=== PATIENT | male | born 1965 | race African-American/Black ===

== ENCOUNTER 2019-10-07 11:35 | Emergency (ER) | payer MEDICAID, OTHER ==
[~2019-10-07] VITALS: Ht 157.5 cm; Wt 63.5 kg
--- NOTE | 2019-10-07 11:35 | NUR ---
ED Nurse Note: Pt brought in by ambulance from [facility] d/t hgb < 7. Pt is A+Ox0, nonverbal. Per EMS, this is pt's baseline. Respirations are even and unlabored on cool aerosol T-piece. O2 saturation 100%. All other vitals stable as documented. BP 90s sytolic. ED MD aware and NS will be ordered and administered. G-tube noted. Pt placed in monitored bed.
--- NOTE | 2019-10-07 11:42 | Emergency Room Report ---
History of Present Illness General Chief Complaint: Abnormal Labs Source: EMS Present Illness HPI Disclaimer: Please note that this report is being documented using DRAGON technology. This can lead to erroneous entry secondary to incorrect interpretation by the dictating instrument. HPI: This is a 54-year-old male presenting from assisted living facility for evaluation of anemia and elevated BUN. The patient has a history of intracranial bleed with resultant paraplegia, nonverbal, trach to humidified air and G-tube dependent feeding. He does not follow commands. According to transport paperwork the patient was found to have a hemoglobin of 6.6 and hematocrit of 22.9% this morning on labs. Also found to have an elevated BUN. Paperwork also states he is being treated for a left eye infection with ophthalmic drops. Patient is nonverbal cannot provide any history. PMH: Intracranial hemorrhage, paraplegia, nonverbal baseline, trach dependent, G -tube feeding dependent PSH: Tracheostomy, G-tube feeds Allergies: Reviewed Social Hx: Unable to obtain Allergies: Coded Allergies: No Known Allergies (Unverified , 10/07/19) Review of Systems All Other Systems: limited - Patient clinical condition Physical Exam Vital Signs Date Time Temp Pulse Resp B/P (MAP) Pulse Ox O2 Delivery O2 Flow Rate FiO2 10/07/19 11:26 98.4 80 18 94/60 (71) 100 Room Air General: Awake HEENT: NC/AT. Left eye is closed, right eyes open. Right eye is normal in appearance. Left cornea is opacified and sclera is erythematous. No active exudate at this time. Neck: Tracheostomy collar in place Cardiovascular: RRR. S1 and S2 normal. No murmur appreciated Resp: Normal work of breathing. No cough, wheezing or crackles appreciated Abdomen: Abdomen is soft, nondistended. G-tube site clean dry and intact MSK: Decreased bulk. Spasticity in the left upper extremity Neuro: Awake. Nonverbal. No spontaneous movements. Spasticity in the left upper extremity. Flaccid on the right. Medical Decision Making Diagnostic Impression: Primary Impression: Anemia Additional Impressions: Leukocytosis Thrombocytosis TR (acute kidney injury) ER Course 54-year-old male presents from his surgical nursing facility for evaluation of elevated BUN and low hemoglobin. He has a history of anemia. Will repeat labs to confirm these values and prepare for transfusion. He will require admission. Laboratory Tests Test 10/07/19 11:50 White Blood Count 20.1 K/UL (4.8-10.8) H Red Blood Count 2.61 M/UL (4.70-6.10) L Hemoglobin 7.5 G/DL (14.2-18.0) L Hematocrit 22.7 % (42.0-52.0) L Mean Corpuscular Volume 87 FL (80-99) Mean Corpuscular Hemoglobin 28.9 PG (27.0-31.0) Mean Corpuscular Hemoglobin Concent 33.2 G/DL (32.0-36.0) Red Cell Distribution Width 15.1 % (11.6-14.8) H Platelet Count 533 K/UL (150-450) H Mean Platelet Volume 7.9 FL (6.5-10.1) Neutrophils (%) (Auto) % (45.0-75.0) Lymphocytes (%) (Auto) % (20.0-45.0) Monocytes (%) (Auto) % (1.0-10.0) Eosinophils (%) (Auto) % (0.0-3.0) Basophils (%) (Auto) % (0.0-2.0) Differential Total Cells Counted 100 Neutrophils % (Manual) 71 % (45-75) Lymphocytes % (Manual) 20 % (20-45) Monocytes % (Manual) 7 % (1-10) Eosinophils % (Manual) 2 % (0-3) Basophils % (Manual) 0 % (0-2) Band Neutrophils 0 % (0-8) Platelet Estimate Adequate Platelet Morphology Normal Hypochromasia 3+ Anisocytosis 1+ Sodium Level 138 MMOL/L (136-145) Potassium Level 4.2 MMOL/L (3.5-5.1) Chloride Level 103 MMOL/L (98-107) Carbon Dioxide Level 35 MMOL/L (21-32) H Anion Gap 0 mmol/L (5-15) L Blood Urea Nitrogen 106 mg/dL (7-18) H Creatinine 1.9 MG/DL (0.55-1.30) H Estimate Glomerular Filtration Rate 45.2 mL/min (>60) Glucose Level 129 MG/DL (74-106) H Calcium Level 10.5 MG/DL (8.5-10.1) H Total Bilirubin 0.1 MG/DL (0.2-1.0) L Aspartate Amino Transferase (AST) 32 U/L (15-37) Alanine Aminotransferase (ALT) 23 U/L (12-78) Alkaline Phosphatase 108 U/L (46-116) Total Protein 8.7 G/DL (6.4-8.2) H Albumin 1.7 G/DL (3.4-5.0) L Globulin 7.0 g/dL Albumin/Globulin Ratio 0.2 (1.0-2.7) L Reevaluation Time: 13:35 Last Vital Signs Date Time Temp Pulse Resp B/P (MAP) Pulse Ox O2 Delivery O2 Flow Rate FiO2 10/07/19 11:26 98.4 80 18 94/60 (71) 100 Room Air Reevaluation Impression Labs do show anemia with a hemoglobin of 7.5. Also show a leukocytosis and thrombocytosis. Creatinine elevated 1.9 with a BUN of 108. Discussed with [facility] physician who is excepted for transfer on telemetry. Asked for a FOBT stool. Stool is dark but negative for blood. He states the anemia, leukocytosis and elevated platelets are the patient's baseline. He is not recommending transfusion at this time. We will continue IV fluids and transfer the patient to a [facility] hospital. Disposition: XFER SHT-TRM HOSP Condition: Stable Jai Buck MD Oct 07, 2019 11:42
[2019-10-07 11:45] VITALS: BP 90/55
[2019-10-07 12:11] LABS: HEMATOCRIT 22.7 % (42.0-52.0); HEMOGLOBIN 7.5 G/DL (14.2-18.0); MEAN CORPUSCULAR VOLUME 87 FL (80-99); PLATELET COUNT 533 K/UL (150-450); RED BLOOD COUNT 2.61 M/UL (4.70-6.10); RED CELL DISTRIBUTION WIDTH 15.1 % (11.6-14.8); WHITE BLOOD COUNT 20.1 K/UL (4.8-10.8)
[2019-10-07 12:28] LABS: ALANINE AMINOTRANSFERASE 23 U/L (12-78); ALBUMIN 1.7 G/DL (3.4-5.0); ALBUMIN/GLOBULIN RATIO 0.2 (1.0-2.7); ALKALINE PHOSPHATASE 108 U/L (46-116); ANION GAP 0 mmol/L (5-15); ASPARTATE AMINO TRANSFERASE 32 U/L (15-37); BILIRUBIN,TOTAL 0.1 MG/DL (0.2-1.0); BLOOD UREA NITROGEN 106 mg/dL (7-18); CARBON DIOXIDE 35 MMOL/L (21-32); CHLORIDE 103 MMOL/L (98-107); CREATININE 1.9 MG/DL (0.55-1.30); POTASSIUM 4.2 MMOL/L (3.5-5.1); SODIUM 138 MMOL/L (136-145)
[2019-10-07] MEDS ORDERED: ZINC SULFATE220 M1 GT (12:32)
[2019-10-07] MEDS ORDERED: COLACE100 MG GT (12:32)
[2019-10-07] MEDS ORDERED: VITAMIN C500 M1 GT (12:32)
[2019-10-07] MEDS ORDERED: MILK OF MA400 MG/51 ESINUS (12:32)
[2019-10-07] MEDS ORDERED: ALBUTEROL2.5 MG/3 M INH (12:32)
[2019-10-07] MEDS ORDERED: SENNA S TABLET1 EAC1 PO (12:32)
[2019-10-07] MEDS ORDERED: BACTRIM-DS1 EA ORAL (12:32)
[2019-10-07] MEDS ORDERED: FERROUS SULFAT325 MG GT (12:32)
[2019-10-07 13:10] LABS: CALCIUM 10.5 MG/DL (8.5-10.1)
--- NOTE | 2019-10-07 13:52 | NUR ---
ED Nurse Note: Rectal exam done by ERMD and assisted by 1 RN.
--- NOTE | 2019-10-07 14:53 | NUR ---
ED Nurse Note: Report given to NICOLE Sainz @ [facility].
--- NOTE | 2019-10-07 14:56 | NUR ---
ED Nurse Note: [facility] 26 @ bedside. Report given to ambulance personnel
[2019-10-07 15:10] VITALS: BP 94/59
--- NOTE | 2019-10-07 15:10 | NUR ---
ED Nurse Note: Pt in stable condition, discharging with IVs accompanied by ambulance personnel. Vitals stable as documented. Respirations even and unlabored on cool aerosol on the tracheostomy. Pt discharged safely en route to [facility]. ID band removed.
--- NOTE | 2019-10-07 15:14 | NUR ---
patients daughter has been notified regarding the transfer to [facility]
== END 2019-10-07 15:10 | disposition short-term general hospital (02) ==
LOC: EDBD 11:35 → EMR 12:00 → CANBEDREQ 12:36 → EDBEDREQ 13:26 → EMR 15:10
DX: D64.9 Anemia, unspecified (principal); D72.829 Elevated white blood cell count, unspecified; D47.3 Essential (hemorrhagic) thrombocythemia; N17.9 Acute kidney failure, unspecified; G82.20 Paraplegia, unspecified; Z93.0 Tracheostomy status; Z93.1 Gastrostomy status; Z86.79 Personal history of other diseases of the circulatory system
CPT/HCPCS: 36415; 80053; 85007; 85025; 86850; 86900; 86901; 96360; J7030; Z7502; 99284

== ENCOUNTER 2019-12-30 19:26 | Inpatient (IN) | payer MEDICAID, OTHER ==
[~2019-12-30] VITALS: Ht 165.1 cm; Wt 84.4 kg
[~2019-12-30 19:26] MED LIST: ALBUTEROL2.5 MG/3 M INH; BACTRIM-DS1 EA ORAL; COLACE100 MG GT; FERROUS SULFAT325 MG GT; MILK OF MA400 MG/51 ESINUS; SENNA S TABLET1 EAC1 PO; VITAMIN C500 M1 GT; ZINC SULFATE220 M1 GT
[2019-12-30 19:30] VITALS: BP 102/51
--- NOTE | 2019-12-30 19:33 | Emergency Room Report ---
History of Present Illness General Chief Complaint: Coffee-ground emesis Source: Medical Record, EMS Present Illness HPI Disclaimer: Please note that this report is being documented using DRAGON technology. This can lead to erroneous entry secondary to incorrect interpretation by the dictating instrument. HPI: This is a 54-year-old male who is trach and vent dependent presenting from convalescent home for evaluation of coffee-ground emesis. The patient has a history of intracranial bleed with resultant paraplegia, nonverbal, trach and G- tube dependent. He does not follow commands. According to transport paperwork the patient was f at 1 hour of coffee-ground emesis prior to arrival. Also found to have an elevated BUN. Patient is nonverbal cannot provide any history. No reports of fever or changes in vital signs. PMH: Intracranial hemorrhage, paraplegia, nonverbal baseline, trach dependent, G -tube feeding dependent PSH: Tracheostomy, G-tube feeds Allergies: Reviewed in chart Social Hx: Unable to obtain Allergies: Coded Allergies: No Known Allergies (Unverified , 10/07/19) Nursing Documentation-PMH Hx Hypertension: Yes Hx Diabetes: Yes Hx Cerebrovascular Accident: Yes - BRAIN BLEED Review of Systems All Other Systems: limited - Unable to obtain from patient due to Physical Exam General: Sleeping comfortably, no distress HEENT: NC/AT. Arrives in an [place] collar. Dark emesis stains around collar Neck: Tracheostomy collar in place, arrives in [place] collar Cardiovascular: RRR. S1 and S2 normal. No murmur appreciated Resp: Vent dependent. Normal work of breathing. No cough, wheezing or crackles appreciated Abdomen: Abdomen is soft, nondistended. G-tube site clean dry and intact MSK: Decreased bulk. Spasticity in the left upper extremity Neuro: Awake. Nonverbal. No spontaneous movements. Spasticity in the left upper extremity. Flaccid on the right. Procedures Critical Care Time Critical Care Time Total critical care time: Approximately 45 minutes Due to a high probability of clinically significant, life threatening deterioration, the patient required the highest level of preparedness to intervene emergently and I personally spent this critical care time directly and personally managing the patient. This critical care time included obtaining a history, examining the patient, pulse oximetry, ordering and reviewing studies , ordering treatments, evaluating response to treatment and updating management plan as needed, frequent reassessment and discussion with other providers as well as arranging for ultimate disposition. This critical to care time was performed to assess and manage the high probability of life-threatening deterioration that could result in multiorgan failure. This critical care time is separate from the separately billable procedures and treating other patients. Medical Decision Making Diagnostic Impression: Primary Impression: Upper GI bleed Additional Impressions: Hyperkalemia ARF (acute renal failure) Hyponatremia ER Course 54-year-old male who is trach and G-tube dependent presents for evaluation of coffee-ground emesis. Concern for upper GI bleed. On arrival the patient had one episode of coffee-ground emesis witnessed by nursing staff as well as some bright red vomitus as well. Will obtain broad labs, give Protonix, ceftriaxone and the patient will require admission. Patient was swabbed for COVID at his facility 1 week ago but the results are still pending. We will keep in respiratory isolation. Patient will be admitted to D, Dr. De Dios Laboratory Tests Test 12/30/19 19:50 12/30/19 21:45 Prothrombin Time 13.8 SEC (9.30-11.50) H Prothrombin Time INR 1.3 (0.9-1.1) H Activated Partial Thromboplast Time 29 SEC (23-33) White Blood Count 17.7 K/UL (4.8-10.8) H Red Blood Count 2.65 M/UL (4.70-6.10) L Hemoglobin 7.8 G/DL (14.2-18.0) L Hematocrit 24.4 % (42.0-52.0) L Mean Corpuscular Volume 92 FL (80-99) Mean Corpuscular Hemoglobin 29.6 PG (27.0-31.0) Mean Corpuscular Hemoglobin Concent 32.2 G/DL (32.0-36.0) Red Cell Distribution Width 16.6 % (11.6-14.8) H Platelet Count 78 K/UL (150-450) L Mean Platelet Volume 13.2 FL (6.5-10.1) H Neutrophils (%) (Auto) % (45.0-75.0) Lymphocytes (%) (Auto) % (20.0-45.0) Monocytes (%) (Auto) % (1.0-10.0) Eosinophils (%) (Auto) % (0.0-3.0) Basophils (%) (Auto) % (0.0-2.0) Neutrophils % (Manual) Pending Lymphocytes % (Manual) Pending Platelet Estimate Pending Platelet Morphology Pending Sodium Level 122 MMOL/L (136-145) L Potassium Level 7.2 MMOL/L (3.5-5.1) *H Chloride Level 86 MMOL/L (98-107) L Carbon Dioxide Level 23 MMOL/L (21-32) Anion Gap 13 mmol/L (5-15) Blood Urea Nitrogen 220 mg/dL (7-18) H Creatinine 5.3 MG/DL (0.55-1.30) H Estimated Glomerular Filtration Rate 13.8 mL/min (>60) Glucose Level 170 MG/DL (74-106) H Calcium Level 10.5 MG/DL (8.5-10.1) H Total Bilirubin 0.3 MG/DL (0.2-1.0) Aspartate Amino Transferase (AST) 63 U/L (15-37) H Alanine Aminotransferase (ALT) 50 U/L (12-78) Alkaline Phosphatase 127 U/L (46-116) H Total Protein 6.5 G/DL (6.4-8.2) Albumin 0.8 G/DL (3.4-5.0) L Globulin 5.7 g/dL Albumin/Globulin Ratio 0.1 (1.0-2.7) L EKG Diagnostic Results EKG Time: 19:45 Rate: normal Rhythm: NSR ST Segments: no acute changes Other Impression Sinus rhythm, slight left axis, first-degree block with IL interval 224 ms, slight peaking of T waves in V1 and V2 Rhythm Strip Diag. Results Rhythm Strip Time: 19:45 EP Interpretation: yes Rate: 80s Rhythm: NSR, no PVC's, no ectopy Chest X-Ray Diagnostic Results Chest X-Ray Diagnostic Results : Chest X-Ray Ordered: Yes # of Views/Limited/Complete: 1 View Indication: Other - Vomiting EP Interpretation: Yes Interpretation: other - Bilateral lower lobe congestion Impression: Other - Bilateral hazy opacities lower lobes Electronically Signed by: Electronically signed by Dr. Jai Buck Reevaluation Time: 22:18 Status: unchanged Reevaluation Impression Hemoglobin below 8, patient will be transfused. Elevated white count at 17.7. COVID swab is pending from outpatient facility. Treat with ceftriaxone send blood cultures. Chemistry shows a critical potassium at 7.2, sodium of 122, acute renal failure with a GFR of 5.3 and a BUN of 220. There is peaking of the T waves in V1 and V2. Patient was treated with calcium gluconate, insulin and dextrose. Admitted to [facility]. Disposition: ADMITTED INPATIENT Condition: Serious Jai Buck MD December 30, 2019 19:33
[2019-12-30] MEDS ORDERED: Pantoprazole Inj IVP ONE (19:45)
[2019-12-30 20:40] LABS: INR 1.3 (0.9-1.1)
[2019-12-30 21:00] VITALS: BP 113/56
[2019-12-30] MEDS ORDERED: cefTRIAXone 1 GM in NS 55 ML IVPB ONE (21:00)
[2019-12-30 21:55] LABS: HEMATOCRIT 24.4 % (42.0-52.0); HEMOGLOBIN 7.8 G/DL (14.2-18.0); MEAN CORPUSCULAR VOLUME 92 FL (80-99); PLATELET COUNT 78 K/UL (150-450); RED BLOOD COUNT 2.65 M/UL (4.70-6.10); RED CELL DISTRIBUTION WIDTH 16.6 % (11.6-14.8); WHITE BLOOD COUNT 17.7 K/UL (4.8-10.8)
[2019-12-30 22:11] LABS: ALANINE AMINOTRANSFERASE 50 U/L (12-78); ALBUMIN 0.8 G/DL (3.4-5.0); ALBUMIN/GLOBULIN RATIO 0.1 (1.0-2.7); ALKALINE PHOSPHATASE 127 U/L (46-116); ANION GAP 13 mmol/L (5-15); ASPARTATE AMINO TRANSFERASE 63 U/L (15-37); BILIRUBIN,TOTAL 0.3 MG/DL (0.2-1.0); BLOOD UREA NITROGEN 220 mg/dL (7-18); CALCIUM 10.5 MG/DL (8.5-10.1); CARBON DIOXIDE 23 MMOL/L (21-32); CHLORIDE 86 MMOL/L (98-107); CREATININE 5.3 MG/DL (0.55-1.30); SODIUM 122 MMOL/L (136-145)
[2019-12-30 22:13] LABS: POTASSIUM 7.2 MMOL/L (3.5-5.1)
[2019-12-30] MEDS ORDERED: Calcium Gluconate 1gm/10ml vial IVP ONE (22:30)
[2019-12-30] MEDS ORDERED: Insulin Human Regular 100units/ml 3ml IV ONE (22:30)
[2019-12-30 23:33] VITALS: BP 107/52
[2019-12-31] MEDS ORDERED: TYLENOL EXTRA500 MG GT ×2 (01:38→01:39)
[2019-12-31] MEDS ORDERED: LANTUS SOL100 UNIT/1 SUBQ (01:40)
[2019-12-31 01:45] VITALS: BP 140/55
[2019-12-31] MEDS ORDERED: HUMALOG100 UNIT/1 SUBQ (01:49)
[2019-12-31] MEDS ORDERED: ARTIFICIAL TEAR15 ML BOTH EYES (01:53)
[2019-12-31] MEDS ORDERED: ATORVASTATIN CA80 MG ORAL (01:53)
[2019-12-31] MEDS ORDERED: ZYVOX600 MG GT (01:53)
[2019-12-31] MEDS ORDERED: ATORVASTATIN CA80 MG GT (01:54)
[2019-12-31 04:00] VITALS: BP 128/80
[2019-12-31] MEDS ORDERED: Albuterol ud Inhalation HHN PRN (07:45)
[2019-12-31] MEDS ORDERED: Acetaminophen 650mg/20.3ml GT PRN ×2 (07:45)
[2019-12-31 07:56] LABS: HEMATOCRIT 19.2 % (42.0-52.0); MEAN CORPUSCULAR VOLUME 85 FL (80-99); PLATELET COUNT 62 K/UL (150-450); RED BLOOD COUNT 2.26 M/UL (4.70-6.10); RED CELL DISTRIBUTION WIDTH 14.2 % (11.6-14.8); WHITE BLOOD COUNT 21.4 K/UL (4.8-10.8)
[2019-12-31 08:00] VITALS: BP 130/52
[2019-12-31 08:01] LABS: HEMOGLOBIN 6.7 G/DL (14.2-18.0)
[2019-12-31 08:09] LABS: CREATINE KINASE 20 U/L (26-308)
--- NOTE | 2019-12-31 08:09 | History & Physical ---
History and Physical History & Physicial 54-year-old male who is trach and vent dependent presenting from convalescent home for evaluation of coffee-ground emesis. The patient found to be in acute renal failure with elevated K and sever anemia care noted. patient has been in and out of the acute hospital now for the past several months PMH: Intracranial hemorrhage, paraplegia, bed bound, renal failure, trach dependent, G-tube feeding dependent, anemia PSH: Tracheostomy, G-tube feeds Allergies: Reviewed in chart Social Hx: Unable to obtain Allergies: No Known Allergies (Unverified , 10/07/19) Physical WDWN ill appearing clear breath sounds bilaterally without rhonchi or wheeze [id number] without MRG NABS nontender no HSM no CCE trach and GT in place poor LOC Labs Test 12/30/19 19:50 12/30/19 21:45 12/31/19 07:30 Prothrombin Time 13.8 SEC (9.30-11.50) Prothromb Time International Ratio 1.3 (0.9-1.1) Activated Partial Thromboplast Time 29 SEC (23-33) White Blood Count 17.7 K/UL (4.8-10.8) 21.4 K/UL (4.8-10.8) Red Blood Count 2.65 M/UL (4.70-6.10) 2.26 M/UL (4.70-6.10) Hemoglobin 7.8 G/DL (14.2-18.0) 6.7 G/DL (14.2-18.0) Hematocrit 24.4 % (42.0-52.0) 19.2 % (42.0-52.0) Mean Corpuscular Volume 92 FL (80-99) 85 FL (80-99) Mean Corpuscular Hemoglobin 29.6 PG (27.0-31.0) 29.8 PG (27.0-31.0) Mean Corpuscular Hemoglobin Concent 32.2 G/DL (32.0-36.0) 35.1 G/DL (32.0-36.0) Red Cell Distribution Width 16.6 % (11.6-14.8) 14.2 % (11.6-14.8) Platelet Count 78 K/UL (150-450) 62 K/UL (150-450) Mean Platelet Volume 13.2 FL (6.5-10.1) 10.3 FL (6.5-10.1) Neutrophils (%) (Auto) % (45.0-75.0) % (45.0-75.0) Lymphocytes (%) (Auto) % (20.0-45.0) % (20.0-45.0) Monocytes (%) (Auto) % (1.0-10.0) % (1.0-10.0) Eosinophils (%) (Auto) % (0.0-3.0) % (0.0-3.0) Basophils (%) (Auto) % (0.0-2.0) % (0.0-2.0) Differential Total Cells Counted 100 Neutrophils % (Manual) 87 % (45-75) Lymphocytes % (Manual) 11 % (20-45) Monocytes % (Manual) 2 % (1-10) Eosinophils % (Manual) 0 % (0-3) Basophils % (Manual) 0 % (0-2) Band Neutrophils 0 % (0-8) Platelet Estimate Decreased Platelet Morphology Normal Polychromasia 1+ Anisocytosis 1+ Sodium Level 122 MMOL/L (136-145) Potassium Level 7.2 MMOL/L (3.5-5.1) Chloride Level 86 MMOL/L (98-107) Carbon Dioxide Level 23 MMOL/L (21-32) Anion Gap 13 mmol/L (5-15) Blood Urea Nitrogen 220 mg/dL (7-18) Creatinine 5.3 MG/DL (0.55-1.30) Estimat Glomerular Filtration Rate 13.8 mL/min (>60) Glucose Level 170 MG/DL (74-106) Calcium Level 10.5 MG/DL (8.5-10.1) Total Bilirubin 0.3 MG/DL (0.2-1.0) Aspartate Amino Transf (AST/SGOT) 63 U/L (15-37) Alanine Aminotransferase (ALT/SGPT) 50 U/L (12-78) Alkaline Phosphatase 127 U/L (46-116) Total Protein 6.5 G/DL (6.4-8.2) Albumin 0.8 G/DL (3.4-5.0) Globulin 5.7 g/dL Albumin/Globulin Ratio 0.1 (1.0-2.7) IMPRESSION chronic respiratory failure Acute on chronic renal failure elevated K anemia GIB leukocytosis possible sepsis PLAN transfuse IV hydration iv antibiotics ID , GI and renal to see vent hold feeds resume snf meds will d/w family as to advance directives prognosis poor impression, plan, and exam edited and reviewed in detail care discussed with Lorenzo Chase MD December 31, 2019 08:09
--- NOTE | 2019-12-31 08:09 | General Progress Note ---
Subjective Allergies: Coded Allergies: No Known Allergies (Unverified , 10/07/19) Objective Last 24 Hour Vital Signs Date Time Temp Pulse Resp B/P (MAP) Pulse Ox O2 Delivery O2 Flow Rate FiO2 12/31/19 07:20 57 24 40 12/31/19 05:15 67 24 40 12/31/19 04:00 Mechanical Ventilator 5.0 12/31/19 04:00 5.0 40 12/31/19 04:00 96.1 24 128/80 (96) 12/31/19 03:55 66 12/31/19 03:27 Mechanical Ventilator 5.0 12/31/19 02:30 83 24 40 12/31/19 02:15 98.1 75 21 158/59 98 Mechanical Ventilator 5.0 40 12/31/19 01:55 98.1 75 24 12/31/19 01:50 98.1 75 24 12/31/19 01:45 98.1 72 24 12/31/19 01:45 98.1 72 24 140/55 98 Mechanical Ventilator 5.0 40 12/31/19 01:05 80 24 40 12/31/19 00:27 98.2 66 18 12/31/19 00:22 98.1 66 18 12/31/19 00:17 98.2 66 18 12/30/19 23:33 98.1 63 18 107/52 98 Endotracheal Tube 5.0 12/30/19 23:28 64 24 40 12/30/19 21:15 64 24 40 12/30/19 21:00 98.1 64 16 113/56 98 Endotracheal Tube 5.0 12/30/19 19:30 68 18 Mechanical Ventilator 5.0 12/30/19 19:30 75 24 40 12/30/19 19:30 98.1 68 18 102/51 98 Endotracheal Tube 12/30/19 19:29 98.1 106 18 145/85 (105) 98 Endotracheal Tube Intake and Output 12/30/19 12/31/19 19:00 07:00 Intake Total 1652 ml Output Total 700 ml Balance 952 ml Intake IV Total 1127 ml Blood Product 525 ml Output Urine Total 500 ml Stool Total 200 ml # Voids 2 # Bowel Movements 1 Laboratory Tests 12/30/19 19:50: Prothrombin Time 13.8H, Prothromb Time International Ratio 1.3H, Activated Partial Thromboplast Time 29 12/30/19 21:45: White Blood Count 17.7H, Red Blood Count 2.65L, Hemoglobin 7.8L, Hematocrit 24.4L, Mean Corpuscular Volume 92, Mean Corpuscular Hemoglobin 29.6, Mean Corpuscular Hemoglobin Concent 32.2, Red Cell Distribution Width 16.6H, Platelet Count 78L, Mean Platelet Volume 13.2H, Neutrophils (%) (Auto) , Lymphocytes (%) (Auto) , Monocytes (%) (Auto) , Eosinophils (%) (Auto) , Basophils (%) (Auto) , Differential Total Cells Counted 100, Neutrophils % ( Manual) 87H, Lymphocytes % (Manual) 11L, Monocytes % (Manual) 2, Eosinophils % ( Manual) 0, Basophils % (Manual) 0, Band Neutrophils 0, Platelet Estimate DecreasedL, Platelet Morphology Normal, Polychromasia 1+, Anisocytosis 1+, Sodium Level 122L, Potassium Level 7.2*H, Chloride Level 86L, Carbon Dioxide Level 23, Anion Gap 13, Blood Urea Nitrogen 220H, Creatinine 5.3H, Estimat Glomerular Filtration Rate 13.8, Glucose Level 170H, Calcium Level 10.5H, Total Bilirubin 0.3, Aspartate Amino Transf (AST/SGOT) 63H, Alanine Aminotransferase ( ALT/SGPT) 50, Alkaline Phosphatase 127H, Total Protein 6.5, Albumin 0.8L, Globulin 5.7, Albumin/Globulin Ratio 0.1L 12/31/19 07:30: White Blood Count 21.4H, Red Blood Count 2.26L, Hemoglobin 6.7*L, Hematocrit 19.2L, Mean Corpuscular Volume 85, Mean Corpuscular Hemoglobin 29.8, Mean Corpuscular Hemoglobin Concent 35.1, Red Cell Distribution Width 14.2, Platelet Count 62L, Mean Platelet Volume 10.3H, Neutrophils (%) (Auto) , Lymphocytes (%) (Auto) , Monocytes (%) (Auto) , Eosinophils (%) (Auto) , Basophils (%) (Auto) , Neutrophils % (Manual) [Pending], Lymphocytes % (Manual) [Pending], Platelet Estimate [Pending], Platelet Morphology [Pending], Sodium Level [Pending], Potassium Level [Pending], Chloride Level [Pending], Carbon Dioxide Level [ Pending], Blood Urea Nitrogen [Pending], Creatinine [Pending], Estimat Glomerular Filtration Rate [Pending], Glucose Level [Pending], Calcium Level [ Pending], Uric Acid [Pending], Total Creatine Kinase [Pending] Height (Feet): 5 Height (Inches): 5.00 Weight (Pounds): 146 Lorenzo De Dios MD December 31, 2019 08:09
[2019-12-31 08:29] LABS: ANION GAP 16 mmol/L (5-15); BLOOD UREA NITROGEN 217 mg/dL (7-18); CARBON DIOXIDE 20 MMOL/L (21-32); CHLORIDE 88 MMOL/L (98-107); CREATININE 5.2 MG/DL (0.55-1.30); SODIUM 124 MMOL/L (136-145)
[2019-12-31 08:30] LABS: POTASSIUM 6.5 MMOL/L (3.5-5.1)
[2019-12-31] MEDS: Lokelma 10gm Pkt ORAL SCH ×3 (08:40→22:29)
[2019-12-31] MEDS ORDERED: Ascorbic Acid 500mg tab GT SCH (09:00)
--- NOTE | 2019-12-31 09:31 | Diagnostic Imaging Report ---
Procedure: XRAY Chest 1v Reason for study: Reason For Exam: SOB Comparison films: None. FINDINGS: There is a tracheostomy in place. Vascularity is normal. Hazy densities in the lung bases may be layering effusions. Cardiac and mediastinal silhouette are within normal limits. The bony thorax appear unremarkable. IMPRESSION: Bibasilar hazy densities perhaps layering effusions.
[2019-12-31] MEDS: Docusate 100mg/10ml Liq GT SCH (10:01)
[2019-12-31] MEDS: Ferrous Sulfate 300 MG/5 ML UDC GT SCH (10:01)
[2019-12-31] MEDS: Milk of Magnesia 30ml Ud GT SCH (10:01)
[2019-12-31] MEDS: Ascorbic Acid 500mg tab GT SCH (10:02)
[2019-12-31] MEDS: Zinc Sulfate 220mg GT SCH (10:02)
[2019-12-31] MEDS: Pantoprazole Inj IVP SCH (10:02)
[2019-12-31] MEDS: Piperacillin/Tazobactam 3.375 GM in NS 110 ML IVPB SCH ×2 (10:02→22:21)
[2019-12-31] MEDS: Levemir Flexpen SUBQ SCH ×2 (10:06→21:00)
--- NOTE | 2019-12-31 11:09 | General Progress Note ---
Assessment/Plan Assessment/Plan: sepsis anemia GIB thrombocytopenia hyponatremia ARF DM dysphagia with GT pending blood transfusion ppi bid keep npo GI procedures on hold pending COVID clearance fu H&H fu nephrology plan TF tomorrow if stable Subjective ROS Limited/Unobtainable: No Allergies: Coded Allergies: No Known Allergies (Unverified , 10/07/19) Objective Last 24 Hour Vital Signs Date Time Temp Pulse Resp B/P (MAP) Pulse Ox O2 Delivery O2 Flow Rate FiO2 12/31/19 11:03 54 24 40 12/31/19 09:15 64 24 40 12/31/19 08:00 77 12/31/19 08:00 96.3 18 130/52 (78) 100 12/31/19 08:00 5.0 40 12/31/19 08:00 Mechanical Ventilator 5.0 12/31/19 08:00 57 12/31/19 07:20 57 24 40 12/31/19 05:15 67 24 40 12/31/19 04:00 Mechanical Ventilator 5.0 12/31/19 04:00 5.0 40 12/31/19 04:00 96.1 24 128/80 (96) 12/31/19 03:55 66 12/31/19 03:27 Mechanical Ventilator 5.0 12/31/19 02:30 83 24 40 12/31/19 02:15 98.1 75 21 158/59 98 Mechanical Ventilator 5.0 40 12/31/19 01:55 98.1 75 24 12/31/19 01:50 98.1 75 24 12/31/19 01:45 98.1 72 24 12/31/19 01:45 98.1 72 24 140/55 98 Mechanical Ventilator 5.0 40 12/31/19 01:05 80 24 40 12/31/19 00:27 98.2 66 18 12/31/19 00:22 98.1 66 18 12/31/19 00:17 98.2 66 18 12/30/19 23:33 98.1 63 18 107/52 98 Endotracheal Tube 5.0 12/30/19 23:28 64 24 40 12/30/19 21:15 64 24 40 12/30/19 21:00 98.1 64 16 113/56 98 Endotracheal Tube 5.0 12/30/19 19:30 68 18 Mechanical Ventilator 5.0 12/30/19 19:30 75 24 40 12/30/19 19:30 98.1 68 18 102/51 98 Endotracheal Tube 12/30/19 19:29 98.1 106 18 145/85 (105) 98 Endotracheal Tube Intake and Output 12/30/19 12/31/19 19:00 07:00 Intake Total 1652 ml Output Total 700 ml Balance 952 ml Intake IV Total 1127 ml Blood Product 525 ml Output Urine Total 500 ml Stool Total 200 ml # Voids 2 # Bowel Movements 1 Laboratory Tests 12/30/19 19:50: Prothrombin Time 13.8H, Prothromb Time International Ratio 1.3H, Activated Partial Thromboplast Time 29 12/30/19 21:45: White Blood Count 17.7H, Red Blood Count 2.65L, Hemoglobin 7.8L, Hematocrit 24.4L, Mean Corpuscular Volume 92, Mean Corpuscular Hemoglobin 29.6, Mean Corpuscular Hemoglobin Concent 32.2, Red Cell Distribution Width 16.6H, Platelet Count 78L, Mean Platelet Volume 13.2H, Neutrophils (%) (Auto) , Lymphocytes (%) (Auto) , Monocytes (%) (Auto) , Eosinophils (%) (Auto) , Basophils (%) (Auto) , Differential Total Cells Counted 100, Neutrophils % ( Manual) 87H, Lymphocytes % (Manual) 11L, Monocytes % (Manual) 2, Eosinophils % ( Manual) 0, Basophils % (Manual) 0, Band Neutrophils 0, Platelet Estimate DecreasedL, Platelet Morphology Normal, Polychromasia 1+, Anisocytosis 1+, Sodium Level 122L, Potassium Level 7.2*H, Chloride Level 86L, Carbon Dioxide Level 23, Anion Gap 13, Blood Urea Nitrogen 220H, Creatinine 5.3H, Estimat Glomerular Filtration Rate 13.8, Glucose Level 170H, Calcium Level 10.5H, Total Bilirubin 0.3, Aspartate Amino Transf (AST/SGOT) 63H, Alanine Aminotransferase ( ALT/SGPT) 50, Alkaline Phosphatase 127H, Total Protein 6.5, Albumin 0.8L, Globulin 5.7, Albumin/Globulin Ratio 0.1L 12/31/19 07:30: White Blood Count 21.4H, Red Blood Count 2.26L, Hemoglobin 6.7*L, Hematocrit 19.2L, Mean Corpuscular Volume 85, Mean Corpuscular Hemoglobin 29.8, Mean Corpuscular Hemoglobin Concent 35.1, Red Cell Distribution Width 14.2, Platelet Count 62L, Mean Platelet Volume 10.3H, Neutrophils (%) (Auto) , Lymphocytes (%) (Auto) , Monocytes (%) (Auto) , Eosinophils (%) (Auto) , Basophils (%) (Auto) , Differential Total Cells Counted 100, Neutrophils % (Manual) 81H, Lymphocytes % (Manual) 9L, Monocytes % (Manual) 5, Eosinophils % (Manual) 5H, Basophils % ( Manual) 0, Band Neutrophils 0, Platelet Estimate DecreasedL, Platelet Morphology Normal, Sodium Level 124L, Potassium Level 6.5*H, Chloride Level 88L , Carbon Dioxide Level 20L, Anion Gap 16H, Blood Urea Nitrogen 217H, Creatinine 5.2H, Estimat Glomerular Filtration Rate 14.2, Glucose Level 132H, Calcium Level 10.0, Hypochromasia 4+, Uric Acid 8.3H, Total Creatine Kinase 20L Height (Feet): 5 Height (Inches): 5.00 Weight (Pounds): 146 General Appearance: no apparent distress EENT: normal ENT inspection Neck: supple Cardiovascular: tachycardia Respiratory/Chest: decreased breath sounds Abdomen: normal bowel sounds, non tender, soft Extremities: non-tender Toni Mckenzie MD December 31, 2019 11:09
[2019-12-31 12:00] VITALS: BP 131/54
[2019-12-31] MEDS: Insulin NovoLOG Flexpen S/S (Mod) SUBQ SCH ×3 (12:00→23:40)
[2019-12-31] MEDS ORDERED: Phytonadione 1 MG in D5W 55 ML IVPB SCH (12:00)
--- NOTE | 2019-12-31 13:06 | Consultation ---
History of Present Illness General Date patient seen: December 31, 2019 Reason for Hospitalization: Vomiting Present Illness HPI This is a 54-year-old male who is trach and vent dependent presenting from convalescent home for evaluation of coffee-ground emesis. The patient has a history of intracranial bleed with resultant paraplegia, nonverbal, trach and G- tube dependent. He does not follow commands. According to transport paperwork the patient was f at 1 hour of coffee-ground emesis prior to arrival. Also found to have an elevated BUN. Patient is nonverbal cannot provide any history. No reports of fever or changes in vital signs. Admitted for further care management. Identified to have abnormal labs, sepsis, decubitus ulcers, malnutrition. Surgery called to evaluate and assist with care. Patient seen, patient evaluated, chart reviewed PMH: Intracranial hemorrhage, paraplegia, nonverbal baseline, trach dependent, G -tube feeding dependent PSH: Tracheostomy, G-tube feeds Allergies: Coded Allergies: No Known Allergies (Unverified , 10/07/19) COVID-19 Screening Contact w/high risk pt: No Recent Travel to affected area: No Experienced COVID-19 symptoms?: No Medication History Scheduled Acetaminophen* (Tylenol Extra Strength*), 640 MG GT DAILY, (Reported) Ascorbic Acid* (Vitamin C*), 500 MG GT DAILY, (Reported) Atorvastatin Calcium* (Lipitor*), 80 MG ORAL BEDTIME, (Reported) Atorvastatin Calcium* (Lipitor*), 80 MG GT BEDTIME, (Reported) Dextran 70/Hypromellose (Artificial Tears Eye Drops*), 1 DROP BOTH EYES BID, ( Reported) Docusate Sodium* (Colace*), 100 MG GT DAILY, (Reported) Ferrous Sulfate* (Ferrous Sulfate*), 325 MG GT DAILY, (Reported) Insulin Glargine (Lantus), 25 SUBQ Q12HR, (Reported) Insulin Lispro (Humalog), 0 SUBQ EVERY 6 HOURS, (Reported) Linezolid* (Zyvox*), 600 MG GT EVERY 12 HOURS, (Reported) Magnesium Hydroxide* (Milk Of Magnesia*), 30 ML ESINUS DAILY, (Reported) Trimethoprim/Sulfamethoxazole (Bactrim Ds Tablet), 1 TAB ORAL TWICE A DAY, ( Reported) Zinc Sulfate (Zinc Sulfate*), 220 MG GT DAILY, (Reported) Scheduled PRN Acetaminophen* (Tylenol Extra Strength*), 640 MG GT Q6H PRN for For Pain, ( Reported) Albuterol Sulfate* (Albuterol Sulfate Hhn*), 3 ML INH Q6H PRN for Shortness of Breath, (Reported) Miscellaneous Medications Sennosides/Docusate Sodium (Senna S Tablet), 1 EACH PO, (Reported) Patient History Limited by: medical condition History Provided By: Medical Record, PMD Healthcare decision maker Resuscitation status Advanced Directive on File Review of Systems Review of Symptoms General ROS: no weight loss or fever Psychological ROS: no depression or mood changes, no memory loss Ophthalmic ROS: no visual changes or eye irritation ENT ROS: no nasal congestion, hearing loss, dizziness Allergy and Immunology ROS: no allergic symptoms or urticaria Hematological and Lymphatic ROS: no swollen glands, unusual bleeding or bruising Endocrine ROS: no polyuria, polydipsia, weight changes, temperature intolerance Respiratory ROS: no cough, shortness of breath, or wheezing Cardiovascular ROS: no chest pain or dyspnea on exertion Gastrointestinal ROS: denies abdominal pain, bright red blood in stool. Musculoskeletal ROS: no myalgias or arthralgias Neurological ROS: no TIA or stroke symptoms Dermatological ROS: no new or changing skin lesions, rashes or pruritis Physical Exam Physical Exam General appearance: alert, cooperative, no distress, appears stated age Head: Normocephalic, without obvious abnormality, atraumatic Eyes: conjunctivae/corneas clear. PERRL, EOM's intact. Fundi benign Throat: Lips, mucosa, and tongue normal. Teeth and gums normal Neck: supple, symmetrical, trach++, no adenopathy, thyroid: not enlarged, symmetric, no tenderness/mass/nodules, no carotid bruit and no JVD Lungs: clear to auscultation bilaterally Heart: regular rate and rhythm, S1, S2 normal, no murmur, click, rub or gallop Abdomen: soft, non-tender. Bowel sounds normal. No masses, no organomegaly ++ PEG Extremities: extremities normal, atraumatic, no cyanosis or edema Pulses: 2+ and symmetric Skin: Skindecubitus Neurologic: Grossly normal Last 24 Hour Vital Signs Date Time Temp Pulse Resp B/P (MAP) Pulse Ox O2 Delivery O2 Flow Rate FiO2 12/31/19 11:03 54 24 40 12/31/19 09:15 64 24 40 12/31/19 08:00 77 12/31/19 08:00 96.3 18 130/52 (78) 100 12/31/19 08:00 5.0 40 12/31/19 08:00 Mechanical Ventilator 5.0 12/31/19 08:00 57 12/31/19 07:20 57 24 40 12/31/19 05:15 67 24 40 12/31/19 04:00 Mechanical Ventilator 5.0 12/31/19 04:00 5.0 40 12/31/19 04:00 96.1 24 128/80 (96) 12/31/19 03:55 66 12/31/19 03:27 Mechanical Ventilator 5.0 12/31/19 02:30 83 24 40 12/31/19 02:15 98.1 75 21 158/59 98 Mechanical Ventilator 5.0 40 12/31/19 01:55 98.1 75 24 12/31/19 01:50 98.1 75 24 12/31/19 01:45 98.1 72 24 12/31/19 01:45 98.1 72 24 140/55 98 Mechanical Ventilator 5.0 40 12/31/19 01:05 80 24 40 12/31/19 00:27 98.2 66 18 12/31/19 00:22 98.1 66 18 12/31/19 00:17 98.2 66 18 12/30/19 23:33 98.1 63 18 107/52 98 Endotracheal Tube 5.0 12/30/19 23:28 64 24 40 12/30/19 21:15 64 24 40 12/30/19 21:00 98.1 64 16 113/56 98 Endotracheal Tube 5.0 12/30/19 19:30 68 18 Mechanical Ventilator 5.0 12/30/19 19:30 75 24 40 12/30/19 19:30 98.1 68 18 102/51 98 Endotracheal Tube 12/30/19 19:29 98.1 106 18 145/85 (105) 98 Endotracheal Tube Intake and Output 12/30/19 12/31/19 19:00 07:00 Intake Total 1652 ml Output Total 700 ml Balance 952 ml Intake IV Total 1127 ml Blood Product 525 ml Output Urine Total 500 ml Stool Total 200 ml # Voids 2 # Bowel Movements 1 Laboratory Tests Test 12/30/19 19:50 5/18/20 21:45 12/31/19 07:30 Prothrombin Time 13.8 SEC (9.30-11.50) H Prothromb Time International Ratio 1.3 (0.9-1.1) H Activated Partial Thromboplast Time 29 SEC (23-33) White Blood Count 17.7 K/UL (4.8-10.8) H 21.4 K/UL (4.8-10.8) H Red Blood Count 2.65 M/UL (4.70-6.10) L 2.26 M/UL (4.70-6.10) L Hemoglobin 7.8 G/DL (14.2-18.0) L 6.7 G/DL (14.2-18.0) *L Hematocrit 24.4 % (42.0-52.0) L 19.2 % (42.0-52.0) L Mean Corpuscular Volume 92 FL (80-99) 85 FL (80-99) Mean Corpuscular Hemoglobin 29.6 PG (27.0-31.0) 29.8 PG (27.0-31.0) Mean Corpuscular Hemoglobin Concent 32.2 G/DL (32.0-36.0) 35.1 G/DL (32.0-36.0) Red Cell Distribution Width 16.6 % (11.6-14.8) H 14.2 % (11.6-14.8) Platelet Count 78 K/UL (150-450) L 62 K/UL (150-450) L Mean Platelet Volume 13.2 FL (6.5-10.1) H 10.3 FL (6.5-10.1) H Neutrophils (%) (Auto) % (45.0-75.0) % (45.0-75.0) Lymphocytes (%) (Auto) % (20.0-45.0) % (20.0-45.0) Monocytes (%) (Auto) % (1.0-10.0) % (1.0-10.0) Eosinophils (%) (Auto) % (0.0-3.0) % (0.0-3.0) Basophils (%) (Auto) % (0.0-2.0) % (0.0-2.0) Differential Total Cells Counted 100 100 Neutrophils % (Manual) 87 % (45-75) H 81 % (45-75) H Lymphocytes % (Manual) 11 % (20-45) L 9 % (20-45) L Monocytes % (Manual) 2 % (1-10) 5 % (1-10) Eosinophils % (Manual) 0 % (0-3) 5 % (0-3) H Basophils % (Manual) 0 % (0-2) 0 % (0-2) Band Neutrophils 0 % (0-8) 0 % (0-8) Platelet Estimate Decreased L Decreased L Platelet Morphology Normal Normal Polychromasia 1+ Anisocytosis 1+ Sodium Level 122 MMOL/L (136-145) L 124 MMOL/L (136-145) L Potassium Level 7.2 MMOL/L (3.5-5.1) *H 6.5 MMOL/L (3.5-5.1) *H Chloride Level 86 MMOL/L (98-107) L 88 MMOL/L (98-107) L Carbon Dioxide Level 23 MMOL/L (21-32) 20 MMOL/L (21-32) L Anion Gap 13 mmol/L (5-15) 16 mmol/L (5-15) H Blood Urea Nitrogen 220 mg/dL (7-18) H 217 mg/dL (7-18) H Creatinine 5.3 MG/DL (0.55-1.30) H 5.2 MG/DL (0.55-1.30) H Estimat Glomerular Filtration Rate 13.8 mL/min (>60) 14.2 mL/min (>60) Glucose Level 170 MG/DL (74-106) H 132 MG/DL (74-106) H Calcium Level 10.5 MG/DL (8.5-10.1) H 10.0 MG/DL (8.5-10.1) Total Bilirubin 0.3 MG/DL (0.2-1.0) Aspartate Amino Transf (AST/SGOT) 63 U/L (15-37) H Alanine Aminotransferase (ALT/SGPT) 50 U/L (12-78) Alkaline Phosphatase 127 U/L (46-116) H Total Protein 6.5 G/DL (6.4-8.2) Albumin 0.8 G/DL (3.4-5.0) L Globulin 5.7 g/dL Albumin/Globulin Ratio 0.1 (1.0-2.7) L Hypochromasia 4+ Uric Acid 8.3 MG/DL (2.6-7.2) H Total Creatine Kinase 20 U/L (26-308) L Height (Feet): 5 Height (Inches): 5.00 Weight (Pounds): 146 Medications Current Medications Medications (Trade) Dose Ordered Sig/[place] Route PRN Reason Start Time Stop Time Status Last Admin Dose Admin Acetaminophen (Tylenol) 650 mg Q4H PRN GT Mild Pain (Pain Scale 1-3) 12/31/19 07:45 01/30/20 07:44 Acetaminophen (Tylenol) 650 mg Q4H PRN GT Temp >100.5 12/31/19 07:45 01/30/20 07:44 Al Hydroxide/Mg Hydroxide (Mylanta) 30 ml QIDPRN PRN GT stomach upset 12/31/19 08:00 01/30/20 07:59 Albuterol Sulfate (Proventil) 2.5 mg Q6H PRN HHN Shortness of Breath 12/31/19 07:45 01/05/20 07:44 Artificial Tears (Akwa-Tears) 1 drop BID BOTH EYES 12/31/19 11:00 01/30/20 10:59 12/31/19 11:55 Ascorbic Acid (Vitamin C) 500 mg DAILY GT 12/31/19 09:00 01/30/20 08:59 12/31/19 10:02 Atorvastatin Calcium (Lipitor) 80 mg BEDTIME GT 12/31/19 21:00 03/30/20 20:59 Dextrose (Dextrose 50%) 25 ml Q30M PRN IV Hypoglycemia 12/31/19 08:45 01/30/20 08:37 Dextrose (Dextrose 50%) 50 ml Q30M PRN IV hypoglycemia 12/31/19 08:45 03/30/20 08:44 Docusate Sodium (Colace) 100 mg DAILY GT 12/31/19 09:00 01/30/20 08:59 12/31/19 10:01 Ferrous Sulfate (Feosol) 325 mg DAILY GT 12/31/19 09:00 03/30/20 08:59 12/31/19 10:01 Insulin Aspart (NovoLOG) No Dose Q6HR SUBQ 12/31/19 12:00 03/30/20 11:59 Insulin Detemir (Levemir) 25 units Q12HR SUBQ 12/31/19 10:00 03/30/20 09:59 12/31/19 10:06 Magnesium Hydroxide (Mom) 30 ml DAILY GT 12/31/19 09:00 01/30/20 08:59 12/31/19 10:01 Pantoprazole (Protonix) 40 mg DAILY IVP 12/31/19 09:00 01/30/20 08:59 12/31/19 10:02 Phytonadione 1 mg/ Dextrose 55.5 ml @ 222 mls/hr ONCE IVPB 12/31/19 12:00 12/31/19 14:00 Piperacillin Sod/ Tazobactam Sod 3.375 gm/Sodium Chloride 110 ml @ 27.5 mls/hr Q12HR IVPB 12/31/19 09:00 01/07/20 08:59 12/31/19 10:02 Sodium Chloride 1,000 ml @ 200 mls/hr Q5H IV 12/31/19 06:33 01/30/20 06:32 12/31/19 11:56 Sodium Zirconium Cyclosilicate (Lokelma) 10 gm Q8HR ORAL 12/31/19 08:00 01/01/20 22:01 12/31/19 08:40 Zinc Sulfate (Zinc Sulfate) 220 mg DAILY GT 12/31/19 09:00 03/30/20 08:59 12/31/19 10:02 Assessment/Plan Problem List: (1) Hyponatremia ICD Codes: E87.1 - Hypo-osmolality and hyponatremia SNOMED: 22982301 (2) ARF (acute renal failure) ICD Codes: N17.9 - Acute kidney failure, unspecified SNOMED: 99392361 (3) Hyperkalemia ICD Codes: E87.5 - Hyperkalemia SNOMED: 58724775 (4) Pressure sore on sacrum Assessment & Plan: Pt presented on admission with Sacral Pressure injury and Necrosis Both Both R lower ext, R foot and L foot. Generalized edema noted. Both upper ext noted to have multiple serous blisters ,some of which are weeping serous exudate. Full thickness Sacral Pressure Injury with undermined Borders. Base of wound is 75% loose necrotic tissue,25% bree. Bone exposure at base of wound. Area of necrosis noted at distal aspect of wound in space between wound and anus.Edges are macerated. Wound is malodorous.(L)9.5cm x (W)9.2cm x (D)2.9cm,undermining clockwise 10-3 by 3.8cm @12 o'clock. Scattered areas of hyperpigmentation noted to R and L clefts of buttocks. Unable to determine exudate as pt is continuously oozing large amt of semi soft black stool and leaking into wound because of close proximity to his rectum. At upper, R gluteal cheek is additional Pressure Injury with small amt Biofilm at base of wound. Edges are pink and adherent to base of wound. No exudate noted.(L)3cm x (W)2.6cm. Medially to distal Tibia,and extending to R foot is necrotic and malodorous.Wound is partially opened at posterior R tibia but is dry . L foot is necrotic and malodorous. No exudate noted. Tx.Plan: Cleanse Sacral wound with Dakin's 0.25% archana.. Loosely Pack wound with Dakin's moistened Kerlix.Apply Moisture Barrier Paste periwound.Cover with Optifoam drsg.Change Daily and PRN. Cleanse R lower ext and R foot with Dakin's 0.25% Archana. Cover wounds with ABD Pads.Wrap with Kerlix Daily and prn. Cleanse L foot Wounds with Dakin's 0.25% Archana. Cover wounds with ABD Pads and wrap with Kerlix Daily and prn. ICD Codes: L89.159 - Pressure ulcer of sacral region, unspecified stage SNOMED: 012330545 (5) Upper GI bleed Assessment & Plan: Patient with sepsis, abnormal labs, GI bleed, pending COVID eval. Labs noted. Exam reviewed. Chest x-ray noted as below. Discussed with GI. Plan for endoscopy once COVID status evaluated. Trend hemoglobin for now transfuse PRN. G-tube is functional and okay for medications and will plan tube feeds accordingly. No acute surgical intervention as patient is actively bleeding. Proton pump inhibitor recommended and Rx as written. Will follow with recommendations thank you for let me participate in patient's care There is a tracheostomy in place. Vascularity is normal. Hazy densities in the lung bases may be layering effusions. Cardiac and mediastinal silhouette are within normal limits. The bony thorax appear unremarkable. IMPRESSION: Bibasilar hazy densities perhaps layering effusions. ICD Codes: K92.2 - Gastrointestinal hemorrhage, unspecified SNOMED: 29184523 Javid Singh December 31, 2019 13:06
[2019-12-31] MEDS ORDERED: Lokelma 10gm Pkt ORAL SCH (14:00)
[2019-12-31] MEDS ORDERED: Vancomycin 1.25gm/NS Premix q24h IVPB SCH (14:00)
[2019-12-31 16:00] VITALS: BP 144/75
[2019-12-31] MEDS: Dextrose 50% 25ml Syringe IV PRN ×2 (18:32→18:56)
--- NOTE | 2019-12-31 19:45 | Consultation ---
DATE OF CONSULTATION: 12/31/2019 INFECTIOUS DISEASES CONSULTATION CONSULTING PHYSICIAN: Tony Apple MD. REFERRING PHYSICIAN: Lorenzo De Dios MD. REASON FOR CONSULTATION: Pneumonia. HISTORY OF PRESENTING ILLNESS: This is a 54-year-old gentleman with history of respiratory failure, status post tracheostomy, who came in with vomiting and was found to have acute renal failure. There was a concern for aspiration pneumonia and an Infectious Diseases consultation has been obtained for antibiotics. PAST MEDICAL HISTORY: 1. History of intracranial hemorrhage. 2. Paraplegia. 3. Renal failure. 4. Respiratory failure, status post tracheostomy. 5. G-tube placement. SOCIAL HISTORY: Unknown. FAMILY HISTORY: Unknown. REVIEW OF SYSTEMS: Unable to obtain currently. MEDICATIONS: As an inpatient, he is on atorvastatin, IV vancomycin, insulin, , artificial tears, insulin, Zosyn, ascorbic acid, docusate, ferrous sulfate, milk of magnesia, zinc sulfate, Protonix, Mylanta, albuterol, Tylenol, IV vancomycin. ALLERGIES: No known drug allergies. PHYSICAL EXAMINATION: VITAL SIGNS: Temperature of 96.3, T-max of 98.2, pulse of 54, respiratory rate 24, blood pressure 130/52. He is on a ventilator, FiO2 of 40% with O2 saturation of 100% and PEEP of 5. Examination deferred due to possibility of COVID-19. LABORATORY AND DIAGNOSTIC DATA: White count 21.4, hemoglobin 6.7, hematocrit 19.2, MCV 85, platelet count of 62. Sodium 124, potassium 6.5, chloride 88, bicarb 20, BUN 217, creatinine 5.2, glucose 132, calcium 10.5. COVID-19 test is pending. Blood cultures are pending. Chest x-ray is showing bilateral hazy densities. ASSESSMENT: This is a 54-year-old gentleman with history of intracranial hemorrhage, paraplegia, respiratory failure, status post tracheostomy, who comes in with coffee-ground emesis would be concerned regarding. 1. Aspiration pneumonia. 2. Leukocytosis. 3. Renal failure. 4. Respiratory failure. PLAN: 1. Continue Zosyn. 2. We will follow up cultures. 3. We will follow up on COVID-19 testing. 4. Discontinue IV vancomycin. 5. We will order sputum cultures. 6. We will follow up cultures and adjust antibiotics accordingly. I would like to thank, Dr. De Dios, for this consultation. Tony Apple M.D. DR: Cristal JOB#: [id number] CC: Lorenzo De Dios M.D.; Fax#: [phone]
[2019-12-31 20:00] VITALS: BP 129/76
[2019-12-31] MEDS: Atorvastatin 80mg tab GT SCH (22:12)
--- NOTE | 2019-12-31 22:29 | Consultation ---
DATE OF CONSULTATION: 12/31/2019 CONSULTING PHYSICIAN: Martin Yee MD. REFERRING PHYSICIAN: Lorenzo De Dios MD. REASON FOR CONSULTATION: Acute kidney injury and hyperkalemia. HISTORY OF PRESENT ILLNESS: The patient is a 54-year-old man who is long-term on a ventilator, who presents with abnormal labs, coffee-ground emesis, severe anemia. He is unable to give a history. There is a prior history of intracranial hemorrhage, paraplegia, respiratory failure, G-tube feeding, and anemia. ALLERGIES: None known. MEDICATIONS: At the facility include Lantus insulin, sliding-scale insulin, Tylenol, albuterol inhalation, ascorbic acid, atorvastatin, various eyedrops, DSS, ferrous sulfate. He was on linezolid, milk of magnesia, senna, Bactrim, zinc. PAST MEDICAL HISTORY: Listed from the skilled nursing other than the above include diabetes, cerebral infarction, chronic kidney disease, hyperlipidemia, and protein-calorie malnutrition. PHYSICAL EXAMINATION: GENERAL: The patient is lying in bed, on a ventilator, lethargic. VITAL SIGNS: Temperature 96.3, pulse 77, blood pressure 130/52. HEAD, EYES, EARS, NOSE, THROAT: Eyes are closed. Oral mucosa slightly dry. NECK: With tracheostomy. LUNGS: Rhonchi. HEART: Regular rhythm. ABDOMEN: Soft with gastrostomy. EXTREMITIES: Show severe muscle wasting. GENITOURINARY: A Kaba has been placed. NEUROLOGIC: He is obtunded. PERTINENT LABORATORY DATA: Show white count of 21.4, hemoglobin is 6.7. Initial sodium 122, potassium 7.2, BUN 220, and creatinine 5.3. Repeat sodium 124, potassium 6.5, BUN 217, creatinine is 5.2. Glucose 170 and 132. IMPRESSION: 1. Acute kidney injury, likely dehydration and possibly from obstruction. A Kaba was placed. He is making good amount of urine. 2. Chronic kidney disease. Prior labs not available. 3. Sepsis. 4. GI bleed. 5. Pleural effusion. 6. Respiratory failure. 7. Moderate protein-calorie malnutrition. 8. Diabetes. PLAN: Vigorous hydration. Treatment of hyperkalemia and we will try to get his prior labs and compare. Martin Yee M.D. DR: Carlos JOB#: [id number] CC:
[2020-01-01] VITALS (7 sets, daily range): BP systolic 99–120; BP diastolic 45–86
[2020-01-01] MEDS: Lokelma 10gm Pkt ORAL SCH ×3 (05:27→22:00)
[2020-01-01 06:00] LABS: ALANINE AMINOTRANSFERASE 40 U/L (12-78); ALBUMIN 0.6 G/DL (3.4-5.0); ALBUMIN/GLOBULIN RATIO 0.1 (1.0-2.7); ALKALINE PHOSPHATASE 98 U/L (46-116); ANION GAP 14 mmol/L (5-15); ASPARTATE AMINO TRANSFERASE 60 U/L (15-37); BILIRUBIN,TOTAL 0.3 MG/DL (0.2-1.0); BLOOD UREA NITROGEN 215 mg/dL (7-18); CALCIUM 9.3 MG/DL (8.5-10.1); CARBON DIOXIDE 19 MMOL/L (21-32); CHLORIDE 90 MMOL/L (98-107); CREATININE 5.2 MG/DL (0.55-1.30); SODIUM 124 MMOL/L (136-145)
[2020-01-01] MEDS: Insulin NovoLOG Flexpen S/S (Mod) SUBQ SCH ×4 (06:00→23:58)
[2020-01-01 06:14] LABS: POTASSIUM 6.7 MMOL/L (3.5-5.1)
[2020-01-01 06:40] LABS: AMYLASE 66 U/L (25-115)
[2020-01-01] MEDS: Levemir Flexpen SUBQ SCH ×2 (08:11→21:00)
[2020-01-01] MEDS: Piperacillin/Tazobactam 3.375 GM in NS 110 ML IVPB SCH ×2 (08:14→21:51)
[2020-01-01] MEDS: Dakin's 0.25% (Half Strength) 16oz TOPIC SCH (08:15)
[2020-01-01] MEDS: Ferrous Sulfate 300 MG/5 ML UDC GT SCH (08:15)
[2020-01-01] MEDS: Ascorbic Acid 500mg tab GT SCH (08:15)
[2020-01-01] MEDS: Docusate 100mg/10ml Liq GT SCH (08:15)
[2020-01-01] MEDS: Milk of Magnesia 30ml Ud GT SCH (08:15)
[2020-01-01] MEDS: Zinc Sulfate 220mg GT SCH (08:16)
[2020-01-01] MEDS: Pantoprazole Inj IVP SCH (08:16)
--- NOTE | 2020-01-01 09:08 | Pulmonology Progress Note ---
Subjective ROS Limited/Unobtainable: No Allergies: Coded Allergies: No Known Allergies (Unverified , 10/07/19) Subjective care noted on vent renal function poor Objective Last 24 Hour Vital Signs Date Time Temp Pulse Resp B/P (MAP) Pulse Ox O2 Delivery O2 Flow Rate FiO2 01/01/20 08:00 5.0 40 01/01/20 08:00 96.9 86 19 106/54 (71) 100 01/01/20 08:00 Mechanical Ventilator 5.0 01/01/20 07:20 87 24 40 01/01/20 04:00 97.3 82 19 101/45 (63) 100 01/01/20 04:00 Mechanical Ventilator 5.0 01/01/20 04:00 5.0 40 01/01/20 03:59 79 01/01/20 02:34 65 24 40 01/01/20 00:43 93.3 68 19 104/58 (73) 100 01/01/20 00:00 Mechanical Ventilator 5.0 01/01/20 00:00 5.0 40 12/31/19 23:32 64 12/31/19 23:20 72 24 40 12/31/19 20:00 96.3 19 129/76 (93) 100 12/31/19 20:00 5.0 40 12/31/19 20:00 Mechanical Ventilator 5.0 12/31/19 19:34 64 12/31/19 19:04 67 24 40 12/31/19 16:23 55 12/31/19 16:11 59 12/31/19 16:00 5.0 40 12/31/19 16:00 Mechanical Ventilator 5.0 12/31/19 16:00 96.2 19 144/75 (98) 100 12/31/19 15:37 55 24 40 12/31/19 12:00 96.0 20 131/54 (79) 100 12/31/19 12:00 5.0 40 12/31/19 12:00 61 12/31/19 12:00 Mechanical Ventilator 5.0 12/31/19 11:03 54 24 40 12/31/19 09:15 64 24 40 Intake and Output 12/31/19 01/01/20 19:00 07:00 Intake Total 93 ml 2381.667 ml Output Total 350 ml 410 ml Balance -257 ml 1971.667 ml Intake IV Total 93 ml 2381.667 ml Output Urine Total 350 ml 400 ml Stool Total 10 ml # Voids 1 # Bowel Movements 1 2 Objective WDWN trach clear breath sounds bilaterally without rhonchi or wheeze [id number] without MRG NABS nontender no HSM no CCE poor LOC Microbiology Date/Time Source Procedure Growth Status 12/30/19 21:50 Blood Blood Culture - Preliminary NO GROWTH AFTER 24 HOURS Resulted 12/30/19 21:50 Blood Blood Culture - Preliminary NO GROWTH AFTER 24 HOURS Resulted 12/31/19 02:10 Sputum Induced Gram Stain - Final Resulted 12/31/19 02:10 Sputum Culture - Preliminary Gram Negative Bacillus 1 Resulted Laboratory Tests 12/31/19 22:40: Urine Random Sodium 48, Urine Creatinine 7.2L 12/31/19 23:00: Stool Occult Blood [Pending] 01/01/20 04:45: Sodium Level 124L, Potassium Level 6.7*H, Chloride Level 90L, Carbon Dioxide Level 19L, Anion Gap 14, Blood Urea Nitrogen 215H, Creatinine 5.2H, Estimat Glomerular Filtration Rate 14.2, Glucose Level 108H, Calcium Level 9.3, Total Bilirubin 0.3, Aspartate Amino Transf (AST/SGOT) 60H, Alanine Aminotransferase ( ALT/SGPT) 40, Alkaline Phosphatase 98, Total Protein 5.6L, Albumin 0.6L, Globulin 5.0, Albumin/Globulin Ratio 0.1L, Amylase Level 66, Lipase 1832H 01/01/20 09:05: White Blood Count [Pending], Red Blood Count [Pending], Hemoglobin [Pending], Hematocrit [Pending], Mean Corpuscular Volume [Pending], Mean Corpuscular Hemoglobin [Pending], Mean Corpuscular Hemoglobin Concent [Pending], Red Cell Distribution Width [Pending], Platelet Count [Pending], Mean Platelet Volume [ Pending], Neutrophils (%) (Auto) [Pending], Lymphocytes (%) (Auto) [Pending], Monocytes (%) (Auto) [Pending], Eosinophils (%) (Auto) [Pending], Basophils (%) (Auto) [Pending] Current Medications Medications (Trade) Dose Ordered Sig/[place] Route PRN Reason Start Time Stop Time Status Last Admin Dose Admin Acetaminophen (Tylenol) 650 mg Q4H PRN GT Mild Pain (Pain Scale 1-3) 12/31/19 07:45 01/30/20 07:44 Acetaminophen (Tylenol) 650 mg Q4H PRN GT Temp >100.5 12/31/19 07:45 01/30/20 07:44 Al Hydroxide/Mg Hydroxide (Mylanta) 30 ml QIDPRN PRN GT stomach upset 12/31/19 08:00 01/30/20 07:59 Albuterol Sulfate (Proventil) 2.5 mg Q6H PRN HHN Shortness of Breath 12/31/19 07:45 01/05/20 07:44 Artificial Tears (Akwa-Tears) 1 drop BID BOTH EYES 12/31/19 11:00 01/30/20 10:59 01/01/20 08:28 Ascorbic Acid (Vitamin C) 500 mg DAILY GT 12/31/19 09:00 01/30/20 08:59 01/01/20 08:15 Atorvastatin Calcium (Lipitor) 80 mg BEDTIME GT 12/31/19 21:00 03/30/20 20:59 12/31/19 22:12 Dextrose (Dextrose 50%) 25 ml Q30M PRN IV Hypoglycemia 12/31/19 08:45 01/30/20 08:37 12/31/19 18:56 Dextrose (Dextrose 50%) 50 ml Q30M PRN IV hypoglycemia 12/31/19 08:45 03/30/20 08:44 Docusate Sodium (Colace) 100 mg DAILY GT 12/31/19 09:00 01/30/20 08:59 01/01/20 08:15 Ferrous Sulfate (Feosol) 325 mg DAILY GT 12/31/19 09:00 03/30/20 08:59 01/01/20 08:15 Insulin Aspart (NovoLOG) No Dose Q6HR SUBQ 12/31/19 12:00 03/30/20 11:59 Insulin Detemir (Levemir) 25 units Q12HR SUBQ 12/31/19 10:00 03/30/20 09:59 12/31/19 10:06 Magnesium Hydroxide (Mom) 30 ml DAILY GT 12/31/19 09:00 01/30/20 08:59 01/01/20 08:15 Pantoprazole (Protonix) 40 mg DAILY IVP 12/31/19 09:00 01/30/20 08:59 01/01/20 08:16 Piperacillin Sod/ Tazobactam Sod 3.375 gm/Sodium Chloride 110 ml @ 27.5 mls/hr Q12HR IVPB 12/31/19 09:00 01/07/20 08:59 01/01/20 08:14 Sodium Hypochlorite (Dakin's Half Strength) 1 applic DAILY TOPIC 01/01/20 09:00 01/31/20 08:59 01/01/20 08:15 Sodium Chloride 1,000 ml @ 200 mls/hr Q5H IV 12/31/19 06:33 01/30/20 06:32 01/01/20 05:27 Sodium Zirconium Cyclosilicate (Lokelma) 10 gm Q8HR ORAL 12/31/19 08:00 01/01/20 22:01 01/01/20 05:27 Zinc Sulfate (Zinc Sulfate) 220 mg DAILY GT 12/31/19 09:00 03/30/20 08:59 01/01/20 08:16 Assessment/Plan Assessment/Plan IMPRESSION chronic respiratory failure Acute on chronic renal failure elevated K anemia GIB leukocytosis possible sepsis PLAN transfuse IV hydration iv antibiotics ID , GI and renal vent hold feeds snf meds will d/w family as to advance directives prognosis poor impression, plan, and exam edited and reviewed in detail care discussed with Lorenzo Chase MD January 01, 2020 09:08
[2020-01-01 09:12] LABS: HEMATOCRIT 16.4 % (42.0-52.0); HEMOGLOBIN 5.6 G/DL (14.2-18.0); MEAN CORPUSCULAR VOLUME 85 FL (80-99); PLATELET COUNT 49 K/UL (150-450); RED BLOOD COUNT 1.93 M/UL (4.70-6.10); RED CELL DISTRIBUTION WIDTH 13.8 % (11.6-14.8); WHITE BLOOD COUNT 23.2 K/UL (4.8-10.8)
[2020-01-01] MEDS ORDERED: Sodium Polystyrene Sulfonate 15gm Powder ORAL SCH (09:30)
--- NOTE | 2020-01-01 09:48 | General Progress Note ---
Assessment/Plan Assessment/Plan: sepsis anemia GIB thrombocytopenia hyponatremia ARF DM dysphagia with GT pending blood transfusion for today ppi bid keep npo GI procedures on hold pending COVID clearance fu H&H fu nephrology urology for hematuria Subjective ROS Limited/Unobtainable: No Allergies: Coded Allergies: No Known Allergies (Unverified , 10/07/19) Objective Last 24 Hour Vital Signs Date Time Temp Pulse Resp B/P (MAP) Pulse Ox O2 Delivery O2 Flow Rate FiO2 01/01/20 08:00 5.0 40 01/01/20 08:00 96.9 86 19 106/54 (71) 100 01/01/20 08:00 Mechanical Ventilator 5.0 01/01/20 07:27 83 01/01/20 07:20 87 24 40 01/01/20 04:00 97.3 82 19 101/45 (63) 100 01/01/20 04:00 Mechanical Ventilator 5.0 01/01/20 04:00 5.0 40 01/01/20 03:59 79 01/01/20 02:34 65 24 40 01/01/20 00:43 93.3 68 19 104/58 (73) 100 01/01/20 00:00 Mechanical Ventilator 5.0 01/01/20 00:00 5.0 40 12/31/19 23:32 64 12/31/19 23:20 72 24 40 12/31/19 20:00 96.3 19 129/76 (93) 100 12/31/19 20:00 5.0 40 12/31/19 20:00 Mechanical Ventilator 5.0 12/31/19 19:34 64 12/31/19 19:04 67 24 40 12/31/19 16:23 55 12/31/19 16:11 59 12/31/19 16:00 5.0 40 12/31/19 16:00 Mechanical Ventilator 5.0 12/31/19 16:00 96.2 19 144/75 (98) 100 12/31/19 15:37 55 24 40 12/31/19 12:00 96.0 20 131/54 (79) 100 12/31/19 12:00 5.0 40 12/31/19 12:00 61 12/31/19 12:00 Mechanical Ventilator 5.0 12/31/19 11:03 54 24 40 Intake and Output 12/31/19 01/01/20 19:00 07:00 Intake Total 93 ml 2381.667 ml Output Total 350 ml 410 ml Balance -257 ml 1971.667 ml Intake IV Total 93 ml 2381.667 ml Output Urine Total 350 ml 400 ml Stool Total 10 ml # Voids 1 # Bowel Movements 1 2 Laboratory Tests 12/31/19 22:40: Urine Random Sodium 48, Urine Creatinine 7.2L 12/31/19 23:00: Stool Occult Blood [Pending] 01/01/20 04:45: Sodium Level 124L, Potassium Level 6.7*H, Chloride Level 90L, Carbon Dioxide Level 19L, Anion Gap 14, Blood Urea Nitrogen 215H, Creatinine 5.2H, Estimat Glomerular Filtration Rate 14.2, Glucose Level 108H, Calcium Level 9.3, Total Bilirubin 0.3, Aspartate Amino Transf (AST/SGOT) 60H, Alanine Aminotransferase ( ALT/SGPT) 40, Alkaline Phosphatase 98, Total Protein 5.6L, Albumin 0.6L, Globulin 5.0, Albumin/Globulin Ratio 0.1L, Amylase Level 66, Lipase 1832H 01/01/20 09:05: White Blood Count 23.2*H, Red Blood Count 1.93L, Hemoglobin 5.6*L, Hematocrit 16.4L, Mean Corpuscular Volume 85, Mean Corpuscular Hemoglobin 29.1, Mean Corpuscular Hemoglobin Concent 34.5, Red Cell Distribution Width 13.8, Platelet Count 49L, Mean Platelet Volume 12.4H, Neutrophils (%) (Auto) , Lymphocytes (%) (Auto) , Monocytes (%) (Auto) , Eosinophils (%) (Auto) , Basophils (%) (Auto) , Neutrophils % (Manual) [Pending], Lymphocytes % (Manual) [Pending], Platelet Estimate [Pending], Platelet Morphology [Pending] Height (Feet): 5 Height (Inches): 5.00 Weight (Pounds): 184 General Appearance: lethargic EENT: normal ENT inspection Neck: supple Cardiovascular: tachycardia Respiratory/Chest: decreased breath sounds Abdomen: normal bowel sounds, non tender, soft Toni Mckenzie MD January 01, 2020 09:48
--- NOTE | 2020-01-01 10:32 | Infectious Diseases Prog Note ---
Assessment/Plan Assessment/Plan antibiotics : zosyn A 1. gram negative pneumonia 2. renal failure 3. respiratory failure 4. intracranial hemorrhage 5. paraplegia 6. leucocytosis increasing P 1. continue zosyn 2. will follow up cultures 3. will follow up COVID 19 test Subjective ROS Limited/Unobtainable: Yes Allergies: Coded Allergies: No Known Allergies (Unverified , 10/07/19) Objective Vital Signs Last 24 Hour Vital Signs Date Time Temp Pulse Resp B/P (MAP) Pulse Ox O2 Delivery O2 Flow Rate FiO2 01/01/20 09:05 81 24 40 01/01/20 08:00 5.0 40 01/01/20 08:00 96.9 86 19 106/54 (71) 100 01/01/20 08:00 Mechanical Ventilator 5.0 01/01/20 07:27 83 01/01/20 07:20 87 24 40 01/01/20 04:00 97.3 82 19 101/45 (63) 100 01/01/20 04:00 Mechanical Ventilator 5.0 01/01/20 04:00 5.0 40 01/01/20 03:59 79 01/01/20 02:34 65 24 40 01/01/20 00:43 93.3 68 19 104/58 (73) 100 01/01/20 00:00 Mechanical Ventilator 5.0 01/01/20 00:00 5.0 40 12/31/19 23:32 64 12/31/19 23:20 72 24 40 12/31/19 20:00 96.3 19 129/76 (93) 100 12/31/19 20:00 5.0 40 12/31/19 20:00 Mechanical Ventilator 5.0 12/31/19 19:34 64 12/31/19 19:04 67 24 40 12/31/19 16:23 55 12/31/19 16:11 59 12/31/19 16:00 5.0 40 12/31/19 16:00 Mechanical Ventilator 5.0 12/31/19 16:00 96.2 19 144/75 (98) 100 12/31/19 15:37 55 24 40 12/31/19 12:00 96.0 20 131/54 (79) 100 12/31/19 12:00 5.0 40 12/31/19 12:00 61 12/31/19 12:00 Mechanical Ventilator 5.0 12/31/19 11:03 54 24 40 Height (Feet): 5 Height (Inches): 5.00 Weight (Pounds): 184 HEENT: status post trach Microbiology Date/Time Source Procedure Growth Status 12/30/19 21:50 Blood Blood Culture - Preliminary NO GROWTH AFTER 24 HOURS Resulted 12/30/19 21:50 Blood Blood Culture - Preliminary NO GROWTH AFTER 24 HOURS Resulted 12/31/19 02:10 Sputum Induced Gram Stain - Final Resulted 12/31/19 02:10 Sputum Culture - Preliminary Gram Negative Bacillus 1 Resulted Laboratory Tests Test 12/31/19 22:40 12/31/19 23:00 01/01/20 04:45 01/01/20 09:05 Urine Random Sodium 48 mmol/L (20-110) Urine Creatinine 7.2 MG/DL (30.0-125.0) L Stool Occult Blood Pending Sodium Level 124 MMOL/L (136-145) L Potassium Level 6.7 MMOL/L (3.5-5.1) *H Chloride Level 90 MMOL/L (98-107) L Carbon Dioxide Level 19 MMOL/L (21-32) L Anion Gap 14 mmol/L (5-15) Blood Urea Nitrogen 215 mg/dL (7-18) H Creatinine 5.2 MG/DL (0.55-1.30) H Estimat Glomerular Filtration Rate 14.2 mL/min (>60) Glucose Level 108 MG/DL (74-106) H Calcium Level 9.3 MG/DL (8.5-10.1) Total Bilirubin 0.3 MG/DL (0.2-1.0) Aspartate Amino Transf (AST/SGOT) 60 U/L (15-37) H Alanine Aminotransferase (ALT/SGPT) 40 U/L (12-78) Alkaline Phosphatase 98 U/L (46-116) Total Protein 5.6 G/DL (6.4-8.2) L Albumin 0.6 G/DL (3.4-5.0) L Globulin 5.0 g/dL Albumin/Globulin Ratio 0.1 (1.0-2.7) L Amylase Level 66 U/L (25-115) Lipase 1832 U/L (73-393) H White Blood Count 23.2 K/UL (4.8-10.8) *H Red Blood Count 1.93 M/UL (4.70-6.10) L Hemoglobin 5.6 G/DL (14.2-18.0) *L Hematocrit 16.4 % (42.0-52.0) L Mean Corpuscular Volume 85 FL (80-99) Mean Corpuscular Hemoglobin 29.1 PG (27.0-31.0) Mean Corpuscular Hemoglobin Concent 34.5 G/DL (32.0-36.0) Red Cell Distribution Width 13.8 % (11.6-14.8) Platelet Count 49 K/UL (150-450) L Mean Platelet Volume 12.4 FL (6.5-10.1) H Neutrophils (%) (Auto) % (45.0-75.0) Lymphocytes (%) (Auto) % (20.0-45.0) Monocytes (%) (Auto) % (1.0-10.0) Eosinophils (%) (Auto) % (0.0-3.0) Basophils (%) (Auto) % (0.0-2.0) Differential Total Cells Counted 100 Neutrophils % (Manual) 82 % (45-75) H Lymphocytes % (Manual) 9 % (20-45) L Monocytes % (Manual) 8 % (1-10) Eosinophils % (Manual) 1 % (0-3) Basophils % (Manual) 0 % (0-2) Band Neutrophils 0 % (0-8) Platelet Estimate Decreased L Platelet Morphology Normal Hypochromasia 2+ Current Medications Medications (Trade) Dose Ordered Sig/[place] Route PRN Reason Start Time Stop Time Status Last Admin Dose Admin Acetaminophen (Tylenol) 650 mg Q4H PRN GT Mild Pain (Pain Scale 1-3) 12/31/19 07:45 01/30/20 07:44 Acetaminophen (Tylenol) 650 mg Q4H PRN GT Temp >100.5 12/31/19 07:45 01/30/20 07:44 Al Hydroxide/Mg Hydroxide (Mylanta) 30 ml QIDPRN PRN GT stomach upset 12/31/19 08:00 01/30/20 07:59 Albuterol Sulfate (Proventil) 2.5 mg Q6H PRN HHN Shortness of Breath 12/31/19 07:45 01/05/20 07:44 Artificial Tears (Akwa-Tears) 1 drop BID BOTH EYES 12/31/19 11:00 01/30/20 10:59 01/01/20 08:28 Ascorbic Acid (Vitamin C) 500 mg DAILY GT 12/31/19 09:00 01/30/20 08:59 01/01/20 08:15 Atorvastatin Calcium (Lipitor) 80 mg BEDTIME GT 12/31/19 21:00 03/30/20 20:59 12/31/19 22:12 Dextrose (Dextrose 50%) 25 ml Q30M PRN IV Hypoglycemia 12/31/19 08:45 01/30/20 08:37 12/31/19 18:56 Dextrose (Dextrose 50%) 50 ml Q30M PRN IV hypoglycemia 12/31/19 08:45 03/30/20 08:44 Docusate Sodium (Colace) 100 mg DAILY GT 12/31/19 09:00 01/30/20 08:59 01/01/20 08:15 Ferrous Sulfate (Feosol) 325 mg DAILY GT 12/31/19 09:00 03/30/20 08:59 01/01/20 08:15 Insulin Aspart (NovoLOG) No Dose Q6HR SUBQ 12/31/19 12:00 03/30/20 11:59 Insulin Detemir (Levemir) 25 units Q12HR SUBQ 12/31/19 10:00 03/30/20 09:59 12/31/19 10:06 Magnesium Hydroxide (Mom) 30 ml DAILY GT 12/31/19 09:00 01/30/20 08:59 01/01/20 08:15 Pantoprazole (Protonix) 40 mg DAILY IVP 12/31/19 09:00 01/30/20 08:59 01/01/20 08:16 Piperacillin Sod/ Tazobactam Sod 3.375 gm/Sodium Chloride 110 ml @ 27.5 mls/hr Q12HR IVPB 12/31/19 09:00 01/07/20 08:59 01/01/20 08:14 Sodium Hypochlorite (Dakin's Half Strength) 1 applic DAILY TOPIC 01/01/20 09:00 01/31/20 08:59 01/01/20 08:15 Sodium Polystyrene Sulfonate (Kayexalate) 30 gm ONCE ORAL 01/01/20 09:30 01/01/20 10:30 01/01/20 09:59 Sodium Chloride 1,000 ml @ 200 mls/hr Q5H IV 12/31/19 06:33 01/30/20 06:32 01/01/20 05:27 Sodium Zirconium Cyclosilicate (Lokelma) 10 gm Q8HR ORAL 12/31/19 08:00 01/01/20 22:01 01/01/20 05:27 Zinc Sulfate (Zinc Sulfate) 220 mg DAILY GT 12/31/19 09:00 03/30/20 08:59 01/01/20 08:16 Tony Apple MD January 01, 2020 10:32
[2020-01-01] MEDS ORDERED: Lidocaine 1% Plain 30 ml INJ PRN (12:03)
--- NOTE | 2020-01-01 14:17 | Operative Note - PDOC ---
Operative Note Operative Note Date of Operation/Procedure: January 01, 2020 Pre-op Diagnosis: sepsis anemia leukocytosis Procedure: right femoral central venous catheter insertion Post-op Diagnosis: same as pre-op Surgeon: brunilda singh md Anesthesia: local Specimen: none Complications: none Condition: unstable Estimated Blood Loss: none Drains: none Implant(s) used?: No Indications for Procedure 54-year-old male currently in SDU ill-appearing on vent support [place] collar anemic leukocytosis septic requiring multiple medications transfusions and resuscitation. Upper extremity edema significant with blistering in the arm possibly needs central venous catheter with multiple lumens surgery called to evaluate this mid Description of Procedure Patient was made comfortable at bedside in supine position. Vent support stable. Given patient's renal insufficiency central venous access in the subclavian's will be temporarily held and patient with a [place] collar therefore decision made to proceed with femoral placement temporarily for resuscitation and transfusion products emergently. Patient is fairly ill severely anemic requiring support and resuscitation. Consent obtained from the family. The right femoral region was prepped draped and prepped in the same surgical fashion. Local aspect was infiltrated. The right femoral vein was cannulated on first stick without complication. Good venous flow noted. Guidewire placed over needle needle removed. Small skin incision made around the guidewire. Dilator used. Triple-lumen catheter placed under the guidewire without complication. Guidewire removed and discarded. All 3 ports flushed and aspirated appropriately. Line sutured in place dressings applied patient procedure well okay to use line Brunilda Singh January 01, 2020 14:17
[2020-01-01 15:54] LABS: ANION GAP 15 mmol/L (5-15); BLOOD UREA NITROGEN 203 mg/dL (7-18); CALCIUM 8.9 MG/DL (8.5-10.1); CARBON DIOXIDE 20 MMOL/L (21-32); CHLORIDE 92 MMOL/L (98-107); CREATININE 4.9 MG/DL (0.55-1.30); POTASSIUM 4.9 MMOL/L (3.5-5.1); SODIUM 127 MMOL/L (136-145)
[2020-01-01] MEDS: D5NS 1,000 ML IV SCH ×2 (16:19→22:48)
--- NOTE | 2020-01-01 20:43 | Nephrology Progress Note ---
Assessment/Plan Problem List: (1) Respiratory failure (2) ARF (acute renal failure) (3) Hyponatremia (4) Hyperkalemia (5) Upper GI bleed (6) Pressure sore on sacrum Plan K better, continue iv fluids, Subjective ROS Limited/Unobtainable: Yes Objective Objective Last 24 Hour Vital Signs Date Time Temp Pulse Resp B/P (MAP) Pulse Ox O2 Delivery O2 Flow Rate FiO2 01/01/20 20:00 Mechanical Ventilator 5.0 01/01/20 20:00 96.8 86 24 118/64 (82) 100 01/01/20 20:00 5.0 40 01/01/20 19:30 85 24 40 01/01/20 18:49 120/86 (97) 01/01/20 16:00 87 01/01/20 16:00 Mechanical Ventilator 5.0 01/01/20 16:00 97.5 88 19 99/56 (70) 100 01/01/20 16:00 5.0 40 01/01/20 15:25 87 24 40 01/01/20 12:00 5.0 40 01/01/20 12:00 76 01/01/20 12:00 Mechanical Ventilator 5.0 01/01/20 11:46 96.8 82 19 103/58 (73) 100 01/01/20 10:40 86 24 40 01/01/20 09:05 81 24 40 01/01/20 08:00 5.0 40 01/01/20 08:00 96.9 86 19 106/54 (71) 100 01/01/20 08:00 Mechanical Ventilator 5.0 01/01/20 07:27 83 01/01/20 07:20 87 24 40 01/01/20 04:00 97.3 82 19 101/45 (63) 100 01/01/20 04:00 Mechanical Ventilator 5.0 01/01/20 04:00 5.0 40 01/01/20 03:59 79 01/01/20 02:34 65 24 40 01/01/20 00:43 93.3 68 19 104/58 (73) 100 01/01/20 00:00 Mechanical Ventilator 5.0 01/01/20 00:00 5.0 40 12/31/19 23:32 64 12/31/19 23:20 72 24 40 Intake and Output 12/31/19 01/01/20 19:00 07:00 Intake Total 93 ml 2381.667 ml Output Total 350 ml 410 ml Balance -257 ml 1971.667 ml Intake IV Total 93 ml 2381.667 ml Output Urine Total 350 ml 400 ml Stool Total 10 ml # Voids 1 # Bowel Movements 1 2 Laboratory Tests 12/31/19 22:40: Urine Random Sodium 48, Urine Creatinine 7.2L 12/31/19 23:00: Stool Occult Blood Positive 01/01/20 04:45: Sodium Level 124L, Potassium Level 6.7*H, Chloride Level 90L, Carbon Dioxide Level 19L, Anion Gap 14, Blood Urea Nitrogen 215H, Creatinine 5.2H, Estimat Glomerular Filtration Rate 14.2, Glucose Level 108H, Calcium Level 9.3, Total Bilirubin 0.3, Aspartate Amino Transf (AST/SGOT) 60H, Alanine Aminotransferase ( ALT/SGPT) 40, Alkaline Phosphatase 98, Total Protein 5.6L, Albumin 0.6L, Globulin 5.0, Albumin/Globulin Ratio 0.1L, Amylase Level 66, Lipase 1832H 01/01/20 09:05: White Blood Count 23.2*H, Red Blood Count 1.93L, Hemoglobin 5.6*L, Hematocrit 16.4L, Mean Corpuscular Volume 85, Mean Corpuscular Hemoglobin 29.1, Mean Corpuscular Hemoglobin Concent 34.5, Red Cell Distribution Width 13.8, Platelet Count 49L, Mean Platelet Volume 12.4H, Neutrophils (%) (Auto) , Lymphocytes (%) (Auto) , Monocytes (%) (Auto) , Eosinophils (%) (Auto) , Basophils (%) (Auto) , Differential Total Cells Counted 100, Neutrophils % (Manual) 82H, Lymphocytes % (Manual) 9L, Monocytes % (Manual) 8, Eosinophils % (Manual) 1, Basophils % ( Manual) 0, Band Neutrophils 0, Platelet Estimate DecreasedL, Platelet Morphology Normal, Hypochromasia 2+ 01/01/20 15:15: Sodium Level 127L, Potassium Level 4.9, Chloride Level 92L, Carbon Dioxide Level 20L, Anion Gap 15, Blood Urea Nitrogen 203H, Creatinine 4.9H, Estimat Glomerular Filtration Rate 15.2, Glucose Level 174H, Calcium Level 8.9 Height (Feet): 5 Height (Inches): 5.00 Weight (Pounds): 184 General Appearance: lethargic, other - on vent Cardiovascular: regular rhythm Respiratory/Chest: rhonchi - bilaterally Abdomen: non tender Extremities: no edema Neurologic: unresponsive Martin Yee MD January 01, 2020 20:43
[2020-01-01] MEDS ORDERED: NS 275ml ONE ×2 (21:00→21:02)
[2020-01-01] MEDS ORDERED: D5NS 1000ml IV ONE (21:00)
[2020-01-01] MEDS ORDERED: Tubing Blood Filter IV ONE ×2 (21:00→21:02)
[2020-01-01] MEDS ORDERED: Tubing IV Secondary IV ONE (21:02)
[2020-01-01] MEDS: Atorvastatin 80mg tab GT SCH (21:51)
[2020-01-02] VITALS: BP 103/65
[2020-01-02 04:00] VITALS: BP 134/71
[2020-01-02 04:57] LABS: HEMATOCRIT 22.7 % (42.0-52.0); HEMOGLOBIN 8.1 G/DL (14.2-18.0); MEAN CORPUSCULAR VOLUME 85 FL (80-99); PLATELET COUNT 31 K/UL (150-450); RED BLOOD COUNT 2.66 M/UL (4.70-6.10); RED CELL DISTRIBUTION WIDTH 13.5 % (11.6-14.8); WHITE BLOOD COUNT 19.1 K/UL (4.8-10.8)
[2020-01-02 05:18] LABS: INR 1.3 (0.9-1.1)
[2020-01-02 05:24] LABS: ALANINE AMINOTRANSFERASE 32 U/L (12-78); ALBUMIN 0.6 G/DL (3.4-5.0); ALBUMIN/GLOBULIN RATIO 0.1 (1.0-2.7); ALKALINE PHOSPHATASE 91 U/L (46-116); ANION GAP 16 mmol/L (5-15); ASPARTATE AMINO TRANSFERASE 36 U/L (15-37); BILIRUBIN,TOTAL 0.4 MG/DL (0.2-1.0); BLOOD UREA NITROGEN 196 mg/dL (7-18); CALCIUM 8.8 MG/DL (8.5-10.1); CARBON DIOXIDE 19 MMOL/L (21-32); CHLORIDE 94 MMOL/L (98-107); POTASSIUM 4.3 MMOL/L (3.5-5.1); SODIUM 129 MMOL/L (136-145)
[2020-01-02] MEDS: D5NS 1,000 ML IV SCH ×3 (05:36→17:40)
[2020-01-02] MEDS: Insulin NovoLOG Flexpen S/S (Mod) SUBQ SCH ×3 (05:36→17:33)
[2020-01-02] MEDS: Lokelma 10gm Pkt ORAL SCH ×3 (07:19→20:52)
[2020-01-02 08:00] VITALS: BP 137/75
[2020-01-02] MEDS: Ascorbic Acid 500mg tab GT SCH (08:42)
[2020-01-02] MEDS: Piperacillin/Tazobactam 3.375 GM in NS 110 ML IVPB SCH ×2 (08:42→20:26)
[2020-01-02] MEDS: Ferrous Sulfate 300 MG/5 ML UDC GT SCH (08:42)
[2020-01-02] MEDS: Docusate 100mg/10ml Liq GT SCH (08:42)
[2020-01-02] MEDS: Levemir Flexpen SUBQ SCH ×2 (08:42→20:23)
[2020-01-02] MEDS: Milk of Magnesia 30ml Ud GT SCH (08:42)
[2020-01-02] MEDS: Pantoprazole Inj IVP SCH ×2 (08:42→20:26)
[2020-01-02] MEDS: Zinc Sulfate 220mg GT SCH (08:42)
--- NOTE | 2020-01-02 08:49 | Pulmonology Progress Note ---
Subjective ROS Limited/Unobtainable: Yes Allergies: Coded Allergies: No Known Allergies (Unverified , 10/07/19) Subjective care noted on vent renal function poor hematuria noted Objective Last 24 Hour Vital Signs Date Time Temp Pulse Resp B/P (MAP) Pulse Ox O2 Delivery O2 Flow Rate FiO2 01/02/20 07:20 88 24 40 01/02/20 06:00 Mechanical Ventilator 5.0 01/02/20 04:00 5.0 40 01/02/20 04:00 96.4 83 24 134/71 (92) 100 01/02/20 04:00 Mechanical Ventilator 5.0 01/02/20 03:25 84 24 40 01/02/20 03:23 86 01/02/20 00:00 97.0 86 24 103/65 (78) 100 01/02/20 00:00 5.0 40 01/02/20 00:00 Mechanical Ventilator 5.0 01/01/20 23:39 92 01/01/20 23:30 87 24 40 01/01/20 20:00 Mechanical Ventilator 5.0 01/01/20 20:00 96.8 86 24 118/64 (82) 100 01/01/20 20:00 5.0 40 01/01/20 19:30 85 24 40 01/01/20 19:05 84 01/01/20 18:49 120/86 (97) 01/01/20 16:00 87 01/01/20 16:00 Mechanical Ventilator 5.0 01/01/20 16:00 97.5 88 19 99/56 (70) 100 01/01/20 16:00 5.0 40 01/01/20 15:25 87 24 40 01/01/20 12:00 5.0 40 01/01/20 12:00 76 01/01/20 12:00 Mechanical Ventilator 5.0 01/01/20 11:46 96.8 82 19 103/58 (73) 100 01/01/20 10:40 86 24 40 01/01/20 09:05 81 24 40 Intake and Output 01/01/20 01/02/20 19:00 07:00 Intake Total 1887.5 ml Output Total 800 ml 750 ml Balance -800 ml 1137.5 ml Intake IV Total 1887.5 ml Output Urine Total 600 ml 450 ml Stool Total 200 ml 300 ml Objective WDWN trach clear breath sounds bilaterally without rhonchi or wheeze [id number] without MRG NABS nontender no HSM no CCE poor LOC Microbiology Date/Time Source Procedure Growth Status 12/30/19 21:50 Blood Blood Culture - Preliminary NO GROWTH AFTER 48 HOURS Resulted 12/30/19 21:50 Blood Blood Culture - Preliminary NO GROWTH AFTER 48 HOURS Resulted 12/31/19 02:10 Sputum Induced Gram Stain - Final Resulted 12/31/19 02:10 Sputum Culture - Preliminary Gram Negative Bacillus 1 Gram Negative Bacillus 2 Gram Negative Bacillus 3 Resulted 12/30/19 22:30 Rectum - Final NO CARBAPENEM-RESISTANT ENTEROBACTERI... Complete Laboratory Tests 01/01/20 09:05: White Blood Count 23.2*H, Red Blood Count 1.93L, Hemoglobin 5.6*L, Hematocrit 16.4L, Mean Corpuscular Volume 85, Mean Corpuscular Hemoglobin 29.1, Mean Corpuscular Hemoglobin Concent 34.5, Red Cell Distribution Width 13.8, Platelet Count 49L, Mean Platelet Volume 12.4H, Neutrophils (%) (Auto) , Lymphocytes (%) (Auto) , Monocytes (%) (Auto) , Eosinophils (%) (Auto) , Basophils (%) (Auto) , Differential Total Cells Counted 100, Neutrophils % (Manual) 82H, Lymphocytes % (Manual) 9L, Monocytes % (Manual) 8, Eosinophils % (Manual) 1, Basophils % ( Manual) 0, Band Neutrophils 0, Platelet Estimate DecreasedL, Platelet Morphology Normal, Hypochromasia 2+ 01/01/20 15:15: Sodium Level 127L, Potassium Level 4.9, Chloride Level 92L, Carbon Dioxide Level 20L, Anion Gap 15, Blood Urea Nitrogen 203H, Creatinine 4.9H, Estimat Glomerular Filtration Rate 15.2, Glucose Level 174H, Calcium Level 8.9 01/02/20 04:00: White Blood Count 19.1H, Red Blood Count 2.66L, Hemoglobin 8.1#L, Hematocrit 22.7#L, Mean Corpuscular Volume 85, Mean Corpuscular Hemoglobin 30.6, Mean Corpuscular Hemoglobin Concent 35.9, Red Cell Distribution Width 13.5, Platelet Count 31L, Mean Platelet Volume 14.7H, Neutrophils (%) (Auto) , Lymphocytes (%) (Auto) , Monocytes (%) (Auto) , Eosinophils (%) (Auto) , Basophils (%) (Auto) , Differential Total Cells Counted 100, Neutrophils % (Manual) 77H, Lymphocytes % (Manual) 13L, Monocytes % (Manual) 6, Eosinophils % (Manual) 4H, Basophils % ( Manual) 0, Band Neutrophils 0, Platelet Estimate DecreasedL, Platelet Morphology Normal, Sodium Level 129L, Potassium Level 4.3, Chloride Level 94L, Carbon Dioxide Level 19L, Anion Gap 16H, Blood Urea Nitrogen 196H, Creatinine 5.0H, Estimat Glomerular Filtration Rate 14.8, Glucose Level 106, Calcium Level 8.8, Anisocytosis 1+, Prothrombin Time 14.3H, Prothromb Time International Ratio 1.3H, Activated Partial Thromboplast Time 35H, Uric Acid 8.8H, Total Bilirubin 0.4, Aspartate Amino Transf (AST/SGOT) 36, Alanine Aminotransferase ( ALT/SGPT) 32, Alkaline Phosphatase 91, Total Protein 5.0L, Albumin 0.6L, Globulin 4.4, Albumin/Globulin Ratio 0.1L Current Medications Medications (Trade) Dose Ordered Sig/[place] Route PRN Reason Start Time Stop Time Status Last Admin Dose Admin Acetaminophen (Tylenol) 650 mg Q4H PRN GT Mild Pain (Pain Scale 1-3) 12/31/19 07:45 01/30/20 07:44 Acetaminophen (Tylenol) 650 mg Q4H PRN GT Temp >100.5 12/31/19 07:45 01/30/20 07:44 Al Hydroxide/Mg Hydroxide (Mylanta) 30 ml QIDPRN PRN GT stomach upset 12/31/19 08:00 01/30/20 07:59 Albuterol Sulfate (Proventil) 2.5 mg Q6H PRN HHN Shortness of Breath 12/31/19 07:45 01/05/20 07:44 Artificial Tears (Akwa-Tears) 1 drop BID BOTH EYES 12/31/19 11:00 01/30/20 10:59 01/01/20 17:29 Ascorbic Acid (Vitamin C) 500 mg DAILY GT 12/31/19 09:00 01/30/20 08:59 01/02/20 08:42 Atorvastatin Calcium (Lipitor) 80 mg BEDTIME GT 12/31/19 21:00 03/30/20 20:59 01/01/20 21:51 Chlorhexidine Gluconate (Sheela-Hex 2%) 1 applic DAILY@2000 TOPIC 01/02/20 20:00 04/01/20 19:59 Dextrose (Dextrose 50%) 25 ml Q30M PRN IV Hypoglycemia 12/31/19 08:45 01/30/20 08:37 12/31/19 18:56 Dextrose (Dextrose 50%) 50 ml Q30M PRN IV hypoglycemia 12/31/19 08:45 03/30/20 08:44 01/01/20 13:05 Dextrose/Sodium Chloride 1,000 ml @ 150 mls/hr Q6H40M IV 01/01/20 16:00 01/31/20 15:59 01/02/20 05:36 Docusate Sodium (Colace) 100 mg DAILY GT 12/31/19 09:00 01/30/20 08:59 01/02/20 08:42 Ferrous Sulfate (Feosol) 325 mg DAILY GT 12/31/19 09:00 03/30/20 08:59 01/02/20 08:42 Insulin Aspart (NovoLOG) No Dose Q6HR SUBQ 12/31/19 12:00 03/30/20 11:59 Insulin Detemir (Levemir) 25 units Q12HR SUBQ 12/31/19 10:00 03/30/20 09:59 12/31/19 10:06 Magnesium Hydroxide (Mom) 30 ml DAILY GT 12/31/19 09:00 01/30/20 08:59 01/02/20 08:42 Pantoprazole (Protonix) 40 mg DAILY IVP 12/31/19 09:00 01/30/20 08:59 01/02/20 08:42 Piperacillin Sod/ Tazobactam Sod 3.375 gm/Sodium Chloride 110 ml @ 27.5 mls/hr Q12HR IVPB 12/31/19 09:00 01/07/20 08:59 01/02/20 08:42 Sodium Hypochlorite (Dakin's Half Strength) 1 applic DAILY TOPIC 01/01/20 09:00 01/31/20 08:59 01/01/20 08:15 Sodium Zirconium Cyclosilicate (Lokelma) 10 gm Q8HR ORAL 01/01/20 22:00 01/03/20 14:01 01/02/20 07:19 Zinc Sulfate (Zinc Sulfate) 220 mg DAILY GT 12/31/19 09:00 03/30/20 08:59 01/02/20 08:42 Assessment/Plan Assessment/Plan IMPRESSION chronic respiratory failure Acute on chronic renal failure elevated K anemia GIB leukocytosis possible sepsis PLAN transfused uro to see IV hydration iv antibiotics ID , GI and renal vent hold feeds snf meds will d/w family as to advance directives prognosis very poor impression, plan, and exam edited and reviewed in detail care discussed with Lorenzo Chase MD January 02, 2020 08:49
[2020-01-02] MEDS: Dakin's 0.25% (Half Strength) 16oz TOPIC SCH (08:56)
--- NOTE | 2020-01-02 09:37 | General Progress Note ---
Assessment/Plan Assessment/Plan: sepsis anemia GIB thrombocytopenia hyponatremia ARF DM dysphagia with GT s/p blood transfusion ppi bid keep npo GI procedures on hold pending COVID clearance fu H&H fu nephrology urology for hematuria plan EGD for tomorrow if stable and if off isolation Subjective ROS Limited/Unobtainable: No Allergies: Coded Allergies: No Known Allergies (Unverified , 10/07/19) Objective Last 24 Hour Vital Signs Date Time Temp Pulse Resp B/P (MAP) Pulse Ox O2 Delivery O2 Flow Rate FiO2 01/02/20 08:00 89 01/02/20 08:00 5.0 40 01/02/20 08:00 96.8 88 24 137/75 (95) 100 01/02/20 08:00 Mechanical Ventilator 5.0 01/02/20 07:20 88 24 40 01/02/20 06:00 Mechanical Ventilator 5.0 01/02/20 04:00 5.0 40 01/02/20 04:00 96.4 83 24 134/71 (92) 100 01/02/20 04:00 Mechanical Ventilator 5.0 01/02/20 03:25 84 24 40 01/02/20 03:23 86 01/02/20 00:00 97.0 86 24 103/65 (78) 100 01/02/20 00:00 5.0 40 01/02/20 00:00 Mechanical Ventilator 5.0 01/01/20 23:39 92 01/01/20 23:30 87 24 40 01/01/20 20:00 Mechanical Ventilator 5.0 01/01/20 20:00 96.8 86 24 118/64 (82) 100 01/01/20 20:00 5.0 40 01/01/20 19:30 85 24 40 01/01/20 19:05 84 01/01/20 18:49 120/86 (97) 01/01/20 16:00 87 01/01/20 16:00 Mechanical Ventilator 5.0 01/01/20 16:00 97.5 88 19 99/56 (70) 100 01/01/20 16:00 5.0 40 01/01/20 15:25 87 24 40 01/01/20 12:00 5.0 40 01/01/20 12:00 76 01/01/20 12:00 Mechanical Ventilator 5.0 01/01/20 11:46 96.8 82 19 103/58 (73) 100 01/01/20 10:40 86 24 40 Intake and Output 01/01/20 01/02/20 19:00 07:00 Intake Total 1887.5 ml Output Total 800 ml 750 ml Balance -800 ml 1137.5 ml Intake IV Total 1887.5 ml Output Urine Total 600 ml 450 ml Stool Total 200 ml 300 ml Laboratory Tests 01/01/20 15:15: Sodium Level 127L, Potassium Level 4.9, Chloride Level 92L, Carbon Dioxide Level 20L, Anion Gap 15, Blood Urea Nitrogen 203H, Creatinine 4.9H, Estimat Glomerular Filtration Rate 15.2, Glucose Level 174H, Calcium Level 8.9 01/02/20 04:00: Sodium Level 129L, Potassium Level 4.3, Chloride Level 94L, Carbon Dioxide Level 19L, Anion Gap 16H, Blood Urea Nitrogen 196H, Creatinine 5.0H, Estimat Glomerular Filtration Rate 14.8, Glucose Level 106, Calcium Level 8.8, White Blood Count 19.1H, Red Blood Count 2.66L, Hemoglobin 8.1#L, Hematocrit 22.7#L, Mean Corpuscular Volume 85, Mean Corpuscular Hemoglobin 30.6, Mean Corpuscular Hemoglobin Concent 35.9, Red Cell Distribution Width 13.5, Platelet Count 31L, Mean Platelet Volume 14.7H, Neutrophils (%) (Auto) , Lymphocytes (%) (Auto) , Monocytes (%) (Auto) , Eosinophils (%) (Auto) , Basophils (%) (Auto) , Differential Total Cells Counted 100, Neutrophils % (Manual) 77H, Lymphocytes % (Manual) 13L, Monocytes % (Manual) 6, Eosinophils % (Manual) 4H, Basophils % ( Manual) 0, Band Neutrophils 0, Platelet Estimate DecreasedL, Platelet Morphology Normal, Anisocytosis 1+, Prothrombin Time 14.3H, Prothromb Time International Ratio 1.3H, Activated Partial Thromboplast Time 35H, Uric Acid 8.8H, Total Bilirubin 0.4, Aspartate Amino Transf (AST/SGOT) 36, Alanine Aminotransferase (ALT/SGPT) 32, Alkaline Phosphatase 91, Total Protein 5.0L, Albumin 0.6L, Globulin 4.4, Albumin/Globulin Ratio 0.1L Height (Feet): 5 Height (Inches): 5.00 Weight (Pounds): 184 General Appearance: no apparent distress EENT: normal ENT inspection Neck: supple Cardiovascular: normal rate Respiratory/Chest: decreased breath sounds Abdomen: normal bowel sounds, non tender, soft Extremities: non-tender Toni Mckenzie MD January 02, 2020 09:37
--- NOTE | 2020-01-02 10:41 | Infectious Diseases Prog Note ---
Assessment/Plan Assessment/Plan A 1. Gram negative pneumonia 2. Acute renal failure 3. Ventilator dependent respiratory failure 4. intracranial hemorrhage 5. paraplegia 6. leucocytosis improving 7. GI bleeding 8. Anemia P 1. continue zosyn 2. will follow up cultures 3. will follow up COVID 19 test Subjective ROS Limited/Unobtainable: Yes Constitutional: Denies: fever Gastrointestinal/Abdominal: Reports: diarrhea Allergies: Coded Allergies: No Known Allergies (Unverified , 10/07/19) Objective Vital Signs Last 24 Hour Vital Signs Date Time Temp Pulse Resp B/P (MAP) Pulse Ox O2 Delivery O2 Flow Rate FiO2 01/02/20 08:00 89 01/02/20 08:00 5.0 40 01/02/20 08:00 96.8 88 24 137/75 (95) 100 01/02/20 08:00 Mechanical Ventilator 5.0 01/02/20 07:20 88 24 40 01/02/20 06:00 Mechanical Ventilator 5.0 01/02/20 04:00 5.0 40 01/02/20 04:00 96.4 83 24 134/71 (92) 100 01/02/20 04:00 Mechanical Ventilator 5.0 01/02/20 03:25 84 24 40 01/02/20 03:23 86 01/02/20 00:00 97.0 86 24 103/65 (78) 100 01/02/20 00:00 5.0 40 01/02/20 00:00 Mechanical Ventilator 5.0 01/01/20 23:39 92 01/01/20 23:30 87 24 40 01/01/20 20:00 Mechanical Ventilator 5.0 01/01/20 20:00 96.8 86 24 118/64 (82) 100 01/01/20 20:00 5.0 40 01/01/20 19:30 85 24 40 01/01/20 19:05 84 01/01/20 18:49 120/86 (97) 01/01/20 16:00 87 01/01/20 16:00 Mechanical Ventilator 5.0 01/01/20 16:00 97.5 88 19 99/56 (70) 100 01/01/20 16:00 5.0 40 01/01/20 15:25 87 24 40 01/01/20 12:00 5.0 40 01/01/20 12:00 76 5/20/20 12:00 Mechanical Ventilator 5.0 01/01/20 11:46 96.8 82 19 103/58 (73) 100 01/01/20 10:40 86 24 40 Height (Feet): 5 Height (Inches): 5.00 Weight (Pounds): 184 HEENT: status post trach Respiratory/Chest: other - on ventilator Cardiovascular: normal rate, other - femoral line Abdomen: soft, non tender, other - GT in place Extremities: other - edema Skin: ulcers, other - sacral stagr IV, bilateral feet nectronic lesions Neurologic/Psychiatric: unresponsiveness Microbiology Date/Time Source Procedure Growth Status 12/30/19 21:50 Blood Blood Culture - Preliminary NO GROWTH AFTER 48 HOURS Resulted 12/30/19 21:50 Blood Blood Culture - Preliminary NO GROWTH AFTER 48 HOURS Resulted 12/31/19 02:10 Sputum Induced Gram Stain - Final Resulted 12/31/19 02:10 Sputum Culture - Preliminary Gram Negative Bacillus 1 Gram Negative Bacillus 2 Gram Negative Bacillus 3 Resulted 12/30/19 22:30 Nasal Nares MRSA Culture - Final NO METHICILLIN RESISTANT STAPH AUREUS... Complete 12/30/19 22:30 Rectum - Final NO CARBAPENEM-RESISTANT ENTEROBACTERI... Complete Laboratory Tests Test 01/01/20 15:15 01/02/20 04:00 Sodium Level 127 MMOL/L (136-145) L 129 MMOL/L (136-145) L Potassium Level 4.9 MMOL/L (3.5-5.1) 4.3 MMOL/L (3.5-5.1) Chloride Level 92 MMOL/L (98-107) L 94 MMOL/L (98-107) L Carbon Dioxide Level 20 MMOL/L (21-32) L 19 MMOL/L (21-32) L Anion Gap 15 mmol/L (5-15) 16 mmol/L (5-15) H Blood Urea Nitrogen 203 mg/dL (7-18) H 196 mg/dL (7-18) H Creatinine 4.9 MG/DL (0.55-1.30) H 5.0 MG/DL (0.55-1.30) H Estimat Glomerular Filtration Rate 15.2 mL/min (>60) 14.8 mL/min (>60) Glucose Level 174 MG/DL (74-106) H 106 MG/DL (74-106) Calcium Level 8.9 MG/DL (8.5-10.1) 8.8 MG/DL (8.5-10.1) White Blood Count 19.1 K/UL (4.8-10.8) H Red Blood Count 2.66 M/UL (4.70-6.10) L Hemoglobin 8.1 G/DL (14.2-18.0) #L Hematocrit 22.7 % (42.0-52.0) #L Mean Corpuscular Volume 85 FL (80-99) Mean Corpuscular Hemoglobin 30.6 PG (27.0-31.0) Mean Corpuscular Hemoglobin Concent 35.9 G/DL (32.0-36.0) Red Cell Distribution Width 13.5 % (11.6-14.8) Platelet Count 31 K/UL (150-450) L Mean Platelet Volume 14.7 FL (6.5-10.1) H Neutrophils (%) (Auto) % (45.0-75.0) Lymphocytes (%) (Auto) % (20.0-45.0) Monocytes (%) (Auto) % (1.0-10.0) Eosinophils (%) (Auto) % (0.0-3.0) Basophils (%) (Auto) % (0.0-2.0) Differential Total Cells Counted 100 Neutrophils % (Manual) 77 % (45-75) H Lymphocytes % (Manual) 13 % (20-45) L Monocytes % (Manual) 6 % (1-10) Eosinophils % (Manual) 4 % (0-3) H Basophils % (Manual) 0 % (0-2) Band Neutrophils 0 % (0-8) Platelet Estimate Decreased L Platelet Morphology Normal Anisocytosis 1+ Prothrombin Time 14.3 SEC (9.30-11.50) H Prothromb Time International Ratio 1.3 (0.9-1.1) H Activated Partial Thromboplast Time 35 SEC (23-33) H Uric Acid 8.8 MG/DL (2.6-7.2) H Total Bilirubin 0.4 MG/DL (0.2-1.0) Aspartate Amino Transf (AST/SGOT) 36 U/L (15-37) Alanine Aminotransferase (ALT/SGPT) 32 U/L (12-78) Alkaline Phosphatase 91 U/L (46-116) Total Protein 5.0 G/DL (6.4-8.2) L Albumin 0.6 G/DL (3.4-5.0) L Globulin 4.4 g/dL Albumin/Globulin Ratio 0.1 (1.0-2.7) L Current Medications Medications (Trade) Dose Ordered Sig/[place] Route PRN Reason Start Time Stop Time Status Last Admin Dose Admin Acetaminophen (Tylenol) 650 mg Q4H PRN GT Mild Pain (Pain Scale 1-3) 12/31/19 07:45 01/30/20 07:44 Acetaminophen (Tylenol) 650 mg Q4H PRN GT Temp >100.5 12/31/19 07:45 01/30/20 07:44 Al Hydroxide/Mg Hydroxide (Mylanta) 30 ml QIDPRN PRN GT stomach upset 12/31/19 08:00 01/30/20 07:59 Albuterol Sulfate (Proventil) 2.5 mg Q6H PRN HHN Shortness of Breath 12/31/19 07:45 01/05/20 07:44 Artificial Tears (Akwa-Tears) 1 drop BID BOTH EYES 12/31/19 11:00 01/30/20 10:59 01/02/20 08:56 Ascorbic Acid (Vitamin C) 500 mg DAILY GT 12/31/19 09:00 01/30/20 08:59 01/02/20 08:42 Atorvastatin Calcium (Lipitor) 80 mg BEDTIME GT 12/31/19 21:00 03/30/20 20:59 01/01/20 21:51 Chlorhexidine Gluconate (Sheela-Hex 2%) 1 applic DAILY@2000 TOPIC 01/02/20 20:00 04/01/20 19:59 Dextrose (Dextrose 50%) 25 ml Q30M PRN IV Hypoglycemia 12/31/19 08:45 01/30/20 08:37 12/31/19 18:56 Dextrose (Dextrose 50%) 50 ml Q30M PRN IV hypoglycemia 12/31/19 08:45 03/30/20 08:44 01/01/20 13:05 Dextrose/Sodium Chloride 1,000 ml @ 150 mls/hr Q6H40M IV 01/01/20 16:00 01/31/20 15:59 01/02/20 05:36 Docusate Sodium (Colace) 100 mg DAILY GT 12/31/19 09:00 01/30/20 08:59 01/02/20 08:42 Ferrous Sulfate (Feosol) 325 mg DAILY GT 12/31/19 09:00 03/30/20 08:59 01/02/20 08:42 Insulin Aspart (NovoLOG) No Dose Q6HR SUBQ 12/31/19 12:00 03/30/20 11:59 Insulin Detemir (Levemir) 25 units Q12HR SUBQ 12/31/19 10:00 03/30/20 09:59 12/31/19 10:06 Magnesium Hydroxide (Mom) 30 ml DAILY GT 12/31/19 09:00 01/30/20 08:59 01/02/20 08:42 Pantoprazole (Protonix) 40 mg Q12H IVP 01/02/20 21:00 02/01/20 20:59 Piperacillin Sod/ Tazobactam Sod 3.375 gm/Sodium Chloride 110 ml @ 27.5 mls/hr Q12HR IVPB 12/31/19 09:00 01/07/20 08:59 01/02/20 08:42 Sodium Hypochlorite (Dakin's Half Strength) 1 applic DAILY TOPIC 01/01/20 09:00 01/31/20 08:59 01/02/20 08:56 Sodium Zirconium Cyclosilicate (Lokelma) 10 gm Q8HR ORAL 01/01/20 22:00 01/03/20 14:01 01/02/20 07:19 Zinc Sulfate (Zinc Sulfate) 220 mg DAILY GT 12/31/19 09:00 03/30/20 08:59 01/02/20 08:42 Anastacio Bustillo MD January 02, 2020 10:41
[2020-01-02 12:00] VITALS: BP 131/70
--- NOTE | 2020-01-02 12:24 | Nephrology Progress Note ---
Assessment/Plan Problem List: (1) Respiratory failure (2) ARF (acute renal failure) (3) Hyponatremia (4) Hyperkalemia (5) Upper GI bleed (6) Pressure sore on sacrum Plan K better, continue iv fluids,BUN/creatinine 70/.91 11/2019 Subjective ROS Limited/Unobtainable: Yes Objective Objective Last 24 Hour Vital Signs Date Time Temp Pulse Resp B/P (MAP) Pulse Ox O2 Delivery O2 Flow Rate FiO2 01/02/20 10:42 83 24 40 01/02/20 08:00 89 01/02/20 08:00 5.0 40 01/02/20 08:00 96.8 88 24 137/75 (95) 100 01/02/20 08:00 Mechanical Ventilator 5.0 01/02/20 07:20 88 24 40 01/02/20 06:00 Mechanical Ventilator 5.0 01/02/20 04:00 5.0 40 01/02/20 04:00 96.4 83 24 134/71 (92) 100 01/02/20 04:00 Mechanical Ventilator 5.0 01/02/20 03:25 84 24 40 01/02/20 03:23 86 01/02/20 00:00 97.0 86 24 103/65 (78) 100 01/02/20 00:00 5.0 40 01/02/20 00:00 Mechanical Ventilator 5.0 01/01/20 23:39 92 01/01/20 23:30 87 24 40 01/01/20 20:00 Mechanical Ventilator 5.0 01/01/20 20:00 96.8 86 24 118/64 (82) 100 01/01/20 20:00 5.0 40 01/01/20 19:30 85 24 40 01/01/20 19:05 84 01/01/20 18:49 120/86 (97) 01/01/20 16:00 87 01/01/20 16:00 Mechanical Ventilator 5.0 01/01/20 16:00 97.5 88 19 99/56 (70) 100 01/01/20 16:00 5.0 40 01/01/20 15:25 87 24 40 Intake and Output 01/01/20 01/02/20 19:00 07:00 Intake Total 1887.5 ml Output Total 800 ml 750 ml Balance -800 ml 1137.5 ml Intake IV Total 1887.5 ml Output Urine Total 600 ml 450 ml Stool Total 200 ml 300 ml Laboratory Tests 01/01/20 15:15: Sodium Level 127L, Potassium Level 4.9, Chloride Level 92L, Carbon Dioxide Level 20L, Anion Gap 15, Blood Urea Nitrogen 203H, Creatinine 4.9H, Estimat Glomerular Filtration Rate 15.2, Glucose Level 174H, Calcium Level 8.9 01/02/20 04:00: Sodium Level 129L, Potassium Level 4.3, Chloride Level 94L, Carbon Dioxide Level 19L, Anion Gap 16H, Blood Urea Nitrogen 196H, Creatinine 5.0H, Estimat Glomerular Filtration Rate 14.8, Glucose Level 106, Calcium Level 8.8, White Blood Count 19.1H, Red Blood Count 2.66L, Hemoglobin 8.1#L, Hematocrit 22.7#L, Mean Corpuscular Volume 85, Mean Corpuscular Hemoglobin 30.6, Mean Corpuscular Hemoglobin Concent 35.9, Red Cell Distribution Width 13.5, Platelet Count 31L, Mean Platelet Volume 14.7H, Neutrophils (%) (Auto) , Lymphocytes (%) (Auto) , Monocytes (%) (Auto) , Eosinophils (%) (Auto) , Basophils (%) (Auto) , Differential Total Cells Counted 100, Neutrophils % (Manual) 77H, Lymphocytes % (Manual) 13L, Monocytes % (Manual) 6, Eosinophils % (Manual) 4H, Basophils % ( Manual) 0, Band Neutrophils 0, Platelet Estimate DecreasedL, Platelet Morphology Normal, Anisocytosis 1+, Prothrombin Time 14.3H, Prothromb Time International Ratio 1.3H, Activated Partial Thromboplast Time 35H, Uric Acid 8.8H, Total Bilirubin 0.4, Aspartate Amino Transf (AST/SGOT) 36, Alanine Aminotransferase (ALT/SGPT) 32, Alkaline Phosphatase 91, Total Protein 5.0L, Albumin 0.6L, Globulin 4.4, Albumin/Globulin Ratio 0.1L 01/02/20 12:05: Reticulocyte Count [Pending], Sickle Cell Screen [Pending], Fibrinogen [Pending] , Iron Level [Pending], Unsaturated Iron Binding [Pending], Ferritin [Pending], Lactate Dehydrogenase [Pending], Carcinoembryonic Antigen [Pending], Vitamin B12 Level [Pending], Hepatitis A IgM Antibody [Pending], Hepatitis B Surface Antigen [Pending], Hepatitis B Core IgM Antibody [Pending], Hepatitis C Antibody [Pending], HIV (1&2) Antibody Rapid [Pending] Height (Feet): 5 Height (Inches): 5.00 Weight (Pounds): 184 General Appearance: lethargic, other - on vent Cardiovascular: regular rhythm Respiratory/Chest: rhonchi - bilaterally Abdomen: soft Extremities: no edema Neurologic: unresponsive Martin Yee MD January 02, 2020 12:24
[2020-01-02 14:16] LABS: FERRITIN 1687 NG/ML (8-388); LACTATE DEHYDROGENASE 196 U/L (81-234)
[2020-01-02 14:17] LABS: % IRON SATURATION 118 % (15-50); IRON 122 ug/dL (50-175); TOTAL IRON BINDING CAPACITY 103 ug/dL (250-450)
[2020-01-02 16:00] VITALS: BP 122/66
--- NOTE | 2020-01-02 16:02 | Surgery Progress Note ---
Surgery Progress Note Subjective Procedure Performed right femoral central venous catheter insertion Symptoms: improved, tolerating diet, voiding well, passing flatus Objective Last 24 Hour Vital Signs Date Time Temp Pulse Resp B/P (MAP) Pulse Ox O2 Delivery O2 Flow Rate FiO2 01/02/20 15:03 86 24 40 01/02/20 12:00 Mechanical Ventilator 5.0 01/02/20 12:00 96.8 85 24 131/70 (90) 100 01/02/20 12:00 5.0 40 01/02/20 11:31 82 01/02/20 10:42 83 24 40 01/02/20 08:00 89 01/02/20 08:00 5.0 40 01/02/20 08:00 96.8 88 24 137/75 (95) 100 01/02/20 08:00 Mechanical Ventilator 5.0 01/02/20 07:20 88 24 40 01/02/20 06:00 Mechanical Ventilator 5.0 01/02/20 04:00 5.0 40 01/02/20 04:00 96.4 83 24 134/71 (92) 100 01/02/20 04:00 Mechanical Ventilator 5.0 01/02/20 03:25 84 24 40 01/02/20 03:23 86 01/02/20 00:00 97.0 86 24 103/65 (78) 100 01/02/20 00:00 5.0 40 01/02/20 00:00 Mechanical Ventilator 5.0 01/01/20 23:39 92 01/01/20 23:30 87 24 40 01/01/20 20:00 Mechanical Ventilator 5.0 01/01/20 20:00 96.8 86 24 118/64 (82) 100 01/01/20 20:00 5.0 40 01/01/20 19:30 85 24 40 01/01/20 19:05 84 01/01/20 18:49 120/86 (97) I&O Intake and Output 01/01/20 01/02/20 19:00 07:00 Intake Total 1887.5 ml Output Total 800 ml 750 ml Balance -800 ml 1137.5 ml Intake IV Total 1887.5 ml Output Urine Total 600 ml 450 ml Stool Total 200 ml 300 ml Dressing: saturated Wound: other Drains: other Cardiovascular: RSR Respiratory: decreased breath sounds Abdomen: non-tender, present bowel sounds Extremities: no tenderness, no cyanosis Laboratory Tests Test 01/02/20 04:00 01/02/20 12:05 White Blood Count 19.1 K/UL (4.8-10.8) H Red Blood Count 2.66 M/UL (4.70-6.10) L Hemoglobin 8.1 G/DL (14.2-18.0) #L Hematocrit 22.7 % (42.0-52.0) #L Mean Corpuscular Volume 85 FL (80-99) Mean Corpuscular Hemoglobin 30.6 PG (27.0-31.0) Mean Corpuscular Hemoglobin Concent 35.9 G/DL (32.0-36.0) Red Cell Distribution Width 13.5 % (11.6-14.8) Platelet Count 31 K/UL (150-450) L Mean Platelet Volume 14.7 FL (6.5-10.1) H Neutrophils (%) (Auto) % (45.0-75.0) Lymphocytes (%) (Auto) % (20.0-45.0) Monocytes (%) (Auto) % (1.0-10.0) Eosinophils (%) (Auto) % (0.0-3.0) Basophils (%) (Auto) % (0.0-2.0) Differential Total Cells Counted 100 Neutrophils % (Manual) 77 % (45-75) H Lymphocytes % (Manual) 13 % (20-45) L Monocytes % (Manual) 6 % (1-10) Eosinophils % (Manual) 4 % (0-3) H Basophils % (Manual) 0 % (0-2) Band Neutrophils 0 % (0-8) Platelet Estimate Decreased L Platelet Morphology Normal Anisocytosis 1+ Prothrombin Time 14.3 SEC (9.30-11.50) H Prothromb Time International Ratio 1.3 (0.9-1.1) H Activated Partial Thromboplast Time 35 SEC (23-33) H Sodium Level 129 MMOL/L (136-145) L Potassium Level 4.3 MMOL/L (3.5-5.1) Chloride Level 94 MMOL/L (98-107) L Carbon Dioxide Level 19 MMOL/L (21-32) L Anion Gap 16 mmol/L (5-15) H Blood Urea Nitrogen 196 mg/dL (7-18) H Creatinine 5.0 MG/DL (0.55-1.30) H Estimat Glomerular Filtration Rate 14.8 mL/min (>60) Glucose Level 106 MG/DL (74-106) Uric Acid 8.8 MG/DL (2.6-7.2) H Calcium Level 8.8 MG/DL (8.5-10.1) Total Bilirubin 0.4 MG/DL (0.2-1.0) Aspartate Amino Transf (AST/SGOT) 36 U/L (15-37) Alanine Aminotransferase (ALT/SGPT) 32 U/L (12-78) Alkaline Phosphatase 91 U/L (46-116) Total Protein 5.0 G/DL (6.4-8.2) L Albumin 0.6 G/DL (3.4-5.0) L Globulin 4.4 g/dL Albumin/Globulin Ratio 0.1 (1.0-2.7) L Reticulocyte Count 0.4 % (0.5-2.0) L Sickle Cell Screen Pending Fibrinogen 441 mg/dL (200-400) H Iron Level 122 ug/dL (50-175) Total Iron Binding Capacity 103 ug/dL (250-450) L Percent Iron Saturation 118 % (15-50) H Unsaturated Iron Binding -19 ug/dL (112-346) L Ferritin 1687 NG/ML (8-388) H Lactate Dehydrogenase 196 U/L (81-234) Carcinoembryonic Antigen Pending Vitamin B12 Level > 2000 PG/ML (193-986) H Hepatitis A IgM Antibody Pending Hepatitis B Surface Antigen Pending Hepatitis B Core IgM Antibody Pending Hepatitis C Antibody Pending HIV (1&2) Antibody Rapid Negative (NEGATIVE) Plan Problems: (1) Hyponatremia (2) ARF (acute renal failure) (3) Hyperkalemia (4) Pressure sore on sacrum Assessment & Plan: Pt presented on admission with Sacral Pressure injury and Necrosis Both Both R lower ext, R foot and L foot. Generalized edema noted. Both upper ext noted to have multiple serous blisters ,some of which are weeping serous exudate. Full thickness Sacral Pressure Injury with undermined Borders. Base of wound is 75% loose necrotic tissue,25% bree. Bone exposure at base of wound. Area of necrosis noted at distal aspect of wound in space between wound and anus.Edges are macerated. Wound is malodorous.(L)9.5cm x (W)9.2cm x (D)2.9cm,undermining clockwise 10-3 by 3.8cm @12 o'clock. Scattered areas of hyperpigmentation noted to R and L clefts of buttocks. Unable to determine exudate as pt is continuously oozing large amt of semi soft black stool and leaking into wound because of close proximity to his rectum. At upper, R gluteal cheek is additional Pressure Injury with small amt Biofilm at base of wound. Edges are pink and adherent to base of wound. No exudate noted.(L)3cm x (W)2.6cm. Medially to distal Tibia,and extending to R foot is necrotic and malodorous.Wound is partially opened at posterior R tibia but is dry . L foot is necrotic and malodorous. No exudate noted. Tx.Plan: Cleanse Sacral wound with Dakin's 0.25% jose.. Loosely Pack wound with Dakin's moistened Kerlix.Apply Moisture Barrier Paste periwound.Cover with Optifoam drsg.Change Daily and PRN. Cleanse R lower ext and R foot with Dakin's 0.25% Jose. Cover wounds with ABD Pads.Wrap with Kerlix Daily and prn. Cleanse L foot Wounds with Dakin's 0.25% Jose. Cover wounds with ABD Pads and wrap with Kerlix Daily and prn. (5) Upper GI bleed Assessment & Plan: Patient with sepsis, abnormal labs, GI bleed, pending COVID eval. Labs noted. Exam reviewed. Chest x-ray noted as below. Discussed with GI. Plan for endoscopy once COVID status evaluated. Trend hemoglobin for now transfuse PRN. G-tube is functional and okay for medications and will plan tube feeds accordingly. No acute surgical intervention as patient is actively bleeding. Proton pump inhibitor recommended and Rx as written. Will follow with recommendations thank you for let me participate in patient's care There is a tracheostomy in place. Vascularity is normal. Hazy densities in the lung bases may be layering effusions. Cardiac and mediastinal silhouette are within normal limits. The bony thorax appear unremarkable. IMPRESSION: Bibasilar hazy densities perhaps layering effusions. Benyamini,Javid January 02, 2020 16:02
[2020-01-02 20:00] VITALS: BP 128/71
[2020-01-02] MEDS: Atorvastatin 80mg tab GT SCH (20:26)
[2020-01-02] MEDS: Dyna-Hex 2% Top Sol 2oz TOPIC SCH (20:26)
[2020-01-03] VITALS (7 sets, daily range): BP systolic 120–148; BP diastolic 68–80
[2020-01-03] MEDS: Insulin NovoLOG Flexpen S/S (Mod) SUBQ SCH ×4 (00:22→17:45)
[2020-01-03] MEDS: D5NS 1,000 ML IV SCH ×2 (00:24→09:41)
[2020-01-03 05:31] LABS: HEMATOCRIT 17.9 % (42.0-52.0); MEAN CORPUSCULAR VOLUME 86 FL (80-99); PLATELET COUNT 21 K/UL (150-450); RED BLOOD COUNT 2.09 M/UL (4.70-6.10); RED CELL DISTRIBUTION WIDTH 13.4 % (11.6-14.8); WHITE BLOOD COUNT 13.3 K/UL (4.8-10.8)
[2020-01-03] MEDS: Lokelma 10gm Pkt ORAL SCH ×2 (05:53→15:56)
[2020-01-03 05:59] LABS: HEMOGLOBIN 6.2 G/DL (14.2-18.0)
[2020-01-03 06:03] LABS: ANION GAP 19 mmol/L (5-15); BLOOD UREA NITROGEN 179 mg/dL (7-18); CALCIUM 7.6 MG/DL (8.5-10.1); CARBON DIOXIDE 16 MMOL/L (21-32); CHLORIDE 102 MMOL/L (98-107); CREATININE 4.5 MG/DL (0.55-1.30); POTASSIUM 2.9 MMOL/L (3.5-5.1); SODIUM 136 MMOL/L (136-145)
[2020-01-03] MEDS: Ferrous Sulfate 300 MG/5 ML UDC GT SCH (09:00)
[2020-01-03] MEDS: Docusate 100mg/10ml Liq GT SCH (09:00)
[2020-01-03] MEDS: Zinc Sulfate 220mg GT SCH (09:00)
[2020-01-03] MEDS: Ascorbic Acid 500mg tab GT SCH (09:00)
[2020-01-03] MEDS: Milk of Magnesia 30ml Ud GT SCH (09:00)
--- NOTE | 2020-01-03 09:23 | Pre-Procedure Note/Attestation ---
Pre-Procedure Note/Attestation Complete Prior to Procedure Planned Procedure: not applicable Procedure Narrative: egd Indications for Procedure Pre-Operative Diagnosis: GIB Attestation I attest that I discussed the nature of the procedure; its benefits; risks and complications; and alternatives (and the risks and benefits of such alternatives ), prior to the procedure, with the patient (or the patient's legal order entry representative). I attest that, if there was a reasonable possibility of needing a blood transfusion, the patient (or the patient's legal order entry representative) was given the [facility] standardized written summary, pursuant to the Renan Anil Blood Safety Act ([place] Health and Safety Code # 1645, as amended). I attest that I re-evaluated the patient just prior to the surgery and that there has been no change in the patient's H&P, except as documented below: Toni Mckenzie MD January 03, 2020 09:22
[2020-01-03] MEDS: Dakin's 0.25% (Half Strength) 16oz TOPIC SCH (09:44)
[2020-01-03] MEDS: Levemir Flexpen SUBQ SCH ×2 (09:46→21:10)
[2020-01-03] MEDS: Piperacillin/Tazobactam 3.375 GM in NS 110 ML IVPB SCH (09:46)
[2020-01-03] MEDS: Pantoprazole Inj IVP SCH ×2 (09:50→21:09)
--- NOTE | 2020-01-03 10:28 | Consultation ---
History of Present Illness General Chief Complaint: Vomiting Present Illness Allergies: Coded Allergies: No Known Allergies (Unverified , 10/07/19) Medication History Scheduled Acetaminophen* (Tylenol Extra Strength*), 640 MG GT DAILY, (Reported) Ascorbic Acid* (Vitamin C*), 500 MG GT DAILY, (Reported) Atorvastatin Calcium* (Lipitor*), 80 MG ORAL BEDTIME, (Reported) Atorvastatin Calcium* (Lipitor*), 80 MG GT BEDTIME, (Reported) Dextran 70/Hypromellose (Artificial Tears Eye Drops*), 1 DROP BOTH EYES BID, ( Reported) Docusate Sodium* (Colace*), 100 MG GT DAILY, (Reported) Ferrous Sulfate* (Ferrous Sulfate*), 325 MG GT DAILY, (Reported) Insulin Glargine (Lantus), 25 SUBQ Q12HR, (Reported) Insulin Lispro (Humalog), 0 SUBQ EVERY 6 HOURS, (Reported) Linezolid* (Zyvox*), 600 MG GT EVERY 12 HOURS, (Reported) Magnesium Hydroxide* (Milk Of Magnesia*), 30 ML ESINUS DAILY, (Reported) Trimethoprim/Sulfamethoxazole (Bactrim Ds Tablet), 1 TAB ORAL TWICE A DAY, ( Reported) Zinc Sulfate (Zinc Sulfate*), 220 MG GT DAILY, (Reported) Scheduled PRN Acetaminophen* (Tylenol Extra Strength*), 640 MG GT Q6H PRN for For Pain, ( Reported) Albuterol Sulfate* (Albuterol Sulfate Hhn*), 3 ML INH Q6H PRN for Shortness of Breath, (Reported) Miscellaneous Medications Sennosides/Docusate Sodium (Senna S Tablet), 1 EACH PO, (Reported) Patient History Healthcare decision maker Resuscitation status Advanced Directive on File Physical Exam Last 24 Hour Vital Signs Date Time Temp Pulse Resp B/P (MAP) Pulse Ox O2 Delivery O2 Flow Rate FiO2 01/03/20 08:00 95.9 82 20 135/74 (94) 100 01/03/20 07:23 81 25 40 01/03/20 04:00 Mechanical Ventilator 5.0 01/03/20 04:00 96.2 79 20 136/73 (94) 99 01/03/20 04:00 80 01/03/20 04:00 5.0 40 5/22/20 03:00 75 24 40 01/03/20 00:00 96.2 72 20 123/73 (90) 99 01/03/20 00:00 75 01/03/20 00:00 Mechanical Ventilator 5.0 01/03/20 00:00 5.0 40 01/02/20 22:46 78 24 40 01/02/20 20:00 79 01/02/20 20:00 96.2 81 20 128/71 (90) 100 01/02/20 20:00 5.0 40 01/02/20 20:00 Mechanical Ventilator 5.0 01/02/20 19:08 66 24 40 01/02/20 16:00 Mechanical Ventilator 5.0 01/02/20 16:00 5.0 40 01/02/20 16:00 88 01/02/20 16:00 96.4 85 20 122/66 (84) 100 01/02/20 15:03 86 24 40 01/02/20 12:00 Mechanical Ventilator 5.0 01/02/20 12:00 96.8 85 24 131/70 (90) 100 01/02/20 12:00 5.0 40 01/02/20 11:31 82 01/02/20 10:42 83 24 40 Intake and Output 01/02/20 01/03/20 19:00 07:00 Intake Total 1610.0 ml 1960.0 ml Output Total 800 ml 700 ml Balance 810.0 ml 1260.0 ml Intake Free Water 600 ml 100 ml IV Total 1010.0 ml 1860.0 ml Output Urine Total 600 ml 500 ml Stool Total 200 ml 200 ml Laboratory Tests Test 01/02/20 12:05 01/03/20 04:00 Reticulocyte Count 0.4 % (0.5-2.0) L Sickle Cell Screen Pending Fibrinogen 441 mg/dL (200-400) H Iron Level 122 ug/dL (50-175) Total Iron Binding Capacity 103 ug/dL (250-450) L Percent Iron Saturation 118 % (15-50) H Unsaturated Iron Binding -19 ug/dL (112-346) L Ferritin 1687 NG/ML (8-388) H Lactate Dehydrogenase 196 U/L (81-234) Carcinoembryonic Antigen 3.1 ng/mL (0.0-4.7) Vitamin B12 Level > 2000 PG/ML (193-986) H Hepatitis A IgM Antibody Negative (Negative) Hepatitis B Surface Antigen Negative (Negative) Hepatitis B Core IgM Antibody Negative (Negative) Hepatitis C Antibody <0.1 s/co ratio HIV (1&2) Antibody Rapid Negative (NEGATIVE) White Blood Count 13.3 K/UL (4.8-10.8) H Red Blood Count 2.09 M/UL (4.70-6.10) L Hemoglobin 6.2 G/DL (14.2-18.0) *L Hematocrit 17.9 % (42.0-52.0) L Mean Corpuscular Volume 86 FL (80-99) Mean Corpuscular Hemoglobin 29.7 PG (27.0-31.0) Mean Corpuscular Hemoglobin Concent 34.7 G/DL (32.0-36.0) Red Cell Distribution Width 13.4 % (11.6-14.8) Platelet Count 21 K/UL (150-450) L Mean Platelet Volume 16.0 FL (6.5-10.1) H Neutrophils (%) (Auto) % (45.0-75.0) Lymphocytes (%) (Auto) % (20.0-45.0) Monocytes (%) (Auto) % (1.0-10.0) Eosinophils (%) (Auto) % (0.0-3.0) Basophils (%) (Auto) % (0.0-2.0) Differential Total Cells Counted 100 Neutrophils % (Manual) 80 % (45-75) H Lymphocytes % (Manual) 13 % (20-45) L Monocytes % (Manual) 4 % (1-10) Eosinophils % (Manual) 2 % (0-3) Basophils % (Manual) 1 % (0-2) Band Neutrophils 0 % (0-8) Platelet Estimate Decreased L Platelet Morphology Normal Hypochromasia 4+ Anisocytosis 1+ Spherocytes 2+ Sodium Level 136 MMOL/L (136-145) Potassium Level 2.9 MMOL/L (3.5-5.1) L Chloride Level 102 MMOL/L (98-107) Carbon Dioxide Level 16 MMOL/L (21-32) L Anion Gap 19 mmol/L (5-15) H Blood Urea Nitrogen 179 mg/dL (7-18) H Creatinine 4.5 MG/DL (0.55-1.30) H Estimat Glomerular Filtration Rate 16.7 mL/min (>60) Glucose Level 285 MG/DL (74-106) #H Calcium Level 7.6 MG/DL (8.5-10.1) L Height (Feet): 5 Height (Inches): 5.00 Weight (Pounds): 157 Medications Current Medications Medications (Trade) Dose Ordered Sig/[place] Route PRN Reason Start Time Stop Time Status Last Admin Dose Admin Acetaminophen (Tylenol) 650 mg Q4H PRN GT Mild Pain (Pain Scale 1-3) 12/31/19 07:45 01/30/20 07:44 Acetaminophen (Tylenol) 650 mg Q4H PRN GT Temp >100.5 12/31/19 07:45 01/30/20 07:44 Al Hydroxide/Mg Hydroxide (Mylanta) 30 ml QIDPRN PRN GT stomach upset 12/31/19 08:00 01/30/20 07:59 Albuterol Sulfate (Proventil) 2.5 mg Q6H PRN HHN Shortness of Breath 12/31/19 07:45 01/05/20 07:44 Artificial Tears (Akwa-Tears) 1 drop BID BOTH EYES 12/31/19 11:00 01/30/20 10:59 01/03/20 09:41 Ascorbic Acid (Vitamin C) 500 mg DAILY GT 12/31/19 09:00 01/30/20 08:59 01/02/20 08:42 Atorvastatin Calcium (Lipitor) 80 mg BEDTIME GT 12/31/19 21:00 03/30/20 20:59 01/02/20 20:26 Chlorhexidine Gluconate (Sheela-Hex 2%) 1 applic DAILY@2000 TOPIC 01/02/20 20:00 04/01/20 19:59 01/02/20 20:26 Dextrose (Dextrose 50%) 25 ml Q30M PRN IV Hypoglycemia 12/31/19 08:45 01/30/20 08:37 12/31/19 18:56 Dextrose (Dextrose 50%) 50 ml Q30M PRN IV hypoglycemia 12/31/19 08:45 03/30/20 08:44 01/01/20 13:05 Dextrose/Sodium Chloride 1,000 ml @ 150 mls/hr Q6H40M IV 01/01/20 16:00 01/31/20 15:59 01/03/20 09:41 Docusate Sodium (Colace) 100 mg DAILY GT 12/31/19 09:00 01/30/20 08:59 01/02/20 08:42 Ferrous Sulfate (Feosol) 325 mg DAILY GT 12/31/19 09:00 03/30/20 08:59 01/02/20 08:42 Insulin Aspart (NovoLOG) No Dose Q6HR SUBQ 12/31/19 12:00 03/30/20 11:59 01/03/20 05:54 Insulin Detemir (Levemir) 25 units Q12HR SUBQ 12/31/19 10:00 03/30/20 09:59 01/03/20 09:46 Magnesium Hydroxide (Mom) 30 ml DAILY GT 12/31/19 09:00 01/30/20 08:59 01/02/20 08:42 Pantoprazole (Protonix) 40 mg Q12H IVP 01/02/20 21:00 02/01/20 20:59 01/03/20 09:50 Piperacillin Sod/ Tazobactam Sod 3.375 gm/Sodium Chloride 110 ml @ 27.5 mls/hr Q12HR IVPB 12/31/19 09:00 01/07/20 08:59 01/03/20 09:46 Sodium Hypochlorite (Dakin's Half Strength) 1 applic DAILY TOPIC 01/01/20 09:00 01/31/20 08:59 01/03/20 09:44 Sodium Zirconium Cyclosilicate (Lokelma) 10 gm Q8HR ORAL 01/01/20 22:00 01/03/20 14:01 01/03/20 05:53 Zinc Sulfate (Zinc Sulfate) 220 mg DAILY GT 12/31/19 09:00 03/30/20 08:59 01/02/20 08:42 Assessment/Plan Assessment/Plan: Hematology Consultation REQ : Sahil De Dios [facility] Thrombocytopenia DOS 01/02/2020 ID [id number]-year-old male who is trach and vent dependent presenting from convalescent home for evaluation of coffee-ground emesis. The patient has a history of intracranial bleed with resultant paraplegia, nonverbal, trach and G-tube dependent. He does not follow commands. According to transport paperwork the patient was f at 1 hour of coffee-ground emesis prior to arrival. Also found to have an elevated BUN. Patient is nonverbal cannot provide any history. No reports of fever or changes in vital signs. At this time,has been seen by several servics, recs noted, has a plt count that is 31k, continues to drop as well as hgb, is pending potential gi procedure, have ordered for DIC panel PMH: Intracranial hemorrhage, paraplegia, nonverbal baseline, trach dependent, G -tube feeding dependent PSH: Tracheostomy, G-tube feeds Allergies: Reviewed in chart Social Hx: Unable to obtain Allergies: Coded Allergies: No Known Allergies (Unverified , 10/07/19) Nursing Documentation-PMH Hx Hypertension: Yes Hx Diabetes: Yes Hx Cerebrovascular Accident: Yes - BRAIN BLEED Review of Systems All Other Systems: limited - Unable to obtain from patient due to mental status Physical Exam: Vitals: reviewed General: NAD HEENT: nc, at Neck: supple++trach Chest: clear breath sounds bilaterally Cardiovascular: RRR, no s3, s4 Abdomen: soft, nontender, nd ++gtube Extremities: no cce, normal range of motion, ++ Spasticity in the left upper extremity. Flaccid on the right. Neuro: nonfocal Labs noted Imaging noted Assessment and recs # Thrombocytopenia - potential causes multifactorial, evaluate liver and viral etiologies to begin, also could be related to underlying medications patient has received. May be due to DIC in this case, or consumption --> Hep panel and HIV negative --> US abd to evaluate for cirrhosis and hsm pending --> Peripheral smear ordered to evaluate for blasts /schistocytes --> abx and other meds have been reviewed --> ok for ppx if plt >50k w/ either heparin or lovenox --> Transfuse if Plt < 20k and fever, or if Plt < 10k without fever --> plt trend 41-->32-->21k --> for sepsis is on abx # Anemia due to Upper GI bleed --> no evidence of hemolysis is noted --> smear noted --> anemia panel reviewed, ferritin high --> no iron or epo needed --> po iron ok --> for hematuria as per urology --> Pending endoscopy when clear from covid19 # Hyperkalemia --> kayxelate as needed # ARF (acute renal failure) --> per renal # Hyponatremia # Gram negative pneumonia # Ventilator dependent respiratory failure # intracranial hemorrhage # paraplegia # Dysphagia with gtube The timing of this note does not necessarily reflect the time of the patient was seen. Greatly appreciate consultation. Wilmer Turner MD January 03, 2020 10:28
--- NOTE | 2020-01-03 10:39 | Diagnostic Imaging Report ---
EXAM: ULTRASOUND US ABD Complete CLINICAL HISTORY: Reason For Exam: ABD PAIN. COMPARISON: None TECHNIQUE: Ultrasound examination of the abdomen includes grayscale images, and color and spectral doppler analysis. FINDINGS: The liver is enlarged. Spleen is homogeneous. Dependent sludge noted in the gallbladder. There is slight wall thickening. Common bile duct measures 4 mm. Midline structures including the pancreas, aorta and cava are obscured. Right kidney has a small cyst. There may be some cortical scarring at the lower pole. Slight fullness of the left collecting system noted without any distinct stone. There is a small amount of ascites. Urinary bladder appears grossly unremarkable. Please note that the balloon catheter is below the bladder. IMPRESSION: DEPENDENT SLUDGE IN THE GALLBLADDER. SLIGHT WALL THICKENING. RIGHT RENAL CYST AND CORTICAL SCARRING. MILD FULLNESS OF THE LEFT COLLECTING SYSTEM. SMALL AMOUNT OF ASCITES. X-RAY FINDING OF PERDOMO BALLOON CATHETER INFERIOR TO THE BLADDER IN THE URETHRA. PATIENT'S NURSE, SOWMYA WAS NOTIFIED.
--- NOTE | 2020-01-03 10:41 | Infectious Diseases Prog Note ---
"Assessment/Plan Assessment/Plan antibiotics : zosyn A 1. e.coli | klebsiella | pseudomonas pneumonia 2. renal failure 3. respiratory failure 4. intracranial hemorrhage 5. paraplegia 6. leucocytosis improving 7. COVID 19 test negative x 1 P 1. d/c zosyn 2. start meropenem, levoquin 3. will follow up cultures 4. COVID 19 test Subjective ROS Limited/Unobtainable: Yes Allergies: Coded Allergies: No Known Allergies (Unverified , 10/07/19) Objective Vital Signs Last 24 Hour Vital Signs Date Time Temp Pulse Resp B/P (MAP) Pulse Ox O2 Delivery O2 Flow Rate FiO2 01/03/20 08:00 95.9 82 20 135/74 (94) 100 01/03/20 07:23 81 25 40 01/03/20 04:00 Mechanical Ventilator 5.0 01/03/20 04:00 96.2 79 20 136/73 (94) 99 01/03/20 04:00 80 01/03/20 04:00 5.0 40 01/03/20 03:00 75 24 40 01/03/20 00:00 96.2 72 20 123/73 (90) 99 01/03/20 00:00 75 01/03/20 00:00 Mechanical Ventilator 5.0 01/03/20 00:00 5.0 40 01/02/20 22:46 78 24 40 01/02/20 20:00 79 01/02/20 20:00 96.2 81 20 128/71 (90) 100 01/02/20 20:00 5.0 40 01/02/20 20:00 Mechanical Ventilator 5.0 01/02/20 19:08 66 24 40 01/02/20 16:00 Mechanical Ventilator 5.0 01/02/20 16:00 5.0 40 01/02/20 16:00 88 01/02/20 16:00 96.4 85 20 122/66 (84) 100 01/02/20 15:03 86 24 40 01/02/20 12:00 Mechanical Ventilator 5.0 01/02/20 12:00 96.8 85 24 131/70 (90) 100 01/02/20 12:00 5.0 40 01/02/20 11:31 82 01/02/20 10:42 83 24 40 Height (Feet): 5 Height (Inches): 5.00 Weight (Pounds): 157 HEENT: status post trach Microbiology Date/Time Source Procedure Growth Status 12/31/19 14:30 Nasopharynx Coronavirus COVID-19 PCR (ABDULKADIR) - Final Complete Laboratory Tests Test 01/02/20 12:05 01/03/20 04:00 Reticulocyte Count 0.4 % (0.5-2.0) L Sickle Cell Screen Pending Fibrinogen 441 mg/dL (200-400) H Iron Level 122 ug/dL (50-175) Total Iron Binding Capacity 103 ug/dL (250-450) L Percent Iron Saturation 118 % (15-50) H Unsaturated Iron Binding -19 ug/dL (112-346) L Ferritin 1687 NG/ML (8-388) H Lactate Dehydrogenase 196 U/L (81-234) Carcinoembryonic Antigen 3.1 ng/mL (0.0-4.7) Vitamin B12 Level > 2000 PG/ML (193-986) H Hepatitis A IgM Antibody Negative (Negative) Hepatitis B Surface Antigen Negative (Negative) Hepatitis B Core IgM Antibody Negative (Negative) Hepatitis C Antibody <0.1 s/co ratio HIV (1&2) Antibody Rapid Negative (NEGATIVE) White Blood Count 13.3 K/UL (4.8-10.8) H Red Blood Count 2.09 M/UL (4.70-6.10) L Hemoglobin 6.2 G/DL (14.2-18.0) *L Hematocrit 17.9 % (42.0-52.0) L Mean Corpuscular Volume 86 FL (80-99) Mean Corpuscular Hemoglobin 29.7 PG (27.0-31.0) Mean Corpuscular Hemoglobin Concent 34.7 G/DL (32.0-36.0) Red Cell Distribution Width 13.4 % (11.6-14.8) Platelet Count 21 K/UL (150-450) L Mean Platelet Volume 16.0 FL (6.5-10.1) H Neutrophils (%) (Auto) % (45.0-75.0) Lymphocytes (%) (Auto) % (20.0-45.0) Monocytes (%) (Auto) % (1.0-10.0) Eosinophils (%) (Auto) % (0.0-3.0) Basophils (%) (Auto) % (0.0-2.0) Differential Total Cells Counted 100 Neutrophils % (Manual) 80 % (45-75) H Lymphocytes % (Manual) 13 % (20-45) L Monocytes % (Manual) 4 % (1-10) Eosinophils % (Manual) 2 % (0-3) Basophils % (Manual) 1 % (0-2) Band Neutrophils 0 % (0-8) Platelet Estimate Decreased L Platelet Morphology Normal Hypochromasia 4+ Anisocytosis 1+ Spherocytes 2+ Sodium Level 136 MMOL/L (136-145) Potassium Level 2.9 MMOL/L (3.5-5.1) L Chloride Level 102 MMOL/L (98-107) Carbon Dioxide Level 16 MMOL/L (21-32) L Anion Gap 19 mmol/L (5-15) H Blood Urea Nitrogen 179 mg/dL (7-18) H Creatinine 4.5 MG/DL (0.55-1.30) H Estimat Glomerular Filtration Rate 16.7 mL/min (>60) Glucose Level 285 MG/DL (74-106) #H Calcium Level 7.6 MG/DL (8.5-10.1) L Current Medications Medications (Trade) Dose Ordered Sig/[place] Route PRN Reason Start Time Stop Time Status Last Admin Dose Admin Acetaminophen (Tylenol) 650 mg Q4H PRN GT Mild Pain (Pain Scale 1-3) 12/31/19 07:45 01/30/20 07:44 Acetaminophen (Tylenol) 650 mg Q4H PRN GT Temp >100.5 12/31/19 07:45 01/30/20 07:44 Al Hydroxide/Mg Hydroxide (Mylanta) 30 ml QIDPRN PRN GT stomach upset 12/31/19 08:00 01/30/20 07:59 Albuterol Sulfate (Proventil) 2.5 mg Q6H PRN HHN Shortness of Breath 12/31/19 07:45 01/05/20 07:44 Artificial Tears (Akwa-Tears) 1 drop BID BOTH EYES 12/31/19 11:00 01/30/20 10:59 01/03/20 09:41 Ascorbic Acid (Vitamin C) 500 mg DAILY GT 12/31/19 09:00 01/30/20 08:59 01/02/20 08:42 Atorvastatin Calcium (Lipitor) 80 mg BEDTIME GT 12/31/19 21:00 03/30/20 20:59 01/02/20 20:26 Chlorhexidine Gluconate (Sheela-Hex 2%) 1 applic DAILY@2000 TOPIC 01/02/20 20:00 04/01/20 19:59 01/02/20 20:26 Dextrose (Dextrose 50%) 25 ml Q30M PRN IV Hypoglycemia 12/31/19 08:45 01/30/20 08:37 12/31/19 18:56 Dextrose (Dextrose 50%) 50 ml Q30M PRN IV hypoglycemia 12/31/19 08:45 03/30/20 08:44 01/01/20 13:05 Dextrose/Sodium Chloride 1,000 ml @ 150 mls/hr Q6H40M IV 01/01/20 16:00 01/31/20 15:59 01/03/20 09:41 Docusate Sodium (Colace) 100 mg DAILY GT 12/31/19 09:00 01/30/20 08:59 01/02/20 08:42 Ferrous Sulfate (Feosol) 325 mg DAILY GT 12/31/19 09:00 03/30/20 08:59 01/02/20 08:42 Insulin Aspart (NovoLOG) No Dose Q6HR SUBQ 12/31/19 12:00 03/30/20 11:59 01/03/20 05:54 Insulin Detemir (Levemir) 25 units Q12HR SUBQ 12/31/19 10:00 03/30/20 09:59 01/03/20 09:46 Magnesium Hydroxide (Mom) 30 ml DAILY GT 12/31/19 09:00 01/30/20 08:59 01/02/20 08:42 Pantoprazole (Protonix) 40 mg Q12H IVP 01/02/20 21:00 02/01/20 20:59 01/03/20 09:50 Piperacillin Sod/ Tazobactam Sod 3.375 gm/Sodium Chloride 110 ml @ 27.5 mls/hr Q12HR IVPB 12/31/19 09:00 01/07/20 08:59 01/03/20 09:46 Sodium Hypochlorite (Dakin's Half Strength) 1 applic DAILY TOPIC 01/01/20 09:00 01/31/20 08:59 01/03/20 09:44 Sodium Zirconium Cyclosilicate (Lokelma) 10 gm Q8HR ORAL 01/01/20 22:00 01/03/20 14:01 01/03/20 05:53 Zinc Sulfate (Zinc Sulfate) 220 mg DAILY GT 12/31/19 09:00 03/30/20 08:59 01/02/20 08:42 Tony Apple MD January 03, 2020 10:41"
--- NOTE | 2020-01-03 10:56 | General Progress Note ---
Assessment/Plan Assessment/Plan: sepsis anemia GIB thrombocytopenia hyponatremia ARF DM dysphagia with GT EGD was canceled today given still pending blood transfusion and still in isolation transfuse fu H&H ppi bid EGD when more stable Subjective ROS Limited/Unobtainable: No Allergies: Coded Allergies: No Known Allergies (Unverified , 10/07/19) Objective Last 24 Hour Vital Signs Date Time Temp Pulse Resp B/P (MAP) Pulse Ox O2 Delivery O2 Flow Rate FiO2 01/03/20 08:00 95.9 82 20 135/74 (94) 100 01/03/20 07:23 81 25 40 01/03/20 04:00 Mechanical Ventilator 5.0 01/03/20 04:00 96.2 79 20 136/73 (94) 99 01/03/20 04:00 80 01/03/20 04:00 5.0 40 01/03/20 03:00 75 24 40 01/03/20 00:00 96.2 72 20 123/73 (90) 99 01/03/20 00:00 75 01/03/20 00:00 Mechanical Ventilator 5.0 01/03/20 00:00 5.0 40 01/02/20 22:46 78 24 40 01/02/20 20:00 79 01/02/20 20:00 96.2 81 20 128/71 (90) 100 01/02/20 20:00 5.0 40 01/02/20 20:00 Mechanical Ventilator 5.0 01/02/20 19:08 66 24 40 01/02/20 16:00 Mechanical Ventilator 5.0 01/02/20 16:00 5.0 40 01/02/20 16:00 88 01/02/20 16:00 96.4 85 20 122/66 (84) 100 01/02/20 15:03 86 24 40 01/02/20 12:00 Mechanical Ventilator 5.0 01/02/20 12:00 96.8 85 24 131/70 (90) 100 01/02/20 12:00 5.0 40 01/02/20 11:31 82 Intake and Output 01/02/20 01/03/20 19:00 07:00 Intake Total 1610.0 ml 1960.0 ml Output Total 800 ml 700 ml Balance 810.0 ml 1260.0 ml Intake Free Water 600 ml 100 ml IV Total 1010.0 ml 1860.0 ml Output Urine Total 600 ml 500 ml Stool Total 200 ml 200 ml Laboratory Tests 01/02/20 12:05: Reticulocyte Count 0.4L, Sickle Cell Screen [Pending], Fibrinogen 441H, Iron Level 122, Total Iron Binding Capacity 103L, Percent Iron Saturation 118H, Unsaturated Iron Binding -19L, Ferritin 1687H, Lactate Dehydrogenase 196, Carcinoembryonic Antigen 3.1, Vitamin B12 Level > 2000H, Hepatitis A IgM Antibody Negative, Hepatitis B Surface Antigen Negative, Hepatitis B Core IgM Antibody Negative, Hepatitis C Antibody <0.1, HIV (1&2) Antibody Rapid Negative 01/03/20 04:00: White Blood Count 13.3H, Red Blood Count 2.09L, Hemoglobin 6.2*L, Hematocrit 17.9L, Mean Corpuscular Volume 86, Mean Corpuscular Hemoglobin 29.7, Mean Corpuscular Hemoglobin Concent 34.7, Red Cell Distribution Width 13.4, Platelet Count 21L, Mean Platelet Volume 16.0H, Neutrophils (%) (Auto) , Lymphocytes (%) (Auto) , Monocytes (%) (Auto) , Eosinophils (%) (Auto) , Basophils (%) (Auto) , Differential Total Cells Counted 100, Neutrophils % (Manual) 80H, Lymphocytes % (Manual) 13L, Monocytes % (Manual) 4, Eosinophils % (Manual) 2, Basophils % ( Manual) 1, Band Neutrophils 0, Platelet Estimate DecreasedL, Platelet Morphology Normal, Hypochromasia 4+, Anisocytosis 1+, Spherocytes 2+, Haptoglobin [Pending], Sodium Level 136, Potassium Level 2.9L, Chloride Level 102, Carbon Dioxide Level 16L, Anion Gap 19H, Blood Urea Nitrogen 179H, Creatinine 4.5H, Estimat Glomerular Filtration Rate 16.7, Glucose Level 285#H, Calcium Level 7.6L Height (Feet): 5 Height (Inches): 5.00 Weight (Pounds): 157 General Appearance: lethargic EENT: normal ENT inspection Neck: supple Cardiovascular: normal rate Respiratory/Chest: decreased breath sounds Abdomen: normal bowel sounds, non tender, soft Extremities: non-tender Toni Mckenzie MD January 03, 2020 10:56
--- NOTE | 2020-01-03 11:34 | Pulmonology Progress Note ---
Subjective ROS Limited/Unobtainable: Yes Constitutional: Denies: fever Gastrointestinal/Abdominal: Reports: diarrhea Allergies: Coded Allergies: No Known Allergies (Unverified , 10/07/19) Subjective care noted on vent anemia worse renal function poor hematuria Objective Last 24 Hour Vital Signs Date Time Temp Pulse Resp B/P (MAP) Pulse Ox O2 Delivery O2 Flow Rate FiO2 01/03/20 11:07 82 26 40 01/03/20 08:00 95.9 82 20 135/74 (94) 100 01/03/20 07:23 81 25 40 01/03/20 04:00 Mechanical Ventilator 5.0 01/03/20 04:00 96.2 79 20 136/73 (94) 99 01/03/20 04:00 80 01/03/20 04:00 5.0 40 01/03/20 03:00 75 24 40 01/03/20 00:00 96.2 72 20 123/73 (90) 99 01/03/20 00:00 75 01/03/20 00:00 Mechanical Ventilator 5.0 01/03/20 00:00 5.0 40 01/02/20 22:46 78 24 40 01/02/20 20:00 79 01/02/20 20:00 96.2 81 20 128/71 (90) 100 01/02/20 20:00 5.0 40 01/02/20 20:00 Mechanical Ventilator 5.0 01/02/20 19:08 66 24 40 01/02/20 16:00 Mechanical Ventilator 5.0 01/02/20 16:00 5.0 40 01/02/20 16:00 88 01/02/20 16:00 96.4 85 20 122/66 (84) 100 01/02/20 15:03 86 24 40 01/02/20 12:00 Mechanical Ventilator 5.0 01/02/20 12:00 96.8 85 24 131/70 (90) 100 01/02/20 12:00 5.0 40 Intake and Output 01/02/20 01/03/20 19:00 07:00 Intake Total 1610.0 ml 1960.0 ml Output Total 800 ml 700 ml Balance 810.0 ml 1260.0 ml Intake Free Water 600 ml 100 ml IV Total 1010.0 ml 1860.0 ml Output Urine Total 600 ml 500 ml Stool Total 200 ml 200 ml Objective WDWN trach clear breath sounds bilaterally without rhonchi or wheeze [id number] without MRG NABS nontender no HSM no CCE poor LOC Microbiology Date/Time Source Procedure Growth Status 12/31/19 14:30 Nasopharynx Coronavirus COVID-19 PCR (ABDULKADIR) - Final Complete Laboratory Tests 01/02/20 12:05: Reticulocyte Count 0.4L, Sickle Cell Screen [Pending], Fibrinogen 441H, Iron Level 122, Total Iron Binding Capacity 103L, Percent Iron Saturation 118H, Unsaturated Iron Binding -19L, Ferritin 1687H, Lactate Dehydrogenase 196, Carcinoembryonic Antigen 3.1, Vitamin B12 Level > 2000H, Hepatitis A IgM Antibody Negative, Hepatitis B Surface Antigen Negative, Hepatitis B Core IgM Antibody Negative, Hepatitis C Antibody <0.1, HIV (1&2) Antibody Rapid Negative 01/03/20 04:00: White Blood Count 13.3H, Red Blood Count 2.09L, Hemoglobin 6.2*L, Hematocrit 17.9L, Mean Corpuscular Volume 86, Mean Corpuscular Hemoglobin 29.7, Mean Corpuscular Hemoglobin Concent 34.7, Red Cell Distribution Width 13.4, Platelet Count 21L, Mean Platelet Volume 16.0H, Neutrophils (%) (Auto) , Lymphocytes (%) (Auto) , Monocytes (%) (Auto) , Eosinophils (%) (Auto) , Basophils (%) (Auto) , Differential Total Cells Counted 100, Neutrophils % (Manual) 80H, Lymphocytes % (Manual) 13L, Monocytes % (Manual) 4, Eosinophils % (Manual) 2, Basophils % ( Manual) 1, Band Neutrophils 0, Platelet Estimate DecreasedL, Platelet Morphology Normal, Hypochromasia 4+, Anisocytosis 1+, Spherocytes 2+, Haptoglobin [Pending], Sodium Level 136, Potassium Level 2.9L, Chloride Level 102, Carbon Dioxide Level 16L, Anion Gap 19H, Blood Urea Nitrogen 179H, Creatinine 4.5H, Estimat Glomerular Filtration Rate 16.7, Glucose Level 285#H, Calcium Level 7.6L Current Medications Medications (Trade) Dose Ordered Sig/[place] Route PRN Reason Start Time Stop Time Status Last Admin Dose Admin Acetaminophen (Tylenol) 650 mg Q4H PRN GT Mild Pain (Pain Scale 1-3) 12/31/19 07:45 01/30/20 07:44 Acetaminophen (Tylenol) 650 mg Q4H PRN GT Temp >100.5 12/31/19 07:45 01/30/20 07:44 Al Hydroxide/Mg Hydroxide (Mylanta) 30 ml QIDPRN PRN GT stomach upset 12/31/19 08:00 01/30/20 07:59 Albuterol Sulfate (Proventil) 2.5 mg Q6H PRN HHN Shortness of Breath 12/31/19 07:45 01/05/20 07:44 Artificial Tears (Akwa-Tears) 1 drop BID BOTH EYES 12/31/19 11:00 01/30/20 10:59 01/03/20 09:41 Ascorbic Acid (Vitamin C) 500 mg DAILY GT 12/31/19 09:00 01/30/20 08:59 01/02/20 08:42 Atorvastatin Calcium (Lipitor) 80 mg BEDTIME GT 12/31/19 21:00 03/30/20 20:59 01/02/20 20:26 Chlorhexidine Gluconate (Sheela-Hex 2%) 1 applic DAILY@2000 TOPIC 01/02/20 20:00 04/01/20 19:59 01/02/20 20:26 Dextrose (Dextrose 50%) 25 ml Q30M PRN IV Hypoglycemia 12/31/19 08:45 01/30/20 08:37 12/31/19 18:56 Dextrose (Dextrose 50%) 50 ml Q30M PRN IV hypoglycemia 12/31/19 08:45 03/30/20 08:44 01/01/20 13:05 Dextrose/Sodium Chloride 1,000 ml @ 150 mls/hr Q6H40M IV 01/01/20 16:00 01/31/20 15:59 01/03/20 09:41 Docusate Sodium (Colace) 100 mg DAILY GT 12/31/19 09:00 01/30/20 08:59 01/02/20 08:42 Ferrous Sulfate (Feosol) 325 mg DAILY GT 12/31/19 09:00 03/30/20 08:59 01/02/20 08:42 Insulin Aspart (NovoLOG) No Dose Q6HR SUBQ 12/31/19 12:00 03/30/20 11:59 01/03/20 05:54 Insulin Detemir (Levemir) 25 units Q12HR SUBQ 12/31/19 10:00 03/30/20 09:59 01/03/20 09:46 Levofloxacin (Levaquin) 500 mg Q48H ORAL 01/03/20 12:00 01/10/20 11:59 Magnesium Hydroxide (Mom) 30 ml DAILY GT 12/31/19 09:00 01/30/20 08:59 01/02/20 08:42 Meropenem 500 mg/ Sodium Chloride 55 ml @ 110 mls/hr Q24H IVPB 01/03/20 11:00 01/08/20 10:59 Pantoprazole (Protonix) 40 mg Q12H IVP 01/02/20 21:00 02/01/20 20:59 01/03/20 09:50 Sodium Hypochlorite (Dakin's Half Strength) 1 applic DAILY TOPIC 01/01/20 09:00 01/31/20 08:59 01/03/20 09:44 Sodium Zirconium Cyclosilicate (Lokelma) 10 gm Q8HR ORAL 01/01/20 22:00 01/03/20 14:01 01/03/20 05:53 Zinc Sulfate (Zinc Sulfate) 220 mg DAILY GT 12/31/19 09:00 03/30/20 08:59 01/02/20 08:42 Assessment/Plan Assessment/Plan IMPRESSION chronic respiratory failure Acute on chronic renal failure elevated K anemia GIB leukocytosis possible sepsis PLAN transfusion needed uro IV hydration iv antibiotics ID , GI and renal vent hold feeds snf meds will d/w family as to advance directives- per , still wants full code prognosis very poor impression, plan, and exam edited and reviewed in detail care discussed with Lorenzo Chase MD January 03, 2020 11:34
--- NOTE | 2020-01-03 11:59 | Diagnostic Imaging Report ---
EXAM: ULTRASOUND Venous Duplex Scan Prieto Leg CLINICAL HISTORY: Leg pain and edema. COMPARISON: None TECHNIQUE: Doppler examination include grayscale images obtained with and without compression, and color and spectral doppler analysis. FINDINGS: Doppler examination shows normal spontaneity, phasicity, compressibility in the bilateral lower extremities. There is no thrombus identified by grayscale. Normal color and spectral flow is identified. There is no evidence of valvular incompetency or insufficiency. IMPRESSION: UNREMARKABLE VENOUS DUPLEX.
[2020-01-03] MEDS: Meropenem 500 MG in NS 55 ML IVPB SCH (13:00)
[2020-01-03] MEDS: Levofloxacin 500mg tab ORAL SCH (13:00)
--- NOTE | 2020-01-03 13:16 | Surgery Progress Note ---
Surgery Progress Note Subjective Procedure Performed right femoral central venous catheter insertion Additional Comments ill appearing anemia worse plt low heme input noted no n/v//f/c Objective Last 24 Hour Vital Signs Date Time Temp Pulse Resp B/P (MAP) Pulse Ox O2 Delivery O2 Flow Rate FiO2 01/03/20 11:07 82 26 40 01/03/20 08:00 85 01/03/20 08:00 95.9 82 20 135/74 (94) 100 01/03/20 08:00 5.0 40 01/03/20 08:00 Mechanical Ventilator 5.0 01/03/20 07:23 81 25 40 01/03/20 04:00 Mechanical Ventilator 5.0 01/03/20 04:00 96.2 79 20 136/73 (94) 99 01/03/20 04:00 80 01/03/20 04:00 5.0 40 01/03/20 03:00 75 24 40 01/03/20 00:00 96.2 72 20 123/73 (90) 99 01/03/20 00:00 75 01/03/20 00:00 Mechanical Ventilator 5.0 01/03/20 00:00 5.0 40 01/02/20 22:46 78 24 40 01/02/20 20:00 79 01/02/20 20:00 96.2 81 20 128/71 (90) 100 01/02/20 20:00 5.0 40 01/02/20 20:00 Mechanical Ventilator 5.0 01/02/20 19:08 66 24 40 01/02/20 16:00 Mechanical Ventilator 5.0 01/02/20 16:00 5.0 40 01/02/20 16:00 88 01/02/20 16:00 96.4 85 20 122/66 (84) 100 01/02/20 15:03 86 24 40 I&O Intake and Output 01/02/20 01/03/20 19:00 07:00 Intake Total 1610.0 ml 1960.0 ml Output Total 800 ml 700 ml Balance 810.0 ml 1260.0 ml Intake Free Water 600 ml 100 ml IV Total 1010.0 ml 1860.0 ml Output Urine Total 600 ml 500 ml Stool Total 200 ml 200 ml Dressing: saturated Cardiovascular: RSR Respiratory: decreased breath sounds Abdomen: soft, non-tender, present bowel sounds Extremities: no cyanosis Laboratory Tests Test 01/03/20 04:00 White Blood Count 13.3 K/UL (4.8-10.8) H Red Blood Count 2.09 M/UL (4.70-6.10) L Hemoglobin 6.2 G/DL (14.2-18.0) *L Hematocrit 17.9 % (42.0-52.0) L Mean Corpuscular Volume 86 FL (80-99) Mean Corpuscular Hemoglobin 29.7 PG (27.0-31.0) Mean Corpuscular Hemoglobin Concent 34.7 G/DL (32.0-36.0) Red Cell Distribution Width 13.4 % (11.6-14.8) Platelet Count 21 K/UL (150-450) L Mean Platelet Volume 16.0 FL (6.5-10.1) H Neutrophils (%) (Auto) % (45.0-75.0) Lymphocytes (%) (Auto) % (20.0-45.0) Monocytes (%) (Auto) % (1.0-10.0) Eosinophils (%) (Auto) % (0.0-3.0) Basophils (%) (Auto) % (0.0-2.0) Differential Total Cells Counted 100 Neutrophils % (Manual) 80 % (45-75) H Lymphocytes % (Manual) 13 % (20-45) L Monocytes % (Manual) 4 % (1-10) Eosinophils % (Manual) 2 % (0-3) Basophils % (Manual) 1 % (0-2) Band Neutrophils 0 % (0-8) Platelet Estimate Decreased L Platelet Morphology Normal Hypochromasia 4+ Anisocytosis 1+ Spherocytes 2+ Haptoglobin Pending Sodium Level 136 MMOL/L (136-145) Potassium Level 2.9 MMOL/L (3.5-5.1) L Chloride Level 102 MMOL/L (98-107) Carbon Dioxide Level 16 MMOL/L (21-32) L Anion Gap 19 mmol/L (5-15) H Blood Urea Nitrogen 179 mg/dL (7-18) H Creatinine 4.5 MG/DL (0.55-1.30) H Estimat Glomerular Filtration Rate 16.7 mL/min (>60) Glucose Level 285 MG/DL (74-106) #H Calcium Level 7.6 MG/DL (8.5-10.1) L Plan Problems: (1) Hyponatremia (2) ARF (acute renal failure) (3) Hyperkalemia (4) Pressure sore on sacrum Assessment & Plan: Pt presented on admission with Sacral Pressure injury and Necrosis Both Both R lower ext, R foot and L foot. Generalized edema noted. Both upper ext noted to have multiple serous blisters ,some of which are weeping serous exudate. Full thickness Sacral Pressure Injury with undermined Borders. Base of wound is 75% loose necrotic tissue,25% bree. Bone exposure at base of wound. Area of necrosis noted at distal aspect of wound in space between wound and anus.Edges are macerated. Wound is malodorous.(L)9.5cm x (W)9.2cm x (D)2.9cm,undermining clockwise 10-3 by 3.8cm @12 o'clock. Scattered areas of hyperpigmentation noted to R and L clefts of buttocks. Unable to determine exudate as pt is continuously oozing large amt of semi soft black stool and leaking into wound because of close proximity to his rectum. At upper, R gluteal cheek is additional Pressure Injury with small amt Biofilm at base of wound. Edges are pink and adherent to base of wound. No exudate noted.(L)3cm x (W)2.6cm. Medially to distal Tibia,and extending to R foot is necrotic and malodorous.Wound is partially opened at posterior R tibia but is dry . L foot is necrotic and malodorous. No exudate noted. Tx.Plan: Cleanse Sacral wound with Dakin's 0.25% jose.. Loosely Pack wound with Dakin's moistened Kerlix.Apply Moisture Barrier Paste periwound.Cover with Optifoam drsg.Change Daily and PRN. Cleanse R lower ext and R foot with Dakin's 0.25% Jose. Cover wounds with ABD Pads.Wrap with Kerlix Daily and prn. Cleanse L foot Wounds with Dakin's 0.25% Jose. Cover wounds with ABD Pads and wrap with Kerlix Daily and prn. (5) Upper GI bleed Assessment & Plan: Patient with sepsis, abnormal labs, GI bleed, pending COVID eval. Labs noted. Exam reviewed. Chest x-ray noted as below. Discussed with GI. Plan for endoscopy once COVID status evaluated. Trend hemoglobin for now transfuse PRN. G-tube is functional and okay for medications and will plan tube feeds accordingly. No acute surgical intervention as patient is actively bleeding. Proton pump inhibitor recommended and Rx as written. Will follow with recommendations thank you for let me participate in patient's care There is a tracheostomy in place. Vascularity is normal. Hazy densities in the lung bases may be layering effusions. Cardiac and mediastinal silhouette are within normal limits. The bony thorax appear unremarkable. IMPRESSION: Bibasilar hazy densities perhaps layering effusions. Javid Singh January 03, 2020 13:16
--- NOTE | 2020-01-03 14:45 | Nephrology Progress Note ---
Assessment/Plan Problem List: (1) Respiratory failure (2) ARF (acute renal failure) (3) Hyponatremia (4) Hyperkalemia (5) Upper GI bleed (6) Pressure sore on sacrum Plan K kayy to correct, continue iv fluids,BUN/creatinine 70/.91 11/2019 Subjective ROS Limited/Unobtainable: Yes Objective Objective Last 24 Hour Vital Signs Date Time Temp Pulse Resp B/P (MAP) Pulse Ox O2 Delivery O2 Flow Rate FiO2 01/03/20 11:07 82 26 40 01/03/20 08:00 85 01/03/20 08:00 95.9 82 20 135/74 (94) 100 01/03/20 08:00 5.0 40 01/03/20 08:00 Mechanical Ventilator 5.0 01/03/20 07:23 81 25 40 01/03/20 04:00 Mechanical Ventilator 5.0 01/03/20 04:00 96.2 79 20 136/73 (94) 99 01/03/20 04:00 80 01/03/20 04:00 5.0 40 01/03/20 03:00 75 24 40 01/03/20 00:00 96.2 72 20 123/73 (90) 99 01/03/20 00:00 75 01/03/20 00:00 Mechanical Ventilator 5.0 01/03/20 00:00 5.0 40 01/02/20 22:46 78 24 40 01/02/20 20:00 79 01/02/20 20:00 96.2 81 20 128/71 (90) 100 01/02/20 20:00 5.0 40 01/02/20 20:00 Mechanical Ventilator 5.0 01/02/20 19:08 66 24 40 01/02/20 16:00 Mechanical Ventilator 5.0 01/02/20 16:00 5.0 40 01/02/20 16:00 88 01/02/20 16:00 96.4 85 20 122/66 (84) 100 01/02/20 15:03 86 24 40 Intake and Output 01/02/20 01/03/20 19:00 07:00 Intake Total 1610.0 ml 1960.0 ml Output Total 800 ml 700 ml Balance 810.0 ml 1260.0 ml Intake Free Water 600 ml 100 ml IV Total 1010.0 ml 1860.0 ml Output Urine Total 600 ml 500 ml Stool Total 200 ml 200 ml Laboratory Tests 01/03/20 04:00: White Blood Count 13.3H, Red Blood Count 2.09L, Hemoglobin 6.2*L, Hematocrit 17.9L, Mean Corpuscular Volume 86, Mean Corpuscular Hemoglobin 29.7, Mean Corpuscular Hemoglobin Concent 34.7, Red Cell Distribution Width 13.4, Platelet Count 21L, Mean Platelet Volume 16.0H, Neutrophils (%) (Auto) , Lymphocytes (%) (Auto) , Monocytes (%) (Auto) , Eosinophils (%) (Auto) , Basophils (%) (Auto) , Differential Total Cells Counted 100, Neutrophils % (Manual) 80H, Lymphocytes % (Manual) 13L, Monocytes % (Manual) 4, Eosinophils % (Manual) 2, Basophils % ( Manual) 1, Band Neutrophils 0, Platelet Estimate DecreasedL, Platelet Morphology Normal, Hypochromasia 4+, Anisocytosis 1+, Spherocytes 2+, Haptoglobin [Pending], Sodium Level 136, Potassium Level 2.9L, Chloride Level 102, Carbon Dioxide Level 16L, Anion Gap 19H, Blood Urea Nitrogen 179H, Creatinine 4.5H, Estimat Glomerular Filtration Rate 16.7, Glucose Level 285#H, Calcium Level 7.6L Height (Feet): 5 Height (Inches): 5.00 Weight (Pounds): 157 General Appearance: lethargic, other - on vent Cardiovascular: regular rhythm Respiratory/Chest: rhonchi - bilaterally Abdomen: non tender Extremities: no edema Neurologic: unresponsive Martin Yee MD January 03, 2020 14:45
[2020-01-03] MEDS ORDERED: LORazepam Inj 2mg/ml 1ml IV PRN (18:00)
[2020-01-03] MEDS: Atorvastatin 80mg tab GT SCH (21:09)
[2020-01-03] MEDS: Dyna-Hex 2% Top Sol 2oz TOPIC SCH (21:09)
[2020-01-04] VITALS: BP 149/74
[2020-01-04 04:00] VITALS: BP 119/75
[2020-01-04] MEDS: Insulin NovoLOG Flexpen S/S (Mod) SUBQ SCH ×5 (05:03→23:13)
[2020-01-04 06:01] LABS: HEMATOCRIT 25.7 % (42.0-52.0); HEMOGLOBIN 9.1 G/DL (14.2-18.0); MEAN CORPUSCULAR VOLUME 84 FL (80-99); PLATELET COUNT 20 K/UL (150-450); RED BLOOD COUNT 3.07 M/UL (4.70-6.10); WHITE BLOOD COUNT 12.9 K/UL (4.8-10.8)
[2020-01-04 06:39] LABS: ALANINE AMINOTRANSFERASE 29 U/L (12-78); ALBUMIN 0.6 G/DL (3.4-5.0); ALKALINE PHOSPHATASE 69 U/L (46-116); ANION GAP 17 mmol/L (5-15); ASPARTATE AMINO TRANSFERASE 31 U/L (15-37); BILIRUBIN,TOTAL 0.3 MG/DL (0.2-1.0); BLOOD UREA NITROGEN 160 mg/dL (7-18); CALCIUM 7.2 MG/DL (8.5-10.1); CARBON DIOXIDE 15 MMOL/L (21-32); CHLORIDE 109 MMOL/L (98-107); CREATININE 4.5 MG/DL (0.55-1.30); POTASSIUM 3.4 MMOL/L (3.5-5.1); SODIUM 141 MMOL/L (136-145)
[2020-01-04 08:00] VITALS: BP 117/84
--- NOTE | 2020-01-04 08:51 | Pulmonology Progress Note ---
Subjective ROS Limited/Unobtainable: Yes Constitutional: Denies: fever Gastrointestinal/Abdominal: Reports: diarrhea Allergies: Coded Allergies: No Known Allergies (Unverified , 10/07/19) Subjective care noted on vent anemia noted oral bleeding now better with mouth guard renal function poor hematuria Objective Last 24 Hour Vital Signs Date Time Temp Pulse Resp B/P (MAP) Pulse Ox O2 Delivery O2 Flow Rate FiO2 01/04/20 07:10 79 25 40 01/04/20 04:00 Mechanical Ventilator 5.0 01/04/20 04:00 78 01/04/20 04:00 95.7 78 24 119/75 (90) 100 01/04/20 04:00 5.0 40 01/04/20 03:13 63 25 40 01/04/20 00:00 95.7 79 24 149/74 (99) 100 01/04/20 00:00 5.0 40 01/04/20 00:00 Mechanical Ventilator 5.0 01/04/20 00:00 81 01/03/20 23:22 84 25 40 01/03/20 20:00 80 01/03/20 20:00 98.5 85 25 148/80 (102) 100 01/03/20 20:00 5.0 40 01/03/20 20:00 Mechanical Ventilator 5.0 01/03/20 19:23 66 24 40 01/03/20 17:31 80 25 100 01/03/20 16:08 Mechanical Ventilator 5.0 01/03/20 16:06 5.0 40 01/03/20 16:05 96.0 76 20 120/72 (88) 100 01/03/20 16:00 73 01/03/20 15:42 76 25 40 01/03/20 12:00 79 01/03/20 12:00 Mechanical Ventilator 5.0 01/03/20 12:00 5.0 40 01/03/20 12:00 96.0 79 20 139/68 (91) 100 01/03/20 11:07 82 26 40 Intake and Output 01/03/20 01/04/20 19:00 07:00 Intake Total 950 ml 1600 ml Output Total 700 ml 650 ml Balance 250 ml 950 ml Intake Free Water 100 ml IV Total 450 ml 1500 ml Blood Product 500 ml Output Urine Total 600 ml 600 ml Stool Total 100 ml 50 ml Objective WDWN trach clear breath sounds bilaterally without rhonchi or wheeze [id number] without MRG NABS nontender no HSM no CCE poor LOC Laboratory Tests 01/04/20 05:00: White Blood Count 12.9H, Red Blood Count 3.07L, Hemoglobin 9.1#L, Hematocrit 25.7#L, Mean Corpuscular Volume 84, Mean Corpuscular Hemoglobin 29.7, Mean Corpuscular Hemoglobin Concent 35.6, Red Cell Distribution Width 13.0, Platelet Count 20L, Mean Platelet Volume 10.9H, Neutrophils (%) (Auto) , Lymphocytes (%) (Auto) , Monocytes (%) (Auto) , Eosinophils (%) (Auto) , Basophils (%) (Auto) , Differential Total Cells Counted 100, Neutrophils % (Manual) 82H, Lymphocytes % (Manual) 9L, Monocytes % (Manual) 5, Eosinophils % (Manual) 4H, Basophils % ( Manual) 0, Band Neutrophils 0, Platelet Estimate DecreasedL, Platelet Morphology Normal, Hypochromasia 2+, Anisocytosis 1+, Sodium Level 141, Potassium Level 3.4L, Chloride Level 109H, Carbon Dioxide Level 15L, Anion Gap 17H, Blood Urea Nitrogen 160H, Creatinine 4.5H, Estimat Glomerular Filtration Rate 16.7, Glucose Level 141#H, Calcium Level 7.2L, Total Bilirubin 0.3, Aspartate Amino Transf (AST/SGOT) 31, Alanine Aminotransferase (ALT/SGPT) 29, Alkaline Phosphatase 69, Total Protein 4.5L, Albumin 0.6L, Globulin 3.9 Current Medications Medications (Trade) Dose Ordered Sig/[place] Route PRN Reason Start Time Stop Time Status Last Admin Dose Admin Acetaminophen (Tylenol) 650 mg Q4H PRN GT Mild Pain (Pain Scale 1-3) 12/31/19 07:45 01/30/20 07:44 Acetaminophen (Tylenol) 650 mg Q4H PRN GT Temp >100.5 12/31/19 07:45 01/30/20 07:44 Al Hydroxide/Mg Hydroxide (Mylanta) 30 ml QIDPRN PRN GT stomach upset 12/31/19 08:00 01/30/20 07:59 Albuterol Sulfate (Proventil) 2.5 mg Q6H PRN HHN Shortness of Breath 12/31/19 07:45 01/05/20 07:44 Artificial Tears (Akwa-Tears) 1 drop BID BOTH EYES 12/31/19 11:00 01/30/20 10:59 01/03/20 17:45 Ascorbic Acid (Vitamin C) 500 mg DAILY GT 12/31/19 09:00 01/30/20 08:59 01/02/20 08:42 Atorvastatin Calcium (Lipitor) 80 mg BEDTIME GT 12/31/19 21:00 03/30/20 20:59 01/03/20 21:09 Chlorhexidine Gluconate (Sheela-Hex 2%) 1 applic DAILY@1999 TOPIC 01/02/20 20:00 04/01/20 19:59 01/03/20 21:09 Dextrose (Dextrose 50%) 25 ml Q30M PRN IV Hypoglycemia 12/31/19 08:45 01/30/20 08:37 12/31/19 18:56 Dextrose (Dextrose 50%) 50 ml Q30M PRN IV hypoglycemia 12/31/19 08:45 03/30/20 08:44 01/01/20 13:05 Docusate Sodium (Colace) 100 mg DAILY GT 12/31/19 09:00 01/30/20 08:59 01/02/20 08:42 Ferrous Sulfate (Feosol) 325 mg DAILY GT 12/31/19 09:00 03/30/20 08:59 01/02/20 08:42 Insulin Aspart (NovoLOG) No Dose Q6HR SUBQ 12/31/19 12:00 03/30/20 11:59 01/03/20 05:54 Insulin Detemir (Levemir) 25 units Q12HR SUBQ 12/31/19 10:00 03/30/20 09:59 01/03/20 21:10 Levofloxacin (Levaquin) 500 mg Q48H ORAL 01/03/20 12:00 01/10/20 11:59 01/03/20 13:00 Lorazepam (Ativan 2mg/ml 1ml) 1 mg Q2H PRN IV For Anxiety 01/03/20 18:00 01/10/20 17:59 01/03/20 17:57 Magnesium Hydroxide (Mom) 30 ml DAILY GT 12/31/19 09:00 01/30/20 08:59 01/02/20 08:42 Meropenem 500 mg/ Sodium Chloride 55 ml @ 110 mls/hr Q24H IVPB 01/03/20 11:00 01/08/20 10:59 01/03/20 13:00 Pantoprazole (Protonix) 40 mg Q12H IVP 01/02/20 21:00 02/01/20 20:59 01/03/20 21:09 Potassium Chloride 20 meq/ Dextrose/Sodium Chloride 1,010 ml @ 150 mls/hr Q6H44M IV 01/03/20 16:00 02/02/20 15:59 01/04/20 04:51 Sodium Hypochlorite (Dakin's Half Strength) 1 applic DAILY TOPIC 01/01/20 09:00 01/31/20 08:59 01/03/20 09:44 Zinc Sulfate (Zinc Sulfate) 220 mg DAILY GT 12/31/19 09:00 03/30/20 08:59 01/02/20 08:42 Assessment/Plan Assessment/Plan IMPRESSION chronic respiratory failure Acute on chronic renal failure elevated K anemia GIB leukocytosis possible sepsis oral bleeding PLAN transfusion completed uro IV hydration iv antibiotics ID , GI and renal vent hold feeds snf meds d/w family as to advance directives- per , still wants full code prognosis very poor impression, plan, and exam edited and reviewed in detail care discussed with Lorenzo Chase MD January 04, 2020 08:51
[2020-01-04] MEDS: Levemir Flexpen SUBQ SCH ×2 (09:00→21:00)
--- NOTE | 2020-01-04 09:10 | Hematology/Onc Progress Note ---
Assessment/Plan Assessment/Plan Assessment and recs # Thrombocytopenia - potential causes multifactorial, evaluate liver and viral etiologies to begin, also could be related to underlying medications patient has received. May be due to DIC in this case, or consumption --> Hep panel and HIV negative --> US abd to evaluate for cirrhosis and hsm pending --> Peripheral smear ordered to evaluate for blasts /schistocytes --> abx and other meds have been reviewed --> ok for ppx if plt >50k w/ either heparin or lovenox --> Transfuse if Plt < 20k and fever, or if Plt < 10k without fever --> plt trend 41-->32-->21k-->20 --> for sepsis is on abx # Anemia due to Upper GI bleed, hematuria --> no evidence of hemolysis is noted --> smear noted --> anemia panel reviewed, ferritin high --> no iron or epo needed --> po iron ok --> for hematuria as per urology --> Pending endoscopy when clear from covid19 --> hgb trend: 9.1 --> prbc: 2 units 01/02, # Hyperkalemia --> kayxelate as needed # ARF (acute renal failure) --> per renal # Hyponatremia # Gram negative pneumonia # Ventilator dependent respiratory failure # intracranial hemorrhage # paraplegia # Dysphagia with gtube The timing of this note does not necessarily reflect the time of the patient was seen. Greatly appreciate consultation. Subjective Allergies: Coded Allergies: No Known Allergies (Unverified , 10/07/19) Subjective 01/03 s/p rbc x2, hgb improved to 9.1, us abd reviewed, hematuria+ Objective Objective Current Medications Medications (Trade) Dose Ordered Sig/[place] Route PRN Reason Start Time Stop Time Status Last Admin Dose Admin Acetaminophen (Tylenol) 650 mg Q4H PRN GT Mild Pain (Pain Scale 1-3) 12/31/19 07:45 01/30/20 07:44 Acetaminophen (Tylenol) 650 mg Q4H PRN GT Temp >100.5 12/31/19 07:45 01/30/20 07:44 Al Hydroxide/Mg Hydroxide (Mylanta) 30 ml QIDPRN PRN GT stomach upset 12/31/19 08:00 6/18/20 07:59 Albuterol Sulfate (Proventil) 2.5 mg Q6H PRN HHN Shortness of Breath 12/31/19 07:45 01/05/20 07:44 Artificial Tears (Akwa-Tears) 1 drop BID BOTH EYES 12/31/19 11:00 01/30/20 10:59 01/03/20 17:45 Ascorbic Acid (Vitamin C) 500 mg DAILY GT 12/31/19 09:00 01/30/20 08:59 01/02/20 08:42 Atorvastatin Calcium (Lipitor) 80 mg BEDTIME GT 12/31/19 21:00 03/30/20 20:59 01/03/20 21:09 Chlorhexidine Gluconate (Sheela-Hex 2%) 1 applic DAILY@1999 TOPIC 01/02/20 20:00 04/01/20 19:59 01/03/20 21:09 Dextrose (Dextrose 50%) 25 ml Q30M PRN IV Hypoglycemia 12/31/19 08:45 01/30/20 08:37 12/31/19 18:56 Dextrose (Dextrose 50%) 50 ml Q30M PRN IV hypoglycemia 12/31/19 08:45 03/30/20 08:44 01/01/20 13:05 Docusate Sodium (Colace) 100 mg DAILY GT 12/31/19 09:00 01/30/20 08:59 01/02/20 08:42 Ferrous Sulfate (Feosol) 325 mg DAILY GT 12/31/19 09:00 03/30/20 08:59 01/02/20 08:42 Insulin Aspart (NovoLOG) No Dose Q6HR SUBQ 12/31/19 12:00 03/30/20 11:59 01/03/20 05:54 Insulin Detemir (Levemir) 25 units Q12HR SUBQ 12/31/19 10:00 03/30/20 09:59 01/03/20 21:10 Levofloxacin (Levaquin) 500 mg Q48H ORAL 01/03/20 12:00 01/10/20 11:59 01/03/20 13:00 Lorazepam (Ativan 2mg/ml 1ml) 1 mg Q2H PRN IV For Anxiety 01/03/20 18:00 01/10/20 17:59 01/03/20 17:57 Magnesium Hydroxide (Mom) 30 ml DAILY GT 12/31/19 09:00 01/30/20 08:59 01/02/20 08:42 Meropenem 500 mg/ Sodium Chloride 55 ml @ 110 mls/hr Q24H IVPB 01/03/20 11:00 01/08/20 10:59 01/03/20 13:00 Pantoprazole (Protonix) 40 mg Q12H IVP 01/02/20 21:00 02/01/20 20:59 01/03/20 21:09 Potassium Chloride 20 meq/ Dextrose/Sodium Chloride 1,010 ml @ 150 mls/hr Q6H44M IV 01/03/20 16:00 02/02/20 15:59 01/04/20 04:51 Sodium Hypochlorite (Dakin's Half Strength) 1 applic DAILY TOPIC 01/01/20 09:00 01/31/20 08:59 01/03/20 09:44 Zinc Sulfate (Zinc Sulfate) 220 mg DAILY GT 12/31/19 09:00 03/30/20 08:59 01/02/20 08:42 Last 24 Hour Vital Signs Date Time Temp Pulse Resp B/P (MAP) Pulse Ox O2 Delivery O2 Flow Rate FiO2 01/04/20 07:10 79 25 40 01/04/20 04:00 Mechanical Ventilator 5.0 01/04/20 04:00 78 01/04/20 04:00 95.7 78 24 119/75 (90) 100 01/04/20 04:00 5.0 40 01/04/20 03:13 63 25 40 01/04/20 00:00 95.7 79 24 149/74 (99) 100 01/04/20 00:00 5.0 40 01/04/20 00:00 Mechanical Ventilator 5.0 01/04/20 00:00 81 01/03/20 23:22 84 25 40 01/03/20 20:00 80 01/03/20 20:00 98.5 85 25 148/80 (102) 100 01/03/20 20:00 5.0 40 01/03/20 20:00 Mechanical Ventilator 5.0 01/03/20 19:23 66 24 40 01/03/20 17:31 80 25 100 01/03/20 16:08 Mechanical Ventilator 5.0 01/03/20 16:06 5.0 40 01/03/20 16:05 96.0 76 20 120/72 (88) 100 01/03/20 16:00 73 01/03/20 15:42 76 25 40 01/03/20 12:00 79 01/03/20 12:00 Mechanical Ventilator 5.0 01/03/20 12:00 5.0 40 01/03/20 12:00 96.0 79 20 139/68 (91) 100 01/03/20 11:07 82 26 40 01/03/20 08:00 85 01/03/20 08:00 95.9 82 20 135/74 (94) 100 01/03/20 08:00 5.0 40 01/03/20 08:00 Mechanical Ventilator 5.0 01/03/20 07:23 81 25 40 01/03/20 04:00 Mechanical Ventilator 5.0 01/03/20 04:00 96.2 79 20 136/73 (94) 99 01/03/20 04:00 80 01/03/20 04:00 5.0 40 01/03/20 03:00 75 24 40 01/03/20 00:00 96.2 72 20 123/73 (90) 99 01/03/20 00:00 75 01/03/20 00:00 Mechanical Ventilator 5.0 01/03/20 00:00 5.0 40 01/02/20 22:46 78 24 40 01/02/20 20:00 79 01/02/20 20:00 96.2 81 20 128/71 (90) 100 01/02/20 20:00 5.0 40 01/02/20 20:00 Mechanical Ventilator 5.0 01/02/20 19:08 66 24 40 01/02/20 16:00 Mechanical Ventilator 5.0 01/02/20 16:00 5.0 40 01/02/20 16:00 88 01/02/20 16:00 96.4 85 20 122/66 (84) 100 01/02/20 15:03 86 24 40 01/02/20 12:00 Mechanical Ventilator 5.0 01/02/20 12:00 96.8 85 24 131/70 (90) 100 01/02/20 12:00 5.0 40 01/02/20 11:31 82 01/02/20 10:42 83 24 40 Intake and Output 01/03/20 01/04/20 19:00 07:00 Intake Total 950 ml 1600 ml Output Total 700 ml 650 ml Balance 250 ml 950 ml Intake Free Water 100 ml IV Total 450 ml 1500 ml Blood Product 500 ml Output Urine Total 600 ml 600 ml Stool Total 100 ml 50 ml Labs Test 01/01/20 09:05 01/01/20 15:15 01/02/20 04:00 01/02/20 12:05 White Blood Count 23.2 K/UL (4.8-10.8) 19.1 K/UL (4.8-10.8) Red Blood Count 1.93 M/UL (4.70-6.10) 2.66 M/UL (4.70-6.10) Hemoglobin 5.6 G/DL (14.2-18.0) 8.1 G/DL (14.2-18.0) Hematocrit 16.4 % (42.0-52.0) 22.7 % (42.0-52.0) Mean Corpuscular Volume 85 FL (80-99) 85 FL (80-99) Mean Corpuscular Hemoglobin 29.1 PG (27.0-31.0) 30.6 PG (27.0-31.0) Mean Corpuscular Hemoglobin Concent 34.5 G/DL (32.0-36.0) 35.9 G/DL (32.0-36.0) Red Cell Distribution Width 13.8 % (11.6-14.8) 13.5 % (11.6-14.8) Platelet Count 49 K/UL (150-450) 31 K/UL (150-450) Mean Platelet Volume 12.4 FL (6.5-10.1) 14.7 FL (6.5-10.1) Neutrophils (%) (Auto) % (45.0-75.0) % (45.0-75.0) Lymphocytes (%) (Auto) % (20.0-45.0) % (20.0-45.0) Monocytes (%) (Auto) % (1.0-10.0) % (1.0-10.0) Eosinophils (%) (Auto) % (0.0-3.0) % (0.0-3.0) Basophils (%) (Auto) % (0.0-2.0) % (0.0-2.0) Differential Total Cells Counted 100 100 Neutrophils % (Manual) 82 % (45-75) 77 % (45-75) Lymphocytes % (Manual) 9 % (20-45) 13 % (20-45) Monocytes % (Manual) 8 % (1-10) 6 % (1-10) Eosinophils % (Manual) 1 % (0-3) 4 % (0-3) Basophils % (Manual) 0 % (0-2) 0 % (0-2) Band Neutrophils 0 % (0-8) 0 % (0-8) Platelet Estimate Decreased Decreased Platelet Morphology Normal Normal Hypochromasia 2+ Sodium Level 127 MMOL/L (136-145) 129 MMOL/L (136-145) Potassium Level 4.9 MMOL/L (3.5-5.1) 4.3 MMOL/L (3.5-5.1) Chloride Level 92 MMOL/L (98-107) 94 MMOL/L (98-107) Carbon Dioxide Level 20 MMOL/L (21-32) 19 MMOL/L (21-32) Anion Gap 15 mmol/L (5-15) 16 mmol/L (5-15) Blood Urea Nitrogen 203 mg/dL (7-18) 196 mg/dL (7-18) Creatinine 4.9 MG/DL (0.55-1.30) 5.0 MG/DL (0.55-1.30) Estimat Glomerular Filtration Rate 15.2 mL/min (>60) 14.8 mL/min (>60) Glucose Level 174 MG/DL (74-106) 106 MG/DL (74-106) Calcium Level 8.9 MG/DL (8.5-10.1) 8.8 MG/DL (8.5-10.1) Other Cell Type Pathologist review Anisocytosis 1+ Prothrombin Time 14.3 SEC (9.30-11.50) Prothromb Time International Ratio 1.3 (0.9-1.1) Activated Partial Thromboplast Time 35 SEC (23-33) Uric Acid 8.8 MG/DL (2.6-7.2) Total Bilirubin 0.4 MG/DL (0.2-1.0) Aspartate Amino Transf (AST/SGOT) 36 U/L (15-37) Alanine Aminotransferase (ALT/SGPT) 32 U/L (12-78) Alkaline Phosphatase 91 U/L (46-116) Total Protein 5.0 G/DL (6.4-8.2) Albumin 0.6 G/DL (3.4-5.0) Globulin 4.4 g/dL Albumin/Globulin Ratio 0.1 (1.0-2.7) Reticulocyte Count 0.4 % (0.5-2.0) Fibrinogen 441 mg/dL (200-400) Iron Level 122 ug/dL (50-175) Total Iron Binding Capacity 103 ug/dL (250-450) Percent Iron Saturation 118 % (15-50) Unsaturated Iron Binding -19 ug/dL (112-346) Ferritin 1687 NG/ML (8-388) Lactate Dehydrogenase 196 U/L (81-234) Carcinoembryonic Antigen 3.1 ng/mL (0.0-4.7) Vitamin B12 Level > 2000 PG/ML (193-986) Hepatitis A IgM Antibody Negative (Negative) Hepatitis B Surface Antigen Negative (Negative) Hepatitis B Core IgM Antibody Negative (Negative) Hepatitis C Antibody <0.1 s/co ratio HIV (1&2) Antibody Rapid Negative (NEGATIVE) Test 01/03/20 04:00 01/04/20 05:00 White Blood Count 13.3 K/UL (4.8-10.8) 12.9 K/UL (4.8-10.8) Red Blood Count 2.09 M/UL (4.70-6.10) 3.07 M/UL (4.70-6.10) Hemoglobin 6.2 G/DL (14.2-18.0) 9.1 G/DL (14.2-18.0) Hematocrit 17.9 % (42.0-52.0) 25.7 % (42.0-52.0) Mean Corpuscular Volume 86 FL (80-99) 84 FL (80-99) Mean Corpuscular Hemoglobin 29.7 PG (27.0-31.0) 29.7 PG (27.0-31.0) Mean Corpuscular Hemoglobin Concent 34.7 G/DL (32.0-36.0) 35.6 G/DL (32.0-36.0) Red Cell Distribution Width 13.4 % (11.6-14.8) 13.0 % (11.6-14.8) Platelet Count 21 K/UL (150-450) 20 K/UL (150-450) Mean Platelet Volume 16.0 FL (6.5-10.1) 10.9 FL (6.5-10.1) Neutrophils (%) (Auto) % (45.0-75.0) % (45.0-75.0) Lymphocytes (%) (Auto) % (20.0-45.0) % (20.0-45.0) Monocytes (%) (Auto) % (1.0-10.0) % (1.0-10.0) Eosinophils (%) (Auto) % (0.0-3.0) % (0.0-3.0) Basophils (%) (Auto) % (0.0-2.0) % (0.0-2.0) Differential Total Cells Counted 100 100 Neutrophils % (Manual) 80 % (45-75) 82 % (45-75) Lymphocytes % (Manual) 13 % (20-45) 9 % (20-45) Monocytes % (Manual) 4 % (1-10) 5 % (1-10) Eosinophils % (Manual) 2 % (0-3) 4 % (0-3) Basophils % (Manual) 1 % (0-2) 0 % (0-2) Band Neutrophils 0 % (0-8) 0 % (0-8) Platelet Estimate Decreased Decreased Platelet Morphology Normal Normal Hypochromasia 4+ 2+ Anisocytosis 1+ 1+ Spherocytes 2+ Sodium Level 136 MMOL/L (136-145) 141 MMOL/L (136-145) Potassium Level 2.9 MMOL/L (3.5-5.1) 3.4 MMOL/L (3.5-5.1) Chloride Level 102 MMOL/L (98-107) 109 MMOL/L (98-107) Carbon Dioxide Level 16 MMOL/L (21-32) 15 MMOL/L (21-32) Anion Gap 19 mmol/L (5-15) 17 mmol/L (5-15) Blood Urea Nitrogen 179 mg/dL (7-18) 160 mg/dL (7-18) Creatinine 4.5 MG/DL (0.55-1.30) 4.5 MG/DL (0.55-1.30) Estimat Glomerular Filtration Rate 16.7 mL/min (>60) 16.7 mL/min (>60) Glucose Level 285 MG/DL (74-106) 141 MG/DL (74-106) Calcium Level 7.6 MG/DL (8.5-10.1) 7.2 MG/DL (8.5-10.1) Total Bilirubin 0.3 MG/DL (0.2-1.0) Aspartate Amino Transf (AST/SGOT) 31 U/L (15-37) Alanine Aminotransferase (ALT/SGPT) 29 U/L (12-78) Alkaline Phosphatase 69 U/L (46-116) Total Protein 4.5 G/DL (6.4-8.2) Albumin 0.6 G/DL (3.4-5.0) Globulin 3.9 g/dL Height (Feet): 5 Height (Inches): 5.00 Weight (Pounds): 158 Objective Physical Exam: Vitals: reviewed General: NAD HEENT: nc, at, mouth guard+ Neck: supple++trach Chest: clear breath sounds bilaterally Cardiovascular: RRR, no s3, s4 Abdomen: soft, nontender, nd ++gtube Extremities: no cce, normal range of motion, ++ Spasticity in the left upper extremity. Flaccid on the right. Neuro: nonfocal : babb+, hematuria+ Wilmer Turner MD January 04, 2020 09:10
[2020-01-04] MEDS ORDERED: NS 275ml ONE (10:23)
[2020-01-04] MEDS ORDERED: Tubing IV Secondary IV ONE (10:23)
[2020-01-04] MEDS ORDERED: NS Irrig 1000ml ONE (10:23)
[2020-01-04] MEDS ORDERED: D5NS 1000ml IV ONE (10:23)
[2020-01-04] MEDS ORDERED: Tubing Blood Filter IV ONE (10:23)
[2020-01-04] MEDS: Pantoprazole Inj IVP SCH ×2 (10:33→21:01)
[2020-01-04] MEDS: Zinc Sulfate 220mg GT SCH (10:34)
[2020-01-04] MEDS: Ascorbic Acid 500mg tab GT SCH (10:34)
[2020-01-04] MEDS: Docusate 100mg/10ml Liq GT SCH (10:34)
[2020-01-04] MEDS: Ferrous Sulfate 300 MG/5 ML UDC GT SCH (10:34)
[2020-01-04] MEDS: Milk of Magnesia 30ml Ud GT SCH (10:34)
[2020-01-04] MEDS: Dextrose 50% 25ml Syringe IV PRN ×3 (10:44→21:25)
--- NOTE | 2020-01-04 10:44 | Surgery Progress Note ---
Surgery Progress Note Subjective Procedure Performed right femoral central venous catheter insertion Additional Comments no acute events labs reviewed exam stable comfortable Objective Last 24 Hour Vital Signs Date Time Temp Pulse Resp B/P (MAP) Pulse Ox O2 Delivery O2 Flow Rate FiO2 01/04/20 08:00 78 01/04/20 07:10 79 25 40 01/04/20 04:00 Mechanical Ventilator 5.0 01/04/20 04:00 78 01/04/20 04:00 95.7 78 24 119/75 (90) 100 01/04/20 04:00 5.0 40 01/04/20 03:13 63 25 40 01/04/20 00:00 95.7 79 24 149/74 (99) 100 01/04/20 00:00 5.0 40 01/04/20 00:00 Mechanical Ventilator 5.0 01/04/20 00:00 81 01/03/20 23:22 84 25 40 01/03/20 20:00 80 01/03/20 20:00 98.5 85 25 148/80 (102) 100 01/03/20 20:00 5.0 40 01/03/20 20:00 Mechanical Ventilator 5.0 01/03/20 19:23 66 24 40 01/03/20 17:31 80 25 100 01/03/20 16:08 Mechanical Ventilator 5.0 01/03/20 16:06 5.0 40 01/03/20 16:05 96.0 76 20 120/72 (88) 100 01/03/20 16:00 73 01/03/20 15:42 76 25 40 01/03/20 12:00 79 01/03/20 12:00 Mechanical Ventilator 5.0 01/03/20 12:00 5.0 40 01/03/20 12:00 96.0 79 20 139/68 (91) 100 01/03/20 11:07 82 26 40 I&O Intake and Output 01/03/20 01/04/20 19:00 07:00 Intake Total 950 ml 1600 ml Output Total 700 ml 650 ml Balance 250 ml 950 ml Intake Free Water 100 ml IV Total 450 ml 1500 ml Blood Product 500 ml Output Urine Total 600 ml 600 ml Stool Total 100 ml 50 ml Dressing: other Wound: other Drains: other Cardiovascular: RSR Respiratory: decreased breath sounds Abdomen: soft, non-tender, present bowel sounds Extremities: no cyanosis Laboratory Tests Test 5/23/20 05:00 White Blood Count 12.9 K/UL (4.8-10.8) H Red Blood Count 3.07 M/UL (4.70-6.10) L Hemoglobin 9.1 G/DL (14.2-18.0) #L Hematocrit 25.7 % (42.0-52.0) #L Mean Corpuscular Volume 84 FL (80-99) Mean Corpuscular Hemoglobin 29.7 PG (27.0-31.0) Mean Corpuscular Hemoglobin Concent 35.6 G/DL (32.0-36.0) Red Cell Distribution Width 13.0 % (11.6-14.8) Platelet Count 20 K/UL (150-450) L Mean Platelet Volume 10.9 FL (6.5-10.1) H Neutrophils (%) (Auto) % (45.0-75.0) Lymphocytes (%) (Auto) % (20.0-45.0) Monocytes (%) (Auto) % (1.0-10.0) Eosinophils (%) (Auto) % (0.0-3.0) Basophils (%) (Auto) % (0.0-2.0) Differential Total Cells Counted 100 Neutrophils % (Manual) 82 % (45-75) H Lymphocytes % (Manual) 9 % (20-45) L Monocytes % (Manual) 5 % (1-10) Eosinophils % (Manual) 4 % (0-3) H Basophils % (Manual) 0 % (0-2) Band Neutrophils 0 % (0-8) Platelet Estimate Decreased L Platelet Morphology Normal Hypochromasia 2+ Anisocytosis 1+ Sodium Level 141 MMOL/L (136-145) Potassium Level 3.4 MMOL/L (3.5-5.1) L Chloride Level 109 MMOL/L (98-107) H Carbon Dioxide Level 15 MMOL/L (21-32) L Anion Gap 17 mmol/L (5-15) H Blood Urea Nitrogen 160 mg/dL (7-18) H Creatinine 4.5 MG/DL (0.55-1.30) H Estimat Glomerular Filtration Rate 16.7 mL/min (>60) Glucose Level 141 MG/DL (74-106) #H Calcium Level 7.2 MG/DL (8.5-10.1) L Total Bilirubin 0.3 MG/DL (0.2-1.0) Aspartate Amino Transf (AST/SGOT) 31 U/L (15-37) Alanine Aminotransferase (ALT/SGPT) 29 U/L (12-78) Alkaline Phosphatase 69 U/L (46-116) Total Protein 4.5 G/DL (6.4-8.2) L Albumin 0.6 G/DL (3.4-5.0) L Globulin 3.9 g/dL Plan Problems: (1) Hyponatremia (2) ARF (acute renal failure) (3) Hyperkalemia (4) Pressure sore on sacrum Assessment & Plan: Pt presented on admission with Sacral Pressure injury and Necrosis Both Both R lower ext, R foot and L foot. Generalized edema noted. Both upper ext noted to have multiple serous blisters ,some of which are weeping serous exudate. Full thickness Sacral Pressure Injury with undermined Borders. Base of wound is 75% loose necrotic tissue,25% bree. Bone exposure at base of wound. Area of necrosis noted at distal aspect of wound in space between wound and anus.Edges are macerated. Wound is malodorous.(L)9.5cm x (W)9.2cm x (D)2.9cm,undermining clockwise 10-3 by 3.8cm @12 o'clock. Scattered areas of hyperpigmentation noted to R and L clefts of buttocks. Unable to determine exudate as pt is continuously oozing large amt of semi soft black stool and leaking into wound because of close proximity to his rectum. At upper, R gluteal cheek is additional Pressure Injury with small amt Biofilm at base of wound. Edges are pink and adherent to base of wound. No exudate noted.(L)3cm x (W)2.6cm. Medially to distal Tibia,and extending to R foot is necrotic and malodorous.Wound is partially opened at posterior R tibia but is dry . L foot is necrotic and malodorous. No exudate noted. Tx.Plan: Cleanse Sacral wound with Dakin's 0.25% jose.. Loosely Pack wound with Dakin's moistened Kerlix.Apply Moisture Barrier Paste periwound.Cover with Optifoam drsg.Change Daily and PRN. Cleanse R lower ext and R foot with Dakin's 0.25% Jose. Cover wounds with ABD Pads.Wrap with Kerlix Daily and prn. Cleanse L foot Wounds with Dakin's 0.25% Jose. Cover wounds with ABD Pads and wrap with Kerlix Daily and prn. (5) Upper GI bleed Assessment & Plan: Patient with sepsis, abnormal labs, GI bleed, pending COVID eval. Labs noted. Exam reviewed. Chest x-ray noted as below. Discussed with GI. Plan for endoscopy once COVID status evaluated. Trend hemoglobin for now transfuse PRN. G-tube is functional and okay for medications and will plan tube feeds accordingly. No acute surgical intervention as patient is actively bleeding. Proton pump inhibitor recommended and Rx as written. Will follow with recommendations thank you for let me participate in patient's care There is a tracheostomy in place. Vascularity is normal. Hazy densities in the lung bases may be layering effusions. Cardiac and mediastinal silhouette are within normal limits. The bony thorax appear unremarkable. IMPRESSION: Bibasilar hazy densities perhaps layering effusions. Javid Singh January 04, 2020 10:44
[2020-01-04] MEDS: Meropenem 500 MG in NS 55 ML IVPB SCH (11:16)
[2020-01-04] MEDS: Dakin's 0.25% (Half Strength) 16oz TOPIC SCH (11:18)
[2020-01-04 12:00] VITALS: BP 109/63
[2020-01-04 16:00] VITALS: BP 119/61
--- NOTE | 2020-01-04 18:58 | General Progress Note ---
Assessment/Plan Assessment/Plan: Assessment/Plan: sepsis anemia GIB severe thrombocytopenia Renal failure DM dysphagia with GT Recommendations - Consider platelet transfusion - d/w heme - monitor CBC closely - EGD on hold - not a candidate due to severe thrombocytopenia - d/c vitamin C - d/c po FeSO4 - guarded Subjective Allergies: Coded Allergies: No Known Allergies (Unverified , 10/07/19) Subjective Above noted d/w RN patient NPO H&H higher after transfusion Objective Last 24 Hour Vital Signs Date Time Temp Pulse Resp B/P (MAP) Pulse Ox O2 Delivery O2 Flow Rate FiO2 01/04/20 16:00 98.2 86 20 119/61 (80) 100 01/04/20 15:10 87 26 40 01/04/20 12:00 5.0 40 01/04/20 12:00 Mechanical Ventilator 5.0 01/04/20 12:00 98.6 88 20 109/63 (78) 100 01/04/20 12:00 87 01/04/20 11:05 89 24 40 01/04/20 08:00 Mechanical Ventilator 5.0 01/04/20 08:00 98.2 84 19 117/84 (95) 98 01/04/20 08:00 5.0 40 01/04/20 08:00 78 01/04/20 07:10 79 25 40 01/04/20 04:00 Mechanical Ventilator 5.0 01/04/20 04:00 78 01/04/20 04:00 95.7 78 24 119/75 (90) 100 01/04/20 04:00 5.0 40 01/04/20 03:13 63 25 40 01/04/20 00:00 95.7 79 24 149/74 (99) 100 01/04/20 00:00 5.0 40 01/04/20 00:00 Mechanical Ventilator 5.0 01/04/20 00:00 81 01/03/20 23:22 84 25 40 01/03/20 20:00 80 01/03/20 20:00 98.5 85 25 148/80 (102) 100 01/03/20 20:00 5.0 40 01/03/20 20:00 Mechanical Ventilator 5.0 01/03/20 19:23 66 24 40 Intake and Output 01/03/20 01/04/20 19:00 07:00 Intake Total 950 ml 1600 ml Output Total 700 ml 650 ml Balance 250 ml 950 ml Intake Free Water 100 ml IV Total 450 ml 1500 ml Blood Product 500 ml Output Urine Total 600 ml 600 ml Stool Total 100 ml 50 ml Laboratory Tests 01/04/20 05:00: White Blood Count 12.9H, Red Blood Count 3.07L, Hemoglobin 9.1#L, Hematocrit 25.7#L, Mean Corpuscular Volume 84, Mean Corpuscular Hemoglobin 29.7, Mean Corpuscular Hemoglobin Concent 35.6, Red Cell Distribution Width 13.0, Platelet Count 20L, Mean Platelet Volume 10.9H, Neutrophils (%) (Auto) , Lymphocytes (%) (Auto) , Monocytes (%) (Auto) , Eosinophils (%) (Auto) , Basophils (%) (Auto) , Differential Total Cells Counted 100, Neutrophils % (Manual) 82H, Lymphocytes % (Manual) 9L, Monocytes % (Manual) 5, Eosinophils % (Manual) 4H, Basophils % ( Manual) 0, Band Neutrophils 0, Platelet Estimate DecreasedL, Platelet Morphology Normal, Hypochromasia 2+, Anisocytosis 1+, Sodium Level 141, Potassium Level 3.4L, Chloride Level 109H, Carbon Dioxide Level 15L, Anion Gap 17H, Blood Urea Nitrogen 160H, Creatinine 4.5H, Estimat Glomerular Filtration Rate 16.7, Glucose Level 141#H, Calcium Level 7.2L, Total Bilirubin 0.3, Aspartate Amino Transf (AST/SGOT) 31, Alanine Aminotransferase (ALT/SGPT) 29, Alkaline Phosphatase 69, Total Protein 4.5L, Albumin 0.6L, Globulin 3.9 Height (Feet): 5 Height (Inches): 5.00 Weight (Pounds): 158 Objective Debilitated Neck C-spine collar coarse BS RR abd soft Rah Diaz MD January 04, 2020 18:58
--- NOTE | 2020-01-04 19:56 | Nephrology Progress Note ---
Assessment/Plan Problem List: (1) Respiratory failure (2) ARF (acute renal failure) (3) Hyponatremia (4) Hyperkalemia (5) Upper GI bleed (6) Pressure sore on sacrum Plan K low to correct, continue iv fluids,BUN/creatinine 70/.91 11/2019, bicitra for acidosis Subjective ROS Limited/Unobtainable: Yes Constitutional: Reports: no symptoms Objective Objective Last 24 Hour Vital Signs Date Time Temp Pulse Resp B/P (MAP) Pulse Ox O2 Delivery O2 Flow Rate FiO2 01/04/20 16:00 Mechanical Ventilator 5.0 01/04/20 16:00 86 01/04/20 16:00 98.2 86 20 119/61 (80) 100 01/04/20 16:00 5.0 40 01/04/20 15:10 87 26 40 01/04/20 12:00 5.0 40 01/04/20 12:00 Mechanical Ventilator 5.0 01/04/20 12:00 98.6 88 20 109/63 (78) 100 01/04/20 12:00 87 01/04/20 11:05 89 24 40 01/04/20 08:00 Mechanical Ventilator 5.0 01/04/20 08:00 98.2 84 19 117/84 (95) 98 01/04/20 08:00 5.0 40 01/04/20 08:00 78 01/04/20 07:10 79 25 40 01/04/20 04:00 Mechanical Ventilator 5.0 01/04/20 04:00 78 01/04/20 04:00 95.7 78 24 119/75 (90) 100 01/04/20 04:00 5.0 40 01/04/20 03:13 63 25 40 01/04/20 00:00 95.7 79 24 149/74 (99) 100 01/04/20 00:00 5.0 40 01/04/20 00:00 Mechanical Ventilator 5.0 01/04/20 00:00 81 01/03/20 23:22 84 25 40 01/03/20 20:00 80 01/03/20 20:00 98.5 85 25 148/80 (102) 100 01/03/20 20:00 5.0 40 01/03/20 20:00 Mechanical Ventilator 5.0 Intake and Output 01/03/20 01/04/20 19:00 07:00 Intake Total 950 ml 1600 ml Output Total 700 ml 650 ml Balance 250 ml 950 ml Intake Free Water 100 ml IV Total 450 ml 1500 ml Blood Product 500 ml Output Urine Total 600 ml 600 ml Stool Total 100 ml 50 ml Laboratory Tests 01/04/20 05:00: White Blood Count 12.9H, Red Blood Count 3.07L, Hemoglobin 9.1#L, Hematocrit 25.7#L, Mean Corpuscular Volume 84, Mean Corpuscular Hemoglobin 29.7, Mean Corpuscular Hemoglobin Concent 35.6, Red Cell Distribution Width 13.0, Platelet Count 20L, Mean Platelet Volume 10.9H, Neutrophils (%) (Auto) , Lymphocytes (%) (Auto) , Monocytes (%) (Auto) , Eosinophils (%) (Auto) , Basophils (%) (Auto) , Differential Total Cells Counted 100, Neutrophils % (Manual) 82H, Lymphocytes % (Manual) 9L, Monocytes % (Manual) 5, Eosinophils % (Manual) 4H, Basophils % ( Manual) 0, Band Neutrophils 0, Platelet Estimate DecreasedL, Platelet Morphology Normal, Hypochromasia 2+, Anisocytosis 1+, Sodium Level 141, Potassium Level 3.4L, Chloride Level 109H, Carbon Dioxide Level 15L, Anion Gap 17H, Blood Urea Nitrogen 160H, Creatinine 4.5H, Estimat Glomerular Filtration Rate 16.7, Glucose Level 141#H, Calcium Level 7.2L, Total Bilirubin 0.3, Aspartate Amino Transf (AST/SGOT) 31, Alanine Aminotransferase (ALT/SGPT) 29, Alkaline Phosphatase 69, Total Protein 4.5L, Albumin 0.6L, Globulin 3.9 Height (Feet): 5 Height (Inches): 5.00 Weight (Pounds): 158 General Appearance: lethargic, cachetic EENT: other - on vent Cardiovascular: regular rhythm Respiratory/Chest: crackles/rales Abdomen: soft Extremities: no edema Neurologic: unresponsive Martin Yee MD January 04, 2020 19:56
[2020-01-04 20:00] VITALS: BP 125/75
[2020-01-04] MEDS: Dyna-Hex 2% Top Sol 2oz TOPIC SCH (20:43)
[2020-01-04] MEDS: Atorvastatin 80mg tab GT SCH (20:44)
[2020-01-04] MEDS: Sodium Citrate 30ml GT SCH (21:00)
[2020-01-04 21:22] LABS: HEMOGLOBIN 8.8 G/DL (14.2-18.0); MEAN CORPUSCULAR VOLUME 89 FL (80-99); PLATELET COUNT 20 K/UL (150-450); RED BLOOD COUNT 3.02 M/UL (4.70-6.10); RED CELL DISTRIBUTION WIDTH 15.1 % (11.6-14.8); WHITE BLOOD COUNT 13.8 K/UL (4.8-10.8)
[2020-01-05] VITALS (7 sets, daily range): BP systolic 145–155; BP diastolic 65–87
[2020-01-05] MEDS: Insulin NovoLOG Flexpen S/S (Mod) SUBQ SCH ×3 (05:01→18:00)
[2020-01-05 05:35] LABS: HEMOGLOBIN 8.6 G/DL (14.2-18.0); MEAN CORPUSCULAR VOLUME 85 FL (80-99); PLATELET COUNT 61 K/UL (150-450); RED BLOOD COUNT 2.83 M/UL (4.70-6.10); RED CELL DISTRIBUTION WIDTH 13.7 % (11.6-14.8)
[2020-01-05 05:44] LABS: ANION GAP 18 mmol/L (5-15); BLOOD UREA NITROGEN 161 mg/dL (7-18); CALCIUM 8.1 MG/DL (8.5-10.1); CARBON DIOXIDE 15 MMOL/L (21-32); CHLORIDE 111 MMOL/L (98-107); CREATININE 4.8 MG/DL (0.55-1.30); SODIUM 144 MMOL/L (136-145)
[2020-01-05 05:55] LABS: WHITE BLOOD COUNT 27.7 K/UL (4.8-10.8)
--- NOTE | 2020-01-05 08:00 | Pulmonology Progress Note ---
Subjective ROS Limited/Unobtainable: Yes Constitutional: Denies: fever Gastrointestinal/Abdominal: Reports: diarrhea Allergies: Coded Allergies: No Known Allergies (Unverified , 10/07/19) Subjective care noted on vent wbc spike noted oral bleeding controlled renal function poor Objective Last 24 Hour Vital Signs Date Time Temp Pulse Resp B/P (MAP) Pulse Ox O2 Delivery O2 Flow Rate FiO2 01/05/20 04:00 5.0 40 01/05/20 04:00 Mechanical Ventilator 5.0 01/05/20 04:00 98.4 97 22 151/65 (93) 100 01/05/20 03:57 94 01/05/20 03:03 103 14 40 01/05/20 00:00 Mechanical Ventilator 5.0 01/05/20 00:00 98.6 103 24 145/78 (100) 100 01/05/20 00:00 5.0 40 01/04/20 23:55 103 01/04/20 23:01 101 26 40 01/04/20 20:00 5.0 40 01/04/20 20:00 99.0 91 22 125/75 (92) 100 01/04/20 20:00 Mechanical Ventilator 5.0 01/04/20 19:30 95 23 40 01/04/20 19:26 91 01/04/20 16:00 Mechanical Ventilator 5.0 01/04/20 16:00 86 01/04/20 16:00 98.2 86 20 119/61 (80) 100 01/04/20 16:00 5.0 40 01/04/20 15:10 87 26 40 01/04/20 12:00 5.0 40 01/04/20 12:00 Mechanical Ventilator 5.0 01/04/20 12:00 98.6 88 20 109/63 (78) 100 01/04/20 12:00 87 01/04/20 11:05 89 24 40 01/04/20 08:00 Mechanical Ventilator 5.0 01/04/20 08:00 98.2 84 19 117/84 (95) 98 01/04/20 08:00 5.0 40 01/04/20 08:00 78 Intake and Output 01/04/20 01/05/20 19:00 07:00 Intake Total 350 ml 1495 ml Output Total 600 ml 875 ml Balance -250 ml 620 ml Intake Free Water 200 ml IV Total 150 ml 1495 ml Output Urine Total 450 ml 800 ml Stool Total 150 ml 75 ml # Bowel Movements 1 Objective WDWN trach clear breath sounds bilaterally without rhonchi or wheeze [id number] without MRG NABS nontender no HSM no CCE poor LOC Laboratory Tests 01/04/20 21:00: White Blood Count 13.8H, Red Blood Count 3.02L, Hemoglobin 8.8L, Hematocrit 27.0L, Mean Corpuscular Volume 89, Mean Corpuscular Hemoglobin 29.2, Mean Corpuscular Hemoglobin Concent 32.7, Red Cell Distribution Width 15.1H, Platelet Count 20L, Mean Platelet Volume 16.4H, Neutrophils (%) (Auto) , Lymphocytes (%) (Auto) , Monocytes (%) (Auto) , Eosinophils (%) (Auto) , Basophils (%) (Auto) , Differential Total Cells Counted 100, Neutrophils % ( Manual) 87H, Lymphocytes % (Manual) 7L, Monocytes % (Manual) 5, Eosinophils % ( Manual) 1, Basophils % (Manual) 0, Band Neutrophils 0, Platelet Estimate DecreasedL, Platelet Morphology Normal, Anisocytosis 1+ 01/05/20 04:00: White Blood Count 27.7#*H, Red Blood Count 2.83L, Hemoglobin 8.6L, Hematocrit 24.0L, Mean Corpuscular Volume 85, Mean Corpuscular Hemoglobin 30.3, Mean Corpuscular Hemoglobin Concent 35.7, Red Cell Distribution Width 13.7, Platelet Count 61#L, Mean Platelet Volume 8.6, Neutrophils (%) (Auto) , Lymphocytes (%) ( Auto) , Monocytes (%) (Auto) , Eosinophils (%) (Auto) , Basophils (%) (Auto) , Neutrophils % (Manual) [Pending], Lymphocytes % (Manual) [Pending], Platelet Estimate [Pending], Platelet Morphology [Pending], Sodium Level 144, Potassium Level 5.0, Chloride Level 111H, Carbon Dioxide Level 15L, Anion Gap 18H, Blood Urea Nitrogen 161H, Creatinine 4.8H, Estimat Glomerular Filtration Rate 15.5, Glucose Level 205H, Calcium Level 8.1L Current Medications Medications (Trade) Dose Ordered Sig/[place] Route PRN Reason Start Time Stop Time Status Last Admin Dose Admin Acetaminophen (Tylenol) 650 mg Q4H PRN GT Mild Pain (Pain Scale 1-3) 12/31/19 07:45 01/30/20 07:44 Acetaminophen (Tylenol) 650 mg Q4H PRN GT Temp >100.5 12/31/19 07:45 01/30/20 07:44 Al Hydroxide/Mg Hydroxide (Mylanta) 30 ml QIDPRN PRN GT stomach upset 12/31/19 08:00 01/30/20 07:59 Artificial Tears (Akwa-Tears) 1 drop BID BOTH EYES 12/31/19 11:00 01/30/20 10:59 01/04/20 18:24 Atorvastatin Calcium (Lipitor) 80 mg BEDTIME GT 12/31/19 21:00 03/30/20 20:59 01/04/20 20:44 Chlorhexidine Gluconate (Sheela-Hex 2%) 1 applic DAILY@2000 TOPIC 01/02/20 20:00 04/01/20 19:59 01/04/20 20:43 Dextrose (Dextrose 50%) 25 ml Q30M PRN IV Hypoglycemia 12/31/19 08:45 01/30/20 08:37 01/04/20 21:25 Dextrose (Dextrose 50%) 50 ml Q30M PRN IV hypoglycemia 12/31/19 08:45 03/30/20 08:44 01/01/20 13:05 Docusate Sodium (Colace) 100 mg DAILY GT 12/31/19 09:00 01/30/20 08:59 01/04/20 10:34 Insulin Aspart (NovoLOG) No Dose Q6HR SUBQ 12/31/19 12:00 03/30/20 11:59 01/03/20 05:54 Insulin Detemir (Levemir) 25 units Q12HR SUBQ 12/31/19 10:00 03/30/20 09:59 01/03/20 21:10 Levofloxacin (Levaquin) 500 mg Q48H ORAL 01/03/20 12:00 01/10/20 11:59 01/03/20 13:00 Lorazepam (Ativan 2mg/ml 1ml) 1 mg Q2H PRN IV For Anxiety 01/03/20 18:00 01/10/20 17:59 01/03/20 17:57 Magnesium Hydroxide (Mom) 30 ml DAILY GT 12/31/19 09:00 01/30/20 08:59 01/04/20 10:34 Meropenem 500 mg/ Sodium Chloride 55 ml @ 110 mls/hr Q24H IVPB 01/03/20 11:00 01/08/20 10:59 01/04/20 11:16 Pantoprazole (Protonix) 40 mg Q12H IVP 01/02/20 21:00 02/01/20 20:59 01/04/20 21:01 Potassium Chloride 20 meq/ Dextrose/Sodium Chloride 1,010 ml @ 150 mls/hr Q6H44M IV 01/03/20 16:00 02/02/20 15:59 01/05/20 02:04 Sodium Hypochlorite (Dakin's Half Strength) 1 applic DAILY TOPIC 01/01/20 09:00 01/31/20 08:59 01/04/20 11:18 Sodium Citrate (Bicitra) 30 ml TID GT 01/04/20 20:00 02/03/20 19:59 01/04/20 21:00 Zinc Sulfate (Zinc Sulfate) 220 mg DAILY GT 12/31/19 09:00 03/30/20 08:59 01/04/20 10:34 Assessment/Plan Assessment/Plan IMPRESSION chronic respiratory failure Acute on chronic renal failure elevated K anemia GIB leukocytosis possible sepsis oral bleeding PLAN transfusion as needed monitor wbc IV hydration iv antibiotics ID , GI and renal vent as is hold feeds snf meds full code prognosis very poor impression, plan, and exam edited and reviewed in detail care discussed with Lorenzo Chase MD January 05, 2020 08:00
[2020-01-05] MEDS ORDERED: LR 1000ml 1,000 ML IV SCH (09:30)
--- NOTE | 2020-01-05 09:30 | Nephrology Progress Note ---
Assessment/Plan Problem List: (1) Respiratory failure (2) ARF (acute renal failure) (3) Hyponatremia (4) Hyperkalemia (5) Upper GI bleed (6) Pressure sore on sacrum Plan K low to correct, continue iv fluids,BUN/creatinine 70/.91 11/2019, bicitra for acidosis Subjective ROS Limited/Unobtainable: Yes Objective Objective Last 24 Hour Vital Signs Date Time Temp Pulse Resp B/P (MAP) Pulse Ox O2 Delivery O2 Flow Rate FiO2 01/05/20 07:44 95 01/05/20 07:10 95 27 40 01/05/20 04:00 5.0 40 01/05/20 04:00 Mechanical Ventilator 5.0 01/05/20 04:00 98.4 97 22 151/65 (93) 100 01/05/20 03:57 94 01/05/20 03:03 103 14 40 01/05/20 00:00 Mechanical Ventilator 5.0 01/05/20 00:00 98.6 103 24 145/78 (100) 100 01/05/20 00:00 5.0 40 01/04/20 23:55 103 01/04/20 23:01 101 26 40 01/04/20 20:00 5.0 40 01/04/20 20:00 99.0 91 22 125/75 (92) 100 01/04/20 20:00 Mechanical Ventilator 5.0 01/04/20 19:30 95 23 40 01/04/20 19:26 91 01/04/20 16:00 Mechanical Ventilator 5.0 01/04/20 16:00 86 01/04/20 16:00 98.2 86 20 119/61 (80) 100 01/04/20 16:00 5.0 40 01/04/20 15:10 87 26 40 01/04/20 12:00 5.0 40 01/04/20 12:00 Mechanical Ventilator 5.0 01/04/20 12:00 98.6 88 20 109/63 (78) 100 01/04/20 12:00 87 01/04/20 11:05 89 24 40 Intake and Output 01/04/20 01/05/20 19:00 07:00 Intake Total 350 ml 1495 ml Output Total 600 ml 875 ml Balance -250 ml 620 ml Intake Free Water 200 ml IV Total 150 ml 1495 ml Output Urine Total 450 ml 800 ml Stool Total 150 ml 75 ml # Bowel Movements 1 Laboratory Tests 01/04/20 21:00: White Blood Count 13.8H, Red Blood Count 3.02L, Hemoglobin 8.8L, Hematocrit 27.0L, Mean Corpuscular Volume 89, Mean Corpuscular Hemoglobin 29.2, Mean Corpuscular Hemoglobin Concent 32.7, Red Cell Distribution Width 15.1H, Platelet Count 20L, Mean Platelet Volume 16.4H, Neutrophils (%) (Auto) , Lymphocytes (%) (Auto) , Monocytes (%) (Auto) , Eosinophils (%) (Auto) , Basophils (%) (Auto) , Differential Total Cells Counted 100, Neutrophils % ( Manual) 87H, Lymphocytes % (Manual) 7L, Monocytes % (Manual) 5, Eosinophils % ( Manual) 1, Basophils % (Manual) 0, Band Neutrophils 0, Platelet Estimate DecreasedL, Platelet Morphology Normal, Anisocytosis 1+ 01/05/20 04:00: White Blood Count 27.7#*H, Red Blood Count 2.83L, Hemoglobin 8.6L, Hematocrit 24.0L, Mean Corpuscular Volume 85, Mean Corpuscular Hemoglobin 30.3, Mean Corpuscular Hemoglobin Concent 35.7, Red Cell Distribution Width 13.7, Platelet Count 61#L, Mean Platelet Volume 8.6, Neutrophils (%) (Auto) , Lymphocytes (%) ( Auto) , Monocytes (%) (Auto) , Eosinophils (%) (Auto) , Basophils (%) (Auto) , Neutrophils % (Manual) [Pending], Lymphocytes % (Manual) [Pending], Platelet Estimate [Pending], Platelet Morphology [Pending], Sodium Level 144, Potassium Level 5.0, Chloride Level 111H, Carbon Dioxide Level 15L, Anion Gap 18H, Blood Urea Nitrogen 161H, Creatinine 4.8H, Estimat Glomerular Filtration Rate 15.5, Glucose Level 205H, Calcium Level 8.1L Height (Feet): 5 Height (Inches): 5.00 Weight (Pounds): 157 General Appearance: alert, other - on vent Cardiovascular: regular rhythm Respiratory/Chest: rhonchi - bilaterally Abdomen: soft Extremities: no edema Neurologic: unresponsive Martin Yee MD January 05, 2020 09:30
[2020-01-05] MEDS ORDERED: NS 275ml ONE (09:34)
--- NOTE | 2020-01-05 10:36 | Hematology/Onc Progress Note ---
Assessment/Plan Assessment/Plan Assessment and recs # Thrombocytopenia - potential causes multifactorial, evaluate liver and viral etiologies to begin, also could be related to underlying medications patient has received. May be due to DIC in this case, or consumption --> Hep panel and HIV negative --> US abd to evaluate for cirrhosis and hsm --> neg for cirrhosis and hsm --> Peripheral smear ordered to evaluate for blasts /schistocytes --> abx and other meds have been reviewed --> ok for ppx if plt >50k w/ either heparin or lovenox --> Transfuse if Plt < 20k and fever, or if Plt < 10k without fever --> plt trend 41-->32-->21k-->20 -->61k --> plt transfusion 01/04 --> for sepsis is on abx # Anemia due to Upper GI bleed, hematuria --> no evidence of hemolysis is noted --> smear noted --> anemia panel reviewed, ferritin high --> no iron or epo needed --> po iron ok --> for hematuria as per urology --> Pending endoscopy when clear from covid19 --> hgb trend: 9.1 --> prbc: 2 units 01/02, # Hyperkalemia --> kayxelate as needed # ARF (acute renal failure) --> per renal # Hyponatremia # Gram negative pneumonia # Ventilator dependent respiratory failure # intracranial hemorrhage # paraplegia # Dysphagia with gtube The timing of this note does not necessarily reflect the time of the patient was seen. Greatly appreciate consultation. Subjective HEENT: Denies: no symptoms, eye pain, blurred vision, tearing, double vision, ear pain, ear discharge, nose pain, nose congestion, throat pain, throat swelling, mouth pain, mouth swelling, other Allergies: Coded Allergies: No Known Allergies (Unverified , 10/07/19) All Systems: reviewed and negative except above Subjective 01/03 s/p rbc x2, hgb improved to 9.1, us abd reviewed, hematuria+ 01/04 plt are better, got 1 unit pf platets today as well, plt now 61k, less gi bleed overnight, some black tarry stool noted Objective Objective Current Medications Medications (Trade) Dose Ordered Sig/[place] Route PRN Reason Start Time Stop Time Status Last Admin Dose Admin Acetaminophen (Tylenol) 650 mg Q4H PRN GT Mild Pain (Pain Scale 1-3) 12/31/19 07:45 01/30/20 07:44 Acetaminophen (Tylenol) 650 mg Q4H PRN GT Temp >100.5 12/31/19 07:45 01/30/20 07:44 Al Hydroxide/Mg Hydroxide (Mylanta) 30 ml QIDPRN PRN GT stomach upset 12/31/19 08:00 01/30/20 07:59 Artificial Tears (Akwa-Tears) 1 drop BID BOTH EYES 12/31/19 11:00 01/30/20 10:59 01/04/20 18:24 Atorvastatin Calcium (Lipitor) 80 mg BEDTIME GT 12/31/19 21:00 03/30/20 20:59 01/04/20 20:44 Chlorhexidine Gluconate (Sheela-Hex 2%) 1 applic DAILY@2000 TOPIC 01/02/20 20:00 04/01/20 19:59 01/04/20 20:43 Dextrose (Dextrose 50%) 25 ml Q30M PRN IV Hypoglycemia 12/31/19 08:45 01/30/20 08:37 01/04/20 21:25 Dextrose (Dextrose 50%) 50 ml Q30M PRN IV hypoglycemia 12/31/19 08:45 03/30/20 08:44 01/01/20 13:05 Docusate Sodium (Colace) 100 mg DAILY GT 12/31/19 09:00 01/30/20 08:59 01/04/20 10:34 Insulin Aspart (NovoLOG) No Dose Q6HR SUBQ 12/31/19 12:00 03/30/20 11:59 01/03/20 05:54 Insulin Detemir (Levemir) 25 units Q12HR SUBQ 12/31/19 10:00 03/30/20 09:59 01/03/20 21:10 Lactated Ringer's 1,000 ml @ 150 mls/hr Q6H40M IV 01/05/20 09:30 02/04/20 09:29 Levofloxacin (Levaquin) 500 mg Q48H ORAL 01/03/20 12:00 01/10/20 11:59 01/03/20 13:00 Lorazepam (Ativan 2mg/ml 1ml) 1 mg Q2H PRN IV For Anxiety 01/03/20 18:00 01/10/20 17:59 01/03/20 17:57 Magnesium Hydroxide (Mom) 30 ml DAILY GT 12/31/19 09:00 01/30/20 08:59 01/04/20 10:34 Meropenem 500 mg/ Sodium Chloride 55 ml @ 110 mls/hr Q24H IVPB 01/03/20 11:00 01/08/20 10:59 01/04/20 11:16 Pantoprazole (Protonix) 40 mg Q12H IVP 01/02/20 21:00 02/01/20 20:59 01/04/20 21:01 Sodium Hypochlorite (Dakin's Half Strength) 1 applic DAILY TOPIC 01/01/20 09:00 01/31/20 08:59 01/04/20 11:18 Sodium Citrate (Bicitra) 30 ml TID GT 01/04/20 20:00 02/03/20 19:59 01/04/20 21:00 Zinc Sulfate (Zinc Sulfate) 220 mg DAILY GT 12/31/19 09:00 03/30/20 08:59 01/04/20 10:34 Last 24 Hour Vital Signs Date Time Temp Pulse Resp B/P (MAP) Pulse Ox O2 Delivery O2 Flow Rate FiO2 01/05/20 07:44 95 01/05/20 07:10 95 27 40 01/05/20 04:00 5.0 40 01/05/20 04:00 Mechanical Ventilator 5.0 01/05/20 04:00 98.4 97 22 151/65 (93) 100 01/05/20 03:57 94 01/05/20 03:03 103 14 40 01/05/20 00:00 Mechanical Ventilator 5.0 01/05/20 00:00 98.6 103 24 145/78 (100) 100 01/05/20 00:00 5.0 40 01/04/20 23:55 103 01/04/20 23:01 101 26 40 01/04/20 20:00 5.0 40 01/04/20 20:00 99.0 91 22 125/75 (92) 100 01/04/20 20:00 Mechanical Ventilator 5.0 01/04/20 19:30 95 23 40 5/23/20 19:26 91 01/04/20 16:00 Mechanical Ventilator 5.0 01/04/20 16:00 86 01/04/20 16:00 98.2 86 20 119/61 (80) 100 01/04/20 16:00 5.0 40 01/04/20 15:10 87 26 40 01/04/20 12:00 5.0 40 01/04/20 12:00 Mechanical Ventilator 5.0 01/04/20 12:00 98.6 88 20 109/63 (78) 100 01/04/20 12:00 87 01/04/20 11:05 89 24 40 01/04/20 08:00 Mechanical Ventilator 5.0 01/04/20 08:00 98.2 84 19 117/84 (95) 98 01/04/20 08:00 5.0 40 01/04/20 08:00 78 01/04/20 07:10 79 25 40 01/04/20 04:00 Mechanical Ventilator 5.0 01/04/20 04:00 78 01/04/20 04:00 95.7 78 24 119/75 (90) 100 01/04/20 04:00 5.0 40 01/04/20 03:13 63 25 40 01/04/20 00:00 95.7 79 24 149/74 (99) 100 01/04/20 00:00 5.0 40 01/04/20 00:00 Mechanical Ventilator 5.0 01/04/20 00:00 81 01/03/20 23:22 84 25 40 01/03/20 20:00 80 01/03/20 20:00 98.5 85 25 148/80 (102) 100 01/03/20 20:00 5.0 40 01/03/20 20:00 Mechanical Ventilator 5.0 01/03/20 19:23 66 24 40 01/03/20 17:31 80 25 100 01/03/20 16:08 Mechanical Ventilator 5.0 01/03/20 16:06 5.0 40 01/03/20 16:05 96.0 76 20 120/72 (88) 100 01/03/20 16:00 73 01/03/20 15:42 76 25 40 01/03/20 12:00 79 01/03/20 12:00 Mechanical Ventilator 5.0 01/03/20 12:00 5.0 40 01/03/20 12:00 96.0 79 20 139/68 (91) 100 01/03/20 11:07 82 26 40 Intake and Output 01/04/20 01/05/20 19:00 07:00 Intake Total 350 ml 1495 ml Output Total 600 ml 875 ml Balance -250 ml 620 ml Intake Free Water 200 ml IV Total 150 ml 1495 ml Output Urine Total 450 ml 800 ml Stool Total 150 ml 75 ml # Bowel Movements 1 Labs Test 01/02/20 12:05 01/03/20 04:00 01/04/20 05:00 01/04/20 21:00 Reticulocyte Count 0.4 % (0.5-2.0) Fibrinogen 441 mg/dL (200-400) Iron Level 122 ug/dL (50-175) Total Iron Binding Capacity 103 ug/dL (250-450) Percent Iron Saturation 118 % (15-50) Unsaturated Iron Binding -19 ug/dL (112-346) Ferritin 1687 NG/ML (8-388) Lactate Dehydrogenase 196 U/L (81-234) Carcinoembryonic Antigen 3.1 ng/mL (0.0-4.7) Vitamin B12 Level > 2000 PG/ML (193-986) Hepatitis A IgM Antibody Negative (Negative) Hepatitis B Surface Antigen Negative (Negative) Hepatitis B Core IgM Antibody Negative (Negative) Hepatitis C Antibody <0.1 s/co ratio HIV (1&2) Antibody Rapid Negative (NEGATIVE) White Blood Count 13.3 K/UL (4.8-10.8) 12.9 K/UL (4.8-10.8) 13.8 K/UL (4.8-10.8) Red Blood Count 2.09 M/UL (4.70-6.10) 3.07 M/UL (4.70-6.10) 3.02 M/UL (4.70-6.10) Hemoglobin 6.2 G/DL (14.2-18.0) 9.1 G/DL (14.2-18.0) 8.8 G/DL (14.2-18.0) Hematocrit 17.9 % (42.0-52.0) 25.7 % (42.0-52.0) 27.0 % (42.0-52.0) Mean Corpuscular Volume 86 FL (80-99) 84 FL (80-99) 89 FL (80-99) Mean Corpuscular Hemoglobin 29.7 PG (27.0-31.0) 29.7 PG (27.0-31.0) 29.2 PG (27.0-31.0) Mean Corpuscular Hemoglobin Concent 34.7 G/DL (32.0-36.0) 35.6 G/DL (32.0-36.0) 32.7 G/DL (32.0-36.0) Red Cell Distribution Width 13.4 % (11.6-14.8) 13.0 % (11.6-14.8) 15.1 % (11.6-14.8) Platelet Count 21 K/UL (150-450) 20 K/UL (150-450) 20 K/UL (150-450) Mean Platelet Volume 16.0 FL (6.5-10.1) 10.9 FL (6.5-10.1) 16.4 FL (6.5-10.1) Neutrophils (%) (Auto) % (45.0-75.0) % (45.0-75.0) % (45.0-75.0) Lymphocytes (%) (Auto) % (20.0-45.0) % (20.0-45.0) % (20.0-45.0) Monocytes (%) (Auto) % (1.0-10.0) % (1.0-10.0) % (1.0-10.0) Eosinophils (%) (Auto) % (0.0-3.0) % (0.0-3.0) % (0.0-3.0) Basophils (%) (Auto) % (0.0-2.0) % (0.0-2.0) % (0.0-2.0) Differential Total Cells Counted 100 100 100 Neutrophils % (Manual) 80 % (45-75) 82 % (45-75) 87 % (45-75) Lymphocytes % (Manual) 13 % (20-45) 9 % (20-45) 7 % (20-45) Monocytes % (Manual) 4 % (1-10) 5 % (1-10) 5 % (1-10) Eosinophils % (Manual) 2 % (0-3) 4 % (0-3) 1 % (0-3) Basophils % (Manual) 1 % (0-2) 0 % (0-2) 0 % (0-2) Band Neutrophils 0 % (0-8) 0 % (0-8) 0 % (0-8) Platelet Estimate Decreased Decreased Decreased Platelet Morphology Normal Normal Normal Hypochromasia 4+ 2+ Anisocytosis 1+ 1+ 1+ Spherocytes 2+ Sodium Level 136 MMOL/L (136-145) 141 MMOL/L (136-145) Potassium Level 2.9 MMOL/L (3.5-5.1) 3.4 MMOL/L (3.5-5.1) Chloride Level 102 MMOL/L (98-107) 109 MMOL/L (98-107) Carbon Dioxide Level 16 MMOL/L (21-32) 15 MMOL/L (21-32) Anion Gap 19 mmol/L (5-15) 17 mmol/L (5-15) Blood Urea Nitrogen 179 mg/dL (7-18) 160 mg/dL (7-18) Creatinine 4.5 MG/DL (0.55-1.30) 4.5 MG/DL (0.55-1.30) Estimat Glomerular Filtration Rate 16.7 mL/min (>60) 16.7 mL/min (>60) Glucose Level 285 MG/DL (74-106) 141 MG/DL (74-106) Calcium Level 7.6 MG/DL (8.5-10.1) 7.2 MG/DL (8.5-10.1) Total Bilirubin 0.3 MG/DL (0.2-1.0) Aspartate Amino Transf (AST/SGOT) 31 U/L (15-37) Alanine Aminotransferase (ALT/SGPT) 29 U/L (12-78) Alkaline Phosphatase 69 U/L (46-116) Total Protein 4.5 G/DL (6.4-8.2) Albumin 0.6 G/DL (3.4-5.0) Globulin 3.9 g/dL Test 01/05/20 04:00 White Blood Count 27.7 K/UL (4.8-10.8) Red Blood Count 2.83 M/UL (4.70-6.10) Hemoglobin 8.6 G/DL (14.2-18.0) Hematocrit 24.0 % (42.0-52.0) Mean Corpuscular Volume 85 FL (80-99) Mean Corpuscular Hemoglobin 30.3 PG (27.0-31.0) Mean Corpuscular Hemoglobin Concent 35.7 G/DL (32.0-36.0) Red Cell Distribution Width 13.7 % (11.6-14.8) Platelet Count 61 K/UL (150-450) Mean Platelet Volume 8.6 FL (6.5-10.1) Neutrophils (%) (Auto) % (45.0-75.0) Lymphocytes (%) (Auto) % (20.0-45.0) Monocytes (%) (Auto) % (1.0-10.0) Eosinophils (%) (Auto) % (0.0-3.0) Basophils (%) (Auto) % (0.0-2.0) Differential Total Cells Counted 100 Neutrophils % (Manual) 86 % (45-75) Lymphocytes % (Manual) 8 % (20-45) Monocytes % (Manual) 5 % (1-10) Eosinophils % (Manual) 0 % (0-3) Basophils % (Manual) 1 % (0-2) Band Neutrophils 0 % (0-8) Platelet Estimate Decreased Platelet Morphology Normal Hypochromasia 2+ Anisocytosis 1+ Spherocytes 2+ Sodium Level 144 MMOL/L (136-145) Potassium Level 5.0 MMOL/L (3.5-5.1) Chloride Level 111 MMOL/L (98-107) Carbon Dioxide Level 15 MMOL/L (21-32) Anion Gap 18 mmol/L (5-15) Blood Urea Nitrogen 161 mg/dL (7-18) Creatinine 4.8 MG/DL (0.55-1.30) Estimat Glomerular Filtration Rate 15.5 mL/min (>60) Glucose Level 205 MG/DL (74-106) Calcium Level 8.1 MG/DL (8.5-10.1) Height (Feet): 5 Height (Inches): 5.00 Weight (Pounds): 157 Objective Physical Exam: Vitals: reviewed General: NAD HEENT: nc, at, mouth guard+ Neck: supple++trach Chest: clear breath sounds bilaterally Cardiovascular: RRR, no s3, s4 Abdomen: soft, nontender, nd ++gtube Extremities: no cce, normal range of motion, ++ Spasticity in the left upper extremity. Flaccid on the right. Neuro: nonfocal : babb+, hematuria+ Wilmer Turner MD January 05, 2020 10:36
[2020-01-05] MEDS: Docusate 100mg/10ml Liq GT SCH (11:06)
[2020-01-05] MEDS: Zinc Sulfate 220mg GT SCH (11:06)
[2020-01-05] MEDS: Milk of Magnesia 30ml Ud GT SCH (11:06)
[2020-01-05] MEDS: Meropenem 500 MG in NS 55 ML IVPB SCH (11:06)
[2020-01-05] MEDS: Dakin's 0.25% (Half Strength) 16oz TOPIC SCH (11:07)
[2020-01-05] MEDS: Levemir Flexpen SUBQ SCH ×2 (11:18→20:39)
[2020-01-05] MEDS: LR 1000ml 1,000 ML IV SCH ×2 (11:19→17:44)
[2020-01-05] MEDS: Pantoprazole Inj IVP SCH ×2 (11:52→20:38)
[2020-01-05] MEDS: Sodium Citrate 30ml GT SCH ×3 (11:52→17:45)
--- NOTE | 2020-01-05 11:52 | Infectious Diseases Prog Note ---
Assessment/Plan Assessment/Plan A 1. E. coli, Klebsiella & Pseudomonas pneumonia 2. Acute renal failure 3. Ventilator dependent respiratory failure 4. intracranial hemorrhage 5. paraplegia 6. leucocytosis improving 7. GI bleeding 8. Anemia 9. COVID 19 test X 1: negative 10- Leukocytosis 11. Thrombocytopenia P 1. continue Meropenem & Levaquin 2. will follow up cultures & CBC Subjective ROS Limited/Unobtainable: Yes Constitutional: Denies: fever HEENT: Reports: other - mouth bleeding because of self biting Allergies: Coded Allergies: No Known Allergies (Unverified , 10/07/19) Objective Vital Signs Last 24 Hour Vital Signs Date Time Temp Pulse Resp B/P (MAP) Pulse Ox O2 Delivery O2 Flow Rate FiO2 01/05/20 07:44 95 01/05/20 07:10 95 27 40 01/05/20 04:00 5.0 40 01/05/20 04:00 Mechanical Ventilator 5.0 01/05/20 04:00 98.4 97 22 151/65 (93) 100 01/05/20 03:57 94 01/05/20 03:03 103 14 40 01/05/20 00:00 Mechanical Ventilator 5.0 01/05/20 00:00 98.6 103 24 145/78 (100) 100 01/05/20 00:00 5.0 40 01/04/20 23:55 103 01/04/20 23:01 101 26 40 01/04/20 20:00 5.0 40 01/04/20 20:00 99.0 91 22 125/75 (92) 100 01/04/20 20:00 Mechanical Ventilator 5.0 01/04/20 19:30 95 23 40 01/04/20 19:26 91 01/04/20 16:00 Mechanical Ventilator 5.0 01/04/20 16:00 86 01/04/20 16:00 98.2 86 20 119/61 (80) 100 01/04/20 16:00 5.0 40 01/04/20 15:10 87 26 40 01/04/20 12:00 5.0 40 01/04/20 12:00 Mechanical Ventilator 5.0 01/04/20 12:00 98.6 88 20 109/63 (78) 100 01/04/20 12:00 87 Height (Feet): 5 Height (Inches): 5.00 Weight (Pounds): 157 HEENT: status post trach Respiratory/Chest: other - on ventilator Cardiovascular: normal rate Abdomen: soft, non tender, other - GT feeding Neurologic/Psychiatric: disoriented Laboratory Tests Test 01/04/20 21:00 01/05/20 04:00 White Blood Count 13.8 K/UL (4.8-10.8) H 27.7 K/UL (4.8-10.8) #*H Red Blood Count 3.02 M/UL (4.70-6.10) L 2.83 M/UL (4.70-6.10) L Hemoglobin 8.8 G/DL (14.2-18.0) L 8.6 G/DL (14.2-18.0) L Hematocrit 27.0 % (42.0-52.0) L 24.0 % (42.0-52.0) L Mean Corpuscular Volume 89 FL (80-99) 85 FL (80-99) Mean Corpuscular Hemoglobin 29.2 PG (27.0-31.0) 30.3 PG (27.0-31.0) Mean Corpuscular Hemoglobin Concent 32.7 G/DL (32.0-36.0) 35.7 G/DL (32.0-36.0) Red Cell Distribution Width 15.1 % (11.6-14.8) H 13.7 % (11.6-14.8) Platelet Count 20 K/UL (150-450) L 61 K/UL (150-450) #L Mean Platelet Volume 16.4 FL (6.5-10.1) H 8.6 FL (6.5-10.1) Neutrophils (%) (Auto) % (45.0-75.0) % (45.0-75.0) Lymphocytes (%) (Auto) % (20.0-45.0) % (20.0-45.0) Monocytes (%) (Auto) % (1.0-10.0) % (1.0-10.0) Eosinophils (%) (Auto) % (0.0-3.0) % (0.0-3.0) Basophils (%) (Auto) % (0.0-2.0) % (0.0-2.0) Differential Total Cells Counted 100 100 Neutrophils % (Manual) 87 % (45-75) H 86 % (45-75) H Lymphocytes % (Manual) 7 % (20-45) L 8 % (20-45) L Monocytes % (Manual) 5 % (1-10) 5 % (1-10) Eosinophils % (Manual) 1 % (0-3) 0 % (0-3) Basophils % (Manual) 0 % (0-2) 1 % (0-2) Band Neutrophils 0 % (0-8) 0 % (0-8) Platelet Estimate Decreased L Decreased L Platelet Morphology Normal Normal Anisocytosis 1+ 1+ Hypochromasia 2+ Spherocytes 2+ Sodium Level 144 MMOL/L (136-145) Potassium Level 5.0 MMOL/L (3.5-5.1) Chloride Level 111 MMOL/L (98-107) H Carbon Dioxide Level 15 MMOL/L (21-32) L Anion Gap 18 mmol/L (5-15) H Blood Urea Nitrogen 161 mg/dL (7-18) H Creatinine 4.8 MG/DL (0.55-1.30) H Estimat Glomerular Filtration Rate 15.5 mL/min (>60) Glucose Level 205 MG/DL (74-106) H Calcium Level 8.1 MG/DL (8.5-10.1) L Current Medications Medications (Trade) Dose Ordered Sig/[place] Route PRN Reason Start Time Stop Time Status Last Admin Dose Admin Acetaminophen (Tylenol) 650 mg Q4H PRN GT Mild Pain (Pain Scale 1-3) 12/31/19 07:45 01/30/20 07:44 Acetaminophen (Tylenol) 650 mg Q4H PRN GT Temp >100.5 12/31/19 07:45 01/30/20 07:44 Al Hydroxide/Mg Hydroxide (Mylanta) 30 ml QIDPRN PRN GT stomach upset 12/31/19 08:00 01/30/20 07:59 Artificial Tears (Akwa-Tears) 1 drop BID BOTH EYES 12/31/19 11:00 01/30/20 10:59 01/05/20 09:00 Atorvastatin Calcium (Lipitor) 80 mg BEDTIME GT 12/31/19 21:00 03/30/20 20:59 01/04/20 20:44 Chlorhexidine Gluconate (Sheela-Hex 2%) 1 applic DAILY@2000 TOPIC 01/02/20 20:00 04/01/20 19:59 01/04/20 20:43 Dextrose (Dextrose 50%) 25 ml Q30M PRN IV Hypoglycemia 12/31/19 08:45 01/30/20 08:37 01/04/20 21:25 Dextrose (Dextrose 50%) 50 ml Q30M PRN IV hypoglycemia 12/31/19 08:45 03/30/20 08:44 01/01/20 13:05 Docusate Sodium (Colace) 100 mg DAILY GT 12/31/19 09:00 01/30/20 08:59 01/05/20 11:06 Insulin Aspart (NovoLOG) No Dose Q6HR SUBQ 12/31/19 12:00 03/30/20 11:59 01/03/20 05:54 Insulin Detemir (Levemir) 25 units Q12HR SUBQ 12/31/19 10:00 03/30/20 09:59 01/05/20 11:18 Lactated Ringer's 1,000 ml @ 150 mls/hr Q6H40M IV 01/05/20 11:15 02/04/20 11:14 01/05/20 11:19 Levofloxacin (Levaquin) 500 mg Q48H ORAL 01/03/20 12:00 01/10/20 11:59 01/03/20 13:00 Lorazepam (Ativan 2mg/ml 1ml) 1 mg Q2H PRN IV For Anxiety 01/03/20 18:00 01/10/20 17:59 01/03/20 17:57 Magnesium Hydroxide (Mom) 30 ml DAILY GT 12/31/19 09:00 01/30/20 08:59 01/05/20 11:06 Meropenem 500 mg/ Sodium Chloride 55 ml @ 110 mls/hr Q24H IVPB 01/03/20 11:00 01/08/20 10:59 01/05/20 11:06 Pantoprazole (Protonix) 40 mg Q12H IVP 01/02/20 21:00 02/01/20 20:59 01/04/20 21:01 Sodium Hypochlorite (Dakin's Half Strength) 1 applic DAILY TOPIC 01/01/20 09:00 01/31/20 08:59 01/05/20 11:07 Sodium Citrate (Bicitra) 30 ml TID GT 01/04/20 20:00 02/03/20 19:59 01/04/20 21:00 Zinc Sulfate (Zinc Sulfate) 220 mg DAILY GT 12/31/19 09:00 03/30/20 08:59 01/05/20 11:06 Anastacio Bustillo MD January 05, 2020 11:52
[2020-01-05] MEDS: Levofloxacin 500mg tab ORAL SCH (11:53)
[2020-01-05 14:09] LABS: HEMATOCRIT 23.9 % (42.0-52.0); HEMOGLOBIN 8.2 G/DL (14.2-18.0); MEAN CORPUSCULAR VOLUME 85 FL (80-99); PLATELET COUNT 113 K/UL (150-450); RED BLOOD COUNT 2.81 M/UL (4.70-6.10); RED CELL DISTRIBUTION WIDTH 13.3 % (11.6-14.8); WHITE BLOOD COUNT 20.1 K/UL (4.8-10.8)
--- NOTE | 2020-01-05 14:25 | Surgery Progress Note ---
Surgery Progress Note Subjective Procedure Performed right femoral central venous catheter insertion Additional Comments leukocytosis anemia transfused plt no active bleeding Objective Last 24 Hour Vital Signs Date Time Temp Pulse Resp B/P (MAP) Pulse Ox O2 Delivery O2 Flow Rate FiO2 01/05/20 12:00 97.7 95 22 150/78 (102) 100 01/05/20 11:45 97.9 95 22 155/87 (109) 100 01/05/20 11:37 94 01/05/20 11:05 90 27 40 01/05/20 08:00 98.3 97 22 154/81 (105) 100 01/05/20 07:44 95 01/05/20 07:10 95 27 40 01/05/20 04:00 5.0 40 01/05/20 04:00 Mechanical Ventilator 5.0 01/05/20 04:00 98.4 97 22 151/65 (93) 100 01/05/20 03:57 94 01/05/20 03:03 103 14 40 01/05/20 00:00 Mechanical Ventilator 5.0 01/05/20 00:00 98.6 103 24 145/78 (100) 100 01/05/20 00:00 5.0 40 01/04/20 23:55 103 01/04/20 23:01 101 26 40 01/04/20 20:00 5.0 40 01/04/20 20:00 99.0 91 22 125/75 (92) 100 01/04/20 20:00 Mechanical Ventilator 5.0 01/04/20 19:30 95 23 40 01/04/20 19:26 91 01/04/20 16:00 Mechanical Ventilator 5.0 01/04/20 16:00 86 01/04/20 16:00 98.2 86 20 119/61 (80) 100 01/04/20 16:00 5.0 40 01/04/20 15:10 87 26 40 I&O Intake and Output 01/04/20 01/05/20 19:00 07:00 Intake Total 350 ml 1495 ml Output Total 600 ml 875 ml Balance -250 ml 620 ml Intake Free Water 200 ml IV Total 150 ml 1495 ml Output Urine Total 450 ml 800 ml Stool Total 150 ml 75 ml # Bowel Movements 1 Dressing: other Wound: other Drains: other Cardiovascular: RSR Respiratory: decreased breath sounds Abdomen: soft, non-tender, present bowel sounds Extremities: no tenderness, no cyanosis Laboratory Tests Test 01/04/20 21:00 01/05/20 04:00 01/05/20 13:30 White Blood Count 13.8 K/UL (4.8-10.8) H 27.7 K/UL (4.8-10.8) #*H 20.1 K/UL (4.8-10.8) H Red Blood Count 3.02 M/UL (4.70-6.10) L 2.83 M/UL (4.70-6.10) L 2.81 M/UL (4.70-6.10) L Hemoglobin 8.8 G/DL (14.2-18.0) L 8.6 G/DL (14.2-18.0) L 8.2 G/DL (14.2-18.0) L Hematocrit 27.0 % (42.0-52.0) L 24.0 % (42.0-52.0) L 23.9 % (42.0-52.0) L Mean Corpuscular Volume 89 FL (80-99) 85 FL (80-99) 85 FL (80-99) Mean Corpuscular Hemoglobin 29.2 PG (27.0-31.0) 30.3 PG (27.0-31.0) 29.3 PG (27.0-31.0) Mean Corpuscular Hemoglobin Concent 32.7 G/DL (32.0-36.0) 35.7 G/DL (32.0-36.0) 34.5 G/DL (32.0-36.0) Red Cell Distribution Width 15.1 % (11.6-14.8) H 13.7 % (11.6-14.8) 13.3 % (11.6-14.8) Platelet Count 20 K/UL (150-450) L 61 K/UL (150-450) #L 113 K/UL (150-450) #L Mean Platelet Volume 16.4 FL (6.5-10.1) H 8.6 FL (6.5-10.1) 6.0 FL (6.5-10.1) L Neutrophils (%) (Auto) % (45.0-75.0) % (45.0-75.0) % (45.0-75.0) Lymphocytes (%) (Auto) % (20.0-45.0) % (20.0-45.0) % (20.0-45.0) Monocytes (%) (Auto) % (1.0-10.0) % (1.0-10.0) % (1.0-10.0) Eosinophils (%) (Auto) % (0.0-3.0) % (0.0-3.0) % (0.0-3.0) Basophils (%) (Auto) % (0.0-2.0) % (0.0-2.0) % (0.0-2.0) Differential Total Cells Counted 100 100 Neutrophils % (Manual) 87 % (45-75) H 86 % (45-75) H Pending Lymphocytes % (Manual) 7 % (20-45) L 8 % (20-45) L Pending Monocytes % (Manual) 5 % (1-10) 5 % (1-10) Eosinophils % (Manual) 1 % (0-3) 0 % (0-3) Basophils % (Manual) 0 % (0-2) 1 % (0-2) Band Neutrophils 0 % (0-8) 0 % (0-8) Platelet Estimate Decreased L Decreased L Pending Platelet Morphology Normal Normal Pending Anisocytosis 1+ 1+ Hypochromasia 2+ Spherocytes 2+ Sodium Level 144 MMOL/L (136-145) Potassium Level 5.0 MMOL/L (3.5-5.1) Chloride Level 111 MMOL/L (98-107) H Carbon Dioxide Level 15 MMOL/L (21-32) L Anion Gap 18 mmol/L (5-15) H Blood Urea Nitrogen 161 mg/dL (7-18) H Creatinine 4.8 MG/DL (0.55-1.30) H Estimat Glomerular Filtration Rate 15.5 mL/min (>60) Glucose Level 205 MG/DL (74-106) H Calcium Level 8.1 MG/DL (8.5-10.1) L Plan Problems: (1) Hyponatremia (2) ARF (acute renal failure) (3) Hyperkalemia (4) Pressure sore on sacrum Assessment & Plan: Pt presented on admission with Sacral Pressure injury and Necrosis Both Both R lower ext, R foot and L foot. Generalized edema noted. Both upper ext noted to have multiple serous blisters ,some of which are weeping serous exudate. Full thickness Sacral Pressure Injury with undermined Borders. Base of wound is 75% loose necrotic tissue,25% bree. Bone exposure at base of wound. Area of necrosis noted at distal aspect of wound in space between wound and anus.Edges are macerated. Wound is malodorous.(L)9.5cm x (W)9.2cm x (D)2.9cm,undermining clockwise 10-3 by 3.8cm @12 o'clock. Scattered areas of hyperpigmentation noted to R and L clefts of buttocks. Unable to determine exudate as pt is continuously oozing large amt of semi soft black stool and leaking into wound because of close proximity to his rectum. At upper, R gluteal cheek is additional Pressure Injury with small amt Biofilm at base of wound. Edges are pink and adherent to base of wound. No exudate noted.(L)3cm x (W)2.6cm. Medially to distal Tibia,and extending to R foot is necrotic and malodorous.Wound is partially opened at posterior R tibia but is dry . L foot is necrotic and malodorous. No exudate noted. Tx.Plan: Cleanse Sacral wound with Dakin's 0.25% jose.. Loosely Pack wound with Dakin's moistened Kerlix.Apply Moisture Barrier Paste periwound.Cover with Optifoam drsg.Change Daily and PRN. Cleanse R lower ext and R foot with Dakin's 0.25% Jose. Cover wounds with ABD Pads.Wrap with Kerlix Daily and prn. Cleanse L foot Wounds with Dakin's 0.25% Jose. Cover wounds with ABD Pads and wrap with Kerlix Daily and prn. (5) Upper GI bleed Assessment & Plan: Patient with sepsis, abnormal labs, GI bleed, pending COVID eval. Labs noted. Exam reviewed. Chest x-ray noted as below. Discussed with GI. Plan for endoscopy once COVID status evaluated. Trend hemoglobin for now transfuse PRN. G-tube is functional and okay for medications and will plan tube feeds accordingly. No acute surgical intervention as patient is actively bleeding. Proton pump inhibitor recommended and Rx as written. Will follow with recommendations thank you for let me participate in patient's care There is a tracheostomy in place. Vascularity is normal. Hazy densities in the lung bases may be layering effusions. Cardiac and mediastinal silhouette are within normal limits. The bony thorax appear unremarkable. IMPRESSION: Bibasilar hazy densities perhaps layering effusions. Javid Singh January 05, 2020 14:25
--- NOTE | 2020-01-05 18:35 | General Progress Note ---
Assessment/Plan Assessment/Plan: Assessment/Plan: sepsis anemia GIB severe thrombocytopenia - now 113 after transfusions Renal failure DM dysphagia with GT Recommendations - Platelet transfusion per heme - monitor CBC closely - possible EGD next week - guarded Subjective Allergies: Coded Allergies: No Known Allergies (Unverified , 10/07/19) Subjective Above noted d/w RN patient NPO no melena received platelets last night and this am Objective Last 24 Hour Vital Signs Date Time Temp Pulse Resp B/P (MAP) Pulse Ox O2 Delivery O2 Flow Rate FiO2 01/05/20 16:00 Mechanical Ventilator 5.0 01/05/20 16:00 5.0 40 01/05/20 15:21 95 01/05/20 15:05 94 27 40 01/05/20 12:00 Mechanical Ventilator 5.0 01/05/20 12:00 97.7 95 22 150/78 (102) 100 01/05/20 12:00 5.0 40 01/05/20 11:45 97.9 95 22 155/87 (109) 100 01/05/20 11:37 94 01/05/20 11:05 90 27 40 01/05/20 08:00 Mechanical Ventilator 5.0 01/05/20 08:00 5.0 40 01/05/20 08:00 98.3 97 22 154/81 (105) 100 01/05/20 07:44 95 01/05/20 07:10 95 27 40 01/05/20 04:00 5.0 40 01/05/20 04:00 Mechanical Ventilator 5.0 01/05/20 04:00 98.4 97 22 151/65 (93) 100 01/05/20 03:57 94 01/05/20 03:03 103 14 40 01/05/20 00:00 Mechanical Ventilator 5.0 01/05/20 00:00 98.6 103 24 145/78 (100) 100 01/05/20 00:00 5.0 40 01/04/20 23:55 103 01/04/20 23:01 101 26 40 01/04/20 20:00 5.0 40 01/04/20 20:00 99.0 91 22 125/75 (92) 100 01/04/20 20:00 Mechanical Ventilator 5.0 01/04/20 19:30 95 23 40 01/04/20 19:26 91 Intake and Output 01/04/20 01/05/20 19:00 07:00 Intake Total 350 ml 1495 ml Output Total 600 ml 875 ml Balance -250 ml 620 ml Intake Free Water 200 ml IV Total 150 ml 1495 ml Output Urine Total 450 ml 800 ml Stool Total 150 ml 75 ml # Bowel Movements 1 Laboratory Tests 01/04/20 21:00: White Blood Count 13.8H, Red Blood Count 3.02L, Hemoglobin 8.8L, Hematocrit 27.0L, Mean Corpuscular Volume 89, Mean Corpuscular Hemoglobin 29.2, Mean Corpuscular Hemoglobin Concent 32.7, Red Cell Distribution Width 15.1H, Platelet Count 20L, Mean Platelet Volume 16.4H, Neutrophils (%) (Auto) , Lymphocytes (%) (Auto) , Monocytes (%) (Auto) , Eosinophils (%) (Auto) , Basophils (%) (Auto) , Differential Total Cells Counted 100, Neutrophils % ( Manual) 87H, Lymphocytes % (Manual) 7L, Monocytes % (Manual) 5, Eosinophils % ( Manual) 1, Basophils % (Manual) 0, Band Neutrophils 0, Platelet Estimate DecreasedL, Platelet Morphology Normal, Anisocytosis 1+ 01/05/20 04:00: White Blood Count 27.7#*H, Red Blood Count 2.83L, Hemoglobin 8.6L, Hematocrit 24.0L, Mean Corpuscular Volume 85, Mean Corpuscular Hemoglobin 30.3, Mean Corpuscular Hemoglobin Concent 35.7, Red Cell Distribution Width 13.7, Platelet Count 61#L, Mean Platelet Volume 8.6, Neutrophils (%) (Auto) , Lymphocytes (%) ( Auto) , Monocytes (%) (Auto) , Eosinophils (%) (Auto) , Basophils (%) (Auto) , Differential Total Cells Counted 100, Neutrophils % (Manual) 86H, Lymphocytes % (Manual) 8L, Monocytes % (Manual) 5, Eosinophils % (Manual) 0, Basophils % ( Manual) 1, Band Neutrophils 0, Platelet Estimate DecreasedL, Platelet Morphology Normal, Anisocytosis 1+, Hypochromasia 2+, Spherocytes 2+, Sodium Level 144, Potassium Level 5.0, Chloride Level 111H, Carbon Dioxide Level 15L, Anion Gap 18H, Blood Urea Nitrogen 161H, Creatinine 4.8H, Estimat Glomerular Filtration Rate 15.5, Glucose Level 205H, Calcium Level 8.1L 01/05/20 13:30: White Blood Count 20.1H, Red Blood Count 2.81L, Hemoglobin 8.2L, Hematocrit 23.9L, Mean Corpuscular Volume 85, Mean Corpuscular Hemoglobin 29.3, Mean Corpuscular Hemoglobin Concent 34.5, Red Cell Distribution Width 13.3, Platelet Count 113#L, Mean Platelet Volume 6.0L, Neutrophils (%) (Auto) , Lymphocytes (% ) (Auto) , Monocytes (%) (Auto) , Eosinophils (%) (Auto) , Basophils (%) (Auto) , Differential Total Cells Counted 100, Neutrophils % (Manual) 81H, Lymphocytes % (Manual) 13L, Monocytes % (Manual) 5, Eosinophils % (Manual) 0, Basophils % ( Manual) 1, Band Neutrophils 0, Platelet Estimate DecreasedL, Platelet Morphology Normal, Anisocytosis 1+, Hypochromasia 2+, Spherocytes 1+ Height (Feet): 5 Height (Inches): 5.00 Weight (Pounds): 157 Objective Debilitated Neck C-spine collar coarse BS RR abd soft Rah Diaz MD January 05, 2020 18:35
[2020-01-05] MEDS: Dyna-Hex 2% Top Sol 2oz TOPIC SCH (20:38)
[2020-01-05] MEDS: Atorvastatin 80mg tab GT SCH (20:38)
[2020-01-06] VITALS: BP 137/67
[2020-01-06] MEDS: LR 1000ml 1,000 ML IV SCH ×2 (00:18→07:47)
[2020-01-06] MEDS: Dextrose 50% 25ml Syringe IV PRN ×3 (00:44→10:32)
[2020-01-06 04:00] VITALS: BP 147/77
[2020-01-06] MEDS: Insulin NovoLOG Flexpen S/S (Mod) SUBQ SCH ×4 (06:00→17:49)
[2020-01-06 06:19] LABS: ANION GAP 17 mmol/L (5-15); BLOOD UREA NITROGEN 148 mg/dL (7-18); CALCIUM 8.6 MG/DL (8.5-10.1); CARBON DIOXIDE 16 MMOL/L (21-32); CHLORIDE 112 MMOL/L (98-107); CREATININE 4.6 MG/DL (0.55-1.30); POTASSIUM 4.4 MMOL/L (3.5-5.1); SODIUM 145 MMOL/L (136-145)
[2020-01-06 06:28] LABS: HEMATOCRIT 24.2 % (42.0-52.0); HEMOGLOBIN 8.5 G/DL (14.2-18.0); MEAN CORPUSCULAR VOLUME 85 FL (80-99); PLATELET COUNT 92 K/UL (150-450); RED BLOOD COUNT 2.86 M/UL (4.70-6.10); RED CELL DISTRIBUTION WIDTH 13.4 % (11.6-14.8); WHITE BLOOD COUNT 20.2 K/UL (4.8-10.8)
[2020-01-06 08:00] VITALS: BP 137/60
[2020-01-06] MEDS ORDERED: D5NS 1,000 ML IV SCH ×2 (08:00→16:00)
--- NOTE | 2020-01-06 08:13 | General Progress Note ---
Assessment/Plan Assessment/Plan: sepsis anemia GIB thrombocytopenia hyponatremia ARF DM dysphagia with GT s/p platelet transfusion npo ivf ppi plan EGD for tomorrow if stable Subjective ROS Limited/Unobtainable: No Allergies: Coded Allergies: No Known Allergies (Unverified , 10/07/19) Objective Last 24 Hour Vital Signs Date Time Temp Pulse Resp B/P (MAP) Pulse Ox O2 Delivery O2 Flow Rate FiO2 01/06/20 07:18 80 28 40 01/06/20 04:00 5.0 40 01/06/20 04:00 Mechanical Ventilator 5.0 01/06/20 04:00 97.0 77 33 147/77 (100) 100 01/06/20 04:00 82 01/06/20 02:49 98 26 40 01/06/20 00:00 87 01/06/20 00:00 Mechanical Ventilator 5.0 01/06/20 00:00 97.8 88 35 137/67 (90) 100 01/05/20 22:50 93 28 40 01/05/20 20:00 5.0 40 01/05/20 20:00 97.3 92 30 151/80 (103) 100 01/05/20 20:00 Mechanical Ventilator 5.0 01/05/20 19:21 92 01/05/20 18:35 94 24 40 01/05/20 16:00 97.6 98 22 152/76 (101) 100 01/05/20 16:00 Mechanical Ventilator 5.0 01/05/20 16:00 5.0 40 01/05/20 15:21 95 01/05/20 15:05 94 27 40 01/05/20 12:00 Mechanical Ventilator 5.0 01/05/20 12:00 97.7 95 22 150/78 (102) 100 01/05/20 12:00 5.0 40 01/05/20 11:45 97.9 95 22 155/87 (109) 100 01/05/20 11:37 94 01/05/20 11:05 90 27 40 Intake and Output 01/05/20 01/06/20 19:00 07:00 Intake Total 150 ml 1605 ml Output Total 600 ml 650 ml Balance -450 ml 955 ml IV Total 150 ml 1605 ml Output Urine Total 450 ml 600 ml Stool Total 150 ml 50 ml Laboratory Tests 01/05/20 13:30: White Blood Count 20.1H, Red Blood Count 2.81L, Hemoglobin 8.2L, Hematocrit 23.9L, Mean Corpuscular Volume 85, Mean Corpuscular Hemoglobin 29.3, Mean Corpuscular Hemoglobin Concent 34.5, Red Cell Distribution Width 13.3, Platelet Count 113#L, Mean Platelet Volume 6.0L, Neutrophils (%) (Auto) , Lymphocytes (% ) (Auto) , Monocytes (%) (Auto) , Eosinophils (%) (Auto) , Basophils (%) (Auto) , Differential Total Cells Counted 100, Neutrophils % (Manual) 81H, Lymphocytes % (Manual) 13L, Monocytes % (Manual) 5, Eosinophils % (Manual) 0, Basophils % ( Manual) 1, Band Neutrophils 0, Platelet Estimate DecreasedL, Platelet Morphology Normal, Hypochromasia 2+, Anisocytosis 1+, Spherocytes 1+ 01/06/20 04:53: White Blood Count 20.2H, Red Blood Count 2.86L, Hemoglobin 8.5L, Hematocrit 24.2L, Mean Corpuscular Volume 85, Mean Corpuscular Hemoglobin 29.9, Mean Corpuscular Hemoglobin Concent 35.3, Red Cell Distribution Width 13.4, Platelet Count 92L, Mean Platelet Volume 6.3L, Neutrophils (%) (Auto) , Lymphocytes (%) ( Auto) , Monocytes (%) (Auto) , Eosinophils (%) (Auto) , Basophils (%) (Auto) , Neutrophils % (Manual) [Pending], Lymphocytes % (Manual) [Pending], Platelet Estimate [Pending], Platelet Morphology [Pending], Sodium Level 145, Potassium Level 4.4, Chloride Level 112H, Carbon Dioxide Level 16L, Anion Gap 17H, Blood Urea Nitrogen 148H, Creatinine 4.6H, Estimat Glomerular Filtration Rate 16.2, Glucose Level 74#, Calcium Level 8.6 Height (Feet): 5 Height (Inches): 5.00 Weight (Pounds): 168 General Appearance: no apparent distress EENT: normal ENT inspection Neck: supple Cardiovascular: normal rate Respiratory/Chest: decreased breath sounds Abdomen: normal bowel sounds, non tender, soft Extremities: non-tender Toni Mckenzie MD January 06, 2020 08:13
--- NOTE | 2020-01-06 08:59 | Pulmonology Progress Note ---
Subjective ROS Limited/Unobtainable: Yes Constitutional: Denies: fever Gastrointestinal/Abdominal: Reports: diarrhea Allergies: Coded Allergies: No Known Allergies (Unverified , 10/07/19) All Systems: reviewed and negative except above Subjective care noted on vent wbc noted oral bleeding controlled at present renal function poor for EGD in am Objective Last 24 Hour Vital Signs Date Time Temp Pulse Resp B/P (MAP) Pulse Ox O2 Delivery O2 Flow Rate FiO2 01/06/20 07:18 80 28 40 01/06/20 04:00 5.0 40 01/06/20 04:00 Mechanical Ventilator 5.0 01/06/20 04:00 97.0 77 33 147/77 (100) 100 01/06/20 04:00 82 01/06/20 02:49 98 26 40 01/06/20 00:00 87 01/06/20 00:00 Mechanical Ventilator 5.0 01/06/20 00:00 97.8 88 35 137/67 (90) 100 01/05/20 22:50 93 28 40 01/05/20 20:00 5.0 40 01/05/20 20:00 97.3 92 30 151/80 (103) 100 01/05/20 20:00 Mechanical Ventilator 5.0 01/05/20 19:21 92 01/05/20 18:35 94 24 40 01/05/20 16:00 97.6 98 22 152/76 (101) 100 01/05/20 16:00 Mechanical Ventilator 5.0 01/05/20 16:00 5.0 40 01/05/20 15:21 95 01/05/20 15:05 94 27 40 01/05/20 12:00 Mechanical Ventilator 5.0 01/05/20 12:00 97.7 95 22 150/78 (102) 100 01/05/20 12:00 5.0 40 01/05/20 11:45 97.9 95 22 155/87 (109) 100 01/05/20 11:37 94 01/05/20 11:05 90 27 40 Intake and Output 01/05/20 01/06/20 19:00 07:00 Intake Total 150 ml 1605 ml Output Total 600 ml 650 ml Balance -450 ml 955 ml IV Total 150 ml 1605 ml Output Urine Total 450 ml 600 ml Stool Total 150 ml 50 ml Objective WDWN trach clear breath sounds bilaterally without rhonchi or wheeze [id number] without MRG NABS nontender no HSM no CCE poor LOC Laboratory Tests 01/05/20 13:30: White Blood Count 20.1H, Red Blood Count 2.81L, Hemoglobin 8.2L, Hematocrit 23.9L, Mean Corpuscular Volume 85, Mean Corpuscular Hemoglobin 29.3, Mean Corpuscular Hemoglobin Concent 34.5, Red Cell Distribution Width 13.3, Platelet Count 113#L, Mean Platelet Volume 6.0L, Neutrophils (%) (Auto) , Lymphocytes (% ) (Auto) , Monocytes (%) (Auto) , Eosinophils (%) (Auto) , Basophils (%) (Auto) , Differential Total Cells Counted 100, Neutrophils % (Manual) 81H, Lymphocytes % (Manual) 13L, Monocytes % (Manual) 5, Eosinophils % (Manual) 0, Basophils % ( Manual) 1, Band Neutrophils 0, Platelet Estimate DecreasedL, Platelet Morphology Normal, Hypochromasia 2+, Anisocytosis 1+, Spherocytes 1+ 01/06/20 04:53: White Blood Count 20.2H, Red Blood Count 2.86L, Hemoglobin 8.5L, Hematocrit 24.2L, Mean Corpuscular Volume 85, Mean Corpuscular Hemoglobin 29.9, Mean Corpuscular Hemoglobin Concent 35.3, Red Cell Distribution Width 13.4, Platelet Count 92L, Mean Platelet Volume 6.3L, Neutrophils (%) (Auto) , Lymphocytes (%) ( Auto) , Monocytes (%) (Auto) , Eosinophils (%) (Auto) , Basophils (%) (Auto) , Neutrophils % (Manual) [Pending], Lymphocytes % (Manual) [Pending], Platelet Estimate [Pending], Platelet Morphology [Pending], Sodium Level 145, Potassium Level 4.4, Chloride Level 112H, Carbon Dioxide Level 16L, Anion Gap 17H, Blood Urea Nitrogen 148H, Creatinine 4.6H, Estimat Glomerular Filtration Rate 16.2, Glucose Level 74#, Calcium Level 8.6 Current Medications Medications (Trade) Dose Ordered Sig/[place] Route PRN Reason Start Time Stop Time Status Last Admin Dose Admin Acetaminophen (Tylenol) 650 mg Q4H PRN GT Mild Pain (Pain Scale 1-3) 12/31/19 07:45 01/30/20 07:44 Acetaminophen (Tylenol) 650 mg Q4H PRN GT Temp >100.5 12/31/19 07:45 01/30/20 07:44 Al Hydroxide/Mg Hydroxide (Mylanta) 30 ml QIDPRN PRN GT stomach upset 12/31/19 08:00 01/30/20 07:59 Artificial Tears (Akwa-Tears) 1 drop BID BOTH EYES 12/31/19 11:00 01/30/20 10:59 01/05/20 17:45 Atorvastatin Calcium (Lipitor) 80 mg BEDTIME GT 12/31/19 21:00 03/30/20 20:59 01/05/20 20:38 Chlorhexidine Gluconate (Sheela-Hex 2%) 1 applic DAILY@2000 TOPIC 01/02/20 20:00 04/01/20 19:59 01/05/20 20:38 Dextrose (Dextrose 50%) 25 ml Q30M PRN IV Hypoglycemia 12/31/19 08:45 01/30/20 08:37 01/06/20 02:16 Dextrose (Dextrose 50%) 50 ml Q30M PRN IV hypoglycemia 12/31/19 08:45 03/30/20 08:44 01/06/20 05:36 Dextrose/Sodium Chloride 1,000 ml @ 150 mls/hr Q6H40M IV 01/06/20 08:00 02/05/20 07:59 01/06/20 08:02 Insulin Aspart (NovoLOG) No Dose Q6HR SUBQ 12/31/19 12:00 03/30/20 11:59 01/03/20 05:54 Insulin Detemir (Levemir) 25 units Q12HR SUBQ 12/31/19 10:00 03/30/20 09:59 01/05/20 11:18 Levofloxacin (Levaquin) 500 mg Q48H ORAL 01/03/20 12:00 01/10/20 11:59 01/05/20 11:53 Lorazepam (Ativan 2mg/ml 1ml) 1 mg Q2H PRN IV For Anxiety 01/03/20 18:00 01/10/20 17:59 01/03/20 17:57 Meropenem 500 mg/ Sodium Chloride 55 ml @ 110 mls/hr Q24H IVPB 01/03/20 11:00 01/08/20 10:59 01/05/20 11:06 Pantoprazole (Protonix) 40 mg Q12H IVP 01/02/20 21:00 02/01/20 20:59 01/05/20 20:38 Sodium Hypochlorite (Dakin's Half Strength) 1 applic DAILY TOPIC 01/01/20 09:00 01/31/20 08:59 01/05/20 11:07 Zinc Sulfate (Zinc Sulfate) 220 mg DAILY GT 12/31/19 09:00 03/30/20 08:59 01/05/20 11:06 Assessment/Plan Assessment/Plan IMPRESSION chronic respiratory failure Acute on chronic renal failure elevated K anemia GIB leukocytosis possible sepsis oral bleeding PLAN monitor HH monitor wbc IV hydration per renal iv antibiotics ID , GI and renal vent as is EGD planned monitor vitals hold feeds snf meds full code prognosis very poor impression, plan, and exam edited and reviewed in detail care discussed with Lorenzo Chase MD January 06, 2020 08:59
[2020-01-06] MEDS: Zinc Sulfate 220mg GT SCH ×2 (09:00→09:06)
[2020-01-06] MEDS: Levemir Flexpen SUBQ SCH ×2 (09:00→21:00)
[2020-01-06] MEDS: Pantoprazole Inj IVP SCH ×2 (09:07→20:50)
--- NOTE | 2020-01-06 09:41 | Infectious Diseases Prog Note ---
"Assessment/Plan Assessment/Plan antibiotics : meropenem, levoquin A 1. e.coli | klebsiella | pseudomonas pneumonia 2. renal failure 3. respiratory failure 4. intracranial hemorrhage 5. paraplegia 6. leucocytosis improving 7. COVID 19 test negative x 2 P 1. continue meropenem, levoquin 3 more days 2. will follow up cultures Subjective ROS Limited/Unobtainable: Yes Allergies: Coded Allergies: No Known Allergies (Unverified , 10/07/19) Objective Vital Signs Last 24 Hour Vital Signs Date Time Temp Pulse Resp B/P (MAP) Pulse Ox O2 Delivery O2 Flow Rate FiO2 01/06/20 08:00 97.0 74 28 137/60 (85) 100 01/06/20 07:18 80 28 40 01/06/20 04:00 5.0 40 01/06/20 04:00 Mechanical Ventilator 5.0 01/06/20 04:00 97.0 77 33 147/77 (100) 100 01/06/20 04:00 82 01/06/20 02:49 98 26 40 01/06/20 00:00 87 01/06/20 00:00 Mechanical Ventilator 5.0 01/06/20 00:00 97.8 88 35 137/67 (90) 100 01/05/20 22:50 93 28 40 01/05/20 20:00 5.0 40 01/05/20 20:00 97.3 92 30 151/80 (103) 100 01/05/20 20:00 Mechanical Ventilator 5.0 01/05/20 19:21 92 01/05/20 18:35 94 24 40 01/05/20 16:00 97.6 98 22 152/76 (101) 100 01/05/20 16:00 Mechanical Ventilator 5.0 01/05/20 16:00 5.0 40 01/05/20 15:21 95 01/05/20 15:05 94 27 40 01/05/20 12:00 Mechanical Ventilator 5.0 01/05/20 12:00 97.7 95 22 150/78 (102) 100 01/05/20 12:00 5.0 40 01/05/20 11:45 97.9 95 22 155/87 (109) 100 01/05/20 11:37 94 01/05/20 11:05 90 27 40 Height (Feet): 5 Height (Inches): 5.00 Weight (Pounds): 168 HEENT: status post trach Microbiology Date/Time Source Procedure Growth Status 01/03/20 15:00 Nasopharynx Coronavirus COVID-19 PCR ([id number]) - Final Complete Laboratory Tests Test 01/05/20 13:30 01/06/20 04:53 White Blood Count 20.1 K/UL (4.8-10.8) H 20.2 K/UL (4.8-10.8) H Red Blood Count 2.81 M/UL (4.70-6.10) L 2.86 M/UL (4.70-6.10) L Hemoglobin 8.2 G/DL (14.2-18.0) L 8.5 G/DL (14.2-18.0) L Hematocrit 23.9 % (42.0-52.0) L 24.2 % (42.0-52.0) L Mean Corpuscular Volume 85 FL (80-99) 85 FL (80-99) Mean Corpuscular Hemoglobin 29.3 PG (27.0-31.0) 29.9 PG (27.0-31.0) Mean Corpuscular Hemoglobin Concent 34.5 G/DL (32.0-36.0) 35.3 G/DL (32.0-36.0) Red Cell Distribution Width 13.3 % (11.6-14.8) 13.4 % (11.6-14.8) Platelet Count 113 K/UL (150-450) #L 92 K/UL (150-450) L Mean Platelet Volume 6.0 FL (6.5-10.1) L 6.3 FL (6.5-10.1) L Neutrophils (%) (Auto) % (45.0-75.0) % (45.0-75.0) Lymphocytes (%) (Auto) % (20.0-45.0) % (20.0-45.0) Monocytes (%) (Auto) % (1.0-10.0) % (1.0-10.0) Eosinophils (%) (Auto) % (0.0-3.0) % (0.0-3.0) Basophils (%) (Auto) % (0.0-2.0) % (0.0-2.0) Differential Total Cells Counted 100 100 Neutrophils % (Manual) 81 % (45-75) H 87 % (45-75) H Lymphocytes % (Manual) 13 % (20-45) L 9 % (20-45) L Monocytes % (Manual) 5 % (1-10) 2 % (1-10) Eosinophils % (Manual) 0 % (0-3) 2 % (0-3) Basophils % (Manual) 1 % (0-2) 0 % (0-2) Band Neutrophils 0 % (0-8) 0 % (0-8) Platelet Estimate Decreased L Decreased L Platelet Morphology Normal Normal Hypochromasia 2+ 1+ Anisocytosis 1+ Spherocytes 1+ Sodium Level 145 MMOL/L (136-145) Potassium Level 4.4 MMOL/L (3.5-5.1) Chloride Level 112 MMOL/L (98-107) H Carbon Dioxide Level 16 MMOL/L (21-32) L Anion Gap 17 mmol/L (5-15) H Blood Urea Nitrogen 148 mg/dL (7-18) H Creatinine 4.6 MG/DL (0.55-1.30) H Estimat Glomerular Filtration Rate 16.2 mL/min (>60) Glucose Level 74 MG/DL (74-106) # Calcium Level 8.6 MG/DL (8.5-10.1) Current Medications Medications (Trade) Dose Ordered Sig/[place] Route PRN Reason Start Time Stop Time Status Last Admin Dose Admin Acetaminophen (Tylenol) 650 mg Q4H PRN GT Mild Pain (Pain Scale 1-3) 12/31/19 07:45 01/30/20 07:44 Acetaminophen (Tylenol) 650 mg Q4H PRN GT Temp >100.5 12/31/19 07:45 01/30/20 07:44 Al Hydroxide/Mg Hydroxide (Mylanta) 30 ml QIDPRN PRN GT stomach upset 12/31/19 08:00 01/30/20 07:59 Artificial Tears (Akwa-Tears) 1 drop BID BOTH EYES 12/31/19 11:00 01/30/20 10:59 01/06/20 09:06 Atorvastatin Calcium (Lipitor) 80 mg BEDTIME GT 12/31/19 21:00 03/30/20 20:59 01/05/20 20:38 Chlorhexidine Gluconate (Sheela-Hex 2%) 1 applic DAILY@2000 TOPIC 01/02/20 20:00 04/01/20 19:59 01/05/20 20:38 Dextrose (Dextrose 50%) 25 ml Q30M PRN IV Hypoglycemia 12/31/19 08:45 01/30/20 08:37 01/06/20 02:16 Dextrose (Dextrose 50%) 50 ml Q30M PRN IV hypoglycemia 12/31/19 08:45 03/30/20 08:44 01/06/20 05:36 Dextrose/Sodium Chloride 1,000 ml @ 150 mls/hr Q6H40M IV 01/06/20 08:00 02/05/20 07:59 01/06/20 08:02 Insulin Aspart (NovoLOG) No Dose Q6HR SUBQ 12/31/19 12:00 03/30/20 11:59 01/03/20 05:54 Insulin Detemir (Levemir) 25 units Q12HR SUBQ 12/31/19 10:00 03/30/20 09:59 01/05/20 11:18 Levofloxacin (Levaquin) 500 mg Q48H ORAL 01/03/20 12:00 01/10/20 11:59 01/05/20 11:53 Lorazepam (Ativan 2mg/ml 1ml) 1 mg Q2H PRN IV For Anxiety 01/03/20 18:00 01/10/20 17:59 01/03/20 17:57 Meropenem 500 mg/ Sodium Chloride 55 ml @ 110 mls/hr Q24H IVPB 01/03/20 11:00 01/08/20 10:59 01/05/20 11:06 Pantoprazole (Protonix) 40 mg Q12H IVP 01/02/20 21:00 02/01/20 20:59 01/06/20 09:07 Sodium Hypochlorite (Dakin's Half Strength) 1 applic DAILY TOPIC 01/01/20 09:00 01/31/20 08:59 01/05/20 11:07 Zinc Sulfate (Zinc Sulfate) 220 mg DAILY GT 12/31/19 09:00 03/30/20 08:59 01/05/20 11:06 Tony Apple MD January 06, 2020 09:41"
--- NOTE | 2020-01-06 09:56 | Hematology/Onc Progress Note ---
Assessment/Plan Assessment/Plan Assessment and recs # Thrombocytopenia - potential causes multifactorial, evaluate liver and viral etiologies to begin, also could be related to underlying medications patient has received. May be due to DIC in this case, or consumption --> Hep panel and HIV negative --> US abd to evaluate for cirrhosis and hsm --> neg for cirrhosis and hsm --> Peripheral smear ordered to evaluate for blasts /schistocytes --> abx and other meds have been reviewed --> ok for ppx if plt >50k w/ either heparin or lovenox --> Transfuse if Plt < 20k and fever, or if Plt < 10k without fever --> plt trend 41-->32-->21k-->20 -->61k --> plt transfusion 01/04 --> for sepsis is on abx # Anemia due to Upper GI bleed, hematuria --> no evidence of hemolysis is noted --> smear noted --> anemia panel reviewed, ferritin high --> no iron or epo needed --> po iron ok --> for hematuria as per urology --> Pending endoscopy when clear from covid19 --> hgb trend: 9.1 --> prbc: 2 units 01/02, # Hyperkalemia --> kayxelate as needed # ARF (acute renal failure) --> per renal # Hyponatremia # Gram negative pneumonia # Ventilator dependent respiratory failure # intracranial hemorrhage # paraplegia # Dysphagia with gtube The timing of this note does not necessarily reflect the time of the patient was seen. Greatly appreciate consultation. Subjective HEENT: Denies: no symptoms, eye pain, blurred vision, tearing, double vision, ear pain, ear discharge, nose pain, nose congestion, throat pain, throat swelling, mouth pain, mouth swelling, other Allergies: Coded Allergies: No Known Allergies (Unverified , 10/07/19) All Systems: reviewed and negative except above Subjective 01/03obtunded, s/p rbc x2, hgb improved to 9.1, us abd reviewed, hematuria+ 01/04 plt are better, got 1 unit pf platets today as well, plt now 61k, less gi bleed overnight, some black tarry stool noted 01/05 nv, labs noted, hgb 8.5, no hemolysis noted, no bleeding, plt 83, egd tomorrow Objective Objective Current Medications Medications (Trade) Dose Ordered Sig/[place] Route PRN Reason Start Time Stop Time Status Last Admin Dose Admin Acetaminophen (Tylenol) 650 mg Q4H PRN GT Mild Pain (Pain Scale 1-3) 12/31/19 07:45 01/30/20 07:44 Acetaminophen (Tylenol) 650 mg Q4H PRN GT Temp >100.5 12/31/19 07:45 01/30/20 07:44 Al Hydroxide/Mg Hydroxide (Mylanta) 30 ml QIDPRN PRN GT stomach upset 12/31/19 08:00 01/30/20 07:59 Artificial Tears (Akwa-Tears) 1 drop BID BOTH EYES 12/31/19 11:00 01/30/20 10:59 01/06/20 09:06 Atorvastatin Calcium (Lipitor) 80 mg BEDTIME GT 12/31/19 21:00 03/30/20 20:59 01/05/20 20:38 Chlorhexidine Gluconate (Sheela-Hex 2%) 1 applic DAILY@2000 TOPIC 01/02/20 20:00 04/01/20 19:59 01/05/20 20:38 Dextrose (Dextrose 50%) 25 ml Q30M PRN IV Hypoglycemia 12/31/19 08:45 01/30/20 08:37 01/06/20 02:16 Dextrose (Dextrose 50%) 50 ml Q30M PRN IV hypoglycemia 12/31/19 08:45 03/30/20 08:44 01/06/20 05:36 Dextrose/Sodium Chloride 1,000 ml @ 150 mls/hr Q6H40M IV 01/06/20 08:00 02/05/20 07:59 01/06/20 08:02 Insulin Aspart (NovoLOG) No Dose Q6HR SUBQ 12/31/19 12:00 03/30/20 11:59 01/03/20 05:54 Insulin Detemir (Levemir) 25 units Q12HR SUBQ 12/31/19 10:00 03/30/20 09:59 01/05/20 11:18 Levofloxacin (Levaquin) 500 mg Q48H ORAL 01/03/20 12:00 01/10/20 11:59 01/05/20 11:53 Lorazepam (Ativan 2mg/ml 1ml) 1 mg Q2H PRN IV For Anxiety 01/03/20 18:00 01/10/20 17:59 01/03/20 17:57 Meropenem 500 mg/ Sodium Chloride 55 ml @ 110 mls/hr Q24H IVPB 01/03/20 11:00 01/08/20 10:59 01/05/20 11:06 Pantoprazole (Protonix) 40 mg Q12H IVP 01/02/20 21:00 02/01/20 20:59 01/06/20 09:07 Sodium Hypochlorite (Dakin's Half Strength) 1 applic DAILY TOPIC 01/01/20 09:00 01/31/20 08:59 01/05/20 11:07 Zinc Sulfate (Zinc Sulfate) 220 mg DAILY GT 12/31/19 09:00 03/30/20 08:59 01/05/20 11:06 Last 24 Hour Vital Signs Date Time Temp Pulse Resp B/P (MAP) Pulse Ox O2 Delivery O2 Flow Rate FiO2 01/06/20 08:00 97.0 74 28 137/60 (85) 100 01/06/20 07:18 80 28 40 01/06/20 04:00 5.0 40 01/06/20 04:00 Mechanical Ventilator 5.0 01/06/20 04:00 97.0 77 33 147/77 (100) 100 01/06/20 04:00 82 01/06/20 02:49 98 26 40 01/06/20 00:00 87 01/06/20 00:00 Mechanical Ventilator 5.0 01/06/20 00:00 97.8 88 35 137/67 (90) 100 01/05/20 22:50 93 28 40 01/05/20 20:00 5.0 40 01/05/20 20:00 97.3 92 30 151/80 (103) 100 01/05/20 20:00 Mechanical Ventilator 5.0 01/05/20 19:21 92 01/05/20 18:35 94 24 40 01/05/20 16:00 97.6 98 22 152/76 (101) 100 01/05/20 16:00 Mechanical Ventilator 5.0 01/05/20 16:00 5.0 40 01/05/20 15:21 95 01/05/20 15:05 94 27 40 01/05/20 12:00 Mechanical Ventilator 5.0 01/05/20 12:00 97.7 95 22 150/78 (102) 100 01/05/20 12:00 5.0 40 01/05/20 11:45 97.9 95 22 155/87 (109) 100 01/05/20 11:37 94 01/05/20 11:05 90 27 40 01/05/20 08:00 Mechanical Ventilator 5.0 01/05/20 08:00 5.0 40 01/05/20 08:00 98.3 97 22 154/81 (105) 100 01/05/20 07:44 95 01/05/20 07:10 95 27 40 01/05/20 04:00 5.0 40 01/05/20 04:00 Mechanical Ventilator 5.0 01/05/20 04:00 98.4 97 22 151/65 (93) 100 01/05/20 03:57 94 01/05/20 03:03 103 14 40 01/05/20 00:00 Mechanical Ventilator 5.0 01/05/20 00:00 98.6 103 24 145/78 (100) 100 01/05/20 00:00 5.0 40 01/04/20 23:55 103 01/04/20 23:01 101 26 40 01/04/20 20:00 5.0 40 01/04/20 20:00 99.0 91 22 125/75 (92) 100 01/04/20 20:00 Mechanical Ventilator 5.0 01/04/20 19:30 95 23 40 01/04/20 19:26 91 01/04/20 16:00 Mechanical Ventilator 5.0 01/04/20 16:00 86 01/04/20 16:00 98.2 86 20 119/61 (80) 100 01/04/20 16:00 5.0 40 01/04/20 15:10 87 26 40 01/04/20 12:00 5.0 40 01/04/20 12:00 Mechanical Ventilator 5.0 01/04/20 12:00 98.6 88 20 109/63 (78) 100 01/04/20 12:00 87 01/04/20 11:05 89 24 40 Intake and Output 01/05/20 01/06/20 19:00 07:00 Intake Total 150 ml 1605 ml Output Total 600 ml 650 ml Balance -450 ml 955 ml IV Total 150 ml 1605 ml Output Urine Total 450 ml 600 ml Stool Total 150 ml 50 ml Labs Test 01/04/20 05:00 01/04/20 21:00 01/05/20 04:00 01/05/20 13:30 White Blood Count 12.9 K/UL (4.8-10.8) 13.8 K/UL (4.8-10.8) 27.7 K/UL (4.8-10.8) 20.1 K/UL (4.8-10.8) Red Blood Count 3.07 M/UL (4.70-6.10) 3.02 M/UL (4.70-6.10) 2.83 M/UL (4.70-6.10) 2.81 M/UL (4.70-6.10) Hemoglobin 9.1 G/DL (14.2-18.0) 8.8 G/DL (14.2-18.0) 8.6 G/DL (14.2-18.0) 8.2 G/DL (14.2-18.0) Hematocrit 25.7 % (42.0-52.0) 27.0 % (42.0-52.0) 24.0 % (42.0-52.0) 23.9 % (42.0-52.0) Mean Corpuscular Volume 84 FL (80-99) 89 FL (80-99) 85 FL (80-99) 85 FL (80- 99) Mean Corpuscular Hemoglobin 29.7 PG (27.0-31.0) 29.2 PG (27.0-31.0) 30.3 PG (27.0-31.0) 29.3 PG (27.0-31.0) Mean Corpuscular Hemoglobin Concent 35.6 G/DL (32.0-36.0) 32.7 G/DL (32.0-36.0) 35.7 G/DL (32.0-36.0) 34.5 G/DL (32.0-36.0) Red Cell Distribution Width 13.0 % (11.6-14.8) 15.1 % (11.6-14.8) 13.7 % (11.6-14.8) 13.3 % (11.6-14.8) Platelet Count 20 K/UL (150-450) 20 K/UL (150-450) 61 K/UL (150-450) 113 K/UL (150-450) Mean Platelet Volume 10.9 FL (6.5-10.1) 16.4 FL (6.5-10.1) 8.6 FL (6.5-10.1) 6.0 FL (6.5-10.1) Neutrophils (%) (Auto) % (45.0-75.0) % (45.0-75.0) % (45.0-75.0) % (45.0- 75.0) Lymphocytes (%) (Auto) % (20.0-45.0) % (20.0-45.0) % (20.0-45.0) % (20.0- 45.0) Monocytes (%) (Auto) % (1.0-10.0) % (1.0-10.0) % (1.0-10.0) % (1.0-10.0) Eosinophils (%) (Auto) % (0.0-3.0) % (0.0-3.0) % (0.0-3.0) % (0.0-3.0) Basophils (%) (Auto) % (0.0-2.0) % (0.0-2.0) % (0.0-2.0) % (0.0-2.0) Differential Total Cells Counted 100 100 100 100 Neutrophils % (Manual) 82 % (45-75) 87 % (45-75) 86 % (45-75) 81 % (45-75) Lymphocytes % (Manual) 9 % (20-45) 7 % (20-45) 8 % (20-45) 13 % (20-45) Monocytes % (Manual) 5 % (1-10) 5 % (1-10) 5 % (1-10) 5 % (1-10) Eosinophils % (Manual) 4 % (0-3) 1 % (0-3) 0 % (0-3) 0 % (0-3) Basophils % (Manual) 0 % (0-2) 0 % (0-2) 1 % (0-2) 1 % (0-2) Band Neutrophils 0 % (0-8) 0 % (0-8) 0 % (0-8) 0 % (0-8) Platelet Estimate Decreased Decreased Decreased Decreased Platelet Morphology Normal Normal Normal Normal Hypochromasia 2+ 2+ 2+ Anisocytosis 1+ 1+ 1+ 1+ Sodium Level 141 MMOL/L (136-145) 144 MMOL/L (136-145) Potassium Level 3.4 MMOL/L (3.5-5.1) 5.0 MMOL/L (3.5-5.1) Chloride Level 109 MMOL/L (98-107) 111 MMOL/L (98-107) Carbon Dioxide Level 15 MMOL/L (21-32) 15 MMOL/L (21-32) Anion Gap 17 mmol/L (5-15) 18 mmol/L (5-15) Blood Urea Nitrogen 160 mg/dL (7-18) 161 mg/dL (7-18) Creatinine 4.5 MG/DL (0.55-1.30) 4.8 MG/DL (0.55-1.30) Estimat Glomerular Filtration Rate 16.7 mL/min (>60) 15.5 mL/min (>60) Glucose Level 141 MG/DL (74-106) 205 MG/DL (74-106) Calcium Level 7.2 MG/DL (8.5-10.1) 8.1 MG/DL (8.5-10.1) Total Bilirubin 0.3 MG/DL (0.2-1.0) Aspartate Amino Transf (AST/SGOT) 31 U/L (15-37) Alanine Aminotransferase (ALT/SGPT) 29 U/L (12-78) Alkaline Phosphatase 69 U/L (46-116) Total Protein 4.5 G/DL (6.4-8.2) Albumin 0.6 G/DL (3.4-5.0) Globulin 3.9 g/dL Spherocytes 2+ 1+ Test 01/06/20 04:53 White Blood Count 20.2 K/UL (4.8-10.8) Red Blood Count 2.86 M/UL (4.70-6.10) Hemoglobin 8.5 G/DL (14.2-18.0) Hematocrit 24.2 % (42.0-52.0) Mean Corpuscular Volume 85 FL (80-99) Mean Corpuscular Hemoglobin 29.9 PG (27.0-31.0) Mean Corpuscular Hemoglobin Concent 35.3 G/DL (32.0-36.0) Red Cell Distribution Width 13.4 % (11.6-14.8) Platelet Count 92 K/UL (150-450) Mean Platelet Volume 6.3 FL (6.5-10.1) Neutrophils (%) (Auto) % (45.0-75.0) Lymphocytes (%) (Auto) % (20.0-45.0) Monocytes (%) (Auto) % (1.0-10.0) Eosinophils (%) (Auto) % (0.0-3.0) Basophils (%) (Auto) % (0.0-2.0) Differential Total Cells Counted 100 Neutrophils % (Manual) 87 % (45-75) Lymphocytes % (Manual) 9 % (20-45) Monocytes % (Manual) 2 % (1-10) Eosinophils % (Manual) 2 % (0-3) Basophils % (Manual) 0 % (0-2) Band Neutrophils 0 % (0-8) Platelet Estimate Decreased Platelet Morphology Normal Hypochromasia 1+ Sodium Level 145 MMOL/L (136-145) Potassium Level 4.4 MMOL/L (3.5-5.1) Chloride Level 112 MMOL/L (98-107) Carbon Dioxide Level 16 MMOL/L (21-32) Anion Gap 17 mmol/L (5-15) Blood Urea Nitrogen 148 mg/dL (7-18) Creatinine 4.6 MG/DL (0.55-1.30) Estimat Glomerular Filtration Rate 16.2 mL/min (>60) Glucose Level 74 MG/DL (74-106) Calcium Level 8.6 MG/DL (8.5-10.1) Height (Feet): 5 Height (Inches): 5.00 Weight (Pounds): 168 Objective Physical Exam: Vitals: reviewed General: NAD ++obtunded HEENT: nc, at, mouth guard+ Neck: supple++trach Chest: clear breath sounds bilaterally Cardiovascular: RRR, no s3, s4 Abdomen: soft, nontender, nd ++gtube Extremities: no cce, normal range of motion, ++ Spasticity in the left upper extremity. Flaccid on the right. Neuro: nonfocal : skinny+ Wilmer Turner MD January 06, 2020 09:56
--- NOTE | 2020-01-06 11:15 | Surgery Progress Note ---
Surgery Progress Note Subjective Procedure Performed right femoral central venous catheter insertion Additional Comments right fem line not functional noted manipulation as suture was dislodged. line replaced Objective Last 24 Hour Vital Signs Date Time Temp Pulse Resp B/P (MAP) Pulse Ox O2 Delivery O2 Flow Rate FiO2 01/06/20 08:00 97.0 74 28 137/60 (85) 100 01/06/20 08:00 Mechanical Ventilator 01/06/20 07:18 80 28 40 01/06/20 04:00 5.0 40 01/06/20 04:00 Mechanical Ventilator 5.0 01/06/20 04:00 97.0 77 33 147/77 (100) 100 01/06/20 04:00 82 01/06/20 02:49 98 26 40 01/06/20 00:00 87 01/06/20 00:00 Mechanical Ventilator 5.0 01/06/20 00:00 97.8 88 35 137/67 (90) 100 01/05/20 22:50 93 28 40 01/05/20 20:00 5.0 40 01/05/20 20:00 97.3 92 30 151/80 (103) 100 01/05/20 20:00 Mechanical Ventilator 5.0 01/05/20 19:21 92 01/05/20 18:35 94 24 40 01/05/20 16:00 97.6 98 22 152/76 (101) 100 01/05/20 16:00 Mechanical Ventilator 5.0 01/05/20 16:00 5.0 40 01/05/20 15:21 95 01/05/20 15:05 94 27 40 01/05/20 12:00 Mechanical Ventilator 5.0 01/05/20 12:00 97.7 95 22 150/78 (102) 100 01/05/20 12:00 5.0 40 01/05/20 11:45 97.9 95 22 155/87 (109) 100 01/05/20 11:37 94 I&O Intake and Output 01/05/20 01/06/20 19:00 07:00 Intake Total 150 ml 1605 ml Output Total 600 ml 650 ml Balance -450 ml 955 ml IV Total 150 ml 1605 ml Output Urine Total 450 ml 600 ml Stool Total 150 ml 50 ml Dressing: other Wound: other Drains: other Cardiovascular: RSR Respiratory: decreased breath sounds Abdomen: soft, non-tender, present bowel sounds Extremities: no cyanosis, other Laboratory Tests Test 01/05/20 13:30 01/06/20 04:53 White Blood Count 20.1 K/UL (4.8-10.8) H 20.2 K/UL (4.8-10.8) H Red Blood Count 2.81 M/UL (4.70-6.10) L 2.86 M/UL (4.70-6.10) L Hemoglobin 8.2 G/DL (14.2-18.0) L 8.5 G/DL (14.2-18.0) L Hematocrit 23.9 % (42.0-52.0) L 24.2 % (42.0-52.0) L Mean Corpuscular Volume 85 FL (80-99) 85 FL (80-99) Mean Corpuscular Hemoglobin 29.3 PG (27.0-31.0) 29.9 PG (27.0-31.0) Mean Corpuscular Hemoglobin Concent 34.5 G/DL (32.0-36.0) 35.3 G/DL (32.0-36.0) Red Cell Distribution Width 13.3 % (11.6-14.8) 13.4 % (11.6-14.8) Platelet Count 113 K/UL (150-450) #L 92 K/UL (150-450) L Mean Platelet Volume 6.0 FL (6.5-10.1) L 6.3 FL (6.5-10.1) L Neutrophils (%) (Auto) % (45.0-75.0) % (45.0-75.0) Lymphocytes (%) (Auto) % (20.0-45.0) % (20.0-45.0) Monocytes (%) (Auto) % (1.0-10.0) % (1.0-10.0) Eosinophils (%) (Auto) % (0.0-3.0) % (0.0-3.0) Basophils (%) (Auto) % (0.0-2.0) % (0.0-2.0) Differential Total Cells Counted 100 100 Neutrophils % (Manual) 81 % (45-75) H 87 % (45-75) H Lymphocytes % (Manual) 13 % (20-45) L 9 % (20-45) L Monocytes % (Manual) 5 % (1-10) 2 % (1-10) Eosinophils % (Manual) 0 % (0-3) 2 % (0-3) Basophils % (Manual) 1 % (0-2) 0 % (0-2) Band Neutrophils 0 % (0-8) 0 % (0-8) Platelet Estimate Decreased L Decreased L Platelet Morphology Normal Normal Hypochromasia 2+ 1+ Anisocytosis 1+ Spherocytes 1+ Sodium Level 145 MMOL/L (136-145) Potassium Level 4.4 MMOL/L (3.5-5.1) Chloride Level 112 MMOL/L (98-107) H Carbon Dioxide Level 16 MMOL/L (21-32) L Anion Gap 17 mmol/L (5-15) H Blood Urea Nitrogen 148 mg/dL (7-18) H Creatinine 4.6 MG/DL (0.55-1.30) H Estimat Glomerular Filtration Rate 16.2 mL/min (>60) Glucose Level 74 MG/DL (74-106) # Calcium Level 8.6 MG/DL (8.5-10.1) Plan Problems: (1) Hyponatremia (2) ARF (acute renal failure) (3) Hyperkalemia (4) Pressure sore on sacrum Assessment & Plan: Pt presented on admission with Sacral Pressure injury and Necrosis Both Both R lower ext, R foot and L foot. Generalized edema noted. Both upper ext noted to have multiple serous blisters ,some of which are weeping serous exudate. Full thickness Sacral Pressure Injury with undermined Borders. Base of wound is 75% loose necrotic tissue,25% bree. Bone exposure at base of wound. Area of necrosis noted at distal aspect of wound in space between wound and anus.Edges are macerated. Wound is malodorous.(L)9.5cm x (W)9.2cm x (D)2.9cm,undermining clockwise 10-3 by 3.8cm @12 o'clock. Scattered areas of hyperpigmentation noted to R and L clefts of buttocks. Unable to determine exudate as pt is continuously oozing large amt of semi soft black stool and leaking into wound because of close proximity to his rectum. At upper, R gluteal cheek is additional Pressure Injury with small amt Biofilm at base of wound. Edges are pink and adherent to base of wound. No exudate noted.(L)3cm x (W)2.6cm. Medially to distal Tibia,and extending to R foot is necrotic and malodorous.Wound is partially opened at posterior R tibia but is dry . L foot is necrotic and malodorous. No exudate noted. Tx.Plan: Cleanse Sacral wound with Dakin's 0.25% jose.. Loosely Pack wound with Dakin's moistened Kerlix.Apply Moisture Barrier Paste periwound.Cover with Optifoam drsg.Change Daily and PRN. Cleanse R lower ext and R foot with Dakin's 0.25% Jose. Cover wounds with ABD Pads.Wrap with Kerlix Daily and prn. Cleanse L foot Wounds with Dakin's 0.25% Jose. Cover wounds with ABD Pads and wrap with Kerlix Daily and prn. (5) Upper GI bleed Assessment & Plan: Patient with sepsis, abnormal labs, GI bleed, pending COVID eval. Labs noted. Exam reviewed. Chest x-ray noted as below. Discussed with GI. Plan for endoscopy once COVID status evaluated. Trend hemoglobin for now transfuse PRN. G-tube is functional and okay for medications and will plan tube feeds accordingly. No acute surgical intervention as patient is actively bleeding. Proton pump inhibitor recommended and Rx as written. Will follow with recommendations thank you for let me participate in patient's care There is a tracheostomy in place. Vascularity is normal. Hazy densities in the lung bases may be layering effusions. Cardiac and mediastinal silhouette are within normal limits. The bony thorax appear unremarkable. IMPRESSION: Bibasilar hazy densities perhaps layering effusions. right fem line not functional noted manipulation as suture was dislodged. line replaced Scope tomorrow Javid Singh January 06, 2020 11:15
--- NOTE | 2020-01-06 11:16 | Operative Note - PDOC ---
Operative Note Operative Note Date of Operation/Procedure: January 06, 2020 Pre-op Diagnosis: sepsis anemia leukocytosis Procedure: right femoral central venous catheter insertion Post-op Diagnosis: same as pre-op Surgeon: brunilda singh md Anesthesia: local Specimen: none Complications: none Condition: unstable Estimated Blood Loss: none Drains: none Implant(s) used?: No Indications for Procedure right fem line not functional noted manipulation as suture was dislodged. line replaced at bedside with new line Description of Procedure Patient was identified to have a manipulated right femoral line that was not functional. The ports not flushed. On closer evaluation was noted that the suture was ripped likely alignment and pulled out someone and someone had tried to place it back in but cannot the tube as it was clearly obvious that the tube was kinked within the subcutaneous tissue and not flushing properly. The right groin region was prepped draped and sent surgical fashion. The prior line was cut and removed over guidewire. Guidewire in place appropriately fashion. New triple-lumen central venous catheter placed over guidewire without complication. Guidewire removed and discarded. All 3 ports flushed and aspirated appropriately. Line sutured in place dressings applied. Patient taught procedure well Brunilda Singh January 06, 2020 11:16
[2020-01-06] MEDS: Dakin's 0.25% (Half Strength) 16oz TOPIC SCH (11:29)
[2020-01-06] MEDS: Meropenem 500 MG in NS 55 ML IVPB SCH (11:59)
[2020-01-06 12:00] VITALS: BP 156/87
[2020-01-06] MEDS: Dextrose 10% 1,000 ML IV SCH (15:59)
[2020-01-06 16:00] VITALS: BP 156/94
[2020-01-06] MEDS ORDERED: Dextrose 10%/0.9% SOD CHL 1,000 ML IV SCH (16:30)
--- NOTE | 2020-01-06 19:51 | Nephrology Progress Note ---
Assessment/Plan Problem List: (1) Respiratory failure (2) ARF (acute renal failure) (3) Hyponatremia (4) Hyperkalemia (5) Upper GI bleed (6) Pressure sore on sacrum Plan K low to correct, continue iv fluids,BUN/creatinine 70/.91 11/2019, Subjective ROS Limited/Unobtainable: Yes Objective Objective Last 24 Hour Vital Signs Date Time Temp Pulse Resp B/P (MAP) Pulse Ox O2 Delivery O2 Flow Rate FiO2 01/06/20 16:00 97.2 82 22 156/94 (114) 100 01/06/20 16:00 5.0 40 01/06/20 16:00 Mechanical Ventilator 01/06/20 16:00 74 01/06/20 15:29 76 27 40 01/06/20 12:00 5.0 40 01/06/20 12:00 Mechanical Ventilator 01/06/20 12:00 76 01/06/20 12:00 97.1 79 24 156/87 (110) 100 01/06/20 11:34 77 27 40 01/06/20 08:00 97.0 74 28 137/60 (85) 100 01/06/20 08:00 76 01/06/20 08:00 5.0 40 01/06/20 08:00 Mechanical Ventilator 01/06/20 07:18 80 28 40 01/06/20 04:00 5.0 40 01/06/20 04:00 Mechanical Ventilator 5.0 01/06/20 04:00 97.0 77 33 147/77 (100) 100 01/06/20 04:00 82 01/06/20 02:49 98 26 40 01/06/20 00:00 87 01/06/20 00:00 Mechanical Ventilator 5.0 01/06/20 00:00 97.8 88 35 137/67 (90) 100 01/05/20 22:50 93 28 40 01/05/20 20:00 5.0 40 01/05/20 20:00 97.3 92 30 151/80 (103) 100 01/05/20 20:00 Mechanical Ventilator 5.0 Intake and Output 01/05/20 01/06/20 19:00 07:00 Intake Total 150 ml 1755 ml Output Total 600 ml 650 ml Balance -450 ml 1105 ml IV Total 150 ml 1755 ml Output Urine Total 450 ml 600 ml Stool Total 150 ml 50 ml Laboratory Tests 01/06/20 04:53: White Blood Count 20.2H, Red Blood Count 2.86L, Hemoglobin 8.5L, Hematocrit 24.2L, Mean Corpuscular Volume 85, Mean Corpuscular Hemoglobin 29.9, Mean Corpuscular Hemoglobin Concent 35.3, Red Cell Distribution Width 13.4, Platelet Count 92L, Mean Platelet Volume 6.3L, Neutrophils (%) (Auto) , Lymphocytes (%) ( Auto) , Monocytes (%) (Auto) , Eosinophils (%) (Auto) , Basophils (%) (Auto) , Differential Total Cells Counted 100, Neutrophils % (Manual) 87H, Lymphocytes % (Manual) 9L, Monocytes % (Manual) 2, Eosinophils % (Manual) 2, Basophils % ( Manual) 0, Band Neutrophils 0, Platelet Estimate DecreasedL, Platelet Morphology Normal, Hypochromasia 1+, Sodium Level 145, Potassium Level 4.4, Chloride Level 112H, Carbon Dioxide Level 16L, Anion Gap 17H, Blood Urea Nitrogen 148H, Creatinine 4.6H, Estimat Glomerular Filtration Rate 16.2, Glucose Level 74#, Calcium Level 8.6 Height (Feet): 5 Height (Inches): 5.00 Weight (Pounds): 168 General Appearance: lethargic, other - on vent Cardiovascular: regular rhythm Respiratory/Chest: rhonchi - bilaterally Abdomen: soft Extremities: no edema Neurologic: unresponsive Martin Yee MD January 06, 2020 19:51
[2020-01-06 20:00] VITALS: BP 154/86
[2020-01-06] MEDS ORDERED: NS 275ml ONE ×2 (20:44→20:45)
[2020-01-06] MEDS ORDERED: Tubing IV Secondary IV ONE (20:45)
[2020-01-06] MEDS ORDERED: D5NS 1000ml IV ONE (20:45)
[2020-01-06] MEDS ORDERED: Tubing Blood Filter IV ONE (20:45)
[2020-01-06] MEDS: Dyna-Hex 2% Top Sol 2oz TOPIC SCH (20:49)
[2020-01-06] MEDS: Atorvastatin 80mg tab GT SCH (20:49)
[2020-01-07] VITALS: BP 150/84
[2020-01-07] MEDS: Dextrose 10% 1,000 ML IV SCH (02:00)
[2020-01-07 04:00] VITALS: BP 142/73
[2020-01-07 05:20] LABS: HEMATOCRIT 23.4 % (42.0-52.0); HEMOGLOBIN 8.3 G/DL (14.2-18.0); MEAN CORPUSCULAR VOLUME 86 FL (80-99); PLATELET COUNT 61 K/UL (150-450); RED BLOOD COUNT 2.73 M/UL (4.70-6.10); RED CELL DISTRIBUTION WIDTH 13.8 % (11.6-14.8)
[2020-01-07 05:41] LABS: ANION GAP 17 mmol/L (5-15); BLOOD UREA NITROGEN 135 mg/dL (7-18); CALCIUM 7.7 MG/DL (8.5-10.1); CARBON DIOXIDE 14 MMOL/L (21-32); CHLORIDE 113 MMOL/L (98-107); POTASSIUM 3.6 MMOL/L (3.5-5.1); SODIUM 144 MMOL/L (136-145)
[2020-01-07] MEDS: Insulin NovoLOG Flexpen S/S (Mod) SUBQ SCH ×5 (05:48→23:01)
[2020-01-07 06:01] LABS: WHITE BLOOD COUNT 25.7 K/UL (4.8-10.8)
[2020-01-07 08:00] VITALS: BP 150/82
--- NOTE | 2020-01-07 08:00 | Pulmonology Progress Note ---
Subjective ROS Limited/Unobtainable: Yes Constitutional: Denies: fever Gastrointestinal/Abdominal: Reports: diarrhea Allergies: Coded Allergies: No Known Allergies (Unverified , 10/07/19) All Systems: reviewed and negative except above Subjective care noted on vent wbc again worsening renal function poor for EGD in am Objective Last 24 Hour Vital Signs Date Time Temp Pulse Resp B/P (MAP) Pulse Ox O2 Delivery O2 Flow Rate FiO2 01/07/20 07:03 70 26 40 01/07/20 05:10 80 30 40 01/07/20 04:00 74 01/07/20 04:00 97.0 74 28 142/73 (96) 99 01/07/20 04:00 5.0 40 01/07/20 04:00 Mechanical Ventilator 01/07/20 03:14 76 26 40 01/07/20 01:48 73 27 40 01/07/20 00:00 76 01/07/20 00:00 5.0 40 01/07/20 00:00 Mechanical Ventilator 01/07/20 00:00 97.1 75 27 150/84 (106) 99 01/06/20 23:21 75 25 40 01/06/20 21:09 77 29 40 01/06/20 20:00 97.0 67 24 154/86 (108) 100 01/06/20 20:00 5.0 40 01/06/20 20:00 Mechanical Ventilator 01/06/20 19:54 84 25 40 01/06/20 19:01 65 01/06/20 16:00 97.2 82 22 156/94 (114) 100 01/06/20 16:00 5.0 40 01/06/20 16:00 Mechanical Ventilator 01/06/20 16:00 74 01/06/20 15:29 76 27 40 01/06/20 12:00 5.0 40 01/06/20 12:00 Mechanical Ventilator 01/06/20 12:00 76 01/06/20 12:00 97.1 79 24 156/87 (110) 100 01/06/20 11:34 77 27 40 01/06/20 08:00 97.0 74 28 137/60 (85) 100 01/06/20 08:00 76 01/06/20 08:00 5.0 40 01/06/20 08:00 Mechanical Ventilator Intake and Output 01/06/20 01/07/20 19:00 07:00 Intake Total 1580 ml 750 ml Output Total 720 ml 770 ml Balance 860 ml -20 ml IV Total 1580 ml 750 ml Output Urine Total 700 ml 750 ml Stool Total 20 ml 20 ml Objective WDWN trach clear breath sounds bilaterally without rhonchi or wheeze [id number] without MRG NABS nontender no HSM no CCE poor LOC reviewed and edited Laboratory Tests 01/07/20 04:00: White Blood Count 25.7*H, Red Blood Count 2.73L, Hemoglobin 8.3L, Hematocrit 23.4L, Mean Corpuscular Volume 86, Mean Corpuscular Hemoglobin 30.3, Mean Corpuscular Hemoglobin Concent 35.4, Red Cell Distribution Width 13.8, Platelet Count 61L, Mean Platelet Volume 7.3, Neutrophils (%) (Auto) , Lymphocytes (%) ( Auto) , Monocytes (%) (Auto) , Eosinophils (%) (Auto) , Basophils (%) (Auto) , Neutrophils % (Manual) [Pending], Lymphocytes % (Manual) [Pending], Platelet Estimate [Pending], Platelet Morphology [Pending], Sodium Level 144, Potassium Level 3.6, Chloride Level 113H, Carbon Dioxide Level 14L, Anion Gap 17H, Blood Urea Nitrogen 135H, Creatinine 4.0H, Estimat Glomerular Filtration Rate 19.1, Glucose Level 165H, Calcium Level 7.7L Current Medications Medications (Trade) Dose Ordered Sig/[place] Route PRN Reason Start Time Stop Time Status Last Admin Dose Admin Acetaminophen (Tylenol) 650 mg Q4H PRN GT Mild Pain (Pain Scale 1-3) 12/31/19 07:45 01/30/20 07:44 Acetaminophen (Tylenol) 650 mg Q4H PRN GT Temp >100.5 12/31/19 07:45 01/30/20 07:44 Al Hydroxide/Mg Hydroxide (Mylanta) 30 ml QIDPRN PRN GT stomach upset 12/31/19 08:00 01/30/20 07:59 Artificial Tears (Akwa-Tears) 1 drop BID BOTH EYES 12/31/19 11:00 01/30/20 10:59 01/06/20 17:49 Atorvastatin Calcium (Lipitor) 80 mg BEDTIME GT 12/31/19 21:00 03/30/20 20:59 01/06/20 20:49 Chlorhexidine Gluconate (Sheela-Hex 2%) 1 applic DAILY@2000 TOPIC 01/02/20 20:00 04/01/20 19:59 01/06/20 20:49 Dextrose 1,000 ml @ 100 mls/hr Q10H IV 01/06/20 16:00 02/05/20 15:59 01/06/20 15:59 Dextrose (Dextrose 50%) 25 ml Q30M PRN IV Hypoglycemia 12/31/19 08:45 01/30/20 08:37 01/06/20 10:32 Dextrose (Dextrose 50%) 50 ml Q30M PRN IV hypoglycemia 12/31/19 08:45 03/30/20 08:44 01/06/20 05:36 Dextrose/Sodium Chloride 1,000 ml @ 50 mls/hr Q20H IV 01/06/20 16:00 02/05/20 15:59 01/06/20 15:34 Insulin Aspart (NovoLOG) No Dose Q6HR SUBQ 12/31/19 12:00 03/30/20 11:59 01/03/20 05:54 Insulin Detemir (Levemir) 25 units Q12HR SUBQ 12/31/19 10:00 03/30/20 09:59 01/05/20 11:18 Levofloxacin (Levaquin) 500 mg Q48H ORAL 01/03/20 12:00 01/10/20 11:59 01/05/20 11:53 Lorazepam (Ativan 2mg/ml 1ml) 1 mg Q2H PRN IV For Anxiety 01/03/20 18:00 01/10/20 17:59 01/03/20 17:57 Meropenem 500 mg/ Sodium Chloride 55 ml @ 110 mls/hr Q24H IVPB 01/03/20 11:00 01/09/20 23:59 01/06/20 11:59 Pantoprazole (Protonix) 40 mg Q12H IVP 01/02/20 21:00 02/01/20 20:59 01/06/20 20:50 Sodium Hypochlorite (Dakin's Half Strength) 1 applic DAILY TOPIC 01/01/20 09:00 01/31/20 08:59 01/06/20 11:29 Zinc Sulfate (Zinc Sulfate) 220 mg DAILY GT 12/31/19 09:00 03/30/20 08:59 01/05/20 11:06 Assessment/Plan Assessment/Plan IMPRESSION chronic respiratory failure Acute on chronic renal failure elevated K anemia GIB leukocytosis possible sepsis oral bleeding PLAN monitor HH monitor wbc IV hydration iv antibiotics ID , GI and renal vent as is EGD monitor vitals hold feeds snf meds full code prognosis very poor for recovery impression, plan, and exam edited and reviewed in detail care discussed with Lorenzo Chase MD January 07, 2020 08:00
[2020-01-07] MEDS: Dakin's 0.25% (Half Strength) 16oz TOPIC SCH (08:23)
[2020-01-07] MEDS: Pantoprazole Inj IVP SCH ×2 (08:25→20:22)
[2020-01-07] MEDS: Levemir Flexpen SUBQ SCH ×2 (08:40→20:28)
[2020-01-07] MEDS: Zinc Sulfate 220mg GT SCH (09:00)
--- NOTE | 2020-01-07 09:45 | Pre-Procedure Note/Attestation ---
Pre-Procedure Note/Attestation Complete Prior to Procedure Planned Procedure: not applicable Procedure Narrative: egd Indications for Procedure Pre-Operative Diagnosis: GIB Attestation I attest that I discussed the nature of the procedure; its benefits; risks and complications; and alternatives (and the risks and benefits of such alternatives ), prior to the procedure, with the patient (or the patient's legal real estate representative). I attest that, if there was a reasonable possibility of needing a blood transfusion, the patient (or the patient's legal real estate representative) was given the [facility] standardized written summary, pursuant to the Renan Anil Blood Safety Act ([place] Health and Safety Code # 1645, as amended). I attest that I re-evaluated the patient just prior to the surgery and that there has been no change in the patient's H&P, except as documented below: Toni Mckenzie MD January 07, 2020 09:45
--- NOTE | 2020-01-07 10:44 | Hematology/Onc Progress Note ---
Assessment/Plan Assessment/Plan Assessment and recs # Thrombocytopenia - potential causes multifactorial, evaluate liver and viral etiologies to begin, also could be related to underlying medications patient has received. May be due to DIC in this case, or consumption --> Hep panel and HIV negative --> US abd to evaluate for cirrhosis and hsm --> neg for cirrhosis and hsm --> Peripheral smear ordered to evaluate for blasts /schistocytes --> abx and other meds have been reviewed --> ok for ppx if plt >50k w/ either heparin or lovenox --> Transfuse if Plt < 20k and fever, or if Plt < 10k without fever --> plt trend 41-->32-->21k-->20 -->61k --> plt transfusion 01/04 --> for sepsis is on abx # Anemia due to Upper GI bleed, hematuria --> no evidence of hemolysis is noted --> smear noted --> anemia panel reviewed, ferritin high --> no iron or epo needed --> po iron ok --> for hematuria as per urology --> Pending endoscopy when clear from covid19 --> hgb trend: 9.1 ->8.3 --> prbc: 2 units 01/02, # Leukocytosis due to e/coli/kleb pna --> on connor/wilma --> wbc trend 23 # Hyperkalemia --> kayxelate as needed # ARF (acute renal failure) --> per renal # Hyponatremia # Gram negative pneumonia # Ventilator dependent respiratory failure # intracranial hemorrhage # paraplegia # Dysphagia with gtube The timing of this note does not necessarily reflect the time of the patient was seen. Greatly appreciate consultation. Subjective Allergies: Coded Allergies: No Known Allergies (Unverified , 10/07/19) All Systems: reviewed and negative except above Subjective 01/03obtunded, s/p rbc x2, hgb improved to 9.1, us abd reviewed, hematuria+ 01/04 plt are better, got 1 unit pf platets today as well, plt now 61k, less gi bleed overnight, some black tarry stool noted 01/05 nv, labs noted, hgb 8.5, no hemolysis noted, no bleeding, plt 83, egd tomorrow 01/06 egd for this am, results are pending, labs noted Objective Objective Current Medications Medications (Trade) Dose Ordered Sig/[place] Route PRN Reason Start Time Stop Time Status Last Admin Dose Admin Acetaminophen (Tylenol) 650 mg Q4H PRN GT Mild Pain (Pain Scale 1-3) 12/31/19 07:45 01/30/20 07:44 Acetaminophen (Tylenol) 650 mg Q4H PRN GT Temp >100.5 12/31/19 07:45 01/30/20 07:44 Al Hydroxide/Mg Hydroxide (Mylanta) 30 ml QIDPRN PRN GT stomach upset 12/31/19 08:00 01/30/20 07:59 Artificial Tears (Akwa-Tears) 1 drop EVERY 12 HOURS BOTH EYES 01/07/20 21:00 01/30/20 10:59 Atorvastatin Calcium (Lipitor) 80 mg BEDTIME GT 12/31/19 21:00 03/30/20 20:59 01/06/20 20:49 Chlorhexidine Gluconate (Sheela-Hex 2%) 1 applic DAILY@2000 TOPIC 01/02/20 20:00 04/01/20 19:59 01/06/20 20:49 Dextrose (Dextrose 50%) 25 ml Q30M PRN IV Hypoglycemia 12/31/19 08:45 01/30/20 08:37 01/06/20 10:32 Dextrose (Dextrose 50%) 50 ml Q30M PRN IV hypoglycemia 12/31/19 08:45 03/30/20 08:44 01/06/20 05:36 Dextrose/Sodium Chloride 1,000 ml @ 50 mls/hr Q20H IV 01/06/20 16:00 02/05/20 15:59 01/06/20 15:34 Insulin Aspart (NovoLOG) No Dose Q6HR SUBQ 12/31/19 12:00 03/30/20 11:59 01/03/20 05:54 Insulin Detemir (Levemir) 25 units Q12HR SUBQ 12/31/19 10:00 03/30/20 09:59 01/07/20 08:40 Levofloxacin (Levaquin) 500 mg Q48H ORAL 01/03/20 12:00 01/10/20 11:59 01/05/20 11:53 Lorazepam (Ativan 2mg/ml 1ml) 1 mg Q2H PRN IV For Anxiety 01/03/20 18:00 01/10/20 17:59 01/03/20 17:57 Meropenem 500 mg/ Sodium Chloride 55 ml @ 110 mls/hr Q24H IVPB 01/03/20 11:00 01/09/20 23:59 01/06/20 11:59 Pantoprazole (Protonix) 40 mg Q12H IVP 01/02/20 21:00 02/01/20 20:59 01/07/20 08:25 Sodium Hypochlorite (Dakin's Half Strength) 1 applic DAILY TOPIC 01/01/20 09:00 01/31/20 08:59 01/07/20 08:23 Zinc Sulfate (Zinc Sulfate) 220 mg DAILY GT 12/31/19 09:00 03/30/20 08:59 01/05/20 11:06 Last 24 Hour Vital Signs Date Time Temp Pulse Resp B/P (MAP) Pulse Ox O2 Delivery O2 Flow Rate FiO2 01/07/20 08:57 69 29 40 01/07/20 08:52 70 01/07/20 08:00 90.7 73 27 150/82 (104) 96 01/07/20 07:03 70 26 40 01/07/20 05:10 80 30 40 01/07/20 04:00 74 01/07/20 04:00 97.0 74 28 142/73 (96) 99 01/07/20 04:00 5.0 40 01/07/20 04:00 Mechanical Ventilator 01/07/20 03:14 76 26 40 01/07/20 01:48 73 27 40 01/07/20 00:00 76 01/07/20 00:00 5.0 40 01/07/20 00:00 Mechanical Ventilator 01/07/20 00:00 97.1 75 27 150/84 (106) 99 01/06/20 23:21 75 25 40 01/06/20 21:09 77 29 40 01/06/20 20:00 97.0 67 24 154/86 (108) 100 01/06/20 20:00 5.0 40 01/06/20 20:00 Mechanical Ventilator 01/06/20 19:54 84 25 40 01/06/20 19:01 65 01/06/20 16:00 97.2 82 22 156/94 (114) 100 5/25/20 16:00 5.0 40 01/06/20 16:00 Mechanical Ventilator 01/06/20 16:00 74 01/06/20 15:29 76 27 40 01/06/20 12:00 5.0 40 01/06/20 12:00 Mechanical Ventilator 01/06/20 12:00 76 01/06/20 12:00 97.1 79 24 156/87 (110) 100 01/06/20 11:34 77 27 40 01/06/20 08:00 97.0 74 28 137/60 (85) 100 01/06/20 08:00 76 01/06/20 08:00 5.0 40 01/06/20 08:00 Mechanical Ventilator 01/06/20 07:18 80 28 40 01/06/20 04:00 5.0 40 01/06/20 04:00 Mechanical Ventilator 5.0 01/06/20 04:00 97.0 77 33 147/77 (100) 100 01/06/20 04:00 82 01/06/20 02:49 98 26 40 01/06/20 00:00 87 01/06/20 00:00 Mechanical Ventilator 5.0 01/06/20 00:00 97.8 88 35 137/67 (90) 100 01/05/20 22:50 93 28 40 01/05/20 20:00 5.0 40 01/05/20 20:00 97.3 92 30 151/80 (103) 100 01/05/20 20:00 Mechanical Ventilator 5.0 01/05/20 19:21 92 01/05/20 18:35 94 24 40 01/05/20 16:00 97.6 98 22 152/76 (101) 100 01/05/20 16:00 Mechanical Ventilator 5.0 01/05/20 16:00 5.0 40 01/05/20 15:21 95 01/05/20 15:05 94 27 40 01/05/20 12:00 Mechanical Ventilator 5.0 01/05/20 12:00 97.7 95 22 150/78 (102) 100 01/05/20 12:00 5.0 40 01/05/20 11:45 97.9 95 22 155/87 (109) 100 01/05/20 11:37 94 01/05/20 11:05 90 27 40 Intake and Output 01/06/20 01/07/20 19:00 07:00 Intake Total 1580 ml 750 ml Output Total 720 ml 770 ml Balance 860 ml -20 ml IV Total 1580 ml 750 ml Output Urine Total 700 ml 750 ml Stool Total 20 ml 20 ml Labs Test 01/04/20 21:00 01/05/20 04:00 01/05/20 13:30 01/06/20 04:53 White Blood Count 13.8 K/UL (4.8-10.8) 27.7 K/UL (4.8-10.8) 20.1 K/UL (4.8-10.8) 20.2 K/UL (4.8-10.8) Red Blood Count 3.02 M/UL (4.70-6.10) 2.83 M/UL (4.70-6.10) 2.81 M/UL (4.70-6.10) 2.86 M/UL (4.70-6.10) Hemoglobin 8.8 G/DL (14.2-18.0) 8.6 G/DL (14.2-18.0) 8.2 G/DL (14.2-18.0) 8.5 G/DL (14.2-18.0) Hematocrit 27.0 % (42.0-52.0) 24.0 % (42.0-52.0) 23.9 % (42.0-52.0) 24.2 % (42.0-52.0) Mean Corpuscular Volume 89 FL (80-99) 85 FL (80-99) 85 FL (80-99) 85 FL (80- 99) Mean Corpuscular Hemoglobin 29.2 PG (27.0-31.0) 30.3 PG (27.0-31.0) 29.3 PG (27.0-31.0) 29.9 PG (27.0-31.0) Mean Corpuscular Hemoglobin Concent 32.7 G/DL (32.0-36.0) 35.7 G/DL (32.0-36.0) 34.5 G/DL (32.0-36.0) 35.3 G/DL (32.0-36.0) Red Cell Distribution Width 15.1 % (11.6-14.8) 13.7 % (11.6-14.8) 13.3 % (11.6-14.8) 13.4 % (11.6-14.8) Platelet Count 20 K/UL (150-450) 61 K/UL (150-450) 113 K/UL (150-450) 92 K/UL (150-450) Mean Platelet Volume 16.4 FL (6.5-10.1) 8.6 FL (6.5-10.1) 6.0 FL (6.5-10.1) 6.3 FL (6.5-10.1) Neutrophils (%) (Auto) % (45.0-75.0) % (45.0-75.0) % (45.0-75.0) % (45.0- 75.0) Lymphocytes (%) (Auto) % (20.0-45.0) % (20.0-45.0) % (20.0-45.0) % (20.0- 45.0) Monocytes (%) (Auto) % (1.0-10.0) % (1.0-10.0) % (1.0-10.0) % (1.0-10.0) Eosinophils (%) (Auto) % (0.0-3.0) % (0.0-3.0) % (0.0-3.0) % (0.0-3.0) Basophils (%) (Auto) % (0.0-2.0) % (0.0-2.0) % (0.0-2.0) % (0.0-2.0) Differential Total Cells Counted 100 100 100 100 Neutrophils % (Manual) 87 % (45-75) 86 % (45-75) 81 % (45-75) 87 % (45-75) Lymphocytes % (Manual) 7 % (20-45) 8 % (20-45) 13 % (20-45) 9 % (20-45) Monocytes % (Manual) 5 % (1-10) 5 % (1-10) 5 % (1-10) 2 % (1-10) Eosinophils % (Manual) 1 % (0-3) 0 % (0-3) 0 % (0-3) 2 % (0-3) Basophils % (Manual) 0 % (0-2) 1 % (0-2) 1 % (0-2) 0 % (0-2) Band Neutrophils 0 % (0-8) 0 % (0-8) 0 % (0-8) 0 % (0-8) Platelet Estimate Decreased Decreased Decreased Decreased Platelet Morphology Normal Normal Normal Normal Anisocytosis 1+ 1+ 1+ Hypochromasia 2+ 2+ 1+ Spherocytes 2+ 1+ Sodium Level 144 MMOL/L (136-145) 145 MMOL/L (136-145) Potassium Level 5.0 MMOL/L (3.5-5.1) 4.4 MMOL/L (3.5-5.1) Chloride Level 111 MMOL/L (98-107) 112 MMOL/L (98-107) Carbon Dioxide Level 15 MMOL/L (21-32) 16 MMOL/L (21-32) Anion Gap 18 mmol/L (5-15) 17 mmol/L (5-15) Blood Urea Nitrogen 161 mg/dL (7-18) 148 mg/dL (7-18) Creatinine 4.8 MG/DL (0.55-1.30) 4.6 MG/DL (0.55-1.30) Estimat Glomerular Filtration Rate 15.5 mL/min (>60) 16.2 mL/min (>60) Glucose Level 205 MG/DL (74-106) 74 MG/DL (74-106) Calcium Level 8.1 MG/DL (8.5-10.1) 8.6 MG/DL (8.5-10.1) Test 01/07/20 04:00 White Blood Count 25.7 K/UL (4.8-10.8) Red Blood Count 2.73 M/UL (4.70-6.10) Hemoglobin 8.3 G/DL (14.2-18.0) Hematocrit 23.4 % (42.0-52.0) Mean Corpuscular Volume 86 FL (80-99) Mean Corpuscular Hemoglobin 30.3 PG (27.0-31.0) Mean Corpuscular Hemoglobin Concent 35.4 G/DL (32.0-36.0) Red Cell Distribution Width 13.8 % (11.6-14.8) Platelet Count 61 K/UL (150-450) Mean Platelet Volume 7.3 FL (6.5-10.1) Neutrophils (%) (Auto) % (45.0-75.0) Lymphocytes (%) (Auto) % (20.0-45.0) Monocytes (%) (Auto) % (1.0-10.0) Eosinophils (%) (Auto) % (0.0-3.0) Basophils (%) (Auto) % (0.0-2.0) Differential Total Cells Counted 100 Neutrophils % (Manual) 93 % (45-75) Lymphocytes % (Manual) 3 % (20-45) Monocytes % (Manual) 3 % (1-10) Eosinophils % (Manual) 1 % (0-3) Basophils % (Manual) 0 % (0-2) Band Neutrophils 0 % (0-8) Platelet Estimate Decreased Platelet Morphology Normal Hypochromasia 1+ Sodium Level 144 MMOL/L (136-145) Potassium Level 3.6 MMOL/L (3.5-5.1) Chloride Level 113 MMOL/L (98-107) Carbon Dioxide Level 14 MMOL/L (21-32) Anion Gap 17 mmol/L (5-15) Blood Urea Nitrogen 135 mg/dL (7-18) Creatinine 4.0 MG/DL (0.55-1.30) Estimat Glomerular Filtration Rate 19.1 mL/min (>60) Glucose Level 165 MG/DL (74-106) Calcium Level 7.7 MG/DL (8.5-10.1) Height (Feet): 5 Height (Inches): 5.00 Weight (Pounds): 162 Objective Physical Exam: Vitals: reviewed General: NAD ++obtunded HEENT: nc, at, mouth guard+ Neck: supple++trach Chest: clear breath sounds bilaterally Cardiovascular: RRR, no s3, s4 Abdomen: soft, nontender, nd ++gtube Extremities: no cce, normal range of motion, ++ Spasticity in the left upper extremity. Flaccid on the right. Neuro: nonfocal : skinny+ Wlimer Turner MD January 07, 2020 10:44
--- NOTE | 2020-01-07 10:46 | Infectious Diseases Prog Note ---
"Assessment/Plan Assessment/Plan antibiotics : meropenem, levoquin A 1. e.coli | klebsiella | pseudomonas pneumonia 2. renal failure 3. respiratory failure 4. intracranial hemorrhage 5. paraplegia 6. leucocytosis 7. COVID 19 test negative x 2 P 1. continue meropenem, levoquin 2 more days 2. will follow up cultures Subjective ROS Limited/Unobtainable: Yes Allergies: Coded Allergies: No Known Allergies (Unverified , 10/07/19) Objective Vital Signs Last 24 Hour Vital Signs Date Time Temp Pulse Resp B/P (MAP) Pulse Ox O2 Delivery O2 Flow Rate FiO2 01/07/20 08:57 69 29 40 01/07/20 08:52 70 01/07/20 08:00 90.7 73 27 150/82 (104) 96 01/07/20 07:03 70 26 40 01/07/20 05:10 80 30 40 01/07/20 04:00 74 01/07/20 04:00 97.0 74 28 142/73 (96) 99 01/07/20 04:00 5.0 40 01/07/20 04:00 Mechanical Ventilator 01/07/20 03:14 76 26 40 01/07/20 01:48 73 27 40 01/07/20 00:00 76 01/07/20 00:00 5.0 40 01/07/20 00:00 Mechanical Ventilator 01/07/20 00:00 97.1 75 27 150/84 (106) 99 01/06/20 23:21 75 25 40 01/06/20 21:09 77 29 40 01/06/20 20:00 97.0 67 24 154/86 (108) 100 01/06/20 20:00 5.0 40 01/06/20 20:00 Mechanical Ventilator 01/06/20 19:54 84 25 40 01/06/20 19:01 65 01/06/20 16:00 97.2 82 22 156/94 (114) 100 01/06/20 16:00 5.0 40 01/06/20 16:00 Mechanical Ventilator 01/06/20 16:00 74 01/06/20 15:29 76 27 40 01/06/20 12:00 5.0 40 01/06/20 12:00 Mechanical Ventilator 01/06/20 12:00 76 01/06/20 12:00 97.1 79 24 156/87 (110) 100 01/06/20 11:34 77 27 40 Height (Feet): 5 Height (Inches): 5.00 Weight (Pounds): 162 HEENT: status post trach Respiratory/Chest: lungs clear Cardiovascular: normal rate, regular rhythm, no gallop/murmur Abdomen: soft, non tender, other - GT Extremities: no edema Microbiology Date/Time Source Procedure Growth Status 01/06/20 09:30 Stool Clostridium difficile Toxin Assay - Final Complete Laboratory Tests Test 01/07/20 04:00 White Blood Count 25.7 K/UL (4.8-10.8) *H Red Blood Count 2.73 M/UL (4.70-6.10) L Hemoglobin 8.3 G/DL (14.2-18.0) L Hematocrit 23.4 % (42.0-52.0) L Mean Corpuscular Volume 86 FL (80-99) Mean Corpuscular Hemoglobin 30.3 PG (27.0-31.0) Mean Corpuscular Hemoglobin Concent 35.4 G/DL (32.0-36.0) Red Cell Distribution Width 13.8 % (11.6-14.8) Platelet Count 61 K/UL (150-450) L Mean Platelet Volume 7.3 FL (6.5-10.1) Neutrophils (%) (Auto) % (45.0-75.0) Lymphocytes (%) (Auto) % (20.0-45.0) Monocytes (%) (Auto) % (1.0-10.0) Eosinophils (%) (Auto) % (0.0-3.0) Basophils (%) (Auto) % (0.0-2.0) Differential Total Cells Counted 100 Neutrophils % (Manual) 93 % (45-75) H Lymphocytes % (Manual) 3 % (20-45) L Monocytes % (Manual) 3 % (1-10) Eosinophils % (Manual) 1 % (0-3) Basophils % (Manual) 0 % (0-2) Band Neutrophils 0 % (0-8) Platelet Estimate Decreased L Platelet Morphology Normal Hypochromasia 1+ Sodium Level 144 MMOL/L (136-145) Potassium Level 3.6 MMOL/L (3.5-5.1) Chloride Level 113 MMOL/L (98-107) H Carbon Dioxide Level 14 MMOL/L (21-32) L Anion Gap 17 mmol/L (5-15) H Blood Urea Nitrogen 135 mg/dL (7-18) H Creatinine 4.0 MG/DL (0.55-1.30) H Estimat Glomerular Filtration Rate 19.1 mL/min (>60) Glucose Level 165 MG/DL (74-106) H Calcium Level 7.7 MG/DL (8.5-10.1) L Current Medications Medications (Trade) Dose Ordered Sig/[place] Route PRN Reason Start Time Stop Time Status Last Admin Dose Admin Acetaminophen (Tylenol) 650 mg Q4H PRN GT Mild Pain (Pain Scale 1-3) 12/31/19 07:45 01/30/20 07:44 Acetaminophen (Tylenol) 650 mg Q4H PRN GT Temp >100.5 12/31/19 07:45 01/30/20 07:44 Al Hydroxide/Mg Hydroxide (Mylanta) 30 ml QIDPRN PRN GT stomach upset 12/31/19 08:00 01/30/20 07:59 Artificial Tears (Akwa-Tears) 1 drop EVERY 12 HOURS BOTH EYES 01/07/20 21:00 01/30/20 10:59 Atorvastatin Calcium (Lipitor) 80 mg BEDTIME GT 12/31/19 21:00 03/30/20 20:59 01/06/20 20:49 Chlorhexidine Gluconate (Sheela-Hex 2%) 1 applic DAILY@2000 TOPIC 01/02/20 20:00 04/01/20 19:59 01/06/20 20:49 Dextrose (Dextrose 50%) 25 ml Q30M PRN IV Hypoglycemia 12/31/19 08:45 01/30/20 08:37 01/06/20 10:32 Dextrose (Dextrose 50%) 50 ml Q30M PRN IV hypoglycemia 12/31/19 08:45 03/30/20 08:44 01/06/20 05:36 Dextrose/Sodium Chloride 1,000 ml @ 50 mls/hr Q20H IV 01/06/20 16:00 02/05/20 15:59 01/06/20 15:34 Insulin Aspart (NovoLOG) No Dose Q6HR SUBQ 12/31/19 12:00 03/30/20 11:59 01/03/20 05:54 Insulin Detemir (Levemir) 25 units Q12HR SUBQ 12/31/19 10:00 03/30/20 09:59 01/07/20 08:40 Levofloxacin (Levaquin) 500 mg Q48H ORAL 01/03/20 12:00 01/10/20 11:59 01/05/20 11:53 Lorazepam (Ativan 2mg/ml 1ml) 1 mg Q2H PRN IV For Anxiety 01/03/20 18:00 01/10/20 17:59 01/03/20 17:57 Meropenem 500 mg/ Sodium Chloride 55 ml @ 110 mls/hr Q24H IVPB 01/03/20 11:00 01/09/20 23:59 01/06/20 11:59 Pantoprazole (Protonix) 40 mg Q12H IVP 01/02/20 21:00 02/01/20 20:59 01/07/20 08:25 Sodium Hypochlorite (Dakin's Half Strength) 1 applic DAILY TOPIC 01/01/20 09:00 01/31/20 08:59 01/07/20 08:23 Zinc Sulfate (Zinc Sulfate) 220 mg DAILY GT 12/31/19 09:00 03/30/20 08:59 01/05/20 11:06 Tony Apple MD January 07, 2020 10:46"
--- NOTE | 2020-01-07 11:13 | Anethesia Preoperative Eval ---
Anesthesia Pre-op PMH/ROS General Date of Evaluation: January 07, 2020 Time of Evaluation: 11:10 Anesthesiologist: Akua ASA Score: ASA 4 Mallampati Score Class I : Soft palate, uvula, fauces, pillars visible Class II: Soft palate, uvula, fauces visible Class III: Soft palate, base of uvula visible Class IV: Only hard plate visible Mallampati Classification: Class III Surgeon: Magaly Diagnosis: Anemia GI bleed Surgical Procedure: EGD Anesthesia History: none Family History: no anesthesia problems Allergies: Coded Allergies: No Known Allergies (Unverified , 10/07/19) Patient NPO?: Yes Past Medical History Cardiovascular: Reports: HTN; Denies: CAD, NC, valve dz, arrhythmia, other Pulmonary: Reports: other - Reswpiratory failure vent dependent; Denies: asthma, COPD, LAISHA Gastrointestinal/Genitourinary: Reports: GERD, CRI; Denies: ESRD, other Neurologic/Psychiatric: Reports: dementia, CVA; Denies: depression/anxiety, TIA, other Endocrine: Reports: hypothyroidism, steroids; Denies: DM, other HEENT: Denies: cataract (L), cataract (R), glaucoma, KNIK (L), KNIK (R), other Hematology/Immune: Reports: anemia Musculoskeletal/Integumentary: Reports: other - contructed; Denies: OA, RA, DJD, DDD, edema PMH Narrative: as above PSxH Narrative: see H&P Anesthesia Pre-op Phys. Exam Physician Exam Last Vital Signs Date Time Temp Pulse Resp B/P (MAP) Pulse Ox O2 Delivery O2 Flow Rate FiO2 01/07/20 08:57 69 29 40 01/07/20 08:00 90.7 150/82 (104) 96 01/07/20 04:00 5.0 01/07/20 04:00 Mechanical Ventilator Constitutional: NAD Neurologic: other - unable to obtaine Cardiovascular: RRR Respiratory: other - on vent some weheezing and rhales Gastrointestinal: S/NT/ND Airway Exam Mallampati Score: Class III - trach in place MO: limited Neck: short,cervical collar ROM: limited Teeth: missing Dentures: no upper, no lower Anesthesia Pre-op A/P Labs Hematology Test 01/07/20 04:00 White Blood Count 25.7 K/UL (4.8-10.8) *H Red Blood Count 2.73 M/UL (4.70-6.10) L Hemoglobin 8.3 G/DL (14.2-18.0) L Hematocrit 23.4 % (42.0-52.0) L Mean Corpuscular Volume 86 FL (80-99) Mean Corpuscular Hemoglobin 30.3 PG (27.0-31.0) Mean Corpuscular Hemoglobin Concent 35.4 G/DL (32.0-36.0) Red Cell Distribution Width 13.8 % (11.6-14.8) Platelet Count 61 K/UL (150-450) L Mean Platelet Volume 7.3 FL (6.5-10.1) Neutrophils (%) (Auto) % (45.0-75.0) Lymphocytes (%) (Auto) % (20.0-45.0) Monocytes (%) (Auto) % (1.0-10.0) Eosinophils (%) (Auto) % (0.0-3.0) Basophils (%) (Auto) % (0.0-2.0) Differential Total Cells Counted 100 Neutrophils % (Manual) 93 % (45-75) H Lymphocytes % (Manual) 3 % (20-45) L Monocytes % (Manual) 3 % (1-10) Eosinophils % (Manual) 1 % (0-3) Basophils % (Manual) 0 % (0-2) Band Neutrophils 0 % (0-8) Platelet Estimate Decreased L Platelet Morphology Normal Hypochromasia 1+ Chemistry Test 01/07/20 04:00 Sodium Level 144 MMOL/L (136-145) Potassium Level 3.6 MMOL/L (3.5-5.1) Chloride Level 113 MMOL/L (98-107) H Carbon Dioxide Level 14 MMOL/L (21-32) L Anion Gap 17 mmol/L (5-15) H Blood Urea Nitrogen 135 mg/dL (7-18) H Creatinine 4.0 MG/DL (0.55-1.30) H Estimat Glomerular Filtration Rate 19.1 mL/min (>60) Glucose Level 165 MG/DL (74-106) H Calcium Level 7.7 MG/DL (8.5-10.1) L Risk Assessment & Plan Assessment: ASA 4 Plan: MAC Status Change Before Surgery: No Pre-Antibiotics Drug: as scheduled Tam Fatima MD January 07, 2020 11:13
[2020-01-07 12:00] VITALS: BP 157/84
[2020-01-07] MEDS: Levofloxacin 500mg tab ORAL SCH (12:18)
[2020-01-07] MEDS: Meropenem 500 MG in NS 55 ML IVPB SCH (12:19)
--- NOTE | 2020-01-07 13:06 | Endoscopy Procedure Note ---
Endoscopy Procedure Note General Indication for Procedure: gib Procedures Performed: EGD Operative Findings/Diagnosis: Specimen: none Pt Tolerated Procedure Well: Yes Estimated Blood Loss: none Anesthesia Anesthesiologist: humberto Anesthesia: general, MAC Inserted Devices Implant(s) used?: No GI Core Measures 50 yrs or older w/o bx or poly: Not Applicable 10yrs. F/U recommended: Not Applicable Toni Mckenzie MD January 07, 2020 13:06
--- NOTE | 2020-01-07 13:11 | Immediate Post-Op Evaluation ---
Immediate Post-Op Evalulation Immediate Post-Op Evalulation Procedure: EGD ulcer ablasion Date of Evaluation: January 07, 2020 Time of Evaluation: 13:09 IV Fluids: 150 Blood Products: none Estimated Blood Loss: min Urinary Output: none Blood Pressure Systolic: 154 Blood Pressure Diastolic: 72 Pulse Rate: 68 Respiratory Rate: 20 O2 Sat by Pulse Oximetry: 98 Temperature (Fahrenheit): 97.6 Pain Score (1-10): 1 Nausea: No Vomiting: No Complications none Patient Status: no response, ventilated, none Hydration Status: adequate Tam Fatima MD January 07, 2020 13:11
--- NOTE | 2020-01-07 13:13 | 48 Hour Post Anesthesia Eval ---
Post Anesthesia Evaluation Procedure: EGD ulcer ablasion Date of Evaluation: January 07, 2020 Time of Evaluation: 14:50 Blood Pressure Systolic: 152 0: 74 Pulse Rate: 78 Respiratory Rate: 18 Temperature (Fahrenheit): 97.6 O2 Sat by Pulse Oximetry: 98 Airway: other - tracheostomy Nausea: No Vomiting: No Pain Intensity: 1 Hydration Status: adequate Cardiopulmonary Status: stable Mental Status/LOC: patient returned to baseline Follow-up Care/Observations: n/a Post-Anesthesia Complications: none Follow-up care needed: N/A Tam Fatima MD January 07, 2020 13:13
[2020-01-07] MEDS: Sodium Bicarbonate 50 ML in D5W 1000ml 1,000 ML IV SCH ×2 (13:37→23:01)
--- NOTE | 2020-01-07 14:20 | Surgery Progress Note ---
Surgery Progress Note Subjective Procedure Performed right femoral central venous catheter insertion Additional Comments ill appearing leukocytosis exam stable anemia micro reviewed Objective Last 24 Hour Vital Signs Date Time Temp Pulse Resp B/P (MAP) Pulse Ox O2 Delivery O2 Flow Rate FiO2 01/07/20 13:13 78 18 98 01/07/20 13:11 68 20 98 01/07/20 12:33 69 01/07/20 12:00 40 01/07/20 12:00 90.7 70 27 157/84 (108) 97 01/07/20 12:00 Mechanical Ventilator 01/07/20 10:46 68 27 40 01/07/20 08:57 69 29 40 01/07/20 08:52 70 01/07/20 08:00 90.7 73 27 150/82 (104) 96 01/07/20 08:00 Mechanical Ventilator 01/07/20 08:00 40 01/07/20 07:03 70 26 40 01/07/20 05:10 80 30 40 01/07/20 04:00 74 01/07/20 04:00 97.0 74 28 142/73 (96) 99 01/07/20 04:00 5.0 40 01/07/20 04:00 Mechanical Ventilator 01/07/20 03:14 76 26 40 01/07/20 01:48 73 27 40 01/07/20 00:00 76 01/07/20 00:00 5.0 40 01/07/20 00:00 Mechanical Ventilator 01/07/20 00:00 97.1 75 27 150/84 (106) 99 01/06/20 23:21 75 25 40 01/06/20 21:09 77 29 40 01/06/20 20:00 97.0 67 24 154/86 (108) 100 01/06/20 20:00 5.0 40 01/06/20 20:00 Mechanical Ventilator 01/06/20 19:54 84 25 40 01/06/20 19:01 65 01/06/20 16:00 97.2 82 22 156/94 (114) 100 01/06/20 16:00 5.0 40 01/06/20 16:00 Mechanical Ventilator 01/06/20 16:00 74 01/06/20 15:29 76 27 40 I&O Intake and Output 01/06/20 01/07/20 19:00 07:00 Intake Total 1580 ml 750 ml Output Total 720 ml 770 ml Balance 860 ml -20 ml IV Total 1580 ml 750 ml Output Urine Total 700 ml 750 ml Stool Total 20 ml 20 ml Dressing: other Wound: other Drains: other Cardiovascular: RSR Respiratory: decreased breath sounds Abdomen: soft, non-tender, present bowel sounds Extremities: no cyanosis Laboratory Tests Test 01/07/20 04:00 White Blood Count 25.7 K/UL (4.8-10.8) *H Red Blood Count 2.73 M/UL (4.70-6.10) L Hemoglobin 8.3 G/DL (14.2-18.0) L Hematocrit 23.4 % (42.0-52.0) L Mean Corpuscular Volume 86 FL (80-99) Mean Corpuscular Hemoglobin 30.3 PG (27.0-31.0) Mean Corpuscular Hemoglobin Concent 35.4 G/DL (32.0-36.0) Red Cell Distribution Width 13.8 % (11.6-14.8) Platelet Count 61 K/UL (150-450) L Mean Platelet Volume 7.3 FL (6.5-10.1) Neutrophils (%) (Auto) % (45.0-75.0) Lymphocytes (%) (Auto) % (20.0-45.0) Monocytes (%) (Auto) % (1.0-10.0) Eosinophils (%) (Auto) % (0.0-3.0) Basophils (%) (Auto) % (0.0-2.0) Differential Total Cells Counted 100 Neutrophils % (Manual) 93 % (45-75) H Lymphocytes % (Manual) 3 % (20-45) L Monocytes % (Manual) 3 % (1-10) Eosinophils % (Manual) 1 % (0-3) Basophils % (Manual) 0 % (0-2) Band Neutrophils 0 % (0-8) Platelet Estimate Decreased L Platelet Morphology Normal Hypochromasia 1+ Sodium Level 144 MMOL/L (136-145) Potassium Level 3.6 MMOL/L (3.5-5.1) Chloride Level 113 MMOL/L (98-107) H Carbon Dioxide Level 14 MMOL/L (21-32) L Anion Gap 17 mmol/L (5-15) H Blood Urea Nitrogen 135 mg/dL (7-18) H Creatinine 4.0 MG/DL (0.55-1.30) H Estimat Glomerular Filtration Rate 19.1 mL/min (>60) Glucose Level 165 MG/DL (74-106) H Calcium Level 7.7 MG/DL (8.5-10.1) L Plan Problems: (1) Hyponatremia (2) ARF (acute renal failure) (3) Hyperkalemia (4) Pressure sore on sacrum Assessment & Plan: Pt presented on admission with Sacral Pressure injury and Necrosis Both Both R lower ext, R foot and L foot. Generalized edema noted. Both upper ext noted to have multiple serous blisters ,some of which are weeping serous exudate. Full thickness Sacral Pressure Injury with undermined Borders. Base of wound is 75% loose necrotic tissue,25% bree. Bone exposure at base of wound. Area of necrosis noted at distal aspect of wound in space between wound and anus.Edges are macerated. Wound is malodorous.(L)9.5cm x (W)9.2cm x (D)2.9cm,undermining clockwise 10-3 by 3.8cm @12 o'clock. Scattered areas of hyperpigmentation noted to R and L clefts of buttocks. Unable to determine exudate as pt is continuously oozing large amt of semi soft black stool and leaking into wound because of close proximity to his rectum. At upper, R gluteal cheek is additional Pressure Injury with small amt Biofilm at base of wound. Edges are pink and adherent to base of wound. No exudate noted.(L)3cm x (W)2.6cm. Medially to distal Tibia,and extending to R foot is necrotic and malodorous.Wound is partially opened at posterior R tibia but is dry . L foot is necrotic and malodorous. No exudate noted. Tx.Plan: Cleanse Sacral wound with Dakin's 0.25% jose.. Loosely Pack wound with Dakin's moistened Kerlix.Apply Moisture Barrier Paste periwound.Cover with Optifoam drsg.Change Daily and PRN. Cleanse R lower ext and R foot with Dakin's 0.25% Jose. Cover wounds with ABD Pads.Wrap with Kerlix Daily and prn. Cleanse L foot Wounds with Dakin's 0.25% Jose. Cover wounds with ABD Pads and wrap with Kerlix Daily and prn. (5) Upper GI bleed Assessment & Plan: Patient with sepsis, abnormal labs, GI bleed, pending COVID eval. Labs noted. Exam reviewed. Chest x-ray noted as below. Discussed with GI. Plan for endoscopy once COVID status evaluated. Trend hemoglobin for now transfuse PRN. G-tube is functional and okay for medications and will plan tube feeds accordingly. No acute surgical intervention as patient is actively bleeding. Proton pump inhibitor recommended and Rx as written. Will follow with recommendations thank you for let me participate in patient's care There is a tracheostomy in place. Vascularity is normal. Hazy densities in the lung bases may be layering effusions. Cardiac and mediastinal silhouette are within normal limits. The bony thorax appear unremarkable. IMPRESSION: Bibasilar hazy densities perhaps layering effusions. right fem line not functional noted manipulation as suture was dislodged. line replaced Scope tomorrow Javid Singh January 07, 2020 14:20
[2020-01-07 16:00] VITALS: BP 153/78
[2020-01-07 19:50] VITALS: BP 153/83
--- NOTE | 2020-01-07 20:14 | Nephrology Progress Note ---
Assessment/Plan Problem List: (1) Respiratory failure (2) ARF (acute renal failure) (3) Hyponatremia (4) Hyperkalemia (5) Upper GI bleed (6) Pressure sore on sacrum Plan K low to correct, continue iv fluids,BUN/creatinine 70/.91 11/2019, bicarb for acidosis Subjective ROS Limited/Unobtainable: Yes Objective Objective Last 24 Hour Vital Signs Date Time Temp Pulse Resp B/P (MAP) Pulse Ox O2 Delivery O2 Flow Rate FiO2 01/07/20 20:00 68 01/07/20 19:50 93.8 69 25 153/83 (106) 97 01/07/20 19:01 70 28 40 01/07/20 18:00 Mechanical Ventilator 01/07/20 17:24 76 28 40 01/07/20 16:00 90.7 71 31 153/78 (103) 100 01/07/20 16:00 40 01/07/20 16:00 Mechanical Ventilator 01/07/20 15:23 69 01/07/20 14:36 76 29 40 01/07/20 13:27 71 27 40 01/07/20 13:13 78 18 98 01/07/20 13:11 68 20 98 01/07/20 12:33 69 01/07/20 12:00 40 01/07/20 12:00 90.7 70 27 157/84 (108) 97 01/07/20 12:00 Mechanical Ventilator 01/07/20 10:46 68 27 40 01/07/20 08:57 69 29 40 01/07/20 08:52 70 01/07/20 08:00 90.7 73 27 150/82 (104) 96 01/07/20 08:00 Mechanical Ventilator 01/07/20 08:00 40 01/07/20 07:03 70 26 40 01/07/20 05:10 80 30 40 01/07/20 04:00 74 01/07/20 04:00 97.0 74 28 142/73 (96) 99 01/07/20 04:00 5.0 40 01/07/20 04:00 Mechanical Ventilator 01/07/20 03:14 76 26 40 01/07/20 01:48 73 27 40 01/07/20 00:00 76 01/07/20 00:00 5.0 40 01/07/20 00:00 Mechanical Ventilator 01/07/20 00:00 97.1 75 27 150/84 (106) 99 01/06/20 23:21 75 25 40 01/06/20 21:09 77 29 40 Intake and Output 01/06/20 01/07/20 19:00 07:00 Intake Total 1580 ml 750 ml Output Total 720 ml 770 ml Balance 860 ml -20 ml IV Total 1580 ml 750 ml Output Urine Total 700 ml 750 ml Stool Total 20 ml 20 ml Laboratory Tests 01/07/20 04:00: White Blood Count 25.7*H, Red Blood Count 2.73L, Hemoglobin 8.3L, Hematocrit 23.4L, Mean Corpuscular Volume 86, Mean Corpuscular Hemoglobin 30.3, Mean Corpuscular Hemoglobin Concent 35.4, Red Cell Distribution Width 13.8, Platelet Count 61L, Mean Platelet Volume 7.3, Neutrophils (%) (Auto) , Lymphocytes (%) ( Auto) , Monocytes (%) (Auto) , Eosinophils (%) (Auto) , Basophils (%) (Auto) , Differential Total Cells Counted 100, Neutrophils % (Manual) 93H, Lymphocytes % (Manual) 3L, Monocytes % (Manual) 3, Eosinophils % (Manual) 1, Basophils % ( Manual) 0, Band Neutrophils 0, Platelet Estimate DecreasedL, Platelet Morphology Normal, Hypochromasia 1+, Sodium Level 144, Potassium Level 3.6, Chloride Level 113H, Carbon Dioxide Level 14L, Anion Gap 17H, Blood Urea Nitrogen 135H, Creatinine 4.0H, Estimat Glomerular Filtration Rate 19.1, Glucose Level 165H, Calcium Level 7.7L Height (Feet): 5 Height (Inches): 5.00 Weight (Pounds): 157 General Appearance: other - on vent Cardiovascular: regular rhythm Respiratory/Chest: rhonchi - bilaterally Abdomen: soft Extremities: no edema Neurologic: unresponsive Martin Yee MD January 07, 2020 20:14
[2020-01-07] MEDS: Dyna-Hex 2% Top Sol 2oz TOPIC SCH (20:22)
[2020-01-07] MEDS: Atorvastatin 80mg tab GT SCH ×2 (20:22→20:42)
--- NOTE | 2020-01-07 21:00 | Procedure Note ---
DATE OF PROCEDURE: 01/07/2020 SURGEON: Toni Mckenzie MD. PROCEDURE: Upper endoscopy with hemostasis. ANESTHESIA: Per Dr. Fatima. INSTRUMENT: Olympus adult flexible upper endoscope. INDICATION: GI bleeding. REASON FOR PROCEDURE: The procedure, risks, benefits, and possible consequences, including hemorrhage, aspiration, perforation and infection, and alternative treatments, were explained to the patient/legal guardian by Dr. Toni Mckenzie and the patient/legal guardian understood and accepted these risks. DESCRIPTION OF PROCEDURE: After informed consent was obtained and patient was adequately sedated, Olympus upper endoscope was advanced from mouth into the second portion of duodenum and retroflexion was performed in the stomach. Patient had some blood clots seen in the proximal body of the stomach suggestive of recent bleed. There were 1 or 2 AVMs. I doubt that they were source of bleeding. There was also an ulcer with a small visible vessel in the proximal body of the stomach. Then, we used a gold probe to cauterize the ulcer successfully without any active bleeding. At this time, the scope was retrieved and procedure was terminated. SUMMARY OF FINDINGS: 1. Two or three gastric AVMs. 2. Ulcer with a small visible vessel, status post gold probe bipolar cauterization. RECOMMENDATIONS: 1. Follow hemoglobin and hematocrit. 2. Transfuse as needed. 3. Continue on PPI. 4. Resume feeding and advance as tolerated. Toni Mckenzie M.D. DR: JOANNE JOB#: [id number] CC:
[2020-01-08] VITALS: BP 148/62
[2020-01-08 04:00] VITALS: BP 150/81
[2020-01-08] MEDS: Insulin NovoLOG Flexpen S/S (Mod) SUBQ SCH ×4 (05:02→21:00)
[2020-01-08 05:58] LABS: ANION GAP 18 mmol/L (5-15); BLOOD UREA NITROGEN 145 mg/dL (7-18); CALCIUM 8.1 MG/DL (8.5-10.1); CARBON DIOXIDE 16 MMOL/L (21-32); CHLORIDE 109 MMOL/L (98-107); CREATININE 4.4 MG/DL (0.55-1.30); POTASSIUM 3.6 MMOL/L (3.5-5.1); SODIUM 143 MMOL/L (136-145)
[2020-01-08 07:25] VITALS: BP 134/77
[2020-01-08 07:39] LABS: HEMATOCRIT 23.2 % (42.0-52.0); HEMOGLOBIN 8.1 G/DL (14.2-18.0); MEAN CORPUSCULAR VOLUME 85 FL (80-99); PLATELET COUNT 47 K/UL (150-450); RED BLOOD COUNT 2.72 M/UL (4.70-6.10); RED CELL DISTRIBUTION WIDTH 13.9 % (11.6-14.8)
[2020-01-08 07:42] LABS: WHITE BLOOD COUNT 24.2 K/UL (4.8-10.8)
[2020-01-08] MEDS: Pantoprazole Inj IVP SCH ×2 (08:56→22:05)
[2020-01-08] MEDS: Zinc Sulfate 220mg GT SCH (08:56)
[2020-01-08] MEDS: Levemir Flexpen SUBQ SCH ×2 (08:58→21:00)
[2020-01-08] MEDS: Dakin's 0.25% (Half Strength) 16oz TOPIC SCH (08:58)
[2020-01-08] MEDS: Sodium Bicarbonate 50 ML in D5W 1000ml 1,000 ML IV SCH ×2 (08:59→21:00)
--- NOTE | 2020-01-08 09:23 | Pulmonology Progress Note ---
Subjective ROS Limited/Unobtainable: Yes Constitutional: Denies: fever Gastrointestinal/Abdominal: Reports: diarrhea Allergies: Coded Allergies: No Known Allergies (Unverified , 10/07/19) All Systems: reviewed and negative except above Subjective care noted on vent wbc not improving renal function poor for EGD Objective Last 24 Hour Vital Signs Date Time Temp Pulse Resp B/P (MAP) Pulse Ox O2 Delivery O2 Flow Rate FiO2 01/08/20 07:25 96.1 71 24 134/77 (96) 99 01/08/20 04:00 Mechanical Ventilator 01/08/20 04:00 94.5 69 24 150/81 (104) 99 01/08/20 04:00 40 01/08/20 03:32 68 01/08/20 02:58 67 29 40 01/08/20 00:00 Mechanical Ventilator 01/08/20 00:00 66 01/08/20 00:00 93.4 69 24 148/62 (90) 98 01/08/20 00:00 40 01/07/20 22:43 68 27 40 01/07/20 20:49 68 27 40 01/07/20 20:00 Mechanical Ventilator 01/07/20 20:00 40 01/07/20 20:00 68 01/07/20 19:50 93.8 69 25 153/83 (106) 97 01/07/20 19:01 70 28 40 01/07/20 18:00 Mechanical Ventilator 01/07/20 17:24 76 28 40 01/07/20 16:00 90.7 71 31 153/78 (103) 100 01/07/20 16:00 40 01/07/20 16:00 Mechanical Ventilator 01/07/20 15:23 69 01/07/20 14:36 76 29 40 01/07/20 13:27 71 27 40 01/07/20 13:13 78 18 98 01/07/20 13:11 68 20 98 01/07/20 12:33 69 01/07/20 12:00 40 01/07/20 12:00 90.7 70 27 157/84 (108) 97 01/07/20 12:00 Mechanical Ventilator 01/07/20 10:46 68 27 40 Intake and Output 01/07/20 01/08/20 19:00 07:00 Intake Total 593.333 ml 1199 ml Output Total 710 ml 500 ml Balance -116.667 ml 699 ml IV Total 593.333 ml 1199 ml Output Urine Total 700 ml 500 ml Stool Total 10 ml # Bowel Movements 1 4 Objective WDWN trach clear breath sounds bilaterally without rhonchi or wheeze [id number] without MRG NABS nontender no HSM no CCE poor LOC reviewed and edited Microbiology Date/Time Source Procedure Growth Status 01/06/20 09:30 Stool Clostridium difficile Toxin Assay - Final Complete Laboratory Tests 01/08/20 04:50: White Blood Count 24.2*H, Red Blood Count 2.72L, Hemoglobin 8.1L, Hematocrit 23.2L, Mean Corpuscular Volume 85, Mean Corpuscular Hemoglobin 29.8, Mean Corpuscular Hemoglobin Concent 34.8, Red Cell Distribution Width 13.9, Platelet Count 47L, Mean Platelet Volume 7.4, Neutrophils (%) (Auto) , Lymphocytes (%) ( Auto) , Monocytes (%) (Auto) , Eosinophils (%) (Auto) , Basophils (%) (Auto) , Differential Total Cells Counted 100, Neutrophils % (Manual) 92H, Lymphocytes % (Manual) 2L, Monocytes % (Manual) 4, Eosinophils % (Manual) 2, Basophils % ( Manual) 0, Band Neutrophils 0, Platelet Estimate DecreasedL, Platelet Morphology Normal, Hypochromasia 1+, Sodium Level 143, Potassium Level 3.6, Chloride Level 109H, Carbon Dioxide Level 16L, Anion Gap 18H, Blood Urea Nitrogen 145H, Creatinine 4.4H, Estimat Glomerular Filtration Rate 17.1, Glucose Level 163H, Calcium Level 8.1L Current Medications Medications (Trade) Dose Ordered Sig/[place] Route PRN Reason Start Time Stop Time Status Last Admin Dose Admin Acetaminophen (Tylenol) 650 mg Q4H PRN GT Mild Pain (Pain Scale 1-3) 12/31/19 07:45 01/30/20 07:44 Acetaminophen (Tylenol) 650 mg Q4H PRN GT Temp >100.5 12/31/19 07:45 01/30/20 07:44 Al Hydroxide/Mg Hydroxide (Mylanta) 30 ml QIDPRN PRN GT stomach upset 12/31/19 08:00 01/30/20 07:59 Artificial Tears (Akwa-Tears) 1 drop EVERY 12 HOURS BOTH EYES 01/07/20 21:00 01/30/20 10:59 01/08/20 08:56 Atorvastatin Calcium (Lipitor) 80 mg BEDTIME GT 12/31/19 21:00 03/30/20 20:59 01/06/20 20:49 Chlorhexidine Gluconate (Sheela-Hex 2%) 1 applic DAILY@2000 TOPIC 01/02/20 20:00 04/01/20 19:59 01/07/20 20:22 Dextrose (Dextrose 50%) 25 ml Q30M PRN IV Hypoglycemia 12/31/19 08:45 01/30/20 08:37 01/06/20 10:32 Dextrose (Dextrose 50%) 50 ml Q30M PRN IV hypoglycemia 12/31/19 08:45 03/30/20 08:44 01/06/20 05:36 Insulin Aspart (NovoLOG) No Dose Q6HR SUBQ 12/31/19 12:00 03/30/20 11:59 01/07/20 18:16 Insulin Detemir (Levemir) 25 units Q12HR SUBQ 12/31/19 10:00 03/30/20 09:59 01/08/20 08:58 Levofloxacin (Levaquin) 500 mg Q48H ORAL 01/03/20 12:00 01/10/20 11:59 01/07/20 12:18 Lorazepam (Ativan 2mg/ml 1ml) 1 mg Q2H PRN IV For Anxiety 01/03/20 18:00 01/10/20 17:59 01/03/20 17:57 Meropenem 500 mg/ Sodium Chloride 55 ml @ 110 mls/hr Q24H IVPB 01/03/20 11:00 01/09/20 23:59 01/07/20 12:19 Pantoprazole (Protonix) 40 mg Q12H IVP 01/02/20 21:00 02/01/20 20:59 01/08/20 08:56 Sodium Bicarbonate 50 ml/ Dextrose 1,050 ml @ 100 mls/hr [id number] IV 01/07/20 13:30 02/06/20 13:29 01/08/20 08:59 Sodium Hypochlorite (Dakin's Half Strength) 1 applic DAILY TOPIC 01/01/20 09:00 01/31/20 08:59 01/08/20 08:58 Zinc Sulfate (Zinc Sulfate) 220 mg DAILY GT 12/31/19 09:00 03/30/20 08:59 01/05/20 11:06 Assessment/Plan Assessment/Plan IMPRESSION chronic respiratory failure Acute on chronic renal failure elevated K anemia GIB leukocytosis possible sepsis oral bleeding PLAN monitor HH monitor wbc IV hydration iv antibiotics ID , GI and renal vent as is EGD monitor vitals hold feeds snf meds full code prognosis very poor for recovery impression, plan, and exam edited and reviewed in detail care discussed with Lorenzo Chase MD January 08, 2020 09:23
--- NOTE | 2020-01-08 09:38 | Pre-Procedure Note/Attestation ---
Pre-Procedure Note/Attestation Complete Prior to Procedure Planned Procedure: not applicable Procedure Narrative: egd/peg Indications for Procedure Pre-Operative Diagnosis: dysphagia Attestation I attest that I discussed the nature of the procedure; its benefits; risks and complications; and alternatives (and the risks and benefits of such alternatives ), prior to the procedure, with the patient (or the patient's legal logistics service representative). I attest that, if there was a reasonable possibility of needing a blood transfusion, the patient (or the patient's legal logistics service representative) was given the [facility] standardized written summary, pursuant to the Renan Anil Blood Safety Act ([place] Health and Safety Code # 1645, as amended). I attest that I re-evaluated the patient just prior to the surgery and that there has been no change in the patient's H&P, except as documented below: Toni Mckenzie MD January 08, 2020 09:38
[2020-01-08] MEDS ORDERED: fentaNYL 100 mcg/2 mL IV ONE (10:00)
[2020-01-08] MEDS: Meropenem 500 MG in NS 55 ML IVPB SCH (10:05)
--- NOTE | 2020-01-08 10:34 | Immediate Post-Op Evaluation ---
Immediate Post-Op Evalulation Immediate Post-Op Evalulation Procedure: EGD PEG tube replacement Date of Evaluation: January 08, 2020 Time of Evaluation: 10:33 IV Fluids: 100 Blood Products: none Estimated Blood Loss: min Urinary Output: none Blood Pressure Systolic: 136 Blood Pressure Diastolic: 72 Pulse Rate: 68 Respiratory Rate: 18 O2 Sat by Pulse Oximetry: 98 Temperature (Fahrenheit): 97.2 Pain Score (1-10): 1 Nausea: No Vomiting: No Complications none Patient Status: no response, ventilated, none Hydration Status: adequate Tam Fatima MD January 08, 2020 10:34
--- NOTE | 2020-01-08 10:38 | Infectious Diseases Prog Note ---
"Assessment/Plan Assessment/Plan antibiotics : meropenem, levoquin A 1. e.coli | klebsiella | pseudomonas pneumonia 2. renal failure 3. respiratory failure 4. intracranial hemorrhage 5. paraplegia 6. leucocytosis improving 7. COVID 19 test negative x 2 P 1. continue meropenem, levoquin 1 more day 2. will follow up cultures 3. dc right groin catheter Subjective ROS Limited/Unobtainable: Yes Allergies: Coded Allergies: No Known Allergies (Unverified , 10/07/19) Objective Vital Signs Last 24 Hour Vital Signs Date Time Temp Pulse Resp B/P (MAP) Pulse Ox O2 Delivery O2 Flow Rate FiO2 01/08/20 10:34 68 18 98 01/08/20 07:25 96.1 71 24 134/77 (96) 99 01/08/20 04:00 Mechanical Ventilator 01/08/20 04:00 94.5 69 24 150/81 (104) 99 01/08/20 04:00 40 01/08/20 03:32 68 01/08/20 02:58 67 29 40 01/08/20 00:00 Mechanical Ventilator 01/08/20 00:00 66 01/08/20 00:00 93.4 69 24 148/62 (90) 98 01/08/20 00:00 40 01/07/20 22:43 68 27 40 01/07/20 20:49 68 27 40 01/07/20 20:00 Mechanical Ventilator 01/07/20 20:00 40 01/07/20 20:00 68 01/07/20 19:50 93.8 69 25 153/83 (106) 97 01/07/20 19:01 70 28 40 01/07/20 18:00 Mechanical Ventilator 01/07/20 17:24 76 28 40 01/07/20 16:00 90.7 71 31 153/78 (103) 100 01/07/20 16:00 40 01/07/20 16:00 Mechanical Ventilator 01/07/20 15:23 69 01/07/20 14:36 76 29 40 01/07/20 13:27 71 27 40 01/07/20 13:13 78 18 98 01/07/20 13:11 68 20 98 01/07/20 12:33 69 01/07/20 12:00 40 01/07/20 12:00 90.7 70 27 157/84 (108) 97 01/07/20 12:00 Mechanical Ventilator 01/07/20 10:46 68 27 40 Height (Feet): 5 Height (Inches): 5.00 Weight (Pounds): 182 Respiratory/Chest: lungs clear Cardiovascular: normal rate, regular rhythm, no gallop/murmur Abdomen: soft, non tender, other - GT Extremities: no edema, other - right groin catheter Microbiology Date/Time Source Procedure Growth Status 01/06/20 09:30 Stool Clostridium difficile Toxin Assay - Final Complete Laboratory Tests Test 01/08/20 04:50 White Blood Count 24.2 K/UL (4.8-10.8) *H Red Blood Count 2.72 M/UL (4.70-6.10) L Hemoglobin 8.1 G/DL (14.2-18.0) L Hematocrit 23.2 % (42.0-52.0) L Mean Corpuscular Volume 85 FL (80-99) Mean Corpuscular Hemoglobin 29.8 PG (27.0-31.0) Mean Corpuscular Hemoglobin Concent 34.8 G/DL (32.0-36.0) Red Cell Distribution Width 13.9 % (11.6-14.8) Platelet Count 47 K/UL (150-450) L Mean Platelet Volume 7.4 FL (6.5-10.1) Neutrophils (%) (Auto) % (45.0-75.0) Lymphocytes (%) (Auto) % (20.0-45.0) Monocytes (%) (Auto) % (1.0-10.0) Eosinophils (%) (Auto) % (0.0-3.0) Basophils (%) (Auto) % (0.0-2.0) Differential Total Cells Counted 100 Neutrophils % (Manual) 92 % (45-75) H Lymphocytes % (Manual) 2 % (20-45) L Monocytes % (Manual) 4 % (1-10) Eosinophils % (Manual) 2 % (0-3) Basophils % (Manual) 0 % (0-2) Band Neutrophils 0 % (0-8) Platelet Estimate Decreased L Platelet Morphology Normal Hypochromasia 1+ Sodium Level 143 MMOL/L (136-145) Potassium Level 3.6 MMOL/L (3.5-5.1) Chloride Level 109 MMOL/L (98-107) H Carbon Dioxide Level 16 MMOL/L (21-32) L Anion Gap 18 mmol/L (5-15) H Blood Urea Nitrogen 145 mg/dL (7-18) H Creatinine 4.4 MG/DL (0.55-1.30) H Estimat Glomerular Filtration Rate 17.1 mL/min (>60) Glucose Level 163 MG/DL (74-106) H Calcium Level 8.1 MG/DL (8.5-10.1) L Current Medications Medications (Trade) Dose Ordered Sig/[place] Route PRN Reason Start Time Stop Time Status Last Admin Dose Admin Acetaminophen (Tylenol) 650 mg Q4H PRN GT Mild Pain (Pain Scale 1-3) 12/31/19 07:45 01/30/20 07:44 Acetaminophen (Tylenol) 650 mg Q4H PRN GT Temp >100.5 12/31/19 07:45 01/30/20 07:44 Al Hydroxide/Mg Hydroxide (Mylanta) 30 ml QIDPRN PRN GT stomach upset 12/31/19 08:00 01/30/20 07:59 Artificial Tears (Akwa-Tears) 1 drop EVERY 12 HOURS BOTH EYES 01/07/20 21:00 01/30/20 10:59 01/08/20 08:56 Atorvastatin Calcium (Lipitor) 80 mg BEDTIME GT 12/31/19 21:00 03/30/20 20:59 01/06/20 20:49 Chlorhexidine Gluconate (Sheela-Hex 2%) 1 applic DAILY@2000 TOPIC 01/02/20 20:00 04/01/20 19:59 01/07/20 20:22 Dextrose (Dextrose 50%) 25 ml Q30M PRN IV Hypoglycemia 12/31/19 08:45 01/30/20 08:37 01/06/20 10:32 Dextrose (Dextrose 50%) 50 ml Q30M PRN IV hypoglycemia 12/31/19 08:45 03/30/20 08:44 01/06/20 05:36 Insulin Aspart (NovoLOG) No Dose Q6HR SUBQ 12/31/19 12:00 03/30/20 11:59 01/07/20 18:16 Insulin Detemir (Levemir) 25 units Q12HR SUBQ 12/31/19 10:00 03/30/20 09:59 01/08/20 08:58 Levofloxacin (Levaquin) 500 mg Q48H ORAL 01/03/20 12:00 01/10/20 11:59 01/07/20 12:18 Lorazepam (Ativan 2mg/ml 1ml) 1 mg Q2H PRN IV For Anxiety 01/03/20 18:00 01/10/20 17:59 01/03/20 17:57 Meropenem 500 mg/ Sodium Chloride 55 ml @ 110 mls/hr Q24H IVPB 01/03/20 11:00 01/09/20 23:59 01/08/20 10:05 Pantoprazole (Protonix) 40 mg Q12H IVP 01/02/20 21:00 02/01/20 20:59 01/08/20 08:56 Sodium Bicarbonate 50 ml/ Dextrose 1,050 ml @ 100 mls/hr [id number] IV 01/07/20 13:30 02/06/20 13:29 01/08/20 08:59 Sodium Hypochlorite (Dakin's Half Strength) 1 applic DAILY TOPIC 01/01/20 09:00 01/31/20 08:59 01/08/20 08:58 Zinc Sulfate (Zinc Sulfate) 220 mg DAILY GT 12/31/19 09:00 03/30/20 08:59 01/05/20 11:06 Tony Apple MD January 08, 2020 10:38"
--- NOTE | 2020-01-08 11:09 | Endoscopy Procedure Note ---
Endoscopy Procedure Note General Indication for Procedure: dysphagia Procedures Performed: EGD, PEG Operative Findings/Diagnosis: same Specimen: none Pt Tolerated Procedure Well: Yes Estimated Blood Loss: none Anesthesia Anesthesiologist: humberto Anesthesia: MAC Inserted Devices Implant(s) used?: No GI Core Measures 50 yrs or older w/o bx or poly: Not Applicable 10yrs. F/U recommended: Not Applicable Toni Mckenzie MD January 08, 2020 11:09
[2020-01-08 12:00] VITALS: BP 128/65
--- NOTE | 2020-01-08 12:21 | 48 Hour Post Anesthesia Eval ---
Post Anesthesia Evaluation Procedure: EGD PEG tube replacement Date of Evaluation: January 08, 2020 Time of Evaluation: 12:19 Blood Pressure Systolic: 124 0: 56 Pulse Rate: 72 Respiratory Rate: 18 Temperature (Fahrenheit): 97.1 O2 Sat by Pulse Oximetry: 98 Airway: other - trach Nausea: No Vomiting: No Pain Intensity: 1 Hydration Status: adequate Cardiopulmonary Status: stable Mental Status/LOC: patient returned to baseline Follow-up Care/Observations: n/a Post-Anesthesia Complications: none Follow-up care needed: N/A Tam Fatima MD January 08, 2020 12:20
--- NOTE | 2020-01-08 12:26 | Nephrology Progress Note ---
Assessment/Plan Problem List: (1) Respiratory failure (2) ARF (acute renal failure) (3) Hyponatremia (4) Hyperkalemia (5) Upper GI bleed (6) Pressure sore on sacrum Plan continue iv fluids,BUN/creatinine 70/.91 11/2019, bicarb for acidosis Subjective ROS Limited/Unobtainable: Yes Objective Objective Last 24 Hour Vital Signs Date Time Temp Pulse Resp B/P (MAP) Pulse Ox O2 Delivery O2 Flow Rate FiO2 01/08/20 12:20 72 18 98 01/08/20 12:00 96.4 68 24 128/65 (86) 98 01/08/20 12:00 40 01/08/20 12:00 Mechanical Ventilator 01/08/20 10:34 68 18 98 01/08/20 08:00 69 01/08/20 08:00 Mechanical Ventilator 01/08/20 08:00 40 01/08/20 07:25 96.1 71 24 134/77 (96) 99 01/08/20 04:00 Mechanical Ventilator 01/08/20 04:00 94.5 69 24 150/81 (104) 99 01/08/20 04:00 40 01/08/20 03:32 68 01/08/20 02:58 67 29 40 01/08/20 00:00 Mechanical Ventilator 01/08/20 00:00 66 01/08/20 00:00 93.4 69 24 148/62 (90) 98 01/08/20 00:00 40 01/07/20 22:43 68 27 40 01/07/20 20:49 68 27 40 01/07/20 20:00 Mechanical Ventilator 01/07/20 20:00 40 01/07/20 20:00 68 01/07/20 19:50 93.8 69 25 153/83 (106) 97 01/07/20 19:01 70 28 40 01/07/20 18:00 Mechanical Ventilator 01/07/20 17:24 76 28 40 01/07/20 16:00 90.7 71 31 153/78 (103) 100 01/07/20 16:00 40 01/07/20 16:00 Mechanical Ventilator 01/07/20 15:23 69 01/07/20 14:36 76 29 40 01/07/20 13:27 71 27 40 01/07/20 13:13 78 18 98 01/07/20 13:11 68 20 98 01/07/20 12:33 69 Intake and Output 01/07/20 01/08/20 19:00 07:00 Intake Total 593.333 ml 1199 ml Output Total 710 ml 500 ml Balance -116.667 ml 699 ml IV Total 593.333 ml 1199 ml Output Urine Total 700 ml 500 ml Stool Total 10 ml # Bowel Movements 1 4 Laboratory Tests 01/08/20 04:50: White Blood Count 24.2*H, Red Blood Count 2.72L, Hemoglobin 8.1L, Hematocrit 23.2L, Mean Corpuscular Volume 85, Mean Corpuscular Hemoglobin 29.8, Mean Corpuscular Hemoglobin Concent 34.8, Red Cell Distribution Width 13.9, Platelet Count 47L, Mean Platelet Volume 7.4, Neutrophils (%) (Auto) , Lymphocytes (%) ( Auto) , Monocytes (%) (Auto) , Eosinophils (%) (Auto) , Basophils (%) (Auto) , Differential Total Cells Counted 100, Neutrophils % (Manual) 92H, Lymphocytes % (Manual) 2L, Monocytes % (Manual) 4, Eosinophils % (Manual) 2, Basophils % ( Manual) 0, Band Neutrophils 0, Platelet Estimate DecreasedL, Platelet Morphology Normal, Hypochromasia 1+, Sodium Level 143, Potassium Level 3.6, Chloride Level 109H, Carbon Dioxide Level 16L, Anion Gap 18H, Blood Urea Nitrogen 145H, Creatinine 4.4H, Estimat Glomerular Filtration Rate 17.1, Glucose Level 163H, Calcium Level 8.1L Height (Feet): 5 Height (Inches): 5.00 Weight (Pounds): 182 General Appearance: lethargic, other - on vent Cardiovascular: regular rhythm Respiratory/Chest: crackles/rales Abdomen: non tender Extremities: no edema Neurologic: unresponsive Martin Yee MD January 08, 2020 12:26
[2020-01-08 15:35] VITALS: BP 115/63
--- NOTE | 2020-01-08 17:30 | Surgery Progress Note ---
Surgery Progress Note Subjective Procedure Performed right femoral central venous catheter insertion Additional Comments EGD pending results 1. Two or three gastric AVMs. 2. Ulcer with a small visible vessel, status post gold probe bipolar cauterization. Objective Last 24 Hour Vital Signs Date Time Temp Pulse Resp B/P (MAP) Pulse Ox O2 Delivery O2 Flow Rate FiO2 01/08/20 16:00 Mechanical Ventilator 01/08/20 16:00 68 01/08/20 16:00 40 01/08/20 15:35 96.8 68 24 115/63 (80) 98 01/08/20 12:20 72 18 98 01/08/20 12:00 96.4 68 24 128/65 (86) 98 01/08/20 12:00 40 01/08/20 12:00 Mechanical Ventilator 01/08/20 11:47 67 01/08/20 10:34 68 18 98 01/08/20 08:00 69 01/08/20 08:00 Mechanical Ventilator 01/08/20 08:00 40 01/08/20 07:25 96.1 71 24 134/77 (96) 99 01/08/20 04:00 Mechanical Ventilator 01/08/20 04:00 94.5 69 24 150/81 (104) 99 01/08/20 04:00 40 01/08/20 03:32 68 01/08/20 02:58 67 29 40 01/08/20 00:00 Mechanical Ventilator 01/08/20 00:00 66 01/08/20 00:00 93.4 69 24 148/62 (90) 98 01/08/20 00:00 40 01/07/20 22:43 68 27 40 01/07/20 20:49 68 27 40 01/07/20 20:00 Mechanical Ventilator 01/07/20 20:00 40 01/07/20 20:00 68 01/07/20 19:50 93.8 69 25 153/83 (106) 97 01/07/20 19:01 70 28 40 01/07/20 18:00 Mechanical Ventilator I&O Intake and Output 01/07/20 01/08/20 19:00 07:00 Intake Total 593.333 ml 1199 ml Output Total 710 ml 500 ml Balance -116.667 ml 699 ml IV Total 593.333 ml 1199 ml Output Urine Total 700 ml 500 ml Stool Total 10 ml # Bowel Movements 1 4 Dressing: other Wound: other Drains: none Cardiovascular: RSR Respiratory: decreased breath sounds Abdomen: non-tender, present bowel sounds Extremities: no cyanosis Laboratory Tests Test 01/08/20 04:50 White Blood Count 24.2 K/UL (4.8-10.8) *H Red Blood Count 2.72 M/UL (4.70-6.10) L Hemoglobin 8.1 G/DL (14.2-18.0) L Hematocrit 23.2 % (42.0-52.0) L Mean Corpuscular Volume 85 FL (80-99) Mean Corpuscular Hemoglobin 29.8 PG (27.0-31.0) Mean Corpuscular Hemoglobin Concent 34.8 G/DL (32.0-36.0) Red Cell Distribution Width 13.9 % (11.6-14.8) Platelet Count 47 K/UL (150-450) L Mean Platelet Volume 7.4 FL (6.5-10.1) Neutrophils (%) (Auto) % (45.0-75.0) Lymphocytes (%) (Auto) % (20.0-45.0) Monocytes (%) (Auto) % (1.0-10.0) Eosinophils (%) (Auto) % (0.0-3.0) Basophils (%) (Auto) % (0.0-2.0) Differential Total Cells Counted 100 Neutrophils % (Manual) 92 % (45-75) H Lymphocytes % (Manual) 2 % (20-45) L Monocytes % (Manual) 4 % (1-10) Eosinophils % (Manual) 2 % (0-3) Basophils % (Manual) 0 % (0-2) Band Neutrophils 0 % (0-8) Platelet Estimate Decreased L Platelet Morphology Normal Hypochromasia 1+ Sodium Level 143 MMOL/L (136-145) Potassium Level 3.6 MMOL/L (3.5-5.1) Chloride Level 109 MMOL/L (98-107) H Carbon Dioxide Level 16 MMOL/L (21-32) L Anion Gap 18 mmol/L (5-15) H Blood Urea Nitrogen 145 mg/dL (7-18) H Creatinine 4.4 MG/DL (0.55-1.30) H Estimat Glomerular Filtration Rate 17.1 mL/min (>60) Glucose Level 163 MG/DL (74-106) H Calcium Level 8.1 MG/DL (8.5-10.1) L Plan Problems: (1) Hyponatremia (2) ARF (acute renal failure) (3) Hyperkalemia (4) Pressure sore on sacrum Assessment & Plan: Pt presented on admission with Sacral Pressure injury and Necrosis Both Both R lower ext, R foot and L foot. Generalized edema noted. Both upper ext noted to have multiple serous blisters ,some of which are weeping serous exudate. Full thickness Sacral Pressure Injury with undermined Borders. Base of wound is 75% loose necrotic tissue,25% bree. Bone exposure at base of wound. Area of necrosis noted at distal aspect of wound in space between wound and anus.Edges are macerated. Wound is malodorous.(L)9.5cm x (W)9.2cm x (D)2.9cm,undermining clockwise 10-3 by 3.8cm @12 o'clock. Scattered areas of hyperpigmentation noted to R and L clefts of buttocks. Unable to determine exudate as pt is continuously oozing large amt of semi soft black stool and leaking into wound because of close proximity to his rectum. At upper, R gluteal cheek is additional Pressure Injury with small amt Biofilm at base of wound. Edges are pink and adherent to base of wound. No exudate noted.(L)3cm x (W)2.6cm. Medially to distal Tibia,and extending to R foot is necrotic and malodorous.Wound is partially opened at posterior R tibia but is dry . L foot is necrotic and malodorous. No exudate noted. Tx.Plan: Cleanse Sacral wound with Dakin's 0.25% jose.. Loosely Pack wound with Dakin's moistened Kerlix.Apply Moisture Barrier Paste periwound.Cover with Optifoam drsg.Change Daily and PRN. Cleanse R lower ext and R foot with Dakin's 0.25% Ojse. Cover wounds with ABD Pads.Wrap with Kerlix Daily and prn. Cleanse L foot Wounds with Dakin's 0.25% Jose. Cover wounds with ABD Pads and wrap with Kerlix Daily and prn. (5) Upper GI bleed Assessment & Plan: Patient with sepsis, abnormal labs, GI bleed, pending COVID eval. Labs noted. Exam reviewed. Chest x-ray noted as below. Discussed with GI. Plan for endoscopy once COVID status evaluated. Trend hemoglobin for now transfuse PRN. G-tube is functional and okay for medications and will plan tube feeds accordingly. No acute surgical intervention as patient is actively bleeding. Proton pump inhibitor recommended and Rx as written. Will follow with recommendations thank you for let me participate in patient's care There is a tracheostomy in place. Vascularity is normal. Hazy densities in the lung bases may be layering effusions. Cardiac and mediastinal silhouette are within normal limits. The bony thorax appear unremarkable. IMPRESSION: Bibasilar hazy densities perhaps layering effusions. right fem line not functional noted manipulation as suture was dislodged. line replaced 1. Two or three gastric AVMs. 2. Ulcer with a small visible vessel, status post gold probe bipolar cauterization. Javid Singh January 08, 2020 17:30
--- NOTE | 2020-01-08 17:45 | Procedure Note ---
DATE OF PROCEDURE: 01/08/2020 SURGEON: Toni Mckenzie M.D. PROCEDURE: Upper endoscopy with PEG placement. ANESTHESIA: Per Dr. Fatima. INSTRUMENT: Olympus adult flexible upper endoscope. INDICATION: Dysphagia. REASON FOR PROCEDURE: The procedure, risks, benefits, and possible consequences, including hemorrhage, aspiration, perforation and infection, and alternative treatments, were explained to the patient/legal guardian by Dr. Toni Mckenzie and the patient/legal guardian understood and accepted these risks. DESCRIPTION OF PROCEDURE: After informed consent was obtained and patient was adequately sedated, Olympus upper endoscope was advanced from mouth into the second portion of the duodenum and retroflexion was performed in the stomach. The patient had AVM in the proximal body of the stomach. G-tube was not in the proper place, it was actually under the skin. So, old G-tube was removed and then under endoscopic guidance under sterile condition, a 20-Tamazight pull type of G-tube was successfully placed. Distance from the tip of the tube to skin was about 3 cm in size. The patient tolerated procedure very well without any complications. SUMMARY OF FINDINGS: Status post successful PEG placement. RECOMMENDATIONS: 1. Abdominal binder. 2. Elevate the head of the bed at all times. 3. G-tube flush. 4. G-tube care. 5. Start tube feeding later today. I want to thank, Dr. De Dios, for this kind referral kind referral. Toni Mckenzie M.D. DR: Florentin JOB#: [id number] CC: Lorenzo De Dios M.D.; Fax#: [phone]
[2020-01-08 20:00] VITALS: BP 122/69
[2020-01-08] MEDS: Atorvastatin 80mg tab GT SCH (22:06)
[2020-01-08] MEDS: Dyna-Hex 2% Top Sol 2oz TOPIC SCH (22:17)
[2020-01-09] VITALS: BP 124/64
[2020-01-09 04:00] VITALS: BP 122/63
[2020-01-09] MEDS: Insulin NovoLOG Flexpen S/S (Mod) SUBQ SCH ×3 (06:00→17:22)
[2020-01-09] MEDS: Sodium Bicarbonate 50 ML in D5W 1000ml 1,000 ML IV SCH ×3 (06:29→10:59)
[2020-01-09 08:00] VITALS: BP 124/71
[2020-01-09] MEDS: Levemir Flexpen SUBQ SCH ×2 (08:04→20:09)
[2020-01-09] MEDS: Zinc Sulfate 220mg GT SCH (08:11)
[2020-01-09] MEDS: Dakin's 0.25% (Half Strength) 16oz TOPIC SCH (08:11)
[2020-01-09] MEDS: Pantoprazole Inj IVP SCH ×2 (08:29→20:14)
--- NOTE | 2020-01-09 08:54 | Pulmonology Progress Note ---
Subjective ROS Limited/Unobtainable: Yes Constitutional: Denies: fever Gastrointestinal/Abdominal: Reports: diarrhea Allergies: Coded Allergies: No Known Allergies (Unverified , 10/07/19) All Systems: reviewed and negative except above Subjective care noted on vent wbc not improving renal function poor for EGD Objective Last 24 Hour Vital Signs Date Time Temp Pulse Resp B/P (MAP) Pulse Ox O2 Delivery O2 Flow Rate FiO2 01/09/20 08:00 97.2 73 20 124/71 (88) 95 01/09/20 08:00 Mechanical Ventilator 01/09/20 08:00 40 01/09/20 04:00 40 01/09/20 04:00 97.0 82 26 122/63 (82) 99 01/09/20 04:00 Mechanical Ventilator 01/09/20 03:29 77 01/09/20 03:18 77 26 40 01/09/20 00:00 96.7 80 24 124/64 (84) 97 01/09/20 00:00 40 01/09/20 00:00 Mechanical Ventilator 01/08/20 23:43 78 01/08/20 22:56 74 25 40 01/08/20 20:00 68 01/08/20 20:00 96.6 70 24 122/69 (86) 97 01/08/20 19:01 71 26 40 01/08/20 17:30 69 24 40 01/08/20 16:00 Mechanical Ventilator 01/08/20 16:00 68 01/08/20 16:00 40 01/08/20 15:35 96.8 68 24 115/63 (80) 98 01/08/20 14:44 68 28 40 01/08/20 12:33 70 28 40 01/08/20 12:20 72 18 98 01/08/20 12:00 96.4 68 24 128/65 (86) 98 01/08/20 12:00 40 01/08/20 12:00 Mechanical Ventilator 01/08/20 11:47 67 01/08/20 10:38 67 24 40 01/08/20 10:34 68 18 98 01/08/20 08:59 68 18 40 Intake and Output 01/08/20 01/09/20 19:00 07:00 Intake Total 1455 ml 1400 ml Output Total 400 ml Balance 1055 ml 1400 ml Intake Free Water 50 ml 130 ml IV Total 1255 ml 1000 ml Tube Feeding 150 ml 270 ml Output Urine Total 400 ml # Bowel Movements 2 Objective WDWN trach clear breath sounds bilaterally without rhonchi or wheeze [id number] without MRG NABS nontender no HSM no CCE poor LOC reviewed and edited Microbiology Date/Time Source Procedure Growth Status 01/06/20 09:30 Stool Clostridium difficile Toxin Assay - Final Complete Current Medications Medications (Trade) Dose Ordered Sig/[place] Route PRN Reason Start Time Stop Time Status Last Admin Dose Admin Acetaminophen (Tylenol) 650 mg Q4H PRN GT Mild Pain (Pain Scale 1-3) 12/31/19 07:45 01/30/20 07:44 Acetaminophen (Tylenol) 650 mg Q4H PRN GT Temp >100.5 12/31/19 07:45 01/30/20 07:44 Al Hydroxide/Mg Hydroxide (Mylanta) 30 ml QIDPRN PRN GT stomach upset 12/31/19 08:00 01/30/20 07:59 Artificial Tears (Akwa-Tears) 1 drop EVERY 12 HOURS BOTH EYES 01/07/20 21:00 01/30/20 10:59 01/09/20 08:11 Atorvastatin Calcium (Lipitor) 80 mg BEDTIME GT 12/31/19 21:00 03/30/20 20:59 01/08/20 22:06 Chlorhexidine Gluconate (Sheela-Hex 2%) 1 applic DAILY@2000 TOPIC 01/02/20 20:00 04/01/20 19:59 01/08/20 22:17 Dextrose (Dextrose 50%) 25 ml Q30M PRN IV Hypoglycemia 12/31/19 08:45 01/30/20 08:37 01/06/20 10:32 Dextrose (Dextrose 50%) 50 ml Q30M PRN IV hypoglycemia 12/31/19 08:45 03/30/20 08:44 01/06/20 05:36 Insulin Aspart (NovoLOG) No Dose Q6HR SUBQ 12/31/19 12:00 03/30/20 11:59 01/07/20 18:16 Insulin Detemir (Levemir) 25 units Q12HR SUBQ 12/31/19 10:00 03/30/20 09:59 01/08/20 08:58 Levofloxacin (Levaquin) 500 mg Q48H ORAL 01/03/20 12:00 01/10/20 11:59 01/07/20 12:18 Lorazepam (Ativan 2mg/ml 1ml) 1 mg Q2H PRN IV For Anxiety 01/03/20 18:00 01/10/20 17:59 01/03/20 17:57 Meropenem 500 mg/ Sodium Chloride 55 ml @ 110 mls/hr Q24H IVPB 01/03/20 11:00 01/09/20 23:59 01/08/20 10:05 Pantoprazole (Protonix) 40 mg Q12H IVP 01/02/20 21:00 02/01/20 20:59 01/09/20 08:29 Sodium Bicarbonate 50 ml/ Dextrose 1,050 ml @ 100 mls/hr [id number] IV 01/07/20 13:30 02/06/20 13:29 01/08/20 21:00 Sodium Hypochlorite (Dakin's Half Strength) 1 applic DAILY TOPIC 01/01/20 09:00 01/31/20 08:59 01/09/20 08:11 Zinc Sulfate (Zinc Sulfate) 220 mg DAILY GT 12/31/19 09:00 03/30/20 08:59 01/09/20 08:11 Assessment/Plan Assessment/Plan IMPRESSION chronic respiratory failure Acute on chronic renal failure elevated K anemia GIB leukocytosis possible sepsis oral bleeding PLAN monitor HH monitor wbc IV hydration iv antibiotics ID , GI and renal vent as is EGD monitor vitals hold feeds snf meds full code prognosis very poor for recovery impression, plan, and exam edited and reviewed in detail care discussed with Lorenzo Chase MD January 09, 2020 08:54
--- NOTE | 2020-01-09 09:46 | General Progress Note ---
Assessment/Plan Assessment/Plan: sepsis anemia GIB thrombocytopenia hyponatremia ARF DM dysphagia with GT s/p EGD/PEG on GTF no recurrent bleed will fu Subjective ROS Limited/Unobtainable: No Allergies: Coded Allergies: No Known Allergies (Unverified , 10/07/19) Objective Last 24 Hour Vital Signs Date Time Temp Pulse Resp B/P (MAP) Pulse Ox O2 Delivery O2 Flow Rate FiO2 01/09/20 08:00 72 01/09/20 08:00 97.2 73 20 124/71 (88) 95 01/09/20 08:00 Mechanical Ventilator 01/09/20 08:00 40 01/09/20 07:24 74 27 40 01/09/20 04:00 40 01/09/20 04:00 97.0 82 26 122/63 (82) 99 01/09/20 04:00 Mechanical Ventilator 01/09/20 03:29 77 01/09/20 03:18 77 26 40 01/09/20 00:00 96.7 80 24 124/64 (84) 97 01/09/20 00:00 40 01/09/20 00:00 Mechanical Ventilator 01/08/20 23:43 78 01/08/20 22:56 74 25 40 01/08/20 20:00 68 01/08/20 20:00 96.6 70 24 122/69 (86) 97 01/08/20 19:01 71 26 40 01/08/20 17:30 69 24 40 01/08/20 16:00 Mechanical Ventilator 01/08/20 16:00 68 01/08/20 16:00 40 01/08/20 15:35 96.8 68 24 115/63 (80) 98 01/08/20 14:44 68 28 40 01/08/20 12:33 70 28 40 01/08/20 12:20 72 18 98 01/08/20 12:00 96.4 68 24 128/65 (86) 98 01/08/20 12:00 40 01/08/20 12:00 Mechanical Ventilator 01/08/20 11:47 67 01/08/20 10:38 67 24 40 01/08/20 10:34 68 18 98 Intake and Output 01/08/20 01/09/20 19:00 07:00 Intake Total 1455 ml 1400 ml Output Total 400 ml Balance 1055 ml 1400 ml Intake Free Water 50 ml 130 ml IV Total 1255 ml 1000 ml Tube Feeding 150 ml 270 ml Output Urine Total 400 ml # Bowel Movements 2 Height (Feet): 5 Height (Inches): 5.00 Weight (Pounds): 160 General Appearance: lethargic EENT: normal ENT inspection Neck: supple Cardiovascular: tachycardia Respiratory/Chest: decreased breath sounds Abdomen: normal bowel sounds, non tender, soft Extremities: non-tender Toni Mckenzie MD January 09, 2020 09:46
[2020-01-09] MEDS: Meropenem 500 MG in NS 55 ML IVPB SCH (10:18)
--- NOTE | 2020-01-09 10:30 | Surgery Progress Note ---
Surgery Progress Note Subjective Procedure Performed right femoral central venous catheter insertion Additional Comments s/p peg and egd exam stable comfortable no n/v/f/c Objective Last 24 Hour Vital Signs Date Time Temp Pulse Resp B/P (MAP) Pulse Ox O2 Delivery O2 Flow Rate FiO2 01/09/20 08:00 72 01/09/20 08:00 97.2 73 20 124/71 (88) 95 01/09/20 08:00 Mechanical Ventilator 01/09/20 08:00 40 01/09/20 07:24 74 27 40 01/09/20 04:00 40 01/09/20 04:00 97.0 82 26 122/63 (82) 99 01/09/20 04:00 Mechanical Ventilator 01/09/20 03:29 77 01/09/20 03:18 77 26 40 01/09/20 00:00 96.7 80 24 124/64 (84) 97 01/09/20 00:00 40 01/09/20 00:00 Mechanical Ventilator 01/08/20 23:43 78 01/08/20 22:56 74 25 40 01/08/20 20:00 68 01/08/20 20:00 96.6 70 24 122/69 (86) 97 01/08/20 19:01 71 26 40 01/08/20 17:30 69 24 40 01/08/20 16:00 Mechanical Ventilator 01/08/20 16:00 68 01/08/20 16:00 40 01/08/20 15:35 96.8 68 24 115/63 (80) 98 01/08/20 14:44 68 28 40 01/08/20 12:33 70 28 40 01/08/20 12:20 72 18 98 01/08/20 12:00 96.4 68 24 128/65 (86) 98 01/08/20 12:00 40 01/08/20 12:00 Mechanical Ventilator 01/08/20 11:47 67 01/08/20 10:38 67 24 40 01/08/20 10:34 68 18 98 I&O Intake and Output 01/08/20 01/09/20 19:00 07:00 Intake Total 1455 ml 1400 ml Output Total 400 ml Balance 1055 ml 1400 ml Intake Free Water 50 ml 130 ml IV Total 1255 ml 1000 ml Tube Feeding 150 ml 270 ml Output Urine Total 400 ml # Bowel Movements 2 Dressing: other Wound: other Drains: other Cardiovascular: RSR Respiratory: decreased breath sounds Abdomen: soft, non-tender, present bowel sounds Extremities: no cyanosis Plan Problems: (1) Hyponatremia (2) ARF (acute renal failure) (3) Hyperkalemia (4) Pressure sore on sacrum Assessment & Plan: Pt presented on admission with Sacral Pressure injury and Necrosis Both Both R lower ext, R foot and L foot. Generalized edema noted. Both upper ext noted to have multiple serous blisters ,some of which are weeping serous exudate. Full thickness Sacral Pressure Injury with undermined Borders. Base of wound is 75% loose necrotic tissue,25% bree. Bone exposure at base of wound. Area of necrosis noted at distal aspect of wound in space between wound and anus.Edges are macerated. Wound is malodorous.(L)9.5cm x (W)9.2cm x (D)2.9cm,undermining clockwise 10-3 by 3.8cm @12 o'clock. Scattered areas of hyperpigmentation noted to R and L clefts of buttocks. Unable to determine exudate as pt is continuously oozing large amt of semi soft black stool and leaking into wound because of close proximity to his rectum. At upper, R gluteal cheek is additional Pressure Injury with small amt Biofilm at base of wound. Edges are pink and adherent to base of wound. No exudate noted.(L)3cm x (W)2.6cm. Medially to distal Tibia,and extending to R foot is necrotic and malodorous.Wound is partially opened at posterior R tibia but is dry . L foot is necrotic and malodorous. No exudate noted. Tx.Plan: Cleanse Sacral wound with Dakin's 0.25% jose.. Loosely Pack wound with Dakin's moistened Kerlix.Apply Moisture Barrier Paste periwound.Cover with Optifoam drsg.Change Daily and PRN. Cleanse R lower ext and R foot with Dakin's 0.25% Jose. Cover wounds with ABD Pads.Wrap with Kerlix Daily and prn. Cleanse L foot Wounds with Dakin's 0.25% Jose. Cover wounds with ABD Pads and wrap with Kerlix Daily and prn. (5) Upper GI bleed Assessment & Plan: Patient with sepsis, abnormal labs, GI bleed, pending COVID eval. Labs noted. Exam reviewed. Chest x-ray noted as below. Discussed with GI. Plan for endoscopy once COVID status evaluated. Trend hemoglobin for now transfuse PRN. G-tube is functional and okay for medications and will plan tube feeds accordingly. No acute surgical intervention as patient is actively bleeding. Proton pump inhibitor recommended and Rx as written. Will follow with recommendations thank you for let me participate in patient's care There is a tracheostomy in place. Vascularity is normal. Hazy densities in the lung bases may be layering effusions. Cardiac and mediastinal silhouette are within normal limits. The bony thorax appear unremarkable. IMPRESSION: Bibasilar hazy densities perhaps layering effusions. right fem line not functional noted manipulation as suture was dislodged. line replaced 1. Two or three gastric AVMs. 2. Ulcer with a small visible vessel, status post gold probe bipolar cauterization. Javid Singh January 09, 2020 10:30
--- NOTE | 2020-01-09 10:44 | Nephrology Progress Note ---
Assessment/Plan Problem List: (1) Respiratory failure (2) ARF (acute renal failure) (3) Hyponatremia (4) Hyperkalemia (5) Upper GI bleed (6) Pressure sore on sacrum Plan continue iv fluids,BUN/creatinine 70/.91 11/2019, bicarb for acidosis Subjective ROS Limited/Unobtainable: Yes Objective Objective Last 24 Hour Vital Signs Date Time Temp Pulse Resp B/P (MAP) Pulse Ox O2 Delivery O2 Flow Rate FiO2 01/09/20 08:00 72 01/09/20 08:00 97.2 73 20 124/71 (88) 95 01/09/20 08:00 Mechanical Ventilator 01/09/20 08:00 40 01/09/20 07:24 74 27 40 01/09/20 04:00 40 01/09/20 04:00 97.0 82 26 122/63 (82) 99 01/09/20 04:00 Mechanical Ventilator 01/09/20 03:29 77 01/09/20 03:18 77 26 40 01/09/20 00:00 96.7 80 24 124/64 (84) 97 01/09/20 00:00 40 01/09/20 00:00 Mechanical Ventilator 01/08/20 23:43 78 01/08/20 22:56 74 25 40 01/08/20 20:00 68 01/08/20 20:00 96.6 70 24 122/69 (86) 97 01/08/20 19:01 71 26 40 01/08/20 17:30 69 24 40 01/08/20 16:00 Mechanical Ventilator 01/08/20 16:00 68 01/08/20 16:00 40 01/08/20 15:35 96.8 68 24 115/63 (80) 98 01/08/20 14:44 68 28 40 01/08/20 12:33 70 28 40 01/08/20 12:20 72 18 98 01/08/20 12:00 96.4 68 24 128/65 (86) 98 01/08/20 12:00 40 01/08/20 12:00 Mechanical Ventilator 01/08/20 11:47 67 Intake and Output 01/08/20 01/09/20 19:00 07:00 Intake Total 1455 ml 1400 ml Output Total 400 ml Balance 1055 ml 1400 ml Intake Free Water 50 ml 130 ml IV Total 1255 ml 1000 ml Tube Feeding 150 ml 270 ml Output Urine Total 400 ml # Bowel Movements 2 Height (Feet): 5 Height (Inches): 5.00 Weight (Pounds): 160 General Appearance: lethargic, other - on vent Cardiovascular: regular rhythm Respiratory/Chest: rhonchi - bilaterally Extremities: trace edema Neurologic: unresponsive Martin Yee MD January 09, 2020 10:43
--- NOTE | 2020-01-09 10:55 | Infectious Diseases Prog Note ---
Assessment/Plan Assessment/Plan A 1. E. coli, Klebsiella & Pseudomonas pneumonia 2. Acute renal failure 3. Ventilator dependent respiratory failure 4. intracranial hemorrhage 5. paraplegia 6. leucocytosis 7. GI bleeding 8. Anemia 9. COVID 19 test X 2: negative 10- Leukocytosis 11. Thrombocytopenia P 1. Discontinue Meropenem & Levaquin Subjective ROS Limited/Unobtainable: Yes Constitutional: Reports: other - on warming blanket Allergies: Coded Allergies: No Known Allergies (Unverified , 10/07/19) Objective Vital Signs Last 24 Hour Vital Signs Date Time Temp Pulse Resp B/P (MAP) Pulse Ox O2 Delivery O2 Flow Rate FiO2 01/09/20 08:00 72 01/09/20 08:00 97.2 73 20 124/71 (88) 95 01/09/20 08:00 Mechanical Ventilator 01/09/20 08:00 40 01/09/20 07:24 74 27 40 01/09/20 04:00 40 01/09/20 04:00 97.0 82 26 122/63 (82) 99 01/09/20 04:00 Mechanical Ventilator 01/09/20 03:29 77 01/09/20 03:18 77 26 40 01/09/20 00:00 96.7 80 24 124/64 (84) 97 01/09/20 00:00 40 01/09/20 00:00 Mechanical Ventilator 01/08/20 23:43 78 01/08/20 22:56 74 25 40 01/08/20 20:00 68 01/08/20 20:00 96.6 70 24 122/69 (86) 97 01/08/20 19:01 71 26 40 01/08/20 17:30 69 24 40 01/08/20 16:00 Mechanical Ventilator 01/08/20 16:00 68 01/08/20 16:00 40 01/08/20 15:35 96.8 68 24 115/63 (80) 98 01/08/20 14:44 68 28 40 01/08/20 12:33 70 28 40 01/08/20 12:20 72 18 98 01/08/20 12:00 96.4 68 24 128/65 (86) 98 01/08/20 12:00 40 01/08/20 12:00 Mechanical Ventilator 01/08/20 11:47 67 Height (Feet): 5 Height (Inches): 5.00 Weight (Pounds): 160 HEENT: status post trach Respiratory/Chest: lungs clear, other - on ventilator Cardiovascular: normal rate Abdomen: soft, non tender, other - GT in placece Extremities: other - severe edema Neurologic/Psychiatric: unresponsiveness Current Medications Medications (Trade) Dose Ordered Sig/[place] Route PRN Reason Start Time Stop Time Status Last Admin Dose Admin Acetaminophen (Tylenol) 650 mg Q4H PRN GT Mild Pain (Pain Scale 1-3) 12/31/19 07:45 01/30/20 07:44 Acetaminophen (Tylenol) 650 mg Q4H PRN GT Temp >100.5 12/31/19 07:45 01/30/20 07:44 Al Hydroxide/Mg Hydroxide (Mylanta) 30 ml QIDPRN PRN GT stomach upset 12/31/19 08:00 01/30/20 07:59 Artificial Tears (Akwa-Tears) 1 drop EVERY 12 HOURS BOTH EYES 01/07/20 21:00 01/30/20 10:59 01/09/20 08:11 Atorvastatin Calcium (Lipitor) 80 mg BEDTIME GT 12/31/19 21:00 03/30/20 20:59 01/08/20 22:06 Chlorhexidine Gluconate (Sheela-Hex 2%) 1 applic DAILY@1999 TOPIC 01/02/20 20:00 04/01/20 19:59 01/08/20 22:17 Dextrose (Dextrose 50%) 25 ml Q30M PRN IV Hypoglycemia 12/31/19 08:45 01/30/20 08:37 01/06/20 10:32 Dextrose (Dextrose 50%) 50 ml Q30M PRN IV hypoglycemia 12/31/19 08:45 03/30/20 08:44 01/06/20 05:36 Insulin Aspart (NovoLOG) No Dose Q6HR SUBQ 12/31/19 12:00 03/30/20 11:59 01/07/20 18:16 Insulin Detemir (Levemir) 25 units Q12HR SUBQ 12/31/19 10:00 03/30/20 09:59 01/08/20 08:58 Levofloxacin (Levaquin) 500 mg Q48H ORAL 01/03/20 12:00 01/10/20 11:59 01/07/20 12:18 Lorazepam (Ativan 2mg/ml 1ml) 1 mg Q2H PRN IV For Anxiety 01/03/20 18:00 01/10/20 17:59 01/03/20 17:57 Meropenem 500 mg/ Sodium Chloride 55 ml @ 110 mls/hr Q24H IVPB 01/03/20 11:00 01/09/20 23:59 01/09/20 10:18 Pantoprazole (Protonix) 40 mg Q12H IVP 01/02/20 21:00 02/01/20 20:59 01/09/20 08:29 Sodium Bicarbonate 50 ml/ Dextrose 1,050 ml @ 75 mls/hr Q14H IV 01/09/20 10:46 02/08/20 10:45 Sodium Hypochlorite (Dakin's Half Strength) 1 applic DAILY TOPIC 01/01/20 09:00 01/31/20 08:59 01/09/20 08:11 Zinc Sulfate (Zinc Sulfate) 220 mg DAILY GT 12/31/19 09:00 03/30/20 08:59 01/09/20 08:11 Anastacio Bustillo MD January 09, 2020 10:55
[2020-01-09 12:00] VITALS: BP 125/67
[2020-01-09] MEDS ORDERED: Vancomycin 1 GM in D5W 275 ML IVPB ONE (13:00)
[2020-01-09 16:00] VITALS: BP 122/72
[2020-01-09] MEDS: Metoclopramide 10mg/2ml Inj IVP SCH (18:56)
[2020-01-09 19:18] LABS: HEMATOCRIT 21.6 % (42.0-52.0); MEAN CORPUSCULAR VOLUME 93 FL (80-99); PLATELET COUNT 44 K/UL (150-450); RED BLOOD COUNT 2.33 M/UL (4.70-6.10); RED CELL DISTRIBUTION WIDTH 15.5 % (11.6-14.8)
[2020-01-09 19:32] LABS: HEMOGLOBIN 6.9 G/DL (14.2-18.0); WHITE BLOOD COUNT 22.9 K/UL (4.8-10.8)
[2020-01-09 20:00] VITALS: BP 147/79
[2020-01-09] MEDS: Atorvastatin 80mg tab GT SCH (20:05)
[2020-01-09] MEDS: Dyna-Hex 2% Top Sol 2oz TOPIC SCH (20:05)
[2020-01-10] VITALS: BP 147/82
[2020-01-10] MEDS: Sodium Bicarbonate 50 ML in D5W 1000ml 1,000 ML IV SCH ×2 (00:50→15:40)
[2020-01-10] MEDS: Metoclopramide 10mg/2ml Inj IVP SCH ×5 (00:50→23:24)
[2020-01-10 04:00] VITALS: BP 145/79
[2020-01-10 05:23] LABS: HEMATOCRIT 23.7 % (42.0-52.0); HEMOGLOBIN 8.1 G/DL (14.2-18.0); MEAN CORPUSCULAR VOLUME 85 FL (80-99); PLATELET COUNT 45 K/UL (150-450); RED BLOOD COUNT 2.78 M/UL (4.70-6.10); RED CELL DISTRIBUTION WIDTH 13.5 % (11.6-14.8)
[2020-01-10 05:43] LABS: WHITE BLOOD COUNT 40.3 K/UL (4.8-10.8)
[2020-01-10 05:47] LABS: ANION GAP 15 mmol/L (5-15); BLOOD UREA NITROGEN 137 mg/dL (7-18); CALCIUM 8.6 MG/DL (8.5-10.1); CARBON DIOXIDE 19 MMOL/L (21-32); CHLORIDE 103 MMOL/L (98-107); CREATININE 4.3 MG/DL (0.55-1.30); POTASSIUM 3.3 MMOL/L (3.5-5.1); SODIUM 137 MMOL/L (136-145)
[2020-01-10] MEDS: Insulin NovoLOG Flexpen S/S (Mod) SUBQ SCH ×4 (06:00→17:30)
[2020-01-10 06:49] LABS: INR 1.4 (0.9-1.1)
[2020-01-10 08:00] VITALS: BP 134/75
--- NOTE | 2020-01-10 08:45 | Pulmonology Progress Note ---
Subjective ROS Limited/Unobtainable: Yes Constitutional: Reports: other - on warming blanket Gastrointestinal/Abdominal: Reports: diarrhea Allergies: Coded Allergies: No Known Allergies (Unverified , 10/07/19) All Systems: reviewed and negative except above Subjective care noted on vent HH dropped and transfused renal function poor Objective Last 24 Hour Vital Signs Date Time Temp Pulse Resp B/P (MAP) Pulse Ox O2 Delivery O2 Flow Rate FiO2 01/10/20 08:00 40 01/10/20 08:00 97.2 67 24 134/75 (94) 96 01/10/20 07:15 66 26 40 01/10/20 04:00 Mechanical Ventilator 01/10/20 04:00 97.2 77 24 145/79 (101) 100 01/10/20 04:00 40 01/10/20 04:00 76 01/10/20 03:28 73 27 40 01/10/20 00:00 97.4 82 22 147/82 (103) 96 01/10/20 00:00 78 01/10/20 00:00 Mechanical Ventilator 01/09/20 23:25 79 29 40 01/09/20 20:00 97.3 81 22 147/79 (101) 95 01/09/20 20:00 Mechanical Ventilator 01/09/20 20:00 40 01/09/20 19:22 89 01/09/20 19:00 85 30 40 01/09/20 16:00 Mechanical Ventilator 01/09/20 16:00 97.2 83 20 122/72 (89) 95 01/09/20 16:00 40 01/09/20 16:00 82 01/09/20 15:28 81 27 40 01/09/20 12:00 Mechanical Ventilator 01/09/20 12:00 97.3 73 20 125/67 (86) 97 01/09/20 12:00 72 01/09/20 12:00 40 01/09/20 11:23 72 26 40 Intake and Output 01/09/20 01/10/20 18:59 06:59 Intake Total 830 ml 1278.75 ml Output Total 700 ml 600 ml Balance 130 ml 678.75 ml Intake Free Water 400 ml 120 ml IV Total 898.75 ml Tube Feeding 430 ml 10 ml Blood Product 250 ml Output Urine Total 700 ml 600 ml # Bowel Movements 4 3 Objective WDWN trach clear breath sounds bilaterally without rhonchi or wheeze [id number] without MRG NABS nontender no HSM no CCE poor LOC reviewed and edited Laboratory Tests 01/09/20 18:35: White Blood Count 22.9*H, Red Blood Count 2.33L, Hemoglobin 6.9*L, Hematocrit 21.6L, Mean Corpuscular Volume 93, Mean Corpuscular Hemoglobin 29.4, Mean Corpuscular Hemoglobin Concent 31.8L, Red Cell Distribution Width 15.5H, Platelet Count 44L, Mean Platelet Volume 16.0H, Neutrophils (%) (Auto) , Lymphocytes (%) (Auto) , Monocytes (%) (Auto) , Eosinophils (%) (Auto) , Basophils (%) (Auto) , Differential Total Cells Counted 100, Neutrophils % ( Manual) 92H, Lymphocytes % (Manual) 2L, Monocytes % (Manual) 3, Eosinophils % ( Manual) 3, Basophils % (Manual) 0, Band Neutrophils 0, Platelet Estimate DecreasedL, Platelet Morphology Normal, Hypochromasia 1+ 01/10/20 03:00: Stool Occult Blood [Pending] 01/10/20 04:00: White Blood Count 40.3#*H, Red Blood Count 2.78L, Hemoglobin 8.1L, Hematocrit 23.7L, Mean Corpuscular Volume 85#, Mean Corpuscular Hemoglobin 29.3, Mean Corpuscular Hemoglobin Concent 34.3, Red Cell Distribution Width 13.5, Platelet Count 45L, Mean Platelet Volume 13.4H, Neutrophils (%) (Auto) , Lymphocytes (%) (Auto) , Monocytes (%) (Auto) , Eosinophils (%) (Auto) , Basophils (%) (Auto) , Differential Total Cells Counted 100, Neutrophils % (Manual) 93H, Lymphocytes % (Manual) 3L, Monocytes % (Manual) 4, Eosinophils % (Manual) 0, Basophils % ( Manual) 0, Band Neutrophils 0, Platelet Estimate DecreasedL, Platelet Morphology Normal, Sodium Level 137, Potassium Level 3.3L, Chloride Level 103, Carbon Dioxide Level 19L, Anion Gap 15, Blood Urea Nitrogen 137H, Creatinine 4.3H, Estimat Glomerular Filtration Rate 17.6, Glucose Level 164H, Calcium Level 8.6 01/10/20 06:15: Prothrombin Time 15.3H, Prothromb Time International Ratio 1.4H, Lactic Acid Level 0.90 Current Medications Medications (Trade) Dose Ordered Sig/[place] Route PRN Reason Start Time Stop Time Status Last Admin Dose Admin Acetaminophen (Tylenol) 650 mg Q4H PRN GT Mild Pain (Pain Scale 1-3) 12/31/19 07:45 01/30/20 07:44 Acetaminophen (Tylenol) 650 mg Q4H PRN GT Temp >100.5 12/31/19 07:45 01/30/20 07:44 Al Hydroxide/Mg Hydroxide (Mylanta) 30 ml QIDPRN PRN GT stomach upset 12/31/19 08:00 01/30/20 07:59 Artificial Tears (Akwa-Tears) 1 drop EVERY 12 HOURS BOTH EYES 01/07/20 21:00 01/30/20 10:59 01/09/20 20:06 Atorvastatin Calcium (Lipitor) 80 mg BEDTIME GT 12/31/19 21:00 03/30/20 20:59 01/09/20 20:05 Chlorhexidine Gluconate (Sheela-Hex 2%) 1 applic DAILY@2000 TOPIC 01/02/20 20:00 04/01/20 19:59 01/09/20 20:05 Dextrose (Dextrose 50%) 25 ml Q30M PRN IV Hypoglycemia 12/31/19 08:45 01/30/20 08:37 01/06/20 10:32 Dextrose (Dextrose 50%) 50 ml Q30M PRN IV hypoglycemia 12/31/19 08:45 03/30/20 08:44 01/06/20 05:36 Insulin Aspart (NovoLOG) No Dose Q6HR SUBQ 12/31/19 12:00 03/30/20 11:59 01/07/20 18:16 Insulin Detemir (Levemir) 25 units Q12HR SUBQ 12/31/19 10:00 03/30/20 09:59 01/09/20 20:09 Lorazepam (Ativan 2mg/ml 1ml) 1 mg Q2H PRN IV For Anxiety 01/03/20 18:00 01/10/20 17:59 01/03/20 17:57 Metoclopramide HCl (Reglan) 10 mg Q6H IVP 01/09/20 18:00 02/08/20 17:59 01/10/20 00:50 Pantoprazole (Protonix) 40 mg Q12H IVP 01/02/20 21:00 02/01/20 20:59 01/09/20 20:14 Sodium Bicarbonate 50 ml/ Dextrose 1,050 ml @ 75 mls/hr Q14H IV 01/09/20 10:46 02/08/20 10:45 01/10/20 00:50 Sodium Hypochlorite (Dakin's Half Strength) 1 applic DAILY TOPIC 01/01/20 09:00 01/31/20 08:59 01/09/20 08:11 Zinc Sulfate (Zinc Sulfate) 220 mg DAILY GT 12/31/19 09:00 03/30/20 08:59 01/09/20 08:11 Assessment/Plan Assessment/Plan IMPRESSION chronic respiratory failure Acute on chronic renal failure elevated K anemia GIB leukocytosis possible sepsis oral bleeding PLAN monitor HH- transfuse as needed monitor wbc IV hydration iv antibiotics ID , GI and renal vent as is monitor vitals hold feeds snf meds full code prognosis very poor for recovery difficult to optimize impression, plan, and exam edited and reviewed in detail care discussed with Lorenzo Chase MD January 10, 2020 08:45
[2020-01-10] MEDS: Pantoprazole Inj IVP SCH ×2 (08:53→20:26)
[2020-01-10] MEDS: Zinc Sulfate 220mg GT SCH (08:54)
[2020-01-10] MEDS: Levemir Flexpen SUBQ SCH ×3 (08:57→20:53)
[2020-01-10] MEDS: Dakin's 0.25% (Half Strength) 16oz TOPIC SCH (08:57)
--- NOTE | 2020-01-10 10:19 | Infectious Diseases Prog Note ---
"Assessment/Plan Assessment/Plan antibiotics : none A 1. e.coli | klebsiella | pseudomonas pneumonia s/p rx 2. renal failure 3. respiratory failure 4. intracranial hemorrhage 5. paraplegia 6. leucocytosis increased 7. COVID 19 test negative x 2 P 1. start po vancomycin 2. blood culture 3. sputum culture 4. stool for c.diff 5. will follow up cultures 3. dc right groin catheter Subjective ROS Limited/Unobtainable: Yes Allergies: Coded Allergies: No Known Allergies (Unverified , 10/07/19) Objective Vital Signs Last 24 Hour Vital Signs Date Time Temp Pulse Resp B/P (MAP) Pulse Ox O2 Delivery O2 Flow Rate FiO2 01/10/20 08:00 40 01/10/20 08:00 97.2 67 24 134/75 (94) 96 01/10/20 07:15 66 26 40 01/10/20 04:00 Mechanical Ventilator 01/10/20 04:00 97.2 77 24 145/79 (101) 100 01/10/20 04:00 40 01/10/20 04:00 76 01/10/20 03:28 73 27 40 01/10/20 00:00 97.4 82 22 147/82 (103) 96 01/10/20 00:00 78 01/10/20 00:00 Mechanical Ventilator 01/09/20 23:25 79 29 40 01/09/20 20:00 97.3 81 22 147/79 (101) 95 01/09/20 20:00 Mechanical Ventilator 01/09/20 20:00 40 01/09/20 19:22 89 01/09/20 19:00 85 30 40 01/09/20 16:00 Mechanical Ventilator 01/09/20 16:00 97.2 83 20 122/72 (89) 95 01/09/20 16:00 40 01/09/20 16:00 82 01/09/20 15:28 81 27 40 01/09/20 12:00 Mechanical Ventilator 01/09/20 12:00 97.3 73 20 125/67 (86) 97 01/09/20 12:00 72 01/09/20 12:00 40 01/09/20 11:23 72 26 40 Height (Feet): 5 Height (Inches): 5.00 Weight (Pounds): 177 HEENT: status post trach Respiratory/Chest: lungs clear Cardiovascular: normal rate, regular rhythm, no gallop/murmur Abdomen: soft, non tender Extremities: no edema Laboratory Tests Test 01/09/20 18:35 01/10/20 03:00 01/10/20 04:00 01/10/20 06:15 White Blood Count 22.9 K/UL (4.8-10.8) *H 40.3 K/UL (4.8-10.8) #*H Red Blood Count 2.33 M/UL (4.70-6.10) L 2.78 M/UL (4.70-6.10) L Hemoglobin 6.9 G/DL (14.2-18.0) *L 8.1 G/DL (14.2-18.0) L Hematocrit 21.6 % (42.0-52.0) L 23.7 % (42.0-52.0) L Mean Corpuscular Volume 93 FL (80-99) 85 FL (80-99) # Mean Corpuscular Hemoglobin 29.4 PG (27.0-31.0) 29.3 PG (27.0-31.0) Mean Corpuscular Hemoglobin Concent 31.8 G/DL (32.0-36.0) L 34.3 G/DL (32.0-36.0) Red Cell Distribution Width 15.5 % (11.6-14.8) H 13.5 % (11.6-14.8) Platelet Count 44 K/UL (150-450) L 45 K/UL (150-450) L Mean Platelet Volume 16.0 FL (6.5-10.1) H 13.4 FL (6.5-10.1) H Neutrophils (%) (Auto) % (45.0-75.0) % (45.0-75.0) Lymphocytes (%) (Auto) % (20.0-45.0) % (20.0-45.0) Monocytes (%) (Auto) % (1.0-10.0) % (1.0-10.0) Eosinophils (%) (Auto) % (0.0-3.0) % (0.0-3.0) Basophils (%) (Auto) % (0.0-2.0) % (0.0-2.0) Differential Total Cells Counted 100 100 Neutrophils % (Manual) 92 % (45-75) H 93 % (45-75) H Lymphocytes % (Manual) 2 % (20-45) L 3 % (20-45) L Monocytes % (Manual) 3 % (1-10) 4 % (1-10) Eosinophils % (Manual) 3 % (0-3) 0 % (0-3) Basophils % (Manual) 0 % (0-2) 0 % (0-2) Band Neutrophils 0 % (0-8) 0 % (0-8) Platelet Estimate Decreased L Decreased L Platelet Morphology Normal Normal Hypochromasia 1+ Stool Occult Blood Positive (NEGATIVE) Sodium Level 137 MMOL/L (136-145) Potassium Level 3.3 MMOL/L (3.5-5.1) L Chloride Level 103 MMOL/L (98-107) Carbon Dioxide Level 19 MMOL/L (21-32) L Anion Gap 15 mmol/L (5-15) Blood Urea Nitrogen 137 mg/dL (7-18) H Creatinine 4.3 MG/DL (0.55-1.30) H Estimat Glomerular Filtration Rate 17.6 mL/min (>60) Glucose Level 164 MG/DL (74-106) H Calcium Level 8.6 MG/DL (8.5-10.1) Prothrombin Time 15.3 SEC (9.30-11.50) H Prothromb Time International Ratio 1.4 (0.9-1.1) H Lactic Acid Level 0.90 mmol/L (0.4-2.0) Current Medications Medications (Trade) Dose Ordered Sig/[place] Route PRN Reason Start Time Stop Time Status Last Admin Dose Admin Acetaminophen (Tylenol) 650 mg Q4H PRN GT Mild Pain (Pain Scale 1-3) 12/31/19 07:45 01/30/20 07:44 Acetaminophen (Tylenol) 650 mg Q4H PRN GT Temp >100.5 12/31/19 07:45 01/30/20 07:44 Al Hydroxide/Mg Hydroxide (Mylanta) 30 ml QIDPRN PRN GT stomach upset 12/31/19 08:00 01/30/20 07:59 Artificial Tears (Akwa-Tears) 1 drop EVERY 12 HOURS BOTH EYES 01/07/20 21:00 01/30/20 10:59 01/10/20 08:55 Atorvastatin Calcium (Lipitor) 80 mg BEDTIME GT 12/31/19 21:00 03/30/20 20:59 01/09/20 20:05 Chlorhexidine Gluconate (Sheela-Hex 2%) 1 applic DAILY@2000 TOPIC 01/02/20 20:00 04/01/20 19:59 01/09/20 20:05 Dextrose (Dextrose 50%) 25 ml Q30M PRN IV Hypoglycemia 12/31/19 08:45 01/30/20 08:37 01/06/20 10:32 Dextrose (Dextrose 50%) 50 ml Q30M PRN IV hypoglycemia 12/31/19 08:45 03/30/20 08:44 01/06/20 05:36 Insulin Aspart (NovoLOG) No Dose Q6HR SUBQ 12/31/19 12:00 03/30/20 11:59 01/07/20 18:16 Insulin Detemir (Levemir) 25 units Q12HR SUBQ 12/31/19 10:00 03/30/20 09:59 01/10/20 09:20 Lorazepam (Ativan 2mg/ml 1ml) 1 mg Q2H PRN IV For Anxiety 01/03/20 18:00 01/10/20 17:59 01/03/20 17:57 Metoclopramide HCl (Reglan) 10 mg Q6H IVP 01/09/20 18:00 02/08/20 17:59 01/10/20 00:50 Pantoprazole (Protonix) 40 mg Q12H IVP 01/02/20 21:00 02/01/20 20:59 01/10/20 08:53 Sodium Bicarbonate 50 ml/ Dextrose 1,050 ml @ 75 mls/hr Q14H IV 01/09/20 10:46 02/08/20 10:45 01/10/20 00:50 Sodium Hypochlorite (Dakin's Half Strength) 1 applic DAILY TOPIC 01/01/20 09:00 01/31/20 08:59 01/10/20 08:57 Zinc Sulfate (Zinc Sulfate) 220 mg DAILY GT 12/31/19 09:00 03/30/20 08:59 01/10/20 08:54 Tony Apple MD January 10, 2020 10:19"
--- NOTE | 2020-01-10 11:58 | Hematology/Onc Progress Note ---
Assessment/Plan Assessment/Plan Assessment and recs # Thrombocytopenia - potential causes multifactorial, evaluate liver and viral etiologies to begin, also could be related to underlying medications patient has received. May be due to DIC in this case, or consumption --> Hep panel and HIV negative --> US abd to evaluate for cirrhosis and hsm --> neg for cirrhosis and hsm --> Peripheral smear ordered to evaluate for blasts /schistocytes --> abx and other meds have been reviewed --> ok for ppx if plt >50k w/ either heparin or lovenox --> Transfuse if Plt < 20k and fever, or if Plt < 10k without fever --> plt trend 41-->32-->21k-->20 -->61k-->45 --> plt transfusion 01/04 --> for sepsis is on abx # Anemia due to Upper GI bleed, hematuria --> no evidence of hemolysis is noted --> smear noted --> anemia panel reviewed, ferritin high --> no iron or epo needed --> po iron ok --> for hematuria as per urology --> Pending endoscopy when clear from covid19 --> hgb trend: 9.1 ->8.3->6.9-->8.1 --> prbc: 2 units 01/02, # Leukocytosis due to e/coli/kleb pna --> on connor/wilma--> vanc --> wbc trend 23-->32 # Hyperkalemia --> kayxelate as needed --> k trend # ARF (acute renal failure) --> per renal # Hyponatremia # Gram negative pneumonia # Ventilator dependent respiratory failure # intracranial hemorrhage # paraplegia # Dysphagia with gtube The timing of this note does not necessarily reflect the time of the patient was seen. Greatly appreciate consultation. Subjective Gastrointestinal/Abdominal: Denies: no symptoms, abdomen distended, abdominal pain, black stools, tarry stools, blood in stool, constipated, diarrhea, difficulty swallowing, nausea, poor appetite, poor fluid intake, rectal bleeding , vomiting, other Neurologic/Psychiatric: Denies: no symptoms, anxiety, depressed, emotional problems, headache, numbness, paresthesia, pre-existing deficit, seizure, tingling, tremors, weakness, other Endocrine: Denies: no symptoms, excessive sweating, flushing, intolerance to cold, intolerance to heat, increased hunger, increased thirst, increased urine, unexplained weight gain, unexplained weight loss, other Allergies: Coded Allergies: No Known Allergies (Unverified , 10/07/19) Subjective 01/03obtunded, s/p rbc x2, hgb improved to 9.1, us abd reviewed, hematuria+ 01/04 plt are better, got 1 unit pf platets today as well, plt now 61k, less gi bleed overnight, some black tarry stool noted 01/05 nv, labs noted, hgb 8.5, no hemolysis noted, no bleeding, plt 83, egd tomorrow 01/06 egd for this am, results are pending, labs noted 01/09 no major changes, labs noted, no bleeding wbc higher, on abx Objective Objective Current Medications Medications (Trade) Dose Ordered Sig/[place] Route PRN Reason Start Time Stop Time Status Last Admin Dose Admin Acetaminophen (Tylenol) 650 mg Q4H PRN GT Mild Pain (Pain Scale 1-3) 12/31/19 07:45 01/30/20 07:44 Acetaminophen (Tylenol) 650 mg Q4H PRN GT Temp >100.5 12/31/19 07:45 01/30/20 07:44 Al Hydroxide/Mg Hydroxide (Mylanta) 30 ml QIDPRN PRN GT stomach upset 12/31/19 08:00 01/30/20 07:59 Artificial Tears (Akwa-Tears) 1 drop EVERY 12 HOURS BOTH EYES 01/07/20 21:00 01/30/20 10:59 01/10/20 08:55 Atorvastatin Calcium (Lipitor) 80 mg BEDTIME GT 12/31/19 21:00 03/30/20 20:59 01/09/20 20:05 Chlorhexidine Gluconate (Sheela-Hex 2%) 1 applic DAILY@1999 TOPIC 01/02/20 20:00 04/01/20 19:59 01/09/20 20:05 Dextrose (Dextrose 50%) 25 ml Q30M PRN IV Hypoglycemia 12/31/19 08:45 01/30/20 08:37 01/06/20 10:32 Dextrose (Dextrose 50%) 50 ml Q30M PRN IV hypoglycemia 12/31/19 08:45 03/30/20 08:44 01/06/20 05:36 Insulin Aspart (NovoLOG) No Dose Q6HR SUBQ 12/31/19 12:00 03/30/20 11:59 01/07/20 18:16 Insulin Detemir (Levemir) 25 units Q12HR SUBQ 12/31/19 10:00 03/30/20 09:59 01/10/20 09:20 Lorazepam (Ativan 2mg/ml 1ml) 1 mg Q2H PRN IV For Anxiety 01/03/20 18:00 01/10/20 17:59 01/03/20 17:57 Metoclopramide HCl (Reglan) 10 mg Q6H IVP 01/09/20 18:00 02/08/20 17:59 01/10/20 00:50 Pantoprazole (Protonix) 40 mg Q12H IVP 01/02/20 21:00 02/01/20 20:59 01/10/20 08:53 Sodium Bicarbonate 50 ml/ Dextrose 1,050 ml @ 75 mls/hr Q14H IV 01/09/20 10:46 02/08/20 10:45 01/10/20 00:50 Sodium Hypochlorite (Dakin's Half Strength) 1 applic DAILY TOPIC 01/01/20 09:00 01/31/20 08:59 01/10/20 08:57 Vancomycin HCl (Firvanq) 125 mg FOUR TIMES A DAY ORAL 01/10/20 13:00 01/17/20 12:59 Zinc Sulfate (Zinc Sulfate) 220 mg DAILY GT 12/31/19 09:00 03/30/20 08:59 01/10/20 08:54 Last 24 Hour Vital Signs Date Time Temp Pulse Resp B/P (MAP) Pulse Ox O2 Delivery O2 Flow Rate FiO2 01/10/20 11:10 72 26 40 01/10/20 08:00 Mechanical Ventilator 01/10/20 08:00 40 01/10/20 08:00 97.2 67 24 134/75 (94) 96 01/10/20 07:46 68 01/10/20 07:15 66 26 40 01/10/20 04:00 Mechanical Ventilator 01/10/20 04:00 97.2 77 24 145/79 (101) 100 01/10/20 04:00 40 01/10/20 04:00 76 01/10/20 03:28 73 27 40 01/10/20 00:00 97.4 82 22 147/82 (103) 96 01/10/20 00:00 78 01/10/20 00:00 Mechanical Ventilator 01/09/20 23:25 79 29 40 01/09/20 20:00 97.3 81 22 147/79 (101) 95 01/09/20 20:00 Mechanical Ventilator 01/09/20 20:00 40 01/09/20 19:22 89 01/09/20 19:00 85 30 40 01/09/20 16:00 Mechanical Ventilator 01/09/20 16:00 97.2 83 20 122/72 (89) 95 01/09/20 16:00 40 01/09/20 16:00 82 01/09/20 15:28 81 27 40 01/09/20 12:00 Mechanical Ventilator 01/09/20 12:00 97.3 73 20 125/67 (86) 97 01/09/20 12:00 72 01/09/20 12:00 40 01/09/20 11:23 72 26 40 01/09/20 08:00 72 01/09/20 08:00 97.2 73 20 124/71 (88) 95 01/09/20 08:00 Mechanical Ventilator 01/09/20 08:00 40 01/09/20 07:24 74 27 40 01/09/20 04:00 40 01/09/20 04:00 97.0 82 26 122/63 (82) 99 01/09/20 04:00 Mechanical Ventilator 01/09/20 03:29 77 01/09/20 03:18 77 26 40 01/09/20 00:00 96.7 80 24 124/64 (84) 97 01/09/20 00:00 40 01/09/20 00:00 Mechanical Ventilator 01/08/20 23:43 78 01/08/20 22:56 74 25 40 01/08/20 20:00 68 01/08/20 20:00 96.6 70 24 122/69 (86) 97 01/08/20 19:01 71 26 40 01/08/20 17:30 69 24 40 01/08/20 16:00 Mechanical Ventilator 01/08/20 16:00 68 5/27/20 16:00 40 01/08/20 15:35 96.8 68 24 115/63 (80) 98 01/08/20 14:44 68 28 40 01/08/20 12:33 70 28 40 01/08/20 12:20 72 18 98 01/08/20 12:00 96.4 68 24 128/65 (86) 98 01/08/20 12:00 40 01/08/20 12:00 Mechanical Ventilator Intake and Output 01/09/20 01/10/20 19:00 07:00 Intake Total 875 ml 1203.75 ml Output Total 700 ml 600 ml Balance 175 ml 603.75 ml Intake Free Water 400 ml 120 ml IV Total 75 ml 823.75 ml Tube Feeding 400 ml 10 ml Blood Product 250 ml Output Urine Total 700 ml 600 ml # Bowel Movements 4 3 Labs Test 01/08/20 04:50 01/09/20 18:35 01/10/20 03:00 01/10/20 04:00 White Blood Count 24.2 K/UL (4.8-10.8) 22.9 K/UL (4.8-10.8) 40.3 K/UL (4.8-10.8) Red Blood Count 2.72 M/UL (4.70-6.10) 2.33 M/UL (4.70-6.10) 2.78 M/UL (4.70-6.10) Hemoglobin 8.1 G/DL (14.2-18.0) 6.9 G/DL (14.2-18.0) 8.1 G/DL (14.2-18.0) Hematocrit 23.2 % (42.0-52.0) 21.6 % (42.0-52.0) 23.7 % (42.0-52.0) Mean Corpuscular Volume 85 FL (80-99) 93 FL (80-99) 85 FL (80-99) Mean Corpuscular Hemoglobin 29.8 PG (27.0-31.0) 29.4 PG (27.0-31.0) 29.3 PG (27.0-31.0) Mean Corpuscular Hemoglobin Concent 34.8 G/DL (32.0-36.0) 31.8 G/DL (32.0-36.0) 34.3 G/DL (32.0-36.0) Red Cell Distribution Width 13.9 % (11.6-14.8) 15.5 % (11.6-14.8) 13.5 % (11.6-14.8) Platelet Count 47 K/UL (150-450) 44 K/UL (150-450) 45 K/UL (150-450) Mean Platelet Volume 7.4 FL (6.5-10.1) 16.0 FL (6.5-10.1) 13.4 FL (6.5-10.1) Neutrophils (%) (Auto) % (45.0-75.0) % (45.0-75.0) % (45.0-75.0) Lymphocytes (%) (Auto) % (20.0-45.0) % (20.0-45.0) % (20.0-45.0) Monocytes (%) (Auto) % (1.0-10.0) % (1.0-10.0) % (1.0-10.0) Eosinophils (%) (Auto) % (0.0-3.0) % (0.0-3.0) % (0.0-3.0) Basophils (%) (Auto) % (0.0-2.0) % (0.0-2.0) % (0.0-2.0) Differential Total Cells Counted 100 100 100 Neutrophils % (Manual) 92 % (45-75) 92 % (45-75) 93 % (45-75) Lymphocytes % (Manual) 2 % (20-45) 2 % (20-45) 3 % (20-45) Monocytes % (Manual) 4 % (1-10) 3 % (1-10) 4 % (1-10) Eosinophils % (Manual) 2 % (0-3) 3 % (0-3) 0 % (0-3) Basophils % (Manual) 0 % (0-2) 0 % (0-2) 0 % (0-2) Band Neutrophils 0 % (0-8) 0 % (0-8) 0 % (0-8) Platelet Estimate Decreased Decreased Decreased Platelet Morphology Normal Normal Normal Hypochromasia 1+ 1+ Sodium Level 143 MMOL/L (136-145) 137 MMOL/L (136-145) Potassium Level 3.6 MMOL/L (3.5-5.1) 3.3 MMOL/L (3.5-5.1) Chloride Level 109 MMOL/L (98-107) 103 MMOL/L (98-107) Carbon Dioxide Level 16 MMOL/L (21-32) 19 MMOL/L (21-32) Anion Gap 18 mmol/L (5-15) 15 mmol/L (5-15) Blood Urea Nitrogen 145 mg/dL (7-18) 137 mg/dL (7-18) Creatinine 4.4 MG/DL (0.55-1.30) 4.3 MG/DL (0.55-1.30) Estimat Glomerular Filtration Rate 17.1 mL/min (>60) 17.6 mL/min (>60) Glucose Level 163 MG/DL (74-106) 164 MG/DL (74-106) Calcium Level 8.1 MG/DL (8.5-10.1) 8.6 MG/DL (8.5-10.1) Stool Occult Blood Positive (NEGATIVE) Test 01/10/20 06:15 Prothrombin Time 15.3 SEC (9.30-11.50) Prothromb Time International Ratio 1.4 (0.9-1.1) Lactic Acid Level 0.90 mmol/L (0.4-2.0) Height (Feet): 5 Height (Inches): 5.00 Weight (Pounds): 177 Objective Physical Exam: Vitals: reviewed General: NAD ++obtunded HEENT: nc, at, mouth guard+ Neck: supple++trach Chest: clear breath sounds bilaterally Cardiovascular: RRR, no s3, s4 Abdomen: soft, nontender, nd ++gtube Extremities: no cce, normal range of motion, ++ Spasticity in the left upper extremity. Flaccid on the right. Neuro: nonfocal : skinny+ Wilmer Turner MD January 10, 2020 11:58
[2020-01-10 12:00] VITALS: BP 133/107
--- NOTE | 2020-01-10 12:19 | General Progress Note ---
Assessment/Plan Assessment/Plan: sepsis anemia GIB thrombocytopenia hyponatremia ARF DM dysphagia with GT s/p EGD/PEG ? recurrent bleeding over night hold GTF ppi will fu Subjective ROS Limited/Unobtainable: No Allergies: Coded Allergies: No Known Allergies (Unverified , 10/07/19) Objective Last 24 Hour Vital Signs Date Time Temp Pulse Resp B/P (MAP) Pulse Ox O2 Delivery O2 Flow Rate FiO2 01/10/20 11:10 72 26 40 01/10/20 08:00 Mechanical Ventilator 01/10/20 08:00 40 01/10/20 08:00 97.2 67 24 134/75 (94) 96 01/10/20 07:46 68 01/10/20 07:15 66 26 40 01/10/20 04:00 Mechanical Ventilator 01/10/20 04:00 97.2 77 24 145/79 (101) 100 01/10/20 04:00 40 01/10/20 04:00 76 01/10/20 03:28 73 27 40 01/10/20 00:00 97.4 82 22 147/82 (103) 96 01/10/20 00:00 78 01/10/20 00:00 Mechanical Ventilator 01/09/20 23:25 79 29 40 01/09/20 20:00 97.3 81 22 147/79 (101) 95 01/09/20 20:00 Mechanical Ventilator 01/09/20 20:00 40 01/09/20 19:22 89 01/09/20 19:00 85 30 40 01/09/20 16:00 Mechanical Ventilator 01/09/20 16:00 97.2 83 20 122/72 (89) 95 01/09/20 16:00 40 01/09/20 16:00 82 01/09/20 15:28 81 27 40 Intake and Output 01/09/20 01/10/20 19:00 07:00 Intake Total 875 ml 1203.75 ml Output Total 700 ml 600 ml Balance 175 ml 603.75 ml Intake Free Water 400 ml 120 ml IV Total 75 ml 823.75 ml Tube Feeding 400 ml 10 ml Blood Product 250 ml Output Urine Total 700 ml 600 ml # Bowel Movements 4 3 Laboratory Tests 01/09/20 18:35: White Blood Count 22.9*H, Red Blood Count 2.33L, Hemoglobin 6.9*L, Hematocrit 21.6L, Mean Corpuscular Volume 93, Mean Corpuscular Hemoglobin 29.4, Mean Corpuscular Hemoglobin Concent 31.8L, Red Cell Distribution Width 15.5H, Platelet Count 44L, Mean Platelet Volume 16.0H, Neutrophils (%) (Auto) , Lymphocytes (%) (Auto) , Monocytes (%) (Auto) , Eosinophils (%) (Auto) , Basophils (%) (Auto) , Differential Total Cells Counted 100, Neutrophils % ( Manual) 92H, Lymphocytes % (Manual) 2L, Monocytes % (Manual) 3, Eosinophils % ( Manual) 3, Basophils % (Manual) 0, Band Neutrophils 0, Platelet Estimate DecreasedL, Platelet Morphology Normal, Hypochromasia 1+ 01/10/20 03:00: Stool Occult Blood Positive 01/10/20 04:00: White Blood Count 40.3#*H, Red Blood Count 2.78L, Hemoglobin 8.1L, Hematocrit 23.7L, Mean Corpuscular Volume 85#, Mean Corpuscular Hemoglobin 29.3, Mean Corpuscular Hemoglobin Concent 34.3, Red Cell Distribution Width 13.5, Platelet Count 45L, Mean Platelet Volume 13.4H, Neutrophils (%) (Auto) , Lymphocytes (%) (Auto) , Monocytes (%) (Auto) , Eosinophils (%) (Auto) , Basophils (%) (Auto) , Differential Total Cells Counted 100, Neutrophils % (Manual) 93H, Lymphocytes % (Manual) 3L, Monocytes % (Manual) 4, Eosinophils % (Manual) 0, Basophils % ( Manual) 0, Band Neutrophils 0, Platelet Estimate DecreasedL, Platelet Morphology Normal, Sodium Level 137, Potassium Level 3.3L, Chloride Level 103, Carbon Dioxide Level 19L, Anion Gap 15, Blood Urea Nitrogen 137H, Creatinine 4.3H, Estimat Glomerular Filtration Rate 17.6, Glucose Level 164H, Calcium Level 8.6 01/10/20 06:15: Prothrombin Time 15.3H, Prothromb Time International Ratio 1.4H, Lactic Acid Level 0.90 Height (Feet): 5 Height (Inches): 5.00 Weight (Pounds): 177 General Appearance: no apparent distress EENT: normal ENT inspection Neck: supple Cardiovascular: tachycardia Respiratory/Chest: decreased breath sounds Abdomen: non tender, soft Extremities: non-tender Vosoghi,Toni MD January 10, 2020 12:19
[2020-01-10] MEDS: Vancomycin oral 125mg/2.5ml ORAL SCH ×3 (13:11→20:21)
--- NOTE | 2020-01-10 15:32 | Surgery Progress Note ---
Surgery Progress Note Subjective Procedure Performed right femoral central venous catheter insertion Additional Comments worsening leukocytosis plt in the 40's exam unchanged c collar changed trach okay Objective Last 24 Hour Vital Signs Date Time Temp Pulse Resp B/P (MAP) Pulse Ox O2 Delivery O2 Flow Rate FiO2 01/10/20 12:00 Mechanical Ventilator 01/10/20 12:00 40 01/10/20 12:00 96.7 75 24 133/107 (116) 100 01/10/20 11:28 74 01/10/20 11:10 72 26 40 01/10/20 08:00 Mechanical Ventilator 01/10/20 08:00 40 01/10/20 08:00 97.2 67 24 134/75 (94) 96 01/10/20 07:46 68 01/10/20 07:15 66 26 40 01/10/20 04:00 Mechanical Ventilator 01/10/20 04:00 97.2 77 24 145/79 (101) 100 01/10/20 04:00 40 01/10/20 04:00 76 01/10/20 03:28 73 27 40 01/10/20 00:00 97.4 82 22 147/82 (103) 96 01/10/20 00:00 78 01/10/20 00:00 Mechanical Ventilator 01/09/20 23:25 79 29 40 01/09/20 20:00 97.3 81 22 147/79 (101) 95 01/09/20 20:00 Mechanical Ventilator 01/09/20 20:00 40 01/09/20 19:22 89 01/09/20 19:00 85 30 40 01/09/20 16:00 Mechanical Ventilator 01/09/20 16:00 97.2 83 20 122/72 (89) 95 01/09/20 16:00 40 01/09/20 16:00 82 I&O Intake and Output 01/09/20 01/10/20 19:00 07:00 Intake Total 875 ml 1278.75 ml Output Total 700 ml 600 ml Balance 175 ml 678.75 ml Intake Free Water 400 ml 120 ml IV Total 75 ml 898.75 ml Tube Feeding 400 ml 10 ml Blood Product 250 ml Output Urine Total 700 ml 600 ml # Bowel Movements 4 3 Dressing: other Wound: other Drains: other Cardiovascular: RSR Respiratory: decreased breath sounds Abdomen: soft, non-tender, present bowel sounds Extremities: no cyanosis Laboratory Tests Test 01/09/20 18:35 01/10/20 03:00 01/10/20 04:00 01/10/20 06:15 White Blood Count 22.9 K/UL (4.8-10.8) *H 40.3 K/UL (4.8-10.8) #*H Red Blood Count 2.33 M/UL (4.70-6.10) L 2.78 M/UL (4.70-6.10) L Hemoglobin 6.9 G/DL (14.2-18.0) *L 8.1 G/DL (14.2-18.0) L Hematocrit 21.6 % (42.0-52.0) L 23.7 % (42.0-52.0) L Mean Corpuscular Volume 93 FL (80-99) 85 FL (80-99) # Mean Corpuscular Hemoglobin 29.4 PG (27.0-31.0) 29.3 PG (27.0-31.0) Mean Corpuscular Hemoglobin Concent 31.8 G/DL (32.0-36.0) L 34.3 G/DL (32.0-36.0) Red Cell Distribution Width 15.5 % (11.6-14.8) H 13.5 % (11.6-14.8) Platelet Count 44 K/UL (150-450) L 45 K/UL (150-450) L Mean Platelet Volume 16.0 FL (6.5-10.1) H 13.4 FL (6.5-10.1) H Neutrophils (%) (Auto) % (45.0-75.0) % (45.0-75.0) Lymphocytes (%) (Auto) % (20.0-45.0) % (20.0-45.0) Monocytes (%) (Auto) % (1.0-10.0) % (1.0-10.0) Eosinophils (%) (Auto) % (0.0-3.0) % (0.0-3.0) Basophils (%) (Auto) % (0.0-2.0) % (0.0-2.0) Differential Total Cells Counted 100 100 Neutrophils % (Manual) 92 % (45-75) H 93 % (45-75) H Lymphocytes % (Manual) 2 % (20-45) L 3 % (20-45) L Monocytes % (Manual) 3 % (1-10) 4 % (1-10) Eosinophils % (Manual) 3 % (0-3) 0 % (0-3) Basophils % (Manual) 0 % (0-2) 0 % (0-2) Band Neutrophils 0 % (0-8) 0 % (0-8) Platelet Estimate Decreased L Decreased L Platelet Morphology Normal Normal Hypochromasia 1+ Stool Occult Blood Positive (NEGATIVE) Sodium Level 137 MMOL/L (136-145) Potassium Level 3.3 MMOL/L (3.5-5.1) L Chloride Level 103 MMOL/L (98-107) Carbon Dioxide Level 19 MMOL/L (21-32) L Anion Gap 15 mmol/L (5-15) Blood Urea Nitrogen 137 mg/dL (7-18) H Creatinine 4.3 MG/DL (0.55-1.30) H Estimat Glomerular Filtration Rate 17.6 mL/min (>60) Glucose Level 164 MG/DL (74-106) H Calcium Level 8.6 MG/DL (8.5-10.1) Prothrombin Time 15.3 SEC (9.30-11.50) H Prothromb Time International Ratio 1.4 (0.9-1.1) H Lactic Acid Level 0.90 mmol/L (0.4-2.0) Plan Problems: (1) Hyponatremia (2) ARF (acute renal failure) (3) Hyperkalemia (4) Pressure sore on sacrum Assessment & Plan: Pt presented on admission with Sacral Pressure injury and Necrosis Both Both R lower ext, R foot and L foot. Generalized edema noted. Both upper ext noted to have multiple serous blisters ,some of which are weeping serous exudate. Full thickness Sacral Pressure Injury with undermined Borders. Base of wound is 75% loose necrotic tissue,25% bree. Bone exposure at base of wound. Area of necrosis noted at distal aspect of wound in space between wound and anus.Edges are macerated. Wound is malodorous.(L)9.5cm x (W)9.2cm x (D)2.9cm,undermining clockwise 10-3 by 3.8cm @12 o'clock. Scattered areas of hyperpigmentation noted to R and L clefts of buttocks. Unable to determine exudate as pt is continuously oozing large amt of semi soft black stool and leaking into wound because of close proximity to his rectum. At upper, R gluteal cheek is additional Pressure Injury with small amt Biofilm at base of wound. Edges are pink and adherent to base of wound. No exudate noted.(L)3cm x (W)2.6cm. Medially to distal Tibia,and extending to R foot is necrotic and malodorous.Wound is partially opened at posterior R tibia but is dry . L foot is necrotic and malodorous. No exudate noted. Tx.Plan: Cleanse Sacral wound with Dakin's 0.25% jose.. Loosely Pack wound with Dakin's moistened Kerlix.Apply Moisture Barrier Paste periwound.Cover with Optifoam drsg.Change Daily and PRN. Cleanse R lower ext and R foot with Dakin's 0.25% Jose. Cover wounds with ABD Pads.Wrap with Kerlix Daily and prn. Cleanse L foot Wounds with Dakin's 0.25% Jose. Cover wounds with ABD Pads and wrap with Kerlix Daily and prn. (5) Upper GI bleed Assessment & Plan: Patient with sepsis, abnormal labs, GI bleed, pending COVID eval. Labs noted. Exam reviewed. Chest x-ray noted as below. Discussed with GI. Plan for endoscopy once COVID status evaluated. Trend hemoglobin for now transfuse PRN. G-tube is functional and okay for medications and will plan tube feeds accordingly. No acute surgical intervention as patient is actively bleeding. Proton pump inhibitor recommended and Rx as written. Will follow with recommendations thank you for let me participate in patient's care There is a tracheostomy in place. Vascularity is normal. Hazy densities in the lung bases may be layering effusions. Cardiac and mediastinal silhouette are within normal limits. The bony thorax appear unremarkable. IMPRESSION: Bibasilar hazy densities perhaps layering effusions. right fem line not functional noted manipulation as suture was dislodged. line replaced 1. Two or three gastric AVMs. 2. Ulcer with a small visible vessel, status post gold probe bipolar cauterization. Javid Singh January 10, 2020 15:32
[2020-01-10 16:00] VITALS: BP 132/98
[2020-01-10] MEDS: Dextrose 50% 25ml Syringe IV PRN ×3 (17:22→23:24)
[2020-01-10 20:00] VITALS: BP 139/79
--- NOTE | 2020-01-10 20:13 | Nephrology Progress Note ---
Assessment/Plan Assessment 1) TR with azotemia 2) Probable UGI bleed 3) VDRF Plan: Will watch evolution of kidney fx Subjective Subjective He is on the vent, lethargic, creat is 4.3, black tarry stools Objective Objective Last 24 Hour Vital Signs Date Time Temp Pulse Resp B/P (MAP) Pulse Ox O2 Delivery O2 Flow Rate FiO2 01/10/20 19:25 73 01/10/20 16:00 97.2 72 24 132/98 (109) 100 01/10/20 16:00 Mechanical Ventilator 01/10/20 16:00 40 01/10/20 15:46 70 01/10/20 15:25 74 30 40 01/10/20 12:00 Mechanical Ventilator 01/10/20 12:00 40 01/10/20 12:00 96.7 75 24 133/107 (116) 100 01/10/20 11:28 74 01/10/20 11:10 72 26 40 01/10/20 08:00 Mechanical Ventilator 01/10/20 08:00 40 01/10/20 08:00 97.2 67 24 134/75 (94) 96 01/10/20 07:46 68 01/10/20 07:15 66 26 40 01/10/20 04:00 Mechanical Ventilator 01/10/20 04:00 97.2 77 24 145/79 (101) 100 01/10/20 04:00 40 01/10/20 04:00 76 01/10/20 03:28 73 27 40 01/10/20 00:00 97.4 82 22 147/82 (103) 96 01/10/20 00:00 78 01/10/20 00:00 Mechanical Ventilator 01/09/20 23:25 79 29 40 Intake and Output 01/09/20 01/10/20 19:00 07:00 Intake Total 875 ml 1278.75 ml Output Total 700 ml 600 ml Balance 175 ml 678.75 ml Intake Free Water 400 ml 120 ml IV Total 75 ml 898.75 ml Tube Feeding 400 ml 10 ml Blood Product 250 ml Output Urine Total 700 ml 600 ml # Bowel Movements 4 3 Laboratory Tests 01/10/20 03:00: Stool Occult Blood Positive 01/10/20 04:00: White Blood Count 40.3#*H, Red Blood Count 2.78L, Hemoglobin 8.1L, Hematocrit 23.7L, Mean Corpuscular Volume 85#, Mean Corpuscular Hemoglobin 29.3, Mean Corpuscular Hemoglobin Concent 34.3, Red Cell Distribution Width 13.5, Platelet Count 45L, Mean Platelet Volume 13.4H, Neutrophils (%) (Auto) , Lymphocytes (%) (Auto) , Monocytes (%) (Auto) , Eosinophils (%) (Auto) , Basophils (%) (Auto) , Differential Total Cells Counted 100, Neutrophils % (Manual) 93H, Lymphocytes % (Manual) 3L, Monocytes % (Manual) 4, Eosinophils % (Manual) 0, Basophils % ( Manual) 0, Band Neutrophils 0, Platelet Estimate DecreasedL, Platelet Morphology Normal, Sodium Level 137, Potassium Level 3.3L, Chloride Level 103, Carbon Dioxide Level 19L, Anion Gap 15, Blood Urea Nitrogen 137H, Creatinine 4.3H, Estimat Glomerular Filtration Rate 17.6, Glucose Level 164H, Calcium Level 8.6 01/10/20 06:15: Prothrombin Time 15.3H, Prothromb Time International Ratio 1.4H, Lactic Acid Level 0.90 Height (Feet): 5 Height (Inches): 5.00 Weight (Pounds): 177 General Appearance: no apparent distress, lethargic, other - on thwe vent Neck: other - tracheostomy Cardiovascular: normal rate, regular rhythm Respiratory/Chest: rhonchi - bilaterally Abdomen: non tender, soft Neurologic: other - Lethargy Keanu Fitzpatrick MD January 10, 2020 20:13
[2020-01-10] MEDS: Atorvastatin 80mg tab GT SCH (20:21)
[2020-01-10] MEDS: Dyna-Hex 2% Top Sol 2oz TOPIC SCH (20:21)
[2020-01-10] MEDS ORDERED: DEXTROSE IV SCH (23:45)
[2020-01-10] MEDS ORDERED: SODIUM BICARBONATE IV SCH (23:45)
[2020-01-11] VITALS: BP 136/75
[2020-01-11] MEDS: SODIUM BICARBONATE IV SCH ×2 (00:09→12:21)
[2020-01-11] MEDS: DEXTROSE IV SCH ×2 (00:09→12:21)
[2020-01-11 04:00] VITALS: BP 134/72
[2020-01-11] MEDS: Insulin NovoLOG Flexpen S/S (Mod) SUBQ SCH ×4 (06:00→17:37)
[2020-01-11] MEDS: Metoclopramide 10mg/2ml Inj IVP SCH ×3 (06:00→17:37)
[2020-01-11 07:14] LABS: ANION GAP 14 mmol/L (5-15); BLOOD UREA NITROGEN 134 mg/dL (7-18); CALCIUM 8.3 MG/DL (8.5-10.1); CARBON DIOXIDE 19 MMOL/L (21-32); CHLORIDE 103 MMOL/L (98-107); CREATININE 4.3 MG/DL (0.55-1.30); POTASSIUM 3.8 MMOL/L (3.5-5.1); SODIUM 136 MMOL/L (136-145)
[2020-01-11 07:41] LABS: HEMATOCRIT 22.7 % (42.0-52.0); HEMOGLOBIN 8.3 G/DL (14.2-18.0); MEAN CORPUSCULAR VOLUME 83 FL (80-99); PLATELET COUNT 62 K/UL (150-450); RED BLOOD COUNT 2.72 M/UL (4.70-6.10); RED CELL DISTRIBUTION WIDTH 13.2 % (11.6-14.8); WHITE BLOOD COUNT 17.1 K/UL (4.8-10.8)
[2020-01-11 07:50] LABS: INR 1.4 (0.9-1.1)
--- NOTE | 2020-01-11 07:58 | Pulmonology Progress Note ---
Subjective ROS Limited/Unobtainable: No Constitutional: Reports: other - on warming blanket Gastrointestinal/Abdominal: Reports: diarrhea Allergies: Coded Allergies: No Known Allergies (Unverified , 10/07/19) All Systems: reviewed and negative except above Objective Last 24 Hour Vital Signs Date Time Temp Pulse Resp B/P (MAP) Pulse Ox O2 Delivery O2 Flow Rate FiO2 01/11/20 07:01 67 57 40 01/11/20 05:25 66 26 40 01/11/20 04:00 40 01/11/20 04:00 Mechanical Ventilator 01/11/20 04:00 97.4 81 22 134/72 (92) 98 01/11/20 03:48 70 01/11/20 03:19 68 26 40 01/11/20 00:43 72 26 40 01/11/20 00:04 77 01/11/20 00:00 Mechanical Ventilator 01/11/20 00:00 97.2 72 24 136/75 (95) 99 01/10/20 23:34 73 28 40 01/10/20 20:31 64 25 40 01/10/20 20:00 40 01/10/20 20:00 Mechanical Ventilator 01/10/20 20:00 97.4 67 24 139/79 (99) 100 01/10/20 19:25 73 01/10/20 19:16 69 25 40 01/10/20 16:00 97.2 72 24 132/98 (109) 100 01/10/20 16:00 Mechanical Ventilator 01/10/20 16:00 40 01/10/20 15:46 70 01/10/20 15:25 74 30 40 01/10/20 12:00 Mechanical Ventilator 01/10/20 12:00 40 01/10/20 12:00 96.7 75 24 133/107 (116) 100 01/10/20 11:28 74 01/10/20 11:10 72 26 40 01/10/20 08:00 Mechanical Ventilator 01/10/20 08:00 40 01/10/20 08:00 97.2 67 24 134/75 (94) 96 Intake and Output 01/10/20 01/11/20 19:00 07:00 Intake Total 1220 ml 808.75 ml Output Total 600 ml 500 ml Balance 620 ml 308.75 ml Intake Free Water 20 ml 60 ml IV Total 1200 ml 748.75 ml Output Urine Total 600 ml 500 ml # Bowel Movements 7 2 Laboratory Tests 01/11/20 06:08: White Blood Count 17.1#H, Red Blood Count 2.72L, Hemoglobin 8.3L, Hematocrit 22.7L, Mean Corpuscular Volume 83, Mean Corpuscular Hemoglobin 30.5, Mean Corpuscular Hemoglobin Concent 36.6H, Red Cell Distribution Width 13.2, Platelet Count 62L, Mean Platelet Volume 16.5H, Neutrophils (%) (Auto) , Lymphocytes (%) (Auto) , Monocytes (%) (Auto) , Eosinophils (%) (Auto) , Basophils (%) (Auto) , Neutrophils % (Manual) [Pending], Lymphocytes % (Manual) [Pending], Platelet Estimate [Pending], Platelet Morphology [Pending], Prothrombin Time [Pending], Prothromb Time International Ratio [Pending], Sodium Level 136, Potassium Level 3.8, Chloride Level 103, Carbon Dioxide Level 19L, Anion Gap 14, Blood Urea Nitrogen 134H, Creatinine 4.3H, Estimat Glomerular Filtration Rate 17.6, Glucose Level 113H, Calcium Level 8.3L Current Medications Medications (Trade) Dose Ordered Sig/[place] Route PRN Reason Start Time Stop Time Status Last Admin Dose Admin Acetaminophen (Tylenol) 650 mg Q4H PRN GT Mild Pain (Pain Scale 1-3) 12/31/19 07:45 01/30/20 07:44 Acetaminophen (Tylenol) 650 mg Q4H PRN GT Temp >100.5 12/31/19 07:45 01/30/20 07:44 Al Hydroxide/Mg Hydroxide (Mylanta) 30 ml QIDPRN PRN GT stomach upset 12/31/19 08:00 01/30/20 07:59 Artificial Tears (Akwa-Tears) 1 drop EVERY 12 HOURS BOTH EYES 01/07/20 21:00 01/30/20 10:59 01/10/20 20:21 Atorvastatin Calcium (Lipitor) 80 mg BEDTIME GT 12/31/19 21:00 03/30/20 20:59 01/10/20 20:21 Chlorhexidine Gluconate (Sheela-Hex 2%) 1 applic DAILY@2000 TOPIC 01/02/20 20:00 04/01/20 19:59 01/10/20 20:21 Dextrose (Dextrose 50%) 25 ml Q30M PRN IV Hypoglycemia 12/31/19 08:45 01/30/20 08:37 01/10/20 23:24 Dextrose (Dextrose 50%) 50 ml Q30M PRN IV hypoglycemia 12/31/19 08:45 03/30/20 08:44 01/10/20 12:06 Insulin Aspart (NovoLOG) No Dose Q6HR SUBQ 12/31/19 12:00 03/30/20 11:59 01/07/20 18:16 Insulin Detemir (Levemir) 25 units Q12HR SUBQ 12/31/19 10:00 03/30/20 09:59 01/10/20 09:20 Metoclopramide HCl (Reglan) 10 mg Q6H IVP 01/09/20 18:00 02/08/20 17:59 01/10/20 00:50 Pantoprazole (Protonix) 40 mg Q12H IVP 01/02/20 21:00 02/01/20 20:59 01/10/20 20:26 Sodium Bicarbonate 50 ml/ Dextrose 1,050 ml @ 75 mls/hr Q14H IV 01/10/20 23:45 02/09/20 23:44 01/11/20 00:09 Sodium Hypochlorite (Dakin's Half Strength) 1 applic DAILY TOPIC 01/01/20 09:00 01/31/20 08:59 01/10/20 08:57 Vancomycin HCl (Firvanq) 125 mg FOUR TIMES A DAY ORAL 01/10/20 13:00 01/17/20 12:59 01/10/20 20:21 Zinc Sulfate (Zinc Sulfate) 220 mg DAILY GT 12/31/19 09:00 03/30/20 08:59 01/10/20 08:54 Assessment/Plan Assessment/Plan Pulmonary Progress Note Subjective ROS Limited/Unobtainable: Yes Constitutional: Reports: other - on warming blanket Gastrointestinal/Abdominal: Reports: diarrhea Allergies: Coded Allergies: No Known Allergies (Unverified , 10/07/19) All Systems: reviewed and negative except above Subjective care noted on vent sp transfusion renal function poor Objective Vital Signs noted Objective WDWN trach clear breath sounds bilaterally without rhonchi or wheeze [id number] without MRG NABS nontender no HSM no CCE poor LOC reviewed and edited Laboratory Tests 01/09/20 18:35: White Blood Count 22.9*H, Red Blood Count 2.33L, Hemoglobin 6.9*L, Hematocrit 21.6L, Mean Corpuscular Volume 93, Mean Corpuscular Hemoglobin 29.4, Mean Corpuscular Hemoglobin Concent 31.8L, Red Cell Distribution Width 15.5H, Platelet Count 44L, Mean Platelet Volume 16.0H, Neutrophils (%) (Auto) , Lymphocytes (%) (Auto) , Monocytes (%) (Auto) , Eosinophils (%) (Auto) , Basophils (%) (Auto) , Differential Total Cells Counted 100, Neutrophils % ( Manual) 92H, Lymphocytes % (Manual) 2L, Monocytes % (Manual) 3, Eosinophils % ( Manual) 3, Basophils % (Manual) 0, Band Neutrophils 0, Platelet Estimate DecreasedL, Platelet Morphology Normal, Hypochromasia 1+ 01/10/20 03:00: Stool Occult Blood [Pending] 01/10/20 04:00: White Blood Count 40.3#*H, Red Blood Count 2.78L, Hemoglobin 8.1L, Hematocrit 23.7L, Mean Corpuscular Volume 85#, Mean Corpuscular Hemoglobin 29.3, Mean Corpuscular Hemoglobin Concent 34.3, Red Cell Distribution Width 13.5, Platelet Count 45L, Mean Platelet Volume 13.4H, Neutrophils (%) (Auto) , Lymphocytes (%) (Auto) , Monocytes (%) (Auto) , Eosinophils (%) (Auto) , Basophils (%) (Auto) , Differential Total Cells Counted 100, Neutrophils % (Manual) 93H, Lymphocytes % (Manual) 3L, Monocytes % (Manual) 4, Eosinophils % (Manual) 0, Basophils % ( Manual) 0, Band Neutrophils 0, Platelet Estimate DecreasedL, Platelet Morphology Normal, Sodium Level 137, Potassium Level 3.3L, Chloride Level 103, Carbon Dioxide Level 19L, Anion Gap 15, Blood Urea Nitrogen 137H, Creatinine 4.3H, Estimat Glomerular Filtration Rate 17.6, Glucose Level 164H, Calcium Level 8.6 01/10/20 06:15: Prothrombin Time 15.3H, Prothromb Time International Ratio 1.4H, Lactic Acid Level 0.90 Current Medications Medications (Trade) Dose Ordered Sig/[place] Route PRN Reason Start Time Stop Time Status Last Admin Dose Admin Acetaminophen (Tylenol) 650 mg Q4H PRN GT Mild Pain (Pain Scale 1-3) 12/31/19 07:45 01/30/20 07:44 Acetaminophen (Tylenol) 650 mg Q4H PRN GT Temp >100.5 12/31/19 07:45 01/30/20 07:44 Al Hydroxide/Mg Hydroxide (Mylanta) 30 ml QIDPRN PRN GT stomach upset 12/31/19 08:00 01/30/20 07:59 Artificial Tears (Akwa-Tears) 1 drop EVERY 12 HOURS BOTH EYES 01/07/20 21:00 01/30/20 10:59 01/09/20 20:06 Atorvastatin Calcium (Lipitor) 80 mg BEDTIME GT 12/31/19 21:00 03/30/20 20:59 01/09/20 20:05 Chlorhexidine Gluconate (Sheela-Hex 2%) 1 applic DAILY@2000 TOPIC 01/02/20 20:00 04/01/20 19:59 01/09/20 20:05 Dextrose (Dextrose 50%) 25 ml Q30M PRN IV Hypoglycemia 12/31/19 08:45 01/30/20 08:37 01/06/20 10:32 Dextrose (Dextrose 50%) 50 ml Q30M PRN IV hypoglycemia 12/31/19 08:45 03/30/20 08:44 01/06/20 05:36 Insulin Aspart (NovoLOG) No Dose Q6HR SUBQ 12/31/19 12:00 03/30/20 11:59 01/07/20 18:16 Insulin Detemir (Levemir) 25 units Q12HR SUBQ 12/31/19 10:00 03/30/20 09:59 01/09/20 20:09 Lorazepam (Ativan 2mg/ml 1ml) 1 mg Q2H PRN IV For Anxiety 01/03/20 18:00 01/10/20 17:59 01/03/20 17:57 Metoclopramide HCl (Reglan) 10 mg Q6H IVP 01/09/20 18:00 02/08/20 17:59 01/10/20 00:50 Pantoprazole (Protonix) 40 mg Q12H IVP 01/02/20 21:00 02/01/20 20:59 01/09/20 20:14 Sodium Bicarbonate 50 ml/ Dextrose 1,050 ml @ 75 mls/hr Q14H IV 01/09/20 10:46 02/08/20 10:45 01/10/20 00:50 Sodium Hypochlorite (Dakin's Half Strength) 1 applic DAILY TOPIC 01/01/20 09:00 01/31/20 08:59 01/09/20 08:11 Zinc Sulfate (Zinc Sulfate) 220 mg DAILY GT 12/31/19 09:00 03/30/20 08:59 01/09/20 08:11 Assessment/Plan IMPRESSION chronic respiratory failure Acute on chronic renal failure elevated K anemia GIB leukocytosis possible sepsis oral bleeding PLAN monitor HH- transfuse as needed monitor wbc IV hydration iv antibiotics ID , GI and renal vent as is monitor vitals hold feeds snf meds full code prognosis very poor for recovery difficult to optimize impression, plan, and exam edited and reviewed in detail care discussed with Jovi Newsome MD January 11, 2020 07:58
[2020-01-11 08:00] VITALS: BP 154/88
[2020-01-11] MEDS: Zinc Sulfate 220mg GT SCH (08:12)
[2020-01-11] MEDS: Pantoprazole Inj IVP SCH ×2 (08:12→20:46)
[2020-01-11] MEDS: Vancomycin oral 125mg/2.5ml ORAL SCH ×4 (08:13→20:47)
[2020-01-11] MEDS: Dakin's 0.25% (Half Strength) 16oz TOPIC SCH (08:15)
[2020-01-11] MEDS: Levemir Flexpen SUBQ SCH ×2 (08:15→20:46)
--- NOTE | 2020-01-11 08:25 | Hematology/Onc Progress Note ---
Assessment/Plan Assessment/Plan Assessment and recs # Thrombocytopenia - potential causes multifactorial, evaluate liver and viral etiologies to begin, also could be related to underlying medications patient has received. May be due to DIC in this case, or consumption --> Hep panel and HIV negative --> US abd to evaluate for cirrhosis and hsm --> neg for cirrhosis and hsm --> Peripheral smear ordered to evaluate for blasts /schistocytes --> abx and other meds have been reviewed --> ok for ppx if plt >50k w/ either heparin or lovenox --> Transfuse if Plt < 20k and fever, or if Plt < 10k without fever --> plt trend 41-->32-->21k-->20 -->61k-->45-->62 --> plt transfusion 01/04 --> for sepsis is on abx # Anemia due to Upper GI bleed, hematuria --> no evidence of hemolysis is noted --> smear noted --> anemia panel reviewed, ferritin high --> no iron or epo needed --> po iron ok --> for hematuria as per urology --> Pending endoscopy when clear from covid19 --> hgb trend: 9.1 ->8.3->6.9-->8.1-->8.3 --> prbc: 2 units 01/02, # Leukocytosis due to e/coli/kleb pna --> on connor/wilma--> vanc --> wbc trend 23-->32-->17.1 # Hyperkalemia --> kayxelate as needed --> k trend # ARF (acute renal failure) --> per renal # Hyponatremia # Gram negative pneumonia # Ventilator dependent respiratory failure # intracranial hemorrhage # paraplegia # Dysphagia with gtube The timing of this note does not necessarily reflect the time of the patient was seen. Greatly appreciate consultation. Subjective Allergies: Coded Allergies: No Known Allergies (Unverified , 10/07/19) Subjective 01/03obtunded, s/p rbc x2, hgb improved to 9.1, us abd reviewed, hematuria+ 01/04 plt are better, got 1 unit pf platets today as well, plt now 61k, less gi bleed overnight, some black tarry stool noted 01/05 nv, labs noted, hgb 8.5, no hemolysis noted, no bleeding, plt 83, egd tomorrow 01/06 egd for this am, results are pending, labs noted 01/09 no major changes, labs noted, no bleeding wbc higher, on abx 01/10 sdu, wbc improving, inr 1.4, vent, h/h stable, no distress Objective Objective Current Medications Medications (Trade) Dose Ordered Sig/[place] Route PRN Reason Start Time Stop Time Status Last Admin Dose Admin Acetaminophen (Tylenol) 650 mg Q4H PRN GT Mild Pain (Pain Scale 1-3) 12/31/19 07:45 01/30/20 07:44 Acetaminophen (Tylenol) 650 mg Q4H PRN GT Temp >100.5 12/31/19 07:45 01/30/20 07:44 Al Hydroxide/Mg Hydroxide (Mylanta) 30 ml QIDPRN PRN GT stomach upset 12/31/19 08:00 01/30/20 07:59 Artificial Tears (Akwa-Tears) 1 drop EVERY 12 HOURS BOTH EYES 01/07/20 21:00 01/30/20 10:59 01/10/20 20:21 Atorvastatin Calcium (Lipitor) 80 mg BEDTIME GT 12/31/19 21:00 03/30/20 20:59 01/10/20 20:21 Chlorhexidine Gluconate (Sheela-Hex 2%) 1 applic DAILY@2000 TOPIC 01/02/20 20:00 04/01/20 19:59 01/10/20 20:21 Dextrose (Dextrose 50%) 25 ml Q30M PRN IV Hypoglycemia 12/31/19 08:45 01/30/20 08:37 01/10/20 23:24 Dextrose (Dextrose 50%) 50 ml Q30M PRN IV hypoglycemia 12/31/19 08:45 03/30/20 08:44 01/10/20 12:06 Insulin Aspart (NovoLOG) No Dose Q6HR SUBQ 12/31/19 12:00 03/30/20 11:59 01/07/20 18:16 Insulin Detemir (Levemir) 25 units Q12HR SUBQ 12/31/19 10:00 03/30/20 09:59 01/10/20 09:20 Metoclopramide HCl (Reglan) 10 mg Q6H IVP 01/09/20 18:00 02/08/20 17:59 01/10/20 00:50 Pantoprazole (Protonix) 40 mg Q12H IVP 01/02/20 21:00 02/01/20 20:59 01/10/20 20:26 Sodium Bicarbonate 50 ml/ Dextrose 1,050 ml @ 75 mls/hr Q14H IV 01/10/20 23:45 02/09/20 23:44 01/11/20 00:09 Sodium Hypochlorite (Dakin's Half Strength) 1 applic DAILY TOPIC 01/01/20 09:00 01/31/20 08:59 01/10/20 08:57 Vancomycin HCl (Firvanq) 125 mg FOUR TIMES A DAY ORAL 01/10/20 13:00 01/17/20 12:59 01/10/20 20:21 Zinc Sulfate (Zinc Sulfate) 220 mg DAILY GT 12/31/19 09:00 03/30/20 08:59 01/10/20 08:54 Last 24 Hour Vital Signs Date Time Temp Pulse Resp B/P (MAP) Pulse Ox O2 Delivery O2 Flow Rate FiO2 01/11/20 07:01 67 57 40 01/11/20 05:25 66 26 40 01/11/20 04:00 40 01/11/20 04:00 Mechanical Ventilator 01/11/20 04:00 97.4 81 22 134/72 (92) 98 01/11/20 03:48 70 01/11/20 03:19 68 26 40 01/11/20 00:43 72 26 40 01/11/20 00:04 77 01/11/20 00:00 Mechanical Ventilator 01/11/20 00:00 97.2 72 24 136/75 (95) 99 01/10/20 23:34 73 28 40 01/10/20 20:31 64 25 40 01/10/20 20:00 40 01/10/20 20:00 Mechanical Ventilator 01/10/20 20:00 97.4 67 24 139/79 (99) 100 01/10/20 19:25 73 01/10/20 19:16 69 25 40 01/10/20 16:00 97.2 72 24 132/98 (109) 100 01/10/20 16:00 Mechanical Ventilator 01/10/20 16:00 40 01/10/20 15:46 70 01/10/20 15:25 74 30 40 01/10/20 12:00 Mechanical Ventilator 01/10/20 12:00 40 01/10/20 12:00 96.7 75 24 133/107 (116) 100 01/10/20 11:28 74 01/10/20 11:10 72 26 40 01/10/20 08:00 Mechanical Ventilator 01/10/20 08:00 40 01/10/20 08:00 97.2 67 24 134/75 (94) 96 01/10/20 07:46 68 01/10/20 07:15 66 26 40 01/10/20 04:00 Mechanical Ventilator 01/10/20 04:00 97.2 77 24 145/79 (101) 100 01/10/20 04:00 40 01/10/20 04:00 76 01/10/20 03:28 73 27 40 01/10/20 00:00 97.4 82 22 147/82 (103) 96 01/10/20 00:00 78 01/10/20 00:00 Mechanical Ventilator 01/09/20 23:25 79 29 40 01/09/20 20:00 97.3 81 22 147/79 (101) 95 01/09/20 20:00 Mechanical Ventilator 01/09/20 20:00 40 01/09/20 19:22 89 01/09/20 19:00 85 30 40 01/09/20 16:00 Mechanical Ventilator 01/09/20 16:00 97.2 83 20 122/72 (89) 95 01/09/20 16:00 40 01/09/20 16:00 82 01/09/20 15:28 81 27 40 01/09/20 12:00 Mechanical Ventilator 01/09/20 12:00 97.3 73 20 125/67 (86) 97 01/09/20 12:00 72 01/09/20 12:00 40 01/09/20 11:23 72 26 40 Intake and Output 01/10/20 01/11/20 19:00 07:00 Intake Total 1220 ml 808.75 ml Output Total 600 ml 500 ml Balance 620 ml 308.75 ml Intake Free Water 20 ml 60 ml IV Total 1200 ml 748.75 ml Output Urine Total 600 ml 500 ml # Bowel Movements 7 2 Labs Test 01/09/20 18:35 01/10/20 03:00 01/10/20 04:00 01/10/20 06:15 White Blood Count 22.9 K/UL (4.8-10.8) 40.3 K/UL (4.8-10.8) Red Blood Count 2.33 M/UL (4.70-6.10) 2.78 M/UL (4.70-6.10) Hemoglobin 6.9 G/DL (14.2-18.0) 8.1 G/DL (14.2-18.0) Hematocrit 21.6 % (42.0-52.0) 23.7 % (42.0-52.0) Mean Corpuscular Volume 93 FL (80-99) 85 FL (80-99) Mean Corpuscular Hemoglobin 29.4 PG (27.0-31.0) 29.3 PG (27.0-31.0) Mean Corpuscular Hemoglobin Concent 31.8 G/DL (32.0-36.0) 34.3 G/DL (32.0-36.0) Red Cell Distribution Width 15.5 % (11.6-14.8) 13.5 % (11.6-14.8) Platelet Count 44 K/UL (150-450) 45 K/UL (150-450) Mean Platelet Volume 16.0 FL (6.5-10.1) 13.4 FL (6.5-10.1) Neutrophils (%) (Auto) % (45.0-75.0) % (45.0-75.0) Lymphocytes (%) (Auto) % (20.0-45.0) % (20.0-45.0) Monocytes (%) (Auto) % (1.0-10.0) % (1.0-10.0) Eosinophils (%) (Auto) % (0.0-3.0) % (0.0-3.0) Basophils (%) (Auto) % (0.0-2.0) % (0.0-2.0) Differential Total Cells Counted 100 100 Neutrophils % (Manual) 92 % (45-75) 93 % (45-75) Lymphocytes % (Manual) 2 % (20-45) 3 % (20-45) Monocytes % (Manual) 3 % (1-10) 4 % (1-10) Eosinophils % (Manual) 3 % (0-3) 0 % (0-3) Basophils % (Manual) 0 % (0-2) 0 % (0-2) Band Neutrophils 0 % (0-8) 0 % (0-8) Platelet Estimate Decreased Decreased Platelet Morphology Normal Normal Hypochromasia 1+ Stool Occult Blood Positive (NEGATIVE) Sodium Level 137 MMOL/L (136-145) Potassium Level 3.3 MMOL/L (3.5-5.1) Chloride Level 103 MMOL/L (98-107) Carbon Dioxide Level 19 MMOL/L (21-32) Anion Gap 15 mmol/L (5-15) Blood Urea Nitrogen 137 mg/dL (7-18) Creatinine 4.3 MG/DL (0.55-1.30) Estimat Glomerular Filtration Rate 17.6 mL/min (>60) Glucose Level 164 MG/DL (74-106) Calcium Level 8.6 MG/DL (8.5-10.1) Prothrombin Time 15.3 SEC (9.30-11.50) Prothromb Time International Ratio 1.4 (0.9-1.1) Lactic Acid Level 0.90 mmol/L (0.4-2.0) Test 01/11/20 06:08 White Blood Count 17.1 K/UL (4.8-10.8) Red Blood Count 2.72 M/UL (4.70-6.10) Hemoglobin 8.3 G/DL (14.2-18.0) Hematocrit 22.7 % (42.0-52.0) Mean Corpuscular Volume 83 FL (80-99) Mean Corpuscular Hemoglobin 30.5 PG (27.0-31.0) Mean Corpuscular Hemoglobin Concent 36.6 G/DL (32.0-36.0) Red Cell Distribution Width 13.2 % (11.6-14.8) Platelet Count 62 K/UL (150-450) Mean Platelet Volume 16.5 FL (6.5-10.1) Neutrophils (%) (Auto) % (45.0-75.0) Lymphocytes (%) (Auto) % (20.0-45.0) Monocytes (%) (Auto) % (1.0-10.0) Eosinophils (%) (Auto) % (0.0-3.0) Basophils (%) (Auto) % (0.0-2.0) Prothrombin Time 15.1 SEC (9.30-11.50) Prothromb Time International Ratio 1.4 (0.9-1.1) Sodium Level 136 MMOL/L (136-145) Potassium Level 3.8 MMOL/L (3.5-5.1) Chloride Level 103 MMOL/L (98-107) Carbon Dioxide Level 19 MMOL/L (21-32) Anion Gap 14 mmol/L (5-15) Blood Urea Nitrogen 134 mg/dL (7-18) Creatinine 4.3 MG/DL (0.55-1.30) Estimat Glomerular Filtration Rate 17.6 mL/min (>60) Glucose Level 113 MG/DL (74-106) Calcium Level 8.3 MG/DL (8.5-10.1) Height (Feet): 5 Height (Inches): 5.00 Weight (Pounds): 176 Objective Physical Exam: Vitals: reviewed General: NAD ++obtunded HEENT: nc, at, mouth guard+ Neck: supple++trach Chest: clear breath sounds bilaterally Cardiovascular: RRR, no s3, s4 Abdomen: soft, nontender, nd ++gtube Extremities: no cce, normal range of motion, ++ Spasticity in the left upper extremity. Flaccid on the right. Neuro: nonfocal : skinny+ Wilmer Turner MD January 11, 2020 08:25
--- NOTE | 2020-01-11 08:59 | General Progress Note ---
Assessment/Plan Assessment/Plan: sepsis anemia GIB thrombocytopenia hyponatremia ARF DM dysphagia with GT s/p EGD/PEG atable H&H will resume GTF ppi will fu Subjective ROS Limited/Unobtainable: No Allergies: Coded Allergies: No Known Allergies (Unverified , 10/07/19) Objective Last 24 Hour Vital Signs Date Time Temp Pulse Resp B/P (MAP) Pulse Ox O2 Delivery O2 Flow Rate FiO2 01/11/20 08:34 68 26 40 01/11/20 08:00 95.7 67 24 154/88 (110) 98 01/11/20 07:01 67 27 40 01/11/20 05:25 66 26 40 01/11/20 04:00 40 01/11/20 04:00 Mechanical Ventilator 01/11/20 04:00 97.4 81 22 134/72 (92) 98 01/11/20 03:48 70 01/11/20 03:19 68 26 40 01/11/20 00:43 72 26 40 01/11/20 00:04 77 01/11/20 00:00 Mechanical Ventilator 01/11/20 00:00 97.2 72 24 136/75 (95) 99 01/10/20 23:34 73 28 40 01/10/20 20:31 64 25 40 01/10/20 20:00 40 01/10/20 20:00 Mechanical Ventilator 01/10/20 20:00 97.4 67 24 139/79 (99) 100 01/10/20 19:25 73 01/10/20 19:16 69 25 40 01/10/20 16:00 97.2 72 24 132/98 (109) 100 01/10/20 16:00 Mechanical Ventilator 01/10/20 16:00 40 01/10/20 15:46 70 01/10/20 15:25 74 30 40 01/10/20 12:00 Mechanical Ventilator 01/10/20 12:00 40 01/10/20 12:00 96.7 75 24 133/107 (116) 100 01/10/20 11:28 74 01/10/20 11:10 72 26 40 Intake and Output 01/10/20 01/11/20 18:59 06:59 Intake Total 1220 ml 883.75 ml Output Total 600 ml 500 ml Balance 620 ml 383.75 ml Intake Free Water 20 ml 60 ml IV Total 1200 ml 823.75 ml Output Urine Total 600 ml 500 ml # Bowel Movements 7 2 Laboratory Tests 01/11/20 06:08: White Blood Count 17.1#H, Red Blood Count 2.72L, Hemoglobin 8.3L, Hematocrit 22.7L, Mean Corpuscular Volume 83, Mean Corpuscular Hemoglobin 30.5, Mean Corpuscular Hemoglobin Concent 36.6H, Red Cell Distribution Width 13.2, Platelet Count 62L, Mean Platelet Volume 16.5H, Neutrophils (%) (Auto) , Lymphocytes (%) (Auto) , Monocytes (%) (Auto) , Eosinophils (%) (Auto) , Basophils (%) (Auto) , Neutrophils % (Manual) [Pending], Lymphocytes % (Manual) [Pending], Platelet Estimate [Pending], Platelet Morphology [Pending], Prothrombin Time 15.1H, Prothromb Time International Ratio 1.4H, Sodium Level 136, Potassium Level 3.8, Chloride Level 103, Carbon Dioxide Level 19L, Anion Gap 14, Blood Urea Nitrogen 134H, Creatinine 4.3H, Estimat Glomerular Filtration Rate 17.6, Glucose Level 113H, Calcium Level 8.3L Height (Feet): 5 Height (Inches): 5.00 Weight (Pounds): 176 General Appearance: lethargic EENT: normal ENT inspection Neck: supple Cardiovascular: normal rate Respiratory/Chest: decreased breath sounds Abdomen: normal bowel sounds, non tender, soft Extremities: non-tender Toni Mckenzie MD January 11, 2020 08:59
[2020-01-11 12:00] VITALS: BP 153/81
--- NOTE | 2020-01-11 13:31 | Surgery Progress Note ---
Surgery Progress Note Subjective Procedure Performed right femoral central venous catheter insertion Additional Comments ill appearing care dressings doing at bedside with nursing overall very deconditioned Objective Last 24 Hour Vital Signs Date Time Temp Pulse Resp B/P (MAP) Pulse Ox O2 Delivery O2 Flow Rate FiO2 01/11/20 12:54 70 25 40 01/11/20 12:00 Mechanical Ventilator 01/11/20 12:00 40 01/11/20 12:00 95.5 66 27 153/81 (105) 97 01/11/20 10:49 67 26 40 01/11/20 08:34 68 26 40 01/11/20 08:00 40 01/11/20 08:00 95.7 67 24 154/88 (110) 98 01/11/20 08:00 66 01/11/20 08:00 Mechanical Ventilator 01/11/20 07:01 67 27 40 01/11/20 05:25 66 26 40 01/11/20 04:00 40 01/11/20 04:00 Mechanical Ventilator 01/11/20 04:00 97.4 81 22 134/72 (92) 98 01/11/20 03:48 70 01/11/20 03:19 68 26 40 01/11/20 00:43 72 26 40 01/11/20 00:04 77 01/11/20 00:00 Mechanical Ventilator 01/11/20 00:00 97.2 72 24 136/75 (95) 99 01/10/20 23:34 73 28 40 01/10/20 20:31 64 25 40 01/10/20 20:00 40 01/10/20 20:00 Mechanical Ventilator 01/10/20 20:00 97.4 67 24 139/79 (99) 100 01/10/20 19:25 73 01/10/20 19:16 69 25 40 01/10/20 16:00 97.2 72 24 132/98 (109) 100 01/10/20 16:00 Mechanical Ventilator 01/10/20 16:00 40 01/10/20 15:46 70 01/10/20 15:25 74 30 40 I&O Intake and Output 01/10/20 01/11/20 19:00 07:00 Intake Total 1220 ml 808.75 ml Output Total 600 ml 500 ml Balance 620 ml 308.75 ml Intake Free Water 20 ml 60 ml IV Total 1200 ml 748.75 ml Output Urine Total 600 ml 500 ml # Bowel Movements 7 2 Dressing: other Wound: other Drains: other Cardiovascular: RSR Respiratory: decreased breath sounds Abdomen: soft, non-tender, present bowel sounds Extremities: cyanosis, other Laboratory Tests Test 01/11/20 06:08 White Blood Count 17.1 K/UL (4.8-10.8) #H Red Blood Count 2.72 M/UL (4.70-6.10) L Hemoglobin 8.3 G/DL (14.2-18.0) L Hematocrit 22.7 % (42.0-52.0) L Mean Corpuscular Volume 83 FL (80-99) Mean Corpuscular Hemoglobin 30.5 PG (27.0-31.0) Mean Corpuscular Hemoglobin Concent 36.6 G/DL (32.0-36.0) H Red Cell Distribution Width 13.2 % (11.6-14.8) Platelet Count 62 K/UL (150-450) L Mean Platelet Volume 16.5 FL (6.5-10.1) H Neutrophils (%) (Auto) % (45.0-75.0) Lymphocytes (%) (Auto) % (20.0-45.0) Monocytes (%) (Auto) % (1.0-10.0) Eosinophils (%) (Auto) % (0.0-3.0) Basophils (%) (Auto) % (0.0-2.0) Differential Total Cells Counted 100 Neutrophils % (Manual) 87 % (45-75) H Lymphocytes % (Manual) 4 % (20-45) L Monocytes % (Manual) 7 % (1-10) Eosinophils % (Manual) 2 % (0-3) Basophils % (Manual) 0 % (0-2) Band Neutrophils 0 % (0-8) Platelet Estimate Decreased L Platelet Morphology Normal Anisocytosis 1+ Prothrombin Time 15.1 SEC (9.30-11.50) H Prothromb Time International Ratio 1.4 (0.9-1.1) H Sodium Level 136 MMOL/L (136-145) Potassium Level 3.8 MMOL/L (3.5-5.1) Chloride Level 103 MMOL/L (98-107) Carbon Dioxide Level 19 MMOL/L (21-32) L Anion Gap 14 mmol/L (5-15) Blood Urea Nitrogen 134 mg/dL (7-18) H Creatinine 4.3 MG/DL (0.55-1.30) H Estimat Glomerular Filtration Rate 17.6 mL/min (>60) Glucose Level 113 MG/DL (74-106) H Calcium Level 8.3 MG/DL (8.5-10.1) L Plan Problems: (1) Hyponatremia (2) ARF (acute renal failure) (3) Hyperkalemia (4) Pressure sore on sacrum Assessment & Plan: Pt presented on admission with Sacral Pressure injury and Necrosis Both Both R lower ext, R foot and L foot. Generalized edema noted. Both upper ext noted to have multiple serous blisters ,some of which are weeping serous exudate. Full thickness Sacral Pressure Injury with undermined Borders. Base of wound is 75% loose necrotic tissue,25% bree. Bone exposure at base of wound. Area of necrosis noted at distal aspect of wound in space between wound and anus.Edges are macerated. Wound is malodorous.(L)9.5cm x (W)9.2cm x (D)2.9cm,undermining clockwise 10-3 by 3.8cm @12 o'clock. Scattered areas of hyperpigmentation noted to R and L clefts of buttocks. Unable to determine exudate as pt is continuously oozing large amt of semi soft black stool and leaking into wound because of close proximity to his rectum. At upper, R gluteal cheek is additional Pressure Injury with small amt Biofilm at base of wound. Edges are pink and adherent to base of wound. No exudate noted.(L)3cm x (W)2.6cm. Medially to distal Tibia,and extending to R foot is necrotic and malodorous.Wound is partially opened at posterior R tibia but is dry . L foot is necrotic and malodorous. No exudate noted. Tx.Plan: Cleanse Sacral wound with Dakin's 0.25% archana.. Loosely Pack wound with Dakin's moistened Kerlix.Apply Moisture Barrier Paste periwound.Cover with Optifoam drsg.Change Daily and PRN. Cleanse R lower ext and R foot with Dakin's 0.25% Archana. Cover wounds with ABD Pads.Wrap with Kerlix Daily and prn. Cleanse L foot Wounds with Dakin's 0.25% Archana. Cover wounds with ABD Pads and wrap with Kerlix Daily and prn. (5) Upper GI bleed Assessment & Plan: Patient with sepsis, abnormal labs, GI bleed, pending COVID eval. Labs noted. Exam reviewed. Chest x-ray noted as below. Discussed with GI. Plan for endoscopy once COVID status evaluated. Trend hemoglobin for now transfuse PRN. G-tube is functional and okay for medications and will plan tube feeds accordingly. No acute surgical intervention as patient is actively bleeding. Proton pump inhibitor recommended and Rx as written. Will follow with recommendations thank you for let me participate in patient's care There is a tracheostomy in place. Vascularity is normal. Hazy densities in the lung bases may be layering effusions. Cardiac and mediastinal silhouette are within normal limits. The bony thorax appear unremarkable. IMPRESSION: Bibasilar hazy densities perhaps layering effusions. right fem line not functional noted manipulation as suture was dislodged. line replaced 1. Two or three gastric AVMs. 2. Ulcer with a small visible vessel, status post gold probe bipolar cauterization. DAILY ESTIMATED NEEDS: Needs based on Critical Care, Wounds, TR / 61kg 25-30 kcals/kg 8425-7362 total kcals 0.8-1.25 (increase w/ renal improvement) g protein/kg 49-76 g total protein 25-30 mL/kg 4850-4353 total fluid mLs NUTRITION DIAGNOSIS: * Swallowing difficulty R/T respiratory status, dysphagia as evidenced by trach/vent dep, PEG dep. * Increased kcal/prot intake needs R/T wound healing as evidenced by admitted w/ multiple wounds including full thickness wound @ sacrum, pressure Injury with small amt Biofilm at base of wound @ upper R gluteal cheek, necrotic wound @ medial to distal Tibia,and extending to R foot and L foot * Altered nutrition related lab R/T TR as evidenced by elev BUN (215-> 134), elev creat (5.2->4.3), low Na (124 -> wnl), elev K (6.7 -> wnl) CURRENT TF:TF HELD ENTERAL NUTRITION RECOMMENDATIONS: Nepro @ 38ml/hr x 24 hrs to provide 912ml, 1642kcal, 74g prot, 663ml free water * Once medically appropriate to feed, initiate TF -> rec Nepro at this time given TR (Creat 5.2 -> 4.3) w/ elev K upon adm * Initiate Nepro @ 18ml/hr x 6hrs, advance 10ml q 4-6 hrs as tolerated to goal rate * HOB over 30 degrees/ water flush per MD Monitor renal fxn closely, need to continue renal TF formula ADDITIONAL RECOMMENDATIONS: * Per SNF: HT=62" WT= 135lbs (12/25/19) * Monitor renal fxn and lytes (slowly improving renal fxn) * Monitor ability to resume TF- TF holding cont to be needed, consider initiating parenteral nutrition * Wound healing: add Ajay BID w/ TF order * Monitor for hypoglycemia: rec to hold ALL insulin while pt is NPO Javid Singh January 11, 2020 13:31
[2020-01-11 16:00] VITALS: BP 155/99
--- NOTE | 2020-01-11 18:17 | Nephrology Progress Note ---
Assessment/Plan Assessment 1) TR with azotemia 2) Probable UGI bleed 3) VDRF Plan: Will watch evolution of kidney fx Subjective Subjective He is still on the vent, WBC is down to 17 K, Objective Objective Last 24 Hour Vital Signs Date Time Temp Pulse Resp B/P (MAP) Pulse Ox O2 Delivery O2 Flow Rate FiO2 01/11/20 16:54 66 27 40 01/11/20 16:00 40 01/11/20 16:00 67 01/11/20 14:58 66 27 40 01/11/20 12:54 70 25 40 01/11/20 12:00 Mechanical Ventilator 01/11/20 12:00 40 01/11/20 12:00 95.5 66 27 153/81 (105) 97 01/11/20 11:43 65 01/11/20 10:49 67 26 40 01/11/20 08:34 68 26 40 01/11/20 08:00 40 01/11/20 08:00 95.7 67 24 154/88 (110) 98 01/11/20 08:00 66 01/11/20 08:00 Mechanical Ventilator 01/11/20 07:01 67 27 40 01/11/20 05:25 66 26 40 01/11/20 04:00 40 01/11/20 04:00 Mechanical Ventilator 01/11/20 04:00 97.4 81 22 134/72 (92) 98 01/11/20 03:48 70 01/11/20 03:19 68 26 40 01/11/20 00:43 72 26 40 01/11/20 00:04 77 01/11/20 00:00 Mechanical Ventilator 01/11/20 00:00 97.2 72 24 136/75 (95) 99 01/10/20 23:34 73 28 40 01/10/20 20:31 64 25 40 01/10/20 20:00 40 01/10/20 20:00 Mechanical Ventilator 01/10/20 20:00 97.4 67 24 139/79 (99) 100 01/10/20 19:25 73 01/10/20 19:16 69 25 40 Intake and Output 01/10/20 01/11/20 19:00 07:00 Intake Total 1220 ml 808.75 ml Output Total 600 ml 500 ml Balance 620 ml 308.75 ml Intake Free Water 20 ml 60 ml IV Total 1200 ml 748.75 ml Output Urine Total 600 ml 500 ml # Bowel Movements 7 2 Laboratory Tests 01/11/20 06:08: White Blood Count 17.1#H, Red Blood Count 2.72L, Hemoglobin 8.3L, Hematocrit 22.7L, Mean Corpuscular Volume 83, Mean Corpuscular Hemoglobin 30.5, Mean Corpuscular Hemoglobin Concent 36.6H, Red Cell Distribution Width 13.2, Platelet Count 62L, Mean Platelet Volume 16.5H, Neutrophils (%) (Auto) , Lymphocytes (%) (Auto) , Monocytes (%) (Auto) , Eosinophils (%) (Auto) , Basophils (%) (Auto) , Differential Total Cells Counted 100, Neutrophils % ( Manual) 87H, Lymphocytes % (Manual) 4L, Monocytes % (Manual) 7, Eosinophils % ( Manual) 2, Basophils % (Manual) 0, Band Neutrophils 0, Platelet Estimate DecreasedL, Platelet Morphology Normal, Anisocytosis 1+, Prothrombin Time 15.1H , Prothromb Time International Ratio 1.4H, Sodium Level 136, Potassium Level 3.8 , Chloride Level 103, Carbon Dioxide Level 19L, Anion Gap 14, Blood Urea Nitrogen 134H, Creatinine 4.3H, Estimat Glomerular Filtration Rate 17.6, Glucose Level 113H, Calcium Level 8.3L Height (Feet): 5 Height (Inches): 5.00 Weight (Pounds): 176 Keanu Fitzpatrick MD January 11, 2020 18:17
--- NOTE | 2020-01-11 18:43 | Nephrology Progress Note ---
Assessment/Plan Assessment 1) TR with azotemia 2) Probable UGI bleed 3) VDRF Plan: Will watch evolution of kidney fx Will need dialysis Subjective Subjective He is still on the vent, WBC is down to 17 K, unresponsive, still balck stools, BUN 134, creat is 4.3 Objective Objective Last 24 Hour Vital Signs Date Time Temp Pulse Resp B/P (MAP) Pulse Ox O2 Delivery O2 Flow Rate FiO2 01/11/20 16:54 66 27 40 01/11/20 16:00 40 01/11/20 16:00 67 01/11/20 16:00 95.7 68 25 155/99 (117) 99 01/11/20 14:58 66 27 40 01/11/20 12:54 70 25 40 01/11/20 12:00 Mechanical Ventilator 01/11/20 12:00 40 01/11/20 12:00 95.5 66 27 153/81 (105) 97 01/11/20 11:43 65 01/11/20 10:49 67 26 40 01/11/20 08:34 68 26 40 01/11/20 08:00 40 01/11/20 08:00 95.7 67 24 154/88 (110) 98 01/11/20 08:00 66 01/11/20 08:00 Mechanical Ventilator 01/11/20 07:01 67 27 40 01/11/20 05:25 66 26 40 01/11/20 04:00 40 01/11/20 04:00 Mechanical Ventilator 01/11/20 04:00 97.4 81 22 134/72 (92) 98 01/11/20 03:48 70 01/11/20 03:19 68 26 40 01/11/20 00:43 72 26 40 01/11/20 00:04 77 01/11/20 00:00 Mechanical Ventilator 01/11/20 00:00 97.2 72 24 136/75 (95) 99 01/10/20 23:34 73 28 40 01/10/20 20:31 64 25 40 01/10/20 20:00 40 01/10/20 20:00 Mechanical Ventilator 01/10/20 20:00 97.4 67 24 139/79 (99) 100 01/10/20 19:25 73 01/10/20 19:16 69 25 40 Intake and Output 01/10/20 01/11/20 19:00 07:00 Intake Total 1220 ml 808.75 ml Output Total 600 ml 500 ml Balance 620 ml 308.75 ml Intake Free Water 20 ml 60 ml IV Total 1200 ml 748.75 ml Output Urine Total 600 ml 500 ml # Bowel Movements 7 2 Laboratory Tests 01/11/20 06:08: White Blood Count 17.1#H, Red Blood Count 2.72L, Hemoglobin 8.3L, Hematocrit 22.7L, Mean Corpuscular Volume 83, Mean Corpuscular Hemoglobin 30.5, Mean Corpuscular Hemoglobin Concent 36.6H, Red Cell Distribution Width 13.2, Platelet Count 62L, Mean Platelet Volume 16.5H, Neutrophils (%) (Auto) , Lymphocytes (%) (Auto) , Monocytes (%) (Auto) , Eosinophils (%) (Auto) , Basophils (%) (Auto) , Differential Total Cells Counted 100, Neutrophils % ( Manual) 87H, Lymphocytes % (Manual) 4L, Monocytes % (Manual) 7, Eosinophils % ( Manual) 2, Basophils % (Manual) 0, Band Neutrophils 0, Platelet Estimate DecreasedL, Platelet Morphology Normal, Anisocytosis 1+, Prothrombin Time 15.1H , Prothromb Time International Ratio 1.4H, Sodium Level 136, Potassium Level 3.8 , Chloride Level 103, Carbon Dioxide Level 19L, Anion Gap 14, Blood Urea Nitrogen 134H, Creatinine 4.3H, Estimat Glomerular Filtration Rate 17.6, Glucose Level 113H, Calcium Level 8.3L Height (Feet): 5 Height (Inches): 5.00 Weight (Pounds): 176 General Appearance: no apparent distress, other - on thwe vent EENT: normal ENT inspection Neck: non-tender, normal alignment Respiratory/Chest: crackles/rales, rhonchi - bilaterally Abdomen: normal bowel sounds Extremities: no edema Neurologic: unresponsive, other Keanu Fitzpatrick MD January 11, 2020 18:43
[2020-01-11 20:00] VITALS: BP 143/79
[2020-01-11] MEDS: Dyna-Hex 2% Top Sol 2oz TOPIC SCH (20:45)
[2020-01-11] MEDS: Atorvastatin 80mg tab GT SCH (20:46)
[2020-01-12] VITALS (7 sets, daily range): BP systolic 106–133; BP diastolic 54–79
[2020-01-12] MEDS: DEXTROSE IV SCH ×2 (04:24→17:50)
[2020-01-12] MEDS: SODIUM BICARBONATE IV SCH ×2 (04:24→17:50)
[2020-01-12] MEDS: Insulin NovoLOG Flexpen S/S (Mod) SUBQ SCH ×5 (05:04→23:51)
[2020-01-12] MEDS: Metoclopramide 10mg/2ml Inj IVP SCH ×5 (05:05→23:38)
[2020-01-12 05:28] LABS: HEMATOCRIT 20.6 % (42.0-52.0); HEMOGLOBIN 7.6 G/DL (14.2-18.0); MEAN CORPUSCULAR VOLUME 82 FL (80-99); PLATELET COUNT 51 K/UL (150-450); RED CELL DISTRIBUTION WIDTH 12.8 % (11.6-14.8); WHITE BLOOD COUNT 13.9 K/UL (4.8-10.8)
--- NOTE | 2020-01-12 06:41 | General Progress Note ---
Assessment/Plan Assessment/Plan: sepsis anemia GIB thrombocytopenia hyponatremia ARF DM dysphagia with GT s/p EGD/PEG patient had some elevated residuals yesterday and TF was on hold minimum blood seen in GT aspirate will resume GTF add low dose erythromycin to reglan may need another PLT transfusion ppi will fu Subjective ROS Limited/Unobtainable: No Allergies: Coded Allergies: No Known Allergies (Unverified , 10/07/19) Objective Last 24 Hour Vital Signs Date Time Temp Pulse Resp B/P (MAP) Pulse Ox O2 Delivery O2 Flow Rate FiO2 01/12/20 04:49 65 24 40 01/12/20 04:00 96.3 67 24 122/74 (90) 100 01/12/20 04:00 40 01/12/20 04:00 67 01/12/20 04:00 Mechanical Ventilator 01/12/20 03:30 64 24 40 01/12/20 01:30 62 25 40 01/12/20 00:00 96.4 65 24 106/54 (71) 100 01/12/20 00:00 Mechanical Ventilator 01/12/20 00:00 65 01/11/20 23:30 64 24 40 01/11/20 21:30 65 24 40 01/11/20 20:00 96.3 68 24 143/79 (100) 98 01/11/20 20:00 Mechanical Ventilator 01/11/20 20:00 40 01/11/20 19:30 68 25 40 01/11/20 16:54 66 27 40 01/11/20 16:00 40 01/11/20 16:00 Mechanical Ventilator 01/11/20 16:00 67 01/11/20 16:00 95.7 68 25 155/99 (117) 99 01/11/20 14:58 66 27 40 01/11/20 12:54 70 25 40 01/11/20 12:00 Mechanical Ventilator 01/11/20 12:00 40 01/11/20 12:00 95.5 66 27 153/81 (105) 97 01/11/20 11:43 65 01/11/20 10:49 67 26 40 01/11/20 08:34 68 26 40 01/11/20 08:00 40 01/11/20 08:00 95.7 67 24 154/88 (110) 98 01/11/20 08:00 66 01/11/20 08:00 Mechanical Ventilator 01/11/20 07:01 67 27 40 Intake and Output 01/11/20 01/12/20 19:00 07:00 Intake Total 913.75 ml 600 ml Output Total 750 ml 700 ml Balance 163.75 ml -100 ml IV Total 873.75 ml 600 ml Tube Feeding 40 ml Output Urine Total 750 ml 700 ml # Bowel Movements 5 1 Laboratory Tests 01/12/20 04:00: White Blood Count 13.9H, Red Blood Count 2.50L, Hemoglobin 7.6L, Hematocrit 20.6L, Mean Corpuscular Volume 82, Mean Corpuscular Hemoglobin 30.4, Mean Corpuscular Hemoglobin Concent 36.9H, Red Cell Distribution Width 12.8, Platelet Count 51L, Mean Platelet Volume 13.8H, Neutrophils (%) (Auto) , Lymphocytes (%) (Auto) , Monocytes (%) (Auto) , Eosinophils (%) (Auto) , Basophils (%) (Auto) , Neutrophils % (Manual) [Pending], Lymphocytes % (Manual) [Pending], Platelet Estimate [Pending], Platelet Morphology [Pending] Height (Feet): 5 Height (Inches): 5.00 Weight (Pounds): 176 General Appearance: lethargic EENT: normal ENT inspection Neck: supple Cardiovascular: normal rate Respiratory/Chest: decreased breath sounds Abdomen: normal bowel sounds, non tender, soft Extremities: non-tender Toni Mckenzie MD January 12, 2020 06:41
--- NOTE | 2020-01-12 07:46 | Hematology/Onc Progress Note ---
Assessment/Plan Assessment/Plan Assessment and recs # Thrombocytopenia - potential causes multifactorial, evaluate liver and viral etiologies to begin, also could be related to underlying medications patient has received. May be due to DIC in this case, or consumption --> Hep panel and HIV negative --> US abd to evaluate for cirrhosis and hsm --> neg for cirrhosis and hsm --> Peripheral smear ordered to evaluate for blasts /schistocytes --> abx and other meds have been reviewed --> ok for ppx if plt >50k w/ either heparin or lovenox --> Transfuse if Plt < 20k and fever, or if Plt < 10k without fever --> plt trend 41-->32-->21k-->20 -->61k-->45-->62-->51 --> plt transfusion 01/04 --> for sepsis is on abx # Anemia due to Upper GI bleed, hematuria --> no evidence of hemolysis is noted --> smear noted --> anemia panel reviewed, ferritin high --> no iron or epo needed --> po iron ok --> for hematuria as per urology --> Pending endoscopy when clear from covid19 --> hgb trend: 9.1 ->8.3->6.9-->8.1-->8.3-->7.6 --> prbc: 2 units 01/02, # Leukocytosis due to e/coli/kleb pna --> on connor/wilma--> vanc --> wbc trend 23-->32-->17.1-->13.9 # Hyperkalemia --> kayxelate as needed --> k trend # ARF (acute renal failure) --> per renal # Hyponatremia # Gram negative pneumonia # Ventilator dependent respiratory failure # intracranial hemorrhage # paraplegia # Dysphagia with gtube The timing of this note does not necessarily reflect the time of the patient was seen. Greatly appreciate consultation. Subjective Allergies: Coded Allergies: No Known Allergies (Unverified , 10/07/19) Subjective 01/03obtunded, s/p rbc x2, hgb improved to 9.1, us abd reviewed, hematuria+ 01/04 plt are better, got 1 unit pf platets today as well, plt now 61k, less gi bleed overnight, some black tarry stool noted 01/05 nv, labs noted, hgb 8.5, no hemolysis noted, no bleeding, plt 83, egd tomorrow 01/06 egd for this am, results are pending, labs noted 01/09 no major changes, labs noted, no bleeding wbc higher, on abx 01/10 sdu, wbc improving, inr 1.4, vent, h/h stable, no distress 01/11 hgb 7.6, no tx required, repeat cbc for tomorrow, on vent Objective Objective Current Medications Medications (Trade) Dose Ordered Sig/[place] Route PRN Reason Start Time Stop Time Status Last Admin Dose Admin Acetaminophen (Tylenol) 650 mg Q4H PRN GT Mild Pain (Pain Scale 1-3) 12/31/19 07:45 01/30/20 07:44 Acetaminophen (Tylenol) 650 mg Q4H PRN GT Temp >100.5 12/31/19 07:45 01/30/20 07:44 Al Hydroxide/Mg Hydroxide (Mylanta) 30 ml QIDPRN PRN GT stomach upset 12/31/19 08:00 01/30/20 07:59 Artificial Tears (Akwa-Tears) 1 drop EVERY 12 HOURS BOTH EYES 01/07/20 21:00 01/30/20 10:59 01/11/20 20:45 Atorvastatin Calcium (Lipitor) 80 mg BEDTIME GT 12/31/19 21:00 03/30/20 20:59 01/11/20 20:46 Chlorhexidine Gluconate (Sheela-Hex 2%) 1 applic DAILY@1999 TOPIC 01/02/20 20:00 04/01/20 19:59 01/11/20 20:45 Chlorhexidine Gluconate (Sheela-Hex 2%) 1 applic DAILY@1999 TOPIC 01/13/20 20:00 01/13/20 22:00 Dextrose (Dextrose 50%) 25 ml Q30M PRN IV Hypoglycemia 12/31/19 08:45 01/30/20 08:37 01/10/20 23:24 Dextrose (Dextrose 50%) 50 ml Q30M PRN IV hypoglycemia 12/31/19 08:45 03/30/20 08:44 01/10/20 12:06 Erythromycin (Alexis-Ped) 50 mg Q6HR ORAL 01/12/20 12:00 01/19/20 11:59 Insulin Aspart (NovoLOG) No Dose Q6HR SUBQ 12/31/19 12:00 03/30/20 11:59 01/07/20 18:16 Insulin Detemir (Levemir) 25 units Q12HR SUBQ 12/31/19 10:00 03/30/20 09:59 01/10/20 09:20 Lidocaine HCl (Xylocaine 1% 30ml) 30 ml ONCE INJ 01/13/20 06:00 01/13/20 18:00 Metoclopramide HCl (Reglan) 10 mg Q6H IVP 01/09/20 18:00 02/08/20 17:59 01/10/20 00:50 Pantoprazole (Protonix) 40 mg Q12H IVP 01/02/20 21:00 02/01/20 20:59 01/11/20 20:46 Sodium Bicarbonate 50 ml/ Dextrose 1,050 ml @ 75 mls/hr Q14H IV 01/10/20 23:45 02/09/20 23:44 01/12/20 04:24 Sodium Hypochlorite (Dakin's Half Strength) 1 applic DAILY TOPIC 01/01/20 09:00 01/31/20 08:59 01/11/20 08:15 Vancomycin HCl (Firvanq) 125 mg FOUR TIMES A DAY ORAL 01/10/20 13:00 01/17/20 12:59 01/11/20 20:47 Zinc Sulfate (Zinc Sulfate) 220 mg DAILY GT 12/31/19 09:00 03/30/20 08:59 01/11/20 08:12 Last 24 Hour Vital Signs Date Time Temp Pulse Resp B/P (MAP) Pulse Ox O2 Delivery O2 Flow Rate FiO2 01/12/20 06:54 63 25 40 01/12/20 04:49 65 24 40 01/12/20 04:00 96.3 67 24 122/74 (90) 100 01/12/20 04:00 40 01/12/20 04:00 67 01/12/20 04:00 Mechanical Ventilator 01/12/20 03:30 64 24 40 01/12/20 01:30 62 25 40 01/12/20 00:00 96.4 65 24 106/54 (71) 100 01/12/20 00:00 Mechanical Ventilator 01/12/20 00:00 65 01/11/20 23:30 64 24 40 01/11/20 21:30 65 24 40 01/11/20 20:00 96.3 68 24 143/79 (100) 98 01/11/20 20:00 Mechanical Ventilator 01/11/20 20:00 40 01/11/20 19:30 68 25 40 01/11/20 16:54 66 27 40 01/11/20 16:00 40 01/11/20 16:00 Mechanical Ventilator 01/11/20 16:00 67 01/11/20 16:00 95.7 68 25 155/99 (117) 99 01/11/20 14:58 66 27 40 01/11/20 12:54 70 25 40 01/11/20 12:00 Mechanical Ventilator 01/11/20 12:00 40 01/11/20 12:00 95.5 66 27 153/81 (105) 97 01/11/20 11:43 65 01/11/20 10:49 67 26 40 01/11/20 08:34 68 26 40 01/11/20 08:00 40 01/11/20 08:00 95.7 67 24 154/88 (110) 98 01/11/20 08:00 66 01/11/20 08:00 Mechanical Ventilator 01/11/20 07:01 67 27 40 01/11/20 05:25 66 26 40 01/11/20 04:00 40 01/11/20 04:00 Mechanical Ventilator 01/11/20 04:00 97.4 81 22 134/72 (92) 98 01/11/20 03:48 70 01/11/20 03:19 68 26 40 01/11/20 00:43 72 26 40 01/11/20 00:04 77 01/11/20 00:00 Mechanical Ventilator 01/11/20 00:00 97.2 72 24 136/75 (95) 99 01/10/20 23:34 73 28 40 01/10/20 20:31 64 25 40 01/10/20 20:00 40 01/10/20 20:00 Mechanical Ventilator 01/10/20 20:00 97.4 67 24 139/79 (99) 100 01/10/20 19:25 73 01/10/20 19:16 69 25 40 01/10/20 16:00 97.2 72 24 132/98 (109) 100 01/10/20 16:00 Mechanical Ventilator 01/10/20 16:00 40 01/10/20 15:46 70 01/10/20 15:25 74 30 40 01/10/20 12:00 Mechanical Ventilator 01/10/20 12:00 40 01/10/20 12:00 96.7 75 24 133/107 (116) 100 01/10/20 11:28 74 01/10/20 11:10 72 26 40 01/10/20 08:00 Mechanical Ventilator 01/10/20 08:00 40 01/10/20 08:00 97.2 67 24 134/75 (94) 96 01/10/20 07:46 68 Intake and Output 01/11/20 01/12/20 19:00 07:00 Intake Total 913.75 ml 600 ml Output Total 750 ml 700 ml Balance 163.75 ml -100 ml IV Total 873.75 ml 600 ml Tube Feeding 40 ml Output Urine Total 750 ml 700 ml # Bowel Movements 5 1 Labs Test 01/09/20 18:35 01/10/20 03:00 01/10/20 04:00 01/10/20 06:15 White Blood Count 22.9 K/UL (4.8-10.8) 40.3 K/UL (4.8-10.8) Red Blood Count 2.33 M/UL (4.70-6.10) 2.78 M/UL (4.70-6.10) Hemoglobin 6.9 G/DL (14.2-18.0) 8.1 G/DL (14.2-18.0) Hematocrit 21.6 % (42.0-52.0) 23.7 % (42.0-52.0) Mean Corpuscular Volume 93 FL (80-99) 85 FL (80-99) Mean Corpuscular Hemoglobin 29.4 PG (27.0-31.0) 29.3 PG (27.0-31.0) Mean Corpuscular Hemoglobin Concent 31.8 G/DL (32.0-36.0) 34.3 G/DL (32.0-36.0) Red Cell Distribution Width 15.5 % (11.6-14.8) 13.5 % (11.6-14.8) Platelet Count 44 K/UL (150-450) 45 K/UL (150-450) Mean Platelet Volume 16.0 FL (6.5-10.1) 13.4 FL (6.5-10.1) Neutrophils (%) (Auto) % (45.0-75.0) % (45.0-75.0) Lymphocytes (%) (Auto) % (20.0-45.0) % (20.0-45.0) Monocytes (%) (Auto) % (1.0-10.0) % (1.0-10.0) Eosinophils (%) (Auto) % (0.0-3.0) % (0.0-3.0) Basophils (%) (Auto) % (0.0-2.0) % (0.0-2.0) Differential Total Cells Counted 100 100 Neutrophils % (Manual) 92 % (45-75) 93 % (45-75) Lymphocytes % (Manual) 2 % (20-45) 3 % (20-45) Monocytes % (Manual) 3 % (1-10) 4 % (1-10) Eosinophils % (Manual) 3 % (0-3) 0 % (0-3) Basophils % (Manual) 0 % (0-2) 0 % (0-2) Band Neutrophils 0 % (0-8) 0 % (0-8) Platelet Estimate Decreased Decreased Platelet Morphology Normal Normal Hypochromasia 1+ Stool Occult Blood Positive (NEGATIVE) Sodium Level 137 MMOL/L (136-145) Potassium Level 3.3 MMOL/L (3.5-5.1) Chloride Level 103 MMOL/L (98-107) Carbon Dioxide Level 19 MMOL/L (21-32) Anion Gap 15 mmol/L (5-15) Blood Urea Nitrogen 137 mg/dL (7-18) Creatinine 4.3 MG/DL (0.55-1.30) Estimat Glomerular Filtration Rate 17.6 mL/min (>60) Glucose Level 164 MG/DL (74-106) Calcium Level 8.6 MG/DL (8.5-10.1) Prothrombin Time 15.3 SEC (9.30-11.50) Prothromb Time International Ratio 1.4 (0.9-1.1) Lactic Acid Level 0.90 mmol/L (0.4-2.0) Test 01/11/20 06:08 01/12/20 04:00 White Blood Count 17.1 K/UL (4.8-10.8) 13.9 K/UL (4.8-10.8) Red Blood Count 2.72 M/UL (4.70-6.10) 2.50 M/UL (4.70-6.10) Hemoglobin 8.3 G/DL (14.2-18.0) 7.6 G/DL (14.2-18.0) Hematocrit 22.7 % (42.0-52.0) 20.6 % (42.0-52.0) Mean Corpuscular Volume 83 FL (80-99) 82 FL (80-99) Mean Corpuscular Hemoglobin 30.5 PG (27.0-31.0) 30.4 PG (27.0-31.0) Mean Corpuscular Hemoglobin Concent 36.6 G/DL (32.0-36.0) 36.9 G/DL (32.0-36.0) Red Cell Distribution Width 13.2 % (11.6-14.8) 12.8 % (11.6-14.8) Platelet Count 62 K/UL (150-450) 51 K/UL (150-450) Mean Platelet Volume 16.5 FL (6.5-10.1) 13.8 FL (6.5-10.1) Neutrophils (%) (Auto) % (45.0-75.0) % (45.0-75.0) Lymphocytes (%) (Auto) % (20.0-45.0) % (20.0-45.0) Monocytes (%) (Auto) % (1.0-10.0) % (1.0-10.0) Eosinophils (%) (Auto) % (0.0-3.0) % (0.0-3.0) Basophils (%) (Auto) % (0.0-2.0) % (0.0-2.0) Differential Total Cells Counted 100 Neutrophils % (Manual) 87 % (45-75) Lymphocytes % (Manual) 4 % (20-45) Monocytes % (Manual) 7 % (1-10) Eosinophils % (Manual) 2 % (0-3) Basophils % (Manual) 0 % (0-2) Band Neutrophils 0 % (0-8) Platelet Estimate Decreased Platelet Morphology Normal Anisocytosis 1+ Prothrombin Time 15.1 SEC (9.30-11.50) Prothromb Time International Ratio 1.4 (0.9-1.1) Sodium Level 136 MMOL/L (136-145) Potassium Level 3.8 MMOL/L (3.5-5.1) Chloride Level 103 MMOL/L (98-107) Carbon Dioxide Level 19 MMOL/L (21-32) Anion Gap 14 mmol/L (5-15) Blood Urea Nitrogen 134 mg/dL (7-18) Creatinine 4.3 MG/DL (0.55-1.30) Estimat Glomerular Filtration Rate 17.6 mL/min (>60) Glucose Level 113 MG/DL (74-106) Calcium Level 8.3 MG/DL (8.5-10.1) Height (Feet): 5 Height (Inches): 5.00 Weight (Pounds): 168 Objective Physical Exam: Vitals: reviewed General: NAD ++obtunded HEENT: nc, at, mouth guard+ Neck: supple++trach Chest: clear breath sounds bilaterally Cardiovascular: RRR, no s3, s4 Abdomen: soft, nontender, nd ++gtube Extremities: no cce, normal range of motion, ++ Spasticity in the left upper extremity. Flaccid on the right. Neuro: nonfocal : skinny+ Wilmer Turner MD January 12, 2020 07:46
[2020-01-12] MEDS: Vancomycin oral 125mg/2.5ml ORAL SCH (08:41)
[2020-01-12] MEDS: Zinc Sulfate 220mg GT SCH (08:41)
[2020-01-12] MEDS: Dakin's 0.25% (Half Strength) 16oz TOPIC SCH (08:41)
[2020-01-12] MEDS: Pantoprazole Inj IVP SCH ×2 (08:41→20:32)
[2020-01-12] MEDS: Levemir Flexpen SUBQ SCH ×2 (08:44→20:34)
--- NOTE | 2020-01-12 11:14 | Infectious Diseases Prog Note ---
Assessment/Plan Assessment/Plan A 1. E. coli, Klebsiella & Pseudomonas pneumonia 2. Acute renal failure 3. Ventilator dependent respiratory failure 4. intracranial hemorrhage 5. paraplegia 6. leucocytosis improving 7. GI bleeding 8. Anemia 9. COVID19 test X 2: negative 10- Gangrene of feet 11. Thrombocytopenia P 1. continue PO Vancomycin 2. Poor prognosis Subjective Constitutional: Reports: other - hypothermia Gastrointestinal/Abdominal: Reports: diarrhea Allergies: Coded Allergies: No Known Allergies (Unverified , 10/07/19) Objective Vital Signs Last 24 Hour Vital Signs Date Time Temp Pulse Resp B/P (MAP) Pulse Ox O2 Delivery O2 Flow Rate FiO2 01/12/20 10:49 67 25 40 01/12/20 09:42 65 25 40 01/12/20 09:00 Mechanical Ventilator 01/12/20 08:00 63 01/12/20 08:00 40 01/12/20 08:00 95.7 64 25 131/77 (95) 99 01/12/20 06:54 63 25 40 01/12/20 04:49 65 24 40 01/12/20 04:00 96.3 67 24 122/74 (90) 100 01/12/20 04:00 40 01/12/20 04:00 67 01/12/20 04:00 Mechanical Ventilator 01/12/20 03:30 64 24 40 01/12/20 01:30 62 25 40 01/12/20 00:00 96.4 65 24 106/54 (71) 100 01/12/20 00:00 Mechanical Ventilator 01/12/20 00:00 65 01/11/20 23:30 64 24 40 01/11/20 21:30 65 24 40 01/11/20 20:00 96.3 68 24 143/79 (100) 98 01/11/20 20:00 Mechanical Ventilator 01/11/20 20:00 40 01/11/20 19:30 68 25 40 01/11/20 16:54 66 27 40 01/11/20 16:00 40 01/11/20 16:00 Mechanical Ventilator 01/11/20 16:00 67 01/11/20 16:00 95.7 68 25 155/99 (117) 99 01/11/20 14:58 66 27 40 01/11/20 12:54 70 25 40 01/11/20 12:00 Mechanical Ventilator 01/11/20 12:00 40 01/11/20 12:00 95.5 66 27 153/81 (105) 97 01/11/20 11:43 65 Height (Feet): 5 Height (Inches): 5.00 Weight (Pounds): 168 HEENT: status post trach Respiratory/Chest: lungs clear, other - on Ventilator Cardiovascular: normal rate Abdomen: soft, non tender, other - GT Extremities: other - generalized edema, feet gangrene Skin: ulcers, other - sacral ulcer Neurologic/Psychiatric: unresponsiveness Microbiology Date/Time Source Procedure Growth Status 01/10/20 11:50 Blood Blood Culture - Preliminary NO GROWTH AFTER 24 HOURS Resulted Laboratory Tests Test 01/12/20 04:00 White Blood Count 13.9 K/UL (4.8-10.8) H Red Blood Count 2.50 M/UL (4.70-6.10) L Hemoglobin 7.6 G/DL (14.2-18.0) L Hematocrit 20.6 % (42.0-52.0) L Mean Corpuscular Volume 82 FL (80-99) Mean Corpuscular Hemoglobin 30.4 PG (27.0-31.0) Mean Corpuscular Hemoglobin Concent 36.9 G/DL (32.0-36.0) H Red Cell Distribution Width 12.8 % (11.6-14.8) Platelet Count 51 K/UL (150-450) L Mean Platelet Volume 13.8 FL (6.5-10.1) H Neutrophils (%) (Auto) % (45.0-75.0) Lymphocytes (%) (Auto) % (20.0-45.0) Monocytes (%) (Auto) % (1.0-10.0) Eosinophils (%) (Auto) % (0.0-3.0) Basophils (%) (Auto) % (0.0-2.0) Differential Total Cells Counted 100 Neutrophils % (Manual) 84 % (45-75) H Lymphocytes % (Manual) 7 % (20-45) L Monocytes % (Manual) 2 % (1-10) Eosinophils % (Manual) 7 % (0-3) H Basophils % (Manual) 0 % (0-2) Band Neutrophils 0 % (0-8) Platelet Estimate Decreased L Platelet Morphology Giant Platelets Occasional Anisocytosis 1+ Current Medications Medications (Trade) Dose Ordered Sig/[place] Route PRN Reason Start Time Stop Time Status Last Admin Dose Admin Acetaminophen (Tylenol) 650 mg Q4H PRN GT Mild Pain (Pain Scale 1-3) 12/31/19 07:45 01/30/20 07:44 Acetaminophen (Tylenol) 650 mg Q4H PRN GT Temp >100.5 12/31/19 07:45 01/30/20 07:44 Al Hydroxide/Mg Hydroxide (Mylanta) 30 ml QIDPRN PRN GT stomach upset 12/31/19 08:00 01/30/20 07:59 Artificial Tears (Akwa-Tears) 1 drop EVERY 12 HOURS BOTH EYES 01/07/20 21:00 01/30/20 10:59 01/12/20 08:41 Atorvastatin Calcium (Lipitor) 80 mg BEDTIME GT 12/31/19 21:00 03/30/20 20:59 01/11/20 20:46 Chlorhexidine Gluconate (Sheela-Hex 2%) 1 applic DAILY@1999 TOPIC 01/02/20 20:00 04/01/20 19:59 01/11/20 20:45 Chlorhexidine Gluconate (Sheela-Hex 2%) 1 applic DAILY@1999 TOPIC 01/13/20 20:00 01/13/20 22:00 Dextrose (Dextrose 50%) 25 ml Q30M PRN IV Hypoglycemia 12/31/19 08:45 01/30/20 08:37 01/10/20 23:24 Dextrose (Dextrose 50%) 50 ml Q30M PRN IV hypoglycemia 12/31/19 08:45 03/30/20 08:44 01/10/20 12:06 Erythromycin (Alexis-Ped) 50 mg Q6HR ORAL 01/12/20 12:00 01/19/20 11:59 Insulin Aspart (NovoLOG) No Dose Q6HR SUBQ 12/31/19 12:00 03/30/20 11:59 01/07/20 18:16 Insulin Detemir (Levemir) 25 units Q12HR SUBQ 12/31/19 10:00 03/30/20 09:59 01/12/20 08:44 Lidocaine HCl (Xylocaine 1% 30ml) 30 ml ONCE INJ 01/13/20 06:00 01/13/20 18:00 Metoclopramide HCl (Reglan) 10 mg Q6H IVP 01/09/20 18:00 02/08/20 17:59 01/10/20 00:50 Pantoprazole (Protonix) 40 mg Q12H IVP 01/02/20 21:00 02/01/20 20:59 01/12/20 08:41 Sodium Bicarbonate 50 ml/ Dextrose 1,050 ml @ 75 mls/hr Q14H IV 01/10/20 23:45 02/09/20 23:44 01/12/20 04:24 Sodium Hypochlorite (Dakin's Half Strength) 1 applic DAILY TOPIC 01/01/20 09:00 01/31/20 08:59 01/12/20 08:41 Vancomycin HCl (Firvanq) 125 mg FOUR TIMES A DAY ORAL 01/10/20 13:00 01/17/20 12:59 01/12/20 08:41 Zinc Sulfate (Zinc Sulfate) 220 mg DAILY GT 12/31/19 09:00 03/30/20 08:59 01/12/20 08:41 Anastacio Bustillo MD January 12, 2020 11:14
[2020-01-12] MEDS ORDERED: Erythromycin Ethylsuccinate 200mg/5ml Susp ORAL SCH (12:00)
--- NOTE | 2020-01-12 12:27 | Surgery Progress Note ---
Surgery Progress Note Subjective Procedure Performed right femoral central venous catheter insertion Additional Comments wbc improved plt down h/h anemia exam poor unchanged Objective Last 24 Hour Vital Signs Date Time Temp Pulse Resp B/P (MAP) Pulse Ox O2 Delivery O2 Flow Rate FiO2 01/12/20 10:49 67 25 40 01/12/20 09:42 65 25 40 01/12/20 09:00 Mechanical Ventilator 01/12/20 08:00 63 01/12/20 08:00 40 01/12/20 08:00 95.7 64 25 131/77 (95) 99 01/12/20 06:54 63 25 40 01/12/20 04:49 65 24 40 01/12/20 04:00 96.3 67 24 122/74 (90) 100 01/12/20 04:00 40 01/12/20 04:00 67 01/12/20 04:00 Mechanical Ventilator 01/12/20 03:30 64 24 40 01/12/20 01:30 62 25 40 01/12/20 00:00 96.4 65 24 106/54 (71) 100 01/12/20 00:00 Mechanical Ventilator 01/12/20 00:00 65 01/11/20 23:30 64 24 40 01/11/20 21:30 65 24 40 01/11/20 20:00 96.3 68 24 143/79 (100) 98 01/11/20 20:00 Mechanical Ventilator 01/11/20 20:00 40 01/11/20 19:30 68 25 40 01/11/20 16:54 66 27 40 01/11/20 16:00 40 01/11/20 16:00 Mechanical Ventilator 01/11/20 16:00 67 01/11/20 16:00 95.7 68 25 155/99 (117) 99 01/11/20 14:58 66 27 40 01/11/20 12:54 70 25 40 I&O Intake and Output 01/11/20 01/12/20 19:00 07:00 Intake Total 913.75 ml 600 ml Output Total 750 ml 700 ml Balance 163.75 ml -100 ml IV Total 873.75 ml 600 ml Tube Feeding 40 ml Output Urine Total 750 ml 700 ml # Bowel Movements 5 1 Dressing: other Wound: other Cardiovascular: RSR Respiratory: decreased breath sounds Abdomen: soft, non-tender, present bowel sounds Extremities: no cyanosis Laboratory Tests Test 5/31/20 04:00 White Blood Count 13.9 K/UL (4.8-10.8) H Red Blood Count 2.50 M/UL (4.70-6.10) L Hemoglobin 7.6 G/DL (14.2-18.0) L Hematocrit 20.6 % (42.0-52.0) L Mean Corpuscular Volume 82 FL (80-99) Mean Corpuscular Hemoglobin 30.4 PG (27.0-31.0) Mean Corpuscular Hemoglobin Concent 36.9 G/DL (32.0-36.0) H Red Cell Distribution Width 12.8 % (11.6-14.8) Platelet Count 51 K/UL (150-450) L Mean Platelet Volume 13.8 FL (6.5-10.1) H Neutrophils (%) (Auto) % (45.0-75.0) Lymphocytes (%) (Auto) % (20.0-45.0) Monocytes (%) (Auto) % (1.0-10.0) Eosinophils (%) (Auto) % (0.0-3.0) Basophils (%) (Auto) % (0.0-2.0) Differential Total Cells Counted 100 Neutrophils % (Manual) 84 % (45-75) H Lymphocytes % (Manual) 7 % (20-45) L Monocytes % (Manual) 2 % (1-10) Eosinophils % (Manual) 7 % (0-3) H Basophils % (Manual) 0 % (0-2) Band Neutrophils 0 % (0-8) Platelet Estimate Decreased L Platelet Morphology Giant Platelets Occasional Anisocytosis 1+ Plan Problems: (1) Hyponatremia (2) ARF (acute renal failure) (3) Hyperkalemia (4) Pressure sore on sacrum Assessment & Plan: Pt presented on admission with Sacral Pressure injury and Necrosis Both Both R lower ext, R foot and L foot. Generalized edema noted. Both upper ext noted to have multiple serous blisters ,some of which are weeping serous exudate. Full thickness Sacral Pressure Injury with undermined Borders. Base of wound is 75% loose necrotic tissue,25% bree. Bone exposure at base of wound. Area of necrosis noted at distal aspect of wound in space between wound and anus.Edges are macerated. Wound is malodorous.(L)9.5cm x (W)9.2cm x (D)2.9cm,undermining clockwise 10-3 by 3.8cm @12 o'clock. Scattered areas of hyperpigmentation noted to R and L clefts of buttocks. Unable to determine exudate as pt is continuously oozing large amt of semi soft black stool and leaking into wound because of close proximity to his rectum. At upper, R gluteal cheek is additional Pressure Injury with small amt Biofilm at base of wound. Edges are pink and adherent to base of wound. No exudate noted.(L)3cm x (W)2.6cm. Medially to distal Tibia,and extending to R foot is necrotic and malodorous.Wound is partially opened at posterior R tibia but is dry . L foot is necrotic and malodorous. No exudate noted. Tx.Plan: Cleanse Sacral wound with Dakin's 0.25% archana.. Loosely Pack wound with Dakin's moistened Kerlix.Apply Moisture Barrier Paste periwound.Cover with Optifoam drsg.Change Daily and PRN. Cleanse R lower ext and R foot with Dakin's 0.25% Archana. Cover wounds with ABD Pads.Wrap with Kerlix Daily and prn. Cleanse L foot Wounds with Dakin's 0.25% Archana. Cover wounds with ABD Pads and wrap with Kerlix Daily and prn. (5) Upper GI bleed Assessment & Plan: Patient with sepsis, abnormal labs, GI bleed, pending COVID eval. Labs noted. Exam reviewed. Chest x-ray noted as below. Discussed with GI. Plan for endoscopy once COVID status evaluated. Trend hemoglobin for now transfuse PRN. G-tube is functional and okay for medications and will plan tube feeds accordingly. No acute surgical intervention as patient is actively bleeding. Proton pump inhibitor recommended and Rx as written. Will follow with recommendations thank you for let me participate in patient's care There is a tracheostomy in place. Vascularity is normal. Hazy densities in the lung bases may be layering effusions. Cardiac and mediastinal silhouette are within normal limits. The bony thorax appear unremarkable. IMPRESSION: Bibasilar hazy densities perhaps layering effusions. right fem line not functional noted manipulation as suture was dislodged. line replaced 1. Two or three gastric AVMs. 2. Ulcer with a small visible vessel, status post gold probe bipolar cauterization. DAILY ESTIMATED NEEDS: Needs based on Critical Care, Wounds, TR / 61kg 25-30 kcals/kg 7234-5970 total kcals 0.8-1.25 (increase w/ renal improvement) g protein/kg 49-76 g total protein 25-30 mL/kg [id number] total fluid mLs NUTRITION DIAGNOSIS: * Swallowing difficulty R/T respiratory status, dysphagia as evidenced by trach/vent dep, PEG dep. * Increased kcal/prot intake needs R/T wound healing as evidenced by admitted w/ multiple wounds including full thickness wound @ sacrum, pressure Injury with small amt Biofilm at base of wound @ upper R gluteal cheek, necrotic wound @ medial to distal Tibia,and extending to R foot and L foot * Altered nutrition related lab R/T TR as evidenced by elev BUN (215-> 134), elev creat (5.2->4.3), low Na (124 -> wnl), elev K (6.7 -> wnl) CURRENT TF:TF HELD ENTERAL NUTRITION RECOMMENDATIONS: Nepro @ 38ml/hr x 24 hrs to provide 912ml, 1642kcal, 74g prot, 663ml free water * Once medically appropriate to feed, initiate TF -> rec Nepro at this time given TR (Creat 5.2 -> 4.3) w/ elev K upon adm * Initiate Nepro @ 18ml/hr x 6hrs, advance 10ml q 4-6 hrs as tolerated to goal rate * HOB over 30 degrees/ water flush per MD Monitor renal fxn closely, need to continue renal TF formula ADDITIONAL RECOMMENDATIONS: * Per SNF: HT=62" WT= 135lbs (12/25/19) * Monitor renal fxn and lytes (slowly improving renal fxn) * Monitor ability to resume TF- TF holding cont to be needed, consider initiating parenteral nutrition * Wound healing: add Ajay BID w/ TF order * Monitor for hypoglycemia: rec to hold ALL insulin while pt is NPO Javid Singh January 12, 2020 12:27
--- NOTE | 2020-01-12 13:00 | Pulmonology Progress Note ---
Subjective ROS Limited/Unobtainable: No Constitutional: Reports: other - hypothermia Gastrointestinal/Abdominal: Reports: diarrhea Allergies: Coded Allergies: No Known Allergies (Unverified , 10/07/19) All Systems: reviewed and negative except above Objective Last 24 Hour Vital Signs Date Time Temp Pulse Resp B/P (MAP) Pulse Ox O2 Delivery O2 Flow Rate FiO2 01/12/20 10:49 67 25 40 01/12/20 09:42 65 25 40 01/12/20 09:00 Mechanical Ventilator 01/12/20 08:00 63 01/12/20 08:00 40 01/12/20 08:00 95.7 64 25 131/77 (95) 99 01/12/20 06:54 63 25 40 01/12/20 04:49 65 24 40 01/12/20 04:00 96.3 67 24 122/74 (90) 100 01/12/20 04:00 40 01/12/20 04:00 67 01/12/20 04:00 Mechanical Ventilator 01/12/20 03:30 64 24 40 01/12/20 01:30 62 25 40 01/12/20 00:00 96.4 65 24 106/54 (71) 100 01/12/20 00:00 Mechanical Ventilator 01/12/20 00:00 65 01/11/20 23:30 64 24 40 01/11/20 21:30 65 24 40 01/11/20 20:00 96.3 68 24 143/79 (100) 98 01/11/20 20:00 Mechanical Ventilator 01/11/20 20:00 40 01/11/20 19:30 68 25 40 01/11/20 16:54 66 27 40 01/11/20 16:00 40 01/11/20 16:00 Mechanical Ventilator 01/11/20 16:00 67 01/11/20 16:00 95.7 68 25 155/99 (117) 99 01/11/20 14:58 66 27 40 Intake and Output 01/11/20 01/12/20 19:00 07:00 Intake Total 913.75 ml 600 ml Output Total 750 ml 700 ml Balance 163.75 ml -100 ml IV Total 873.75 ml 600 ml Tube Feeding 40 ml Output Urine Total 750 ml 700 ml # Bowel Movements 5 1 Microbiology Date/Time Source Procedure Growth Status 01/10/20 11:50 Blood Blood Culture - Preliminary NO GROWTH AFTER 24 HOURS Resulted Laboratory Tests 01/12/20 04:00: White Blood Count 13.9H, Red Blood Count 2.50L, Hemoglobin 7.6L, Hematocrit 20.6L, Mean Corpuscular Volume 82, Mean Corpuscular Hemoglobin 30.4, Mean Corpuscular Hemoglobin Concent 36.9H, Red Cell Distribution Width 12.8, Platelet Count 51L, Mean Platelet Volume 13.8H, Neutrophils (%) (Auto) , Lymphocytes (%) (Auto) , Monocytes (%) (Auto) , Eosinophils (%) (Auto) , Basophils (%) (Auto) , Differential Total Cells Counted 100, Neutrophils % ( Manual) 84H, Lymphocytes % (Manual) 7L, Monocytes % (Manual) 2, Eosinophils % ( Manual) 7H, Basophils % (Manual) 0, Band Neutrophils 0, Platelet Estimate DecreasedL, Platelet Morphology , Giant Platelets Occasional, Anisocytosis 1+ Current Medications Medications (Trade) Dose Ordered Sig/[place] Route PRN Reason Start Time Stop Time Status Last Admin Dose Admin Acetaminophen (Tylenol) 650 mg Q4H PRN GT Mild Pain (Pain Scale 1-3) 12/31/19 07:45 01/30/20 07:44 Acetaminophen (Tylenol) 650 mg Q4H PRN GT Temp >100.5 12/31/19 07:45 01/30/20 07:44 Al Hydroxide/Mg Hydroxide (Mylanta) 30 ml QIDPRN PRN GT stomach upset 12/31/19 08:00 01/30/20 07:59 Artificial Tears (Akwa-Tears) 1 drop EVERY 12 HOURS BOTH EYES 01/07/20 21:00 01/30/20 10:59 01/12/20 08:41 Atorvastatin Calcium (Lipitor) 80 mg BEDTIME GT 12/31/19 21:00 03/30/20 20:59 01/11/20 20:46 Chlorhexidine Gluconate (Sheela-Hex 2%) 1 applic DAILY@1999 TOPIC 01/02/20 20:00 04/01/20 19:59 01/11/20 20:45 Chlorhexidine Gluconate (Sheela-Hex 2%) 1 applic DAILY@1999 TOPIC 01/13/20 20:00 01/13/20 22:00 Dextrose (Dextrose 50%) 25 ml Q30M PRN IV Hypoglycemia 12/31/19 08:45 01/30/20 08:37 01/10/20 23:24 Dextrose (Dextrose 50%) 50 ml Q30M PRN IV hypoglycemia 12/31/19 08:45 03/30/20 08:44 01/10/20 12:06 Erythromycin (Alexis-Ped) 50 mg Q6HR GT 01/12/20 12:00 01/19/20 11:59 Insulin Aspart (NovoLOG) No Dose Q6HR SUBQ 12/31/19 12:00 03/30/20 11:59 01/12/20 12:08 Insulin Detemir (Levemir) 25 units Q12HR SUBQ 12/31/19 10:00 03/30/20 09:59 01/12/20 08:44 Lidocaine HCl (Xylocaine 1% 30ml) 30 ml ONCE INJ 01/13/20 06:00 01/13/20 18:00 Metoclopramide HCl (Reglan) 10 mg Q6H IVP 01/09/20 18:00 02/08/20 17:59 01/10/20 00:50 Pantoprazole (Protonix) 40 mg Q12H IVP 01/02/20 21:00 02/01/20 20:59 01/12/20 08:41 Sodium Bicarbonate 50 ml/ Dextrose 1,050 ml @ 75 mls/hr Q14H IV 01/10/20 23:45 02/09/20 23:44 01/12/20 04:24 Sodium Hypochlorite (Dakin's Half Strength) 1 applic DAILY TOPIC 01/01/20 09:00 01/31/20 08:59 01/12/20 08:41 Vancomycin HCl (Firvanq) 125 mg FOUR TIMES A DAY GT 01/12/20 13:00 01/17/20 12:59 Zinc Sulfate (Zinc Sulfate) 220 mg DAILY GT 12/31/19 09:00 03/30/20 08:59 01/12/20 08:41 Assessment/Plan Assessment/Plan Pulmonary Progress Note Subjective ROS Limited/Unobtainable: Yes Constitutional: Reports: other - on warming blanket Gastrointestinal/Abdominal: Reports: diarrhea Allergies: No Known Allergies Subjective care noted on vent sp transfusion renal function impaired Objective Vital Signs noted Objective WDWN trach clear equal breath sounds bilaterally [id number] without MRG NABS nontender no HSM no CCE poor LOC reviewed and edited Laboratory Tests Noted Assessment/Plan IMPRESSION chronic respiratory failure Acute on chronic renal failure elevated K anemia GIB leukocytosis possible sepsis oral bleeding PLAN monitor HH- transfuse as needed monitor wbc IV hydration iv antibiotics ID , GI and renal vent as is monitor vitals hold feeds snf meds full code prognosis very poor for recovery difficult to optimize impression, plan, and exam edited and reviewed in detail care discussed with RN Jovi Dickey MD January 12, 2020 13:00
[2020-01-12] MEDS: Vancomycin oral 125mg/2.5ml GT SCH ×3 (13:13→20:28)
[2020-01-12] MEDS: Erythromycin Ethylsuccinate 200mg/5ml Susp GT SCH ×2 (13:13→17:04)
--- NOTE | 2020-01-12 15:51 | Nephrology Progress Note ---
Assessment/Plan Assessment 1) TR with azotemia 2) Probable UGI bleed 3) VDRF Plan: Will watch evolution of kidney fx Will need dialysis Subjective Subjective He is still on the vent, WBC is down to 13k Objective Objective Last 24 Hour Vital Signs Date Time Temp Pulse Resp B/P (MAP) Pulse Ox O2 Delivery O2 Flow Rate FiO2 01/12/20 15:05 63 24 40 01/12/20 13:10 65 27 40 01/12/20 12:00 75 01/12/20 12:00 96.1 71 24 129/78 (95) 94 01/12/20 12:00 40 01/12/20 12:00 40 01/12/20 12:00 Mechanical Ventilator 01/12/20 10:49 67 25 40 01/12/20 09:42 65 25 40 01/12/20 09:00 Mechanical Ventilator 01/12/20 08:00 63 01/12/20 08:00 40 01/12/20 08:00 95.7 64 25 131/77 (95) 99 01/12/20 06:54 63 25 40 01/12/20 04:49 65 24 40 01/12/20 04:00 96.3 67 24 122/74 (90) 100 01/12/20 04:00 40 01/12/20 04:00 67 01/12/20 04:00 Mechanical Ventilator 01/12/20 03:30 64 24 40 01/12/20 01:30 62 25 40 01/12/20 00:00 96.4 65 24 106/54 (71) 100 01/12/20 00:00 Mechanical Ventilator 01/12/20 00:00 65 01/11/20 23:30 64 24 40 01/11/20 21:30 65 24 40 01/11/20 20:00 96.3 68 24 143/79 (100) 98 01/11/20 20:00 Mechanical Ventilator 01/11/20 20:00 40 01/11/20 19:30 68 25 40 01/11/20 16:54 66 27 40 01/11/20 16:00 40 01/11/20 16:00 Mechanical Ventilator 01/11/20 16:00 67 01/11/20 16:00 95.7 68 25 155/99 (117) 99 Intake and Output 01/11/20 01/12/20 18:59 06:59 Intake Total 865 ml 648.75 ml Output Total 750 ml 700 ml Balance 115 ml -51.25 ml IV Total 825 ml 648.75 ml Tube Feeding 40 ml Output Urine Total 750 ml 700 ml # Bowel Movements 5 1 Laboratory Tests 01/12/20 04:00: White Blood Count 13.9H, Red Blood Count 2.50L, Hemoglobin 7.6L, Hematocrit 20.6L, Mean Corpuscular Volume 82, Mean Corpuscular Hemoglobin 30.4, Mean Corpuscular Hemoglobin Concent 36.9H, Red Cell Distribution Width 12.8, Platelet Count 51L, Mean Platelet Volume 13.8H, Neutrophils (%) (Auto) , Lymphocytes (%) (Auto) , Monocytes (%) (Auto) , Eosinophils (%) (Auto) , Basophils (%) (Auto) , Differential Total Cells Counted 100, Neutrophils % ( Manual) 84H, Lymphocytes % (Manual) 7L, Monocytes % (Manual) 2, Eosinophils % ( Manual) 7H, Basophils % (Manual) 0, Band Neutrophils 0, Platelet Estimate DecreasedL, Platelet Morphology , Giant Platelets Occasional, Anisocytosis 1+ Height (Feet): 5 Height (Inches): 5.00 Weight (Pounds): 168 General Appearance: WD/WN, no apparent distress EENT: PERRL/EOMI Neck: non-tender, normal alignment Cardiovascular: normal rate, regular rhythm Respiratory/Chest: chest wall non-tender Abdomen: normal bowel sounds, non tender Extremities: normal capillary refill Neurologic: unresponsive Keanu Fitzpatrick MD January 12, 2020 15:51
[2020-01-12] MEDS ORDERED: NS 275ml ONE (18:01)
[2020-01-12] MEDS: Dyna-Hex 2% Top Sol 2oz TOPIC SCH (20:28)
[2020-01-12] MEDS: Atorvastatin 80mg tab GT SCH (20:28)
[2020-01-13] MEDS: Erythromycin Ethylsuccinate 200mg/5ml Susp GT SCH ×4 (01:39→17:06)
[2020-01-13 04:00] VITALS: BP 127/72
[2020-01-13 05:25] LABS: ANION GAP 13 mmol/L (5-15); BLOOD UREA NITROGEN 122 mg/dL (7-18); CALCIUM 7.6 MG/DL (8.5-10.1); CARBON DIOXIDE 22 MMOL/L (21-32); CHLORIDE 103 MMOL/L (98-107); CREATININE 4.3 MG/DL (0.55-1.30); SODIUM 137 MMOL/L (136-145)
[2020-01-13] MEDS: Insulin NovoLOG Flexpen S/S (Mod) SUBQ SCH ×3 (05:54→17:06)
[2020-01-13] MEDS ORDERED: Lidocaine 1% Plain 30 ml INJ SCH (06:00)
[2020-01-13] MEDS: Metoclopramide 10mg/2ml Inj IVP SCH ×3 (06:04→17:06)
[2020-01-13 08:00] VITALS: BP 127/71
--- NOTE | 2020-01-13 08:32 | Pulmonology Progress Note ---
Subjective ROS Limited/Unobtainable: Yes Constitutional: Reports: other - hypothermia Gastrointestinal/Abdominal: Reports: diarrhea Allergies: Coded Allergies: No Known Allergies (Unverified , 10/07/19) All Systems: reviewed and negative except above Subjective care noted on vent HH dropped and transfused renal function poor Objective Last 24 Hour Vital Signs Date Time Temp Pulse Resp B/P (MAP) Pulse Ox O2 Delivery O2 Flow Rate FiO2 01/13/20 05:08 72 25 40 01/13/20 04:00 40 01/13/20 04:00 Mechanical Ventilator 01/13/20 04:00 97.9 73 29 127/72 (90) 97 01/13/20 04:00 71 01/13/20 03:26 71 27 40 01/13/20 01:03 69 24 40 01/13/20 00:00 40 01/13/20 00:00 Mechanical Ventilator 01/13/20 00:00 69 01/12/20 23:50 97.1 70 24 113/62 (79) 98 01/12/20 23:18 69 24 40 01/12/20 21:32 70 27 40 01/12/20 20:00 Mechanical Ventilator 01/12/20 20:00 40 01/12/20 20:00 96.8 69 30 133/79 (97) 95 01/12/20 20:00 68 01/12/20 19:36 63 26 40 01/12/20 16:59 68 28 40 01/12/20 16:00 40 01/12/20 16:00 63 01/12/20 16:00 96.1 62 21 109/73 (85) 96 01/12/20 16:00 Mechanical Ventilator 01/12/20 15:05 63 24 40 01/12/20 13:10 65 27 40 01/12/20 12:00 75 01/12/20 12:00 96.1 71 24 129/78 (95) 94 01/12/20 12:00 40 01/12/20 12:00 40 01/12/20 12:00 Mechanical Ventilator 01/12/20 10:49 67 25 40 01/12/20 09:42 65 25 40 01/12/20 09:00 Mechanical Ventilator Intake and Output 01/12/20 01/13/20 18:59 06:59 Intake Total 645 ml 1295 ml Output Total 650 ml Balance -5 ml 1295 ml Intake Free Water 20 ml 100 ml IV Total 525 ml 975 ml Tube Feeding 100 ml 220 ml Output Urine Total 650 ml # Bowel Movements 1 Objective WDWN trach clear breath sounds bilaterally without rhonchi or wheeze [id number] without MRG NABS nontender no HSM no CCE poor LOC reviewed and edited Microbiology Date/Time Source Procedure Growth Status 01/10/20 11:50 Blood Blood Culture - Preliminary NO GROWTH AFTER 48 HOURS Resulted Laboratory Tests 01/13/20 03:45: White Blood Count [Pending], Red Blood Count [Pending], Hemoglobin [Pending], Hematocrit [Pending], Mean Corpuscular Volume [Pending], Mean Corpuscular Hemoglobin [Pending], Mean Corpuscular Hemoglobin Concent [Pending], Red Cell Distribution Width [Pending], Platelet Count [Pending], Mean Platelet Volume [ Pending], Neutrophils (%) (Auto) [Pending], Lymphocytes (%) (Auto) [Pending], Monocytes (%) (Auto) [Pending], Eosinophils (%) (Auto) [Pending], Basophils (%) (Auto) [Pending], Sodium Level 137, Potassium Level 3.0L, Chloride Level 103, Carbon Dioxide Level 22, Anion Gap 13, Blood Urea Nitrogen 122H, Creatinine 4.3H , Estimat Glomerular Filtration Rate 17.6, Glucose Level 150H, Calcium Level 7.6L Current Medications Medications (Trade) Dose Ordered Sig/[place] Route PRN Reason Start Time Stop Time Status Last Admin Dose Admin Acetaminophen (Tylenol) 650 mg Q4H PRN GT Mild Pain (Pain Scale 1-3) 12/31/19 07:45 01/30/20 07:44 Acetaminophen (Tylenol) 650 mg Q4H PRN GT Temp >100.5 12/31/19 07:45 01/30/20 07:44 Al Hydroxide/Mg Hydroxide (Mylanta) 30 ml QIDPRN PRN GT stomach upset 12/31/19 08:00 01/30/20 07:59 Artificial Tears (Akwa-Tears) 1 drop EVERY 12 HOURS BOTH EYES 01/07/20 21:00 01/30/20 10:59 01/13/20 06:03 Atorvastatin Calcium (Lipitor) 80 mg BEDTIME GT 12/31/19 21:00 03/30/20 20:59 01/12/20 20:28 Chlorhexidine Gluconate (Sheela-Hex 2%) 1 applic DAILY@1999 TOPIC 01/02/20 20:00 04/01/20 19:59 01/12/20 20:28 Chlorhexidine Gluconate (Sheela-Hex 2%) 1 applic DAILY@1999 TOPIC 01/13/20 20:00 01/13/20 22:00 Dextrose (Dextrose 50%) 25 ml Q30M PRN IV Hypoglycemia 12/31/19 08:45 01/30/20 08:37 01/10/20 23:24 Dextrose (Dextrose 50%) 50 ml Q30M PRN IV hypoglycemia 12/31/19 08:45 03/30/20 08:44 01/10/20 12:06 Erythromycin (Alexis-Ped) 50 mg Q6HR GT 01/12/20 12:00 01/19/20 11:59 01/13/20 06:03 Insulin Aspart (NovoLOG) No Dose Q6HR SUBQ 12/31/19 12:00 03/30/20 11:59 01/12/20 12:08 Insulin Detemir (Levemir) 25 units Q12HR SUBQ 12/31/19 10:00 03/30/20 09:59 01/12/20 08:44 Lidocaine HCl (Xylocaine 1% 30ml) 30 ml ONCE INJ 01/13/20 06:00 01/13/20 18:00 Metoclopramide HCl (Reglan) 10 mg Q6H IVP 01/09/20 18:00 02/08/20 17:59 01/13/20 06:04 Pantoprazole (Protonix) 40 mg Q12H IVP 01/02/20 21:00 02/01/20 20:59 01/12/20 20:32 Sodium Bicarbonate 50 ml/ Dextrose 1,050 ml @ 75 mls/hr Q14H IV 01/10/20 23:45 02/09/20 23:44 01/12/20 17:50 Sodium Hypochlorite (Dakin's Half Strength) 1 applic DAILY TOPIC 01/01/20 09:00 01/31/20 08:59 01/12/20 08:41 Vancomycin HCl (Firvanq) 125 mg FOUR TIMES A DAY GT 01/12/20 13:00 6/5/20 12:59 01/12/20 20:28 Zinc Sulfate (Zinc Sulfate) 220 mg DAILY GT 12/31/19 09:00 03/30/20 08:59 01/12/20 08:41 Assessment/Plan Assessment/Plan IMPRESSION chronic respiratory failure Acute on chronic renal failure elevated K anemia GIB leukocytosis possible sepsis oral bleeding PLAN monitor HH- likely need repeat transfusion monitor wbc IV hydration iv antibiotics ID , GI and renal likely needs HD vent as is monitor vitals hold feeds snf meds full code prognosis very poor for recovery difficult to optimize impression, plan, and exam edited and reviewed in detail care discussed with Lorenzo Chase MD Jan 13, 2020 08:32
[2020-01-13] MEDS: SODIUM BICARBONATE IV SCH ×2 (08:43→22:25)
[2020-01-13] MEDS: DEXTROSE IV SCH (08:43)
[2020-01-13] MEDS: Levemir Flexpen SUBQ SCH ×2 (08:44→22:28)
[2020-01-13] MEDS: Pantoprazole Inj IVP SCH ×3 (08:44→22:33)
[2020-01-13] MEDS: Zinc Sulfate 220mg GT SCH (08:44)
[2020-01-13] MEDS: Vancomycin oral 125mg/2.5ml GT SCH ×4 (08:44→22:32)
[2020-01-13] MEDS: Dakin's 0.25% (Half Strength) 16oz TOPIC SCH (08:45)
[2020-01-13] MEDS ORDERED: Tubing Blood Filter IV ONE (09:29)
[2020-01-13] MEDS ORDERED: NS 275ml ONE (09:29)
[2020-01-13] MEDS ORDERED: Tubing IV Secondary IV ONE (09:29)
--- NOTE | 2020-01-13 09:53 | General Progress Note ---
Assessment/Plan Assessment/Plan: sepsis anemia GIB thrombocytopenia hyponatremia ARF DM dysphagia with GT s/p EGD/PEG patient had some elevated residuals yesterday and TF was on hold minimum blood seen in GT aspirate GTF add low dose erythromycin to reglan ppi will fu Subjective ROS Limited/Unobtainable: No Allergies: Coded Allergies: No Known Allergies (Unverified , 10/07/19) Objective Last 24 Hour Vital Signs Date Time Temp Pulse Resp B/P (MAP) Pulse Ox O2 Delivery O2 Flow Rate FiO2 01/13/20 08:00 97.1 68 18 127/71 (89) 99 01/13/20 08:00 Mechanical Ventilator 01/13/20 08:00 40 01/13/20 07:07 71 24 40 01/13/20 05:08 72 25 40 01/13/20 04:00 40 01/13/20 04:00 Mechanical Ventilator 01/13/20 04:00 97.9 73 29 127/72 (90) 97 01/13/20 04:00 71 01/13/20 03:26 71 27 40 01/13/20 01:03 69 24 40 01/13/20 00:00 40 01/13/20 00:00 Mechanical Ventilator 01/13/20 00:00 69 01/12/20 23:50 97.1 70 24 113/62 (79) 98 01/12/20 23:18 69 24 40 01/12/20 21:32 70 27 40 01/12/20 20:00 Mechanical Ventilator 01/12/20 20:00 40 01/12/20 20:00 96.8 69 30 133/79 (97) 95 01/12/20 20:00 68 01/12/20 19:36 63 26 40 01/12/20 16:59 68 28 40 01/12/20 16:00 40 01/12/20 16:00 63 01/12/20 16:00 96.1 62 21 109/73 (85) 96 01/12/20 16:00 Mechanical Ventilator 01/12/20 15:05 63 24 40 01/12/20 13:10 65 27 40 01/12/20 12:00 75 01/12/20 12:00 96.1 71 24 129/78 (95) 94 01/12/20 12:00 40 01/12/20 12:00 40 01/12/20 12:00 Mechanical Ventilator 01/12/20 10:49 67 25 40 Intake and Output 01/12/20 01/13/20 18:59 06:59 Intake Total 645 ml 1295 ml Output Total 650 ml Balance -5 ml 1295 ml Intake Free Water 20 ml 100 ml IV Total 525 ml 975 ml Tube Feeding 100 ml 220 ml Output Urine Total 650 ml # Bowel Movements 1 Laboratory Tests 01/13/20 03:45: White Blood Count [Pending], Red Blood Count [Pending], Hemoglobin [Pending], Hematocrit [Pending], Mean Corpuscular Volume [Pending], Mean Corpuscular Hemoglobin [Pending], Mean Corpuscular Hemoglobin Concent [Pending], Red Cell Distribution Width [Pending], Platelet Count [Pending], Mean Platelet Volume [ Pending], Neutrophils (%) (Auto) [Pending], Lymphocytes (%) (Auto) [Pending], Monocytes (%) (Auto) [Pending], Eosinophils (%) (Auto) [Pending], Basophils (%) (Auto) [Pending], Sodium Level 137, Potassium Level 3.0L, Chloride Level 103, Carbon Dioxide Level 22, Anion Gap 13, Blood Urea Nitrogen 122H, Creatinine 4.3H , Estimat Glomerular Filtration Rate 17.6, Glucose Level 150H, Calcium Level 7.6L Height (Feet): 5 Height (Inches): 5.00 Weight (Pounds): 170 General Appearance: lethargic EENT: normal ENT inspection Neck: normal alignment Cardiovascular: normal rate Respiratory/Chest: decreased breath sounds Abdomen: normal bowel sounds, non tender, soft Extremities: non-tender Toni Mckenzie MD Jan 13, 2020 09:53
[2020-01-13 10:59] LABS: HEMATOCRIT 18.3 % (42.0-52.0); HEMOGLOBIN 6.6 G/DL (14.2-18.0); MEAN CORPUSCULAR VOLUME 84 FL (80-99); PLATELET COUNT 38 K/UL (150-450); RED CELL DISTRIBUTION WIDTH 13.4 % (11.6-14.8); WHITE BLOOD COUNT 6.8 K/UL (4.8-10.8)
--- NOTE | 2020-01-13 10:59 | Infectious Diseases Prog Note ---
"Assessment/Plan Assessment/Plan antibiotics : po vancomycin 5.29.20 - A 1. e.coli | klebsiella | pseudomonas pneumonia s/p rx 2. renal failure 3. respiratory failure 4. intracranial hemorrhage 5. paraplegia 6. leucocytosis improving 7. COVID 19 test negative x 2 8. gangrene of feet bilaterally P 1. continue po vancomycin 10 more days 2. will follow up cultures 3. dc right groin catheter Subjective ROS Limited/Unobtainable: Yes Allergies: Coded Allergies: No Known Allergies (Unverified , 10/07/19) Objective Vital Signs Last 24 Hour Vital Signs Date Time Temp Pulse Resp B/P (MAP) Pulse Ox O2 Delivery O2 Flow Rate FiO2 01/13/20 08:00 97.1 68 18 127/71 (89) 99 01/13/20 08:00 Mechanical Ventilator 01/13/20 08:00 67 01/13/20 08:00 40 01/13/20 07:07 71 24 40 01/13/20 05:08 72 25 40 01/13/20 04:00 40 01/13/20 04:00 Mechanical Ventilator 01/13/20 04:00 97.9 73 29 127/72 (90) 97 01/13/20 04:00 71 01/13/20 03:26 71 27 40 01/13/20 01:03 69 24 40 01/13/20 00:00 40 01/13/20 00:00 Mechanical Ventilator 01/13/20 00:00 69 01/12/20 23:50 97.1 70 24 113/62 (79) 98 01/12/20 23:18 69 24 40 01/12/20 21:32 70 27 40 01/12/20 20:00 Mechanical Ventilator 01/12/20 20:00 40 01/12/20 20:00 96.8 69 30 133/79 (97) 95 01/12/20 20:00 68 01/12/20 19:36 63 26 40 01/12/20 16:59 68 28 40 01/12/20 16:00 40 01/12/20 16:00 63 01/12/20 16:00 96.1 62 21 109/73 (85) 96 01/12/20 16:00 Mechanical Ventilator 01/12/20 15:05 63 24 40 01/12/20 13:10 65 27 40 01/12/20 12:00 75 01/12/20 12:00 96.1 71 24 129/78 (95) 94 01/12/20 12:00 40 01/12/20 12:00 40 01/12/20 12:00 Mechanical Ventilator Height (Feet): 5 Height (Inches): 5.00 Weight (Pounds): 170 HEENT: status post trach Respiratory/Chest: lungs clear Cardiovascular: normal rate, regular rhythm, no gallop/murmur Abdomen: soft, non tender, other - GT Extremities: other - + edema, necrotic feet bilaterally, right groin catheter Microbiology Date/Time Source Procedure Growth Status 01/10/20 11:50 Blood Blood Culture - Preliminary NO GROWTH AFTER 48 HOURS Resulted Laboratory Tests Test 01/13/20 03:45 01/13/20 10:44 Sodium Level 137 MMOL/L (136-145) Potassium Level 3.0 MMOL/L (3.5-5.1) L Chloride Level 103 MMOL/L (98-107) Carbon Dioxide Level 22 MMOL/L (21-32) Anion Gap 13 mmol/L (5-15) Blood Urea Nitrogen 122 mg/dL (7-18) H Creatinine 4.3 MG/DL (0.55-1.30) H Estimat Glomerular Filtration Rate 17.6 mL/min (>60) Glucose Level 150 MG/DL (74-106) H Calcium Level 7.6 MG/DL (8.5-10.1) L White Blood Count Pending Red Blood Count Pending Hemoglobin Pending Hematocrit Pending Mean Corpuscular Volume Pending Mean Corpuscular Hemoglobin Pending Mean Corpuscular Hemoglobin Concent Pending Red Cell Distribution Width Pending Platelet Count Pending Mean Platelet Volume Pending Neutrophils (%) (Auto) Pending Lymphocytes (%) (Auto) Pending Monocytes (%) (Auto) Pending Eosinophils (%) (Auto) Pending Basophils (%) (Auto) Pending Current Medications Medications (Trade) Dose Ordered Sig/[place] Route PRN Reason Start Time Stop Time Status Last Admin Dose Admin Acetaminophen (Tylenol) 650 mg Q4H PRN GT Mild Pain (Pain Scale 1-3) 12/31/19 07:45 01/30/20 07:44 Acetaminophen (Tylenol) 650 mg Q4H PRN GT Temp >100.5 12/31/19 07:45 01/30/20 07:44 Al Hydroxide/Mg Hydroxide (Mylanta) 30 ml QIDPRN PRN GT stomach upset 12/31/19 08:00 01/30/20 07:59 Artificial Tears (Akwa-Tears) 1 drop EVERY 12 HOURS BOTH EYES 01/07/20 21:00 01/30/20 10:59 01/13/20 06:03 Atorvastatin Calcium (Lipitor) 80 mg BEDTIME GT 12/31/19 21:00 03/30/20 20:59 01/12/20 20:28 Chlorhexidine Gluconate (Sheela-Hex 2%) 1 applic DAILY@1999 TOPIC 01/02/20 20:00 04/01/20 19:59 01/12/20 20:28 Chlorhexidine Gluconate (Sheela-Hex 2%) 1 applic DAILY@1999 TOPIC 01/13/20 20:00 01/13/20 22:00 Dextrose (Dextrose 50%) 25 ml Q30M PRN IV Hypoglycemia 12/31/19 08:45 01/30/20 08:37 01/10/20 23:24 Dextrose (Dextrose 50%) 50 ml Q30M PRN IV hypoglycemia 12/31/19 08:45 03/30/20 08:44 01/10/20 12:06 Erythromycin (Alexis-Ped) 50 mg Q6HR GT 01/12/20 12:00 01/19/20 11:59 01/13/20 06:03 Insulin Aspart (NovoLOG) No Dose Q6HR SUBQ 12/31/19 12:00 03/30/20 11:59 01/12/20 12:08 Insulin Detemir (Levemir) 25 units Q12HR SUBQ 12/31/19 10:00 03/30/20 09:59 01/12/20 08:44 Lidocaine HCl (Xylocaine 1% 30ml) 30 ml ONCE INJ 01/13/20 06:00 01/13/20 18:00 Metoclopramide HCl (Reglan) 10 mg Q6H IVP 01/09/20 18:00 02/08/20 17:59 01/13/20 06:04 Pantoprazole (Protonix) 40 mg Q12H IVP 01/02/20 21:00 02/01/20 20:59 01/13/20 10:22 Potassium Chloride (K-Dur) 40 meq ONCE GT 01/13/20 09:45 01/13/20 11:44 01/13/20 10:22 Sodium Bicarbonate 50 ml/ Dextrose 1,050 ml @ 75 mls/hr Q14H IV 01/10/20 23:45 02/09/20 23:44 01/13/20 08:43 Sodium Hypochlorite (Dakin's Half Strength) 1 applic DAILY TOPIC 01/01/20 09:00 01/31/20 08:59 01/13/20 08:45 Vancomycin HCl (Firvanq) 125 mg FOUR TIMES A DAY GT 01/12/20 13:00 01/17/20 12:59 01/13/20 08:44 Zinc Sulfate (Zinc Sulfate) 220 mg DAILY GT 12/31/19 09:00 03/30/20 08:59 01/13/20 08:44 Tony Apple MD Jan 13, 2020 10:59"
[2020-01-13 12:00] VITALS: BP 133/67
--- NOTE | 2020-01-13 12:39 | Surgery Progress Note ---
Surgery Progress Note Subjective Procedure Performed right femoral central venous catheter insertion Additional Comments leukocytosis resolved anemia plt 38 pending picc Objective Last 24 Hour Vital Signs Date Time Temp Pulse Resp B/P (MAP) Pulse Ox O2 Delivery O2 Flow Rate FiO2 01/13/20 12:00 40 01/13/20 12:00 Mechanical Ventilator 01/13/20 11:10 72 26 40 01/13/20 09:22 72 26 40 01/13/20 08:00 97.1 68 18 127/71 (89) 99 01/13/20 08:00 Mechanical Ventilator 01/13/20 08:00 67 01/13/20 08:00 40 01/13/20 07:07 71 24 40 01/13/20 05:08 72 25 40 01/13/20 04:00 40 01/13/20 04:00 Mechanical Ventilator 01/13/20 04:00 97.9 73 29 127/72 (90) 97 01/13/20 04:00 71 01/13/20 03:26 71 27 40 01/13/20 01:03 69 24 40 01/13/20 00:00 40 01/13/20 00:00 Mechanical Ventilator 01/13/20 00:00 69 01/12/20 23:50 97.1 70 24 113/62 (79) 98 01/12/20 23:18 69 24 40 01/12/20 21:32 70 27 40 01/12/20 20:00 Mechanical Ventilator 01/12/20 20:00 40 01/12/20 20:00 96.8 69 30 133/79 (97) 95 01/12/20 20:00 68 01/12/20 19:36 63 26 40 01/12/20 16:59 68 28 40 01/12/20 16:00 40 01/12/20 16:00 63 01/12/20 16:00 96.1 62 21 109/73 (85) 96 01/12/20 16:00 Mechanical Ventilator 01/12/20 15:05 63 24 40 01/12/20 13:10 65 27 40 I&O Intake and Output 01/12/20 01/13/20 19:00 07:00 Intake Total 735 ml 1305 ml Output Total 650 ml 550 ml Balance 85 ml 755 ml Intake Free Water 20 ml 100 ml IV Total 600 ml 975 ml Tube Feeding 115 ml 230 ml Output Urine Total 650 ml 550 ml # Voids 1 # Bowel Movements 1 Dressing: other Wound: other Drains: other Cardiovascular: RSR Respiratory: decreased breath sounds Abdomen: soft, non-tender, present bowel sounds Extremities: no tenderness, no cyanosis Laboratory Tests Test 01/13/20 03:45 01/13/20 10:44 Sodium Level 137 MMOL/L (136-145) Potassium Level 3.0 MMOL/L (3.5-5.1) L Chloride Level 103 MMOL/L (98-107) Carbon Dioxide Level 22 MMOL/L (21-32) Anion Gap 13 mmol/L (5-15) Blood Urea Nitrogen 122 mg/dL (7-18) H Creatinine 4.3 MG/DL (0.55-1.30) H Estimat Glomerular Filtration Rate 17.6 mL/min (>60) Glucose Level 150 MG/DL (74-106) H Calcium Level 7.6 MG/DL (8.5-10.1) L White Blood Count 6.8 K/UL (4.8-10.8) # Red Blood Count 2.20 M/UL (4.70-6.10) L Hemoglobin 6.6 G/DL (14.2-18.0) *L Hematocrit 18.3 % (42.0-52.0) L Mean Corpuscular Volume 84 FL (80-99) Mean Corpuscular Hemoglobin 29.9 PG (27.0-31.0) Mean Corpuscular Hemoglobin Concent 35.8 G/DL (32.0-36.0) Red Cell Distribution Width 13.4 % (11.6-14.8) Platelet Count 38 K/UL (150-450) L Mean Platelet Volume 15.6 FL (6.5-10.1) H Neutrophils (%) (Auto) % (45.0-75.0) Lymphocytes (%) (Auto) % (20.0-45.0) Monocytes (%) (Auto) % (1.0-10.0) Eosinophils (%) (Auto) % (0.0-3.0) Basophils (%) (Auto) % (0.0-2.0) Differential Total Cells Counted 100 Neutrophils % (Manual) 77 % (45-75) H Lymphocytes % (Manual) 10 % (20-45) L Monocytes % (Manual) 7 % (1-10) Eosinophils % (Manual) 6 % (0-3) H Basophils % (Manual) 0 % (0-2) Band Neutrophils 0 % (0-8) Platelet Estimate Decreased L Platelet Morphology Normal Hypochromasia 1+ Plan Problems: (1) Hyponatremia (2) ARF (acute renal failure) (3) Hyperkalemia (4) Pressure sore on sacrum Assessment & Plan: Pt presented on admission with Sacral Pressure injury and Necrosis Both Both R lower ext, R foot and L foot. Generalized edema noted. Both upper ext noted to have multiple serous blisters ,some of which are weeping serous exudate. Full thickness Sacral Pressure Injury with undermined Borders. Base of wound is 75% loose necrotic tissue,25% bree. Bone exposure at base of wound. Area of necrosis noted at distal aspect of wound in space between wound and anus.Edges are macerated. Wound is malodorous.(L)9.5cm x (W)9.2cm x (D)2.9cm,undermining clockwise 10-3 by 3.8cm @12 o'clock. Scattered areas of hyperpigmentation noted to R and L clefts of buttocks. Unable to determine exudate as pt is continuously oozing large amt of semi soft black stool and leaking into wound because of close proximity to his rectum. At upper, R gluteal cheek is additional Pressure Injury with small amt Biofilm at base of wound. Edges are pink and adherent to base of wound. No exudate noted.(L)3cm x (W)2.6cm. Medially to distal Tibia,and extending to R foot is necrotic and malodorous.Wound is partially opened at posterior R tibia but is dry . L foot is necrotic and malodorous. No exudate noted. Tx.Plan: Cleanse Sacral wound with Dakin's 0.25% archana.. Loosely Pack wound with Dakin's moistened Kerlix.Apply Moisture Barrier Paste periwound.Cover with Optifoam drsg.Change Daily and PRN. Cleanse R lower ext and R foot with Dakin's 0.25% Archana. Cover wounds with ABD Pads.Wrap with Kerlix Daily and prn. Cleanse L foot Wounds with Dakin's 0.25% Archana. Cover wounds with ABD Pads and wrap with Kerlix Daily and prn. (5) Upper GI bleed Assessment & Plan: Patient with sepsis, abnormal labs, GI bleed, pending COVID eval. Labs noted. Exam reviewed. Chest x-ray noted as below. Discussed with GI. Plan for endoscopy once COVID status evaluated. Trend hemoglobin for now transfuse PRN. G-tube is functional and okay for medications and will plan tube feeds accordingly. No acute surgical intervention as patient is actively bleeding. Proton pump inhibitor recommended and Rx as written. Will follow with recommendations thank you for let me participate in patient's care plt low anemia prognosis guarded no active GI bleeding noted There is a tracheostomy in place. Vascularity is normal. Hazy densities in the lung bases may be layering effusions. Cardiac and mediastinal silhouette are within normal limits. The bony thorax appear unremarkable. IMPRESSION: Bibasilar hazy densities perhaps layering effusions. right fem line not functional noted manipulation as suture was dislodged. line replaced 1. Two or three gastric AVMs. 2. Ulcer with a small visible vessel, status post gold probe bipolar cauterization. DAILY ESTIMATED NEEDS: Needs based on Critical Care, Wounds, TR / 61kg 25-30 kcals/kg 4315-9976 total kcals 0.8-1.25 (increase w/ renal improvement) g protein/kg 49-76 g total protein 25-30 mL/kg 0422-2018 total fluid mLs NUTRITION DIAGNOSIS: * Swallowing difficulty R/T respiratory status, dysphagia as evidenced by trach/vent dep, PEG dep. * Increased kcal/prot intake needs R/T wound healing as evidenced by admitted w/ multiple wounds including full thickness wound @ sacrum, pressure Injury with small amt Biofilm at base of wound @ upper R gluteal cheek, necrotic wound @ medial to distal Tibia,and extending to R foot and L foot * Altered nutrition related lab R/T TR as evidenced by elev BUN (215-> 134), elev creat (5.2->4.3), low Na (124 -> wnl), elev K (6.7 -> wnl) CURRENT TF:TF HELD ENTERAL NUTRITION RECOMMENDATIONS: Nepro @ 38ml/hr x 24 hrs to provide 912ml, 1642kcal, 74g prot, 663ml free water * Once medically appropriate to feed, initiate TF -> rec Nepro at this time given TR (Creat 5.2 -> 4.3) w/ elev K upon adm * Initiate Nepro @ 18ml/hr x 6hrs, advance 10ml q 4-6 hrs as tolerated to goal rate * HOB over 30 degrees/ water flush per MD Monitor renal fxn closely, need to continue renal TF formula ADDITIONAL RECOMMENDATIONS: * Per SNF: HT=62" WT= 135lbs (12/25/19) * Monitor renal fxn and lytes (slowly improving renal fxn) * Monitor ability to resume TF- TF holding cont to be needed, consider initiating parenteral nutrition * Wound healing: add Ajay BID w/ TF order * Monitor for hypoglycemia: rec to hold ALL insulin while pt is NPO Javid Singh Jan 13, 2020 12:39
[2020-01-13 16:00] VITALS: BP 122/68
[2020-01-13 20:00] VITALS: BP 139/74
[2020-01-13] MEDS ORDERED: Dyna-Hex 2% Top Sol 2oz TOPIC SCH (20:00)
--- NOTE | 2020-01-13 20:31 | Hematology/Onc Progress Note ---
Assessment/Plan Assessment/Plan Assessment and recs # Thrombocytopenia - potential causes multifactorial, evaluate liver and viral etiologies to begin, also could be related to underlying medications patient has received. May be due to DIC in this case, or consumption --> Hep panel and HIV negative --> US abd to evaluate for cirrhosis and hsm --> neg for cirrhosis and hsm --> Peripheral smear ordered to evaluate for blasts /schistocytes --> abx and other meds have been reviewed --> ok for ppx if plt >50k w/ either heparin or lovenox --> Transfuse if Plt < 20k and fever, or if Plt < 10k without fever --> plt trend 41-->32-->21k-->20 -->61k-->45-->62-->51->38 --> plt transfusion 01/04 --> for sepsis is on abx # Anemia due to Upper GI bleed, hematuria --> no evidence of hemolysis is noted --> smear noted --> anemia panel reviewed, ferritin high --> no iron or epo needed --> po iron ok --> for hematuria as per urology --> Pending endoscopy when clear from covid19 --> hgb trend: 9.1 ->8.3->6.9-->8.1-->8.3-->7.6 -->6.6 --> prbc: 2 units 01/02, 01/12 # Leukocytosis due to e/coli/kleb pna --> on connor/wilma--> vanc --> wbc trend 23-->32-->17.1-->13.9 # Hyperkalemia --> kayxelate as needed --> k trend # ARF (acute renal failure) --> per renal # Hyponatremia # Gram negative pneumonia # Ventilator dependent respiratory failure # intracranial hemorrhage # paraplegia # Dysphagia with gtube The timing of this note does not necessarily reflect the time of the patient was seen. Greatly appreciate consultation. Subjective Allergies: Coded Allergies: No Known Allergies (Unverified , 10/07/19) All Systems: reviewed and negative except above Subjective 01/03obtunded, s/p rbc x2, hgb improved to 9.1, us abd reviewed, hematuria+ 01/04 plt are better, got 1 unit pf platets today as well, plt now 61k, less gi bleed overnight, some black tarry stool noted 01/05 nv, labs noted, hgb 8.5, no hemolysis noted, no bleeding, plt 83, egd tomorrow 01/06 egd for this am, results are pending, labs noted 01/09 no major changes, labs noted, no bleeding wbc higher, on abx 01/10 sdu, wbc improving, inr 1.4, vent, h/h stable, no distress 01/11 hgb 7.6, no tx required, repeat cbc for tomorrow, on vent 01/12 remains on vent, hgb 6.6, getting 2 iunits prbc today, will need picc Objective Objective Current Medications Medications (Trade) Dose Ordered Sig/[place] Route PRN Reason Start Time Stop Time Status Last Admin Dose Admin Acetaminophen (Tylenol) 650 mg Q4H PRN GT Mild Pain (Pain Scale 1-3) 12/31/19 07:45 01/30/20 07:44 Acetaminophen (Tylenol) 650 mg Q4H PRN GT Temp >100.5 12/31/19 07:45 01/30/20 07:44 Al Hydroxide/Mg Hydroxide (Mylanta) 30 ml QIDPRN PRN GT stomach upset 12/31/19 08:00 01/30/20 07:59 Artificial Tears (Akwa-Tears) 1 drop EVERY 12 HOURS BOTH EYES 01/07/20 21:00 01/30/20 10:59 01/13/20 06:03 Atorvastatin Calcium (Lipitor) 80 mg BEDTIME GT 12/31/19 21:00 03/30/20 20:59 01/12/20 20:28 Chlorhexidine Gluconate (Sheela-Hex 2%) 1 applic DAILY@1999 TOPIC 01/13/20 20:00 01/13/20 22:00 Dextrose (Dextrose 50%) 25 ml Q30M PRN IV Hypoglycemia 12/31/19 08:45 01/30/20 08:37 01/10/20 23:24 Dextrose (Dextrose 50%) 50 ml Q30M PRN IV hypoglycemia 12/31/19 08:45 03/30/20 08:44 01/10/20 12:06 Erythromycin (Alexis-Ped) 50 mg Q6HR GT 01/12/20 12:00 01/19/20 11:59 01/13/20 17:06 Insulin Aspart (NovoLOG) No Dose Q6HR SUBQ 12/31/19 12:00 03/30/20 11:59 01/13/20 12:41 Insulin Detemir (Levemir) 25 units Q12HR SUBQ 12/31/19 10:00 03/30/20 09:59 01/12/20 08:44 Metoclopramide HCl (Reglan) 10 mg Q6H IVP 01/09/20 18:00 02/08/20 17:59 01/13/20 12:38 Pantoprazole (Protonix) 40 mg Q12H IVP 01/02/20 21:00 02/01/20 20:59 01/13/20 10:22 Sodium Bicarbonate 50 ml/ Dextrose 1,050 ml @ 75 mls/hr Q14H IV 01/10/20 23:45 02/09/20 23:44 01/13/20 08:43 Sodium Hypochlorite (Dakin's Half Strength) 1 applic DAILY TOPIC 01/01/20 09:00 01/31/20 08:59 01/13/20 08:45 Vancomycin HCl (Firvanq) 125 mg FOUR TIMES A DAY GT 01/12/20 13:00 01/17/20 12:59 01/13/20 17:06 Zinc Sulfate (Zinc Sulfate) 220 mg DAILY GT 12/31/19 09:00 03/30/20 08:59 01/13/20 08:44 Last 24 Hour Vital Signs Date Time Temp Pulse Resp B/P (MAP) Pulse Ox O2 Delivery O2 Flow Rate FiO2 01/13/20 19:18 70 27 40 01/13/20 17:28 71 26 40 01/13/20 16:00 Mechanical Ventilator 01/13/20 16:00 40 01/13/20 16:00 97.1 71 18 122/68 (86) 99 01/13/20 16:00 70 01/13/20 14:33 72 25 40 01/13/20 13:13 71 24 40 01/13/20 12:00 40 01/13/20 12:00 70 01/13/20 12:00 Mechanical Ventilator 01/13/20 12:00 96.8 71 18 133/67 (89) 100 01/13/20 11:10 72 26 40 01/13/20 09:22 72 26 40 01/13/20 08:00 97.1 68 18 127/71 (89) 99 01/13/20 08:00 Mechanical Ventilator 01/13/20 08:00 67 01/13/20 08:00 40 01/13/20 07:07 71 24 40 01/13/20 05:08 72 25 40 01/13/20 04:00 40 01/13/20 04:00 Mechanical Ventilator 01/13/20 04:00 97.9 73 29 127/72 (90) 97 01/13/20 04:00 71 01/13/20 03:26 71 27 40 01/13/20 01:03 69 24 40 01/13/20 00:00 40 01/13/20 00:00 Mechanical Ventilator 01/13/20 00:00 69 01/12/20 23:50 97.1 70 24 113/62 (79) 98 01/12/20 23:18 69 24 40 01/12/20 21:32 70 27 40 01/12/20 20:00 Mechanical Ventilator 01/12/20 20:00 40 01/12/20 20:00 96.8 69 30 133/79 (97) 95 01/12/20 20:00 68 01/12/20 19:36 63 26 40 01/12/20 16:59 68 28 40 01/12/20 16:00 40 01/12/20 16:00 63 01/12/20 16:00 96.1 62 21 109/73 (85) 96 01/12/20 16:00 Mechanical Ventilator 01/12/20 15:05 63 24 40 01/12/20 13:10 65 27 40 01/12/20 12:00 75 01/12/20 12:00 96.1 71 24 129/78 (95) 94 01/12/20 12:00 40 01/12/20 12:00 40 01/12/20 12:00 Mechanical Ventilator 01/12/20 10:49 67 25 40 01/12/20 09:42 65 25 40 01/12/20 09:00 Mechanical Ventilator 01/12/20 08:00 63 01/12/20 08:00 40 01/12/20 08:00 95.7 64 25 131/77 (95) 99 5/31/20 06:54 63 25 40 01/12/20 04:49 65 24 40 01/12/20 04:00 96.3 67 24 122/74 (90) 100 01/12/20 04:00 40 01/12/20 04:00 67 01/12/20 04:00 Mechanical Ventilator 01/12/20 03:30 64 24 40 01/12/20 01:30 62 25 40 01/12/20 00:00 96.4 65 24 106/54 (71) 100 01/12/20 00:00 Mechanical Ventilator 01/12/20 00:00 65 01/11/20 23:30 64 24 40 01/11/20 21:30 65 24 40 Intake and Output 01/12/20 01/13/20 19:00 07:00 Intake Total 735 ml 1305 ml Output Total 650 ml 550 ml Balance 85 ml 755 ml Intake Free Water 20 ml 100 ml IV Total 600 ml 975 ml Tube Feeding 115 ml 230 ml Output Urine Total 650 ml 550 ml # Voids 1 # Bowel Movements 1 Labs Test 01/11/20 06:08 01/12/20 04:00 01/13/20 03:45 01/13/20 10:44 White Blood Count 17.1 K/UL (4.8-10.8) 13.9 K/UL (4.8-10.8) 6.8 K/UL (4.8-10.8) Red Blood Count 2.72 M/UL (4.70-6.10) 2.50 M/UL (4.70-6.10) 2.20 M/UL (4.70-6.10) Hemoglobin 8.3 G/DL (14.2-18.0) 7.6 G/DL (14.2-18.0) 6.6 G/DL (14.2-18.0) Hematocrit 22.7 % (42.0-52.0) 20.6 % (42.0-52.0) 18.3 % (42.0-52.0) Mean Corpuscular Volume 83 FL (80-99) 82 FL (80-99) 84 FL (80-99) Mean Corpuscular Hemoglobin 30.5 PG (27.0-31.0) 30.4 PG (27.0-31.0) 29.9 PG (27.0-31.0) Mean Corpuscular Hemoglobin Concent 36.6 G/DL (32.0-36.0) 36.9 G/DL (32.0-36.0) 35.8 G/DL (32.0-36.0) Red Cell Distribution Width 13.2 % (11.6-14.8) 12.8 % (11.6-14.8) 13.4 % (11.6-14.8) Platelet Count 62 K/UL (150-450) 51 K/UL (150-450) 38 K/UL (150-450) Mean Platelet Volume 16.5 FL (6.5-10.1) 13.8 FL (6.5-10.1) 15.6 FL (6.5-10.1) Neutrophils (%) (Auto) % (45.0-75.0) % (45.0-75.0) % (45.0-75.0) Lymphocytes (%) (Auto) % (20.0-45.0) % (20.0-45.0) % (20.0-45.0) Monocytes (%) (Auto) % (1.0-10.0) % (1.0-10.0) % (1.0-10.0) Eosinophils (%) (Auto) % (0.0-3.0) % (0.0-3.0) % (0.0-3.0) Basophils (%) (Auto) % (0.0-2.0) % (0.0-2.0) % (0.0-2.0) Differential Total Cells Counted 100 100 100 Neutrophils % (Manual) 87 % (45-75) 84 % (45-75) 77 % (45-75) Lymphocytes % (Manual) 4 % (20-45) 7 % (20-45) 10 % (20-45) Monocytes % (Manual) 7 % (1-10) 2 % (1-10) 7 % (1-10) Eosinophils % (Manual) 2 % (0-3) 7 % (0-3) 6 % (0-3) Basophils % (Manual) 0 % (0-2) 0 % (0-2) 0 % (0-2) Band Neutrophils 0 % (0-8) 0 % (0-8) 0 % (0-8) Platelet Estimate Decreased Decreased Decreased Platelet Morphology Normal Normal Anisocytosis 1+ 1+ Prothrombin Time 15.1 SEC (9.30-11.50) Prothromb Time International Ratio 1.4 (0.9-1.1) Sodium Level 136 MMOL/L (136-145) 137 MMOL/L (136-145) Potassium Level 3.8 MMOL/L (3.5-5.1) 3.0 MMOL/L (3.5-5.1) Chloride Level 103 MMOL/L (98-107) 103 MMOL/L (98-107) Carbon Dioxide Level 19 MMOL/L (21-32) 22 MMOL/L (21-32) Anion Gap 14 mmol/L (5-15) 13 mmol/L (5-15) Blood Urea Nitrogen 134 mg/dL (7-18) 122 mg/dL (7-18) Creatinine 4.3 MG/DL (0.55-1.30) 4.3 MG/DL (0.55-1.30) Estimat Glomerular Filtration Rate 17.6 mL/min (>60) 17.6 mL/min (>60) Glucose Level 113 MG/DL (74-106) 150 MG/DL (74-106) Calcium Level 8.3 MG/DL (8.5-10.1) 7.6 MG/DL (8.5-10.1) Giant Platelets Occasional Hypochromasia 1+ Height (Feet): 5 Height (Inches): 5.00 Weight (Pounds): 170 Objective Physical Exam: Vitals: reviewed General: NAD ++obtunded HEENT: nc, at, mouth guard+ Neck: supple++trach Chest: clear breath sounds bilaterally Cardiovascular: RRR, no s3, s4 Abdomen: soft, nontender, nd ++gtube Extremities: no cce, normal range of motion, ++ Spasticity in the left upper extremity. Flaccid on the right. Neuro: nonfocal : skinny+ Wilmer Turner MD Jan 13, 2020 20:30
--- NOTE | 2020-01-13 21:17 | Nephrology Progress Note ---
Assessment/Plan Problem List: (1) Respiratory failure (2) ARF (acute renal failure) (3) Hyponatremia (4) Hyperkalemia (5) Upper GI bleed (6) Pressure sore on sacrum Plan continue iv fluids,BUN/creatinine 70/.91 11/2019, bicarb for acidosis , kcl BUN lower Subjective ROS Limited/Unobtainable: Yes Objective Objective Last 24 Hour Vital Signs Date Time Temp Pulse Resp B/P (MAP) Pulse Ox O2 Delivery O2 Flow Rate FiO2 01/13/20 19:18 70 27 40 01/13/20 17:28 71 26 40 01/13/20 16:00 Mechanical Ventilator 01/13/20 16:00 40 01/13/20 16:00 97.1 71 18 122/68 (86) 99 01/13/20 16:00 70 01/13/20 14:33 72 25 40 01/13/20 13:13 71 24 40 01/13/20 12:00 40 01/13/20 12:00 70 01/13/20 12:00 Mechanical Ventilator 01/13/20 12:00 96.8 71 18 133/67 (89) 100 01/13/20 11:10 72 26 40 01/13/20 09:22 72 26 40 01/13/20 08:00 97.1 68 18 127/71 (89) 99 01/13/20 08:00 Mechanical Ventilator 01/13/20 08:00 67 01/13/20 08:00 40 01/13/20 07:07 71 24 40 01/13/20 05:08 72 25 40 01/13/20 04:00 40 01/13/20 04:00 Mechanical Ventilator 01/13/20 04:00 97.9 73 29 127/72 (90) 97 01/13/20 04:00 71 01/13/20 03:26 71 27 40 01/13/20 01:03 69 24 40 01/13/20 00:00 40 01/13/20 00:00 Mechanical Ventilator 01/13/20 00:00 69 01/12/20 23:50 97.1 70 24 113/62 (79) 98 01/12/20 23:18 69 24 40 01/12/20 21:32 70 27 40 Intake and Output 01/12/20 01/13/20 19:00 07:00 Intake Total 735 ml 1305 ml Output Total 650 ml 550 ml Balance 85 ml 755 ml Intake Free Water 20 ml 100 ml IV Total 600 ml 975 ml Tube Feeding 115 ml 230 ml Output Urine Total 650 ml 550 ml # Voids 1 # Bowel Movements 1 Laboratory Tests 01/13/20 03:45: Sodium Level 137, Potassium Level 3.0L, Chloride Level 103, Carbon Dioxide Level 22, Anion Gap 13, Blood Urea Nitrogen 122H, Creatinine 4.3H, Estimat Glomerular Filtration Rate 17.6, Glucose Level 150H, Calcium Level 7.6L 01/13/20 10:44: White Blood Count 6.8#, Red Blood Count 2.20L, Hemoglobin 6.6*L, Hematocrit 18.3L, Mean Corpuscular Volume 84, Mean Corpuscular Hemoglobin 29.9, Mean Corpuscular Hemoglobin Concent 35.8, Red Cell Distribution Width 13.4, Platelet Count 38L, Mean Platelet Volume 15.6H, Neutrophils (%) (Auto) , Lymphocytes (%) (Auto) , Monocytes (%) (Auto) , Eosinophils (%) (Auto) , Basophils (%) (Auto) , Differential Total Cells Counted 100, Neutrophils % (Manual) 77H, Lymphocytes % (Manual) 10L, Monocytes % (Manual) 7, Eosinophils % (Manual) 6H, Basophils % ( Manual) 0, Band Neutrophils 0, Platelet Estimate DecreasedL, Platelet Morphology Normal, Hypochromasia 1+ Height (Feet): 5 Height (Inches): 5.00 Weight (Pounds): 170 General Appearance: other - on vent Cardiovascular: regular rhythm Respiratory/Chest: crackles/rales Abdomen: soft Extremities: trace edema, other - gangrene feet Neurologic: unresponsive Martin Yee MD Jan 13, 2020 21:17
[2020-01-13] MEDS: Atorvastatin 80mg tab GT SCH (22:19)
[2020-01-13] MEDS: DEXTROSE 10% IV SCH (22:25)
[2020-01-13] MEDS: POTASSIUM CHLORIDE IV SCH (22:25)
[2020-01-14] VITALS (7 sets, daily range): BP systolic 135–152; BP diastolic 70–89
[2020-01-14] MEDS: Metoclopramide 10mg/2ml Inj IVP SCH ×5 (00:12→23:28)
[2020-01-14] MEDS: Erythromycin Ethylsuccinate 200mg/5ml Susp GT SCH ×6 (00:12→23:26)
[2020-01-14 04:50] LABS: HEMATOCRIT 29.3 % (42.0-52.0); HEMOGLOBIN 10.5 G/DL (14.2-18.0); MEAN CORPUSCULAR VOLUME 81 FL (80-99); PLATELET COUNT 55 K/UL (150-450); RED BLOOD COUNT 3.62 M/UL (4.70-6.10); RED CELL DISTRIBUTION WIDTH 15.2 % (11.6-14.8)
[2020-01-14 05:08] LABS: INR 1.4 (0.9-1.1)
[2020-01-14 05:36] LABS: ALANINE AMINOTRANSFERASE 174 U/L (12-78); ALBUMIN 0.8 G/DL (3.4-5.0); ALBUMIN/GLOBULIN RATIO 0.2 (1.0-2.7); ALKALINE PHOSPHATASE 200 U/L (46-116); ANION GAP 14 mmol/L (5-15); ASPARTATE AMINO TRANSFERASE 254 U/L (15-37); BLOOD UREA NITROGEN 120 mg/dL (7-18); CALCIUM 8.1 MG/DL (8.5-10.1); CARBON DIOXIDE 21 MMOL/L (21-32); CHLORIDE 102 MMOL/L (98-107); CREATININE 4.3 MG/DL (0.55-1.30); POTASSIUM 3.4 MMOL/L (3.5-5.1); SODIUM 137 MMOL/L (136-145)
[2020-01-14] MEDS: Insulin NovoLOG Flexpen S/S (Mod) SUBQ SCH ×5 (05:40→23:26)
--- NOTE | 2020-01-14 08:25 | Pulmonology Progress Note ---
Subjective ROS Limited/Unobtainable: Yes Constitutional: Reports: other - hypothermia Gastrointestinal/Abdominal: Reports: diarrhea Allergies: Coded Allergies: No Known Allergies (Unverified , 10/07/19) All Systems: reviewed and negative except above Subjective care noted on vent HH dropped and transfused again renal function poor and not improved Objective Last 24 Hour Vital Signs Date Time Temp Pulse Resp B/P (MAP) Pulse Ox O2 Delivery O2 Flow Rate FiO2 01/14/20 07:26 67 24 40 01/14/20 05:20 76 24 40 01/14/20 04:01 70 25 40 01/14/20 04:00 96.9 70 30 137/70 (92) 100 01/14/20 04:00 68 01/14/20 04:00 40 01/14/20 04:00 Mechanical Ventilator 01/14/20 01:21 72 24 40 01/14/20 00:00 68 01/14/20 00:00 Mechanical Ventilator 01/14/20 00:00 96.6 67 25 135/75 (95) 100 01/14/20 00:00 40 01/13/20 22:54 66 24 40 01/13/20 21:05 70 24 40 01/13/20 20:00 97.0 70 23 139/74 (95) 100 01/13/20 20:00 Mechanical Ventilator 01/13/20 20:00 40 01/13/20 19:18 70 27 40 01/13/20 19:08 71 01/13/20 17:28 71 26 40 01/13/20 16:00 Mechanical Ventilator 01/13/20 16:00 40 01/13/20 16:00 97.1 71 18 122/68 (86) 99 01/13/20 16:00 70 01/13/20 14:33 72 25 40 01/13/20 13:13 71 24 40 01/13/20 12:00 40 01/13/20 12:00 70 01/13/20 12:00 Mechanical Ventilator 01/13/20 12:00 96.8 71 18 133/67 (89) 100 01/13/20 11:10 72 26 40 01/13/20 09:22 72 26 40 Intake and Output 01/13/20 01/14/20 19:00 07:00 Intake Total 575 ml 1244.75 ml Output Total 600 ml 625 ml Balance -25 ml 619.75 ml Intake Free Water 200 ml 200 ml IV Total 75 ml 718.75 ml Tube Feeding 300 ml 326 ml Output Urine Total 600 ml 625 ml # Voids 1 # Bowel Movements 1 2 Objective WDWN trach clear breath sounds bilaterally without rhonchi or wheeze [id number] without MRG NABS nontender no HSM no CCE poor LOC reviewed and edited Laboratory Tests 01/13/20 10:44: White Blood Count 6.8#, Red Blood Count 2.20L, Hemoglobin 6.6*L, Hematocrit 18.3L, Mean Corpuscular Volume 84, Mean Corpuscular Hemoglobin 29.9, Mean Corpuscular Hemoglobin Concent 35.8, Red Cell Distribution Width 13.4, Platelet Count 38L, Mean Platelet Volume 15.6H, Neutrophils (%) (Auto) , Lymphocytes (%) (Auto) , Monocytes (%) (Auto) , Eosinophils (%) (Auto) , Basophils (%) (Auto) , Differential Total Cells Counted 100, Neutrophils % (Manual) 77H, Lymphocytes % (Manual) 10L, Monocytes % (Manual) 7, Eosinophils % (Manual) 6H, Basophils % ( Manual) 0, Band Neutrophils 0, Platelet Estimate DecreasedL, Platelet Morphology Normal, Hypochromasia 1+ 01/14/20 03:15: White Blood Count 9.0, Red Blood Count 3.62L, Hemoglobin 10.5#L, Hematocrit 29.3 #L, Mean Corpuscular Volume 81, Mean Corpuscular Hemoglobin 29.0, Mean Corpuscular Hemoglobin Concent 35.8, Red Cell Distribution Width 15.2H, Platelet Count 55L, Mean Platelet Volume , Neutrophils (%) (Auto) , Lymphocytes (%) (Auto) , Monocytes (%) (Auto) , Eosinophils (%) (Auto) , Basophils (%) (Auto ) , Differential Total Cells Counted 100, Neutrophils % (Manual) 80H, Lymphocytes % (Manual) 4L, Monocytes % (Manual) 9, Eosinophils % (Manual) 7H, Basophils % (Manual) 0, Band Neutrophils 0, Platelet Estimate DecreasedL, Platelet Morphology Normal, Hypochromasia 1+, Anisocytosis 1+, Prothrombin Time 15.1H, Prothromb Time International Ratio 1.4H, Activated Partial Thromboplast Time 39H, Sodium Level 137, Potassium Level 3.4L, Chloride Level 102, Carbon Dioxide Level 21, Anion Gap 14, Blood Urea Nitrogen 120H, Creatinine 4.3H, Estimat Glomerular Filtration Rate 17.6, Glucose Level 131H, Calcium Level 8.1L , Total Bilirubin 1.0, Aspartate Amino Transf (AST/SGOT) 254H, Alanine Aminotransferase (ALT/SGPT) 174H, Alkaline Phosphatase 200H, Total Protein 5.6L , Albumin 0.8L, Globulin 4.8, Albumin/Globulin Ratio 0.2L Current Medications Medications (Trade) Dose Ordered Sig/[place] Route PRN Reason Start Time Stop Time Status Last Admin Dose Admin Acetaminophen (Tylenol) 650 mg Q4H PRN GT Mild Pain (Pain Scale 1-3) 12/31/19 07:45 01/30/20 07:44 Acetaminophen (Tylenol) 650 mg Q4H PRN GT Temp >100.5 12/31/19 07:45 01/30/20 07:44 Al Hydroxide/Mg Hydroxide (Mylanta) 30 ml QIDPRN PRN GT stomach upset 12/31/19 08:00 01/30/20 07:59 Artificial Tears (Akwa-Tears) 1 drop EVERY 12 HOURS BOTH EYES 01/07/20 21:00 01/30/20 10:59 01/13/20 22:20 Atorvastatin Calcium (Lipitor) 80 mg BEDTIME GT 12/31/19 21:00 03/30/20 20:59 01/13/20 22:19 Dextrose (Dextrose 50%) 25 ml Q30M PRN IV Hypoglycemia 12/31/19 08:45 01/30/20 08:37 01/10/20 23:24 Dextrose (Dextrose 50%) 50 ml Q30M PRN IV hypoglycemia 12/31/19 08:45 03/30/20 08:44 01/10/20 12:06 Erythromycin (Alexis-Ped) 50 mg Q6HR GT 01/12/20 12:00 01/19/20 11:59 01/14/20 05:40 Insulin Aspart (NovoLOG) No Dose Q6HR SUBQ 12/31/19 12:00 03/30/20 11:59 01/13/20 12:41 Insulin Detemir (Levemir) 25 units Q12HR SUBQ 12/31/19 10:00 03/30/20 09:59 01/13/20 22:28 Metoclopramide HCl (Reglan) 10 mg Q6H IVP 01/09/20 18:00 02/08/20 17:59 01/14/20 05:40 Pantoprazole (Protonix) 40 mg Q12H IVP 01/02/20 21:00 02/01/20 20:59 01/13/20 22:33 Sodium Bicarbonate 50 ml/ Potassium Chloride 30 meq/ Dextrose 1,065 ml @ 75 mls/hr [id number] IV 01/13/20 22:00 02/12/20 21:59 01/13/20 22:25 Sodium Hypochlorite (Dakin's Half Strength) 1 applic DAILY TOPIC 01/01/20 09:00 01/31/20 08:59 01/13/20 08:45 Vancomycin HCl (Firvanq) 125 mg FOUR TIMES A DAY GT 01/12/20 13:00 01/17/20 12:59 01/13/20 22:32 Zinc Sulfate (Zinc Sulfate) 220 mg DAILY GT 12/31/19 09:00 03/30/20 08:59 01/13/20 08:44 Assessment/Plan Assessment/Plan IMPRESSION chronic respiratory failure Acute on chronic renal failure elevated K anemia GIB leukocytosis possible sepsis oral bleeding PLAN monitor HH- post transfusion monitor wbc IV hydration iv antibiotics ID , GI and renal likely needs HD- defer to renal vent as is monitor vitals hold feeds snf meds full code prognosis very poor for recovery difficult to optimize impression, plan, and exam edited and reviewed in detail care discussed with Lorenzo Chase MD Jan 14, 2020 08:25
[2020-01-14] MEDS: Levemir Flexpen SUBQ SCH ×2 (09:00→21:00)
[2020-01-14] MEDS: Zinc Sulfate 220mg GT SCH (09:36)
[2020-01-14] MEDS: Vancomycin oral 125mg/2.5ml GT SCH ×4 (09:37→18:01)
[2020-01-14] MEDS: Dakin's 0.25% (Half Strength) 16oz TOPIC SCH (09:37)
[2020-01-14] MEDS: Pantoprazole Inj IVP SCH ×2 (09:37→21:26)
--- NOTE | 2020-01-14 10:14 | Infectious Diseases Prog Note ---
"Assessment/Plan Assessment/Plan antibiotics : po vancomycin 5.29.20 - A 1. e.coli | klebsiella | pseudomonas pneumonia s/p rx 2. renal failure 3. respiratory failure 4. intracranial hemorrhage 5. paraplegia 6. leucocytosis improving 7. COVID 19 test negative x 2 8. gangrene of feet bilaterally P 1. continue po vancomycin 9 more days 2. will follow up cultures 3. dc right groin catheter Subjective ROS Limited/Unobtainable: Yes Allergies: Coded Allergies: No Known Allergies (Unverified , 10/07/19) Objective Vital Signs Last 24 Hour Vital Signs Date Time Temp Pulse Resp B/P (MAP) Pulse Ox O2 Delivery O2 Flow Rate FiO2 01/14/20 08:33 66 01/14/20 07:26 67 24 40 01/14/20 05:20 76 24 40 01/14/20 04:01 70 25 40 01/14/20 04:00 96.9 70 30 137/70 (92) 100 01/14/20 04:00 68 01/14/20 04:00 40 01/14/20 04:00 Mechanical Ventilator 01/14/20 01:21 72 24 40 01/14/20 00:00 68 01/14/20 00:00 Mechanical Ventilator 01/14/20 00:00 96.6 67 25 135/75 (95) 100 01/14/20 00:00 40 01/13/20 22:54 66 24 40 01/13/20 21:05 70 24 40 01/13/20 20:00 97.0 70 23 139/74 (95) 100 01/13/20 20:00 Mechanical Ventilator 01/13/20 20:00 40 01/13/20 19:18 70 27 40 01/13/20 19:08 71 01/13/20 17:28 71 26 40 01/13/20 16:00 Mechanical Ventilator 01/13/20 16:00 40 01/13/20 16:00 97.1 71 18 122/68 (86) 99 01/13/20 16:00 70 01/13/20 14:33 72 25 40 01/13/20 13:13 71 24 40 01/13/20 12:00 40 01/13/20 12:00 70 01/13/20 12:00 Mechanical Ventilator 01/13/20 12:00 96.8 71 18 133/67 (89) 100 01/13/20 11:10 72 26 40 Height (Feet): 5 Height (Inches): 5.00 Weight (Pounds): 171 HEENT: status post trach Respiratory/Chest: lungs clear Cardiovascular: normal rate, regular rhythm, no gallop/murmur Abdomen: soft, non tender, other - GT Extremities: other - + edema, right groin catheter, necrotic feet bilaterally Laboratory Tests Test 01/13/20 10:44 01/14/20 03:15 White Blood Count 6.8 K/UL (4.8-10.8) # 9.0 K/UL (4.8-10.8) Red Blood Count 2.20 M/UL (4.70-6.10) L 3.62 M/UL (4.70-6.10) L Hemoglobin 6.6 G/DL (14.2-18.0) *L 10.5 G/DL (14.2-18.0) #L Hematocrit 18.3 % (42.0-52.0) L 29.3 % (42.0-52.0) #L Mean Corpuscular Volume 84 FL (80-99) 81 FL (80-99) Mean Corpuscular Hemoglobin 29.9 PG (27.0-31.0) 29.0 PG (27.0-31.0) Mean Corpuscular Hemoglobin Concent 35.8 G/DL (32.0-36.0) 35.8 G/DL (32.0-36.0) Red Cell Distribution Width 13.4 % (11.6-14.8) 15.2 % (11.6-14.8) H Platelet Count 38 K/UL (150-450) L 55 K/UL (150-450) L Mean Platelet Volume 15.6 FL (6.5-10.1) H FL (6.5-10.1) Neutrophils (%) (Auto) % (45.0-75.0) % (45.0-75.0) Lymphocytes (%) (Auto) % (20.0-45.0) % (20.0-45.0) Monocytes (%) (Auto) % (1.0-10.0) % (1.0-10.0) Eosinophils (%) (Auto) % (0.0-3.0) % (0.0-3.0) Basophils (%) (Auto) % (0.0-2.0) % (0.0-2.0) Differential Total Cells Counted 100 100 Neutrophils % (Manual) 77 % (45-75) H 80 % (45-75) H Lymphocytes % (Manual) 10 % (20-45) L 4 % (20-45) L Monocytes % (Manual) 7 % (1-10) 9 % (1-10) Eosinophils % (Manual) 6 % (0-3) H 7 % (0-3) H Basophils % (Manual) 0 % (0-2) 0 % (0-2) Band Neutrophils 0 % (0-8) 0 % (0-8) Platelet Estimate Decreased L Decreased L Platelet Morphology Normal Normal Hypochromasia 1+ 1+ Anisocytosis 1+ Prothrombin Time 15.1 SEC (9.30-11.50) H Prothromb Time International Ratio 1.4 (0.9-1.1) H Activated Partial Thromboplast Time 39 SEC (23-33) H Sodium Level 137 MMOL/L (136-145) Potassium Level 3.4 MMOL/L (3.5-5.1) L Chloride Level 102 MMOL/L (98-107) Carbon Dioxide Level 21 MMOL/L (21-32) Anion Gap 14 mmol/L (5-15) Blood Urea Nitrogen 120 mg/dL (7-18) H Creatinine 4.3 MG/DL (0.55-1.30) H Estimat Glomerular Filtration Rate 17.6 mL/min (>60) Glucose Level 131 MG/DL (74-106) H Calcium Level 8.1 MG/DL (8.5-10.1) L Total Bilirubin 1.0 MG/DL (0.2-1.0) Aspartate Amino Transf (AST/SGOT) 254 U/L (15-37) H Alanine Aminotransferase (ALT/SGPT) 174 U/L (12-78) H Alkaline Phosphatase 200 U/L (46-116) H Total Protein 5.6 G/DL (6.4-8.2) L Albumin 0.8 G/DL (3.4-5.0) L Globulin 4.8 g/dL Albumin/Globulin Ratio 0.2 (1.0-2.7) L Current Medications Medications (Trade) Dose Ordered Sig/[place] Route PRN Reason Start Time Stop Time Status Last Admin Dose Admin Acetaminophen (Tylenol) 650 mg Q4H PRN GT Mild Pain (Pain Scale 1-3) 12/31/19 07:45 01/30/20 07:44 Acetaminophen (Tylenol) 650 mg Q4H PRN GT Temp >100.5 12/31/19 07:45 01/30/20 07:44 Al Hydroxide/Mg Hydroxide (Mylanta) 30 ml QIDPRN PRN GT stomach upset 12/31/19 08:00 01/30/20 07:59 Artificial Tears (Akwa-Tears) 1 drop EVERY 12 HOURS BOTH EYES 01/07/20 21:00 01/30/20 10:59 01/14/20 09:39 Atorvastatin Calcium (Lipitor) 80 mg BEDTIME GT 12/31/19 21:00 03/30/20 20:59 01/13/20 22:19 Dextrose (Dextrose 50%) 25 ml Q30M PRN IV Hypoglycemia 12/31/19 08:45 01/30/20 08:37 01/10/20 23:24 Dextrose (Dextrose 50%) 50 ml Q30M PRN IV hypoglycemia 12/31/19 08:45 03/30/20 08:44 01/10/20 12:06 Erythromycin (Alexis-Ped) 50 mg Q6HR GT 01/12/20 12:00 01/19/20 11:59 01/14/20 05:40 Insulin Aspart (NovoLOG) No Dose Q6HR SUBQ 12/31/19 12:00 03/30/20 11:59 01/13/20 12:41 Insulin Detemir (Levemir) 25 units Q12HR SUBQ 12/31/19 10:00 03/30/20 09:59 01/14/20 09:00 Metoclopramide HCl (Reglan) 10 mg Q6H IVP 01/09/20 18:00 02/08/20 17:59 01/14/20 05:40 Pantoprazole (Protonix) 40 mg Q12H IVP 01/02/20 21:00 02/01/20 20:59 01/14/20 09:37 Sodium Bicarbonate 50 ml/ Potassium Chloride 30 meq/ Dextrose 1,065 ml @ 75 mls/hr [id number] IV 01/13/20 22:00 02/12/20 21:59 01/13/20 22:25 Sodium Hypochlorite (Dakin's Half Strength) 1 applic DAILY TOPIC 01/01/20 09:00 01/31/20 08:59 01/14/20 09:37 Vancomycin HCl (Firvanq) 125 mg FOUR TIMES A DAY GT 01/12/20 13:00 01/17/20 12:59 01/14/20 09:37 Zinc Sulfate (Zinc Sulfate) 220 mg DAILY GT 12/31/19 09:00 03/30/20 08:59 01/14/20 09:36 Tony Apple MD Jan 14, 2020 10:13"
[2020-01-14] MEDS: SODIUM BICARBONATE IV SCH ×2 (11:54→21:26)
[2020-01-14] MEDS: DEXTROSE 10% IV SCH ×2 (11:54→21:26)
[2020-01-14] MEDS: POTASSIUM CHLORIDE IV SCH ×2 (11:54→21:26)
--- NOTE | 2020-01-14 12:22 | General Progress Note ---
Assessment/Plan Assessment/Plan: sepsis anemia GIB thrombocytopenia hyponatremia ARF DM dysphagia with GT s/p EGD/PEG GTF low dose erythromycin reglan ppi diarrhea back on ectal tube will fu Subjective ROS Limited/Unobtainable: No Allergies: Coded Allergies: No Known Allergies (Unverified , 10/07/19) Objective Last 24 Hour Vital Signs Date Time Temp Pulse Resp B/P (MAP) Pulse Ox O2 Delivery O2 Flow Rate FiO2 01/14/20 11:17 65 26 40 01/14/20 08:33 66 01/14/20 08:00 40 01/14/20 08:00 Mechanical Ventilator 01/14/20 08:00 97.1 68 20 145/89 (107) 100 01/14/20 07:26 67 24 40 01/14/20 05:20 76 24 40 01/14/20 04:01 70 25 40 01/14/20 04:00 96.9 70 30 137/70 (92) 100 01/14/20 04:00 68 01/14/20 04:00 40 01/14/20 04:00 Mechanical Ventilator 01/14/20 01:21 72 24 40 01/14/20 00:00 68 01/14/20 00:00 Mechanical Ventilator 01/14/20 00:00 96.6 67 25 135/75 (95) 100 01/14/20 00:00 40 01/13/20 22:54 66 24 40 01/13/20 21:05 70 24 40 01/13/20 20:00 97.0 70 23 139/74 (95) 100 01/13/20 20:00 Mechanical Ventilator 01/13/20 20:00 40 01/13/20 19:18 70 27 40 01/13/20 19:08 71 01/13/20 17:28 71 26 40 01/13/20 16:00 Mechanical Ventilator 01/13/20 16:00 40 01/13/20 16:00 97.1 71 18 122/68 (86) 99 01/13/20 16:00 70 01/13/20 14:33 72 25 40 01/13/20 13:13 71 24 40 Intake and Output 01/13/20 01/14/20 19:00 07:00 Intake Total 575 ml 1244.75 ml Output Total 600 ml 625 ml Balance -25 ml 619.75 ml Intake Free Water 200 ml 200 ml IV Total 75 ml 718.75 ml Tube Feeding 300 ml 326 ml Output Urine Total 600 ml 625 ml # Voids 1 # Bowel Movements 1 2 Laboratory Tests 01/14/20 03:15: White Blood Count 9.0, Red Blood Count 3.62L, Hemoglobin 10.5#L, Hematocrit 29.3 #L, Mean Corpuscular Volume 81, Mean Corpuscular Hemoglobin 29.0, Mean Corpuscular Hemoglobin Concent 35.8, Red Cell Distribution Width 15.2H, Platelet Count 55L, Mean Platelet Volume , Neutrophils (%) (Auto) , Lymphocytes (%) (Auto) , Monocytes (%) (Auto) , Eosinophils (%) (Auto) , Basophils (%) (Auto ) , Differential Total Cells Counted 100, Neutrophils % (Manual) 80H, Lymphocytes % (Manual) 4L, Monocytes % (Manual) 9, Eosinophils % (Manual) 7H, Basophils % (Manual) 0, Band Neutrophils 0, Platelet Estimate DecreasedL, Platelet Morphology Normal, Hypochromasia 1+, Anisocytosis 1+, Prothrombin Time 15.1H, Prothromb Time International Ratio 1.4H, Activated Partial Thromboplast Time 39H, Sodium Level 137, Potassium Level 3.4L, Chloride Level 102, Carbon Dioxide Level 21, Anion Gap 14, Blood Urea Nitrogen 120H, Creatinine 4.3H, Estimat Glomerular Filtration Rate 17.6, Glucose Level 131H, Calcium Level 8.1L , Total Bilirubin 1.0, Aspartate Amino Transf (AST/SGOT) 254H, Alanine Aminotransferase (ALT/SGPT) 174H, Alkaline Phosphatase 200H, Total Protein 5.6L , Albumin 0.8L, Globulin 4.8, Albumin/Globulin Ratio 0.2L Height (Feet): 5 Height (Inches): 5.00 Weight (Pounds): 171 General Appearance: no apparent distress EENT: normal ENT inspection Neck: supple Cardiovascular: normal rate Respiratory/Chest: decreased breath sounds Abdomen: normal bowel sounds, non tender, soft Extremities: non-tender Toni Mckenzie MD Jan 14, 2020 12:22
--- NOTE | 2020-01-14 12:25 | Hematology/Onc Progress Note ---
Assessment/Plan Assessment/Plan Assessment and recs # Thrombocytopenia - potential causes multifactorial, evaluate liver and viral etiologies to begin, also could be related to underlying medications patient has received. May be due to DIC in this case, or consumption --> Hep panel and HIV negative --> US abd to evaluate for cirrhosis and hsm --> neg for cirrhosis and hsm --> Peripheral smear ordered to evaluate for blasts /schistocytes --> abx and other meds have been reviewed --> ok for ppx if plt >50k w/ either heparin or lovenox --> Transfuse if Plt < 20k and fever, or if Plt < 10k without fever --> plt trend 41-->32-->21k-->20 -->61k-->45-->62-->51->38->55 --> plt transfusion 01/04 --> for sepsis is on abx # Anemia due to Upper GI bleed, hematuria --> no evidence of hemolysis is noted --> smear noted --> anemia panel reviewed, ferritin high --> no iron or epo needed --> po iron ok --> for hematuria as per urology --> Pending endoscopy when clear from covid19 --> hgb trend: 9.1 ->8.3->6.9-->8.1-->8.3-->7.6 -->6.6-->10.5 --> prbc: 2 units 01/02, 01/12 # Leukocytosis due to e/coli/kleb pna --> on connor/wilma--> vanc --> wbc trend 23-->32-->17.1-->13.9 # Hyperkalemia --> kayxelate as needed --> k trend # ARF (acute renal failure) --> per renal # Hyponatremia # Gram negative pneumonia # Ventilator dependent respiratory failure # intracranial hemorrhage # paraplegia # Dysphagia with gtube The timing of this note does not necessarily reflect the time of the patient was seen. Greatly appreciate consultation. Subjective Neurologic/Psychiatric: Denies: no symptoms, anxiety, depressed, emotional problems, headache, numbness, paresthesia, pre-existing deficit, seizure, tingling, tremors, weakness, other Endocrine: Denies: no symptoms, excessive sweating, flushing, intolerance to cold, intolerance to heat, increased hunger, increased thirst, increased urine, unexplained weight gain, unexplained weight loss, other Allergies: Coded Allergies: No Known Allergies (Unverified , 10/07/19) All Systems: reviewed and negative except above Subjective 01/03obtunded, s/p rbc x2, hgb improved to 9.1, us abd reviewed, hematuria+ 01/04 plt are better, got 1 unit pf platets today as well, plt now 61k, less gi bleed overnight, some black tarry stool noted 01/05 nv, labs noted, hgb 8.5, no hemolysis noted, no bleeding, plt 83, egd tomorrow 01/06 egd for this am, results are pending, labs noted 01/09 no major changes, labs noted, no bleeding wbc higher, on abx 01/10 sdu, wbc improving, inr 1.4, vent, h/h stable, no distress 01/11 hgb 7.6, no tx required, repeat cbc for tomorrow, on vent 01/12 remains on vent, hgb 6.6, getting 2 iunits prbc today, will need picc 01/13 trach to vent, nepro feeds ongoing, hgb improved 10.5 Objective Objective Current Medications Medications (Trade) Dose Ordered Sig/[place] Route PRN Reason Start Time Stop Time Status Last Admin Dose Admin Acetaminophen (Tylenol) 650 mg Q4H PRN GT Mild Pain (Pain Scale 1-3) 12/31/19 07:45 01/30/20 07:44 Acetaminophen (Tylenol) 650 mg Q4H PRN GT Temp >100.5 12/31/19 07:45 01/30/20 07:44 Al Hydroxide/Mg Hydroxide (Mylanta) 30 ml QIDPRN PRN GT stomach upset 12/31/19 08:00 01/30/20 07:59 Artificial Tears (Akwa-Tears) 1 drop EVERY 12 HOURS BOTH EYES 01/07/20 21:00 01/30/20 10:59 01/14/20 09:39 Atorvastatin Calcium (Lipitor) 80 mg BEDTIME GT 12/31/19 21:00 03/30/20 20:59 01/13/20 22:19 Dextrose (Dextrose 50%) 25 ml Q30M PRN IV Hypoglycemia 12/31/19 08:45 01/30/20 08:37 01/10/20 23:24 Dextrose (Dextrose 50%) 50 ml Q30M PRN IV hypoglycemia 12/31/19 08:45 03/30/20 08:44 01/10/20 12:06 Erythromycin (Alexis-Ped) 50 mg Q6HR GT 01/12/20 12:00 01/19/20 11:59 01/14/20 11:53 Insulin Aspart (NovoLOG) No Dose Q6HR SUBQ 12/31/19 12:00 03/30/20 11:59 01/13/20 12:41 Insulin Detemir (Levemir) 25 units Q12HR SUBQ 12/31/19 10:00 03/30/20 09:59 01/14/20 09:00 Metoclopramide HCl (Reglan) 10 mg Q6H IVP 01/09/20 18:00 02/08/20 17:59 01/14/20 11:53 Pantoprazole (Protonix) 40 mg Q12H IVP 01/02/20 21:00 02/01/20 20:59 01/14/20 09:37 Sodium Bicarbonate 50 ml/ Potassium Chloride 30 meq/ Dextrose 1,065 ml @ 75 mls/hr [id number] IV 01/13/20 22:00 02/12/20 21:59 01/14/20 11:54 Sodium Hypochlorite (Dakin's Half Strength) 1 applic DAILY TOPIC 01/01/20 09:00 01/31/20 08:59 01/14/20 09:37 Vancomycin HCl (Firvanq) 125 mg FOUR TIMES A DAY GT 01/12/20 13:00 01/17/20 12:59 01/14/20 12:12 Zinc Sulfate (Zinc Sulfate) 220 mg DAILY GT 12/31/19 09:00 03/30/20 08:59 01/14/20 09:36 Last 24 Hour Vital Signs Date Time Temp Pulse Resp B/P (MAP) Pulse Ox O2 Delivery O2 Flow Rate FiO2 01/14/20 12:00 Mechanical Ventilator 01/14/20 12:00 40 01/14/20 11:17 65 26 40 01/14/20 08:33 66 01/14/20 08:00 40 01/14/20 08:00 Mechanical Ventilator 01/14/20 08:00 97.1 68 20 145/89 (107) 100 01/14/20 07:26 67 24 40 01/14/20 05:20 76 24 40 01/14/20 04:01 70 25 40 01/14/20 04:00 96.9 70 30 137/70 (92) 100 01/14/20 04:00 68 01/14/20 04:00 40 01/14/20 04:00 Mechanical Ventilator 01/14/20 01:21 72 24 40 01/14/20 00:00 68 01/14/20 00:00 Mechanical Ventilator 01/14/20 00:00 96.6 67 25 135/75 (95) 100 01/14/20 00:00 40 01/13/20 22:54 66 24 40 01/13/20 21:05 70 24 40 01/13/20 20:00 97.0 70 23 139/74 (95) 100 01/13/20 20:00 Mechanical Ventilator 01/13/20 20:00 40 01/13/20 19:18 70 27 40 01/13/20 19:08 71 01/13/20 17:28 71 26 40 01/13/20 16:00 Mechanical Ventilator 01/13/20 16:00 40 01/13/20 16:00 97.1 71 18 122/68 (86) 99 01/13/20 16:00 70 01/13/20 14:33 72 25 40 01/13/20 13:13 71 24 40 01/13/20 12:00 40 01/13/20 12:00 70 01/13/20 12:00 Mechanical Ventilator 01/13/20 12:00 96.8 71 18 133/67 (89) 100 01/13/20 11:10 72 26 40 01/13/20 09:22 72 26 40 01/13/20 08:00 97.1 68 18 127/71 (89) 99 01/13/20 08:00 Mechanical Ventilator 01/13/20 08:00 67 01/13/20 08:00 40 01/13/20 07:07 71 24 40 01/13/20 05:08 72 25 40 01/13/20 04:00 40 01/13/20 04:00 Mechanical Ventilator 01/13/20 04:00 97.9 73 29 127/72 (90) 97 01/13/20 04:00 71 01/13/20 03:26 71 27 40 01/13/20 01:03 69 24 40 01/13/20 00:00 40 01/13/20 00:00 Mechanical Ventilator 01/13/20 00:00 69 01/12/20 23:50 97.1 70 24 113/62 (79) 98 01/12/20 23:18 69 24 40 01/12/20 21:32 70 27 40 01/12/20 20:00 Mechanical Ventilator 01/12/20 20:00 40 01/12/20 20:00 96.8 69 30 133/79 (97) 95 01/12/20 20:00 68 01/12/20 19:36 63 26 40 01/12/20 16:59 68 28 40 01/12/20 16:00 40 01/12/20 16:00 63 01/12/20 16:00 96.1 62 21 109/73 (85) 96 01/12/20 16:00 Mechanical Ventilator 01/12/20 15:05 63 24 40 01/12/20 13:10 65 27 40 Intake and Output 01/13/20 01/14/20 19:00 07:00 Intake Total 575 ml 1244.75 ml Output Total 600 ml 625 ml Balance -25 ml 619.75 ml Intake Free Water 200 ml 200 ml IV Total 75 ml 718.75 ml Tube Feeding 300 ml 326 ml Output Urine Total 600 ml 625 ml # Voids 1 # Bowel Movements 1 2 Labs Test 01/12/20 04:00 01/13/20 03:45 01/13/20 10:44 01/14/20 03:15 White Blood Count 13.9 K/UL (4.8-10.8) 6.8 K/UL (4.8-10.8) 9.0 K/UL (4.8-10.8) Red Blood Count 2.50 M/UL (4.70-6.10) 2.20 M/UL (4.70-6.10) 3.62 M/UL (4.70-6.10) Hemoglobin 7.6 G/DL (14.2-18.0) 6.6 G/DL (14.2-18.0) 10.5 G/DL (14.2-18.0) Hematocrit 20.6 % (42.0-52.0) 18.3 % (42.0-52.0) 29.3 % (42.0-52.0) Mean Corpuscular Volume 82 FL (80-99) 84 FL (80-99) 81 FL (80-99) Mean Corpuscular Hemoglobin 30.4 PG (27.0-31.0) 29.9 PG (27.0-31.0) 29.0 PG (27.0-31.0) Mean Corpuscular Hemoglobin Concent 36.9 G/DL (32.0-36.0) 35.8 G/DL (32.0-36.0) 35.8 G/DL (32.0-36.0) Red Cell Distribution Width 12.8 % (11.6-14.8) 13.4 % (11.6-14.8) 15.2 % (11.6-14.8) Platelet Count 51 K/UL (150-450) 38 K/UL (150-450) 55 K/UL (150-450) Mean Platelet Volume 13.8 FL (6.5-10.1) 15.6 FL (6.5-10.1) FL (6.5-10.1) Neutrophils (%) (Auto) % (45.0-75.0) % (45.0-75.0) % (45.0-75.0) Lymphocytes (%) (Auto) % (20.0-45.0) % (20.0-45.0) % (20.0-45.0) Monocytes (%) (Auto) % (1.0-10.0) % (1.0-10.0) % (1.0-10.0) Eosinophils (%) (Auto) % (0.0-3.0) % (0.0-3.0) % (0.0-3.0) Basophils (%) (Auto) % (0.0-2.0) % (0.0-2.0) % (0.0-2.0) Differential Total Cells Counted 100 100 100 Neutrophils % (Manual) 84 % (45-75) 77 % (45-75) 80 % (45-75) Lymphocytes % (Manual) 7 % (20-45) 10 % (20-45) 4 % (20-45) Monocytes % (Manual) 2 % (1-10) 7 % (1-10) 9 % (1-10) Eosinophils % (Manual) 7 % (0-3) 6 % (0-3) 7 % (0-3) Basophils % (Manual) 0 % (0-2) 0 % (0-2) 0 % (0-2) Band Neutrophils 0 % (0-8) 0 % (0-8) 0 % (0-8) Platelet Estimate Decreased Decreased Decreased Platelet Morphology Normal Normal Giant Platelets Occasional Anisocytosis 1+ 1+ Sodium Level 137 MMOL/L (136-145) 137 MMOL/L (136-145) Potassium Level 3.0 MMOL/L (3.5-5.1) 3.4 MMOL/L (3.5-5.1) Chloride Level 103 MMOL/L (98-107) 102 MMOL/L (98-107) Carbon Dioxide Level 22 MMOL/L (21-32) 21 MMOL/L (21-32) Anion Gap 13 mmol/L (5-15) 14 mmol/L (5-15) Blood Urea Nitrogen 122 mg/dL (7-18) 120 mg/dL (7-18) Creatinine 4.3 MG/DL (0.55-1.30) 4.3 MG/DL (0.55-1.30) Estimat Glomerular Filtration Rate 17.6 mL/min (>60) 17.6 mL/min (>60) Glucose Level 150 MG/DL (74-106) 131 MG/DL (74-106) Calcium Level 7.6 MG/DL (8.5-10.1) 8.1 MG/DL (8.5-10.1) Hypochromasia 1+ 1+ Prothrombin Time 15.1 SEC (9.30-11.50) Prothromb Time International Ratio 1.4 (0.9-1.1) Activated Partial Thromboplast Time 39 SEC (23-33) Total Bilirubin 1.0 MG/DL (0.2-1.0) Aspartate Amino Transf (AST/SGOT) 254 U/L (15-37) Alanine Aminotransferase (ALT/SGPT) 174 U/L (12-78) Alkaline Phosphatase 200 U/L (46-116) Total Protein 5.6 G/DL (6.4-8.2) Albumin 0.8 G/DL (3.4-5.0) Globulin 4.8 g/dL Albumin/Globulin Ratio 0.2 (1.0-2.7) Height (Feet): 5 Height (Inches): 5.00 Weight (Pounds): 171 Objective Physical Exam: Vitals: reviewed General: NAD ++obtunded HEENT: nc, at, mouth guard+ Neck: supple++trach Chest: clear breath sounds bilaterally Cardiovascular: RRR, no s3, s4 Abdomen: soft, nontender, nd ++gtube Extremities: no cce, normal range of motion, ++ Spasticity in the left upper extremity. Flaccid on the right. Neuro: nonfocal : skinny+ Wilmer Turner MD Jan 14, 2020 12:25
--- NOTE | 2020-01-14 15:57 | Surgery Progress Note ---
Surgery Progress Note Subjective Procedure Performed right femoral central venous catheter insertion Additional Comments off abx.improving labs noted exam with edema trach collar okay on tf diarrhea line removed Objective Last 24 Hour Vital Signs Date Time Temp Pulse Resp B/P (MAP) Pulse Ox O2 Delivery O2 Flow Rate FiO2 01/14/20 15:16 63 24 40 01/14/20 12:00 97.2 65 20 145/71 (95) 99 01/14/20 12:00 Mechanical Ventilator 01/14/20 12:00 66 01/14/20 12:00 40 01/14/20 11:17 65 26 40 01/14/20 08:33 66 01/14/20 08:00 40 01/14/20 08:00 Mechanical Ventilator 01/14/20 08:00 97.1 68 20 145/89 (107) 100 01/14/20 07:26 67 24 40 01/14/20 05:20 76 24 40 01/14/20 04:01 70 25 40 01/14/20 04:00 96.9 70 30 137/70 (92) 100 01/14/20 04:00 68 01/14/20 04:00 40 01/14/20 04:00 Mechanical Ventilator 01/14/20 01:21 72 24 40 01/14/20 00:00 68 01/14/20 00:00 Mechanical Ventilator 01/14/20 00:00 96.6 67 25 135/75 (95) 100 01/14/20 00:00 40 01/13/20 22:54 66 24 40 01/13/20 21:05 70 24 40 01/13/20 20:00 97.0 70 23 139/74 (95) 100 01/13/20 20:00 Mechanical Ventilator 01/13/20 20:00 40 01/13/20 19:18 70 27 40 01/13/20 19:08 71 01/13/20 17:28 71 26 40 01/13/20 16:00 Mechanical Ventilator 01/13/20 16:00 40 01/13/20 16:00 97.1 71 18 122/68 (86) 99 01/13/20 16:00 70 I&O Intake and Output 01/13/20 01/14/20 19:00 07:00 Intake Total 575 ml 1244.75 ml Output Total 600 ml 625 ml Balance -25 ml 619.75 ml Intake Free Water 200 ml 200 ml IV Total 75 ml 718.75 ml Tube Feeding 300 ml 326 ml Output Urine Total 600 ml 625 ml # Voids 1 # Bowel Movements 1 2 Dressing: other Wound: other Drains: other Cardiovascular: RSR Respiratory: decreased breath sounds Abdomen: soft, non-tender, present bowel sounds Extremities: edema, no cyanosis, other Laboratory Tests Test 01/14/20 03:15 White Blood Count 9.0 K/UL (4.8-10.8) Red Blood Count 3.62 M/UL (4.70-6.10) L Hemoglobin 10.5 G/DL (14.2-18.0) #L Hematocrit 29.3 % (42.0-52.0) #L Mean Corpuscular Volume 81 FL (80-99) Mean Corpuscular Hemoglobin 29.0 PG (27.0-31.0) Mean Corpuscular Hemoglobin Concent 35.8 G/DL (32.0-36.0) Red Cell Distribution Width 15.2 % (11.6-14.8) H Platelet Count 55 K/UL (150-450) L Mean Platelet Volume FL (6.5-10.1) Neutrophils (%) (Auto) % (45.0-75.0) Lymphocytes (%) (Auto) % (20.0-45.0) Monocytes (%) (Auto) % (1.0-10.0) Eosinophils (%) (Auto) % (0.0-3.0) Basophils (%) (Auto) % (0.0-2.0) Differential Total Cells Counted 100 Neutrophils % (Manual) 80 % (45-75) H Lymphocytes % (Manual) 4 % (20-45) L Monocytes % (Manual) 9 % (1-10) Eosinophils % (Manual) 7 % (0-3) H Basophils % (Manual) 0 % (0-2) Band Neutrophils 0 % (0-8) Platelet Estimate Decreased L Platelet Morphology Normal Hypochromasia 1+ Anisocytosis 1+ Prothrombin Time 15.1 SEC (9.30-11.50) H Prothromb Time International Ratio 1.4 (0.9-1.1) H Activated Partial Thromboplast Time 39 SEC (23-33) H Sodium Level 137 MMOL/L (136-145) Potassium Level 3.4 MMOL/L (3.5-5.1) L Chloride Level 102 MMOL/L (98-107) Carbon Dioxide Level 21 MMOL/L (21-32) Anion Gap 14 mmol/L (5-15) Blood Urea Nitrogen 120 mg/dL (7-18) H Creatinine 4.3 MG/DL (0.55-1.30) H Estimat Glomerular Filtration Rate 17.6 mL/min (>60) Glucose Level 131 MG/DL (74-106) H Calcium Level 8.1 MG/DL (8.5-10.1) L Total Bilirubin 1.0 MG/DL (0.2-1.0) Aspartate Amino Transf (AST/SGOT) 254 U/L (15-37) H Alanine Aminotransferase (ALT/SGPT) 174 U/L (12-78) H Alkaline Phosphatase 200 U/L (46-116) H Total Protein 5.6 G/DL (6.4-8.2) L Albumin 0.8 G/DL (3.4-5.0) L Globulin 4.8 g/dL Albumin/Globulin Ratio 0.2 (1.0-2.7) L Plan Problems: (1) Hyponatremia (2) ARF (acute renal failure) (3) Hyperkalemia (4) Pressure sore on sacrum Assessment & Plan: Pt presented on admission with Sacral Pressure injury and Necrosis Both Both R lower ext, R foot and L foot. Generalized edema noted. Both upper ext noted to have multiple serous blisters ,some of which are weeping serous exudate. Full thickness Sacral Pressure Injury with undermined Borders. Base of wound is 75% loose necrotic tissue,25% bree. Bone exposure at base of wound. Area of necrosis noted at distal aspect of wound in space between wound and anus.Edges are macerated. Wound is malodorous.(L)9.5cm x (W)9.2cm x (D)2.9cm,undermining clockwise 10-3 by 3.8cm @12 o'clock. Scattered areas of hyperpigmentation noted to R and L clefts of buttocks. Unable to determine exudate as pt is continuously oozing large amt of semi soft black stool and leaking into wound because of close proximity to his rectum. At upper, R gluteal cheek is additional Pressure Injury with small amt Biofilm at base of wound. Edges are pink and adherent to base of wound. No exudate noted.(L)3cm x (W)2.6cm. Medially to distal Tibia,and extending to R foot is necrotic and malodorous.Wound is partially opened at posterior R tibia but is dry . L foot is necrotic and malodorous. No exudate noted. Tx.Plan: Cleanse Sacral wound with Dakin's 0.25% archana.. Loosely Pack wound with Dakin's moistened Kerlix.Apply Moisture Barrier Paste periwound.Cover with Optifoam drsg.Change Daily and PRN. Cleanse R lower ext and R foot with Dakin's 0.25% Archana. Cover wounds with ABD Pads.Wrap with Kerlix Daily and prn. Cleanse L foot Wounds with Dakin's 0.25% Archana. Cover wounds with ABD Pads and wrap with Kerlix Daily and prn. (5) Upper GI bleed Assessment & Plan: Patient with sepsis, abnormal labs, GI bleed, pending COVID eval. Labs noted. Exam reviewed. Chest x-ray noted as below. Discussed with GI. Plan for endoscopy once COVID status evaluated. Trend hemoglobin for now transfuse PRN. G-tube is functional and okay for medications and will plan tube feeds accordingly. No acute surgical intervention as patient is actively bleeding. Proton pump inhibitor recommended and Rx as written. Will follow with recommendations thank you for let me participate in patient's care plt low anemia prognosis guarded no active GI bleeding noted There is a tracheostomy in place. Vascularity is normal. Hazy densities in the lung bases may be layering effusions. Cardiac and mediastinal silhouette are within normal limits. The bony thorax appear unremarkable. line removed will monitor for bleeding IMPRESSION: Bibasilar hazy densities perhaps layering effusions. right fem line not functional noted manipulation as suture was dislodged. line replaced 1. Two or three gastric AVMs. 2. Ulcer with a small visible vessel, status post gold probe bipolar cauterization. DAILY ESTIMATED NEEDS: Needs based on Critical Care, Wounds, TR / 61kg 25-30 kcals/kg [id number] total kcals 0.8-1.25 (increase w/ renal improvement) g protein/kg 49-76 g total protein 25-30 mL/kg 0692-0904 total fluid mLs NUTRITION DIAGNOSIS: * Swallowing difficulty R/T respiratory status, dysphagia as evidenced by trach/vent dep, PEG dep. * Increased kcal/prot intake needs R/T wound healing as evidenced by admitted w/ multiple wounds including full thickness wound @ sacrum, pressure Injury with small amt Biofilm at base of wound @ upper R gluteal cheek, necrotic wound @ medial to distal Tibia,and extending to R foot and L foot * Altered nutrition related lab R/T TR as evidenced by elev BUN (215-> 134), elev creat (5.2->4.3), low Na (124 -> wnl), elev K (6.7 -> wnl) CURRENT TF:TF HELD ENTERAL NUTRITION RECOMMENDATIONS: Nepro @ 38ml/hr x 24 hrs to provide 912ml, 1642kcal, 74g prot, 663ml free water * Once medically appropriate to feed, initiate TF -> rec Nepro at this time given TR (Creat 5.2 -> 4.3) w/ elev K upon adm * Initiate Nepro @ 18ml/hr x 6hrs, advance 10ml q 4-6 hrs as tolerated to goal rate * HOB over 30 degrees/ water flush per MD Monitor renal fxn closely, need to continue renal TF formula ADDITIONAL RECOMMENDATIONS: * Per SNF: HT=62" WT= 135lbs (12/25/19) * Monitor renal fxn and lytes (slowly improving renal fxn) * Monitor ability to resume TF- TF holding cont to be needed, consider initiating parenteral nutrition * Wound healing: add Ajay BID w/ TF order * Monitor for hypoglycemia: rec to hold ALL insulin while pt is NPO Javid Singh Jan 14, 2020 15:57
--- NOTE | 2020-01-14 16:01 | Operative Note - PDOC ---
Operative Note Operative Note Pre-op Diagnosis: sepsis anemia leukocytosis Procedure: right femoral central venous catheter removal Post-op Diagnosis: same as pre-op Surgeon: brunilda singh md Anesthesiologist: humberto Anesthesia: MAC, other Specimen: none Complications: none Condition: stable Estimated Blood Loss: none Drains: none Implant(s) used?: No Indications for Procedure off support no abx tolerating tube feeds line fem and in for a while line ready for removal Description of Procedure made comfortable in supine position dressings removed site cleaned sutures cut line removed pressure held until hemostasis monitored for hemostasis until noted Brunilda Singh Jan 14, 2020 16:01
[2020-01-14] MEDS ORDERED: Acetaminophen 650mg/20.3ml GT PRN ×2 (16:35→16:45)
[2020-01-14] MEDS ORDERED: Pantoprazole Inj IVP SCH (16:45)
[2020-01-14] MEDS ORDERED: Dextrose 50% 25ml Syringe IV PRN (16:45)
--- NOTE | 2020-01-14 20:44 | Nephrology Progress Note ---
Assessment/Plan Problem List: (1) Respiratory failure (2) ARF (acute renal failure) (3) Hyponatremia (4) Hyperkalemia (5) Upper GI bleed (6) Pressure sore on sacrum Plan dis continue iv fluids,BUN/creatinine 70/.91 11/2019, bicarb for acidosis , kcl BUN lower enteral fluids Subjective ROS Limited/Unobtainable: Yes Objective Objective Last 24 Hour Vital Signs Date Time Temp Pulse Resp B/P (MAP) Pulse Ox O2 Delivery O2 Flow Rate FiO2 01/14/20 19:35 72 27 40 01/14/20 16:00 63 01/14/20 16:00 40 01/14/20 16:00 97.7 67 20 139/84 (102) 99 01/14/20 16:00 Mechanical Ventilator 01/14/20 15:16 63 24 40 01/14/20 12:00 97.2 65 20 145/71 (95) 99 01/14/20 12:00 Mechanical Ventilator 01/14/20 12:00 66 01/14/20 12:00 40 01/14/20 11:17 65 26 40 01/14/20 08:33 66 01/14/20 08:00 40 01/14/20 08:00 Mechanical Ventilator 01/14/20 08:00 97.1 68 20 145/89 (107) 100 01/14/20 07:26 67 24 40 01/14/20 05:20 76 24 40 01/14/20 04:01 70 25 40 01/14/20 04:00 96.9 70 30 137/70 (92) 100 01/14/20 04:00 68 01/14/20 04:00 40 01/14/20 04:00 Mechanical Ventilator 01/14/20 01:21 72 24 40 01/14/20 00:00 68 01/14/20 00:00 Mechanical Ventilator 01/14/20 00:00 96.6 67 25 135/75 (95) 100 01/14/20 00:00 40 01/13/20 22:54 66 24 40 01/13/20 21:05 70 24 40 Intake and Output 01/13/20 01/14/20 19:00 07:00 Intake Total 575 ml 1244.75 ml Output Total 600 ml 625 ml Balance -25 ml 619.75 ml Intake Free Water 200 ml 200 ml IV Total 75 ml 718.75 ml Tube Feeding 300 ml 326 ml Output Urine Total 600 ml 625 ml # Voids 1 # Bowel Movements 1 2 Laboratory Tests 01/14/20 03:15: White Blood Count 9.0, Red Blood Count 3.62L, Hemoglobin 10.5#L, Hematocrit 29.3 #L, Mean Corpuscular Volume 81, Mean Corpuscular Hemoglobin 29.0, Mean Corpuscular Hemoglobin Concent 35.8, Red Cell Distribution Width 15.2H, Platelet Count 55L, Mean Platelet Volume , Neutrophils (%) (Auto) , Lymphocytes (%) (Auto) , Monocytes (%) (Auto) , Eosinophils (%) (Auto) , Basophils (%) (Auto ) , Differential Total Cells Counted 100, Neutrophils % (Manual) 80H, Lymphocytes % (Manual) 4L, Monocytes % (Manual) 9, Eosinophils % (Manual) 7H, Basophils % (Manual) 0, Band Neutrophils 0, Platelet Estimate DecreasedL, Platelet Morphology Normal, Hypochromasia 1+, Anisocytosis 1+, Prothrombin Time 15.1H, Prothromb Time International Ratio 1.4H, Activated Partial Thromboplast Time 39H, Sodium Level 137, Potassium Level 3.4L, Chloride Level 102, Carbon Dioxide Level 21, Anion Gap 14, Blood Urea Nitrogen 120H, Creatinine 4.3H, Estimat Glomerular Filtration Rate 17.6, Glucose Level 131H, Calcium Level 8.1L , Total Bilirubin 1.0, Aspartate Amino Transf (AST/SGOT) 254H, Alanine Aminotransferase (ALT/SGPT) 174H, Alkaline Phosphatase 200H, Total Protein 5.6L , Albumin 0.8L, Globulin 4.8, Albumin/Globulin Ratio 0.2L Height (Feet): 5 Height (Inches): 5.00 Weight (Pounds): 171 General Appearance: other - on vent Cardiovascular: regular rhythm Respiratory/Chest: rhonchi - bilaterally Abdomen: soft Extremities: other - gangrene Neurologic: unresponsive Martin Yee MD Jan 14, 2020 20:44
[2020-01-14] MEDS: Atorvastatin 80mg tab GT SCH (21:26)
[2020-01-15] VITALS: BP 148/77
[2020-01-15 04:00] VITALS: BP 139/82
[2020-01-15 05:18] LABS: HEMATOCRIT 27.2 % (42.0-52.0); HEMOGLOBIN 9.8 G/DL (14.2-18.0); MEAN CORPUSCULAR VOLUME 81 FL (80-99); PLATELET COUNT 55 K/UL (150-450); RED BLOOD COUNT 3.38 M/UL (4.70-6.10); RED CELL DISTRIBUTION WIDTH 15.6 % (11.6-14.8)
[2020-01-15 05:26] LABS: ANION GAP 13 mmol/L (5-15); BLOOD UREA NITROGEN 120 mg/dL (7-18); CARBON DIOXIDE 21 MMOL/L (21-32); CHLORIDE 102 MMOL/L (98-107); CREATININE 4.2 MG/DL (0.55-1.30); POTASSIUM 4.1 MMOL/L (3.5-5.1); SODIUM 136 MMOL/L (136-145)
[2020-01-15] MEDS: Insulin NovoLOG Flexpen S/S (Mod) SUBQ SCH ×3 (05:36→17:50)
[2020-01-15] MEDS: Metoclopramide 10mg/2ml Inj IVP SCH ×3 (05:36→17:49)
[2020-01-15] MEDS: Erythromycin Ethylsuccinate 200mg/5ml Susp GT SCH ×3 (05:36→17:48)
[2020-01-15 08:00] VITALS: BP 152/94
--- NOTE | 2020-01-15 09:22 | Pulmonology Progress Note ---
Subjective ROS Limited/Unobtainable: Yes Constitutional: Reports: other - hypothermia Gastrointestinal/Abdominal: Reports: diarrhea Allergies: Coded Allergies: No Known Allergies (Unverified , 10/07/19) All Systems: reviewed and negative except above Subjective care noted on vent diarrhea rectal tube no IV access renal function poor and not improved Objective Last 24 Hour Vital Signs Date Time Temp Pulse Resp B/P (MAP) Pulse Ox O2 Delivery O2 Flow Rate FiO2 01/15/20 08:00 Mechanical Ventilator 01/15/20 08:00 40 01/15/20 08:00 96.3 71 26 152/94 (113) 99 01/15/20 08:00 69 01/15/20 07:15 69 29 40 01/15/20 04:00 Mechanical Ventilator 01/15/20 04:00 99.6 90 16 139/82 (101) 100 01/15/20 04:00 40 01/15/20 04:00 72 01/15/20 03:35 71 26 40 01/15/20 00:00 97.0 67 24 148/77 (100) 99 01/15/20 00:00 Mechanical Ventilator 01/14/20 23:43 69 25 40 01/14/20 23:31 69 01/14/20 20:00 97.2 70 25 152/83 (106) 98 01/14/20 20:00 Mechanical Ventilator 01/14/20 20:00 40 01/14/20 19:35 72 27 40 01/14/20 19:27 75 01/14/20 16:00 63 01/14/20 16:00 40 01/14/20 16:00 97.7 67 20 139/84 (102) 99 01/14/20 16:00 Mechanical Ventilator 01/14/20 15:16 63 24 40 01/14/20 12:00 97.2 65 20 145/71 (95) 99 01/14/20 12:00 Mechanical Ventilator 01/14/20 12:00 66 01/14/20 12:00 40 01/14/20 11:17 65 26 40 Intake and Output 01/14/20 01/15/20 19:00 07:00 Intake Total 37 ml 1139.5 ml Output Total 1300 ml 300 ml Balance -1263 ml 839.5 ml Intake Free Water 90 ml IV Total 642.5 ml Tube Feeding 37 ml 407 ml Output Urine Total 1300 ml 300 ml # Bowel Movements 2 5 Objective WDWN trach clear breath sounds bilaterally without rhonchi or wheeze [id number] without MRG NABS nontender no HSM no CCE poor LOC reviewed and edited Laboratory Tests 01/15/20 03:50: White Blood Count 10.0, Red Blood Count 3.38L, Hemoglobin 9.8L, Hematocrit 27.2L , Mean Corpuscular Volume 81, Mean Corpuscular Hemoglobin 29.1, Mean Corpuscular Hemoglobin Concent 36.1H, Red Cell Distribution Width 15.6H, Platelet Count 55L, Mean Platelet Volume 14.8H, Neutrophils (%) (Auto) , Lymphocytes (%) (Auto) , Monocytes (%) (Auto) , Eosinophils (%) (Auto) , Basophils (%) (Auto) , Neutrophils % (Manual) [Pending], Lymphocytes % (Manual) [Pending], Platelet Estimate [Pending], Platelet Morphology [Pending], Sodium Level 136, Potassium Level 4.1, Chloride Level 102, Carbon Dioxide Level 21, Anion Gap 13, Blood Urea Nitrogen 120H, Creatinine 4.2H, Estimat Glomerular Filtration Rate 18.1, Glucose Level 89, Calcium Level 8.0L Current Medications Medications (Trade) Dose Ordered Sig/[place] Route PRN Reason Start Time Stop Time Status Last Admin Dose Admin Acetaminophen (Tylenol) 650 mg Q4H PRN GT Temp >100.5 01/14/20 16:35 02/13/20 16:34 Acetaminophen (Tylenol) 650 mg Q4H PRN GT Mild Pain (Pain Scale 1-3) 01/14/20 16:45 02/13/20 16:44 Al Hydroxide/Mg Hydroxide (Mylanta) 30 ml QIDPRN PRN GT stomach upset 01/14/20 16:45 02/13/20 16:44 Artificial Tears (Akwa-Tears) 1 drop EVERY 12 HOURS BOTH EYES 01/14/20 21:00 02/13/20 20:59 01/14/20 18:02 Atorvastatin Calcium (Lipitor) 80 mg BEDTIME GT 01/14/20 21:00 04/13/20 20:59 01/14/20 21:26 Dextrose (Dextrose 50%) 25 ml Q30M PRN IV Hypoglycemia 01/14/20 16:45 04/13/20 16:44 Dextrose (Dextrose 50%) 50 ml Q30M PRN IV hypoglycemia 01/14/20 16:45 04/13/20 16:44 01/14/20 21:25 Erythromycin (Alexis-Ped) 50 mg Q6HR GT 01/14/20 18:00 01/21/20 17:59 01/15/20 05:36 Insulin Aspart (NovoLOG) No Dose Q6HR SUBQ 01/14/20 18:00 04/13/20 17:59 Insulin Detemir (Levemir) 25 units Q12HR SUBQ 01/14/20 21:00 04/13/20 20:59 Metoclopramide HCl (Reglan) 10 mg Q6H IVP 01/14/20 18:00 02/13/20 17:59 01/15/20 05:36 Pantoprazole (Protonix) 40 mg Q12HR IVP 01/14/20 21:00 02/13/20 20:59 01/14/20 21:26 Sodium Bicarbonate 50 ml/ Potassium Chloride 30 meq/ Dextrose 1,065 ml @ 75 mls/hr [id number] IV 01/14/20 22:00 02/13/20 21:59 01/14/20 21:26 Sodium Hypochlorite (Dakin's Half Strength) 1 applic DAILY TOPIC 01/15/20 09:00 02/14/20 08:59 Vancomycin HCl (Firvanq) 125 mg FOUR TIMES A DAY GT 01/14/20 18:00 01/21/20 17:59 01/14/20 18:01 Zinc Sulfate (Zinc Sulfate) 220 mg DAILY GT 01/15/20 09:00 04/14/20 08:59 Assessment/Plan Assessment/Plan IMPRESSION chronic respiratory failure Acute on chronic renal failure elevated K anemia GIB leukocytosis possible sepsis oral bleeding diarrhea PLAN monitor HH monitor wbc IV hydration iv antibiotics ID , GI and renal HD per renal vent as is monitor vitals hold feeds snf meds full code prognosis very poor for recovery difficult to optimize impression, plan, and exam edited and reviewed in detail care discussed with Lorenzo Chase MD Jan 15, 2020 09:22
[2020-01-15] MEDS: Dakin's 0.25% (Half Strength) 16oz TOPIC SCH (10:06)
[2020-01-15] MEDS: Levemir Flexpen SUBQ SCH ×2 (10:09→20:36)
[2020-01-15] MEDS: Zinc Sulfate 220mg GT SCH (10:10)
[2020-01-15] MEDS: Vancomycin oral 125mg/2.5ml GT SCH ×4 (10:15→20:35)
[2020-01-15] MEDS: Pantoprazole Inj IVP SCH ×2 (10:36→20:36)
--- NOTE | 2020-01-15 10:38 | Infectious Diseases Prog Note ---
"Assessment/Plan Assessment/Plan antibiotics : po vancomycin 5.29.20 - A 1. e.coli | klebsiella | pseudomonas pneumonia s/p rx 2. renal failure 3. respiratory failure 4. intracranial hemorrhage 5. paraplegia 6. leucocytosis improving 7. COVID 19 test negative x 2 8. gangrene of feet bilaterally P 1. continue po vancomycin 8 more days 2. will follow up cultures Subjective ROS Limited/Unobtainable: Yes Allergies: Coded Allergies: No Known Allergies (Unverified , 10/07/19) Objective Vital Signs Last 24 Hour Vital Signs Date Time Temp Pulse Resp B/P (MAP) Pulse Ox O2 Delivery O2 Flow Rate FiO2 01/15/20 08:00 Mechanical Ventilator 01/15/20 08:00 40 01/15/20 08:00 96.3 71 26 152/94 (113) 99 01/15/20 08:00 69 01/15/20 07:15 69 29 40 01/15/20 04:00 Mechanical Ventilator 01/15/20 04:00 99.6 90 16 139/82 (101) 100 01/15/20 04:00 40 01/15/20 04:00 72 01/15/20 03:35 71 26 40 01/15/20 00:00 97.0 67 24 148/77 (100) 99 01/15/20 00:00 Mechanical Ventilator 01/14/20 23:43 69 25 40 01/14/20 23:31 69 01/14/20 20:00 97.2 70 25 152/83 (106) 98 01/14/20 20:00 Mechanical Ventilator 01/14/20 20:00 40 01/14/20 19:35 72 27 40 01/14/20 19:27 75 01/14/20 16:00 63 01/14/20 16:00 40 01/14/20 16:00 97.7 67 20 139/84 (102) 99 01/14/20 16:00 Mechanical Ventilator 01/14/20 15:16 63 24 40 01/14/20 12:00 97.2 65 20 145/71 (95) 99 01/14/20 12:00 Mechanical Ventilator 01/14/20 12:00 66 01/14/20 12:00 40 01/14/20 11:17 65 26 40 Height (Feet): 5 Height (Inches): 5.00 Weight (Pounds): 172 HEENT: status post trach Respiratory/Chest: lungs clear Cardiovascular: normal rate, regular rhythm, no gallop/murmur Abdomen: soft, non tender, other - GT Extremities: other - + edema, necrotic feet bilaterally Laboratory Tests Test 01/15/20 03:50 White Blood Count 10.0 K/UL (4.8-10.8) Red Blood Count 3.38 M/UL (4.70-6.10) L Hemoglobin 9.8 G/DL (14.2-18.0) L Hematocrit 27.2 % (42.0-52.0) L Mean Corpuscular Volume 81 FL (80-99) Mean Corpuscular Hemoglobin 29.1 PG (27.0-31.0) Mean Corpuscular Hemoglobin Concent 36.1 G/DL (32.0-36.0) H Red Cell Distribution Width 15.6 % (11.6-14.8) H Platelet Count 55 K/UL (150-450) L Mean Platelet Volume 14.8 FL (6.5-10.1) H Neutrophils (%) (Auto) % (45.0-75.0) Lymphocytes (%) (Auto) % (20.0-45.0) Monocytes (%) (Auto) % (1.0-10.0) Eosinophils (%) (Auto) % (0.0-3.0) Basophils (%) (Auto) % (0.0-2.0) Differential Total Cells Counted 100 Neutrophils % (Manual) 75 % (45-75) Lymphocytes % (Manual) 9 % (20-45) L Monocytes % (Manual) 8 % (1-10) Eosinophils % (Manual) 8 % (0-3) H Basophils % (Manual) 0 % (0-2) Band Neutrophils 0 % (0-8) Platelet Estimate Decreased L Platelet Morphology Normal Polychromasia 1+ Anisocytosis 1+ Sodium Level 136 MMOL/L (136-145) Potassium Level 4.1 MMOL/L (3.5-5.1) Chloride Level 102 MMOL/L (98-107) Carbon Dioxide Level 21 MMOL/L (21-32) Anion Gap 13 mmol/L (5-15) Blood Urea Nitrogen 120 mg/dL (7-18) H Creatinine 4.2 MG/DL (0.55-1.30) H Estimat Glomerular Filtration Rate 18.1 mL/min (>60) Glucose Level 89 MG/DL (74-106) Calcium Level 8.0 MG/DL (8.5-10.1) L Current Medications Medications (Trade) Dose Ordered Sig/[place] Route PRN Reason Start Time Stop Time Status Last Admin Dose Admin Acetaminophen (Tylenol) 650 mg Q4H PRN GT Temp >100.5 01/14/20 16:35 02/13/20 16:34 Acetaminophen (Tylenol) 650 mg Q4H PRN GT Mild Pain (Pain Scale 1-3) 01/14/20 16:45 02/13/20 16:44 Al Hydroxide/Mg Hydroxide (Mylanta) 30 ml QIDPRN PRN GT stomach upset 01/14/20 16:45 02/13/20 16:44 Artificial Tears (Akwa-Tears) 1 drop EVERY 12 HOURS BOTH EYES 01/14/20 21:00 02/13/20 20:59 01/15/20 10:11 Atorvastatin Calcium (Lipitor) 80 mg BEDTIME GT 01/14/20 21:00 04/13/20 20:59 01/14/20 21:26 Dextrose (Dextrose 50%) 25 ml Q30M PRN IV Hypoglycemia 01/14/20 16:45 04/13/20 16:44 Dextrose (Dextrose 50%) 50 ml Q30M PRN IV hypoglycemia 01/14/20 16:45 04/13/20 16:44 01/14/20 21:25 Erythromycin (Alexis-Ped) 50 mg Q6HR GT 01/14/20 18:00 01/21/20 17:59 01/15/20 10:05 Insulin Aspart (NovoLOG) No Dose Q6HR SUBQ 01/14/20 18:00 04/13/20 17:59 Insulin Detemir (Levemir) 25 units Q12HR SUBQ 01/14/20 21:00 04/13/20 20:59 01/15/20 10:09 Metoclopramide HCl (Reglan) 10 mg Q6H IVP 01/14/20 18:00 02/13/20 17:59 01/15/20 05:36 Pantoprazole (Protonix) 40 mg Q12HR IVP 01/14/20 21:00 02/13/20 20:59 01/14/20 21:26 Sodium Bicarbonate 50 ml/ Potassium Chloride 30 meq/ Dextrose 1,065 ml @ 75 mls/hr [id number] IV 01/14/20 22:00 02/13/20 21:59 01/14/20 21:26 Sodium Hypochlorite (Dakin's Half Strength) 1 applic DAILY TOPIC 01/15/20 09:00 02/14/20 08:59 01/15/20 10:06 Vancomycin HCl (Firvanq) 125 mg FOUR TIMES A DAY GT 01/14/20 18:00 01/21/20 17:59 01/15/20 10:15 Zinc Sulfate (Zinc Sulfate) 220 mg DAILY GT 01/15/20 09:00 04/14/20 08:59 01/15/20 10:10 Tony Apple MD Jan 15, 2020 10:38"
[2020-01-15 12:00] VITALS: BP 151/74
--- NOTE | 2020-01-15 12:16 | General Progress Note ---
Assessment/Plan Assessment/Plan: sepsis anemia GIB thrombocytopenia hyponatremia ARF DM dysphagia with GT s/p EGD/PEG GTF low dose erythromycin reglan ppi diarrhea back on ectal tube will fu Subjective ROS Limited/Unobtainable: No Allergies: Coded Allergies: No Known Allergies (Unverified , 10/07/19) Objective Last 24 Hour Vital Signs Date Time Temp Pulse Resp B/P (MAP) Pulse Ox O2 Delivery O2 Flow Rate FiO2 01/15/20 11:15 70 26 40 01/15/20 08:00 Mechanical Ventilator 01/15/20 08:00 40 01/15/20 08:00 96.3 71 26 152/94 (113) 99 01/15/20 08:00 69 01/15/20 07:15 69 29 40 01/15/20 04:00 Mechanical Ventilator 01/15/20 04:00 99.6 90 16 139/82 (101) 100 01/15/20 04:00 40 01/15/20 04:00 72 01/15/20 03:35 71 26 40 01/15/20 00:00 97.0 67 24 148/77 (100) 99 01/15/20 00:00 Mechanical Ventilator 01/14/20 23:43 69 25 40 01/14/20 23:31 69 01/14/20 20:00 97.2 70 25 152/83 (106) 98 01/14/20 20:00 Mechanical Ventilator 01/14/20 20:00 40 01/14/20 19:35 72 27 40 01/14/20 19:27 75 01/14/20 16:00 63 01/14/20 16:00 40 01/14/20 16:00 97.7 67 20 139/84 (102) 99 01/14/20 16:00 Mechanical Ventilator 01/14/20 15:16 63 24 40 Intake and Output 01/14/20 01/15/20 18:59 06:59 Intake Total 105 ml 1176.5 ml Output Total 1300 ml 300 ml Balance -1195 ml 876.5 ml Intake Free Water 90 ml IV Total 75 ml 642.5 ml Tube Feeding 30 ml 444 ml Output Urine Total 1300 ml 300 ml # Bowel Movements 2 5 Laboratory Tests 01/15/20 03:50: White Blood Count 10.0, Red Blood Count 3.38L, Hemoglobin 9.8L, Hematocrit 27.2L , Mean Corpuscular Volume 81, Mean Corpuscular Hemoglobin 29.1, Mean Corpuscular Hemoglobin Concent 36.1H, Red Cell Distribution Width 15.6H, Platelet Count 55L, Mean Platelet Volume 14.8H, Neutrophils (%) (Auto) , Lymphocytes (%) (Auto) , Monocytes (%) (Auto) , Eosinophils (%) (Auto) , Basophils (%) (Auto) , Differential Total Cells Counted 100, Neutrophils % ( Manual) 75, Lymphocytes % (Manual) 9L, Monocytes % (Manual) 8, Eosinophils % ( Manual) 8H, Basophils % (Manual) 0, Band Neutrophils 0, Platelet Estimate DecreasedL, Platelet Morphology Normal, Polychromasia 1+, Anisocytosis 1+, Sodium Level 136, Potassium Level 4.1, Chloride Level 102, Carbon Dioxide Level 21, Anion Gap 13, Blood Urea Nitrogen 120H, Creatinine 4.2H, Estimat Glomerular Filtration Rate 18.1, Glucose Level 89, Calcium Level 8.0L Height (Feet): 5 Height (Inches): 5.00 Weight (Pounds): 172 General Appearance: no apparent distress EENT: normal ENT inspection Neck: supple Cardiovascular: normal rate Respiratory/Chest: decreased breath sounds Abdomen: normal bowel sounds, non tender, soft Extremities: non-tender Toni Mckenzie MD Jan 15, 2020 12:16
[2020-01-15] MEDS: SODIUM BICARBONATE IV SCH (12:26)
[2020-01-15] MEDS: POTASSIUM CHLORIDE IV SCH (12:26)
[2020-01-15] MEDS: DEXTROSE 10% IV SCH (12:26)
--- NOTE | 2020-01-15 12:46 | Hematology/Onc Progress Note ---
Assessment/Plan Assessment/Plan Assessment and recs # Thrombocytopenia - potential causes multifactorial, evaluate liver and viral etiologies to begin, also could be related to underlying medications patient has received. May be due to DIC in this case, or consumption --> Hep panel and HIV negative --> US abd to evaluate for cirrhosis and hsm --> neg for cirrhosis and hsm --> Peripheral smear ordered to evaluate for blasts /schistocytes --> abx and other meds have been reviewed --> ok for ppx if plt >50k w/ either heparin or lovenox --> Transfuse if Plt < 20k and fever, or if Plt < 10k without fever --> plt trend 41-->32-->21k-->20 -->61k-->45-->62-->51->38->55 --> plt transfusion 01/04 --> for sepsis is on abx # Anemia due to Upper GI bleed, hematuria --> no evidence of hemolysis is noted --> smear noted --> anemia panel reviewed, ferritin high --> no iron or epo needed --> po iron ok --> for hematuria as per urology --> Pending endoscopy when clear from covid19 --> hgb trend: 9.1 ->8.3->6.9-->8.1-->8.3-->7.6 -->6.6-->10.5-->9.8 --> prbc: 2 units 01/02, 01/12 # Leukocytosis due to e/coli/kleb pna --> on connor/wilma--> vanc --> wbc trend 23-->32-->17.1-->13.9-->10 # Hyperkalemia --> kayxelate as needed --> k trend # ARF (acute renal failure) --> per renal # Hyponatremia # Gram negative pneumonia # Ventilator dependent respiratory failure # intracranial hemorrhage # paraplegia # Dysphagia with gtube The timing of this note does not necessarily reflect the time of the patient was seen. Greatly appreciate consultation. Subjective Allergies: Coded Allergies: No Known Allergies (Unverified , 10/07/19) Subjective 01/03obtunded, s/p rbc x2, hgb improved to 9.1, us abd reviewed, hematuria+ 01/04 plt are better, got 1 unit pf platets today as well, plt now 61k, less gi bleed overnight, some black tarry stool noted 01/05 nv, labs noted, hgb 8.5, no hemolysis noted, no bleeding, plt 83, egd tomorrow 01/06 egd for this am, results are pending, labs noted 01/09 no major changes, labs noted, no bleeding wbc higher, on abx 01/10 sdu, wbc improving, inr 1.4, vent, h/h stable, no distress 01/11 hgb 7.6, no tx required, repeat cbc for tomorrow, on vent 01/12 remains on vent, hgb 6.6, getting 2 iunits prbc today, will need picc 01/13 trach to vent, nepro feeds ongoing, hgb improved 10.5 01/14 s/p egd w/ peg, rectal tube, no acute events, h/h stable Objective Objective Current Medications Medications (Trade) Dose Ordered Sig/[place] Route PRN Reason Start Time Stop Time Status Last Admin Dose Admin Acetaminophen (Tylenol) 650 mg Q4H PRN GT Temp >100.5 01/14/20 16:35 02/13/20 16:34 Acetaminophen (Tylenol) 650 mg Q4H PRN GT Mild Pain (Pain Scale 1-3) 01/14/20 16:45 02/13/20 16:44 Al Hydroxide/Mg Hydroxide (Mylanta) 30 ml QIDPRN PRN GT stomach upset 01/14/20 16:45 02/13/20 16:44 Artificial Tears (Akwa-Tears) 1 drop EVERY 12 HOURS BOTH EYES 01/14/20 21:00 02/13/20 20:59 01/15/20 10:11 Atorvastatin Calcium (Lipitor) 80 mg BEDTIME GT 01/14/20 21:00 04/13/20 20:59 01/14/20 21:26 Dextrose (Dextrose 50%) 25 ml Q30M PRN IV Hypoglycemia 01/14/20 16:45 04/13/20 16:44 Dextrose (Dextrose 50%) 50 ml Q30M PRN IV hypoglycemia 01/14/20 16:45 04/13/20 16:44 01/14/20 21:25 Erythromycin (Alexis-Ped) 50 mg Q6HR GT 01/14/20 18:00 01/21/20 17:59 01/15/20 10:05 Insulin Aspart (NovoLOG) No Dose Q6HR SUBQ 01/14/20 18:00 04/13/20 17:59 Insulin Detemir (Levemir) 25 units Q12HR SUBQ 01/14/20 21:00 04/13/20 20:59 01/15/20 10:09 Metoclopramide HCl (Reglan) 10 mg Q6H IVP 01/14/20 18:00 02/13/20 17:59 01/15/20 12:30 Pantoprazole (Protonix) 40 mg Q12HR IVP 01/14/20 21:00 02/13/20 20:59 01/15/20 10:36 Sodium Bicarbonate 50 ml/ Potassium Chloride 30 meq/ Dextrose 1,065 ml @ 75 mls/hr [id number] IV 01/14/20 22:00 02/13/20 21:59 01/15/20 12:26 Sodium Hypochlorite (Dakin's Half Strength) 1 applic DAILY TOPIC 01/15/20 09:00 02/14/20 08:59 01/15/20 10:06 Vancomycin HCl (Firvanq) 125 mg FOUR TIMES A DAY GT 01/14/20 18:00 01/21/20 17:59 01/15/20 12:31 Zinc Sulfate (Zinc Sulfate) 220 mg DAILY GT 01/15/20 09:00 04/14/20 08:59 01/15/20 10:10 Last 24 Hour Vital Signs Date Time Temp Pulse Resp B/P (MAP) Pulse Ox O2 Delivery O2 Flow Rate FiO2 01/15/20 12:00 Mechanical Ventilator 01/15/20 11:15 70 26 40 01/15/20 08:00 Mechanical Ventilator 01/15/20 08:00 40 01/15/20 08:00 96.3 71 26 152/94 (113) 99 01/15/20 08:00 69 01/15/20 07:15 69 29 40 01/15/20 04:00 Mechanical Ventilator 01/15/20 04:00 99.6 90 16 139/82 (101) 100 01/15/20 04:00 40 01/15/20 04:00 72 01/15/20 03:35 71 26 40 01/15/20 00:00 97.0 67 24 148/77 (100) 99 01/15/20 00:00 Mechanical Ventilator 01/14/20 23:43 69 25 40 01/14/20 23:31 69 01/14/20 20:00 97.2 70 25 152/83 (106) 98 01/14/20 20:00 Mechanical Ventilator 01/14/20 20:00 40 01/14/20 19:35 72 27 40 01/14/20 19:27 75 01/14/20 16:00 63 01/14/20 16:00 40 01/14/20 16:00 97.7 67 20 139/84 (102) 99 01/14/20 16:00 Mechanical Ventilator 01/14/20 15:16 63 24 40 01/14/20 12:00 97.2 65 20 145/71 (95) 99 01/14/20 12:00 Mechanical Ventilator 01/14/20 12:00 66 01/14/20 12:00 40 01/14/20 11:17 65 26 40 01/14/20 08:33 66 01/14/20 08:00 40 01/14/20 08:00 Mechanical Ventilator 01/14/20 08:00 97.1 68 20 145/89 (107) 100 01/14/20 07:26 67 24 40 01/14/20 05:20 76 24 40 01/14/20 04:01 70 25 40 01/14/20 04:00 96.9 70 30 137/70 (92) 100 01/14/20 04:00 68 01/14/20 04:00 40 01/14/20 04:00 Mechanical Ventilator 01/14/20 01:21 72 24 40 01/14/20 00:00 68 01/14/20 00:00 Mechanical Ventilator 01/14/20 00:00 96.6 67 25 135/75 (95) 100 01/14/20 00:00 40 01/13/20 22:54 66 24 40 01/13/20 21:05 70 24 40 01/13/20 20:00 97.0 70 23 139/74 (95) 100 01/13/20 20:00 Mechanical Ventilator 01/13/20 20:00 40 01/13/20 19:18 70 27 40 01/13/20 19:08 71 01/13/20 17:28 71 26 40 01/13/20 16:00 Mechanical Ventilator 01/13/20 16:00 40 01/13/20 16:00 97.1 71 18 122/68 (86) 99 01/13/20 16:00 70 01/13/20 14:33 72 25 40 01/13/20 13:13 71 24 40 Intake and Output 01/14/20 01/15/20 19:00 07:00 Intake Total 37 ml 1139.5 ml Output Total 1300 ml 300 ml Balance -1263 ml 839.5 ml Intake Free Water 90 ml IV Total 642.5 ml Tube Feeding 37 ml 407 ml Output Urine Total 1300 ml 300 ml # Bowel Movements 2 5 Labs Test 01/13/20 03:45 01/13/20 10:44 01/14/20 03:15 01/15/20 03:50 Sodium Level 137 MMOL/L (136-145) 137 MMOL/L (136-145) 136 MMOL/L (136-145) Potassium Level 3.0 MMOL/L (3.5-5.1) 3.4 MMOL/L (3.5-5.1) 4.1 MMOL/L (3.5-5.1) Chloride Level 103 MMOL/L (98-107) 102 MMOL/L (98-107) 102 MMOL/L (98-107) Carbon Dioxide Level 22 MMOL/L (21-32) 21 MMOL/L (21-32) 21 MMOL/L (21-32) Anion Gap 13 mmol/L (5-15) 14 mmol/L (5-15) 13 mmol/L (5-15) Blood Urea Nitrogen 122 mg/dL (7-18) 120 mg/dL (7-18) 120 mg/dL (7-18) Creatinine 4.3 MG/DL (0.55-1.30) 4.3 MG/DL (0.55-1.30) 4.2 MG/DL (0.55-1.30) Estimat Glomerular Filtration Rate 17.6 mL/min (>60) 17.6 mL/min (>60) 18.1 mL/min (>60) Glucose Level 150 MG/DL (74-106) 131 MG/DL (74-106) 89 MG/DL (74-106) Calcium Level 7.6 MG/DL (8.5-10.1) 8.1 MG/DL (8.5-10.1) 8.0 MG/DL (8.5-10.1) White Blood Count 6.8 K/UL (4.8-10.8) 9.0 K/UL (4.8-10.8) 10.0 K/UL (4.8-10.8) Red Blood Count 2.20 M/UL (4.70-6.10) 3.62 M/UL (4.70-6.10) 3.38 M/UL (4.70-6.10) Hemoglobin 6.6 G/DL (14.2-18.0) 10.5 G/DL (14.2-18.0) 9.8 G/DL (14.2-18.0) Hematocrit 18.3 % (42.0-52.0) 29.3 % (42.0-52.0) 27.2 % (42.0-52.0) Mean Corpuscular Volume 84 FL (80-99) 81 FL (80-99) 81 FL (80-99) Mean Corpuscular Hemoglobin 29.9 PG (27.0-31.0) 29.0 PG (27.0-31.0) 29.1 PG (27.0-31.0) Mean Corpuscular Hemoglobin Concent 35.8 G/DL (32.0-36.0) 35.8 G/DL (32.0-36.0) 36.1 G/DL (32.0-36.0) Red Cell Distribution Width 13.4 % (11.6-14.8) 15.2 % (11.6-14.8) 15.6 % (11.6-14.8) Platelet Count 38 K/UL (150-450) 55 K/UL (150-450) 55 K/UL (150-450) Mean Platelet Volume 15.6 FL (6.5-10.1) FL (6.5-10.1) 14.8 FL (6.5-10.1) Neutrophils (%) (Auto) % (45.0-75.0) % (45.0-75.0) % (45.0-75.0) Lymphocytes (%) (Auto) % (20.0-45.0) % (20.0-45.0) % (20.0-45.0) Monocytes (%) (Auto) % (1.0-10.0) % (1.0-10.0) % (1.0-10.0) Eosinophils (%) (Auto) % (0.0-3.0) % (0.0-3.0) % (0.0-3.0) Basophils (%) (Auto) % (0.0-2.0) % (0.0-2.0) % (0.0-2.0) Differential Total Cells Counted 100 100 100 Neutrophils % (Manual) 77 % (45-75) 80 % (45-75) 75 % (45-75) Lymphocytes % (Manual) 10 % (20-45) 4 % (20-45) 9 % (20-45) Monocytes % (Manual) 7 % (1-10) 9 % (1-10) 8 % (1-10) Eosinophils % (Manual) 6 % (0-3) 7 % (0-3) 8 % (0-3) Basophils % (Manual) 0 % (0-2) 0 % (0-2) 0 % (0-2) Band Neutrophils 0 % (0-8) 0 % (0-8) 0 % (0-8) Platelet Estimate Decreased Decreased Decreased Platelet Morphology Normal Normal Normal Hypochromasia 1+ 1+ Anisocytosis 1+ 1+ Prothrombin Time 15.1 SEC (9.30-11.50) Prothromb Time International Ratio 1.4 (0.9-1.1) Activated Partial Thromboplast Time 39 SEC (23-33) Total Bilirubin 1.0 MG/DL (0.2-1.0) Aspartate Amino Transf (AST/SGOT) 254 U/L (15-37) Alanine Aminotransferase (ALT/SGPT) 174 U/L (12-78) Alkaline Phosphatase 200 U/L (46-116) Total Protein 5.6 G/DL (6.4-8.2) Albumin 0.8 G/DL (3.4-5.0) Globulin 4.8 g/dL Albumin/Globulin Ratio 0.2 (1.0-2.7) Polychromasia 1+ Height (Feet): 5 Height (Inches): 5.00 Weight (Pounds): 172 Objective Physical Exam: Vitals: reviewed General: NAD ++obtunded HEENT: nc, at, mouth guard+ Neck: supple++trach Chest: clear breath sounds bilaterally Cardiovascular: RRR, no s3, s4 Abdomen/GI: soft, nontender, nd ++gtube, rectal tube+ Extremities: no cce, normal range of motion, ++ Spasticity in the left upper extremity. Flaccid on the right. Neuro: nonfocal : skinny+ Wilmer Turner MD Jan 15, 2020 12:46
[2020-01-15 16:00] VITALS: BP 155/75
[2020-01-15 20:00] VITALS: BP 152/76
[2020-01-15] MEDS: Atorvastatin 80mg tab GT SCH (20:36)
--- NOTE | 2020-01-15 20:46 | Surgery Progress Note ---
Surgery Progress Note Subjective Procedure Performed right femoral central venous catheter removal Additional Comments No active bleeding site okay labs noted. Tolerating tube feeds after PEG placement still with diarrhea rectal tube would not hold Discussed with medical teams plan and course of care Objective Last 24 Hour Vital Signs Date Time Temp Pulse Resp B/P (MAP) Pulse Ox O2 Delivery O2 Flow Rate FiO2 01/15/20 16:00 97.2 70 28 155/75 (101) 99 01/15/20 16:00 40 01/15/20 16:00 Mechanical Ventilator 01/15/20 16:00 69 01/15/20 14:45 70 26 40 01/15/20 12:00 96.8 69 26 151/74 (99) 99 01/15/20 12:00 40 01/15/20 12:00 Mechanical Ventilator 01/15/20 12:00 69 01/15/20 11:15 70 26 40 01/15/20 08:00 Mechanical Ventilator 01/15/20 08:00 40 01/15/20 08:00 96.3 71 26 152/94 (113) 99 01/15/20 08:00 69 01/15/20 07:15 69 29 40 01/15/20 04:00 Mechanical Ventilator 01/15/20 04:00 99.6 90 16 139/82 (101) 100 01/15/20 04:00 40 01/15/20 04:00 72 01/15/20 03:35 71 26 40 01/15/20 00:00 97.0 67 24 148/77 (100) 99 01/15/20 00:00 Mechanical Ventilator 01/14/20 23:43 69 25 40 01/14/20 23:31 69 I&O Intake and Output 01/14/20 01/15/20 19:00 07:00 Intake Total 37 ml 1251.5 ml Output Total 1300 ml 300 ml Balance -1263 ml 951.5 ml Intake Free Water 90 ml IV Total 717.5 ml Tube Feeding 37 ml 444 ml Output Urine Total 1300 ml 300 ml # Bowel Movements 2 5 Dressing: saturated Wound: other Drains: other Cardiovascular: RSR Respiratory: decreased breath sounds Abdomen: soft, present bowel sounds, non-distended Extremities: edema, no cyanosis Laboratory Tests Test 01/15/20 03:50 White Blood Count 10.0 K/UL (4.8-10.8) Red Blood Count 3.38 M/UL (4.70-6.10) L Hemoglobin 9.8 G/DL (14.2-18.0) L Hematocrit 27.2 % (42.0-52.0) L Mean Corpuscular Volume 81 FL (80-99) Mean Corpuscular Hemoglobin 29.1 PG (27.0-31.0) Mean Corpuscular Hemoglobin Concent 36.1 G/DL (32.0-36.0) H Red Cell Distribution Width 15.6 % (11.6-14.8) H Platelet Count 55 K/UL (150-450) L Mean Platelet Volume 14.8 FL (6.5-10.1) H Neutrophils (%) (Auto) % (45.0-75.0) Lymphocytes (%) (Auto) % (20.0-45.0) Monocytes (%) (Auto) % (1.0-10.0) Eosinophils (%) (Auto) % (0.0-3.0) Basophils (%) (Auto) % (0.0-2.0) Differential Total Cells Counted 100 Neutrophils % (Manual) 75 % (45-75) Lymphocytes % (Manual) 9 % (20-45) L Monocytes % (Manual) 8 % (1-10) Eosinophils % (Manual) 8 % (0-3) H Basophils % (Manual) 0 % (0-2) Band Neutrophils 0 % (0-8) Platelet Estimate Decreased L Platelet Morphology Normal Polychromasia 1+ Anisocytosis 1+ Sodium Level 136 MMOL/L (136-145) Potassium Level 4.1 MMOL/L (3.5-5.1) Chloride Level 102 MMOL/L (98-107) Carbon Dioxide Level 21 MMOL/L (21-32) Anion Gap 13 mmol/L (5-15) Blood Urea Nitrogen 120 mg/dL (7-18) H Creatinine 4.2 MG/DL (0.55-1.30) H Estimat Glomerular Filtration Rate 18.1 mL/min (>60) Glucose Level 89 MG/DL (74-106) Calcium Level 8.0 MG/DL (8.5-10.1) L Plan Problems: (1) Hyponatremia (2) ARF (acute renal failure) (3) Hyperkalemia (4) Pressure sore on sacrum Assessment & Plan: Pt presented on admission with Sacral Pressure injury and Necrosis Both Both R lower ext, R foot and L foot. Generalized edema noted. Both upper ext noted to have multiple serous blisters ,some of which are weeping serous exudate. Full thickness Sacral Pressure Injury with undermined Borders. Base of wound is 75% loose necrotic tissue,25% bree. Bone exposure at base of wound. Area of necrosis noted at distal aspect of wound in space between wound and anus.Edges are macerated. Wound is malodorous.(L)9.5cm x (W)9.2cm x (D)2.9cm,undermining clockwise 10-3 by 3.8cm @12 o'clock. Scattered areas of hyperpigmentation noted to R and L clefts of buttocks. Unable to determine exudate as pt is continuously oozing large amt of semi soft black stool and leaking into wound because of close proximity to his rectum. At upper, R gluteal cheek is additional Pressure Injury with small amt Biofilm at base of wound. Edges are pink and adherent to base of wound. No exudate noted.(L)3cm x (W)2.6cm. Medially to distal Tibia,and extending to R foot is necrotic and malodorous.Wound is partially opened at posterior R tibia but is dry . L foot is necrotic and malodorous. No exudate noted. Tx.Plan: Cleanse Sacral wound with Dakin's 0.25% archana.. Loosely Pack wound with Dakin's moistened Kerlix.Apply Moisture Barrier Paste periwound.Cover with Optifoam drsg.Change Daily and PRN. Cleanse R lower ext and R foot with Dakin's 0.25% Archana. Cover wounds with ABD Pads.Wrap with Kerlix Daily and prn. Cleanse L foot Wounds with Dakin's 0.25% Archana. Cover wounds with ABD Pads and wrap with Kerlix Daily and prn. (5) Upper GI bleed Assessment & Plan: Patient with sepsis, abnormal labs, GI bleed, pending COVID eval. Labs noted. Exam reviewed. Chest x-ray noted as below. Discussed with GI. Plan for endoscopy once COVID status evaluated. Trend hemoglobin for now transfuse PRN. G-tube is functional and okay for medications and will plan tube feeds accordingly. No acute surgical intervention as patient is actively bleeding. Proton pump inhibitor recommended and Rx as written. Will follow with recommendations thank you for let me participate in patient's care plt low anemia prognosis guarded no active GI bleeding noted Status post PEG Tolerating tube feeds but still having diarrhea Difficult with rectal tube slides right out likely from spinal injury Anasarca stable No active bleeding line Free currently will monitor closely There is a tracheostomy in place. Vascularity is normal. Hazy densities in the lung bases may be layering effusions. Cardiac and mediastinal silhouette are within normal limits. The bony thorax appear unremarkable. line removed will monitor for bleeding IMPRESSION: Bibasilar hazy densities perhaps layering effusions. right fem line not functional noted manipulation as suture was dislodged. line replaced 1. Two or three gastric AVMs. 2. Ulcer with a small visible vessel, status post gold probe bipolar cauterization. DAILY ESTIMATED NEEDS: Needs based on Critical Care, Wounds, TR / 61kg 25-30 kcals/kg 8837-2403 total kcals 0.8-1.25 (increase w/ renal improvement) g protein/kg 49-76 g total protein 25-30 mL/kg 9509-5554 total fluid mLs NUTRITION DIAGNOSIS: * Swallowing difficulty R/T respiratory status, dysphagia as evidenced by trach/vent dep, PEG dep. * Increased kcal/prot intake needs R/T wound healing as evidenced by admitted w/ multiple wounds including full thickness wound @ sacrum, pressure Injury with small amt Biofilm at base of wound @ upper R gluteal cheek, necrotic wound @ medial to distal Tibia,and extending to R foot and L foot * Altered nutrition related lab R/T TR as evidenced by elev BUN (215-> 134), elev creat (5.2->4.3), low Na (124 -> wnl), elev K (6.7 -> wnl) CURRENT TF:TF HELD ENTERAL NUTRITION RECOMMENDATIONS: Nepro @ 38ml/hr x 24 hrs to provide 912ml, 1642kcal, 74g prot, 663ml free water * Once medically appropriate to feed, initiate TF -> rec Nepro at this time given TR (Creat 5.2 -> 4.3) w/ elev K upon adm * Initiate Nepro @ 18ml/hr x 6hrs, advance 10ml q 4-6 hrs as tolerated to goal rate * HOB over 30 degrees/ water flush per MD Monitor renal fxn closely, need to continue renal TF formula ADDITIONAL RECOMMENDATIONS: * Per SNF: HT=62" WT= 135lbs (12/25/19) * Monitor renal fxn and lytes (slowly improving renal fxn) * Monitor ability to resume TF- TF holding cont to be needed, consider initiating parenteral nutrition * Wound healing: add Ajay BID w/ TF order * Monitor for hypoglycemia: rec to hold ALL insulin while pt is NPO Javid Singh Jan 15, 2020 20:46
--- NOTE | 2020-01-15 20:52 | Nephrology Progress Note ---
Assessment/Plan Problem List: (1) Respiratory failure (2) ARF (acute renal failure) (3) Hyponatremia (4) Hyperkalemia (5) Upper GI bleed (6) Pressure sore on sacrum Plan dis continue iv fluids,BUN/creatinine 70/.91 11/2019, enteral hydration , BUN lower enteral fluids Subjective ROS Limited/Unobtainable: Yes Objective Objective Last 24 Hour Vital Signs Date Time Temp Pulse Resp B/P (MAP) Pulse Ox O2 Delivery O2 Flow Rate FiO2 01/15/20 20:00 Mechanical Ventilator 01/15/20 20:00 97.0 74 30 152/76 (101) 100 01/15/20 20:00 40 01/15/20 16:00 97.2 70 28 155/75 (101) 99 01/15/20 16:00 40 01/15/20 16:00 Mechanical Ventilator 01/15/20 16:00 69 01/15/20 14:45 70 26 40 01/15/20 12:00 96.8 69 26 151/74 (99) 99 01/15/20 12:00 40 01/15/20 12:00 Mechanical Ventilator 01/15/20 12:00 69 01/15/20 11:15 70 26 40 01/15/20 08:00 Mechanical Ventilator 01/15/20 08:00 40 01/15/20 08:00 96.3 71 26 152/94 (113) 99 01/15/20 08:00 69 01/15/20 07:15 69 29 40 01/15/20 04:00 Mechanical Ventilator 01/15/20 04:00 99.6 90 16 139/82 (101) 100 01/15/20 04:00 40 01/15/20 04:00 72 01/15/20 03:35 71 26 40 01/15/20 00:00 97.0 67 24 148/77 (100) 99 01/15/20 00:00 Mechanical Ventilator 01/14/20 23:43 69 25 40 01/14/20 23:31 69 Intake and Output 01/14/20 01/15/20 19:00 07:00 Intake Total 37 ml 1251.5 ml Output Total 1300 ml 300 ml Balance -1263 ml 951.5 ml Intake Free Water 90 ml IV Total 717.5 ml Tube Feeding 37 ml 444 ml Output Urine Total 1300 ml 300 ml # Bowel Movements 2 5 Laboratory Tests 01/15/20 03:50: White Blood Count 10.0, Red Blood Count 3.38L, Hemoglobin 9.8L, Hematocrit 27.2L , Mean Corpuscular Volume 81, Mean Corpuscular Hemoglobin 29.1, Mean Corpuscular Hemoglobin Concent 36.1H, Red Cell Distribution Width 15.6H, Platelet Count 55L, Mean Platelet Volume 14.8H, Neutrophils (%) (Auto) , Lymphocytes (%) (Auto) , Monocytes (%) (Auto) , Eosinophils (%) (Auto) , Basophils (%) (Auto) , Differential Total Cells Counted 100, Neutrophils % ( Manual) 75, Lymphocytes % (Manual) 9L, Monocytes % (Manual) 8, Eosinophils % ( Manual) 8H, Basophils % (Manual) 0, Band Neutrophils 0, Platelet Estimate DecreasedL, Platelet Morphology Normal, Polychromasia 1+, Anisocytosis 1+, Sodium Level 136, Potassium Level 4.1, Chloride Level 102, Carbon Dioxide Level 21, Anion Gap 13, Blood Urea Nitrogen 120H, Creatinine 4.2H, Estimat Glomerular Filtration Rate 18.1, Glucose Level 89, Calcium Level 8.0L Height (Feet): 5 Height (Inches): 5.00 Weight (Pounds): 172 General Appearance: other - on vent Cardiovascular: regular rhythm Respiratory/Chest: rhonchi - bilaterally Abdomen: soft Extremities: trace edema, other - gangrene feet Neurologic: unresponsive Martin Yee MD Jan 15, 2020 20:52
[2020-01-15] MEDS ORDERED: Dextrose 10% 1,000 ML IV SCH (21:15)
[2020-01-15] MEDS ORDERED: POTASSIUM CHLORIDE IV SCH ×4 (22:00)
[2020-01-15] MEDS ORDERED: SODIUM BICARBONATE IV SCH ×4 (22:00)
[2020-01-15] MEDS ORDERED: DEXTROSE 10% IV SCH ×4 (22:00)
[2020-01-16] VITALS: BP 103/55
[2020-01-16] MEDS: Erythromycin Ethylsuccinate 200mg/5ml Susp GT SCH ×2 (00:22→05:13)
[2020-01-16] MEDS: Metoclopramide 10mg/2ml Inj IVP SCH ×5 (00:22→23:22)
[2020-01-16 04:00] VITALS: BP 130/61
[2020-01-16 04:37] LABS: HEMOGLOBIN 9.6 G/DL (14.2-18.0); MEAN CORPUSCULAR VOLUME 81 FL (80-99); PLATELET COUNT 50 K/UL (150-450); RED BLOOD COUNT 3.34 M/UL (4.70-6.10); RED CELL DISTRIBUTION WIDTH 15.9 % (11.6-14.8); WHITE BLOOD COUNT 10.6 K/UL (4.8-10.8)
[2020-01-16] MEDS: Insulin NovoLOG Flexpen S/S (Mod) SUBQ SCH ×5 (05:13→23:22)
[2020-01-16 05:17] LABS: ANION GAP 13 mmol/L (5-15); BLOOD UREA NITROGEN 117 mg/dL (7-18); CALCIUM 8.1 MG/DL (8.5-10.1); CARBON DIOXIDE 21 MMOL/L (21-32); CHLORIDE 103 MMOL/L (98-107); CREATININE 4.3 MG/DL (0.55-1.30); POTASSIUM 4.5 MMOL/L (3.5-5.1); SODIUM 137 MMOL/L (136-145)
[2020-01-16 08:00] VITALS: BP 134/71
--- NOTE | 2020-01-16 08:04 | Pulmonology Progress Note ---
Subjective ROS Limited/Unobtainable: Yes Constitutional: Reports: other - hypothermia Gastrointestinal/Abdominal: Reports: diarrhea Allergies: Coded Allergies: No Known Allergies (Unverified , 10/07/19) All Systems: reviewed and negative except above Subjective care noted on vent rectal tube poor IV access renal function poor and not improved Objective Last 24 Hour Vital Signs Date Time Temp Pulse Resp B/P (MAP) Pulse Ox O2 Delivery O2 Flow Rate FiO2 01/16/20 04:00 40 01/16/20 04:00 Mechanical Ventilator 01/16/20 04:00 97.9 74 26 130/61 (84) 100 01/16/20 03:46 66 26 40 01/16/20 03:27 74 01/16/20 00:00 Mechanical Ventilator 01/16/20 00:00 97.5 72 25 103/55 (71) 100 01/16/20 00:00 40 01/15/20 23:53 68 24 40 01/15/20 23:28 71 01/15/20 21:01 73 24 40 01/15/20 20:00 Mechanical Ventilator 01/15/20 20:00 97.0 74 30 152/76 (101) 100 01/15/20 20:00 40 01/15/20 19:05 69 01/15/20 16:00 97.2 70 28 155/75 (101) 99 01/15/20 16:00 40 01/15/20 16:00 Mechanical Ventilator 01/15/20 16:00 69 01/15/20 14:45 70 26 40 01/15/20 12:00 96.8 69 26 151/74 (99) 99 01/15/20 12:00 40 01/15/20 12:00 Mechanical Ventilator 01/15/20 12:00 69 01/15/20 11:15 70 26 40 Intake and Output 01/15/20 01/16/20 18:59 06:59 Intake Total 1464 ml 904 ml Output Total 626 ml 700 ml Balance 838 ml 204 ml Intake Free Water 120 ml 110 ml IV Total 900 ml 570 ml Tube Feeding 444 ml 224 ml Output Urine Total 625 ml 700 ml Stool Total 1 ml # Bowel Movements 9 8 Objective WDWN trach clear breath sounds bilaterally without rhonchi or wheeze [id number] without MRG NABS nontender no HSM no CCE poor LOC reviewed and edited Laboratory Tests 01/16/20 03:40: White Blood Count 10.6, Red Blood Count 3.34L, Hemoglobin 9.6L, Hematocrit 27.0L , Mean Corpuscular Volume 81, Mean Corpuscular Hemoglobin 28.6, Mean Corpuscular Hemoglobin Concent 35.5, Red Cell Distribution Width 15.9H, Platelet Count 50L, Mean Platelet Volume 13.5H, Neutrophils (%) (Auto) , Lymphocytes (%) (Auto) , Monocytes (%) (Auto) , Eosinophils (%) (Auto) , Basophils (%) (Auto) , Neutrophils % (Manual) [Pending], Lymphocytes % (Manual) [Pending], Platelet Estimate [Pending], Platelet Morphology [Pending], Sodium Level 137, Potassium Level 4.5, Chloride Level 103, Carbon Dioxide Level 21, Anion Gap 13, Blood Urea Nitrogen 117H, Creatinine 4.3H, Estimat Glomerular Filtration Rate 17.6, Glucose Level 83, Calcium Level 8.1L Current Medications Medications (Trade) Dose Ordered Sig/[place] Route PRN Reason Start Time Stop Time Status Last Admin Dose Admin Acetaminophen (Tylenol) 650 mg Q4H PRN GT Temp >100.5 01/14/20 16:35 02/13/20 16:34 Acetaminophen (Tylenol) 650 mg Q4H PRN GT Mild Pain (Pain Scale 1-3) 01/14/20 16:45 02/13/20 16:44 Al Hydroxide/Mg Hydroxide (Mylanta) 30 ml QIDPRN PRN GT stomach upset 01/14/20 16:45 02/13/20 16:44 Artificial Tears (Akwa-Tears) 1 drop EVERY 12 HOURS BOTH EYES 01/14/20 21:00 02/13/20 20:59 01/15/20 20:35 Atorvastatin Calcium (Lipitor) 80 mg BEDTIME GT 01/14/20 21:00 04/13/20 20:59 01/15/20 20:36 Dextrose (Dextrose 50%) 25 ml Q30M PRN IV Hypoglycemia 01/14/20 16:45 04/13/20 16:44 Dextrose (Dextrose 50%) 50 ml Q30M PRN IV hypoglycemia 01/14/20 16:45 04/13/20 16:44 01/14/20 21:25 Erythromycin (Alexis-Ped) 50 mg Q6HR GT 01/14/20 18:00 01/21/20 17:59 01/16/20 05:13 Insulin Aspart (NovoLOG) No Dose Q6HR SUBQ 01/14/20 18:00 04/13/20 17:59 Insulin Detemir (Levemir) 25 units Q12HR SUBQ 01/14/20 21:00 04/13/20 20:59 01/15/20 10:09 Metoclopramide HCl (Reglan) 10 mg Q6H IVP 01/14/20 18:00 02/13/20 17:59 01/16/20 05:12 Pantoprazole (Protonix) 40 mg Q12HR IVP 01/14/20 21:00 02/13/20 20:59 01/15/20 20:36 Sodium Bicarbonate 50 ml/ Potassium Chloride 30 meq/ Dextrose 1,065 ml @ 30 mls/hr Q24H IV 01/15/20 22:00 02/14/20 21:59 01/15/20 21:51 Sodium Hypochlorite (Dakin's Half Strength) 1 applic DAILY TOPIC 01/15/20 09:00 02/14/20 08:59 01/15/20 10:06 Vancomycin HCl (Firvanq) 125 mg FOUR TIMES A DAY GT 01/14/20 18:00 01/23/20 23:59 01/15/20 20:35 Zinc Sulfate (Zinc Sulfate) 220 mg DAILY GT 01/15/20 09:00 04/14/20 08:59 01/15/20 10:10 Assessment/Plan Assessment/Plan IMPRESSION chronic respiratory failure Acute on chronic renal failure elevated K anemia GIB leukocytosis possible sepsis oral bleeding diarrhea PLAN monitor HH monitor wbc- now normal IV hydration per renal iv antibiotics ID , GI and renal HD per renal vent as is monitor vitals hold feeds snf meds full code prognosis very poor for recovery consider dc to snf if all agree impression, plan, and exam edited and reviewed in detail care discussed with Lorenzo Chase MD Jan 16, 2020 08:04
--- NOTE | 2020-01-16 08:48 | General Progress Note ---
Assessment/Plan Assessment/Plan: sepsis anemia GIB thrombocytopenia hyponatremia ARF DM dysphagia with GT s/p EGD/PEG GTF reglan ppi diarrhea back on ectal tube will fu Subjective ROS Limited/Unobtainable: No Allergies: Coded Allergies: No Known Allergies (Unverified , 10/07/19) Objective Last 24 Hour Vital Signs Date Time Temp Pulse Resp B/P (MAP) Pulse Ox O2 Delivery O2 Flow Rate FiO2 01/16/20 04:00 40 01/16/20 04:00 Mechanical Ventilator 01/16/20 04:00 97.9 74 26 130/61 (84) 100 01/16/20 03:46 66 26 40 01/16/20 03:27 74 01/16/20 00:00 Mechanical Ventilator 01/16/20 00:00 97.5 72 25 103/55 (71) 100 01/16/20 00:00 40 01/15/20 23:53 68 24 40 01/15/20 23:28 71 01/15/20 21:01 73 24 40 01/15/20 20:00 Mechanical Ventilator 01/15/20 20:00 97.0 74 30 152/76 (101) 100 01/15/20 20:00 40 01/15/20 19:05 69 01/15/20 16:00 97.2 70 28 155/75 (101) 99 01/15/20 16:00 40 01/15/20 16:00 Mechanical Ventilator 01/15/20 16:00 69 01/15/20 14:45 70 26 40 01/15/20 12:00 96.8 69 26 151/74 (99) 99 01/15/20 12:00 40 01/15/20 12:00 Mechanical Ventilator 01/15/20 12:00 69 01/15/20 11:15 70 26 40 Intake and Output 01/15/20 01/16/20 18:59 06:59 Intake Total 1464 ml 904 ml Output Total 626 ml 700 ml Balance 838 ml 204 ml Intake Free Water 120 ml 110 ml IV Total 900 ml 570 ml Tube Feeding 444 ml 224 ml Output Urine Total 625 ml 700 ml Stool Total 1 ml # Bowel Movements 9 8 Laboratory Tests 01/16/20 03:40: White Blood Count 10.6, Red Blood Count 3.34L, Hemoglobin 9.6L, Hematocrit 27.0L , Mean Corpuscular Volume 81, Mean Corpuscular Hemoglobin 28.6, Mean Corpuscular Hemoglobin Concent 35.5, Red Cell Distribution Width 15.9H, Platelet Count 50L, Mean Platelet Volume 13.5H, Neutrophils (%) (Auto) , Lymphocytes (%) (Auto) , Monocytes (%) (Auto) , Eosinophils (%) (Auto) , Basophils (%) (Auto) , Neutrophils % (Manual) [Pending], Lymphocytes % (Manual) [Pending], Platelet Estimate [Pending], Platelet Morphology [Pending], Sodium Level 137, Potassium Level 4.5, Chloride Level 103, Carbon Dioxide Level 21, Anion Gap 13, Blood Urea Nitrogen 117H, Creatinine 4.3H, Estimat Glomerular Filtration Rate 17.6, Glucose Level 83, Calcium Level 8.1L Height (Feet): 5 Height (Inches): 5.00 Weight (Pounds): 170 General Appearance: no apparent distress EENT: normal ENT inspection Neck: supple Cardiovascular: normal rate Respiratory/Chest: decreased breath sounds Abdomen: normal bowel sounds, non tender, soft Extremities: non-tender Toni Mckenzie MD Jan 16, 2020 08:48
[2020-01-16] MEDS: Dakin's 0.25% (Half Strength) 16oz TOPIC SCH (10:00)
[2020-01-16] MEDS: Vancomycin oral 125mg/2.5ml GT SCH ×4 (10:01→20:39)
[2020-01-16] MEDS: Zinc Sulfate 220mg GT SCH (10:02)
[2020-01-16] MEDS: Pantoprazole Inj IVP SCH ×2 (10:02→20:39)
[2020-01-16] MEDS: Levemir Flexpen SUBQ SCH ×2 (11:25→20:48)
--- NOTE | 2020-01-16 11:56 | Infectious Diseases Prog Note ---
Assessment/Plan Assessment/Plan A 1. E. coli, Klebsiella & Pseudomonas pneumonia 2. Acute renal failure 3. Ventilator dependent respiratory failure 4. intracranial hemorrhage 5. paraplegia 6. leucocytosis improving 7. GI bleeding 8. Anemia 9. COVID19 test X 2: negative 10- Gangrene of feet 11. Thrombocytopenia P 1. continue PO Vancomycin 2. Poor prognosis Subjective ROS Limited/Unobtainable: Yes Constitutional: Denies: fever Allergies: Coded Allergies: No Known Allergies (Unverified , 10/07/19) Objective Vital Signs Last 24 Hour Vital Signs Date Time Temp Pulse Resp B/P (MAP) Pulse Ox O2 Delivery O2 Flow Rate FiO2 01/16/20 11:02 72 24 40 01/16/20 08:00 97.2 74 24 134/71 (92) 99 01/16/20 08:00 74 01/16/20 08:00 40 01/16/20 08:00 Mechanical Ventilator 01/16/20 06:50 71 24 40 01/16/20 04:00 40 01/16/20 04:00 Mechanical Ventilator 01/16/20 04:00 97.9 74 26 130/61 (84) 100 01/16/20 03:46 66 26 40 01/16/20 03:27 74 01/16/20 00:00 Mechanical Ventilator 01/16/20 00:00 97.5 72 25 103/55 (71) 100 01/16/20 00:00 40 01/15/20 23:53 68 24 40 01/15/20 23:28 71 01/15/20 21:01 73 24 40 01/15/20 20:00 Mechanical Ventilator 01/15/20 20:00 97.0 74 30 152/76 (101) 100 01/15/20 20:00 40 01/15/20 19:05 69 01/15/20 16:00 97.2 70 28 155/75 (101) 99 01/15/20 16:00 40 01/15/20 16:00 Mechanical Ventilator 01/15/20 16:00 69 01/15/20 14:45 70 26 40 01/15/20 12:00 96.8 69 26 151/74 (99) 99 01/15/20 12:00 40 01/15/20 12:00 Mechanical Ventilator 01/15/20 12:00 69 Height (Feet): 5 Height (Inches): 5.00 Weight (Pounds): 170 HEENT: status post trach Respiratory/Chest: lungs clear, other - on ventilator Cardiovascular: normal rate Abdomen: soft, non tender, other - GT feeding Extremities: other - edema, feet gangerene Neurologic/Psychiatric: other - opens eyes Laboratory Tests Test 01/16/20 03:40 White Blood Count 10.6 K/UL (4.8-10.8) Red Blood Count 3.34 M/UL (4.70-6.10) L Hemoglobin 9.6 G/DL (14.2-18.0) L Hematocrit 27.0 % (42.0-52.0) L Mean Corpuscular Volume 81 FL (80-99) Mean Corpuscular Hemoglobin 28.6 PG (27.0-31.0) Mean Corpuscular Hemoglobin Concent 35.5 G/DL (32.0-36.0) Red Cell Distribution Width 15.9 % (11.6-14.8) H Platelet Count 50 K/UL (150-450) L Mean Platelet Volume 13.5 FL (6.5-10.1) H Neutrophils (%) (Auto) % (45.0-75.0) Lymphocytes (%) (Auto) % (20.0-45.0) Monocytes (%) (Auto) % (1.0-10.0) Eosinophils (%) (Auto) % (0.0-3.0) Basophils (%) (Auto) % (0.0-2.0) Differential Total Cells Counted 100 Neutrophils % (Manual) 74 % (45-75) Lymphocytes % (Manual) 9 % (20-45) L Monocytes % (Manual) 11 % (1-10) H Eosinophils % (Manual) 6 % (0-3) H Basophils % (Manual) 0 % (0-2) Band Neutrophils 0 % (0-8) Platelet Estimate Decreased L Platelet Morphology Giant Platelets Occasional Hypochromasia 1+ Anisocytosis 1+ Sodium Level 137 MMOL/L (136-145) Potassium Level 4.5 MMOL/L (3.5-5.1) Chloride Level 103 MMOL/L (98-107) Carbon Dioxide Level 21 MMOL/L (21-32) Anion Gap 13 mmol/L (5-15) Blood Urea Nitrogen 117 mg/dL (7-18) H Creatinine 4.3 MG/DL (0.55-1.30) H Estimat Glomerular Filtration Rate 17.6 mL/min (>60) Glucose Level 83 MG/DL (74-106) Calcium Level 8.1 MG/DL (8.5-10.1) L Current Medications Medications (Trade) Dose Ordered Sig/[place] Route PRN Reason Start Time Stop Time Status Last Admin Dose Admin Acetaminophen (Tylenol) 650 mg Q4H PRN GT Temp >100.5 01/14/20 16:35 02/13/20 16:34 Acetaminophen (Tylenol) 650 mg Q4H PRN GT Mild Pain (Pain Scale 1-3) 01/14/20 16:45 02/13/20 16:44 Al Hydroxide/Mg Hydroxide (Mylanta) 30 ml QIDPRN PRN GT stomach upset 01/14/20 16:45 02/13/20 16:44 Artificial Tears (Akwa-Tears) 1 drop EVERY 12 HOURS BOTH EYES 01/14/20 21:00 02/13/20 20:59 01/16/20 10:01 Atorvastatin Calcium (Lipitor) 80 mg BEDTIME GT 01/14/20 21:00 04/13/20 20:59 01/15/20 20:36 Dextrose (Dextrose 50%) 25 ml Q30M PRN IV Hypoglycemia 01/14/20 16:45 04/13/20 16:44 Dextrose (Dextrose 50%) 50 ml Q30M PRN IV hypoglycemia 01/14/20 16:45 04/13/20 16:44 01/14/20 21:25 Insulin Aspart (NovoLOG) No Dose Q6HR SUBQ 01/14/20 18:00 04/13/20 17:59 Insulin Detemir (Levemir) 25 units Q12HR SUBQ 01/14/20 21:00 04/13/20 20:59 01/16/20 11:25 Metoclopramide HCl (Reglan) 10 mg Q6H IVP 01/14/20 18:00 02/13/20 17:59 01/16/20 11:44 Pantoprazole (Protonix) 40 mg Q12HR IVP 01/14/20 21:00 02/13/20 20:59 01/16/20 10:02 Sodium Bicarbonate 50 ml/ Potassium Chloride 30 meq/ Dextrose 1,065 ml @ 30 mls/hr Q24H IV 01/15/20 22:00 02/14/20 21:59 01/15/20 21:51 Sodium Hypochlorite (Dakin's Half Strength) 1 applic DAILY TOPIC 01/15/20 09:00 02/14/20 08:59 01/16/20 10:00 Vancomycin HCl (Firvanq) 125 mg FOUR TIMES A DAY GT 01/14/20 18:00 01/23/20 23:59 01/16/20 10:01 Zinc Sulfate (Zinc Sulfate) 220 mg DAILY GT 01/15/20 09:00 04/14/20 08:59 01/16/20 10:02 Anastacio Bustillo MD Jan 16, 2020 11:56
[2020-01-16 12:00] VITALS: BP 123/66
--- NOTE | 2020-01-16 14:58 | Hematology/Onc Progress Note ---
Assessment/Plan Assessment/Plan Assessment and recs # Thrombocytopenia - potential causes multifactorial, evaluate liver and viral etiologies to begin, also could be related to underlying medications patient has received. May be due to DIC in this case, or consumption --> Hep panel and HIV negative --> US abd to evaluate for cirrhosis and hsm --> neg for cirrhosis and hsm --> Peripheral smear ordered to evaluate for blasts /schistocytes --> abx and other meds have been reviewed --> ok for ppx if plt >50k w/ either heparin or lovenox --> Transfuse if Plt < 20k and fever, or if Plt < 10k without fever --> plt trend 41-->32-->21k-->20 -->61k-->45-->62-->51->38->55->50 --> plt transfusion 01/04 --> for sepsis is on abx # Anemia due to Upper GI bleed, hematuria --> no evidence of hemolysis is noted --> smear noted --> anemia panel reviewed, ferritin high --> no iron or epo needed --> po iron ok --> for hematuria as per urology --> Pending endoscopy when clear from covid19 --> hgb trend: 9.1 ->8.3->6.9-->8.1-->8.3-->7.6 -->6.6-->10.5-->9.8 --> prbc: 2 units 01/02, 01/12 # Leukocytosis due to e/coli/kleb pna --> on connor/wilma--> vanc --> wbc trend 23-->32-->17.1-->13.9-->10 # Hyperkalemia --> kayxelate as needed --> k trend # ARF (acute renal failure) --> per renal # Hyponatremia # Gram negative pneumonia # Ventilator dependent respiratory failure # intracranial hemorrhage # paraplegia # Dysphagia with gtube The timing of this note does not necessarily reflect the time of the patient was seen. Greatly appreciate consultation. Subjective Endocrine: Denies: no symptoms, excessive sweating, flushing, intolerance to cold, intolerance to heat, increased hunger, increased thirst, increased urine, unexplained weight gain, unexplained weight loss, other Allergies: Coded Allergies: No Known Allergies (Unverified , 10/07/19) Subjective 01/03obtunded, s/p rbc x2, hgb improved to 9.1, us abd reviewed, hematuria+ 01/04 plt are better, got 1 unit pf platets today as well, plt now 61k, less gi bleed overnight, some black tarry stool noted 01/05 nv, labs noted, hgb 8.5, no hemolysis noted, no bleeding, plt 83, egd tomorrow 01/06 egd for this am, results are pending, labs noted 01/09 no major changes, labs noted, no bleeding wbc higher, on abx 01/10 sdu, wbc improving, inr 1.4, vent, h/h stable, no distress 01/11 hgb 7.6, no tx required, repeat cbc for tomorrow, on vent 01/12 remains on vent, hgb 6.6, getting 2 iunits prbc today, will need picc 01/13 trach to vent, nepro feeds ongoing, hgb improved 10.5 01/14 s/p egd w/ peg, rectal tube, no acute events, h/h stable 01/15 remains obtunded, minimal blood in stool, will hold off on platelet administration Objective Objective Current Medications Medications (Trade) Dose Ordered Sig/[place] Route PRN Reason Start Time Stop Time Status Last Admin Dose Admin Acetaminophen (Tylenol) 650 mg Q4H PRN GT Temp >100.5 01/14/20 16:35 02/13/20 16:34 Acetaminophen (Tylenol) 650 mg Q4H PRN GT Mild Pain (Pain Scale 1-3) 01/14/20 16:45 02/13/20 16:44 Al Hydroxide/Mg Hydroxide (Mylanta) 30 ml QIDPRN PRN GT stomach upset 01/14/20 16:45 02/13/20 16:44 Artificial Tears (Akwa-Tears) 1 drop EVERY 12 HOURS BOTH EYES 01/14/20 21:00 02/13/20 20:59 01/16/20 10:01 Atorvastatin Calcium (Lipitor) 80 mg BEDTIME GT 01/14/20 21:00 04/13/20 20:59 01/15/20 20:36 Dextrose (Dextrose 50%) 25 ml Q30M PRN IV Hypoglycemia 01/14/20 16:45 04/13/20 16:44 Dextrose (Dextrose 50%) 50 ml Q30M PRN IV hypoglycemia 01/14/20 16:45 04/13/20 16:44 01/14/20 21:25 Insulin Aspart (NovoLOG) No Dose Q6HR SUBQ 01/14/20 18:00 04/13/20 17:59 Insulin Detemir (Levemir) 25 units Q12HR SUBQ 01/14/20 21:00 04/13/20 20:59 01/16/20 11:25 Metoclopramide HCl (Reglan) 10 mg Q6H IVP 01/14/20 18:00 02/13/20 17:59 01/16/20 11:44 Pantoprazole (Protonix) 40 mg Q12HR IVP 01/14/20 21:00 02/13/20 20:59 01/16/20 10:02 Sodium Bicarbonate 50 ml/ Potassium Chloride 30 meq/ Dextrose 1,065 ml @ 30 mls/hr Q24H IV 01/15/20 22:00 02/14/20 21:59 01/15/20 21:51 Sodium Hypochlorite (Dakin's Half Strength) 1 applic DAILY TOPIC 01/15/20 09:00 02/14/20 08:59 01/16/20 10:00 Vancomycin HCl (Firvanq) 125 mg FOUR TIMES A DAY GT 01/14/20 18:00 01/23/20 23:59 01/16/20 13:56 Zinc Sulfate (Zinc Sulfate) 220 mg DAILY GT 01/15/20 09:00 04/14/20 08:59 01/16/20 10:02 Last 24 Hour Vital Signs Date Time Temp Pulse Resp B/P (MAP) Pulse Ox O2 Delivery O2 Flow Rate FiO2 01/16/20 12:00 76 01/16/20 12:00 Mechanical Ventilator 01/16/20 12:00 97.5 74 24 123/66 (85) 100 01/16/20 12:00 40 01/16/20 11:02 72 24 40 01/16/20 08:00 97.2 74 24 134/71 (92) 99 01/16/20 08:00 74 01/16/20 08:00 40 01/16/20 08:00 Mechanical Ventilator 01/16/20 06:50 71 24 40 01/16/20 04:00 40 01/16/20 04:00 Mechanical Ventilator 01/16/20 04:00 97.9 74 26 130/61 (84) 100 01/16/20 03:46 66 26 40 01/16/20 03:27 74 01/16/20 00:00 Mechanical Ventilator 01/16/20 00:00 97.5 72 25 103/55 (71) 100 01/16/20 00:00 40 01/15/20 23:53 68 24 40 01/15/20 23:28 71 01/15/20 21:01 73 24 40 01/15/20 20:00 Mechanical Ventilator 01/15/20 20:00 97.0 74 30 152/76 (101) 100 01/15/20 20:00 40 01/15/20 19:05 69 01/15/20 16:00 97.2 70 28 155/75 (101) 99 01/15/20 16:00 40 01/15/20 16:00 Mechanical Ventilator 01/15/20 16:00 69 01/15/20 14:45 70 26 40 01/15/20 12:00 96.8 69 26 151/74 (99) 99 01/15/20 12:00 40 01/15/20 12:00 Mechanical Ventilator 01/15/20 12:00 69 01/15/20 11:15 70 26 40 01/15/20 08:00 Mechanical Ventilator 01/15/20 08:00 40 01/15/20 08:00 96.3 71 26 152/94 (113) 99 01/15/20 08:00 69 01/15/20 07:15 69 29 40 01/15/20 04:00 Mechanical Ventilator 01/15/20 04:00 99.6 90 16 139/82 (101) 100 01/15/20 04:00 40 01/15/20 04:00 72 01/15/20 03:35 71 26 40 01/15/20 00:00 97.0 67 24 148/77 (100) 99 01/15/20 00:00 Mechanical Ventilator 01/14/20 23:43 69 25 40 01/14/20 23:31 69 01/14/20 20:00 97.2 70 25 152/83 (106) 98 01/14/20 20:00 Mechanical Ventilator 01/14/20 20:00 40 01/14/20 19:35 72 27 40 01/14/20 19:27 75 01/14/20 16:00 63 01/14/20 16:00 40 01/14/20 16:00 97.7 67 20 139/84 (102) 99 01/14/20 16:00 Mechanical Ventilator 01/14/20 15:16 63 24 40 Intake and Output 01/15/20 01/16/20 19:00 07:00 Intake Total 1464 ml 792 ml Output Total 626 ml 700 ml Balance 838 ml 92 ml Intake Free Water 120 ml 110 ml IV Total 900 ml 495 ml Tube Feeding 444 ml 187 ml Output Urine Total 625 ml 700 ml Stool Total 1 ml # Bowel Movements 9 8 Labs Test 01/14/20 03:15 01/15/20 03:50 01/16/20 03:40 White Blood Count 9.0 K/UL (4.8-10.8) 10.0 K/UL (4.8-10.8) 10.6 K/UL (4.8-10.8) Red Blood Count 3.62 M/UL (4.70-6.10) 3.38 M/UL (4.70-6.10) 3.34 M/UL (4.70-6.10) Hemoglobin 10.5 G/DL (14.2-18.0) 9.8 G/DL (14.2-18.0) 9.6 G/DL (14.2-18.0) Hematocrit 29.3 % (42.0-52.0) 27.2 % (42.0-52.0) 27.0 % (42.0-52.0) Mean Corpuscular Volume 81 FL (80-99) 81 FL (80-99) 81 FL (80-99) Mean Corpuscular Hemoglobin 29.0 PG (27.0-31.0) 29.1 PG (27.0-31.0) 28.6 PG (27.0-31.0) Mean Corpuscular Hemoglobin Concent 35.8 G/DL (32.0-36.0) 36.1 G/DL (32.0-36.0) 35.5 G/DL (32.0-36.0) Red Cell Distribution Width 15.2 % (11.6-14.8) 15.6 % (11.6-14.8) 15.9 % (11.6-14.8) Platelet Count 55 K/UL (150-450) 55 K/UL (150-450) 50 K/UL (150-450) Mean Platelet Volume FL (6.5-10.1) 14.8 FL (6.5-10.1) 13.5 FL (6.5-10.1) Neutrophils (%) (Auto) % (45.0-75.0) % (45.0-75.0) % (45.0-75.0) Lymphocytes (%) (Auto) % (20.0-45.0) % (20.0-45.0) % (20.0-45.0) Monocytes (%) (Auto) % (1.0-10.0) % (1.0-10.0) % (1.0-10.0) Eosinophils (%) (Auto) % (0.0-3.0) % (0.0-3.0) % (0.0-3.0) Basophils (%) (Auto) % (0.0-2.0) % (0.0-2.0) % (0.0-2.0) Differential Total Cells Counted 100 100 100 Neutrophils % (Manual) 80 % (45-75) 75 % (45-75) 74 % (45-75) Lymphocytes % (Manual) 4 % (20-45) 9 % (20-45) 9 % (20-45) Monocytes % (Manual) 9 % (1-10) 8 % (1-10) 11 % (1-10) Eosinophils % (Manual) 7 % (0-3) 8 % (0-3) 6 % (0-3) Basophils % (Manual) 0 % (0-2) 0 % (0-2) 0 % (0-2) Band Neutrophils 0 % (0-8) 0 % (0-8) 0 % (0-8) Platelet Estimate Decreased Decreased Decreased Platelet Morphology Normal Normal Hypochromasia 1+ 1+ Anisocytosis 1+ 1+ 1+ Prothrombin Time 15.1 SEC (9.30-11.50) Prothromb Time International Ratio 1.4 (0.9-1.1) Activated Partial Thromboplast Time 39 SEC (23-33) Sodium Level 137 MMOL/L (136-145) 136 MMOL/L (136-145) 137 MMOL/L (136-145) Potassium Level 3.4 MMOL/L (3.5-5.1) 4.1 MMOL/L (3.5-5.1) 4.5 MMOL/L (3.5-5.1) Chloride Level 102 MMOL/L (98-107) 102 MMOL/L (98-107) 103 MMOL/L (98-107) Carbon Dioxide Level 21 MMOL/L (21-32) 21 MMOL/L (21-32) 21 MMOL/L (21-32) Anion Gap 14 mmol/L (5-15) 13 mmol/L (5-15) 13 mmol/L (5-15) Blood Urea Nitrogen 120 mg/dL (7-18) 120 mg/dL (7-18) 117 mg/dL (7-18) Creatinine 4.3 MG/DL (0.55-1.30) 4.2 MG/DL (0.55-1.30) 4.3 MG/DL (0.55-1.30) Estimat Glomerular Filtration Rate 17.6 mL/min (>60) 18.1 mL/min (>60) 17.6 mL/min (>60) Glucose Level 131 MG/DL (74-106) 89 MG/DL (74-106) 83 MG/DL (74-106) Calcium Level 8.1 MG/DL (8.5-10.1) 8.0 MG/DL (8.5-10.1) 8.1 MG/DL (8.5-10.1) Total Bilirubin 1.0 MG/DL (0.2-1.0) Aspartate Amino Transf (AST/SGOT) 254 U/L (15-37) Alanine Aminotransferase (ALT/SGPT) 174 U/L (12-78) Alkaline Phosphatase 200 U/L (46-116) Total Protein 5.6 G/DL (6.4-8.2) Albumin 0.8 G/DL (3.4-5.0) Globulin 4.8 g/dL Albumin/Globulin Ratio 0.2 (1.0-2.7) Polychromasia 1+ Giant Platelets Occasional Height (Feet): 5 Height (Inches): 5.00 Weight (Pounds): 170 Objective Physical Exam: Vitals: reviewed General: NAD ++obtunded HEENT: nc, at, mouth guard+ Neck: supple++trach Chest: clear breath sounds bilaterally Cardiovascular: RRR, no s3, s4 Abdomen/GI: soft, nontender, nd ++gtube, rectal tube+ Extremities: no cce, normal range of motion, ++ Spasticity in the left upper extremity. Flaccid on the right. Neuro: nonfocal : skinny+ Wilmer Turner MD Jan 16, 2020 14:58
[2020-01-16 16:00] VITALS: BP 141/68
--- NOTE | 2020-01-16 16:06 | Surgery Progress Note ---
Surgery Progress Note Subjective Procedure Performed right femoral central venous catheter removal Additional Comments h/h relatively stable plt low discussed with heme no active bleeding currently hold on plt transfusion trend labs Objective Last 24 Hour Vital Signs Date Time Temp Pulse Resp B/P (MAP) Pulse Ox O2 Delivery O2 Flow Rate FiO2 01/16/20 14:46 73 24 40 01/16/20 12:00 76 01/16/20 12:00 Mechanical Ventilator 01/16/20 12:00 97.5 74 24 123/66 (85) 100 01/16/20 12:00 40 01/16/20 11:02 72 24 40 01/16/20 08:00 97.2 74 24 134/71 (92) 99 01/16/20 08:00 74 01/16/20 08:00 40 01/16/20 08:00 Mechanical Ventilator 01/16/20 06:50 71 24 40 01/16/20 04:00 40 01/16/20 04:00 Mechanical Ventilator 01/16/20 04:00 97.9 74 26 130/61 (84) 100 01/16/20 03:46 66 26 40 01/16/20 03:27 74 01/16/20 00:00 Mechanical Ventilator 01/16/20 00:00 97.5 72 25 103/55 (71) 100 01/16/20 00:00 40 01/15/20 23:53 68 24 40 01/15/20 23:28 71 01/15/20 21:01 73 24 40 01/15/20 20:00 Mechanical Ventilator 01/15/20 20:00 97.0 74 30 152/76 (101) 100 01/15/20 20:00 40 01/15/20 19:05 69 I&O Intake and Output 01/15/20 01/16/20 19:00 07:00 Intake Total 1464 ml 792 ml Output Total 626 ml 700 ml Balance 838 ml 92 ml Intake Free Water 120 ml 110 ml IV Total 900 ml 495 ml Tube Feeding 444 ml 187 ml Output Urine Total 625 ml 700 ml Stool Total 1 ml # Bowel Movements 9 8 Dressing: other Wound: other Drains: other Cardiovascular: RSR Respiratory: decreased breath sounds Abdomen: soft, present bowel sounds Extremities: edema, no cyanosis Laboratory Tests Test 01/16/20 03:40 White Blood Count 10.6 K/UL (4.8-10.8) Red Blood Count 3.34 M/UL (4.70-6.10) L Hemoglobin 9.6 G/DL (14.2-18.0) L Hematocrit 27.0 % (42.0-52.0) L Mean Corpuscular Volume 81 FL (80-99) Mean Corpuscular Hemoglobin 28.6 PG (27.0-31.0) Mean Corpuscular Hemoglobin Concent 35.5 G/DL (32.0-36.0) Red Cell Distribution Width 15.9 % (11.6-14.8) H Platelet Count 50 K/UL (150-450) L Mean Platelet Volume 13.5 FL (6.5-10.1) H Neutrophils (%) (Auto) % (45.0-75.0) Lymphocytes (%) (Auto) % (20.0-45.0) Monocytes (%) (Auto) % (1.0-10.0) Eosinophils (%) (Auto) % (0.0-3.0) Basophils (%) (Auto) % (0.0-2.0) Differential Total Cells Counted 100 Neutrophils % (Manual) 74 % (45-75) Lymphocytes % (Manual) 9 % (20-45) L Monocytes % (Manual) 11 % (1-10) H Eosinophils % (Manual) 6 % (0-3) H Basophils % (Manual) 0 % (0-2) Band Neutrophils 0 % (0-8) Platelet Estimate Decreased L Platelet Morphology Giant Platelets Occasional Hypochromasia 1+ Anisocytosis 1+ Sodium Level 137 MMOL/L (136-145) Potassium Level 4.5 MMOL/L (3.5-5.1) Chloride Level 103 MMOL/L (98-107) Carbon Dioxide Level 21 MMOL/L (21-32) Anion Gap 13 mmol/L (5-15) Blood Urea Nitrogen 117 mg/dL (7-18) H Creatinine 4.3 MG/DL (0.55-1.30) H Estimat Glomerular Filtration Rate 17.6 mL/min (>60) Glucose Level 83 MG/DL (74-106) Calcium Level 8.1 MG/DL (8.5-10.1) L Plan Problems: (1) Hyponatremia (2) ARF (acute renal failure) (3) Hyperkalemia (4) Pressure sore on sacrum Assessment & Plan: Pt presented on admission with Sacral Pressure injury and Necrosis Both Both R lower ext, R foot and L foot. Generalized edema noted. Both upper ext noted to have multiple serous blisters ,some of which are weeping serous exudate. Full thickness Sacral Pressure Injury with undermined Borders. Base of wound is 75% loose necrotic tissue,25% bree. Bone exposure at base of wound. Area of necrosis noted at distal aspect of wound in space between wound and anus.Edges are macerated. Wound is malodorous.(L)9.5cm x (W)9.2cm x (D)2.9cm,undermining clockwise 10-3 by 3.8cm @12 o'clock. Scattered areas of hyperpigmentation noted to R and L clefts of buttocks. Unable to determine exudate as pt is continuously oozing large amt of semi soft black stool and leaking into wound because of close proximity to his rectum. At upper, R gluteal cheek is additional Pressure Injury with small amt Biofilm at base of wound. Edges are pink and adherent to base of wound. No exudate noted.(L)3cm x (W)2.6cm. Medially to distal Tibia,and extending to R foot is necrotic and malodorous.Wound is partially opened at posterior R tibia but is dry . L foot is necrotic and malodorous. No exudate noted. Tx.Plan: Cleanse Sacral wound with Dakin's 0.25% archana.. Loosely Pack wound with Dakin's moistened Kerlix.Apply Moisture Barrier Paste periwound.Cover with Optifoam drsg.Change Daily and PRN. Cleanse R lower ext and R foot with Dakin's 0.25% Archana. Cover wounds with ABD Pads.Wrap with Kerlix Daily and prn. Cleanse L foot Wounds with Dakin's 0.25% Archana. Cover wounds with ABD Pads and wrap with Kerlix Daily and prn. (5) Upper GI bleed Assessment & Plan: Patient with sepsis, abnormal labs, GI bleed, pending COVID eval. Labs noted. Exam reviewed. Chest x-ray noted as below. Discussed with GI. Plan for endoscopy once COVID status evaluated. Trend hemoglobin for now transfuse PRN. G-tube is functional and okay for medications and will plan tube feeds accordingly. No acute surgical intervention as patient is actively bleeding. Proton pump inhibitor recommended and Rx as written. Will follow with recommendations thank you for let me participate in patient's care plt low anemia prognosis guarded no active GI bleeding noted Status post PEG Tolerating tube feeds but still having diarrhea Difficult with rectal tube slides right out likely from spinal injury Anasarca stable No active bleeding line Free currently will monitor closely There is a tracheostomy in place. Vascularity is normal. Hazy densities in the lung bases may be layering effusions. Cardiac and mediastinal silhouette are within normal limits. The bony thorax appear unremarkable. line removed will monitor for bleeding IMPRESSION: Bibasilar hazy densities perhaps layering effusions. right fem line not functional noted manipulation as suture was dislodged. line replaced 1. Two or three gastric AVMs. 2. Ulcer with a small visible vessel, status post gold probe bipolar cauterization. DAILY ESTIMATED NEEDS: Needs based on Critical Care, Wounds, TR / 61kg 25-30 kcals/kg 8081-3157 total kcals 0.8-1.25 (increase w/ renal improvement) g protein/kg 49-76 g total protein 25-30 mL/kg 1249-9176 total fluid mLs NUTRITION DIAGNOSIS: * Swallowing difficulty R/T respiratory status, dysphagia as evidenced by trach/vent dep, PEG dep. * Increased kcal/prot intake needs R/T wound healing as evidenced by admitted w/ multiple wounds including full thickness wound @ sacrum, pressure Injury with small amt Biofilm at base of wound @ upper R gluteal cheek, necrotic wound @ medial to distal Tibia,and extending to R foot and L foot * Altered nutrition related lab R/T TR as evidenced by elev BUN (215-> 134), elev creat (5.2->4.3), low Na (124 -> wnl), elev K (6.7 -> wnl) CURRENT TF:TF HELD ENTERAL NUTRITION RECOMMENDATIONS: Nepro @ 38ml/hr x 24 hrs to provide 912ml, 1642kcal, 74g prot, 663ml free water * Once medically appropriate to feed, initiate TF -> rec Nepro at this time given TR (Creat 5.2 -> 4.3) w/ elev K upon adm * Initiate Nepro @ 18ml/hr x 6hrs, advance 10ml q 4-6 hrs as tolerated to goal rate * HOB over 30 degrees/ water flush per MD Monitor renal fxn closely, need to continue renal TF formula ADDITIONAL RECOMMENDATIONS: * Per SNF: HT=62" WT= 135lbs (12/25/19) * Monitor renal fxn and lytes (slowly improving renal fxn) * Monitor ability to resume TF- TF holding cont to be needed, consider initiating parenteral nutrition * Wound healing: add Ajay BID w/ TF order * Monitor for hypoglycemia: rec to hold ALL insulin while pt is NPO Javid Singh Jan 16, 2020 16:06
--- NOTE | 2020-01-16 19:59 | Nephrology Progress Note ---
Assessment/Plan Problem List: (1) Respiratory failure (2) ARF (acute renal failure) (3) Hyponatremia (4) Hyperkalemia (5) Upper GI bleed (6) Pressure sore on sacrum (7) Diarrhea (8) Severe malnutrition Plan diarrhea, reorder iv fluids,BUN/creatinine 70/.91 11/2019, enteral hydration , BUN lower enteral fluids Subjective ROS Limited/Unobtainable: Yes Objective Objective Last 24 Hour Vital Signs Date Time Temp Pulse Resp B/P (MAP) Pulse Ox O2 Delivery O2 Flow Rate FiO2 01/16/20 18:45 71 24 40 01/16/20 16:00 97.5 73 25 141/68 (92) 100 01/16/20 16:00 73 01/16/20 16:00 40 01/16/20 16:00 Mechanical Ventilator 01/16/20 14:46 73 24 40 01/16/20 12:00 76 01/16/20 12:00 Mechanical Ventilator 01/16/20 12:00 97.5 74 24 123/66 (85) 100 01/16/20 12:00 40 01/16/20 11:02 72 24 40 01/16/20 08:00 97.2 74 24 134/71 (92) 99 01/16/20 08:00 74 01/16/20 08:00 40 01/16/20 08:00 Mechanical Ventilator 01/16/20 06:50 71 24 40 01/16/20 04:00 40 01/16/20 04:00 Mechanical Ventilator 01/16/20 04:00 97.9 74 26 130/61 (84) 100 01/16/20 03:46 66 26 40 01/16/20 03:27 74 01/16/20 00:00 Mechanical Ventilator 01/16/20 00:00 97.5 72 25 103/55 (71) 100 01/16/20 00:00 40 01/15/20 23:53 68 24 40 01/15/20 23:28 71 01/15/20 21:01 73 24 40 01/15/20 20:00 Mechanical Ventilator 01/15/20 20:00 97.0 74 30 152/76 (101) 100 01/15/20 20:00 40 Intake and Output 01/15/20 01/16/20 19:00 07:00 Intake Total 1464 ml 792 ml Output Total 626 ml 700 ml Balance 838 ml 92 ml Intake Free Water 120 ml 110 ml IV Total 900 ml 495 ml Tube Feeding 444 ml 187 ml Output Urine Total 625 ml 700 ml Stool Total 1 ml # Bowel Movements 9 8 Laboratory Tests 01/16/20 03:40: White Blood Count 10.6, Red Blood Count 3.34L, Hemoglobin 9.6L, Hematocrit 27.0L , Mean Corpuscular Volume 81, Mean Corpuscular Hemoglobin 28.6, Mean Corpuscular Hemoglobin Concent 35.5, Red Cell Distribution Width 15.9H, Platelet Count 50L, Mean Platelet Volume 13.5H, Neutrophils (%) (Auto) , Lymphocytes (%) (Auto) , Monocytes (%) (Auto) , Eosinophils (%) (Auto) , Basophils (%) (Auto) , Differential Total Cells Counted 100, Neutrophils % ( Manual) 74, Lymphocytes % (Manual) 9L, Monocytes % (Manual) 11H, Eosinophils % ( Manual) 6H, Basophils % (Manual) 0, Band Neutrophils 0, Platelet Estimate DecreasedL, Platelet Morphology , Giant Platelets Occasional, Hypochromasia 1+, Anisocytosis 1+, Sodium Level 137, Potassium Level 4.5, Chloride Level 103, Carbon Dioxide Level 21, Anion Gap 13, Blood Urea Nitrogen 117H, Creatinine 4.3H , Estimat Glomerular Filtration Rate 17.6, Glucose Level 83, Calcium Level 8.1L Height (Feet): 5 Height (Inches): 5.00 Weight (Pounds): 170 General Appearance: lethargic, other - on vent Cardiovascular: regular rhythm Respiratory/Chest: rhonchi - bilaterally Abdomen: soft Extremities: trace edema, other - gangrene toes Neurologic: unresponsive Martin Yee MD Jan 16, 2020 19:59
[2020-01-16 20:00] VITALS: BP 126/64
[2020-01-16] MEDS: Atorvastatin 80mg tab GT SCH (20:39)
[2020-01-16] MEDS: SODIUM BICARBONATE IV SCH (21:39)
[2020-01-16] MEDS: POTASSIUM CHLORIDE IV SCH (21:39)
[2020-01-16] MEDS: DEXTROSE 10% IV SCH (21:39)
[2020-01-17] VITALS: BP 116/70
[2020-01-17 04:00] VITALS: BP 106/74
[2020-01-17] MEDS: Insulin NovoLOG Flexpen S/S (Mod) SUBQ SCH ×4 (05:44→23:32)
[2020-01-17] MEDS: SODIUM BICARBONATE IV SCH ×3 (05:46→23:30)
[2020-01-17] MEDS: DEXTROSE 10% IV SCH ×3 (05:46→23:30)
[2020-01-17] MEDS: POTASSIUM CHLORIDE IV SCH ×3 (05:46→23:30)
[2020-01-17] MEDS: Metoclopramide 10mg/2ml Inj IVP SCH ×4 (05:46→23:30)
[2020-01-17 06:54] LABS: INR 1.5 (0.9-1.1)
[2020-01-17 07:36] LABS: HEMATOCRIT 26.3 % (42.0-52.0); HEMOGLOBIN 9.3 G/DL (14.2-18.0); MEAN CORPUSCULAR VOLUME 81 FL (80-99); PLATELET COUNT 70 K/UL (150-450); RED BLOOD COUNT 3.24 M/UL (4.70-6.10); RED CELL DISTRIBUTION WIDTH 16.3 % (11.6-14.8); WHITE BLOOD COUNT 7.5 K/UL (4.8-10.8)
[2020-01-17 08:00] VITALS: BP 133/70
[2020-01-17 08:05] LABS: ALANINE AMINOTRANSFERASE 462 U/L (12-78); ALBUMIN 0.6 G/DL (3.4-5.0); ALBUMIN/GLOBULIN RATIO 0.1 (1.0-2.7); ALKALINE PHOSPHATASE 196 U/L (46-116); ANION GAP 15 mmol/L (5-15); ASPARTATE AMINO TRANSFERASE 929 U/L (15-37); BILIRUBIN,TOTAL 1.6 MG/DL (0.2-1.0); BLOOD UREA NITROGEN 121 mg/dL (7-18); CALCIUM 8.4 MG/DL (8.5-10.1); CARBON DIOXIDE 19 MMOL/L (21-32); CHLORIDE 104 MMOL/L (98-107); CREATININE 4.5 MG/DL (0.55-1.30); POTASSIUM 3.8 MMOL/L (3.5-5.1); SODIUM 138 MMOL/L (136-145)
[2020-01-17 08:07] LABS: BILIRUBIN,DIRECT 1.3 MG/DL (0.0-0.3)
[2020-01-17] MEDS: Zinc Sulfate 220mg GT SCH (08:30)
[2020-01-17] MEDS: Levemir Flexpen SUBQ SCH ×2 (08:30→20:22)
[2020-01-17] MEDS: Dakin's 0.25% (Half Strength) 16oz TOPIC SCH (08:30)
[2020-01-17] MEDS: Pantoprazole Inj IVP SCH ×2 (08:31→20:19)
[2020-01-17] MEDS: Vancomycin oral 125mg/2.5ml GT SCH ×4 (08:33→20:20)
--- NOTE | 2020-01-17 09:08 | Pulmonology Progress Note ---
Subjective ROS Limited/Unobtainable: Yes Constitutional: Denies: fever Gastrointestinal/Abdominal: Reports: diarrhea Allergies: Coded Allergies: No Known Allergies (Unverified , 10/07/19) All Systems: reviewed and negative except above Subjective care noted on vent rectal tube poor IV access renal function poor and not improved Objective Last 24 Hour Vital Signs Date Time Temp Pulse Resp B/P (MAP) Pulse Ox O2 Delivery O2 Flow Rate FiO2 01/17/20 08:00 Mechanical Ventilator 01/17/20 08:00 96.4 72 20 133/70 (91) 100 01/17/20 08:00 40 01/17/20 06:39 64 25 30 01/17/20 04:00 Mechanical Ventilator 01/17/20 04:00 97.6 72 20 106/74 (85) 100 01/17/20 04:00 40 01/17/20 03:56 67 01/17/20 03:07 67 25 35 01/17/20 00:00 Mechanical Ventilator 01/17/20 00:00 40 01/17/20 00:00 97.5 71 20 116/70 (85) 100 01/16/20 23:59 69 01/16/20 22:57 69 24 40 01/16/20 20:00 97.5 73 22 126/64 (84) 99 01/16/20 20:00 40 01/16/20 20:00 Mechanical Ventilator 01/16/20 19:24 71 01/16/20 18:45 71 24 40 01/16/20 16:00 97.5 73 25 141/68 (92) 100 01/16/20 16:00 73 01/16/20 16:00 40 01/16/20 16:00 Mechanical Ventilator 01/16/20 14:46 73 24 40 01/16/20 12:00 76 01/16/20 12:00 Mechanical Ventilator 01/16/20 12:00 97.5 74 24 123/66 (85) 100 01/16/20 12:00 40 01/16/20 11:02 72 24 40 Intake and Output 01/16/20 01/17/20 19:00 07:00 Intake Total 830 ml 1521.66 ml Output Total 500 ml 600 ml Balance 330 ml 921.66 ml Intake Free Water 110 ml 90 ml IV Total 390 ml 1101.66 ml Tube Feeding 330 ml 330 ml Output Urine Total 500 ml 600 ml # Bowel Movements 6 5 Objective WDWN trach clear breath sounds bilaterally without rhonchi or wheeze [id number] without MRG NABS nontender no HSM no CCE poor LOC reviewed and edited Laboratory Tests 01/17/20 03:30: White Blood Count 7.5, Red Blood Count 3.24L, Hemoglobin 9.3L, Hematocrit 26.3L , Mean Corpuscular Volume 81, Mean Corpuscular Hemoglobin 28.6, Mean Corpuscular Hemoglobin Concent 35.3, Red Cell Distribution Width 16.3H, Platelet Count 70L, Mean Platelet Volume 13.4H, Neutrophils (%) (Auto) , Lymphocytes (%) (Auto) , Monocytes (%) (Auto) , Eosinophils (%) (Auto) , Basophils (%) (Auto) , Neutrophils % (Manual) [Pending], Lymphocytes % (Manual) [Pending], Platelet Estimate [Pending], Platelet Morphology [Pending], Prothrombin Time 15.9H, Prothromb Time International Ratio 1.5H, Activated Partial Thromboplast Time 40H, Sodium Level 138, Potassium Level 3.8, Chloride Level 104, Carbon Dioxide Level 19L, Anion Gap 15, Blood Urea Nitrogen 121H, Creatinine 4.5H, Estimat Glomerular Filtration Rate 16.7, Glucose Level 119H, Calcium Level 8.4L, Total Bilirubin 1.6H, Direct Bilirubin 1.3H, Aspartate Amino Transf (AST/SGOT) 929H, Alanine Aminotransferase (ALT/SGPT) 462H, Alkaline Phosphatase 196H, Total Protein 5.2L, Albumin 0.6L, Globulin 4.6, Albumin/Globulin Ratio 0.1L Current Medications Medications (Trade) Dose Ordered Sig/[place] Route PRN Reason Start Time Stop Time Status Last Admin Dose Admin Acetaminophen (Tylenol) 650 mg Q4H PRN GT Temp >100.5 01/14/20 16:35 02/13/20 16:34 Acetaminophen (Tylenol) 650 mg Q4H PRN GT Mild Pain (Pain Scale 1-3) 01/14/20 16:45 02/13/20 16:44 Al Hydroxide/Mg Hydroxide (Mylanta) 30 ml QIDPRN PRN GT stomach upset 01/14/20 16:45 02/13/20 16:44 Artificial Tears (Akwa-Tears) 1 drop EVERY 12 HOURS BOTH EYES 01/14/20 21:00 02/13/20 20:59 01/17/20 08:30 Atorvastatin Calcium (Lipitor) 80 mg BEDTIME GT 01/14/20 21:00 04/13/20 20:59 01/16/20 20:39 Dextrose (Dextrose 50%) 25 ml Q30M PRN IV Hypoglycemia 01/14/20 16:45 04/13/20 16:44 Dextrose (Dextrose 50%) 50 ml Q30M PRN IV hypoglycemia 01/14/20 16:45 04/13/20 16:44 01/14/20 21:25 Insulin Aspart (NovoLOG) No Dose Q6HR SUBQ 01/14/20 18:00 04/13/20 17:59 Insulin Detemir (Levemir) 25 units Q12HR SUBQ 01/14/20 21:00 04/13/20 20:59 01/16/20 11:25 Metoclopramide HCl (Reglan) 10 mg Q6H IVP 01/14/20 18:00 02/13/20 17:59 01/17/20 05:46 Pantoprazole (Protonix) 40 mg Q12HR IVP 01/14/20 21:00 02/13/20 20:59 01/17/20 08:31 Sodium Bicarbonate 50 ml/ Potassium Chloride 30 meq/ Dextrose 1,065 ml @ 125 mls/hr Q8H32M IV 01/16/20 22:00 02/15/20 21:59 01/17/20 05:46 Sodium Hypochlorite (Dakin's Half Strength) 1 applic DAILY TOPIC 01/15/20 09:00 02/14/20 08:59 01/17/20 08:30 Vancomycin HCl (Firvanq) 125 mg FOUR TIMES A DAY GT 01/14/20 18:00 01/23/20 23:59 01/17/20 08:33 Zinc Sulfate (Zinc Sulfate) 220 mg DAILY GT 01/15/20 09:00 04/14/20 08:59 01/17/20 08:30 Assessment/Plan Assessment/Plan IMPRESSION chronic respiratory failure Acute on chronic renal failure elevated K anemia GIB leukocytosis possible sepsis oral bleeding diarrhea PLAN IV hydration per renal iv antibiotics ID , GI and renal HD per renal vent as is monitor vitals hold feeds snf meds full code prognosis very poor for recovery consider dc to snf if all agree; per renal- will await until monday impression, plan, and exam edited and reviewed in detail care discussed with Lorenzo Chase MD Jan 17, 2020 09:08
--- NOTE | 2020-01-17 10:10 | General Progress Note ---
Assessment/Plan Assessment/Plan: sepsis anemia GIB thrombocytopenia hyponatremia ARF DM dysphagia with GT s/p EGD/PEG GTF reglan>>> will decrease to 5 mg add imodium prn ppi repeat LFTS>>> ? shock liver will fu Subjective ROS Limited/Unobtainable: No Allergies: Coded Allergies: No Known Allergies (Unverified , 10/07/19) Objective Last 24 Hour Vital Signs Date Time Temp Pulse Resp B/P (MAP) Pulse Ox O2 Delivery O2 Flow Rate FiO2 01/17/20 08:00 Mechanical Ventilator 01/17/20 08:00 96.4 72 20 133/70 (91) 100 01/17/20 08:00 64 01/17/20 08:00 40 01/17/20 06:39 64 25 30 01/17/20 04:00 Mechanical Ventilator 01/17/20 04:00 97.6 72 20 106/74 (85) 100 01/17/20 04:00 40 01/17/20 03:56 67 01/17/20 03:07 67 25 35 01/17/20 00:00 Mechanical Ventilator 01/17/20 00:00 40 01/17/20 00:00 97.5 71 20 116/70 (85) 100 01/16/20 23:59 69 01/16/20 22:57 69 24 40 01/16/20 20:00 97.5 73 22 126/64 (84) 99 01/16/20 20:00 40 01/16/20 20:00 Mechanical Ventilator 01/16/20 19:24 71 01/16/20 18:45 71 24 40 01/16/20 16:00 97.5 73 25 141/68 (92) 100 01/16/20 16:00 73 01/16/20 16:00 40 01/16/20 16:00 Mechanical Ventilator 01/16/20 14:46 73 24 40 01/16/20 12:00 76 01/16/20 12:00 Mechanical Ventilator 01/16/20 12:00 97.5 74 24 123/66 (85) 100 01/16/20 12:00 40 01/16/20 11:02 72 24 40 Intake and Output 01/16/20 01/17/20 19:00 07:00 Intake Total 830 ml 1521.66 ml Output Total 500 ml 600 ml Balance 330 ml 921.66 ml Intake Free Water 110 ml 90 ml IV Total 390 ml 1101.66 ml Tube Feeding 330 ml 330 ml Output Urine Total 500 ml 600 ml # Bowel Movements 6 5 Laboratory Tests 01/17/20 03:30: White Blood Count 7.5, Red Blood Count 3.24L, Hemoglobin 9.3L, Hematocrit 26.3L , Mean Corpuscular Volume 81, Mean Corpuscular Hemoglobin 28.6, Mean Corpuscular Hemoglobin Concent 35.3, Red Cell Distribution Width 16.3H, Platelet Count 70L, Mean Platelet Volume 13.4H, Neutrophils (%) (Auto) , Lymphocytes (%) (Auto) , Monocytes (%) (Auto) , Eosinophils (%) (Auto) , Basophils (%) (Auto) , Differential Total Cells Counted 100, Neutrophils % ( Manual) 79H, Lymphocytes % (Manual) 12L, Monocytes % (Manual) 8, Eosinophils % ( Manual) 1, Basophils % (Manual) 0, Band Neutrophils 0, Platelet Estimate DecreasedL, Platelet Morphology , Giant Platelets Occasional, Hypochromasia 1+, Anisocytosis 1+, Prothrombin Time 15.9H, Prothromb Time International Ratio 1.5H , Activated Partial Thromboplast Time 40H, Sodium Level 138, Potassium Level 3.8 , Chloride Level 104, Carbon Dioxide Level 19L, Anion Gap 15, Blood Urea Nitrogen 121H, Creatinine 4.5H, Estimat Glomerular Filtration Rate 16.7, Glucose Level 119H, Calcium Level 8.4L, Total Bilirubin 1.6H, Direct Bilirubin 1.3H, Aspartate Amino Transf (AST/SGOT) 929H, Alanine Aminotransferase (ALT/SGPT ) 462H, Alkaline Phosphatase 196H, Total Protein 5.2L, Albumin 0.6L, Globulin 4.6, Albumin/Globulin Ratio 0.1L Height (Feet): 5 Height (Inches): 5.00 Weight (Pounds): 171 General Appearance: no apparent distress EENT: normal ENT inspection Neck: supple Cardiovascular: normal rate Respiratory/Chest: decreased breath sounds, accessory muscle use Abdomen: normal bowel sounds, non tender, soft Extremities: non-tender Toni Mckenzie MD Jan 17, 2020 10:10
--- NOTE | 2020-01-17 11:11 | Infectious Diseases Prog Note ---
"Assessment/Plan Assessment/Plan antibiotics : po vancomycin 5.29.20 - A 1. e.coli | klebsiella | pseudomonas pneumonia s/p rx 2. renal failure 3. respiratory failure 4. intracranial hemorrhage 5. paraplegia 6. leucocytosis improving 7. COVID 19 test negative x 2 8. gangrene of feet bilaterally P 1. continue po vancomycin 6 more days 2. will follow up cultures Subjective ROS Limited/Unobtainable: Yes Allergies: Coded Allergies: No Known Allergies (Unverified , 10/07/19) Objective Vital Signs Last 24 Hour Vital Signs Date Time Temp Pulse Resp B/P (MAP) Pulse Ox O2 Delivery O2 Flow Rate FiO2 01/17/20 11:03 65 24 30 01/17/20 08:00 Mechanical Ventilator 01/17/20 08:00 96.4 72 20 133/70 (91) 100 01/17/20 08:00 64 01/17/20 08:00 40 01/17/20 06:39 64 25 30 01/17/20 04:00 Mechanical Ventilator 01/17/20 04:00 97.6 72 20 106/74 (85) 100 01/17/20 04:00 40 01/17/20 03:56 67 01/17/20 03:07 67 25 35 01/17/20 00:00 Mechanical Ventilator 01/17/20 00:00 40 01/17/20 00:00 97.5 71 20 116/70 (85) 100 01/16/20 23:59 69 01/16/20 22:57 69 24 40 01/16/20 20:00 97.5 73 22 126/64 (84) 99 01/16/20 20:00 40 01/16/20 20:00 Mechanical Ventilator 01/16/20 19:24 71 01/16/20 18:45 71 24 40 01/16/20 16:00 97.5 73 25 141/68 (92) 100 01/16/20 16:00 73 01/16/20 16:00 40 01/16/20 16:00 Mechanical Ventilator 01/16/20 14:46 73 24 40 01/16/20 12:00 76 01/16/20 12:00 Mechanical Ventilator 01/16/20 12:00 97.5 74 24 123/66 (85) 100 01/16/20 12:00 40 Height (Feet): 5 Height (Inches): 5.00 Weight (Pounds): 171 HEENT: status post trach Respiratory/Chest: lungs clear Cardiovascular: normal rate, regular rhythm, no gallop/murmur Abdomen: soft, non tender, other - GT Extremities: other - + edema, bilateral necrotic feet Laboratory Tests Test 01/17/20 03:30 White Blood Count 7.5 K/UL (4.8-10.8) Red Blood Count 3.24 M/UL (4.70-6.10) L Hemoglobin 9.3 G/DL (14.2-18.0) L Hematocrit 26.3 % (42.0-52.0) L Mean Corpuscular Volume 81 FL (80-99) Mean Corpuscular Hemoglobin 28.6 PG (27.0-31.0) Mean Corpuscular Hemoglobin Concent 35.3 G/DL (32.0-36.0) Red Cell Distribution Width 16.3 % (11.6-14.8) H Platelet Count 70 K/UL (150-450) L Mean Platelet Volume 13.4 FL (6.5-10.1) H Neutrophils (%) (Auto) % (45.0-75.0) Lymphocytes (%) (Auto) % (20.0-45.0) Monocytes (%) (Auto) % (1.0-10.0) Eosinophils (%) (Auto) % (0.0-3.0) Basophils (%) (Auto) % (0.0-2.0) Differential Total Cells Counted 100 Neutrophils % (Manual) 79 % (45-75) H Lymphocytes % (Manual) 12 % (20-45) L Monocytes % (Manual) 8 % (1-10) Eosinophils % (Manual) 1 % (0-3) Basophils % (Manual) 0 % (0-2) Band Neutrophils 0 % (0-8) Platelet Estimate Decreased L Platelet Morphology Giant Platelets Occasional Hypochromasia 1+ Anisocytosis 1+ Prothrombin Time 15.9 SEC (9.30-11.50) H Prothromb Time International Ratio 1.5 (0.9-1.1) H Activated Partial Thromboplast Time 40 SEC (23-33) H Sodium Level 138 MMOL/L (136-145) Potassium Level 3.8 MMOL/L (3.5-5.1) Chloride Level 104 MMOL/L (98-107) Carbon Dioxide Level 19 MMOL/L (21-32) L Anion Gap 15 mmol/L (5-15) Blood Urea Nitrogen 121 mg/dL (7-18) H Creatinine 4.5 MG/DL (0.55-1.30) H Estimat Glomerular Filtration Rate 16.7 mL/min (>60) Glucose Level 119 MG/DL (74-106) H Calcium Level 8.4 MG/DL (8.5-10.1) L Total Bilirubin 1.6 MG/DL (0.2-1.0) H Direct Bilirubin 1.3 MG/DL (0.0-0.3) H Aspartate Amino Transf (AST/SGOT) 929 U/L (15-37) H Alanine Aminotransferase (ALT/SGPT) 462 U/L (12-78) H Alkaline Phosphatase 196 U/L (46-116) H Total Protein 5.2 G/DL (6.4-8.2) L Albumin 0.6 G/DL (3.4-5.0) L Globulin 4.6 g/dL Albumin/Globulin Ratio 0.1 (1.0-2.7) L Current Medications Medications (Trade) Dose Ordered Sig/[place] Route PRN Reason Start Time Stop Time Status Last Admin Dose Admin Acetaminophen (Tylenol) 650 mg Q4H PRN GT Temp >100.5 01/14/20 16:35 02/13/20 16:34 Acetaminophen (Tylenol) 650 mg Q4H PRN GT Mild Pain (Pain Scale 1-3) 01/14/20 16:45 02/13/20 16:44 Al Hydroxide/Mg Hydroxide (Mylanta) 30 ml QIDPRN PRN GT stomach upset 01/14/20 16:45 02/13/20 16:44 Artificial Tears (Akwa-Tears) 1 drop EVERY 12 HOURS BOTH EYES 01/14/20 21:00 02/13/20 20:59 01/17/20 08:30 Atorvastatin Calcium (Lipitor) 80 mg BEDTIME GT 01/14/20 21:00 04/13/20 20:59 01/16/20 20:39 Dextrose (Dextrose 50%) 25 ml Q30M PRN IV Hypoglycemia 01/14/20 16:45 04/13/20 16:44 Dextrose (Dextrose 50%) 50 ml Q30M PRN IV hypoglycemia 01/14/20 16:45 04/13/20 16:44 01/14/20 21:25 Insulin Aspart (NovoLOG) No Dose Q6HR SUBQ 01/14/20 18:00 04/13/20 17:59 Insulin Detemir (Levemir) 25 units Q12HR SUBQ 01/14/20 21:00 04/13/20 20:59 01/16/20 11:25 Loperamide HCl (Imodium) 2 mg Q4H PRN GT Diarrhea 01/17/20 10:30 02/16/20 10:29 01/17/20 10:54 Metoclopramide HCl (Reglan) 5 mg Q6H IVP 01/17/20 12:00 02/16/20 11:59 Pantoprazole (Protonix) 40 mg Q12HR IVP 01/14/20 21:00 02/13/20 20:59 01/17/20 08:31 Sodium Bicarbonate 50 ml/ Potassium Chloride 30 meq/ Dextrose 1,065 ml @ 125 mls/hr Q8H32M IV 01/16/20 22:00 02/15/20 21:59 01/17/20 05:46 Sodium Hypochlorite (Dakin's Half Strength) 1 applic DAILY TOPIC 01/15/20 09:00 02/14/20 08:59 01/17/20 08:30 Vancomycin HCl (Firvanq) 125 mg FOUR TIMES A DAY GT 01/14/20 18:00 01/23/20 23:59 01/17/20 08:33 Zinc Sulfate (Zinc Sulfate) 220 mg DAILY GT 01/15/20 09:00 04/14/20 08:59 01/17/20 08:30 Tony Apple MD Jan 17, 2020 11:11"
--- NOTE | 2020-01-17 11:26 | Hematology/Onc Progress Note ---
Assessment/Plan Assessment/Plan Assessment and recs # Thrombocytopenia - potential causes multifactorial, evaluate liver and viral etiologies to begin, also could be related to underlying medications patient has received. May be due to DIC in this case, or consumption --> Hep panel and HIV negative --> US abd to evaluate for cirrhosis and hsm --> neg for cirrhosis and hsm --> Peripheral smear ordered to evaluate for blasts /schistocytes --> abx and other meds have been reviewed --> ok for ppx if plt >50k w/ either heparin or lovenox --> Transfuse if Plt < 20k and fever, or if Plt < 10k without fever --> plt trend 41-->32-->21k-->20 -->61k-->45-->62-->51->38->55->50->70 --> plt transfusion 01/04 --> for sepsis is on abx # Anemia due to Upper GI bleed, hematuria --> no evidence of hemolysis is noted --> smear noted --> anemia panel reviewed, ferritin high --> no iron or epo needed --> po iron ok --> for hematuria as per urology --> Pending endoscopy when clear from covid19 --> hgb trend: 9.1 ->8.3->6.9-->8.1-->8.3-->7.6 -->6.6-->10.5-->9.8-->9.3 --> prbc: 2 units 01/02, 01/12 # Leukocytosis due to e/coli/kleb pna --> on connor/wilma--> vanc --> wbc trend 23-->32-->17.1-->13.9-->10 # Hyperkalemia --> kayxelate as needed --> k trend # ARF (acute renal failure) --> per renal # Hyponatremia # Gram negative pneumonia # Ventilator dependent respiratory failure # intracranial hemorrhage # paraplegia # Dysphagia with gtube The timing of this note does not necessarily reflect the time of the patient was seen. Greatly appreciate consultation. Subjective HEENT: Denies: no symptoms, eye pain, blurred vision, tearing, double vision, ear pain, ear discharge, nose pain, nose congestion, throat pain, throat swelling, mouth pain, mouth swelling, other Cardiovascular: Denies: no symptoms, chest pain, edema, irregular heart rate, lightheadedness, palpitations, syncope, other Respiratory: Denies: no symptoms, cough, shortness of breath, SOB with excertion, SOB at rest, sputum, wheezing, other Gastrointestinal/Abdominal: Denies: no symptoms, abdomen distended, abdominal pain, black stools, tarry stools, blood in stool, constipated, diarrhea, difficulty swallowing, nausea, poor appetite, poor fluid intake, rectal bleeding , vomiting, other Genitourinary: Denies: no symptoms, burning, discharge, frequency, flank pain, hematuria, incontinence, pain, urgency, other Neurologic/Psychiatric: Denies: no symptoms, anxiety, depressed, emotional problems, headache, numbness, paresthesia, pre-existing deficit, seizure, tingling, tremors, weakness, other Hematologic/Lymphatic: Denies: no symptoms, anemia, easy bleeding, easy bruising, adenopathy, other Allergies: Coded Allergies: No Known Allergies (Unverified , 10/07/19) Subjective 01/03obtunded, s/p rbc x2, hgb improved to 9.1, us abd reviewed, hematuria+ 01/04 plt are better, got 1 unit pf platets today as well, plt now 61k, less gi bleed overnight, some black tarry stool noted 01/05 nv, labs noted, hgb 8.5, no hemolysis noted, no bleeding, plt 83, egd tomorrow 01/06 egd for this am, results are pending, labs noted 01/09 no major changes, labs noted, no bleeding wbc higher, on abx 01/10 sdu, wbc improving, inr 1.4, vent, h/h stable, no distress 01/11 hgb 7.6, no tx required, repeat cbc for tomorrow, on vent 01/12 remains on vent, hgb 6.6, getting 2 iunits prbc today, will need picc 01/13 trach to vent, nepro feeds ongoing, hgb improved 10.5 01/14 s/p egd w/ peg, rectal tube, no acute events, h/h stable 01/15 remains obtunded, minimal blood in stool, will hold off on platelet administration 01/16 labs noted, nob leeding, meds reviewed, plt higher Objective Objective Current Medications Medications (Trade) Dose Ordered Sig/[place] Route PRN Reason Start Time Stop Time Status Last Admin Dose Admin Acetaminophen (Tylenol) 650 mg Q4H PRN GT Temp >100.5 01/14/20 16:35 02/13/20 16:34 Acetaminophen (Tylenol) 650 mg Q4H PRN GT Mild Pain (Pain Scale 1-3) 01/14/20 16:45 02/13/20 16:44 Al Hydroxide/Mg Hydroxide (Mylanta) 30 ml QIDPRN PRN GT stomach upset 01/14/20 16:45 02/13/20 16:44 Artificial Tears (Akwa-Tears) 1 drop EVERY 12 HOURS BOTH EYES 01/14/20 21:00 02/13/20 20:59 01/17/20 08:30 Atorvastatin Calcium (Lipitor) 80 mg BEDTIME GT 01/14/20 21:00 04/13/20 20:59 01/16/20 20:39 Dextrose (Dextrose 50%) 25 ml Q30M PRN IV Hypoglycemia 01/14/20 16:45 04/13/20 16:44 Dextrose (Dextrose 50%) 50 ml Q30M PRN IV hypoglycemia 01/14/20 16:45 04/13/20 16:44 01/14/20 21:25 Insulin Aspart (NovoLOG) No Dose Q6HR SUBQ 01/14/20 18:00 04/13/20 17:59 Insulin Detemir (Levemir) 25 units Q12HR SUBQ 01/14/20 21:00 04/13/20 20:59 01/16/20 11:25 Loperamide HCl (Imodium) 2 mg Q4H PRN GT Diarrhea 01/17/20 10:30 02/16/20 10:29 01/17/20 10:54 Metoclopramide HCl (Reglan) 5 mg Q6H IVP 01/17/20 12:00 02/16/20 11:59 Pantoprazole (Protonix) 40 mg Q12HR IVP 01/14/20 21:00 02/13/20 20:59 01/17/20 08:31 Sodium Bicarbonate 50 ml/ Potassium Chloride 30 meq/ Dextrose 1,065 ml @ 125 mls/hr Q8H32M IV 01/16/20 22:00 02/15/20 21:59 01/17/20 05:46 Sodium Hypochlorite (Dakin's Half Strength) 1 applic DAILY TOPIC 01/15/20 09:00 02/14/20 08:59 01/17/20 08:30 Vancomycin HCl (Firvanq) 125 mg FOUR TIMES A DAY GT 01/14/20 18:00 01/23/20 23:59 01/17/20 08:33 Zinc Sulfate (Zinc Sulfate) 220 mg DAILY GT 01/15/20 09:00 04/14/20 08:59 01/17/20 08:30 Last 24 Hour Vital Signs Date Time Temp Pulse Resp B/P (MAP) Pulse Ox O2 Delivery O2 Flow Rate FiO2 01/17/20 11:03 65 24 30 01/17/20 08:00 Mechanical Ventilator 01/17/20 08:00 96.4 72 20 133/70 (91) 100 01/17/20 08:00 64 01/17/20 08:00 40 01/17/20 06:39 64 25 30 01/17/20 04:00 Mechanical Ventilator 01/17/20 04:00 97.6 72 20 106/74 (85) 100 01/17/20 04:00 40 01/17/20 03:56 67 01/17/20 03:07 67 25 35 01/17/20 00:00 Mechanical Ventilator 01/17/20 00:00 40 01/17/20 00:00 97.5 71 20 116/70 (85) 100 01/16/20 23:59 69 01/16/20 22:57 69 24 40 01/16/20 20:00 97.5 73 22 126/64 (84) 99 01/16/20 20:00 40 01/16/20 20:00 Mechanical Ventilator 01/16/20 19:24 71 01/16/20 18:45 71 24 40 01/16/20 16:00 97.5 73 25 141/68 (92) 100 01/16/20 16:00 73 01/16/20 16:00 40 01/16/20 16:00 Mechanical Ventilator 01/16/20 14:46 73 24 40 01/16/20 12:00 76 01/16/20 12:00 Mechanical Ventilator 01/16/20 12:00 97.5 74 24 123/66 (85) 100 01/16/20 12:00 40 01/16/20 11:02 72 24 40 01/16/20 08:00 97.2 74 24 134/71 (92) 99 01/16/20 08:00 74 01/16/20 08:00 40 01/16/20 08:00 Mechanical Ventilator 01/16/20 06:50 71 24 40 01/16/20 04:00 40 01/16/20 04:00 Mechanical Ventilator 01/16/20 04:00 97.9 74 26 130/61 (84) 100 01/16/20 03:46 66 26 40 01/16/20 03:27 74 01/16/20 00:00 Mechanical Ventilator 01/16/20 00:00 97.5 72 25 103/55 (71) 100 01/16/20 00:00 40 01/15/20 23:53 68 24 40 01/15/20 23:28 71 01/15/20 21:01 73 24 40 01/15/20 20:00 Mechanical Ventilator 01/15/20 20:00 97.0 74 30 152/76 (101) 100 01/15/20 20:00 40 01/15/20 19:05 69 01/15/20 16:00 97.2 70 28 155/75 (101) 99 01/15/20 16:00 40 01/15/20 16:00 Mechanical Ventilator 01/15/20 16:00 69 01/15/20 14:45 70 26 40 01/15/20 12:00 96.8 69 26 151/74 (99) 99 01/15/20 12:00 40 01/15/20 12:00 Mechanical Ventilator 01/15/20 12:00 69 Intake and Output 01/16/20 01/17/20 19:00 07:00 Intake Total 830 ml 1521.66 ml Output Total 500 ml 600 ml Balance 330 ml 921.66 ml Intake Free Water 110 ml 90 ml IV Total 390 ml 1101.66 ml Tube Feeding 330 ml 330 ml Output Urine Total 500 ml 600 ml # Bowel Movements 6 5 Labs Test 01/15/20 03:50 01/16/20 03:40 01/17/20 03:30 White Blood Count 10.0 K/UL (4.8-10.8) 10.6 K/UL (4.8-10.8) 7.5 K/UL (4.8-10.8) Red Blood Count 3.38 M/UL (4.70-6.10) 3.34 M/UL (4.70-6.10) 3.24 M/UL (4.70-6.10) Hemoglobin 9.8 G/DL (14.2-18.0) 9.6 G/DL (14.2-18.0) 9.3 G/DL (14.2-18.0) Hematocrit 27.2 % (42.0-52.0) 27.0 % (42.0-52.0) 26.3 % (42.0-52.0) Mean Corpuscular Volume 81 FL (80-99) 81 FL (80-99) 81 FL (80-99) Mean Corpuscular Hemoglobin 29.1 PG (27.0-31.0) 28.6 PG (27.0-31.0) 28.6 PG (27.0-31.0) Mean Corpuscular Hemoglobin Concent 36.1 G/DL (32.0-36.0) 35.5 G/DL (32.0-36.0) 35.3 G/DL (32.0-36.0) Red Cell Distribution Width 15.6 % (11.6-14.8) 15.9 % (11.6-14.8) 16.3 % (11.6-14.8) Platelet Count 55 K/UL (150-450) 50 K/UL (150-450) 70 K/UL (150-450) Mean Platelet Volume 14.8 FL (6.5-10.1) 13.5 FL (6.5-10.1) 13.4 FL (6.5-10.1) Neutrophils (%) (Auto) % (45.0-75.0) % (45.0-75.0) % (45.0-75.0) Lymphocytes (%) (Auto) % (20.0-45.0) % (20.0-45.0) % (20.0-45.0) Monocytes (%) (Auto) % (1.0-10.0) % (1.0-10.0) % (1.0-10.0) Eosinophils (%) (Auto) % (0.0-3.0) % (0.0-3.0) % (0.0-3.0) Basophils (%) (Auto) % (0.0-2.0) % (0.0-2.0) % (0.0-2.0) Differential Total Cells Counted 100 100 100 Neutrophils % (Manual) 75 % (45-75) 74 % (45-75) 79 % (45-75) Lymphocytes % (Manual) 9 % (20-45) 9 % (20-45) 12 % (20-45) Monocytes % (Manual) 8 % (1-10) 11 % (1-10) 8 % (1-10) Eosinophils % (Manual) 8 % (0-3) 6 % (0-3) 1 % (0-3) Basophils % (Manual) 0 % (0-2) 0 % (0-2) 0 % (0-2) Band Neutrophils 0 % (0-8) 0 % (0-8) 0 % (0-8) Platelet Estimate Decreased Decreased Decreased Platelet Morphology Normal Polychromasia 1+ Anisocytosis 1+ 1+ 1+ Sodium Level 136 MMOL/L (136-145) 137 MMOL/L (136-145) 138 MMOL/L (136-145) Potassium Level 4.1 MMOL/L (3.5-5.1) 4.5 MMOL/L (3.5-5.1) 3.8 MMOL/L (3.5-5.1) Chloride Level 102 MMOL/L (98-107) 103 MMOL/L (98-107) 104 MMOL/L (98-107) Carbon Dioxide Level 21 MMOL/L (21-32) 21 MMOL/L (21-32) 19 MMOL/L (21-32) Anion Gap 13 mmol/L (5-15) 13 mmol/L (5-15) 15 mmol/L (5-15) Blood Urea Nitrogen 120 mg/dL (7-18) 117 mg/dL (7-18) 121 mg/dL (7-18) Creatinine 4.2 MG/DL (0.55-1.30) 4.3 MG/DL (0.55-1.30) 4.5 MG/DL (0.55-1.30) Estimat Glomerular Filtration Rate 18.1 mL/min (>60) 17.6 mL/min (>60) 16.7 mL/min (>60) Glucose Level 89 MG/DL (74-106) 83 MG/DL (74-106) 119 MG/DL (74-106) Calcium Level 8.0 MG/DL (8.5-10.1) 8.1 MG/DL (8.5-10.1) 8.4 MG/DL (8.5-10.1) Giant Platelets Occasional Occasional Hypochromasia 1+ 1+ Prothrombin Time 15.9 SEC (9.30-11.50) Prothromb Time International Ratio 1.5 (0.9-1.1) Activated Partial Thromboplast Time 40 SEC (23-33) Total Bilirubin 1.6 MG/DL (0.2-1.0) Direct Bilirubin 1.3 MG/DL (0.0-0.3) Aspartate Amino Transf (AST/SGOT) 929 U/L (15-37) Alanine Aminotransferase (ALT/SGPT) 462 U/L (12-78) Alkaline Phosphatase 196 U/L (46-116) Total Protein 5.2 G/DL (6.4-8.2) Albumin 0.6 G/DL (3.4-5.0) Globulin 4.6 g/dL Albumin/Globulin Ratio 0.1 (1.0-2.7) Height (Feet): 5 Height (Inches): 5.00 Weight (Pounds): 171 Objective Physical Exam: Vitals: reviewed General: NAD ++obtunded HEENT: nc, at, mouth guard+ Neck: supple++trach Chest: clear breath sounds bilaterally Cardiovascular: RRR, no s3, s4 Abdomen/GI: soft, nontender, nd ++gtube, rectal tube+ Extremities: no cce, normal range of motion, ++ Spasticity in the left upper extremity. Flaccid on the right. Neuro: nonfocal : skinny+ Wilmer Turner MD Jan 17, 2020 11:26
[2020-01-17 12:59] VITALS: BP 125/71
--- NOTE | 2020-01-17 15:11 | Surgery Progress Note ---
Surgery Progress Note Subjective Procedure Performed right femoral central venous catheter removal Additional Comments hb stable plt improved exam unchanged ill appearing Objective Last 24 Hour Vital Signs Date Time Temp Pulse Resp B/P (MAP) Pulse Ox O2 Delivery O2 Flow Rate FiO2 01/17/20 12:59 96.4 65 20 125/71 (89) 100 01/17/20 12:00 40 01/17/20 12:00 66 01/17/20 12:00 Mechanical Ventilator 01/17/20 11:03 65 24 30 01/17/20 08:00 Mechanical Ventilator 01/17/20 08:00 96.4 72 20 133/70 (91) 100 01/17/20 08:00 64 01/17/20 08:00 40 01/17/20 06:39 64 25 30 01/17/20 04:00 Mechanical Ventilator 01/17/20 04:00 97.6 72 20 106/74 (85) 100 01/17/20 04:00 40 01/17/20 03:56 67 01/17/20 03:07 67 25 35 01/17/20 00:00 Mechanical Ventilator 01/17/20 00:00 40 01/17/20 00:00 97.5 71 20 116/70 (85) 100 01/16/20 23:59 69 01/16/20 22:57 69 24 40 01/16/20 20:00 97.5 73 22 126/64 (84) 99 01/16/20 20:00 40 01/16/20 20:00 Mechanical Ventilator 01/16/20 19:24 71 01/16/20 18:45 71 24 40 01/16/20 16:00 97.5 73 25 141/68 (92) 100 01/16/20 16:00 73 01/16/20 16:00 40 01/16/20 16:00 Mechanical Ventilator I&O Intake and Output 01/16/20 01/17/20 19:00 07:00 Intake Total 830 ml 1521.66 ml Output Total 500 ml 600 ml Balance 330 ml 921.66 ml Intake Free Water 110 ml 90 ml IV Total 390 ml 1101.66 ml Tube Feeding 330 ml 330 ml Output Urine Total 500 ml 600 ml # Bowel Movements 6 5 Dressing: other Wound: other Drains: other Cardiovascular: RSR Respiratory: decreased breath sounds Abdomen: soft, present bowel sounds Extremities: edema, no cyanosis Laboratory Tests Test 01/17/20 03:30 White Blood Count 7.5 K/UL (4.8-10.8) Red Blood Count 3.24 M/UL (4.70-6.10) L Hemoglobin 9.3 G/DL (14.2-18.0) L Hematocrit 26.3 % (42.0-52.0) L Mean Corpuscular Volume 81 FL (80-99) Mean Corpuscular Hemoglobin 28.6 PG (27.0-31.0) Mean Corpuscular Hemoglobin Concent 35.3 G/DL (32.0-36.0) Red Cell Distribution Width 16.3 % (11.6-14.8) H Platelet Count 70 K/UL (150-450) L Mean Platelet Volume 13.4 FL (6.5-10.1) H Neutrophils (%) (Auto) % (45.0-75.0) Lymphocytes (%) (Auto) % (20.0-45.0) Monocytes (%) (Auto) % (1.0-10.0) Eosinophils (%) (Auto) % (0.0-3.0) Basophils (%) (Auto) % (0.0-2.0) Differential Total Cells Counted 100 Neutrophils % (Manual) 79 % (45-75) H Lymphocytes % (Manual) 12 % (20-45) L Monocytes % (Manual) 8 % (1-10) Eosinophils % (Manual) 1 % (0-3) Basophils % (Manual) 0 % (0-2) Band Neutrophils 0 % (0-8) Platelet Estimate Decreased L Platelet Morphology Giant Platelets Occasional Hypochromasia 1+ Anisocytosis 1+ Prothrombin Time 15.9 SEC (9.30-11.50) H Prothromb Time International Ratio 1.5 (0.9-1.1) H Activated Partial Thromboplast Time 40 SEC (23-33) H Sodium Level 138 MMOL/L (136-145) Potassium Level 3.8 MMOL/L (3.5-5.1) Chloride Level 104 MMOL/L (98-107) Carbon Dioxide Level 19 MMOL/L (21-32) L Anion Gap 15 mmol/L (5-15) Blood Urea Nitrogen 121 mg/dL (7-18) H Creatinine 4.5 MG/DL (0.55-1.30) H Estimat Glomerular Filtration Rate 16.7 mL/min (>60) Glucose Level 119 MG/DL (74-106) H Calcium Level 8.4 MG/DL (8.5-10.1) L Total Bilirubin 1.6 MG/DL (0.2-1.0) H Direct Bilirubin 1.3 MG/DL (0.0-0.3) H Aspartate Amino Transf (AST/SGOT) 929 U/L (15-37) H Alanine Aminotransferase (ALT/SGPT) 462 U/L (12-78) H Alkaline Phosphatase 196 U/L (46-116) H Total Protein 5.2 G/DL (6.4-8.2) L Albumin 0.6 G/DL (3.4-5.0) L Globulin 4.6 g/dL Albumin/Globulin Ratio 0.1 (1.0-2.7) L Plan Problems: (1) Hyponatremia (2) ARF (acute renal failure) (3) Hyperkalemia (4) Pressure sore on sacrum Assessment & Plan: Pt presented on admission with Sacral Pressure injury and Necrosis Both Both R lower ext, R foot and L foot. Generalized edema noted. Both upper ext noted to have multiple serous blisters ,some of which are weeping serous exudate. Full thickness Sacral Pressure Injury with undermined Borders. Base of wound is 75% loose necrotic tissue,25% bree. Bone exposure at base of wound. Area of necrosis noted at distal aspect of wound in space between wound and anus.Edges are macerated. Wound is malodorous.(L)9.5cm x (W)9.2cm x (D)2.9cm,undermining clockwise 10-3 by 3.8cm @12 o'clock. Scattered areas of hyperpigmentation noted to R and L clefts of buttocks. Unable to determine exudate as pt is continuously oozing large amt of semi soft black stool and leaking into wound because of close proximity to his rectum. At upper, R gluteal cheek is additional Pressure Injury with small amt Biofilm at base of wound. Edges are pink and adherent to base of wound. No exudate noted.(L)3cm x (W)2.6cm. Medially to distal Tibia,and extending to R foot is necrotic and malodorous.Wound is partially opened at posterior R tibia but is dry . L foot is necrotic and malodorous. No exudate noted. Tx.Plan: Cleanse Sacral wound with Dakin's 0.25% archana.. Loosely Pack wound with Dakin's moistened Kerlix.Apply Moisture Barrier Paste periwound.Cover with Optifoam drsg.Change Daily and PRN. Cleanse R lower ext and R foot with Dakin's 0.25% Archana. Cover wounds with ABD Pads.Wrap with Kerlix Daily and prn. Cleanse L foot Wounds with Dakin's 0.25% Archana. Cover wounds with ABD Pads and wrap with Kerlix Daily and prn. (5) Upper GI bleed Assessment & Plan: Patient with sepsis, abnormal labs, GI bleed, pending COVID eval. Labs noted. Exam reviewed. Chest x-ray noted as below. Discussed with GI. Plan for endoscopy once COVID status evaluated. Trend hemoglobin for now transfuse PRN. G-tube is functional and okay for medications and will plan tube feeds accordingly. No acute surgical intervention as patient is actively bleeding. Proton pump inhibitor recommended and Rx as written. Will follow with recommendations thank you for let me participate in patient's care plt low anemia prognosis guarded no active GI bleeding noted Status post PEG Tolerating tube feeds but still having diarrhea Difficult with rectal tube slides right out likely from spinal injury Anasarca stable No active bleeding line Free currently will monitor closely There is a tracheostomy in place. Vascularity is normal. Hazy densities in the lung bases may be layering effusions. Cardiac and mediastinal silhouette are within normal limits. The bony thorax appear unremarkable. line removed will monitor for bleeding IMPRESSION: Bibasilar hazy densities perhaps layering effusions. right fem line not functional noted manipulation as suture was dislodged. line replaced 1. Two or three gastric AVMs. 2. Ulcer with a small visible vessel, status post gold probe bipolar cauterization. DAILY ESTIMATED NEEDS: Needs based on Critical Care, Wounds, TR / 61kg 25-30 kcals/kg 0310-7735 total kcals 0.8-1.25 (increase w/ renal improvement) g protein/kg 49-76 g total protein 25-30 mL/kg 6900-8956 total fluid mLs NUTRITION DIAGNOSIS: * Swallowing difficulty R/T respiratory status, dysphagia as evidenced by trach/vent dep, PEG dep. * Increased kcal/prot intake needs R/T wound healing as evidenced by admitted w/ multiple wounds including full thickness wound @ sacrum, pressure Injury with small amt Biofilm at base of wound @ upper R gluteal cheek, necrotic wound @ medial to distal Tibia,and extending to R foot and L foot * Altered nutrition related lab R/T TR as evidenced by elev BUN (215-> 134), elev creat (5.2->4.3), low Na (124 -> wnl), elev K (6.7 -> wnl) CURRENT TF:TF HELD ENTERAL NUTRITION RECOMMENDATIONS: Nepro @ 38ml/hr x 24 hrs to provide 912ml, 1642kcal, 74g prot, 663ml free water * Once medically appropriate to feed, initiate TF -> rec Nepro at this time given TR (Creat 5.2 -> 4.3) w/ elev K upon adm * Initiate Nepro @ 18ml/hr x 6hrs, advance 10ml q 4-6 hrs as tolerated to goal rate * HOB over 30 degrees/ water flush per MD Monitor renal fxn closely, need to continue renal TF formula ADDITIONAL RECOMMENDATIONS: * Per SNF: HT=62" WT= 135lbs (12/25/19) * Monitor renal fxn and lytes (slowly improving renal fxn) * Monitor ability to resume TF- TF holding cont to be needed, consider initiating parenteral nutrition * Wound healing: add Ajay BID w/ TF order * Monitor for hypoglycemia: rec to hold ALL insulin while pt is NPO Javid Singh Jan 17, 2020 15:11
[2020-01-17 16:00] VITALS: BP 137/78
--- NOTE | 2020-01-17 19:48 | Nephrology Progress Note ---
Assessment/Plan Problem List: (1) Respiratory failure (2) ARF (acute renal failure) (3) Hyponatremia (4) Hyperkalemia (5) Upper GI bleed (6) Pressure sore on sacrum (7) Diarrhea (8) Severe malnutrition Plan diarrhea, reorder iv fluids,BUN/creatinine 70/.91 11/2019, enteral hydration , BUN lower enteral fluids Subjective ROS Limited/Unobtainable: Yes Objective Objective Last 24 Hour Vital Signs Date Time Temp Pulse Resp B/P (MAP) Pulse Ox O2 Delivery O2 Flow Rate FiO2 01/17/20 16:00 96.8 66 16 137/78 (97) 100 01/17/20 16:00 66 01/17/20 16:00 Mechanical Ventilator 01/17/20 16:00 40 01/17/20 15:33 64 26 30 01/17/20 12:59 96.4 65 20 125/71 (89) 100 01/17/20 12:00 40 01/17/20 12:00 66 01/17/20 12:00 Mechanical Ventilator 01/17/20 11:03 65 24 30 01/17/20 08:00 Mechanical Ventilator 01/17/20 08:00 96.4 72 20 133/70 (91) 100 01/17/20 08:00 64 01/17/20 08:00 40 01/17/20 06:39 64 25 30 01/17/20 04:00 Mechanical Ventilator 01/17/20 04:00 97.6 72 20 106/74 (85) 100 01/17/20 04:00 40 01/17/20 03:56 67 01/17/20 03:07 67 25 35 01/17/20 00:00 Mechanical Ventilator 01/17/20 00:00 40 01/17/20 00:00 97.5 71 20 116/70 (85) 100 01/16/20 23:59 69 01/16/20 22:57 69 24 40 01/16/20 20:00 97.5 73 22 126/64 (84) 99 01/16/20 20:00 40 01/16/20 20:00 Mechanical Ventilator Intake and Output 01/16/20 01/17/20 19:00 07:00 Intake Total 830 ml 1551.66 ml Output Total 500 ml 600 ml Balance 330 ml 951.66 ml Intake Free Water 110 ml 90 ml IV Total 390 ml 1101.66 ml Tube Feeding 330 ml 360 ml Output Urine Total 500 ml 600 ml # Bowel Movements 6 5 Laboratory Tests 01/17/20 03:30: White Blood Count 7.5, Red Blood Count 3.24L, Hemoglobin 9.3L, Hematocrit 26.3L , Mean Corpuscular Volume 81, Mean Corpuscular Hemoglobin 28.6, Mean Corpuscular Hemoglobin Concent 35.3, Red Cell Distribution Width 16.3H, Platelet Count 70L, Mean Platelet Volume 13.4H, Neutrophils (%) (Auto) , Lymphocytes (%) (Auto) , Monocytes (%) (Auto) , Eosinophils (%) (Auto) , Basophils (%) (Auto) , Differential Total Cells Counted 100, Neutrophils % ( Manual) 79H, Lymphocytes % (Manual) 12L, Monocytes % (Manual) 8, Eosinophils % ( Manual) 1, Basophils % (Manual) 0, Band Neutrophils 0, Platelet Estimate DecreasedL, Platelet Morphology , Giant Platelets Occasional, Hypochromasia 1+, Anisocytosis 1+, Prothrombin Time 15.9H, Prothromb Time International Ratio 1.5H , Activated Partial Thromboplast Time 40H, Sodium Level 138, Potassium Level 3.8 , Chloride Level 104, Carbon Dioxide Level 19L, Anion Gap 15, Blood Urea Nitrogen 121H, Creatinine 4.5H, Estimat Glomerular Filtration Rate 16.7, Glucose Level 119H, Calcium Level 8.4L, Total Bilirubin 1.6H, Direct Bilirubin 1.3H, Aspartate Amino Transf (AST/SGOT) 929H, Alanine Aminotransferase (ALT/SGPT ) 462H, Alkaline Phosphatase 196H, Total Protein 5.2L, Albumin 0.6L, Globulin 4.6, Albumin/Globulin Ratio 0.1L Height (Feet): 5 Height (Inches): 5.00 Weight (Pounds): 171 General Appearance: lethargic, other - on vent Cardiovascular: regular rhythm Respiratory/Chest: rhonchi - bilaterally Abdomen: soft Extremities: other - gangrene feet Neurologic: unresponsive Martin Yee MD Jan 17, 2020 19:48
[2020-01-17 20:00] VITALS: BP 112/61
[2020-01-17] MEDS: Atorvastatin 80mg tab GT SCH (20:19)
[2020-01-18] VITALS: BP 114/67
[2020-01-18 04:00] VITALS: BP 116/56
[2020-01-18] MEDS: Metoclopramide 10mg/2ml Inj IVP SCH ×3 (05:16→17:39)
[2020-01-18] MEDS: Insulin NovoLOG Flexpen S/S (Mod) SUBQ SCH ×4 (05:17→23:26)
[2020-01-18 07:17] LABS: HEMATOCRIT 27.2 % (42.0-52.0); HEMOGLOBIN 9.3 G/DL (14.2-18.0); MEAN CORPUSCULAR VOLUME 83 FL (80-99); PLATELET COUNT 62 K/UL (150-450); RED BLOOD COUNT 3.28 M/UL (4.70-6.10); RED CELL DISTRIBUTION WIDTH 17.1 % (11.6-14.8); WHITE BLOOD COUNT 9.9 K/UL (4.8-10.8)
[2020-01-18 07:55] VITALS: BP 107/58
[2020-01-18 08:00] LABS: ALANINE AMINOTRANSFERASE 434 U/L (12-78); ALBUMIN 0.6 G/DL (3.4-5.0); ALKALINE PHOSPHATASE 202 U/L (46-116); ANION GAP 13 mmol/L (5-15); ASPARTATE AMINO TRANSFERASE 753 U/L (15-37); BILIRUBIN,TOTAL 1.8 MG/DL (0.2-1.0); BLOOD UREA NITROGEN 119 mg/dL (7-18); CALCIUM 8.3 MG/DL (8.5-10.1); CARBON DIOXIDE 19 MMOL/L (21-32); CHLORIDE 103 MMOL/L (98-107); CREATININE 4.3 MG/DL (0.55-1.30); POTASSIUM 3.9 MMOL/L (3.5-5.1); SODIUM 135 MMOL/L (136-145)
--- NOTE | 2020-01-18 08:00 | Pulmonology Progress Note ---
Subjective ROS Limited/Unobtainable: Yes Constitutional: Denies: fever Gastrointestinal/Abdominal: Reports: diarrhea Allergies: Coded Allergies: No Known Allergies (Unverified , 10/07/19) All Systems: reviewed and negative except above Subjective care noted on vent rectal tube poor IV access renal function poor and not improved Objective Last 24 Hour Vital Signs Date Time Temp Pulse Resp B/P (MAP) Pulse Ox O2 Delivery O2 Flow Rate FiO2 01/18/20 07:55 95.9 61 27 107/58 (74) 100 01/18/20 07:11 60 26 30 01/18/20 04:00 40 01/18/20 04:00 Mechanical Ventilator 01/18/20 04:00 95.9 62 24 116/56 (76) 100 01/18/20 03:51 63 01/18/20 03:03 62 25 30 01/18/20 00:00 98.7 62 24 114/67 (83) 100 01/18/20 00:00 Mechanical Ventilator 01/17/20 23:43 59 01/17/20 23:16 60 27 30 01/17/20 20:00 Mechanical Ventilator 01/17/20 20:00 40 01/17/20 20:00 95.9 61 24 112/61 (78) 100 01/17/20 19:50 61 24 30 01/17/20 19:22 63 01/17/20 16:00 96.8 66 16 137/78 (97) 100 01/17/20 16:00 66 01/17/20 16:00 Mechanical Ventilator 01/17/20 16:00 40 01/17/20 15:33 64 26 30 01/17/20 12:59 96.4 65 20 125/71 (89) 100 01/17/20 12:00 40 01/17/20 12:00 66 01/17/20 12:00 Mechanical Ventilator 01/17/20 11:03 65 24 30 Intake and Output 01/17/20 01/18/20 19:00 07:00 Intake Total 630 ml 1928 ml Output Total 300 ml 600 ml Balance 330 ml 1328 ml Intake Free Water 300 ml 100 ml IV Total 1498 ml Tube Feeding 330 ml 330 ml Output Urine Total 300 ml 600 ml # Bowel Movements 10 5 Objective WDWN trach clear breath sounds bilaterally without rhonchi or wheeze [id number] without MRG NABS nontender no HSM no CCE poor LOC reviewed and edited Laboratory Tests 01/18/20 03:47: White Blood Count 9.9, Red Blood Count 3.28L, Hemoglobin 9.3L, Hematocrit 27.2L , Mean Corpuscular Volume 83, Mean Corpuscular Hemoglobin 28.2, Mean Corpuscular Hemoglobin Concent 34.0, Red Cell Distribution Width 17.1H, Platelet Count 62L, Mean Platelet Volume 14.1H, Neutrophils (%) (Auto) , Lymphocytes (%) (Auto) , Monocytes (%) (Auto) , Eosinophils (%) (Auto) , Basophils (%) (Auto) , Neutrophils % (Manual) [Pending], Lymphocytes % (Manual) [Pending], Platelet Estimate [Pending], Platelet Morphology [Pending], Sodium Level [Pending], Potassium Level [Pending], Chloride Level [Pending], Carbon Dioxide Level [Pending], Blood Urea Nitrogen [Pending], Creatinine [Pending], Estimat Glomerular Filtration Rate [Pending], Glucose Level [Pending], Calcium Level [Pending], Total Bilirubin [Pending], Aspartate Amino Transf (AST/SGOT) [ Pending], Alanine Aminotransferase (ALT/SGPT) [Pending], Alkaline Phosphatase [ Pending], Total Protein [Pending], Albumin [Pending], Globulin [Pending] Current Medications Medications (Trade) Dose Ordered Sig/[place] Route PRN Reason Start Time Stop Time Status Last Admin Dose Admin Acetaminophen (Tylenol) 650 mg Q4H PRN GT Temp >100.5 01/14/20 16:35 02/13/20 16:34 Acetaminophen (Tylenol) 650 mg Q4H PRN GT Mild Pain (Pain Scale 1-3) 01/14/20 16:45 02/13/20 16:44 Al Hydroxide/Mg Hydroxide (Mylanta) 30 ml QIDPRN PRN GT stomach upset 01/14/20 16:45 02/13/20 16:44 Artificial Tears (Akwa-Tears) 1 drop EVERY 12 HOURS BOTH EYES 01/14/20 21:00 02/13/20 20:59 01/17/20 20:20 Atorvastatin Calcium (Lipitor) 80 mg BEDTIME GT 01/14/20 21:00 04/13/20 20:59 01/17/20 20:19 Dextrose (Dextrose 50%) 25 ml Q30M PRN IV Hypoglycemia 01/14/20 16:45 04/13/20 16:44 Dextrose (Dextrose 50%) 50 ml Q30M PRN IV hypoglycemia 01/14/20 16:45 04/13/20 16:44 01/14/20 21:25 Insulin Aspart (NovoLOG) No Dose Q6HR SUBQ 01/14/20 18:00 04/13/20 17:59 01/18/20 05:17 Insulin Detemir (Levemir) 25 units Q12HR SUBQ 01/14/20 21:00 04/13/20 20:59 01/17/20 20:22 Loperamide HCl (Imodium) 2 mg Q4H PRN GT Diarrhea 01/17/20 10:30 02/16/20 10:29 01/17/20 10:54 Metoclopramide HCl (Reglan) 5 mg Q6H IVP 01/17/20 12:00 02/16/20 11:59 01/18/20 05:16 Pantoprazole (Protonix) 40 mg Q12HR IVP 01/14/20 21:00 02/13/20 20:59 01/17/20 20:19 Sodium Bicarbonate 50 ml/ Potassium Chloride 30 meq/ Dextrose 1,065 ml @ 125 mls/hr Q8H32M IV 01/16/20 22:00 02/15/20 21:59 01/17/20 23:30 Sodium Hypochlorite (Dakin's Half Strength) 1 applic DAILY TOPIC 01/15/20 09:00 02/14/20 08:59 01/17/20 08:30 Vancomycin HCl (Firvanq) 125 mg FOUR TIMES A DAY GT 01/14/20 18:00 01/23/20 23:59 01/17/20 20:20 Zinc Sulfate (Zinc Sulfate) 220 mg DAILY GT 01/15/20 09:00 04/14/20 08:59 01/17/20 08:30 Assessment/Plan Assessment/Plan IMPRESSION chronic respiratory failure Acute on chronic renal failure elevated K anemia GIB leukocytosis possible sepsis oral bleeding diarrhea PLAN IV hydration per renal iv antibiotics ID , GI and renal HD per renal vent as is monitor vitals hold feeds snf meds full code prognosis very poor for recovery consider dc to snf if all agree; per renal- will await until monday impression, plan, and exam edited and reviewed in detail care discussed with Lorenzo Chase MD Jan 18, 2020 08:00
[2020-01-18 08:01] LABS: ALBUMIN/GLOBULIN RATIO 0.1 (1.0-2.7)
[2020-01-18 08:02] LABS: BILIRUBIN,DIRECT 1.4 MG/DL (0.0-0.3)
[2020-01-18] MEDS: Zinc Sulfate 220mg GT SCH (08:17)
[2020-01-18] MEDS: POTASSIUM CHLORIDE IV SCH ×2 (08:17→17:32)
[2020-01-18] MEDS: DEXTROSE 10% IV SCH ×2 (08:17→17:32)
[2020-01-18] MEDS: Pantoprazole Inj IVP SCH ×2 (08:17→20:34)
[2020-01-18] MEDS: SODIUM BICARBONATE IV SCH ×2 (08:17→17:32)
[2020-01-18] MEDS: Levemir Flexpen SUBQ SCH ×2 (08:19→20:39)
[2020-01-18] MEDS: Dakin's 0.25% (Half Strength) 16oz TOPIC SCH (08:20)
[2020-01-18] MEDS: Vancomycin oral 125mg/2.5ml GT SCH ×4 (08:21→20:45)
--- NOTE | 2020-01-18 10:42 | Infectious Diseases Prog Note ---
"Assessment/Plan Assessment/Plan antibiotics : po vancomycin 5.29.20 - A 1. e.coli | klebsiella | pseudomonas pneumonia s/p rx 2. renal failure 3. respiratory failure 4. intracranial hemorrhage 5. paraplegia 6. leucocytosis improving 7. COVID 19 test negative x 2 8. gangrene of feet bilaterally P 1. continue po vancomycin 5 more days 2. will follow up cultures Subjective ROS Limited/Unobtainable: Yes Allergies: Coded Allergies: No Known Allergies (Unverified , 10/07/19) Objective Vital Signs Last 24 Hour Vital Signs Date Time Temp Pulse Resp B/P (MAP) Pulse Ox O2 Delivery O2 Flow Rate FiO2 01/18/20 10:15 96.1 01/18/20 08:41 61 01/18/20 08:00 40 01/18/20 08:00 Mechanical Ventilator 01/18/20 07:55 95.9 61 27 107/58 (74) 100 01/18/20 07:11 60 26 30 01/18/20 04:00 40 01/18/20 04:00 Mechanical Ventilator 01/18/20 04:00 95.9 62 24 116/56 (76) 100 01/18/20 03:51 63 01/18/20 03:03 62 25 30 01/18/20 00:00 98.7 62 24 114/67 (83) 100 01/18/20 00:00 Mechanical Ventilator 01/17/20 23:43 59 01/17/20 23:16 60 27 30 01/17/20 20:00 Mechanical Ventilator 01/17/20 20:00 40 01/17/20 20:00 95.9 61 24 112/61 (78) 100 01/17/20 19:50 61 24 30 01/17/20 19:22 63 01/17/20 16:00 96.8 66 16 137/78 (97) 100 01/17/20 16:00 66 01/17/20 16:00 Mechanical Ventilator 01/17/20 16:00 40 01/17/20 15:33 64 26 30 01/17/20 12:59 96.4 65 20 125/71 (89) 100 01/17/20 12:00 40 01/17/20 12:00 66 01/17/20 12:00 Mechanical Ventilator 01/17/20 11:03 65 24 30 Height (Feet): 5 Height (Inches): 5.00 Weight (Pounds): 183 HEENT: status post trach Respiratory/Chest: lungs clear Cardiovascular: normal rate, regular rhythm, no gallop/murmur Abdomen: soft, non tender, other - GT Extremities: other - + edema, necrotic feet bilaterally Laboratory Tests Test 01/18/20 03:47 White Blood Count 9.9 K/UL (4.8-10.8) Red Blood Count 3.28 M/UL (4.70-6.10) L Hemoglobin 9.3 G/DL (14.2-18.0) L Hematocrit 27.2 % (42.0-52.0) L Mean Corpuscular Volume 83 FL (80-99) Mean Corpuscular Hemoglobin 28.2 PG (27.0-31.0) Mean Corpuscular Hemoglobin Concent 34.0 G/DL (32.0-36.0) Red Cell Distribution Width 17.1 % (11.6-14.8) H Platelet Count 62 K/UL (150-450) L Mean Platelet Volume 14.1 FL (6.5-10.1) H Neutrophils (%) (Auto) % (45.0-75.0) Lymphocytes (%) (Auto) % (20.0-45.0) Monocytes (%) (Auto) % (1.0-10.0) Eosinophils (%) (Auto) % (0.0-3.0) Basophils (%) (Auto) % (0.0-2.0) Differential Total Cells Counted 100 Neutrophils % (Manual) 72 % (45-75) Lymphocytes % (Manual) 16 % (20-45) L Monocytes % (Manual) 7 % (1-10) Eosinophils % (Manual) 4 % (0-3) H Basophils % (Manual) 1 % (0-2) Band Neutrophils 0 % (0-8) Platelet Estimate Decreased L Platelet Morphology Normal Hypochromasia 2+ Anisocytosis 1+ Sodium Level 135 MMOL/L (136-145) L Potassium Level 3.9 MMOL/L (3.5-5.1) Chloride Level 103 MMOL/L (98-107) Carbon Dioxide Level 19 MMOL/L (21-32) L Anion Gap 13 mmol/L (5-15) Blood Urea Nitrogen 119 mg/dL (7-18) H Creatinine 4.3 MG/DL (0.55-1.30) H Estimat Glomerular Filtration Rate 17.6 mL/min (>60) Glucose Level 251 MG/DL (74-106) #H Calcium Level 8.3 MG/DL (8.5-10.1) L Total Bilirubin 1.8 MG/DL (0.2-1.0) H Direct Bilirubin 1.4 MG/DL (0.0-0.3) H Aspartate Amino Transf (AST/SGOT) 753 U/L (15-37) H Alanine Aminotransferase (ALT/SGPT) 434 U/L (12-78) H Alkaline Phosphatase 202 U/L (46-116) H Total Protein 5.0 G/DL (6.4-8.2) L Albumin 0.6 G/DL (3.4-5.0) L Globulin 4.4 g/dL Albumin/Globulin Ratio 0.1 (1.0-2.7) L Current Medications Medications (Trade) Dose Ordered Sig/[place] Route PRN Reason Start Time Stop Time Status Last Admin Dose Admin Acetaminophen (Tylenol) 650 mg Q4H PRN GT Temp >100.5 01/14/20 16:35 02/13/20 16:34 Acetaminophen (Tylenol) 650 mg Q4H PRN GT Mild Pain (Pain Scale 1-3) 01/14/20 16:45 02/13/20 16:44 Al Hydroxide/Mg Hydroxide (Mylanta) 30 ml QIDPRN PRN GT stomach upset 01/14/20 16:45 02/13/20 16:44 Artificial Tears (Akwa-Tears) 1 drop EVERY 12 HOURS BOTH EYES 01/14/20 21:00 02/13/20 20:59 01/18/20 08:17 Atorvastatin Calcium (Lipitor) 80 mg BEDTIME GT 01/14/20 21:00 04/13/20 20:59 01/17/20 20:19 Dextrose (Dextrose 50%) 25 ml Q30M PRN IV Hypoglycemia 01/14/20 16:45 04/13/20 16:44 Dextrose (Dextrose 50%) 50 ml Q30M PRN IV hypoglycemia 01/14/20 16:45 04/13/20 16:44 01/14/20 21:25 Insulin Aspart (NovoLOG) No Dose Q6HR SUBQ 01/14/20 18:00 04/13/20 17:59 01/18/20 05:17 Insulin Detemir (Levemir) 25 units Q12HR SUBQ 01/14/20 21:00 04/13/20 20:59 01/18/20 08:19 Loperamide HCl (Imodium) 2 mg Q4H PRN GT Diarrhea 01/17/20 10:30 02/16/20 10:29 01/18/20 08:17 Metoclopramide HCl (Reglan) 5 mg Q6H IVP 01/17/20 12:00 02/16/20 11:59 01/18/20 05:16 Pantoprazole (Protonix) 40 mg Q12HR IVP 01/14/20 21:00 02/13/20 20:59 01/18/20 08:17 Sodium Bicarbonate 50 ml/ Potassium Chloride 30 meq/ Dextrose 1,065 ml @ 125 mls/hr Q8H32M IV 01/16/20 22:00 02/15/20 21:59 01/18/20 08:17 Sodium Hypochlorite (Dakin's Half Strength) 1 applic DAILY TOPIC 01/15/20 09:00 02/14/20 08:59 01/18/20 08:20 Vancomycin HCl (Firvanq) 125 mg FOUR TIMES A DAY GT 01/14/20 18:00 01/23/20 23:59 01/18/20 08:21 Zinc Sulfate (Zinc Sulfate) 220 mg DAILY GT 01/15/20 09:00 04/14/20 08:59 01/18/20 08:17 Tony Apple MD Jan 18, 2020 10:42"
[2020-01-18 12:00] VITALS: BP 129/72
--- NOTE | 2020-01-18 13:51 | Surgery Progress Note ---
Surgery Progress Note Subjective Procedure Performed right femoral central venous catheter removal Additional Comments h/h stable no active bleeding exam stable plt noted Objective Last 24 Hour Vital Signs Date Time Temp Pulse Resp B/P (MAP) Pulse Ox O2 Delivery O2 Flow Rate FiO2 01/18/20 12:45 62 01/18/20 12:00 Mechanical Ventilator 01/18/20 12:00 97.2 63 26 129/72 (91) 100 01/18/20 12:00 40 01/18/20 11:02 63 26 30 01/18/20 10:15 96.1 01/18/20 08:41 61 01/18/20 08:00 40 01/18/20 08:00 Mechanical Ventilator 01/18/20 07:55 95.9 61 27 107/58 (74) 100 01/18/20 07:11 60 26 30 01/18/20 04:00 40 01/18/20 04:00 Mechanical Ventilator 01/18/20 04:00 95.9 62 24 116/56 (76) 100 01/18/20 03:51 63 01/18/20 03:03 62 25 30 01/18/20 00:00 98.7 62 24 114/67 (83) 100 01/18/20 00:00 Mechanical Ventilator 01/17/20 23:43 59 01/17/20 23:16 60 27 30 01/17/20 20:00 Mechanical Ventilator 01/17/20 20:00 40 01/17/20 20:00 95.9 61 24 112/61 (78) 100 01/17/20 19:50 61 24 30 01/17/20 19:22 63 01/17/20 16:00 96.8 66 16 137/78 (97) 100 01/17/20 16:00 66 01/17/20 16:00 Mechanical Ventilator 01/17/20 16:00 40 01/17/20 15:33 64 26 30 I&O Intake and Output 01/17/20 01/18/20 19:00 07:00 Intake Total 630 ml 1928 ml Output Total 300 ml 600 ml Balance 330 ml 1328 ml Intake Free Water 300 ml 100 ml IV Total 1498 ml Tube Feeding 330 ml 330 ml Output Urine Total 300 ml 600 ml # Bowel Movements 10 5 Dressing: other Wound: other Drains: other Cardiovascular: RSR Respiratory: decreased breath sounds Abdomen: soft, present bowel sounds Extremities: edema, no cyanosis, other Laboratory Tests Test 01/18/20 03:47 White Blood Count 9.9 K/UL (4.8-10.8) Red Blood Count 3.28 M/UL (4.70-6.10) L Hemoglobin 9.3 G/DL (14.2-18.0) L Hematocrit 27.2 % (42.0-52.0) L Mean Corpuscular Volume 83 FL (80-99) Mean Corpuscular Hemoglobin 28.2 PG (27.0-31.0) Mean Corpuscular Hemoglobin Concent 34.0 G/DL (32.0-36.0) Red Cell Distribution Width 17.1 % (11.6-14.8) H Platelet Count 62 K/UL (150-450) L Mean Platelet Volume 14.1 FL (6.5-10.1) H Neutrophils (%) (Auto) % (45.0-75.0) Lymphocytes (%) (Auto) % (20.0-45.0) Monocytes (%) (Auto) % (1.0-10.0) Eosinophils (%) (Auto) % (0.0-3.0) Basophils (%) (Auto) % (0.0-2.0) Differential Total Cells Counted 100 Neutrophils % (Manual) 72 % (45-75) Lymphocytes % (Manual) 16 % (20-45) L Monocytes % (Manual) 7 % (1-10) Eosinophils % (Manual) 4 % (0-3) H Basophils % (Manual) 1 % (0-2) Band Neutrophils 0 % (0-8) Platelet Estimate Decreased L Platelet Morphology Normal Hypochromasia 2+ Anisocytosis 1+ Sodium Level 135 MMOL/L (136-145) L Potassium Level 3.9 MMOL/L (3.5-5.1) Chloride Level 103 MMOL/L (98-107) Carbon Dioxide Level 19 MMOL/L (21-32) L Anion Gap 13 mmol/L (5-15) Blood Urea Nitrogen 119 mg/dL (7-18) H Creatinine 4.3 MG/DL (0.55-1.30) H Estimat Glomerular Filtration Rate 17.6 mL/min (>60) Glucose Level 251 MG/DL (74-106) #H Calcium Level 8.3 MG/DL (8.5-10.1) L Total Bilirubin 1.8 MG/DL (0.2-1.0) H Direct Bilirubin 1.4 MG/DL (0.0-0.3) H Aspartate Amino Transf (AST/SGOT) 753 U/L (15-37) H Alanine Aminotransferase (ALT/SGPT) 434 U/L (12-78) H Alkaline Phosphatase 202 U/L (46-116) H Total Protein 5.0 G/DL (6.4-8.2) L Albumin 0.6 G/DL (3.4-5.0) L Globulin 4.4 g/dL Albumin/Globulin Ratio 0.1 (1.0-2.7) L Plan Problems: (1) Hyponatremia (2) ARF (acute renal failure) (3) Hyperkalemia (4) Pressure sore on sacrum Assessment & Plan: Pt presented on admission with Sacral Pressure injury and Necrosis Both Both R lower ext, R foot and L foot. Generalized edema noted. Both upper ext noted to have multiple serous blisters ,some of which are weeping serous exudate. Full thickness Sacral Pressure Injury with undermined Borders. Base of wound is 75% loose necrotic tissue,25% bree. Bone exposure at base of wound. Area of necrosis noted at distal aspect of wound in space between wound and anus.Edges are macerated. Wound is malodorous.(L)9.5cm x (W)9.2cm x (D)2.9cm,undermining clockwise 10-3 by 3.8cm @12 o'clock. Scattered areas of hyperpigmentation noted to R and L clefts of buttocks. Unable to determine exudate as pt is continuously oozing large amt of semi soft black stool and leaking into wound because of close proximity to his rectum. At upper, R gluteal cheek is additional Pressure Injury with small amt Biofilm at base of wound. Edges are pink and adherent to base of wound. No exudate noted.(L)3cm x (W)2.6cm. Medially to distal Tibia,and extending to R foot is necrotic and malodorous.Wound is partially opened at posterior R tibia but is dry . L foot is necrotic and malodorous. No exudate noted. Tx.Plan: Cleanse Sacral wound with Dakin's 0.25% archana.. Loosely Pack wound with Dakin's moistened Kerlix.Apply Moisture Barrier Paste periwound.Cover with Optifoam drsg.Change Daily and PRN. Cleanse R lower ext and R foot with Dakin's 0.25% Archana. Cover wounds with ABD Pads.Wrap with Kerlix Daily and prn. Cleanse L foot Wounds with Dakin's 0.25% Archana. Cover wounds with ABD Pads and wrap with Kerlix Daily and prn. (5) Upper GI bleed Assessment & Plan: Patient with sepsis, abnormal labs, GI bleed, pending COVID eval. Labs noted. Exam reviewed. Chest x-ray noted as below. Discussed with GI. Plan for endoscopy once COVID status evaluated. Trend hemoglobin for now transfuse PRN. G-tube is functional and okay for medications and will plan tube feeds accordingly. No acute surgical intervention as patient is actively bleeding. Proton pump inhibitor recommended and Rx as written. Will follow with recommendations thank you for let me participate in patient's care plt low anemia prognosis guarded no active GI bleeding noted Status post PEG Tolerating tube feeds but still having diarrhea Difficult with rectal tube slides right out likely from spinal injury Anasarca stable No active bleeding line Free currently will monitor closely There is a tracheostomy in place. Vascularity is normal. Hazy densities in the lung bases may be layering effusions. Cardiac and mediastinal silhouette are within normal limits. The bony thorax appear unremarkable. line removed will monitor for bleeding IMPRESSION: Bibasilar hazy densities perhaps layering effusions. right fem line not functional noted manipulation as suture was dislodged. line replaced 1. Two or three gastric AVMs. 2. Ulcer with a small visible vessel, status post gold probe bipolar cauterization. DAILY ESTIMATED NEEDS: Needs based on Critical Care, Wounds, TR / 61kg 25-30 kcals/kg 2973-2690 total kcals 0.8-1.25 (increase w/ renal improvement) g protein/kg 49-76 g total protein 25-30 mL/kg 7782-1621 total fluid mLs NUTRITION DIAGNOSIS: * Swallowing difficulty R/T respiratory status, dysphagia as evidenced by trach/vent dep, PEG dep. * Increased kcal/prot intake needs R/T wound healing as evidenced by admitted w/ multiple wounds including full thickness wound @ sacrum, pressure Injury with small amt Biofilm at base of wound @ upper R gluteal cheek, necrotic wound @ medial to distal Tibia,and extending to R foot and L foot * Altered nutrition related lab R/T TR as evidenced by elev BUN (215-> 134), elev creat (5.2->4.3), low Na (124 -> wnl), elev K (6.7 -> wnl) CURRENT TF:TF HELD ENTERAL NUTRITION RECOMMENDATIONS: Nepro @ 38ml/hr x 24 hrs to provide 912ml, 1642kcal, 74g prot, 663ml free water * Once medically appropriate to feed, initiate TF -> rec Nepro at this time given TR (Creat 5.2 -> 4.3) w/ elev K upon adm * Initiate Nepro @ 18ml/hr x 6hrs, advance 10ml q 4-6 hrs as tolerated to goal rate * HOB over 30 degrees/ water flush per MD Monitor renal fxn closely, need to continue renal TF formula ADDITIONAL RECOMMENDATIONS: * Per SNF: HT=62" WT= 135lbs (12/25/19) * Monitor renal fxn and lytes (slowly improving renal fxn) * Monitor ability to resume TF- TF holding cont to be needed, consider initiating parenteral nutrition * Wound healing: add Ajay BID w/ TF order * Monitor for hypoglycemia: rec to hold ALL insulin while pt is NPO Javid Singh Jan 18, 2020 13:51
[2020-01-18] MEDS ORDERED: D5 1/2NS 1000ml IV ONE (14:46)
[2020-01-18 16:00] VITALS: BP 118/65
[2020-01-18 20:00] VITALS: BP 113/57
[2020-01-18] MEDS: Atorvastatin 80mg tab GT SCH (20:35)
--- NOTE | 2020-01-18 21:25 | General Progress Note ---
Assessment/Plan Assessment/Plan: Assessment/Plan Assessment/Plan: sepsis anemia GIB thrombocytopenia hyponatremia ARF DM dysphagia with GT Recommendations s/p EGD/PEG GTF reglan>>> ecreased to 5 mg add imodium prn ppi repeat LFTS - ? shock liver - check CK - r/o rhabdo - Hold statin - Check CT will f/u Subjective Allergies: Coded Allergies: No Known Allergies (Unverified , 10/07/19) All Systems: reviewed and negative except above Subjective Above noted d/w RN tolerating TF Objective Last 24 Hour Vital Signs Date Time Temp Pulse Resp B/P (MAP) Pulse Ox O2 Delivery O2 Flow Rate FiO2 01/18/20 20:10 60 25 30 01/18/20 20:00 40 01/18/20 20:00 Mechanical Ventilator 01/18/20 20:00 97.7 61 26 113/57 (75) 99 01/18/20 19:31 59 01/18/20 16:00 66 01/18/20 16:00 Mechanical Ventilator 01/18/20 16:00 40 01/18/20 16:00 97.7 65 26 118/65 (82) 99 01/18/20 14:56 65 25 30 01/18/20 12:45 62 01/18/20 12:00 Mechanical Ventilator 01/18/20 12:00 97.2 63 26 129/72 (91) 100 01/18/20 12:00 40 01/18/20 11:02 63 26 30 01/18/20 10:15 96.1 01/18/20 08:41 61 01/18/20 08:00 40 01/18/20 08:00 Mechanical Ventilator 01/18/20 07:55 95.9 61 27 107/58 (74) 100 01/18/20 07:11 60 26 30 01/18/20 04:00 40 01/18/20 04:00 Mechanical Ventilator 01/18/20 04:00 95.9 62 24 116/56 (76) 100 01/18/20 03:51 63 01/18/20 03:03 62 25 30 01/18/20 00:00 98.7 62 24 114/67 (83) 100 01/18/20 00:00 Mechanical Ventilator 01/17/20 23:43 59 01/17/20 23:16 60 27 30 Intake and Output 01/17/20 01/18/20 19:00 07:00 Intake Total 630 ml 1958 ml Output Total 300 ml 600 ml Balance 330 ml 1358 ml Intake Free Water 300 ml 100 ml IV Total 1498 ml Tube Feeding 330 ml 360 ml Output Urine Total 300 ml 600 ml # Bowel Movements 10 5 Laboratory Tests 01/18/20 03:47: White Blood Count 9.9, Red Blood Count 3.28L, Hemoglobin 9.3L, Hematocrit 27.2L , Mean Corpuscular Volume 83, Mean Corpuscular Hemoglobin 28.2, Mean Corpuscular Hemoglobin Concent 34.0, Red Cell Distribution Width 17.1H, Platelet Count 62L, Mean Platelet Volume 14.1H, Neutrophils (%) (Auto) , Lymphocytes (%) (Auto) , Monocytes (%) (Auto) , Eosinophils (%) (Auto) , Basophils (%) (Auto) , Differential Total Cells Counted 100, Neutrophils % ( Manual) 72, Lymphocytes % (Manual) 16L, Monocytes % (Manual) 7, Eosinophils % ( Manual) 4H, Basophils % (Manual) 1, Band Neutrophils 0, Platelet Estimate DecreasedL, Platelet Morphology Normal, Hypochromasia 2+, Anisocytosis 1+, Sodium Level 135L, Potassium Level 3.9, Chloride Level 103, Carbon Dioxide Level 19L, Anion Gap 13, Blood Urea Nitrogen 119H, Creatinine 4.3H, Estimat Glomerular Filtration Rate 17.6, Glucose Level 251#H, Calcium Level 8.3L, Total Bilirubin 1.8H, Direct Bilirubin 1.4H, Aspartate Amino Transf (AST/SGOT) 753H, Alanine Aminotransferase (ALT/SGPT) 434H, Alkaline Phosphatase 202H, Total Protein 5.0L, Albumin 0.6L, Globulin 4.4, Albumin/Globulin Ratio 0.1L Height (Feet): 5 Height (Inches): 5.00 Weight (Pounds): 183 Objective Debilitated coarse BS RR abd soft, ND (+) b// foot dressing Rah Diaz MD Jan 18, 2020 21:25
--- NOTE | 2020-01-18 21:52 | Nephrology Progress Note ---
Assessment/Plan Problem List: (1) Respiratory failure (2) ARF (acute renal failure) (3) Hyponatremia (4) Hyperkalemia (5) Upper GI bleed (6) Pressure sore on sacrum (7) Diarrhea (8) Severe malnutrition Plan diarrhea, reorder iv fluids,BUN/creatinine 70/.91 11/2019, enteral hydration , BUN lower enteral fluids reji likely from infection, severe hypoalbuminemia with poor prognosis Subjective ROS Limited/Unobtainable: Yes Objective Objective Last 24 Hour Vital Signs Date Time Temp Pulse Resp B/P (MAP) Pulse Ox O2 Delivery O2 Flow Rate FiO2 01/18/20 20:10 60 25 30 01/18/20 20:00 40 01/18/20 20:00 Mechanical Ventilator 01/18/20 20:00 97.7 61 26 113/57 (75) 99 01/18/20 19:31 59 01/18/20 16:00 66 01/18/20 16:00 Mechanical Ventilator 01/18/20 16:00 40 01/18/20 16:00 97.7 65 26 118/65 (82) 99 01/18/20 14:56 65 25 30 01/18/20 12:45 62 01/18/20 12:00 Mechanical Ventilator 01/18/20 12:00 97.2 63 26 129/72 (91) 100 01/18/20 12:00 40 01/18/20 11:02 63 26 30 01/18/20 10:15 96.1 01/18/20 08:41 61 01/18/20 08:00 40 01/18/20 08:00 Mechanical Ventilator 01/18/20 07:55 95.9 61 27 107/58 (74) 100 01/18/20 07:11 60 26 30 01/18/20 04:00 40 01/18/20 04:00 Mechanical Ventilator 01/18/20 04:00 95.9 62 24 116/56 (76) 100 01/18/20 03:51 63 01/18/20 03:03 62 25 30 01/18/20 00:00 98.7 62 24 114/67 (83) 100 01/18/20 00:00 Mechanical Ventilator 01/17/20 23:43 59 01/17/20 23:16 60 27 30 Intake and Output 01/17/20 01/18/20 19:00 07:00 Intake Total 630 ml 1958 ml Output Total 300 ml 600 ml Balance 330 ml 1358 ml Intake Free Water 300 ml 100 ml IV Total 1498 ml Tube Feeding 330 ml 360 ml Output Urine Total 300 ml 600 ml # Bowel Movements 10 5 Laboratory Tests 01/18/20 03:47: White Blood Count 9.9, Red Blood Count 3.28L, Hemoglobin 9.3L, Hematocrit 27.2L , Mean Corpuscular Volume 83, Mean Corpuscular Hemoglobin 28.2, Mean Corpuscular Hemoglobin Concent 34.0, Red Cell Distribution Width 17.1H, Platelet Count 62L, Mean Platelet Volume 14.1H, Neutrophils (%) (Auto) , Lymphocytes (%) (Auto) , Monocytes (%) (Auto) , Eosinophils (%) (Auto) , Basophils (%) (Auto) , Differential Total Cells Counted 100, Neutrophils % ( Manual) 72, Lymphocytes % (Manual) 16L, Monocytes % (Manual) 7, Eosinophils % ( Manual) 4H, Basophils % (Manual) 1, Band Neutrophils 0, Platelet Estimate DecreasedL, Platelet Morphology Normal, Hypochromasia 2+, Anisocytosis 1+, Sodium Level 135L, Potassium Level 3.9, Chloride Level 103, Carbon Dioxide Level 19L, Anion Gap 13, Blood Urea Nitrogen 119H, Creatinine 4.3H, Estimat Glomerular Filtration Rate 17.6, Glucose Level 251#H, Calcium Level 8.3L, Total Bilirubin 1.8H, Direct Bilirubin 1.4H, Aspartate Amino Transf (AST/SGOT) 753H, Alanine Aminotransferase (ALT/SGPT) 434H, Alkaline Phosphatase 202H, Total Protein 5.0L, Albumin 0.6L, Globulin 4.4, Albumin/Globulin Ratio 0.1L Height (Feet): 5 Height (Inches): 5.00 Weight (Pounds): 183 General Appearance: lethargic, other - on vent Cardiovascular: regular rhythm, regularly irregular Respiratory/Chest: crackles/rales Abdomen: non tender, soft Extremities: trace edema, other - gangrene Neurologic: unresponsive Martin Yee MD Jan 18, 2020 21:52
[2020-01-19] VITALS (7 sets, daily range): BP systolic 100–144; BP diastolic 54–86
[2020-01-19] MEDS: Metoclopramide 10mg/2ml Inj IVP SCH ×5 (00:20→23:18)
[2020-01-19] MEDS: SODIUM BICARBONATE IV SCH ×2 (01:17→09:04)
[2020-01-19] MEDS: POTASSIUM CHLORIDE IV SCH ×2 (01:17→09:04)
[2020-01-19] MEDS: DEXTROSE 10% IV SCH ×2 (01:17→09:04)
[2020-01-19] MEDS: Insulin NovoLOG Flexpen S/S (Mod) SUBQ SCH ×4 (05:24→23:10)
[2020-01-19 06:12] LABS: ALANINE AMINOTRANSFERASE 436 U/L (12-78); ALBUMIN 0.6 G/DL (3.4-5.0); ALKALINE PHOSPHATASE 193 U/L (46-116); ANION GAP 12 mmol/L (5-15); ASPARTATE AMINO TRANSFERASE 708 U/L (15-37); BLOOD UREA NITROGEN 115 mg/dL (7-18); CALCIUM 7.7 MG/DL (8.5-10.1); CARBON DIOXIDE 19 MMOL/L (21-32); CHLORIDE 99 MMOL/L (98-107); CREATINE KINASE 44 U/L (26-308); CREATININE 4.1 MG/DL (0.55-1.30); POTASSIUM 4.5 MMOL/L (3.5-5.1); SODIUM 130 MMOL/L (136-145)
[2020-01-19 06:14] LABS: BILIRUBIN,DIRECT 1.7 MG/DL (0.0-0.3)
--- NOTE | 2020-01-19 07:25 | Hematology/Onc Progress Note ---
Assessment/Plan Assessment/Plan Assessment and recs # Thrombocytopenia - potential causes multifactorial, evaluate liver and viral etiologies to begin, also could be related to underlying medications patient has received. May be due to DIC in this case, or consumption --> Hep panel and HIV negative --> US abd to evaluate for cirrhosis and hsm --> neg for cirrhosis and hsm --> Peripheral smear ordered to evaluate for blasts /schistocytes --> abx and other meds have been reviewed --> ok for ppx if plt >50k w/ either heparin or lovenox --> Transfuse if Plt < 20k and fever, or if Plt < 10k without fever --> plt trend 41-->32-->21k-->20 -->61k-->45-->62-->51->38->55->50->70 --> plt transfusion 01/04 --> for sepsis is on abx # Anemia due to Upper GI bleed, hematuria --> no evidence of hemolysis is noted --> smear noted --> anemia panel reviewed, ferritin high --> no iron or epo needed --> po iron ok --> for hematuria as per urology --> Pending endoscopy when clear from covid19 --> hgb trend: 9.1 ->8.3->6.9-->8.1-->8.3-->7.6 -->6.6-->10.5-->9.8-->9.3 --> prbc: 2 units 01/02, 01/12 # Leukocytosis due to e/coli/kleb pna --> on connor/wilma--> vanc --> wbc trend 23-->32-->17.1-->13.9-->10 # Hyperkalemia --> kayxelate as needed --> k trend # ARF (acute renal failure) --> per renal # Hyponatremia # Gram negative pneumonia # Ventilator dependent respiratory failure # intracranial hemorrhage # paraplegia # Dysphagia with gtube The timing of this note does not necessarily reflect the time of the patient was seen. Greatly appreciate consultation. Subjective Allergies: Coded Allergies: No Known Allergies (Unverified , 10/07/19) Subjective 01/03obtunded, s/p rbc x2, hgb improved to 9.1, us abd reviewed, hematuria+ 01/04 plt are better, got 1 unit pf platets today as well, plt now 61k, less gi bleed overnight, some black tarry stool noted 01/05 nv, labs noted, hgb 8.5, no hemolysis noted, no bleeding, plt 83, egd tomorrow 01/06 egd for this am, results are pending, labs noted 01/09 no major changes, labs noted, no bleeding wbc higher, on abx 01/10 sdu, wbc improving, inr 1.4, vent, h/h stable, no distress 01/11 hgb 7.6, no tx required, repeat cbc for tomorrow, on vent 01/12 remains on vent, hgb 6.6, getting 2 iunits prbc today, will need picc 01/13 trach to vent, nepro feeds ongoing, hgb improved 10.5 01/14 s/p egd w/ peg, rectal tube, no acute events, h/h stable 01/15 remains obtunded, minimal blood in stool, will hold off on platelet administration 01/16 labs noted, nob leeding, meds reviewed, plt higher 01/18 sdu, nonverbal, no acute events, vent, vanc Objective Objective Current Medications Medications (Trade) Dose Ordered Sig/[place] Route PRN Reason Start Time Stop Time Status Last Admin Dose Admin Acetaminophen (Tylenol) 650 mg Q4H PRN GT Temp >100.5 01/14/20 16:35 02/13/20 16:34 Acetaminophen (Tylenol) 650 mg Q4H PRN GT Mild Pain (Pain Scale 1-3) 01/14/20 16:45 02/13/20 16:44 Al Hydroxide/Mg Hydroxide (Mylanta) 30 ml QIDPRN PRN GT stomach upset 01/14/20 16:45 02/13/20 16:44 Artificial Tears (Akwa-Tears) 1 drop EVERY 12 HOURS BOTH EYES 01/14/20 21:00 02/13/20 20:59 01/18/20 20:35 Dextrose (Dextrose 50%) 25 ml Q30M PRN IV Hypoglycemia 01/14/20 16:45 04/13/20 16:44 Dextrose (Dextrose 50%) 50 ml Q30M PRN IV hypoglycemia 01/14/20 16:45 04/13/20 16:44 01/14/20 21:25 Insulin Aspart (NovoLOG) No Dose Q6HR SUBQ 01/14/20 18:00 04/13/20 17:59 01/19/20 05:24 Insulin Detemir (Levemir) 25 units Q12HR SUBQ 01/14/20 21:00 04/13/20 20:59 01/18/20 20:39 Loperamide HCl (Imodium) 2 mg Q4H PRN GT Diarrhea 01/17/20 10:30 02/16/20 10:29 01/19/20 03:30 Metoclopramide HCl (Reglan) 5 mg Q6H IVP 01/17/20 12:00 02/16/20 11:59 01/19/20 05:25 Pantoprazole (Protonix) 40 mg Q12HR IVP 01/14/20 21:00 02/13/20 20:59 01/18/20 20:34 Sodium Bicarbonate 50 ml/ Potassium Chloride 30 meq/ Dextrose 1,065 ml @ 125 mls/hr Q8H32M IV 01/16/20 22:00 02/15/20 21:59 01/19/20 01:17 Sodium Hypochlorite (Dakin's Half Strength) 1 applic DAILY TOPIC 01/15/20 09:00 02/14/20 08:59 01/18/20 08:20 Vancomycin HCl (Firvanq) 125 mg FOUR TIMES A DAY GT 01/14/20 18:00 01/23/20 23:59 01/18/20 20:45 Zinc Sulfate (Zinc Sulfate) 220 mg DAILY GT 01/15/20 09:00 04/14/20 08:59 01/18/20 08:17 Last 24 Hour Vital Signs Date Time Temp Pulse Resp B/P (MAP) Pulse Ox O2 Delivery O2 Flow Rate FiO2 01/19/20 04:00 Mechanical Ventilator 01/19/20 04:00 40 01/19/20 04:00 97.3 63 26 114/54 (74) 99 01/19/20 04:00 63 01/19/20 03:10 63 24 30 01/19/20 00:00 59 01/19/20 00:00 40 01/19/20 00:00 Mechanical Ventilator 01/19/20 00:00 97.3 60 26 100/60 (73) 99 01/18/20 23:15 57 25 30 01/18/20 20:10 60 25 30 01/18/20 20:00 40 01/18/20 20:00 Mechanical Ventilator 01/18/20 20:00 97.7 61 26 113/57 (75) 99 01/18/20 19:31 59 01/18/20 16:00 66 01/18/20 16:00 Mechanical Ventilator 01/18/20 16:00 40 01/18/20 16:00 97.7 65 26 118/65 (82) 99 01/18/20 14:56 65 25 30 01/18/20 12:45 62 01/18/20 12:00 Mechanical Ventilator 01/18/20 12:00 97.2 63 26 129/72 (91) 100 01/18/20 12:00 40 01/18/20 11:02 63 26 30 01/18/20 10:15 96.1 01/18/20 08:41 61 01/18/20 08:00 40 01/18/20 08:00 Mechanical Ventilator 01/18/20 07:55 95.9 61 27 107/58 (74) 100 01/18/20 07:11 60 26 30 01/18/20 04:00 40 01/18/20 04:00 Mechanical Ventilator 01/18/20 04:00 95.9 62 24 116/56 (76) 100 01/18/20 03:51 63 01/18/20 03:03 62 25 30 01/18/20 00:00 98.7 62 24 114/67 (83) 100 01/18/20 00:00 Mechanical Ventilator 01/17/20 23:43 59 01/17/20 23:16 60 27 30 01/17/20 20:00 Mechanical Ventilator 01/17/20 20:00 40 01/17/20 20:00 95.9 61 24 112/61 (78) 100 01/17/20 19:50 61 24 30 01/17/20 19:22 63 01/17/20 16:00 96.8 66 16 137/78 (97) 100 01/17/20 16:00 66 01/17/20 16:00 Mechanical Ventilator 01/17/20 16:00 40 01/17/20 15:33 64 26 30 01/17/20 12:59 96.4 65 20 125/71 (89) 100 01/17/20 12:00 40 01/17/20 12:00 66 01/17/20 12:00 Mechanical Ventilator 01/17/20 11:03 65 24 30 01/17/20 08:00 Mechanical Ventilator 01/17/20 08:00 96.4 72 20 133/70 (91) 100 01/17/20 08:00 64 01/17/20 08:00 40 Intake and Output 01/18/20 01/19/20 19:00 07:00 Intake Total 630 ml 1858 ml Output Total 600 ml Balance 30 ml 1858 ml Intake Free Water 300 ml IV Total 1498 ml Tube Feeding 330 ml 360 ml Output Urine Total 600 ml # Bowel Movements 5 3 Labs Test 01/17/20 03:30 01/18/20 03:47 01/19/20 04:50 White Blood Count 7.5 K/UL (4.8-10.8) 9.9 K/UL (4.8-10.8) Red Blood Count 3.24 M/UL (4.70-6.10) 3.28 M/UL (4.70-6.10) Hemoglobin 9.3 G/DL (14.2-18.0) 9.3 G/DL (14.2-18.0) Hematocrit 26.3 % (42.0-52.0) 27.2 % (42.0-52.0) Mean Corpuscular Volume 81 FL (80-99) 83 FL (80-99) Mean Corpuscular Hemoglobin 28.6 PG (27.0-31.0) 28.2 PG (27.0-31.0) Mean Corpuscular Hemoglobin Concent 35.3 G/DL (32.0-36.0) 34.0 G/DL (32.0-36.0) Red Cell Distribution Width 16.3 % (11.6-14.8) 17.1 % (11.6-14.8) Platelet Count 70 K/UL (150-450) 62 K/UL (150-450) Mean Platelet Volume 13.4 FL (6.5-10.1) 14.1 FL (6.5-10.1) Neutrophils (%) (Auto) % (45.0-75.0) % (45.0-75.0) Lymphocytes (%) (Auto) % (20.0-45.0) % (20.0-45.0) Monocytes (%) (Auto) % (1.0-10.0) % (1.0-10.0) Eosinophils (%) (Auto) % (0.0-3.0) % (0.0-3.0) Basophils (%) (Auto) % (0.0-2.0) % (0.0-2.0) Differential Total Cells Counted 100 100 Neutrophils % (Manual) 79 % (45-75) 72 % (45-75) Lymphocytes % (Manual) 12 % (20-45) 16 % (20-45) Monocytes % (Manual) 8 % (1-10) 7 % (1-10) Eosinophils % (Manual) 1 % (0-3) 4 % (0-3) Basophils % (Manual) 0 % (0-2) 1 % (0-2) Band Neutrophils 0 % (0-8) 0 % (0-8) Platelet Estimate Decreased Decreased Platelet Morphology Normal Giant Platelets Occasional Hypochromasia 1+ 2+ Anisocytosis 1+ 1+ Prothrombin Time 15.9 SEC (9.30-11.50) Prothromb Time International Ratio 1.5 (0.9-1.1) Activated Partial Thromboplast Time 40 SEC (23-33) Sodium Level 138 MMOL/L (136-145) 135 MMOL/L (136-145) 130 MMOL/L (136-145) Potassium Level 3.8 MMOL/L (3.5-5.1) 3.9 MMOL/L (3.5-5.1) 4.5 MMOL/L (3.5-5.1) Chloride Level 104 MMOL/L (98-107) 103 MMOL/L (98-107) 99 MMOL/L (98-107) Carbon Dioxide Level 19 MMOL/L (21-32) 19 MMOL/L (21-32) 19 MMOL/L (21-32) Anion Gap 15 mmol/L (5-15) 13 mmol/L (5-15) 12 mmol/L (5-15) Blood Urea Nitrogen 121 mg/dL (7-18) 119 mg/dL (7-18) 115 mg/dL (7-18) Creatinine 4.5 MG/DL (0.55-1.30) 4.3 MG/DL (0.55-1.30) 4.1 MG/DL (0.55-1.30) Estimat Glomerular Filtration Rate 16.7 mL/min (>60) 17.6 mL/min (>60) 18.5 mL/min (>60) Glucose Level 119 MG/DL (74-106) 251 MG/DL (74-106) 156 MG/DL (74-106) Calcium Level 8.4 MG/DL (8.5-10.1) 8.3 MG/DL (8.5-10.1) 7.7 MG/DL (8.5-10.1) Total Bilirubin 1.6 MG/DL (0.2-1.0) 1.8 MG/DL (0.2-1.0) 2.0 MG/DL (0.2-1.0) Direct Bilirubin 1.3 MG/DL (0.0-0.3) 1.4 MG/DL (0.0-0.3) 1.7 MG/DL (0.0-0.3) Aspartate Amino Transf (AST/SGOT) 929 U/L (15-37) 753 U/L (15-37) 708 U/L (15-37) Alanine Aminotransferase (ALT/SGPT) 462 U/L (12-78) 434 U/L (12-78) 436 U/L (12-78) Alkaline Phosphatase 196 U/L (46-116) 202 U/L (46-116) 193 U/L (46-116) Total Protein 5.2 G/DL (6.4-8.2) 5.0 G/DL (6.4-8.2) 5.1 G/DL (6.4-8.2) Albumin 0.6 G/DL (3.4-5.0) 0.6 G/DL (3.4-5.0) 0.6 G/DL (3.4-5.0) Globulin 4.6 g/dL 4.4 g/dL 4.5 g/dL Albumin/Globulin Ratio 0.1 (1.0-2.7) 0.1 (1.0-2.7) Total Creatine Kinase 44 U/L (26-308) Height (Feet): 5 Height (Inches): 5.00 Weight (Pounds): 189 Objective Physical Exam: Vitals: reviewed General: NAD ++obtunded HEENT: nc, at, mouth guard+ Neck: supple++trach Chest: clear breath sounds bilaterally Cardiovascular: RRR, no s3, s4 Abdomen/GI: soft, nontender, nd ++gtube, rectal tube+ Extremities: no cce, normal range of motion, ++ Spasticity in the left upper extremity. Flaccid on the right. Neuro: nonfocal : skinny+ Wilmer Turner MD Jan 19, 2020 07:24
[2020-01-19] MEDS: Levemir Flexpen SUBQ SCH ×2 (08:10→20:17)
[2020-01-19] MEDS: Pantoprazole Inj IVP SCH ×2 (08:12→20:27)
[2020-01-19] MEDS: Zinc Sulfate 220mg GT SCH (08:12)
[2020-01-19] MEDS: Dakin's 0.25% (Half Strength) 16oz TOPIC SCH (08:12)
[2020-01-19] MEDS: Vancomycin oral 125mg/2.5ml GT SCH ×4 (08:12→20:27)
--- NOTE | 2020-01-19 08:55 | Pulmonology Progress Note ---
Subjective ROS Limited/Unobtainable: Yes Constitutional: Denies: fever Gastrointestinal/Abdominal: Reports: diarrhea Allergies: Coded Allergies: No Known Allergies (Unverified , 10/07/19) All Systems: reviewed and negative except above Subjective care noted on vent no significant improvement renal function poor and not improved Objective Last 24 Hour Vital Signs Date Time Temp Pulse Resp B/P (MAP) Pulse Ox O2 Delivery O2 Flow Rate FiO2 01/19/20 08:00 95.9 57 26 114/69 (84) 99 01/19/20 07:05 58 24 30 01/19/20 04:00 Mechanical Ventilator 01/19/20 04:00 40 01/19/20 04:00 97.3 63 26 114/54 (74) 99 01/19/20 04:00 63 01/19/20 03:10 63 24 30 01/19/20 00:00 59 01/19/20 00:00 40 01/19/20 00:00 Mechanical Ventilator 01/19/20 00:00 97.3 60 26 100/60 (73) 99 01/18/20 23:15 57 25 30 01/18/20 20:10 60 25 30 01/18/20 20:00 40 01/18/20 20:00 Mechanical Ventilator 01/18/20 20:00 97.7 61 26 113/57 (75) 99 01/18/20 19:31 59 01/18/20 16:00 66 01/18/20 16:00 Mechanical Ventilator 01/18/20 16:00 40 01/18/20 16:00 97.7 65 26 118/65 (82) 99 01/18/20 14:56 65 25 30 01/18/20 12:45 62 01/18/20 12:00 Mechanical Ventilator 01/18/20 12:00 97.2 63 26 129/72 (91) 100 01/18/20 12:00 40 01/18/20 11:02 63 26 30 01/18/20 10:15 96.1 Intake and Output 01/18/20 01/19/20 19:00 07:00 Intake Total 630 ml 1858 ml Output Total 600 ml Balance 30 ml 1858 ml Intake Free Water 300 ml IV Total 1498 ml Tube Feeding 330 ml 360 ml Output Urine Total 600 ml # Bowel Movements 5 3 Objective WDWN trach clear breath sounds bilaterally without rhonchi or wheeze [id number] without MRG NABS nontender no HSM no CCE poor LOC reviewed and edited Laboratory Tests 01/19/20 04:50: Sodium Level 130L, Potassium Level 4.5, Chloride Level 99, Carbon Dioxide Level 19L, Anion Gap 12, Blood Urea Nitrogen 115H, Creatinine 4.1H, Estimat Glomerular Filtration Rate 18.5, Glucose Level 156H, Calcium Level 7.7L, Total Bilirubin 2.0H, Direct Bilirubin 1.7H, Aspartate Amino Transf (AST/SGOT) 708H, Alanine Aminotransferase (ALT/SGPT) 436H, Alkaline Phosphatase 193H, Total Creatine Kinase 44, Total Protein 5.1L, Albumin 0.6L, Globulin 4.5 Current Medications Medications (Trade) Dose Ordered Sig/[place] Route PRN Reason Start Time Stop Time Status Last Admin Dose Admin Acetaminophen (Tylenol) 650 mg Q4H PRN GT Temp >100.5 01/14/20 16:35 02/13/20 16:34 Acetaminophen (Tylenol) 650 mg Q4H PRN GT Mild Pain (Pain Scale 1-3) 01/14/20 16:45 02/13/20 16:44 Al Hydroxide/Mg Hydroxide (Mylanta) 30 ml QIDPRN PRN GT stomach upset 01/14/20 16:45 02/13/20 16:44 Artificial Tears (Akwa-Tears) 1 drop EVERY 12 HOURS BOTH EYES 01/14/20 21:00 02/13/20 20:59 01/19/20 08:13 Dextrose (Dextrose 50%) 25 ml Q30M PRN IV Hypoglycemia 01/14/20 16:45 04/13/20 16:44 Dextrose (Dextrose 50%) 50 ml Q30M PRN IV hypoglycemia 01/14/20 16:45 04/13/20 16:44 01/14/20 21:25 Insulin Aspart (NovoLOG) No Dose Q6HR SUBQ 01/14/20 18:00 04/13/20 17:59 01/19/20 05:24 Insulin Detemir (Levemir) 25 units Q12HR SUBQ 01/14/20 21:00 04/13/20 20:59 01/18/20 20:39 Loperamide HCl (Imodium) 2 mg Q4H PRN GT Diarrhea 01/17/20 10:30 02/16/20 10:29 01/19/20 03:30 Metoclopramide HCl (Reglan) 5 mg Q6H IVP 01/17/20 12:00 02/16/20 11:59 01/19/20 05:25 Pantoprazole (Protonix) 40 mg Q12HR IVP 01/14/20 21:00 02/13/20 20:59 01/19/20 08:12 Sodium Bicarbonate 50 ml/ Potassium Chloride 30 meq/ Dextrose 1,065 ml @ 125 mls/hr Q8H32M IV 01/16/20 22:00 02/15/20 21:59 01/19/20 01:17 Sodium Hypochlorite (Dakin's Half Strength) 1 applic DAILY TOPIC 01/15/20 09:00 02/14/20 08:59 01/19/20 08:12 Vancomycin HCl (Firvanq) 125 mg FOUR TIMES A DAY GT 01/14/20 18:00 01/23/20 23:59 01/19/20 08:12 Zinc Sulfate (Zinc Sulfate) 220 mg DAILY GT 01/15/20 09:00 04/14/20 08:59 01/19/20 08:12 Assessment/Plan Assessment/Plan IMPRESSION chronic respiratory failure Acute on chronic renal failure elevated K anemia GIB leukocytosis possible sepsis oral bleeding diarrhea transaminitis PLAN ID , GI and renal clearance HD per renal vent as is monitor vitals hold feeds snf meds full code prognosis very poor for recovery consider dc to snf if all agree; per renal- will await until monday impression, plan, and exam edited and reviewed in detail care discussed with Lorenzo Chase MD Jan 19, 2020 08:55
[2020-01-19] MEDS: 1/2NS w/KCl 20mEq 1000ml 1,000 ML IV SCH ×3 (10:36→23:18)
--- NOTE | 2020-01-19 10:58 | Infectious Diseases Prog Note ---
Assessment/Plan Assessment/Plan A 1. E. coli, Klebsiella & Pseudomonas pneumonia 2. Acute renal failure 3. Ventilator dependent respiratory failure 4. intracranial hemorrhage 5. paraplegia 6. leucocytosis improving 7. GI bleeding 8. Anemia 9. COVID19 test X 2: negative 10- Gangrene of feet 11. Thrombocytopenia P 1. continue PO Vancomycin 2. Poor prognosis Subjective ROS Limited/Unobtainable: Yes Constitutional: Denies: fever Allergies: Coded Allergies: No Known Allergies (Unverified , 10/07/19) Objective Vital Signs Last 24 Hour Vital Signs Date Time Temp Pulse Resp B/P (MAP) Pulse Ox O2 Delivery O2 Flow Rate FiO2 01/19/20 08:00 40 01/19/20 08:00 Mechanical Ventilator 01/19/20 08:00 95.9 57 26 114/69 (84) 99 01/19/20 08:00 53 01/19/20 07:05 58 24 30 01/19/20 04:00 Mechanical Ventilator 01/19/20 04:00 40 01/19/20 04:00 97.3 63 26 114/54 (74) 99 01/19/20 04:00 63 01/19/20 03:10 63 24 30 01/19/20 00:00 59 01/19/20 00:00 40 01/19/20 00:00 Mechanical Ventilator 01/19/20 00:00 97.3 60 26 100/60 (73) 99 01/18/20 23:15 57 25 30 01/18/20 20:10 60 25 30 01/18/20 20:00 40 01/18/20 20:00 Mechanical Ventilator 01/18/20 20:00 97.7 61 26 113/57 (75) 99 01/18/20 19:31 59 01/18/20 16:00 66 01/18/20 16:00 Mechanical Ventilator 01/18/20 16:00 40 01/18/20 16:00 97.7 65 26 118/65 (82) 99 01/18/20 14:56 65 25 30 01/18/20 12:45 62 01/18/20 12:00 Mechanical Ventilator 01/18/20 12:00 97.2 63 26 129/72 (91) 100 01/18/20 12:00 40 01/18/20 11:02 63 26 30 Height (Feet): 5 Height (Inches): 5.00 Weight (Pounds): 189 HEENT: status post trach Respiratory/Chest: lungs clear, other - on ventilator Cardiovascular: bradycardia Abdomen: soft, non tender, other - GT feeding Extremities: other - edema Skin: ulcers, other - gangrene of feet Neurologic/Psychiatric: aphasia Laboratory Tests Test 01/19/20 04:50 Sodium Level 130 MMOL/L (136-145) L Potassium Level 4.5 MMOL/L (3.5-5.1) Chloride Level 99 MMOL/L (98-107) Carbon Dioxide Level 19 MMOL/L (21-32) L Anion Gap 12 mmol/L (5-15) Blood Urea Nitrogen 115 mg/dL (7-18) H Creatinine 4.1 MG/DL (0.55-1.30) H Estimat Glomerular Filtration Rate 18.5 mL/min (>60) Glucose Level 156 MG/DL (74-106) H Calcium Level 7.7 MG/DL (8.5-10.1) L Total Bilirubin 2.0 MG/DL (0.2-1.0) H Direct Bilirubin 1.7 MG/DL (0.0-0.3) H Aspartate Amino Transf (AST/SGOT) 708 U/L (15-37) H Alanine Aminotransferase (ALT/SGPT) 436 U/L (12-78) H Alkaline Phosphatase 193 U/L (46-116) H Total Creatine Kinase 44 U/L (26-308) Total Protein 5.1 G/DL (6.4-8.2) L Albumin 0.6 G/DL (3.4-5.0) L Globulin 4.5 g/dL Current Medications Medications (Trade) Dose Ordered Sig/[place] Route PRN Reason Start Time Stop Time Status Last Admin Dose Admin Acetaminophen (Tylenol) 650 mg Q4H PRN GT Temp >100.5 01/14/20 16:35 02/13/20 16:34 Acetaminophen (Tylenol) 650 mg Q4H PRN GT Mild Pain (Pain Scale 1-3) 01/14/20 16:45 02/13/20 16:44 Al Hydroxide/Mg Hydroxide (Mylanta) 30 ml QIDPRN PRN GT stomach upset 01/14/20 16:45 02/13/20 16:44 Artificial Tears (Akwa-Tears) 1 drop EVERY 12 HOURS BOTH EYES 01/14/20 21:00 02/13/20 20:59 01/19/20 08:13 Dextrose (Dextrose 50%) 25 ml Q30M PRN IV Hypoglycemia 01/14/20 16:45 04/13/20 16:44 Dextrose (Dextrose 50%) 50 ml Q30M PRN IV hypoglycemia 01/14/20 16:45 04/13/20 16:44 01/14/20 21:25 Insulin Aspart (NovoLOG) No Dose Q6HR SUBQ 01/14/20 18:00 04/13/20 17:59 01/19/20 05:24 Insulin Detemir (Levemir) 18 units Q12HR SUBQ 01/19/20 21:00 04/18/20 20:59 Loperamide HCl (Imodium) 2 mg Q4H PRN GT Diarrhea 01/17/20 10:30 02/16/20 10:29 01/19/20 03:30 Metoclopramide HCl (Reglan) 5 mg Q6H IVP 01/17/20 12:00 02/16/20 11:59 01/19/20 05:25 Pantoprazole (Protonix) 40 mg Q12HR IVP 01/14/20 21:00 02/13/20 20:59 01/19/20 08:12 Sodium 1,000 ml @ 150 mls/hr Q6H40M IV 01/19/20 10:30 02/18/20 10:29 01/19/20 10:36 Sodium Hypochlorite (Dakin's Half Strength) 1 applic DAILY TOPIC 01/15/20 09:00 02/14/20 08:59 01/19/20 08:12 Vancomycin HCl (Firvanq) 125 mg FOUR TIMES A DAY GT 01/14/20 18:00 01/23/20 23:59 01/19/20 08:12 Zinc Sulfate (Zinc Sulfate) 220 mg DAILY GT 01/15/20 09:00 04/14/20 08:59 01/19/20 08:12 Anastacio Bustillo MD Jan 19, 2020 10:58
--- NOTE | 2020-01-19 13:29 | Nephrology Progress Note ---
Assessment/Plan Problem List: (1) Respiratory failure (2) ARF (acute renal failure) (3) Hyponatremia (4) Hyperkalemia (5) Upper GI bleed (6) Pressure sore on sacrum (7) Diarrhea (8) Severe malnutrition Plan diarrhea, reorder iv fluids,BUN/creatinine 70/.91 11/2019, enteral hydration , BUN lower enteral fluids reji likely from infection, severe hypoalbuminemia with poor prognosis Subjective ROS Limited/Unobtainable: Yes Objective Objective Last 24 Hour Vital Signs Date Time Temp Pulse Resp B/P (MAP) Pulse Ox O2 Delivery O2 Flow Rate FiO2 01/19/20 12:00 96.4 59 27 138/60 (86) 98 01/19/20 12:00 40 01/19/20 12:00 Mechanical Ventilator 01/19/20 10:50 58 24 30 01/19/20 08:00 40 01/19/20 08:00 Mechanical Ventilator 01/19/20 08:00 95.9 57 26 114/69 (84) 99 01/19/20 08:00 53 01/19/20 07:05 58 24 30 01/19/20 04:00 Mechanical Ventilator 01/19/20 04:00 40 01/19/20 04:00 97.3 63 26 114/54 (74) 99 01/19/20 04:00 63 01/19/20 03:10 63 24 30 01/19/20 00:00 59 01/19/20 00:00 40 01/19/20 00:00 Mechanical Ventilator 01/19/20 00:00 97.3 60 26 100/60 (73) 99 01/18/20 23:15 57 25 30 01/18/20 20:10 60 25 30 01/18/20 20:00 40 01/18/20 20:00 Mechanical Ventilator 01/18/20 20:00 97.7 61 26 113/57 (75) 99 01/18/20 19:31 59 01/18/20 16:00 66 01/18/20 16:00 Mechanical Ventilator 01/18/20 16:00 40 01/18/20 16:00 97.7 65 26 118/65 (82) 99 01/18/20 14:56 65 25 30 Intake and Output 01/18/20 01/19/20 19:00 07:00 Intake Total 630 ml 1858 ml Output Total 600 ml Balance 30 ml 1858 ml Intake Free Water 300 ml IV Total 1498 ml Tube Feeding 330 ml 360 ml Output Urine Total 600 ml # Bowel Movements 5 3 Laboratory Tests 01/19/20 04:50: Sodium Level 130L, Potassium Level 4.5, Chloride Level 99, Carbon Dioxide Level 19L, Anion Gap 12, Blood Urea Nitrogen 115H, Creatinine 4.1H, Estimat Glomerular Filtration Rate 18.5, Glucose Level 156H, Calcium Level 7.7L, Total Bilirubin 2.0H, Direct Bilirubin 1.7H, Aspartate Amino Transf (AST/SGOT) 708H, Alanine Aminotransferase (ALT/SGPT) 436H, Alkaline Phosphatase 193H, Total Creatine Kinase 44, Total Protein 5.1L, Albumin 0.6L, Globulin 4.5 Height (Feet): 5 Height (Inches): 5.00 Weight (Pounds): 189 General Appearance: lethargic, other - on vent Cardiovascular: regular rhythm Respiratory/Chest: rhonchi - bilaterally Abdomen: soft Extremities: trace edema, other - gangrene Neurologic: unresponsive Martin Yee MD Jan 19, 2020 13:29
--- NOTE | 2020-01-19 15:57 | General Progress Note ---
Assessment/Plan Assessment/Plan: Assessment/Plan Assessment/Plan: sepsis anemia GIB thrombocytopenia hyponatremia ARF DM dysphagia with GT Recommendations s/p EGD/PEG GTF reglan>>> decreased to 5 mg add imodium prn ppi repeat LFTS - ? shock liver - check CK - r/o rhabdo - Hold statin - Check CT - ordered will f/u Subjective Allergies: Coded Allergies: No Known Allergies (Unverified , 10/07/19) Subjective Above noted d/w RN tolerating TF no events overnight Objective Last 24 Hour Vital Signs Date Time Temp Pulse Resp B/P (MAP) Pulse Ox O2 Delivery O2 Flow Rate FiO2 01/19/20 12:00 96.4 59 27 138/60 (86) 98 01/19/20 12:00 62 01/19/20 12:00 40 01/19/20 12:00 Mechanical Ventilator 01/19/20 10:50 58 24 30 01/19/20 08:00 40 01/19/20 08:00 Mechanical Ventilator 01/19/20 08:00 95.9 57 26 114/69 (84) 99 01/19/20 08:00 53 01/19/20 07:05 58 24 30 01/19/20 04:00 Mechanical Ventilator 01/19/20 04:00 40 01/19/20 04:00 97.3 63 26 114/54 (74) 99 01/19/20 04:00 63 01/19/20 03:10 63 24 30 01/19/20 00:00 59 01/19/20 00:00 40 01/19/20 00:00 Mechanical Ventilator 01/19/20 00:00 97.3 60 26 100/60 (73) 99 01/18/20 23:15 57 25 30 01/18/20 20:10 60 25 30 01/18/20 20:00 40 01/18/20 20:00 Mechanical Ventilator 01/18/20 20:00 97.7 61 26 113/57 (75) 99 01/18/20 19:31 59 01/18/20 16:00 66 01/18/20 16:00 Mechanical Ventilator 01/18/20 16:00 40 01/18/20 16:00 97.7 65 26 118/65 (82) 99 Intake and Output 01/18/20 01/19/20 19:00 07:00 Intake Total 630 ml 1858 ml Output Total 600 ml Balance 30 ml 1858 ml Intake Free Water 300 ml IV Total 1498 ml Tube Feeding 330 ml 360 ml Output Urine Total 600 ml # Bowel Movements 5 3 Laboratory Tests 01/19/20 04:50: Sodium Level 130L, Potassium Level 4.5, Chloride Level 99, Carbon Dioxide Level 19L, Anion Gap 12, Blood Urea Nitrogen 115H, Creatinine 4.1H, Estimat Glomerular Filtration Rate 18.5, Glucose Level 156H, Calcium Level 7.7L, Total Bilirubin 2.0H, Direct Bilirubin 1.7H, Aspartate Amino Transf (AST/SGOT) 708H, Alanine Aminotransferase (ALT/SGPT) 436H, Alkaline Phosphatase 193H, Total Creatine Kinase 44, Total Protein 5.1L, Albumin 0.6L, Globulin 4.5 Height (Feet): 5 Height (Inches): 5.00 Weight (Pounds): 189 Objective Debilitated coarse BS RR abd soft, ND (+) b// foot dressing Rah Diaz MD Jan 19, 2020 15:57
--- NOTE | 2020-01-19 17:40 | Surgery Progress Note ---
Surgery Progress Note Subjective Procedure Performed right femoral central venous catheter removal Additional Comments comfortable stable no labs no bleeding Objective Last 24 Hour Vital Signs Date Time Temp Pulse Resp B/P (MAP) Pulse Ox O2 Delivery O2 Flow Rate FiO2 01/19/20 16:39 64 01/19/20 16:00 40 01/19/20 16:00 97.0 60 26 144/73 (96) 99 01/19/20 16:00 Mechanical Ventilator 01/19/20 15:05 68 27 30 01/19/20 12:00 96.4 59 27 138/60 (86) 98 01/19/20 12:00 62 01/19/20 12:00 40 01/19/20 12:00 Mechanical Ventilator 01/19/20 10:50 58 24 30 01/19/20 08:00 40 01/19/20 08:00 Mechanical Ventilator 01/19/20 08:00 95.9 57 26 114/69 (84) 99 01/19/20 08:00 53 01/19/20 07:05 58 24 30 01/19/20 04:00 Mechanical Ventilator 01/19/20 04:00 40 01/19/20 04:00 97.3 63 26 114/54 (74) 99 01/19/20 04:00 63 01/19/20 03:10 63 24 30 01/19/20 00:00 59 01/19/20 00:00 40 01/19/20 00:00 Mechanical Ventilator 01/19/20 00:00 97.3 60 26 100/60 (73) 99 01/18/20 23:15 57 25 30 01/18/20 20:10 60 25 30 01/18/20 20:00 40 01/18/20 20:00 Mechanical Ventilator 01/18/20 20:00 97.7 61 26 113/57 (75) 99 01/18/20 19:31 59 I&O Intake and Output 01/18/20 01/19/20 19:00 07:00 Intake Total 630 ml 1858 ml Output Total 600 ml Balance 30 ml 1858 ml Intake Free Water 300 ml IV Total 1498 ml Tube Feeding 330 ml 360 ml Output Urine Total 600 ml # Bowel Movements 5 3 Dressing: other Wound: other Drains: other Cardiovascular: RSR Respiratory: decreased breath sounds Abdomen: soft, present bowel sounds Extremities: no cyanosis Laboratory Tests Test 01/19/20 04:50 Sodium Level 130 MMOL/L (136-145) L Potassium Level 4.5 MMOL/L (3.5-5.1) Chloride Level 99 MMOL/L (98-107) Carbon Dioxide Level 19 MMOL/L (21-32) L Anion Gap 12 mmol/L (5-15) Blood Urea Nitrogen 115 mg/dL (7-18) H Creatinine 4.1 MG/DL (0.55-1.30) H Estimat Glomerular Filtration Rate 18.5 mL/min (>60) Glucose Level 156 MG/DL (74-106) H Calcium Level 7.7 MG/DL (8.5-10.1) L Total Bilirubin 2.0 MG/DL (0.2-1.0) H Direct Bilirubin 1.7 MG/DL (0.0-0.3) H Aspartate Amino Transf (AST/SGOT) 708 U/L (15-37) H Alanine Aminotransferase (ALT/SGPT) 436 U/L (12-78) H Alkaline Phosphatase 193 U/L (46-116) H Total Creatine Kinase 44 U/L (26-308) Total Protein 5.1 G/DL (6.4-8.2) L Albumin 0.6 G/DL (3.4-5.0) L Globulin 4.5 g/dL Plan Problems: (1) Hyponatremia (2) ARF (acute renal failure) (3) Hyperkalemia (4) Pressure sore on sacrum Assessment & Plan: Pt presented on admission with Sacral Pressure injury and Necrosis Both Both R lower ext, R foot and L foot. Generalized edema noted. Both upper ext noted to have multiple serous blisters ,some of which are weeping serous exudate. Full thickness Sacral Pressure Injury with undermined Borders. Base of wound is 75% loose necrotic tissue,25% bree. Bone exposure at base of wound. Area of necrosis noted at distal aspect of wound in space between wound and anus.Edges are macerated. Wound is malodorous.(L)9.5cm x (W)9.2cm x (D)2.9cm,undermining clockwise 10-3 by 3.8cm @12 o'clock. Scattered areas of hyperpigmentation noted to R and L clefts of buttocks. Unable to determine exudate as pt is continuously oozing large amt of semi soft black stool and leaking into wound because of close proximity to his rectum. At upper, R gluteal cheek is additional Pressure Injury with small amt Biofilm at base of wound. Edges are pink and adherent to base of wound. No exudate noted.(L)3cm x (W)2.6cm. Medially to distal Tibia,and extending to R foot is necrotic and malodorous.Wound is partially opened at posterior R tibia but is dry . L foot is necrotic and malodorous. No exudate noted. Tx.Plan: Cleanse Sacral wound with Dakin's 0.25% archana.. Loosely Pack wound with Dakin's moistened Kerlix.Apply Moisture Barrier Paste periwound.Cover with Optifoam drsg.Change Daily and PRN. Cleanse R lower ext and R foot with Dakin's 0.25% Archana. Cover wounds with ABD Pads.Wrap with Kerlix Daily and prn. Cleanse L foot Wounds with Dakin's 0.25% Archana. Cover wounds with ABD Pads and wrap with Kerlix Daily and prn. (5) Upper GI bleed Assessment & Plan: Patient with sepsis, abnormal labs, GI bleed, pending COVID eval. Labs noted. Exam reviewed. Chest x-ray noted as below. Discussed with GI. Plan for endoscopy once COVID status evaluated. Trend hemoglobin for now transfuse PRN. G-tube is functional and okay for medications and will plan tube feeds accordingly. No acute surgical intervention as patient is actively bleeding. Proton pump inhibitor recommended and Rx as written. Will follow with recommendations thank you for let me participate in patient's care plt low anemia prognosis guarded no active GI bleeding noted Status post PEG Tolerating tube feeds but still having diarrhea Difficult with rectal tube slides right out likely from spinal injury Anasarca stable No active bleeding line Free currently will monitor closely There is a tracheostomy in place. Vascularity is normal. Hazy densities in the lung bases may be layering effusions. Cardiac and mediastinal silhouette are within normal limits. The bony thorax appear unremarkable. line removed will monitor for bleeding IMPRESSION: Bibasilar hazy densities perhaps layering effusions. right fem line not functional noted manipulation as suture was dislodged. line replaced 1. Two or three gastric AVMs. 2. Ulcer with a small visible vessel, status post gold probe bipolar cauterization. DAILY ESTIMATED NEEDS: Needs based on Critical Care, Wounds, TR / 61kg 25-30 kcals/kg 1406-8280 total kcals 0.8-1.25 (increase w/ renal improvement) g protein/kg 49-76 g total protein 25-30 mL/kg 7403-5828 total fluid mLs NUTRITION DIAGNOSIS: * Swallowing difficulty R/T respiratory status, dysphagia as evidenced by trach/vent dep, PEG dep. * Increased kcal/prot intake needs R/T wound healing as evidenced by admitted w/ multiple wounds including full thickness wound @ sacrum, pressure Injury with small amt Biofilm at base of wound @ upper R gluteal cheek, necrotic wound @ medial to distal Tibia,and extending to R foot and L foot * Altered nutrition related lab R/T TR as evidenced by elev BUN (215-> 134), elev creat (5.2->4.3), low Na (124 -> wnl), elev K (6.7 -> wnl) CURRENT TF:TF HELD ENTERAL NUTRITION RECOMMENDATIONS: Nepro @ 38ml/hr x 24 hrs to provide 912ml, 1642kcal, 74g prot, 663ml free water * Once medically appropriate to feed, initiate TF -> rec Nepro at this time given TR (Creat 5.2 -> 4.3) w/ elev K upon adm * Initiate Nepro @ 18ml/hr x 6hrs, advance 10ml q 4-6 hrs as tolerated to goal rate * HOB over 30 degrees/ water flush per MD Monitor renal fxn closely, need to continue renal TF formula ADDITIONAL RECOMMENDATIONS: * Per SNF: HT=62" WT= 135lbs (12/25/19) * Monitor renal fxn and lytes (slowly improving renal fxn) * Monitor ability to resume TF- TF holding cont to be needed, consider initiating parenteral nutrition * Wound healing: add Ajay BID w/ TF order * Monitor for hypoglycemia: rec to hold ALL insulin while pt is NPO Javid Singh Jan 19, 2020 17:40
[2020-01-20 04:00] VITALS: BP 110/84
[2020-01-20] MEDS: Insulin NovoLOG Flexpen S/S (Mod) SUBQ SCH ×4 (05:00→23:22)
[2020-01-20] MEDS: 1/2NS w/KCl 20mEq 1000ml 1,000 ML IV SCH (05:03)
[2020-01-20] MEDS: Metoclopramide 10mg/2ml Inj IVP SCH ×4 (05:04→23:23)
--- NOTE | 2020-01-20 06:24 | General Progress Note ---
Assessment/Plan Assessment/Plan: sepsis anemia GIB thrombocytopenia hyponatremia ARF DM dysphagia with GT s/p EGD/PEG GTF reglan imodium prn ppi repeat LFTS>>> ? shock liver>>>stable dc tylenol fu abd CT decrease protonix to daily will fu Subjective ROS Limited/Unobtainable: No Allergies: Coded Allergies: No Known Allergies (Unverified , 10/07/19) Objective Last 24 Hour Vital Signs Date Time Temp Pulse Resp B/P (MAP) Pulse Ox O2 Delivery O2 Flow Rate FiO2 01/20/20 04:00 40 01/20/20 04:00 98.1 96 22 110/84 (93) 100 01/20/20 04:00 Mechanical Ventilator 01/20/20 04:00 58 01/20/20 03:33 74 25 30 01/20/20 00:00 40 01/20/20 00:00 63 01/20/20 00:00 Mechanical Ventilator 01/19/20 23:50 97.8 74 22 107/69 (82) 100 01/19/20 22:38 78 27 30 01/19/20 20:00 63 01/19/20 20:00 40 01/19/20 20:00 Mechanical Ventilator 01/19/20 20:00 97.3 85 22 114/86 (95) 99 01/19/20 19:19 67 28 30 01/19/20 16:39 64 01/19/20 16:00 40 01/19/20 16:00 97.0 60 26 144/73 (96) 99 01/19/20 16:00 Mechanical Ventilator 01/19/20 15:05 68 27 30 01/19/20 12:00 96.4 59 27 138/60 (86) 98 01/19/20 12:00 62 01/19/20 12:00 40 01/19/20 12:00 Mechanical Ventilator 01/19/20 10:50 58 24 30 01/19/20 08:00 40 01/19/20 08:00 Mechanical Ventilator 01/19/20 08:00 95.9 57 26 114/69 (84) 99 01/19/20 08:00 53 01/19/20 07:05 58 24 30 Intake and Output 01/19/20 01/20/20 19:00 07:00 Intake Total 810 ml 1995 ml Output Total 350 ml 600 ml Balance 460 ml 1395 ml Intake Free Water 300 ml 300 ml IV Total 150 ml 1545 ml Tube Feeding 360 ml 150 ml Output Urine Total 350 ml 600 ml # Bowel Movements 1 1 Laboratory Tests 01/20/20 05:00: Sodium Level [Pending], Potassium Level [Pending], Chloride Level [Pending], Carbon Dioxide Level [Pending], Blood Urea Nitrogen [Pending], Creatinine [ Pending], Estimat Glomerular Filtration Rate [Pending], Glucose Level [Pending] , Calcium Level [Pending], Total Bilirubin [Pending], Aspartate Amino Transf ( AST/SGOT) [Pending], Alanine Aminotransferase (ALT/SGPT) [Pending], Alkaline Phosphatase [Pending], Total Protein [Pending], Albumin [Pending], Globulin [ Pending] Height (Feet): 5 Height (Inches): 5.00 Weight (Pounds): 189 General Appearance: no apparent distress EENT: normal ENT inspection Neck: supple Cardiovascular: normal rate Respiratory/Chest: decreased breath sounds Abdomen: normal bowel sounds, non tender, soft Extremities: non-tender Toni Mckenzie MD Jan 20, 2020 06:24
[2020-01-20 08:00] VITALS: BP 114/69
--- NOTE | 2020-01-20 08:13 | Pulmonology Progress Note ---
Subjective ROS Limited/Unobtainable: Yes Constitutional: Denies: fever Gastrointestinal/Abdominal: Reports: diarrhea Allergies: Coded Allergies: No Known Allergies (Unverified , 10/07/19) All Systems: reviewed and negative except above Subjective care noted on vent no significant improvement renal function poor labs noted Objective Last 24 Hour Vital Signs Date Time Temp Pulse Resp B/P (MAP) Pulse Ox O2 Delivery O2 Flow Rate FiO2 01/20/20 07:18 75 24 30 01/20/20 04:00 40 01/20/20 04:00 98.1 96 22 110/84 (93) 100 01/20/20 04:00 Mechanical Ventilator 01/20/20 04:00 58 01/20/20 03:33 74 25 30 01/20/20 00:00 40 01/20/20 00:00 63 01/20/20 00:00 Mechanical Ventilator 01/19/20 23:50 97.8 74 22 107/69 (82) 100 01/19/20 22:38 78 27 30 01/19/20 20:00 63 01/19/20 20:00 40 01/19/20 20:00 Mechanical Ventilator 01/19/20 20:00 97.3 85 22 114/86 (95) 99 01/19/20 19:19 67 28 30 01/19/20 16:39 64 01/19/20 16:00 40 01/19/20 16:00 97.0 60 26 144/73 (96) 99 01/19/20 16:00 Mechanical Ventilator 01/19/20 15:05 68 27 30 01/19/20 12:00 96.4 59 27 138/60 (86) 98 01/19/20 12:00 62 01/19/20 12:00 40 01/19/20 12:00 Mechanical Ventilator 01/19/20 10:50 58 24 30 Intake and Output 01/19/20 01/20/20 19:00 07:00 Intake Total 810 ml 1995 ml Output Total 350 ml 600 ml Balance 460 ml 1395 ml Intake Free Water 300 ml 300 ml IV Total 150 ml 1545 ml Tube Feeding 360 ml 150 ml Output Urine Total 350 ml 600 ml # Bowel Movements 1 1 Objective WDWN trach clear breath sounds bilaterally without rhonchi or wheeze [id number] without MRG NABS nontender no HSM no CCE poor LOC reviewed and edited Laboratory Tests 01/20/20 05:00: Sodium Level [Pending], Potassium Level [Pending], Chloride Level [Pending], Carbon Dioxide Level [Pending], Blood Urea Nitrogen [Pending], Creatinine [ Pending], Estimat Glomerular Filtration Rate [Pending], Glucose Level [Pending] , Calcium Level [Pending], Total Bilirubin [Pending], Aspartate Amino Transf ( AST/SGOT) [Pending], Alanine Aminotransferase (ALT/SGPT) [Pending], Alkaline Phosphatase [Pending], Total Protein [Pending], Albumin [Pending], Globulin [ Pending] Current Medications Medications (Trade) Dose Ordered Sig/[place] Route PRN Reason Start Time Stop Time Status Last Admin Dose Admin Al Hydroxide/Mg Hydroxide (Mylanta) 30 ml QIDPRN PRN GT stomach upset 01/14/20 16:45 02/13/20 16:44 Artificial Tears (Akwa-Tears) 1 drop EVERY 12 HOURS BOTH EYES 01/14/20 21:00 02/13/20 20:59 01/19/20 20:26 Barium Sulfate (Readi-Cat 2) 450 ml NOW PRN ORAL Radiology Procedure 01/19/20 16:00 01/21/20 15:52 Dextrose (Dextrose 50%) 25 ml Q30M PRN IV Hypoglycemia 01/14/20 16:45 04/13/20 16:44 Dextrose (Dextrose 50%) 50 ml Q30M PRN IV hypoglycemia 01/14/20 16:45 04/13/20 16:44 01/14/20 21:25 Insulin Aspart (NovoLOG) No Dose Q6HR SUBQ 01/14/20 18:00 04/13/20 17:59 01/19/20 05:24 Insulin Detemir (Levemir) 18 units Q12HR SUBQ 01/19/20 21:00 04/18/20 20:59 Loperamide HCl (Imodium) 2 mg Q4H PRN ORAL Diarrhea 01/19/20 16:00 02/16/20 10:29 Metoclopramide HCl (Reglan) 5 mg Q6H IVP 01/17/20 12:00 02/16/20 11:59 01/20/20 05:04 Pantoprazole (Protonix) 40 mg DAILY IVP 01/20/20 09:00 02/19/20 08:59 Sodium 1,000 ml @ 150 mls/hr Q6H40M IV 01/19/20 10:30 02/18/20 10:29 01/20/20 05:03 Sodium Hypochlorite (Dakin's Half Strength) 1 applic DAILY TOPIC 01/15/20 09:00 02/14/20 08:59 01/19/20 08:12 Vancomycin HCl (Firvanq) 125 mg FOUR TIMES A DAY GT 01/14/20 18:00 01/23/20 23:59 01/19/20 20:27 Zinc Sulfate (Zinc Sulfate) 220 mg DAILY GT 01/15/20 09:00 04/14/20 08:59 01/19/20 08:12 Assessment/Plan Assessment/Plan IMPRESSION chronic respiratory failure Acute on chronic renal failure elevated K anemia GIB leukocytosis possible sepsis oral bleeding diarrhea transaminitis PLAN ID , GI and renal clearance vent as is monitor vitals hold feeds snf meds full code prognosis very poor for recovery consider dc to snf impression, plan, and exam edited and reviewed in detail care discussed with Lorenzo Chase MD Jan 20, 2020 08:13
[2020-01-20] MEDS: Levemir Flexpen SUBQ SCH ×2 (09:00→20:45)
[2020-01-20] MEDS: Zinc Sulfate 220mg GT SCH (09:11)
[2020-01-20] MEDS: Pantoprazole Inj IVP SCH (09:11)
[2020-01-20] MEDS: Dakin's 0.25% (Half Strength) 16oz TOPIC SCH (09:12)
[2020-01-20] MEDS: D5NS 1,000 ML IV SCH ×3 (09:24→20:46)
[2020-01-20 09:50] LABS: HEMATOCRIT 24.7 % (42.0-52.0); HEMOGLOBIN 8.5 G/DL (14.2-18.0); MEAN CORPUSCULAR VOLUME 84 FL (80-99); PLATELET COUNT 90 K/UL (150-450); RED BLOOD COUNT 2.93 M/UL (4.70-6.10); RED CELL DISTRIBUTION WIDTH 17.8 % (11.6-14.8); WHITE BLOOD COUNT 15.1 K/UL (4.8-10.8)
[2020-01-20 10:06] LABS: ALANINE AMINOTRANSFERASE 396 U/L (12-78); ALKALINE PHOSPHATASE 191 U/L (46-116); ANION GAP 13 mmol/L (5-15); ASPARTATE AMINO TRANSFERASE 679 U/L (15-37); BILIRUBIN,TOTAL 1.9 MG/DL (0.2-1.0); BLOOD UREA NITROGEN 109 mg/dL (7-18); CALCIUM 7.3 MG/DL (8.5-10.1); CARBON DIOXIDE 16 MMOL/L (21-32); CHLORIDE 100 MMOL/L (98-107); CREATININE 3.9 MG/DL (0.55-1.30); POTASSIUM 5.3 MMOL/L (3.5-5.1); SODIUM 129 MMOL/L (136-145)
[2020-01-20 10:07] LABS: BILIRUBIN,DIRECT 1.8 MG/DL (0.0-0.3)
[2020-01-20 10:13] LABS: ALBUMIN 0.6 G/DL (3.4-5.0)
[2020-01-20] MEDS: Vancomycin oral 125mg/2.5ml GT SCH ×4 (10:31→20:46)
[2020-01-20 11:15] VITALS: BP 115/70
--- NOTE | 2020-01-20 11:48 | Hematology/Onc Progress Note ---
Assessment/Plan Assessment/Plan Assessment and recs # Thrombocytopenia - potential causes multifactorial, evaluate liver and viral etiologies to begin, also could be related to underlying medications patient has received. May be due to DIC in this case, or consumption --> Hep panel and HIV negative --> US abd to evaluate for cirrhosis and hsm --> neg for cirrhosis and hsm --> Peripheral smear ordered to evaluate for blasts /schistocytes --> abx and other meds have been reviewed --> ok for ppx if plt >50k w/ either heparin or lovenox --> Transfuse if Plt < 20k and fever, or if Plt < 10k without fever --> plt trend 41-->32-->21k-->20 -->61k-->45-->62-->51->38->55->50->70->90 --> plt transfusion 01/04 --> for sepsis is on abx # Anemia due to Upper GI bleed, hematuria --> no evidence of hemolysis is noted --> smear noted --> anemia panel reviewed, ferritin high --> no iron or epo needed --> po iron ok --> for hematuria as per urology --> Pending endoscopy when clear from covid19 --> hgb trend: 9.1 ->8.3->6.9-->8.1-->8.3-->7.6 -->6.6-->10.5-->9.8-->9.3->8.5 --> prbc: 2 units 01/02, 01/12 # Leukocytosis due to e/coli/kleb pna --> on connor/wilma--> vanc --> wbc trend 23-->32-->17.1-->13.9-->10-->15 # Hyperkalemia --> kayxelate as needed --> k trend # ARF (acute renal failure) --> per renal # Hyponatremia # Gram negative pneumonia # Ventilator dependent respiratory failure # intracranial hemorrhage # paraplegia # Dysphagia with gtube The timing of this note does not necessarily reflect the time of the patient was seen. Greatly appreciate consultation. Subjective Allergies: Coded Allergies: No Known Allergies (Unverified , 10/07/19) All Systems: reviewed and negative except above Subjective 01/03obtunded, s/p rbc x2, hgb improved to 9.1, us abd reviewed, hematuria+ 01/04 plt are better, got 1 unit pf platets today as well, plt now 61k, less gi bleed overnight, some black tarry stool noted 01/05 nv, labs noted, hgb 8.5, no hemolysis noted, no bleeding, plt 83, egd tomorrow 01/06 egd for this am, results are pending, labs noted 01/09 no major changes, labs noted, no bleeding wbc higher, on abx 01/10 sdu, wbc improving, inr 1.4, vent, h/h stable, no distress 01/11 hgb 7.6, no tx required, repeat cbc for tomorrow, on vent 01/12 remains on vent, hgb 6.6, getting 2 iunits prbc today, will need picc 01/13 trach to vent, nepro feeds ongoing, hgb improved 10.5 01/14 s/p egd w/ peg, rectal tube, no acute events, h/h stable 01/15 remains obtunded, minimal blood in stool, will hold off on platelet administration 01/16 labs noted, nob leeding, meds reviewed, plt higher 01/18 sdu, nonverbal, no acute events, vent, vanc 01/19 remains on vent, with po vanc, wbc higher as is plt Objective Objective Current Medications Medications (Trade) Dose Ordered Sig/[place] Route PRN Reason Start Time Stop Time Status Last Admin Dose Admin Al Hydroxide/Mg Hydroxide (Mylanta) 30 ml QIDPRN PRN GT stomach upset 01/14/20 16:45 02/13/20 16:44 Artificial Tears (Akwa-Tears) 1 drop EVERY 12 HOURS BOTH EYES 01/14/20 21:00 02/13/20 20:59 01/20/20 09:10 Barium Sulfate (Readi-Cat 2) 450 ml NOW PRN ORAL Radiology Procedure 01/19/20 16:00 01/21/20 15:52 Dextrose (Dextrose 50%) 25 ml Q30M PRN IV Hypoglycemia 01/14/20 16:45 04/13/20 16:44 01/20/20 09:08 Dextrose (Dextrose 50%) 50 ml Q30M PRN IV hypoglycemia 01/14/20 16:45 04/13/20 16:44 01/14/20 21:25 Dextrose/Sodium Chloride 1,000 ml @ 150 mls/hr Q6H40M IV 01/20/20 09:30 02/19/20 09:29 01/20/20 09:24 Insulin Aspart (NovoLOG) No Dose Q6HR SUBQ 01/14/20 18:00 04/13/20 17:59 01/19/20 05:24 Insulin Detemir (Levemir) 18 units Q12HR SUBQ 01/19/20 21:00 04/18/20 20:59 Loperamide HCl (Imodium) 2 mg Q4H PRN ORAL Diarrhea 01/19/20 16:00 02/16/20 10:29 Metoclopramide HCl (Reglan) 5 mg Q6H IVP 01/17/20 12:00 02/16/20 11:59 01/20/20 11:21 Pantoprazole (Protonix) 40 mg DAILY IVP 01/20/20 09:00 02/19/20 08:59 01/20/20 09:11 Sodium Hypochlorite (Dakin's Half Strength) 1 applic DAILY TOPIC 01/15/20 09:00 02/14/20 08:59 01/20/20 09:12 Vancomycin HCl (Firvanq) 125 mg FOUR TIMES A DAY GT 01/14/20 18:00 01/23/20 23:59 01/20/20 10:31 Zinc Sulfate (Zinc Sulfate) 220 mg DAILY GT 01/15/20 09:00 04/14/20 08:59 01/20/20 09:11 Last 24 Hour Vital Signs Date Time Temp Pulse Resp B/P (MAP) Pulse Ox O2 Delivery O2 Flow Rate FiO2 01/20/20 11:15 95.9 58 20 115/70 (85) 100 01/20/20 11:00 60 24 30 01/20/20 07:18 75 24 30 01/20/20 04:00 40 01/20/20 04:00 98.1 96 22 110/84 (93) 100 01/20/20 04:00 Mechanical Ventilator 01/20/20 04:00 58 01/20/20 03:33 74 25 30 01/20/20 00:00 40 01/20/20 00:00 63 01/20/20 00:00 Mechanical Ventilator 01/19/20 23:50 97.8 74 22 107/69 (82) 100 01/19/20 22:38 78 27 30 01/19/20 20:00 63 01/19/20 20:00 40 01/19/20 20:00 Mechanical Ventilator 01/19/20 20:00 97.3 85 22 114/86 (95) 99 01/19/20 19:19 67 28 30 01/19/20 16:39 64 01/19/20 16:00 40 01/19/20 16:00 97.0 60 26 144/73 (96) 99 01/19/20 16:00 Mechanical Ventilator 01/19/20 15:05 68 27 30 01/19/20 12:00 96.4 59 27 138/60 (86) 98 01/19/20 12:00 62 01/19/20 12:00 40 01/19/20 12:00 Mechanical Ventilator 01/19/20 10:50 58 24 30 01/19/20 08:00 40 01/19/20 08:00 Mechanical Ventilator 01/19/20 08:00 95.9 57 26 114/69 (84) 99 01/19/20 08:00 53 01/19/20 07:05 58 24 30 01/19/20 04:00 Mechanical Ventilator 01/19/20 04:00 40 01/19/20 04:00 97.3 63 26 114/54 (74) 99 01/19/20 04:00 63 01/19/20 03:10 63 24 30 01/19/20 00:00 59 01/19/20 00:00 40 01/19/20 00:00 Mechanical Ventilator 01/19/20 00:00 97.3 60 26 100/60 (73) 99 01/18/20 23:15 57 25 30 01/18/20 20:10 60 25 30 01/18/20 20:00 40 01/18/20 20:00 Mechanical Ventilator 01/18/20 20:00 97.7 61 26 113/57 (75) 99 01/18/20 19:31 59 01/18/20 16:00 66 01/18/20 16:00 Mechanical Ventilator 01/18/20 16:00 40 01/18/20 16:00 97.7 65 26 118/65 (82) 99 01/18/20 14:56 65 25 30 01/18/20 12:45 62 01/18/20 12:00 Mechanical Ventilator 01/18/20 12:00 97.2 63 26 129/72 (91) 100 01/18/20 12:00 40 Intake and Output 01/19/20 01/20/20 19:00 07:00 Intake Total 810 ml 1995 ml Output Total 350 ml 600 ml Balance 460 ml 1395 ml Intake Free Water 300 ml 300 ml IV Total 150 ml 1545 ml Tube Feeding 360 ml 150 ml Output Urine Total 350 ml 600 ml # Bowel Movements 1 1 Labs Test 01/18/20 03:47 01/19/20 04:50 01/20/20 09:26 White Blood Count 9.9 K/UL (4.8-10.8) 15.1 K/UL (4.8-10.8) Red Blood Count 3.28 M/UL (4.70-6.10) 2.93 M/UL (4.70-6.10) Hemoglobin 9.3 G/DL (14.2-18.0) 8.5 G/DL (14.2-18.0) Hematocrit 27.2 % (42.0-52.0) 24.7 % (42.0-52.0) Mean Corpuscular Volume 83 FL (80-99) 84 FL (80-99) Mean Corpuscular Hemoglobin 28.2 PG (27.0-31.0) 29.0 PG (27.0-31.0) Mean Corpuscular Hemoglobin Concent 34.0 G/DL (32.0-36.0) 34.5 G/DL (32.0-36.0) Red Cell Distribution Width 17.1 % (11.6-14.8) 17.8 % (11.6-14.8) Platelet Count 62 K/UL (150-450) 90 K/UL (150-450) Mean Platelet Volume 14.1 FL (6.5-10.1) 16.4 FL (6.5-10.1) Neutrophils (%) (Auto) % (45.0-75.0) % (45.0-75.0) Lymphocytes (%) (Auto) % (20.0-45.0) % (20.0-45.0) Monocytes (%) (Auto) % (1.0-10.0) % (1.0-10.0) Eosinophils (%) (Auto) % (0.0-3.0) % (0.0-3.0) Basophils (%) (Auto) % (0.0-2.0) % (0.0-2.0) Differential Total Cells Counted 100 100 Neutrophils % (Manual) 72 % (45-75) 83 % (45-75) Lymphocytes % (Manual) 16 % (20-45) 6 % (20-45) Monocytes % (Manual) 7 % (1-10) 9 % (1-10) Eosinophils % (Manual) 4 % (0-3) 2 % (0-3) Basophils % (Manual) 1 % (0-2) 0 % (0-2) Band Neutrophils 0 % (0-8) 0 % (0-8) Platelet Estimate Decreased Decreased Platelet Morphology Normal Normal Hypochromasia 2+ Anisocytosis 1+ 1+ Sodium Level 135 MMOL/L (136-145) 130 MMOL/L (136-145) 129 MMOL/L (136-145) Potassium Level 3.9 MMOL/L (3.5-5.1) 4.5 MMOL/L (3.5-5.1) 5.3 MMOL/L (3.5-5.1) Chloride Level 103 MMOL/L (98-107) 99 MMOL/L (98-107) 100 MMOL/L (98-107) Carbon Dioxide Level 19 MMOL/L (21-32) 19 MMOL/L (21-32) 16 MMOL/L (21-32) Anion Gap 13 mmol/L (5-15) 12 mmol/L (5-15) 13 mmol/L (5-15) Blood Urea Nitrogen 119 mg/dL (7-18) 115 mg/dL (7-18) 109 mg/dL (7-18) Creatinine 4.3 MG/DL (0.55-1.30) 4.1 MG/DL (0.55-1.30) 3.9 MG/DL (0.55-1.30) Estimat Glomerular Filtration Rate 17.6 mL/min (>60) 18.5 mL/min (>60) 19.8 mL/min (>60) Glucose Level 251 MG/DL (74-106) 156 MG/DL (74-106) 167 MG/DL (74-106) Calcium Level 8.3 MG/DL (8.5-10.1) 7.7 MG/DL (8.5-10.1) 7.3 MG/DL (8.5-10.1) Total Bilirubin 1.8 MG/DL (0.2-1.0) 2.0 MG/DL (0.2-1.0) 1.9 MG/DL (0.2-1.0) Direct Bilirubin 1.4 MG/DL (0.0-0.3) 1.7 MG/DL (0.0-0.3) 1.8 MG/DL (0.0-0.3) Aspartate Amino Transf (AST/SGOT) 753 U/L (15-37) 708 U/L (15-37) 679 U/L (15-37) Alanine Aminotransferase (ALT/SGPT) 434 U/L (12-78) 436 U/L (12-78) 396 U/L (12-78) Alkaline Phosphatase 202 U/L (46-116) 193 U/L (46-116) 191 U/L (46-116) Total Protein 5.0 G/DL (6.4-8.2) 5.1 G/DL (6.4-8.2) 4.4 G/DL (6.4-8.2) Albumin 0.6 G/DL (3.4-5.0) 0.6 G/DL (3.4-5.0) 0.6 G/DL (3.4-5.0) Globulin 4.4 g/dL 4.5 g/dL 3.8 g/dL Albumin/Globulin Ratio 0.1 (1.0-2.7) Total Creatine Kinase 44 U/L (26-308) Height (Feet): 5 Height (Inches): 5.00 Weight (Pounds): 194 Objective Physical Exam: Vitals: reviewed General: NAD ++obtunded HEENT: nc, at, mouth guard+ Neck: supple++trach Chest: clear breath sounds bilaterally Cardiovascular: RRR, no s3, s4 Abdomen/GI: soft, nontender, nd ++gtube, rectal tube+ Extremities: no cce, normal range of motion, ++ Spasticity in the left upper extremity. Flaccid on the right. Neuro: nonfocal : skinny+ Wilmer Turner MD Jan 20, 2020 11:48
--- NOTE | 2020-01-20 11:58 | Infectious Diseases Prog Note ---
"Assessment/Plan Assessment/Plan antibiotics : po vancomycin 5.29.20 - A 1. e.coli | klebsiella | pseudomonas pneumonia s/p rx 2. renal failure 3. respiratory failure 4. intracranial hemorrhage 5. paraplegia 6. leucocytosis increased 7. COVID 19 test negative x 2 8. gangrene of feet bilaterally P 1. continue po vancomycin 3 more days 2. will follow up cultures Subjective ROS Limited/Unobtainable: Yes Allergies: Coded Allergies: No Known Allergies (Unverified , 10/07/19) Objective Vital Signs Last 24 Hour Vital Signs Date Time Temp Pulse Resp B/P (MAP) Pulse Ox O2 Delivery O2 Flow Rate FiO2 01/20/20 11:15 95.9 58 20 115/70 (85) 100 01/20/20 11:00 60 24 30 01/20/20 07:18 75 24 30 01/20/20 04:00 40 01/20/20 04:00 98.1 96 22 110/84 (93) 100 01/20/20 04:00 Mechanical Ventilator 01/20/20 04:00 58 01/20/20 03:33 74 25 30 01/20/20 00:00 40 01/20/20 00:00 63 01/20/20 00:00 Mechanical Ventilator 01/19/20 23:50 97.8 74 22 107/69 (82) 100 01/19/20 22:38 78 27 30 01/19/20 20:00 63 01/19/20 20:00 40 01/19/20 20:00 Mechanical Ventilator 01/19/20 20:00 97.3 85 22 114/86 (95) 99 01/19/20 19:19 67 28 30 01/19/20 16:39 64 01/19/20 16:00 40 01/19/20 16:00 97.0 60 26 144/73 (96) 99 01/19/20 16:00 Mechanical Ventilator 01/19/20 15:05 68 27 30 01/19/20 12:00 96.4 59 27 138/60 (86) 98 01/19/20 12:00 62 01/19/20 12:00 40 01/19/20 12:00 Mechanical Ventilator Height (Feet): 5 Height (Inches): 5.00 Weight (Pounds): 194 HEENT: status post trach Respiratory/Chest: lungs clear Cardiovascular: normal rate, regular rhythm, no gallop/murmur Abdomen: soft, non tender Extremities: other - + edema, necrotic feet bilaterally Laboratory Tests Test 01/20/20 09:26 White Blood Count 15.1 K/UL (4.8-10.8) H Red Blood Count 2.93 M/UL (4.70-6.10) L Hemoglobin 8.5 G/DL (14.2-18.0) L Hematocrit 24.7 % (42.0-52.0) L Mean Corpuscular Volume 84 FL (80-99) Mean Corpuscular Hemoglobin 29.0 PG (27.0-31.0) Mean Corpuscular Hemoglobin Concent 34.5 G/DL (32.0-36.0) Red Cell Distribution Width 17.8 % (11.6-14.8) H Platelet Count 90 K/UL (150-450) L Mean Platelet Volume 16.4 FL (6.5-10.1) H Neutrophils (%) (Auto) % (45.0-75.0) Lymphocytes (%) (Auto) % (20.0-45.0) Monocytes (%) (Auto) % (1.0-10.0) Eosinophils (%) (Auto) % (0.0-3.0) Basophils (%) (Auto) % (0.0-2.0) Differential Total Cells Counted 100 Neutrophils % (Manual) 83 % (45-75) H Lymphocytes % (Manual) 6 % (20-45) L Monocytes % (Manual) 9 % (1-10) Eosinophils % (Manual) 2 % (0-3) Basophils % (Manual) 0 % (0-2) Band Neutrophils 0 % (0-8) Platelet Estimate Decreased L Platelet Morphology Normal Anisocytosis 1+ Sodium Level 129 MMOL/L (136-145) L Potassium Level 5.3 MMOL/L (3.5-5.1) H Chloride Level 100 MMOL/L (98-107) Carbon Dioxide Level 16 MMOL/L (21-32) L Anion Gap 13 mmol/L (5-15) Blood Urea Nitrogen 109 mg/dL (7-18) H Creatinine 3.9 MG/DL (0.55-1.30) H Estimat Glomerular Filtration Rate 19.8 mL/min (>60) Glucose Level 167 MG/DL (74-106) H Calcium Level 7.3 MG/DL (8.5-10.1) L Total Bilirubin 1.9 MG/DL (0.2-1.0) H Direct Bilirubin 1.8 MG/DL (0.0-0.3) H Aspartate Amino Transf (AST/SGOT) 679 U/L (15-37) H Alanine Aminotransferase (ALT/SGPT) 396 U/L (12-78) H Alkaline Phosphatase 191 U/L (46-116) H Total Protein 4.4 G/DL (6.4-8.2) L Albumin 0.6 G/DL (3.4-5.0) L Globulin 3.8 g/dL Current Medications Medications (Trade) Dose Ordered Sig/[place] Route PRN Reason Start Time Stop Time Status Last Admin Dose Admin Al Hydroxide/Mg Hydroxide (Mylanta) 30 ml QIDPRN PRN GT stomach upset 01/14/20 16:45 02/13/20 16:44 Artificial Tears (Akwa-Tears) 1 drop EVERY 12 HOURS BOTH EYES 01/14/20 21:00 02/13/20 20:59 01/20/20 09:10 Barium Sulfate (Readi-Cat 2) 450 ml NOW PRN ORAL Radiology Procedure 01/19/20 16:00 01/21/20 15:52 Dextrose (Dextrose 50%) 25 ml Q30M PRN IV Hypoglycemia 01/14/20 16:45 04/13/20 16:44 01/20/20 09:08 Dextrose (Dextrose 50%) 50 ml Q30M PRN IV hypoglycemia 01/14/20 16:45 04/13/20 16:44 01/14/20 21:25 Dextrose/Sodium Chloride 1,000 ml @ 150 mls/hr Q6H40M IV 01/20/20 09:30 02/19/20 09:29 01/20/20 09:24 Insulin Aspart (NovoLOG) No Dose Q6HR SUBQ 01/14/20 18:00 04/13/20 17:59 01/19/20 05:24 Insulin Detemir (Levemir) 18 units Q12HR SUBQ 01/19/20 21:00 04/18/20 20:59 Loperamide HCl (Imodium) 2 mg Q4H PRN ORAL Diarrhea 01/19/20 16:00 02/16/20 10:29 Metoclopramide HCl (Reglan) 5 mg Q6H IVP 01/17/20 12:00 02/16/20 11:59 01/20/20 11:21 Pantoprazole (Protonix) 40 mg DAILY IVP 01/20/20 09:00 02/19/20 08:59 01/20/20 09:11 Sodium Hypochlorite (Dakin's Half Strength) 1 applic DAILY TOPIC 01/15/20 09:00 02/14/20 08:59 01/20/20 09:12 Vancomycin HCl (Firvanq) 125 mg FOUR TIMES A DAY GT 01/14/20 18:00 01/23/20 23:59 01/20/20 10:31 Zinc Sulfate (Zinc Sulfate) 220 mg DAILY GT 01/15/20 09:00 04/14/20 08:59 01/20/20 09:11 Tony Apple MD Jan 20, 2020 11:58"
--- NOTE | 2020-01-20 13:45 | Surgery Progress Note ---
Surgery Progress Note Subjective Procedure Performed right femoral central venous catheter removal Additional Comments remains on vent, with po vanc, wbc up. plt improved Objective Last 24 Hour Vital Signs Date Time Temp Pulse Resp B/P (MAP) Pulse Ox O2 Delivery O2 Flow Rate FiO2 01/20/20 12:00 57 01/20/20 11:15 95.9 58 20 115/70 (85) 100 01/20/20 11:00 60 24 30 01/20/20 08:00 57 01/20/20 07:18 75 24 30 01/20/20 04:00 40 01/20/20 04:00 98.1 96 22 110/84 (93) 100 01/20/20 04:00 Mechanical Ventilator 01/20/20 04:00 58 01/20/20 03:33 74 25 30 01/20/20 00:00 40 01/20/20 00:00 63 01/20/20 00:00 Mechanical Ventilator 01/19/20 23:50 97.8 74 22 107/69 (82) 100 01/19/20 22:38 78 27 30 01/19/20 20:00 63 01/19/20 20:00 40 01/19/20 20:00 Mechanical Ventilator 01/19/20 20:00 97.3 85 22 114/86 (95) 99 01/19/20 19:19 67 28 30 01/19/20 16:39 64 01/19/20 16:00 40 01/19/20 16:00 97.0 60 26 144/73 (96) 99 01/19/20 16:00 Mechanical Ventilator 01/19/20 15:05 68 27 30 I&O Intake and Output 01/19/20 01/20/20 19:00 07:00 Intake Total 810 ml 1995 ml Output Total 350 ml 600 ml Balance 460 ml 1395 ml Intake Free Water 300 ml 300 ml IV Total 150 ml 1545 ml Tube Feeding 360 ml 150 ml Output Urine Total 350 ml 600 ml # Bowel Movements 1 1 Dressing: other Wound: other Drains: other Cardiovascular: RSR Respiratory: decreased breath sounds Abdomen: soft, non-tender, present bowel sounds Extremities: no cyanosis Laboratory Tests Test 01/20/20 09:26 White Blood Count 15.1 K/UL (4.8-10.8) H Red Blood Count 2.93 M/UL (4.70-6.10) L Hemoglobin 8.5 G/DL (14.2-18.0) L Hematocrit 24.7 % (42.0-52.0) L Mean Corpuscular Volume 84 FL (80-99) Mean Corpuscular Hemoglobin 29.0 PG (27.0-31.0) Mean Corpuscular Hemoglobin Concent 34.5 G/DL (32.0-36.0) Red Cell Distribution Width 17.8 % (11.6-14.8) H Platelet Count 90 K/UL (150-450) L Mean Platelet Volume 16.4 FL (6.5-10.1) H Neutrophils (%) (Auto) % (45.0-75.0) Lymphocytes (%) (Auto) % (20.0-45.0) Monocytes (%) (Auto) % (1.0-10.0) Eosinophils (%) (Auto) % (0.0-3.0) Basophils (%) (Auto) % (0.0-2.0) Differential Total Cells Counted 100 Neutrophils % (Manual) 83 % (45-75) H Lymphocytes % (Manual) 6 % (20-45) L Monocytes % (Manual) 9 % (1-10) Eosinophils % (Manual) 2 % (0-3) Basophils % (Manual) 0 % (0-2) Band Neutrophils 0 % (0-8) Platelet Estimate Decreased L Platelet Morphology Normal Anisocytosis 1+ Sodium Level 129 MMOL/L (136-145) L Potassium Level 5.3 MMOL/L (3.5-5.1) H Chloride Level 100 MMOL/L (98-107) Carbon Dioxide Level 16 MMOL/L (21-32) L Anion Gap 13 mmol/L (5-15) Blood Urea Nitrogen 109 mg/dL (7-18) H Creatinine 3.9 MG/DL (0.55-1.30) H Estimat Glomerular Filtration Rate 19.8 mL/min (>60) Glucose Level 167 MG/DL (74-106) H Calcium Level 7.3 MG/DL (8.5-10.1) L Total Bilirubin 1.9 MG/DL (0.2-1.0) H Direct Bilirubin 1.8 MG/DL (0.0-0.3) H Aspartate Amino Transf (AST/SGOT) 679 U/L (15-37) H Alanine Aminotransferase (ALT/SGPT) 396 U/L (12-78) H Alkaline Phosphatase 191 U/L (46-116) H Total Protein 4.4 G/DL (6.4-8.2) L Albumin 0.6 G/DL (3.4-5.0) L Globulin 3.8 g/dL Plan Problems: (1) Hyponatremia (2) ARF (acute renal failure) (3) Hyperkalemia (4) Pressure sore on sacrum Assessment & Plan: Pt presented on admission with Sacral Pressure injury and Necrosis Both Both R lower ext, R foot and L foot. Generalized edema noted. Both upper ext noted to have multiple serous blisters ,some of which are weeping serous exudate. Full thickness Sacral Pressure Injury with undermined Borders. Base of wound is 75% loose necrotic tissue,25% bree. Bone exposure at base of wound. Area of necrosis noted at distal aspect of wound in space between wound and anus.Edges are macerated. Wound is malodorous.(L)9.5cm x (W)9.2cm x (D)2.9cm,undermining clockwise 10-3 by 3.8cm @12 o'clock. Scattered areas of hyperpigmentation noted to R and L clefts of buttocks. Unable to determine exudate as pt is continuously oozing large amt of semi soft black stool and leaking into wound because of close proximity to his rectum. At upper, R gluteal cheek is additional Pressure Injury with small amt Biofilm at base of wound. Edges are pink and adherent to base of wound. No exudate noted.(L)3cm x (W)2.6cm. Medially to distal Tibia,and extending to R foot is necrotic and malodorous.Wound is partially opened at posterior R tibia but is dry . L foot is necrotic and malodorous. No exudate noted. Tx.Plan: Cleanse Sacral wound with Dakin's 0.25% archana.. Loosely Pack wound with Dakin's moistened Kerlix.Apply Moisture Barrier Paste periwound.Cover with Optifoam drsg.Change Daily and PRN. Cleanse R lower ext and R foot with Dakin's 0.25% Archana. Cover wounds with ABD Pads.Wrap with Kerlix Daily and prn. Cleanse L foot Wounds with Dakin's 0.25% Archana. Cover wounds with ABD Pads and wrap with Kerlix Daily and prn. (5) Upper GI bleed Assessment & Plan: Patient with sepsis, abnormal labs, GI bleed, pending COVID eval. Labs noted. Exam reviewed. Chest x-ray noted as below. Discussed with GI. Plan for endoscopy once COVID status evaluated. Trend hemoglobin for now transfuse PRN. G-tube is functional and okay for medications and will plan tube feeds accordingly. No acute surgical intervention as patient is actively bleeding. Proton pump inhibitor recommended and Rx as written. Will follow with recommendations thank you for let me participate in patient's care plt low anemia prognosis guarded no active GI bleeding noted Status post PEG Tolerating tube feeds but still having diarrhea Difficult with rectal tube slides right out likely from spinal injury Anasarca stable No active bleeding line Free currently will monitor closely There is a tracheostomy in place. Vascularity is normal. Hazy densities in the lung bases may be layering effusions. Cardiac and mediastinal silhouette are within normal limits. The bony thorax appear unremarkable. line removed will monitor for bleeding IMPRESSION: Bibasilar hazy densities perhaps layering effusions. right fem line not functional noted manipulation as suture was dislodged. line replaced 1. Two or three gastric AVMs. 2. Ulcer with a small visible vessel, status post gold probe bipolar cauterization. DAILY ESTIMATED NEEDS: Needs based on Critical Care, Wounds, TR / 61kg 25-30 kcals/kg 4552-9750 total kcals 0.8-1.25 (increase w/ renal improvement) g protein/kg 49-76 g total protein 25-30 mL/kg 4313-9991 total fluid mLs NUTRITION DIAGNOSIS: * Swallowing difficulty R/T respiratory status, dysphagia as evidenced by trach/vent dep, PEG dep. * Increased kcal/prot intake needs R/T wound healing as evidenced by admitted w/ multiple wounds including full thickness wound @ sacrum, pressure Injury with small amt Biofilm at base of wound @ upper R gluteal cheek, necrotic wound @ medial to distal Tibia,and extending to R foot and L foot * Altered nutrition related lab R/T TR as evidenced by elev BUN (215-> 134), elev creat (5.2->4.3), low Na (124 -> wnl), elev K (6.7 -> wnl) CURRENT TF:TF HELD ENTERAL NUTRITION RECOMMENDATIONS: Nepro @ 38ml/hr x 24 hrs to provide 912ml, 1642kcal, 74g prot, 663ml free water * Once medically appropriate to feed, initiate TF -> rec Nepro at this time given TR (Creat 5.2 -> 4.3) w/ elev K upon adm * Initiate Nepro @ 18ml/hr x 6hrs, advance 10ml q 4-6 hrs as tolerated to goal rate * HOB over 30 degrees/ water flush per MD Monitor renal fxn closely, need to continue renal TF formula ADDITIONAL RECOMMENDATIONS: * Per SN[facility]: HT=62" WT= 135lbs (12/25/19) * Monitor renal fxn and lytes (slowly improving renal fxn) * Monitor ability to resume TF- TF holding cont to be needed, consider initiating parenteral nutrition * Wound healing: add Ajay BID w/ TF order * Monitor for hypoglycemia: rec to hold ALL insulin while pt is NPO Jaivd Singh Jan 20, 2020 13:45
[2020-01-20 16:00] VITALS: BP 115/69
[2020-01-20] MEDS: Sodium Citrate 30ml GT SCH ×2 (17:34→23:23)
[2020-01-20 20:00] VITALS: BP 117/62
--- NOTE | 2020-01-20 20:12 | Nephrology Progress Note ---
Assessment/Plan Problem List: (1) Respiratory failure (2) ARF (acute renal failure) (3) Hyponatremia (4) Hyperkalemia (5) Upper GI bleed (6) Pressure sore on sacrum (7) Diarrhea (8) Severe malnutrition Plan diarrhea, reorder iv fluids,BUN/creatinine 70/.91 11/2019, enteral hydration , BUN lower enteral fluids reji likely from infection, severe hypoalbuminemia with poor prognosis Na 129 K 5.3 iv adjusted, bicitra started for acidosis Subjective ROS Limited/Unobtainable: Yes Objective Objective Last 24 Hour Vital Signs Date Time Temp Pulse Resp B/P (MAP) Pulse Ox O2 Delivery O2 Flow Rate FiO2 01/20/20 19:12 73 25 30 01/20/20 18:00 Mechanical Ventilator 01/20/20 16:00 Mechanical Ventilator 01/20/20 16:00 63 01/20/20 16:00 96.3 63 20 115/69 (84) 100 01/20/20 16:00 40 01/20/20 15:30 66 26 30 01/20/20 12:00 40 01/20/20 12:00 Mechanical Ventilator 01/20/20 12:00 57 01/20/20 11:15 95.9 58 20 115/70 (85) 100 01/20/20 11:00 60 24 30 01/20/20 08:00 57 01/20/20 08:00 92.7 56 20 114/69 (84) 100 01/20/20 08:00 Mechanical Ventilator 01/20/20 08:00 40 01/20/20 07:18 75 24 30 01/20/20 04:00 40 01/20/20 04:00 98.1 96 22 110/84 (93) 100 01/20/20 04:00 Mechanical Ventilator 01/20/20 04:00 58 01/20/20 03:33 74 25 30 01/20/20 00:00 40 01/20/20 00:00 63 01/20/20 00:00 Mechanical Ventilator 01/19/20 23:50 97.8 74 22 107/69 (82) 100 01/19/20 22:38 78 27 30 Intake and Output 01/19/20 01/20/20 19:00 07:00 Intake Total 810 ml 1995 ml Output Total 350 ml 600 ml Balance 460 ml 1395 ml Intake Free Water 300 ml 300 ml IV Total 150 ml 1545 ml Tube Feeding 360 ml 150 ml Output Urine Total 350 ml 600 ml # Bowel Movements 1 1 Laboratory Tests 01/20/20 09:26: White Blood Count 15.1H, Red Blood Count 2.93L, Hemoglobin 8.5L, Hematocrit 24.7L, Mean Corpuscular Volume 84, Mean Corpuscular Hemoglobin 29.0, Mean Corpuscular Hemoglobin Concent 34.5, Red Cell Distribution Width 17.8H, Platelet Count 90L, Mean Platelet Volume 16.4H, Neutrophils (%) (Auto) , Lymphocytes (%) (Auto) , Monocytes (%) (Auto) , Eosinophils (%) (Auto) , Basophils (%) (Auto) , Differential Total Cells Counted 100, Neutrophils % ( Manual) 83H, Lymphocytes % (Manual) 6L, Monocytes % (Manual) 9, Eosinophils % ( Manual) 2, Basophils % (Manual) 0, Band Neutrophils 0, Platelet Estimate DecreasedL, Platelet Morphology Normal, Anisocytosis 1+, Sodium Level 129L, Potassium Level 5.3H, Chloride Level 100, Carbon Dioxide Level 16L, Anion Gap 13 , Blood Urea Nitrogen 109H, Creatinine 3.9H, Estimat Glomerular Filtration Rate 19.8, Glucose Level 167H, Calcium Level 7.3L, Total Bilirubin 1.9H, Direct Bilirubin 1.8H, Aspartate Amino Transf (AST/SGOT) 679H, Alanine Aminotransferase (ALT/SGPT) 396H, Alkaline Phosphatase 191H, Total Protein 4.4L , Albumin 0.6L, Globulin 3.8 Height (Feet): 5 Height (Inches): 5.00 Weight (Pounds): 194 General Appearance: lethargic, other - on vent Cardiovascular: regular rhythm Respiratory/Chest: rhonchi - bilaterally Abdomen: soft Extremities: other - gangrene feet Neurologic: unresponsive Martin Yee MD Jan 20, 2020 20:12
[2020-01-21] VITALS: BP 113/60
[2020-01-21] MEDS: D5NS 1,000 ML IV SCH ×3 (03:21→18:53)
[2020-01-21 04:00] VITALS: BP 111/56
[2020-01-21] MEDS: Insulin NovoLOG Flexpen S/S (Mod) SUBQ SCH ×4 (05:13→23:10)
[2020-01-21] MEDS: Sodium Citrate 30ml GT SCH ×4 (05:23→23:10)
[2020-01-21] MEDS: Metoclopramide 10mg/2ml Inj IVP SCH ×4 (05:24→23:10)
[2020-01-21 05:58] LABS: BASOPHILS % (AUTO) 0.8 % (0.0-2.0); EOSINOPHILS % (AUTO) 2.4 % (0.0-3.0); HEMATOCRIT 25.1 % (42.0-52.0); HEMOGLOBIN 8.6 G/DL (14.2-18.0); LYMPHOCYTES % (AUTO) 3.5 % (20.0-45.0); MEAN CORPUSCULAR VOLUME 84 FL (80-99); NEUTROPHILS % (AUTO) 84.3 % (45.0-75.0); PLATELET COUNT 112 K/UL (150-450); RED CELL DISTRIBUTION WIDTH 17.4 % (11.6-14.8); WHITE BLOOD COUNT 17.7 K/UL (4.8-10.8)
[2020-01-21 06:21] LABS: ALANINE AMINOTRANSFERASE 339 U/L (12-78); ALKALINE PHOSPHATASE 209 U/L (46-116); ANION GAP 13 mmol/L (5-15); ASPARTATE AMINO TRANSFERASE 475 U/L (15-37); BILIRUBIN,TOTAL 1.8 MG/DL (0.2-1.0); BLOOD UREA NITROGEN 99 mg/dL (7-18); CALCIUM 7.8 MG/DL (8.5-10.1); CARBON DIOXIDE 16 MMOL/L (21-32); CHLORIDE 103 MMOL/L (98-107); CREATININE 3.9 MG/DL (0.55-1.30); POTASSIUM 4.4 MMOL/L (3.5-5.1); SODIUM 132 MMOL/L (136-145)
[2020-01-21 06:45] LABS: ALBUMIN 0.5 G/DL (3.4-5.0); BILIRUBIN,DIRECT 1.5 MG/DL (0.0-0.3)
[2020-01-21 06:46] LABS: ALBUMIN/GLOBULIN RATIO 0.1 (1.0-2.7)
--- NOTE | 2020-01-21 07:24 | General Progress Note ---
Assessment/Plan Assessment/Plan: sepsis anemia GIB thrombocytopenia hyponatremia ARF DM dysphagia with GT s/p EGD/PEG GTF reglan imodium prn ppi repeat LFTS>>> ? shock liver>>>stable>>>ordered abd us fu abd CT protonix daily will fu Subjective ROS Limited/Unobtainable: No Allergies: Coded Allergies: No Known Allergies (Unverified , 10/07/19) Objective Last 24 Hour Vital Signs Date Time Temp Pulse Resp B/P (MAP) Pulse Ox O2 Delivery O2 Flow Rate FiO2 01/21/20 07:04 78 24 30 01/21/20 04:00 Mechanical Ventilator 01/21/20 04:00 97.9 79 24 111/56 (74) 99 01/21/20 04:00 40 01/21/20 03:30 78 01/21/20 03:00 76 26 30 01/21/20 00:00 Mechanical Ventilator 01/21/20 00:00 40 01/21/20 00:00 97.6 77 24 113/60 (77) 100 01/20/20 23:30 74 01/20/20 22:58 75 26 30 01/20/20 20:00 Mechanical Ventilator 01/20/20 20:00 40 01/20/20 20:00 97.2 71 24 117/62 (80) 100 01/20/20 19:13 70 01/20/20 19:12 73 25 30 01/20/20 18:00 Mechanical Ventilator 01/20/20 16:00 Mechanical Ventilator 01/20/20 16:00 63 01/20/20 16:00 96.3 63 20 115/69 (84) 100 01/20/20 16:00 40 01/20/20 15:30 66 26 30 01/20/20 12:00 40 01/20/20 12:00 Mechanical Ventilator 01/20/20 12:00 57 01/20/20 11:15 95.9 58 20 115/70 (85) 100 01/20/20 11:00 60 24 30 01/20/20 08:00 57 01/20/20 08:00 92.7 56 20 114/69 (84) 100 01/20/20 08:00 Mechanical Ventilator 01/20/20 08:00 40 Intake and Output 01/20/20 01/21/20 19:00 07:00 Intake Total 1730 ml 1897 ml Output Total 400 ml 306 ml Balance 1330 ml 1591 ml Intake Free Water 100 ml 300 ml IV Total 1500 ml 1487 ml Tube Feeding 130 ml 110 ml Output Urine Total 400 ml 306 ml # Bowel Movements 2 1 Laboratory Tests 01/20/20 09:26: White Blood Count 15.1H, Red Blood Count 2.93L, Hemoglobin 8.5L, Hematocrit 24.7L, Mean Corpuscular Volume 84, Mean Corpuscular Hemoglobin 29.0, Mean Corpuscular Hemoglobin Concent 34.5, Red Cell Distribution Width 17.8H, Platelet Count 90L, Mean Platelet Volume 16.4H, Neutrophils (%) (Auto) , Lymphocytes (%) (Auto) , Monocytes (%) (Auto) , Eosinophils (%) (Auto) , Basophils (%) (Auto) , Differential Total Cells Counted 100, Neutrophils % ( Manual) 83H, Lymphocytes % (Manual) 6L, Monocytes % (Manual) 9, Eosinophils % ( Manual) 2, Basophils % (Manual) 0, Band Neutrophils 0, Platelet Estimate DecreasedL, Platelet Morphology Normal, Anisocytosis 1+, Sodium Level 129L, Potassium Level 5.3H, Chloride Level 100, Carbon Dioxide Level 16L, Anion Gap 13 , Blood Urea Nitrogen 109H, Creatinine 3.9H, Estimat Glomerular Filtration Rate 19.8, Glucose Level 167H, Calcium Level 7.3L, Total Bilirubin 1.9H, Direct Bilirubin 1.8H, Aspartate Amino Transf (AST/SGOT) 679H, Alanine Aminotransferase (ALT/SGPT) 396H, Alkaline Phosphatase 191H, Total Protein 4.4L , Albumin 0.6L, Globulin 3.8 01/21/20 05:08: White Blood Count 17.7H, Red Blood Count 3.00L, Hemoglobin 8.6L, Hematocrit 25.1L, Mean Corpuscular Volume 84, Mean Corpuscular Hemoglobin 28.6, Mean Corpuscular Hemoglobin Concent 34.0, Red Cell Distribution Width 17.4H, Platelet Count 112L, Mean Platelet Volume 11.5H, Neutrophils (%) (Auto) 84.3H, Lymphocytes (%) (Auto) 3.5L, Monocytes (%) (Auto) 9.0, Eosinophils (%) (Auto) 2.4, Basophils (%) (Auto) 0.8, Sodium Level 132L, Potassium Level 4.4, Chloride Level 103, Carbon Dioxide Level 16L, Anion Gap 13, Blood Urea Nitrogen 99H, Creatinine 3.9H, Estimat Glomerular Filtration Rate 19.8, Glucose Level 151H, Calcium Level 7.8L, Total Bilirubin 1.8H, Direct Bilirubin 1.5H, Aspartate Amino Transf (AST/SGOT) 475H, Alanine Aminotransferase (ALT/SGPT) 339H, Alkaline Phosphatase 209H, Total Protein 5.0L, Albumin 0.5L, Globulin 4.5, Albumin/Globulin Ratio 0.1L Height (Feet): 5 Height (Inches): 5.00 Weight (Pounds): 201 General Appearance: no apparent distress EENT: normal ENT inspection Neck: supple Cardiovascular: normal rate Respiratory/Chest: decreased breath sounds Abdomen: normal bowel sounds, non tender, soft Extremities: non-tender Toni Mckenzie MD Jan 21, 2020 07:24
--- NOTE | 2020-01-21 07:38 | Hematology/Onc Progress Note ---
Assessment/Plan Assessment/Plan Assessment and recs # Thrombocytopenia - potential causes multifactorial, evaluate liver and viral etiologies to begin, also could be related to underlying medications patient has received. May be due to DIC in this case, or consumption --> Hep panel and HIV negative --> US abd to evaluate for cirrhosis and hsm --> neg for cirrhosis and hsm --> Peripheral smear ordered to evaluate for blasts /schistocytes --> abx and other meds have been reviewed --> ok for ppx if plt >50k w/ either heparin or lovenox --> Transfuse if Plt < 20k and fever, or if Plt < 10k without fever --> plt trend 41-->32-->21k-->20 -->61k-->45-->62-->51->38->55->50->70-->90--> 112 # Anemia due to Upper GI bleed, hematuria --> no evidence of hemolysis is noted --> smear noted --> anemia panel reviewed, ferritin high --> po iron ok --> for hematuria as per urology --> Pending endoscopy when clear from covid19 --> hgb trend: 9.1 ->8.3->6.9-->8.1-->8.3-->7.6 -->6.6-->10.5-->9.8-->9.3->8.5-- >8.6 --> prbc: 2 units 01/02, 01/12 # Leukocytosis due to e/coli/kleb pna --> on connor/wilma--> vanc --> wbc trend 23-->32-->17.1-->13.9-->10-->15-->17.7 # Hyperkalemia --> kayxelate as needed --> k trend # ARF (acute renal failure) --> per renal # Hyponatremia # Gram negative pneumonia # Ventilator dependent respiratory failure # intracranial hemorrhage # paraplegia # Dysphagia with gtube The timing of this note does not necessarily reflect the time of the patient was seen. Greatly appreciate consultation. Subjective Allergies: Coded Allergies: No Known Allergies (Unverified , 10/07/19) Subjective 01/03obtunded, s/p rbc x2, hgb improved to 9.1, us abd reviewed, hematuria+ 01/04 plt are better, got 1 unit pf platets today as well, plt now 61k, less gi bleed overnight, some black tarry stool noted 01/05 nv, labs noted, hgb 8.5, no hemolysis noted, no bleeding, plt 83, egd tomorrow 01/06 egd for this am, results are pending, labs noted 01/09 no major changes, labs noted, no bleeding wbc higher, on abx 01/10 sdu, wbc improving, inr 1.4, vent, h/h stable, no distress 01/11 hgb 7.6, no tx required, repeat cbc for tomorrow, on vent 01/12 remains on vent, hgb 6.6, getting 2 iunits prbc today, will need picc 01/13 trach to vent, nepro feeds ongoing, hgb improved 10.5 01/14 s/p egd w/ peg, rectal tube, no acute events, h/h stable 01/15 remains obtunded, minimal blood in stool, will hold off on platelet administration 01/16 labs noted, nob leeding, meds reviewed, plt higher 01/18 sdu, nonverbal, no acute events, vent, vanc 01/19 remains on vent, with po vanc, wbc higher as is plt 01/20 sdu, obtunded, blisters to groin/scrotum area, labs reviewed Objective Objective Current Medications Medications (Trade) Dose Ordered Sig/[place] Route PRN Reason Start Time Stop Time Status Last Admin Dose Admin Al Hydroxide/Mg Hydroxide (Mylanta) 30 ml QIDPRN PRN GT stomach upset 01/14/20 16:45 02/13/20 16:44 Artificial Tears (Akwa-Tears) 1 drop EVERY 12 HOURS BOTH EYES 01/14/20 21:00 02/13/20 20:59 01/20/20 20:46 Barium Sulfate (Readi-Cat 2) 450 ml NOW PRN ORAL Radiology Procedure 01/19/20 16:00 01/21/20 15:52 Dextrose (Dextrose 50%) 25 ml Q30M PRN IV Hypoglycemia 01/14/20 16:45 04/13/20 16:44 01/20/20 09:08 Dextrose (Dextrose 50%) 50 ml Q30M PRN IV hypoglycemia 01/14/20 16:45 04/13/20 16:44 01/14/20 21:25 Dextrose/Sodium Chloride 1,000 ml @ 150 mls/hr Q6H40M IV 01/20/20 09:30 02/19/20 09:29 01/21/20 03:21 Insulin Aspart (NovoLOG) No Dose Q6HR SUBQ 01/14/20 18:00 04/13/20 17:59 01/20/20 17:40 Insulin Detemir (Levemir) 18 units Q12HR SUBQ 01/19/20 21:00 04/18/20 20:59 Loperamide HCl (Imodium) 2 mg Q4H PRN ORAL Diarrhea 01/19/20 16:00 02/16/20 10:29 Metoclopramide HCl (Reglan) 5 mg Q6H IVP 01/17/20 12:00 02/16/20 11:59 01/21/20 05:24 Pantoprazole (Protonix) 40 mg DAILY IVP 01/20/20 09:00 02/19/20 08:59 01/20/20 09:11 Sodium Hypochlorite (Dakin's Half Strength) 1 applic DAILY TOPIC 01/15/20 09:00 02/14/20 08:59 01/20/20 09:12 Sodium Citrate (Bicitra) 30 ml EVERY 6 HOURS GT 01/20/20 18:00 02/19/20 17:59 01/21/20 05:23 Vancomycin HCl (Firvanq) 125 mg FOUR TIMES A DAY GT 01/14/20 18:00 01/23/20 23:59 01/20/20 20:46 Zinc Sulfate (Zinc Sulfate) 220 mg DAILY GT 01/15/20 09:00 04/14/20 08:59 01/20/20 09:11 Last 24 Hour Vital Signs Date Time Temp Pulse Resp B/P (MAP) Pulse Ox O2 Delivery O2 Flow Rate FiO2 01/21/20 07:04 78 24 30 01/21/20 04:00 Mechanical Ventilator 01/21/20 04:00 97.9 79 24 111/56 (74) 99 01/21/20 04:00 40 01/21/20 03:30 78 01/21/20 03:00 76 26 30 01/21/20 00:00 Mechanical Ventilator 01/21/20 00:00 40 01/21/20 00:00 97.6 77 24 113/60 (77) 100 01/20/20 23:30 74 01/20/20 22:58 75 26 30 01/20/20 20:00 Mechanical Ventilator 01/20/20 20:00 40 01/20/20 20:00 97.2 71 24 117/62 (80) 100 01/20/20 19:13 70 01/20/20 19:12 73 25 30 01/20/20 18:00 Mechanical Ventilator 01/20/20 16:00 Mechanical Ventilator 01/20/20 16:00 63 01/20/20 16:00 96.3 63 20 115/69 (84) 100 01/20/20 16:00 40 01/20/20 15:30 66 26 30 01/20/20 12:00 40 01/20/20 12:00 Mechanical Ventilator 01/20/20 12:00 57 01/20/20 11:15 95.9 58 20 115/70 (85) 100 01/20/20 11:00 60 24 30 01/20/20 08:00 57 01/20/20 08:00 92.7 56 20 114/69 (84) 100 01/20/20 08:00 Mechanical Ventilator 01/20/20 08:00 40 01/20/20 07:18 75 24 30 01/20/20 04:00 40 01/20/20 04:00 98.1 96 22 110/84 (93) 100 01/20/20 04:00 Mechanical Ventilator 01/20/20 04:00 58 01/20/20 03:33 74 25 30 01/20/20 00:00 40 01/20/20 00:00 63 01/20/20 00:00 Mechanical Ventilator 01/19/20 23:50 97.8 74 22 107/69 (82) 100 01/19/20 22:38 78 27 30 01/19/20 20:00 63 01/19/20 20:00 40 01/19/20 20:00 Mechanical Ventilator 01/19/20 20:00 97.3 85 22 114/86 (95) 99 01/19/20 19:19 67 28 30 01/19/20 16:39 64 01/19/20 16:00 40 01/19/20 16:00 97.0 60 26 144/73 (96) 99 01/19/20 16:00 Mechanical Ventilator 01/19/20 15:05 68 27 30 01/19/20 12:00 96.4 59 27 138/60 (86) 98 01/19/20 12:00 62 01/19/20 12:00 40 01/19/20 12:00 Mechanical Ventilator 01/19/20 10:50 58 24 30 01/19/20 08:00 40 01/19/20 08:00 Mechanical Ventilator 01/19/20 08:00 95.9 57 26 114/69 (84) 99 01/19/20 08:00 53 Intake and Output 01/20/20 01/21/20 19:00 07:00 Intake Total 1730 ml 1897 ml Output Total 400 ml 306 ml Balance 1330 ml 1591 ml Intake Free Water 100 ml 300 ml IV Total 1500 ml 1487 ml Tube Feeding 130 ml 110 ml Output Urine Total 400 ml 306 ml # Bowel Movements 2 1 Labs Test 01/19/20 04:50 01/20/20 09:26 01/21/20 05:08 Sodium Level 130 MMOL/L (136-145) 129 MMOL/L (136-145) 132 MMOL/L (136-145) Potassium Level 4.5 MMOL/L (3.5-5.1) 5.3 MMOL/L (3.5-5.1) 4.4 MMOL/L (3.5-5.1) Chloride Level 99 MMOL/L (98-107) 100 MMOL/L (98-107) 103 MMOL/L (98-107) Carbon Dioxide Level 19 MMOL/L (21-32) 16 MMOL/L (21-32) 16 MMOL/L (21-32) Anion Gap 12 mmol/L (5-15) 13 mmol/L (5-15) 13 mmol/L (5-15) Blood Urea Nitrogen 115 mg/dL (7-18) 109 mg/dL (7-18) 99 mg/dL (7-18) Creatinine 4.1 MG/DL (0.55-1.30) 3.9 MG/DL (0.55-1.30) 3.9 MG/DL (0.55-1.30) Estimat Glomerular Filtration Rate 18.5 mL/min (>60) 19.8 mL/min (>60) 19.8 mL/min (>60) Glucose Level 156 MG/DL (74-106) 167 MG/DL (74-106) 151 MG/DL (74-106) Calcium Level 7.7 MG/DL (8.5-10.1) 7.3 MG/DL (8.5-10.1) 7.8 MG/DL (8.5-10.1) Total Bilirubin 2.0 MG/DL (0.2-1.0) 1.9 MG/DL (0.2-1.0) 1.8 MG/DL (0.2-1.0) Direct Bilirubin 1.7 MG/DL (0.0-0.3) 1.8 MG/DL (0.0-0.3) 1.5 MG/DL (0.0-0.3) Aspartate Amino Transf (AST/SGOT) 708 U/L (15-37) 679 U/L (15-37) 475 U/L (15-37) Alanine Aminotransferase (ALT/SGPT) 436 U/L (12-78) 396 U/L (12-78) 339 U/L (12-78) Alkaline Phosphatase 193 U/L (46-116) 191 U/L (46-116) 209 U/L (46-116) Total Creatine Kinase 44 U/L (26-308) Total Protein 5.1 G/DL (6.4-8.2) 4.4 G/DL (6.4-8.2) 5.0 G/DL (6.4-8.2) Albumin 0.6 G/DL (3.4-5.0) 0.6 G/DL (3.4-5.0) 0.5 G/DL (3.4-5.0) Globulin 4.5 g/dL 3.8 g/dL 4.5 g/dL White Blood Count 15.1 K/UL (4.8-10.8) 17.7 K/UL (4.8-10.8) Red Blood Count 2.93 M/UL (4.70-6.10) 3.00 M/UL (4.70-6.10) Hemoglobin 8.5 G/DL (14.2-18.0) 8.6 G/DL (14.2-18.0) Hematocrit 24.7 % (42.0-52.0) 25.1 % (42.0-52.0) Mean Corpuscular Volume 84 FL (80-99) 84 FL (80-99) Mean Corpuscular Hemoglobin 29.0 PG (27.0-31.0) 28.6 PG (27.0-31.0) Mean Corpuscular Hemoglobin Concent 34.5 G/DL (32.0-36.0) 34.0 G/DL (32.0-36.0) Red Cell Distribution Width 17.8 % (11.6-14.8) 17.4 % (11.6-14.8) Platelet Count 90 K/UL (150-450) 112 K/UL (150-450) Mean Platelet Volume 16.4 FL (6.5-10.1) 11.5 FL (6.5-10.1) Neutrophils (%) (Auto) % (45.0-75.0) 84.3 % (45.0-75.0) Lymphocytes (%) (Auto) % (20.0-45.0) 3.5 % (20.0-45.0) Monocytes (%) (Auto) % (1.0-10.0) 9.0 % (1.0-10.0) Eosinophils (%) (Auto) % (0.0-3.0) 2.4 % (0.0-3.0) Basophils (%) (Auto) % (0.0-2.0) 0.8 % (0.0-2.0) Differential Total Cells Counted 100 Neutrophils % (Manual) 83 % (45-75) Lymphocytes % (Manual) 6 % (20-45) Monocytes % (Manual) 9 % (1-10) Eosinophils % (Manual) 2 % (0-3) Basophils % (Manual) 0 % (0-2) Band Neutrophils 0 % (0-8) Platelet Estimate Decreased Platelet Morphology Normal Anisocytosis 1+ Albumin/Globulin Ratio 0.1 (1.0-2.7) Height (Feet): 5 Height (Inches): 5.00 Weight (Pounds): 201 Objective Physical Exam: Vitals: reviewed General: NAD ++obtunded HEENT: nc, at, mouth guard+ Neck: supple++trach Chest: clear breath sounds bilaterally Cardiovascular: RRR, no s3, s4 Abdomen/GI: soft, nontender, nd ++gtube, rectal tube+ Extremities: no cce, normal range of motion, ++ Spasticity in the left upper extremity. Flaccid on the right, scrotal blisters++ Neuro: nonfocal : babb+ Wilmer Turner MD Jan 21, 2020 07:38
[2020-01-21 08:00] VITALS: BP 142/72
[2020-01-21] MEDS: Pantoprazole Inj IVP SCH (08:41)
--- NOTE | 2020-01-21 08:44 | Pulmonology Progress Note ---
Subjective ROS Limited/Unobtainable: No Constitutional: Denies: fever Gastrointestinal/Abdominal: Reports: diarrhea Allergies: Coded Allergies: No Known Allergies (Unverified , 10/07/19) All Systems: reviewed and negative except above Subjective care noted on vent no significant improvement renal function poor but sl improved wbc worse labs noted Objective Last 24 Hour Vital Signs Date Time Temp Pulse Resp B/P (MAP) Pulse Ox O2 Delivery O2 Flow Rate FiO2 01/21/20 07:04 78 24 30 01/21/20 04:00 Mechanical Ventilator 01/21/20 04:00 97.9 79 24 111/56 (74) 99 01/21/20 04:00 40 01/21/20 03:30 78 01/21/20 03:00 76 26 30 01/21/20 00:00 Mechanical Ventilator 01/21/20 00:00 40 01/21/20 00:00 97.6 77 24 113/60 (77) 100 01/20/20 23:30 74 01/20/20 22:58 75 26 30 01/20/20 20:00 Mechanical Ventilator 01/20/20 20:00 40 01/20/20 20:00 97.2 71 24 117/62 (80) 100 01/20/20 19:13 70 01/20/20 19:12 73 25 30 01/20/20 18:00 Mechanical Ventilator 01/20/20 16:00 Mechanical Ventilator 01/20/20 16:00 63 01/20/20 16:00 96.3 63 20 115/69 (84) 100 01/20/20 16:00 40 01/20/20 15:30 66 26 30 01/20/20 12:00 40 01/20/20 12:00 Mechanical Ventilator 01/20/20 12:00 57 01/20/20 11:15 95.9 58 20 115/70 (85) 100 01/20/20 11:00 60 24 30 Intake and Output 01/20/20 01/21/20 19:00 07:00 Intake Total 1730 ml 1897 ml Output Total 400 ml 306 ml Balance 1330 ml 1591 ml Intake Free Water 100 ml 300 ml IV Total 1500 ml 1487 ml Tube Feeding 130 ml 110 ml Output Urine Total 400 ml 306 ml # Bowel Movements 2 1 Objective WDWN trach clear breath sounds bilaterally without rhonchi or wheeze [id number] without MRG NABS nontender no HSM no CCE poor LOC reviewed and edited Laboratory Tests 01/20/20 09:26: White Blood Count 15.1H, Red Blood Count 2.93L, Hemoglobin 8.5L, Hematocrit 24.7L, Mean Corpuscular Volume 84, Mean Corpuscular Hemoglobin 29.0, Mean Corpuscular Hemoglobin Concent 34.5, Red Cell Distribution Width 17.8H, Platelet Count 90L, Mean Platelet Volume 16.4H, Neutrophils (%) (Auto) , Lymphocytes (%) (Auto) , Monocytes (%) (Auto) , Eosinophils (%) (Auto) , Basophils (%) (Auto) , Differential Total Cells Counted 100, Neutrophils % ( Manual) 83H, Lymphocytes % (Manual) 6L, Monocytes % (Manual) 9, Eosinophils % ( Manual) 2, Basophils % (Manual) 0, Band Neutrophils 0, Platelet Estimate DecreasedL, Platelet Morphology Normal, Anisocytosis 1+, Sodium Level 129L, Potassium Level 5.3H, Chloride Level 100, Carbon Dioxide Level 16L, Anion Gap 13 , Blood Urea Nitrogen 109H, Creatinine 3.9H, Estimat Glomerular Filtration Rate 19.8, Glucose Level 167H, Calcium Level 7.3L, Total Bilirubin 1.9H, Direct Bilirubin 1.8H, Aspartate Amino Transf (AST/SGOT) 679H, Alanine Aminotransferase (ALT/SGPT) 396H, Alkaline Phosphatase 191H, Total Protein 4.4L , Albumin 0.6L, Globulin 3.8 01/21/20 05:08: White Blood Count 17.7H, Red Blood Count 3.00L, Hemoglobin 8.6L, Hematocrit 25.1L, Mean Corpuscular Volume 84, Mean Corpuscular Hemoglobin 28.6, Mean Corpuscular Hemoglobin Concent 34.0, Red Cell Distribution Width 17.4H, Platelet Count 112L, Mean Platelet Volume 11.5H, Neutrophils (%) (Auto) 84.3H, Lymphocytes (%) (Auto) 3.5L, Monocytes (%) (Auto) 9.0, Eosinophils (%) (Auto) 2.4, Basophils (%) (Auto) 0.8, Sodium Level 132L, Potassium Level 4.4, Chloride Level 103, Carbon Dioxide Level 16L, Anion Gap 13, Blood Urea Nitrogen 99H, Creatinine 3.9H, Estimat Glomerular Filtration Rate 19.8, Glucose Level 151H, Calcium Level 7.8L, Total Bilirubin 1.8H, Direct Bilirubin 1.5H, Aspartate Amino Transf (AST/SGOT) 475H, Alanine Aminotransferase (ALT/SGPT) 339H, Alkaline Phosphatase 209H, Total Protein 5.0L, Albumin 0.5L, Globulin 4.5, Albumin/Globulin Ratio 0.1L Current Medications Medications (Trade) Dose Ordered Sig/[place] Route PRN Reason Start Time Stop Time Status Last Admin Dose Admin Al Hydroxide/Mg Hydroxide (Mylanta) 30 ml QIDPRN PRN GT stomach upset 01/14/20 16:45 02/13/20 16:44 Artificial Tears (Akwa-Tears) 1 drop EVERY 12 HOURS BOTH EYES 01/14/20 21:00 02/13/20 20:59 01/20/20 20:46 Barium Sulfate (Readi-Cat 2) 450 ml NOW PRN ORAL Radiology Procedure 01/19/20 16:00 01/21/20 15:52 Dextrose (Dextrose 50%) 25 ml Q30M PRN IV Hypoglycemia 01/14/20 16:45 04/13/20 16:44 01/20/20 09:08 Dextrose (Dextrose 50%) 50 ml Q30M PRN IV hypoglycemia 01/14/20 16:45 04/13/20 16:44 01/14/20 21:25 Dextrose/Sodium Chloride 1,000 ml @ 150 mls/hr Q6H40M IV 01/20/20 09:30 02/19/20 09:29 01/21/20 03:21 Insulin Aspart (NovoLOG) No Dose Q6HR SUBQ 01/14/20 18:00 04/13/20 17:59 01/20/20 17:40 Insulin Detemir (Levemir) 18 units Q12HR SUBQ 01/19/20 21:00 04/18/20 20:59 Loperamide HCl (Imodium) 2 mg Q4H PRN ORAL Diarrhea 01/19/20 16:00 02/16/20 10:29 Metoclopramide HCl (Reglan) 5 mg Q6H IVP 01/17/20 12:00 02/16/20 11:59 01/21/20 05:24 Pantoprazole (Protonix) 40 mg DAILY IVP 01/20/20 09:00 02/19/20 08:59 01/21/20 08:41 Sodium Hypochlorite (Dakin's Half Strength) 1 applic DAILY TOPIC 01/15/20 09:00 02/14/20 08:59 01/20/20 09:12 Sodium Citrate (Bicitra) 30 ml EVERY 6 HOURS GT 01/20/20 18:00 02/19/20 17:59 01/21/20 05:23 Vancomycin HCl (Firvanq) 125 mg FOUR TIMES A DAY GT 01/14/20 18:00 01/23/20 23:59 01/20/20 20:46 Zinc Sulfate (Zinc Sulfate) 220 mg DAILY GT 01/15/20 09:00 04/14/20 08:59 01/20/20 09:11 Assessment/Plan Assessment/Plan IMPRESSION chronic respiratory failure Acute on chronic renal failure elevated K anemia GIB leukocytosis possible sepsis oral bleeding diarrhea transaminitis PLAN ID , GI and renal clearance vent as is monitor vitals hold feeds snf meds full code prognosis very poor for recovery - still with poor liver enzymes, renal function and leukocytosis consider dc to snf when labs improved impression, plan, and exam edited and reviewed in detail care discussed with Lorenzo Chase MD Jan 21, 2020 08:44
[2020-01-21] MEDS: Dakin's 0.25% (Half Strength) 16oz TOPIC SCH (08:53)
[2020-01-21] MEDS: Zinc Sulfate 220mg GT SCH (09:00)
[2020-01-21] MEDS: Levemir Flexpen SUBQ SCH ×2 (09:00→20:32)
--- NOTE | 2020-01-21 10:59 | Infectious Diseases Prog Note ---
"Assessment/Plan Assessment/Plan antibiotics : po vancomycin 5.29.20 - A 1. e.coli | klebsiella | pseudomonas pneumonia s/p rx 2. renal failure 3. respiratory failure 4. intracranial hemorrhage 5. paraplegia 6. leucocytosis increased 7. COVID 19 test negative x 2 8. gangrene of feet bilaterally P 1. d.c po vancomycin 2. sputum culture 3. start zosyn 4. will follow up cultures Subjective ROS Limited/Unobtainable: Yes Allergies: Coded Allergies: No Known Allergies (Unverified , 10/07/19) Objective Vital Signs Last 24 Hour Vital Signs Date Time Temp Pulse Resp B/P (MAP) Pulse Ox O2 Delivery O2 Flow Rate FiO2 01/21/20 08:00 80 01/21/20 07:04 78 24 30 01/21/20 04:00 Mechanical Ventilator 01/21/20 04:00 97.9 79 24 111/56 (74) 99 01/21/20 04:00 40 01/21/20 03:30 78 01/21/20 03:00 76 26 30 01/21/20 00:00 Mechanical Ventilator 01/21/20 00:00 40 01/21/20 00:00 97.6 77 24 113/60 (77) 100 01/20/20 23:30 74 01/20/20 22:58 75 26 30 01/20/20 20:00 Mechanical Ventilator 01/20/20 20:00 40 01/20/20 20:00 97.2 71 24 117/62 (80) 100 01/20/20 19:13 70 01/20/20 19:12 73 25 30 01/20/20 18:00 Mechanical Ventilator 01/20/20 16:00 Mechanical Ventilator 01/20/20 16:00 63 01/20/20 16:00 96.3 63 20 115/69 (84) 100 01/20/20 16:00 40 01/20/20 15:30 66 26 30 01/20/20 12:00 40 01/20/20 12:00 Mechanical Ventilator 01/20/20 12:00 57 01/20/20 11:15 95.9 58 20 115/70 (85) 100 01/20/20 11:00 60 24 30 Height (Feet): 5 Height (Inches): 5.00 Weight (Pounds): 201 HEENT: status post trach Respiratory/Chest: lungs clear Cardiovascular: normal rate, regular rhythm, no gallop/murmur Abdomen: soft, non tender, other - GT Extremities: other - + edema, necrotic feet bilaterally Laboratory Tests Test 01/21/20 05:08 White Blood Count 17.7 K/UL (4.8-10.8) H Red Blood Count 3.00 M/UL (4.70-6.10) L Hemoglobin 8.6 G/DL (14.2-18.0) L Hematocrit 25.1 % (42.0-52.0) L Mean Corpuscular Volume 84 FL (80-99) Mean Corpuscular Hemoglobin 28.6 PG (27.0-31.0) Mean Corpuscular Hemoglobin Concent 34.0 G/DL (32.0-36.0) Red Cell Distribution Width 17.4 % (11.6-14.8) H Platelet Count 112 K/UL (150-450) L Mean Platelet Volume 11.5 FL (6.5-10.1) H Neutrophils (%) (Auto) 84.3 % (45.0-75.0) H Lymphocytes (%) (Auto) 3.5 % (20.0-45.0) L Monocytes (%) (Auto) 9.0 % (1.0-10.0) Eosinophils (%) (Auto) 2.4 % (0.0-3.0) Basophils (%) (Auto) 0.8 % (0.0-2.0) Sodium Level 132 MMOL/L (136-145) L Potassium Level 4.4 MMOL/L (3.5-5.1) Chloride Level 103 MMOL/L (98-107) Carbon Dioxide Level 16 MMOL/L (21-32) L Anion Gap 13 mmol/L (5-15) Blood Urea Nitrogen 99 mg/dL (7-18) H Creatinine 3.9 MG/DL (0.55-1.30) H Estimat Glomerular Filtration Rate 19.8 mL/min (>60) Glucose Level 151 MG/DL (74-106) H Calcium Level 7.8 MG/DL (8.5-10.1) L Total Bilirubin 1.8 MG/DL (0.2-1.0) H Direct Bilirubin 1.5 MG/DL (0.0-0.3) H Aspartate Amino Transf (AST/SGOT) 475 U/L (15-37) H Alanine Aminotransferase (ALT/SGPT) 339 U/L (12-78) H Alkaline Phosphatase 209 U/L (46-116) H Total Protein 5.0 G/DL (6.4-8.2) L Albumin 0.5 G/DL (3.4-5.0) L Globulin 4.5 g/dL Albumin/Globulin Ratio 0.1 (1.0-2.7) L Current Medications Medications (Trade) Dose Ordered Sig/[place] Route PRN Reason Start Time Stop Time Status Last Admin Dose Admin Al Hydroxide/Mg Hydroxide (Mylanta) 30 ml QIDPRN PRN GT stomach upset 01/14/20 16:45 02/13/20 16:44 Artificial Tears (Akwa-Tears) 1 drop EVERY 12 HOURS BOTH EYES 01/14/20 21:00 02/13/20 20:59 01/21/20 08:45 Barium Sulfate (Readi-Cat 2) 450 ml NOW PRN ORAL Radiology Procedure 01/19/20 16:00 01/21/20 15:52 Dextrose (Dextrose 50%) 25 ml Q30M PRN IV Hypoglycemia 01/14/20 16:45 04/13/20 16:44 01/20/20 09:08 Dextrose (Dextrose 50%) 50 ml Q30M PRN IV hypoglycemia 01/14/20 16:45 04/13/20 16:44 01/14/20 21:25 Dextrose/Sodium Chloride 1,000 ml @ 150 mls/hr Q6H40M IV 01/20/20 09:30 02/19/20 09:29 01/21/20 03:21 Insulin Aspart (NovoLOG) No Dose Q6HR SUBQ 01/14/20 18:00 04/13/20 17:59 01/20/20 17:40 Insulin Detemir (Levemir) 18 units Q12HR SUBQ 01/19/20 21:00 04/18/20 20:59 Loperamide HCl (Imodium) 2 mg Q4H PRN ORAL Diarrhea 01/19/20 16:00 02/16/20 10:29 Metoclopramide HCl (Reglan) 5 mg Q6H IVP 01/17/20 12:00 02/16/20 11:59 01/21/20 05:24 Pantoprazole (Protonix) 40 mg DAILY IVP 01/20/20 09:00 02/19/20 08:59 01/21/20 08:41 Sodium Hypochlorite (Dakin's Half Strength) 1 applic DAILY TOPIC 01/15/20 09:00 02/14/20 08:59 01/21/20 08:53 Sodium Citrate (Bicitra) 30 ml EVERY 6 HOURS GT 01/20/20 18:00 02/19/20 17:59 01/21/20 05:23 Vancomycin HCl (Firvanq) 125 mg FOUR TIMES A DAY GT 01/14/20 18:00 01/23/20 23:59 01/20/20 20:46 Zinc Sulfate (Zinc Sulfate) 220 mg DAILY GT 01/15/20 09:00 04/14/20 08:59 01/20/20 09:11 Tony Apple MD Jan 21, 2020 10:59"
[2020-01-21 12:00] VITALS: BP 145/72
[2020-01-21] MEDS: Piperacillin/Tazobactam 3.375 GM in NS 110 ML IVPB SCH ×2 (15:30→21:11)
--- NOTE | 2020-01-21 15:40 | Diagnostic Imaging Report ---
Indication: Abdominal pain Technique: Avina-scale and duplex images of the upper abdomen were obtained Comparison: 01/03/2020 Findings: Study is somewhat limited due to anasarca and overlying bowel gas, midline gastrostomy bandages. Gallbladder demonstrates sludge and tiny stones. The gallbladder wall is mildly thickened. Sonographic Velázquez sign could not be assessed. Common bile duct measures 4 mm in diameter. No intrahepatic biliary ductal dilatation. The liver is enlarged. It demonstrates normal echogenicity. No focal abnormality. Small amount of ascites fluid is seen at the anterior liver surface and adjacent to the gallbladder, left upper quadrant, and in the pelvis Portal vein and hepatic veins are patent. Pancreas is obscured by bowel gas. Spleen is unremarkable. Left kidney measures 11.4 cm in length. Right kidney measures 10.9 cm length. Both kidneys demonstrate normal echogenicity. There is no hydronephrosis. No focal abnormality . Abdominal aorta is partially obscured by bowel gas, visualized portions are non-aneurysmal . There are small bilateral pleural effusions Impression: Mild hepatomegaly Ascites and small bilateral pleural effusions Cholelithiasis. Gallbladder wall thickening, likely related to the process causing the ascites and pleural fluid, but the possibility of acute cholecystitis should also be considered. Consider nuclear medicine hepatobiliary scan if there is high clinical suspicion. Negative for dilated bile ducts Note inability to visualize the pancreas and portions of the abdominal aorta
[2020-01-21 16:00] VITALS: BP 94/70
--- NOTE | 2020-01-21 17:01 | Surgery Progress Note ---
Surgery Progress Note Subjective Procedure Performed right femoral central venous catheter removal Additional Comments leukocytosis anemia plt improved ill appearing abx change by ID US noted Objective Last 24 Hour Vital Signs Date Time Temp Pulse Resp B/P (MAP) Pulse Ox O2 Delivery O2 Flow Rate FiO2 01/21/20 16:00 97.9 78 18 94/70 (78) 99 01/21/20 16:00 76 01/21/20 16:00 Mechanical Ventilator 01/21/20 16:00 30 01/21/20 12:00 Mechanical Ventilator 01/21/20 12:00 40 01/21/20 12:00 97.9 78 28 145/72 (96) 99 01/21/20 11:41 74 01/21/20 11:22 75 24 30 01/21/20 08:00 97.8 83 28 142/72 (95) 99 01/21/20 08:00 80 01/21/20 08:00 40 01/21/20 08:00 Mechanical Ventilator 01/21/20 07:04 78 24 30 01/21/20 04:00 Mechanical Ventilator 01/21/20 04:00 97.9 79 24 111/56 (74) 99 01/21/20 04:00 40 01/21/20 03:30 78 01/21/20 03:00 76 26 30 01/21/20 00:00 Mechanical Ventilator 01/21/20 00:00 40 01/21/20 00:00 97.6 77 24 113/60 (77) 100 01/20/20 23:30 74 01/20/20 22:58 75 26 30 01/20/20 20:00 Mechanical Ventilator 01/20/20 20:00 40 01/20/20 20:00 97.2 71 24 117/62 (80) 100 01/20/20 19:13 70 01/20/20 19:12 73 25 30 01/20/20 18:00 Mechanical Ventilator I&O Intake and Output 01/20/20 01/21/20 19:00 07:00 Intake Total 1730 ml 1897 ml Output Total 400 ml 306 ml Balance 1330 ml 1591 ml Intake Free Water 100 ml 300 ml IV Total 1500 ml 1487 ml Tube Feeding 130 ml 110 ml Output Urine Total 400 ml 306 ml # Bowel Movements 2 1 Dressing: other Wound: other Drains: other Cardiovascular: RSR Respiratory: decreased breath sounds Abdomen: soft, present bowel sounds, non-distended Extremities: edema, tenderness, cyanosis Laboratory Tests Test 01/21/20 05:08 White Blood Count 17.7 K/UL (4.8-10.8) H Red Blood Count 3.00 M/UL (4.70-6.10) L Hemoglobin 8.6 G/DL (14.2-18.0) L Hematocrit 25.1 % (42.0-52.0) L Mean Corpuscular Volume 84 FL (80-99) Mean Corpuscular Hemoglobin 28.6 PG (27.0-31.0) Mean Corpuscular Hemoglobin Concent 34.0 G/DL (32.0-36.0) Red Cell Distribution Width 17.4 % (11.6-14.8) H Platelet Count 112 K/UL (150-450) L Mean Platelet Volume 11.5 FL (6.5-10.1) H Neutrophils (%) (Auto) 84.3 % (45.0-75.0) H Lymphocytes (%) (Auto) 3.5 % (20.0-45.0) L Monocytes (%) (Auto) 9.0 % (1.0-10.0) Eosinophils (%) (Auto) 2.4 % (0.0-3.0) Basophils (%) (Auto) 0.8 % (0.0-2.0) Sodium Level 132 MMOL/L (136-145) L Potassium Level 4.4 MMOL/L (3.5-5.1) Chloride Level 103 MMOL/L (98-107) Carbon Dioxide Level 16 MMOL/L (21-32) L Anion Gap 13 mmol/L (5-15) Blood Urea Nitrogen 99 mg/dL (7-18) H Creatinine 3.9 MG/DL (0.55-1.30) H Estimat Glomerular Filtration Rate 19.8 mL/min (>60) Glucose Level 151 MG/DL (74-106) H Calcium Level 7.8 MG/DL (8.5-10.1) L Total Bilirubin 1.8 MG/DL (0.2-1.0) H Direct Bilirubin 1.5 MG/DL (0.0-0.3) H Aspartate Amino Transf (AST/SGOT) 475 U/L (15-37) H Alanine Aminotransferase (ALT/SGPT) 339 U/L (12-78) H Alkaline Phosphatase 209 U/L (46-116) H Total Protein 5.0 G/DL (6.4-8.2) L Albumin 0.5 G/DL (3.4-5.0) L Globulin 4.5 g/dL Albumin/Globulin Ratio 0.1 (1.0-2.7) L Plan Problems: (1) Hyponatremia (2) ARF (acute renal failure) (3) Hyperkalemia (4) Pressure sore on sacrum Assessment & Plan: Pt presented on admission with Sacral Pressure injury and Necrosis Both Both R lower ext, R foot and L foot. Generalized edema noted. Both upper ext noted to have multiple serous blisters ,some of which are weeping serous exudate. Full thickness Sacral Pressure Injury with undermined Borders. Base of wound is 75% loose necrotic tissue,25% bree. Bone exposure at base of wound. Area of necrosis noted at distal aspect of wound in space between wound and anus.Edges are macerated. Wound is malodorous.(L)9.5cm x (W)9.2cm x (D)2.9cm,undermining clockwise 10-3 by 3.8cm @12 o'clock. Scattered areas of hyperpigmentation noted to R and L clefts of buttocks. Unable to determine exudate as pt is continuously oozing large amt of semi soft black stool and leaking into wound because of close proximity to his rectum. At upper, R gluteal cheek is additional Pressure Injury with small amt Biofilm at base of wound. Edges are pink and adherent to base of wound. No exudate noted.(L)3cm x (W)2.6cm. Medially to distal Tibia,and extending to R foot is necrotic and malodorous.Wound is partially opened at posterior R tibia but is dry . L foot is necrotic and malodorous. No exudate noted. Tx.Plan: Cleanse Sacral wound with Dakin's 0.25% archana.. Loosely Pack wound with Dakin's moistened Kerlix.Apply Moisture Barrier Paste periwound.Cover with Optifoam drsg.Change Daily and PRN. Cleanse R lower ext and R foot with Dakin's 0.25% Archana. Cover wounds with ABD Pads.Wrap with Kerlix Daily and prn. Cleanse L foot Wounds with Dakin's 0.25% Archana. Cover wounds with ABD Pads and wrap with Kerlix Daily and prn. (5) Upper GI bleed Assessment & Plan: Patient with sepsis, abnormal labs, GI bleed, pending COVID eval. Labs noted. Exam reviewed. Chest x-ray noted as below. Discussed with GI. Plan for endoscopy once COVID status evaluated. Trend hemoglobin for now transfuse PRN. G-tube is functional and okay for medications and will plan tube feeds accordingly. No acute surgical intervention as patient is actively bleeding. Proton pump inhibitor recommended and Rx as written. Will follow with recommendations thank you for let me participate in patient's care plt low anemia prognosis guarded no active GI bleeding noted Status post PEG Tolerating tube feeds but still having diarrhea Difficult with rectal tube slides right out likely from spinal injury Anasarca stable No active bleeding line Free currently will monitor closely There is a tracheostomy in place. Vascularity is normal. Hazy densities in the lung bases may be layering effusions. Cardiac and mediastinal silhouette are within normal limits. The bony thorax appear unremarkable. line removed will monitor for bleeding IMPRESSION: Bibasilar hazy densities perhaps layering effusions. right fem line not functional noted manipulation as suture was dislodged. line replaced 1. Two or three gastric AVMs. 2. Ulcer with a small visible vessel, status post gold probe bipolar cauterization. DAILY ESTIMATED NEEDS: Needs based on Critical Care, Wounds, TR / 61kg 25-30 kcals/kg 7354-6229 total kcals 0.8-1.25 (increase w/ renal improvement) g protein/kg 49-76 g total protein 25-30 mL/kg 8034-0532 total fluid mLs NUTRITION DIAGNOSIS: * Swallowing difficulty R/T respiratory status, dysphagia as evidenced by trach/vent dep, PEG dep. * Increased kcal/prot intake needs R/T wound healing as evidenced by admitted w/ multiple wounds including full thickness wound @ sacrum, pressure Injury with small amt Biofilm at base of wound @ upper R gluteal cheek, necrotic wound @ medial to distal Tibia,and extending to R foot and L foot * Altered nutrition related lab R/T TR as evidenced by elev BUN (215-> 134), elev creat (5.2->4.3), low Na (124 -> wnl), elev K (6.7 -> wnl) CURRENT TF:TF HELD ENTERAL NUTRITION RECOMMENDATIONS: Nepro @ 38ml/hr x 24 hrs to provide 912ml, 1642kcal, 74g prot, 663ml free water * Once medically appropriate to feed, initiate TF -> rec Nepro at this time given TR (Creat 5.2 -> 4.3) w/ elev K upon adm * Initiate Nepro @ 18ml/hr x 6hrs, advance 10ml q 4-6 hrs as tolerated to goal rate * HOB over 30 degrees/ water flush per MD Monitor renal fxn closely, need to continue renal TF formula ADDITIONAL RECOMMENDATIONS: * Per [facility]: HT=62" WT= 135lbs (12/25/19) * Monitor renal fxn and lytes (slowly improving renal fxn) * Monitor ability to resume TF- TF holding cont to be needed, consider initiating parenteral nutrition * Wound healing: add Ajay BID w/ TF order * Monitor for hypoglycemia: rec to hold ALL insulin while pt is NPO Study is somewhat limited due to anasarca and overlying bowel gas, midline gastrostomy bandages. Gallbladder demonstrates sludge and tiny stones. The gallbladder wall is mildly thickened. Sonographic Velázquez sign could not be assessed. Common bile duct measures 4 mm in diameter. No intrahepatic biliary ductal dilatation. The liver is enlarged. It demonstrates normal echogenicity. No focal abnormality. Small amount of ascites fluid is seen at the anterior liver surface and adjacent to the gallbladder, left upper quadrant, and in the pelvis Portal vein and hepatic veins are patent. Pancreas is obscured by bowel gas. Spleen is unremarkable. Left kidney measures 11.4 cm in length. Right kidney measures 10.9 cm length. Both kidneys demonstrate normal echogenicity. There is no hydronephrosis. No focal abnormality . Abdominal aorta is partially obscured by bowel gas, visualized portions are non-aneurysmal . There are small bilateral pleural effusions Javid Singh Jan 21, 2020 17:01
--- NOTE | 2020-01-21 19:20 | Diagnostic Imaging Report ---
Indication: Abdominal pain Technique: Spiral acquisitions obtained through the abdomen and pelvis. Patient given a small amount of enteric contrast. No IV contrast utilized, per referring physician request.. Multiplanar reconstructions were generated. Total dose length product 685 mGycm. CTDIvol(s) 12 mGy. Dose reduction achieved using automated exposure control Comparison: None Findings: There is anasarca. The subcutaneous fat is diffusely edematous circumferentially. The abdominal fat is likewise edematous, although somewhat less so. There is a small amount of ascites fluid. There are moderate to large bilateral pleural effusions. There is diffuse wall thickening of the colon. The appendix is normal. No small bowel distention. No free intraperitoneal gas is demonstrated. There is a gastrostomy in good position. The distal esophagus is unremarkable. Lack of IV contrast limits assessment of the solid organs. The liver is unremarkable. The gallbladder demonstrates some mural edema and small gallstones. No biliary ductal dilatation. The pancreas, spleen, right adrenal are unremarkable. The left adrenal demonstrates a 13 mm nodule. This demonstrates nonspecific soft tissue attenuation. There is some scarring of the lower pole of the right kidney. The left kidney is unremarkable. No renal or ureteral calculi, hydronephrosis, or hydroureter. The bladder contains a Kaba catheter. A metallic fixator is seen bridging the anterior right and left iliac bones, with metallic uziel running through the anterior pelvic wall musculature connecting the 2 iliac screws there is considerable heterotopic new bone above the right acetabulum. There is an old partially healed fracture deformity of the right inferior pubic ramus. There is an old partially healed fracture deformity of the right acetabulum. A fracture line, ununited, runs through the right side of the distal sacrum. Heterotopic new bone is seen surrounding the posterior acetabulum and ischium. There is evidence of a large decubitus ulcer in the retrosacral/retrococcygeal region. This appears to be filled with packing material. However, a tract of gas is seen extending cephalad from the packing material in the retrosacral region. Above-mentioned bilateral pleural effusions are demonstrated at the lung bases, resulting in compressive atelectatic changes. There is also dense consolidation of much of the right middle and lower lobes and diffuse groundglass and dense consolidative opacities in the aerated upper and lower lobes. Impression: Anasarca, with diffuse edema of the subcutaneous and abdominal fat, ascites, bilateral pleural effusions Marked wall thickening of the colon, less severe wall thickening of the small bowel. While possibly a manifestation of anasarca, this is suspicious for colitis/enteritis, nonspecific as regards etiology Cholelithiasis. Mural edema of the gallbladder is probably a manifestation of anasarca although acute cholecystitis is also possible Large retrococcygeal/retrosacral decubitus ulcer, as described Extensive pulmonary parenchymal disease as described, infiltrates versus edema Postsurgical and posttraumatic changes of the pelvis 13 mm left adrenal nodule. Attenuation nonspecific. Consider further evaluation with renal protocol MRI or CT Gastrostomy Kaba catheter Findings discussed by phone with Dr. Mckenzie at the time of interpretation The CT scanner at [facility] is accredited by the [employer] and the scans are performed using protocols designed to limit radiation exposure to as low as reasonably achievable to attain images of sufficient resolution adequate for diagnostic evaluation.
[2020-01-21 20:00] VITALS: BP 124/70
[2020-01-21] MEDS ORDERED: D5NS 1000ml IV ONE (20:16)
--- NOTE | 2020-01-21 21:06 | Nephrology Progress Note ---
Assessment/Plan Problem List: (1) Respiratory failure (2) ARF (acute renal failure) (3) Hyponatremia (4) Hyperkalemia (5) Upper GI bleed (6) Pressure sore on sacrum (7) Diarrhea (8) Severe malnutrition Plan diarrhea, reorder iv fluids,BUN/creatinine 70/.91 11/2019, enteral hydration , BUN lower enteral fluids reji likely from infection, severe hypoalbuminemia with poor prognosis iv adjusted, bicitra started for acidosis Subjective ROS Limited/Unobtainable: Yes Objective Objective Last 24 Hour Vital Signs Date Time Temp Pulse Resp B/P (MAP) Pulse Ox O2 Delivery O2 Flow Rate FiO2 01/21/20 20:00 97.2 72 18 124/70 (88) 100 01/21/20 19:30 71 24 30 01/21/20 16:00 97.9 78 18 94/70 (78) 99 01/21/20 16:00 76 01/21/20 16:00 Mechanical Ventilator 01/21/20 16:00 30 01/21/20 15:14 76 24 30 01/21/20 12:00 Mechanical Ventilator 01/21/20 12:00 40 01/21/20 12:00 97.9 78 28 145/72 (96) 99 01/21/20 11:41 74 01/21/20 11:22 75 24 30 01/21/20 08:00 97.8 83 28 142/72 (95) 99 01/21/20 08:00 80 01/21/20 08:00 40 01/21/20 08:00 Mechanical Ventilator 01/21/20 07:04 78 24 30 01/21/20 04:00 Mechanical Ventilator 01/21/20 04:00 97.9 79 24 111/56 (74) 99 01/21/20 04:00 40 01/21/20 03:30 78 01/21/20 03:00 76 26 30 01/21/20 00:00 Mechanical Ventilator 01/21/20 00:00 40 01/21/20 00:00 97.6 77 24 113/60 (77) 100 01/20/20 23:30 74 01/20/20 22:58 75 26 30 Intake and Output 01/20/20 01/21/20 19:00 07:00 Intake Total 1730 ml 1897 ml Output Total 400 ml 306 ml Balance 1330 ml 1591 ml Intake Free Water 100 ml 300 ml IV Total 1500 ml 1487 ml Tube Feeding 130 ml 110 ml Output Urine Total 400 ml 306 ml # Bowel Movements 2 1 Laboratory Tests 01/21/20 05:08: White Blood Count 17.7H, Red Blood Count 3.00L, Hemoglobin 8.6L, Hematocrit 25.1L, Mean Corpuscular Volume 84, Mean Corpuscular Hemoglobin 28.6, Mean Corpuscular Hemoglobin Concent 34.0, Red Cell Distribution Width 17.4H, Platelet Count 112L, Mean Platelet Volume 11.5H, Neutrophils (%) (Auto) 84.3H, Lymphocytes (%) (Auto) 3.5L, Monocytes (%) (Auto) 9.0, Eosinophils (%) (Auto) 2.4, Basophils (%) (Auto) 0.8, Sodium Level 132L, Potassium Level 4.4, Chloride Level 103, Carbon Dioxide Level 16L, Anion Gap 13, Blood Urea Nitrogen 99H, Creatinine 3.9H, Estimat Glomerular Filtration Rate 19.8, Glucose Level 151H, Calcium Level 7.8L, Total Bilirubin 1.8H, Direct Bilirubin 1.5H, Aspartate Amino Transf (AST/SGOT) 475H, Alanine Aminotransferase (ALT/SGPT) 339H, Alkaline Phosphatase 209H, Total Protein 5.0L, Albumin 0.5L, Globulin 4.5, Albumin/Globulin Ratio 0.1L Height (Feet): 5 Height (Inches): 5.00 Weight (Pounds): 201 General Appearance: lethargic, other - on vent Cardiovascular: regular rhythm Respiratory/Chest: rhonchi - bilaterally Abdomen: non tender Neurologic: unresponsive Martin Yee MD Jan 21, 2020 21:06
[2020-01-22] VITALS: BP 123/79
[2020-01-22] MEDS: D5NS 1,000 ML IV SCH ×4 (00:40→20:20)
[2020-01-22 04:00] VITALS: BP 111/61
[2020-01-22] MEDS: Sodium Citrate 30ml GT SCH ×4 (05:00→23:01)
[2020-01-22] MEDS: Piperacillin/Tazobactam 3.375 GM in NS 110 ML IVPB SCH ×3 (05:00→21:07)
[2020-01-22] MEDS: Insulin NovoLOG Flexpen S/S (Mod) SUBQ SCH ×4 (05:00→23:02)
[2020-01-22] MEDS: Metoclopramide 10mg/2ml Inj IVP SCH (05:02)
[2020-01-22 06:13] LABS: HEMOGLOBIN 8.5 G/DL (14.2-18.0); MEAN CORPUSCULAR VOLUME 84 FL (80-99); PLATELET COUNT 118 K/UL (150-450); RED BLOOD COUNT 2.97 M/UL (4.70-6.10); RED CELL DISTRIBUTION WIDTH 17.6 % (11.6-14.8); WHITE BLOOD COUNT 21.8 K/UL (4.8-10.8)
[2020-01-22 06:30] LABS: INR 1.8 (0.9-1.1)
[2020-01-22 06:55] LABS: ALANINE AMINOTRANSFERASE 245 U/L (12-78); ALKALINE PHOSPHATASE 209 U/L (46-116); ANION GAP 14 mmol/L (5-15); ASPARTATE AMINO TRANSFERASE 261 U/L (15-37); BILIRUBIN,TOTAL 1.8 MG/DL (0.2-1.0); BLOOD UREA NITROGEN 90 mg/dL (7-18); CALCIUM 7.8 MG/DL (8.5-10.1); CARBON DIOXIDE 16 MMOL/L (21-32); CHLORIDE 107 MMOL/L (98-107); CREATININE 4.1 MG/DL (0.55-1.30); POTASSIUM 3.8 MMOL/L (3.5-5.1); SODIUM 137 MMOL/L (136-145)
[2020-01-22 06:56] LABS: ALBUMIN 0.5 G/DL (3.4-5.0)
[2020-01-22 06:57] LABS: BILIRUBIN,DIRECT 1.4 MG/DL (0.0-0.3)
[2020-01-22 08:00] VITALS: BP 105/69
--- NOTE | 2020-01-22 08:17 | Hematology/Onc Progress Note ---
Assessment/Plan Assessment/Plan Assessment and recs # Thrombocytopenia - potential causes multifactorial, evaluate liver and viral etiologies to begin, also could be related to underlying medications patient has received. May be due to DIC in this case, or consumption --> Hep panel and HIV negative --> US abd to evaluate for cirrhosis and hsm --> positive for mild hepatomegaly --> Peripheral smear ordered to evaluate for blasts /schistocytes --> abx and other meds have been reviewed --> ok for ppx if plt >50k w/ either heparin or lovenox --> Transfuse if Plt < 20k and fever, or if Plt < 10k without fever --> plt trend 41-->32-->21k-->20 -->61k-->45-->62-->51->38->55->50->70-->90--> 112 -->118 # Anemia due to Upper GI bleed, hematuria --> no evidence of hemolysis is noted --> smear noted --> anemia panel reviewed, ferritin high --> po iron ok --> for hematuria as per urology --> Pending endoscopy when clear from covid19 --> hgb trend: 9.1 ->8.3->6.9-->8.1-->8.3-->7.6 -->6.6-->10.5-->9.8-->9.3->8.5-- >8.6 -->8.5 --> prbc: 2 units 01/02, 01/12 # Leukocytosis due to e/coli/kleb pna --> on connor/wilma--> vanc --> wbc trend 23-->32-->17.1-->13.9-->10-->15-->17.7-->21.8 # Hyperkalemia --> kayxelate as needed --> k trend # ARF (acute renal failure) --> per renal # Hyponatremia # Gram negative pneumonia # Ventilator dependent respiratory failure # intracranial hemorrhage # paraplegia # Dysphagia with gtube The timing of this note does not necessarily reflect the time of the patient was seen. Greatly appreciate consultation. Subjective Allergies: Coded Allergies: No Known Allergies (Unverified , 10/07/19) Subjective 01/03obtunded, s/p rbc x2, hgb improved to 9.1, us abd reviewed, hematuria+ 01/04 plt are better, got 1 unit pf platets today as well, plt now 61k, less gi bleed overnight, some black tarry stool noted 01/05 nv, labs noted, hgb 8.5, no hemolysis noted, no bleeding, plt 83, egd tomorrow 01/06 egd for this am, results are pending, labs noted 01/09 no major changes, labs noted, no bleeding wbc higher, on abx 01/10 sdu, wbc improving, inr 1.4, vent, h/h stable, no distress 01/11 hgb 7.6, no tx required, repeat cbc for tomorrow, on vent 01/12 remains on vent, hgb 6.6, getting 2 iunits prbc today, will need picc 01/13 trach to vent, nepro feeds ongoing, hgb improved 10.5 01/14 s/p egd w/ peg, rectal tube, no acute events, h/h stable 01/15 remains obtunded, minimal blood in stool, will hold off on platelet administration 01/16 labs noted, nob leeding, meds reviewed, plt higher 01/18 sdu, nonverbal, no acute events, vent, vanc 01/19 remains on vent, with po vanc, wbc higher as is plt 01/20 sdu, obtunded, blisters to groin/scrotum area, labs reviewed 01/21 ctap and us abd reviewed, mild hepatomegaly, hgb 8.5, inr 1.8 Objective Objective Current Medications Medications (Trade) Dose Ordered Sig/[place] Route PRN Reason Start Time Stop Time Status Last Admin Dose Admin Al Hydroxide/Mg Hydroxide (Mylanta) 30 ml QIDPRN PRN GT stomach upset 01/14/20 16:45 02/13/20 16:44 Artificial Tears (Akwa-Tears) 1 drop EVERY 12 HOURS BOTH EYES 01/14/20 21:00 02/13/20 20:59 01/21/20 20:32 Dextrose (Dextrose 50%) 25 ml Q30M PRN IV Hypoglycemia 01/14/20 16:45 04/13/20 16:44 01/20/20 09:08 Dextrose (Dextrose 50%) 50 ml Q30M PRN IV hypoglycemia 01/14/20 16:45 04/13/20 16:44 01/14/20 21:25 Dextrose/Sodium Chloride 1,000 ml @ 150 mls/hr Q6H40M IV 01/20/20 09:30 02/19/20 09:29 01/22/20 00:40 Insulin Aspart (NovoLOG) No Dose Q6HR SUBQ 01/14/20 18:00 04/13/20 17:59 01/20/20 17:40 Insulin Detemir (Levemir) 18 units Q12HR SUBQ 01/19/20 21:00 04/18/20 20:59 Loperamide HCl (Imodium) 2 mg Q4H PRN ORAL Diarrhea 01/19/20 16:00 02/16/20 10:29 Metoclopramide HCl (Reglan) 5 mg Q6H IVP 01/17/20 12:00 02/16/20 11:59 01/22/20 05:02 Pantoprazole (Protonix) 40 mg DAILY IVP 01/20/20 09:00 02/19/20 08:59 01/21/20 08:41 Piperacillin Sod/ Tazobactam Sod 3.375 gm/Sodium Chloride 110 ml @ 27.5 mls/hr Q8H IVPB 01/21/20 14:00 01/28/20 13:59 01/22/20 05:00 Sodium Hypochlorite (Dakin's Half Strength) 1 applic DAILY TOPIC 01/15/20 09:00 02/14/20 08:59 01/21/20 08:53 Sodium Citrate (Bicitra) 30 ml EVERY 6 HOURS GT 01/20/20 18:00 02/19/20 17:59 01/22/20 05:00 Zinc Sulfate (Zinc Sulfate) 220 mg DAILY GT 01/15/20 09:00 04/14/20 08:59 01/20/20 09:11 Last 24 Hour Vital Signs Date Time Temp Pulse Resp B/P (MAP) Pulse Ox O2 Delivery O2 Flow Rate FiO2 01/22/20 04:00 30 01/22/20 04:00 Mechanical Ventilator 01/22/20 04:00 98.3 69 18 111/61 (78) 100 01/22/20 03:30 72 24 30 01/22/20 03:28 72 01/22/20 00:00 72 01/22/20 00:00 Mechanical Ventilator 01/22/20 00:00 30 01/22/20 00:00 98.9 79 18 123/79 (94) 99 01/21/20 22:56 70 24 30 01/21/20 20:00 Mechanical Ventilator 01/21/20 20:00 97.2 72 18 124/70 (88) 100 01/21/20 20:00 30 01/21/20 19:31 75 01/21/20 19:30 71 24 30 01/21/20 16:00 97.9 78 18 94/70 (78) 99 01/21/20 16:00 76 01/21/20 16:00 Mechanical Ventilator 01/21/20 16:00 30 01/21/20 15:14 76 24 30 01/21/20 12:00 Mechanical Ventilator 01/21/20 12:00 40 01/21/20 12:00 97.9 78 28 145/72 (96) 99 01/21/20 11:41 74 01/21/20 11:22 75 24 30 01/21/20 08:00 97.8 83 28 142/72 (95) 99 01/21/20 08:00 80 01/21/20 08:00 40 01/21/20 08:00 Mechanical Ventilator 01/21/20 07:04 78 24 30 01/21/20 04:00 Mechanical Ventilator 01/21/20 04:00 97.9 79 24 111/56 (74) 99 01/21/20 04:00 40 01/21/20 03:30 78 01/21/20 03:00 76 26 30 01/21/20 00:00 Mechanical Ventilator 01/21/20 00:00 40 01/21/20 00:00 97.6 77 24 113/60 (77) 100 01/20/20 23:30 74 01/20/20 22:58 75 26 30 01/20/20 20:00 Mechanical Ventilator 01/20/20 20:00 40 01/20/20 20:00 97.2 71 24 117/62 (80) 100 01/20/20 19:13 70 01/20/20 19:12 73 25 30 6/8/20 18:00 Mechanical Ventilator 01/20/20 16:00 Mechanical Ventilator 01/20/20 16:00 63 01/20/20 16:00 96.3 63 20 115/69 (84) 100 01/20/20 16:00 40 01/20/20 15:30 66 26 30 01/20/20 12:00 40 01/20/20 12:00 Mechanical Ventilator 01/20/20 12:00 57 01/20/20 11:15 95.9 58 20 115/70 (85) 100 01/20/20 11:00 60 24 30 Intake and Output 01/21/20 01/22/20 19:00 07:00 Intake Total 1832.5 ml 2315.5 ml Output Total 330 ml 375 ml Balance 1502.5 ml 1940.5 ml Intake Free Water 300 ml IV Total 1742.5 ml 1687.5 ml Tube Feeding 90 ml 328 ml Output Urine Total 330 ml 375 ml # Bowel Movements 4 4 Labs Test 01/20/20 09:26 01/21/20 05:08 01/22/20 05:20 White Blood Count 15.1 K/UL (4.8-10.8) 17.7 K/UL (4.8-10.8) 21.8 K/UL (4.8-10.8) Red Blood Count 2.93 M/UL (4.70-6.10) 3.00 M/UL (4.70-6.10) 2.97 M/UL (4.70-6.10) Hemoglobin 8.5 G/DL (14.2-18.0) 8.6 G/DL (14.2-18.0) 8.5 G/DL (14.2-18.0) Hematocrit 24.7 % (42.0-52.0) 25.1 % (42.0-52.0) 25.0 % (42.0-52.0) Mean Corpuscular Volume 84 FL (80-99) 84 FL (80-99) 84 FL (80-99) Mean Corpuscular Hemoglobin 29.0 PG (27.0-31.0) 28.6 PG (27.0-31.0) 28.8 PG (27.0-31.0) Mean Corpuscular Hemoglobin Concent 34.5 G/DL (32.0-36.0) 34.0 G/DL (32.0-36.0) 34.2 G/DL (32.0-36.0) Red Cell Distribution Width 17.8 % (11.6-14.8) 17.4 % (11.6-14.8) 17.6 % (11.6-14.8) Platelet Count 90 K/UL (150-450) 112 K/UL (150-450) 118 K/UL (150-450) Mean Platelet Volume 16.4 FL (6.5-10.1) 11.5 FL (6.5-10.1) 11.5 FL (6.5-10.1) Neutrophils (%) (Auto) % (45.0-75.0) 84.3 % (45.0-75.0) % (45.0-75.0) Lymphocytes (%) (Auto) % (20.0-45.0) 3.5 % (20.0-45.0) % (20.0-45.0) Monocytes (%) (Auto) % (1.0-10.0) 9.0 % (1.0-10.0) % (1.0-10.0) Eosinophils (%) (Auto) % (0.0-3.0) 2.4 % (0.0-3.0) % (0.0-3.0) Basophils (%) (Auto) % (0.0-2.0) 0.8 % (0.0-2.0) % (0.0-2.0) Differential Total Cells Counted 100 Neutrophils % (Manual) 83 % (45-75) Lymphocytes % (Manual) 6 % (20-45) Monocytes % (Manual) 9 % (1-10) Eosinophils % (Manual) 2 % (0-3) Basophils % (Manual) 0 % (0-2) Band Neutrophils 0 % (0-8) Platelet Estimate Decreased Platelet Morphology Normal Anisocytosis 1+ Sodium Level 129 MMOL/L (136-145) 132 MMOL/L (136-145) 137 MMOL/L (136-145) Potassium Level 5.3 MMOL/L (3.5-5.1) 4.4 MMOL/L (3.5-5.1) 3.8 MMOL/L (3.5-5.1) Chloride Level 100 MMOL/L (98-107) 103 MMOL/L (98-107) 107 MMOL/L (98-107) Carbon Dioxide Level 16 MMOL/L (21-32) 16 MMOL/L (21-32) 16 MMOL/L (21-32) Anion Gap 13 mmol/L (5-15) 13 mmol/L (5-15) 14 mmol/L (5-15) Blood Urea Nitrogen 109 mg/dL (7-18) 99 mg/dL (7-18) 90 mg/dL (7-18) Creatinine 3.9 MG/DL (0.55-1.30) 3.9 MG/DL (0.55-1.30) 4.1 MG/DL (0.55-1.30) Estimat Glomerular Filtration Rate 19.8 mL/min (>60) 19.8 mL/min (>60) 18.5 mL/min (>60) Glucose Level 167 MG/DL (74-106) 151 MG/DL (74-106) 184 MG/DL (74-106) Calcium Level 7.3 MG/DL (8.5-10.1) 7.8 MG/DL (8.5-10.1) 7.8 MG/DL (8.5-10.1) Total Bilirubin 1.9 MG/DL (0.2-1.0) 1.8 MG/DL (0.2-1.0) 1.8 MG/DL (0.2-1.0) Direct Bilirubin 1.8 MG/DL (0.0-0.3) 1.5 MG/DL (0.0-0.3) 1.4 MG/DL (0.0-0.3) Aspartate Amino Transf (AST/SGOT) 679 U/L (15-37) 475 U/L (15-37) 261 U/L (15-37) Alanine Aminotransferase (ALT/SGPT) 396 U/L (12-78) 339 U/L (12-78) 245 U/L (12-78) Alkaline Phosphatase 191 U/L (46-116) 209 U/L (46-116) 209 U/L (46-116) Total Protein 4.4 G/DL (6.4-8.2) 5.0 G/DL (6.4-8.2) 5.0 G/DL (6.4-8.2) Albumin 0.6 G/DL (3.4-5.0) 0.5 G/DL (3.4-5.0) 0.5 G/DL (3.4-5.0) Globulin 3.8 g/dL 4.5 g/dL 4.5 g/dL Albumin/Globulin Ratio 0.1 (1.0-2.7) Erythrocyte Sedimentation Rate 121 MM/HR (0-20) Prothrombin Time 19.1 SEC (9.30-11.50) Prothromb Time International Ratio 1.8 (0.9-1.1) Activated Partial Thromboplast Time 48 SEC (23-33) C-Reactive Protein, Quantitative 26.4 mg/dL (0.00-0.90) Amylase Level 40 U/L (25-115) Lipase 369 U/L (73-393) Height (Feet): 5 Height (Inches): 5.00 Weight (Pounds): 181 Objective Physical Exam: Vitals: reviewed General: NAD ++obtunded HEENT: nc, at, mouth guard+ Neck: supple++trach Chest: clear breath sounds bilaterally Cardiovascular: RRR, no s3, s4 Abdomen/GI: soft, nontender, nd ++gtube, rectal tube+ Extremities: no cce, normal range of motion, ++ Spasticity in the left upper extremity. Flaccid on the right, scrotal blisters++ Neuro: nonfocal : skinny+ Wilmer Turner MD Jan 22, 2020 08:17
[2020-01-22] MEDS: Dakin's 0.25% (Half Strength) 16oz TOPIC SCH (08:20)
[2020-01-22] MEDS: Pantoprazole Inj IVP SCH (08:20)
[2020-01-22] MEDS: Zinc Sulfate 220mg GT SCH (08:20)
[2020-01-22] MEDS: Levemir Flexpen SUBQ SCH ×2 (08:20→20:21)
--- NOTE | 2020-01-22 11:53 | General Progress Note ---
Assessment/Plan Assessment/Plan: sepsis anemia GIB thrombocytopenia hyponatremia ARF DM dysphagia with GT s/p EGD/PEG GTF reglan>>> will dc add lomotil imodium prn ppi repeat LFTS>>> ? shock liver>>>stable>>>ordered abd us fu abd CT, reviewed protonix daily will fu Subjective ROS Limited/Unobtainable: No Allergies: Coded Allergies: No Known Allergies (Unverified , 10/07/19) Objective Last 24 Hour Vital Signs Date Time Temp Pulse Resp B/P (MAP) Pulse Ox O2 Delivery O2 Flow Rate FiO2 01/22/20 08:00 Mechanical Ventilator 01/22/20 08:00 30 01/22/20 08:00 96.6 77 24 105/69 (81) 100 01/22/20 07:30 78 01/22/20 07:14 76 25 30 01/22/20 04:00 30 01/22/20 04:00 Mechanical Ventilator 01/22/20 04:00 98.3 69 18 111/61 (78) 100 01/22/20 03:30 72 24 30 01/22/20 03:28 72 01/22/20 00:00 72 01/22/20 00:00 Mechanical Ventilator 01/22/20 00:00 30 01/22/20 00:00 98.9 79 18 123/79 (94) 99 01/21/20 22:56 70 24 30 01/21/20 20:00 Mechanical Ventilator 01/21/20 20:00 97.2 72 18 124/70 (88) 100 01/21/20 20:00 30 01/21/20 19:31 75 01/21/20 19:30 71 24 30 01/21/20 16:00 97.9 78 18 94/70 (78) 99 01/21/20 16:00 76 01/21/20 16:00 Mechanical Ventilator 01/21/20 16:00 30 01/21/20 15:14 76 24 30 01/21/20 12:00 Mechanical Ventilator 01/21/20 12:00 40 01/21/20 12:00 97.9 78 28 145/72 (96) 99 Intake and Output 01/21/20 01/22/20 19:00 07:00 Intake Total 1832.5 ml 2315.5 ml Output Total 330 ml 375 ml Balance 1502.5 ml 1940.5 ml Intake Free Water 300 ml IV Total 1742.5 ml 1687.5 ml Tube Feeding 90 ml 328 ml Output Urine Total 330 ml 375 ml # Bowel Movements 4 4 Laboratory Tests 01/22/20 05:20: White Blood Count 21.8H, Red Blood Count 2.97L, Hemoglobin 8.5L, Hematocrit 25.0L, Mean Corpuscular Volume 84, Mean Corpuscular Hemoglobin 28.8, Mean Corpuscular Hemoglobin Concent 34.2, Red Cell Distribution Width 17.6H, Platelet Count 118L, Mean Platelet Volume 11.5H, Neutrophils (%) (Auto) , Lymphocytes (%) (Auto) , Monocytes (%) (Auto) , Eosinophils (%) (Auto) , Basophils (%) (Auto) , Differential Total Cells Counted 100, Neutrophils % ( Manual) 88H, Lymphocytes % (Manual) 3L, Monocytes % (Manual) 8, Eosinophils % ( Manual) 1, Basophils % (Manual) 0, Band Neutrophils 0, Platelet Estimate DecreasedL, Platelet Morphology Normal, Hypochromasia 2+, Anisocytosis 1+, Erythrocyte Sedimentation Rate 121H, Prothrombin Time 19.1H, Prothromb Time International Ratio 1.8H, Activated Partial Thromboplast Time 48H, Sodium Level 137, Potassium Level 3.8, Chloride Level 107, Carbon Dioxide Level 16L, Anion Gap 14, Blood Urea Nitrogen 90H, Creatinine 4.1H, Estimat Glomerular Filtration Rate 18.5, Glucose Level 184H, Calcium Level 7.8L, Total Bilirubin 1.8H, Direct Bilirubin 1.4H, Aspartate Amino Transf (AST/SGOT) 261H, Alanine Aminotransferase (ALT/SGPT) 245H, Alkaline Phosphatase 209H, C-Reactive Protein , Quantitative 26.4H, Total Protein 5.0L, Albumin 0.5L, Globulin 4.5, Amylase Level 40, Lipase 369 Height (Feet): 5 Height (Inches): 5.00 Weight (Pounds): 181 General Appearance: lethargic EENT: normal ENT inspection Neck: supple Cardiovascular: normal rate Respiratory/Chest: decreased breath sounds Abdomen: soft, hypoactive bowel sounds, distended Extremities: non-tender Toni Mckenzie MD Jan 22, 2020 11:53
[2020-01-22 12:00] VITALS: BP 104/59
[2020-01-22] MEDS ORDERED: Lomotil 2.5mg tab ORAL PRN (12:00)
--- NOTE | 2020-01-22 12:54 | Pulmonology Progress Note ---
Subjective ROS Limited/Unobtainable: No Constitutional: Denies: fever Gastrointestinal/Abdominal: Reports: diarrhea Allergies: Coded Allergies: No Known Allergies (Unverified , 10/07/19) All Systems: reviewed and negative except above Subjective care noted on vent no significant improvement renal function poor but sl improved wbc worse labs noted Objective Last 24 Hour Vital Signs Date Time Temp Pulse Resp B/P (MAP) Pulse Ox O2 Delivery O2 Flow Rate FiO2 01/22/20 08:00 Mechanical Ventilator 01/22/20 08:00 30 01/22/20 08:00 96.6 77 24 105/69 (81) 100 01/22/20 07:30 78 01/22/20 07:14 76 25 30 01/22/20 04:00 30 01/22/20 04:00 Mechanical Ventilator 01/22/20 04:00 98.3 69 18 111/61 (78) 100 01/22/20 03:30 72 24 30 01/22/20 03:28 72 01/22/20 00:00 72 01/22/20 00:00 Mechanical Ventilator 01/22/20 00:00 30 01/22/20 00:00 98.9 79 18 123/79 (94) 99 01/21/20 22:56 70 24 30 01/21/20 20:00 Mechanical Ventilator 01/21/20 20:00 97.2 72 18 124/70 (88) 100 01/21/20 20:00 30 01/21/20 19:31 75 01/21/20 19:30 71 24 30 01/21/20 16:00 97.9 78 18 94/70 (78) 99 01/21/20 16:00 76 01/21/20 16:00 Mechanical Ventilator 01/21/20 16:00 30 01/21/20 15:14 76 24 30 Intake and Output 01/21/20 01/22/20 19:00 07:00 Intake Total 1832.5 ml 2315.5 ml Output Total 330 ml 375 ml Balance 1502.5 ml 1940.5 ml Intake Free Water 300 ml IV Total 1742.5 ml 1687.5 ml Tube Feeding 90 ml 328 ml Output Urine Total 330 ml 375 ml # Bowel Movements 4 4 Objective WDWN trach clear breath sounds bilaterally without rhonchi or wheeze [id number] without MRG NABS nontender no HSM no CCE poor LOC reviewed and edited Laboratory Tests 01/22/20 05:20: White Blood Count 21.8H, Red Blood Count 2.97L, Hemoglobin 8.5L, Hematocrit 25.0L, Mean Corpuscular Volume 84, Mean Corpuscular Hemoglobin 28.8, Mean Corpuscular Hemoglobin Concent 34.2, Red Cell Distribution Width 17.6H, Platelet Count 118L, Mean Platelet Volume 11.5H, Neutrophils (%) (Auto) , Lymphocytes (%) (Auto) , Monocytes (%) (Auto) , Eosinophils (%) (Auto) , Basophils (%) (Auto) , Differential Total Cells Counted 100, Neutrophils % ( Manual) 88H, Lymphocytes % (Manual) 3L, Monocytes % (Manual) 8, Eosinophils % ( Manual) 1, Basophils % (Manual) 0, Band Neutrophils 0, Platelet Estimate DecreasedL, Platelet Morphology Normal, Hypochromasia 2+, Anisocytosis 1+, Erythrocyte Sedimentation Rate 121H, Prothrombin Time 19.1H, Prothromb Time International Ratio 1.8H, Activated Partial Thromboplast Time 48H, Sodium Level 137, Potassium Level 3.8, Chloride Level 107, Carbon Dioxide Level 16L, Anion Gap 14, Blood Urea Nitrogen 90H, Creatinine 4.1H, Estimat Glomerular Filtration Rate 18.5, Glucose Level 184H, Calcium Level 7.8L, Total Bilirubin 1.8H, Direct Bilirubin 1.4H, Aspartate Amino Transf (AST/SGOT) 261H, Alanine Aminotransferase (ALT/SGPT) 245H, Alkaline Phosphatase 209H, C-Reactive Protein , Quantitative 26.4H, Total Protein 5.0L, Albumin 0.5L, Globulin 4.5, Amylase Level 40, Lipase 369 Current Medications Medications (Trade) Dose Ordered Sig/[place] Route PRN Reason Start Time Stop Time Status Last Admin Dose Admin Al Hydroxide/Mg Hydroxide (Mylanta) 30 ml QIDPRN PRN GT stomach upset 01/14/20 16:45 02/13/20 16:44 Artificial Tears (Akwa-Tears) 1 drop EVERY 12 HOURS BOTH EYES 01/14/20 21:00 02/13/20 20:59 01/22/20 08:23 Dextrose (Dextrose 50%) 25 ml Q30M PRN IV Hypoglycemia 01/14/20 16:45 04/13/20 16:44 01/20/20 09:08 Dextrose (Dextrose 50%) 50 ml Q30M PRN IV hypoglycemia 01/14/20 16:45 04/13/20 16:44 01/14/20 21:25 Dextrose/Sodium Chloride 1,000 ml @ 150 mls/hr Q6H40M IV 01/20/20 09:30 02/19/20 09:29 01/22/20 08:23 Diphenoxylate HCl/ Atropine (Lomotil) 2.5 mg Q4H PRN ORAL Diarrhea 01/22/20 12:00 02/21/20 11:59 Insulin Aspart (NovoLOG) No Dose Q6HR SUBQ 01/14/20 18:00 04/13/20 17:59 01/20/20 17:40 Insulin Detemir (Levemir) 18 units Q12HR SUBQ 01/19/20 21:00 04/18/20 20:59 Loperamide HCl (Imodium) 2 mg Q4H PRN ORAL Diarrhea 01/19/20 16:00 02/16/20 10:29 Pantoprazole (Protonix) 40 mg DAILY IVP 01/20/20 09:00 02/19/20 08:59 01/22/20 08:20 Piperacillin Sod/ Tazobactam Sod 3.375 gm/Sodium Chloride 110 ml @ 27.5 mls/hr Q8H IVPB 01/21/20 14:00 01/28/20 13:59 01/22/20 05:00 Sodium Hypochlorite (Dakin's Half Strength) 1 applic DAILY TOPIC 01/15/20 09:00 02/14/20 08:59 01/22/20 08:20 Sodium Citrate (Bicitra) 30 ml EVERY 6 HOURS GT 01/20/20 18:00 02/19/20 17:59 01/22/20 05:00 Zinc Sulfate (Zinc Sulfate) 220 mg DAILY GT 01/15/20 09:00 04/14/20 08:59 01/22/20 08:20 Assessment/Plan Assessment/Plan IMPRESSION chronic respiratory failure Acute on chronic renal failure elevated K anemia GIB leukocytosis possible sepsis oral bleeding diarrhea transaminitis PLAN ID , GI and renal clearance vent as is monitor vitals hold feeds snf meds full code prognosis very poor for recovery - still with poor liver enzymes, renal function and leukocytosis consider dc to snf when labs improved impression, plan, and exam edited and reviewed in detail care discussed with Lorenzo Chase MD Jan 22, 2020 12:54
--- NOTE | 2020-01-22 13:05 | Infectious Diseases Prog Note ---
Assessment/Plan Assessment/Plan A 1. E. coli, Klebsiella & Pseudomonas pneumonia 2. Acute renal failure 3. Ventilator dependent respiratory failure 4. intracranial hemorrhage 5. paraplegia 6. leucocytosis 7. GI bleeding 8. Anemia 9. COVID19 test X 2: negative 10- Gangrene of feet 11. Thrombocytopenia 12. Hepatomegaly 13. sacral pressure ulcer 14. Cholelithiasis P 1. continue Zosyn 2. Poor prognosis Subjective ROS Limited/Unobtainable: Yes Constitutional: Denies: fever Allergies: Coded Allergies: No Known Allergies (Unverified , 10/07/19) Objective Vital Signs Last 24 Hour Vital Signs Date Time Temp Pulse Resp B/P (MAP) Pulse Ox O2 Delivery O2 Flow Rate FiO2 01/22/20 08:00 Mechanical Ventilator 01/22/20 08:00 30 01/22/20 08:00 96.6 77 24 105/69 (81) 100 01/22/20 07:30 78 01/22/20 07:14 76 25 30 01/22/20 04:00 30 01/22/20 04:00 Mechanical Ventilator 01/22/20 04:00 98.3 69 18 111/61 (78) 100 01/22/20 03:30 72 24 30 01/22/20 03:28 72 01/22/20 00:00 72 01/22/20 00:00 Mechanical Ventilator 01/22/20 00:00 30 01/22/20 00:00 98.9 79 18 123/79 (94) 99 01/21/20 22:56 70 24 30 01/21/20 20:00 Mechanical Ventilator 01/21/20 20:00 97.2 72 18 124/70 (88) 100 01/21/20 20:00 30 01/21/20 19:31 75 01/21/20 19:30 71 24 30 01/21/20 16:00 97.9 78 18 94/70 (78) 99 01/21/20 16:00 76 01/21/20 16:00 Mechanical Ventilator 01/21/20 16:00 30 01/21/20 15:14 76 24 30 Height (Feet): 5 Height (Inches): 5.00 Weight (Pounds): 181 HEENT: status post trach Respiratory/Chest: rhonchi - bilaterally, other - on ventilator Cardiovascular: normal rate Abdomen: soft, non tender, other - GT feeding Extremities: other - generalized edema, feet gagrene Skin: ulcers, other - sacral Neurologic/Psychiatric: unresponsiveness Laboratory Tests Test 01/22/20 05:20 White Blood Count 21.8 K/UL (4.8-10.8) H Red Blood Count 2.97 M/UL (4.70-6.10) L Hemoglobin 8.5 G/DL (14.2-18.0) L Hematocrit 25.0 % (42.0-52.0) L Mean Corpuscular Volume 84 FL (80-99) Mean Corpuscular Hemoglobin 28.8 PG (27.0-31.0) Mean Corpuscular Hemoglobin Concent 34.2 G/DL (32.0-36.0) Red Cell Distribution Width 17.6 % (11.6-14.8) H Platelet Count 118 K/UL (150-450) L Mean Platelet Volume 11.5 FL (6.5-10.1) H Neutrophils (%) (Auto) % (45.0-75.0) Lymphocytes (%) (Auto) % (20.0-45.0) Monocytes (%) (Auto) % (1.0-10.0) Eosinophils (%) (Auto) % (0.0-3.0) Basophils (%) (Auto) % (0.0-2.0) Differential Total Cells Counted 100 Neutrophils % (Manual) 88 % (45-75) H Lymphocytes % (Manual) 3 % (20-45) L Monocytes % (Manual) 8 % (1-10) Eosinophils % (Manual) 1 % (0-3) Basophils % (Manual) 0 % (0-2) Band Neutrophils 0 % (0-8) Platelet Estimate Decreased L Platelet Morphology Normal Hypochromasia 2+ Anisocytosis 1+ Erythrocyte Sedimentation Rate 121 MM/HR (0-20) H Prothrombin Time 19.1 SEC (9.30-11.50) H Prothromb Time International Ratio 1.8 (0.9-1.1) H Activated Partial Thromboplast Time 48 SEC (23-33) H Sodium Level 137 MMOL/L (136-145) Potassium Level 3.8 MMOL/L (3.5-5.1) Chloride Level 107 MMOL/L (98-107) Carbon Dioxide Level 16 MMOL/L (21-32) L Anion Gap 14 mmol/L (5-15) Blood Urea Nitrogen 90 mg/dL (7-18) H Creatinine 4.1 MG/DL (0.55-1.30) H Estimat Glomerular Filtration Rate 18.5 mL/min (>60) Glucose Level 184 MG/DL (74-106) H Calcium Level 7.8 MG/DL (8.5-10.1) L Total Bilirubin 1.8 MG/DL (0.2-1.0) H Direct Bilirubin 1.4 MG/DL (0.0-0.3) H Aspartate Amino Transf (AST/SGOT) 261 U/L (15-37) H Alanine Aminotransferase (ALT/SGPT) 245 U/L (12-78) H Alkaline Phosphatase 209 U/L (46-116) H C-Reactive Protein, Quantitative 26.4 mg/dL (0.00-0.90) H Total Protein 5.0 G/DL (6.4-8.2) L Albumin 0.5 G/DL (3.4-5.0) L Globulin 4.5 g/dL Amylase Level 40 U/L (25-115) Lipase 369 U/L (73-393) Current Medications Medications (Trade) Dose Ordered Sig/[place] Route PRN Reason Start Time Stop Time Status Last Admin Dose Admin Al Hydroxide/Mg Hydroxide (Mylanta) 30 ml QIDPRN PRN GT stomach upset 01/14/20 16:45 02/13/20 16:44 Artificial Tears (Akwa-Tears) 1 drop EVERY 12 HOURS BOTH EYES 01/14/20 21:00 02/13/20 20:59 01/22/20 08:23 Dextrose (Dextrose 50%) 25 ml Q30M PRN IV Hypoglycemia 01/14/20 16:45 04/13/20 16:44 01/20/20 09:08 Dextrose (Dextrose 50%) 50 ml Q30M PRN IV hypoglycemia 01/14/20 16:45 04/13/20 16:44 01/14/20 21:25 Dextrose/Sodium Chloride 1,000 ml @ 150 mls/hr Q6H40M IV 01/20/20 09:30 02/19/20 09:29 01/22/20 08:23 Diphenoxylate HCl/ Atropine (Lomotil) 2.5 mg Q4H PRN ORAL Diarrhea 01/22/20 12:00 02/21/20 11:59 Insulin Aspart (NovoLOG) No Dose Q6HR SUBQ 01/14/20 18:00 04/13/20 17:59 01/20/20 17:40 Insulin Detemir (Levemir) 18 units Q12HR SUBQ 01/19/20 21:00 04/18/20 20:59 Loperamide HCl (Imodium) 2 mg Q4H PRN ORAL Diarrhea 01/19/20 16:00 02/16/20 10:29 Pantoprazole (Protonix) 40 mg DAILY IVP 01/20/20 09:00 02/19/20 08:59 01/22/20 08:20 Piperacillin Sod/ Tazobactam Sod 3.375 gm/Sodium Chloride 110 ml @ 27.5 mls/hr Q8H IVPB 01/21/20 14:00 01/28/20 13:59 01/22/20 05:00 Sodium Hypochlorite (Dakin's Half Strength) 1 applic DAILY TOPIC 01/15/20 09:00 02/14/20 08:59 01/22/20 08:20 Sodium Citrate (Bicitra) 30 ml EVERY 6 HOURS GT 01/20/20 18:00 02/19/20 17:59 01/22/20 05:00 Zinc Sulfate (Zinc Sulfate) 220 mg DAILY GT 01/15/20 09:00 04/14/20 08:59 01/22/20 08:20 Anastacio Bustillo MD Jan 22, 2020 13:05
--- NOTE | 2020-01-22 14:15 | Surgery Progress Note ---
Surgery Progress Note Subjective Procedure Performed right femoral central venous catheter removal Additional Comments no acute events labs noted exam stable comfortable micro reviewed Objective Last 24 Hour Vital Signs Date Time Temp Pulse Resp B/P (MAP) Pulse Ox O2 Delivery O2 Flow Rate FiO2 01/22/20 12:00 30 01/22/20 12:00 Mechanical Ventilator 01/22/20 12:00 95.7 77 24 104/59 (74) 100 01/22/20 08:00 Mechanical Ventilator 01/22/20 08:00 30 01/22/20 08:00 96.6 77 24 105/69 (81) 100 01/22/20 07:30 78 01/22/20 07:14 76 25 30 01/22/20 04:00 30 01/22/20 04:00 Mechanical Ventilator 01/22/20 04:00 98.3 69 18 111/61 (78) 100 01/22/20 03:30 72 24 30 01/22/20 03:28 72 01/22/20 00:00 72 01/22/20 00:00 Mechanical Ventilator 01/22/20 00:00 30 01/22/20 00:00 98.9 79 18 123/79 (94) 99 01/21/20 22:56 70 24 30 01/21/20 20:00 Mechanical Ventilator 01/21/20 20:00 97.2 72 18 124/70 (88) 100 01/21/20 20:00 30 01/21/20 19:31 75 01/21/20 19:30 71 24 30 01/21/20 16:00 97.9 78 18 94/70 (78) 99 01/21/20 16:00 76 01/21/20 16:00 Mechanical Ventilator 01/21/20 16:00 30 01/21/20 15:14 76 24 30 I&O Intake and Output 01/21/20 01/22/20 19:00 07:00 Intake Total 1832.5 ml 2315.5 ml Output Total 330 ml 375 ml Balance 1502.5 ml 1940.5 ml Intake Free Water 300 ml IV Total 1742.5 ml 1687.5 ml Tube Feeding 90 ml 328 ml Output Urine Total 330 ml 375 ml # Bowel Movements 4 4 Dressing: other Wound: other Drains: other Cardiovascular: RSR Respiratory: decreased breath sounds Abdomen: soft, non-tender, present bowel sounds Extremities: no cyanosis Laboratory Tests Test 01/22/20 05:20 White Blood Count 21.8 K/UL (4.8-10.8) H Red Blood Count 2.97 M/UL (4.70-6.10) L Hemoglobin 8.5 G/DL (14.2-18.0) L Hematocrit 25.0 % (42.0-52.0) L Mean Corpuscular Volume 84 FL (80-99) Mean Corpuscular Hemoglobin 28.8 PG (27.0-31.0) Mean Corpuscular Hemoglobin Concent 34.2 G/DL (32.0-36.0) Red Cell Distribution Width 17.6 % (11.6-14.8) H Platelet Count 118 K/UL (150-450) L Mean Platelet Volume 11.5 FL (6.5-10.1) H Neutrophils (%) (Auto) % (45.0-75.0) Lymphocytes (%) (Auto) % (20.0-45.0) Monocytes (%) (Auto) % (1.0-10.0) Eosinophils (%) (Auto) % (0.0-3.0) Basophils (%) (Auto) % (0.0-2.0) Differential Total Cells Counted 100 Neutrophils % (Manual) 88 % (45-75) H Lymphocytes % (Manual) 3 % (20-45) L Monocytes % (Manual) 8 % (1-10) Eosinophils % (Manual) 1 % (0-3) Basophils % (Manual) 0 % (0-2) Band Neutrophils 0 % (0-8) Platelet Estimate Decreased L Platelet Morphology Normal Hypochromasia 2+ Anisocytosis 1+ Erythrocyte Sedimentation Rate 121 MM/HR (0-20) H Prothrombin Time 19.1 SEC (9.30-11.50) H Prothromb Time International Ratio 1.8 (0.9-1.1) H Activated Partial Thromboplast Time 48 SEC (23-33) H Sodium Level 137 MMOL/L (136-145) Potassium Level 3.8 MMOL/L (3.5-5.1) Chloride Level 107 MMOL/L (98-107) Carbon Dioxide Level 16 MMOL/L (21-32) L Anion Gap 14 mmol/L (5-15) Blood Urea Nitrogen 90 mg/dL (7-18) H Creatinine 4.1 MG/DL (0.55-1.30) H Estimat Glomerular Filtration Rate 18.5 mL/min (>60) Glucose Level 184 MG/DL (74-106) H Calcium Level 7.8 MG/DL (8.5-10.1) L Total Bilirubin 1.8 MG/DL (0.2-1.0) H Direct Bilirubin 1.4 MG/DL (0.0-0.3) H Aspartate Amino Transf (AST/SGOT) 261 U/L (15-37) H Alanine Aminotransferase (ALT/SGPT) 245 U/L (12-78) H Alkaline Phosphatase 209 U/L (46-116) H C-Reactive Protein, Quantitative 26.4 mg/dL (0.00-0.90) H Total Protein 5.0 G/DL (6.4-8.2) L Albumin 0.5 G/DL (3.4-5.0) L Globulin 4.5 g/dL Amylase Level 40 U/L (25-115) Lipase 369 U/L (73-393) Plan Problems: (1) Hyponatremia (2) ARF (acute renal failure) (3) Hyperkalemia (4) Pressure sore on sacrum Assessment & Plan: Pt presented on admission with Sacral Pressure injury and Necrosis Both Both R lower ext, R foot and L foot. Generalized edema noted. Both upper ext noted to have multiple serous blisters ,some of which are weeping serous exudate. Full thickness Sacral Pressure Injury with undermined Borders. Base of wound is 75% loose necrotic tissue,25% bree. Bone exposure at base of wound. Area of necrosis noted at distal aspect of wound in space between wound and anus.Edges are macerated. Wound is malodorous.(L)9.5cm x (W)9.2cm x (D)2.9cm,undermining clockwise 10-3 by 3.8cm @12 o'clock. Scattered areas of hyperpigmentation noted to R and L clefts of buttocks. Unable to determine exudate as pt is continuously oozing large amt of semi soft black stool and leaking into wound because of close proximity to his rectum. At upper, R gluteal cheek is additional Pressure Injury with small amt Biofilm at base of wound. Edges are pink and adherent to base of wound. No exudate noted.(L)3cm x (W)2.6cm. Medially to distal Tibia,and extending to R foot is necrotic and malodorous.Wound is partially opened at posterior R tibia but is dry . L foot is necrotic and malodorous. No exudate noted. Tx.Plan: Cleanse Sacral wound with Dakin's 0.25% archana.. Loosely Pack wound with Dakin's moistened Kerlix.Apply Moisture Barrier Paste periwound.Cover with Optifoam drsg.Change Daily and PRN. Cleanse R lower ext and R foot with Dakin's 0.25% Archana. Cover wounds with ABD Pads.Wrap with Kerlix Daily and prn. Cleanse L foot Wounds with Dakin's 0.25% Archana. Cover wounds with ABD Pads and wrap with Kerlix Daily and prn. (5) Upper GI bleed Assessment & Plan: Patient with sepsis, abnormal labs, GI bleed, pending COVID eval. Labs noted. Exam reviewed. Chest x-ray noted as below. Discussed with GI. Plan for endoscopy once COVID status evaluated. Trend hemoglobin for now transfuse PRN. G-tube is functional and okay for medications and will plan tube feeds accordingly. No acute surgical intervention as patient is actively bleeding. Proton pump inhibitor recommended and Rx as written. Will follow with recommendations thank you for let me participate in patient's care plt low anemia prognosis guarded no active GI bleeding noted Status post PEG Tolerating tube feeds but still having diarrhea Difficult with rectal tube slides right out likely from spinal injury Anasarca stable No active bleeding line Free currently will monitor closely There is a tracheostomy in place. Vascularity is normal. Hazy densities in the lung bases may be layering effusions. Cardiac and mediastinal silhouette are within normal limits. The bony thorax appear unremarkable. line removed will monitor for bleeding IMPRESSION: Bibasilar hazy densities perhaps layering effusions. right fem line not functional noted manipulation as suture was dislodged. line replaced 1. Two or three gastric AVMs. 2. Ulcer with a small visible vessel, status post gold probe bipolar cauterization. DAILY ESTIMATED NEEDS: Needs based on Critical Care, Wounds, TR / 61kg 25-30 kcals/kg 5670-7673 total kcals 0.8-1.25 (increase w/ renal improvement) g protein/kg 49-76 g total protein 25-30 mL/kg 3148-8183 total fluid mLs NUTRITION DIAGNOSIS: * Swallowing difficulty R/T respiratory status, dysphagia as evidenced by trach/vent dep, PEG dep. * Increased kcal/prot intake needs R/T wound healing as evidenced by admitted w/ multiple wounds including full thickness wound @ sacrum, pressure Injury with small amt Biofilm at base of wound @ upper R gluteal cheek, necrotic wound @ medial to distal Tibia,and extending to R foot and L foot * Altered nutrition related lab R/T TR as evidenced by elev BUN (215-> 134), elev creat (5.2->4.3), low Na (124 -> wnl), elev K (6.7 -> wnl) CURRENT TF:TF HELD ENTERAL NUTRITION RECOMMENDATIONS: Nepro @ 38ml/hr x 24 hrs to provide 912ml, 1642kcal, 74g prot, 663ml free water * Once medically appropriate to feed, initiate TF -> rec Nepro at this time given TR (Creat 5.2 -> 4.3) w/ elev K upon adm * Initiate Nepro @ 18ml/hr x 6hrs, advance 10ml q 4-6 hrs as tolerated to goal rate * HOB over 30 degrees/ water flush per MD Monitor renal fxn closely, need to continue renal TF formula ADDITIONAL RECOMMENDATIONS: * Per SNF: HT=62" WT= 135lbs (12/25/19) * Monitor renal fxn and lytes (slowly improving renal fxn) * Monitor ability to resume TF- TF holding cont to be needed, consider initiating parenteral nutrition * Wound healing: add Ajay BID w/ TF order * Monitor for hypoglycemia: rec to hold ALL insulin while pt is NPO Study is somewhat limited due to anasarca and overlying bowel gas, midline gastrostomy bandages. Gallbladder demonstrates sludge and tiny stones. The gallbladder wall is mildly thickened. Sonographic Velázquez sign could not be assessed. Common bile duct measures 4 mm in diameter. No intrahepatic biliary ductal dilatation. The liver is enlarged. It demonstrates normal echogenicity. No focal abnormality. Small amount of ascites fluid is seen at the anterior liver surface and adjacent to the gallbladder, left upper quadrant, and in the pelvis Portal vein and hepatic veins are patent. Pancreas is obscured by bowel gas. Spleen is unremarkable. Left kidney measures 11.4 cm in length. Right kidney measures 10.9 cm length. Both kidneys demonstrate normal echogenicity. There is no hydronephrosis. No focal abnormality . Abdominal aorta is partially obscured by bowel gas, visualized portions are non-aneurysmal . There are small bilateral pleural effusions Javid Singh Jan 22, 2020 14:15
[2020-01-22 16:00] VITALS: BP 101/51
[2020-01-22] MEDS ORDERED: NS 275ml ONE (18:51)
[2020-01-22] MEDS ORDERED: D5NS 1000ml IV ONE (18:51)
[2020-01-22 20:00] VITALS: BP 117/71
[2020-01-22] MEDS ORDERED: D5NS 1,000 ML IV SCH (20:51)
--- NOTE | 2020-01-22 20:52 | Nephrology Progress Note ---
Assessment/Plan Problem List: (1) Respiratory failure (2) ARF (acute renal failure) (3) Hyponatremia (4) Hyperkalemia (5) Upper GI bleed (6) Pressure sore on sacrum (7) Diarrhea (8) Severe malnutrition Plan diarrhea, reorder iv fluids,BUN/creatinine 70/.91 11/2019, enteral hydration , BUN lower enteral fluids reji likely from infection, severe hypoalbuminemia and anasarca with poor prognosis iv adjusted, bicitra started for acidosis Subjective ROS Limited/Unobtainable: Yes Objective Objective Last 24 Hour Vital Signs Date Time Temp Pulse Resp B/P (MAP) Pulse Ox O2 Delivery O2 Flow Rate FiO2 01/22/20 20:00 97.7 78 24 117/71 (86) 99 01/22/20 19:08 78 27 30 01/22/20 16:00 30 01/22/20 16:00 Mechanical Ventilator 01/22/20 16:00 97.2 71 24 101/51 (68) 100 01/22/20 16:00 78 01/22/20 15:12 71 25 30 01/22/20 12:00 30 01/22/20 12:00 Mechanical Ventilator 01/22/20 12:00 95.7 77 24 104/59 (74) 100 01/22/20 11:39 71 01/22/20 10:48 78 26 30 01/22/20 08:00 Mechanical Ventilator 01/22/20 08:00 30 01/22/20 08:00 96.6 77 24 105/69 (81) 100 01/22/20 07:30 78 01/22/20 07:14 76 25 30 01/22/20 04:00 30 01/22/20 04:00 Mechanical Ventilator 01/22/20 04:00 98.3 69 18 111/61 (78) 100 01/22/20 03:30 72 24 30 01/22/20 03:28 72 01/22/20 00:00 72 01/22/20 00:00 Mechanical Ventilator 01/22/20 00:00 30 01/22/20 00:00 98.9 79 18 123/79 (94) 99 01/21/20 22:56 70 24 30 Intake and Output 01/21/20 01/22/20 19:00 07:00 Intake Total 1832.5 ml 2315.5 ml Output Total 330 ml 375 ml Balance 1502.5 ml 1940.5 ml Intake Free Water 300 ml IV Total 1742.5 ml 1687.5 ml Tube Feeding 90 ml 328 ml Output Urine Total 330 ml 375 ml # Bowel Movements 4 4 Laboratory Tests 01/22/20 05:20: White Blood Count 21.8H, Red Blood Count 2.97L, Hemoglobin 8.5L, Hematocrit 25.0L, Mean Corpuscular Volume 84, Mean Corpuscular Hemoglobin 28.8, Mean Corpuscular Hemoglobin Concent 34.2, Red Cell Distribution Width 17.6H, Platelet Count 118L, Mean Platelet Volume 11.5H, Neutrophils (%) (Auto) , Lymphocytes (%) (Auto) , Monocytes (%) (Auto) , Eosinophils (%) (Auto) , Basophils (%) (Auto) , Differential Total Cells Counted 100, Neutrophils % ( Manual) 88H, Lymphocytes % (Manual) 3L, Monocytes % (Manual) 8, Eosinophils % ( Manual) 1, Basophils % (Manual) 0, Band Neutrophils 0, Platelet Estimate DecreasedL, Platelet Morphology Normal, Hypochromasia 2+, Anisocytosis 1+, Erythrocyte Sedimentation Rate 121H, Prothrombin Time 19.1H, Prothromb Time International Ratio 1.8H, Activated Partial Thromboplast Time 48H, Sodium Level 137, Potassium Level 3.8, Chloride Level 107, Carbon Dioxide Level 16L, Anion Gap 14, Blood Urea Nitrogen 90H, Creatinine 4.1H, Estimat Glomerular Filtration Rate 18.5, Glucose Level 184H, Calcium Level 7.8L, Total Bilirubin 1.8H, Direct Bilirubin 1.4H, Aspartate Amino Transf (AST/SGOT) 261H, Alanine Aminotransferase (ALT/SGPT) 245H, Alkaline Phosphatase 209H, C-Reactive Protein , Quantitative 26.4H, Total Protein 5.0L, Albumin 0.5L, Globulin 4.5, Amylase Level 40, Lipase 369 Height (Feet): 5 Height (Inches): 5.00 Weight (Pounds): 181 General Appearance: lethargic, other - on vent Cardiovascular: regular rhythm Respiratory/Chest: rhonchi - bilaterally Abdomen: soft Extremities: moderate edema, other - gangrene Neurologic: unresponsive Martin Yee MD Jan 22, 2020 20:52
[2020-01-23] VITALS (7 sets, daily range): BP systolic 103–148; BP diastolic 56–74
[2020-01-23 05:02] LABS: HEMATOCRIT 24.4 % (42.0-52.0); HEMOGLOBIN 8.3 G/DL (14.2-18.0); MEAN CORPUSCULAR VOLUME 86 FL (80-99); PLATELET COUNT 106 K/UL (150-450); RED BLOOD COUNT 2.84 M/UL (4.70-6.10); RED CELL DISTRIBUTION WIDTH 17.4 % (11.6-14.8); WHITE BLOOD COUNT 16.9 K/UL (4.8-10.8)
[2020-01-23] MEDS: Piperacillin/Tazobactam 3.375 GM in NS 110 ML IVPB SCH ×3 (05:02→21:14)
[2020-01-23] MEDS: Sodium Citrate 30ml GT SCH ×3 (05:02→18:41)
[2020-01-23] MEDS: Insulin NovoLOG Flexpen S/S (Mod) SUBQ SCH ×3 (05:03→18:00)
[2020-01-23 05:40] LABS: ANION GAP 15 mmol/L (5-15); BLOOD UREA NITROGEN 89 mg/dL (7-18); CALCIUM 8.1 MG/DL (8.5-10.1); CARBON DIOXIDE 16 MMOL/L (21-32); CHLORIDE 111 MMOL/L (98-107); CREATININE 4.1 MG/DL (0.55-1.30); SODIUM 142 MMOL/L (136-145)
--- NOTE | 2020-01-23 08:43 | Pulmonology Progress Note ---
Subjective ROS Limited/Unobtainable: Yes Constitutional: Denies: fever Gastrointestinal/Abdominal: Reports: diarrhea Allergies: Coded Allergies: No Known Allergies (Unverified , 10/07/19) All Systems: reviewed and negative except above Subjective care noted on vent no significant improvement renal function poor wbc better labs noted Objective Last 24 Hour Vital Signs Date Time Temp Pulse Resp B/P (MAP) Pulse Ox O2 Delivery O2 Flow Rate FiO2 01/23/20 07:30 77 25 30 01/23/20 04:00 97.8 73 22 113/74 (87) 100 01/23/20 04:00 Mechanical Ventilator 01/23/20 04:00 30 01/23/20 03:32 76 01/23/20 03:12 76 30 30 01/23/20 00:00 97.2 74 24 103/56 (72) 100 01/23/20 00:00 30 01/23/20 00:00 Mechanical Ventilator 01/22/20 23:29 77 01/22/20 22:46 74 26 30 01/22/20 20:00 Mechanical Ventilator 01/22/20 20:00 97.7 78 24 117/71 (86) 99 01/22/20 20:00 30 01/22/20 19:08 78 27 30 01/22/20 19:03 78 01/22/20 16:00 30 01/22/20 16:00 Mechanical Ventilator 01/22/20 16:00 97.2 71 24 101/51 (68) 100 01/22/20 16:00 78 01/22/20 15:12 71 25 30 01/22/20 12:00 30 01/22/20 12:00 Mechanical Ventilator 01/22/20 12:00 95.7 77 24 104/59 (74) 100 01/22/20 11:39 71 01/22/20 10:48 78 26 30 Intake and Output 01/22/20 01/23/20 19:00 07:00 Intake Total 2096.5 ml 1436.5 ml Output Total 250 ml 235 ml Balance 1846.5 ml 1201.5 ml Intake Free Water 70 ml 300 ml IV Total 1582.5 ml 729.5 ml Tube Feeding 444 ml 407 ml Output Urine Total 250 ml 235 ml # Bowel Movements 4 4 Objective WDWN trach clear breath sounds bilaterally without rhonchi or wheeze [id number] without MRG NABS nontender no HSM no CCE poor LOC reviewed and edited Laboratory Tests 01/23/20 02:55: White Blood Count 16.9H, Red Blood Count 2.84L, Hemoglobin 8.3L, Hematocrit 24.4L, Mean Corpuscular Volume 86, Mean Corpuscular Hemoglobin 29.1, Mean Corpuscular Hemoglobin Concent 33.9, Red Cell Distribution Width 17.4H, Platelet Count 106L, Mean Platelet Volume 9.2, Neutrophils (%) (Auto) , Lymphocytes (%) (Auto) , Monocytes (%) (Auto) , Eosinophils (%) (Auto) , Basophils (%) (Auto) , Neutrophils % (Manual) [Pending], Lymphocytes % (Manual) [Pending], Platelet Estimate [Pending], Platelet Morphology [Pending], Sodium Level 142, Potassium Level 3.0L, Chloride Level 111H, Carbon Dioxide Level 16L, Anion Gap 15, Blood Urea Nitrogen 89H, Creatinine 4.1H, Estimat Glomerular Filtration Rate 18.5, Glucose Level 194H, Calcium Level 8.1L Current Medications Medications (Trade) Dose Ordered Sig/[place] Route PRN Reason Start Time Stop Time Status Last Admin Dose Admin Al Hydroxide/Mg Hydroxide (Mylanta) 30 ml QIDPRN PRN GT stomach upset 01/14/20 16:45 02/13/20 16:44 Artificial Tears (Akwa-Tears) 1 drop EVERY 12 HOURS BOTH EYES 01/14/20 21:00 02/13/20 20:59 01/22/20 20:21 Dextrose (Dextrose 50%) 25 ml Q30M PRN IV Hypoglycemia 01/14/20 16:45 04/13/20 16:44 01/20/20 09:08 Dextrose (Dextrose 50%) 50 ml Q30M PRN IV hypoglycemia 01/14/20 16:45 04/13/20 16:44 01/14/20 21:25 Dextrose/Sodium Chloride 1,000 ml @ 50 mls/hr Q20H IV 01/22/20 20:51 02/21/20 20:50 01/22/20 21:08 Diphenoxylate HCl/ Atropine (Lomotil) 2.5 mg Q4H PRN ORAL Diarrhea 01/22/20 12:00 02/21/20 11:59 Insulin Aspart (NovoLOG) No Dose Q6HR SUBQ 01/14/20 18:00 04/13/20 17:59 01/23/20 05:03 Insulin Detemir (Levemir) 18 units Q12HR SUBQ 01/19/20 21:00 04/18/20 20:59 Loperamide HCl (Imodium) 2 mg Q4H PRN ORAL Diarrhea 01/19/20 16:00 02/16/20 10:29 Pantoprazole (Protonix) 40 mg DAILY IVP 01/20/20 09:00 02/19/20 08:59 01/22/20 08:20 Piperacillin Sod/ Tazobactam Sod 3.375 gm/Sodium Chloride 110 ml @ 27.5 mls/hr Q8H IVPB 01/21/20 14:00 01/28/20 13:59 01/23/20 05:02 Sodium Hypochlorite (Dakin's Half Strength) 1 applic DAILY TOPIC 01/15/20 09:00 02/14/20 08:59 01/22/20 08:20 Sodium Citrate (Bicitra) 30 ml EVERY 6 HOURS GT 01/20/20 18:00 02/19/20 17:59 01/23/20 05:02 Zinc Sulfate (Zinc Sulfate) 220 mg DAILY GT 01/15/20 09:00 04/14/20 08:59 01/22/20 08:20 Assessment/Plan Assessment/Plan IMPRESSION chronic respiratory failure Acute on chronic renal failure elevated K anemia GIB leukocytosis possible sepsis oral bleeding diarrhea transaminitis PLAN ID , GI and renal clearance vent as is monitor vitals snf meds full code replace K prognosis very poor for recovery - still with poor liver enzymes, renal function and leukocytosis consider dc to snf when labs improved impression, plan, and exam edited and reviewed in detail care discussed with Lorenzo Chase MD Jan 23, 2020 08:43
[2020-01-23] MEDS: Dakin's 0.25% (Half Strength) 16oz TOPIC SCH (09:00)
[2020-01-23] MEDS: Levemir Flexpen SUBQ SCH ×2 (09:00→21:00)
[2020-01-23] MEDS: Zinc Sulfate 220mg GT SCH (10:19)
[2020-01-23] MEDS: Pantoprazole Inj IVP SCH (10:19)
--- NOTE | 2020-01-23 10:45 | General Progress Note ---
Assessment/Plan Assessment/Plan: sepsis anemia GIB thrombocytopenia hyponatremia ARF DM dysphagia with GT s/p EGD/PEG GTF lomotil prn imodium prn ppi elevated LFTS>>> stable us reviewed fu abd CT, reviewed protonix daily will fu Subjective ROS Limited/Unobtainable: No Allergies: Coded Allergies: No Known Allergies (Unverified , 10/07/19) Objective Last 24 Hour Vital Signs Date Time Temp Pulse Resp B/P (MAP) Pulse Ox O2 Delivery O2 Flow Rate FiO2 01/23/20 07:30 77 25 30 01/23/20 04:00 97.8 73 22 113/74 (87) 100 01/23/20 04:00 Mechanical Ventilator 01/23/20 04:00 30 01/23/20 03:32 76 01/23/20 03:12 76 30 30 01/23/20 00:00 97.2 74 24 103/56 (72) 100 01/23/20 00:00 30 01/23/20 00:00 Mechanical Ventilator 01/22/20 23:29 77 01/22/20 22:46 74 26 30 01/22/20 20:00 Mechanical Ventilator 01/22/20 20:00 97.7 78 24 117/71 (86) 99 01/22/20 20:00 30 01/22/20 19:08 78 27 30 01/22/20 19:03 78 01/22/20 16:00 30 01/22/20 16:00 Mechanical Ventilator 01/22/20 16:00 97.2 71 24 101/51 (68) 100 01/22/20 16:00 78 01/22/20 15:12 71 25 30 01/22/20 12:00 30 01/22/20 12:00 Mechanical Ventilator 01/22/20 12:00 95.7 77 24 104/59 (74) 100 01/22/20 11:39 71 01/22/20 10:48 78 26 30 Intake and Output 01/22/20 01/23/20 19:00 07:00 Intake Total 2096.5 ml 1436.5 ml Output Total 250 ml 235 ml Balance 1846.5 ml 1201.5 ml Intake Free Water 70 ml 300 ml IV Total 1582.5 ml 729.5 ml Tube Feeding 444 ml 407 ml Output Urine Total 250 ml 235 ml # Bowel Movements 4 4 Laboratory Tests 01/23/20 02:55: White Blood Count 16.9H, Red Blood Count 2.84L, Hemoglobin 8.3L, Hematocrit 24.4L, Mean Corpuscular Volume 86, Mean Corpuscular Hemoglobin 29.1, Mean Corpuscular Hemoglobin Concent 33.9, Red Cell Distribution Width 17.4H, Platelet Count 106L, Mean Platelet Volume 9.2, Neutrophils (%) (Auto) , Lymphocytes (%) (Auto) , Monocytes (%) (Auto) , Eosinophils (%) (Auto) , Basophils (%) (Auto) , Differential Total Cells Counted 100, Neutrophils % ( Manual) 91H, Lymphocytes % (Manual) 3L, Monocytes % (Manual) 6, Eosinophils % ( Manual) 0, Basophils % (Manual) 0, Band Neutrophils 0, Platelet Estimate DecreasedL, Platelet Morphology Normal, Hypochromasia 2+, Anisocytosis 1+, Spherocytes 1+, Sodium Level 142, Potassium Level 3.0L, Chloride Level 111H, Carbon Dioxide Level 16L, Anion Gap 15, Blood Urea Nitrogen 89H, Creatinine 4.1H , Estimat Glomerular Filtration Rate 18.5, Glucose Level 194H, Calcium Level 8.1L Height (Feet): 5 Height (Inches): 5.00 Weight (Pounds): 183 General Appearance: no apparent distress EENT: normal ENT inspection Neck: supple Cardiovascular: normal rate Respiratory/Chest: decreased breath sounds Abdomen: normal bowel sounds, non tender, soft Extremities: non-tender Toni Mckenzie MD Jan 23, 2020 10:45
--- NOTE | 2020-01-23 11:44 | Surgery Progress Note ---
Surgery Progress Note Subjective Procedure Performed right femoral central venous catheter removal Additional Comments wbc improving h/h stable no n/v/f/c Objective Last 24 Hour Vital Signs Date Time Temp Pulse Resp B/P (MAP) Pulse Ox O2 Delivery O2 Flow Rate FiO2 01/23/20 11:20 76 28 30 01/23/20 07:30 77 25 30 01/23/20 04:00 97.8 73 22 113/74 (87) 100 01/23/20 04:00 Mechanical Ventilator 01/23/20 04:00 30 01/23/20 03:32 76 01/23/20 03:12 76 30 30 01/23/20 00:00 97.2 74 24 103/56 (72) 100 01/23/20 00:00 30 01/23/20 00:00 Mechanical Ventilator 01/22/20 23:29 77 01/22/20 22:46 74 26 30 01/22/20 20:00 Mechanical Ventilator 01/22/20 20:00 97.7 78 24 117/71 (86) 99 01/22/20 20:00 30 01/22/20 19:08 78 27 30 01/22/20 19:03 78 01/22/20 16:00 30 01/22/20 16:00 Mechanical Ventilator 01/22/20 16:00 97.2 71 24 101/51 (68) 100 01/22/20 16:00 78 01/22/20 15:12 71 25 30 01/22/20 12:00 30 01/22/20 12:00 Mechanical Ventilator 01/22/20 12:00 95.7 77 24 104/59 (74) 100 I&O Intake and Output 01/22/20 01/23/20 19:00 07:00 Intake Total 2096.5 ml 1436.5 ml Output Total 250 ml 235 ml Balance 1846.5 ml 1201.5 ml Intake Free Water 70 ml 300 ml IV Total 1582.5 ml 729.5 ml Tube Feeding 444 ml 407 ml Output Urine Total 250 ml 235 ml # Bowel Movements 4 4 Dressing: other Wound: other Drains: other Cardiovascular: RSR Respiratory: decreased breath sounds Abdomen: soft, non-tender, present bowel sounds Extremities: no cyanosis Laboratory Tests Test 01/23/20 02:55 White Blood Count 16.9 K/UL (4.8-10.8) H Red Blood Count 2.84 M/UL (4.70-6.10) L Hemoglobin 8.3 G/DL (14.2-18.0) L Hematocrit 24.4 % (42.0-52.0) L Mean Corpuscular Volume 86 FL (80-99) Mean Corpuscular Hemoglobin 29.1 PG (27.0-31.0) Mean Corpuscular Hemoglobin Concent 33.9 G/DL (32.0-36.0) Red Cell Distribution Width 17.4 % (11.6-14.8) H Platelet Count 106 K/UL (150-450) L Mean Platelet Volume 9.2 FL (6.5-10.1) Neutrophils (%) (Auto) % (45.0-75.0) Lymphocytes (%) (Auto) % (20.0-45.0) Monocytes (%) (Auto) % (1.0-10.0) Eosinophils (%) (Auto) % (0.0-3.0) Basophils (%) (Auto) % (0.0-2.0) Differential Total Cells Counted 100 Neutrophils % (Manual) 91 % (45-75) H Lymphocytes % (Manual) 3 % (20-45) L Monocytes % (Manual) 6 % (1-10) Eosinophils % (Manual) 0 % (0-3) Basophils % (Manual) 0 % (0-2) Band Neutrophils 0 % (0-8) Platelet Estimate Decreased L Platelet Morphology Normal Hypochromasia 2+ Anisocytosis 1+ Spherocytes 1+ Sodium Level 142 MMOL/L (136-145) Potassium Level 3.0 MMOL/L (3.5-5.1) L Chloride Level 111 MMOL/L (98-107) H Carbon Dioxide Level 16 MMOL/L (21-32) L Anion Gap 15 mmol/L (5-15) Blood Urea Nitrogen 89 mg/dL (7-18) H Creatinine 4.1 MG/DL (0.55-1.30) H Estimat Glomerular Filtration Rate 18.5 mL/min (>60) Glucose Level 194 MG/DL (74-106) H Calcium Level 8.1 MG/DL (8.5-10.1) L Plan Problems: (1) Hyponatremia (2) ARF (acute renal failure) (3) Hyperkalemia (4) Pressure sore on sacrum Assessment & Plan: Pt presented on admission with Sacral Pressure injury and Necrosis Both Both R lower ext, R foot and L foot. Generalized edema noted. Both upper ext noted to have multiple serous blisters ,some of which are weeping serous exudate. Full thickness Sacral Pressure Injury with undermined Borders. Base of wound is 75% loose necrotic tissue,25% bree. Bone exposure at base of wound. Area of necrosis noted at distal aspect of wound in space between wound and anus.Edges are macerated. Wound is malodorous.(L)9.5cm x (W)9.2cm x (D)2.9cm,undermining clockwise 10-3 by 3.8cm @12 o'clock. Scattered areas of hyperpigmentation noted to R and L clefts of buttocks. Unable to determine exudate as pt is continuously oozing large amt of semi soft black stool and leaking into wound because of close proximity to his rectum. At upper, R gluteal cheek is additional Pressure Injury with small amt Biofilm at base of wound. Edges are pink and adherent to base of wound. No exudate noted.(L)3cm x (W)2.6cm. Medially to distal Tibia,and extending to R foot is necrotic and malodorous.Wound is partially opened at posterior R tibia but is dry . L foot is necrotic and malodorous. No exudate noted. Tx.Plan: Cleanse Sacral wound with Dakin's 0.25% archana.. Loosely Pack wound with Dakin's moistened Kerlix.Apply Moisture Barrier Paste periwound.Cover with Optifoam drsg.Change Daily and PRN. Cleanse R lower ext and R foot with Dakin's 0.25% Archana. Cover wounds with ABD Pads.Wrap with Kerlix Daily and prn. Cleanse L foot Wounds with Dakin's 0.25% Archana. Cover wounds with ABD Pads and wrap with Kerlix Daily and prn. (5) Upper GI bleed Assessment & Plan: Patient with sepsis, abnormal labs, GI bleed, pending COVID eval. Labs noted. Exam reviewed. Chest x-ray noted as below. Discussed with GI. Plan for endoscopy once COVID status evaluated. Trend hemoglobin for now transfuse PRN. G-tube is functional and okay for medications and will plan tube feeds accordingly. No acute surgical intervention as patient is actively bleeding. Proton pump inhibitor recommended and Rx as written. Will follow with recommendations thank you for let me participate in patient's care plt low anemia prognosis guarded no active GI bleeding noted Status post PEG Tolerating tube feeds but still having diarrhea Difficult with rectal tube slides right out likely from spinal injury Anasarca stable No active bleeding line Free currently will monitor closely There is a tracheostomy in place. Vascularity is normal. Hazy densities in the lung bases may be layering effusions. Cardiac and mediastinal silhouette are within normal limits. The bony thorax appear unremarkable. line removed will monitor for bleeding IMPRESSION: Bibasilar hazy densities perhaps layering effusions. right fem line not functional noted manipulation as suture was dislodged. line replaced 1. Two or three gastric AVMs. 2. Ulcer with a small visible vessel, status post gold probe bipolar cauterization. DAILY ESTIMATED NEEDS: Needs based on Critical Care, Wounds, TR / 61kg 25-30 kcals/kg 3472-7361 total kcals 0.8-1.25 (increase w/ renal improvement) g protein/kg 49-76 g total protein 25-30 mL/kg 1672-0256 total fluid mLs NUTRITION DIAGNOSIS: * Swallowing difficulty R/T respiratory status, dysphagia as evidenced by trach/vent dep, PEG dep. * Increased kcal/prot intake needs R/T wound healing as evidenced by admitted w/ multiple wounds including full thickness wound @ sacrum, pressure Injury with small amt Biofilm at base of wound @ upper R gluteal cheek, necrotic wound @ medial to distal Tibia,and extending to R foot and L foot * Altered nutrition related lab R/T TR as evidenced by elev BUN (215-> 134), elev creat (5.2->4.3), low Na (124 -> wnl), elev K (6.7 -> wnl) CURRENT TF:TF HELD ENTERAL NUTRITION RECOMMENDATIONS: Nepro @ 38ml/hr x 24 hrs to provide 912ml, 1642kcal, 74g prot, 663ml free water * Once medically appropriate to feed, initiate TF -> rec Nepro at this time given TR (Creat 5.2 -> 4.3) w/ elev K upon adm * Initiate Nepro @ 18ml/hr x 6hrs, advance 10ml q 4-6 hrs as tolerated to goal rate * HOB over 30 degrees/ water flush per MD Monitor renal fxn closely, need to continue renal TF formula ADDITIONAL RECOMMENDATIONS: * Per SNF: HT=62" WT= 135lbs (12/25/19) * Monitor renal fxn and lytes (slowly improving renal fxn) * Monitor ability to resume TF- TF holding cont to be needed, consider initiating parenteral nutrition * Wound healing: add Ajay BID w/ TF order * Monitor for hypoglycemia: rec to hold ALL insulin while pt is NPO Study is somewhat limited due to anasarca and overlying bowel gas, midline gastrostomy bandages. Gallbladder demonstrates sludge and tiny stones. The gallbladder wall is mildly thickened. Sonographic Velázquez sign could not be assessed. Common bile duct measures 4 mm in diameter. No intrahepatic biliary ductal dilatation. The liver is enlarged. It demonstrates normal echogenicity. No focal abnormality. Small amount of ascites fluid is seen at the anterior liver surface and adjacent to the gallbladder, left upper quadrant, and in the pelvis Portal vein and hepatic veins are patent. Pancreas is obscured by bowel gas. Spleen is unremarkable. Left kidney measures 11.4 cm in length. Right kidney measures 10.9 cm length. Both kidneys demonstrate normal echogenicity. There is no hydronephrosis. No focal abnormality . Abdominal aorta is partially obscured by bowel gas, visualized portions are non-aneurysmal . There are small bilateral pleural effusions Javid Singh Jan 23, 2020 11:44
--- NOTE | 2020-01-23 12:35 | Nephrology Progress Note ---
Assessment/Plan Problem List: (1) Respiratory failure (2) ARF (acute renal failure) (3) Hyponatremia (4) Hyperkalemia (5) Upper GI bleed (6) Pressure sore on sacrum (7) Diarrhea (8) Severe malnutrition Plan diarrhea, reorder iv fluids,BUN/creatinine 70/.91 11/2019, enteral hydration , BUN lower enteral fluids reji likely from infection, severe hypoalbuminemia and anasarca with poor prognosis iv adjusted, bicitra started for acidosis, kcl Subjective ROS Limited/Unobtainable: Yes Objective Objective Last 24 Hour Vital Signs Date Time Temp Pulse Resp B/P (MAP) Pulse Ox O2 Delivery O2 Flow Rate FiO2 01/23/20 11: 76 28 30 01/23/20 07:30 77 25 30 01/23/20 04:00 97.8 73 22 113/74 (87) 100 01/23/20 04:00 Mechanical Ventilator 01/23/20 04:00 30 01/23/20 03:32 76 01/23/20 03:12 76 30 30 01/23/20 00:00 97.2 74 24 103/56 (72) 100 01/23/20 00:00 30 01/23/20 00:00 Mechanical Ventilator 01/22/20 23:29 77 01/22/20 22:46 74 26 30 01/22/20 20:00 Mechanical Ventilator 01/22/20 20:00 97.7 78 24 117/71 (86) 99 01/22/20 20:00 30 01/22/20 19:08 78 27 30 01/22/20 19:03 78 01/22/20 16:00 30 01/22/20 16:00 Mechanical Ventilator 01/22/20 16:00 97.2 71 24 101/51 (68) 100 01/22/20 16:00 78 01/22/20 15:12 71 25 30 Intake and Output 01/22/20 01/23/20 19:00 07:00 Intake Total 2096.5 ml 1436.5 ml Output Total 250 ml 235 ml Balance 1846.5 ml 1201.5 ml Intake Free Water 70 ml 300 ml IV Total 1582.5 ml 729.5 ml Tube Feeding 444 ml 407 ml Output Urine Total 250 ml 235 ml # Bowel Movements 4 4 Laboratory Tests 01/23/20 02:55: White Blood Count 16.9H, Red Blood Count 2.84L, Hemoglobin 8.3L, Hematocrit 24.4L, Mean Corpuscular Volume 86, Mean Corpuscular Hemoglobin 29.1, Mean Corpuscular Hemoglobin Concent 33.9, Red Cell Distribution Width 17.4H, Platelet Count 106L, Mean Platelet Volume 9.2, Neutrophils (%) (Auto) , Lymphocytes (%) (Auto) , Monocytes (%) (Auto) , Eosinophils (%) (Auto) , Basophils (%) (Auto) , Differential Total Cells Counted 100, Neutrophils % ( Manual) 91H, Lymphocytes % (Manual) 3L, Monocytes % (Manual) 6, Eosinophils % ( Manual) 0, Basophils % (Manual) 0, Band Neutrophils 0, Platelet Estimate DecreasedL, Platelet Morphology Normal, Hypochromasia 2+, Anisocytosis 1+, Spherocytes 1+, Sodium Level 142, Potassium Level 3.0L, Chloride Level 111H, Carbon Dioxide Level 16L, Anion Gap 15, Blood Urea Nitrogen 89H, Creatinine 4.1H , Estimat Glomerular Filtration Rate 18.5, Glucose Level 194H, Calcium Level 8.1L Height (Feet): 5 Height (Inches): 5.00 Weight (Pounds): 183 General Appearance: lethargic, other - on vent Cardiovascular: regular rhythm Respiratory/Chest: rhonchi - bilaterally Abdomen: soft Extremities: moderate edema Neurologic: unresponsive Martin Yee MD Jan 23, 2020 12:35
--- NOTE | 2020-01-23 13:02 | Infectious Diseases Prog Note ---
Assessment/Plan Assessment/Plan A 1. E. coli, Klebsiella & Pseudomonas pneumonia 2. Acute renal failure 3. Ventilator dependent respiratory failure 4. intracranial hemorrhage 5. paraplegia 6. leucocytosis 7. GI bleeding 8. Anemia 9. COVID19 test X 2: negative 10- Gangrene of feet 11. Thrombocytopenia 12. Hepatomegaly 13. sacral pressure ulcer 14. Cholelithiasis P 1. continue Zosyn 2. Poor prognosis Subjective ROS Limited/Unobtainable: Yes Constitutional: Denies: fever Allergies: Coded Allergies: No Known Allergies (Unverified , 10/07/19) Objective Vital Signs Last 24 Hour Vital Signs Date Time Temp Pulse Resp B/P (MAP) Pulse Ox O2 Delivery O2 Flow Rate FiO2 01/23/20 12:00 30 01/23/20 12:00 Mechanical Ventilator 01/23/20 12:00 98.1 65 22 135/71 (92) 100 01/23/20 11:20 76 28 30 01/23/20 08:00 79 01/23/20 08:00 30 01/23/20 08:00 97.9 77 22 125/65 (85) 100 01/23/20 08:00 Mechanical Ventilator 01/23/20 07:30 77 25 30 01/23/20 04:00 97.8 73 22 113/74 (87) 100 01/23/20 04:00 Mechanical Ventilator 01/23/20 04:00 30 01/23/20 03:32 76 01/23/20 03:12 76 30 30 01/23/20 00:00 97.2 74 24 103/56 (72) 100 01/23/20 00:00 30 01/23/20 00:00 Mechanical Ventilator 01/22/20 23:29 77 01/22/20 22:46 74 26 30 01/22/20 20:00 Mechanical Ventilator 01/22/20 20:00 97.7 78 24 117/71 (86) 99 01/22/20 20:00 30 01/22/20 19:08 78 27 30 01/22/20 19:03 78 01/22/20 16:00 30 01/22/20 16:00 Mechanical Ventilator 01/22/20 16:00 97.2 71 24 101/51 (68) 100 01/22/20 16:00 78 01/22/20 15:12 71 25 30 Height (Feet): 5 Height (Inches): 5.00 Weight (Pounds): 183 HEENT: status post trach Respiratory/Chest: lungs clear, other - on ventilator Cardiovascular: normal rate Abdomen: soft, non tender, other - GT feeding Extremities: other - generalized edema Skin: ulcers, other - feet necrotic lesions Neurologic/Psychiatric: unresponsiveness, aphasia Microbiology Date/Time Source Procedure Growth Status 01/21/20 16:40 Sputum Gram Stain - Final Resulted 01/21/20 16:40 Sputum Sputum Culture Pending Resulted Laboratory Tests Test 01/23/20 02:55 White Blood Count 16.9 K/UL (4.8-10.8) H Red Blood Count 2.84 M/UL (4.70-6.10) L Hemoglobin 8.3 G/DL (14.2-18.0) L Hematocrit 24.4 % (42.0-52.0) L Mean Corpuscular Volume 86 FL (80-99) Mean Corpuscular Hemoglobin 29.1 PG (27.0-31.0) Mean Corpuscular Hemoglobin Concent 33.9 G/DL (32.0-36.0) Red Cell Distribution Width 17.4 % (11.6-14.8) H Platelet Count 106 K/UL (150-450) L Mean Platelet Volume 9.2 FL (6.5-10.1) Neutrophils (%) (Auto) % (45.0-75.0) Lymphocytes (%) (Auto) % (20.0-45.0) Monocytes (%) (Auto) % (1.0-10.0) Eosinophils (%) (Auto) % (0.0-3.0) Basophils (%) (Auto) % (0.0-2.0) Differential Total Cells Counted 100 Neutrophils % (Manual) 91 % (45-75) H Lymphocytes % (Manual) 3 % (20-45) L Monocytes % (Manual) 6 % (1-10) Eosinophils % (Manual) 0 % (0-3) Basophils % (Manual) 0 % (0-2) Band Neutrophils 0 % (0-8) Platelet Estimate Decreased L Platelet Morphology Normal Hypochromasia 2+ Anisocytosis 1+ Spherocytes 1+ Sodium Level 142 MMOL/L (136-145) Potassium Level 3.0 MMOL/L (3.5-5.1) L Chloride Level 111 MMOL/L (98-107) H Carbon Dioxide Level 16 MMOL/L (21-32) L Anion Gap 15 mmol/L (5-15) Blood Urea Nitrogen 89 mg/dL (7-18) H Creatinine 4.1 MG/DL (0.55-1.30) H Estimat Glomerular Filtration Rate 18.5 mL/min (>60) Glucose Level 194 MG/DL (74-106) H Calcium Level 8.1 MG/DL (8.5-10.1) L Current Medications Medications (Trade) Dose Ordered Sig/[place] Route PRN Reason Start Time Stop Time Status Last Admin Dose Admin Al Hydroxide/Mg Hydroxide (Mylanta) 30 ml QIDPRN PRN GT stomach upset 01/14/20 16:45 02/13/20 16:44 Artificial Tears (Akwa-Tears) 1 drop EVERY 12 HOURS BOTH EYES 01/14/20 21:00 02/13/20 20:59 01/23/20 10:19 Dextrose (Dextrose 50%) 25 ml Q30M PRN IV Hypoglycemia 01/14/20 16:45 04/13/20 16:44 01/20/20 09:08 Dextrose (Dextrose 50%) 50 ml Q30M PRN IV hypoglycemia 01/14/20 16:45 04/13/20 16:44 01/14/20 21:25 Diphenoxylate HCl/ Atropine (Lomotil) 2.5 mg Q4H PRN ORAL Diarrhea 01/22/20 12:00 02/21/20 11:59 Insulin Aspart (NovoLOG) No Dose Q6HR SUBQ 01/14/20 18:00 04/13/20 17:59 01/23/20 05:03 Insulin Detemir (Levemir) 18 units Q12HR SUBQ 01/19/20 21:00 04/18/20 20:59 01/23/20 09:00 Loperamide HCl (Imodium) 2 mg Q4H PRN ORAL Diarrhea 01/19/20 16:00 02/16/20 10:29 Pantoprazole (Protonix) 40 mg DAILY IVP 01/20/20 09:00 02/19/20 08:59 01/23/20 10:19 Piperacillin Sod/ Tazobactam Sod 3.375 gm/Sodium Chloride 110 ml @ 27.5 mls/hr Q8H IVPB 01/21/20 14:00 01/28/20 13:59 01/23/20 05:02 Potassium Chloride 40 meq/ Dextrose/Sodium Chloride 1,020 ml @ 75 mls/hr [id number] IV 01/23/20 20:51 02/22/20 20:50 UNV Potassium Chloride (K-Dur) 40 meq ONCE ONCE ORAL 01/23/20 12:45 01/23/20 12:46 UNV Sodium Hypochlorite (Dakin's Half Strength) 1 applic DAILY TOPIC 01/15/20 09:00 02/14/20 08:59 01/23/20 09:00 Sodium Citrate (Bicitra) 30 ml EVERY 6 HOURS GT 01/20/20 18:00 02/19/20 17:59 01/23/20 05:02 Zinc Sulfate (Zinc Sulfate) 220 mg DAILY GT 01/15/20 09:00 04/14/20 08:59 01/23/20 10:19 Anastacio Bustillo MD Jan 23, 2020 13:02
--- NOTE | 2020-01-23 16:20 | Hematology/Onc Progress Note ---
Assessment/Plan Assessment/Plan Assessment and recs # Thrombocytopenia - potential causes multifactorial, evaluate liver and viral etiologies to begin, also could be related to underlying medications patient has received. May be due to DIC in this case, or consumption --> Hep panel and HIV negative --> US abd to evaluate for cirrhosis and hsm --> positive for mild hepatomegaly --> Peripheral smear ordered to evaluate for blasts /schistocytes --> abx and other meds have been reviewed --> ok for ppx if plt >50k w/ either heparin or lovenox --> Transfuse if Plt < 20k and fever, or if Plt < 10k without fever --> plt trend 41-->32-->21k-->20 -->61k-->45-->62-->51->38->55->50->70-->90--> 112 -->118 -->106 # Anemia due to Upper GI bleed, hematuria --> no evidence of hemolysis is noted --> smear noted --> anemia panel reviewed, ferritin high --> po iron ok --> for hematuria as per urology --> Pending endoscopy when clear from covid19 --> hgb trend: 9.1 ->8.3->6.9-->8.1-->8.3-->7.6 -->6.6-->10.5-->9.8-->9.3->8.5-- >8.6 -->8.5-->8.3 --> prbc: 2 units 01/02, 01/12 # Leukocytosis due to e/coli/kleb pna --> on connor/wilma--> vanc --> wbc trend 23-->32-->17.1-->13.9-->10-->15-->17.7-->21.8-->17 # Hyperkalemia --> kayxelate as needed --> k trend # ARF (acute renal failure) --> per renal # Hyponatremia # Gram negative pneumonia # Ventilator dependent respiratory failure # intracranial hemorrhage # paraplegia # Dysphagia with gtube The timing of this note does not necessarily reflect the time of the patient was seen. Greatly appreciate consultation. Subjective Constitutional: Denies: no symptoms, chills, fever, malaise, weakness, other HEENT: Denies: no symptoms, eye pain, blurred vision, tearing, double vision, ear pain, ear discharge, nose pain, nose congestion, throat pain, throat swelling, mouth pain, mouth swelling, other Cardiovascular: Denies: no symptoms, chest pain, edema, irregular heart rate, lightheadedness, palpitations, syncope, other Respiratory: Denies: no symptoms, cough, shortness of breath, SOB with excertion, SOB at rest, sputum, wheezing, other Gastrointestinal/Abdominal: Denies: no symptoms, abdomen distended, abdominal pain, black stools, tarry stools, blood in stool, constipated, diarrhea, difficulty swallowing, nausea, poor appetite, poor fluid intake, rectal bleeding , vomiting, other Neurologic/Psychiatric: Denies: no symptoms, anxiety, depressed, emotional problems, headache, numbness, paresthesia, pre-existing deficit, seizure, tingling, tremors, weakness, other Endocrine: Denies: no symptoms, excessive sweating, flushing, intolerance to cold, intolerance to heat, increased hunger, increased thirst, increased urine, unexplained weight gain, unexplained weight loss, other Allergies: Coded Allergies: No Known Allergies (Unverified , 10/07/19) Subjective 01/03obtunded, s/p rbc x2, hgb improved to 9.1, us abd reviewed, hematuria+ 01/04 plt are better, got 1 unit pf platets today as well, plt now 61k, less gi bleed overnight, some black tarry stool noted 01/05 nv, labs noted, hgb 8.5, no hemolysis noted, no bleeding, plt 83, egd tomorrow 01/06 egd for this am, results are pending, labs noted 01/09 no major changes, labs noted, no bleeding wbc higher, on abx 01/10 sdu, wbc improving, inr 1.4, vent, h/h stable, no distress 01/11 hgb 7.6, no tx required, repeat cbc for tomorrow, on vent 01/12 remains on vent, hgb 6.6, getting 2 iunits prbc today, will need picc 01/13 trach to vent, nepro feeds ongoing, hgb improved 10.5 01/14 s/p egd w/ peg, rectal tube, no acute events, h/h stable 01/15 remains obtunded, minimal blood in stool, will hold off on platelet administration 01/16 labs noted, nob leeding, meds reviewed, plt higher 01/18 sdu, nonverbal, no acute events, vent, vanc 01/19 remains on vent, with po vanc, wbc higher as is plt 01/20 sdu, obtunded, blisters to groin/scrotum area, labs reviewed 01/21 ctap and us abd reviewed, mild hepatomegaly, hgb 8.5, inr 1.8 01/22 remains on zosyn at this time, no bleeding, hgb .3, wbc 17 Objective Objective Current Medications Medications (Trade) Dose Ordered Sig/[place] Route PRN Reason Start Time Stop Time Status Last Admin Dose Admin Al Hydroxide/Mg Hydroxide (Mylanta) 30 ml QIDPRN PRN GT stomach upset 01/14/20 16:45 02/13/20 16:44 Artificial Tears (Akwa-Tears) 1 drop EVERY 12 HOURS BOTH EYES 01/14/20 21:00 02/13/20 20:59 01/23/20 10:19 Dextrose (Dextrose 50%) 25 ml Q30M PRN IV Hypoglycemia 01/14/20 16:45 04/13/20 16:44 01/20/20 09:08 Dextrose (Dextrose 50%) 50 ml Q30M PRN IV hypoglycemia 01/14/20 16:45 04/13/20 16:44 01/14/20 21:25 Dextrose/ Electrolytes 1,000 ml @ 75 mls/hr [id number] IV 01/23/20 14:30 02/22/20 14:29 Diphenoxylate HCl/ Atropine (Lomotil) 2.5 mg Q4H PRN ORAL Diarrhea 01/22/20 12:00 02/21/20 11:59 Insulin Aspart (NovoLOG) No Dose Q6HR SUBQ 01/14/20 18:00 04/13/20 17:59 01/23/20 13:18 Insulin Detemir (Levemir) 18 units Q12HR SUBQ 01/19/20 21:00 04/18/20 20:59 01/23/20 09:00 Loperamide HCl (Imodium) 2 mg Q4H PRN ORAL Diarrhea 01/19/20 16:00 02/16/20 10:29 Pantoprazole (Protonix) 40 mg DAILY IVP 01/20/20 09:00 02/19/20 08:59 01/23/20 10:19 Piperacillin Sod/ Tazobactam Sod 3.375 gm/Sodium Chloride 110 ml @ 27.5 mls/hr Q8H IVPB 01/21/20 14:00 01/28/20 13:59 01/23/20 16:10 Sodium Hypochlorite (Dakin's Half Strength) 1 applic DAILY TOPIC 01/15/20 09:00 02/14/20 08:59 01/23/20 09:00 Sodium Citrate (Bicitra) 30 ml EVERY 6 HOURS GT 01/20/20 18:00 02/19/20 17:59 01/23/20 13:24 Zinc Sulfate (Zinc Sulfate) 220 mg DAILY GT 01/15/20 09:00 04/14/20 08:59 01/23/20 10:19 Last 24 Hour Vital Signs Date Time Temp Pulse Resp B/P (MAP) Pulse Ox O2 Delivery O2 Flow Rate FiO2 01/23/20 15:49 74 27 30 01/23/20 12:00 30 01/23/20 12:00 Mechanical Ventilator 01/23/20 12:00 98.1 65 22 135/71 (92) 100 01/23/20 12:00 77 01/23/20 11:20 76 28 30 01/23/20 08:00 79 01/23/20 08:00 30 01/23/20 08:00 97.9 77 22 125/65 (85) 100 01/23/20 08:00 Mechanical Ventilator 01/23/20 07:30 77 25 30 01/23/20 04:00 97.8 73 22 113/74 (87) 100 01/23/20 04:00 Mechanical Ventilator 01/23/20 04:00 30 01/23/20 03:32 76 01/23/20 03:12 76 30 30 01/23/20 00:00 97.2 74 24 103/56 (72) 100 01/23/20 00:00 30 01/23/20 00:00 Mechanical Ventilator 01/22/20 23:29 77 01/22/20 22:46 74 26 30 01/22/20 20:00 Mechanical Ventilator 01/22/20 20:00 97.7 78 24 117/71 (86) 99 01/22/20 20:00 30 01/22/20 19:08 78 27 30 01/22/20 19:03 78 01/22/20 16:00 30 01/22/20 16:00 Mechanical Ventilator 01/22/20 16:00 97.2 71 24 101/51 (68) 100 01/22/20 16:00 78 01/22/20 15:12 71 25 30 01/22/20 12:00 30 01/22/20 12:00 Mechanical Ventilator 01/22/20 12:00 95.7 77 24 104/59 (74) 100 01/22/20 11:39 71 01/22/20 10:48 78 26 30 01/22/20 08:00 Mechanical Ventilator 01/22/20 08:00 30 01/22/20 08:00 96.6 77 24 105/69 (81) 100 01/22/20 07:30 78 01/22/20 07:14 76 25 30 01/22/20 04:00 30 01/22/20 04:00 Mechanical Ventilator 01/22/20 04:00 98.3 69 18 111/61 (78) 100 01/22/20 03:30 72 24 30 01/22/20 03:28 72 01/22/20 00:00 72 01/22/20 00:00 Mechanical Ventilator 01/22/20 00:00 30 01/22/20 00:00 98.9 79 18 123/79 (94) 99 01/21/20 22:56 70 24 30 01/21/20 20:00 Mechanical Ventilator 01/21/20 20:00 97.2 72 18 124/70 (88) 100 01/21/20 20:00 30 01/21/20 19:31 75 01/21/20 19:30 71 24 30 Intake and Output 01/22/20 01/23/20 19:00 07:00 Intake Total 2096.5 ml 1436.5 ml Output Total 250 ml 235 ml Balance 1846.5 ml 1201.5 ml Intake Free Water 70 ml 300 ml IV Total 1582.5 ml 729.5 ml Tube Feeding 444 ml 407 ml Output Urine Total 250 ml 235 ml # Bowel Movements 4 4 Labs Test 01/21/20 05:08 01/22/20 05:20 01/23/20 02:55 White Blood Count 17.7 K/UL (4.8-10.8) 21.8 K/UL (4.8-10.8) 16.9 K/UL (4.8-10.8) Red Blood Count 3.00 M/UL (4.70-6.10) 2.97 M/UL (4.70-6.10) 2.84 M/UL (4.70-6.10) Hemoglobin 8.6 G/DL (14.2-18.0) 8.5 G/DL (14.2-18.0) 8.3 G/DL (14.2-18.0) Hematocrit 25.1 % (42.0-52.0) 25.0 % (42.0-52.0) 24.4 % (42.0-52.0) Mean Corpuscular Volume 84 FL (80-99) 84 FL (80-99) 86 FL (80-99) Mean Corpuscular Hemoglobin 28.6 PG (27.0-31.0) 28.8 PG (27.0-31.0) 29.1 PG (27.0-31.0) Mean Corpuscular Hemoglobin Concent 34.0 G/DL (32.0-36.0) 34.2 G/DL (32.0-36.0) 33.9 G/DL (32.0-36.0) Red Cell Distribution Width 17.4 % (11.6-14.8) 17.6 % (11.6-14.8) 17.4 % (11.6-14.8) Platelet Count 112 K/UL (150-450) 118 K/UL (150-450) 106 K/UL (150-450) Mean Platelet Volume 11.5 FL (6.5-10.1) 11.5 FL (6.5-10.1) 9.2 FL (6.5-10.1) Neutrophils (%) (Auto) 84.3 % (45.0-75.0) % (45.0-75.0) % (45.0-75.0) Lymphocytes (%) (Auto) 3.5 % (20.0-45.0) % (20.0-45.0) % (20.0-45.0) Monocytes (%) (Auto) 9.0 % (1.0-10.0) % (1.0-10.0) % (1.0-10.0) Eosinophils (%) (Auto) 2.4 % (0.0-3.0) % (0.0-3.0) % (0.0-3.0) Basophils (%) (Auto) 0.8 % (0.0-2.0) % (0.0-2.0) % (0.0-2.0) Sodium Level 132 MMOL/L (136-145) 137 MMOL/L (136-145) 142 MMOL/L (136-145) Potassium Level 4.4 MMOL/L (3.5-5.1) 3.8 MMOL/L (3.5-5.1) 3.0 MMOL/L (3.5-5.1) Chloride Level 103 MMOL/L (98-107) 107 MMOL/L (98-107) 111 MMOL/L (98-107) Carbon Dioxide Level 16 MMOL/L (21-32) 16 MMOL/L (21-32) 16 MMOL/L (21-32) Anion Gap 13 mmol/L (5-15) 14 mmol/L (5-15) 15 mmol/L (5-15) Blood Urea Nitrogen 99 mg/dL (7-18) 90 mg/dL (7-18) 89 mg/dL (7-18) Creatinine 3.9 MG/DL (0.55-1.30) 4.1 MG/DL (0.55-1.30) 4.1 MG/DL (0.55-1.30) Estimat Glomerular Filtration Rate 19.8 mL/min (>60) 18.5 mL/min (>60) 18.5 mL/min (>60) Glucose Level 151 MG/DL (74-106) 184 MG/DL (74-106) 194 MG/DL (74-106) Calcium Level 7.8 MG/DL (8.5-10.1) 7.8 MG/DL (8.5-10.1) 8.1 MG/DL (8.5-10.1) Total Bilirubin 1.8 MG/DL (0.2-1.0) 1.8 MG/DL (0.2-1.0) Direct Bilirubin 1.5 MG/DL (0.0-0.3) 1.4 MG/DL (0.0-0.3) Aspartate Amino Transf (AST/SGOT) 475 U/L (15-37) 261 U/L (15-37) Alanine Aminotransferase (ALT/SGPT) 339 U/L (12-78) 245 U/L (12-78) Alkaline Phosphatase 209 U/L (46-116) 209 U/L (46-116) Total Protein 5.0 G/DL (6.4-8.2) 5.0 G/DL (6.4-8.2) Albumin 0.5 G/DL (3.4-5.0) 0.5 G/DL (3.4-5.0) Globulin 4.5 g/dL 4.5 g/dL Albumin/Globulin Ratio 0.1 (1.0-2.7) Differential Total Cells Counted 100 100 Neutrophils % (Manual) 88 % (45-75) 91 % (45-75) Lymphocytes % (Manual) 3 % (20-45) 3 % (20-45) Monocytes % (Manual) 8 % (1-10) 6 % (1-10) Eosinophils % (Manual) 1 % (0-3) 0 % (0-3) Basophils % (Manual) 0 % (0-2) 0 % (0-2) Band Neutrophils 0 % (0-8) 0 % (0-8) Platelet Estimate Decreased Decreased Platelet Morphology Normal Normal Hypochromasia 2+ 2+ Anisocytosis 1+ 1+ Erythrocyte Sedimentation Rate 121 MM/HR (0-20) Prothrombin Time 19.1 SEC (9.30-11.50) Prothromb Time International Ratio 1.8 (0.9-1.1) Activated Partial Thromboplast Time 48 SEC (23-33) C-Reactive Protein, Quantitative 26.4 mg/dL (0.00-0.90) Amylase Level 40 U/L (25-115) Lipase 369 U/L (73-393) Spherocytes 1+ Height (Feet): 5 Height (Inches): 5.00 Weight (Pounds): 183 Objective Physical Exam: Vitals: reviewed General: NAD ++obtunded HEENT: nc, at, mouth guard+ Neck: supple++trach Chest: clear breath sounds bilaterally Cardiovascular: RRR, no s3, s4 Abdomen/GI: soft, nontender, nd ++gtube, rectal tube+ Extremities: no cce, normal range of motion, ++ Spasticity in the left upper extremity. Flaccid on the right, scrotal blisters++ Neuro: nonfocal : babb+ Wilmer Turner MD Jan 23, 2020 16:20
[2020-01-23] MEDS: D5NS w/KCl 40mEq 1000ml 1,000 ML IV SCH (16:24)
[2020-01-24] VITALS: BP 134/68
[2020-01-24] MEDS: Sodium Citrate 30ml GT SCH ×5 (00:55→23:13)
[2020-01-24] MEDS: D5NS w/KCl 40mEq 1000ml 1,000 ML IV SCH ×2 (03:50→05:01)
[2020-01-24 04:00] VITALS: BP 136/70
[2020-01-24] MEDS: Piperacillin/Tazobactam 3.375 GM in NS 110 ML IVPB SCH ×3 (05:01→21:03)
[2020-01-24] MEDS: Insulin NovoLOG Flexpen S/S (Mod) SUBQ SCH ×5 (05:05→23:13)
[2020-01-24 05:54] LABS: HEMATOCRIT 25.2 % (42.0-52.0); MEAN CORPUSCULAR VOLUME 91 FL (80-99); PLATELET COUNT 109 K/UL (150-450); RED BLOOD COUNT 2.77 M/UL (4.70-6.10); RED CELL DISTRIBUTION WIDTH 17.3 % (11.6-14.8); WHITE BLOOD COUNT 20.2 K/UL (4.8-10.8)
[2020-01-24 06:16] LABS: ALANINE AMINOTRANSFERASE 126 U/L (12-78); ALKALINE PHOSPHATASE 191 U/L (46-116); ANION GAP 17 mmol/L (5-15); ASPARTATE AMINO TRANSFERASE 107 U/L (15-37); BILIRUBIN,DIRECT 1.6 MG/DL (0.0-0.3); BLOOD UREA NITROGEN 96 mg/dL (7-18); CALCIUM 8.3 MG/DL (8.5-10.1); CARBON DIOXIDE 15 MMOL/L (21-32); CHLORIDE 116 MMOL/L (98-107); CREATININE 4.2 MG/DL (0.55-1.30); POTASSIUM 3.7 MMOL/L (3.5-5.1); SODIUM 148 MMOL/L (136-145)
[2020-01-24 06:17] LABS: ALBUMIN 0.5 G/DL (3.4-5.0)
[2020-01-24 08:00] VITALS: BP 136/67
[2020-01-24] MEDS: Levemir Flexpen SUBQ SCH (08:29)
--- NOTE | 2020-01-24 08:47 | Pulmonology Progress Note ---
Subjective ROS Limited/Unobtainable: Yes Constitutional: Denies: fever Gastrointestinal/Abdominal: Reports: diarrhea Allergies: Coded Allergies: No Known Allergies (Unverified , 10/07/19) All Systems: reviewed and negative except above Subjective care noted on vent no significant improvement renal function poor wbc again worsening labs noted Objective Last 24 Hour Vital Signs Date Time Temp Pulse Resp B/P (MAP) Pulse Ox O2 Delivery O2 Flow Rate FiO2 01/24/20 08:00 97.9 82 28 136/67 (90) 100 01/24/20 08:00 Mechanical Ventilator 01/24/20 08:00 30 01/24/20 07:59 80 01/24/20 04:00 30 01/24/20 04:00 98.8 86 24 136/70 (92) 100 01/24/20 04:00 Mechanical Ventilator 01/24/20 03:56 86 27 30 01/24/20 03:50 87 01/24/20 00:00 84 01/24/20 00:00 Mechanical Ventilator 01/24/20 00:00 98.9 76 24 134/68 (90) 100 01/23/20 22:51 87 24 30 01/23/20 20:00 30 01/23/20 20:00 98.6 83 24 133/72 (92) 100 01/23/20 20:00 Mechanical Ventilator 01/23/20 19:52 82 26 30 01/23/20 19:26 81 01/23/20 18:48 98.2 81 22 148/71 (96) 100 01/23/20 16:00 Mechanical Ventilator 01/23/20 16:00 30 01/23/20 16:00 98.2 81 22 148/74 (98) 100 01/23/20 16:00 77 01/23/20 15:49 74 27 30 01/23/20 12:00 30 01/23/20 12:00 Mechanical Ventilator 01/23/20 12:00 98.1 65 22 135/71 (92) 100 01/23/20 12:00 77 01/23/20 11:20 76 28 30 Intake and Output 01/23/20 01/24/20 19:00 07:00 Intake Total 719 ml 1130.75 ml Output Total 150 ml 300 ml Balance 569 ml 830.75 ml Intake Free Water 200 ml 90 ml IV Total 75 ml 633.75 ml Tube Feeding 444 ml 407 ml Output Urine Total 150 ml 300 ml # Bowel Movements 2 7 Objective WDWN trach clear breath sounds bilaterally without rhonchi or wheeze [id number] without MRG NABS nontender no HSM no CCE poor LOC reviewed and edited Microbiology Date/Time Source Procedure Growth Status 01/21/20 16:40 Sputum Gram Stain - Final Resulted 01/21/20 16:40 Sputum Sputum Culture Pending Resulted Laboratory Tests 01/24/20 05:00: White Blood Count 20.2H, Red Blood Count 2.77L, Hemoglobin 8.0L, Hematocrit 25.2L, Mean Corpuscular Volume 91, Mean Corpuscular Hemoglobin 28.9, Mean Corpuscular Hemoglobin Concent 31.7L, Red Cell Distribution Width 17.3H, Platelet Count 109L, Mean Platelet Volume 11.6H, Neutrophils (%) (Auto) , Lymphocytes (%) (Auto) , Monocytes (%) (Auto) , Eosinophils (%) (Auto) , Basophils (%) (Auto) , Neutrophils % (Manual) [Pending], Lymphocytes % (Manual) [Pending], Platelet Estimate [Pending], Platelet Morphology [Pending], Sodium Level 148H, Potassium Level 3.7, Chloride Level 116H, Carbon Dioxide Level 15L, Anion Gap 17H, Blood Urea Nitrogen 96H, Creatinine 4.2H, Estimat Glomerular Filtration Rate 18.1, Glucose Level 92#, Calcium Level 8.3L, Total Bilirubin 2.0H, Direct Bilirubin 1.6H, Aspartate Amino Transf (AST/SGOT) 107H, Alanine Aminotransferase (ALT/SGPT) 126H, Alkaline Phosphatase 191H, Total Protein 5.1L , Albumin 0.5L, Globulin 4.5 Current Medications Medications (Trade) Dose Ordered Sig/[place] Route PRN Reason Start Time Stop Time Status Last Admin Dose Admin Al Hydroxide/Mg Hydroxide (Mylanta) 30 ml QIDPRN PRN GT stomach upset 01/14/20 16:45 02/13/20 16:44 Artificial Tears (Akwa-Tears) 1 drop EVERY 12 HOURS BOTH EYES 01/14/20 21:00 02/13/20 20:59 01/23/20 21:15 Dextrose (Dextrose 50%) 25 ml Q30M PRN IV Hypoglycemia 01/14/20 16:45 04/13/20 16:44 6/8/20 09:08 Dextrose (Dextrose 50%) 50 ml Q30M PRN IV hypoglycemia 01/14/20 16:45 04/13/20 16:44 01/14/20 21:25 Dextrose/ Electrolytes 1,000 ml @ 75 mls/hr [id number] IV 01/23/20 14:30 02/22/20 14:29 01/24/20 05:01 Diphenoxylate HCl/ Atropine (Lomotil) 2.5 mg Q4H PRN ORAL Diarrhea 01/22/20 12:00 02/21/20 11:59 Insulin Aspart (NovoLOG) No Dose Q6HR SUBQ 01/14/20 18:00 04/13/20 17:59 01/23/20 13:18 Insulin Detemir (Levemir) 18 units Q12HR SUBQ 01/19/20 21:00 04/18/20 20:59 01/23/20 09:00 Loperamide HCl (Imodium) 2 mg Q4H PRN ORAL Diarrhea 01/19/20 16:00 02/16/20 10:29 Pantoprazole (Protonix) 40 mg DAILY IVP 01/20/20 09:00 02/19/20 08:59 01/23/20 10:19 Piperacillin Sod/ Tazobactam Sod 3.375 gm/Sodium Chloride 110 ml @ 27.5 mls/hr Q8H IVPB 01/21/20 14:00 01/28/20 13:59 01/24/20 05:01 Sodium Hypochlorite (Dakin's Half Strength) 1 applic DAILY TOPIC 01/15/20 09:00 02/14/20 08:59 01/23/20 09:00 Sodium Citrate (Bicitra) 30 ml EVERY 6 HOURS GT 01/20/20 18:00 02/19/20 17:59 01/24/20 05:05 Zinc Sulfate (Zinc Sulfate) 220 mg DAILY GT 01/15/20 09:00 04/14/20 08:59 01/23/20 10:19 Assessment/Plan Assessment/Plan IMPRESSION chronic respiratory failure Acute on chronic renal failure elevated K anemia GIB leukocytosis possible sepsis oral bleeding diarrhea transaminitis PLAN ID , GI and renal clearance vent as is monitor vitals snf meds full code still not safe for dc as requires acute management prognosis very poor for recovery - still with poor liver enzymes, renal function and leukocytosis consider dc to snf when labs improved impression, plan, and exam edited and reviewed in detail care discussed with Lorenzo Chase MD Jan 24, 2020 08:47
[2020-01-24] MEDS: Pantoprazole Inj IVP SCH (08:49)
[2020-01-24] MEDS: Zinc Sulfate 220mg GT SCH (08:49)
[2020-01-24] MEDS: Dakin's 0.25% (Half Strength) 16oz TOPIC SCH (08:53)
--- NOTE | 2020-01-24 09:06 | Hematology/Onc Progress Note ---
Assessment/Plan Assessment/Plan Assessment and recs # Thrombocytopenia - potential causes multifactorial, evaluate liver and viral etiologies to begin, also could be related to underlying medications patient has received. May be due to DIC in this case, or consumption --> Hep panel and HIV negative --> US abd to evaluate for cirrhosis and hsm --> positive for mild hepatomegaly --> Peripheral smear ordered to evaluate for blasts /schistocytes --> abx and other meds have been reviewed --> ok for ppx if plt >50k w/ either heparin or lovenox --> Transfuse if Plt < 20k and fever, or if Plt < 10k without fever --> plt trend 41-->32-->21k-->20 -->61k-->45-->62-->51->38->55->50->70-->90--> 112 -->118 -->106-->109 # Anemia due to Upper GI bleed, hematuria --> no evidence of hemolysis is noted --> smear noted --> anemia panel reviewed, ferritin high --> po iron ok --> for hematuria as per urology --> Pending endoscopy when clear from covid19 --> hgb trend: 9.1 ->8.3->6.9-->8.1-->8.3-->7.6 -->6.6-->10.5-->9.8-->9.3->8.5-- >8.6 -->8.5-->8.3-->8 --> prbc: 2 units 01/02, 01/12 # Leukocytosis due to e/coli/kleb pna --> on connor/wilma--> vanc --> wbc trend 23-->32-->17.1-->13.9-->10-->15-->17.7-->21.8-->17-->20.2 # Hyperkalemia --> kayxelate as needed --> k trend # ARF (acute renal failure) --> per renal # Hyponatremia # Gram negative pneumonia # Ventilator dependent respiratory failure # intracranial hemorrhage # paraplegia # Dysphagia with gtube The timing of this note does not necessarily reflect the time of the patient was seen. Greatly appreciate consultation. Subjective Allergies: Coded Allergies: No Known Allergies (Unverified , 10/07/19) Subjective 01/03obtunded, s/p rbc x2, hgb improved to 9.1, us abd reviewed, hematuria+ 01/04 plt are better, got 1 unit pf platets today as well, plt now 61k, less gi bleed overnight, some black tarry stool noted 01/05 nv, labs noted, hgb 8.5, no hemolysis noted, no bleeding, plt 83, egd tomorrow 01/06 egd for this am, results are pending, labs noted 01/09 no major changes, labs noted, no bleeding wbc higher, on abx 01/10 sdu, wbc improving, inr 1.4, vent, h/h stable, no distress 01/11 hgb 7.6, no tx required, repeat cbc for tomorrow, on vent 01/12 remains on vent, hgb 6.6, getting 2 iunits prbc today, will need picc 01/13 trach to vent, nepro feeds ongoing, hgb improved 10.5 01/14 s/p egd w/ peg, rectal tube, no acute events, h/h stable 01/15 remains obtunded, minimal blood in stool, will hold off on platelet administration 01/16 labs noted, nob leeding, meds reviewed, plt higher 01/18 sdu, nonverbal, no acute events, vent, vanc 01/19 remains on vent, with po vanc, wbc higher as is plt 01/20 sdu, obtunded, blisters to groin/scrotum area, labs reviewed 01/21 ctap and us abd reviewed, mild hepatomegaly, hgb 8.5, inr 1.8 01/22 remains on zosyn at this time, no bleeding, hgb .3, wbc 17 01/23 wbc trending up, contact isolation, no acute events Objective Objective Current Medications Medications (Trade) Dose Ordered Sig/[place] Route PRN Reason Start Time Stop Time Status Last Admin Dose Admin Al Hydroxide/Mg Hydroxide (Mylanta) 30 ml QIDPRN PRN GT stomach upset 01/14/20 16:45 02/13/20 16:44 Artificial Tears (Akwa-Tears) 1 drop EVERY 12 HOURS BOTH EYES 01/14/20 21:00 02/13/20 20:59 01/24/20 08:50 Dextrose (Dextrose 50%) 25 ml Q30M PRN IV Hypoglycemia 01/14/20 16:45 04/13/20 16:44 01/20/20 09:08 Dextrose (Dextrose 50%) 50 ml Q30M PRN IV hypoglycemia 01/14/20 16:45 04/13/20 16:44 01/14/20 21:25 Dextrose/ Electrolytes 1,000 ml @ 75 mls/hr [id number] IV 01/23/20 14:30 02/22/20 14:29 01/24/20 05:01 Diphenoxylate HCl/ Atropine (Lomotil) 2.5 mg Q4H PRN ORAL Diarrhea 01/22/20 12:00 02/21/20 11:59 Insulin Aspart (NovoLOG) No Dose Q6HR SUBQ 01/14/20 18:00 04/13/20 17:59 01/23/20 13:18 Insulin Detemir (Levemir) 18 units Q12HR SUBQ 01/19/20 21:00 04/18/20 20:59 01/23/20 09:00 Loperamide HCl (Imodium) 2 mg Q4H PRN ORAL Diarrhea 01/19/20 16:00 02/16/20 10:29 Pantoprazole (Protonix) 40 mg DAILY IVP 01/20/20 09:00 02/19/20 08:59 01/24/20 08:49 Piperacillin Sod/ Tazobactam Sod 3.375 gm/Sodium Chloride 110 ml @ 27.5 mls/hr Q8H IVPB 01/21/20 14:00 01/28/20 13:59 01/24/20 05:01 Sodium Hypochlorite (Dakin's Half Strength) 1 applic DAILY TOPIC 01/15/20 09:00 02/14/20 08:59 01/24/20 08:53 Sodium Citrate (Bicitra) 30 ml EVERY 6 HOURS GT 01/20/20 18:00 02/19/20 17:59 01/24/20 05:05 Zinc Sulfate (Zinc Sulfate) 220 mg DAILY GT 01/15/20 09:00 04/14/20 08:59 01/24/20 08:49 Last 24 Hour Vital Signs Date Time Temp Pulse Resp B/P (MAP) Pulse Ox O2 Delivery O2 Flow Rate FiO2 01/24/20 08:00 97.9 82 28 136/67 (90) 100 01/24/20 08:00 Mechanical Ventilator 01/24/20 08:00 30 01/24/20 07:59 80 01/24/20 04:00 30 01/24/20 04:00 98.8 86 24 136/70 (92) 100 01/24/20 04:00 Mechanical Ventilator 01/24/20 03:56 86 27 30 01/24/20 03:50 87 01/24/20 00:00 84 01/24/20 00:00 Mechanical Ventilator 01/24/20 00:00 98.9 76 24 134/68 (90) 100 01/23/20 22:51 87 24 30 01/23/20 20:00 30 01/23/20 20:00 98.6 83 24 133/72 (92) 100 01/23/20 20:00 Mechanical Ventilator 01/23/20 19:52 82 26 30 01/23/20 19:26 81 01/23/20 18:48 98.2 81 22 148/71 (96) 100 01/23/20 16:00 Mechanical Ventilator 01/23/20 16:00 30 01/23/20 16:00 98.2 81 22 148/74 (98) 100 01/23/20 16:00 77 01/23/20 15:49 74 27 30 01/23/20 12:00 30 01/23/20 12:00 Mechanical Ventilator 01/23/20 12:00 98.1 65 22 135/71 (92) 100 01/23/20 12:00 77 01/23/20 11:20 76 28 30 01/23/20 08:00 79 01/23/20 08:00 30 01/23/20 08:00 97.9 77 22 125/65 (85) 100 01/23/20 08:00 Mechanical Ventilator 01/23/20 07:30 77 25 30 01/23/20 04:00 97.8 73 22 113/74 (87) 100 01/23/20 04:00 Mechanical Ventilator 01/23/20 04:00 30 01/23/20 03:32 76 01/23/20 03:12 76 30 30 01/23/20 00:00 97.2 74 24 103/56 (72) 100 01/23/20 00:00 30 01/23/20 00:00 Mechanical Ventilator 01/22/20 23:29 77 01/22/20 22:46 74 26 30 01/22/20 20:00 Mechanical Ventilator 01/22/20 20:00 97.7 78 24 117/71 (86) 99 01/22/20 20:00 30 01/22/20 19:08 78 27 30 01/22/20 19:03 78 01/22/20 16:00 30 01/22/20 16:00 Mechanical Ventilator 01/22/20 16:00 97.2 71 24 101/51 (68) 100 01/22/20 16:00 78 01/22/20 15:12 71 25 30 01/22/20 12:00 30 01/22/20 12:00 Mechanical Ventilator 01/22/20 12:00 95.7 77 24 104/59 (74) 100 01/22/20 11:39 71 01/22/20 10:48 78 26 30 Intake and Output 01/23/20 01/24/20 19:00 07:00 Intake Total 719 ml 1130.75 ml Output Total 150 ml 300 ml Balance 569 ml 830.75 ml Intake Free Water 200 ml 90 ml IV Total 75 ml 633.75 ml Tube Feeding 444 ml 407 ml Output Urine Total 150 ml 300 ml # Bowel Movements 2 7 Labs Test 01/22/20 05:20 01/23/20 02:55 01/24/20 05:00 White Blood Count 21.8 K/UL (4.8-10.8) 16.9 K/UL (4.8-10.8) 20.2 K/UL (4.8-10.8) Red Blood Count 2.97 M/UL (4.70-6.10) 2.84 M/UL (4.70-6.10) 2.77 M/UL (4.70-6.10) Hemoglobin 8.5 G/DL (14.2-18.0) 8.3 G/DL (14.2-18.0) 8.0 G/DL (14.2-18.0) Hematocrit 25.0 % (42.0-52.0) 24.4 % (42.0-52.0) 25.2 % (42.0-52.0) Mean Corpuscular Volume 84 FL (80-99) 86 FL (80-99) 91 FL (80-99) Mean Corpuscular Hemoglobin 28.8 PG (27.0-31.0) 29.1 PG (27.0-31.0) 28.9 PG (27.0-31.0) Mean Corpuscular Hemoglobin Concent 34.2 G/DL (32.0-36.0) 33.9 G/DL (32.0-36.0) 31.7 G/DL (32.0-36.0) Red Cell Distribution Width 17.6 % (11.6-14.8) 17.4 % (11.6-14.8) 17.3 % (11.6-14.8) Platelet Count 118 K/UL (150-450) 106 K/UL (150-450) 109 K/UL (150-450) Mean Platelet Volume 11.5 FL (6.5-10.1) 9.2 FL (6.5-10.1) 11.6 FL (6.5-10.1) Neutrophils (%) (Auto) % (45.0-75.0) % (45.0-75.0) % (45.0-75.0) Lymphocytes (%) (Auto) % (20.0-45.0) % (20.0-45.0) % (20.0-45.0) Monocytes (%) (Auto) % (1.0-10.0) % (1.0-10.0) % (1.0-10.0) Eosinophils (%) (Auto) % (0.0-3.0) % (0.0-3.0) % (0.0-3.0) Basophils (%) (Auto) % (0.0-2.0) % (0.0-2.0) % (0.0-2.0) Differential Total Cells Counted 100 100 Neutrophils % (Manual) 88 % (45-75) 91 % (45-75) Lymphocytes % (Manual) 3 % (20-45) 3 % (20-45) Monocytes % (Manual) 8 % (1-10) 6 % (1-10) Eosinophils % (Manual) 1 % (0-3) 0 % (0-3) Basophils % (Manual) 0 % (0-2) 0 % (0-2) Band Neutrophils 0 % (0-8) 0 % (0-8) Platelet Estimate Decreased Decreased Platelet Morphology Normal Normal Hypochromasia 2+ 2+ Anisocytosis 1+ 1+ Erythrocyte Sedimentation Rate 121 MM/HR (0-20) Prothrombin Time 19.1 SEC (9.30-11.50) Prothromb Time International Ratio 1.8 (0.9-1.1) Activated Partial Thromboplast Time 48 SEC (23-33) Sodium Level 137 MMOL/L (136-145) 142 MMOL/L (136-145) 148 MMOL/L (136-145) Potassium Level 3.8 MMOL/L (3.5-5.1) 3.0 MMOL/L (3.5-5.1) 3.7 MMOL/L (3.5-5.1) Chloride Level 107 MMOL/L (98-107) 111 MMOL/L (98-107) 116 MMOL/L (98-107) Carbon Dioxide Level 16 MMOL/L (21-32) 16 MMOL/L (21-32) 15 MMOL/L (21-32) Anion Gap 14 mmol/L (5-15) 15 mmol/L (5-15) 17 mmol/L (5-15) Blood Urea Nitrogen 90 mg/dL (7-18) 89 mg/dL (7-18) 96 mg/dL (7-18) Creatinine 4.1 MG/DL (0.55-1.30) 4.1 MG/DL (0.55-1.30) 4.2 MG/DL (0.55-1.30) Estimat Glomerular Filtration Rate 18.5 mL/min (>60) 18.5 mL/min (>60) 18.1 mL/min (>60) Glucose Level 184 MG/DL (74-106) 194 MG/DL (74-106) 92 MG/DL (74-106) Calcium Level 7.8 MG/DL (8.5-10.1) 8.1 MG/DL (8.5-10.1) 8.3 MG/DL (8.5-10.1) Total Bilirubin 1.8 MG/DL (0.2-1.0) 2.0 MG/DL (0.2-1.0) Direct Bilirubin 1.4 MG/DL (0.0-0.3) 1.6 MG/DL (0.0-0.3) Aspartate Amino Transf (AST/SGOT) 261 U/L (15-37) 107 U/L (15-37) Alanine Aminotransferase (ALT/SGPT) 245 U/L (12-78) 126 U/L (12-78) Alkaline Phosphatase 209 U/L (46-116) 191 U/L (46-116) C-Reactive Protein, Quantitative 26.4 mg/dL (0.00-0.90) Total Protein 5.0 G/DL (6.4-8.2) 5.1 G/DL (6.4-8.2) Albumin 0.5 G/DL (3.4-5.0) 0.5 G/DL (3.4-5.0) Globulin 4.5 g/dL 4.5 g/dL Amylase Level 40 U/L (25-115) Lipase 369 U/L (73-393) Spherocytes 1+ Height (Feet): 5 Height (Inches): 5.00 Weight (Pounds): 182 Objective Physical Exam: Vitals: reviewed General: NAD ++obtunded HEENT: nc, at, mouth guard+ Neck: supple++trach Chest: clear breath sounds bilaterally Cardiovascular: RRR, no s3, s4 Abdomen/GI: soft, nontender, nd ++gtube, rectal tube+ Extremities: no cce, normal range of motion, ++ Spasticity in the left upper extremity. Flaccid on the right, scrotal blisters++ Neuro: nonfocal : skinny+ Wilmer Turner MD Jan 24, 2020 09:06
--- NOTE | 2020-01-24 10:17 | General Progress Note ---
Assessment/Plan Assessment/Plan: sepsis anemia GIB thrombocytopenia hyponatremia ARF DM dysphagia with GT s/p EGD/PEG GTF lomotil prn imodium prn ppi elevated LFTS>>> stable us reviewed fu abd CT, reviewed protonix daily will fu Subjective ROS Limited/Unobtainable: No Allergies: Coded Allergies: No Known Allergies (Unverified , 10/07/19) Objective Last 24 Hour Vital Signs Date Time Temp Pulse Resp B/P (MAP) Pulse Ox O2 Delivery O2 Flow Rate FiO2 01/24/20 08:00 97.9 82 28 136/67 (90) 100 01/24/20 08:00 Mechanical Ventilator 01/24/20 08:00 30 01/24/20 07:59 80 01/24/20 07:30 82 27 30 01/24/20 04:00 30 01/24/20 04:00 98.8 86 24 136/70 (92) 100 01/24/20 04:00 Mechanical Ventilator 01/24/20 03:56 86 27 30 01/24/20 03:50 87 01/24/20 00:00 84 01/24/20 00:00 Mechanical Ventilator 01/24/20 00:00 98.9 76 24 134/68 (90) 100 01/23/20 22:51 87 24 30 01/23/20 20:00 30 01/23/20 20:00 98.6 83 24 133/72 (92) 100 01/23/20 20:00 Mechanical Ventilator 01/23/20 19:52 82 26 30 01/23/20 19:26 81 01/23/20 18:48 98.2 81 22 148/71 (96) 100 01/23/20 16:00 Mechanical Ventilator 01/23/20 16:00 30 01/23/20 16:00 98.2 81 22 148/74 (98) 100 01/23/20 16:00 77 01/23/20 15:49 74 27 30 01/23/20 12:00 30 01/23/20 12:00 Mechanical Ventilator 01/23/20 12:00 98.1 65 22 135/71 (92) 100 01/23/20 12:00 77 01/23/20 11:20 76 28 30 Intake and Output 01/23/20 01/24/20 19:00 07:00 Intake Total 719 ml 1130.75 ml Output Total 150 ml 300 ml Balance 569 ml 830.75 ml Intake Free Water 200 ml 90 ml IV Total 75 ml 633.75 ml Tube Feeding 444 ml 407 ml Output Urine Total 150 ml 300 ml # Bowel Movements 2 7 Laboratory Tests 01/24/20 05:00: White Blood Count 20.2H, Red Blood Count 2.77L, Hemoglobin 8.0L, Hematocrit 25.2L, Mean Corpuscular Volume 91, Mean Corpuscular Hemoglobin 28.9, Mean Corpuscular Hemoglobin Concent 31.7L, Red Cell Distribution Width 17.3H, Platelet Count 109L, Mean Platelet Volume 11.6H, Neutrophils (%) (Auto) , Lymphocytes (%) (Auto) , Monocytes (%) (Auto) , Eosinophils (%) (Auto) , Basophils (%) (Auto) , Differential Total Cells Counted 100, Neutrophils % ( Manual) 83H, Lymphocytes % (Manual) 6L, Monocytes % (Manual) 9, Eosinophils % ( Manual) 2, Basophils % (Manual) 0, Band Neutrophils 0, Platelet Estimate DecreasedL, Platelet Morphology Normal, Hypochromasia 2+, Anisocytosis 1+, Sodium Level 148H, Potassium Level 3.7, Chloride Level 116H, Carbon Dioxide Level 15L, Anion Gap 17H, Blood Urea Nitrogen 96H, Creatinine 4.2H, Estimat Glomerular Filtration Rate 18.1, Glucose Level 92#, Calcium Level 8.3L, Total Bilirubin 2.0H, Direct Bilirubin 1.6H, Aspartate Amino Transf (AST/SGOT) 107H, Alanine Aminotransferase (ALT/SGPT) 126H, Alkaline Phosphatase 191H, Total Protein 5.1L, Albumin 0.5L, Globulin 4.5 Height (Feet): 5 Height (Inches): 5.00 Weight (Pounds): 182 General Appearance: no apparent distress EENT: normal ENT inspection Neck: supple Cardiovascular: normal rate Respiratory/Chest: decreased breath sounds Abdomen: normal bowel sounds, non tender, soft Extremities: non-tender Toni Mckenzie MD Jan 24, 2020 10:17
--- NOTE | 2020-01-24 11:02 | Infectious Diseases Prog Note ---
Assessment/Plan Assessment/Plan antibiotics : zosyn po vancomycin 5.29.20 - A 1. gram negative pneumonia 2. renal failure 3. respiratory failure 4. intracranial hemorrhage 5. paraplegia 6. leucocytosis increased 7. COVID 19 test negative x 2 8. gangrene of feet bilaterally P 1. continue zosyn 2. will follow up cultures Subjective ROS Limited/Unobtainable: Yes Allergies: Coded Allergies: No Known Allergies (Unverified , 10/07/19) Objective Vital Signs Last 24 Hour Vital Signs Date Time Temp Pulse Resp B/P (MAP) Pulse Ox O2 Delivery O2 Flow Rate FiO2 01/24/20 08:00 97.9 82 28 136/67 (90) 100 01/24/20 08:00 Mechanical Ventilator 01/24/20 08:00 30 01/24/20 07:59 80 01/24/20 07:30 82 27 30 01/24/20 04:00 30 01/24/20 04:00 98.8 86 24 136/70 (92) 100 01/24/20 04:00 Mechanical Ventilator 01/24/20 03:56 86 27 30 01/24/20 03:50 87 01/24/20 00:00 84 01/24/20 00:00 Mechanical Ventilator 01/24/20 00:00 98.9 76 24 134/68 (90) 100 01/23/20 22:51 87 24 30 01/23/20 20:00 30 01/23/20 20:00 98.6 83 24 133/72 (92) 100 01/23/20 20:00 Mechanical Ventilator 01/23/20 19:52 82 26 30 01/23/20 19:26 81 01/23/20 18:48 98.2 81 22 148/71 (96) 100 01/23/20 16:00 Mechanical Ventilator 01/23/20 16:00 30 01/23/20 16:00 98.2 81 22 148/74 (98) 100 01/23/20 16:00 77 01/23/20 15:49 74 27 30 01/23/20 12:00 30 01/23/20 12:00 Mechanical Ventilator 01/23/20 12:00 98.1 65 22 135/71 (92) 100 01/23/20 12:00 77 01/23/20 11:20 76 28 30 Height (Feet): 5 Height (Inches): 5.00 Weight (Pounds): 182 HEENT: status post trach Respiratory/Chest: lungs clear Cardiovascular: normal rate, regular rhythm, no gallop/murmur Abdomen: soft, non tender, other - GT Extremities: other - + edema bilaterally, bilateral necrotic feet bilaterally Microbiology Date/Time Source Procedure Growth Status 01/21/20 16:40 Sputum Gram Stain - Final Resulted 01/21/20 16:40 Sputum Culture - Preliminary Gram Negative Bacillus 1 Gram Negative Bacillus 2 Gram Negative Bacillus 3 Resulted Laboratory Tests Test 01/24/20 05:00 White Blood Count 20.2 K/UL (4.8-10.8) H Red Blood Count 2.77 M/UL (4.70-6.10) L Hemoglobin 8.0 G/DL (14.2-18.0) L Hematocrit 25.2 % (42.0-52.0) L Mean Corpuscular Volume 91 FL (80-99) Mean Corpuscular Hemoglobin 28.9 PG (27.0-31.0) Mean Corpuscular Hemoglobin Concent 31.7 G/DL (32.0-36.0) L Red Cell Distribution Width 17.3 % (11.6-14.8) H Platelet Count 109 K/UL (150-450) L Mean Platelet Volume 11.6 FL (6.5-10.1) H Neutrophils (%) (Auto) % (45.0-75.0) Lymphocytes (%) (Auto) % (20.0-45.0) Monocytes (%) (Auto) % (1.0-10.0) Eosinophils (%) (Auto) % (0.0-3.0) Basophils (%) (Auto) % (0.0-2.0) Differential Total Cells Counted 100 Neutrophils % (Manual) 83 % (45-75) H Lymphocytes % (Manual) 6 % (20-45) L Monocytes % (Manual) 9 % (1-10) Eosinophils % (Manual) 2 % (0-3) Basophils % (Manual) 0 % (0-2) Band Neutrophils 0 % (0-8) Platelet Estimate Decreased L Platelet Morphology Normal Hypochromasia 2+ Anisocytosis 1+ Sodium Level 148 MMOL/L (136-145) H Potassium Level 3.7 MMOL/L (3.5-5.1) Chloride Level 116 MMOL/L (98-107) H Carbon Dioxide Level 15 MMOL/L (21-32) L Anion Gap 17 mmol/L (5-15) H Blood Urea Nitrogen 96 mg/dL (7-18) H Creatinine 4.2 MG/DL (0.55-1.30) H Estimat Glomerular Filtration Rate 18.1 mL/min (>60) Glucose Level 92 MG/DL (74-106) # Calcium Level 8.3 MG/DL (8.5-10.1) L Total Bilirubin 2.0 MG/DL (0.2-1.0) H Direct Bilirubin 1.6 MG/DL (0.0-0.3) H Aspartate Amino Transf (AST/SGOT) 107 U/L (15-37) H Alanine Aminotransferase (ALT/SGPT) 126 U/L (12-78) H Alkaline Phosphatase 191 U/L (46-116) H Total Protein 5.1 G/DL (6.4-8.2) L Albumin 0.5 G/DL (3.4-5.0) L Globulin 4.5 g/dL Current Medications Medications (Trade) Dose Ordered Sig/[place] Route PRN Reason Start Time Stop Time Status Last Admin Dose Admin Al Hydroxide/Mg Hydroxide (Mylanta) 30 ml QIDPRN PRN GT stomach upset 01/14/20 16:45 02/13/20 16:44 Artificial Tears (Akwa-Tears) 1 drop EVERY 12 HOURS BOTH EYES 01/14/20 21:00 02/13/20 20:59 01/24/20 08:50 Dextrose (Dextrose 50%) 25 ml Q30M PRN IV Hypoglycemia 01/14/20 16:45 04/13/20 16:44 01/20/20 09:08 Dextrose (Dextrose 50%) 50 ml Q30M PRN IV hypoglycemia 01/14/20 16:45 04/13/20 16:44 01/14/20 21:25 Dextrose/ Electrolytes 1,000 ml @ 75 mls/hr [id number] IV 01/23/20 14:30 02/22/20 14:29 01/24/20 05:01 Diphenoxylate HCl/ Atropine (Lomotil) 2.5 mg Q4H PRN ORAL Diarrhea 01/22/20 12:00 02/21/20 11:59 Insulin Aspart (NovoLOG) No Dose Q6HR SUBQ 01/14/20 18:00 04/13/20 17:59 01/23/20 13:18 Loperamide HCl (Imodium) 2 mg Q4H PRN ORAL Diarrhea 01/19/20 16:00 02/16/20 10:29 Pantoprazole (Protonix) 40 mg DAILY IVP 01/20/20 09:00 02/19/20 08:59 01/24/20 08:49 Piperacillin Sod/ Tazobactam Sod 3.375 gm/Sodium Chloride 110 ml @ 27.5 mls/hr Q8H IVPB 01/21/20 14:00 01/28/20 13:59 01/24/20 05:01 Sodium Hypochlorite (Dakin's Half Strength) 1 applic DAILY TOPIC 01/15/20 09:00 02/14/20 08:59 01/24/20 08:53 Sodium Citrate (Bicitra) 30 ml EVERY 6 HOURS GT 01/20/20 18:00 02/19/20 17:59 01/24/20 05:05 Zinc Sulfate (Zinc Sulfate) 220 mg DAILY GT 01/15/20 09:00 04/14/20 08:59 01/24/20 08:49 Tony Apple MD Jan 24, 2020 11:02
[2020-01-24 12:00] VITALS: BP 123/58
--- NOTE | 2020-01-24 14:30 | Nephrology Progress Note ---
Assessment/Plan Problem List: (1) Respiratory failure (2) ARF (acute renal failure) (3) Hyponatremia (4) Hyperkalemia (5) Upper GI bleed (6) Pressure sore on sacrum (7) Diarrhea (8) Severe malnutrition Plan diarrhea, reorder iv fluids,BUN/creatinine 70/.91 11/2019, enteral hydration , BUN lower enteral fluids reji likely from infection, severe hypoalbuminemia and anasarca with poor prognosis iv adjusted, bicitra started for acidosis, kcl Subjective ROS Limited/Unobtainable: Yes Objective Objective Last 24 Hour Vital Signs Date Time Temp Pulse Resp B/P (MAP) Pulse Ox O2 Delivery O2 Flow Rate FiO2 01/24/20 12:00 30 01/24/20 12:00 Mechanical Ventilator 01/24/20 12:00 97.7 78 26 123/58 (79) 100 01/24/20 11:33 77 01/24/20 11:30 78 24 30 01/24/20 08:00 97.9 82 28 136/67 (90) 100 01/24/20 08:00 Mechanical Ventilator 01/24/20 08:00 30 01/24/20 07:59 80 01/24/20 07:30 82 27 30 01/24/20 04:00 30 01/24/20 04:00 98.8 86 24 136/70 (92) 100 01/24/20 04:00 Mechanical Ventilator 01/24/20 03:56 86 27 30 01/24/20 03:50 87 01/24/20 00:00 84 01/24/20 00:00 Mechanical Ventilator 01/24/20 00:00 98.9 76 24 134/68 (90) 100 01/23/20 22:51 87 24 30 01/23/20 20:00 30 01/23/20 20:00 98.6 83 24 133/72 (92) 100 01/23/20 20:00 Mechanical Ventilator 01/23/20 19:52 82 26 30 01/23/20 19:26 81 01/23/20 18:48 98.2 81 22 148/71 (96) 100 01/23/20 16:00 Mechanical Ventilator 01/23/20 16:00 30 01/23/20 16:00 98.2 81 22 148/74 (98) 100 01/23/20 16:00 77 01/23/20 15:49 74 27 30 Intake and Output 01/23/20 01/24/20 19:00 07:00 Intake Total 719 ml 1130.75 ml Output Total 150 ml 300 ml Balance 569 ml 830.75 ml Intake Free Water 200 ml 90 ml IV Total 75 ml 633.75 ml Tube Feeding 444 ml 407 ml Output Urine Total 150 ml 300 ml # Bowel Movements 2 7 Laboratory Tests 01/24/20 05:00: White Blood Count 20.2H, Red Blood Count 2.77L, Hemoglobin 8.0L, Hematocrit 25.2L, Mean Corpuscular Volume 91, Mean Corpuscular Hemoglobin 28.9, Mean Corpuscular Hemoglobin Concent 31.7L, Red Cell Distribution Width 17.3H, Platelet Count 109L, Mean Platelet Volume 11.6H, Neutrophils (%) (Auto) , Lymphocytes (%) (Auto) , Monocytes (%) (Auto) , Eosinophils (%) (Auto) , Basophils (%) (Auto) , Differential Total Cells Counted 100, Neutrophils % ( Manual) 83H, Lymphocytes % (Manual) 6L, Monocytes % (Manual) 9, Eosinophils % ( Manual) 2, Basophils % (Manual) 0, Band Neutrophils 0, Platelet Estimate DecreasedL, Platelet Morphology Normal, Hypochromasia 2+, Anisocytosis 1+, Sodium Level 148H, Potassium Level 3.7, Chloride Level 116H, Carbon Dioxide Level 15L, Anion Gap 17H, Blood Urea Nitrogen 96H, Creatinine 4.2H, Estimat Glomerular Filtration Rate 18.1, Glucose Level 92#, Calcium Level 8.3L, Total Bilirubin 2.0H, Direct Bilirubin 1.6H, Aspartate Amino Transf (AST/SGOT) 107H, Alanine Aminotransferase (ALT/SGPT) 126H, Alkaline Phosphatase 191H, Total Protein 5.1L, Albumin 0.5L, Globulin 4.5 Height (Feet): 5 Height (Inches): 5.00 Weight (Pounds): 182 General Appearance: lethargic, other - on vent Cardiovascular: regular rhythm Respiratory/Chest: rhonchi - bilaterally Abdomen: soft Extremities: moderate edema Neurologic: unresponsive Martin Yee MD Jan 24, 2020 14:30
--- NOTE | 2020-01-24 15:42 | Surgery Progress Note ---
Surgery Progress Note Subjective Procedure Performed right femoral central venous catheter removal Additional Comments leukocytosis lft's noted h/h stable anasarca causing breakdown around collar Objective Last 24 Hour Vital Signs Date Time Temp Pulse Resp B/P (MAP) Pulse Ox O2 Delivery O2 Flow Rate FiO2 01/24/20 12:00 30 01/24/20 12:00 Mechanical Ventilator 01/24/20 12:00 97.7 78 26 123/58 (79) 100 01/24/20 11:33 77 01/24/20 11:30 78 24 30 01/24/20 08:00 97.9 82 28 136/67 (90) 100 01/24/20 08:00 Mechanical Ventilator 01/24/20 08:00 30 01/24/20 07:59 80 01/24/20 07:30 82 27 30 01/24/20 04:00 30 01/24/20 04:00 98.8 86 24 136/70 (92) 100 01/24/20 04:00 Mechanical Ventilator 01/24/20 03:56 86 27 30 01/24/20 03:50 87 01/24/20 00:00 84 01/24/20 00:00 Mechanical Ventilator 01/24/20 00:00 98.9 76 24 134/68 (90) 100 01/23/20 22:51 87 24 30 01/23/20 20:00 30 01/23/20 20:00 98.6 83 24 133/72 (92) 100 01/23/20 20:00 Mechanical Ventilator 01/23/20 19:52 82 26 30 01/23/20 19:26 81 01/23/20 18:48 98.2 81 22 148/71 (96) 100 01/23/20 16:00 Mechanical Ventilator 01/23/20 16:00 30 01/23/20 16:00 98.2 81 22 148/74 (98) 100 01/23/20 16:00 77 01/23/20 15:49 74 27 30 I&O Intake and Output 01/23/20 01/24/20 19:00 07:00 Intake Total 719 ml 1130.75 ml Output Total 150 ml 300 ml Balance 569 ml 830.75 ml Intake Free Water 200 ml 90 ml IV Total 75 ml 633.75 ml Tube Feeding 444 ml 407 ml Output Urine Total 150 ml 300 ml # Bowel Movements 2 7 Dressing: saturated Wound: other Drains: other Cardiovascular: RSR Respiratory: decreased breath sounds Abdomen: soft, non-tender, present bowel sounds, non-distended Extremities: edema, no tenderness, no cyanosis Laboratory Tests Test 01/24/20 05:00 White Blood Count 20.2 K/UL (4.8-10.8) H Red Blood Count 2.77 M/UL (4.70-6.10) L Hemoglobin 8.0 G/DL (14.2-18.0) L Hematocrit 25.2 % (42.0-52.0) L Mean Corpuscular Volume 91 FL (80-99) Mean Corpuscular Hemoglobin 28.9 PG (27.0-31.0) Mean Corpuscular Hemoglobin Concent 31.7 G/DL (32.0-36.0) L Red Cell Distribution Width 17.3 % (11.6-14.8) H Platelet Count 109 K/UL (150-450) L Mean Platelet Volume 11.6 FL (6.5-10.1) H Neutrophils (%) (Auto) % (45.0-75.0) Lymphocytes (%) (Auto) % (20.0-45.0) Monocytes (%) (Auto) % (1.0-10.0) Eosinophils (%) (Auto) % (0.0-3.0) Basophils (%) (Auto) % (0.0-2.0) Differential Total Cells Counted 100 Neutrophils % (Manual) 83 % (45-75) H Lymphocytes % (Manual) 6 % (20-45) L Monocytes % (Manual) 9 % (1-10) Eosinophils % (Manual) 2 % (0-3) Basophils % (Manual) 0 % (0-2) Band Neutrophils 0 % (0-8) Platelet Estimate Decreased L Platelet Morphology Normal Hypochromasia 2+ Anisocytosis 1+ Sodium Level 148 MMOL/L (136-145) H Potassium Level 3.7 MMOL/L (3.5-5.1) Chloride Level 116 MMOL/L (98-107) H Carbon Dioxide Level 15 MMOL/L (21-32) L Anion Gap 17 mmol/L (5-15) H Blood Urea Nitrogen 96 mg/dL (7-18) H Creatinine 4.2 MG/DL (0.55-1.30) H Estimat Glomerular Filtration Rate 18.1 mL/min (>60) Glucose Level 92 MG/DL (74-106) # Calcium Level 8.3 MG/DL (8.5-10.1) L Total Bilirubin 2.0 MG/DL (0.2-1.0) H Direct Bilirubin 1.6 MG/DL (0.0-0.3) H Aspartate Amino Transf (AST/SGOT) 107 U/L (15-37) H Alanine Aminotransferase (ALT/SGPT) 126 U/L (12-78) H Alkaline Phosphatase 191 U/L (46-116) H Total Protein 5.1 G/DL (6.4-8.2) L Albumin 0.5 G/DL (3.4-5.0) L Globulin 4.5 g/dL Plan Problems: (1) Hyponatremia (2) ARF (acute renal failure) (3) Hyperkalemia (4) Pressure sore on sacrum Assessment & Plan: Pt presented on admission with Sacral Pressure injury and Necrosis Both Both R lower ext, R foot and L foot. Generalized edema noted. Both upper ext noted to have multiple serous blisters ,some of which are weeping serous exudate. Full thickness Sacral Pressure Injury with undermined Borders. Base of wound is 75% loose necrotic tissue,25% bree. Bone exposure at base of wound. Area of necrosis noted at distal aspect of wound in space between wound and anus.Edges are macerated. Wound is malodorous.(L)9.5cm x (W)9.2cm x (D)2.9cm,undermining clockwise 10-3 by 3.8cm @12 o'clock. Scattered areas of hyperpigmentation noted to R and L clefts of buttocks. Unable to determine exudate as pt is continuously oozing large amt of semi soft black stool and leaking into wound because of close proximity to his rectum. At upper, R gluteal cheek is additional Pressure Injury with small amt Biofilm at base of wound. Edges are pink and adherent to base of wound. No exudate noted.(L)3cm x (W)2.6cm. Medially to distal Tibia,and extending to R foot is necrotic and malodorous.Wound is partially opened at posterior R tibia but is dry . L foot is necrotic and malodorous. No exudate noted. Tx.Plan: Cleanse Sacral wound with Dakin's 0.25% archana.. Loosely Pack wound with Dakin's moistened Kerlix.Apply Moisture Barrier Paste periwound.Cover with Optifoam drsg.Change Daily and PRN. Cleanse R lower ext and R foot with Dakin's 0.25% Archana. Cover wounds with ABD Pads.Wrap with Kerlix Daily and prn. Cleanse L foot Wounds with Dakin's 0.25% Archana. Cover wounds with ABD Pads and wrap with Kerlix Daily and prn. place abd between collar and neck daily and prn saturation (5) Upper GI bleed Assessment & Plan: Patient with sepsis, abnormal labs, GI bleed, pending COVID eval. Labs noted. Exam reviewed. Chest x-ray noted as below. Discussed with GI. Plan for endoscopy once COVID status evaluated. Trend hemoglobin for now transfuse PRN. G-tube is functional and okay for medications and will plan tube feeds accordingly. No acute surgical intervention as patient is actively bleeding. Proton pump inhibitor recommended and Rx as written. Will follow with recommendations thank you for let me participate in patient's care plt low anemia prognosis guarded no active GI bleeding noted Status post PEG Tolerating tube feeds but still having diarrhea Difficult with rectal tube slides right out likely from spinal injury Anasarca stable No active bleeding line Free currently will monitor closely There is a tracheostomy in place. Vascularity is normal. Hazy densities in the lung bases may be layering effusions. Cardiac and mediastinal silhouette are within normal limits. The bony thorax appear unremarkable. line removed will monitor for bleeding IMPRESSION: Bibasilar hazy densities perhaps layering effusions. right fem line not functional noted manipulation as suture was dislodged. line replaced 1. Two or three gastric AVMs. 2. Ulcer with a small visible vessel, status post gold probe bipolar cauterization. DAILY ESTIMATED NEEDS: Needs based on Critical Care, Wounds, TR / 61kg 25-30 kcals/kg 5502-3809 total kcals 0.8-1.25 (increase w/ renal improvement) g protein/kg 49-76 g total protein 25-30 mL/kg 9996-1959 total fluid mLs NUTRITION DIAGNOSIS: * Swallowing difficulty R/T respiratory status, dysphagia as evidenced by trach/vent dep, PEG dep. * Increased kcal/prot intake needs R/T wound healing as evidenced by admtited w/ multiple wounds including full thickness wound @ sacrum, pressure Injury with small amt Biofilm at base of wound @ uppera R gluteal cheek, necrotic wound @ medial to distal Tibia,and extending to R foot and L foot * Altered nutrition related lab R/T TR as evidenced by elev BUN (215-> 96), elev creat (5.2->4.2), low Na (124 ->148), elev K (6.7 -> wnl) CURRENT TF:Nepro @ 37ml/hr x 24 hrs ENTERAL NUTRITION RECOMMENDATIONS: Nepro @ 37ml/hr x 24 hrs to provide 888ml, 1598kcal, 72g prot, 646ml free water * Maintain current TF -> rec Nepro at this time given TR (Creat 5.2-> 4.3) w/ elev K upon adm * HOB over 30 degrees/ water flush per MD W/ CONTINUED DIARRHEA, consider trial of elemental formula of Vital AF 1.2 @ goal rate of 45ml/hr x 24 hrs to provide 1080ml, 1296kcal, 81g prot, 876lm free water: will meet 85% est kcal and 106% est prot needs. -----> W/ non renal TF, monitor lytes closely (K wnl at this time, phos level not available) ADDITIONAL RECOMMENDATIONS: * Per SNF: HT=62" WT= 135lbs (12/25/19) * Monitor renal fxn and lytes (Creat 5.3 -> 4.1) -> check phos and mag (not checked since adm) * Wound healing: Once TF well tolerated at goal, add Ajay BID * Monitor for hypoglycemia: no further episodes (now 70's) * Add probiotics to help improve gut ewelina- + diarrhea -> consider trial of elemental TF of Vital AF Study is somewhat limited due to anasarca and overlying bowel gas, midline gastrostomy bandages. Gallbladder demonstrates sludge and tiny stones. The gallbladder wall is mildly thickened. Sonographic Velázquez sign could not be assessed. Common bile duct measures 4 mm in diameter. No intrahepatic biliary ductal dilatation. The liver is enlarged. It demonstrates normal echogenicity. No focal abnormality. Small amount of ascites fluid is seen at the anterior liver surface and adjacent to the gallbladder, left upper quadrant, and in the pelvis Portal vein and hepatic veins are patent. Pancreas is obscured by bowel gas. Spleen is unremarkable. Left kidney measures 11.4 cm in length. Right kidney measures 10.9 cm length. Both kidneys demonstrate normal echogenicity. There is no hydronephrosis. No focal abnormality . Abdominal aorta is partially obscured by bowel gas, visualized portions are non-aneurysmal . There are small bilateral pleural effusions Javid Singh Jan 24, 2020 15:42
[2020-01-24] MEDS: 1/2NS w/KCl 20mEq 1000ml 1,000 ML IV SCH (15:44)
[2020-01-24 16:00] VITALS: BP 126/61
[2020-01-24 20:00] VITALS: BP 129/75
[2020-01-25] VITALS: BP 127/71
[2020-01-25 04:00] VITALS: BP 119/65
[2020-01-25] MEDS: 1/2NS w/KCl 20mEq 1000ml 1,000 ML IV SCH (05:08)
[2020-01-25] MEDS: Insulin NovoLOG Flexpen S/S (Mod) SUBQ SCH ×4 (05:10→23:15)
[2020-01-25] MEDS: Sodium Citrate 30ml GT SCH ×4 (05:10→23:13)
[2020-01-25] MEDS: Piperacillin/Tazobactam 3.375 GM in NS 110 ML IVPB SCH ×2 (05:10→18:20)
[2020-01-25 07:43] LABS: ALANINE AMINOTRANSFERASE 175 U/L (12-78); ALBUMIN < 0.6 G/DL (3.4-5.0); ALKALINE PHOSPHATASE 175 U/L (46-116); ANION GAP 20 mmol/L (5-15); ASPARTATE AMINO TRANSFERASE 195 U/L (15-37); BILIRUBIN,TOTAL 1.8 MG/DL (0.2-1.0); BLOOD UREA NITROGEN 107 mg/dL (7-18); CALCIUM 8.8 MG/DL (8.5-10.1); CARBON DIOXIDE 14 MMOL/L (21-32); CHLORIDE 117 MMOL/L (98-107); CREATININE 4.4 MG/DL (0.55-1.30); POTASSIUM 3.4 MMOL/L (3.5-5.1); SODIUM 151 MMOL/L (136-145)
[2020-01-25 07:46] LABS: BILIRUBIN,DIRECT 1.4 MG/DL (0.0-0.3)
[2020-01-25 08:00] VITALS: BP 116/52
[2020-01-25] MEDS: Pantoprazole Inj IVP SCH (08:29)
[2020-01-25] MEDS: Zinc Sulfate 220mg GT SCH (08:29)
[2020-01-25] MEDS: Dakin's 0.25% (Half Strength) 16oz TOPIC SCH (08:30)
[2020-01-25] MEDS ORDERED: D5NS 1000ml IV ONE (08:45)
[2020-01-25 09:39] LABS: HEMATOCRIT 25.4 % (42.0-52.0); HEMOGLOBIN 7.9 G/DL (14.2-18.0); MEAN CORPUSCULAR VOLUME 92 FL (80-99); PLATELET COUNT 92 K/UL (150-450); RED BLOOD COUNT 2.76 M/UL (4.70-6.10); RED CELL DISTRIBUTION WIDTH 17.7 % (11.6-14.8)
[2020-01-25 09:40] LABS: WHITE BLOOD COUNT 22.6 K/UL (4.8-10.8)
--- NOTE | 2020-01-25 10:55 | General Progress Note ---
Assessment/Plan Assessment/Plan: sepsis anemia GIB thrombocytopenia hyponatremia ARF DM dysphagia with GT s/p EGD/PEG GTF lomotil prn imodium prn ppi elevated LFTS>>> stable us reviewed fu abd CT, reviewed protonix daily will fu Subjective ROS Limited/Unobtainable: No Allergies: Coded Allergies: No Known Allergies (Unverified , 10/07/19) Objective Last 24 Hour Vital Signs Date Time Temp Pulse Resp B/P (MAP) Pulse Ox O2 Delivery O2 Flow Rate FiO2 01/25/20 10:27 66 25 30 01/25/20 08:00 97.3 73 21 116/52 (73) 100 01/25/20 08:00 72 01/25/20 08:00 Mechanical Ventilator 01/25/20 08:00 30 01/25/20 07:10 74 28 30 01/25/20 04:26 76 26 30 01/25/20 04:00 Mechanical Ventilator 01/25/20 04:00 30 01/25/20 04:00 97.5 71 24 119/65 (83) 100 01/25/20 04:00 77 01/25/20 00:00 80 01/25/20 00:00 Mechanical Ventilator 01/25/20 00:00 98.1 79 24 127/71 (89) 100 01/25/20 00:00 30 01/24/20 23:30 83 24 30 01/24/20 20:05 78 24 30 01/24/20 20:00 97.7 78 28 129/75 (93) 99 01/24/20 20:00 71 01/24/20 20:00 Mechanical Ventilator 01/24/20 20:00 30 01/24/20 16:00 Mechanical Ventilator 01/24/20 16:00 30 01/24/20 16:00 98.1 80 34 126/61 (82) 99 01/24/20 15:30 78 14 30 01/24/20 15:26 79 01/24/20 12:00 30 01/24/20 12:00 Mechanical Ventilator 01/24/20 12:00 97.7 78 26 123/58 (79) 100 01/24/20 11:33 77 01/24/20 11:30 78 24 30 Intake and Output 01/24/20 01/25/20 19:00 07:00 Intake Total 959.0 ml 1075.25 ml Output Total 400 ml 200 ml Balance 559.0 ml 875.25 ml Intake Free Water 60 ml IV Total 355.0 ml 571.25 ml Tube Feeding 444 ml 444 ml Other 160 ml Output Urine Total 400 ml 200 ml # Bowel Movements 2 5 Laboratory Tests 01/25/20 06:30: Sodium Level 151H, Potassium Level 3.4L, Chloride Level 117H, Carbon Dioxide Level 14L, Anion Gap 20H, Blood Urea Nitrogen 107H, Creatinine 4.4H, Estimat Glomerular Filtration Rate 17.1, Glucose Level 179H, Calcium Level 8.8, Total Bilirubin 1.8H, Direct Bilirubin 1.4H, Aspartate Amino Transf (AST/SGOT) 195H, Alanine Aminotransferase (ALT/SGPT) 175H, Alkaline Phosphatase 175H, Total Protein 5.2L, Albumin < 0.6L, Globulin 4.8 01/25/20 09:30: White Blood Count 22.6*H, Red Blood Count 2.76L, Hemoglobin 7.9L, Hematocrit 25.4L, Mean Corpuscular Volume 92, Mean Corpuscular Hemoglobin 28.6, Mean Corpuscular Hemoglobin Concent 31.1L, Red Cell Distribution Width 17.7H, Platelet Count 92L, Mean Platelet Volume 11.4H, Neutrophils (%) (Auto) , Lymphocytes (%) (Auto) , Monocytes (%) (Auto) , Eosinophils (%) (Auto) , Basophils (%) (Auto) , Neutrophils % (Manual) [Pending], Lymphocytes % (Manual) [Pending], Platelet Estimate [Pending], Platelet Morphology [Pending] Height (Feet): 5 Height (Inches): 5.00 Weight (Pounds): 183 General Appearance: no apparent distress EENT: normal ENT inspection Neck: supple Cardiovascular: normal rate Respiratory/Chest: decreased breath sounds Abdomen: normal bowel sounds, non tender, soft Extremities: non-tender Toni Mckenzie MD Jan 25, 2020 10:55
[2020-01-25] MEDS: D5W w/KCl 20mEq 1,000 ML IV SCH ×2 (11:58→21:02)
[2020-01-25 12:00] VITALS: BP 137/50
--- NOTE | 2020-01-25 13:04 | Surgery Progress Note ---
Surgery Progress Note Subjective Procedure Performed right femoral central venous catheter removal Additional Comments c collar changed given prior dirty and causing wounds Objective Last 24 Hour Vital Signs Date Time Temp Pulse Resp B/P (MAP) Pulse Ox O2 Delivery O2 Flow Rate FiO2 01/25/20 10:27 66 25 30 01/25/20 08:00 97.3 73 21 116/52 (73) 100 01/25/20 08:00 72 01/25/20 08:00 Mechanical Ventilator 01/25/20 08:00 30 01/25/20 07:10 74 28 30 01/25/20 04:26 76 26 30 01/25/20 04:00 Mechanical Ventilator 01/25/20 04:00 30 01/25/20 04:00 97.5 71 24 119/65 (83) 100 01/25/20 04:00 77 01/25/20 00:00 80 01/25/20 00:00 Mechanical Ventilator 01/25/20 00:00 98.1 79 24 127/71 (89) 100 01/25/20 00:00 30 01/24/20 23:30 83 24 30 01/24/20 20:05 78 24 30 01/24/20 20:00 97.7 78 28 129/75 (93) 99 01/24/20 20:00 71 01/24/20 20:00 Mechanical Ventilator 01/24/20 20:00 30 01/24/20 16:00 Mechanical Ventilator 01/24/20 16:00 30 01/24/20 16:00 98.1 80 34 126/61 (82) 99 01/24/20 15:30 78 14 30 01/24/20 15:26 79 I&O Intake and Output 01/24/20 01/25/20 19:00 07:00 Intake Total 959.0 ml 1075.25 ml Output Total 400 ml 200 ml Balance 559.0 ml 875.25 ml Intake Free Water 60 ml IV Total 355.0 ml 571.25 ml Tube Feeding 444 ml 444 ml Other 160 ml Output Urine Total 400 ml 200 ml # Bowel Movements 2 5 Dressing: saturated Cardiovascular: RSR Respiratory: decreased breath sounds Abdomen: soft, non-distended Extremities: edema, pulses, other Laboratory Tests Test 01/25/20 06:30 01/25/20 09:30 Sodium Level 151 MMOL/L (136-145) H Potassium Level 3.4 MMOL/L (3.5-5.1) L Chloride Level 117 MMOL/L (98-107) H Carbon Dioxide Level 14 MMOL/L (21-32) L Anion Gap 20 mmol/L (5-15) H Blood Urea Nitrogen 107 mg/dL (7-18) H Creatinine 4.4 MG/DL (0.55-1.30) H Estimat Glomerular Filtration Rate 17.1 mL/min (>60) Glucose Level 179 MG/DL (74-106) H Calcium Level 8.8 MG/DL (8.5-10.1) Total Bilirubin 1.8 MG/DL (0.2-1.0) H Direct Bilirubin 1.4 MG/DL (0.0-0.3) H Aspartate Amino Transf (AST/SGOT) 195 U/L (15-37) H Alanine Aminotransferase (ALT/SGPT) 175 U/L (12-78) H Alkaline Phosphatase 175 U/L (46-116) H Total Protein 5.2 G/DL (6.4-8.2) L Albumin < 0.6 G/DL (3.4-5.0) L Globulin 4.8 g/dL White Blood Count 22.6 K/UL (4.8-10.8) *H Red Blood Count 2.76 M/UL (4.70-6.10) L Hemoglobin 7.9 G/DL (14.2-18.0) L Hematocrit 25.4 % (42.0-52.0) L Mean Corpuscular Volume 92 FL (80-99) Mean Corpuscular Hemoglobin 28.6 PG (27.0-31.0) Mean Corpuscular Hemoglobin Concent 31.1 G/DL (32.0-36.0) L Red Cell Distribution Width 17.7 % (11.6-14.8) H Platelet Count 92 K/UL (150-450) L Mean Platelet Volume 11.4 FL (6.5-10.1) H Neutrophils (%) (Auto) % (45.0-75.0) Lymphocytes (%) (Auto) % (20.0-45.0) Monocytes (%) (Auto) % (1.0-10.0) Eosinophils (%) (Auto) % (0.0-3.0) Basophils (%) (Auto) % (0.0-2.0) Differential Total Cells Counted 100 Neutrophils % (Manual) 85 % (45-75) H Lymphocytes % (Manual) 6 % (20-45) L Monocytes % (Manual) 6 % (1-10) Eosinophils % (Manual) 1 % (0-3) Basophils % (Manual) 0 % (0-2) Band Neutrophils 2 % (0-8) Platelet Estimate Decreased L Platelet Morphology Normal Hypochromasia 1+ Anisocytosis 1+ Plan Problems: (1) Hyponatremia (2) ARF (acute renal failure) (3) Hyperkalemia (4) Pressure sore on sacrum Assessment & Plan: Pt presented on admission with Sacral Pressure injury and Necrosis Both Both R lower ext, R foot and L foot. Generalized edema noted. Both upper ext noted to have multiple serous blisters ,some of which are weeping serous exudate. Full thickness Sacral Pressure Injury with undermined Borders. Base of wound is 75% loose necrotic tissue,25% bree. Bone exposure at base of wound. Area of necrosis noted at distal aspect of wound in space between wound and anus.Edges are macerated. Wound is malodorous.(L)9.5cm x (W)9.2cm x (D)2.9cm,undermining clockwise 10-3 by 3.8cm @12 o'clock. Scattered areas of hyperpigmentation noted to R and L clefts of buttocks. Unable to determine exudate as pt is continuously oozing large amt of semi soft black stool and leaking into wound because of close proximity to his rectum. At upper, R gluteal cheek is additional Pressure Injury with small amt Biofilm at base of wound. Edges are pink and adherent to base of wound. No exudate noted.(L)3cm x (W)2.6cm. Medially to distal Tibia,and extending to R foot is necrotic and malodorous.Wound is partially opened at posterior R tibia but is dry . L foot is necrotic and malodorous. No exudate noted. Tx.Plan: Cleanse Sacral wound with Dakin's 0.25% archana.. Loosely Pack wound with Dakin's moistened Kerlix.Apply Moisture Barrier Paste periwound.Cover with Optifoam drsg.Change Daily and PRN. Cleanse R lower ext and R foot with Dakin's 0.25% Archana. Cover wounds with ABD Pads.Wrap with Kerlix Daily and prn. Cleanse L foot Wounds with Dakin's 0.25% Archana. Cover wounds with ABD Pads and wrap with Kerlix Daily and prn. soft collar placed (5) Upper GI bleed Assessment & Plan: Patient with sepsis, abnormal labs, GI bleed, pending COVID eval. Labs noted. Exam reviewed. Chest x-ray noted as below. Discussed with GI. Plan for endoscopy once COVID status evaluated. Trend hemoglobin for now transfuse PRN. G-tube is functional and okay for medications and will plan tube feeds accordingly. No acute surgical intervention as patient is actively bleeding. Proton pump inhibitor recommended and Rx as written. Will follow with recommendations thank you for let me participate in patient's care plt low anemia prognosis guarded no active GI bleeding noted Status post PEG Tolerating tube feeds but still having diarrhea Difficult with rectal tube slides right out likely from spinal injury Anasarca stable No active bleeding line Free currently will monitor closely There is a tracheostomy in place. Vascularity is normal. Hazy densities in the lung bases may be layering effusions. Cardiac and mediastinal silhouette are within normal limits. The bony thorax appear unremarkable. line removed will monitor for bleeding IMPRESSION: Bibasilar hazy densities perhaps layering effusions. right fem line not functional noted manipulation as suture was dislodged. line replaced 1. Two or three gastric AVMs. 2. Ulcer with a small visible vessel, status post gold probe bipolar cauterization. DAILY ESTIMATED NEEDS: Needs based on Critical Care, Wounds, TR / 61kg 25-30 kcals/kg 9105-0243 total kcals 0.8-1.25 (increase w/ renal improvement) g protein/kg 49-76 g total protein 25-30 mL/kg 4219-5549 total fluid mLs NUTRITION DIAGNOSIS: * Swallowing difficulty R/T respiratory status, dysphagia as evidenced by trach/vent dep, PEG dep. * Increased kcal/prot intake needs R/T wound healing as evidenced by admtited w/ multiple wounds including full thickness wound @ sacrum, pressure Injury with small amt Biofilm at base of wound @ uppera R gluteal cheek, necrotic wound @ medial to distal Tibia,and extending to R foot and L foot * Altered nutrition related lab R/T TR as evidenced by elev BUN (215-> 96), elev creat (5.2->4.2), low Na (124 ->148), elev K (6.7 -> wnl) CURRENT TF:Nepro @ 37ml/hr x 24 hrs ENTERAL NUTRITION RECOMMENDATIONS: Nepro @ 37ml/hr x 24 hrs to provide 888ml, 1598kcal, 72g prot, 646ml free water * Maintain current TF -> rec Nepro at this time given TR (Creat 5.2-> 4.3) w/ elev K upon adm * HOB over 30 degrees/ water flush per MD W/ CONTINUED DIARRHEA, consider trial of elemental formula of Vital AF 1.2 @ goal rate of 45ml/hr x 24 hrs to provide 1080ml, 1296kcal, 81g prot, 876lm free water: will meet 85% est kcal and 106% est prot needs. -----> W/ non renal TF, monitor lytes closely (K wnl at this time, phos level not available) ADDITIONAL RECOMMENDATIONS: * Per SNF: HT=62" WT= 135lbs (12/25/19) * Monitor renal fxn and lytes (Creat 5.3 -> 4.1) -> check phos and mag (not checked since adm) * Wound healing: Once TF well tolerated at goal, add Ajay BID * Monitor for hypoglycemia: no further episodes (now 70's) * Add probiotics to help improve gut ewelina- + diarrhea -> consider trial of elemental TF of Vital AF Study is somewhat limited due to anasarca and overlying bowel gas, midline gastrostomy bandages. Gallbladder demonstrates sludge and tiny stones. The gallbladder wall is mildly thickened. Sonographic Velázquez sign could not be assessed. Common bile duct measures 4 mm in diameter. No intrahepatic biliary ductal dilatation. The liver is enlarged. It demonstrates normal echogenicity. No focal abnormality. Small amount of ascites fluid is seen at the anterior liver surface and adjacent to the gallbladder, left upper quadrant, and in the pelvis Portal vein and hepatic veins are patent. Pancreas is obscured by bowel gas. Spleen is unremarkable. Left kidney measures 11.4 cm in length. Right kidney measures 10.9 cm length. Both kidneys demonstrate normal echogenicity. There is no hydronephrosis. No focal abnormality . Abdominal aorta is partially obscured by bowel gas, visualized portions are non-aneurysmal . There are small bilateral pleural effusions Javid Singh Jan 25, 2020 13:04
--- NOTE | 2020-01-25 14:00 | Nephrology Progress Note ---
Assessment/Plan Problem List: (1) Respiratory failure (2) ARF (acute renal failure) (3) Hyponatremia (4) Hyperkalemia (5) Upper GI bleed (6) Pressure sore on sacrum (7) Diarrhea (8) Severe malnutrition Plan diarrhea, reorder iv fluids,BUN/creatinine 70/.91 11/2019, enteral hydration , BUN lower enteral fluids reji likely from infection, severe hypoalbuminemia and anasarca with poor prognosis Na higher iv adjusted, bicitra started for acidosis, kcl Subjective ROS Limited/Unobtainable: Yes Objective Objective Last 24 Hour Vital Signs Date Time Temp Pulse Resp B/P (MAP) Pulse Ox O2 Delivery O2 Flow Rate FiO2 01/25/20 12:00 30 01/25/20 12:00 68 01/25/20 10:27 66 25 30 01/25/20 08:00 97.3 73 21 116/52 (73) 100 01/25/20 08:00 72 01/25/20 08:00 Mechanical Ventilator 01/25/20 08:00 30 01/25/20 07:10 74 28 30 01/25/20 04:26 76 26 30 01/25/20 04:00 Mechanical Ventilator 01/25/20 04:00 30 01/25/20 04:00 97.5 71 24 119/65 (83) 100 01/25/20 04:00 77 01/25/20 00:00 80 01/25/20 00:00 Mechanical Ventilator 01/25/20 00:00 98.1 79 24 127/71 (89) 100 01/25/20 00:00 30 01/24/20 23:30 83 24 30 01/24/20 20:05 78 24 30 01/24/20 20:00 97.7 78 28 129/75 (93) 99 01/24/20 20:00 71 01/24/20 20:00 Mechanical Ventilator 01/24/20 20:00 30 01/24/20 16:00 Mechanical Ventilator 01/24/20 16:00 30 01/24/20 16:00 98.1 80 34 126/61 (82) 99 01/24/20 15:30 78 14 30 01/24/20 15:26 79 Intake and Output 01/24/20 01/25/20 19:00 07:00 Intake Total 959.0 ml 1075.25 ml Output Total 400 ml 200 ml Balance 559.0 ml 875.25 ml Intake Free Water 60 ml IV Total 355.0 ml 571.25 ml Tube Feeding 444 ml 444 ml Other 160 ml Output Urine Total 400 ml 200 ml # Bowel Movements 2 5 Laboratory Tests 01/25/20 06:30: Sodium Level 151H, Potassium Level 3.4L, Chloride Level 117H, Carbon Dioxide Level 14L, Anion Gap 20H, Blood Urea Nitrogen 107H, Creatinine 4.4H, Estimat Glomerular Filtration Rate 17.1, Glucose Level 179H, Calcium Level 8.8, Total Bilirubin 1.8H, Direct Bilirubin 1.4H, Aspartate Amino Transf (AST/SGOT) 195H, Alanine Aminotransferase (ALT/SGPT) 175H, Alkaline Phosphatase 175H, Total Protein 5.2L, Albumin < 0.6L, Globulin 4.8 01/25/20 09:30: White Blood Count 22.6*H, Red Blood Count 2.76L, Hemoglobin 7.9L, Hematocrit 25.4L, Mean Corpuscular Volume 92, Mean Corpuscular Hemoglobin 28.6, Mean Corpuscular Hemoglobin Concent 31.1L, Red Cell Distribution Width 17.7H, Platelet Count 92L, Mean Platelet Volume 11.4H, Neutrophils (%) (Auto) , Lymphocytes (%) (Auto) , Monocytes (%) (Auto) , Eosinophils (%) (Auto) , Basophils (%) (Auto) , Differential Total Cells Counted 100, Neutrophils % ( Manual) 85H, Lymphocytes % (Manual) 6L, Monocytes % (Manual) 6, Eosinophils % ( Manual) 1, Basophils % (Manual) 0, Band Neutrophils 2, Platelet Estimate DecreasedL, Platelet Morphology Normal, Hypochromasia 1+, Anisocytosis 1+ Height (Feet): 5 Height (Inches): 5.00 Weight (Pounds): 183 General Appearance: lethargic, other - on vent Cardiovascular: regular rhythm Respiratory/Chest: rhonchi - bilaterally Abdomen: soft Extremities: moderate edema Neurologic: unresponsive Martin Yee MD Jan 25, 2020 14:00
[2020-01-25 16:00] VITALS: BP 104/65
--- NOTE | 2020-01-25 17:13 | Pulmonology Progress Note ---
Subjective ROS Limited/Unobtainable: No Constitutional: Denies: fever Gastrointestinal/Abdominal: Reports: diarrhea Allergies: Coded Allergies: No Known Allergies (Unverified , 10/07/19) All Systems: reviewed and negative except above Objective Last 24 Hour Vital Signs Date Time Temp Pulse Resp B/P (MAP) Pulse Ox O2 Delivery O2 Flow Rate FiO2 01/25/20 16:00 30 01/25/20 16:00 68 01/25/20 15:16 57 29 30 01/25/20 12:00 30 01/25/20 12:00 96.4 68 19 137/50 (79) 100 01/25/20 12:00 68 01/25/20 12:00 Mechanical Ventilator 01/25/20 10:27 66 25 30 01/25/20 08:00 97.3 73 21 116/52 (73) 100 01/25/20 08:00 72 01/25/20 08:00 Mechanical Ventilator 01/25/20 08:00 30 01/25/20 07:10 74 28 30 01/25/20 04:26 76 26 30 01/25/20 04:00 Mechanical Ventilator 01/25/20 04:00 30 01/25/20 04:00 97.5 71 24 119/65 (83) 100 01/25/20 04:00 77 01/25/20 00:00 80 01/25/20 00:00 Mechanical Ventilator 01/25/20 00:00 98.1 79 24 127/71 (89) 100 01/25/20 00:00 30 01/24/20 23:30 83 24 30 01/24/20 20:05 78 24 30 01/24/20 20:00 97.7 78 28 129/75 (93) 99 01/24/20 20:00 71 01/24/20 20:00 Mechanical Ventilator 01/24/20 20:00 30 Intake and Output 01/24/20 01/25/20 19:00 07:00 Intake Total 959.0 ml 1075.25 ml Output Total 400 ml 200 ml Balance 559.0 ml 875.25 ml Intake Free Water 60 ml IV Total 355.0 ml 571.25 ml Tube Feeding 444 ml 444 ml Other 160 ml Output Urine Total 400 ml 200 ml # Bowel Movements 2 5 Laboratory Tests 01/25/20 06:30: Sodium Level 151H, Potassium Level 3.4L, Chloride Level 117H, Carbon Dioxide Level 14L, Anion Gap 20H, Blood Urea Nitrogen 107H, Creatinine 4.4H, Estimat Glomerular Filtration Rate 17.1, Glucose Level 179H, Calcium Level 8.8, Total Bilirubin 1.8H, Direct Bilirubin 1.4H, Aspartate Amino Transf (AST/SGOT) 195H, Alanine Aminotransferase (ALT/SGPT) 175H, Alkaline Phosphatase 175H, Total Protein 5.2L, Albumin < 0.6L, Globulin 4.8 01/25/20 09:30: White Blood Count 22.6*H, Red Blood Count 2.76L, Hemoglobin 7.9L, Hematocrit 25.4L, Mean Corpuscular Volume 92, Mean Corpuscular Hemoglobin 28.6, Mean Corpuscular Hemoglobin Concent 31.1L, Red Cell Distribution Width 17.7H, Platelet Count 92L, Mean Platelet Volume 11.4H, Neutrophils (%) (Auto) , Lymphocytes (%) (Auto) , Monocytes (%) (Auto) , Eosinophils (%) (Auto) , Basophils (%) (Auto) , Differential Total Cells Counted 100, Neutrophils % ( Manual) 85H, Lymphocytes % (Manual) 6L, Monocytes % (Manual) 6, Eosinophils % ( Manual) 1, Basophils % (Manual) 0, Band Neutrophils 2, Platelet Estimate DecreasedL, Platelet Morphology Normal, Hypochromasia 1+, Anisocytosis 1+ Current Medications Medications (Trade) Dose Ordered Sig/[place] Route PRN Reason Start Time Stop Time Status Last Admin Dose Admin Al Hydroxide/Mg Hydroxide (Mylanta) 30 ml QIDPRN PRN GT stomach upset 01/14/20 16:45 02/13/20 16:44 Artificial Tears (Akwa-Tears) 1 drop EVERY 12 HOURS BOTH EYES 01/14/20 21:00 02/13/20 20:59 01/25/20 08:29 Dextrose (Dextrose 50%) 25 ml Q30M PRN IV Hypoglycemia 01/14/20 16:45 04/13/20 16:44 01/20/20 09:08 Dextrose (Dextrose 50%) 50 ml Q30M PRN IV hypoglycemia 01/14/20 16:45 04/13/20 16:44 01/14/20 21:25 Dextrose/ Electrolytes 1,000 ml @ 100 mls/hr Q10H IV 01/25/20 11:30 02/24/20 11:29 01/25/20 11:58 Diphenoxylate HCl/ Atropine (Lomotil) 2.5 mg Q4H PRN ORAL Diarrhea 01/22/20 12:00 02/21/20 11:59 Insulin Aspart (NovoLOG) No Dose Q6HR SUBQ 01/14/20 18:00 04/13/20 17:59 01/25/20 12:02 Loperamide HCl (Imodium) 2 mg Q4H PRN ORAL Diarrhea 01/19/20 16:00 02/16/20 10:29 Pantoprazole (Protonix) 40 mg DAILY IVP 01/20/20 09:00 02/19/20 08:59 01/25/20 08:29 Piperacillin Sod/ Tazobactam Sod 3.375 gm/Sodium Chloride 110 ml @ 27.5 mls/hr Q12H IVPB 01/25/20 18:00 02/01/20 17:59 Sodium Hypochlorite (Dakin's Half Strength) 1 applic DAILY TOPIC 01/15/20 09:00 02/14/20 08:59 01/25/20 08:30 Sodium Citrate (Bicitra) 30 ml EVERY 6 HOURS GT 01/20/20 18:00 02/19/20 17:59 01/25/20 11:58 Zinc Sulfate (Zinc Sulfate) 220 mg DAILY GT 01/15/20 09:00 04/14/20 08:59 01/25/20 08:29 Assessment/Plan Assessment/Plan Pulmonary Progress Note Subjective ROS Limited/Unobtainable: Yes Constitutional: no new complaints Allergies: No Known Allergies Subjective care noted on vent sp transfusion previously renal function impaired Objective Vital Signs noted Objective WDWN trach clear equal breath sounds bilaterally [id number] without MRG NABS nontender no HSM no CCE poor LOC reviewed and edited Laboratory Tests Noted Assessment/Plan IMPRESSION chronic respiratory failure Acute on chronic renal failure elevated K anemia GIB leukocytosis possible sepsis oral bleeding PLAN monitor HH- transfuse as needed monitor wbc IV hydration iv antibiotics ID , GI and renal vent as is monitor vitals hold feeds snf meds full code prognosis very poor for recovery difficult to optimize impression, plan, and exam edited and reviewed in detail care discussed with Jovi Newsome MD Jan 25, 2020 17:13
[2020-01-25 20:00] VITALS: BP 125/51
[2020-01-26] VITALS: BP 119/62
[2020-01-26 04:00] VITALS: BP 125/64
[2020-01-26] MEDS: Insulin NovoLOG Flexpen S/S (Mod) SUBQ SCH ×4 (05:03→23:58)
[2020-01-26] MEDS: Sodium Citrate 30ml GT SCH ×4 (05:03→23:58)
[2020-01-26] MEDS: Piperacillin/Tazobactam 3.375 GM in NS 110 ML IVPB SCH ×2 (05:04→17:41)
[2020-01-26 08:00] VITALS: BP 110/63
[2020-01-26] MEDS: D5W w/KCl 20mEq 1,000 ML IV SCH ×2 (08:55→17:45)
[2020-01-26] MEDS: Zinc Sulfate 220mg GT SCH (09:22)
[2020-01-26] MEDS: Pantoprazole Inj IVP SCH (09:22)
[2020-01-26] MEDS: Dakin's 0.25% (Half Strength) 16oz TOPIC SCH (09:24)
--- NOTE | 2020-01-26 09:32 | General Progress Note ---
Assessment/Plan Assessment/Plan: sepsis anemia GIB thrombocytopenia hyponatremia ARF DM dysphagia with GT s/p EGD/PEG GTF on hold given vomiting last night lomotil prn imodium prn ppi elevated LFTS>>> stable us reviewed fu abd CT, reviewed protonix daily will fu Subjective ROS Limited/Unobtainable: No Allergies: Coded Allergies: No Known Allergies (Unverified , 10/07/19) Objective Last 24 Hour Vital Signs Date Time Temp Pulse Resp B/P (MAP) Pulse Ox O2 Delivery O2 Flow Rate FiO2 01/26/20 08:00 96.3 60 18 110/63 (79) 100 01/26/20 07:39 62 24 30 01/26/20 04:00 97.9 72 20 125/64 (84) 100 01/26/20 04:00 Mechanical Ventilator 01/26/20 04:00 30 01/26/20 03:48 66 01/26/20 03:30 60 24 30 01/26/20 00:00 98.2 71 20 119/62 (81) 100 01/26/20 00:00 Mechanical Ventilator 01/25/20 23:47 38 01/25/20 23:34 68 01/25/20 23:09 70 26 30 01/25/20 20:00 30 01/25/20 20:00 Mechanical Ventilator 01/25/20 20:00 97.6 64 20 125/51 (75) 100 01/25/20 19:41 65 24 30 01/25/20 19:26 67 01/25/20 16:00 30 01/25/20 16:00 Mechanical Ventilator 01/25/20 16:00 68 01/25/20 16:00 97.0 70 20 104/65 (78) 100 01/25/20 15:16 57 29 30 01/25/20 12:00 30 01/25/20 12:00 96.4 68 19 137/50 (79) 100 01/25/20 12:00 68 01/25/20 12:00 Mechanical Ventilator 01/25/20 10:27 66 25 30 Intake and Output 01/25/20 01/26/20 19:00 07:00 Intake Total 1544 ml 1148.834 ml Output Total 200 ml 500 ml Balance 1344 ml 648.834 ml Intake Free Water 200 ml 90 ml IV Total 900 ml 910.834 ml Tube Feeding 444 ml 148 ml Output Urine Total 200 ml 500 ml # Bowel Movements 2 4 Height (Feet): 5 Height (Inches): 5.00 Weight (Pounds): 182 General Appearance: lethargic EENT: normal ENT inspection Neck: supple Cardiovascular: bradycardia Respiratory/Chest: decreased breath sounds Abdomen: soft, hypoactive bowel sounds Extremities: non-tender Toni Mckenzie MD Jan 26, 2020 09:32
--- NOTE | 2020-01-26 09:43 | Surgery Progress Note ---
Surgery Progress Note Subjective Procedure Performed right femoral central venous catheter removal Additional Comments Overnight had episode of emesis. Tube feeds held. Labs noted worsening leukocytosis. LFTs stable. Collar in place. Overall prognosis guarded Objective Last 24 Hour Vital Signs Date Time Temp Pulse Resp B/P (MAP) Pulse Ox O2 Delivery O2 Flow Rate FiO2 01/26/20 08:00 96.3 60 18 110/63 (79) 100 01/26/20 07:39 62 24 30 01/26/20 04:00 97.9 72 20 125/64 (84) 100 01/26/20 04:00 Mechanical Ventilator 01/26/20 04:00 30 01/26/20 03:48 66 01/26/20 03:30 60 24 30 01/26/20 00:00 98.2 71 20 119/62 (81) 100 01/26/20 00:00 Mechanical Ventilator 01/25/20 23:47 38 01/25/20 23:34 68 01/25/20 23:09 70 26 30 01/25/20 20:00 30 01/25/20 20:00 Mechanical Ventilator 01/25/20 20:00 97.6 64 20 125/51 (75) 100 01/25/20 19:41 65 24 30 01/25/20 19:26 67 01/25/20 16:00 30 01/25/20 16:00 Mechanical Ventilator 01/25/20 16:00 68 01/25/20 16:00 97.0 70 20 104/65 (78) 100 01/25/20 15:16 57 29 30 01/25/20 12:00 30 01/25/20 12:00 96.4 68 19 137/50 (79) 100 01/25/20 12:00 68 01/25/20 12:00 Mechanical Ventilator 01/25/20 10:27 66 25 30 I&O Intake and Output 01/25/20 01/26/20 19:00 07:00 Intake Total 1544 ml 1148.834 ml Output Total 200 ml 500 ml Balance 1344 ml 648.834 ml Intake Free Water 200 ml 90 ml IV Total 900 ml 910.834 ml Tube Feeding 444 ml 148 ml Output Urine Total 200 ml 500 ml # Bowel Movements 2 4 Dressing: saturated Wound: other Drains: other Cardiovascular: RSR Respiratory: decreased breath sounds Abdomen: soft, present bowel sounds, non-distended Extremities: edema, no tenderness, no cyanosis Plan Problems: (1) Hyponatremia (2) ARF (acute renal failure) (3) Hyperkalemia (4) Pressure sore on sacrum Assessment & Plan: Pt presented on admission with Sacral Pressure injury and Necrosis Both Both R lower ext, R foot and L foot. Generalized edema noted. Both upper ext noted to have multiple serous blisters ,some of which are weeping serous exudate. Full thickness Sacral Pressure Injury with undermined Borders. Base of wound is 75% loose necrotic tissue,25% bree. Bone exposure at base of wound. Area of necrosis noted at distal aspect of wound in space between wound and anus.Edges are macerated. Wound is malodorous.(L)9.5cm x (W)9.2cm x (D)2.9cm,undermining clockwise 10-3 by 3.8cm @12 o'clock. Scattered areas of hyperpigmentation noted to R and L clefts of buttocks. Unable to determine exudate as pt is continuously oozing large amt of semi soft black stool and leaking into wound because of close proximity to his rectum. At upper, R gluteal cheek is additional Pressure Injury with small amt Biofilm at base of wound. Edges are pink and adherent to base of wound. No exudate noted.(L)3cm x (W)2.6cm. Medially to distal Tibia,and extending to R foot is necrotic and malodorous.Wound is partially opened at posterior R tibia but is dry . L foot is necrotic and malodorous. No exudate noted. Tx.Plan: Cleanse Sacral wound with Dakin's 0.25% archana.. Loosely Pack wound with Dakin's moistened Kerlix.Apply Moisture Barrier Paste periwound.Cover with Optifoam drsg.Change Daily and PRN. Cleanse R lower ext and R foot with Dakin's 0.25% Archana. Cover wounds with ABD Pads.Wrap with Kerlix Daily and prn. Cleanse L foot Wounds with Dakin's 0.25% Archana. Cover wounds with ABD Pads and wrap with Kerlix Daily and prn. soft collar placed (5) Upper GI bleed Assessment & Plan: Patient with sepsis, abnormal labs, GI bleed, pending COVID eval. Labs noted. Exam reviewed. Chest x-ray noted as below. Discussed with GI. Plan for endoscopy once COVID status evaluated. Trend hemoglobin for now transfuse PRN. G-tube is functional and okay for medications and will plan tube feeds accordingly. No acute surgical intervention as patient is actively bleeding. Proton pump inhibitor recommended and Rx as written. Will follow with recommendations thank you for let me participate in patient's care plt low anemia prognosis guarded no active GI bleeding noted Status post PEG Tolerating tube feeds but still having diarrhea Difficult with rectal tube slides right out likely from spinal injury Anasarca stable No active bleeding line Free currently will monitor closely There is a tracheostomy in place. Vascularity is normal. Hazy densities in the lung bases may be layering effusions. Cardiac and mediastinal silhouette are within normal limits. The bony thorax appear unremarkable. line removed will monitor for bleeding IMPRESSION: Bibasilar hazy densities perhaps layering effusions. right fem line not functional noted manipulation as suture was dislodged. line replaced 1. Two or three gastric AVMs. 2. Ulcer with a small visible vessel, status post gold probe bipolar cauterization. DAILY ESTIMATED NEEDS: Needs based on Critical Care, Wounds, TR / 61kg 25-30 kcals/kg 7022-7634 total kcals 0.8-1.25 (increase w/ renal improvement) g protein/kg 49-76 g total protein 25-30 mL/kg 3632-1334 total fluid mLs NUTRITION DIAGNOSIS: * Swallowing difficulty R/T respiratory status, dysphagia as evidenced by trach/vent dep, PEG dep. * Increased kcal/prot intake needs R/T wound healing as evidenced by admtited w/ multiple wounds including full thickness wound @ sacrum, pressure Injury with small amt Biofilm at base of wound @ uppera R gluteal cheek, necrotic wound @ medial to distal Tibia,and extending to R foot and L foot * Altered nutrition related lab R/T TR as evidenced by elev BUN (215-> 96), elev creat (5.2->4.2), low Na (124 ->148), elev K (6.7 -> wnl) CURRENT TF:Nepro @ 37ml/hr x 24 hrs ENTERAL NUTRITION RECOMMENDATIONS: Nepro @ 37ml/hr x 24 hrs to provide 888ml, 1598kcal, 72g prot, 646ml free water * Maintain current TF -> rec Nepro at this time given TR (Creat 5.2-> 4.3) w/ elev K upon adm * HOB over 30 degrees/ water flush per MD W/ CONTINUED DIARRHEA, consider trial of elemental formula of Vital AF 1.2 @ goal rate of 45ml/hr x 24 hrs to provide 1080ml, 1296kcal, 81g prot, 876lm free water: will meet 85% est kcal and 106% est prot needs. -----> W/ non renal TF, monitor lytes closely (K wnl at this time, phos level not available) ADDITIONAL RECOMMENDATIONS: * Per SNF: HT=62" WT= 135lbs (12/25/19) * Monitor renal fxn and lytes (Creat 5.3 -> 4.1) -> check phos and mag (not checked since adm) * Wound healing: Once TF well tolerated at goal, add Ajay BID * Monitor for hypoglycemia: no further episodes (now 70's) * Add probiotics to help improve gut ewelina- + diarrhea -> consider trial of elemental TF of Vital AF Study is somewhat limited due to anasarca and overlying bowel gas, midline gastrostomy bandages. Gallbladder demonstrates sludge and tiny stones. The gallbladder wall is mildly thickened. Sonographic Velázquez sign could not be assessed. Common bile duct measures 4 mm in diameter. No intrahepatic biliary ductal dilatation. The liver is enlarged. It demonstrates normal echogenicity. No focal abnormality. Small amount of ascites fluid is seen at the anterior liver surface and adjacent to the gallbladder, left upper quadrant, and in the pelvis Portal vein and hepatic veins are patent. Pancreas is obscured by bowel gas. Spleen is unremarkable. Left kidney measures 11.4 cm in length. Right kidney measures 10.9 cm length. Both kidneys demonstrate normal echogenicity. There is no hydronephrosis. No focal abnormality . Abdominal aorta is partially obscured by bowel gas, visualized portions are non-aneurysmal . There are small bilateral pleural effusions (6) Severe malnutrition Assessment & Plan: emesis tf on hold monitor residuals (7) Respiratory failure Javid Singh Jan 26, 2020 09:43
[2020-01-26] MEDS: Metoclopramide 10mg/2ml Inj IVP SCH ×2 (10:10→17:42)
[2020-01-26 11:16] LABS: HEMATOCRIT 25.9 % (42.0-52.0); HEMOGLOBIN 7.7 G/DL (14.2-18.0); MEAN CORPUSCULAR VOLUME 94 FL (80-99); PLATELET COUNT 108 K/UL (150-450); RED BLOOD COUNT 2.77 M/UL (4.70-6.10); RED CELL DISTRIBUTION WIDTH 19.8 % (11.6-14.8)
[2020-01-26 11:17] LABS: WHITE BLOOD COUNT 23.3 K/UL (4.8-10.8)
[2020-01-26 11:30] LABS: ANION GAP 18 mmol/L (5-15); BLOOD UREA NITROGEN 118 mg/dL (7-18); CALCIUM 8.8 MG/DL (8.5-10.1); CARBON DIOXIDE 14 MMOL/L (21-32); CHLORIDE 117 MMOL/L (98-107); CREATININE 4.4 MG/DL (0.55-1.30); POTASSIUM 3.4 MMOL/L (3.5-5.1); SODIUM 149 MMOL/L (136-145)
[2020-01-26 12:00] VITALS: BP 102/73
--- NOTE | 2020-01-26 13:28 | Infectious Diseases Prog Note ---
Assessment/Plan Assessment/Plan A 1. E. coli, Providencia & Pseudomonas pneumonia 2. Acute renal failure 3. Ventilator dependent respiratory failure 4. intracranial hemorrhage 5. paraplegia 6. leucocytosis 7. GI bleeding 8. Anemia 9. COVID19 test X 2: negative 10- Gangrene of feet 11. Thrombocytopenia 12. Hepatomegaly 13. sacral pressure ulcer 14. Cholelithiasis P 1. continue Zosyn 2. Poor prognosis 3. Repeat CXR Subjective ROS Limited/Unobtainable: Yes Constitutional: Denies: fever Allergies: Coded Allergies: No Known Allergies (Unverified , 10/07/19) Objective Vital Signs Last 24 Hour Vital Signs Date Time Temp Pulse Resp B/P (MAP) Pulse Ox O2 Delivery O2 Flow Rate FiO2 01/26/20 12:57 62 24 30 01/26/20 12:00 30 01/26/20 12:00 Mechanical Ventilator 01/26/20 12:00 96.1 61 22 102/73 (83) 100 01/26/20 11:35 61 01/26/20 08:00 Mechanical Ventilator 01/26/20 08:00 30 01/26/20 08:00 96.3 60 18 110/63 (79) 100 01/26/20 07:55 61 01/26/20 07:39 62 24 30 01/26/20 04:00 97.9 72 20 125/64 (84) 100 01/26/20 04:00 Mechanical Ventilator 01/26/20 04:00 30 01/26/20 03:48 66 01/26/20 03:30 60 24 30 01/26/20 00:00 98.2 71 20 119/62 (81) 100 01/26/20 00:00 Mechanical Ventilator 01/25/20 23:47 38 01/25/20 23:34 68 01/25/20 23:09 70 26 30 01/25/20 20:00 30 01/25/20 20:00 Mechanical Ventilator 01/25/20 20:00 97.6 64 20 125/51 (75) 100 01/25/20 19:41 65 24 30 01/25/20 19:26 67 01/25/20 16:00 30 01/25/20 16:00 Mechanical Ventilator 01/25/20 16:00 68 01/25/20 16:00 97.0 70 20 104/65 (78) 100 01/25/20 15:16 57 29 30 Height (Feet): 5 Height (Inches): 5.00 Weight (Pounds): 182 HEENT: status post trach Respiratory/Chest: lungs clear, other - on ventilator Cardiovascular: normal rate Abdomen: soft, non tender, other - GT feeding Extremities: other - generalized edema Skin: other - feet gagrene Neurologic/Psychiatric: unresponsiveness Laboratory Tests Test 01/26/20 10:40 White Blood Count 23.3 K/UL (4.8-10.8) *H Red Blood Count 2.77 M/UL (4.70-6.10) L Hemoglobin 7.7 G/DL (14.2-18.0) L Hematocrit 25.9 % (42.0-52.0) L Mean Corpuscular Volume 94 FL (80-99) Mean Corpuscular Hemoglobin 28.0 PG (27.0-31.0) Mean Corpuscular Hemoglobin Concent 29.9 G/DL (32.0-36.0) L Red Cell Distribution Width 19.8 % (11.6-14.8) H Platelet Count 108 K/UL (150-450) L Mean Platelet Volume 12.2 FL (6.5-10.1) H Neutrophils (%) (Auto) % (45.0-75.0) Lymphocytes (%) (Auto) % (20.0-45.0) Monocytes (%) (Auto) % (1.0-10.0) Eosinophils (%) (Auto) % (0.0-3.0) Basophils (%) (Auto) % (0.0-2.0) Differential Total Cells Counted 100 Neutrophils % (Manual) 88 % (45-75) H Lymphocytes % (Manual) 8 % (20-45) L Monocytes % (Manual) 4 % (1-10) Eosinophils % (Manual) 0 % (0-3) Basophils % (Manual) 0 % (0-2) Band Neutrophils 0 % (0-8) Platelet Estimate Decreased L Platelet Morphology Normal Polychromasia 1+ Hypochromasia 1+ Anisocytosis 1+ Sodium Level 149 MMOL/L (136-145) H Potassium Level 3.4 MMOL/L (3.5-5.1) L Chloride Level 117 MMOL/L (98-107) H Carbon Dioxide Level 14 MMOL/L (21-32) L Anion Gap 18 mmol/L (5-15) H Blood Urea Nitrogen 118 mg/dL (7-18) H Creatinine 4.4 MG/DL (0.55-1.30) H Estimat Glomerular Filtration Rate 17.1 mL/min (>60) Glucose Level 139 MG/DL (74-106) H Calcium Level 8.8 MG/DL (8.5-10.1) Current Medications Medications (Trade) Dose Ordered Sig/[place] Route PRN Reason Start Time Stop Time Status Last Admin Dose Admin Al Hydroxide/Mg Hydroxide (Mylanta) 30 ml QIDPRN PRN GT stomach upset 01/14/20 16:45 02/13/20 16:44 Artificial Tears (Akwa-Tears) 1 drop EVERY 12 HOURS BOTH EYES 01/14/20 21:00 02/13/20 20:59 01/26/20 09:23 Dextrose (Dextrose 50%) 25 ml Q30M PRN IV Hypoglycemia 01/14/20 16:45 04/13/20 16:44 01/20/20 09:08 Dextrose (Dextrose 50%) 50 ml Q30M PRN IV hypoglycemia 01/14/20 16:45 04/13/20 16:44 01/14/20 21:25 Dextrose/ Electrolytes 1,000 ml @ 100 mls/hr Q10H IV 01/25/20 11:30 02/24/20 11:29 01/26/20 08:55 Diphenoxylate HCl/ Atropine (Lomotil) 2.5 mg Q4H PRN ORAL Diarrhea 01/22/20 12:00 02/21/20 11:59 Insulin Aspart (NovoLOG) No Dose Q6HR SUBQ 01/14/20 18:00 04/13/20 17:59 01/25/20 23:15 Loperamide HCl (Imodium) 2 mg Q4H PRN ORAL Diarrhea 01/19/20 16:00 02/16/20 10:29 Metoclopramide HCl (Reglan) 5 mg Q8H IVP 01/26/20 10:00 02/25/20 09:59 01/26/20 10:10 Ondansetron HCl (Zofran) 4 mg Q6H PRN IVP Nausea & Vomiting 01/26/20 09:15 02/25/20 09:14 Pantoprazole (Protonix) 40 mg DAILY IVP 01/20/20 09:00 02/19/20 08:59 01/26/20 09:22 Piperacillin Sod/ Tazobactam Sod 3.375 gm/Sodium Chloride 110 ml @ 27.5 mls/hr Q12H IVPB 01/25/20 18:00 02/01/20 17:59 01/26/20 05:04 Sodium Hypochlorite (Dakin's Half Strength) 1 applic DAILY TOPIC 01/15/20 09:00 02/14/20 08:59 01/26/20 09:24 Sodium Citrate (Bicitra) 30 ml EVERY 6 HOURS GT 01/20/20 18:00 02/19/20 17:59 01/26/20 11:48 Zinc Sulfate (Zinc Sulfate) 220 mg DAILY GT 01/15/20 09:00 04/14/20 08:59 01/26/20 09:22 Anastacio Bustillo MD Jan 26, 2020 13:28
--- NOTE | 2020-01-26 13:34 | Hematology/Onc Progress Note ---
Assessment/Plan Assessment/Plan Assessment and recs # Thrombocytopenia - potential causes multifactorial, evaluate liver and viral etiologies to begin, also could be related to underlying medications patient has received. May be due to DIC in this case, or consumption --> Hep panel and HIV negative --> US abd to evaluate for cirrhosis and hsm --> positive for mild hepatomegaly --> Peripheral smear ordered to evaluate for blasts /schistocytes --> abx and other meds have been reviewed --> ok for ppx if plt >50k w/ either heparin or lovenox --> Transfuse if Plt < 20k and fever, or if Plt < 10k without fever --> plt trend 41-->32-->21k-->20 -->61k-->45-->62-->51->38->55->50->70-->90--> 112 -->118 -->106-->109 # Anemia due to Upper GI bleed, hematuria --> no evidence of hemolysis is noted --> smear noted --> anemia panel reviewed, ferritin high --> po iron ok --> for hematuria as per urology --> Pending endoscopy when clear from covid19 --> hgb trend: 9.1 ->8.3->6.9-->8.1-->8.3-->7.6 -->6.6-->10.5-->9.8-->9.3->8.5-- >8.6 -->8.5-->8.3-->8 -->7.7 --> prbc: 2 units 01/02, 01/12 # Leukocytosis due to e/coli/kleb pna --> wbc trend 23-->32-->17.1-->13.9-->10-->15-->17.7-->21.8-->17-->20.2-->23 --> as per id recs --> on connor/wilma--> vanc-->zosyn # Hyperkalemia --> kayxelate as needed --> k trend # ARF (acute renal failure) --> per renal # Hyponatremia # Gram negative pneumonia # Ventilator dependent respiratory failure # intracranial hemorrhage # paraplegia # Dysphagia with gtube # Dvt ppx scds The timing of this note does not necessarily reflect the time of the patient was seen. Greatly appreciate consultation. Subjective Neurologic/Psychiatric: Denies: no symptoms, anxiety, depressed, emotional problems, headache, numbness, paresthesia, pre-existing deficit, seizure, tingling, tremors, weakness, other Endocrine: Denies: no symptoms, excessive sweating, flushing, intolerance to cold, intolerance to heat, increased hunger, increased thirst, increased urine, unexplained weight gain, unexplained weight loss, other Allergies: Coded Allergies: No Known Allergies (Unverified , 10/07/19) All Systems: reviewed and negative except above Subjective 01/03obtunded, s/p rbc x2, hgb improved to 9.1, us abd reviewed, hematuria+ 01/04 plt are better, got 1 unit pf platets today as well, plt now 61k, less gi bleed overnight, some black tarry stool noted 01/05 nv, labs noted, hgb 8.5, no hemolysis noted, no bleeding, plt 83, egd tomorrow 01/06 egd for this am, results are pending, labs noted 01/09 no major changes, labs noted, no bleeding wbc higher, on abx 01/10 sdu, wbc improving, inr 1.4, vent, h/h stable, no distress 01/11 hgb 7.6, no tx required, repeat cbc for tomorrow, on vent 01/12 remains on vent, hgb 6.6, getting 2 iunits prbc today, will need picc 01/13 trach to vent, nepro feeds ongoing, hgb improved 10.5 01/14 s/p egd w/ peg, rectal tube, no acute events, h/h stable 01/15 remains obtunded, minimal blood in stool, will hold off on platelet administration 01/16 labs noted, nob leeding, meds reviewed, plt higher 01/18 sdu, nonverbal, no acute events, vent, vanc 01/19 remains on vent, with po vanc, wbc higher as is plt 01/20 sdu, obtunded, blisters to groin/scrotum area, labs reviewed 01/21 ctap and us abd reviewed, mild hepatomegaly, hgb 8.5, inr 1.8 01/22 remains on zosyn at this time, no bleeding, hgb .3, wbc 17 01/23 wbc trending up, contact isolation, no acute events 01/25 remains obtunded, dw Rn, wbc 23, hgb 7.7, holding off transf Objective Objective Current Medications Medications (Trade) Dose Ordered Sig/[place] Route PRN Reason Start Time Stop Time Status Last Admin Dose Admin Al Hydroxide/Mg Hydroxide (Mylanta) 30 ml QIDPRN PRN GT stomach upset 01/14/20 16:45 02/13/20 16:44 Artificial Tears (Akwa-Tears) 1 drop EVERY 12 HOURS BOTH EYES 01/14/20 21:00 02/13/20 20:59 01/26/20 09:23 Dextrose (Dextrose 50%) 25 ml Q30M PRN IV Hypoglycemia 01/14/20 16:45 04/13/20 16:44 01/20/20 09:08 Dextrose (Dextrose 50%) 50 ml Q30M PRN IV hypoglycemia 01/14/20 16:45 04/13/20 16:44 01/14/20 21:25 Dextrose/ Electrolytes 1,000 ml @ 100 mls/hr Q10H IV 01/25/20 11:30 02/24/20 11:29 01/26/20 08:55 Diphenoxylate HCl/ Atropine (Lomotil) 2.5 mg Q4H PRN ORAL Diarrhea 01/22/20 12:00 02/21/20 11:59 Insulin Aspart (NovoLOG) No Dose Q6HR SUBQ 01/14/20 18:00 04/13/20 17:59 01/25/20 23:15 Loperamide HCl (Imodium) 2 mg Q4H PRN ORAL Diarrhea 01/19/20 16:00 02/16/20 10:29 Metoclopramide HCl (Reglan) 5 mg Q8H IVP 01/26/20 10:00 02/25/20 09:59 01/26/20 10:10 Ondansetron HCl (Zofran) 4 mg Q6H PRN IVP Nausea & Vomiting 01/26/20 09:15 02/25/20 09:14 Pantoprazole (Protonix) 40 mg DAILY IVP 01/20/20 09:00 02/19/20 08:59 01/26/20 09:22 Piperacillin Sod/ Tazobactam Sod 3.375 gm/Sodium Chloride 110 ml @ 27.5 mls/hr Q12H IVPB 01/25/20 18:00 02/01/20 17:59 01/26/20 05:04 Sodium Hypochlorite (Dakin's Half Strength) 1 applic DAILY TOPIC 01/15/20 09:00 02/14/20 08:59 01/26/20 09:24 Sodium Citrate (Bicitra) 30 ml EVERY 6 HOURS GT 01/20/20 18:00 02/19/20 17:59 01/26/20 11:48 Zinc Sulfate (Zinc Sulfate) 220 mg DAILY GT 01/15/20 09:00 04/14/20 08:59 01/26/20 09:22 Last 24 Hour Vital Signs Date Time Temp Pulse Resp B/P (MAP) Pulse Ox O2 Delivery O2 Flow Rate FiO2 01/26/20 12:57 62 24 30 01/26/20 12:00 30 01/26/20 12:00 Mechanical Ventilator 01/26/20 12:00 96.1 61 22 102/73 (83) 100 01/26/20 11:35 61 01/26/20 08:00 Mechanical Ventilator 01/26/20 08:00 30 01/26/20 08:00 96.3 60 18 110/63 (79) 100 01/26/20 07:55 61 01/26/20 07:39 62 24 30 01/26/20 04:00 97.9 72 20 125/64 (84) 100 01/26/20 04:00 Mechanical Ventilator 01/26/20 04:00 30 01/26/20 03:48 66 01/26/20 03:30 60 24 30 01/26/20 00:00 98.2 71 20 119/62 (81) 100 01/26/20 00:00 Mechanical Ventilator 01/25/20 23:47 38 01/25/20 23:34 68 01/25/20 23:09 70 26 30 01/25/20 20:00 30 01/25/20 20:00 Mechanical Ventilator 01/25/20 20:00 97.6 64 20 125/51 (75) 100 01/25/20 19:41 65 24 30 01/25/20 19:26 67 01/25/20 16:00 30 01/25/20 16:00 Mechanical Ventilator 01/25/20 16:00 68 01/25/20 16:00 97.0 70 20 104/65 (78) 100 01/25/20 15:16 57 29 30 01/25/20 12:00 30 01/25/20 12:00 96.4 68 19 137/50 (79) 100 01/25/20 12:00 68 01/25/20 12:00 Mechanical Ventilator 01/25/20 10:27 66 25 30 01/25/20 08:00 97.3 73 21 116/52 (73) 100 01/25/20 08:00 72 01/25/20 08:00 Mechanical Ventilator 01/25/20 08:00 30 01/25/20 07:10 74 28 30 01/25/20 04:26 76 26 30 01/25/20 04:00 Mechanical Ventilator 01/25/20 04:00 30 01/25/20 04:00 97.5 71 24 119/65 (83) 100 01/25/20 04:00 77 01/25/20 00:00 80 01/25/20 00:00 Mechanical Ventilator 01/25/20 00:00 98.1 79 24 127/71 (89) 100 01/25/20 00:00 30 01/24/20 23:30 83 24 30 01/24/20 20:05 78 24 30 01/24/20 20:00 97.7 78 28 129/75 (93) 99 01/24/20 20:00 71 01/24/20 20:00 Mechanical Ventilator 01/24/20 20:00 30 01/24/20 16:00 Mechanical Ventilator 01/24/20 16:00 30 01/24/20 16:00 98.1 80 34 126/61 (82) 99 01/24/20 15:30 78 14 30 01/24/20 15:26 79 Intake and Output 01/25/20 01/26/20 19:00 07:00 Intake Total 1544 ml 1148.834 ml Output Total 200 ml 500 ml Balance 1344 ml 648.834 ml Intake Free Water 200 ml 90 ml IV Total 900 ml 910.834 ml Tube Feeding 444 ml 148 ml Output Urine Total 200 ml 500 ml # Bowel Movements 2 4 Labs Test 01/24/20 05:00 01/25/20 06:30 01/25/20 09:30 01/26/20 10:40 White Blood Count 20.2 K/UL (4.8-10.8) 22.6 K/UL (4.8-10.8) 23.3 K/UL (4.8-10.8) Red Blood Count 2.77 M/UL (4.70-6.10) 2.76 M/UL (4.70-6.10) 2.77 M/UL (4.70-6.10) Hemoglobin 8.0 G/DL (14.2-18.0) 7.9 G/DL (14.2-18.0) 7.7 G/DL (14.2-18.0) Hematocrit 25.2 % (42.0-52.0) 25.4 % (42.0-52.0) 25.9 % (42.0-52.0) Mean Corpuscular Volume 91 FL (80-99) 92 FL (80-99) 94 FL (80-99) Mean Corpuscular Hemoglobin 28.9 PG (27.0-31.0) 28.6 PG (27.0-31.0) 28.0 PG (27.0-31.0) Mean Corpuscular Hemoglobin Concent 31.7 G/DL (32.0-36.0) 31.1 G/DL (32.0-36.0) 29.9 G/DL (32.0-36.0) Red Cell Distribution Width 17.3 % (11.6-14.8) 17.7 % (11.6-14.8) 19.8 % (11.6-14.8) Platelet Count 109 K/UL (150-450) 92 K/UL (150-450) 108 K/UL (150-450) Mean Platelet Volume 11.6 FL (6.5-10.1) 11.4 FL (6.5-10.1) 12.2 FL (6.5-10.1) Neutrophils (%) (Auto) % (45.0-75.0) % (45.0-75.0) % (45.0-75.0) Lymphocytes (%) (Auto) % (20.0-45.0) % (20.0-45.0) % (20.0-45.0) Monocytes (%) (Auto) % (1.0-10.0) % (1.0-10.0) % (1.0-10.0) Eosinophils (%) (Auto) % (0.0-3.0) % (0.0-3.0) % (0.0-3.0) Basophils (%) (Auto) % (0.0-2.0) % (0.0-2.0) % (0.0-2.0) Differential Total Cells Counted 100 100 100 Neutrophils % (Manual) 83 % (45-75) 85 % (45-75) 88 % (45-75) Lymphocytes % (Manual) 6 % (20-45) 6 % (20-45) 8 % (20-45) Monocytes % (Manual) 9 % (1-10) 6 % (1-10) 4 % (1-10) Eosinophils % (Manual) 2 % (0-3) 1 % (0-3) 0 % (0-3) Basophils % (Manual) 0 % (0-2) 0 % (0-2) 0 % (0-2) Band Neutrophils 0 % (0-8) 2 % (0-8) 0 % (0-8) Platelet Estimate Decreased Decreased Decreased Platelet Morphology Normal Normal Normal Hypochromasia 2+ 1+ 1+ Anisocytosis 1+ 1+ 1+ Sodium Level 148 MMOL/L (136-145) 151 MMOL/L (136-145) 149 MMOL/L (136-145) Potassium Level 3.7 MMOL/L (3.5-5.1) 3.4 MMOL/L (3.5-5.1) 3.4 MMOL/L (3.5-5.1) Chloride Level 116 MMOL/L (98-107) 117 MMOL/L (98-107) 117 MMOL/L (98-107) Carbon Dioxide Level 15 MMOL/L (21-32) 14 MMOL/L (21-32) 14 MMOL/L (21-32) Anion Gap 17 mmol/L (5-15) 20 mmol/L (5-15) 18 mmol/L (5-15) Blood Urea Nitrogen 96 mg/dL (7-18) 107 mg/dL (7-18) 118 mg/dL (7-18) Creatinine 4.2 MG/DL (0.55-1.30) 4.4 MG/DL (0.55-1.30) 4.4 MG/DL (0.55-1.30) Estimat Glomerular Filtration Rate 18.1 mL/min (>60) 17.1 mL/min (>60) 17.1 mL/min (>60) Glucose Level 92 MG/DL (74-106) 179 MG/DL (74-106) 139 MG/DL (74-106) Calcium Level 8.3 MG/DL (8.5-10.1) 8.8 MG/DL (8.5-10.1) 8.8 MG/DL (8.5-10.1) Total Bilirubin 2.0 MG/DL (0.2-1.0) 1.8 MG/DL (0.2-1.0) Direct Bilirubin 1.6 MG/DL (0.0-0.3) 1.4 MG/DL (0.0-0.3) Aspartate Amino Transf (AST/SGOT) 107 U/L (15-37) 195 U/L (15-37) Alanine Aminotransferase (ALT/SGPT) 126 U/L (12-78) 175 U/L (12-78) Alkaline Phosphatase 191 U/L (46-116) 175 U/L (46-116) Total Protein 5.1 G/DL (6.4-8.2) 5.2 G/DL (6.4-8.2) Albumin 0.5 G/DL (3.4-5.0) < 0.6 G/DL (3.4-5.0) Globulin 4.5 g/dL 4.8 g/dL Polychromasia 1+ Height (Feet): 5 Height (Inches): 5.00 Weight (Pounds): 182 Objective Physical Exam: Vitals: reviewed General: NAD ++obtunded HEENT: nc, at, mouth guard+ Neck: supple++trach Chest: clear breath sounds bilaterally Cardiovascular: RRR, no s3, s4 Abdomen/GI: soft, nontender, nd ++gtube, rectal tube+ Extremities: no cce, normal range of motion, ++ Spasticity in the left upper extremity. Flaccid on the right, scrotal blisters++ Neuro: nonfocal : skinny+ Wilmer Turner MD Jan 26, 2020 13:34
[2020-01-26 16:00] VITALS: BP 100/51
--- NOTE | 2020-01-26 17:14 | Pulmonology Progress Note ---
Subjective ROS Limited/Unobtainable: No Constitutional: Denies: fever Gastrointestinal/Abdominal: Reports: diarrhea Allergies: Coded Allergies: No Known Allergies (Unverified , 10/07/19) All Systems: reviewed and negative except above Objective Last 24 Hour Vital Signs Date Time Temp Pulse Resp B/P (MAP) Pulse Ox O2 Delivery O2 Flow Rate FiO2 01/26/20 16:00 Mechanical Ventilator 01/26/20 16:00 95.7 61 28 100/51 (67) 99 01/26/20 16:00 30 01/26/20 15:30 59 26 30 01/26/20 15:21 57 01/26/20 12:57 62 24 30 01/26/20 12:00 30 01/26/20 12:00 Mechanical Ventilator 01/26/20 12:00 96.1 61 22 102/73 (83) 100 01/26/20 11:35 61 01/26/20 08:00 Mechanical Ventilator 01/26/20 08:00 30 01/26/20 08:00 96.3 60 18 110/63 (79) 100 01/26/20 07:55 61 01/26/20 07:39 62 24 30 01/26/20 04:00 97.9 72 20 125/64 (84) 100 01/26/20 04:00 Mechanical Ventilator 01/26/20 04:00 30 01/26/20 03:48 66 01/26/20 03:30 60 24 30 01/26/20 00:00 98.2 71 20 119/62 (81) 100 01/26/20 00:00 Mechanical Ventilator 01/25/20 23:47 38 01/25/20 23:34 68 01/25/20 23:09 70 26 30 01/25/20 20:00 30 01/25/20 20:00 Mechanical Ventilator 01/25/20 20:00 97.6 64 20 125/51 (75) 100 01/25/20 19:41 65 24 30 01/25/20 19:26 67 Intake and Output 01/25/20 01/26/20 19:00 07:00 Intake Total 1544 ml 1148.834 ml Output Total 200 ml 500 ml Balance 1344 ml 648.834 ml Intake Free Water 200 ml 90 ml IV Total 900 ml 910.834 ml Tube Feeding 444 ml 148 ml Output Urine Total 200 ml 500 ml # Bowel Movements 2 4 Laboratory Tests 01/26/20 10:40: White Blood Count 23.3*H, Red Blood Count 2.77L, Hemoglobin 7.7L, Hematocrit 25.9L, Mean Corpuscular Volume 94, Mean Corpuscular Hemoglobin 28.0, Mean Corpuscular Hemoglobin Concent 29.9L, Red Cell Distribution Width 19.8H, Platelet Count 108L, Mean Platelet Volume 12.2H, Neutrophils (%) (Auto) , Lymphocytes (%) (Auto) , Monocytes (%) (Auto) , Eosinophils (%) (Auto) , Basophils (%) (Auto) , Differential Total Cells Counted 100, Neutrophils % ( Manual) 88H, Lymphocytes % (Manual) 8L, Monocytes % (Manual) 4, Eosinophils % ( Manual) 0, Basophils % (Manual) 0, Band Neutrophils 0, Platelet Estimate DecreasedL, Platelet Morphology Normal, Polychromasia 1+, Hypochromasia 1+, Anisocytosis 1+, Sodium Level 149H, Potassium Level 3.4L, Chloride Level 117H, Carbon Dioxide Level 14L, Anion Gap 18H, Blood Urea Nitrogen 118H, Creatinine 4.4H, Estimat Glomerular Filtration Rate 17.1, Glucose Level 139H, Calcium Level 8.8 Current Medications Medications (Trade) Dose Ordered Sig/[place] Route PRN Reason Start Time Stop Time Status Last Admin Dose Admin Al Hydroxide/Mg Hydroxide (Mylanta) 30 ml QIDPRN PRN GT stomach upset 01/14/20 16:45 02/13/20 16:44 Artificial Tears (Akwa-Tears) 1 drop EVERY 12 HOURS BOTH EYES 01/14/20 21:00 02/13/20 20:59 01/26/20 09:23 Dextrose (Dextrose 50%) 25 ml Q30M PRN IV Hypoglycemia 01/14/20 16:45 04/13/20 16:44 01/20/20 09:08 Dextrose (Dextrose 50%) 50 ml Q30M PRN IV hypoglycemia 01/14/20 16:45 04/13/20 16:44 01/14/20 21:25 Dextrose/ Electrolytes 1,000 ml @ 100 mls/hr Q10H IV 01/25/20 11:30 02/24/20 11:29 01/26/20 08:55 Diphenoxylate HCl/ Atropine (Lomotil) 2.5 mg Q4H PRN ORAL Diarrhea 01/22/20 12:00 02/21/20 11:59 Insulin Aspart (NovoLOG) No Dose Q6HR SUBQ 01/14/20 18:00 04/13/20 17:59 01/25/20 23:15 Loperamide HCl (Imodium) 2 mg Q4H PRN ORAL Diarrhea 01/19/20 16:00 02/16/20 10:29 Metoclopramide HCl (Reglan) 5 mg Q8H IVP 01/26/20 10:00 02/25/20 09:59 01/26/20 10:10 Ondansetron HCl (Zofran) 4 mg Q6H PRN IVP Nausea & Vomiting 01/26/20 09:15 02/25/20 09:14 Pantoprazole (Protonix) 40 mg DAILY IVP 01/20/20 09:00 02/19/20 08:59 01/26/20 09:22 Piperacillin Sod/ Tazobactam Sod 3.375 gm/Sodium Chloride 110 ml @ 27.5 mls/hr Q12H IVPB 01/25/20 18:00 02/01/20 17:59 01/26/20 05:04 Sodium Hypochlorite (Dakin's Half Strength) 1 applic DAILY TOPIC 01/15/20 09:00 02/14/20 08:59 01/26/20 09:24 Sodium Citrate (Bicitra) 30 ml EVERY 6 HOURS GT 01/20/20 18:00 02/19/20 17:59 01/26/20 11:48 Zinc Sulfate (Zinc Sulfate) 220 mg DAILY GT 01/15/20 09:00 04/14/20 08:59 01/26/20 09:22 Assessment/Plan Assessment/Plan Pulmonary Progress Note Subjective ROS Limited/Unobtainable: Yes Constitutional: no new complaints Allergies: No Known Allergies Subjective care noted on vent sp transfusion previously renal function impaired Objective Vital Signs noted Objective WDWN trach clear equal breath sounds bilaterally [id number] without MRG NABS nontender no HSM no CCE poor LOC reviewed and edited Laboratory Tests Noted Assessment/Plan IMPRESSION chronic respiratory failure Acute on chronic renal failure elevated K anemia GIB leukocytosis possible sepsis oral bleeding PLAN monitor HH- transfuse as needed monitor wbc IV hydration iv antibiotics ID , GI and renal vent as is monitor vitals hold feeds snf meds full code prognosis very poor for recovery difficult to optimize impression, plan, and exam edited and reviewed in detail care discussed with RN Jovi Dickey MD Jan 26, 2020 17:14
--- NOTE | 2020-01-26 17:22 | Nephrology Progress Note ---
Assessment/Plan Problem List: (1) Respiratory failure (2) ARF (acute renal failure) (3) Hyponatremia (4) Hyperkalemia (5) Upper GI bleed (6) Pressure sore on sacrum (7) Diarrhea (8) Severe malnutrition Plan diarrhea, reorder iv fluids,BUN/creatinine 70/.91 11/2019, enteral hydration , reji likely from infection, severe hypoalbuminemia and anasarca with poor prognosis Na higher iv adjusted, bicitra started for acidosis, emesis today Subjective ROS Limited/Unobtainable: Yes Objective Objective Last 24 Hour Vital Signs Date Time Temp Pulse Resp B/P (MAP) Pulse Ox O2 Delivery O2 Flow Rate FiO2 01/26/20 16:00 Mechanical Ventilator 01/26/20 16:00 95.7 61 28 100/51 (67) 99 01/26/20 16:00 30 01/26/20 15:30 59 26 30 01/26/20 15:21 57 01/26/20 12:57 62 24 30 01/26/20 12:00 30 01/26/20 12:00 Mechanical Ventilator 01/26/20 12:00 96.1 61 22 102/73 (83) 100 01/26/20 11:35 61 01/26/20 08:00 Mechanical Ventilator 01/26/20 08:00 30 01/26/20 08:00 96.3 60 18 110/63 (79) 100 01/26/20 07:55 61 01/26/20 07:39 62 24 30 01/26/20 04:00 97.9 72 20 125/64 (84) 100 01/26/20 04:00 Mechanical Ventilator 01/26/20 04:00 30 01/26/20 03:48 66 01/26/20 03:30 60 24 30 01/26/20 00:00 98.2 71 20 119/62 (81) 100 01/26/20 00:00 Mechanical Ventilator 01/25/20 23:47 38 01/25/20 23:34 68 01/25/20 23:09 70 26 30 01/25/20 20:00 30 01/25/20 20:00 Mechanical Ventilator 01/25/20 20:00 97.6 64 20 125/51 (75) 100 01/25/20 19:41 65 24 30 01/25/20 19:26 67 Intake and Output 01/25/20 01/26/20 19:00 07:00 Intake Total 1544 ml 1148.834 ml Output Total 200 ml 500 ml Balance 1344 ml 648.834 ml Intake Free Water 200 ml 90 ml IV Total 900 ml 910.834 ml Tube Feeding 444 ml 148 ml Output Urine Total 200 ml 500 ml # Bowel Movements 2 4 Laboratory Tests 01/26/20 10:40: White Blood Count 23.3*H, Red Blood Count 2.77L, Hemoglobin 7.7L, Hematocrit 25.9L, Mean Corpuscular Volume 94, Mean Corpuscular Hemoglobin 28.0, Mean Corpuscular Hemoglobin Concent 29.9L, Red Cell Distribution Width 19.8H, Platelet Count 108L, Mean Platelet Volume 12.2H, Neutrophils (%) (Auto) , Lymphocytes (%) (Auto) , Monocytes (%) (Auto) , Eosinophils (%) (Auto) , Basophils (%) (Auto) , Differential Total Cells Counted 100, Neutrophils % ( Manual) 88H, Lymphocytes % (Manual) 8L, Monocytes % (Manual) 4, Eosinophils % ( Manual) 0, Basophils % (Manual) 0, Band Neutrophils 0, Platelet Estimate DecreasedL, Platelet Morphology Normal, Polychromasia 1+, Hypochromasia 1+, Anisocytosis 1+, Sodium Level 149H, Potassium Level 3.4L, Chloride Level 117H, Carbon Dioxide Level 14L, Anion Gap 18H, Blood Urea Nitrogen 118H, Creatinine 4.4H, Estimat Glomerular Filtration Rate 17.1, Glucose Level 139H, Calcium Level 8.8 Height (Feet): 5 Height (Inches): 5.00 Weight (Pounds): 182 General Appearance: lethargic, other - on vent Cardiovascular: regular rhythm Respiratory/Chest: rhonchi - bilaterally Abdomen: soft Extremities: moderate edema Neurologic: unresponsive Martin Yee MD Jan 26, 2020 17:22
[2020-01-26] MEDS ORDERED: NS 275ml ONE ×2 (17:51)
[2020-01-26] MEDS ORDERED: Tubing IV Secondary IV ONE (17:51)
[2020-01-26 20:00] VITALS: BP 100/60
[2020-01-27] VITALS: BP 120/73
[2020-01-27] MEDS: Metoclopramide 10mg/2ml Inj IVP SCH ×3 (01:47→18:01)
[2020-01-27] MEDS: D5W w/KCl 20mEq 1,000 ML IV SCH ×3 (01:47→14:54)
[2020-01-27 04:00] VITALS: BP 112/65
[2020-01-27] MEDS: Insulin NovoLOG Flexpen S/S (Mod) SUBQ SCH ×3 (05:09→17:10)
[2020-01-27] MEDS: Sodium Citrate 30ml GT SCH ×3 (05:12→18:00)
[2020-01-27] MEDS: Piperacillin/Tazobactam 3.375 GM in NS 110 ML IVPB SCH ×2 (05:13→18:00)
[2020-01-27 08:00] VITALS: BP 122/64
--- NOTE | 2020-01-27 08:24 | Pulmonology Progress Note ---
Subjective ROS Limited/Unobtainable: Yes Constitutional: Denies: fever Gastrointestinal/Abdominal: Reports: diarrhea Allergies: Coded Allergies: No Known Allergies (Unverified , 10/07/19) All Systems: reviewed and negative except above Subjective care noted on vent no significant improvement renal function poor wbc noted labs noted Objective Last 24 Hour Vital Signs Date Time Temp Pulse Resp B/P (MAP) Pulse Ox O2 Delivery O2 Flow Rate FiO2 01/27/20 04:00 Mechanical Ventilator 01/27/20 04:00 71 01/27/20 04:00 30 01/27/20 04:00 97.0 71 25 112/65 (81) 99 01/27/20 02:53 65 24 30 01/27/20 00:00 30 01/27/20 00:00 97.2 60 26 120/73 (89) 99 01/27/20 00:00 62 01/27/20 00:00 Mechanical Ventilator 01/26/20 22:39 56 28 30 01/26/20 20:00 30 01/26/20 20:00 Mechanical Ventilator 01/26/20 20:00 97.6 61 28 100/60 (73) 100 01/26/20 19:34 63 28 30 01/26/20 19:25 58 01/26/20 16:00 Mechanical Ventilator 01/26/20 16:00 95.7 61 28 100/51 (67) 99 01/26/20 16:00 30 01/26/20 15:30 59 26 30 01/26/20 15:21 57 01/26/20 12:57 62 24 30 01/26/20 12:00 30 01/26/20 12:00 Mechanical Ventilator 01/26/20 12:00 96.1 61 22 102/73 (83) 100 01/26/20 11:35 61 Intake and Output 01/26/20 01/27/20 19:00 07:00 Intake Total 935.0 ml 537.5 ml Output Total 200 ml 600 ml Balance 735.0 ml -62.5 ml Intake Free Water 100 ml IV Total 835.0 ml 527.5 ml Tube Feeding 10 ml Output Urine Total 200 ml 600 ml # Bowel Movements 2 Objective WDWN trach clear breath sounds bilaterally without rhonchi or wheeze [id number] without MRG NABS nontender no HSM no CCE poor LOC reviewed and edited Laboratory Tests 01/26/20 10:40: White Blood Count 23.3*H, Red Blood Count 2.77L, Hemoglobin 7.7L, Hematocrit 25.9L, Mean Corpuscular Volume 94, Mean Corpuscular Hemoglobin 28.0, Mean Corpuscular Hemoglobin Concent 29.9L, Red Cell Distribution Width 19.8H, Platelet Count 108L, Mean Platelet Volume 12.2H, Neutrophils (%) (Auto) , Lymphocytes (%) (Auto) , Monocytes (%) (Auto) , Eosinophils (%) (Auto) , Basophils (%) (Auto) , Differential Total Cells Counted 100, Neutrophils % ( Manual) 88H, Lymphocytes % (Manual) 8L, Monocytes % (Manual) 4, Eosinophils % ( Manual) 0, Basophils % (Manual) 0, Band Neutrophils 0, Platelet Estimate DecreasedL, Platelet Morphology Normal, Polychromasia 1+, Hypochromasia 1+, Anisocytosis 1+, Sodium Level 149H, Potassium Level 3.4L, Chloride Level 117H, Carbon Dioxide Level 14L, Anion Gap 18H, Blood Urea Nitrogen 118H, Creatinine 4.4H, Estimat Glomerular Filtration Rate 17.1, Glucose Level 139H, Calcium Level 8.8 Current Medications Medications (Trade) Dose Ordered Sig/[place] Route PRN Reason Start Time Stop Time Status Last Admin Dose Admin Al Hydroxide/Mg Hydroxide (Mylanta) 30 ml QIDPRN PRN GT stomach upset 01/14/20 16:45 02/13/20 16:44 Artificial Tears (Akwa-Tears) 1 drop EVERY 12 HOURS BOTH EYES 01/14/20 21:00 02/13/20 20:59 01/26/20 20:50 Dextrose (Dextrose 50%) 25 ml Q30M PRN IV Hypoglycemia 01/14/20 16:45 04/13/20 16:44 01/20/20 09:08 Dextrose (Dextrose 50%) 50 ml Q30M PRN IV hypoglycemia 01/14/20 16:45 04/13/20 16:44 01/14/20 21:25 Dextrose/ Electrolytes 1,000 ml @ 125 mls/hr Q8H IV 01/26/20 18:30 02/25/20 18:29 01/27/20 01:47 Diphenoxylate HCl/ Atropine (Lomotil) 2.5 mg Q4H PRN ORAL Diarrhea 01/22/20 12:00 02/21/20 11:59 Insulin Aspart (NovoLOG) No Dose Q6HR SUBQ 01/14/20 18:00 04/13/20 17:59 01/25/20 23:15 Loperamide HCl (Imodium) 2 mg Q4H PRN ORAL Diarrhea 01/19/20 16:00 02/16/20 10:29 Metoclopramide HCl (Reglan) 5 mg Q8H IVP 01/26/20 10:00 02/25/20 09:59 01/27/20 01:47 Ondansetron HCl (Zofran) 4 mg Q6H PRN IVP Nausea & Vomiting 01/26/20 09:15 02/25/20 09:14 Pantoprazole (Protonix) 40 mg DAILY IVP 01/20/20 09:00 02/19/20 08:59 01/26/20 09:22 Piperacillin Sod/ Tazobactam Sod 3.375 gm/Sodium Chloride 110 ml @ 27.5 mls/hr Q12H IVPB 01/25/20 18:00 02/01/20 17:59 01/27/20 05:13 Sodium Hypochlorite (Dakin's Half Strength) 1 applic DAILY TOPIC 01/15/20 09:00 02/14/20 08:59 01/26/20 09:24 Sodium Citrate (Bicitra) 30 ml EVERY 6 HOURS GT 01/20/20 18:00 02/19/20 17:59 01/27/20 05:12 Zinc Sulfate (Zinc Sulfate) 220 mg DAILY GT 01/15/20 09:00 04/14/20 08:59 01/26/20 09:22 Assessment/Plan Assessment/Plan IMPRESSION chronic respiratory failure Acute on chronic renal failure elevated K anemia GIB leukocytosis possible sepsis oral bleeding diarrhea transaminitis PLAN ID , GI and renal clearance vent as is monitor vitals now again with worsening wbc snf meds full code prognosis very poor for recovery consider dc to snf when labs improved impression, plan, and exam edited and reviewed in detail care discussed with Lorenzo Chase MD Jan 27, 2020 08:24
--- NOTE | 2020-01-27 08:25 | Diagnostic Imaging Report ---
Procedure: XRAY Chest 1v Reason for study: Reason For Exam: INFECT Comparison films: 12/30/2019. FINDINGS: Tracheostomy remains in place. There is worsening of vascular congestion and bilateral hazy interstitial and alveolar densities likely worsening edema. Cardiac and mediastinal silhouette are within normal limits. Bilateral effusions unchanged. The bony thorax appear unremarkable. IMPRESSION: Worsening of congestion and edema.
--- NOTE | 2020-01-27 09:20 | General Progress Note ---
Assessment/Plan Assessment/Plan: sepsis anemia GIB thrombocytopenia hyponatremia ARF DM dysphagia with GT s/p EGD/PEG GTF will resume lomotil prn imodium prn ppi elevated LFTS>>> stable us reviewed fu abd CT, reviewed protonix daily will fu Subjective ROS Limited/Unobtainable: No Allergies: Coded Allergies: No Known Allergies (Unverified , 10/07/19) Objective Last 24 Hour Vital Signs Date Time Temp Pulse Resp B/P (MAP) Pulse Ox O2 Delivery O2 Flow Rate FiO2 01/27/20 07:20 71 28 30 01/27/20 04:00 Mechanical Ventilator 01/27/20 04:00 71 01/27/20 04:00 30 01/27/20 04:00 97.0 71 25 112/65 (81) 99 01/27/20 02:53 65 24 30 01/27/20 00:00 30 01/27/20 00:00 97.2 60 26 120/73 (89) 99 01/27/20 00:00 62 01/27/20 00:00 Mechanical Ventilator 01/26/20 22:39 56 28 30 01/26/20 20:00 30 01/26/20 20:00 Mechanical Ventilator 01/26/20 20:00 97.6 61 28 100/60 (73) 100 01/26/20 19:34 63 28 30 01/26/20 19:25 58 01/26/20 16:00 Mechanical Ventilator 01/26/20 16:00 95.7 61 28 100/51 (67) 99 01/26/20 16:00 30 01/26/20 15:30 59 26 30 01/26/20 15:21 57 01/26/20 12:57 62 24 30 01/26/20 12:00 30 01/26/20 12:00 Mechanical Ventilator 01/26/20 12:00 96.1 61 22 102/73 (83) 100 01/26/20 11:35 61 Intake and Output 01/26/20 01/27/20 19:00 07:00 Intake Total 935.0 ml 537.5 ml Output Total 200 ml 600 ml Balance 735.0 ml -62.5 ml Intake Free Water 100 ml IV Total 835.0 ml 527.5 ml Tube Feeding 10 ml Output Urine Total 200 ml 600 ml # Bowel Movements 2 Laboratory Tests 01/26/20 10:40: White Blood Count 23.3*H, Red Blood Count 2.77L, Hemoglobin 7.7L, Hematocrit 25.9L, Mean Corpuscular Volume 94, Mean Corpuscular Hemoglobin 28.0, Mean Corpuscular Hemoglobin Concent 29.9L, Red Cell Distribution Width 19.8H, Platelet Count 108L, Mean Platelet Volume 12.2H, Neutrophils (%) (Auto) , Lymphocytes (%) (Auto) , Monocytes (%) (Auto) , Eosinophils (%) (Auto) , Basophils (%) (Auto) , Differential Total Cells Counted 100, Neutrophils % ( Manual) 88H, Lymphocytes % (Manual) 8L, Monocytes % (Manual) 4, Eosinophils % ( Manual) 0, Basophils % (Manual) 0, Band Neutrophils 0, Platelet Estimate DecreasedL, Platelet Morphology Normal, Polychromasia 1+, Hypochromasia 1+, Anisocytosis 1+, Sodium Level 149H, Potassium Level 3.4L, Chloride Level 117H, Carbon Dioxide Level 14L, Anion Gap 18H, Blood Urea Nitrogen 118H, Creatinine 4.4H, Estimat Glomerular Filtration Rate 17.1, Glucose Level 139H, Calcium Level 8.8 Height (Feet): 5 Height (Inches): 5.00 Weight (Pounds): 180 EENT: normal ENT inspection Neck: supple Cardiovascular: normal rate Respiratory/Chest: decreased breath sounds Abdomen: normal bowel sounds, non tender, soft Extremities: non-tender Toni Mckenzie MD Jan 27, 2020 09:20
[2020-01-27] MEDS: Zinc Sulfate 220mg GT SCH (09:27)
[2020-01-27] MEDS: Pantoprazole Inj IVP SCH (09:27)
[2020-01-27] MEDS: Dakin's 0.25% (Half Strength) 16oz TOPIC SCH (09:27)
--- NOTE | 2020-01-27 10:15 | Hematology/Onc Progress Note ---
Assessment/Plan Assessment/Plan Assessment and recs # Thrombocytopenia - potential causes multifactorial, evaluate liver and viral etiologies to begin, also could be related to underlying medications patient has received. May be due to DIC in this case, or consumption --> Hep panel and HIV negative --> US abd to evaluate for cirrhosis and hsm --> positive for mild hepatomegaly --> Peripheral smear ordered to evaluate for blasts /schistocytes --> abx and other meds have been reviewed --> ok for ppx if plt >50k w/ either heparin or lovenox --> Transfuse if Plt < 20k and fever, or if Plt < 10k without fever --> plt trend 41-->32-->21k-->20 -->61k-->45-->62-->51->38->55->50->70-->90--> 112 -->118 -->106-->109 # Anemia due to Upper GI bleed, hematuria --> no evidence of hemolysis is noted --> smear noted --> anemia panel reviewed, ferritin high --> po iron ok --> for hematuria as per urology --> Pending endoscopy when clear from covid19 --> hgb trend: 9.1 ->8.3->6.9-->8.1-->8.3-->7.6 -->6.6-->10.5-->9.8-->9.3->8.5-- >8.6 -->8.5-->8.3-->8 -->7.7 --> prbc: 2 units 01/02, 01/12 # Leukocytosis due to e/coli/kleb pna --> wbc trend 23-->32-->17.1-->13.9-->10-->15-->17.7-->21.8-->17-->20.2-->23 --> as per id recs --> on connor/wilma--> vanc-->zosyn # Hyperkalemia --> kayxelate as needed --> k trend # ARF (acute renal failure) --> per renal # Hyponatremia # Gram negative pneumonia # Ventilator dependent respiratory failure # intracranial hemorrhage # paraplegia # Dysphagia with gtube # Dvt ppx scds The timing of this note does not necessarily reflect the time of the patient was seen. Greatly appreciate consultation. Subjective Allergies: Coded Allergies: No Known Allergies (Unverified , 10/07/19) All Systems: reviewed and negative except above Subjective 01/03obtunded, s/p rbc x2, hgb improved to 9.1, us abd reviewed, hematuria+ 01/04 plt are better, got 1 unit pf platets today as well, plt now 61k, less gi bleed overnight, some black tarry stool noted 01/05 nv, labs noted, hgb 8.5, no hemolysis noted, no bleeding, plt 83, egd tomorrow 01/06 egd for this am, results are pending, labs noted 01/09 no major changes, labs noted, no bleeding wbc higher, on abx 01/10 sdu, wbc improving, inr 1.4, vent, h/h stable, no distress 01/11 hgb 7.6, no tx required, repeat cbc for tomorrow, on vent 01/12 remains on vent, hgb 6.6, getting 2 iunits prbc today, will need picc 01/13 trach to vent, nepro feeds ongoing, hgb improved 10.5 01/14 s/p egd w/ peg, rectal tube, no acute events, h/h stable 01/15 remains obtunded, minimal blood in stool, will hold off on platelet administration 01/16 labs noted, nob leeding, meds reviewed, plt higher 01/18 sdu, nonverbal, no acute events, vent, vanc 01/19 remains on vent, with po vanc, wbc higher as is plt 01/20 sdu, obtunded, blisters to groin/scrotum area, labs reviewed 01/21 ctap and us abd reviewed, mild hepatomegaly, hgb 8.5, inr 1.8 01/22 remains on zosyn at this time, no bleeding, hgb .3, wbc 17 01/23 wbc trending up, contact isolation, no acute events 01/25 remains obtunded, dw Rn, wbc 23, hgb 7.7, holding off transf 01/26 labs reviewed, no bleeding, hgb 7.7, yesterday, wit gtube feeds Objective Objective Current Medications Medications (Trade) Dose Ordered Sig/[place] Route PRN Reason Start Time Stop Time Status Last Admin Dose Admin Al Hydroxide/Mg Hydroxide (Mylanta) 30 ml QIDPRN PRN GT stomach upset 01/14/20 16:45 02/13/20 16:44 Artificial Tears (Akwa-Tears) 1 drop EVERY 12 HOURS BOTH EYES 01/14/20 21:00 02/13/20 20:59 01/27/20 09:27 Dextrose (Dextrose 50%) 25 ml Q30M PRN IV Hypoglycemia 01/14/20 16:45 04/13/20 16:44 01/20/20 09:08 Dextrose (Dextrose 50%) 50 ml Q30M PRN IV hypoglycemia 01/14/20 16:45 04/13/20 16:44 01/14/20 21:25 Dextrose/ Electrolytes 1,000 ml @ 125 mls/hr Q8H IV 01/26/20 18:30 02/25/20 18:29 01/27/20 01:47 Diphenoxylate HCl/ Atropine (Lomotil) 2.5 mg Q4H PRN ORAL Diarrhea 01/22/20 12:00 02/21/20 11:59 Insulin Aspart (NovoLOG) No Dose Q6HR SUBQ 01/14/20 18:00 04/13/20 17:59 01/25/20 23:15 Loperamide HCl (Imodium) 2 mg Q4H PRN ORAL Diarrhea 01/19/20 16:00 02/16/20 10:29 Metoclopramide HCl (Reglan) 5 mg Q8H IVP 01/26/20 10:00 02/25/20 09:59 01/27/20 09:27 Ondansetron HCl (Zofran) 4 mg Q6H PRN IVP Nausea & Vomiting 01/26/20 09:15 02/25/20 09:14 Pantoprazole (Protonix) 40 mg DAILY IVP 01/20/20 09:00 02/19/20 08:59 01/27/20 09:27 Piperacillin Sod/ Tazobactam Sod 3.375 gm/Sodium Chloride 110 ml @ 27.5 mls/hr Q12H IVPB 01/25/20 18:00 02/01/20 17:59 01/27/20 05:13 Sodium Hypochlorite (Dakin's Half Strength) 1 applic DAILY TOPIC 01/15/20 09:00 02/14/20 08:59 01/27/20 09:27 Sodium Citrate (Bicitra) 30 ml EVERY 6 HOURS GT 01/20/20 18:00 02/19/20 17:59 01/27/20 05:12 Zinc Sulfate (Zinc Sulfate) 220 mg DAILY GT 01/15/20 09:00 04/14/20 08:59 01/27/20 09:27 Last 24 Hour Vital Signs Date Time Temp Pulse Resp B/P (MAP) Pulse Ox O2 Delivery O2 Flow Rate FiO2 01/27/20 08:00 98.2 72 29 122/64 (83) 100 01/27/20 08:00 30 01/27/20 07:20 71 28 30 01/27/20 04:00 Mechanical Ventilator 01/27/20 04:00 71 01/27/20 04:00 30 01/27/20 04:00 97.0 71 25 112/65 (81) 99 01/27/20 02:53 65 24 30 01/27/20 00:00 30 01/27/20 00:00 97.2 60 26 120/73 (89) 99 01/27/20 00:00 62 01/27/20 00:00 Mechanical Ventilator 01/26/20 22:39 56 28 30 01/26/20 20:00 30 01/26/20 20:00 Mechanical Ventilator 01/26/20 20:00 97.6 61 28 100/60 (73) 100 01/26/20 19:34 63 28 30 01/26/20 19:25 58 01/26/20 16:00 Mechanical Ventilator 01/26/20 16:00 95.7 61 28 100/51 (67) 99 01/26/20 16:00 30 01/26/20 15:30 59 26 30 01/26/20 15:21 57 01/26/20 12:57 62 24 30 01/26/20 12:00 30 01/26/20 12:00 Mechanical Ventilator 01/26/20 12:00 96.1 61 22 102/73 (83) 100 01/26/20 11:35 61 01/26/20 08:00 Mechanical Ventilator 01/26/20 08:00 30 01/26/20 08:00 96.3 60 18 110/63 (79) 100 01/26/20 07:55 61 01/26/20 07:39 62 24 30 01/26/20 04:00 97.9 72 20 125/64 (84) 100 01/26/20 04:00 Mechanical Ventilator 01/26/20 04:00 30 01/26/20 03:48 66 01/26/20 03:30 60 24 30 01/26/20 00:00 98.2 71 20 119/62 (81) 100 01/26/20 00:00 Mechanical Ventilator 01/25/20 23:47 38 01/25/20 23:34 68 01/25/20 23:09 70 26 30 01/25/20 20:00 30 01/25/20 20:00 Mechanical Ventilator 01/25/20 20:00 97.6 64 20 125/51 (75) 100 01/25/20 19:41 65 24 30 01/25/20 19:26 67 01/25/20 16:00 30 01/25/20 16:00 Mechanical Ventilator 01/25/20 16:00 68 01/25/20 16:00 97.0 70 20 104/65 (78) 100 01/25/20 15:16 57 29 30 01/25/20 12:00 30 01/25/20 12:00 96.4 68 19 137/50 (79) 100 01/25/20 12:00 68 01/25/20 12:00 Mechanical Ventilator 01/25/20 10:27 66 25 30 Intake and Output 01/26/20 01/27/20 19:00 07:00 Intake Total 935.0 ml 537.5 ml Output Total 200 ml 600 ml Balance 735.0 ml -62.5 ml Intake Free Water 100 ml IV Total 835.0 ml 527.5 ml Tube Feeding 10 ml Output Urine Total 200 ml 600 ml # Bowel Movements 2 Labs Test 01/25/20 06:30 01/25/20 09:30 01/26/20 10:40 Sodium Level 151 MMOL/L (136-145) 149 MMOL/L (136-145) Potassium Level 3.4 MMOL/L (3.5-5.1) 3.4 MMOL/L (3.5-5.1) Chloride Level 117 MMOL/L (98-107) 117 MMOL/L (98-107) Carbon Dioxide Level 14 MMOL/L (21-32) 14 MMOL/L (21-32) Anion Gap 20 mmol/L (5-15) 18 mmol/L (5-15) Blood Urea Nitrogen 107 mg/dL (7-18) 118 mg/dL (7-18) Creatinine 4.4 MG/DL (0.55-1.30) 4.4 MG/DL (0.55-1.30) Estimat Glomerular Filtration Rate 17.1 mL/min (>60) 17.1 mL/min (>60) Glucose Level 179 MG/DL (74-106) 139 MG/DL (74-106) Calcium Level 8.8 MG/DL (8.5-10.1) 8.8 MG/DL (8.5-10.1) Total Bilirubin 1.8 MG/DL (0.2-1.0) Direct Bilirubin 1.4 MG/DL (0.0-0.3) Aspartate Amino Transf (AST/SGOT) 195 U/L (15-37) Alanine Aminotransferase (ALT/SGPT) 175 U/L (12-78) Alkaline Phosphatase 175 U/L (46-116) Total Protein 5.2 G/DL (6.4-8.2) Albumin < 0.6 G/DL (3.4-5.0) Globulin 4.8 g/dL White Blood Count 22.6 K/UL (4.8-10.8) 23.3 K/UL (4.8-10.8) Red Blood Count 2.76 M/UL (4.70-6.10) 2.77 M/UL (4.70-6.10) Hemoglobin 7.9 G/DL (14.2-18.0) 7.7 G/DL (14.2-18.0) Hematocrit 25.4 % (42.0-52.0) 25.9 % (42.0-52.0) Mean Corpuscular Volume 92 FL (80-99) 94 FL (80-99) Mean Corpuscular Hemoglobin 28.6 PG (27.0-31.0) 28.0 PG (27.0-31.0) Mean Corpuscular Hemoglobin Concent 31.1 G/DL (32.0-36.0) 29.9 G/DL (32.0-36.0) Red Cell Distribution Width 17.7 % (11.6-14.8) 19.8 % (11.6-14.8) Platelet Count 92 K/UL (150-450) 108 K/UL (150-450) Mean Platelet Volume 11.4 FL (6.5-10.1) 12.2 FL (6.5-10.1) Neutrophils (%) (Auto) % (45.0-75.0) % (45.0-75.0) Lymphocytes (%) (Auto) % (20.0-45.0) % (20.0-45.0) Monocytes (%) (Auto) % (1.0-10.0) % (1.0-10.0) Eosinophils (%) (Auto) % (0.0-3.0) % (0.0-3.0) Basophils (%) (Auto) % (0.0-2.0) % (0.0-2.0) Differential Total Cells Counted 100 100 Neutrophils % (Manual) 85 % (45-75) 88 % (45-75) Lymphocytes % (Manual) 6 % (20-45) 8 % (20-45) Monocytes % (Manual) 6 % (1-10) 4 % (1-10) Eosinophils % (Manual) 1 % (0-3) 0 % (0-3) Basophils % (Manual) 0 % (0-2) 0 % (0-2) Band Neutrophils 2 % (0-8) 0 % (0-8) Platelet Estimate Decreased Decreased Platelet Morphology Normal Normal Hypochromasia 1+ 1+ Anisocytosis 1+ 1+ Polychromasia 1+ Height (Feet): 5 Height (Inches): 5.00 Weight (Pounds): 180 Objective Physical Exam: Vitals: reviewed General: NAD ++obtunded HEENT: nc, at, mouth guard+ Neck: supple++trach Chest: clear breath sounds bilaterally Cardiovascular: RRR, no s3, s4 Abdomen/GI: soft, nontender, nd ++gtube, rectal tube+ Extremities: no cce, normal range of motion, ++ Spasticity in the left upper extremity. Flaccid on the right, scrotal blisters++ Neuro: nonfocal : skinny+ Wilmer Turner MD Jan 27, 2020 10:15
[2020-01-27 11:01] LABS: HEMOGLOBIN 9.6 G/DL (14.2-18.0); MEAN CORPUSCULAR VOLUME 94 FL (80-99); PLATELET COUNT 130 K/UL (150-450); RED BLOOD COUNT 3.31 M/UL (4.70-6.10); RED CELL DISTRIBUTION WIDTH 18.2 % (11.6-14.8); WHITE BLOOD COUNT 20.3 K/UL (4.8-10.8)
[2020-01-27 11:17] LABS: ANION GAP 18 mmol/L (5-15); BLOOD UREA NITROGEN 115 mg/dL (7-18); CALCIUM 8.8 MG/DL (8.5-10.1); CARBON DIOXIDE 14 MMOL/L (21-32); CHLORIDE 116 MMOL/L (98-107); CREATININE 4.4 MG/DL (0.55-1.30); POTASSIUM 3.9 MMOL/L (3.5-5.1); SODIUM 148 MMOL/L (136-145)
--- NOTE | 2020-01-27 11:27 | Infectious Diseases Prog Note ---
Assessment/Plan Assessment/Plan antibiotics : zosyn A 1. providencia, klebsiella, e.coli pneumonia 2. renal failure 3. respiratory failure 4. intracranial hemorrhage 5. paraplegia 6. leucocytosis increased 7. COVID 19 test negative x 2 8. gangrene of feet bilaterally P 1. continue zosyn 3 more days 2. will follow up cultures Subjective ROS Limited/Unobtainable: Yes Allergies: Coded Allergies: No Known Allergies (Unverified , 10/07/19) Objective Vital Signs Last 24 Hour Vital Signs Date Time Temp Pulse Resp B/P (MAP) Pulse Ox O2 Delivery O2 Flow Rate FiO2 01/27/20 08:00 Mechanical Ventilator 01/27/20 08:00 66 01/27/20 08:00 98.2 72 29 122/64 (83) 100 01/27/20 08:00 30 01/27/20 07:20 71 28 30 01/27/20 04:00 Mechanical Ventilator 01/27/20 04:00 71 01/27/20 04:00 30 01/27/20 04:00 97.0 71 25 112/65 (81) 99 01/27/20 02:53 65 24 30 01/27/20 00:00 30 01/27/20 00:00 97.2 60 26 120/73 (89) 99 01/27/20 00:00 62 01/27/20 00:00 Mechanical Ventilator 01/26/20 22:39 56 28 30 01/26/20 20:00 30 01/26/20 20:00 Mechanical Ventilator 01/26/20 20:00 97.6 61 28 100/60 (73) 100 01/26/20 19:34 63 28 30 01/26/20 19:25 58 01/26/20 16:00 Mechanical Ventilator 01/26/20 16:00 95.7 61 28 100/51 (67) 99 01/26/20 16:00 30 01/26/20 15:30 59 26 30 01/26/20 15:21 57 01/26/20 12:57 62 24 30 01/26/20 12:00 30 01/26/20 12:00 Mechanical Ventilator 01/26/20 12:00 96.1 61 22 102/73 (83) 100 01/26/20 11:35 61 Height (Feet): 5 Height (Inches): 5.00 Weight (Pounds): 180 HEENT: status post trach Respiratory/Chest: lungs clear Cardiovascular: normal rate, regular rhythm, no gallop/murmur Abdomen: soft, non tender, other - GT Extremities: other - + edema, necrotic feet bilaterally Laboratory Tests Test 01/27/20 10:25 White Blood Count 20.3 K/UL (4.8-10.8) H Red Blood Count 3.31 M/UL (4.70-6.10) L Hemoglobin 9.6 G/DL (14.2-18.0) L Hematocrit 31.0 % (42.0-52.0) L Mean Corpuscular Volume 94 FL (80-99) Mean Corpuscular Hemoglobin 29.1 PG (27.0-31.0) Mean Corpuscular Hemoglobin Concent 31.1 G/DL (32.0-36.0) L Red Cell Distribution Width 18.2 % (11.6-14.8) H Platelet Count 130 K/UL (150-450) L Mean Platelet Volume 13.0 FL (6.5-10.1) H Neutrophils (%) (Auto) % (45.0-75.0) Lymphocytes (%) (Auto) % (20.0-45.0) Monocytes (%) (Auto) % (1.0-10.0) Eosinophils (%) (Auto) % (0.0-3.0) Basophils (%) (Auto) % (0.0-2.0) Neutrophils % (Manual) Pending Lymphocytes % (Manual) Pending Platelet Estimate Pending Platelet Morphology Pending Sodium Level 148 MMOL/L (136-145) H Potassium Level 3.9 MMOL/L (3.5-5.1) Chloride Level 116 MMOL/L (98-107) H Carbon Dioxide Level 14 MMOL/L (21-32) L Anion Gap 18 mmol/L (5-15) H Blood Urea Nitrogen 115 mg/dL (7-18) H Creatinine 4.4 MG/DL (0.55-1.30) H Estimat Glomerular Filtration Rate 17.1 mL/min (>60) Glucose Level 127 MG/DL (74-106) H Calcium Level 8.8 MG/DL (8.5-10.1) Current Medications Medications (Trade) Dose Ordered Sig/[place] Route PRN Reason Start Time Stop Time Status Last Admin Dose Admin Al Hydroxide/Mg Hydroxide (Mylanta) 30 ml QIDPRN PRN GT stomach upset 01/14/20 16:45 02/13/20 16:44 Artificial Tears (Akwa-Tears) 1 drop EVERY 12 HOURS BOTH EYES 01/14/20 21:00 02/13/20 20:59 01/27/20 09:27 Dextrose (Dextrose 50%) 25 ml Q30M PRN IV Hypoglycemia 01/14/20 16:45 04/13/20 16:44 01/20/20 09:08 Dextrose (Dextrose 50%) 50 ml Q30M PRN IV hypoglycemia 01/14/20 16:45 04/13/20 16:44 01/14/20 21:25 Dextrose/ Electrolytes 1,000 ml @ 125 mls/hr Q8H IV 01/26/20 18:30 02/25/20 18:29 01/27/20 11:18 Diphenoxylate HCl/ Atropine (Lomotil) 2.5 mg Q4H PRN ORAL Diarrhea 01/22/20 12:00 02/21/20 11:59 Insulin Aspart (NovoLOG) No Dose Q6HR SUBQ 01/14/20 18:00 04/13/20 17:59 01/25/20 23:15 Loperamide HCl (Imodium) 2 mg Q4H PRN ORAL Diarrhea 01/19/20 16:00 02/16/20 10:29 Metoclopramide HCl (Reglan) 5 mg Q8H IVP 01/26/20 10:00 02/25/20 09:59 01/27/20 09:27 Ondansetron HCl (Zofran) 4 mg Q6H PRN IVP Nausea & Vomiting 01/26/20 09:15 02/25/20 09:14 Pantoprazole (Protonix) 40 mg DAILY IVP 01/20/20 09:00 02/19/20 08:59 01/27/20 09:27 Piperacillin Sod/ Tazobactam Sod 3.375 gm/Sodium Chloride 110 ml @ 27.5 mls/hr Q12H IVPB 01/25/20 18:00 02/01/20 17:59 01/27/20 05:13 Sodium Hypochlorite (Dakin's Half Strength) 1 applic DAILY TOPIC 01/15/20 09:00 02/14/20 08:59 01/27/20 09:27 Sodium Citrate (Bicitra) 30 ml EVERY 6 HOURS GT 01/20/20 18:00 02/19/20 17:59 01/27/20 05:12 Zinc Sulfate (Zinc Sulfate) 220 mg DAILY GT 01/15/20 09:00 04/14/20 08:59 01/27/20 09:27 Tony Apple MD Jan 27, 2020 11:27
[2020-01-27 12:00] VITALS: BP 142/70
--- NOTE | 2020-01-27 13:30 | Surgery Progress Note ---
Surgery Progress Note Subjective Procedure Performed right femoral central venous catheter removal Additional Comments leukocytosis ill appearing soft collar inp lace no n/v/f/c Objective Last 24 Hour Vital Signs Date Time Temp Pulse Resp B/P (MAP) Pulse Ox O2 Delivery O2 Flow Rate FiO2 01/27/20 12:00 Mechanical Ventilator 01/27/20 12:00 98.2 75 25 142/70 (94) 100 01/27/20 12:00 73 01/27/20 12:00 30 01/27/20 11:20 75 29 30 01/27/20 08:00 Mechanical Ventilator 01/27/20 08:00 66 01/27/20 08:00 98.2 72 29 122/64 (83) 100 01/27/20 08:00 30 01/27/20 07:20 71 28 30 01/27/20 04:00 Mechanical Ventilator 01/27/20 04:00 71 01/27/20 04:00 30 01/27/20 04:00 97.0 71 25 112/65 (81) 99 01/27/20 02:53 65 24 30 01/27/20 00:00 30 01/27/20 00:00 97.2 60 26 120/73 (89) 99 01/27/20 00:00 62 01/27/20 00:00 Mechanical Ventilator 01/26/20 22:39 56 28 30 01/26/20 20:00 30 01/26/20 20:00 Mechanical Ventilator 01/26/20 20:00 97.6 61 28 100/60 (73) 100 01/26/20 19:34 63 28 30 01/26/20 19:25 58 01/26/20 16:00 Mechanical Ventilator 01/26/20 16:00 95.7 61 28 100/51 (67) 99 01/26/20 16:00 30 01/26/20 15:30 59 26 30 01/26/20 15:21 57 I&O Intake and Output 01/26/20 01/27/20 19:00 07:00 Intake Total 935.0 ml 565.0 ml Output Total 200 ml 600 ml Balance 735.0 ml -35.0 ml Intake Free Water 100 ml IV Total 835.0 ml 555.0 ml Tube Feeding 10 ml Output Urine Total 200 ml 600 ml # Bowel Movements 2 Dressing: other Wound: other Drains: other Cardiovascular: RSR Respiratory: decreased breath sounds Abdomen: soft, non-tender, present bowel sounds Extremities: edema, no cyanosis Laboratory Tests Test 01/27/20 10:25 White Blood Count 20.3 K/UL (4.8-10.8) H Red Blood Count 3.31 M/UL (4.70-6.10) L Hemoglobin 9.6 G/DL (14.2-18.0) L Hematocrit 31.0 % (42.0-52.0) L Mean Corpuscular Volume 94 FL (80-99) Mean Corpuscular Hemoglobin 29.1 PG (27.0-31.0) Mean Corpuscular Hemoglobin Concent 31.1 G/DL (32.0-36.0) L Red Cell Distribution Width 18.2 % (11.6-14.8) H Platelet Count 130 K/UL (150-450) L Mean Platelet Volume 13.0 FL (6.5-10.1) H Neutrophils (%) (Auto) % (45.0-75.0) Lymphocytes (%) (Auto) % (20.0-45.0) Monocytes (%) (Auto) % (1.0-10.0) Eosinophils (%) (Auto) % (0.0-3.0) Basophils (%) (Auto) % (0.0-2.0) Differential Total Cells Counted 100 Neutrophils % (Manual) 83 % (45-75) H Lymphocytes % (Manual) 8 % (20-45) L Monocytes % (Manual) 9 % (1-10) Eosinophils % (Manual) 0 % (0-3) Basophils % (Manual) 0 % (0-2) Band Neutrophils 0 % (0-8) Platelet Estimate Decreased L Platelet Morphology Normal Polychromasia 1+ Hypochromasia 1+ Anisocytosis 1+ Sodium Level 148 MMOL/L (136-145) H Potassium Level 3.9 MMOL/L (3.5-5.1) Chloride Level 116 MMOL/L (98-107) H Carbon Dioxide Level 14 MMOL/L (21-32) L Anion Gap 18 mmol/L (5-15) H Blood Urea Nitrogen 115 mg/dL (7-18) H Creatinine 4.4 MG/DL (0.55-1.30) H Estimat Glomerular Filtration Rate 17.1 mL/min (>60) Glucose Level 127 MG/DL (74-106) H Calcium Level 8.8 MG/DL (8.5-10.1) Plan Problems: (1) Hyponatremia (2) ARF (acute renal failure) (3) Hyperkalemia (4) Pressure sore on sacrum Assessment & Plan: Pt presented on admission with Sacral Pressure injury and Necrosis Both Both R lower ext, R foot and L foot. Generalized edema noted. Both upper ext noted to have multiple serous blisters ,some of which are weeping serous exudate. Full thickness Sacral Pressure Injury with undermined Borders. Base of wound is 75% loose necrotic tissue,25% bree. Bone exposure at base of wound. Area of necrosis noted at distal aspect of wound in space between wound and anus.Edges are macerated. Wound is malodorous.(L)9.5cm x (W)9.2cm x (D)2.9cm,undermining clockwise 10-3 by 3.8cm @12 o'clock. Scattered areas of hyperpigmentation noted to R and L clefts of buttocks. Unable to determine exudate as pt is continuously oozing large amt of semi soft black stool and leaking into wound because of close proximity to his rectum. At upper, R gluteal cheek is additional Pressure Injury with small amt Biofilm at base of wound. Edges are pink and adherent to base of wound. No exudate noted.(L)3cm x (W)2.6cm. Medially to distal Tibia,and extending to R foot is necrotic and malodorous.Wound is partially opened at posterior R tibia but is dry . L foot is necrotic and malodorous. No exudate noted. Tx.Plan: Cleanse Sacral wound with Dakin's 0.25% archana.. Loosely Pack wound with Dakin's moistened Kerlix.Apply Moisture Barrier Paste periwound.Cover with Optifoam drsg.Change Daily and PRN. Cleanse R lower ext and R foot with Dakin's 0.25% Archana. Cover wounds with ABD Pads.Wrap with Kerlix Daily and prn. Cleanse L foot Wounds with Dakin's 0.25% Archana. Cover wounds with ABD Pads and wrap with Kerlix Daily and prn. soft collar placed (5) Upper GI bleed Assessment & Plan: Patient with sepsis, abnormal labs, GI bleed, pending COVID eval. Labs noted. Exam reviewed. Chest x-ray noted as below. Discussed with GI. Plan for endoscopy once COVID status evaluated. Trend hemoglobin for now transfuse PRN. G-tube is functional and okay for medications and will plan tube feeds accordingly. No acute surgical intervention as patient is actively bleeding. Proton pump inhibitor recommended and Rx as written. Will follow with recommendations thank you for let me participate in patient's care plt low anemia prognosis guarded no active GI bleeding noted Status post PEG Tolerating tube feeds but still having diarrhea Difficult with rectal tube slides right out likely from spinal injury Anasarca stable No active bleeding line Free currently will monitor closely There is a tracheostomy in place. Vascularity is normal. Hazy densities in the lung bases may be layering effusions. Cardiac and mediastinal silhouette are within normal limits. The bony thorax appear unremarkable. line removed will monitor for bleeding IMPRESSION: Bibasilar hazy densities perhaps layering effusions. right fem line not functional noted manipulation as suture was dislodged. line replaced 1. Two or three gastric AVMs. 2. Ulcer with a small visible vessel, status post gold probe bipolar cauterization. DAILY ESTIMATED NEEDS: Needs based on Critical Care, Wounds, TR / 61kg 25-30 kcals/kg 7233-0558 total kcals 0.8-1.25 (increase w/ renal improvement) g protein/kg 49-76 g total protein 25-30 mL/kg 8267-6568 total fluid mLs NUTRITION DIAGNOSIS: * Swallowing difficulty R/T respiratory status, dysphagia as evidenced by trach/vent dep, PEG dep. * Increased kcal/prot intake needs R/T wound healing as evidenced by admtited w/ multiple wounds including full thickness wound @ sacrum, pressure Injury with small amt Biofilm at base of wound @ uppera R gluteal cheek, necrotic wound @ medial to distal Tibia,and extending to R foot and L foot * Altered nutrition related lab R/T TR as evidenced by elev BUN (215-> 96), elev creat (5.2->4.2), low Na (124 ->148), elev K (6.7 -> wnl) CURRENT TF:Nepro @ 37ml/hr x 24 hrs ENTERAL NUTRITION RECOMMENDATIONS: Nepro @ 37ml/hr x 24 hrs to provide 888ml, 1598kcal, 72g prot, 646ml free water * Maintain current TF -> rec Nepro at this time given TR (Creat 5.2-> 4.3) w/ elev K upon adm * HOB over 30 degrees/ water flush per MD W/ CONTINUED DIARRHEA, consider trial of elemental formula of Vital AF 1.2 @ goal rate of 45ml/hr x 24 hrs to provide 1080ml, 1296kcal, 81g prot, 876lm free water: will meet 85% est kcal and 106% est prot needs. -----> W/ non renal TF, monitor lytes closely (K wnl at this time, phos level not available) ADDITIONAL RECOMMENDATIONS: * Per SNF: HT=62" WT= 135lbs (12/25/19) * Monitor renal fxn and lytes (Creat 5.3 -> 4.1) -> check phos and mag (not checked since adm) * Wound healing: Once TF well tolerated at goal, add Ajay BID * Monitor for hypoglycemia: no further episodes (now 70's) * Add probiotics to help improve gut ewelina- + diarrhea -> consider trial of elemental TF of Vital AF Study is somewhat limited due to anasarca and overlying bowel gas, midline gastrostomy bandages. Gallbladder demonstrates sludge and tiny stones. The gallbladder wall is mildly thickened. Sonographic Velázquez sign could not be assessed. Common bile duct measures 4 mm in diameter. No intrahepatic biliary ductal dilatation. The liver is enlarged. It demonstrates normal echogenicity. No focal abnormality. Small amount of ascites fluid is seen at the anterior liver surface and adjacent to the gallbladder, left upper quadrant, and in the pelvis Portal vein and hepatic veins are patent. Pancreas is obscured by bowel gas. Spleen is unremarkable. Left kidney measures 11.4 cm in length. Right kidney measures 10.9 cm length. Both kidneys demonstrate normal echogenicity. There is no hydronephrosis. No focal abnormality . Abdominal aorta is partially obscured by bowel gas, visualized portions are non-aneurysmal . There are small bilateral pleural effusions (6) Severe malnutrition Assessment & Plan: emesis tf on hold monitor residuals (7) Respiratory failure Javid Singh Jan 27, 2020 13:30
--- NOTE | 2020-01-27 13:51 | Nephrology Progress Note ---
Assessment/Plan Problem List: (1) Respiratory failure (2) ARF (acute renal failure) (3) Hyponatremia (4) Hyperkalemia (5) Upper GI bleed (6) Pressure sore on sacrum (7) Diarrhea (8) Severe malnutrition Plan diarrhea, reorder iv fluids,BUN/creatinine 70/.91 11/2019, enteral hydration , reji likely from infection, severe hypoalbuminemia and anasarca with poor prognosis Na higher iv adjusted, bicitra started for acidosis, emesis today Subjective ROS Limited/Unobtainable: Yes Objective Objective Last 24 Hour Vital Signs Date Time Temp Pulse Resp B/P (MAP) Pulse Ox O2 Delivery O2 Flow Rate FiO2 01/27/20 12:00 Mechanical Ventilator 01/27/20 12:00 98.2 75 25 142/70 (94) 100 01/27/20 12:00 73 01/27/20 12:00 30 01/27/20 11:20 75 29 30 01/27/20 08:00 Mechanical Ventilator 01/27/20 08:00 66 01/27/20 08:00 98.2 72 29 122/64 (83) 100 01/27/20 08:00 30 01/27/20 07:20 71 28 30 01/27/20 04:00 Mechanical Ventilator 01/27/20 04:00 71 01/27/20 04:00 30 01/27/20 04:00 97.0 71 25 112/65 (81) 99 01/27/20 02:53 65 24 30 01/27/20 00:00 30 01/27/20 00:00 97.2 60 26 120/73 (89) 99 01/27/20 00:00 62 01/27/20 00:00 Mechanical Ventilator 01/26/20 22:39 56 28 30 01/26/20 20:00 30 01/26/20 20:00 Mechanical Ventilator 01/26/20 20:00 97.6 61 28 100/60 (73) 100 01/26/20 19:34 63 28 30 01/26/20 19:25 58 01/26/20 16:00 Mechanical Ventilator 01/26/20 16:00 95.7 61 28 100/51 (67) 99 01/26/20 16:00 30 01/26/20 15:30 59 26 30 01/26/20 15:21 57 Intake and Output 01/26/20 01/27/20 19:00 07:00 Intake Total 935.0 ml 565.0 ml Output Total 200 ml 600 ml Balance 735.0 ml -35.0 ml Intake Free Water 100 ml IV Total 835.0 ml 555.0 ml Tube Feeding 10 ml Output Urine Total 200 ml 600 ml # Bowel Movements 2 Laboratory Tests 01/27/20 10:25: White Blood Count 20.3H, Red Blood Count 3.31L, Hemoglobin 9.6L, Hematocrit 31.0L, Mean Corpuscular Volume 94, Mean Corpuscular Hemoglobin 29.1, Mean Corpuscular Hemoglobin Concent 31.1L, Red Cell Distribution Width 18.2H, Platelet Count 130L, Mean Platelet Volume 13.0H, Neutrophils (%) (Auto) , Lymphocytes (%) (Auto) , Monocytes (%) (Auto) , Eosinophils (%) (Auto) , Basophils (%) (Auto) , Differential Total Cells Counted 100, Neutrophils % ( Manual) 83H, Lymphocytes % (Manual) 8L, Monocytes % (Manual) 9, Eosinophils % ( Manual) 0, Basophils % (Manual) 0, Band Neutrophils 0, Platelet Estimate DecreasedL, Platelet Morphology Normal, Polychromasia 1+, Hypochromasia 1+, Anisocytosis 1+, Sodium Level 148H, Potassium Level 3.9, Chloride Level 116H, Carbon Dioxide Level 14L, Anion Gap 18H, Blood Urea Nitrogen 115H, Creatinine 4.4H, Estimat Glomerular Filtration Rate 17.1, Glucose Level 127H, Calcium Level 8.8 Height (Feet): 5 Height (Inches): 5.00 Weight (Pounds): 180 General Appearance: lethargic, other - on vent Cardiovascular: regular rhythm Respiratory/Chest: rhonchi - bilaterally Abdomen: soft Extremities: moderate edema Neurologic: unresponsive Martin Yee MD Jan 27, 2020 13:51
[2020-01-27 16:00] VITALS: BP 141/72
[2020-01-27] MEDS ORDERED: NS 275ml ONE (17:38)
[2020-01-27 20:00] VITALS: BP 137/73
[2020-01-28] VITALS: BP 125/64
[2020-01-28] MEDS: Sodium Citrate 30ml GT SCH ×5 (00:24→23:42)
[2020-01-28] MEDS: D5W w/KCl 20mEq 1,000 ML IV SCH ×2 (00:25→10:00)
[2020-01-28] MEDS: Insulin NovoLOG Flexpen S/S (Mod) SUBQ SCH ×5 (00:28→23:43)
[2020-01-28] MEDS: Metoclopramide 10mg/2ml Inj IVP SCH ×3 (01:31→17:32)
[2020-01-28 04:00] VITALS: BP 128/73
[2020-01-28 04:40] LABS: HEMATOCRIT 29.7 % (42.0-52.0); HEMOGLOBIN 9.4 G/DL (14.2-18.0); MEAN CORPUSCULAR VOLUME 93 FL (80-99); PLATELET COUNT 128 K/UL (150-450); RED BLOOD COUNT 3.18 M/UL (4.70-6.10); RED CELL DISTRIBUTION WIDTH 17.6 % (11.6-14.8)
[2020-01-28 05:26] LABS: WHITE BLOOD COUNT 22.4 K/UL (4.8-10.8)
[2020-01-28 05:36] LABS: ALANINE AMINOTRANSFERASE 116 U/L (12-78); ALBUMIN < 0.6 G/DL (3.4-5.0); ALKALINE PHOSPHATASE 220 U/L (46-116); ANION GAP 19 mmol/L (5-15); ASPARTATE AMINO TRANSFERASE 78 U/L (15-37); BILIRUBIN,TOTAL 1.5 MG/DL (0.2-1.0); BLOOD UREA NITROGEN 111 mg/dL (7-18); CALCIUM 8.9 MG/DL (8.5-10.1); CARBON DIOXIDE 12 MMOL/L (21-32); CHLORIDE 113 MMOL/L (98-107); CREATININE 4.5 MG/DL (0.55-1.30); POTASSIUM 3.5 MMOL/L (3.5-5.1); SODIUM 144 MMOL/L (136-145)
[2020-01-28] MEDS: Piperacillin/Tazobactam 3.375 GM in NS 110 ML IVPB SCH ×2 (05:57→17:32)
[2020-01-28 07:04] LABS: BILIRUBIN,DIRECT 1.2 MG/DL (0.0-0.3)
[2020-01-28 07:47] VITALS: BP 144/80
--- NOTE | 2020-01-28 07:53 | General Progress Note ---
Assessment/Plan Assessment/Plan: sepsis anemia GIB thrombocytopenia hyponatremia ARF DM dysphagia with GT s/p EGD/PEG GTF will resume lomotil prn imodium prn ppi elevated LFTS>>> stable us reviewed fu abd CT, reviewed protonix daily add Imodium will fu Subjective ROS Limited/Unobtainable: No Allergies: Coded Allergies: No Known Allergies (Unverified , 10/07/19) Objective Last 24 Hour Vital Signs Date Time Temp Pulse Resp B/P (MAP) Pulse Ox O2 Delivery O2 Flow Rate FiO2 01/28/20 07:47 97.3 68 26 144/80 (101) 100 01/28/20 04:00 67 01/28/20 04:00 30 01/28/20 04:00 Mechanical Ventilator 01/28/20 04:00 97.5 66 26 128/73 (91) 100 01/28/20 03:10 69 25 30 01/28/20 00:00 Mechanical Ventilator 01/28/20 00:00 67 01/28/20 00:00 30 01/28/20 00:00 97.6 65 22 125/64 (84) 100 01/27/20 22:59 72 27 30 01/27/20 20:26 72 28 30 01/27/20 20:00 72 01/27/20 20:00 30 01/27/20 20:00 98.2 75 22 137/73 (94) 99 01/27/20 20:00 Mechanical Ventilator 01/27/20 16:00 Mechanical Ventilator 01/27/20 16:00 97.9 76 25 141/72 (95) 100 01/27/20 16:00 30 01/27/20 16:00 75 01/27/20 15:20 76 27 30 01/27/20 12:00 Mechanical Ventilator 01/27/20 12:00 98.2 75 25 142/70 (94) 100 01/27/20 12:00 73 01/27/20 12:00 30 01/27/20 11:20 75 29 30 01/27/20 08:00 Mechanical Ventilator 01/27/20 08:00 66 01/27/20 08:00 98.2 72 29 122/64 (83) 100 01/27/20 08:00 30 Intake and Output 01/27/20 01/28/20 19:00 07:00 Intake Total 1650.0 ml 1431.5 ml Output Total 430 ml 300 ml Balance 1220.0 ml 1131.5 ml IV Total 1330.0 ml 1027.5 ml Tube Feeding 220 ml 404 ml Other 100 ml Output Urine Total 350 ml 300 ml Stool Total 80 ml # Bowel Movements 4 1 Laboratory Tests 01/27/20 10:25: White Blood Count 20.3H, Red Blood Count 3.31L, Hemoglobin 9.6L, Hematocrit 31.0L, Mean Corpuscular Volume 94, Mean Corpuscular Hemoglobin 29.1, Mean Corpuscular Hemoglobin Concent 31.1L, Red Cell Distribution Width 18.2H, Platelet Count 130L, Mean Platelet Volume 13.0H, Neutrophils (%) (Auto) , Lymphocytes (%) (Auto) , Monocytes (%) (Auto) , Eosinophils (%) (Auto) , Basophils (%) (Auto) , Differential Total Cells Counted 100, Neutrophils % ( Manual) 83H, Lymphocytes % (Manual) 8L, Monocytes % (Manual) 9, Eosinophils % ( Manual) 0, Basophils % (Manual) 0, Band Neutrophils 0, Platelet Estimate DecreasedL, Platelet Morphology Normal, Polychromasia 1+, Hypochromasia 1+, Anisocytosis 1+, Sodium Level 148H, Potassium Level 3.9, Chloride Level 116H, Carbon Dioxide Level 14L, Anion Gap 18H, Blood Urea Nitrogen 115H, Creatinine 4.4H, Estimat Glomerular Filtration Rate 17.1, Glucose Level 127H, Calcium Level 8.8 01/28/20 03:15: White Blood Count 22.4*H, Red Blood Count 3.18L, Hemoglobin 9.4L, Hematocrit 29.7L, Mean Corpuscular Volume 93, Mean Corpuscular Hemoglobin 29.6, Mean Corpuscular Hemoglobin Concent 31.7L, Red Cell Distribution Width 17.6H, Platelet Count 128L, Mean Platelet Volume 12.4H, Neutrophils (%) (Auto) , Lymphocytes (%) (Auto) , Monocytes (%) (Auto) , Eosinophils (%) (Auto) , Basophils (%) (Auto) , Neutrophils % (Manual) [Pending], Lymphocytes % (Manual) [Pending], Platelet Estimate [Pending], Platelet Morphology [Pending], Sodium Level 144, Potassium Level 3.5, Chloride Level 113H, Carbon Dioxide Level 12L, Anion Gap 19H, Blood Urea Nitrogen 111H, Creatinine 4.5H, Estimat Glomerular Filtration Rate 16.7, Glucose Level 173H, Calcium Level 8.9, Total Bilirubin 1.5H, Direct Bilirubin 1.2H, Aspartate Amino Transf (AST/SGOT) 78H, Alanine Aminotransferase (ALT/SGPT) 116H, Alkaline Phosphatase 220H, Total Protein 5.5L , Albumin < 0.6L, Globulin 5.4 Height (Feet): 5 Height (Inches): 5.00 Weight (Pounds): 179 General Appearance: lethargic EENT: normal ENT inspection Neck: supple Cardiovascular: normal rate Respiratory/Chest: decreased breath sounds Abdomen: normal bowel sounds, non tender, soft Extremities: non-tender Toni Mckenzie MD Jan 28, 2020 07:53
--- NOTE | 2020-01-28 07:53 | Hematology/Onc Progress Note ---
Assessment/Plan Assessment/Plan Assessment and recs # Thrombocytopenia - potential causes multifactorial, evaluate liver and viral etiologies to begin, also could be related to underlying medications patient has received. May be due to DIC in this case, or consumption --> Hep panel and HIV negative --> US abd to evaluate for cirrhosis and hsm --> positive for mild hepatomegaly --> Peripheral smear ordered to evaluate for blasts /schistocytes --> abx and other meds have been reviewed --> ok for ppx if plt >50k w/ either heparin or lovenox --> Transfuse if Plt < 20k and fever, or if Plt < 10k without fever --> plt trend 41-->32-->21k-->20 -->61k-->45-->62-->51->38->55->50->70-->90--> 112 -->118 -->106-->109 # Anemia due to Upper GI bleed, hematuria --> no evidence of hemolysis is noted --> smear noted --> anemia panel reviewed, ferritin high --> po iron ok --> for hematuria as per urology --> Pending endoscopy when clear from covid19 --> hgb trend: 9.1 ->8.3->6.9-->8.1-->8.3-->7.6 -->6.6-->10.5-->9.8-->9.3->8.5-- >8.6 -->8.5-->8.3-->8 -->7.7 --> prbc: 2 units 01/02, 01/12 # Leukocytosis due to e/coli/kleb pna --> wbc trend 23-->32-->17.1-->13.9-->10-->15-->17.7-->21.8-->17-->20.2-->23 --> as per id recs --> on connor/wilma--> vanc-->zosyn # Hyperkalemia --> kayxelate as needed --> k trend # ARF (acute renal failure) --> per renal # Hyponatremia # Gram negative pneumonia # Ventilator dependent respiratory failure # intracranial hemorrhage # paraplegia # Dysphagia with gtube # Dvt ppx scds The timing of this note does not necessarily reflect the time of the patient was seen. Greatly appreciate consultation. Subjective Allergies: Coded Allergies: No Known Allergies (Unverified , 10/07/19) Subjective 01/03obtunded, s/p rbc x2, hgb improved to 9.1, us abd reviewed, hematuria+ 01/04 plt are better, got 1 unit pf platets today as well, plt now 61k, less gi bleed overnight, some black tarry stool noted 01/05 nv, labs noted, hgb 8.5, no hemolysis noted, no bleeding, plt 83, egd tomorrow 01/06 egd for this am, results are pending, labs noted 01/09 no major changes, labs noted, no bleeding wbc higher, on abx 01/10 sdu, wbc improving, inr 1.4, vent, h/h stable, no distress 01/11 hgb 7.6, no tx required, repeat cbc for tomorrow, on vent 01/12 remains on vent, hgb 6.6, getting 2 iunits prbc today, will need picc 01/13 trach to vent, nepro feeds ongoing, hgb improved 10.5 01/14 s/p egd w/ peg, rectal tube, no acute events, h/h stable 01/15 remains obtunded, minimal blood in stool, will hold off on platelet administration 01/16 labs noted, nob leeding, meds reviewed, plt higher 01/18 sdu, nonverbal, no acute events, vent, vanc 01/19 remains on vent, with po vanc, wbc higher as is plt 01/20 sdu, obtunded, blisters to groin/scrotum area, labs reviewed 01/21 ctap and us abd reviewed, mild hepatomegaly, hgb 8.5, inr 1.8 01/22 remains on zosyn at this time, no bleeding, hgb .3, wbc 17 01/23 wbc trending up, contact isolation, no acute events 01/25 remains obtunded, dw Rn, wbc 23, hgb 7.7, holding off transf 01/26 labs reviewed, no bleeding, hgb 7.7, yesterday, wit gtube feeds 01/27 sdu, no overnight events, wbc 22.4, iv abx, afebrile Objective Objective Current Medications Medications (Trade) Dose Ordered Sig/[place] Route PRN Reason Start Time Stop Time Status Last Admin Dose Admin Al Hydroxide/Mg Hydroxide (Mylanta) 30 ml QIDPRN PRN GT stomach upset 01/14/20 16:45 02/13/20 16:44 Artificial Tears (Akwa-Tears) 1 drop EVERY 12 HOURS BOTH EYES 01/14/20 21:00 02/13/20 20:59 01/27/20 20:21 Dextrose (Dextrose 50%) 25 ml Q30M PRN IV Hypoglycemia 01/14/20 16:45 04/13/20 16:44 01/20/20 09:08 Dextrose (Dextrose 50%) 50 ml Q30M PRN IV hypoglycemia 01/14/20 16:45 04/13/20 16:44 01/14/20 21:25 Dextrose/ Electrolytes 1,000 ml @ 100 mls/hr Q10H IV 01/27/20 14:00 02/26/20 13:59 01/28/20 00:25 Diphenoxylate HCl/ Atropine (Lomotil) 2.5 mg Q4H PRN ORAL Diarrhea 01/22/20 12:00 02/21/20 11:59 Insulin Aspart (NovoLOG) No Dose Q6HR SUBQ 01/14/20 18:00 04/13/20 17:59 01/28/20 00:28 Loperamide HCl (Imodium) 2 mg Q4H PRN ORAL Diarrhea 01/19/20 16:00 02/16/20 10:29 Metoclopramide HCl (Reglan) 5 mg Q8H IVP 01/26/20 10:00 02/25/20 09:59 01/28/20 01:31 Ondansetron HCl (Zofran) 4 mg Q6H PRN IVP Nausea & Vomiting 01/26/20 09:15 02/25/20 09:14 Pantoprazole (Protonix) 40 mg DAILY IVP 01/20/20 09:00 02/19/20 08:59 01/27/20 09:27 Piperacillin Sod/ Tazobactam Sod 3.375 gm/Sodium Chloride 110 ml @ 27.5 mls/hr Q12H IVPB 01/25/20 18:00 02/01/20 17:59 01/28/20 05:57 Sodium Hypochlorite (Dakin's Half Strength) 1 applic DAILY TOPIC 01/15/20 09:00 02/14/20 08:59 01/27/20 09:27 Sodium Citrate (Bicitra) 30 ml EVERY 6 HOURS GT 01/20/20 18:00 02/19/20 17:59 01/28/20 05:56 Zinc Sulfate (Zinc Sulfate) 220 mg DAILY GT 01/15/20 09:00 04/14/20 08:59 01/27/20 09:27 Last 24 Hour Vital Signs Date Time Temp Pulse Resp B/P (MAP) Pulse Ox O2 Delivery O2 Flow Rate FiO2 01/28/20 07:47 97.3 68 26 144/80 (101) 100 01/28/20 04:00 67 01/28/20 04:00 30 01/28/20 04:00 Mechanical Ventilator 01/28/20 04:00 97.5 66 26 128/73 (91) 100 01/28/20 03:10 69 25 30 01/28/20 00:00 Mechanical Ventilator 01/28/20 00:00 67 01/28/20 00:00 30 01/28/20 00:00 97.6 65 22 125/64 (84) 100 01/27/20 22:59 72 27 30 01/27/20 20:26 72 28 30 01/27/20 20:00 72 01/27/20 20:00 30 01/27/20 20:00 98.2 75 22 137/73 (94) 99 01/27/20 20:00 Mechanical Ventilator 01/27/20 16:00 Mechanical Ventilator 01/27/20 16:00 97.9 76 25 141/72 (95) 100 01/27/20 16:00 30 01/27/20 16:00 75 01/27/20 15:20 76 27 30 01/27/20 12:00 Mechanical Ventilator 01/27/20 12:00 98.2 75 25 142/70 (94) 100 01/27/20 12:00 73 01/27/20 12:00 30 01/27/20 11:20 75 29 30 01/27/20 08:00 Mechanical Ventilator 6/15/20 08:00 66 01/27/20 08:00 98.2 72 29 122/64 (83) 100 01/27/20 08:00 30 01/27/20 07:20 71 28 30 01/27/20 04:00 Mechanical Ventilator 01/27/20 04:00 71 01/27/20 04:00 30 01/27/20 04:00 97.0 71 25 112/65 (81) 99 01/27/20 02:53 65 24 30 01/27/20 00:00 30 01/27/20 00:00 97.2 60 26 120/73 (89) 99 01/27/20 00:00 62 01/27/20 00:00 Mechanical Ventilator 01/26/20 22:39 56 28 30 01/26/20 20:00 30 01/26/20 20:00 Mechanical Ventilator 01/26/20 20:00 97.6 61 28 100/60 (73) 100 01/26/20 19:34 63 28 30 01/26/20 19:25 58 01/26/20 16:00 Mechanical Ventilator 01/26/20 16:00 95.7 61 28 100/51 (67) 99 01/26/20 16:00 30 01/26/20 15:30 59 26 30 01/26/20 15:21 57 01/26/20 12:57 62 24 30 01/26/20 12:00 30 01/26/20 12:00 Mechanical Ventilator 01/26/20 12:00 96.1 61 22 102/73 (83) 100 01/26/20 11:35 61 01/26/20 08:00 Mechanical Ventilator 01/26/20 08:00 30 01/26/20 08:00 96.3 60 18 110/63 (79) 100 01/26/20 07:55 61 Intake and Output 01/27/20 01/28/20 19:00 07:00 Intake Total 1650.0 ml 1431.5 ml Output Total 430 ml 300 ml Balance 1220.0 ml 1131.5 ml IV Total 1330.0 ml 1027.5 ml Tube Feeding 220 ml 404 ml Other 100 ml Output Urine Total 350 ml 300 ml Stool Total 80 ml # Bowel Movements 4 1 Labs Test 01/25/20 09:30 01/26/20 10:40 01/27/20 10:25 01/28/20 03:15 White Blood Count 22.6 K/UL (4.8-10.8) 23.3 K/UL (4.8-10.8) 20.3 K/UL (4.8-10.8) 22.4 K/UL (4.8-10.8) Red Blood Count 2.76 M/UL (4.70-6.10) 2.77 M/UL (4.70-6.10) 3.31 M/UL (4.70-6.10) 3.18 M/UL (4.70-6.10) Hemoglobin 7.9 G/DL (14.2-18.0) 7.7 G/DL (14.2-18.0) 9.6 G/DL (14.2-18.0) 9.4 G/DL (14.2-18.0) Hematocrit 25.4 % (42.0-52.0) 25.9 % (42.0-52.0) 31.0 % (42.0-52.0) 29.7 % (42.0-52.0) Mean Corpuscular Volume 92 FL (80-99) 94 FL (80-99) 94 FL (80-99) 93 FL (80- 99) Mean Corpuscular Hemoglobin 28.6 PG (27.0-31.0) 28.0 PG (27.0-31.0) 29.1 PG (27.0-31.0) 29.6 PG (27.0-31.0) Mean Corpuscular Hemoglobin Concent 31.1 G/DL (32.0-36.0) 29.9 G/DL (32.0-36.0) 31.1 G/DL (32.0-36.0) 31.7 G/DL (32.0-36.0) Red Cell Distribution Width 17.7 % (11.6-14.8) 19.8 % (11.6-14.8) 18.2 % (11.6-14.8) 17.6 % (11.6-14.8) Platelet Count 92 K/UL (150-450) 108 K/UL (150-450) 130 K/UL (150-450) 128 K/UL (150-450) Mean Platelet Volume 11.4 FL (6.5-10.1) 12.2 FL (6.5-10.1) 13.0 FL (6.5-10.1) 12.4 FL (6.5-10.1) Neutrophils (%) (Auto) % (45.0-75.0) % (45.0-75.0) % (45.0-75.0) % (45.0- 75.0) Lymphocytes (%) (Auto) % (20.0-45.0) % (20.0-45.0) % (20.0-45.0) % (20.0- 45.0) Monocytes (%) (Auto) % (1.0-10.0) % (1.0-10.0) % (1.0-10.0) % (1.0-10.0) Eosinophils (%) (Auto) % (0.0-3.0) % (0.0-3.0) % (0.0-3.0) % (0.0-3.0) Basophils (%) (Auto) % (0.0-2.0) % (0.0-2.0) % (0.0-2.0) % (0.0-2.0) Differential Total Cells Counted 100 100 100 Neutrophils % (Manual) 85 % (45-75) 88 % (45-75) 83 % (45-75) Lymphocytes % (Manual) 6 % (20-45) 8 % (20-45) 8 % (20-45) Monocytes % (Manual) 6 % (1-10) 4 % (1-10) 9 % (1-10) Eosinophils % (Manual) 1 % (0-3) 0 % (0-3) 0 % (0-3) Basophils % (Manual) 0 % (0-2) 0 % (0-2) 0 % (0-2) Band Neutrophils 2 % (0-8) 0 % (0-8) 0 % (0-8) Platelet Estimate Decreased Decreased Decreased Platelet Morphology Normal Normal Normal Hypochromasia 1+ 1+ 1+ Anisocytosis 1+ 1+ 1+ Polychromasia 1+ 1+ Sodium Level 149 MMOL/L (136-145) 148 MMOL/L (136-145) 144 MMOL/L (136-145) Potassium Level 3.4 MMOL/L (3.5-5.1) 3.9 MMOL/L (3.5-5.1) 3.5 MMOL/L (3.5-5.1) Chloride Level 117 MMOL/L (98-107) 116 MMOL/L (98-107) 113 MMOL/L (98-107) Carbon Dioxide Level 14 MMOL/L (21-32) 14 MMOL/L (21-32) 12 MMOL/L (21-32) Anion Gap 18 mmol/L (5-15) 18 mmol/L (5-15) 19 mmol/L (5-15) Blood Urea Nitrogen 118 mg/dL (7-18) 115 mg/dL (7-18) 111 mg/dL (7-18) Creatinine 4.4 MG/DL (0.55-1.30) 4.4 MG/DL (0.55-1.30) 4.5 MG/DL (0.55-1.30) Estimat Glomerular Filtration Rate 17.1 mL/min (>60) 17.1 mL/min (>60) 16.7 mL/min (>60) Glucose Level 139 MG/DL (74-106) 127 MG/DL (74-106) 173 MG/DL (74-106) Calcium Level 8.8 MG/DL (8.5-10.1) 8.8 MG/DL (8.5-10.1) 8.9 MG/DL (8.5-10.1) Total Bilirubin 1.5 MG/DL (0.2-1.0) Direct Bilirubin 1.2 MG/DL (0.0-0.3) Aspartate Amino Transf (AST/SGOT) 78 U/L (15-37) Alanine Aminotransferase (ALT/SGPT) 116 U/L (12-78) Alkaline Phosphatase 220 U/L (46-116) Total Protein 5.5 G/DL (6.4-8.2) Albumin < 0.6 G/DL (3.4-5.0) Globulin 5.4 g/dL Height (Feet): 5 Height (Inches): 5.00 Weight (Pounds): 179 Objective Physical Exam: Vitals: reviewed General: NAD ++obtunded HEENT: nc, at, mouth guard+ Neck: supple++trach Chest: clear breath sounds bilaterally Cardiovascular: RRR, no s3, s4 Abdomen/GI: soft, nontender, nd ++gtube, rectal tube+ Extremities: no cce, normal range of motion, ++ Spasticity in the left upper extremity. Flaccid on the right, scrotal blisters++ Neuro: nonfocal : skinny+ Wilmer Turner MD Jan 28, 2020 07:53
[2020-01-28] MEDS: Pantoprazole Inj IVP SCH (08:18)
[2020-01-28] MEDS: Zinc Sulfate 220mg GT SCH (08:18)
[2020-01-28] MEDS: Dakin's 0.25% (Half Strength) 16oz TOPIC SCH (08:29)
--- NOTE | 2020-01-28 08:58 | Pulmonology Progress Note ---
Subjective ROS Limited/Unobtainable: No Constitutional: Denies: fever Gastrointestinal/Abdominal: Reports: diarrhea Allergies: Coded Allergies: No Known Allergies (Unverified , 10/07/19) All Systems: reviewed and negative except above Subjective care noted on vent no significant improvement renal function poor wbc noted labs noted Objective Last 24 Hour Vital Signs Date Time Temp Pulse Resp B/P (MAP) Pulse Ox O2 Delivery O2 Flow Rate FiO2 01/28/20 08:00 30 01/28/20 07:47 97.3 68 26 144/80 (101) 100 01/28/20 04:00 67 01/28/20 04:00 30 01/28/20 04:00 Mechanical Ventilator 01/28/20 04:00 97.5 66 26 128/73 (91) 100 01/28/20 03:10 69 25 30 01/28/20 00:00 Mechanical Ventilator 01/28/20 00:00 67 01/28/20 00:00 30 01/28/20 00:00 97.6 65 22 125/64 (84) 100 01/27/20 22:59 72 27 30 01/27/20 20:26 72 28 30 01/27/20 20:00 72 01/27/20 20:00 30 01/27/20 20:00 98.2 75 22 137/73 (94) 99 01/27/20 20:00 Mechanical Ventilator 01/27/20 16:00 Mechanical Ventilator 01/27/20 16:00 97.9 76 25 141/72 (95) 100 01/27/20 16:00 30 01/27/20 16:00 75 01/27/20 15:20 76 27 30 01/27/20 12:00 Mechanical Ventilator 01/27/20 12:00 98.2 75 25 142/70 (94) 100 01/27/20 12:00 73 01/27/20 12:00 30 01/27/20 11:20 75 29 30 Intake and Output 01/27/20 01/28/20 19:00 07:00 Intake Total 1650.0 ml 1431.5 ml Output Total 430 ml 300 ml Balance 1220.0 ml 1131.5 ml IV Total 1330.0 ml 1027.5 ml Tube Feeding 220 ml 404 ml Other 100 ml Output Urine Total 350 ml 300 ml Stool Total 80 ml # Bowel Movements 4 1 Objective WDWN trach clear breath sounds bilaterally without rhonchi or wheeze [id number] without MRG NABS nontender no HSM no CCE poor LOC reviewed and edited Laboratory Tests 01/27/20 10:25: White Blood Count 20.3H, Red Blood Count 3.31L, Hemoglobin 9.6L, Hematocrit 31.0L, Mean Corpuscular Volume 94, Mean Corpuscular Hemoglobin 29.1, Mean Corpuscular Hemoglobin Concent 31.1L, Red Cell Distribution Width 18.2H, Platelet Count 130L, Mean Platelet Volume 13.0H, Neutrophils (%) (Auto) , Lymphocytes (%) (Auto) , Monocytes (%) (Auto) , Eosinophils (%) (Auto) , Basophils (%) (Auto) , Differential Total Cells Counted 100, Neutrophils % ( Manual) 83H, Lymphocytes % (Manual) 8L, Monocytes % (Manual) 9, Eosinophils % ( Manual) 0, Basophils % (Manual) 0, Band Neutrophils 0, Platelet Estimate DecreasedL, Platelet Morphology Normal, Polychromasia 1+, Hypochromasia 1+, Anisocytosis 1+, Sodium Level 148H, Potassium Level 3.9, Chloride Level 116H, Carbon Dioxide Level 14L, Anion Gap 18H, Blood Urea Nitrogen 115H, Creatinine 4.4H, Estimat Glomerular Filtration Rate 17.1, Glucose Level 127H, Calcium Level 8.8 01/28/20 03:15: White Blood Count 22.4*H, Red Blood Count 3.18L, Hemoglobin 9.4L, Hematocrit 29.7L, Mean Corpuscular Volume 93, Mean Corpuscular Hemoglobin 29.6, Mean Corpuscular Hemoglobin Concent 31.7L, Red Cell Distribution Width 17.6H, Platelet Count 128L, Mean Platelet Volume 12.4H, Neutrophils (%) (Auto) , Lymphocytes (%) (Auto) , Monocytes (%) (Auto) , Eosinophils (%) (Auto) , Basophils (%) (Auto) , Differential Total Cells Counted 100, Neutrophils % ( Manual) 81H, Lymphocytes % (Manual) 7L, Monocytes % (Manual) 12H, Eosinophils % (Manual) 0, Basophils % (Manual) 0, Band Neutrophils 0, Platelet Estimate DecreasedL, Platelet Morphology Normal, Hypochromasia 2+, Anisocytosis 1+, Sodium Level 144, Potassium Level 3.5, Chloride Level 113H, Carbon Dioxide Level 12L, Anion Gap 19H, Blood Urea Nitrogen 111H, Creatinine 4.5H, Estimat Glomerular Filtration Rate 16.7, Glucose Level 173H, Calcium Level 8.9, Total Bilirubin 1.5H, Direct Bilirubin 1.2H, Aspartate Amino Transf (AST/SGOT) 78H, Alanine Aminotransferase (ALT/SGPT) 116H, Alkaline Phosphatase 220H, Total Protein 5.5L, Albumin < 0.6L, Globulin 5.4 Current Medications Medications (Trade) Dose Ordered Sig/[place] Route PRN Reason Start Time Stop Time Status Last Admin Dose Admin Al Hydroxide/Mg Hydroxide (Mylanta) 30 ml QIDPRN PRN GT stomach upset 01/14/20 16:45 02/13/20 16:44 Artificial Tears (Akwa-Tears) 1 drop EVERY 12 HOURS BOTH EYES 01/14/20 21:00 02/13/20 20:59 01/28/20 08:18 Dextrose (Dextrose 50%) 25 ml Q30M PRN IV Hypoglycemia 01/14/20 16:45 04/13/20 16:44 01/20/20 09:08 Dextrose (Dextrose 50%) 50 ml Q30M PRN IV hypoglycemia 01/14/20 16:45 04/13/20 16:44 01/14/20 21:25 Dextrose/ Electrolytes 1,000 ml @ 100 mls/hr Q10H IV 01/27/20 14:00 02/26/20 13:59 01/28/20 00:25 Diphenoxylate HCl/ Atropine (Lomotil) 2.5 mg Q4H PRN ORAL Diarrhea 01/22/20 12:00 02/21/20 11:59 Insulin Aspart (NovoLOG) No Dose Q6HR SUBQ 01/14/20 18:00 04/13/20 17:59 01/28/20 00:28 Loperamide HCl (Imodium) 2 mg Q4H PRN ORAL Diarrhea 01/19/20 16:00 02/16/20 10:29 01/28/20 08:18 Loperamide HCl (Imodium) 2 mg Q6H PRN GT Diarrhea 01/28/20 08:00 02/27/20 07:59 UNV Metoclopramide HCl (Reglan) 5 mg Q8H IVP 01/26/20 10:00 02/25/20 09:59 01/28/20 01:31 Ondansetron HCl (Zofran) 4 mg Q6H PRN IVP Nausea & Vomiting 01/26/20 09:15 02/25/20 09:14 Pantoprazole (Protonix) 40 mg DAILY IVP 01/20/20 09:00 02/19/20 08:59 01/28/20 08:18 Piperacillin Sod/ Tazobactam Sod 3.375 gm/Sodium Chloride 110 ml @ 27.5 mls/hr Q12H IVPB 01/25/20 18:00 02/01/20 17:59 01/28/20 05:57 Sodium Hypochlorite (Dakin's Half Strength) 1 applic DAILY TOPIC 01/15/20 09:00 02/14/20 08:59 01/28/20 08:29 Sodium Citrate (Bicitra) 30 ml EVERY 6 HOURS GT 01/20/20 18:00 02/19/20 17:59 01/28/20 05:56 Zinc Sulfate (Zinc Sulfate) 220 mg DAILY GT 01/15/20 09:00 04/14/20 08:59 01/28/20 08:18 Assessment/Plan Assessment/Plan IMPRESSION chronic respiratory failure Acute on chronic renal failure elevated K anemia GIB leukocytosis possible sepsis oral bleeding diarrhea transaminitis PLAN ID , GI and renal clearance vent as is monitor vitals now again with worsening wbc and not improving cxr with increased congestion snf meds full code/ d/w again as to poor prognosis prognosis very poor for recovery consider dc to snf when labs improved impression, plan, and exam edited and reviewed in detail care discussed with Lorenzo Chase MD Jan 28, 2020 08:58
--- NOTE | 2020-01-28 11:09 | Infectious Diseases Prog Note ---
Assessment/Plan Assessment/Plan antibiotics : zosyn A 1. providencia, klebsiella, e.coli pneumonia 2. renal failure 3. respiratory failure 4. intracranial hemorrhage 5. paraplegia 6. leucocytosis increased 7. COVID 19 test negative x 2 8. gangrene of feet bilaterally P 1. continue zosyn 2 more days 2. will follow up cultures Subjective ROS Limited/Unobtainable: Yes Allergies: Coded Allergies: No Known Allergies (Unverified , 10/07/19) Objective Vital Signs Last 24 Hour Vital Signs Date Time Temp Pulse Resp B/P (MAP) Pulse Ox O2 Delivery O2 Flow Rate FiO2 01/28/20 08:00 67 01/28/20 08:00 Mechanical Ventilator 01/28/20 08:00 30 01/28/20 07:58 68 27 30 01/28/20 07:47 97.3 68 26 144/80 (101) 100 01/28/20 04:00 67 01/28/20 04:00 30 01/28/20 04:00 Mechanical Ventilator 01/28/20 04:00 97.5 66 26 128/73 (91) 100 01/28/20 03:10 69 25 30 01/28/20 00:00 Mechanical Ventilator 01/28/20 00:00 67 01/28/20 00:00 30 01/28/20 00:00 97.6 65 22 125/64 (84) 100 01/27/20 22:59 72 27 30 01/27/20 20:26 72 28 30 01/27/20 20:00 72 01/27/20 20:00 30 01/27/20 20:00 98.2 75 22 137/73 (94) 99 01/27/20 20:00 Mechanical Ventilator 01/27/20 16:00 Mechanical Ventilator 01/27/20 16:00 97.9 76 25 141/72 (95) 100 01/27/20 16:00 30 01/27/20 16:00 75 01/27/20 15:20 76 27 30 01/27/20 12:00 Mechanical Ventilator 01/27/20 12:00 98.2 75 25 142/70 (94) 100 01/27/20 12:00 73 01/27/20 12:00 30 01/27/20 11:20 75 29 30 Height (Feet): 5 Height (Inches): 5.00 Weight (Pounds): 179 HEENT: status post trach Respiratory/Chest: lungs clear Cardiovascular: normal rate, regular rhythm, no gallop/murmur Abdomen: soft, non tender, other - GT Extremities: no edema, other - necrotic feet bilaterally Laboratory Tests Test 01/28/20 03:15 White Blood Count 22.4 K/UL (4.8-10.8) *H Red Blood Count 3.18 M/UL (4.70-6.10) L Hemoglobin 9.4 G/DL (14.2-18.0) L Hematocrit 29.7 % (42.0-52.0) L Mean Corpuscular Volume 93 FL (80-99) Mean Corpuscular Hemoglobin 29.6 PG (27.0-31.0) Mean Corpuscular Hemoglobin Concent 31.7 G/DL (32.0-36.0) L Red Cell Distribution Width 17.6 % (11.6-14.8) H Platelet Count 128 K/UL (150-450) L Mean Platelet Volume 12.4 FL (6.5-10.1) H Neutrophils (%) (Auto) % (45.0-75.0) Lymphocytes (%) (Auto) % (20.0-45.0) Monocytes (%) (Auto) % (1.0-10.0) Eosinophils (%) (Auto) % (0.0-3.0) Basophils (%) (Auto) % (0.0-2.0) Differential Total Cells Counted 100 Neutrophils % (Manual) 81 % (45-75) H Lymphocytes % (Manual) 7 % (20-45) L Monocytes % (Manual) 12 % (1-10) H Eosinophils % (Manual) 0 % (0-3) Basophils % (Manual) 0 % (0-2) Band Neutrophils 0 % (0-8) Platelet Estimate Decreased L Platelet Morphology Normal Hypochromasia 2+ Anisocytosis 1+ Sodium Level 144 MMOL/L (136-145) Potassium Level 3.5 MMOL/L (3.5-5.1) Chloride Level 113 MMOL/L (98-107) H Carbon Dioxide Level 12 MMOL/L (21-32) L Anion Gap 19 mmol/L (5-15) H Blood Urea Nitrogen 111 mg/dL (7-18) H Creatinine 4.5 MG/DL (0.55-1.30) H Estimat Glomerular Filtration Rate 16.7 mL/min (>60) Glucose Level 173 MG/DL (74-106) H Calcium Level 8.9 MG/DL (8.5-10.1) Total Bilirubin 1.5 MG/DL (0.2-1.0) H Direct Bilirubin 1.2 MG/DL (0.0-0.3) H Aspartate Amino Transf (AST/SGOT) 78 U/L (15-37) H Alanine Aminotransferase (ALT/SGPT) 116 U/L (12-78) H Alkaline Phosphatase 220 U/L (46-116) H Total Protein 5.5 G/DL (6.4-8.2) L Albumin < 0.6 G/DL (3.4-5.0) L Globulin 5.4 g/dL Current Medications Medications (Trade) Dose Ordered Sig/[place] Route PRN Reason Start Time Stop Time Status Last Admin Dose Admin Al Hydroxide/Mg Hydroxide (Mylanta) 30 ml QIDPRN PRN GT stomach upset 01/14/20 16:45 02/13/20 16:44 Artificial Tears (Akwa-Tears) 1 drop EVERY 12 HOURS BOTH EYES 01/14/20 21:00 02/13/20 20:59 01/28/20 08:18 Dextrose (Dextrose 50%) 25 ml Q30M PRN IV Hypoglycemia 01/14/20 16:45 04/13/20 16:44 01/20/20 09:08 Dextrose (Dextrose 50%) 50 ml Q30M PRN IV hypoglycemia 01/14/20 16:45 04/13/20 16:44 01/14/20 21:25 Dextrose/ Electrolytes 1,000 ml @ 100 mls/hr Q10H IV 01/27/20 14:00 02/26/20 13:59 01/28/20 10:00 Diphenoxylate HCl/ Atropine (Lomotil) 2.5 mg Q4H PRN ORAL Diarrhea 01/22/20 12:00 02/21/20 11:59 Insulin Aspart (NovoLOG) No Dose Q6HR SUBQ 01/14/20 18:00 04/13/20 17:59 01/28/20 00:28 Loperamide HCl (Imodium) 2 mg Q4H PRN ORAL Diarrhea 01/19/20 16:00 02/16/20 10:29 01/28/20 08:18 Loperamide HCl (Imodium) 2 mg Q6H PRN GT Diarrhea 01/28/20 08:00 02/27/20 07:59 UNV Metoclopramide HCl (Reglan) 5 mg Q8H IVP 01/26/20 10:00 02/25/20 09:59 01/28/20 10:19 Ondansetron HCl (Zofran) 4 mg Q6H PRN IVP Nausea & Vomiting 01/26/20 09:15 02/25/20 09:14 Pantoprazole (Protonix) 40 mg DAILY IVP 01/20/20 09:00 02/19/20 08:59 01/28/20 08:18 Piperacillin Sod/ Tazobactam Sod 3.375 gm/Sodium Chloride 110 ml @ 27.5 mls/hr Q12H IVPB 01/25/20 18:00 02/01/20 17:59 01/28/20 05:57 Sodium Hypochlorite (Dakin's Half Strength) 1 applic DAILY TOPIC 01/15/20 09:00 02/14/20 08:59 01/28/20 08:29 Sodium Citrate (Bicitra) 30 ml EVERY 6 HOURS GT 01/20/20 18:00 02/19/20 17:59 01/28/20 05:56 Zinc Sulfate (Zinc Sulfate) 220 mg DAILY GT 01/15/20 09:00 04/14/20 08:59 01/28/20 08:18 Tony Apple MD Jan 28, 2020 11:09
--- NOTE | 2020-01-28 11:50 | Nephrology Progress Note ---
Assessment/Plan Problem List: (1) Respiratory failure (2) ARF (acute renal failure) (3) Hyponatremia (4) Hyperkalemia (5) Upper GI bleed (6) Pressure sore on sacrum (7) Diarrhea (8) Severe malnutrition Plan diarrhea, reorder iv fluids,BUN/creatinine 70/.91 11/2019, enteral hydration , reji likely from infection, severe hypoalbuminemia and anasarca with poor prognosis Na higher iv adjusted, bicitra started for acidosis, add bicarb to iv , emesis today Subjective ROS Limited/Unobtainable: Yes Objective Objective Last 24 Hour Vital Signs Date Time Temp Pulse Resp B/P (MAP) Pulse Ox O2 Delivery O2 Flow Rate FiO2 01/28/20 08:00 67 01/28/20 08:00 Mechanical Ventilator 01/28/20 08:00 30 01/28/20 07:58 68 27 30 01/28/20 07:47 97.3 68 26 144/80 (101) 100 01/28/20 04:00 67 01/28/20 04:00 30 01/28/20 04:00 Mechanical Ventilator 01/28/20 04:00 97.5 66 26 128/73 (91) 100 01/28/20 03:10 69 25 30 01/28/20 00:00 Mechanical Ventilator 01/28/20 00:00 67 01/28/20 00:00 30 01/28/20 00:00 97.6 65 22 125/64 (84) 100 01/27/20 22:59 72 27 30 01/27/20 20:26 72 28 30 01/27/20 20:00 72 01/27/20 20:00 30 01/27/20 20:00 98.2 75 22 137/73 (94) 99 01/27/20 20:00 Mechanical Ventilator 01/27/20 16:00 Mechanical Ventilator 01/27/20 16:00 97.9 76 25 141/72 (95) 100 01/27/20 16:00 30 01/27/20 16:00 75 01/27/20 15:20 76 27 30 01/27/20 12:00 Mechanical Ventilator 01/27/20 12:00 98.2 75 25 142/70 (94) 100 01/27/20 12:00 73 01/27/20 12:00 30 Intake and Output 01/27/20 01/28/20 19:00 07:00 Intake Total 1650.0 ml 1431.5 ml Output Total 430 ml 300 ml Balance 1220.0 ml 1131.5 ml IV Total 1330.0 ml 1027.5 ml Tube Feeding 220 ml 404 ml Other 100 ml Output Urine Total 350 ml 300 ml Stool Total 80 ml # Bowel Movements 4 1 Laboratory Tests 01/28/20 03:15: White Blood Count 22.4*H, Red Blood Count 3.18L, Hemoglobin 9.4L, Hematocrit 29.7L, Mean Corpuscular Volume 93, Mean Corpuscular Hemoglobin 29.6, Mean Corpuscular Hemoglobin Concent 31.7L, Red Cell Distribution Width 17.6H, Platelet Count 128L, Mean Platelet Volume 12.4H, Neutrophils (%) (Auto) , Lymphocytes (%) (Auto) , Monocytes (%) (Auto) , Eosinophils (%) (Auto) , Basophils (%) (Auto) , Differential Total Cells Counted 100, Neutrophils % ( Manual) 81H, Lymphocytes % (Manual) 7L, Monocytes % (Manual) 12H, Eosinophils % (Manual) 0, Basophils % (Manual) 0, Band Neutrophils 0, Platelet Estimate DecreasedL, Platelet Morphology Normal, Hypochromasia 2+, Anisocytosis 1+, Sodium Level 144, Potassium Level 3.5, Chloride Level 113H, Carbon Dioxide Level 12L, Anion Gap 19H, Blood Urea Nitrogen 111H, Creatinine 4.5H, Estimat Glomerular Filtration Rate 16.7, Glucose Level 173H, Calcium Level 8.9, Total Bilirubin 1.5H, Direct Bilirubin 1.2H, Aspartate Amino Transf (AST/SGOT) 78H, Alanine Aminotransferase (ALT/SGPT) 116H, Alkaline Phosphatase 220H, Total Protein 5.5L, Albumin < 0.6L, Globulin 5.4 Height (Feet): 5 Height (Inches): 5.00 Weight (Pounds): 179 General Appearance: other - on vent Cardiovascular: regular rhythm Respiratory/Chest: rhonchi - bilaterally Abdomen: soft Extremities: moderate edema, other - gangrene Neurologic: unresponsive Martin Yee MD Jan 28, 2020 11:50
[2020-01-28 12:00] VITALS: BP 146/83
[2020-01-28] MEDS: SODIUM BICARBONATE IV SCH (14:08)
[2020-01-28] MEDS: KCL IV SCH (14:08)
[2020-01-28] MEDS: D5W IV SCH (14:08)
--- NOTE | 2020-01-28 15:07 | Surgery Progress Note ---
Surgery Progress Note Subjective Procedure Performed right femoral central venous catheter removal Additional Comments no acute events labs noted exam stable Objective Last 24 Hour Vital Signs Date Time Temp Pulse Resp B/P (MAP) Pulse Ox O2 Delivery O2 Flow Rate FiO2 01/28/20 12:00 49 01/28/20 12:00 97.0 63 29 146/83 (104) 100 01/28/20 12:00 30 01/28/20 11:20 61 24 30 01/28/20 08:00 67 01/28/20 08:00 Mechanical Ventilator 01/28/20 08:00 30 01/28/20 07:58 68 27 30 01/28/20 07:47 97.3 68 26 144/80 (101) 100 01/28/20 04:00 67 01/28/20 04:00 30 01/28/20 04:00 Mechanical Ventilator 01/28/20 04:00 97.5 66 26 128/73 (91) 100 01/28/20 03:10 69 25 30 01/28/20 00:00 Mechanical Ventilator 01/28/20 00:00 67 01/28/20 00:00 30 01/28/20 00:00 97.6 65 22 125/64 (84) 100 01/27/20 22:59 72 27 30 01/27/20 20:26 72 28 30 01/27/20 20:00 72 01/27/20 20:00 30 01/27/20 20:00 98.2 75 22 137/73 (94) 99 01/27/20 20:00 Mechanical Ventilator 01/27/20 16:00 Mechanical Ventilator 01/27/20 16:00 97.9 76 25 141/72 (95) 100 01/27/20 16:00 30 01/27/20 16:00 75 01/27/20 15:20 76 27 30 I&O Intake and Output 01/27/20 01/28/20 19:00 07:00 Intake Total 1650.0 ml 1431.5 ml Output Total 430 ml 300 ml Balance 1220.0 ml 1131.5 ml IV Total 1330.0 ml 1027.5 ml Tube Feeding 220 ml 404 ml Other 100 ml Output Urine Total 350 ml 300 ml Stool Total 80 ml # Bowel Movements 4 1 Dressing: other Wound: other Drains: other Cardiovascular: RSR Respiratory: decreased breath sounds Abdomen: soft, present bowel sounds, non-distended Extremities: edema, no tenderness, no cyanosis, other Laboratory Tests Test 01/28/20 03:15 White Blood Count 22.4 K/UL (4.8-10.8) *H Red Blood Count 3.18 M/UL (4.70-6.10) L Hemoglobin 9.4 G/DL (14.2-18.0) L Hematocrit 29.7 % (42.0-52.0) L Mean Corpuscular Volume 93 FL (80-99) Mean Corpuscular Hemoglobin 29.6 PG (27.0-31.0) Mean Corpuscular Hemoglobin Concent 31.7 G/DL (32.0-36.0) L Red Cell Distribution Width 17.6 % (11.6-14.8) H Platelet Count 128 K/UL (150-450) L Mean Platelet Volume 12.4 FL (6.5-10.1) H Neutrophils (%) (Auto) % (45.0-75.0) Lymphocytes (%) (Auto) % (20.0-45.0) Monocytes (%) (Auto) % (1.0-10.0) Eosinophils (%) (Auto) % (0.0-3.0) Basophils (%) (Auto) % (0.0-2.0) Differential Total Cells Counted 100 Neutrophils % (Manual) 81 % (45-75) H Lymphocytes % (Manual) 7 % (20-45) L Monocytes % (Manual) 12 % (1-10) H Eosinophils % (Manual) 0 % (0-3) Basophils % (Manual) 0 % (0-2) Band Neutrophils 0 % (0-8) Platelet Estimate Decreased L Platelet Morphology Normal Hypochromasia 2+ Anisocytosis 1+ Sodium Level 144 MMOL/L (136-145) Potassium Level 3.5 MMOL/L (3.5-5.1) Chloride Level 113 MMOL/L (98-107) H Carbon Dioxide Level 12 MMOL/L (21-32) L Anion Gap 19 mmol/L (5-15) H Blood Urea Nitrogen 111 mg/dL (7-18) H Creatinine 4.5 MG/DL (0.55-1.30) H Estimat Glomerular Filtration Rate 16.7 mL/min (>60) Glucose Level 173 MG/DL (74-106) H Calcium Level 8.9 MG/DL (8.5-10.1) Total Bilirubin 1.5 MG/DL (0.2-1.0) H Direct Bilirubin 1.2 MG/DL (0.0-0.3) H Aspartate Amino Transf (AST/SGOT) 78 U/L (15-37) H Alanine Aminotransferase (ALT/SGPT) 116 U/L (12-78) H Alkaline Phosphatase 220 U/L (46-116) H Total Protein 5.5 G/DL (6.4-8.2) L Albumin < 0.6 G/DL (3.4-5.0) L Globulin 5.4 g/dL Plan Problems: (1) Hyponatremia (2) ARF (acute renal failure) (3) Hyperkalemia (4) Pressure sore on sacrum Assessment & Plan: Pt presented on admission with Sacral Pressure injury and Necrosis Both Both R lower ext, R foot and L foot. Generalized edema noted. Both upper ext noted to have multiple serous blisters ,some of which are weeping serous exudate. Full thickness Sacral Pressure Injury with undermined Borders. Base of wound is 75% loose necrotic tissue,25% bree. Bone exposure at base of wound. Area of necrosis noted at distal aspect of wound in space between wound and anus.Edges are macerated. Wound is malodorous.(L)9.5cm x (W)9.2cm x (D)2.9cm,undermining clockwise 10-3 by 3.8cm @12 o'clock. Scattered areas of hyperpigmentation noted to R and L clefts of buttocks. Unable to determine exudate as pt is continuously oozing large amt of semi soft black stool and leaking into wound because of close proximity to his rectum. At upper, R gluteal cheek is additional Pressure Injury with small amt Biofilm at base of wound. Edges are pink and adherent to base of wound. No exudate noted.(L)3cm x (W)2.6cm. Medially to distal Tibia,and extending to R foot is necrotic and malodorous.Wound is partially opened at posterior R tibia but is dry . L foot is necrotic and malodorous. No exudate noted. Tx.Plan: Cleanse Sacral wound with Dakin's 0.25% archana.. Loosely Pack wound with Dakin's moistened Kerlix.Apply Moisture Barrier Paste periwound.Cover with Optifoam drsg.Change Daily and PRN. Cleanse R lower ext and R foot with Dakin's 0.25% Archana. Cover wounds with ABD Pads.Wrap with Kerlix Daily and prn. Cleanse L foot Wounds with Dakin's 0.25% Archana. Cover wounds with ABD Pads and wrap with Kerlix Daily and prn. soft collar placed (5) Upper GI bleed Assessment & Plan: Patient with sepsis, abnormal labs, GI bleed, pending COVID eval. Labs noted. Exam reviewed. Chest x-ray noted as below. Discussed with GI. Plan for endoscopy once COVID status evaluated. Trend hemoglobin for now transfuse PRN. G-tube is functional and okay for medications and will plan tube feeds accordingly. No acute surgical intervention as patient is actively bleeding. Proton pump inhibitor recommended and Rx as written. Will follow with recommendations thank you for let me participate in patient's care plt low anemia prognosis guarded no active GI bleeding noted Status post PEG Tolerating tube feeds but still having diarrhea Difficult with rectal tube slides right out likely from spinal injury Anasarca stable No active bleeding line Free currently will monitor closely There is a tracheostomy in place. Vascularity is normal. Hazy densities in the lung bases may be layering effusions. Cardiac and mediastinal silhouette are within normal limits. The bony thorax appear unremarkable. line removed will monitor for bleeding IMPRESSION: Bibasilar hazy densities perhaps layering effusions. right fem line not functional noted manipulation as suture was dislodged. line replaced 1. Two or three gastric AVMs. 2. Ulcer with a small visible vessel, status post gold probe bipolar cauterization. DAILY ESTIMATED NEEDS: Needs based on Critical Care, Wounds, TR / 61kg 25-30 kcals/kg [id number] total kcals 0.8-1.25 (increase w/ renal improvement) g protein/kg 49-76 g total protein 25-30 mL/kg 0601-9901 total fluid mLs NUTRITION DIAGNOSIS: * Swallowing difficulty R/T respiratory status, dysphagia as evidenced by trach/vent dep, PEG dep. * Increased kcal/prot intake needs R/T wound healing as evidenced by admtited w/ multiple wounds including full thickness wound @ sacrum, pressure Injury with small amt Biofilm at base of wound @ uppera R gluteal cheek, necrotic wound @ medial to distal Tibia,and extending to R foot and L foot * Altered nutrition related lab R/T TR as evidenced by elev BUN (215-> 96), elev creat (5.2->4.2), low Na (124 ->148), elev K (6.7 -> wnl) CURRENT TF:Nepro @ 37ml/hr x 24 hrs ENTERAL NUTRITION RECOMMENDATIONS: Nepro @ 37ml/hr x 24 hrs to provide 888ml, 1598kcal, 72g prot, 646ml free water * Maintain current TF -> rec Nepro at this time given TR (Creat 5.2-> 4.3) w/ elev K upon adm * HOB over 30 degrees/ water flush per MD W/ CONTINUED DIARRHEA, consider trial of elemental formula of Vital AF 1.2 @ goal rate of 45ml/hr x 24 hrs to provide 1080ml, 1296kcal, 81g prot, 876lm free water: will meet 85% est kcal and 106% est prot needs. -----> W/ non renal TF, monitor lytes closely (K wnl at this time, phos level not available) ADDITIONAL RECOMMENDATIONS: * Per SNF: HT=62" WT= 135lbs (12/25/19) * Monitor renal fxn and lytes (Creat 5.3 -> 4.1) -> check phos and mag (not checked since adm) * Wound healing: Once TF well tolerated at goal, add Ajay BID * Monitor for hypoglycemia: no further episodes (now 70's) * Add probiotics to help improve gut ewelina- + diarrhea -> consider trial of elemental TF of Vital AF Study is somewhat limited due to anasarca and overlying bowel gas, midline gastrostomy bandages. Gallbladder demonstrates sludge and tiny stones. The gallbladder wall is mildly thickened. Sonographic Velázquez sign could not be assessed. Common bile duct measures 4 mm in diameter. No intrahepatic biliary ductal dilatation. The liver is enlarged. It demonstrates normal echogenicity. No focal abnormality. Small amount of ascites fluid is seen at the anterior liver surface and adjacent to the gallbladder, left upper quadrant, and in the pelvis Portal vein and hepatic veins are patent. Pancreas is obscured by bowel gas. Spleen is unremarkable. Left kidney measures 11.4 cm in length. Right kidney measures 10.9 cm length. Both kidneys demonstrate normal echogenicity. There is no hydronephrosis. No focal abnormality . Abdominal aorta is partially obscured by bowel gas, visualized portions are non-aneurysmal . There are small bilateral pleural effusions (6) Severe malnutrition Assessment & Plan: emesis tf on hold monitor residuals (7) Respiratory failure Javid Singh Jan 28, 2020 15:07
[2020-01-28 16:00] VITALS: BP 132/78
[2020-01-28 20:00] VITALS: BP 139/71
[2020-01-29] VITALS: BP 138/75
[2020-01-29] MEDS: Metoclopramide 10mg/2ml Inj IVP SCH ×3 (01:36→17:31)
[2020-01-29] MEDS: D5W IV SCH ×3 (01:36→23:12)
[2020-01-29] MEDS: SODIUM BICARBONATE IV SCH ×3 (01:36→23:12)
[2020-01-29] MEDS: KCL IV SCH ×3 (01:36→23:12)
[2020-01-29 04:00] VITALS: BP 127/68
[2020-01-29 05:07] LABS: HEMATOCRIT 29.7 % (42.0-52.0); MEAN CORPUSCULAR VOLUME 94 FL (80-99); PLATELET COUNT 108 K/UL (150-450); RED BLOOD COUNT 3.16 M/UL (4.70-6.10)
[2020-01-29 05:35] LABS: WHITE BLOOD COUNT 39.2 K/UL (4.8-10.8)
[2020-01-29 05:54] LABS: ALANINE AMINOTRANSFERASE 81 U/L (12-78); ALKALINE PHOSPHATASE 187 U/L (46-116); ANION GAP 19 mmol/L (5-15); ASPARTATE AMINO TRANSFERASE 49 U/L (15-37); BILIRUBIN,TOTAL 1.5 MG/DL (0.2-1.0); BLOOD UREA NITROGEN 110 mg/dL (7-18); CALCIUM 8.5 MG/DL (8.5-10.1); CARBON DIOXIDE 15 MMOL/L (21-32); CHLORIDE 112 MMOL/L (98-107); CREATININE 4.4 MG/DL (0.55-1.30); POTASSIUM 3.7 MMOL/L (3.5-5.1); SODIUM 146 MMOL/L (136-145)
[2020-01-29] MEDS: Piperacillin/Tazobactam 3.375 GM in NS 110 ML IVPB SCH ×2 (06:08→17:31)
[2020-01-29] MEDS: Sodium Citrate 30ml GT SCH ×4 (06:10→23:18)
[2020-01-29] MEDS: Insulin NovoLOG Flexpen S/S (Mod) SUBQ SCH ×4 (06:12→23:19)
[2020-01-29 06:13] LABS: BILIRUBIN,DIRECT 1.1 MG/DL (0.0-0.3)
[2020-01-29 06:14] LABS: ALBUMIN 0.4 G/DL (3.4-5.0)
[2020-01-29 08:00] VITALS: BP 123/86
[2020-01-29] MEDS: Pantoprazole Inj IVP SCH (08:13)
[2020-01-29] MEDS: Zinc Sulfate 220mg GT SCH (08:13)
[2020-01-29] MEDS: Dakin's 0.25% (Half Strength) 16oz TOPIC SCH (08:14)
--- NOTE | 2020-01-29 08:24 | General Progress Note ---
Assessment/Plan Assessment/Plan: sepsis anemia GIB thrombocytopenia hyponatremia ARF DM dysphagia with GT s/p EGD/PEG GTF will resume lomotil prn imodium prn ppi elevated LFTS>>> stable us reviewed fu abd CT, reviewed protonix daily on Imodium will fu Subjective ROS Limited/Unobtainable: No Allergies: Coded Allergies: No Known Allergies (Unverified , 10/07/19) Objective Last 24 Hour Vital Signs Date Time Temp Pulse Resp B/P (MAP) Pulse Ox O2 Delivery O2 Flow Rate FiO2 01/29/20 07:20 79 30 30 01/29/20 04:00 Mechanical Ventilator 01/29/20 04:00 30 01/29/20 04:00 71 01/29/20 04:00 97.2 72 23 127/68 (87) 99 01/29/20 02:53 72 28 30 01/29/20 00:00 97.8 70 22 138/75 (96) 99 01/29/20 00:00 73 01/29/20 00:00 Mechanical Ventilator 01/29/20 00:00 30 01/28/20 23:31 77 25 30 01/28/20 20:00 98.1 66 25 139/71 (93) 100 01/28/20 20:00 Mechanical Ventilator 01/28/20 20:00 74 01/28/20 20:00 30 01/28/20 19:37 79 31 30 01/28/20 16:00 30 01/28/20 16:00 96.8 64 29 132/78 (96) 100 01/28/20 16:00 Mechanical Ventilator 01/28/20 16:00 65 01/28/20 15:40 62 24 30 01/28/20 12:00 49 01/28/20 12:00 Mechanical Ventilator 01/28/20 12:00 97.0 63 29 146/83 (104) 100 01/28/20 12:00 30 01/28/20 11:20 61 24 30 Intake and Output 01/28/20 01/29/20 19:00 07:00 Intake Total 1640.25 ml 1407 ml Output Total 250 ml 400 ml Balance 1390.25 ml 1007 ml IV Total 1096.25 ml 1000 ml Tube Feeding 444 ml 407 ml Other 100 ml Output Urine Total 250 ml 400 ml # Voids 1 # Bowel Movements 4 2 Laboratory Tests 01/29/20 03:35: White Blood Count 39.2#*H, Red Blood Count 3.16L, Hemoglobin 9.0L, Hematocrit 29.7L, Mean Corpuscular Volume 94, Mean Corpuscular Hemoglobin 28.5, Mean Corpuscular Hemoglobin Concent 30.4L, Red Cell Distribution Width 18.0H, Platelet Count 108L, Mean Platelet Volume 12.6H, Neutrophils (%) (Auto) , Lymphocytes (%) (Auto) , Monocytes (%) (Auto) , Eosinophils (%) (Auto) , Basophils (%) (Auto) , Neutrophils % (Manual) [Pending], Lymphocytes % (Manual) [Pending], Platelet Estimate [Pending], Platelet Morphology [Pending], Sodium Level 146H, Potassium Level 3.7, Chloride Level 112H, Carbon Dioxide Level 15L, Anion Gap 19H, Blood Urea Nitrogen 110H, Creatinine 4.4H, Estimat Glomerular Filtration Rate 17.1, Glucose Level 201H, Calcium Level 8.5, Total Bilirubin 1.5H, Direct Bilirubin 1.1H, Aspartate Amino Transf (AST/SGOT) 49H, Alanine Aminotransferase (ALT/SGPT) 81H, Alkaline Phosphatase 187H, Total Protein 5.2L, Albumin 0.4L, Globulin 4.8 Height (Feet): 5 Height (Inches): 5.00 Weight (Pounds): 180 General Appearance: no apparent distress EENT: normal ENT inspection Neck: supple Cardiovascular: normal rate Respiratory/Chest: decreased breath sounds Abdomen: soft, hypoactive bowel sounds Extremities: non-tender Toni Mckenzie MD Jan 29, 2020 08:24
--- NOTE | 2020-01-29 09:35 | Pulmonology Progress Note ---
Subjective ROS Limited/Unobtainable: Yes Constitutional: Denies: fever Gastrointestinal/Abdominal: Reports: diarrhea Allergies: Coded Allergies: No Known Allergies (Unverified , 10/07/19) All Systems: reviewed and negative except above Subjective care noted on vent no significant improvement renal function poor wbc worsening labs noted updated Objective Last 24 Hour Vital Signs Date Time Temp Pulse Resp B/P (MAP) Pulse Ox O2 Delivery O2 Flow Rate FiO2 01/29/20 08:00 Mechanical Ventilator 01/29/20 08:00 30 01/29/20 08:00 98.2 91 17 123/86 (98) 100 91 01/29/20 07:20 79 30 30 01/29/20 04:00 Mechanical Ventilator 01/29/20 04:00 30 01/29/20 04:00 71 01/29/20 04:00 97.2 72 23 127/68 (87) 99 01/29/20 02:53 72 28 30 01/29/20 00:00 97.8 70 22 138/75 (96) 99 01/29/20 00:00 73 01/29/20 00:00 Mechanical Ventilator 01/29/20 00:00 30 01/28/20 23:31 77 25 30 01/28/20 20:00 98.1 66 25 139/71 (93) 100 01/28/20 20:00 Mechanical Ventilator 01/28/20 20:00 74 01/28/20 20:00 30 01/28/20 19:37 79 31 30 01/28/20 16:00 30 01/28/20 16:00 96.8 64 29 132/78 (96) 100 01/28/20 16:00 Mechanical Ventilator 01/28/20 16:00 65 01/28/20 15:40 62 24 30 01/28/20 12:00 49 01/28/20 12:00 Mechanical Ventilator 01/28/20 12:00 97.0 63 29 146/83 (104) 100 01/28/20 12:00 30 01/28/20 11:20 61 24 30 Intake and Output 01/28/20 01/29/20 19:00 07:00 Intake Total 1640.25 ml 1407 ml Output Total 250 ml 400 ml Balance 1390.25 ml 1007 ml IV Total 1096.25 ml 1000 ml Tube Feeding 444 ml 407 ml Other 100 ml Output Urine Total 250 ml 400 ml # Voids 1 # Bowel Movements 4 2 Objective WDWN trach clear breath sounds bilaterally without rhonchi or wheeze [id number] without MRG NABS nontender no HSM no CCE poor LOC reviewed and edited Laboratory Tests 01/29/20 03:35: White Blood Count 39.2#*H, Red Blood Count 3.16L, Hemoglobin 9.0L, Hematocrit 29.7L, Mean Corpuscular Volume 94, Mean Corpuscular Hemoglobin 28.5, Mean Corpuscular Hemoglobin Concent 30.4L, Red Cell Distribution Width 18.0H, Platelet Count 108L, Mean Platelet Volume 12.6H, Neutrophils (%) (Auto) , Lymphocytes (%) (Auto) , Monocytes (%) (Auto) , Eosinophils (%) (Auto) , Basophils (%) (Auto) , Neutrophils % (Manual) [Pending], Lymphocytes % (Manual) [Pending], Platelet Estimate [Pending], Platelet Morphology [Pending], Sodium Level 146H, Potassium Level 3.7, Chloride Level 112H, Carbon Dioxide Level 15L, Anion Gap 19H, Blood Urea Nitrogen 110H, Creatinine 4.4H, Estimat Glomerular Filtration Rate 17.1, Glucose Level 201H, Calcium Level 8.5, Total Bilirubin 1.5H, Direct Bilirubin 1.1H, Aspartate Amino Transf (AST/SGOT) 49H, Alanine Aminotransferase (ALT/SGPT) 81H, Alkaline Phosphatase 187H, Total Protein 5.2L, Albumin 0.4L, Globulin 4.8 Current Medications Medications (Trade) Dose Ordered Sig/[place] Route PRN Reason Start Time Stop Time Status Last Admin Dose Admin Al Hydroxide/Mg Hydroxide (Mylanta) 30 ml QIDPRN PRN GT stomach upset 01/14/20 16:45 02/13/20 16:44 Artificial Tears (Akwa-Tears) 1 drop EVERY 12 HOURS BOTH EYES 01/14/20 21:00 02/13/20 20:59 01/29/20 08:14 Dextrose (Dextrose 50%) 25 ml Q30M PRN IV Hypoglycemia 01/14/20 16:45 04/13/20 16:44 01/20/20 09:08 Dextrose (Dextrose 50%) 50 ml Q30M PRN IV hypoglycemia 01/14/20 16:45 04/13/20 16:44 01/14/20 21:25 Diphenoxylate HCl/ Atropine (Lomotil) 2.5 mg Q4H PRN ORAL Diarrhea 01/22/20 12:00 02/21/20 11:59 01/28/20 17:38 Insulin Aspart (NovoLOG) No Dose Q6HR SUBQ 01/14/20 18:00 04/13/20 17:59 01/29/20 06:12 Loperamide HCl (Imodium) 2 mg Q6H PRN GT Diarrhea 01/28/20 14:18 02/27/20 14:17 Metoclopramide HCl (Reglan) 5 mg Q8H IVP 01/26/20 10:00 02/25/20 09:59 01/29/20 09:32 Ondansetron HCl (Zofran) 4 mg Q6H PRN IVP Nausea & Vomiting 01/26/20 09:15 02/25/20 09:14 Pantoprazole (Protonix) 40 mg DAILY IVP 01/20/20 09:00 02/19/20 08:59 01/29/20 08:13 Piperacillin Sod/ Tazobactam Sod 3.375 gm/Sodium Chloride 110 ml @ 27.5 mls/hr Q12H IVPB 01/25/20 18:00 02/01/20 17:59 01/29/20 06:08 Sodium Bicarbonate 100 ml/Dextrose/ Electrolytes 1,100 ml @ 100 mls/hr Q11H IV 01/28/20 14:00 02/27/20 13:59 01/29/20 01:36 Sodium Hypochlorite (Dakin's Half Strength) 1 applic DAILY TOPIC 01/15/20 09:00 02/14/20 08:59 01/29/20 08:14 Sodium Citrate (Bicitra) 30 ml EVERY 6 HOURS GT 01/20/20 18:00 02/19/20 17:59 01/29/20 06:10 Zinc Sulfate (Zinc Sulfate) 220 mg DAILY GT 01/15/20 09:00 04/14/20 08:59 01/29/20 08:13 Assessment/Plan Assessment/Plan IMPRESSION chronic respiratory failure Acute on chronic renal failure elevated K anemia GIB leukocytosis possible sepsis oral bleeding diarrhea transaminitis PLAN ID , GI and renal clearance vent as is monitor vitals now again with worsening wbc and not improving cxr with increased congestion snf meds full code/ d/w again as to poor prognosis prognosis very poor for recovery not stable for snf evaluate for rueda impression, plan, and exam edited and reviewed in detail care discussed with Lorenzo Chase MD Jan 29, 2020 09:35
--- NOTE | 2020-01-29 11:07 | Infectious Diseases Prog Note ---
Assessment/Plan Assessment/Plan antibiotics : zosyn A 1. providencia, klebsiella, e.coli pneumonia 2. renal failure 3. respiratory failure 4. intracranial hemorrhage 5. paraplegia 6. leucocytosis increased 7. COVID 19 test negative x 2 8. gangrene of feet bilaterally P 1. continue zosyn 1 more day 2. will follow up cultures Subjective ROS Limited/Unobtainable: Yes Allergies: Coded Allergies: No Known Allergies (Unverified , 10/07/19) Objective Vital Signs Last 24 Hour Vital Signs Date Time Temp Pulse Resp B/P (MAP) Pulse Ox O2 Delivery O2 Flow Rate FiO2 01/29/20 10:40 72 27 30 01/29/20 08:00 Mechanical Ventilator 01/29/20 08:00 30 01/29/20 08:00 98.2 91 17 123/86 (98) 100 91 01/29/20 07:41 78 01/29/20 07:20 79 30 30 01/29/20 04:00 Mechanical Ventilator 01/29/20 04:00 30 01/29/20 04:00 71 01/29/20 04:00 97.2 72 23 127/68 (87) 99 01/29/20 02:53 72 28 30 01/29/20 00:00 97.8 70 22 138/75 (96) 99 01/29/20 00:00 73 01/29/20 00:00 Mechanical Ventilator 01/29/20 00:00 30 01/28/20 23:31 77 25 30 01/28/20 20:00 98.1 66 25 139/71 (93) 100 01/28/20 20:00 Mechanical Ventilator 01/28/20 20:00 74 01/28/20 20:00 30 01/28/20 19:37 79 31 30 01/28/20 16:00 30 01/28/20 16:00 96.8 64 29 132/78 (96) 100 01/28/20 16:00 Mechanical Ventilator 01/28/20 16:00 65 01/28/20 15:40 62 24 30 01/28/20 12:00 49 01/28/20 12:00 Mechanical Ventilator 01/28/20 12:00 97.0 63 29 146/83 (104) 100 01/28/20 12:00 30 01/28/20 11:20 61 24 30 Height (Feet): 5 Height (Inches): 5.00 Weight (Pounds): 180 HEENT: status post trach Respiratory/Chest: lungs clear Cardiovascular: normal rate, regular rhythm, no gallop/murmur Abdomen: soft, non tender, other - GT Extremities: no edema, other - bilateral necrotic feet Laboratory Tests Test 01/29/20 03:35 White Blood Count 39.2 K/UL (4.8-10.8) #*H Red Blood Count 3.16 M/UL (4.70-6.10) L Hemoglobin 9.0 G/DL (14.2-18.0) L Hematocrit 29.7 % (42.0-52.0) L Mean Corpuscular Volume 94 FL (80-99) Mean Corpuscular Hemoglobin 28.5 PG (27.0-31.0) Mean Corpuscular Hemoglobin Concent 30.4 G/DL (32.0-36.0) L Red Cell Distribution Width 18.0 % (11.6-14.8) H Platelet Count 108 K/UL (150-450) L Mean Platelet Volume 12.6 FL (6.5-10.1) H Neutrophils (%) (Auto) % (45.0-75.0) Lymphocytes (%) (Auto) % (20.0-45.0) Monocytes (%) (Auto) % (1.0-10.0) Eosinophils (%) (Auto) % (0.0-3.0) Basophils (%) (Auto) % (0.0-2.0) Differential Total Cells Counted 100 Neutrophils % (Manual) 89 % (45-75) H Lymphocytes % (Manual) 7 % (20-45) L Monocytes % (Manual) 3 % (1-10) Eosinophils % (Manual) 1 % (0-3) Basophils % (Manual) 0 % (0-2) Band Neutrophils 0 % (0-8) Platelet Estimate Decreased L Platelet Morphology Normal Hypochromasia 1+ Anisocytosis 1+ Sodium Level 146 MMOL/L (136-145) H Potassium Level 3.7 MMOL/L (3.5-5.1) Chloride Level 112 MMOL/L (98-107) H Carbon Dioxide Level 15 MMOL/L (21-32) L Anion Gap 19 mmol/L (5-15) H Blood Urea Nitrogen 110 mg/dL (7-18) H Creatinine 4.4 MG/DL (0.55-1.30) H Estimat Glomerular Filtration Rate 17.1 mL/min (>60) Glucose Level 201 MG/DL (74-106) H Calcium Level 8.5 MG/DL (8.5-10.1) Total Bilirubin 1.5 MG/DL (0.2-1.0) H Direct Bilirubin 1.1 MG/DL (0.0-0.3) H Aspartate Amino Transf (AST/SGOT) 49 U/L (15-37) H Alanine Aminotransferase (ALT/SGPT) 81 U/L (12-78) H Alkaline Phosphatase 187 U/L (46-116) H Total Protein 5.2 G/DL (6.4-8.2) L Albumin 0.4 G/DL (3.4-5.0) L Globulin 4.8 g/dL Current Medications Medications (Trade) Dose Ordered Sig/[place] Route PRN Reason Start Time Stop Time Status Last Admin Dose Admin Al Hydroxide/Mg Hydroxide (Mylanta) 30 ml QIDPRN PRN GT stomach upset 01/14/20 16:45 02/13/20 16:44 Artificial Tears (Akwa-Tears) 1 drop EVERY 12 HOURS BOTH EYES 01/14/20 21:00 02/13/20 20:59 01/29/20 08:14 Dextrose (Dextrose 50%) 25 ml Q30M PRN IV Hypoglycemia 01/14/20 16:45 04/13/20 16:44 01/20/20 09:08 Dextrose (Dextrose 50%) 50 ml Q30M PRN IV hypoglycemia 01/14/20 16:45 04/13/20 16:44 01/14/20 21:25 Diphenoxylate HCl/ Atropine (Lomotil) 2.5 mg Q4H PRN ORAL Diarrhea 01/22/20 12:00 02/21/20 11:59 01/28/20 17:38 Insulin Aspart (NovoLOG) No Dose Q6HR SUBQ 01/14/20 18:00 04/13/20 17:59 01/29/20 06:12 Loperamide HCl (Imodium) 2 mg Q6H PRN GT Diarrhea 01/28/20 14:18 02/27/20 14:17 01/29/20 10:56 Metoclopramide HCl (Reglan) 5 mg Q8H IVP 01/26/20 10:00 02/25/20 09:59 01/29/20 09:32 Ondansetron HCl (Zofran) 4 mg Q6H PRN IVP Nausea & Vomiting 01/26/20 09:15 02/25/20 09:14 Pantoprazole (Protonix) 40 mg DAILY IVP 01/20/20 09:00 02/19/20 08:59 01/29/20 08:13 Piperacillin Sod/ Tazobactam Sod 3.375 gm/Sodium Chloride 110 ml @ 27.5 mls/hr Q12H IVPB 01/25/20 18:00 02/01/20 17:59 01/29/20 06:08 Sodium Bicarbonate 100 ml/Dextrose/ Electrolytes 1,100 ml @ 100 mls/hr Q11H IV 01/28/20 14:00 02/27/20 13:59 01/29/20 01:36 Sodium Hypochlorite (Dakin's Half Strength) 1 applic DAILY TOPIC 01/15/20 09:00 02/14/20 08:59 01/29/20 08:14 Sodium Citrate (Bicitra) 30 ml EVERY 6 HOURS GT 01/20/20 18:00 02/19/20 17:59 01/29/20 06:10 Zinc Sulfate (Zinc Sulfate) 220 mg DAILY GT 01/15/20 09:00 04/14/20 08:59 01/29/20 08:13 Tony Apple MD Jan 29, 2020 11:07
[2020-01-29 12:00] VITALS: BP 127/67
[2020-01-29 12:33] LABS: HEMATOCRIT 28.8 % (42.0-52.0); HEMOGLOBIN 8.9 G/DL (14.2-18.0); MEAN CORPUSCULAR VOLUME 92 FL (80-99); PLATELET COUNT 109 K/UL (150-450); RED BLOOD COUNT 3.13 M/UL (4.70-6.10); RED CELL DISTRIBUTION WIDTH 18.3 % (11.6-14.8)
[2020-01-29 12:47] LABS: WHITE BLOOD COUNT 36.4 K/UL (4.8-10.8)
--- NOTE | 2020-01-29 13:31 | Surgery Progress Note ---
Surgery Progress Note Subjective Procedure Performed right femoral central venous catheter removal Additional Comments emesis collar saturated new collar ordered Objective Last 24 Hour Vital Signs Date Time Temp Pulse Resp B/P (MAP) Pulse Ox O2 Delivery O2 Flow Rate FiO2 01/29/20 12:00 Mechanical Ventilator 01/29/20 12:00 97.7 70 18 127/67 (87) 100 01/29/20 12:00 73 01/29/20 12:00 30 01/29/20 10:40 72 27 30 01/29/20 08:00 Mechanical Ventilator 01/29/20 08:00 30 01/29/20 08:00 98.2 91 17 123/86 (98) 100 91 01/29/20 07:41 78 01/29/20 07:20 79 30 30 01/29/20 04:00 Mechanical Ventilator 01/29/20 04:00 30 01/29/20 04:00 71 01/29/20 04:00 97.2 72 23 127/68 (87) 99 01/29/20 02:53 72 28 30 01/29/20 00:00 97.8 70 22 138/75 (96) 99 01/29/20 00:00 73 01/29/20 00:00 Mechanical Ventilator 01/29/20 00:00 30 01/28/20 23:31 77 25 30 01/28/20 20:00 98.1 66 25 139/71 (93) 100 01/28/20 20:00 Mechanical Ventilator 01/28/20 20:00 74 01/28/20 20:00 30 01/28/20 19:37 79 31 30 01/28/20 16:00 30 01/28/20 16:00 96.8 64 29 132/78 (96) 100 01/28/20 16:00 Mechanical Ventilator 01/28/20 16:00 65 01/28/20 15:40 62 24 30 I&O Intake and Output 01/28/20 01/29/20 19:00 07:00 Intake Total 1640.25 ml 1407 ml Output Total 250 ml 400 ml Balance 1390.25 ml 1007 ml IV Total 1096.25 ml 1000 ml Tube Feeding 444 ml 407 ml Other 100 ml Output Urine Total 250 ml 400 ml # Voids 1 # Bowel Movements 4 2 Dressing: other Wound: other Drains: other Cardiovascular: RSR Respiratory: decreased breath sounds Abdomen: soft, distended, non-tender, present bowel sounds Extremities: edema, no cyanosis, other Laboratory Tests Test 01/29/20 03:35 01/29/20 12:25 White Blood Count 39.2 K/UL (4.8-10.8) #*H 36.4 K/UL (4.8-10.8) *H Red Blood Count 3.16 M/UL (4.70-6.10) L 3.13 M/UL (4.70-6.10) L Hemoglobin 9.0 G/DL (14.2-18.0) L 8.9 G/DL (14.2-18.0) L Hematocrit 29.7 % (42.0-52.0) L 28.8 % (42.0-52.0) L Mean Corpuscular Volume 94 FL (80-99) 92 FL (80-99) Mean Corpuscular Hemoglobin 28.5 PG (27.0-31.0) 28.4 PG (27.0-31.0) Mean Corpuscular Hemoglobin Concent 30.4 G/DL (32.0-36.0) L 30.9 G/DL (32.0-36.0) L Red Cell Distribution Width 18.0 % (11.6-14.8) H 18.3 % (11.6-14.8) H Platelet Count 108 K/UL (150-450) L 109 K/UL (150-450) L Mean Platelet Volume 12.6 FL (6.5-10.1) H 11.7 FL (6.5-10.1) H Neutrophils (%) (Auto) % (45.0-75.0) % (45.0-75.0) Lymphocytes (%) (Auto) % (20.0-45.0) % (20.0-45.0) Monocytes (%) (Auto) % (1.0-10.0) % (1.0-10.0) Eosinophils (%) (Auto) % (0.0-3.0) % (0.0-3.0) Basophils (%) (Auto) % (0.0-2.0) % (0.0-2.0) Differential Total Cells Counted 100 Neutrophils % (Manual) 89 % (45-75) H Pending Lymphocytes % (Manual) 7 % (20-45) L Pending Monocytes % (Manual) 3 % (1-10) Eosinophils % (Manual) 1 % (0-3) Basophils % (Manual) 0 % (0-2) Band Neutrophils 0 % (0-8) Platelet Estimate Decreased L Pending Platelet Morphology Normal Pending Hypochromasia 1+ Anisocytosis 1+ Sodium Level 146 MMOL/L (136-145) H Potassium Level 3.7 MMOL/L (3.5-5.1) Chloride Level 112 MMOL/L (98-107) H Carbon Dioxide Level 15 MMOL/L (21-32) L Anion Gap 19 mmol/L (5-15) H Blood Urea Nitrogen 110 mg/dL (7-18) H Creatinine 4.4 MG/DL (0.55-1.30) H Estimat Glomerular Filtration Rate 17.1 mL/min (>60) Glucose Level 201 MG/DL (74-106) H Calcium Level 8.5 MG/DL (8.5-10.1) Total Bilirubin 1.5 MG/DL (0.2-1.0) H Direct Bilirubin 1.1 MG/DL (0.0-0.3) H Aspartate Amino Transf (AST/SGOT) 49 U/L (15-37) H Alanine Aminotransferase (ALT/SGPT) 81 U/L (12-78) H Alkaline Phosphatase 187 U/L (46-116) H Total Protein 5.2 G/DL (6.4-8.2) L Albumin 0.4 G/DL (3.4-5.0) L Globulin 4.8 g/dL Plan Problems: (1) Hyponatremia (2) ARF (acute renal failure) (3) Hyperkalemia (4) Pressure sore on sacrum Assessment & Plan: Pt presented on admission with Sacral Pressure injury and Necrosis Both Both R lower ext, R foot and L foot. Generalized edema noted. Both upper ext noted to have multiple serous blisters ,some of which are weeping serous exudate. Full thickness Sacral Pressure Injury with undermined Borders. Base of wound is 75% loose necrotic tissue,25% bree. Bone exposure at base of wound. Area of necrosis noted at distal aspect of wound in space between wound and anus.Edges are macerated. Wound is malodorous.(L)9.5cm x (W)9.2cm x (D)2.9cm,undermining clockwise 10-3 by 3.8cm @12 o'clock. Scattered areas of hyperpigmentation noted to R and L clefts of buttocks. Unable to determine exudate as pt is continuously oozing large amt of semi soft black stool and leaking into wound because of close proximity to his rectum. At upper, R gluteal cheek is additional Pressure Injury with small amt Biofilm at base of wound. Edges are pink and adherent to base of wound. No exudate noted.(L)3cm x (W)2.6cm. Medially to distal Tibia,and extending to R foot is necrotic and malodorous.Wound is partially opened at posterior R tibia but is dry . L foot is necrotic and malodorous. No exudate noted. Tx.Plan: Cleanse Sacral wound with Dakin's 0.25% archana.. Loosely Pack wound with Dakin's moistened Kerlix.Apply Moisture Barrier Paste periwound.Cover with Optifoam drsg.Change Daily and PRN. Cleanse R lower ext and R foot with Dakin's 0.25% Archana. Cover wounds with ABD Pads.Wrap with Kerlix Daily and prn. Cleanse L foot Wounds with Dakin's 0.25% Archana. Cover wounds with ABD Pads and wrap with Kerlix Daily and prn. soft collar placed (5) Upper GI bleed Assessment & Plan: Patient with sepsis, abnormal labs, GI bleed, pending COVID eval. Labs noted. Exam reviewed. Chest x-ray noted as below. Discussed with GI. Plan for endoscopy once COVID status evaluated. Trend hemoglobin for now transfuse PRN. G-tube is functional and okay for medications and will plan tube feeds accordingly. No acute surgical intervention as patient is actively bleeding. Proton pump inhibitor recommended and Rx as written. Will follow with recommendations thank you for let me participate in patient's care plt low anemia prognosis guarded no active GI bleeding noted Status post PEG Tolerating tube feeds but still having diarrhea Difficult with rectal tube slides right out likely from spinal injury Anasarca stable No active bleeding line Free currently will monitor closely There is a tracheostomy in place. Vascularity is normal. Hazy densities in the lung bases may be layering effusions. Cardiac and mediastinal silhouette are within normal limits. The bony thorax appear unremarkable. line removed will monitor for bleeding IMPRESSION: Bibasilar hazy densities perhaps layering effusions. right fem line not functional noted manipulation as suture was dislodged. line replaced 1. Two or three gastric AVMs. 2. Ulcer with a small visible vessel, status post gold probe bipolar cauterization. DAILY ESTIMATED NEEDS: Needs based on Critical Care, Wounds, TR / 61kg 25-30 kcals/kg 6077-1736 total kcals 0.8-1.25 (increase w/ renal improvement) g protein/kg 49-76 g total protein 25-30 mL/kg 6070-3973 total fluid mLs NUTRITION DIAGNOSIS: * Swallowing difficulty R/T respiratory status, dysphagia as evidenced by trach/vent dep, PEG dep. * Increased kcal/prot intake needs R/T wound healing as evidenced by admtited w/ multiple wounds including full thickness wound @ sacrum, pressure Injury with small amt Biofilm at base of wound @ uppera R gluteal cheek, necrotic wound @ medial to distal Tibia,and extending to R foot and L foot * Altered nutrition related lab R/T TR as evidenced by elev BUN (215-> 96), elev creat (5.2->4.2), low Na (124 ->148), elev K (6.7 -> wnl) CURRENT TF:Nepro @ 37ml/hr x 24 hrs ENTERAL NUTRITION RECOMMENDATIONS: Nepro @ 37ml/hr x 24 hrs to provide 888ml, 1598kcal, 72g prot, 646ml free water * Maintain current TF -> rec Nepro at this time given TR (Creat 5.2-> 4.3) w/ elev K upon adm * HOB over 30 degrees/ water flush per MD W/ CONTINUED DIARRHEA, consider trial of elemental formula of Vital AF 1.2 @ goal rate of 45ml/hr x 24 hrs to provide 1080ml, 1296kcal, 81g prot, 876lm free water: will meet 85% est kcal and 106% est prot needs. -----> W/ non renal TF, monitor lytes closely (K wnl at this time, phos level not available) ADDITIONAL RECOMMENDATIONS: * Per SN[facility]: HT=62" WT= 135lbs (12/25/19) * Monitor renal fxn and lytes (Creat 5.3 -> 4.1) -> check phos and mag (not checked since adm) * Wound healing: Once TF well tolerated at goal, add Ajay BID * Monitor for hypoglycemia: no further episodes (now 70's) * Add probiotics to help improve gut ewelina- + diarrhea -> consider trial of elemental TF of Vital AF Study is somewhat limited due to anasarca and overlying bowel gas, midline gastrostomy bandages. Gallbladder demonstrates sludge and tiny stones. The gallbladder wall is mildly thickened. Sonographic Velázquez sign could not be assessed. Common bile duct measures 4 mm in diameter. No intrahepatic biliary ductal dilatation. The liver is enlarged. It demonstrates normal echogenicity. No focal abnormality. Small amount of ascites fluid is seen at the anterior liver surface and adjacent to the gallbladder, left upper quadrant, and in the pelvis Portal vein and hepatic veins are patent. Pancreas is obscured by bowel gas. Spleen is unremarkable. Left kidney measures 11.4 cm in length. Right kidney measures 10.9 cm length. Both kidneys demonstrate normal echogenicity. There is no hydronephrosis. No focal abnormality . Abdominal aorta is partially obscured by bowel gas, visualized portions are non-aneurysmal . There are small bilateral pleural effusions (6) Severe malnutrition Assessment & Plan: emesis tf on hold monitor residuals (7) Respiratory failure Javid Singh Jan 29, 2020 13:31
--- NOTE | 2020-01-29 13:53 | Hematology/Onc Progress Note ---
Assessment/Plan Assessment/Plan Assessment and recs # Thrombocytopenia - potential causes multifactorial, evaluate liver and viral etiologies to begin, also could be related to underlying medications patient has received. May be due to DIC in this case, or consumption --> Hep panel and HIV negative --> US abd to evaluate for cirrhosis and hsm --> positive for mild hepatomegaly --> Peripheral smear ordered to evaluate for blasts /schistocytes --> abx and other meds have been reviewed --> ok for ppx if plt >50k w/ either heparin or lovenox --> Transfuse if Plt < 20k and fever, or if Plt < 10k without fever --> plt trend 41-->32-->21k-->20 -->61k-->45-->62-->51->38->55->50->70-->90--> 112 -->118 -->106-->109-->109 # Anemia due to Upper GI bleed, hematuria --> no evidence of hemolysis is noted --> smear noted --> anemia panel reviewed, ferritin high --> po iron ok --> for hematuria as per urology --> Pending endoscopy when clear from covid19 --> hgb trend: 9.1 ->8.3->6.9-->8.1-->8.3-->7.6 -->6.6-->10.5-->9.8-->9.3->8.5-- >8.6 -->8.5-->8.3-->8 -->7.7-->8.9 --> prbc: 2 units 01/02, 01/12 # Leukocytosis due to e/coli/kleb pna --> wbc trend 23-->32-->17.1-->13.9-->10-->15-->17.7-->21.8-->17-->20.2-->23--> 36.4 --> as per id recs --> on connor/wilma--> vanc-->zosyn # Hyperkalemia --> kayxelate as needed --> k trend # ARF (acute renal failure) --> per renal # Hyponatremia # Gram negative pneumonia # Ventilator dependent respiratory failure # intracranial hemorrhage # paraplegia # Dysphagia with gtube # Dvt ppx scds The timing of this note does not necessarily reflect the time of the patient was seen. Greatly appreciate consultation. Subjective Allergies: Coded Allergies: No Known Allergies (Unverified , 10/07/19) Subjective 01/03obtunded, s/p rbc x2, hgb improved to 9.1, us abd reviewed, hematuria+ 01/04 plt are better, got 1 unit pf platets today as well, plt now 61k, less gi bleed overnight, some black tarry stool noted 01/05 nv, labs noted, hgb 8.5, no hemolysis noted, no bleeding, plt 83, egd tomorrow 01/06 egd for this am, results are pending, labs noted 01/09 no major changes, labs noted, no bleeding wbc higher, on abx 01/10 sdu, wbc improving, inr 1.4, vent, h/h stable, no distress 01/11 hgb 7.6, no tx required, repeat cbc for tomorrow, on vent 01/12 remains on vent, hgb 6.6, getting 2 iunits prbc today, will need picc 01/13 trach to vent, nepro feeds ongoing, hgb improved 10.5 01/14 s/p egd w/ peg, rectal tube, no acute events, h/h stable 01/15 remains obtunded, minimal blood in stool, will hold off on platelet administration 01/16 labs noted, nob charla, meds reviewed, plt higher 01/18 sdu, nonverbal, no acute events, vent, vanc 01/19 remains on vent, with po vanc, wbc higher as is plt 01/20 sdu, obtunded, blisters to groin/scrotum area, labs reviewed 01/21 ctap and us abd reviewed, mild hepatomegaly, hgb 8.5, inr 1.8 01/22 remains on zosyn at this time, no bleeding, hgb .3, wbc 17 01/23 wbc trending up, contact isolation, no acute events 01/25 remains obtunded, melissa Rn, wbc 23, hgb 7.7, holding off transf 01/26 labs reviewed, no bleeding, hgb 7.7, yesterday, wit gtube feeds 01/27 sdu, no overnight events, wbc 22.4, iv abx, afebrile 01/28 obtunded, no new changes, labs reviewed, zosyn Objective Objective Current Medications Medications (Trade) Dose Ordered Sig/[place] Route PRN Reason Start Time Stop Time Status Last Admin Dose Admin Al Hydroxide/Mg Hydroxide (Mylanta) 30 ml QIDPRN PRN GT stomach upset 01/14/20 16:45 02/13/20 16:44 Artificial Tears (Akwa-Tears) 1 drop EVERY 12 HOURS BOTH EYES 01/14/20 21:00 02/13/20 20:59 01/29/20 08:14 Dextrose (Dextrose 50%) 25 ml Q30M PRN IV Hypoglycemia 01/14/20 16:45 04/13/20 16:44 01/20/20 09:08 Dextrose (Dextrose 50%) 50 ml Q30M PRN IV hypoglycemia 01/14/20 16:45 04/13/20 16:44 01/14/20 21:25 Diphenoxylate HCl/ Atropine (Lomotil) 2.5 mg Q4H PRN ORAL Diarrhea 01/22/20 12:00 02/21/20 11:59 01/28/20 17:38 Insulin Aspart (NovoLOG) No Dose Q6HR SUBQ 01/14/20 18:00 04/13/20 17:59 01/29/20 12:30 Loperamide HCl (Imodium) 2 mg Q6H PRN GT Diarrhea 01/28/20 14:18 02/27/20 14:17 01/29/20 10:56 Metoclopramide HCl (Reglan) 5 mg Q8H IVP 01/26/20 10:00 02/25/20 09:59 01/29/20 09:32 Ondansetron HCl (Zofran) 4 mg Q6H PRN IVP Nausea & Vomiting 01/26/20 09:15 02/25/20 09:14 Pantoprazole (Protonix) 40 mg DAILY IVP 01/20/20 09:00 02/19/20 08:59 01/29/20 08:13 Piperacillin Sod/ Tazobactam Sod 3.375 gm/Sodium Chloride 110 ml @ 27.5 mls/hr Q12H IVPB 01/25/20 18:00 02/01/20 17:59 01/29/20 06:08 Sodium Bicarbonate 100 ml/Dextrose/ Electrolytes 1,100 ml @ 100 mls/hr Q11H IV 01/28/20 14:00 02/27/20 13:59 01/29/20 12:28 Sodium Hypochlorite (Dakin's Half Strength) 1 applic DAILY TOPIC 01/15/20 09:00 02/14/20 08:59 01/29/20 08:14 Sodium Citrate (Bicitra) 30 ml EVERY 6 HOURS GT 01/20/20 18:00 02/19/20 17:59 01/29/20 12:28 Zinc Sulfate (Zinc Sulfate) 220 mg DAILY GT 01/15/20 09:00 04/14/20 08:59 01/29/20 08:13 Last 24 Hour Vital Signs Date Time Temp Pulse Resp B/P (MAP) Pulse Ox O2 Delivery O2 Flow Rate FiO2 01/29/20 12:00 Mechanical Ventilator 01/29/20 12:00 97.7 70 18 127/67 (87) 100 01/29/20 12:00 73 01/29/20 12:00 30 01/29/20 10:40 72 27 30 01/29/20 08:00 Mechanical Ventilator 01/29/20 08:00 30 01/29/20 08:00 98.2 91 17 123/86 (98) 100 91 01/29/20 07:41 78 01/29/20 07:20 79 30 30 01/29/20 04:00 Mechanical Ventilator 01/29/20 04:00 30 01/29/20 04:00 71 01/29/20 04:00 97.2 72 23 127/68 (87) 99 01/29/20 02:53 72 28 30 01/29/20 00:00 97.8 70 22 138/75 (96) 99 01/29/20 00:00 73 01/29/20 00:00 Mechanical Ventilator 01/29/20 00:00 30 01/28/20 23:31 77 25 30 01/28/20 20:00 98.1 66 25 139/71 (93) 100 01/28/20 20:00 Mechanical Ventilator 01/28/20 20:00 74 01/28/20 20:00 30 01/28/20 19:37 79 31 30 01/28/20 16:00 30 01/28/20 16:00 96.8 64 29 132/78 (96) 100 01/28/20 16:00 Mechanical Ventilator 01/28/20 16:00 65 01/28/20 15:40 62 24 30 01/28/20 12:00 49 01/28/20 12:00 Mechanical Ventilator 01/28/20 12:00 97.0 63 29 146/83 (104) 100 01/28/20 12:00 30 01/28/20 11:20 61 24 30 01/28/20 08:00 67 01/28/20 08:00 Mechanical Ventilator 01/28/20 08:00 30 01/28/20 07:58 68 27 30 01/28/20 07:47 97.3 68 26 144/80 (101) 100 01/28/20 04:00 67 01/28/20 04:00 30 01/28/20 04:00 Mechanical Ventilator 01/28/20 04:00 97.5 66 26 128/73 (91) 100 01/28/20 03:10 69 25 30 01/28/20 00:00 Mechanical Ventilator 01/28/20 00:00 67 01/28/20 00:00 30 01/28/20 00:00 97.6 65 22 125/64 (84) 100 01/27/20 22:59 72 27 30 01/27/20 20:26 72 28 30 01/27/20 20:00 72 01/27/20 20:00 30 01/27/20 20:00 98.2 75 22 137/73 (94) 99 01/27/20 20:00 Mechanical Ventilator 01/27/20 16:00 Mechanical Ventilator 01/27/20 16:00 97.9 76 25 141/72 (95) 100 01/27/20 16:00 30 01/27/20 16:00 75 01/27/20 15:20 76 27 30 Intake and Output 01/28/20 01/29/20 19:00 07:00 Intake Total 1640.25 ml 1407 ml Output Total 250 ml 400 ml Balance 1390.25 ml 1007 ml IV Total 1096.25 ml 1000 ml Tube Feeding 444 ml 407 ml Other 100 ml Output Urine Total 250 ml 400 ml # Voids 1 # Bowel Movements 4 2 Labs Test 01/27/20 10:25 01/28/20 03:15 01/29/20 03:35 01/29/20 12:25 White Blood Count 20.3 K/UL (4.8-10.8) 22.4 K/UL (4.8-10.8) 39.2 K/UL (4.8-10.8) 36.4 K/UL (4.8-10.8) Red Blood Count 3.31 M/UL (4.70-6.10) 3.18 M/UL (4.70-6.10) 3.16 M/UL (4.70-6.10) 3.13 M/UL (4.70-6.10) Hemoglobin 9.6 G/DL (14.2-18.0) 9.4 G/DL (14.2-18.0) 9.0 G/DL (14.2-18.0) 8.9 G/DL (14.2-18.0) Hematocrit 31.0 % (42.0-52.0) 29.7 % (42.0-52.0) 29.7 % (42.0-52.0) 28.8 % (42.0-52.0) Mean Corpuscular Volume 94 FL (80-99) 93 FL (80-99) 94 FL (80-99) 92 FL (80- 99) Mean Corpuscular Hemoglobin 29.1 PG (27.0-31.0) 29.6 PG (27.0-31.0) 28.5 PG (27.0-31.0) 28.4 PG (27.0-31.0) Mean Corpuscular Hemoglobin Concent 31.1 G/DL (32.0-36.0) 31.7 G/DL (32.0-36.0) 30.4 G/DL (32.0-36.0) 30.9 G/DL (32.0-36.0) Red Cell Distribution Width 18.2 % (11.6-14.8) 17.6 % (11.6-14.8) 18.0 % (11.6-14.8) 18.3 % (11.6-14.8) Platelet Count 130 K/UL (150-450) 128 K/UL (150-450) 108 K/UL (150-450) 109 K/UL (150-450) Mean Platelet Volume 13.0 FL (6.5-10.1) 12.4 FL (6.5-10.1) 12.6 FL (6.5-10.1) 11.7 FL (6.5-10.1) Neutrophils (%) (Auto) % (45.0-75.0) % (45.0-75.0) % (45.0-75.0) % (45.0- 75.0) Lymphocytes (%) (Auto) % (20.0-45.0) % (20.0-45.0) % (20.0-45.0) % (20.0- 45.0) Monocytes (%) (Auto) % (1.0-10.0) % (1.0-10.0) % (1.0-10.0) % (1.0-10.0) Eosinophils (%) (Auto) % (0.0-3.0) % (0.0-3.0) % (0.0-3.0) % (0.0-3.0) Basophils (%) (Auto) % (0.0-2.0) % (0.0-2.0) % (0.0-2.0) % (0.0-2.0) Differential Total Cells Counted 100 100 100 Neutrophils % (Manual) 83 % (45-75) 81 % (45-75) 89 % (45-75) Lymphocytes % (Manual) 8 % (20-45) 7 % (20-45) 7 % (20-45) Monocytes % (Manual) 9 % (1-10) 12 % (1-10) 3 % (1-10) Eosinophils % (Manual) 0 % (0-3) 0 % (0-3) 1 % (0-3) Basophils % (Manual) 0 % (0-2) 0 % (0-2) 0 % (0-2) Band Neutrophils 0 % (0-8) 0 % (0-8) 0 % (0-8) Platelet Estimate Decreased Decreased Decreased Platelet Morphology Normal Normal Normal Polychromasia 1+ Hypochromasia 1+ 2+ 1+ Anisocytosis 1+ 1+ 1+ Sodium Level 148 MMOL/L (136-145) 144 MMOL/L (136-145) 146 MMOL/L (136-145) Potassium Level 3.9 MMOL/L (3.5-5.1) 3.5 MMOL/L (3.5-5.1) 3.7 MMOL/L (3.5-5.1) Chloride Level 116 MMOL/L (98-107) 113 MMOL/L (98-107) 112 MMOL/L (98-107) Carbon Dioxide Level 14 MMOL/L (21-32) 12 MMOL/L (21-32) 15 MMOL/L (21-32) Anion Gap 18 mmol/L (5-15) 19 mmol/L (5-15) 19 mmol/L (5-15) Blood Urea Nitrogen 115 mg/dL (7-18) 111 mg/dL (7-18) 110 mg/dL (7-18) Creatinine 4.4 MG/DL (0.55-1.30) 4.5 MG/DL (0.55-1.30) 4.4 MG/DL (0.55-1.30) Estimat Glomerular Filtration Rate 17.1 mL/min (>60) 16.7 mL/min (>60) 17.1 mL/min (>60) Glucose Level 127 MG/DL (74-106) 173 MG/DL (74-106) 201 MG/DL (74-106) Calcium Level 8.8 MG/DL (8.5-10.1) 8.9 MG/DL (8.5-10.1) 8.5 MG/DL (8.5-10.1) Total Bilirubin 1.5 MG/DL (0.2-1.0) 1.5 MG/DL (0.2-1.0) Direct Bilirubin 1.2 MG/DL (0.0-0.3) 1.1 MG/DL (0.0-0.3) Aspartate Amino Transf (AST/SGOT) 78 U/L (15-37) 49 U/L (15-37) Alanine Aminotransferase (ALT/SGPT) 116 U/L (12-78) 81 U/L (12-78) Alkaline Phosphatase 220 U/L (46-116) 187 U/L (46-116) Total Protein 5.5 G/DL (6.4-8.2) 5.2 G/DL (6.4-8.2) Albumin < 0.6 G/DL (3.4-5.0) 0.4 G/DL (3.4-5.0) Globulin 5.4 g/dL 4.8 g/dL Height (Feet): 5 Height (Inches): 5.00 Weight (Pounds): 180 Objective Physical Exam: Vitals: reviewed General: NAD ++obtunded HEENT: nc, at, mouth guard+ Neck: supple++trach Chest: clear breath sounds bilaterally Cardiovascular: RRR, no s3, s4 Abdomen/GI: soft, nontender, nd ++gtube, rectal tube+ Extremities: no cce, normal range of motion, ++ Spasticity in the left upper extremity. Flaccid on the right, scrotal blisters++ Neuro: nonfocal : skinny+ Wilmer Turner MD Jan 29, 2020 13:53
[2020-01-29 15:40] VITALS: BP 119/61
--- NOTE | 2020-01-29 15:56 | Nephrology Progress Note ---
Assessment/Plan Problem List: (1) Respiratory failure (2) ARF (acute renal failure) (3) Hyponatremia (4) Hyperkalemia (5) Upper GI bleed (6) Pressure sore on sacrum (7) Diarrhea (8) Severe malnutrition Plan diarrhea, reorder iv fluids,BUN/creatinine 70/.91 11/2019, enteral hydration , reji likely from infection, severe hypoalbuminemia and anasarca with poor prognosis Na higher iv adjusted, bicitra started for acidosis, add bicarb to iv , emesis today Subjective ROS Limited/Unobtainable: Yes Objective Objective Last 24 Hour Vital Signs Date Time Temp Pulse Resp B/P (MAP) Pulse Ox O2 Delivery O2 Flow Rate FiO2 01/29/20 15:40 97.3 75 20 119/61 (80) 100 01/29/20 14:56 75 28 30 01/29/20 12:00 Mechanical Ventilator 01/29/20 12:00 97.7 70 18 127/67 (87) 100 01/29/20 12:00 73 01/29/20 12:00 30 01/29/20 10:40 72 27 30 01/29/20 08:00 Mechanical Ventilator 01/29/20 08:00 30 01/29/20 08:00 98.2 91 17 123/86 (98) 100 91 01/29/20 07:41 78 01/29/20 07:20 79 30 30 01/29/20 04:00 Mechanical Ventilator 01/29/20 04:00 30 01/29/20 04:00 71 01/29/20 04:00 97.2 72 23 127/68 (87) 99 01/29/20 02:53 72 28 30 01/29/20 00:00 97.8 70 22 138/75 (96) 99 01/29/20 00:00 73 01/29/20 00:00 Mechanical Ventilator 01/29/20 00:00 30 01/28/20 23:31 77 25 30 01/28/20 20:00 98.1 66 25 139/71 (93) 100 01/28/20 20:00 Mechanical Ventilator 01/28/20 20:00 74 01/28/20 20:00 30 01/28/20 19:37 79 31 30 01/28/20 16:00 30 01/28/20 16:00 96.8 64 29 132/78 (96) 100 01/28/20 16:00 Mechanical Ventilator 01/28/20 16:00 65 Intake and Output 01/28/20 01/29/20 19:00 07:00 Intake Total 1640.25 ml 1407 ml Output Total 250 ml 400 ml Balance 1390.25 ml 1007 ml IV Total 1096.25 ml 1000 ml Tube Feeding 444 ml 407 ml Other 100 ml Output Urine Total 250 ml 400 ml # Voids 1 # Bowel Movements 4 2 Laboratory Tests 01/29/20 03:35: White Blood Count 39.2#*H, Red Blood Count 3.16L, Hemoglobin 9.0L, Hematocrit 29.7L, Mean Corpuscular Volume 94, Mean Corpuscular Hemoglobin 28.5, Mean Corpuscular Hemoglobin Concent 30.4L, Red Cell Distribution Width 18.0H, Platelet Count 108L, Mean Platelet Volume 12.6H, Neutrophils (%) (Auto) , Lymphocytes (%) (Auto) , Monocytes (%) (Auto) , Eosinophils (%) (Auto) , Basophils (%) (Auto) , Differential Total Cells Counted 100, Neutrophils % ( Manual) 89H, Lymphocytes % (Manual) 7L, Monocytes % (Manual) 3, Eosinophils % ( Manual) 1, Basophils % (Manual) 0, Band Neutrophils 0, Platelet Estimate DecreasedL, Platelet Morphology Normal, Hypochromasia 1+, Anisocytosis 1+, Sodium Level 146H, Potassium Level 3.7, Chloride Level 112H, Carbon Dioxide Level 15L, Anion Gap 19H, Blood Urea Nitrogen 110H, Creatinine 4.4H, Estimat Glomerular Filtration Rate 17.1, Glucose Level 201H, Calcium Level 8.5, Total Bilirubin 1.5H, Direct Bilirubin 1.1H, Aspartate Amino Transf (AST/SGOT) 49H, Alanine Aminotransferase (ALT/SGPT) 81H, Alkaline Phosphatase 187H, Total Protein 5.2L, Albumin 0.4L, Globulin 4.8 01/29/20 12:25: White Blood Count 36.4*H, Red Blood Count 3.13L, Hemoglobin 8.9L, Hematocrit 28.8L, Mean Corpuscular Volume 92, Mean Corpuscular Hemoglobin 28.4, Mean Corpuscular Hemoglobin Concent 30.9L, Red Cell Distribution Width 18.3H, Platelet Count 109L, Mean Platelet Volume 11.7H, Neutrophils (%) (Auto) , Lymphocytes (%) (Auto) , Monocytes (%) (Auto) , Eosinophils (%) (Auto) , Basophils (%) (Auto) , Differential Total Cells Counted 100, Neutrophils % ( Manual) 88H, Lymphocytes % (Manual) 3L, Monocytes % (Manual) 7, Eosinophils % ( Manual) 2, Basophils % (Manual) 0, Band Neutrophils 0, Platelet Estimate DecreasedL, Platelet Morphology Normal, Hypochromasia 1+, Anisocytosis 1+ Height (Feet): 5 Height (Inches): 5.00 Weight (Pounds): 180 General Appearance: other - on vent Cardiovascular: normal rate Respiratory/Chest: crackles/rales Abdomen: non tender Extremities: moderate edema Neurologic: unresponsive Martin Yee MD Jan 29, 2020 15:56
[2020-01-29 20:00] VITALS: BP 120/66
[2020-01-30] VITALS: BP 124/68
[2020-01-30] MEDS: Metoclopramide 10mg/2ml Inj IVP SCH ×3 (02:03→17:23)
[2020-01-30 04:00] VITALS: BP 128/71
[2020-01-30 04:38] LABS: HEMATOCRIT 28.4 % (42.0-52.0); MEAN CORPUSCULAR VOLUME 93 FL (80-99); PLATELET COUNT 114 K/UL (150-450); RED BLOOD COUNT 3.05 M/UL (4.70-6.10); RED CELL DISTRIBUTION WIDTH 18.2 % (11.6-14.8)
[2020-01-30 04:58] LABS: WHITE BLOOD COUNT 29.9 K/UL (4.8-10.8)
[2020-01-30] MEDS: Sodium Citrate 30ml GT SCH ×4 (05:11→23:37)
[2020-01-30] MEDS: Insulin NovoLOG Flexpen S/S (Mod) SUBQ SCH ×4 (05:12→23:35)
[2020-01-30] MEDS: Piperacillin/Tazobactam 3.375 GM in NS 110 ML IVPB SCH (05:52)
[2020-01-30 08:00] VITALS: BP 130/74
--- NOTE | 2020-01-30 08:44 | Infectious Diseases Prog Note ---
Assessment/Plan Assessment/Plan A 1. E. coli, Providencia & Pseudomonas pneumonia 2. Acute renal failure 3. Ventilator dependent respiratory failure 4. intracranial hemorrhage 5. paraplegia 6. leucocytosis 7. GI bleeding 8. Anemia 9. COVID19 test X 2: negative 10- Gangrene of feet 11. Thrombocytopenia 12. Hepatomegaly 13. sacral pressure ulcer 14. Cholelithiasis P 1. Discontinue Zosyn 2. Poor prognosis 3. Repeat stool for C.difficile Subjective ROS Limited/Unobtainable: Yes Constitutional: Denies: fever Gastrointestinal/Abdominal: Reports: diarrhea Allergies: Coded Allergies: No Known Allergies (Unverified , 10/07/19) Objective Vital Signs Last 24 Hour Vital Signs Date Time Temp Pulse Resp B/P (MAP) Pulse Ox O2 Delivery O2 Flow Rate FiO2 01/30/20 07:12 78 25 30 01/30/20 04:00 30 01/30/20 04:00 Mechanical Ventilator 01/30/20 04:00 97.5 74 20 128/71 (90) 100 01/30/20 03:30 76 01/30/20 02:35 73 25 30 01/30/20 00:00 97.7 79 20 124/68 (86) 100 01/30/20 00:00 Mechanical Ventilator 01/29/20 23:42 76 01/29/20 22:40 74 27 30 01/29/20 20:00 97.7 77 20 120/66 (84) 100 01/29/20 20:00 30 01/29/20 20:00 Mechanical Ventilator 01/29/20 20:00 78 01/29/20 19:10 77 28 30 01/29/20 16:00 30 01/29/20 16:00 Mechanical Ventilator 01/29/20 16:00 72 01/29/20 15:40 97.3 75 20 119/61 (80) 100 01/29/20 14:56 75 28 30 01/29/20 12:00 Mechanical Ventilator 01/29/20 12:00 97.7 70 18 127/67 (87) 100 01/29/20 12:00 73 01/29/20 12:00 30 01/29/20 10:40 72 27 30 Height (Feet): 5 Height (Inches): 5.00 Weight (Pounds): 193 HEENT: status post trach Respiratory/Chest: other - on ventilator Cardiovascular: normal rate Abdomen: soft, non tender, other - GT feeding Extremities: other - edema Neurologic/Psychiatric: aphasia Laboratory Tests Test 01/29/20 12:25 01/30/20 02:50 White Blood Count 36.4 K/UL (4.8-10.8) *H 29.9 K/UL (4.8-10.8) *H Red Blood Count 3.13 M/UL (4.70-6.10) L 3.05 M/UL (4.70-6.10) L Hemoglobin 8.9 G/DL (14.2-18.0) L 9.0 G/DL (14.2-18.0) L Hematocrit 28.8 % (42.0-52.0) L 28.4 % (42.0-52.0) L Mean Corpuscular Volume 92 FL (80-99) 93 FL (80-99) Mean Corpuscular Hemoglobin 28.4 PG (27.0-31.0) 29.6 PG (27.0-31.0) Mean Corpuscular Hemoglobin Concent 30.9 G/DL (32.0-36.0) L 31.8 G/DL (32.0-36.0) L Red Cell Distribution Width 18.3 % (11.6-14.8) H 18.2 % (11.6-14.8) H Platelet Count 109 K/UL (150-450) L 114 K/UL (150-450) L Mean Platelet Volume 11.7 FL (6.5-10.1) H 12.5 FL (6.5-10.1) H Neutrophils (%) (Auto) % (45.0-75.0) % (45.0-75.0) Lymphocytes (%) (Auto) % (20.0-45.0) % (20.0-45.0) Monocytes (%) (Auto) % (1.0-10.0) % (1.0-10.0) Eosinophils (%) (Auto) % (0.0-3.0) % (0.0-3.0) Basophils (%) (Auto) % (0.0-2.0) % (0.0-2.0) Differential Total Cells Counted 100 Neutrophils % (Manual) 88 % (45-75) H Pending Lymphocytes % (Manual) 3 % (20-45) L Pending Monocytes % (Manual) 7 % (1-10) Eosinophils % (Manual) 2 % (0-3) Basophils % (Manual) 0 % (0-2) Band Neutrophils 0 % (0-8) Platelet Estimate Decreased L Pending Platelet Morphology Normal Pending Hypochromasia 1+ Anisocytosis 1+ Current Medications Medications (Trade) Dose Ordered Sig/[place] Route PRN Reason Start Time Stop Time Status Last Admin Dose Admin Al Hydroxide/Mg Hydroxide (Mylanta) 30 ml QIDPRN PRN GT stomach upset 01/14/20 16:45 02/13/20 16:44 Artificial Tears (Akwa-Tears) 1 drop EVERY 12 HOURS BOTH EYES 01/14/20 21:00 02/13/20 20:59 01/29/20 20:17 Dextrose (Dextrose 50%) 25 ml Q30M PRN IV Hypoglycemia 01/14/20 16:45 04/13/20 16:44 01/20/20 09:08 Dextrose (Dextrose 50%) 50 ml Q30M PRN IV hypoglycemia 01/14/20 16:45 04/13/20 16:44 01/14/20 21:25 Diphenoxylate HCl/ Atropine (Lomotil) 2.5 mg Q4H PRN ORAL Diarrhea 01/22/20 12:00 02/21/20 11:59 01/28/20 17:38 Insulin Aspart (NovoLOG) No Dose Q6HR SUBQ 01/14/20 18:00 04/13/20 17:59 01/30/20 05:12 Loperamide HCl (Imodium) 2 mg Q6H PRN GT Diarrhea 01/28/20 14:18 02/27/20 14:17 01/29/20 10:56 Metoclopramide HCl (Reglan) 5 mg Q8H IVP 01/26/20 10:00 02/25/20 09:59 01/30/20 02:03 Ondansetron HCl (Zofran) 4 mg Q6H PRN IVP Nausea & Vomiting 01/26/20 09:15 02/25/20 09:14 Pantoprazole (Protonix) 40 mg DAILY IVP 01/20/20 09:00 02/19/20 08:59 01/29/20 08:13 Piperacillin Sod/ Tazobactam Sod 3.375 gm/Sodium Chloride 110 ml @ 27.5 mls/hr Q12H IVPB 01/25/20 18:00 02/01/20 17:59 01/30/20 05:52 Sodium Bicarbonate 100 ml/Dextrose/ Electrolytes 1,100 ml @ 100 mls/hr Q11H IV 01/28/20 14:00 02/27/20 13:59 01/29/20 23:12 Sodium Hypochlorite (Dakin's Half Strength) 1 applic DAILY TOPIC 01/15/20 09:00 02/14/20 08:59 01/29/20 08:14 Sodium Citrate (Bicitra) 30 ml EVERY 6 HOURS GT 01/20/20 18:00 02/19/20 17:59 01/30/20 05:11 Zinc Sulfate (Zinc Sulfate) 220 mg DAILY GT 01/15/20 09:00 04/14/20 08:59 01/29/20 08:13 Anastacio Bustillo MD Jan 30, 2020 08:44
--- NOTE | 2020-01-30 08:58 | Pulmonology Progress Note ---
Subjective ROS Limited/Unobtainable: Yes Constitutional: Denies: fever Gastrointestinal/Abdominal: Reports: diarrhea Allergies: Coded Allergies: No Known Allergies (Unverified , 10/07/19) All Systems: reviewed and negative except above Subjective care noted on vent renal function poor wbc slightly improved labs noted updated Objective Last 24 Hour Vital Signs Date Time Temp Pulse Resp B/P (MAP) Pulse Ox O2 Delivery O2 Flow Rate FiO2 01/30/20 07:12 78 25 30 01/30/20 04:00 30 01/30/20 04:00 Mechanical Ventilator 01/30/20 04:00 97.5 74 20 128/71 (90) 100 01/30/20 03:30 76 01/30/20 02:35 73 25 30 01/30/20 00:00 97.7 79 20 124/68 (86) 100 01/30/20 00:00 Mechanical Ventilator 01/29/20 23:42 76 01/29/20 22:40 74 27 30 01/29/20 20:00 97.7 77 20 120/66 (84) 100 01/29/20 20:00 30 01/29/20 20:00 Mechanical Ventilator 01/29/20 20:00 78 01/29/20 19:10 77 28 30 01/29/20 16:00 30 01/29/20 16:00 Mechanical Ventilator 01/29/20 16:00 72 01/29/20 15:40 97.3 75 20 119/61 (80) 100 01/29/20 14:56 75 28 30 01/29/20 12:00 Mechanical Ventilator 01/29/20 12:00 97.7 70 18 127/67 (87) 100 01/29/20 12:00 73 01/29/20 12:00 30 01/29/20 10:40 72 27 30 Intake and Output 01/29/20 01/30/20 19:00 07:00 Intake Total 470 ml 1752.0 ml Output Total 300 ml 300 ml Balance 170 ml 1452.0 ml Intake Free Water 100 ml IV Total 1308.0 ml Tube Feeding 370 ml 444 ml Output Urine Total 300 ml 300 ml # Bowel Movements 4 5 Objective WDWN trach clear breath sounds bilaterally without rhonchi or wheeze [id number] without MRG NABS nontender no HSM no CCE poor LOC reviewed and edited Laboratory Tests 01/29/20 12:25: White Blood Count 36.4*H, Red Blood Count 3.13L, Hemoglobin 8.9L, Hematocrit 28.8L, Mean Corpuscular Volume 92, Mean Corpuscular Hemoglobin 28.4, Mean Corpuscular Hemoglobin Concent 30.9L, Red Cell Distribution Width 18.3H, Platelet Count 109L, Mean Platelet Volume 11.7H, Neutrophils (%) (Auto) , Lymphocytes (%) (Auto) , Monocytes (%) (Auto) , Eosinophils (%) (Auto) , Basophils (%) (Auto) , Differential Total Cells Counted 100, Neutrophils % ( Manual) 88H, Lymphocytes % (Manual) 3L, Monocytes % (Manual) 7, Eosinophils % ( Manual) 2, Basophils % (Manual) 0, Band Neutrophils 0, Platelet Estimate DecreasedL, Platelet Morphology Normal, Hypochromasia 1+, Anisocytosis 1+ 01/30/20 02:50: White Blood Count 29.9*H, Red Blood Count 3.05L, Hemoglobin 9.0L, Hematocrit 28.4L, Mean Corpuscular Volume 93, Mean Corpuscular Hemoglobin 29.6, Mean Corpuscular Hemoglobin Concent 31.8L, Red Cell Distribution Width 18.2H, Platelet Count 114L, Mean Platelet Volume 12.5H, Neutrophils (%) (Auto) , Lymphocytes (%) (Auto) , Monocytes (%) (Auto) , Eosinophils (%) (Auto) , Basophils (%) (Auto) , Neutrophils % (Manual) [Pending], Lymphocytes % (Manual) [Pending], Platelet Estimate [Pending], Platelet Morphology [Pending] Current Medications Medications (Trade) Dose Ordered Sig/[place] Route PRN Reason Start Time Stop Time Status Last Admin Dose Admin Al Hydroxide/Mg Hydroxide (Mylanta) 30 ml QIDPRN PRN GT stomach upset 01/14/20 16:45 02/13/20 16:44 Artificial Tears (Akwa-Tears) 1 drop EVERY 12 HOURS BOTH EYES 01/14/20 21:00 02/13/20 20:59 01/29/20 20:17 Dextrose (Dextrose 50%) 25 ml Q30M PRN IV Hypoglycemia 01/14/20 16:45 04/13/20 16:44 01/20/20 09:08 Dextrose (Dextrose 50%) 50 ml Q30M PRN IV hypoglycemia 01/14/20 16:45 04/13/20 16:44 01/14/20 21:25 Diphenoxylate HCl/ Atropine (Lomotil) 2.5 mg Q4H PRN ORAL Diarrhea 01/22/20 12:00 02/21/20 11:59 01/28/20 17:38 Insulin Aspart (NovoLOG) No Dose Q6HR SUBQ 01/14/20 18:00 04/13/20 17:59 01/30/20 05:12 Loperamide HCl (Imodium) 2 mg Q6H PRN GT Diarrhea 01/28/20 14:18 02/27/20 14:17 01/29/20 10:56 Metoclopramide HCl (Reglan) 5 mg Q8H IVP 01/26/20 10:00 02/25/20 09:59 01/30/20 02:03 Ondansetron HCl (Zofran) 4 mg Q6H PRN IVP Nausea & Vomiting 01/26/20 09:15 02/25/20 09:14 Pantoprazole (Protonix) 40 mg DAILY IVP 01/20/20 09:00 02/19/20 08:59 01/29/20 08:13 Sodium Bicarbonate 100 ml/Dextrose/ Electrolytes 1,100 ml @ 100 mls/hr Q11H IV 01/28/20 14:00 02/27/20 13:59 01/29/20 23:12 Sodium Hypochlorite (Dakin's Half Strength) 1 applic DAILY TOPIC 01/15/20 09:00 02/14/20 08:59 01/29/20 08:14 Sodium Citrate (Bicitra) 30 ml EVERY 6 HOURS GT 01/20/20 18:00 02/19/20 17:59 01/30/20 05:11 Zinc Sulfate (Zinc Sulfate) 220 mg DAILY GT 01/15/20 09:00 04/14/20 08:59 01/29/20 08:13 Assessment/Plan Assessment/Plan IMPRESSION chronic respiratory failure Acute on chronic renal failure elevated K anemia GIB leukocytosis possible sepsis oral bleeding diarrhea transaminitis PLAN ID , GI and renal to follow vent as is monitor vitals monitor wbc monitor cxr snf meds full code/ d/w again as to poor prognosis prognosis very poor for recovery not stable for snf evaluate for rueda impression, plan, and exam edited and reviewed in detail care discussed with Lorenzo Chase MD Jan 30, 2020 08:58
[2020-01-30] MEDS: Zinc Sulfate 220mg GT SCH (08:59)
[2020-01-30] MEDS: Dakin's 0.25% (Half Strength) 16oz TOPIC SCH (09:00)
[2020-01-30] MEDS: Pantoprazole Inj IVP SCH (09:00)
[2020-01-30] MEDS: D5W IV SCH ×2 (09:01→21:42)
[2020-01-30] MEDS: SODIUM BICARBONATE IV SCH ×2 (09:01→21:42)
[2020-01-30] MEDS: KCL IV SCH ×2 (09:01→21:42)
[2020-01-30] MEDS ORDERED: Lomotil 2.5mg tab GT PRN (10:00)
--- NOTE | 2020-01-30 10:42 | General Progress Note ---
Assessment/Plan Assessment/Plan: sepsis anemia GIB thrombocytopenia hyponatremia ARF DM dysphagia with GT s/p EGD/PEG GTF will resume lomotil prn imodium prn ppi elevated LFTS>>> stable us reviewed fu abd CT, reviewed protonix daily on Imodium will fu Subjective ROS Limited/Unobtainable: No Allergies: Coded Allergies: No Known Allergies (Unverified , 10/07/19) Objective Last 24 Hour Vital Signs Date Time Temp Pulse Resp B/P (MAP) Pulse Ox O2 Delivery O2 Flow Rate FiO2 01/30/20 08:00 30 01/30/20 08:00 97.5 76 20 130/74 (92) 97 01/30/20 07:12 78 25 30 01/30/20 04:00 30 01/30/20 04:00 Mechanical Ventilator 01/30/20 04:00 97.5 74 20 128/71 (90) 100 01/30/20 03:30 76 01/30/20 02:35 73 25 30 01/30/20 00:00 97.7 79 20 124/68 (86) 100 01/30/20 00:00 Mechanical Ventilator 01/29/20 23:42 76 01/29/20 22:40 74 27 30 01/29/20 20:00 97.7 77 20 120/66 (84) 100 01/29/20 20:00 30 01/29/20 20:00 Mechanical Ventilator 01/29/20 20:00 78 01/29/20 19:10 77 28 30 01/29/20 16:00 30 01/29/20 16:00 Mechanical Ventilator 01/29/20 16:00 72 01/29/20 15:40 97.3 75 20 119/61 (80) 100 01/29/20 14:56 75 28 30 01/29/20 12:00 Mechanical Ventilator 01/29/20 12:00 97.7 70 18 127/67 (87) 100 01/29/20 12:00 73 01/29/20 12:00 30 Intake and Output 01/29/20 01/30/20 19:00 07:00 Intake Total 470 ml 1752.0 ml Output Total 300 ml 300 ml Balance 170 ml 1452.0 ml Intake Free Water 100 ml IV Total 1308.0 ml Tube Feeding 370 ml 444 ml Output Urine Total 300 ml 300 ml # Bowel Movements 4 5 Laboratory Tests 01/29/20 12:25: White Blood Count 36.4*H, Red Blood Count 3.13L, Hemoglobin 8.9L, Hematocrit 28.8L, Mean Corpuscular Volume 92, Mean Corpuscular Hemoglobin 28.4, Mean Corpuscular Hemoglobin Concent 30.9L, Red Cell Distribution Width 18.3H, Platelet Count 109L, Mean Platelet Volume 11.7H, Neutrophils (%) (Auto) , Lymphocytes (%) (Auto) , Monocytes (%) (Auto) , Eosinophils (%) (Auto) , Basophils (%) (Auto) , Differential Total Cells Counted 100, Neutrophils % ( Manual) 88H, Lymphocytes % (Manual) 3L, Monocytes % (Manual) 7, Eosinophils % ( Manual) 2, Basophils % (Manual) 0, Band Neutrophils 0, Platelet Estimate DecreasedL, Platelet Morphology Normal, Hypochromasia 1+, Anisocytosis 1+ 01/30/20 02:50: White Blood Count 29.9*H, Red Blood Count 3.05L, Hemoglobin 9.0L, Hematocrit 28.4L, Mean Corpuscular Volume 93, Mean Corpuscular Hemoglobin 29.6, Mean Corpuscular Hemoglobin Concent 31.8L, Red Cell Distribution Width 18.2H, Platelet Count 114L, Mean Platelet Volume 12.5H, Neutrophils (%) (Auto) , Lymphocytes (%) (Auto) , Monocytes (%) (Auto) , Eosinophils (%) (Auto) , Basophils (%) (Auto) , Differential Total Cells Counted 100, Neutrophils % ( Manual) 84H, Lymphocytes % (Manual) 6L, Monocytes % (Manual) 6, Eosinophils % ( Manual) 4H, Basophils % (Manual) 0, Band Neutrophils 0, Platelet Estimate DecreasedL, Platelet Morphology Normal, Hypochromasia 1+, Anisocytosis 1+ Height (Feet): 5 Height (Inches): 5.00 Weight (Pounds): 193 General Appearance: no apparent distress EENT: normal ENT inspection Neck: supple Cardiovascular: normal rate Respiratory/Chest: decreased breath sounds Abdomen: hypoactive bowel sounds Extremities: non-tender Toni Mckenzie MD Jan 30, 2020 10:42
--- NOTE | 2020-01-30 11:55 | Nephrology Progress Note ---
Assessment/Plan Problem List: (1) Respiratory failure (2) ARF (acute renal failure) (3) Hyponatremia (4) Hyperkalemia (5) Upper GI bleed (6) Pressure sore on sacrum (7) Diarrhea (8) Severe malnutrition Plan diarrhea, reorder iv fluids,BUN/creatinine 70/.91 11/2019, enteral hydration , reji likely from infection, severe hypoalbuminemia and anasarca with poor prognosis Na higher iv adjusted, bicitra started for acidosis, add bicarb , still large fluid losses from diarrhea Subjective ROS Limited/Unobtainable: Yes Objective Objective Last 24 Hour Vital Signs Date Time Temp Pulse Resp B/P (MAP) Pulse Ox O2 Delivery O2 Flow Rate FiO2 01/30/20 11:00 72 28 30 01/30/20 08:00 30 01/30/20 08:00 97.5 76 20 130/74 (92) 97 01/30/20 08:00 Mechanical Ventilator 01/30/20 08:00 76 01/30/20 07:12 78 25 30 01/30/20 04:00 30 01/30/20 04:00 Mechanical Ventilator 01/30/20 04:00 97.5 74 20 128/71 (90) 100 01/30/20 03:30 76 01/30/20 02:35 73 25 30 01/30/20 00:00 97.7 79 20 124/68 (86) 100 01/30/20 00:00 Mechanical Ventilator 01/29/20 23:42 76 01/29/20 22:40 74 27 30 01/29/20 20:00 97.7 77 20 120/66 (84) 100 01/29/20 20:00 30 01/29/20 20:00 Mechanical Ventilator 01/29/20 20:00 78 01/29/20 19:10 77 28 30 01/29/20 16:00 30 01/29/20 16:00 Mechanical Ventilator 01/29/20 16:00 72 01/29/20 15:40 97.3 75 20 119/61 (80) 100 01/29/20 14:56 75 28 30 01/29/20 12:00 Mechanical Ventilator 01/29/20 12:00 97.7 70 18 127/67 (87) 100 01/29/20 12:00 73 01/29/20 12:00 30 Intake and Output 01/29/20 01/30/20 19:00 07:00 Intake Total 470 ml 1752.0 ml Output Total 300 ml 300 ml Balance 170 ml 1452.0 ml Intake Free Water 100 ml IV Total 1308.0 ml Tube Feeding 370 ml 444 ml Output Urine Total 300 ml 300 ml # Bowel Movements 4 5 Laboratory Tests 01/29/20 12:25: White Blood Count 36.4*H, Red Blood Count 3.13L, Hemoglobin 8.9L, Hematocrit 28.8L, Mean Corpuscular Volume 92, Mean Corpuscular Hemoglobin 28.4, Mean Corpuscular Hemoglobin Concent 30.9L, Red Cell Distribution Width 18.3H, Platelet Count 109L, Mean Platelet Volume 11.7H, Neutrophils (%) (Auto) , Lymphocytes (%) (Auto) , Monocytes (%) (Auto) , Eosinophils (%) (Auto) , Basophils (%) (Auto) , Differential Total Cells Counted 100, Neutrophils % ( Manual) 88H, Lymphocytes % (Manual) 3L, Monocytes % (Manual) 7, Eosinophils % ( Manual) 2, Basophils % (Manual) 0, Band Neutrophils 0, Platelet Estimate DecreasedL, Platelet Morphology Normal, Hypochromasia 1+, Anisocytosis 1+ 01/30/20 02:50: White Blood Count 29.9*H, Red Blood Count 3.05L, Hemoglobin 9.0L, Hematocrit 28.4L, Mean Corpuscular Volume 93, Mean Corpuscular Hemoglobin 29.6, Mean Corpuscular Hemoglobin Concent 31.8L, Red Cell Distribution Width 18.2H, Platelet Count 114L, Mean Platelet Volume 12.5H, Neutrophils (%) (Auto) , Lymphocytes (%) (Auto) , Monocytes (%) (Auto) , Eosinophils (%) (Auto) , Basophils (%) (Auto) , Differential Total Cells Counted 100, Neutrophils % ( Manual) 84H, Lymphocytes % (Manual) 6L, Monocytes % (Manual) 6, Eosinophils % ( Manual) 4H, Basophils % (Manual) 0, Band Neutrophils 0, Platelet Estimate DecreasedL, Platelet Morphology Normal, Hypochromasia 1+, Anisocytosis 1+ Height (Feet): 5 Height (Inches): 5.00 Weight (Pounds): 193 General Appearance: other - on vent Cardiovascular: regular rhythm Respiratory/Chest: rhonchi - bilaterally Abdomen: soft Extremities: moderate edema Neurologic: unresponsive Martin Yee MD Jan 30, 2020 11:55
[2020-01-30 12:06] VITALS: BP 127/77
--- NOTE | 2020-01-30 13:07 | Hematology/Onc Progress Note ---
Assessment/Plan Assessment/Plan Assessment and recs # Thrombocytopenia - potential causes multifactorial, evaluate liver and viral etiologies to begin, also could be related to underlying medications patient has received. May be due to DIC in this case, or consumption --> Hep panel and HIV negative --> US abd to evaluate for cirrhosis and hsm --> positive for mild hepatomegaly --> Peripheral smear ordered to evaluate for blasts /schistocytes --> abx and other meds have been reviewed --> ok for ppx if plt >50k w/ either heparin or lovenox --> Transfuse if Plt < 20k and fever, or if Plt < 10k without fever --> plt trend 41-->32-->21k-->20 -->61k-->45-->62-->51->38->55->50->70-->90--> 112 -->118 -->106-->109-->109-->114 # Anemia due to Upper GI bleed, hematuria --> no evidence of hemolysis is noted --> smear noted --> anemia panel reviewed, ferritin high --> po iron ok --> for hematuria as per urology --> Pending endoscopy when clear from covid19 --> hgb trend: 9.1 ->8.3->6.9-->8.1-->8.3-->7.6 -->6.6-->10.5-->9.8-->9.3->8.5-- >8.6 -->8.5-->8.3-->8 -->7.7-->8.9 --> prbc: 2 units 01/02, 01/12 # Leukocytosis due to e/coli/kleb pna --> wbc trend 23-->32-->17.1-->13.9-->10-->15-->17.7-->21.8-->17-->20.2-->23--> 36.4-->30 --> as per id recs --> on connor/wilma--> vanc-->zosyn # Hyperkalemia --> kayxelate as needed --> k trend # ARF (acute renal failure) --> per renal # Hyponatremia # Gram negative pneumonia # Ventilator dependent respiratory failure # intracranial hemorrhage # paraplegia # Dysphagia with gtube # Dvt ppx scds The timing of this note does not necessarily reflect the time of the patient was seen. Greatly appreciate consultation. Subjective Constitutional: Denies: no symptoms, chills, fever, malaise, weakness, other HEENT: Denies: no symptoms, eye pain, blurred vision, tearing, double vision, ear pain, ear discharge, nose pain, nose congestion, throat pain, throat swelling, mouth pain, mouth swelling, other Cardiovascular: Denies: no symptoms, chest pain, edema, irregular heart rate, lightheadedness, palpitations, syncope, other Respiratory: Denies: no symptoms, cough, shortness of breath, SOB with excertion, SOB at rest, sputum, wheezing, other Gastrointestinal/Abdominal: Denies: no symptoms, abdomen distended, abdominal pain, black stools, tarry stools, blood in stool, constipated, diarrhea, difficulty swallowing, nausea, poor appetite, poor fluid intake, rectal bleeding , vomiting, other Genitourinary: Denies: no symptoms, burning, discharge, frequency, flank pain, hematuria, incontinence, pain, urgency, other Neurologic/Psychiatric: Denies: no symptoms, anxiety, depressed, emotional problems, headache, numbness, paresthesia, pre-existing deficit, seizure, tingling, tremors, weakness, other Allergies: Coded Allergies: No Known Allergies (Unverified , 10/07/19) All Systems: reviewed and negative except above Subjective 01/03obtunded, s/p rbc x2, hgb improved to 9.1, us abd reviewed, hematuria+ 01/04 plt are better, got 1 unit pf platets today as well, plt now 61k, less gi bleed overnight, some black tarry stool noted 01/05 nv, labs noted, hgb 8.5, no hemolysis noted, no bleeding, plt 83, egd tomorrow 01/06 egd for this am, results are pending, labs noted 01/09 no major changes, labs noted, no bleeding wbc higher, on abx 01/10 sdu, wbc improving, inr 1.4, vent, h/h stable, no distress 01/11 hgb 7.6, no tx required, repeat cbc for tomorrow, on vent 01/12 remains on vent, hgb 6.6, getting 2 iunits prbc today, will need picc 01/13 trach to vent, nepro feeds ongoing, hgb improved 10.5 01/14 s/p egd w/ peg, rectal tube, no acute events, h/h stable 01/15 remains obtunded, minimal blood in stool, will hold off on platelet administration 01/16 labs noted, nob leeding, meds reviewed, plt higher 01/18 sdu, nonverbal, no acute events, vent, vanc 01/19 remains on vent, with po vanc, wbc higher as is plt 01/20 sdu, obtunded, blisters to groin/scrotum area, labs reviewed 01/21 ctap and us abd reviewed, mild hepatomegaly, hgb 8.5, inr 1.8 01/22 remains on zosyn at this time, no bleeding, hgb .3, wbc 17 01/23 wbc trending up, contact isolation, no acute events 01/25 remains obtunded, dw Rn, wbc 23, hgb 7.7, holding off transf 01/26 labs reviewed, no bleeding, hgb 7.7, yesterday, wit gtube feeds 01/27 sdu, no overnight events, wbc 22.4, iv abx, afebrile 01/28 obtunded, no new changes, labs reviewed, zosyn 01/29 labs reviewed, nobleeding, meds noted, wbc 30k Objective Objective Current Medications Medications (Trade) Dose Ordered Sig/[place] Route PRN Reason Start Time Stop Time Status Last Admin Dose Admin Al Hydroxide/Mg Hydroxide (Mylanta) 30 ml QIDPRN PRN GT stomach upset 01/14/20 16:45 02/13/20 16:44 Artificial Tears (Akwa-Tears) 1 drop EVERY 12 HOURS BOTH EYES 01/14/20 21:00 02/13/20 20:59 01/30/20 08:59 Dextrose (Dextrose 50%) 25 ml Q30M PRN IV Hypoglycemia 01/14/20 16:45 04/13/20 16:44 01/20/20 09:08 Dextrose (Dextrose 50%) 50 ml Q30M PRN IV hypoglycemia 01/14/20 16:45 04/13/20 16:44 01/14/20 21:25 Diphenoxylate HCl/ Atropine (Lomotil) 2.5 mg Q4H PRN GT Diarrhea 01/30/20 10:00 02/21/20 11:59 Insulin Aspart (NovoLOG) No Dose Q6HR SUBQ 01/14/20 18:00 04/13/20 17:59 01/30/20 12:05 Loperamide HCl (Imodium) 2 mg Q6H PRN GT Diarrhea 01/28/20 14:18 02/27/20 14:17 01/30/20 10:59 Metoclopramide HCl (Reglan) 5 mg Q8H IVP 01/26/20 10:00 02/25/20 09:59 01/30/20 09:02 Ondansetron HCl (Zofran) 4 mg Q6H PRN IVP Nausea & Vomiting 01/26/20 09:15 02/25/20 09:14 Pantoprazole (Protonix) 40 mg DAILY IVP 01/20/20 09:00 02/19/20 08:59 01/30/20 09:00 Sodium Bicarbonate 100 ml/Dextrose/ Electrolytes 1,100 ml @ 100 mls/hr Q11H IV 01/28/20 14:00 02/27/20 13:59 01/30/20 09:01 Sodium Hypochlorite (Dakin's Half Strength) 1 applic DAILY TOPIC 01/15/20 09:00 02/14/20 08:59 01/30/20 09:00 Sodium Citrate (Bicitra) 30 ml EVERY 6 HOURS GT 01/20/20 18:00 02/19/20 17:59 01/30/20 12:02 Zinc Sulfate (Zinc Sulfate) 220 mg DAILY GT 01/15/20 09:00 04/14/20 08:59 01/30/20 08:59 Last 24 Hour Vital Signs Date Time Temp Pulse Resp B/P (MAP) Pulse Ox O2 Delivery O2 Flow Rate FiO2 01/30/20 12:07 Mechanical Ventilator 01/30/20 12:06 97.3 69 18 127/77 (94) 100 01/30/20 12:06 30 01/30/20 11:00 72 28 30 6/18/20 08:00 30 01/30/20 08:00 97.5 76 20 130/74 (92) 97 01/30/20 08:00 Mechanical Ventilator 01/30/20 08:00 76 01/30/20 07:12 78 25 30 01/30/20 04:00 30 01/30/20 04:00 Mechanical Ventilator 01/30/20 04:00 97.5 74 20 128/71 (90) 100 01/30/20 03:30 76 01/30/20 02:35 73 25 30 01/30/20 00:00 97.7 79 20 124/68 (86) 100 01/30/20 00:00 Mechanical Ventilator 01/29/20 23:42 76 01/29/20 22:40 74 27 30 01/29/20 20:00 97.7 77 20 120/66 (84) 100 01/29/20 20:00 30 01/29/20 20:00 Mechanical Ventilator 01/29/20 20:00 78 01/29/20 19:10 77 28 30 01/29/20 16:00 30 01/29/20 16:00 Mechanical Ventilator 01/29/20 16:00 72 01/29/20 15:40 97.3 75 20 119/61 (80) 100 01/29/20 14:56 75 28 30 01/29/20 12:00 Mechanical Ventilator 01/29/20 12:00 97.7 70 18 127/67 (87) 100 01/29/20 12:00 73 01/29/20 12:00 30 01/29/20 10:40 72 27 30 01/29/20 08:00 Mechanical Ventilator 01/29/20 08:00 30 01/29/20 08:00 98.2 91 17 123/86 (98) 100 91 01/29/20 07:41 78 01/29/20 07:20 79 30 30 01/29/20 04:00 Mechanical Ventilator 01/29/20 04:00 30 01/29/20 04:00 71 01/29/20 04:00 97.2 72 23 127/68 (87) 99 01/29/20 02:53 72 28 30 01/29/20 00:00 97.8 70 22 138/75 (96) 99 01/29/20 00:00 73 01/29/20 00:00 Mechanical Ventilator 01/29/20 00:00 30 01/28/20 23:31 77 25 30 01/28/20 20:00 98.1 66 25 139/71 (93) 100 01/28/20 20:00 Mechanical Ventilator 01/28/20 20:00 74 01/28/20 20:00 30 01/28/20 19:37 79 31 30 01/28/20 16:00 30 01/28/20 16:00 96.8 64 29 132/78 (96) 100 01/28/20 16:00 Mechanical Ventilator 01/28/20 16:00 65 01/28/20 15:40 62 24 30 Intake and Output 01/29/20 01/30/20 19:00 07:00 Intake Total 470 ml 1752.0 ml Output Total 300 ml 300 ml Balance 170 ml 1452.0 ml Intake Free Water 100 ml IV Total 1308.0 ml Tube Feeding 370 ml 444 ml Output Urine Total 300 ml 300 ml # Bowel Movements 4 5 Labs Test 01/28/20 03:15 01/29/20 03:35 01/29/20 12:25 01/30/20 02:50 White Blood Count 22.4 K/UL (4.8-10.8) 39.2 K/UL (4.8-10.8) 36.4 K/UL (4.8-10.8) 29.9 K/UL (4.8-10.8) Red Blood Count 3.18 M/UL (4.70-6.10) 3.16 M/UL (4.70-6.10) 3.13 M/UL (4.70-6.10) 3.05 M/UL (4.70-6.10) Hemoglobin 9.4 G/DL (14.2-18.0) 9.0 G/DL (14.2-18.0) 8.9 G/DL (14.2-18.0) 9.0 G/DL (14.2-18.0) Hematocrit 29.7 % (42.0-52.0) 29.7 % (42.0-52.0) 28.8 % (42.0-52.0) 28.4 % (42.0-52.0) Mean Corpuscular Volume 93 FL (80-99) 94 FL (80-99) 92 FL (80-99) 93 FL (80- 99) Mean Corpuscular Hemoglobin 29.6 PG (27.0-31.0) 28.5 PG (27.0-31.0) 28.4 PG (27.0-31.0) 29.6 PG (27.0-31.0) Mean Corpuscular Hemoglobin Concent 31.7 G/DL (32.0-36.0) 30.4 G/DL (32.0-36.0) 30.9 G/DL (32.0-36.0) 31.8 G/DL (32.0-36.0) Red Cell Distribution Width 17.6 % (11.6-14.8) 18.0 % (11.6-14.8) 18.3 % (11.6-14.8) 18.2 % (11.6-14.8) Platelet Count 128 K/UL (150-450) 108 K/UL (150-450) 109 K/UL (150-450) 114 K/UL (150-450) Mean Platelet Volume 12.4 FL (6.5-10.1) 12.6 FL (6.5-10.1) 11.7 FL (6.5-10.1) 12.5 FL (6.5-10.1) Neutrophils (%) (Auto) % (45.0-75.0) % (45.0-75.0) % (45.0-75.0) % (45.0- 75.0) Lymphocytes (%) (Auto) % (20.0-45.0) % (20.0-45.0) % (20.0-45.0) % (20.0- 45.0) Monocytes (%) (Auto) % (1.0-10.0) % (1.0-10.0) % (1.0-10.0) % (1.0-10.0) Eosinophils (%) (Auto) % (0.0-3.0) % (0.0-3.0) % (0.0-3.0) % (0.0-3.0) Basophils (%) (Auto) % (0.0-2.0) % (0.0-2.0) % (0.0-2.0) % (0.0-2.0) Differential Total Cells Counted 100 100 100 100 Neutrophils % (Manual) 81 % (45-75) 89 % (45-75) 88 % (45-75) 84 % (45-75) Lymphocytes % (Manual) 7 % (20-45) 7 % (20-45) 3 % (20-45) 6 % (20-45) Monocytes % (Manual) 12 % (1-10) 3 % (1-10) 7 % (1-10) 6 % (1-10) Eosinophils % (Manual) 0 % (0-3) 1 % (0-3) 2 % (0-3) 4 % (0-3) Basophils % (Manual) 0 % (0-2) 0 % (0-2) 0 % (0-2) 0 % (0-2) Band Neutrophils 0 % (0-8) 0 % (0-8) 0 % (0-8) 0 % (0-8) Platelet Estimate Decreased Decreased Decreased Decreased Platelet Morphology Normal Normal Normal Normal Hypochromasia 2+ 1+ 1+ 1+ Anisocytosis 1+ 1+ 1+ 1+ Sodium Level 144 MMOL/L (136-145) 146 MMOL/L (136-145) Potassium Level 3.5 MMOL/L (3.5-5.1) 3.7 MMOL/L (3.5-5.1) Chloride Level 113 MMOL/L (98-107) 112 MMOL/L (98-107) Carbon Dioxide Level 12 MMOL/L (21-32) 15 MMOL/L (21-32) Anion Gap 19 mmol/L (5-15) 19 mmol/L (5-15) Blood Urea Nitrogen 111 mg/dL (7-18) 110 mg/dL (7-18) Creatinine 4.5 MG/DL (0.55-1.30) 4.4 MG/DL (0.55-1.30) Estimat Glomerular Filtration Rate 16.7 mL/min (>60) 17.1 mL/min (>60) Glucose Level 173 MG/DL (74-106) 201 MG/DL (74-106) Calcium Level 8.9 MG/DL (8.5-10.1) 8.5 MG/DL (8.5-10.1) Total Bilirubin 1.5 MG/DL (0.2-1.0) 1.5 MG/DL (0.2-1.0) Direct Bilirubin 1.2 MG/DL (0.0-0.3) 1.1 MG/DL (0.0-0.3) Aspartate Amino Transf (AST/SGOT) 78 U/L (15-37) 49 U/L (15-37) Alanine Aminotransferase (ALT/SGPT) 116 U/L (12-78) 81 U/L (12-78) Alkaline Phosphatase 220 U/L (46-116) 187 U/L (46-116) Total Protein 5.5 G/DL (6.4-8.2) 5.2 G/DL (6.4-8.2) Albumin < 0.6 G/DL (3.4-5.0) 0.4 G/DL (3.4-5.0) Globulin 5.4 g/dL 4.8 g/dL Height (Feet): 5 Height (Inches): 5.00 Weight (Pounds): 193 Objective Physical Exam: Vitals: reviewed General: NAD ++obtunded HEENT: nc, at, mouth guard+ Neck: supple++trach Chest: clear breath sounds bilaterally Cardiovascular: RRR, no s3, s4 Abdomen/GI: soft, nontender, nd ++gtube, rectal tube+ Extremities: no cce, normal range of motion, ++ Spasticity in the left upper extremity. Flaccid on the right, scrotal blisters++ Neuro: nonfocal : babb+ Wilmer Turner MD Jan 30, 2020 13:07
--- NOTE | 2020-01-30 15:14 | Surgery Progress Note ---
Surgery Progress Note Subjective Procedure Performed right femoral central venous catheter removal Additional Comments no acute events labs reviewed exam stable Objective Last 24 Hour Vital Signs Date Time Temp Pulse Resp B/P (MAP) Pulse Ox O2 Delivery O2 Flow Rate FiO2 01/30/20 15:04 62 24 30 01/30/20 12:07 Mechanical Ventilator 01/30/20 12:06 97.3 69 18 127/77 (94) 100 01/30/20 12:06 30 01/30/20 12:00 73 01/30/20 11:00 72 28 30 01/30/20 08:00 30 01/30/20 08:00 97.5 76 20 130/74 (92) 97 01/30/20 08:00 Mechanical Ventilator 01/30/20 08:00 76 01/30/20 07:12 78 25 30 01/30/20 04:00 30 01/30/20 04:00 Mechanical Ventilator 01/30/20 04:00 97.5 74 20 128/71 (90) 100 01/30/20 03:30 76 01/30/20 02:35 73 25 30 01/30/20 00:00 97.7 79 20 124/68 (86) 100 01/30/20 00:00 Mechanical Ventilator 01/29/20 23:42 76 01/29/20 22:40 74 27 30 01/29/20 20:00 97.7 77 20 120/66 (84) 100 01/29/20 20:00 30 01/29/20 20:00 Mechanical Ventilator 01/29/20 20:00 78 01/29/20 19:10 77 28 30 01/29/20 16:00 30 01/29/20 16:00 Mechanical Ventilator 01/29/20 16:00 72 01/29/20 15:40 97.3 75 20 119/61 (80) 100 I&O Intake and Output 01/29/20 01/30/20 19:00 07:00 Intake Total 470 ml 1752.0 ml Output Total 300 ml 300 ml Balance 170 ml 1452.0 ml Intake Free Water 100 ml IV Total 1308.0 ml Tube Feeding 370 ml 444 ml Output Urine Total 300 ml 300 ml # Bowel Movements 4 5 Dressing: other Wound: other Drains: other Cardiovascular: RSR Respiratory: decreased breath sounds Abdomen: soft, distended, present bowel sounds Extremities: edema, no cyanosis Laboratory Tests Test 01/30/20 02:50 White Blood Count 29.9 K/UL (4.8-10.8) *H Red Blood Count 3.05 M/UL (4.70-6.10) L Hemoglobin 9.0 G/DL (14.2-18.0) L Hematocrit 28.4 % (42.0-52.0) L Mean Corpuscular Volume 93 FL (80-99) Mean Corpuscular Hemoglobin 29.6 PG (27.0-31.0) Mean Corpuscular Hemoglobin Concent 31.8 G/DL (32.0-36.0) L Red Cell Distribution Width 18.2 % (11.6-14.8) H Platelet Count 114 K/UL (150-450) L Mean Platelet Volume 12.5 FL (6.5-10.1) H Neutrophils (%) (Auto) % (45.0-75.0) Lymphocytes (%) (Auto) % (20.0-45.0) Monocytes (%) (Auto) % (1.0-10.0) Eosinophils (%) (Auto) % (0.0-3.0) Basophils (%) (Auto) % (0.0-2.0) Differential Total Cells Counted 100 Neutrophils % (Manual) 84 % (45-75) H Lymphocytes % (Manual) 6 % (20-45) L Monocytes % (Manual) 6 % (1-10) Eosinophils % (Manual) 4 % (0-3) H Basophils % (Manual) 0 % (0-2) Band Neutrophils 0 % (0-8) Platelet Estimate Decreased L Platelet Morphology Normal Hypochromasia 1+ Anisocytosis 1+ Plan Problems: (1) Hyponatremia (2) ARF (acute renal failure) (3) Hyperkalemia (4) Pressure sore on sacrum Assessment & Plan: Pt presented on admission with Sacral Pressure injury and Necrosis Both Both R lower ext, R foot and L foot. Generalized edema noted. Both upper ext noted to have multiple serous blisters ,some of which are weeping serous exudate. Full thickness Sacral Pressure Injury with undermined Borders. Base of wound is 75% loose necrotic tissue,25% bree. Bone exposure at base of wound. Area of necrosis noted at distal aspect of wound in space between wound and anus.Edges are macerated. Wound is malodorous.(L)9.5cm x (W)9.2cm x (D)2.9cm,undermining clockwise 10-3 by 3.8cm @12 o'clock. Scattered areas of hyperpigmentation noted to R and L clefts of buttocks. Unable to determine exudate as pt is continuously oozing large amt of semi soft black stool and leaking into wound because of close proximity to his rectum. At upper, R gluteal cheek is additional Pressure Injury with small amt Biofilm at base of wound. Edges are pink and adherent to base of wound. No exudate noted.(L)3cm x (W)2.6cm. Medially to distal Tibia,and extending to R foot is necrotic and malodorous.Wound is partially opened at posterior R tibia but is dry . L foot is necrotic and malodorous. No exudate noted. Tx.Plan: Cleanse Sacral wound with Dakin's 0.25% archana.. Loosely Pack wound with Dakin's moistened Kerlix.Apply Moisture Barrier Paste periwound.Cover with Optifoam drsg.Change Daily and PRN. Cleanse R lower ext and R foot with Dakin's 0.25% Archana. Cover wounds with ABD Pads.Wrap with Kerlix Daily and prn. Cleanse L foot Wounds with Dakin's 0.25% Archana. Cover wounds with ABD Pads and wrap with Kerlix Daily and prn. soft collar placed (5) Upper GI bleed Assessment & Plan: Patient with sepsis, abnormal labs, GI bleed, pending COVID eval. Labs noted. Exam reviewed. Chest x-ray noted as below. Discussed with GI. Plan for endoscopy once COVID status evaluated. Trend hemoglobin for now transfuse PRN. G-tube is functional and okay for medications and will plan tube feeds accordingly. No acute surgical intervention as patient is actively bleeding. Proton pump inhibitor recommended and Rx as written. Will follow with recommendations thank you for let me participate in patient's care plt low anemia prognosis guarded no active GI bleeding noted Status post PEG Tolerating tube feeds but still having diarrhea Difficult with rectal tube slides right out likely from spinal injury Anasarca stable No active bleeding line Free currently will monitor closely There is a tracheostomy in place. Vascularity is normal. Hazy densities in the lung bases may be layering effusions. Cardiac and mediastinal silhouette are within normal limits. The bony thorax appear unremarkable. line removed will monitor for bleeding IMPRESSION: Bibasilar hazy densities perhaps layering effusions. right fem line not functional noted manipulation as suture was dislodged. line replaced 1. Two or three gastric AVMs. 2. Ulcer with a small visible vessel, status post gold probe bipolar cauterization. DAILY ESTIMATED NEEDS: Needs based on Critical Care, Wounds, TR / 61kg 25-30 kcals/kg 7218-5181 total kcals 0.8-1.25 (increase w/ renal improvement) g protein/kg 49-76 g total protein 25-30 mL/kg 3836-3261 total fluid mLs NUTRITION DIAGNOSIS: * Swallowing difficulty R/T respiratory status, dysphagia as evidenced by trach/vent dep, PEG dep. * Increased kcal/prot intake needs R/T wound healing as evidenced by admtited w/ multiple wounds including full thickness wound @ sacrum, pressure Injury with small amt Biofilm at base of wound @ uppera R gluteal cheek, necrotic wound @ medial to distal Tibia,and extending to R foot and L foot * Altered nutrition related lab R/T TR as evidenced by elev BUN (215-> 96), elev creat (5.2->4.2), low Na (124 ->148), elev K (6.7 -> wnl) CURRENT TF:Nepro @ 37ml/hr x 24 hrs ENTERAL NUTRITION RECOMMENDATIONS: Nepro @ 37ml/hr x 24 hrs to provide 888ml, 1598kcal, 72g prot, 646ml free water * Maintain current TF -> rec Nepro at this time given TR (Creat 5.2-> 4.3) w/ elev K upon adm * HOB over 30 degrees/ water flush per MD W/ CONTINUED DIARRHEA, consider trial of elemental formula of Vital AF 1.2 @ goal rate of 45ml/hr x 24 hrs to provide 1080ml, 1296kcal, 81g prot, 876lm free water: will meet 85% est kcal and 106% est prot needs. -----> W/ non renal TF, monitor lytes closely (K wnl at this time, phos level not available) ADDITIONAL RECOMMENDATIONS: * Per SNF: HT=62" WT= 135lbs (12/25/19) * Monitor renal fxn and lytes (Creat 5.3 -> 4.1) -> check phos and mag (not checked since adm) * Wound healing: Once TF well tolerated at goal, add Ajay BID * Monitor for hypoglycemia: no further episodes (now 70's) * Add probiotics to help improve gut ewelina- + diarrhea -> consider trial of elemental TF of Vital AF Study is somewhat limited due to anasarca and overlying bowel gas, midline gastrostomy bandages. Gallbladder demonstrates sludge and tiny stones. The gallbladder wall is mildly thickened. Sonographic Velázquez sign could not be assessed. Common bile duct measures 4 mm in diameter. No intrahepatic biliary ductal dilatation. The liver is enlarged. It demonstrates normal echogenicity. No focal abnormality. Small amount of ascites fluid is seen at the anterior liver surface and adjacent to the gallbladder, left upper quadrant, and in the pelvis Portal vein and hepatic veins are patent. Pancreas is obscured by bowel gas. Spleen is unremarkable. Left kidney measures 11.4 cm in length. Right kidney measures 10.9 cm length. Both kidneys demonstrate normal echogenicity. There is no hydronephrosis. No focal abnormality . Abdominal aorta is partially obscured by bowel gas, visualized portions are non-aneurysmal . There are small bilateral pleural effusions (6) Severe malnutrition Assessment & Plan: emesis tf on hold monitor residuals (7) Respiratory failure Javid Singh Jan 30, 2020 15:14
[2020-01-30 16:00] VITALS: BP 122/66
[2020-01-30 20:00] VITALS: BP 128/69
[2020-01-31] VITALS: BP 132/73
[2020-01-31] MEDS: Metoclopramide 10mg/2ml Inj IVP SCH ×3 (01:07→17:42)
[2020-01-31 04:00] VITALS: BP 144/76
[2020-01-31 05:16] LABS: ANION GAP 16 mmol/L (5-15); BLOOD UREA NITROGEN 109 mg/dL (7-18); CALCIUM 8.3 MG/DL (8.5-10.1); CARBON DIOXIDE 21 MMOL/L (21-32); CHLORIDE 108 MMOL/L (98-107); CREATININE 4.4 MG/DL (0.55-1.30); POTASSIUM 3.7 MMOL/L (3.5-5.1); SODIUM 145 MMOL/L (136-145)
[2020-01-31] MEDS: Sodium Citrate 30ml GT SCH ×3 (06:06→17:42)
[2020-01-31] MEDS: Insulin NovoLOG Flexpen S/S (Mod) SUBQ SCH ×4 (06:09→23:35)
[2020-01-31 08:00] VITALS: BP 151/82
[2020-01-31] MEDS: KCL IV SCH ×2 (08:18→19:08)
[2020-01-31] MEDS: SODIUM BICARBONATE IV SCH ×2 (08:18→19:08)
[2020-01-31] MEDS: D5W IV SCH ×2 (08:18→19:08)
[2020-01-31] MEDS: Dakin's 0.25% (Half Strength) 16oz TOPIC SCH (08:19)
--- NOTE | 2020-01-31 08:32 | Hematology/Onc Progress Note ---
Assessment/Plan Assessment/Plan Assessment and recs # Thrombocytopenia - potential causes multifactorial, evaluate liver and viral etiologies to begin, also could be related to underlying medications patient has received. May be due to DIC in this case, or consumption --> Hep panel and HIV negative --> US abd to evaluate for cirrhosis and hsm --> positive for mild hepatomegaly --> Peripheral smear ordered to evaluate for blasts /schistocytes --> abx and other meds have been reviewed --> ok for ppx if plt >50k w/ either heparin or lovenox --> Transfuse if Plt < 20k and fever, or if Plt < 10k without fever --> plt trend 41-->32-->21k-->20 -->61k-->45-->62-->51->38->55->50->70-->90--> 112 -->118 -->106-->109-->109-->114 # Anemia due to Upper GI bleed, hematuria --> no evidence of hemolysis is noted --> smear noted --> anemia panel reviewed, ferritin high --> po iron ok --> for hematuria as per urology --> Pending endoscopy when clear from covid19 --> hgb trend: 9.1 ->8.3->6.9-->8.1-->8.3-->7.6 -->6.6-->10.5-->9.8-->9.3->8.5-- >8.6 -->8.5-->8.3-->8 -->7.7-->8.9 --> prbc: 2 units 01/02, 01/12 # Leukocytosis due to e/coli/kleb pna --> wbc trend 23-->32-->17.1-->13.9-->10-->15-->17.7-->21.8-->17-->20.2-->23--> 36.4-->30 --> as per id recs --> on connor/wilma--> vanc-->zosyn --> c diff negative # Hyperkalemia --> kayxelate as needed --> k trend # ARF (acute renal failure) --> per renal # Hyponatremia # Gram negative pneumonia # Ventilator dependent respiratory failure # intracranial hemorrhage # paraplegia # Dysphagia with gtube # Dvt ppx scds The timing of this note does not necessarily reflect the time of the patient was seen. Greatly appreciate consultation. Subjective Allergies: Coded Allergies: No Known Allergies (Unverified , 10/07/19) Subjective 01/03obtunded, s/p rbc x2, hgb improved to 9.1, us abd reviewed, hematuria+ 01/04 plt are better, got 1 unit pf platets today as well, plt now 61k, less gi bleed overnight, some black tarry stool noted 01/05 nv, labs noted, hgb 8.5, no hemolysis noted, no bleeding, plt 83, egd tomorrow 01/06 egd for this am, results are pending, labs noted 01/09 no major changes, labs noted, no bleeding wbc higher, on abx 01/10 sdu, wbc improving, inr 1.4, vent, h/h stable, no distress 01/11 hgb 7.6, no tx required, repeat cbc for tomorrow, on vent 01/12 remains on vent, hgb 6.6, getting 2 iunits prbc today, will need picc 01/13 trach to vent, nepro feeds ongoing, hgb improved 10.5 01/14 s/p egd w/ peg, rectal tube, no acute events, h/h stable 01/15 remains obtunded, minimal blood in stool, will hold off on platelet administration 01/16 labs noted, nob leeding, meds reviewed, plt higher 01/18 sdu, nonverbal, no acute events, vent, vanc 01/19 remains on vent, with po vanc, wbc higher as is plt 01/20 sdu, obtunded, blisters to groin/scrotum area, labs reviewed 01/21 ctap and us abd reviewed, mild hepatomegaly, hgb 8.5, inr 1.8 01/22 remains on zosyn at this time, no bleeding, hgb .3, wbc 17 01/23 wbc trending up, contact isolation, no acute events 01/25 remains obtunded, dw Rn, wbc 23, hgb 7.7, holding off transf 01/26 labs reviewed, no bleeding, hgb 7.7, yesterday, wit gtube feeds 01/27 sdu, no overnight events, wbc 22.4, iv abx, afebrile 01/28 obtunded, no new changes, labs reviewed, zosyn 01/29 labs reviewed, no bleeding, meds noted, wbc 30k 01/30 no acute events, nonverbal, c diff negative, vent Objective Objective Current Medications Medications (Trade) Dose Ordered Sig/[place] Route PRN Reason Start Time Stop Time Status Last Admin Dose Admin Al Hydroxide/Mg Hydroxide (Mylanta) 30 ml QIDPRN PRN GT stomach upset 01/14/20 16:45 02/13/20 16:44 Artificial Tears (Akwa-Tears) 1 drop EVERY 12 HOURS BOTH EYES 01/14/20 21:00 02/13/20 20:59 01/31/20 08:18 Dextrose (Dextrose 50%) 25 ml Q30M PRN IV Hypoglycemia 01/14/20 16:45 04/13/20 16:44 01/20/20 09:08 Dextrose (Dextrose 50%) 50 ml Q30M PRN IV hypoglycemia 01/14/20 16:45 04/13/20 16:44 01/14/20 21:25 Diphenoxylate HCl/ Atropine (Lomotil) 2.5 mg Q4H PRN GT Diarrhea 01/30/20 10:00 02/21/20 11:59 Insulin Aspart (NovoLOG) No Dose Q6HR SUBQ 01/14/20 18:00 04/13/20 17:59 01/31/20 06:09 Loperamide HCl (Imodium) 2 mg Q6H PRN GT Diarrhea 01/28/20 14:18 02/27/20 14:17 01/30/20 23:37 Metoclopramide HCl (Reglan) 5 mg Q8H IVP 01/26/20 10:00 02/25/20 09:59 01/31/20 01:07 Ondansetron HCl (Zofran) 4 mg Q6H PRN IVP Nausea & Vomiting 01/26/20 09:15 02/25/20 09:14 Pantoprazole (Protonix) 40 mg DAILY IVP 01/20/20 09:00 02/19/20 08:59 01/30/20 09:00 Sodium Bicarbonate 100 ml/Dextrose/ Electrolytes 1,100 ml @ 100 mls/hr Q11H IV 01/28/20 14:00 02/27/20 13:59 01/31/20 08:18 Sodium Hypochlorite (Dakin's Half Strength) 1 applic DAILY TOPIC 01/15/20 09:00 02/14/20 08:59 01/31/20 08:19 Sodium Citrate (Bicitra) 30 ml EVERY 6 HOURS GT 01/20/20 18:00 02/19/20 17:59 01/31/20 06:06 Zinc Sulfate (Zinc Sulfate) 220 mg DAILY GT 01/15/20 09:00 04/14/20 08:59 01/30/20 08:59 Last 24 Hour Vital Signs Date Time Temp Pulse Resp B/P (MAP) Pulse Ox O2 Delivery O2 Flow Rate FiO2 01/31/20 07:27 72 25 30 01/31/20 04:00 67 01/31/20 04:00 30 01/31/20 04:00 Mechanical Ventilator 01/31/20 04:00 96.4 67 22 144/76 (98) 100 01/31/20 03:28 65 24 30 01/31/20 00:00 67 01/31/20 00:00 30 01/31/20 00:00 96.5 62 22 132/73 (92) 100 01/31/20 00:00 62 01/31/20 00:00 Mechanical Ventilator 01/30/20 23:18 60 24 30 01/30/20 20:00 30 01/30/20 20:00 96.4 65 24 128/69 (88) 100 01/30/20 20:00 64 01/30/20 20:00 Mechanical Ventilator 01/30/20 19:46 68 25 30 01/30/20 16:00 Mechanical Ventilator 01/30/20 16:00 30 01/30/20 16:00 97.3 62 25 122/66 (84) 100 01/30/20 16:00 62 01/30/20 15:04 62 24 30 01/30/20 12:07 Mechanical Ventilator 01/30/20 12:06 97.3 69 18 127/77 (94) 100 01/30/20 12:06 30 01/30/20 12:00 73 01/30/20 11:00 72 28 30 01/30/20 08:00 30 01/30/20 08:00 97.5 76 20 130/74 (92) 97 01/30/20 08:00 Mechanical Ventilator 01/30/20 08:00 76 01/30/20 07:12 78 25 30 01/30/20 04:00 30 01/30/20 04:00 Mechanical Ventilator 01/30/20 04:00 97.5 74 20 128/71 (90) 100 01/30/20 03:30 76 01/30/20 02:35 73 25 30 01/30/20 00:00 97.7 79 20 124/68 (86) 100 01/30/20 00:00 Mechanical Ventilator 01/29/20 23:42 76 01/29/20 22:40 74 27 30 01/29/20 20:00 97.7 77 20 120/66 (84) 100 01/29/20 20:00 30 01/29/20 20:00 Mechanical Ventilator 01/29/20 20:00 78 01/29/20 19:10 77 28 30 01/29/20 16:00 30 01/29/20 16:00 Mechanical Ventilator 01/29/20 16:00 72 01/29/20 15:40 97.3 75 20 119/61 (80) 100 01/29/20 14:56 75 28 30 01/29/20 12:00 Mechanical Ventilator 01/29/20 12:00 97.7 70 18 127/67 (87) 100 01/29/20 12:00 73 01/29/20 12:00 30 01/29/20 10:40 72 27 30 Intake and Output 01/30/20 01/31/20 19:00 07:00 Intake Total 1584 ml 1794 ml Output Total 551 ml 300 ml Balance 1033 ml 1494 ml Intake Free Water 200 ml 150 ml IV Total 700 ml 1200 ml Tube Feeding 444 ml 444 ml Other 240 ml Output Urine Total 550 ml 300 ml Stool Total 1 ml # Bowel Movements 5 2 Labs Test 01/29/20 03:35 01/29/20 12:25 01/30/20 02:50 01/30/20 15:14 White Blood Count 39.2 K/UL (4.8-10.8) 36.4 K/UL (4.8-10.8) 29.9 K/UL (4.8-10.8) Red Blood Count 3.16 M/UL (4.70-6.10) 3.13 M/UL (4.70-6.10) 3.05 M/UL (4.70-6.10) Hemoglobin 9.0 G/DL (14.2-18.0) 8.9 G/DL (14.2-18.0) 9.0 G/DL (14.2-18.0) Hematocrit 29.7 % (42.0-52.0) 28.8 % (42.0-52.0) 28.4 % (42.0-52.0) Mean Corpuscular Volume 94 FL (80-99) 92 FL (80-99) 93 FL (80-99) Mean Corpuscular Hemoglobin 28.5 PG (27.0-31.0) 28.4 PG (27.0-31.0) 29.6 PG (27.0-31.0) Mean Corpuscular Hemoglobin Concent 30.4 G/DL (32.0-36.0) 30.9 G/DL (32.0-36.0) 31.8 G/DL (32.0-36.0) Red Cell Distribution Width 18.0 % (11.6-14.8) 18.3 % (11.6-14.8) 18.2 % (11.6-14.8) Platelet Count 108 K/UL (150-450) 109 K/UL (150-450) 114 K/UL (150-450) Mean Platelet Volume 12.6 FL (6.5-10.1) 11.7 FL (6.5-10.1) 12.5 FL (6.5-10.1) Neutrophils (%) (Auto) % (45.0-75.0) % (45.0-75.0) % (45.0-75.0) Lymphocytes (%) (Auto) % (20.0-45.0) % (20.0-45.0) % (20.0-45.0) Monocytes (%) (Auto) % (1.0-10.0) % (1.0-10.0) % (1.0-10.0) Eosinophils (%) (Auto) % (0.0-3.0) % (0.0-3.0) % (0.0-3.0) Basophils (%) (Auto) % (0.0-2.0) % (0.0-2.0) % (0.0-2.0) Differential Total Cells Counted 100 100 100 Neutrophils % (Manual) 89 % (45-75) 88 % (45-75) 84 % (45-75) Lymphocytes % (Manual) 7 % (20-45) 3 % (20-45) 6 % (20-45) Monocytes % (Manual) 3 % (1-10) 7 % (1-10) 6 % (1-10) Eosinophils % (Manual) 1 % (0-3) 2 % (0-3) 4 % (0-3) Basophils % (Manual) 0 % (0-2) 0 % (0-2) 0 % (0-2) Band Neutrophils 0 % (0-8) 0 % (0-8) 0 % (0-8) Platelet Estimate Decreased Decreased Decreased Platelet Morphology Normal Normal Normal Hypochromasia 1+ 1+ 1+ Anisocytosis 1+ 1+ 1+ Sodium Level 146 MMOL/L (136-145) Potassium Level 3.7 MMOL/L (3.5-5.1) Chloride Level 112 MMOL/L (98-107) Carbon Dioxide Level 15 MMOL/L (21-32) Anion Gap 19 mmol/L (5-15) Blood Urea Nitrogen 110 mg/dL (7-18) Creatinine 4.4 MG/DL (0.55-1.30) Estimat Glomerular Filtration Rate 17.1 mL/min (>60) Glucose Level 201 MG/DL (74-106) Calcium Level 8.5 MG/DL (8.5-10.1) Total Bilirubin 1.5 MG/DL (0.2-1.0) Direct Bilirubin 1.1 MG/DL (0.0-0.3) Aspartate Amino Transf (AST/SGOT) 49 U/L (15-37) Alanine Aminotransferase (ALT/SGPT) 81 U/L (12-78) Alkaline Phosphatase 187 U/L (46-116) Total Protein 5.2 G/DL (6.4-8.2) Albumin 0.4 G/DL (3.4-5.0) Globulin 4.8 g/dL Activated Partial Thromboplast Time 38 SEC (23-33) Test 01/31/20 03:05 Sodium Level 145 MMOL/L (136-145) Potassium Level 3.7 MMOL/L (3.5-5.1) Chloride Level 108 MMOL/L (98-107) Carbon Dioxide Level 21 MMOL/L (21-32) Anion Gap 16 mmol/L (5-15) Blood Urea Nitrogen 109 mg/dL (7-18) Creatinine 4.4 MG/DL (0.55-1.30) Estimat Glomerular Filtration Rate 17.1 mL/min (>60) Glucose Level 205 MG/DL (74-106) Calcium Level 8.3 MG/DL (8.5-10.1) Micro Microbiology Date/Time Source Procedure Growth Status 01/30/20 17:15 Stool Clostridium difficile Toxin Assay - Final Complete Height (Feet): 5 Height (Inches): 5.00 Weight (Pounds): 175 Objective Physical Exam: Vitals: reviewed General: NAD ++obtunded HEENT: nc, at, mouth guard+ Neck: supple++trach Chest: clear breath sounds bilaterally Cardiovascular: RRR, no s3, s4 Abdomen/GI: soft, nontender, nd ++gtube, rectal tube+ Extremities: no cce, normal range of motion, ++ Spasticity in the left upper extremity. Flaccid on the right, scrotal blisters++ Neuro: nonfocal : skinny+ Wilmer Turner MD Jan 31, 2020 08:32
--- NOTE | 2020-01-31 08:45 | Nephrology Progress Note ---
Assessment/Plan Problem List: (1) Respiratory failure (2) ARF (acute renal failure) (3) Hyponatremia (4) Hyperkalemia (5) Upper GI bleed (6) Pressure sore on sacrum (7) Diarrhea (8) Severe malnutrition Plan diarrhea, reorder iv fluids,BUN/creatinine 70/.91 11/2019, enteral hydration , reji likely from infection, severe hypoalbuminemia and anasarca with poor prognosis Na higher iv adjusted, bicitra started for acidosis, add bicarb , serum bicarb better still large fluid losses from diarrhea Subjective ROS Limited/Unobtainable: Yes Objective Objective Last 24 Hour Vital Signs Date Time Temp Pulse Resp B/P (MAP) Pulse Ox O2 Delivery O2 Flow Rate FiO2 01/31/20 07:27 72 25 30 01/31/20 04:00 67 01/31/20 04:00 30 01/31/20 04:00 Mechanical Ventilator 01/31/20 04:00 96.4 67 22 144/76 (98) 100 01/31/20 03:28 65 24 30 01/31/20 00:00 67 01/31/20 00:00 30 01/31/20 00:00 96.5 62 22 132/73 (92) 100 01/31/20 00:00 62 01/31/20 00:00 Mechanical Ventilator 01/30/20 23:18 60 24 30 01/30/20 20:00 30 01/30/20 20:00 96.4 65 24 128/69 (88) 100 01/30/20 20:00 64 01/30/20 20:00 Mechanical Ventilator 01/30/20 19:46 68 25 30 01/30/20 16:00 Mechanical Ventilator 01/30/20 16:00 30 01/30/20 16:00 97.3 62 25 122/66 (84) 100 01/30/20 16:00 62 01/30/20 15:04 62 24 30 01/30/20 12:07 Mechanical Ventilator 01/30/20 12:06 97.3 69 18 127/77 (94) 100 01/30/20 12:06 30 01/30/20 12:00 73 01/30/20 11:00 72 28 30 Intake and Output 01/30/20 01/31/20 19:00 07:00 Intake Total 1584 ml 1794 ml Output Total 551 ml 300 ml Balance 1033 ml 1494 ml Intake Free Water 200 ml 150 ml IV Total 700 ml 1200 ml Tube Feeding 444 ml 444 ml Other 240 ml Output Urine Total 550 ml 300 ml Stool Total 1 ml # Bowel Movements 5 2 Laboratory Tests 01/30/20 15:14: Activated Partial Thromboplast Time 38H 01/31/20 03:05: Sodium Level 145, Potassium Level 3.7, Chloride Level 108H, Carbon Dioxide Level 21, Anion Gap 16H, Blood Urea Nitrogen 109H, Creatinine 4.4H, Estimat Glomerular Filtration Rate 17.1, Glucose Level 205H, Calcium Level 8.3L Height (Feet): 5 Height (Inches): 5.00 Weight (Pounds): 175 General Appearance: lethargic, other - on vent Cardiovascular: regular rhythm Respiratory/Chest: crackles/rales Abdomen: soft Extremities: moderate edema, other - gangrene feet Neurologic: unresponsive Martin Yee MD Jan 31, 2020 08:45
--- NOTE | 2020-01-31 08:57 | Pulmonology Progress Note ---
Subjective ROS Limited/Unobtainable: Yes Constitutional: Denies: fever Gastrointestinal/Abdominal: Reports: diarrhea Allergies: Coded Allergies: No Known Allergies (Unverified , 10/07/19) All Systems: reviewed and negative except above Subjective care noted on vent renal function poor wbc still high labs noted aware of status Objective Last 24 Hour Vital Signs Date Time Temp Pulse Resp B/P (MAP) Pulse Ox O2 Delivery O2 Flow Rate FiO2 01/31/20 07:27 72 25 30 01/31/20 04:00 67 01/31/20 04:00 30 01/31/20 04:00 Mechanical Ventilator 01/31/20 04:00 96.4 67 22 144/76 (98) 100 01/31/20 03:28 65 24 30 01/31/20 00:00 67 01/31/20 00:00 30 01/31/20 00:00 96.5 62 22 132/73 (92) 100 01/31/20 00:00 62 01/31/20 00:00 Mechanical Ventilator 01/30/20 23:18 60 24 30 01/30/20 20:00 30 01/30/20 20:00 96.4 65 24 128/69 (88) 100 01/30/20 20:00 64 01/30/20 20:00 Mechanical Ventilator 01/30/20 19:46 68 25 30 01/30/20 16:00 Mechanical Ventilator 01/30/20 16:00 30 01/30/20 16:00 97.3 62 25 122/66 (84) 100 01/30/20 16:00 62 01/30/20 15:04 62 24 30 01/30/20 12:07 Mechanical Ventilator 01/30/20 12:06 97.3 69 18 127/77 (94) 100 01/30/20 12:06 30 01/30/20 12:00 73 01/30/20 11:00 72 28 30 Intake and Output 01/30/20 01/31/20 19:00 07:00 Intake Total 1584 ml 1794 ml Output Total 551 ml 300 ml Balance 1033 ml 1494 ml Intake Free Water 200 ml 150 ml IV Total 700 ml 1200 ml Tube Feeding 444 ml 444 ml Other 240 ml Output Urine Total 550 ml 300 ml Stool Total 1 ml # Bowel Movements 5 2 Objective WDWN trach clear breath sounds bilaterally without rhonchi or wheeze [id number] without MRG NABS nontender no HSM no CCE poor LOC reviewed and edited Microbiology Date/Time Source Procedure Growth Status 01/30/20 17:15 Stool Clostridium difficile Toxin Assay - Final Complete Laboratory Tests 01/30/20 15:14: Activated Partial Thromboplast Time 38H 01/31/20 03:05: Sodium Level 145, Potassium Level 3.7, Chloride Level 108H, Carbon Dioxide Level 21, Anion Gap 16H, Blood Urea Nitrogen 109H, Creatinine 4.4H, Estimat Glomerular Filtration Rate 17.1, Glucose Level 205H, Calcium Level 8.3L Current Medications Medications (Trade) Dose Ordered Sig/[place] Route PRN Reason Start Time Stop Time Status Last Admin Dose Admin Al Hydroxide/Mg Hydroxide (Mylanta) 30 ml QIDPRN PRN GT stomach upset 01/14/20 16:45 02/13/20 16:44 Artificial Tears (Akwa-Tears) 1 drop EVERY 12 HOURS BOTH EYES 01/14/20 21:00 02/13/20 20:59 01/31/20 08:18 Dextrose (Dextrose 50%) 25 ml Q30M PRN IV Hypoglycemia 01/14/20 16:45 04/13/20 16:44 01/20/20 09:08 Dextrose (Dextrose 50%) 50 ml Q30M PRN IV hypoglycemia 01/14/20 16:45 04/13/20 16:44 01/14/20 21:25 Diphenoxylate HCl/ Atropine (Lomotil) 2.5 mg Q4H PRN GT Diarrhea 01/30/20 10:00 02/21/20 11:59 Insulin Aspart (NovoLOG) No Dose Q6HR SUBQ 01/14/20 18:00 04/13/20 17:59 01/31/20 06:09 Loperamide HCl (Imodium) 2 mg Q6H PRN GT Diarrhea 01/28/20 14:18 02/27/20 14:17 01/30/20 23:37 Metoclopramide HCl (Reglan) 5 mg Q8H IVP 01/26/20 10:00 02/25/20 09:59 01/31/20 01:07 Ondansetron HCl (Zofran) 4 mg Q6H PRN IVP Nausea & Vomiting 01/26/20 09:15 02/25/20 09:14 Pantoprazole (Protonix) 40 mg DAILY IVP 01/20/20 09:00 02/19/20 08:59 01/30/20 09:00 Sodium Bicarbonate 100 ml/Dextrose/ Electrolytes 1,100 ml @ 100 mls/hr Q11H IV 01/28/20 14:00 02/27/20 13:59 01/31/20 08:18 Sodium Hypochlorite (Dakin's Half Strength) 1 applic DAILY TOPIC 01/15/20 09:00 02/14/20 08:59 01/31/20 08:19 Sodium Citrate (Bicitra) 30 ml EVERY 6 HOURS GT 01/20/20 18:00 02/19/20 17:59 01/31/20 06:06 Zinc Sulfate (Zinc Sulfate) 220 mg DAILY GT 01/15/20 09:00 04/14/20 08:59 01/30/20 08:59 Assessment/Plan Assessment/Plan IMPRESSION chronic respiratory failure Acute on chronic renal failure elevated K anemia GIB leukocytosis possible sepsis oral bleeding diarrhea transaminitis PLAN ID , GI and renal clearance vent as is monitor vitals not safe for dc full code/ per prognosis very poor for recovery evaluate for rueda impression, plan, and exam edited and reviewed in detail care discussed with Lorenzo hCase MD Jan 31, 2020 08:57
[2020-01-31] MEDS: Pantoprazole Inj IVP SCH (09:41)
[2020-01-31] MEDS: Zinc Sulfate 220mg GT SCH (09:41)
--- NOTE | 2020-01-31 10:59 | Infectious Diseases Prog Note ---
Assessment/Plan Assessment/Plan antibiotics : none A 1. providencia, klebsiella, e.coli pneumonia s/p rx 2. renal failure 3. respiratory failure 4. intracranial hemorrhage 5. paraplegia 6. leucocytosis improving 7. COVID 19 test negative x 2 8. gangrene of feet bilaterally P 1. continue off antibiotics 2. will follow up cultures Subjective ROS Limited/Unobtainable: Yes Allergies: Coded Allergies: No Known Allergies (Unverified , 10/07/19) Objective Vital Signs Last 24 Hour Vital Signs Date Time Temp Pulse Resp B/P (MAP) Pulse Ox O2 Delivery O2 Flow Rate FiO2 01/31/20 10:52 68 23 30 01/31/20 08:02 68 01/31/20 08:00 30 01/31/20 08:00 96.8 70 24 151/82 (105) 100 01/31/20 07:27 72 25 30 01/31/20 04:00 67 01/31/20 04:00 30 01/31/20 04:00 Mechanical Ventilator 01/31/20 04:00 96.4 67 22 144/76 (98) 100 01/31/20 03:28 65 24 30 01/31/20 00:00 67 01/31/20 00:00 30 01/31/20 00:00 96.5 62 22 132/73 (92) 100 01/31/20 00:00 62 01/31/20 00:00 Mechanical Ventilator 01/30/20 23:18 60 24 30 01/30/20 20:00 30 01/30/20 20:00 96.4 65 24 128/69 (88) 100 01/30/20 20:00 64 01/30/20 20:00 Mechanical Ventilator 01/30/20 19:46 68 25 30 01/30/20 16:00 Mechanical Ventilator 01/30/20 16:00 30 01/30/20 16:00 97.3 62 25 122/66 (84) 100 01/30/20 16:00 62 01/30/20 15:04 62 24 30 01/30/20 12:07 Mechanical Ventilator 01/30/20 12:06 97.3 69 18 127/77 (94) 100 01/30/20 12:06 30 01/30/20 12:00 73 01/30/20 11:00 72 28 30 Height (Feet): 5 Height (Inches): 5.00 Weight (Pounds): 175 HEENT: status post trach Respiratory/Chest: lungs clear Cardiovascular: normal rate, regular rhythm, no gallop/murmur Abdomen: soft, non tender, other - GT Extremities: no edema, other - necrotic feet bilaterally Microbiology Date/Time Source Procedure Growth Status 01/30/20 17:15 Stool Clostridium difficile Toxin Assay - Final Complete Laboratory Tests Test 01/30/20 15:14 01/31/20 03:05 Activated Partial Thromboplast Time 38 SEC (23-33) H Sodium Level 145 MMOL/L (136-145) Potassium Level 3.7 MMOL/L (3.5-5.1) Chloride Level 108 MMOL/L (98-107) H Carbon Dioxide Level 21 MMOL/L (21-32) Anion Gap 16 mmol/L (5-15) H Blood Urea Nitrogen 109 mg/dL (7-18) H Creatinine 4.4 MG/DL (0.55-1.30) H Estimat Glomerular Filtration Rate 17.1 mL/min (>60) Glucose Level 205 MG/DL (74-106) H Calcium Level 8.3 MG/DL (8.5-10.1) L Current Medications Medications (Trade) Dose Ordered Sig/[place] Route PRN Reason Start Time Stop Time Status Last Admin Dose Admin Al Hydroxide/Mg Hydroxide (Mylanta) 30 ml QIDPRN PRN GT stomach upset 01/14/20 16:45 02/13/20 16:44 Artificial Tears (Akwa-Tears) 1 drop EVERY 12 HOURS BOTH EYES 01/14/20 21:00 02/13/20 20:59 01/31/20 08:18 Dextrose (Dextrose 50%) 25 ml Q30M PRN IV Hypoglycemia 01/14/20 16:45 04/13/20 16:44 01/20/20 09:08 Dextrose (Dextrose 50%) 50 ml Q30M PRN IV hypoglycemia 01/14/20 16:45 04/13/20 16:44 01/14/20 21:25 Diphenoxylate HCl/ Atropine (Lomotil) 2.5 mg Q4H PRN GT Diarrhea 01/30/20 10:00 02/21/20 11:59 Insulin Aspart (NovoLOG) No Dose Q6HR SUBQ 01/14/20 18:00 04/13/20 17:59 01/31/20 06:09 Loperamide HCl (Imodium) 2 mg Q6H PRN GT Diarrhea 01/28/20 14:18 02/27/20 14:17 01/31/20 09:44 Metoclopramide HCl (Reglan) 5 mg Q8H IVP 01/26/20 10:00 02/25/20 09:59 01/31/20 09:41 Ondansetron HCl (Zofran) 4 mg Q6H PRN IVP Nausea & Vomiting 01/26/20 09:15 02/25/20 09:14 Pantoprazole (Protonix) 40 mg DAILY IVP 01/20/20 09:00 02/19/20 08:59 01/31/20 09:41 Sodium Bicarbonate 100 ml/Dextrose/ Electrolytes 1,100 ml @ 100 mls/hr Q11H IV 01/28/20 14:00 02/27/20 13:59 01/31/20 08:18 Sodium Hypochlorite (Dakin's Half Strength) 1 applic DAILY TOPIC 01/15/20 09:00 02/14/20 08:59 01/31/20 08:19 Sodium Citrate (Bicitra) 30 ml EVERY 6 HOURS GT 01/20/20 18:00 02/19/20 17:59 01/31/20 06:06 Zinc Sulfate (Zinc Sulfate) 220 mg DAILY GT 01/15/20 09:00 04/14/20 08:59 01/31/20 09:41 Tony Apple MD Jan 31, 2020 10:59
[2020-01-31 12:00] VITALS: BP 139/74
--- NOTE | 2020-01-31 12:45 | General Progress Note ---
Assessment/Plan Assessment/Plan: sepsis anemia GIB thrombocytopenia hyponatremia ARF DM dysphagia with GT s/p EGD/PEG GTF will resume lomotil prn imodium prn ppi elevated LFTS>>> stable us reviewed fu abd CT, reviewed protonix daily on Imodium will fu Subjective ROS Limited/Unobtainable: No Allergies: Coded Allergies: No Known Allergies (Unverified , 10/07/19) Objective Last 24 Hour Vital Signs Date Time Temp Pulse Resp B/P (MAP) Pulse Ox O2 Delivery O2 Flow Rate FiO2 01/31/20 12:09 Mechanical Ventilator 01/31/20 12:00 30 01/31/20 10:52 68 23 30 01/31/20 08:02 68 01/31/20 08:00 30 01/31/20 08:00 Mechanical Ventilator 01/31/20 08:00 96.8 70 24 151/82 (105) 100 01/31/20 07:27 72 25 30 01/31/20 04:00 67 01/31/20 04:00 30 01/31/20 04:00 Mechanical Ventilator 01/31/20 04:00 96.4 67 22 144/76 (98) 100 01/31/20 03:28 65 24 30 01/31/20 00:00 67 01/31/20 00:00 30 01/31/20 00:00 96.5 62 22 132/73 (92) 100 01/31/20 00:00 62 01/31/20 00:00 Mechanical Ventilator 01/30/20 23:18 60 24 30 01/30/20 20:00 30 01/30/20 20:00 96.4 65 24 128/69 (88) 100 01/30/20 20:00 64 01/30/20 20:00 Mechanical Ventilator 01/30/20 19:46 68 25 30 01/30/20 16:00 Mechanical Ventilator 01/30/20 16:00 30 01/30/20 16:00 97.3 62 25 122/66 (84) 100 01/30/20 16:00 62 01/30/20 15:04 62 24 30 Intake and Output 01/30/20 01/31/20 19:00 07:00 Intake Total 1584 ml 1794 ml Output Total 551 ml 300 ml Balance 1033 ml 1494 ml Intake Free Water 200 ml 150 ml IV Total 700 ml 1200 ml Tube Feeding 444 ml 444 ml Other 240 ml Output Urine Total 550 ml 300 ml Stool Total 1 ml # Bowel Movements 5 2 Laboratory Tests 01/30/20 15:14: Activated Partial Thromboplast Time 38H 01/31/20 03:05: Sodium Level 145, Potassium Level 3.7, Chloride Level 108H, Carbon Dioxide Level 21, Anion Gap 16H, Blood Urea Nitrogen 109H, Creatinine 4.4H, Estimat Glomerular Filtration Rate 17.1, Glucose Level 205H, Calcium Level 8.3L Height (Feet): 5 Height (Inches): 5.00 Weight (Pounds): 175 General Appearance: no apparent distress EENT: normal ENT inspection Neck: supple Cardiovascular: normal rate Respiratory/Chest: decreased breath sounds Abdomen: soft, hypoactive bowel sounds Extremities: non-tender Toni Mckenzie MD Jan 31, 2020 12:45
--- NOTE | 2020-01-31 14:24 | Surgery Progress Note ---
Surgery Progress Note Subjective Procedure Performed right femoral central venous catheter removal Additional Comments no acute events leukocytosis exam stable no n/v/f/c Objective Last 24 Hour Vital Signs Date Time Temp Pulse Resp B/P (MAP) Pulse Ox O2 Delivery O2 Flow Rate FiO2 01/31/20 12:09 Mechanical Ventilator 01/31/20 12:00 97.2 74 24 139/74 (95) 100 01/31/20 12:00 30 01/31/20 10:52 68 23 30 01/31/20 08:02 68 01/31/20 08:00 30 01/31/20 08:00 Mechanical Ventilator 01/31/20 08:00 96.8 70 24 151/82 (105) 100 01/31/20 07:27 72 25 30 01/31/20 04:00 67 01/31/20 04:00 30 01/31/20 04:00 Mechanical Ventilator 01/31/20 04:00 96.4 67 22 144/76 (98) 100 01/31/20 03:28 65 24 30 01/31/20 00:00 67 01/31/20 00:00 30 01/31/20 00:00 96.5 62 22 132/73 (92) 100 01/31/20 00:00 62 01/31/20 00:00 Mechanical Ventilator 01/30/20 23:18 60 24 30 01/30/20 20:00 30 01/30/20 20:00 96.4 65 24 128/69 (88) 100 01/30/20 20:00 64 01/30/20 20:00 Mechanical Ventilator 01/30/20 19:46 68 25 30 01/30/20 16:00 Mechanical Ventilator 01/30/20 16:00 30 01/30/20 16:00 97.3 62 25 122/66 (84) 100 01/30/20 16:00 62 01/30/20 15:04 62 24 30 I&O Intake and Output 01/30/20 01/31/20 19:00 07:00 Intake Total 1584 ml 1794 ml Output Total 551 ml 300 ml Balance 1033 ml 1494 ml Intake Free Water 200 ml 150 ml IV Total 700 ml 1200 ml Tube Feeding 444 ml 444 ml Other 240 ml Output Urine Total 550 ml 300 ml Stool Total 1 ml # Bowel Movements 5 2 Dressing: saturated Cardiovascular: RSR Respiratory: decreased breath sounds Abdomen: soft, non-tender, present bowel sounds, other Extremities: edema, no cyanosis Laboratory Tests Test 01/30/20 15:14 01/31/20 03:05 Activated Partial Thromboplast Time 38 SEC (23-33) H Sodium Level 145 MMOL/L (136-145) Potassium Level 3.7 MMOL/L (3.5-5.1) Chloride Level 108 MMOL/L (98-107) H Carbon Dioxide Level 21 MMOL/L (21-32) Anion Gap 16 mmol/L (5-15) H Blood Urea Nitrogen 109 mg/dL (7-18) H Creatinine 4.4 MG/DL (0.55-1.30) H Estimat Glomerular Filtration Rate 17.1 mL/min (>60) Glucose Level 205 MG/DL (74-106) H Calcium Level 8.3 MG/DL (8.5-10.1) L Plan Problems: (1) Hyponatremia (2) ARF (acute renal failure) (3) Hyperkalemia (4) Pressure sore on sacrum Assessment & Plan: Pt presented on admission with Sacral Pressure injury and Necrosis Both Both R lower ext, R foot and L foot. Generalized edema noted. Both upper ext noted to have multiple serous blisters ,some of which are weeping serous exudate. Full thickness Sacral Pressure Injury with undermined Borders. Base of wound is 75% loose necrotic tissue,25% bree. Bone exposure at base of wound. Area of necrosis noted at distal aspect of wound in space between wound and anus.Edges are macerated. Wound is malodorous.(L)9.5cm x (W)9.2cm x (D)2.9cm,undermining clockwise 10-3 by 3.8cm @12 o'clock. Scattered areas of hyperpigmentation noted to R and L clefts of buttocks. Unable to determine exudate as pt is continuously oozing large amt of semi soft black stool and leaking into wound because of close proximity to his rectum. At upper, R gluteal cheek is additional Pressure Injury with small amt Biofilm at base of wound. Edges are pink and adherent to base of wound. No exudate noted.(L)3cm x (W)2.6cm. Medially to distal Tibia,and extending to R foot is necrotic and malodorous.Wound is partially opened at posterior R tibia but is dry . L foot is necrotic and malodorous. No exudate noted. Tx.Plan: Cleanse Sacral wound with Dakin's 0.25% archana.. Loosely Pack wound with Dakin's moistened Kerlix.Apply Moisture Barrier Paste periwound.Cover with Optifoam drsg.Change Daily and PRN. Cleanse R lower ext and R foot with Dakin's 0.25% Archana. Cover wounds with ABD Pads.Wrap with Kerlix Daily and prn. Cleanse L foot Wounds with Dakin's 0.25% Archana. Cover wounds with ABD Pads and wrap with Kerlix Daily and prn. soft collar placed (5) Upper GI bleed Assessment & Plan: Patient with sepsis, abnormal labs, GI bleed, pending COVID eval. Labs noted. Exam reviewed. Chest x-ray noted as below. Discussed with GI. Plan for endoscopy once COVID status evaluated. Trend hemoglobin for now transfuse PRN. G-tube is functional and okay for medications and will plan tube feeds accordingly. No acute surgical intervention as patient is actively bleeding. Proton pump inhibitor recommended and Rx as written. Will follow with recommendations thank you for let me participate in patient's care plt low anemia prognosis guarded no active GI bleeding noted Status post PEG Tolerating tube feeds but still having diarrhea Difficult with rectal tube slides right out likely from spinal injury Anasarca stable No active bleeding worsening congestion line Free currently will monitor closely There is a tracheostomy in place. Vascularity is normal. Hazy densities in the lung bases may be layering effusions. Cardiac and mediastinal silhouette are within normal limits. The bony thorax appear unremarkable. line removed will monitor for bleeding IMPRESSION: Bibasilar hazy densities perhaps layering effusions. right fem line not functional noted manipulation as suture was dislodged. line replaced 1. Two or three gastric AVMs. 2. Ulcer with a small visible vessel, status post gold probe bipolar cauterization. DAILY ESTIMATED NEEDS: Needs based on Critical Care, Wounds, TR / 61kg 25-30 kcals/kg 3406-9665 total kcals 0.8-1.25 (increase w/ renal improvement) g protein/kg 49-76 g total protein 25-30 mL/kg 4589-4462 total fluid mLs NUTRITION DIAGNOSIS: * Swallowing difficulty R/T respiratory status, dysphagia as evidenced by trach/vent dep, PEG dep. * Increased kcal/prot intake needs R/T wound healing as evidenced by admtited w/ multiple wounds including full thickness wound @ sacrum, pressure Injury with small amt Biofilm at base of wound @ uppera R gluteal cheek, necrotic wound @ medial to distal Tibia,and extending to R foot and L foot * Altered nutrition related lab R/T TR as evidenced by elev BUN (215-> 96), elev creat (5.2->4.2), low Na (124 ->148), elev K (6.7 -> wnl) CURRENT TF:Nepro @ 37ml/hr x 24 hrs ENTERAL NUTRITION RECOMMENDATIONS: Nepro @ 37ml/hr x 24 hrs to provide 888ml, 1598kcal, 72g prot, 646ml free water * Maintain current TF -> rec Nepro at this time given TR (Creat 5.2-> 4.3) w/ elev K upon adm * HOB over 30 degrees/ water flush per MD W/ CONTINUED DIARRHEA, consider trial of elemental formula of Vital AF 1.2 @ goal rate of 45ml/hr x 24 hrs to provide 1080ml, 1296kcal, 81g prot, 876lm free water: will meet 85% est kcal and 106% est prot needs. -----> W/ non renal TF, monitor lytes closely (K wnl at this time, phos level not available) ADDITIONAL RECOMMENDATIONS: * Per SNF: HT=62" WT= 135lbs (12/25/19) * Monitor renal fxn and lytes (Creat 5.3 -> 4.1) -> check phos and mag (not checked since adm) * Wound healing: Once TF well tolerated at goal, add Ajay BID * Monitor for hypoglycemia: no further episodes (now 70's) * Add probiotics to help improve gut ewelina- + diarrhea -> consider trial of elemental TF of Vital AF Study is somewhat limited due to anasarca and overlying bowel gas, midline gastrostomy bandages. Gallbladder demonstrates sludge and tiny stones. The gallbladder wall is mildly thickened. Sonographic Velázquez sign could not be assessed. Common bile duct measures 4 mm in diameter. No intrahepatic biliary ductal dilatation. The liver is enlarged. It demonstrates normal echogenicity. No focal abnormality. Small amount of ascites fluid is seen at the anterior liver surface and adjacent to the gallbladder, left upper quadrant, and in the pelvis Portal vein and hepatic veins are patent. Pancreas is obscured by bowel gas. Spleen is unremarkable. Left kidney measures 11.4 cm in length. Right kidney measures 10.9 cm length. Both kidneys demonstrate normal echogenicity. There is no hydronephrosis. No focal abnormality . Abdominal aorta is partially obscured by bowel gas, visualized portions are non-aneurysmal . There are small bilateral pleural effusions (6) Severe malnutrition Assessment & Plan: emesis tf on hold monitor residuals (7) Respiratory failure Javid Singh Jan 31, 2020 14:24
[2020-01-31 16:00] VITALS: BP 148/87
[2020-01-31] MEDS: Lactobacillus-GG tablet GT SCH (17:42)
[2020-01-31 20:00] VITALS: BP 142/81
[2020-02-01] VITALS: BP 131/70
[2020-02-01] MEDS: Sodium Citrate 30ml GT SCH ×5 (00:30→23:11)
[2020-02-01] MEDS: Metoclopramide 10mg/2ml Inj IVP SCH ×3 (02:00→17:21)
[2020-02-01 04:00] VITALS: BP 140/70
[2020-02-01 04:48] LABS: BASOPHILS % (AUTO) 1.2 % (0.0-2.0); HEMATOCRIT 27.5 % (42.0-52.0); HEMOGLOBIN 8.9 G/DL (14.2-18.0); LYMPHOCYTES % (AUTO) 9.7 % (20.0-45.0); MEAN CORPUSCULAR VOLUME 90 FL (80-99); NEUTROPHILS % (AUTO) 80.1 % (45.0-75.0); PLATELET COUNT 125 K/UL (150-450); RED BLOOD COUNT 3.05 M/UL (4.70-6.10); RED CELL DISTRIBUTION WIDTH 18.6 % (11.6-14.8); WHITE BLOOD COUNT 16.5 K/UL (4.8-10.8)
[2020-02-01 05:03] LABS: ANION GAP 14 mmol/L (5-15); BLOOD UREA NITROGEN 114 mg/dL (7-18); CALCIUM 8.3 MG/DL (8.5-10.1); CARBON DIOXIDE 25 MMOL/L (21-32); CHLORIDE 107 MMOL/L (98-107); CREATININE 4.4 MG/DL (0.55-1.30); POTASSIUM 3.8 MMOL/L (3.5-5.1); SODIUM 146 MMOL/L (136-145)
[2020-02-01] MEDS: D5W IV SCH ×2 (05:28→17:14)
[2020-02-01] MEDS: KCL IV SCH ×2 (05:28→17:14)
[2020-02-01] MEDS: SODIUM BICARBONATE IV SCH ×2 (05:28→17:14)
[2020-02-01] MEDS: Insulin NovoLOG Flexpen S/S (Mod) SUBQ SCH ×4 (05:30→23:13)
[2020-02-01 08:00] VITALS: BP 98/52
[2020-02-01] MEDS: Zinc Sulfate 220mg GT SCH (09:08)
[2020-02-01] MEDS: Lactobacillus-GG tablet GT SCH ×2 (09:08→17:21)
[2020-02-01] MEDS: Pantoprazole Inj IVP SCH (09:09)
[2020-02-01] MEDS: Dakin's 0.25% (Half Strength) 16oz TOPIC SCH (09:09)
[2020-02-01] MEDS ORDERED: NS 275ml ONE (09:32)
--- NOTE | 2020-02-01 10:35 | Pulmonology Progress Note ---
Subjective ROS Limited/Unobtainable: Yes Constitutional: Denies: fever Gastrointestinal/Abdominal: Reports: diarrhea Allergies: Coded Allergies: No Known Allergies (Unverified , 10/07/19) All Systems: reviewed and negative except above Subjective care noted on vent renal function poor wbc better off antibiotics labs noted aware of status Objective Last 24 Hour Vital Signs Date Time Temp Pulse Resp B/P (MAP) Pulse Ox O2 Delivery O2 Flow Rate FiO2 02/01/20 08:33 75 02/01/20 08:00 Mechanical Ventilator 02/01/20 08:00 30 02/01/20 08:00 96.8 73 25 98/52 (67) 100 02/01/20 07:29 65 26 30 02/01/20 04:00 71 02/01/20 04:00 30 02/01/20 04:00 Mechanical Ventilator 02/01/20 04:00 97.2 69 27 140/70 (93) 100 02/01/20 03:21 73 26 30 02/01/20 00:00 Mechanical Ventilator 02/01/20 00:00 30 02/01/20 00:00 71 02/01/20 00:00 97.5 60 27 131/70 (90) 100 01/31/20 23:14 70 26 30 01/31/20 20:00 Mechanical Ventilator 01/31/20 20:00 74 01/31/20 20:00 30 01/31/20 20:00 97.7 75 27 142/81 (101) 100 01/31/20 18:52 77 24 30 01/31/20 16:00 Mechanical Ventilator 01/31/20 16:00 67 01/31/20 16:00 30 01/31/20 16:00 97.7 81 26 148/87 (107) 100 01/31/20 15:45 76 27 30 01/31/20 12:09 Mechanical Ventilator 01/31/20 12:00 97.2 74 24 139/74 (95) 100 01/31/20 12:00 30 01/31/20 12:00 65 01/31/20 10:52 68 23 30 Intake and Output 01/31/20 02/01/20 19:00 07:00 Intake Total 2284 ml 1883 ml Output Total 300 ml Balance 1984 ml 1883 ml Intake Free Water 200 ml 150 ml IV Total 1100 ml 1400 ml Tube Feeding 444 ml 333 ml Other 540 ml Output Urine Total 300 ml # Bowel Movements 5 3 Objective WDWN trach clear breath sounds bilaterally without rhonchi or wheeze [id number] without MRG NABS nontender no HSM no CC edema poor LOC reviewed and edited Microbiology Date/Time Source Procedure Growth Status 01/30/20 17:15 Stool Clostridium difficile Toxin Assay - Final Complete Laboratory Tests 02/01/20 02:55: White Blood Count 16.5H, Red Blood Count 3.05L, Hemoglobin 8.9L, Hematocrit 27.5L, Mean Corpuscular Volume 90, Mean Corpuscular Hemoglobin 29.1, Mean Corpuscular Hemoglobin Concent 32.3, Red Cell Distribution Width 18.6H, Platelet Count 125L, Mean Platelet Volume 11.2H, Neutrophils (%) (Auto) 80.1H, Lymphocytes (%) (Auto) 9.7L, Monocytes (%) (Auto) 8.0, Eosinophils (%) (Auto) 1.0, Basophils (%) (Auto) 1.2, Sodium Level 146H, Potassium Level 3.8, Chloride Level 107, Carbon Dioxide Level 25, Anion Gap 14, Blood Urea Nitrogen 114H, Creatinine 4.4H, Estimat Glomerular Filtration Rate 17.1, Glucose Level 168H, Calcium Level 8.3L Current Medications Medications (Trade) Dose Ordered Sig/[place] Route PRN Reason Start Time Stop Time Status Last Admin Dose Admin Al Hydroxide/Mg Hydroxide (Mylanta) 30 ml QIDPRN PRN GT stomach upset 01/14/20 16:45 02/13/20 16:44 Artificial Tears (Akwa-Tears) 1 drop EVERY 12 HOURS BOTH EYES 01/14/20 21:00 02/13/20 20:59 02/01/20 09:08 Dextrose (Dextrose 50%) 25 ml Q30M PRN IV Hypoglycemia 01/14/20 16:45 04/13/20 16:44 01/20/20 09:08 Dextrose (Dextrose 50%) 50 ml Q30M PRN IV hypoglycemia 01/14/20 16:45 04/13/20 16:44 01/14/20 21:25 Diphenoxylate HCl/ Atropine (Lomotil) 2.5 mg Q4H PRN GT Diarrhea 01/30/20 10:00 02/21/20 11:59 02/01/20 09:17 Insulin Aspart (NovoLOG) No Dose Q6HR SUBQ 01/14/20 18:00 04/13/20 17:59 02/01/20 05:30 Lactobacillus Acidophilus (Culturelle) 1 tab TWICE A DAY GT 01/31/20 18:00 04/30/20 17:59 02/01/20 09:08 Loperamide HCl (Imodium) 2 mg Q6H PRN GT Diarrhea 01/28/20 14:18 02/27/20 14:17 01/31/20 17:43 Metoclopramide HCl (Reglan) 5 mg Q8H IVP 01/26/20 10:00 02/25/20 09:59 02/01/20 09:09 Ondansetron HCl (Zofran) 4 mg Q6H PRN IVP Nausea & Vomiting 01/26/20 09:15 02/25/20 09:14 Pantoprazole (Protonix) 40 mg DAILY IVP 01/20/20 09:00 02/19/20 08:59 02/01/20 09:09 Sodium Bicarbonate 100 ml/Dextrose/ Electrolytes 1,100 ml @ 100 mls/hr Q11H IV 01/28/20 14:00 02/27/20 13:59 02/01/20 05:28 Sodium Hypochlorite (Dakin's Half Strength) 1 applic DAILY TOPIC 01/15/20 09:00 02/14/20 08:59 02/01/20 09:09 Sodium Citrate (Bicitra) 30 ml EVERY 6 HOURS GT 01/20/20 18:00 02/19/20 17:59 02/01/20 05:28 Zinc Sulfate (Zinc Sulfate) 220 mg DAILY GT 01/15/20 09:00 04/14/20 08:59 02/01/20 09:08 Assessment/Plan Assessment/Plan IMPRESSION chronic respiratory failure Acute on chronic renal failure elevated K anemia GIB leukocytosis possible sepsis oral bleeding diarrhea transaminitis PLAN ID , GI and renal clearance vent as is monitor vitals not safe for dc full code/ per prognosis very poor for recovery consider dc to snf if diarrhea better controlled poor candidate for HD impression, plan, and exam edited and reviewed in detail care discussed with Lorenzo Chase MD Feb 01, 2020 10:35
[2020-02-01 12:00] VITALS: BP 137/74
--- NOTE | 2020-02-01 14:15 | Nephrology Progress Note ---
Assessment/Plan Problem List: (1) Respiratory failure (2) ARF (acute renal failure) (3) Hyponatremia (4) Hyperkalemia (5) Upper GI bleed (6) Pressure sore on sacrum (7) Diarrhea (8) Severe malnutrition Plan diarrhea, reorder iv fluids,BUN/creatinine 70/.91 11/2019, enteral hydration , reji likely from infection, severe hypoalbuminemia and anasarca with poor prognosis Na higher iv adjusted, bicitra started for acidosis, add bicarb , serum bicarb better still large fluid losses from diarrhea Subjective ROS Limited/Unobtainable: Yes Objective Objective Last 24 Hour Vital Signs Date Time Temp Pulse Resp B/P (MAP) Pulse Ox O2 Delivery O2 Flow Rate FiO2 02/01/20 12:00 30 02/01/20 12:00 96.8 66 24 137/74 (95) 100 02/01/20 12:00 Mechanical Ventilator 02/01/20 12:00 60 02/01/20 11:35 62 24 30 02/01/20 08:33 75 02/01/20 08:00 Mechanical Ventilator 02/01/20 08:00 30 02/01/20 08:00 96.8 73 25 98/52 (67) 100 02/01/20 07:29 65 26 30 02/01/20 04:00 71 02/01/20 04:00 30 02/01/20 04:00 Mechanical Ventilator 02/01/20 04:00 97.2 69 27 140/70 (93) 100 02/01/20 03:21 73 26 30 02/01/20 00:00 Mechanical Ventilator 02/01/20 00:00 30 02/01/20 00:00 71 02/01/20 00:00 97.5 60 27 131/70 (90) 100 01/31/20 23:14 70 26 30 01/31/20 20:00 Mechanical Ventilator 01/31/20 20:00 74 01/31/20 20:00 30 01/31/20 20:00 97.7 75 27 142/81 (101) 100 01/31/20 18:52 77 24 30 01/31/20 16:00 Mechanical Ventilator 01/31/20 16:00 67 01/31/20 16:00 30 01/31/20 16:00 97.7 81 26 148/87 (107) 100 01/31/20 15:45 76 27 30 Intake and Output 01/31/20 02/01/20 19:00 07:00 Intake Total 2284 ml 1883 ml Output Total 300 ml Balance 1984 ml 1883 ml Intake Free Water 200 ml 150 ml IV Total 1100 ml 1400 ml Tube Feeding 444 ml 333 ml Other 540 ml Output Urine Total 300 ml # Bowel Movements 5 3 Laboratory Tests 02/01/20 02:55: White Blood Count 16.5H, Red Blood Count 3.05L, Hemoglobin 8.9L, Hematocrit 27.5L, Mean Corpuscular Volume 90, Mean Corpuscular Hemoglobin 29.1, Mean Corpuscular Hemoglobin Concent 32.3, Red Cell Distribution Width 18.6H, Platelet Count 125L, Mean Platelet Volume 11.2H, Neutrophils (%) (Auto) 80.1H, Lymphocytes (%) (Auto) 9.7L, Monocytes (%) (Auto) 8.0, Eosinophils (%) (Auto) 1.0, Basophils (%) (Auto) 1.2, Sodium Level 146H, Potassium Level 3.8, Chloride Level 107, Carbon Dioxide Level 25, Anion Gap 14, Blood Urea Nitrogen 114H, Creatinine 4.4H, Estimat Glomerular Filtration Rate 17.1, Glucose Level 168H, Calcium Level 8.3L Height (Feet): 5 Height (Inches): 5.00 Weight (Pounds): 171 General Appearance: lethargic, other - vent Cardiovascular: regular rhythm Respiratory/Chest: rhonchi - bilaterally Abdomen: soft Extremities: moderate edema Neurologic: unresponsive Martin Yee MD Feb 01, 2020 14:15
[2020-02-01 16:00] VITALS: BP 153/88
--- NOTE | 2020-02-01 16:25 | Surgery Progress Note ---
Surgery Progress Note Subjective Procedure Performed right femoral central venous catheter removal Additional Comments no acute events labs noted exam stable Objective Last 24 Hour Vital Signs Date Time Temp Pulse Resp B/P (MAP) Pulse Ox O2 Delivery O2 Flow Rate FiO2 02/01/20 15:18 61 24 30 02/01/20 12:00 30 02/01/20 12:00 96.8 66 24 137/74 (95) 100 02/01/20 12:00 Mechanical Ventilator 02/01/20 12:00 60 02/01/20 11:35 62 24 30 02/01/20 08:33 75 02/01/20 08:00 Mechanical Ventilator 02/01/20 08:00 30 02/01/20 08:00 96.8 73 25 98/52 (67) 100 02/01/20 07:29 65 26 30 02/01/20 04:00 71 02/01/20 04:00 30 02/01/20 04:00 Mechanical Ventilator 02/01/20 04:00 97.2 69 27 140/70 (93) 100 02/01/20 03:21 73 26 30 02/01/20 00:00 Mechanical Ventilator 02/01/20 00:00 30 02/01/20 00:00 71 02/01/20 00:00 97.5 60 27 131/70 (90) 100 01/31/20 23:14 70 26 30 01/31/20 20:00 Mechanical Ventilator 01/31/20 20:00 74 01/31/20 20:00 30 01/31/20 20:00 97.7 75 27 142/81 (101) 100 01/31/20 18:52 77 24 30 I&O Intake and Output 01/31/20 02/01/20 19:00 07:00 Intake Total 2284 ml 1883 ml Output Total 300 ml Balance 1984 ml 1883 ml Intake Free Water 200 ml 150 ml IV Total 1100 ml 1400 ml Tube Feeding 444 ml 333 ml Other 540 ml Output Urine Total 300 ml # Bowel Movements 5 3 Dressing: other Wound: other Drains: other Cardiovascular: RSR Respiratory: decreased breath sounds Abdomen: soft, present bowel sounds Extremities: no cyanosis, other Laboratory Tests Test 02/01/20 02:55 White Blood Count 16.5 K/UL (4.8-10.8) H Red Blood Count 3.05 M/UL (4.70-6.10) L Hemoglobin 8.9 G/DL (14.2-18.0) L Hematocrit 27.5 % (42.0-52.0) L Mean Corpuscular Volume 90 FL (80-99) Mean Corpuscular Hemoglobin 29.1 PG (27.0-31.0) Mean Corpuscular Hemoglobin Concent 32.3 G/DL (32.0-36.0) Red Cell Distribution Width 18.6 % (11.6-14.8) H Platelet Count 125 K/UL (150-450) L Mean Platelet Volume 11.2 FL (6.5-10.1) H Neutrophils (%) (Auto) 80.1 % (45.0-75.0) H Lymphocytes (%) (Auto) 9.7 % (20.0-45.0) L Monocytes (%) (Auto) 8.0 % (1.0-10.0) Eosinophils (%) (Auto) 1.0 % (0.0-3.0) Basophils (%) (Auto) 1.2 % (0.0-2.0) Sodium Level 146 MMOL/L (136-145) H Potassium Level 3.8 MMOL/L (3.5-5.1) Chloride Level 107 MMOL/L (98-107) Carbon Dioxide Level 25 MMOL/L (21-32) Anion Gap 14 mmol/L (5-15) Blood Urea Nitrogen 114 mg/dL (7-18) H Creatinine 4.4 MG/DL (0.55-1.30) H Estimat Glomerular Filtration Rate 17.1 mL/min (>60) Glucose Level 168 MG/DL (74-106) H Calcium Level 8.3 MG/DL (8.5-10.1) L Plan Problems: (1) Hyponatremia (2) ARF (acute renal failure) (3) Hyperkalemia (4) Pressure sore on sacrum Assessment & Plan: Pt presented on admission with Sacral Pressure injury and Necrosis Both Both R lower ext, R foot and L foot. Generalized edema noted. Both upper ext noted to have multiple serous blisters ,some of which are weeping serous exudate. Full thickness Sacral Pressure Injury with undermined Borders. Base of wound is 75% loose necrotic tissue,25% bree. Bone exposure at base of wound. Area of necrosis noted at distal aspect of wound in space between wound and anus.Edges are macerated. Wound is malodorous.(L)9.5cm x (W)9.2cm x (D)2.9cm,undermining clockwise 10-3 by 3.8cm @12 o'clock. Scattered areas of hyperpigmentation noted to R and L clefts of buttocks. Unable to determine exudate as pt is continuously oozing large amt of semi soft black stool and leaking into wound because of close proximity to his rectum. At upper, R gluteal cheek is additional Pressure Injury with small amt Biofilm at base of wound. Edges are pink and adherent to base of wound. No exudate noted.(L)3cm x (W)2.6cm. Medially to distal Tibia,and extending to R foot is necrotic and malodorous.Wound is partially opened at posterior R tibia but is dry . L foot is necrotic and malodorous. No exudate noted. Tx.Plan: Cleanse Sacral wound with Dakin's 0.25% archana.. Loosely Pack wound with Dakin's moistened Kerlix.Apply Moisture Barrier Paste periwound.Cover with Optifoam drsg.Change Daily and PRN. Cleanse R lower ext and R foot with Dakin's 0.25% Archana. Cover wounds with ABD Pads.Wrap with Kerlix Daily and prn. Cleanse L foot Wounds with Dakin's 0.25% Archana. Cover wounds with ABD Pads and wrap with Kerlix Daily and prn. soft collar placed (5) Upper GI bleed Assessment & Plan: Patient with sepsis, abnormal labs, GI bleed, pending COVID eval. Labs noted. Exam reviewed. Chest x-ray noted as below. Discussed with GI. Plan for endoscopy once COVID status evaluated. Trend hemoglobin for now transfuse PRN. G-tube is functional and okay for medications and will plan tube feeds accordingly. No acute surgical intervention as patient is actively bleeding. Proton pump inhibitor recommended and Rx as written. Will follow with recommendations thank you for let me participate in patient's care plt low anemia prognosis guarded no active GI bleeding noted Status post PEG Tolerating tube feeds but still having diarrhea Difficult with rectal tube slides right out likely from spinal injury Anasarca stable No active bleeding worsening congestion line Free currently will monitor closely There is a tracheostomy in place. Vascularity is normal. Hazy densities in the lung bases may be layering effusions. Cardiac and mediastinal silhouette are within normal limits. The bony thorax appear unremarkable. line removed will monitor for bleeding IMPRESSION: Bibasilar hazy densities perhaps layering effusions. right fem line not functional noted manipulation as suture was dislodged. line replaced 1. Two or three gastric AVMs. 2. Ulcer with a small visible vessel, status post gold probe bipolar cauterization. DAILY ESTIMATED NEEDS: Needs based on Critical Care, Wounds, TR / 61kg 25-30 kcals/kg 9648-8138 total kcals 0.8-1.25 (increase w/ renal improvement) g protein/kg 49-76 g total protein 25-30 mL/kg 7632-2411 total fluid mLs NUTRITION DIAGNOSIS: * Swallowing difficulty R/T respiratory status, dysphagia as evidenced by trach/vent dep, PEG dep. * Increased kcal/prot intake needs R/T wound healing as evidenced by admtited w/ multiple wounds including full thickness wound @ sacrum, pressure Injury with small amt Biofilm at base of wound @ uppera R gluteal cheek, necrotic wound @ medial to distal Tibia,and extending to R foot and L foot * Altered nutrition related lab R/T TR as evidenced by elev BUN (215-> 96), elev creat (5.2->4.2), low Na (124 ->148), elev K (6.7 -> wnl) CURRENT TF:Nepro @ 37ml/hr x 24 hrs ENTERAL NUTRITION RECOMMENDATIONS: Nepro @ 37ml/hr x 24 hrs to provide 888ml, 1598kcal, 72g prot, 646ml free water * Maintain current TF -> rec Nepro at this time given TR (Creat 5.2-> 4.3) w/ elev K upon adm * HOB over 30 degrees/ water flush per MD W/ CONTINUED DIARRHEA, consider trial of elemental formula of Vital AF 1.2 @ goal rate of 45ml/hr x 24 hrs to provide 1080ml, 1296kcal, 81g prot, 876lm free water: will meet 85% est kcal and 106% est prot needs. -----> W/ non renal TF, monitor lytes closely (K wnl at this time, phos level not available) ADDITIONAL RECOMMENDATIONS: * Per SNF: HT=62" WT= 135lbs (12/25/19) * Monitor renal fxn and lytes (Creat 5.3 -> 4.1) -> check phos and mag (not checked since adm) * Wound healing: Once TF well tolerated at goal, add Ajay BID * Monitor for hypoglycemia: no further episodes (now 70's) * Add probiotics to help improve gut ewelina- + diarrhea -> consider trial of elemental TF of Vital AF Study is somewhat limited due to anasarca and overlying bowel gas, midline gastrostomy bandages. Gallbladder demonstrates sludge and tiny stones. The gallbladder wall is mildly thickened. Sonographic Velázquez sign could not be assessed. Common bile duct measures 4 mm in diameter. No intrahepatic biliary ductal dilatation. The liver is enlarged. It demonstrates normal echogenicity. No focal abnormality. Small amount of ascites fluid is seen at the anterior liver surface and adjacent to the gallbladder, left upper quadrant, and in the pelvis Portal vein and hepatic veins are patent. Pancreas is obscured by bowel gas. Spleen is unremarkable. Left kidney measures 11.4 cm in length. Right kidney measures 10.9 cm length. Both kidneys demonstrate normal echogenicity. There is no hydronephrosis. No focal abnormality . Abdominal aorta is partially obscured by bowel gas, visualized portions are non-aneurysmal . There are small bilateral pleural effusions (6) Severe malnutrition Assessment & Plan: emesis tf on hold monitor residuals (7) Respiratory failure Javid Singh Feb 01, 2020 16:25
[2020-02-01 20:00] VITALS: BP 146/80
[2020-02-02] VITALS: BP 138/92
[2020-02-02] MEDS: Metoclopramide 10mg/2ml Inj IVP SCH ×3 (02:09→17:29)
[2020-02-02] MEDS: SODIUM BICARBONATE IV SCH ×2 (03:55→14:55)
[2020-02-02] MEDS: D5W IV SCH ×2 (03:55→14:55)
[2020-02-02] MEDS: KCL IV SCH ×2 (03:55→14:55)
[2020-02-02 04:00] VITALS: BP 153/93
[2020-02-02] MEDS: Insulin NovoLOG Flexpen S/S (Mod) SUBQ SCH ×4 (05:24→23:39)
[2020-02-02] MEDS: Sodium Citrate 30ml GT SCH ×4 (05:24→23:38)
--- NOTE | 2020-02-02 06:12 | Hematology/Onc Progress Note ---
Assessment/Plan Assessment/Plan Assessment and recs # Thrombocytopenia - potential causes multifactorial, evaluate liver and viral etiologies to begin, also could be related to underlying medications patient has received. May be due to DIC in this case, or consumption --> Hep panel and HIV negative --> US abd to evaluate for cirrhosis and hsm --> positive for mild hepatomegaly --> Peripheral smear ordered to evaluate for blasts /schistocytes --> abx and other meds have been reviewed --> ok for ppx if plt >50k w/ either heparin or lovenox --> Transfuse if Plt < 20k and fever, or if Plt < 10k without fever --> plt trend 41-->32-->21k-->20 -->61k-->45-->62-->51->38->55->50->70-->90--> 112 -->118 -->106-->109-->109-->114-->125 # Anemia due to Upper GI bleed, hematuria --> no evidence of hemolysis is noted --> smear noted --> anemia panel reviewed, ferritin high --> po iron ok --> for hematuria as per urology --> Pending endoscopy when clear from covid19 --> hgb trend: 9.1 ->8.3->6.9-->8.1-->8.3-->7.6 -->6.6-->10.5-->9.8-->9.3->8.5-- >8.6 -->8.5-->8.3-->8 -->7.7-->8.9 --> prbc: 2 units 01/02, 6 # Leukocytosis due to e/coli/kleb pna --> wbc trend 23-->32-->17.1-->13.9-->10-->15-->17.7-->21.8-->17-->20.2-->23--> 36.4-->30-->16 --> as per id recs --> on connor/wilma--> vanc-->zosyn-->OFF --> c diff negative # Hyperkalemia --> kayxelate as needed --> k trend # ARF (acute renal failure) --> per renal # Hyponatremia # Gram negative pneumonia # Ventilator dependent respiratory failure # intracranial hemorrhage # paraplegia # Dysphagia with gtube # Dvt ppx scds The timing of this note does not necessarily reflect the time of the patient was seen. Greatly appreciate consultation. Subjective Genitourinary: Denies: no symptoms, burning, discharge, frequency, flank pain, hematuria, incontinence, pain, urgency, other Neurologic/Psychiatric: Denies: no symptoms, anxiety, depressed, emotional problems, headache, numbness, paresthesia, pre-existing deficit, seizure, tingling, tremors, weakness, other Endocrine: Denies: no symptoms, excessive sweating, flushing, intolerance to cold, intolerance to heat, increased hunger, increased thirst, increased urine, unexplained weight gain, unexplained weight loss, other Hematologic/Lymphatic: Denies: no symptoms, anemia, easy bleeding, easy bruising, adenopathy, other Allergies: Coded Allergies: No Known Allergies (Unverified , 10/07/19) All Systems: reviewed and negative except above Subjective 01/03obtunded, s/p rbc x2, hgb improved to 9.1, us abd reviewed, hematuria+ 01/04 plt are better, got 1 unit pf platets today as well, plt now 61k, less gi bleed overnight, some black tarry stool noted 01/05 nv, labs noted, hgb 8.5, no hemolysis noted, no bleeding, plt 83, egd tomorrow 01/06 egd for this am, results are pending, labs noted 01/09 no major changes, labs noted, no bleeding wbc higher, on abx 01/10 sdu, wbc improving, inr 1.4, vent, h/h stable, no distress 01/11 hgb 7.6, no tx required, repeat cbc for tomorrow, on vent 01/12 remains on vent, hgb 6.6, getting 2 iunits prbc today, will need picc 01/13 trach to vent, nepro feeds ongoing, hgb improved 10.5 01/14 s/p egd w/ peg, rectal tube, no acute events, h/h stable 01/15 remains obtunded, minimal blood in stool, will hold off on platelet administration 01/16 labs noted, nob leeding, meds reviewed, plt higher 01/18 sdu, nonverbal, no acute events, vent, vanc 01/19 remains on vent, with po vanc, wbc higher as is plt 01/20 sdu, obtunded, blisters to groin/scrotum area, labs reviewed 01/21 ctap and us abd reviewed, mild hepatomegaly, hgb 8.5, inr 1.8 01/22 remains on zosyn at this time, no bleeding, hgb .3, wbc 17 01/23 wbc trending up, contact isolation, no acute events 01/25 remains obtunded, dw Rn, wbc 23, hgb 7.7, holding off transf 01/26 labs reviewed, no bleeding, hgb 7.7, yesterday, wit gtube feeds 01/27 sdu, no overnight events, wbc 22.4, iv abx, afebrile 01/28 obtunded, no new changes, labs reviewed, zosyn 01/29 labs reviewed, no bleeding, meds noted, wbc 30k 01/30 no acute events, nonverbal, c diff negative, vent 02/01 remains on vent, as well as gtube, remains nonverbal, abx off Objective Objective Current Medications Medications (Trade) Dose Ordered Sig/[place] Route PRN Reason Start Time Stop Time Status Last Admin Dose Admin Al Hydroxide/Mg Hydroxide (Mylanta) 30 ml QIDPRN PRN GT stomach upset 01/14/20 16:45 02/13/20 16:44 Artificial Tears (Akwa-Tears) 1 drop EVERY 12 HOURS BOTH EYES 01/14/20 21:00 02/13/20 20:59 02/01/20 20:17 Dextrose (Dextrose 50%) 25 ml Q30M PRN IV Hypoglycemia 01/14/20 16:45 04/13/20 16:44 01/20/20 09:08 Dextrose (Dextrose 50%) 50 ml Q30M PRN IV hypoglycemia 01/14/20 16:45 04/13/20 16:44 01/14/20 21:25 Diphenoxylate HCl/ Atropine (Lomotil) 2.5 mg Q4H PRN GT Diarrhea 01/30/20 10:00 02/21/20 11:59 02/01/20 09:17 Insulin Aspart (NovoLOG) No Dose Q6HR SUBQ 01/14/20 18:00 04/13/20 17:59 02/01/20 23:13 Lactobacillus Acidophilus (Culturelle) 1 tab TWICE A DAY GT 01/31/20 18:00 04/30/20 17:59 02/01/20 17:21 Loperamide HCl (Imodium) 2 mg Q6H PRN GT Diarrhea 01/28/20 14:18 02/27/20 14:17 02/02/20 05:58 Metoclopramide HCl (Reglan) 5 mg Q8H IVP 01/26/20 10:00 02/25/20 09:59 02/02/20 02:09 Ondansetron HCl (Zofran) 4 mg Q6H PRN IVP Nausea & Vomiting 01/26/20 09:15 02/25/20 09:14 Pantoprazole (Protonix) 40 mg DAILY IVP 01/20/20 09:00 02/19/20 08:59 02/01/20 09:09 Sodium Bicarbonate 100 ml/Dextrose/ Electrolytes 1,100 ml @ 100 mls/hr Q11H IV 01/28/20 14:00 02/27/20 13:59 02/02/20 03:55 Sodium Hypochlorite (Dakin's Half Strength) 1 applic DAILY TOPIC 01/15/20 09:00 02/14/20 08:59 02/01/20 09:09 Sodium Citrate (Bicitra) 30 ml EVERY 6 HOURS GT 01/20/20 18:00 02/19/20 17:59 02/02/20 05:24 Zinc Sulfate (Zinc Sulfate) 220 mg DAILY GT 01/15/20 09:00 04/14/20 08:59 02/01/20 09:08 Last 24 Hour Vital Signs Date Time Temp Pulse Resp B/P (MAP) Pulse Ox O2 Delivery O2 Flow Rate FiO2 02/02/20 04:00 30 02/02/20 04:00 98.7 87 24 153/93 (113) 100 02/02/20 04:00 Mechanical Ventilator 02/02/20 03:49 57 02/02/20 03:17 74 24 30 02/02/20 00:00 Mechanical Ventilator 02/02/20 00:00 96.6 61 24 138/92 (107) 100 20 00:00 58 02/01/20 23:11 71 24 30 6 20:00 97.4 63 24 146/80 (102) 100 20 20:00 Mechanical Ventilator 02/01/20 20:00 65 6 20:00 30 02/01/20 19:17 68 24 30 02/01/20 16:37 58 02/01/20 16:00 30 02/01/20 16:00 96.4 66 24 153/88 (109) 100 02/01/20 16:00 Mechanical Ventilator 02/01/20 15:18 61 24 30 02/01/20 12:00 30 02/01/20 12:00 96.8 66 24 137/74 (95) 100 02/01/20 12:00 Mechanical Ventilator 02/01/20 12:00 60 02/01/20 11:35 62 24 30 02/01/20 08:33 75 02/01/20 08:00 Mechanical Ventilator 02/01/20 08:00 30 02/01/20 08:00 96.8 73 25 98/52 (67) 100 02/01/20 07:29 65 26 30 02/01/20 04:00 71 02/01/20 04:00 30 02/01/20 04:00 Mechanical Ventilator 02/01/20 04:00 97.2 69 27 140/70 (93) 100 02/01/20 03:21 73 26 30 02/01/20 00:00 Mechanical Ventilator 02/01/20 00:00 30 02/01/20 00:00 71 02/01/20 00:00 97.5 60 27 131/70 (90) 100 01/31/20 23:14 70 26 30 01/31/20 20:00 Mechanical Ventilator 01/31/20 20:00 74 01/31/20 20:00 30 01/31/20 20:00 97.7 75 27 142/81 (101) 100 20 18:52 77 24 30 01/31/20 16:00 Mechanical Ventilator 01/31/20 16:00 67 01/31/20 16:00 30 01/31/20 16:00 97.7 81 26 148/87 (107) 100 01/31/20 15:45 76 27 30 01/31/20 12:09 Mechanical Ventilator 01/31/20 12:00 97.2 74 24 139/74 (95) 100 01/31/20 12:00 30 01/31/20 12:00 65 01/31/20 10:52 68 23 30 01/31/20 08:02 68 01/31/20 08:00 30 01/31/20 08:00 Mechanical Ventilator 01/31/20 08:00 96.8 70 24 151/82 (105) 100 01/31/20 07:27 72 25 30 Intake and Output 02/01/20 02/02/20 19:00 07:00 Intake Total 2147 ml 1096 ml Output Total 400 ml Balance 1747 ml 1096 ml Intake Free Water 200 ml IV Total 1000 ml 800 ml Tube Feeding 407 ml 296 ml Other 540 ml Output Urine Total 400 ml # Bowel Movements 5 3 Labs Test 01/30/20 15:14 01/31/20 03:05 02/01/20 02:55 Activated Partial Thromboplast Time 38 SEC (23-33) Sodium Level 145 MMOL/L (136-145) 146 MMOL/L (136-145) Potassium Level 3.7 MMOL/L (3.5-5.1) 3.8 MMOL/L (3.5-5.1) Chloride Level 108 MMOL/L (98-107) 107 MMOL/L (98-107) Carbon Dioxide Level 21 MMOL/L (21-32) 25 MMOL/L (21-32) Anion Gap 16 mmol/L (5-15) 14 mmol/L (5-15) Blood Urea Nitrogen 109 mg/dL (7-18) 114 mg/dL (7-18) Creatinine 4.4 MG/DL (0.55-1.30) 4.4 MG/DL (0.55-1.30) Estimat Glomerular Filtration Rate 17.1 mL/min (>60) 17.1 mL/min (>60) Glucose Level 205 MG/DL (74-106) 168 MG/DL (74-106) Calcium Level 8.3 MG/DL (8.5-10.1) 8.3 MG/DL (8.5-10.1) White Blood Count 16.5 K/UL (4.8-10.8) Red Blood Count 3.05 M/UL (4.70-6.10) Hemoglobin 8.9 G/DL (14.2-18.0) Hematocrit 27.5 % (42.0-52.0) Mean Corpuscular Volume 90 FL (80-99) Mean Corpuscular Hemoglobin 29.1 PG (27.0-31.0) Mean Corpuscular Hemoglobin Concent 32.3 G/DL (32.0-36.0) Red Cell Distribution Width 18.6 % (11.6-14.8) Platelet Count 125 K/UL (150-450) Mean Platelet Volume 11.2 FL (6.5-10.1) Neutrophils (%) (Auto) 80.1 % (45.0-75.0) Lymphocytes (%) (Auto) 9.7 % (20.0-45.0) Monocytes (%) (Auto) 8.0 % (1.0-10.0) Eosinophils (%) (Auto) 1.0 % (0.0-3.0) Basophils (%) (Auto) 1.2 % (0.0-2.0) Height (Feet): 5 Height (Inches): 5.00 Weight (Pounds): 171 Objective Physical Exam: Vitals: reviewed General: NAD ++obtunded HEENT: nc, at, mouth guard+ Neck: supple++trach Chest: clear breath sounds bilaterally Cardiovascular: RRR, no s3, s4 Abdomen/GI: soft, nontender, nd ++gtube, rectal tube+ Extremities: no cce, normal range of motion, ++ Spasticity in the left upper extremity. Flaccid on the right, scrotal blisters++ Neuro: nonfocal : skinny+ Wilmer Turner MD Feb 02, 2020 06:12
[2020-02-02 08:00] VITALS: BP 156/87
--- NOTE | 2020-02-02 08:57 | Pulmonology Progress Note ---
Subjective ROS Limited/Unobtainable: Yes Constitutional: Denies: fever Gastrointestinal/Abdominal: Reports: diarrhea Allergies: Coded Allergies: No Known Allergies (Unverified , 10/07/19) All Systems: reviewed and negative except above Subjective care noted on vent renal function poor no labs today aware of status Objective Last 24 Hour Vital Signs Date Time Temp Pulse Resp B/P (MAP) Pulse Ox O2 Delivery O2 Flow Rate FiO2 02/02/20 08:00 96.3 67 24 156/87 (110) 100 02/02/20 07:10 61 24 30 02/02/20 04:00 30 02/02/20 04:00 98.7 87 24 153/93 (113) 100 02/02/20 04:00 Mechanical Ventilator 02/02/20 03:49 57 02/02/20 03:17 74 24 30 02/02/20 00:00 Mechanical Ventilator 02/02/20 00:00 96.6 61 24 138/92 (107) 100 02/02/20 00:00 58 02/01/20 23:11 71 24 30 02/01/20 20:00 97.4 63 24 146/80 (102) 100 02/01/20 20:00 Mechanical Ventilator 02/01/20 20:00 65 02/01/20 20:00 30 02/01/20 19:17 68 24 30 02/01/20 16:37 58 02/01/20 16:00 30 02/01/20 16:00 96.4 66 24 153/88 (109) 100 02/01/20 16:00 Mechanical Ventilator 02/01/20 15:18 61 24 30 02/01/20 12:00 30 02/01/20 12:00 96.8 66 24 137/74 (95) 100 02/01/20 12:00 Mechanical Ventilator 02/01/20 12:00 60 02/01/20 11:35 62 24 30 Intake and Output 02/01/20 02/02/20 19:00 07:00 Intake Total 2147 ml 1634 ml Output Total 400 ml 450 ml Balance 1747 ml 1184 ml Intake Free Water 200 ml IV Total 1000 ml 1190 ml Tube Feeding 407 ml 444 ml Other 540 ml Output Urine Total 400 ml 450 ml # Bowel Movements 5 5 Objective WDWN trach clear breath sounds bilaterally without rhonchi or wheeze [id number] without MRG NABS nontender no HSM no CC edema poor LOC reviewed and edited Microbiology Date/Time Source Procedure Growth Status 01/30/20 17:15 Stool Clostridium difficile Toxin Assay - Final Complete Current Medications Medications (Trade) Dose Ordered Sig/[place] Route PRN Reason Start Time Stop Time Status Last Admin Dose Admin Al Hydroxide/Mg Hydroxide (Mylanta) 30 ml QIDPRN PRN GT stomach upset 01/14/20 16:45 02/13/20 16:44 Artificial Tears (Akwa-Tears) 1 drop EVERY 12 HOURS BOTH EYES 01/14/20 21:00 02/13/20 20:59 02/01/20 20:17 Dextrose (Dextrose 50%) 25 ml Q30M PRN IV Hypoglycemia 01/14/20 16:45 04/13/20 16:44 01/20/20 09:08 Dextrose (Dextrose 50%) 50 ml Q30M PRN IV hypoglycemia 01/14/20 16:45 04/13/20 16:44 01/14/20 21:25 Diphenoxylate HCl/ Atropine (Lomotil) 2.5 mg Q4H PRN GT Diarrhea 01/30/20 10:00 02/21/20 11:59 02/01/20 09:17 Insulin Aspart (NovoLOG) No Dose Q6HR SUBQ 01/14/20 18:00 04/13/20 17:59 02/01/20 23:13 Lactobacillus Acidophilus (Culturelle) 1 tab TWICE A DAY GT 01/31/20 18:00 04/30/20 17:59 02/01/20 17:21 Loperamide HCl (Imodium) 2 mg Q6H PRN GT Diarrhea 01/28/20 14:18 02/27/20 14:17 02/02/20 05:58 Metoclopramide HCl (Reglan) 5 mg Q8H IVP 01/26/20 10:00 02/25/20 09:59 02/02/20 02:09 Ondansetron HCl (Zofran) 4 mg Q6H PRN IVP Nausea & Vomiting 01/26/20 09:15 02/25/20 09:14 Pantoprazole (Protonix) 40 mg DAILY IVP 01/20/20 09:00 02/19/20 08:59 02/01/20 09:09 Sodium Bicarbonate 100 ml/Dextrose/ Electrolytes 1,100 ml @ 100 mls/hr Q11H IV 01/28/20 14:00 02/27/20 13:59 02/02/20 03:55 Sodium Hypochlorite (Dakin's Half Strength) 1 applic DAILY TOPIC 01/15/20 09:00 02/14/20 08:59 02/01/20 09:09 Sodium Citrate (Bicitra) 30 ml EVERY 6 HOURS GT 01/20/20 18:00 02/19/20 17:59 02/02/20 05:24 Zinc Sulfate (Zinc Sulfate) 220 mg DAILY GT 01/15/20 09:00 04/14/20 08:59 02/01/20 09:08 Assessment/Plan Assessment/Plan IMPRESSION chronic respiratory failure Acute on chronic renal failure elevated K anemia GIB leukocytosis possible sepsis oral bleeding diarrhea transaminitis PLAN ID , GI and renal clearance vent as is monitor vitals not safe for dc full code/ per prognosis very poor for recovery consider dc to snf if diarrhea better controlled and labs remain stable off antibiotics poor candidate for HD impression, plan, and exam edited and reviewed in detail care discussed with Lorenzo Chase MD Feb 02, 2020 08:57
[2020-02-02] MEDS: Pantoprazole Inj IVP SCH (08:59)
[2020-02-02] MEDS: Zinc Sulfate 220mg GT SCH (08:59)
[2020-02-02] MEDS: Lactobacillus-GG tablet GT SCH ×2 (08:59→17:29)
[2020-02-02] MEDS: Dakin's 0.25% (Half Strength) 16oz TOPIC SCH (09:00)
[2020-02-02 12:00] VITALS: BP 148/85
--- NOTE | 2020-02-02 12:53 | Infectious Diseases Prog Note ---
Assessment/Plan Assessment/Plan A 1. E. coli, Providencia & Pseudomonas pneumonia treated 2. Acute renal failure, CKD 3. Ventilator dependent respiratory failure 4. intracranial hemorrhage 5. paraplegia 6. leucocytosis 7. GI bleeding 8. Anemia 9. COVID19 test X 2: negative 10- Gangrene of feet 11. Thrombocytopenia 12. Hepatomegaly 13. sacral pressure ulcer 14. Cholelithiasis P 1. Observe off antibiotic 2. Poor prognosis Subjective ROS Limited/Unobtainable: Yes Constitutional: Denies: fever Allergies: Coded Allergies: No Known Allergies (Unverified , 10/07/19) Objective Vital Signs Last 24 Hour Vital Signs Date Time Temp Pulse Resp B/P (MAP) Pulse Ox O2 Delivery O2 Flow Rate FiO2 02/02/20 11:10 64 24 30 02/02/20 08:00 64 02/02/20 08:00 96.3 67 24 156/87 (110) 100 02/02/20 08:00 30 02/02/20 08:00 Mechanical Ventilator 02/02/20 07:10 61 24 30 02/02/20 04:00 30 02/02/20 04:00 98.7 87 24 153/93 (113) 100 02/02/20 04:00 Mechanical Ventilator 02/02/20 03:49 57 02/02/20 03:17 74 24 30 02/02/20 00:00 Mechanical Ventilator 02/02/20 00:00 96.6 61 24 138/92 (107) 100 02/02/20 00:00 58 02/01/20 23:11 71 24 30 02/01/20 20:00 97.4 63 24 146/80 (102) 100 02/01/20 20:00 Mechanical Ventilator 02/01/20 20:00 65 02/01/20 20:00 30 02/01/20 19:17 68 24 30 02/01/20 16:37 58 02/01/20 16:00 30 02/01/20 16:00 96.4 66 24 153/88 (109) 100 02/01/20 16:00 Mechanical Ventilator 02/01/20 15:18 61 24 30 Height (Feet): 5 Height (Inches): 5.00 Weight (Pounds): 201 HEENT: status post trach Respiratory/Chest: lungs clear, other - on ventilator Cardiovascular: normal rate Abdomen: distended, other - GT Extremities: other - generalized edema Skin: other - feet gangrene Neurologic/Psychiatric: unresponsiveness Microbiology Date/Time Source Procedure Growth Status 01/30/20 17:15 Stool Clostridium difficile Toxin Assay - Final Complete Current Medications Medications (Trade) Dose Ordered Sig/[place] Route PRN Reason Start Time Stop Time Status Last Admin Dose Admin Al Hydroxide/Mg Hydroxide (Mylanta) 30 ml QIDPRN PRN GT stomach upset 01/14/20 16:45 02/13/20 16:44 Artificial Tears (Akwa-Tears) 1 drop EVERY 12 HOURS BOTH EYES 01/14/20 21:00 02/13/20 20:59 02/02/20 08:59 Dextrose (Dextrose 50%) 25 ml Q30M PRN IV Hypoglycemia 01/14/20 16:45 04/13/20 16:44 01/20/20 09:08 Dextrose (Dextrose 50%) 50 ml Q30M PRN IV hypoglycemia 01/14/20 16:45 04/13/20 16:44 01/14/20 21:25 Diphenoxylate HCl/ Atropine (Lomotil) 2.5 mg Q4H PRN GT Diarrhea 01/30/20 10:00 02/21/20 11:59 02/01/20 09:17 Insulin Aspart (NovoLOG) No Dose Q6HR SUBQ 01/14/20 18:00 04/13/20 17:59 02/02/20 11:46 Lactobacillus Acidophilus (Culturelle) 1 tab TWICE A DAY GT 01/31/20 18:00 04/30/20 17:59 02/02/20 08:59 Loperamide HCl (Imodium) 2 mg Q6H PRN GT Diarrhea 01/28/20 14:18 02/27/20 14:17 02/02/20 05:58 Metoclopramide HCl (Reglan) 5 mg Q8H IVP 01/26/20 10:00 02/25/20 09:59 02/02/20 10:15 Ondansetron HCl (Zofran) 4 mg Q6H PRN IVP Nausea & Vomiting 01/26/20 09:15 02/25/20 09:14 Pantoprazole (Protonix) 40 mg DAILY IVP 01/20/20 09:00 02/19/20 08:59 02/02/20 08:59 Sodium Bicarbonate 100 ml/Dextrose/ Electrolytes 1,100 ml @ 100 mls/hr Q11H IV 01/28/20 14:00 02/27/20 13:59 02/02/20 03:55 Sodium Hypochlorite (Dakin's Half Strength) 1 applic DAILY TOPIC 01/15/20 09:00 02/14/20 08:59 02/02/20 09:00 Sodium Citrate (Bicitra) 30 ml EVERY 6 HOURS GT 01/20/20 18:00 02/19/20 17:59 02/02/20 11:45 Zinc Sulfate (Zinc Sulfate) 220 mg DAILY GT 01/15/20 09:00 04/14/20 08:59 02/02/20 08:59 Anastacio Bustillo MD Feb 02, 2020 12:53
--- NOTE | 2020-02-02 14:58 | Surgery Progress Note ---
Surgery Progress Note Subjective Procedure Performed right femoral central venous catheter removal Additional Comments ill appearing labs noted wbc trending down renal worse Objective Last 24 Hour Vital Signs Date Time Temp Pulse Resp B/P (MAP) Pulse Ox O2 Delivery O2 Flow Rate FiO2 02/02/20 12:00 30 02/02/20 12:00 96.6 65 24 148/85 (106) 100 02/02/20 12:00 Mechanical Ventilator 02/02/20 12:00 65 02/02/20 11:10 64 24 30 02/02/20 08:00 64 02/02/20 08:00 96.3 67 24 156/87 (110) 100 02/02/20 08:00 30 02/02/20 08:00 Mechanical Ventilator 02/02/20 07:10 61 24 30 02/02/20 04:00 30 02/02/20 04:00 98.7 87 24 153/93 (113) 100 02/02/20 04:00 Mechanical Ventilator 02/02/20 03:49 57 02/02/20 03:17 74 24 30 02/02/20 00:00 Mechanical Ventilator 02/02/20 00:00 96.6 61 24 138/92 (107) 100 02/02/20 00:00 58 02/01/20 23:11 71 24 30 02/01/20 20:00 97.4 63 24 146/80 (102) 100 02/01/20 20:00 Mechanical Ventilator 02/01/20 20:00 65 02/01/20 20:00 30 02/01/20 19:17 68 24 30 02/01/20 16:37 58 02/01/20 16:00 30 02/01/20 16:00 96.4 66 24 153/88 (109) 100 02/01/20 16:00 Mechanical Ventilator 02/01/20 15:18 61 24 30 I&O Intake and Output 02/01/20 02/02/20 19:00 07:00 Intake Total 2147 ml 1634 ml Output Total 400 ml 450 ml Balance 1747 ml 1184 ml Intake Free Water 200 ml IV Total 1000 ml 1190 ml Tube Feeding 407 ml 444 ml Other 540 ml Output Urine Total 400 ml 450 ml # Bowel Movements 5 5 Dressing: other Wound: other Drains: other Cardiovascular: RSR Respiratory: decreased breath sounds Abdomen: soft, non-tender, present bowel sounds Extremities: edema, no tenderness, no cyanosis, other Plan Problems: (1) Hyponatremia (2) ARF (acute renal failure) (3) Hyperkalemia (4) Pressure sore on sacrum Assessment & Plan: Pt presented on admission with Sacral Pressure injury and Necrosis Both Both R lower ext, R foot and L foot. Generalized edema noted. Both upper ext noted to have multiple serous blisters ,some of which are weeping serous exudate. Full thickness Sacral Pressure Injury with undermined Borders. Base of wound is 75% loose necrotic tissue,25% bree. Bone exposure at base of wound. Area of necrosis noted at distal aspect of wound in space between wound and anus.Edges are macerated. Wound is malodorous.(L)9.5cm x (W)9.2cm x (D)2.9cm,undermining clockwise 10-3 by 3.8cm @12 o'clock. Scattered areas of hyperpigmentation noted to R and L clefts of buttocks. Unable to determine exudate as pt is continuously oozing large amt of semi soft black stool and leaking into wound because of close proximity to his rectum. At upper, R gluteal cheek is additional Pressure Injury with small amt Biofilm at base of wound. Edges are pink and adherent to base of wound. No exudate noted.(L)3cm x (W)2.6cm. Medially to distal Tibia,and extending to R foot is necrotic and malodorous.Wound is partially opened at posterior R tibia but is dry . L foot is necrotic and malodorous. No exudate noted. Tx.Plan: Cleanse Sacral wound with Dakin's 0.25% archana.. Loosely Pack wound with Dakin's moistened Kerlix.Apply Moisture Barrier Paste periwound.Cover with Optifoam drsg.Change Daily and PRN. Cleanse R lower ext and R foot with Dakin's 0.25% Archana. Cover wounds with ABD Pads.Wrap with Kerlix Daily and prn. Cleanse L foot Wounds with Dakin's 0.25% Archana. Cover wounds with ABD Pads and wrap with Kerlix Daily and prn. soft collar placed (5) Upper GI bleed Assessment & Plan: Patient with sepsis, abnormal labs, GI bleed, pending COVID eval. Labs noted. Exam reviewed. Chest x-ray noted as below. Discussed with GI. Plan for endoscopy once COVID status evaluated. Trend hemoglobin for now transfuse PRN. G-tube is functional and okay for medications and will plan tube feeds accordingly. No acute surgical intervention as patient is actively bleeding. Proton pump inhibitor recommended and Rx as written. Will follow with recommendations thank you for let me participate in patient's care plt low anemia prognosis guarded no active GI bleeding noted Status post PEG Tolerating tube feeds but still having diarrhea Difficult with rectal tube slides right out likely from spinal injury Anasarca stable No active bleeding worsening congestion line Free currently will monitor closely There is a tracheostomy in place. Vascularity is normal. Hazy densities in the lung bases may be layering effusions. Cardiac and mediastinal silhouette are within normal limits. The bony thorax appear unremarkable. line removed will monitor for bleeding IMPRESSION: Bibasilar hazy densities perhaps layering effusions. right fem line not functional noted manipulation as suture was dislodged. line replaced 1. Two or three gastric AVMs. 2. Ulcer with a small visible vessel, status post gold probe bipolar cauterization. DAILY ESTIMATED NEEDS: Needs based on Critical Care, Wounds, TR / 61kg 25-30 kcals/kg 8959-4983 total kcals 0.8-1.25 (increase w/ renal improvement) g protein/kg 49-76 g total protein 25-30 mL/kg 5173-5781 total fluid mLs NUTRITION DIAGNOSIS: * Swallowing difficulty R/T respiratory status, dysphagia as evidenced by trach/vent dep, PEG dep. * Increased kcal/prot intake needs R/T wound healing as evidenced by admtited w/ multiple wounds including full thickness wound @ sacrum, pressure Injury with small amt Biofilm at base of wound @ uppera R gluteal cheek, necrotic wound @ medial to distal Tibia,and extending to R foot and L foot * Altered nutrition related lab R/T TR as evidenced by elev BUN (215-> 96), elev creat (5.2->4.2), low Na (124 ->148), elev K (6.7 -> wnl) CURRENT TF:Nepro @ 37ml/hr x 24 hrs ENTERAL NUTRITION RECOMMENDATIONS: Nepro @ 37ml/hr x 24 hrs to provide 888ml, 1598kcal, 72g prot, 646ml free water * Maintain current TF -> rec Nepro at this time given TR (Creat 5.2-> 4.3) w/ elev K upon adm * HOB over 30 degrees/ water flush per MD W/ CONTINUED DIARRHEA, consider trial of elemental formula of Vital AF 1.2 @ goal rate of 45ml/hr x 24 hrs to provide 1080ml, 1296kcal, 81g prot, 876lm free water: will meet 85% est kcal and 106% est prot needs. -----> W/ non renal TF, monitor lytes closely (K wnl at this time, phos level not available) ADDITIONAL RECOMMENDATIONS: * Per SNF: HT=62" WT= 135lbs (12/25/19) * Monitor renal fxn and lytes (Creat 5.3 -> 4.1) -> check phos and mag (not checked since adm) * Wound healing: Once TF well tolerated at goal, add Ajay BID * Monitor for hypoglycemia: no further episodes (now 70's) * Add probiotics to help improve gut ewelina- + diarrhea -> consider trial of elemental TF of Vital AF Study is somewhat limited due to anasarca and overlying bowel gas, midline gastrostomy bandages. Gallbladder demonstrates sludge and tiny stones. The gallbladder wall is mildly thickened. Sonographic Velázquez sign could not be assessed. Common bile duct measures 4 mm in diameter. No intrahepatic biliary ductal dilatation. The liver is enlarged. It demonstrates normal echogenicity. No focal abnormality. Small amount of ascites fluid is seen at the anterior liver surface and adjacent to the gallbladder, left upper quadrant, and in the pelvis Portal vein and hepatic veins are patent. Pancreas is obscured by bowel gas. Spleen is unremarkable. Left kidney measures 11.4 cm in length. Right kidney measures 10.9 cm length. Both kidneys demonstrate normal echogenicity. There is no hydronephrosis. No focal abnormality . Abdominal aorta is partially obscured by bowel gas, visualized portions are non-aneurysmal . There are small bilateral pleural effusions (6) Severe malnutrition Assessment & Plan: emesis tf on hold monitor residuals (7) Respiratory failure Javid Singh Feb 02, 2020 14:58
[2020-02-02 16:00] VITALS: BP 152/88
--- NOTE | 2020-02-02 19:39 | Nephrology Progress Note ---
Assessment/Plan Problem List: (1) Respiratory failure (2) ARF (acute renal failure) (3) Hyponatremia (4) Hyperkalemia (5) Upper GI bleed (6) Pressure sore on sacrum (7) Diarrhea (8) Severe malnutrition Plan diarrhea, reorder iv fluids,BUN/creatinine 70/.91 11/2019, enteral hydration , reji likely from infection, severe hypoalbuminemia and anasarca with poor prognosis Na higher iv adjusted, bicitra started for acidosis, add bicarb , serum bicarb better still large fluid losses from diarrhea Subjective ROS Limited/Unobtainable: Yes Objective Objective Last 24 Hour Vital Signs Date Time Temp Pulse Resp B/P (MAP) Pulse Ox O2 Delivery O2 Flow Rate FiO2 02/02/20 19:27 66 24 30 02/02/20 16:01 61 02/02/20 16:00 96.4 65 24 152/88 (109) 100 02/02/20 16:00 Mechanical Ventilator 02/02/20 16:00 30 02/02/20 15:05 62 24 30 02/02/20 12:00 30 02/02/20 12:00 96.6 65 24 148/85 (106) 100 02/02/20 12:00 Mechanical Ventilator 02/02/20 12:00 65 02/02/20 11:10 64 24 30 02/02/20 08:00 64 02/02/20 08:00 96.3 67 24 156/87 (110) 100 02/02/20 08:00 30 02/02/20 08:00 Mechanical Ventilator 02/02/20 07:10 61 24 30 02/02/20 04:00 30 02/02/20 04:00 98.7 87 24 153/93 (113) 100 02/02/20 04:00 Mechanical Ventilator 02/02/20 03:49 57 02/02/20 03:17 74 24 30 02/02/20 00:00 Mechanical Ventilator 02/02/20 00:00 96.6 61 24 138/92 (107) 100 02/02/20 00:00 58 02/01/20 23:11 71 24 30 02/01/20 20:00 97.4 63 24 146/80 (102) 100 02/01/20 20:00 Mechanical Ventilator 02/01/20 20:00 65 02/01/20 20:00 30 Intake and Output 02/01/20 02/02/20 19:00 07:00 Intake Total 2147 ml 1634 ml Output Total 400 ml 450 ml Balance 1747 ml 1184 ml Intake Free Water 200 ml IV Total 1000 ml 1190 ml Tube Feeding 407 ml 444 ml Other 540 ml Output Urine Total 400 ml 450 ml # Bowel Movements 5 5 Height (Feet): 5 Height (Inches): 5.00 Weight (Pounds): 201 General Appearance: lethargic, other - on vent Cardiovascular: regular rhythm Respiratory/Chest: rhonchi - bilaterally Abdomen: soft Extremities: moderate edema, other - gangrene Martin Yee MD Feb 02, 2020 19:39
[2020-02-02 20:00] VITALS: BP 151/83
[2020-02-03] VITALS: BP 145/78
[2020-02-03] MEDS: Metoclopramide 10mg/2ml Inj IVP SCH ×3 (01:28→18:16)
[2020-02-03] MEDS: D5W IV SCH ×3 (01:28→23:42)
[2020-02-03] MEDS: SODIUM BICARBONATE IV SCH ×3 (01:28→23:42)
[2020-02-03] MEDS: KCL IV SCH ×3 (01:28→23:42)
[2020-02-03 04:00] VITALS: BP 107/74
[2020-02-03 04:44] LABS: ANION GAP 12 mmol/L (5-15); BLOOD UREA NITROGEN 113 mg/dL (7-18); CALCIUM 8.4 MG/DL (8.5-10.1); CARBON DIOXIDE 29 MMOL/L (21-32); CHLORIDE 106 MMOL/L (98-107); CREATININE 4.2 MG/DL (0.55-1.30); POTASSIUM 3.7 MMOL/L (3.5-5.1); SODIUM 147 MMOL/L (136-145)
[2020-02-03 04:48] LABS: HEMATOCRIT 27.8 % (42.0-52.0); HEMOGLOBIN 8.9 G/DL (14.2-18.0); MEAN CORPUSCULAR VOLUME 90 FL (80-99); PLATELET COUNT 128 K/UL (150-450); RED BLOOD COUNT 3.09 M/UL (4.70-6.10); RED CELL DISTRIBUTION WIDTH 18.3 % (11.6-14.8)
[2020-02-03] MEDS: Sodium Citrate 30ml GT SCH ×4 (05:23→23:41)
[2020-02-03] MEDS: Insulin NovoLOG Flexpen S/S (Mod) SUBQ SCH ×4 (05:25→23:48)
--- NOTE | 2020-02-03 07:00 | Hematology/Onc Progress Note ---
Assessment/Plan Assessment/Plan Assessment and recs # Thrombocytopenia - potential causes multifactorial, evaluate liver and viral etiologies to begin, also could be related to underlying medications patient has received. May be due to DIC in this case, or consumption --> Hep panel and HIV negative --> US abd to evaluate for cirrhosis and hsm --> positive for mild hepatomegaly --> Peripheral smear ordered to evaluate for blasts /schistocytes --> abx and other meds have been reviewed --> ok for ppx if plt >50k w/ either heparin or lovenox --> Transfuse if Plt < 20k and fever, or if Plt < 10k without fever --> plt trend 41-->32-->21k-->20 -->61k-->45-->62-->51->38->55->50->70-->90--> 112 -->118 -->106-->109-->109-->114-->125 # Anemia due to Upper GI bleed, hematuria --> no evidence of hemolysis is noted --> smear noted --> anemia panel reviewed, ferritin high --> po iron ok --> for hematuria as per urology --> Pending endoscopy when clear from covid19 --> hgb trend: 9.1 ->8.3->6.9-->8.1-->8.3-->7.6 -->6.6-->10.5-->9.8-->9.3->8.5-- >8.6 -->8.5-->8.3-->8 -->7.7-->8.9 --> prbc: 2 units 01/02, 6 # Leukocytosis due to e/coli/kleb pna --> wbc trend 23-->32-->17.1-->13.9-->10-->15-->17.7-->21.8-->17-->20.2-->23--> 36.4-->30-->16-->14 --> as per id recs --> on connor/wilma--> vanc-->zosyn-->OFF --> c diff negative # Hyperkalemia --> kayxelate as needed --> k trend # ARF (acute renal failure) --> per renal # Hyponatremia # Gram negative pneumonia # Ventilator dependent respiratory failure # intracranial hemorrhage # paraplegia # Dysphagia with gtube # Dvt ppx scds The timing of this note does not necessarily reflect the time of the patient was seen. Greatly appreciate consultation. Subjective Allergies: Coded Allergies: No Known Allergies (Unverified , 10/07/19) All Systems: reviewed and negative except above Subjective 01/03obtunded, s/p rbc x2, hgb improved to 9.1, us abd reviewed, hematuria+ 01/04 plt are better, got 1 unit pf platets today as well, plt now 61k, less gi bleed overnight, some black tarry stool noted 01/05 nv, labs noted, hgb 8.5, no hemolysis noted, no bleeding, plt 83, egd tomorrow 01/06 egd for this am, results are pending, labs noted 01/09 no major changes, labs noted, no bleeding wbc higher, on abx 01/10 sdu, wbc improving, inr 1.4, vent, h/h stable, no distress 01/11 hgb 7.6, no tx required, repeat cbc for tomorrow, on vent 01/12 remains on vent, hgb 6.6, getting 2 iunits prbc today, will need picc 01/13 trach to vent, nepro feeds ongoing, hgb improved 10.5 01/14 s/p egd w/ peg, rectal tube, no acute events, h/h stable 01/15 remains obtunded, minimal blood in stool, will hold off on platelet administration 01/16 labs noted, nob leeding, meds reviewed, plt higher 01/18 sdu, nonverbal, no acute events, vent, vanc 01/19 remains on vent, with po vanc, wbc higher as is plt 01/20 sdu, obtunded, blisters to groin/scrotum area, labs reviewed 01/21 ctap and us abd reviewed, mild hepatomegaly, hgb 8.5, inr 1.8 01/22 remains on zosyn at this time, no bleeding, hgb .3, wbc 17 01/23 wbc trending up, contact isolation, no acute events 01/25 remains obtunded, melissa Rn, wbc 23, hgb 7.7, holding off transf 01/26 labs reviewed, no bleeding, hgb 7.7, yesterday, wit gtube feeds 01/27 sdu, no overnight events, wbc 22.4, iv abx, afebrile 01/28 obtunded, no new changes, labs reviewed, zosyn 01/29 labs reviewed, no bleeding, meds noted, wbc 30k 01/30 no acute events, nonverbal, c diff negative, vent 02/01 remains on vent, as well as gtube, remains nonverbal, abx off 02/02 remains vent, obtunded, no bleeding, some diarrhea, babb functional Objective Objective Current Medications Medications (Trade) Dose Ordered Sig/[place] Route PRN Reason Start Time Stop Time Status Last Admin Dose Admin Al Hydroxide/Mg Hydroxide (Mylanta) 30 ml QIDPRN PRN GT stomach upset 01/14/20 16:45 02/13/20 16:44 Artificial Tears (Akwa-Tears) 1 drop EVERY 12 HOURS BOTH EYES 01/14/20 21:00 02/13/20 20:59 02/02/20 20:08 Dextrose (Dextrose 50%) 25 ml Q30M PRN IV Hypoglycemia 01/14/20 16:45 04/13/20 16:44 01/20/20 09:08 Dextrose (Dextrose 50%) 50 ml Q30M PRN IV hypoglycemia 01/14/20 16:45 04/13/20 16:44 01/14/20 21:25 Diphenoxylate HCl/ Atropine (Lomotil) 2.5 mg Q4H PRN GT Diarrhea 01/30/20 10:00 02/21/20 11:59 02/01/20 09:17 Insulin Aspart (NovoLOG) No Dose Q6HR SUBQ 01/14/20 18:00 04/13/20 17:59 02/03/20 05:25 Lactobacillus Acidophilus (Culturelle) 1 tab TWICE A DAY GT 01/31/20 18:00 04/30/20 17:59 02/02/20 17:29 Loperamide HCl (Imodium) 2 mg Q6H PRN GT Diarrhea 01/28/20 14:18 02/27/20 14:17 02/02/20 05:58 Metoclopramide HCl (Reglan) 5 mg Q8H IVP 01/26/20 10:00 02/25/20 09:59 02/03/20 01:28 Ondansetron HCl (Zofran) 4 mg Q6H PRN IVP Nausea & Vomiting 01/26/20 09:15 02/25/20 09:14 Pantoprazole (Protonix) 40 mg DAILY IVP 01/20/20 09:00 02/19/20 08:59 02/02/20 08:59 Sodium Bicarbonate 100 ml/Dextrose/ Electrolytes 1,100 ml @ 100 mls/hr Q11H IV 01/28/20 14:00 02/27/20 13:59 02/03/20 01:28 Sodium Hypochlorite (Dakin's Half Strength) 1 applic DAILY TOPIC 01/15/20 09:00 02/14/20 08:59 02/02/20 09:00 Sodium Citrate (Bicitra) 30 ml EVERY 6 HOURS GT 01/20/20 18:00 02/19/20 17:59 02/03/20 05:23 Zinc Sulfate (Zinc Sulfate) 220 mg DAILY GT 01/15/20 09:00 04/14/20 08:59 02/02/20 08:59 Last 24 Hour Vital Signs Date Time Temp Pulse Resp B/P (MAP) Pulse Ox O2 Delivery O2 Flow Rate FiO2 02/03/20 04:00 71 02/03/20 04:00 30 02/03/20 04:00 Mechanical Ventilator 02/03/20 04:00 98.1 60 20 107/74 (85) 99 02/03/20 03:10 68 24 30 02/03/20 00:00 Mechanical Ventilator 02/03/20 00:00 96.7 60 24 145/78 (100) 100 02/02/20 23:00 64 24 30 02/02/20 20:00 30 02/02/20 20:00 96.6 63 24 151/83 (105) 100 02/02/20 20:00 Mechanical Ventilator 02/02/20 20:00 63 02/02/20 19:27 66 24 30 02/02/20 16:01 61 02/02/20 16:00 96.4 65 24 152/88 (109) 100 02/02/20 16:00 Mechanical Ventilator 02/02/20 16:00 30 02/02/20 15:05 62 24 30 02/02/20 12:00 30 02/02/20 12:00 96.6 65 24 148/85 (106) 100 02/02/20 12:00 Mechanical Ventilator 02/02/20 12:00 65 02/02/20 11:10 64 24 30 02/02/20 08:00 64 02/02/20 08:00 96.3 67 24 156/87 (110) 100 02/02/20 08:00 30 02/02/20 08:00 Mechanical Ventilator 02/02/20 07:10 61 24 30 02/02/20 04:00 30 02/02/20 04:00 98.7 87 24 153/93 (113) 100 02/02/20 04:00 Mechanical Ventilator 02/02/20 03:49 57 02/02/20 03:17 74 24 30 02/02/20 00:00 Mechanical Ventilator 02/02/20 00:00 96.6 61 24 138/92 (107) 100 02/02/20 00:00 58 02/01/20 23:11 71 24 30 02/01/20 20:00 97.4 63 24 146/80 (102) 100 02/01/20 20:00 Mechanical Ventilator 02/01/20 20:00 65 02/01/20 20:00 30 02/01/20 19:17 68 24 30 02/01/20 16:37 58 02/01/20 16:00 30 02/01/20 16:00 96.4 66 24 153/88 (109) 100 02/01/20 16:00 Mechanical Ventilator 02/01/20 15:18 61 24 30 02/01/20 12:00 30 02/01/20 12:00 96.8 66 24 137/74 (95) 100 02/01/20 12:00 Mechanical Ventilator 02/01/20 12:00 60 02/01/20 11:35 62 24 30 02/01/20 08:33 75 02/01/20 08:00 Mechanical Ventilator 02/01/20 08:00 30 02/01/20 08:00 96.8 73 25 98/52 (67) 100 02/01/20 07:29 65 26 30 Intake and Output 02/02/20 02/03/20 19:00 07:00 Intake Total 1981 ml 1607 ml Output Total 400 ml 400 ml Balance 1581 ml 1207 ml Intake Free Water 300 ml 100 ml IV Total 1200 ml 1100 ml Tube Feeding 481 ml 407 ml Output Urine Total 400 ml 400 ml # Bowel Movements 2 3 Labs Test 02/01/20 02:55 02/03/20 03:38 White Blood Count 16.5 K/UL (4.8-10.8) 18.0 K/UL (4.8-10.8) Red Blood Count 3.05 M/UL (4.70-6.10) 3.09 M/UL (4.70-6.10) Hemoglobin 8.9 G/DL (14.2-18.0) 8.9 G/DL (14.2-18.0) Hematocrit 27.5 % (42.0-52.0) 27.8 % (42.0-52.0) Mean Corpuscular Volume 90 FL (80-99) 90 FL (80-99) Mean Corpuscular Hemoglobin 29.1 PG (27.0-31.0) 28.8 PG (27.0-31.0) Mean Corpuscular Hemoglobin Concent 32.3 G/DL (32.0-36.0) 32.0 G/DL (32.0-36.0) Red Cell Distribution Width 18.6 % (11.6-14.8) 18.3 % (11.6-14.8) Platelet Count 125 K/UL (150-450) 128 K/UL (150-450) Mean Platelet Volume 11.2 FL (6.5-10.1) 13.2 FL (6.5-10.1) Neutrophils (%) (Auto) 80.1 % (45.0-75.0) % (45.0-75.0) Lymphocytes (%) (Auto) 9.7 % (20.0-45.0) % (20.0-45.0) Monocytes (%) (Auto) 8.0 % (1.0-10.0) % (1.0-10.0) Eosinophils (%) (Auto) 1.0 % (0.0-3.0) % (0.0-3.0) Basophils (%) (Auto) 1.2 % (0.0-2.0) % (0.0-2.0) Sodium Level 146 MMOL/L (136-145) 147 MMOL/L (136-145) Potassium Level 3.8 MMOL/L (3.5-5.1) 3.7 MMOL/L (3.5-5.1) Chloride Level 107 MMOL/L (98-107) 106 MMOL/L (98-107) Carbon Dioxide Level 25 MMOL/L (21-32) 29 MMOL/L (21-32) Anion Gap 14 mmol/L (5-15) 12 mmol/L (5-15) Blood Urea Nitrogen 114 mg/dL (7-18) 113 mg/dL (7-18) Creatinine 4.4 MG/DL (0.55-1.30) 4.2 MG/DL (0.55-1.30) Estimat Glomerular Filtration Rate 17.1 mL/min (>60) 18.1 mL/min (>60) Glucose Level 168 MG/DL (74-106) 176 MG/DL (74-106) Calcium Level 8.3 MG/DL (8.5-10.1) 8.4 MG/DL (8.5-10.1) Height (Feet): 5 Height (Inches): 5.00 Weight (Pounds): 185 Objective Physical Exam: Vitals: reviewed General: NAD ++obtunded HEENT: nc, at, mouth guard+ Neck: supple++trach Chest: clear breath sounds bilaterally Cardiovascular: RRR, no s3, s4 Abdomen/GI: soft, nontender, nd ++gtube, rectal tube+ Extremities: no cce, normal range of motion, ++ Spasticity in the left upper extremity. Flaccid on the right, scrotal blisters++ Neuro: nonfocal : skinny+ Wilmer Turner MD Feb 03, 2020 07:00
--- NOTE | 2020-02-03 07:49 | Pulmonology Progress Note ---
Subjective ROS Limited/Unobtainable: Yes Constitutional: Denies: fever Gastrointestinal/Abdominal: Reports: diarrhea Allergies: Coded Allergies: No Known Allergies (Unverified , 10/07/19) All Systems: reviewed and negative except above Subjective care noted on vent renal function poor labs noted aware of status Objective Last 24 Hour Vital Signs Date Time Temp Pulse Resp B/P (MAP) Pulse Ox O2 Delivery O2 Flow Rate FiO2 02/03/20 07:03 75 24 30 02/03/20 04:00 71 02/03/20 04:00 30 02/03/20 04:00 Mechanical Ventilator 02/03/20 04:00 98.1 60 20 107/74 (85) 99 02/03/20 03:10 68 24 30 02/03/20 00:00 Mechanical Ventilator 02/03/20 00:00 96.7 60 24 145/78 (100) 100 02/02/20 23:00 64 24 30 02/02/20 20:00 30 02/02/20 20:00 96.6 63 24 151/83 (105) 100 02/02/20 20:00 Mechanical Ventilator 02/02/20 20:00 63 02/02/20 19:27 66 24 30 02/02/20 16:01 61 02/02/20 16:00 96.4 65 24 152/88 (109) 100 02/02/20 16:00 Mechanical Ventilator 02/02/20 16:00 30 02/02/20 15:05 62 24 30 02/02/20 12:00 30 02/02/20 12:00 96.6 65 24 148/85 (106) 100 02/02/20 12:00 Mechanical Ventilator 02/02/20 12:00 65 02/02/20 11:10 64 24 30 02/02/20 08:00 64 02/02/20 08:00 96.3 67 24 156/87 (110) 100 02/02/20 08:00 30 02/02/20 08:00 Mechanical Ventilator Intake and Output 02/02/20 02/03/20 19:00 07:00 Intake Total 1981 ml 1707 ml Output Total 400 ml 400 ml Balance 1581 ml 1307 ml Intake Free Water 300 ml 100 ml IV Total 1200 ml 1200 ml Tube Feeding 481 ml 407 ml Output Urine Total 400 ml 400 ml # Bowel Movements 2 3 Objective WDWN trach clear breath sounds bilaterally without rhonchi or wheeze [id number] without MRG NABS nontender no HSM no CC edema poor LOC reviewed and edited Laboratory Tests 02/03/20 03:38: White Blood Count 18.0H, Red Blood Count 3.09L, Hemoglobin 8.9L, Hematocrit 27.8L, Mean Corpuscular Volume 90, Mean Corpuscular Hemoglobin 28.8, Mean Corpuscular Hemoglobin Concent 32.0, Red Cell Distribution Width 18.3H, Platelet Count 128L, Mean Platelet Volume 13.2H, Neutrophils (%) (Auto) , Lymphocytes (%) (Auto) , Monocytes (%) (Auto) , Eosinophils (%) (Auto) , Basophils (%) (Auto) , Neutrophils % (Manual) [Pending], Lymphocytes % (Manual) [Pending], Platelet Estimate [Pending], Platelet Morphology [Pending], Sodium Level 147H, Potassium Level 3.7, Chloride Level 106, Carbon Dioxide Level 29, Anion Gap 12, Blood Urea Nitrogen 113H, Creatinine 4.2H, Estimat Glomerular Filtration Rate 18.1, Glucose Level 176H, Calcium Level 8.4L Current Medications Medications (Trade) Dose Ordered Sig/[place] Route PRN Reason Start Time Stop Time Status Last Admin Dose Admin Al Hydroxide/Mg Hydroxide (Mylanta) 30 ml QIDPRN PRN GT stomach upset 01/14/20 16:45 02/13/20 16:44 Artificial Tears (Akwa-Tears) 1 drop EVERY 12 HOURS BOTH EYES 01/14/20 21:00 02/13/20 20:59 02/02/20 20:08 Dextrose (Dextrose 50%) 25 ml Q30M PRN IV Hypoglycemia 01/14/20 16:45 04/13/20 16:44 01/20/20 09:08 Dextrose (Dextrose 50%) 50 ml Q30M PRN IV hypoglycemia 01/14/20 16:45 04/13/20 16:44 01/14/20 21:25 Diphenoxylate HCl/ Atropine (Lomotil) 2.5 mg Q4H PRN GT Diarrhea 01/30/20 10:00 02/21/20 11:59 02/01/20 09:17 Insulin Aspart (NovoLOG) No Dose Q6HR SUBQ 01/14/20 18:00 04/13/20 17:59 02/03/20 05:25 Lactobacillus Acidophilus (Culturelle) 1 tab TWICE A DAY GT 01/31/20 18:00 04/30/20 17:59 02/02/20 17:29 Loperamide HCl (Imodium) 2 mg Q6H PRN GT Diarrhea 01/28/20 14:18 02/27/20 14:17 02/02/20 05:58 Metoclopramide HCl (Reglan) 5 mg Q8H IVP 01/26/20 10:00 02/25/20 09:59 02/03/20 01:28 Ondansetron HCl (Zofran) 4 mg Q6H PRN IVP Nausea & Vomiting 01/26/20 09:15 02/25/20 09:14 Pantoprazole (Protonix) 40 mg DAILY IVP 01/20/20 09:00 02/19/20 08:59 02/02/20 08:59 Sodium Bicarbonate 100 ml/Dextrose/ Electrolytes 1,100 ml @ 100 mls/hr Q11H IV 01/28/20 14:00 02/27/20 13:59 02/03/20 01:28 Sodium Hypochlorite (Dakin's Half Strength) 1 applic DAILY TOPIC 01/15/20 09:00 02/14/20 08:59 02/02/20 09:00 Sodium Citrate (Bicitra) 30 ml EVERY 6 HOURS GT 01/20/20 18:00 02/19/20 17:59 02/03/20 05:23 Zinc Sulfate (Zinc Sulfate) 220 mg DAILY GT 01/15/20 09:00 04/14/20 08:59 02/02/20 08:59 Assessment/Plan Assessment/Plan IMPRESSION chronic respiratory failure Acute on chronic renal failure elevated K anemia GIB leukocytosis possible sepsis oral bleeding diarrhea transaminitis PLAN ID , GI and renal clearance vent as is monitor vitals not safe for dc full code/ per prognosis very poor for recovery off antibiotics poor candidate for HD dc to snf today if possible impression, plan, and exam edited and reviewed in detail care discussed with Lorenzo Chase MD Feb 03, 2020 07:49
[2020-02-03 08:00] VITALS: BP 155/79
[2020-02-03] MEDS: Pantoprazole Inj IVP SCH (09:31)
[2020-02-03] MEDS: Zinc Sulfate 220mg GT SCH (09:31)
[2020-02-03] MEDS: Dakin's 0.25% (Half Strength) 16oz TOPIC SCH (09:32)
[2020-02-03] MEDS: Lactobacillus-GG tablet GT SCH ×2 (09:33→18:15)
--- NOTE | 2020-02-03 10:23 | General Progress Note ---
Assessment/Plan Assessment/Plan: sepsis anemia GIB thrombocytopenia hyponatremia ARF DM dysphagia with GT s/p EGD/PEG GTF will resume lomotil prn imodium prn ppi elevated LFTS>>> stable us reviewed fu abd CT, reviewed protonix daily on Imodium will fu Subjective ROS Limited/Unobtainable: No Allergies: Coded Allergies: No Known Allergies (Unverified , 10/07/19) Objective Last 24 Hour Vital Signs Date Time Temp Pulse Resp B/P (MAP) Pulse Ox O2 Delivery O2 Flow Rate FiO2 02/03/20 08:00 75 02/03/20 08:00 30 02/03/20 08:00 Mechanical Ventilator 02/03/20 08:00 98.8 74 18 155/79 (104) 97 02/03/20 07:03 75 24 30 02/03/20 04:00 71 02/03/20 04:00 30 02/03/20 04:00 Mechanical Ventilator 02/03/20 04:00 98.1 60 20 107/74 (85) 99 02/03/20 03:10 68 24 30 02/03/20 00:00 Mechanical Ventilator 02/03/20 00:00 96.7 60 24 145/78 (100) 100 02/02/20 23:00 64 24 30 02/02/20 20:00 30 02/02/20 20:00 96.6 63 24 151/83 (105) 100 02/02/20 20:00 Mechanical Ventilator 02/02/20 20:00 63 02/02/20 19:27 66 24 30 02/02/20 16:01 61 02/02/20 16:00 96.4 65 24 152/88 (109) 100 02/02/20 16:00 Mechanical Ventilator 02/02/20 16:00 30 02/02/20 15:05 62 24 30 02/02/20 12:00 30 02/02/20 12:00 96.6 65 24 148/85 (106) 100 02/02/20 12:00 Mechanical Ventilator 02/02/20 12:00 65 02/02/20 11:10 64 24 30 Intake and Output 02/02/20 02/03/20 19:00 07:00 Intake Total 1981 ml 1707 ml Output Total 400 ml 400 ml Balance 1581 ml 1307 ml Intake Free Water 300 ml 100 ml IV Total 1200 ml 1200 ml Tube Feeding 481 ml 407 ml Output Urine Total 400 ml 400 ml # Bowel Movements 2 3 Laboratory Tests 02/03/20 03:38: White Blood Count 18.0H, Red Blood Count 3.09L, Hemoglobin 8.9L, Hematocrit 27.8L, Mean Corpuscular Volume 90, Mean Corpuscular Hemoglobin 28.8, Mean Corpuscular Hemoglobin Concent 32.0, Red Cell Distribution Width 18.3H, Platelet Count 128L, Mean Platelet Volume 13.2H, Neutrophils (%) (Auto) , Lymphocytes (%) (Auto) , Monocytes (%) (Auto) , Eosinophils (%) (Auto) , Basophils (%) (Auto) , Differential Total Cells Counted 100, Neutrophils % ( Manual) 83H, Lymphocytes % (Manual) 10L, Monocytes % (Manual) 6, Eosinophils % ( Manual) 1, Basophils % (Manual) 0, Band Neutrophils 0, Platelet Estimate DecreasedL, Platelet Morphology Normal, Hypochromasia 1+, Anisocytosis 1+, Sodium Level 147H, Potassium Level 3.7, Chloride Level 106, Carbon Dioxide Level 29, Anion Gap 12, Blood Urea Nitrogen 113H, Creatinine 4.2H, Estimat Glomerular Filtration Rate 18.1, Glucose Level 176H, Calcium Level 8.4L Height (Feet): 5 Height (Inches): 5.00 Weight (Pounds): 185 General Appearance: no apparent distress EENT: PERRL/EOMI Neck: supple Cardiovascular: normal rate Respiratory/Chest: decreased breath sounds Abdomen: normal bowel sounds, non tender, soft Extremities: non-tender Toni Mckenzie MD Feb 03, 2020 10:23
--- NOTE | 2020-02-03 10:38 | Infectious Diseases Prog Note ---
Assessment/Plan Assessment/Plan antibiotics : none A 1. providencia, klebsiella, e.coli pneumonia s/p rx 2. renal failure 3. respiratory failure 4. intracranial hemorrhage 5. paraplegia 6. leucocytosis improving 7. COVID 19 test negative x 2 8. gangrene of feet bilaterally P 1. continue off antibiotics 2. will follow up cultures Subjective ROS Limited/Unobtainable: Yes Allergies: Coded Allergies: No Known Allergies (Unverified , 10/07/19) Objective Vital Signs Last 24 Hour Vital Signs Date Time Temp Pulse Resp B/P (MAP) Pulse Ox O2 Delivery O2 Flow Rate FiO2 02/03/20 08:00 75 02/03/20 08:00 30 02/03/20 08:00 Mechanical Ventilator 02/03/20 08:00 98.8 74 18 155/79 (104) 97 02/03/20 07:03 75 24 30 02/03/20 04:00 71 02/03/20 04:00 30 02/03/20 04:00 Mechanical Ventilator 02/03/20 04:00 98.1 60 20 107/74 (85) 99 02/03/20 03:10 68 24 30 02/03/20 00:00 Mechanical Ventilator 02/03/20 00:00 96.7 60 24 145/78 (100) 100 02/02/20 23:00 64 24 30 02/02/20 20:00 30 02/02/20 20:00 96.6 63 24 151/83 (105) 100 02/02/20 20:00 Mechanical Ventilator 02/02/20 20:00 63 02/02/20 19:27 66 24 30 02/02/20 16:01 61 02/02/20 16:00 96.4 65 24 152/88 (109) 100 02/02/20 16:00 Mechanical Ventilator 02/02/20 16:00 30 02/02/20 15:05 62 24 30 02/02/20 12:00 30 02/02/20 12:00 96.6 65 24 148/85 (106) 100 02/02/20 12:00 Mechanical Ventilator 02/02/20 12:00 65 02/02/20 11:10 64 24 30 Height (Feet): 5 Height (Inches): 5.00 Weight (Pounds): 185 HEENT: status post trach Respiratory/Chest: lungs clear Cardiovascular: normal rate, regular rhythm, no gallop/murmur Abdomen: soft, non tender, other - GT Extremities: no edema, other - necrotic feet bilaterally Laboratory Tests Test 02/03/20 03:38 White Blood Count 18.0 K/UL (4.8-10.8) H Red Blood Count 3.09 M/UL (4.70-6.10) L Hemoglobin 8.9 G/DL (14.2-18.0) L Hematocrit 27.8 % (42.0-52.0) L Mean Corpuscular Volume 90 FL (80-99) Mean Corpuscular Hemoglobin 28.8 PG (27.0-31.0) Mean Corpuscular Hemoglobin Concent 32.0 G/DL (32.0-36.0) Red Cell Distribution Width 18.3 % (11.6-14.8) H Platelet Count 128 K/UL (150-450) L Mean Platelet Volume 13.2 FL (6.5-10.1) H Neutrophils (%) (Auto) % (45.0-75.0) Lymphocytes (%) (Auto) % (20.0-45.0) Monocytes (%) (Auto) % (1.0-10.0) Eosinophils (%) (Auto) % (0.0-3.0) Basophils (%) (Auto) % (0.0-2.0) Differential Total Cells Counted 100 Neutrophils % (Manual) 83 % (45-75) H Lymphocytes % (Manual) 10 % (20-45) L Monocytes % (Manual) 6 % (1-10) Eosinophils % (Manual) 1 % (0-3) Basophils % (Manual) 0 % (0-2) Band Neutrophils 0 % (0-8) Platelet Estimate Decreased L Platelet Morphology Normal Hypochromasia 1+ Anisocytosis 1+ Sodium Level 147 MMOL/L (136-145) H Potassium Level 3.7 MMOL/L (3.5-5.1) Chloride Level 106 MMOL/L (98-107) Carbon Dioxide Level 29 MMOL/L (21-32) Anion Gap 12 mmol/L (5-15) Blood Urea Nitrogen 113 mg/dL (7-18) H Creatinine 4.2 MG/DL (0.55-1.30) H Estimat Glomerular Filtration Rate 18.1 mL/min (>60) Glucose Level 176 MG/DL (74-106) H Calcium Level 8.4 MG/DL (8.5-10.1) L Current Medications Medications (Trade) Dose Ordered Sig/[place] Route PRN Reason Start Time Stop Time Status Last Admin Dose Admin Al Hydroxide/Mg Hydroxide (Mylanta) 30 ml QIDPRN PRN GT stomach upset 01/14/20 16:45 02/13/20 16:44 Artificial Tears (Akwa-Tears) 1 drop EVERY 12 HOURS BOTH EYES 01/14/20 21:00 02/13/20 20:59 02/03/20 09:42 Dextrose (Dextrose 50%) 25 ml Q30M PRN IV Hypoglycemia 01/14/20 16:45 04/13/20 16:44 01/20/20 09:08 Dextrose (Dextrose 50%) 50 ml Q30M PRN IV hypoglycemia 01/14/20 16:45 04/13/20 16:44 01/14/20 21:25 Diphenoxylate HCl/ Atropine (Lomotil) 2.5 mg Q4H PRN GT Diarrhea 01/30/20 10:00 02/21/20 11:59 02/01/20 09:17 Insulin Aspart (NovoLOG) No Dose Q6HR SUBQ 01/14/20 18:00 04/13/20 17:59 02/03/20 05:25 Lactobacillus Acidophilus (Culturelle) 1 tab TWICE A DAY GT 01/31/20 18:00 04/30/20 17:59 02/03/20 09:33 Loperamide HCl (Imodium) 2 mg Q6H PRN GT Diarrhea 01/28/20 14:18 02/27/20 14:17 02/02/20 05:58 Metoclopramide HCl (Reglan) 5 mg Q8H IVP 01/26/20 10:00 02/25/20 09:59 02/03/20 09:30 Ondansetron HCl (Zofran) 4 mg Q6H PRN IVP Nausea & Vomiting 01/26/20 09:15 02/25/20 09:14 Pantoprazole (Protonix) 40 mg DAILY IVP 01/20/20 09:00 02/19/20 08:59 02/03/20 09:31 Sodium Bicarbonate 100 ml/Dextrose/ Electrolytes 1,100 ml @ 100 mls/hr Q11H IV 01/28/20 14:00 02/27/20 13:59 02/03/20 01:28 Sodium Hypochlorite (Dakin's Half Strength) 1 applic DAILY TOPIC 01/15/20 09:00 02/14/20 08:59 02/03/20 09:32 Sodium Citrate (Bicitra) 30 ml EVERY 6 HOURS GT 01/20/20 18:00 02/19/20 17:59 02/03/20 05:23 Zinc Sulfate (Zinc Sulfate) 220 mg DAILY GT 01/15/20 09:00 04/14/20 08:59 02/03/20 09:31 Tony Apple MD Feb 03, 2020 10:38
[2020-02-03 12:00] VITALS: BP 140/56
[2020-02-03 16:00] VITALS: BP 128/84
--- NOTE | 2020-02-03 16:08 | Nephrology Progress Note ---
Assessment/Plan Problem List: (1) Respiratory failure (2) ARF (acute renal failure) (3) Hyponatremia (4) Hyperkalemia (5) Upper GI bleed (6) Pressure sore on sacrum (7) Diarrhea (8) Severe malnutrition Plan diarrhea, reorder iv fluids,BUN/creatinine 70/.91 11/2019, enteral hydration , reji likely from infection, severe hypoalbuminemia and anasarca with poor prognosis Na higher iv adjusted, bicitra started for acidosis, add bicarb , serum bicarb better still large fluid losses from diarrhea Subjective ROS Limited/Unobtainable: Yes Objective Objective Last 24 Hour Vital Signs Date Time Temp Pulse Resp B/P (MAP) Pulse Ox O2 Delivery O2 Flow Rate FiO2 02/03/20 14:58 80 24 30 02/03/20 12:00 98.0 83 18 140/56 (84) 97 02/03/20 12:00 30 02/03/20 12:00 82 02/03/20 12:00 Mechanical Ventilator 02/03/20 10:53 85 24 30 02/03/20 08:00 75 02/03/20 08:00 30 02/03/20 08:00 Mechanical Ventilator 02/03/20 08:00 98.8 74 18 155/79 (104) 97 02/03/20 07:03 75 24 30 02/03/20 04:00 71 02/03/20 04:00 30 02/03/20 04:00 Mechanical Ventilator 02/03/20 04:00 98.1 60 20 107/74 (85) 99 02/03/20 03:10 68 24 30 02/03/20 00:00 Mechanical Ventilator 02/03/20 00:00 96.7 60 24 145/78 (100) 100 02/02/20 23:00 64 24 30 02/02/20 20:00 30 02/02/20 20:00 96.6 63 24 151/83 (105) 100 02/02/20 20:00 Mechanical Ventilator 02/02/20 20:00 63 02/02/20 19:27 66 24 30 Intake and Output 02/02/20 02/03/20 19:00 07:00 Intake Total 1981 ml 1707 ml Output Total 400 ml 400 ml Balance 1581 ml 1307 ml Intake Free Water 300 ml 100 ml IV Total 1200 ml 1200 ml Tube Feeding 481 ml 407 ml Output Urine Total 400 ml 400 ml # Bowel Movements 2 3 Laboratory Tests 02/03/20 03:38: White Blood Count 18.0H, Red Blood Count 3.09L, Hemoglobin 8.9L, Hematocrit 27.8L, Mean Corpuscular Volume 90, Mean Corpuscular Hemoglobin 28.8, Mean Corpuscular Hemoglobin Concent 32.0, Red Cell Distribution Width 18.3H, Platelet Count 128L, Mean Platelet Volume 13.2H, Neutrophils (%) (Auto) , Lymphocytes (%) (Auto) , Monocytes (%) (Auto) , Eosinophils (%) (Auto) , Basophils (%) (Auto) , Differential Total Cells Counted 100, Neutrophils % ( Manual) 83H, Lymphocytes % (Manual) 10L, Monocytes % (Manual) 6, Eosinophils % ( Manual) 1, Basophils % (Manual) 0, Band Neutrophils 0, Platelet Estimate DecreasedL, Platelet Morphology Normal, Hypochromasia 1+, Anisocytosis 1+, Sodium Level 147H, Potassium Level 3.7, Chloride Level 106, Carbon Dioxide Level 29, Anion Gap 12, Blood Urea Nitrogen 113H, Creatinine 4.2H, Estimat Glomerular Filtration Rate 18.1, Glucose Level 176H, Calcium Level 8.4L Height (Feet): 5 Height (Inches): 5.00 Weight (Pounds): 185 General Appearance: other - on vent Cardiovascular: regular rhythm Respiratory/Chest: crackles/rales Abdomen: soft Extremities: moderate edema Neurologic: unresponsive Martin Yee MD Feb 03, 2020 16:08
[2020-02-03 20:00] VITALS: BP_SYST 138; BP_SYST 143; BP_DIAS 70; BP_DIAS 78
--- NOTE | 2020-02-03 21:53 | Surgery Progress Note ---
Surgery Progress Note Subjective Procedure Performed right femoral central venous catheter removal Additional Comments obtunded ill appearing colloar in place on support no n/v/f c Objective Last 24 Hour Vital Signs Date Time Temp Pulse Resp B/P (MAP) Pulse Ox O2 Delivery O2 Flow Rate FiO2 02/03/20 18:55 79 24 30 02/03/20 16:00 98.9 80 18 128/84 (99) 97 02/03/20 16:00 Mechanical Ventilator 02/03/20 16:00 30 02/03/20 16:00 80 02/03/20 14:58 80 24 30 02/03/20 12:00 98.0 83 18 140/56 (84) 97 02/03/20 12:00 30 02/03/20 12:00 82 02/03/20 12:00 Mechanical Ventilator 02/03/20 10:53 85 24 30 02/03/20 08:00 75 02/03/20 08:00 30 02/03/20 08:00 Mechanical Ventilator 02/03/20 08:00 98.8 74 18 155/79 (104) 97 02/03/20 07:03 75 24 30 02/03/20 04:00 71 02/03/20 04:00 30 02/03/20 04:00 Mechanical Ventilator 02/03/20 04:00 98.1 60 20 107/74 (85) 99 02/03/20 03:10 68 24 30 02/03/20 00:00 Mechanical Ventilator 02/03/20 00:00 96.7 60 24 145/78 (100) 100 02/02/20 23:00 64 24 30 I&O Intake and Output 02/02/20 02/03/20 19:00 07:00 Intake Total 1981 ml 1744 ml Output Total 400 ml 400 ml Balance 1581 ml 1344 ml Intake Free Water 300 ml 100 ml IV Total 1200 ml 1200 ml Tube Feeding 481 ml 444 ml Output Urine Total 400 ml 400 ml # Bowel Movements 2 3 Dressing: other Wound: other Drains: other Cardiovascular: RSR Respiratory: decreased breath sounds Abdomen: soft, distended, non-tender, present bowel sounds Extremities: edema, no cyanosis Laboratory Tests Test 02/03/20 03:38 White Blood Count 18.0 K/UL (4.8-10.8) H Red Blood Count 3.09 M/UL (4.70-6.10) L Hemoglobin 8.9 G/DL (14.2-18.0) L Hematocrit 27.8 % (42.0-52.0) L Mean Corpuscular Volume 90 FL (80-99) Mean Corpuscular Hemoglobin 28.8 PG (27.0-31.0) Mean Corpuscular Hemoglobin Concent 32.0 G/DL (32.0-36.0) Red Cell Distribution Width 18.3 % (11.6-14.8) H Platelet Count 128 K/UL (150-450) L Mean Platelet Volume 13.2 FL (6.5-10.1) H Neutrophils (%) (Auto) % (45.0-75.0) Lymphocytes (%) (Auto) % (20.0-45.0) Monocytes (%) (Auto) % (1.0-10.0) Eosinophils (%) (Auto) % (0.0-3.0) Basophils (%) (Auto) % (0.0-2.0) Differential Total Cells Counted 100 Neutrophils % (Manual) 83 % (45-75) H Lymphocytes % (Manual) 10 % (20-45) L Monocytes % (Manual) 6 % (1-10) Eosinophils % (Manual) 1 % (0-3) Basophils % (Manual) 0 % (0-2) Band Neutrophils 0 % (0-8) Platelet Estimate Decreased L Platelet Morphology Normal Hypochromasia 1+ Anisocytosis 1+ Sodium Level 147 MMOL/L (136-145) H Potassium Level 3.7 MMOL/L (3.5-5.1) Chloride Level 106 MMOL/L (98-107) Carbon Dioxide Level 29 MMOL/L (21-32) Anion Gap 12 mmol/L (5-15) Blood Urea Nitrogen 113 mg/dL (7-18) H Creatinine 4.2 MG/DL (0.55-1.30) H Estimat Glomerular Filtration Rate 18.1 mL/min (>60) Glucose Level 176 MG/DL (74-106) H Calcium Level 8.4 MG/DL (8.5-10.1) L Plan Problems: (1) Hyponatremia (2) ARF (acute renal failure) (3) Hyperkalemia (4) Pressure sore on sacrum Assessment & Plan: Pt presented on admission with Sacral Pressure injury and Necrosis Both Both R lower ext, R foot and L foot. Generalized edema noted. Both upper ext noted to have multiple serous blisters ,some of which are weeping serous exudate. Full thickness Sacral Pressure Injury with undermined Borders. Base of wound is 75% loose necrotic tissue,25% bree. Bone exposure at base of wound. Area of necrosis noted at distal aspect of wound in space between wound and anus.Edges are macerated. Wound is malodorous.(L)9.5cm x (W)9.2cm x (D)2.9cm,undermining clockwise 10-3 by 3.8cm @12 o'clock. Scattered areas of hyperpigmentation noted to R and L clefts of buttocks. Unable to determine exudate as pt is continuously oozing large amt of semi soft black stool and leaking into wound because of close proximity to his rectum. At upper, R gluteal cheek is additional Pressure Injury with small amt Biofilm at base of wound. Edges are pink and adherent to base of wound. No exudate noted.(L)3cm x (W)2.6cm. Medially to distal Tibia,and extending to R foot is necrotic and malodorous.Wound is partially opened at posterior R tibia but is dry . L foot is necrotic and malodorous. No exudate noted. Tx.Plan: Cleanse Sacral wound with Dakin's 0.25% archana.. Loosely Pack wound with Dakin's moistened Kerlix.Apply Moisture Barrier Paste periwound.Cover with Optifoam drsg.Change Daily and PRN. Cleanse R lower ext and R foot with Dakin's 0.25% Archana. Cover wounds with ABD Pads.Wrap with Kerlix Daily and prn. Cleanse L foot Wounds with Dakin's 0.25% Archana. Cover wounds with ABD Pads and wrap with Kerlix Daily and prn. soft collar placed (5) Upper GI bleed Assessment & Plan: Patient with sepsis, abnormal labs, GI bleed, pending COVID eval. Labs noted. Exam reviewed. Chest x-ray noted as below. Discussed with GI. Plan for endoscopy once COVID status evaluated. Trend hemoglobin for now transfuse PRN. G-tube is functional and okay for medications and will plan tube feeds accordingly. No acute surgical intervention as patient is actively bleeding. Proton pump inhibitor recommended and Rx as written. Will follow with recommendations thank you for let me participate in patient's care plt low anemia prognosis guarded no active GI bleeding noted Status post PEG Tolerating tube feeds but still having diarrhea Difficult with rectal tube slides right out likely from spinal injury Anasarca stable No active bleeding worsening congestion line Free currently will monitor closely There is a tracheostomy in place. Vascularity is normal. Hazy densities in the lung bases may be layering effusions. Cardiac and mediastinal silhouette are within normal limits. The bony thorax appear unremarkable. line removed will monitor for bleeding IMPRESSION: Bibasilar hazy densities perhaps layering effusions. right fem line not functional noted manipulation as suture was dislodged. line replaced 1. Two or three gastric AVMs. 2. Ulcer with a small visible vessel, status post gold probe bipolar cauterization. DAILY ESTIMATED NEEDS: Needs based on Critical Care, Wounds, TR / 61kg 25-30 kcals/kg 1475-1157 total kcals 0.8-1.25 (increase w/ renal improvement) g protein/kg 49-76 g total protein 25-30 mL/kg 4172-4334 total fluid mLs NUTRITION DIAGNOSIS: * Swallowing difficulty R/T respiratory status, dysphagia as evidenced by trach/vent dep, PEG dep. * Increased kcal/prot intake needs R/T wound healing as evidenced by admtited w/ multiple wounds including full thickness wound @ sacrum, pressure Injury with small amt Biofilm at base of wound @ uppera R gluteal cheek, necrotic wound @ medial to distal Tibia,and extending to R foot and L foot * Altered nutrition related lab R/T TR as evidenced by elev BUN (215-> 96), elev creat (5.2->4.2), low Na (124 ->148), elev K (6.7 -> wnl) CURRENT TF:Nepro @ 37ml/hr x 24 hrs ENTERAL NUTRITION RECOMMENDATIONS: Nepro @ 37ml/hr x 24 hrs to provide 888ml, 1598kcal, 72g prot, 646ml free water * Maintain current TF -> rec Nepro at this time given TR (Creat 5.2-> 4.3) w/ elev K upon adm * HOB over 30 degrees/ water flush per MD W/ CONTINUED DIARRHEA, consider trial of elemental formula of Vital AF 1.2 @ goal rate of 45ml/hr x 24 hrs to provide 1080ml, 1296kcal, 81g prot, 876lm free water: will meet 85% est kcal and 106% est prot needs. -----> W/ non renal TF, monitor lytes closely (K wnl at this time, phos level not available) ADDITIONAL RECOMMENDATIONS: * Per SNF: HT=62" WT= 135lbs (12/25/19) * Monitor renal fxn and lytes (Creat 5.3 -> 4.1) -> check phos and mag (not checked since adm) * Wound healing: Once TF well tolerated at goal, add Ajay BID * Monitor for hypoglycemia: no further episodes (now 70's) * Add probiotics to help improve gut ewelina- + diarrhea -> consider trial of elemental TF of Vital AF Study is somewhat limited due to anasarca and overlying bowel gas, midline gastrostomy bandages. Gallbladder demonstrates sludge and tiny stones. The gallbladder wall is mildly thickened. Sonographic Velázquez sign could not be assessed. Common bile duct measures 4 mm in diameter. No intrahepatic biliary ductal dilatation. The liver is enlarged. It demonstrates normal echogenicity. No focal abnormality. Small amount of ascites fluid is seen at the anterior liver surface and adjacent to the gallbladder, left upper quadrant, and in the pelvis Portal vein and hepatic veins are patent. Pancreas is obscured by bowel gas. Spleen is unremarkable. Left kidney measures 11.4 cm in length. Right kidney measures 10.9 cm length. Both kidneys demonstrate normal echogenicity. There is no hydronephrosis. No focal abnormality . Abdominal aorta is partially obscured by bowel gas, visualized portions are non-aneurysmal . There are small bilateral pleural effusions (6) Severe malnutrition Assessment & Plan: emesis tf on hold monitor residuals (7) Respiratory failure Javid Singh Feb 03, 2020 21:53
[2020-02-04] VITALS: BP 138/70
[2020-02-04] MEDS: Metoclopramide 10mg/2ml Inj IVP SCH ×2 (02:15→09:34)
[2020-02-04 04:00] VITALS: BP 127/75
[2020-02-04] MEDS: Sodium Citrate 30ml GT SCH ×2 (06:02→12:32)
[2020-02-04] MEDS: Insulin NovoLOG Flexpen S/S (Mod) SUBQ SCH ×2 (06:04→12:18)
--- NOTE | 2020-02-04 07:09 | Hematology/Onc Progress Note ---
Assessment/Plan Assessment/Plan Assessment and recs # Thrombocytopenia - potential causes multifactorial, evaluate liver and viral etiologies to begin, also could be related to underlying medications patient has received. May be due to DIC in this case, or consumption --> Hep panel and HIV negative --> US abd to evaluate for cirrhosis and hsm --> positive for mild hepatomegaly --> Peripheral smear ordered to evaluate for blasts /schistocytes --> abx and other meds have been reviewed --> ok for ppx if plt >50k w/ either heparin or lovenox --> Transfuse if Plt < 20k and fever, or if Plt < 10k without fever --> plt trend 41-->32-->21k-->20 -->61k-->45-->62-->51->38->55->50->70-->90--> 112 -->118 -->106-->109-->109-->114-->125--.128 # Anemia due to Upper GI bleed, hematuria --> no evidence of hemolysis is noted --> smear noted --> anemia panel reviewed, ferritin high --> po iron ok --> for hematuria as per urology --> Pending endoscopy when clear from covid19 --> hgb trend: 9.1 ->8.3->6.9-->8.1-->8.3-->7.6 -->6.6-->10.5-->9.8-->9.3->8.5-- >8.6 -->8.5-->8.3-->8 -->7.7-->8.9 --> prbc: 2 units 01/02, 6 # Leukocytosis due to e/coli/kleb pna --> wbc trend 23-->32-->17.1-->13.9-->10-->15-->17.7-->21.8-->17-->20.2-->23--> 36.4-->30-->16-->14 --> as per id recs --> on connor/wilma--> vanc-->zosyn-->OFF --> c diff negative # Hyperkalemia --> kayxelate as needed --> k trend # ARF (acute renal failure) --> per renal # Hyponatremia # Gram negative pneumonia # Ventilator dependent respiratory failure # intracranial hemorrhage # paraplegia # Dysphagia with gtube # Dvt ppx scds The timing of this note does not necessarily reflect the time of the patient was seen. Greatly appreciate consultation. Subjective Allergies: Coded Allergies: No Known Allergies (Unverified , 10/07/19) All Systems: reviewed and negative except above Subjective 01/03obtunded, s/p rbc x2, hgb improved to 9.1, us abd reviewed, hematuria+ 01/04 plt are better, got 1 unit pf platets today as well, plt now 61k, less gi bleed overnight, some black tarry stool noted 01/05 nv, labs noted, hgb 8.5, no hemolysis noted, no bleeding, plt 83, egd tomorrow 01/06 egd for this am, results are pending, labs noted 01/09 no major changes, labs noted, no bleeding wbc higher, on abx 01/10 sdu, wbc improving, inr 1.4, vent, h/h stable, no distress 01/11 hgb 7.6, no tx required, repeat cbc for tomorrow, on vent 01/12 remains on vent, hgb 6.6, getting 2 iunits prbc today, will need picc 01/13 trach to vent, nepro feeds ongoing, hgb improved 10.5 01/14 s/p egd w/ peg, rectal tube, no acute events, h/h stable 01/15 remains obtunded, minimal blood in stool, will hold off on platelet administration 01/16 labs noted, nob leeding, meds reviewed, plt higher 01/18 sdu, nonverbal, no acute events, vent, vanc 01/19 remains on vent, with po vanc, wbc higher as is plt 01/20 sdu, obtunded, blisters to groin/scrotum area, labs reviewed 01/21 ctap and us abd reviewed, mild hepatomegaly, hgb 8.5, inr 1.8 01/22 remains on zosyn at this time, no bleeding, hgb .3, wbc 17 01/23 wbc trending up, contact isolation, no acute events 01/25 remains obtunded, dw Rn, wbc 23, hgb 7.7, holding off transf 01/26 labs reviewed, no bleeding, hgb 7.7, yesterday, wit gtube feeds 01/27 sdu, no overnight events, wbc 22.4, iv abx, afebrile 01/28 obtunded, no new changes, labs reviewed, zosyn 01/29 labs reviewed, no bleeding, meds noted, wbc 30k 01/30 no acute events, nonverbal, c diff negative, vent 02/01 remains on vent, as well as gtube, remains nonverbal, abx off 02/02 remains vent, obtunded, no bleeding, some diarrhea, babb functional 02/03 no bleeding, remains on vent, no night sweats, meds noted Objective Objective Current Medications Medications (Trade) Dose Ordered Sig/[place] Route PRN Reason Start Time Stop Time Status Last Admin Dose Admin Al Hydroxide/Mg Hydroxide (Mylanta) 30 ml QIDPRN PRN GT stomach upset 01/14/20 16:45 02/13/20 16:44 Artificial Tears (Akwa-Tears) 1 drop EVERY 12 HOURS BOTH EYES 01/14/20 21:00 02/13/20 20:59 02/03/20 22:37 Dextrose (Dextrose 50%) 25 ml Q30M PRN IV Hypoglycemia 01/14/20 16:45 04/13/20 16:44 01/20/20 09:08 Dextrose (Dextrose 50%) 50 ml Q30M PRN IV hypoglycemia 01/14/20 16:45 04/13/20 16:44 01/14/20 21:25 Diphenoxylate HCl/ Atropine (Lomotil) 2.5 mg Q4H PRN GT Diarrhea 01/30/20 10:00 02/21/20 11:59 02/01/20 09:17 Insulin Aspart (NovoLOG) No Dose Q6HR SUBQ 01/14/20 18:00 04/13/20 17:59 02/04/20 06:04 Lactobacillus Acidophilus (Culturelle) 1 tab TWICE A DAY GT 01/31/20 18:00 04/30/20 17:59 02/03/20 18:15 Loperamide HCl (Imodium) 2 mg Q6H PRN GT Diarrhea 01/28/20 14:18 02/27/20 14:17 02/02/20 05:58 Metoclopramide HCl (Reglan) 5 mg Q8H IVP 01/26/20 10:00 02/25/20 09:59 02/04/20 02:15 Ondansetron HCl (Zofran) 4 mg Q6H PRN IVP Nausea & Vomiting 01/26/20 09:15 02/25/20 09:14 Pantoprazole (Protonix) 40 mg DAILY IVP 01/20/20 09:00 02/19/20 08:59 02/03/20 09:31 Sodium Bicarbonate 100 ml/Dextrose/ Electrolytes 1,100 ml @ 100 mls/hr Q11H IV 01/28/20 14:00 02/27/20 13:59 02/03/20 23:42 Sodium Hypochlorite (Dakin's Half Strength) 1 applic DAILY TOPIC 01/15/20 09:00 02/14/20 08:59 02/03/20 09:32 Sodium Citrate (Bicitra) 30 ml EVERY 6 HOURS GT 01/20/20 18:00 02/19/20 17:59 02/04/20 06:02 Zinc Sulfate (Zinc Sulfate) 220 mg DAILY GT 01/15/20 09:00 04/14/20 08:59 02/03/20 09:31 Last 24 Hour Vital Signs Date Time Temp Pulse Resp B/P (MAP) Pulse Ox O2 Delivery O2 Flow Rate FiO2 02/04/20 04:00 30 02/04/20 03:12 77 24 30 02/04/20 00:00 Mechanical Ventilator 02/04/20 00:00 76 02/04/20 00:00 98.4 78 24 138/70 (92) 96 02/04/20 00:00 30 02/03/20 22:55 81 24 30 02/03/20 20:00 30 02/03/20 20:00 97.9 74 24 143/78 (99) 99 02/03/20 20:00 75 02/03/20 20:00 Mechanical Ventilator 02/03/20 18:55 79 24 30 02/03/20 16:00 98.9 80 18 128/84 (99) 97 6/22/20 16:00 Mechanical Ventilator 02/03/20 16:00 30 02/03/20 16:00 80 02/03/20 14:58 80 24 30 02/03/20 12:00 98.0 83 18 140/56 (84) 97 02/03/20 12:00 30 02/03/20 12:00 82 02/03/20 12:00 Mechanical Ventilator 02/03/20 10:53 85 24 30 02/03/20 08:00 75 02/03/20 08:00 30 02/03/20 08:00 Mechanical Ventilator 02/03/20 08:00 98.8 74 18 155/79 (104) 97 02/03/20 07:03 75 24 30 02/03/20 04:00 71 02/03/20 04:00 30 02/03/20 04:00 Mechanical Ventilator 02/03/20 04:00 98.1 60 20 107/74 (85) 99 02/03/20 03:10 68 24 30 02/03/20 00:00 Mechanical Ventilator 02/03/20 00:00 96.7 60 24 145/78 (100) 100 02/02/20 23:00 64 24 30 02/02/20 20:00 30 02/02/20 20:00 96.6 63 24 151/83 (105) 100 02/02/20 20:00 Mechanical Ventilator 02/02/20 20:00 63 02/02/20 19:27 66 24 30 02/02/20 16:01 61 02/02/20 16:00 96.4 65 24 152/88 (109) 100 02/02/20 16:00 Mechanical Ventilator 02/02/20 16:00 30 02/02/20 15:05 62 24 30 02/02/20 12:00 30 02/02/20 12:00 96.6 65 24 148/85 (106) 100 02/02/20 12:00 Mechanical Ventilator 02/02/20 12:00 65 02/02/20 11:10 64 24 30 02/02/20 08:00 64 02/02/20 08:00 96.3 67 24 156/87 (110) 100 02/02/20 08:00 30 02/02/20 08:00 Mechanical Ventilator 02/02/20 07:10 61 24 30 Intake and Output 02/03/20 02/04/20 19:00 07:00 Intake Total 1794 ml 996 ml Output Total 350 ml Balance 1444 ml 996 ml Intake Free Water 200 ml IV Total 1100 ml 700 ml Tube Feeding 444 ml 296 ml Other 50 ml Output Urine Total 350 ml # Bowel Movements 5 1 Labs Test 02/03/20 03:38 White Blood Count 18.0 K/UL (4.8-10.8) Red Blood Count 3.09 M/UL (4.70-6.10) Hemoglobin 8.9 G/DL (14.2-18.0) Hematocrit 27.8 % (42.0-52.0) Mean Corpuscular Volume 90 FL (80-99) Mean Corpuscular Hemoglobin 28.8 PG (27.0-31.0) Mean Corpuscular Hemoglobin Concent 32.0 G/DL (32.0-36.0) Red Cell Distribution Width 18.3 % (11.6-14.8) Platelet Count 128 K/UL (150-450) Mean Platelet Volume 13.2 FL (6.5-10.1) Neutrophils (%) (Auto) % (45.0-75.0) Lymphocytes (%) (Auto) % (20.0-45.0) Monocytes (%) (Auto) % (1.0-10.0) Eosinophils (%) (Auto) % (0.0-3.0) Basophils (%) (Auto) % (0.0-2.0) Differential Total Cells Counted 100 Neutrophils % (Manual) 83 % (45-75) Lymphocytes % (Manual) 10 % (20-45) Monocytes % (Manual) 6 % (1-10) Eosinophils % (Manual) 1 % (0-3) Basophils % (Manual) 0 % (0-2) Band Neutrophils 0 % (0-8) Platelet Estimate Decreased Platelet Morphology Normal Hypochromasia 1+ Anisocytosis 1+ Sodium Level 147 MMOL/L (136-145) Potassium Level 3.7 MMOL/L (3.5-5.1) Chloride Level 106 MMOL/L (98-107) Carbon Dioxide Level 29 MMOL/L (21-32) Anion Gap 12 mmol/L (5-15) Blood Urea Nitrogen 113 mg/dL (7-18) Creatinine 4.2 MG/DL (0.55-1.30) Estimat Glomerular Filtration Rate 18.1 mL/min (>60) Glucose Level 176 MG/DL (74-106) Calcium Level 8.4 MG/DL (8.5-10.1) Height (Feet): 5 Height (Inches): 5.00 Weight (Pounds): 185 Objective Physical Exam: Vitals: reviewed General: NAD ++obtunded HEENT: nc, at, mouth guard+ Neck: supple++trach Chest: clear breath sounds bilaterally Cardiovascular: RRR, no s3, s4 Abdomen/GI: soft, nontender, nd ++gtube, rectal tube+ Extremities: no cce, normal range of motion, ++ Spasticity in the left upper extremity. Flaccid on the right, scrotal blisters++ Neuro: nonfocal : babb+ Wilmer Turner MD Feb 04, 2020 07:09
[2020-02-04 08:00] VITALS: BP 134/78
[2020-02-04] MEDS: Lactobacillus-GG tablet GT SCH (09:05)
[2020-02-04] MEDS: Dakin's 0.25% (Half Strength) 16oz TOPIC SCH (09:06)
[2020-02-04] MEDS: Zinc Sulfate 220mg GT SCH (09:06)
[2020-02-04] MEDS: Pantoprazole Inj IVP SCH (09:06)
--- NOTE | 2020-02-04 09:31 | General Progress Note ---
Assessment/Plan Assessment/Plan: sepsis anemia GIB thrombocytopenia hyponatremia ARF DM dysphagia with GT s/p EGD/PEG GTF will resume lomotil prn imodium prn ppi elevated LFTS>>> stable us reviewed fu abd CT, reviewed protonix daily on Imodium will fu Subjective ROS Limited/Unobtainable: No Allergies: Coded Allergies: No Known Allergies (Unverified , 10/07/19) Objective Last 24 Hour Vital Signs Date Time Temp Pulse Resp B/P (MAP) Pulse Ox O2 Delivery O2 Flow Rate FiO2 02/04/20 06:41 80 24 30 02/04/20 04:00 30 02/04/20 04:00 Mechanical Ventilator 02/04/20 04:00 98.6 74 24 127/75 (92) 97 02/04/20 03:12 77 24 30 02/04/20 03:00 73 02/04/20 00:00 Mechanical Ventilator 02/04/20 00:00 76 02/04/20 00:00 98.4 78 24 138/70 (92) 96 02/04/20 00:00 30 02/03/20 22:55 81 24 30 02/03/20 20:00 30 02/03/20 20:00 97.9 74 24 143/78 (99) 99 02/03/20 20:00 75 02/03/20 20:00 Mechanical Ventilator 02/03/20 18:55 79 24 30 02/03/20 16:00 98.9 80 18 128/84 (99) 97 02/03/20 16:00 Mechanical Ventilator 02/03/20 16:00 30 02/03/20 16:00 80 02/03/20 14:58 80 24 30 02/03/20 12:00 98.0 83 18 140/56 (84) 97 02/03/20 12:00 30 02/03/20 12:00 82 02/03/20 12:00 Mechanical Ventilator 02/03/20 10:53 85 24 30 Intake and Output 02/03/20 02/04/20 19:00 07:00 Intake Total 1794 ml 1567 ml Output Total 350 ml 300 ml Balance 1444 ml 1267 ml Intake Free Water 200 ml 60 ml IV Total 1100 ml 1100 ml Tube Feeding 444 ml 407 ml Other 50 ml Output Urine Total 350 ml 300 ml # Bowel Movements 5 4 Height (Feet): 5 Height (Inches): 5.00 Weight (Pounds): 186 General Appearance: no apparent distress EENT: normal ENT inspection Neck: supple Cardiovascular: normal rate Respiratory/Chest: decreased breath sounds Abdomen: hypoactive bowel sounds Extremities: non-tender Toni Mckenzie MD Feb 04, 2020 09:31
--- NOTE | 2020-02-04 10:25 | Infectious Diseases Prog Note ---
Assessment/Plan Assessment/Plan antibiotics : none A 1. providencia, klebsiella, e.coli pneumonia s/p rx 2. renal failure 3. respiratory failure 4. intracranial hemorrhage 5. paraplegia 6. leucocytosis improving 7. COVID 19 test negative x 3 8. gangrene of feet bilaterally P 1. continue off antibiotics 2. will follow up cultures Subjective ROS Limited/Unobtainable: Yes Allergies: Coded Allergies: No Known Allergies (Unverified , 10/07/19) Objective Vital Signs Last 24 Hour Vital Signs Date Time Temp Pulse Resp B/P (MAP) Pulse Ox O2 Delivery O2 Flow Rate FiO2 02/04/20 08:00 97.9 77 18 134/78 (96) 100 02/04/20 06:41 80 24 30 02/04/20 04:00 30 02/04/20 04:00 Mechanical Ventilator 02/04/20 04:00 98.6 74 24 127/75 (92) 97 02/04/20 03:12 77 24 30 02/04/20 03:00 73 02/04/20 00:00 Mechanical Ventilator 02/04/20 00:00 76 02/04/20 00:00 98.4 78 24 138/70 (92) 96 02/04/20 00:00 30 02/03/20 22:55 81 24 30 02/03/20 20:00 30 02/03/20 20:00 97.9 74 24 143/78 (99) 99 02/03/20 20:00 75 02/03/20 20:00 Mechanical Ventilator 02/03/20 18:55 79 24 30 02/03/20 16:00 98.9 80 18 128/84 (99) 97 02/03/20 16:00 Mechanical Ventilator 02/03/20 16:00 30 02/03/20 16:00 80 02/03/20 14:58 80 24 30 02/03/20 12:00 98.0 83 18 140/56 (84) 97 02/03/20 12:00 30 02/03/20 12:00 82 02/03/20 12:00 Mechanical Ventilator 02/03/20 10:53 85 24 30 Height (Feet): 5 Height (Inches): 5.00 Weight (Pounds): 186 HEENT: status post trach Respiratory/Chest: lungs clear Cardiovascular: normal rate, regular rhythm, no gallop/murmur Abdomen: soft, non tender, other - GT Extremities: no edema, other - necrotic feet Microbiology Date/Time Source Procedure Growth Status 02/04/20 09:48 Nasopharynx SARS-CoV-2 RdRp Gene Assay - Final Complete Current Medications Medications (Trade) Dose Ordered Sig/[place] Route PRN Reason Start Time Stop Time Status Last Admin Dose Admin Al Hydroxide/Mg Hydroxide (Mylanta) 30 ml QIDPRN PRN GT stomach upset 01/14/20 16:45 02/13/20 16:44 Artificial Tears (Akwa-Tears) 1 drop EVERY 12 HOURS BOTH EYES 01/14/20 21:00 02/13/20 20:59 02/04/20 09:05 Dextrose (Dextrose 50%) 25 ml Q30M PRN IV Hypoglycemia 01/14/20 16:45 04/13/20 16:44 01/20/20 09:08 Dextrose (Dextrose 50%) 50 ml Q30M PRN IV hypoglycemia 01/14/20 16:45 04/13/20 16:44 01/14/20 21:25 Diphenoxylate HCl/ Atropine (Lomotil) 2.5 mg Q4H PRN GT Diarrhea 01/30/20 10:00 02/21/20 11:59 02/01/20 09:17 Insulin Aspart (NovoLOG) No Dose Q6HR SUBQ 01/14/20 18:00 04/13/20 17:59 02/04/20 06:04 Lactobacillus Acidophilus (Culturelle) 1 tab TWICE A DAY GT 01/31/20 18:00 04/30/20 17:59 02/04/20 09:05 Loperamide HCl (Imodium) 2 mg Q6H PRN GT Diarrhea 01/28/20 14:18 02/27/20 14:17 02/02/20 05:58 Metoclopramide HCl (Reglan) 5 mg Q8H IVP 01/26/20 10:00 02/25/20 09:59 02/04/20 09:34 Ondansetron HCl (Zofran) 4 mg Q6H PRN IVP Nausea & Vomiting 01/26/20 09:15 02/25/20 09:14 Pantoprazole (Protonix) 40 mg DAILY IVP 01/20/20 09:00 02/19/20 08:59 02/04/20 09:06 Sodium Bicarbonate 100 ml/Dextrose/ Electrolytes 1,100 ml @ 100 mls/hr Q11H IV 01/28/20 14:00 02/27/20 13:59 02/03/20 23:42 Sodium Hypochlorite (Dakin's Half Strength) 1 applic DAILY TOPIC 01/15/20 09:00 02/14/20 08:59 02/04/20 09:06 Sodium Citrate (Bicitra) 30 ml EVERY 6 HOURS GT 01/20/20 18:00 02/19/20 17:59 02/04/20 06:02 Zinc Sulfate (Zinc Sulfate) 220 mg DAILY GT 01/15/20 09:00 04/14/20 08:59 02/04/20 09:06 Tony Apple MD Feb 04, 2020 10:25
[2020-02-04] MEDS: D5W IV SCH (11:12)
[2020-02-04] MEDS: KCL IV SCH (11:12)
[2020-02-04] MEDS: SODIUM BICARBONATE IV SCH (11:12)
[2020-02-04 12:00] VITALS: BP 132/78
--- NOTE | 2020-02-04 12:17 | Nephrology Progress Note ---
Assessment/Plan Problem List: (1) Respiratory failure (2) ARF (acute renal failure) (3) Hyponatremia (4) Hyperkalemia (5) Upper GI bleed (6) Pressure sore on sacrum (7) Diarrhea (8) Severe malnutrition Plan diarrhea, reorder iv fluids,BUN/creatinine 70/.91 11/2019, enteral hydration , reji likely from infection, severe hypoalbuminemia and anasarca with poor prognosis Na higher iv adjusted, bicitra started for acidosis, add bicarb , serum bicarb better still large fluid losses from diarrhea Subjective ROS Limited/Unobtainable: Yes Objective Objective Last 24 Hour Vital Signs Date Time Temp Pulse Resp B/P (MAP) Pulse Ox O2 Delivery O2 Flow Rate FiO2 02/04/20 10:39 79 24 30 02/04/20 08:00 97.9 77 18 134/78 (96) 100 02/04/20 08:00 72 02/04/20 08:00 30 02/04/20 08:00 Mechanical Ventilator 02/04/20 06:41 80 24 30 02/04/20 04:00 30 02/04/20 04:00 Mechanical Ventilator 02/04/20 04:00 98.6 74 24 127/75 (92) 97 02/04/20 03:12 77 24 30 02/04/20 03:00 73 02/04/20 00:00 Mechanical Ventilator 02/04/20 00:00 76 02/04/20 00:00 98.4 78 24 138/70 (92) 96 02/04/20 00:00 30 02/03/20 22:55 81 24 30 02/03/20 20:00 30 02/03/20 20:00 97.9 74 24 143/78 (99) 99 02/03/20 20:00 75 02/03/20 20:00 Mechanical Ventilator 02/03/20 18:55 79 24 30 02/03/20 16:00 98.9 80 18 128/84 (99) 97 02/03/20 16:00 Mechanical Ventilator 02/03/20 16:00 30 02/03/20 16:00 80 02/03/20 14:58 80 24 30 Intake and Output 02/03/20 02/04/20 19:00 07:00 Intake Total 1794 ml 1567 ml Output Total 350 ml 300 ml Balance 1444 ml 1267 ml Intake Free Water 200 ml 60 ml IV Total 1100 ml 1100 ml Tube Feeding 444 ml 407 ml Other 50 ml Output Urine Total 350 ml 300 ml # Bowel Movements 5 4 Height (Feet): 5 Height (Inches): 5.00 Weight (Pounds): 186 General Appearance: lethargic, other - on vent Cardiovascular: regular rhythm Respiratory/Chest: crackles/rales Abdomen: soft Extremities: moderate edema Neurologic: unresponsive Martin Yee MD Feb 04, 2020 12:17
[2020-02-04] MEDS ORDERED: D5W IV SCH (12:30)
[2020-02-04] MEDS ORDERED: KCL IV SCH (12:30)
[2020-02-04] MEDS ORDERED: SODIUM BICARBONATE IV SCH (12:30)
--- NOTE | 2020-02-04 13:33 | Pulmonology Progress Note ---
Subjective ROS Limited/Unobtainable: Yes Constitutional: Denies: fever Gastrointestinal/Abdominal: Reports: diarrhea Allergies: Coded Allergies: No Known Allergies (Unverified , 10/07/19) All Systems: reviewed and negative except above Subjective care noted on vent renal function poor labs noted no changes noted Objective Last 24 Hour Vital Signs Date Time Temp Pulse Resp B/P (MAP) Pulse Ox O2 Delivery O2 Flow Rate FiO2 02/04/20 10:39 79 24 30 02/04/20 08:00 97.9 77 18 134/78 (96) 100 02/04/20 08:00 72 02/04/20 08:00 30 02/04/20 08:00 Mechanical Ventilator 02/04/20 06:41 80 24 30 02/04/20 04:00 30 02/04/20 04:00 Mechanical Ventilator 02/04/20 04:00 98.6 74 24 127/75 (92) 97 02/04/20 03:12 77 24 30 02/04/20 03:00 73 02/04/20 00:00 Mechanical Ventilator 02/04/20 00:00 76 02/04/20 00:00 98.4 78 24 138/70 (92) 96 02/04/20 00:00 30 02/03/20 22:55 81 24 30 02/03/20 20:00 30 02/03/20 20:00 97.9 74 24 143/78 (99) 99 02/03/20 20:00 75 02/03/20 20:00 Mechanical Ventilator 02/03/20 18:55 79 24 30 02/03/20 16:00 98.9 80 18 128/84 (99) 97 02/03/20 16:00 Mechanical Ventilator 02/03/20 16:00 30 02/03/20 16:00 80 02/03/20 14:58 80 24 30 Intake and Output 02/03/20 02/04/20 19:00 07:00 Intake Total 1794 ml 1567 ml Output Total 350 ml 300 ml Balance 1444 ml 1267 ml Intake Free Water 200 ml 60 ml IV Total 1100 ml 1100 ml Tube Feeding 444 ml 407 ml Other 50 ml Output Urine Total 350 ml 300 ml # Bowel Movements 5 4 Objective WDWN trach clear breath sounds bilaterally without rhonchi or wheeze [id number] without MRG NABS nontender no HSM no CC edema poor LOC reviewed and edited Microbiology Date/Time Source Procedure Growth Status 02/04/20 09:48 Nasopharynx SARS-CoV-2 RdRp Gene Assay - Final Complete Current Medications Medications (Trade) Dose Ordered Sig/[place] Route PRN Reason Start Time Stop Time Status Last Admin Dose Admin Al Hydroxide/Mg Hydroxide (Mylanta) 30 ml QIDPRN PRN GT stomach upset 01/14/20 16:45 02/13/20 16:44 Artificial Tears (Akwa-Tears) 1 drop EVERY 12 HOURS BOTH EYES 01/14/20 21:00 02/13/20 20:59 02/04/20 09:05 Dextrose (Dextrose 50%) 25 ml Q30M PRN IV Hypoglycemia 01/14/20 16:45 04/13/20 16:44 01/20/20 09:08 Dextrose (Dextrose 50%) 50 ml Q30M PRN IV hypoglycemia 01/14/20 16:45 04/13/20 16:44 01/14/20 21:25 Diphenoxylate HCl/ Atropine (Lomotil) 2.5 mg Q4H PRN GT Diarrhea 01/30/20 10:00 02/21/20 11:59 02/01/20 09:17 Insulin Aspart (NovoLOG) No Dose Q6HR SUBQ 01/14/20 18:00 04/13/20 17:59 02/04/20 12:18 Lactobacillus Acidophilus (Culturelle) 1 tab TWICE A DAY GT 01/31/20 18:00 04/30/20 17:59 02/04/20 09:05 Loperamide HCl (Imodium) 2 mg Q6H PRN GT Diarrhea 01/28/20 14:18 02/27/20 14:17 02/02/20 05:58 Metoclopramide HCl (Reglan) 5 mg Q8HR GT 02/04/20 14:00 03/05/20 13:59 Ondansetron HCl (Zofran) 4 mg Q6H PRN GT Nausea & Vomiting 02/04/20 12:45 03/05/20 12:44 Pantoprazole (Protonix) 40 mg DAILY IVP 01/20/20 09:00 02/19/20 08:59 02/04/20 09:06 Sodium Hypochlorite (Dakin's Half Strength) 1 applic DAILY TOPIC 01/15/20 09:00 02/14/20 08:59 02/04/20 09:06 Sodium Citrate (Bicitra) 30 ml EVERY 6 HOURS GT 01/20/20 18:00 02/19/20 17:59 02/04/20 12:32 Zinc Sulfate (Zinc Sulfate) 220 mg DAILY GT 01/15/20 09:00 04/14/20 08:59 02/04/20 09:06 Assessment/Plan Assessment/Plan IMPRESSION chronic respiratory failure Acute on chronic renal failure elevated K anemia GIB leukocytosis possible sepsis oral bleeding diarrhea transaminitis PLAN ID , GI and renal clearance vent as is monitor vitals full code/ per prognosis very poor for recovery off antibiotics poor candidate for HD dc to snf when bed available impression, plan, and exam edited and reviewed in detail care discussed with Lorenzo Chase MD Feb 04, 2020 13:33
[2020-02-04] MEDS ORDERED: Metoclopramide 10mg/10ml Liq GT SCH (14:00)
[2020-02-04 16:00] VITALS: BP 130/70
[2020-02-04] MEDS ORDERED: Tubing IV Secondary IV ONE (16:51)
[2020-02-04] MEDS ORDERED: NS 275ml ONE (16:51)
--- NOTE | 2020-02-04 18:39 | Surgery Progress Note ---
Surgery Progress Note Subjective Procedure Performed right femoral central venous catheter removal Additional Comments No acute events. Otherwise stable. Plan for discharge to facility today. Continue c-collar. Tube feeds as tolerated. Objective Last 24 Hour Vital Signs Date Time Temp Pulse Resp B/P (MAP) Pulse Ox O2 Delivery O2 Flow Rate FiO2 02/04/20 16:00 Mechanical Ventilator 02/04/20 16:00 30 02/04/20 16:00 78 02/04/20 16:00 97.2 77 18 130/70 (90) 100 02/04/20 14:38 78 24 30 02/04/20 12:00 77 02/04/20 12:00 Mechanical Ventilator 02/04/20 12:00 30 02/04/20 12:00 97.6 72 18 132/78 (96) 100 02/04/20 10:39 79 24 30 02/04/20 08:00 97.9 77 18 134/78 (96) 100 02/04/20 08:00 72 02/04/20 08:00 30 02/04/20 08:00 Mechanical Ventilator 02/04/20 06:41 80 24 30 02/04/20 04:00 30 02/04/20 04:00 Mechanical Ventilator 02/04/20 04:00 98.6 74 24 127/75 (92) 97 02/04/20 03:12 77 24 30 02/04/20 03:00 73 02/04/20 00:00 Mechanical Ventilator 02/04/20 00:00 76 02/04/20 00:00 98.4 78 24 138/70 (92) 96 02/04/20 00:00 30 02/03/20 22:55 81 24 30 02/03/20 20:00 30 02/03/20 20:00 97.9 74 24 143/78 (99) 99 02/03/20 20:00 75 02/03/20 20:00 Mechanical Ventilator 02/03/20 18:55 79 24 30 I&O Intake and Output 02/03/20 02/04/20 19:00 07:00 Intake Total 1794 ml 1567 ml Output Total 350 ml 300 ml Balance 1444 ml 1267 ml Intake Free Water 200 ml 60 ml IV Total 1100 ml 1100 ml Tube Feeding 444 ml 407 ml Other 50 ml Output Urine Total 350 ml 300 ml # Bowel Movements 5 4 Dressing: other Wound: other Drains: other Cardiovascular: RSR Respiratory: decreased breath sounds Abdomen: soft, present bowel sounds Extremities: edema, no cyanosis Plan Problems: (1) Hyponatremia (2) ARF (acute renal failure) (3) Hyperkalemia (4) Pressure sore on sacrum Assessment & Plan: Pt presented on admission with Sacral Pressure injury and Necrosis Both Both R lower ext, R foot and L foot. Generalized edema noted. Both upper ext noted to have multiple serous blisters ,some of which are weeping serous exudate. Full thickness Sacral Pressure Injury with undermined Borders. Base of wound is 75% loose necrotic tissue,25% bree. Bone exposure at base of wound. Area of necrosis noted at distal aspect of wound in space between wound and anus.Edges are macerated. Wound is malodorous.(L)9.5cm x (W)9.2cm x (D)2.9cm,undermining clockwise 10-3 by 3.8cm @12 o'clock. Scattered areas of hyperpigmentation noted to R and L clefts of buttocks. Unable to determine exudate as pt is continuously oozing large amt of semi soft black stool and leaking into wound because of close proximity to his rectum. At upper, R gluteal cheek is additional Pressure Injury with small amt Biofilm at base of wound. Edges are pink and adherent to base of wound. No exudate noted.(L)3cm x (W)2.6cm. Medially to distal Tibia,and extending to R foot is necrotic and malodorous.Wound is partially opened at posterior R tibia but is dry . L foot is necrotic and malodorous. No exudate noted. Tx.Plan: Cleanse Sacral wound with Dakin's 0.25% archana.. Loosely Pack wound with Dakin's moistened Kerlix.Apply Moisture Barrier Paste periwound.Cover with Optifoam drsg.Change Daily and PRN. Cleanse R lower ext and R foot with Dakin's 0.25% Archana. Cover wounds with ABD Pads.Wrap with Kerlix Daily and prn. Cleanse L foot Wounds with Dakin's 0.25% Archana. Cover wounds with ABD Pads and wrap with Kerlix Daily and prn. soft collar placed Continue wound care and collar as above upon discharge (5) Upper GI bleed Assessment & Plan: Patient with sepsis, abnormal labs, GI bleed, pending COVID eval. Labs noted. Exam reviewed. Chest x-ray noted as below. Discussed with GI. Plan for endoscopy once COVID status evaluated. Trend hemoglobin for now transfuse PRN. G-tube is functional and okay for medications and will plan tube feeds accordingly. No acute surgical intervention as patient is actively bleeding. Proton pump inhibitor recommended and Rx as written. Will follow with recommendations thank you for let me participate in patient's care plt low anemia prognosis guarded no active GI bleeding noted Status post PEG Tolerating tube feeds but still having diarrhea Difficult with rectal tube slides right out likely from spinal injury Anasarca stable No active bleeding worsening congestion line Free currently will monitor closely There is a tracheostomy in place. Vascularity is normal. Hazy densities in the lung bases may be layering effusions. Cardiac and mediastinal silhouette are within normal limits. The bony thorax appear unremarkable. line removed will monitor for bleeding IMPRESSION: Bibasilar hazy densities perhaps layering effusions. right fem line not functional noted manipulation as suture was dislodged. line replaced 1. Two or three gastric AVMs. 2. Ulcer with a small visible vessel, status post gold probe bipolar cauterization. DAILY ESTIMATED NEEDS: Needs based on Critical Care, Wounds, TR / 61kg 25-30 kcals/kg 4525-6818 total kcals 0.8-1.25 (increase w/ renal improvement) g protein/kg 49-76 g total protein 25-30 mL/kg 7727-2128 total fluid mLs NUTRITION DIAGNOSIS: * Swallowing difficulty R/T respiratory status, dysphagia as evidenced by trach/vent dep, PEG dep. * Increased kcal/prot intake needs R/T wound healing as evidenced by admtited w/ multiple wounds including full thickness wound @ sacrum, pressure Injury with small amt Biofilm at base of wound @ uppera R gluteal cheek, necrotic wound @ medial to distal Tibia,and extending to R foot and L foot * Altered nutrition related lab R/T TR as evidenced by elev BUN (215-> 96), elev creat (5.2->4.2), low Na (124 ->148), elev K (6.7 -> wnl) CURRENT TF:Nepro @ 37ml/hr x 24 hrs ENTERAL NUTRITION RECOMMENDATIONS: Nepro @ 37ml/hr x 24 hrs to provide 888ml, 1598kcal, 72g prot, 646ml free water * Maintain current TF -> rec Nepro at this time given TR (Creat 5.2-> 4.3) w/ elev K upon adm * HOB over 30 degrees/ water flush per MD W/ CONTINUED DIARRHEA, consider trial of elemental formula of Vital AF 1.2 @ goal rate of 45ml/hr x 24 hrs to provide 1080ml, 1296kcal, 81g prot, 876lm free water: will meet 85% est kcal and 106% est prot needs. -----> W/ non renal TF, monitor lytes closely (K wnl at this time, phos level not available) ADDITIONAL RECOMMENDATIONS: * Per SNF: HT=62" WT= 135lbs (12/25/19) * Monitor renal fxn and lytes (Creat 5.3 -> 4.1) -> check phos and mag (not checked since adm) * Wound healing: Once TF well tolerated at goal, add Ajay BID * Monitor for hypoglycemia: no further episodes (now 70's) * Add probiotics to help improve gut ewelina- + diarrhea -> consider trial of elemental TF of Vital AF Study is somewhat limited due to anasarca and overlying bowel gas, midline gastrostomy bandages. Gallbladder demonstrates sludge and tiny stones. The gallbladder wall is mildly thickened. Sonographic Velázquez sign could not be assessed. Common bile duct measures 4 mm in diameter. No intrahepatic biliary ductal dilatation. The liver is enlarged. It demonstrates normal echogenicity. No focal abnormality. Small amount of ascites fluid is seen at the anterior liver surface and adjacent to the gallbladder, left upper quadrant, and in the pelvis Portal vein and hepatic veins are patent. Pancreas is obscured by bowel gas. Spleen is unremarkable. Left kidney measures 11.4 cm in length. Right kidney measures 10.9 cm length. Both kidneys demonstrate normal echogenicity. There is no hydronephrosis. No focal abnormality . Abdominal aorta is partially obscured by bowel gas, visualized portions are non-aneurysmal . There are small bilateral pleural effusions (6) Severe malnutrition Assessment & Plan: emesis tf on hold monitor residuals Continue tube feeds as tolerated (7) Respiratory failure Additional Comments Time note does not reflect when patient was seen late entry Javid Singh Feb 04, 2020 18:39
--- NOTE | 2020-02-06 08:33 | Discharge Summary ---
Discharge Summary Discharge Summary _ DATE OF ADMISSION: 12/30/2019 DATE OF DISCHARGE: 02/04/2020 DISCHARGED BY: Dr. De Dios REASON FOR ADMISSION: 54 years old male, with past medical history of chronic respiratory failure, ventilator dependent, tracheostomy status, dysphagia, feeding by G-tube, paraplegia, renal failure, history of intracranial hemorrhage, anemia, was sent from subacute facility due to coffee-ground emesis. Upon evaluation in ED patient was found to be in acute renal failure, hyperkalemia and severe anemia . WBC 17.7, hemoglobin 7.8 ,hematocrit 24.4, platelet count 78. INR 1.3. Sodium 122, potassium 7.2. BUN 220, creatinine 5.3. Glucose 170. AST 63 ,ALT 50. Albumin 0.8. EKG revealed sinus rhythm , no acute ischemic changes. Slight peaking of T waves in V1 and V2 Chest x-ray revealed bibasilar hazy density, perhaps layering effusion. Patient was swabbed for COVID-19 and admitted to [facility] for further management. Patient admitted for upper GI bleeding,hyperkalemia ,acute renal failure, and hyponatremia. CONSULTANTS: ID specialist Dr. Apple GI specialist Dr. Mckenzie grant specialist Dr. Yee heating and blending supervisor/oncologist [facility] Dr. Singh [facility] COURSE: Patient admitted to [facility]. Ventilator support and trach care provided. Pulmonary toilet provided. Patient was followed-up with chest x-ray Patient was transfused with PRBC. Patient started on PPI. Hyperkalemia was treated. Venous duplex bilateral lower extremity revealed no evidence of acute DVT. Abdominal ultrasound revealed dependent sludge in the gallbladder with a slight wall thickening. Right renal cyst and cortical scaring. Small amount of ascites. Renal parameters and electrolytes were closely monitored . Patient was hydrated . Electrolytes further corrected as needed , nephrotoxic's were avoided. Bicarbonate provided for acidosis. Patient undergone upper endoscopy which revealed 2 or 3 gastric AVMs. Ulcer with a small visible vessel , status post gold probe bipolar cauterization. Tube feeding resumed. Tube feeding formula with goal rate and protein supplement provided as per registered dietitian recommendation. Patient continued on PPI. Patient undergone G-tube replacement on 01/07. During the initial upper endoscopy noted that patient had AVM in the proximal body of the stomach , and G tube was not in the proper place , but actually under the skin. Old G-tube was removed in number and a new G tube under endoscopic guidance was successfully placed. G-tube site care provided . Strict aspiration and reflux precaution maintained. Patient was able to tolerate tube feeding. Imodium provided for diarrhea. Stool for C. difficile was negative. Repeated abdominal ultrasound showed mild hepatomegaly, ascites and small bilateral pleural effusion , cholelithiasis. LFT were closely monitored, trending down. Hepatitis panel was negative. HIV test was nonreactive. Antibiotic provided as per ID specialist recommendation. Blood cultures were negative. Sputum culture revealed E. coli ESBL, Klebsiella pneumonia ESBL, and Pseudomonas. COVID-19 by PCR 12/30 and 01/02 was not detected.. Repeated blood cultures were negative as well. Sputum culture still demonstrated E. coli ESBL, Klebsiella ESBL and Providencia. Leukocytosis trending down. Patient completed antibiotic treatment while in the hospital. Medication Coordinator following. Leukocytosis was due to sepsis secondary to pneumonia , WBC was trending down. Anemia was due to upper GI bleeding anemia panel showed high ferritin. Prior to discharge platelet count 128. Hemoglobin 8.9, hematocrit 27.8. While in the hospital, patient undergone tramsfusion of total of 12 units of packed red blood cells and 1 unit of plateletpheresis. Renal parameters and electrolytes were closely monitor ed. BUN from 220 down to 113 and creatinine from 5.3 down to 4.2. Sodium and potassium stabilized. Patient was a poor candidate for hemodialysis. Wound care for sacral decubitus ulcer and bilateral feet necrosis provided as per surgeon recommendation; continue wound care at the facility. Patient clinically stabilized. Overall prognosis poor for recovery. Patient continued to be full code as per decision. Patient was subsequently transferred to half-way facility for continuation of care. FINAL DIAGNOSES: Sepsis Providencia, Klebsiella, E. coli pneumonia, status post treatment Chronic respiratory failure , ventilator dependent, with tracheostomy status Acute on chronic renal failure Hyperkalemia -resolved GI bleeding/due to AVMs and small ulcer Dysphagia, feeding by G-tube Status post EGD and new G-tube placement Anemia due to GI bleeding Thrombocytopenia Transaminitis History of intracranial hemorrhage Paraplegia Gangrene of feet Severe malnutrition Sacral decubitus ulcer , present on admission DISCHARGE MEDICATIONS: See Medication Reconciliation list. DISCHARGE INSTRUCTIONS: Patient was discharged to the half-way facility. Follow up with medical doctor at the facility. I have been assigned to dictate discharge summary for this account. I was not involved in the patient's management. Layla Perdomo NP Feb 06, 2020 08:33
== END 2020-02-04 16:52 | DRG 720 ==
LOC: EDBD 19:26 → EMR 19:46 → EDBEDREQ 21:12 → 2W 22:10 → EDBEDREQ 23:09 → UNDODISIN 01-14 16:18 → 2W 02-02 22:27
PROC: 5A1955Z Respiratory Ventilation, Greater than 96 Consecutive Hours (ICD-10-PCS; principal; 2019-12-30)
PROC: 06HM33Z Insertion of Infusion Device into Right Femoral Vein, Percutaneous Approach (ICD-10-PCS; 2020-01-01)
PROC: 06HM33Z Insertion of Infusion Device into Right Femoral Vein, Percutaneous Approach (ICD-10-PCS; 2020-01-06)
PROC: 0W3P8ZZ Control Bleeding in Gastrointestinal Tract, Via Natural or Artificial Opening Endoscopic (ICD-10-PCS; 2020-01-07)
PROC: 0DH63UZ Insertion of Feeding Device into Stomach, Percutaneous Approach (ICD-10-PCS; 2020-01-08)
PROC: 06PYX3Z Removal of Infusion Device from Lower Vein, External Approach (ICD-10-PCS; 2020-01-14)
DX: A41.9 Sepsis, unspecified organism (principal); K25.0 Acute gastric ulcer with hemorrhage; E87.5 Hyperkalemia; N17.9 Acute kidney failure, unspecified; E87.1 Hypo-osmolality and hyponatremia; J96.10 Chronic respiratory failure, unspecified whether with hypoxia or hypercapnia; D69.6 Thrombocytopenia, unspecified; J90 Pleural effusion, not elsewhere classified; E44.0 Moderate protein-calorie malnutrition; Z68.30 Body mass index [BMI] 30.0-30.9, adult; G82.20 Paraplegia, unspecified; Z93.0 Tracheostomy status; T85.528A Displacement of other gastrointestinal prosthetic devices, implants and grafts, initial encounter; J15.5 Pneumonia due to Escherichia coli; J15.0 Pneumonia due to Klebsiella pneumoniae; Z99.11 Dependence on respirator [ventilator] status; D50.0 Iron deficiency anemia secondary to blood loss (chronic); I69.265 Other paralytic syndrome following other nontraumatic intracranial hemorrhage, bilateral; Z74.01 Bed confinement status; E11.22 Type 2 diabetes mellitus with diabetic chronic kidney disease; N18.9 Chronic kidney disease, unspecified; E11.52 Type 2 diabetes mellitus with diabetic peripheral angiopathy with gangrene; I96 Gangrene, not elsewhere classified; L89.159 Pressure ulcer of sacral region, unspecified stage; R13.10 Dysphagia, unspecified; R31.9 Hematuria, unspecified; Z20.828 Contact with and (suspected) exposure to other viral communicable diseases; R19.7 Diarrhea, unspecified; Q27.33 Arteriovenous malformation of digestive system vessel
CPT/HCPCS: 36415; 71045; 74176; 76700; 80048; 80053; 82150; 82248; 82270; 82378; 82550; 82570; 82607; 82728; 82962; 83010; 83540; 83550; 83605; 83615; 83690; 84300; 84550; 85007; 85025; 85044; 85060; 85384; 85610; 85651; 85660; 85730; 86140; 86703; 86705; 86709; 86803; 86850; 86900; 86901; 86920; 87040; 87070; 87081; 87181; 87205; 87324; 87340; 87635; 93005; 93970; 94002; 94003; 94150; 96361; 96365; 96375; 99291; J1815; J2405; J2765; J3430; J7030; J8499; S5561; U0002